=== PATIENT | female | born 2000 | race Hispanic/Latino ===

== ENCOUNTER 2020-07-16 16:23 | Emergency (ER) | payer BC, MEDICAID ==
--- OUTSIDE RECORDS SUMMARY | 2020-07-16 16:26 | XMS REPORT | Continuity of Care Document ---
:2000 Author Organization [facility] t Address [address] [place] [address] Care Team Providers Name Role Phone Alexa WHATLEY Attending Clinician Problems This patient has no known problems. Allergies, Adverse Reactions, Alerts This patient has no known allergies or adverse reactions. Medications This patient has no known medications. Procedures This patient has no known procedures. Encounters Start End Encounter Admission Attending Care Care Encounter Source Date/Time Date/Time Type Type Clinicians Facility Department ID 2020-07-11 2020-07-11 Office WAYNE Liu [id number] 10:25:12 11:32:03 Visit Heri Mckeon [id number] Scott [id number] Rolando [id number] [address] Results This patient has no known results.
--- NOTE | 2020-07-16 17:42 | RAD REPORT ---
EXAM DESCRIPTION: RAD - Chest Single View - 07/16/2020 5:36 pm CLINICAL HISTORY: Chest pain;Dyspnea Chest pain. COMPARISON: <Comparisons> FINDINGS: Portable technique limits examination quality. The lungs are grossly clear. The heart is normal in size. No displaced fractures. IMPRESSION: No acute intrathoracic process suspected.
[2020-07-16 17:47] LABS: Urine Blood 3+ (Negative); Urine Glucose Negative (Negative); Urine Protein Negative (Negative); Urine pH 6.5 (5.0-7.0)
[2020-07-16] MEDS ORDERED: NA CHLORIDE 0.9% 1,000 ML ONE (17:51)
[2020-07-16 17:53] LABS: Absolute Lymphocytes (CBC) 0.7 K/uL (0.7-4.9); Basophils % 0.2 % (0-1.3); Hematocrit 37.2 % (36.0-45.0); Lymphocytes % 5.2 % (15.3-44.8); MPV 7.5 fL (7.6-11.3); RBC Red Blood Cell Count 4.23 M/uL (3.86-4.86)
[2020-07-16 17:56] LABS: ALT/SGPT 63 U/L (12-78); AST/SGOT 80 U/L (15-37); Alkaline Phosphatase 112 U/L (45-117); BUN Blood Urea Nitrogen 11 mg/dL (7-18); Bicarbonate 28 mmol/L (21-32); Bilirubin Direct 0.4 mg/dL (0-0.2); Bilirubin Total 0.8 mg/dL (0.2-1.0); Glucose Level 84 mg/dL (74-106); Potassium 3.6 mmol/L (3.5-5.1); Protein, Total 7.7 g/dL (6.4-8.2); Sodium Level 143 mmol/L (136-145)
[2020-07-16 18:07] LABS: Urine Bacteria <20 /HPF (<20); Urine RBC <5 /HPF (NONE SEEN)
[2020-07-16 18:24] LABS: SARS-COV-2 RT PCR NEGATIVE (NEGATIVE)
[2020-07-16 18:40] LABS: Blood Morphology Comment NOT SEEN (NOT SEEN); Platelet Estimate ADEQ; White Blood Cell Scan OK (OK)
--- NOTE | 2020-07-16 18:52 | RAD REPORT ---
EXAM DESCRIPTION: CTAbdomen Pelvis W Contrast - 07/16/2020 6:35 pm CLINICAL HISTORY: Abdominal pain. right flank pain COMPARISON: No comparisons TECHNIQUE: Biphasic CT imaging of the abdomen and pelvis was performed with 100 ml non-ionic IV cont rast. All CT scans are performed using dose optimization technique as appropriate and may include automated exposure control or mA/KV adjustment according to patient size. FINDINGS: The lung bases are clear. The liver contains a solid arterial phase enhancing mass measuring 21 mm in the medial right lobe. No intra or extrahepatic biliary tree dilatation is seen. Cholelithiasis. The spleen, adrenal glands, pancreas, and kidneys are normal. No bowel obstruction, free air, free fluid or abscess. The appendix is normal. No evidence of signi ficant lymphadenopathy. No suspicious bony findings. IMPRESSION: No acute intra-abdominal or pelvic finding. Cholelithiasis. 21 mm enhancing mass in the medial right lobe of the liver is likely benign such as FNH or adenoma. R ecommend followup nonemergent MRI liver protocol for further assessment.
--- NOTE | 2020-07-16 19:37 | RAD REPORT ---
EXAM DESCRIPTION: US - Abdomen Exam Limited - 07/16/2020 7:29 pm CLINICAL HISTORY: right flank pain Abdominal pain COMPARISON: No comparisons FINDINGS: The gallbladder demonstrates multiple shadowing gallstones. No pericholecystic fluid or ga llbladder wall thickening. The common bile duct is mildly prominent measuring 6 mm. The liver demonstrates no findings of intrahepatic biliary dilatation. IMPRESSION: Extensive cholelithiasis.
--- NOTE | 2020-07-16 20:13 | EDPHYS ---
Physician Documentation [facility] Name: Dany James Age: 20 yrs Sex: Female : 2000 Arrival Date: 07/16/2020 Time: 16:24 Bed 18 Private MD: ED Physician Elisa Bauman HPI: 07/16 17:03 This 20 yrs old Female presents to ER via Ambulatory with complaints of rn Breathing Difficulty, chest pain, flank pain. 17:03 The patient has shortness of breath at rest. Onset: The symptoms/episode began/occurred rn today. Duration: The symptoms are intermittent. The patient's shortness of breath is aggravated by nothing, is alleviated by nothing. Severity of symptoms: At their worst the symptoms were moderate in the emergency department the symptoms have improved markedly. The patient has not experienced similar symptoms in the past. The patient has not recently seen a physician. [place] at beach today, having right posterior/flank pain, assoc with chest pain and sob, feels generalized weakness, symptoms much better, nearly resolved prior to arrival after taking advil. No fever. No current chest pain/sob/cough/abd pain/vomiting/diarrhea. Denies . No sick contacts. + hx of anxiety but feels different from other anxiety episodes in past. . Historical: - Allergies: 16:28 No Known Allergies; sv - Home Meds: 19:32 None [Active]; sf - PMHx: 16:28 None; sv - PSHx: 16:28 None; sv - Immunization history:: Client reports having NOT received the Covid vaccine. - Social history:: Smoking status: Patient denies any tobacco usage or history of. - Family history:: not pertinent. - Hospitalizations: : No recent hospitalization is reported. ROS: 17:03 Constitutional: Negative for fever, chills, and weight loss, Eyes: Negative for injury, rn pain, redness, and discharge, Neck: Negative for injury, pain, and swelling, Cardiovascular: Negative for palpitations, and edema, Respiratory: Negative for cough, wheezing Abdomen/GI: Negative for abdominal pain, nausea, vomiting, diarrhea, and constipation, Back: + right flank pain : Negative for injury, bleeding, discharge, and swelling, MS/Extremity: Negative for injury and deformity, Skin: Negative for injury, rash, and discoloration, Neuro: Negative for headache, weakness, numbness, tingling, and seizure. Exam: 17:03 Constitutional: This is a well developed, well nourished patient who is awake, alert, rn and in no acute distress. Ambulatory to room without assistance. Nontoxic Head/Face: Normocephalic, atraumatic. Eyes: Pupils equal round and reactive to light, extra-ocular motions intact. Lids and lashes normal. Conjunctiva and sclera are non-icteric and not injected. Cornea within normal limits. Periorbital areas with no swelling, redness, or edema. ENT: dry MM Cardiovascular: Tachycardic, regular Respiratory: No increased work of breathing, no retractions or nasal flaring. Abdomen/GI: soft, non-tender Back: No spinal tenderness. + mild to moderate tenderness right CVA Skin: Warm, dry, no rash or cyanosis MS/ Extremity: Pulses equal, no cyanosis. Neurovascular intact. Full, normal range of motion. Equal circumference. Neuro: Awake and alert, GCS 15, oriented to person, place, time, and situation. Cranial nerves II-XII grossly intact. Motor strength 5/5 in all extremities. Sensory grossly intact. Cerebellar exam normal. Normal gait. Vital Signs: 16:29 BP 126 / 88; Pulse 117; Resp 18; Temp 98.8(O); Pulse Ox 100% ; Weight 61.69 kg; Height sv 5 ft. 4 in. (162.56 cm); 18:06 BP 124 / 81; Pulse 102; Resp 18; Pulse Ox 100% on R/A; bw 19:00 BP 112 / 72; Pulse 86; Resp 18; Pulse Ox 100% ; sf 16:29 Body Mass Index 23.34 (61.69 kg, 162.56 cm) sv MDM: 16:49 Patient medically screened. rn 18:59 Transition of care: After a detail discussion of the patient's case, care is rn transferred to Elisa Bauman MD. 20:11 Differential diagnosis: Anemia Anxiety Reaction pneumonia, reactive airway disease. ma2 Data reviewed: vital signs, nurses notes. Counseling: I had a detailed discussion with the patient and/or guardian regarding: the historical points, exam findings, and any diagnostic results supporting the discharge/admit diagnosis, the presence of at least one elevated blood pressure reading (>120/80) during this emergency department visit, the need for outpatient follow up. Response to treatment: the patient's symptoms have resolved after treatment. 07/16 17:03 Order name: CBC with Diff; Complete Time: 18:53 rn 07/16 17:03 Order name: Basic Metabolic Panel; Complete Time: 18:01 rn 07/16 17:03 Order name: Urine Microscopic Only; Complete Time: 18:26 rn 07/16 17:03 Order name: LFT's; Complete Time: 18:01 rn 07/16 17:03 Order name: XRAY Chest (1 view); Complete Time: 17:47 rn 07/16 17:47 Order name: Urine Dipstick-Ancillary; Complete Time: 18:01 EDMS 07/16 17:56 Order name: CBC Smear Scan; Complete Time: 18:53 EDMS 07/16 18:02 Order name: Urine --Ancillary (enter results); Complete Time: 19:48 eb 07/16 18:02 Order name: US Abdomen Limited; Complete Time: 19:48 rn 07/16 18:02 Order name: CT Abd/Pelvis - IV Contrast Only; Complete Time: 18:53 rn 07/16 18:24 Order name: SARS-COV-2 RT PCR; Complete Time: 18:35 EDMS 07/16 16:37 Order name: EKG; Complete Time: 16:37 sv 07/16 16:37 Order name: EKG - Nurse/Tech; Complete Time: 16:37 sv 07/16 17:03 Order name: IV Start; Complete Time: 17:28 rn 07/16 17:03 Order name: Urine Test (obtain specimen); Complete Time: 17:51 rn 07/16 17:03 Order name: Urine Dipstick-Ancillary (obtain specimen); Complete Time: 17:51 rn Administered Medications: 18:11 Drug: NS 0.9% 1000 ml Route: IV; Rate: 1000 ml; Site: right antecubital; bw 19:30 Follow up: IV Status: Completed infusion; IV Intake: 1000ml sf 21:14 Follow up: Response: No adverse reaction sf Disposition: 07/16/20 20:12 Discharged to Home. Impression: Calculus of gallbladder without cholecystitis. - Condition is Stable. - Discharge Instructions: Cholelithiasis. - Prescriptions for Zofran 4 mg Oral Tablet - take 1 tablet by ORAL route every 12 hours As needed; 20 tablet. Diclofenac Sodium 75 mg Oral Tablet Sustained Release - take 1 tablet by ORAL route 2 times per day; 30 tablet. - Medication Reconciliation Form, Thank You Letter, Antibiotic Education, Prescription Opioid Use, Work release form form. - Follow up: Russ Wiley MD; When: Tomorrow; Reason: If symptoms return. Signatures: Dispatcher [employer] EDPA Vaishali Sahni RN RN sv Nieto, Roman, MD MD rn Alzahri, Mohammad, MD MD ma2 Jeremiah Longoria RN RN sf Maria Luisa Clark RN RN bw Corrections: (The following items were deleted from the chart) 17:38 17:03 CORONAVIRUS+MR.LAB.BRZ ordered. [facility] EDPA 21:15 20:12 07/16/2020 20:12 Discharged to Home. Impression: Calculus of gallbladder without sf cholecystitis. Condition is Stable. Forms are Medication Reconciliation Form, Thank You Letter, Antibiotic Education, Prescription Opioid Use. Follow up: Russ Wiley; When: Tomorrow; Reason: If symptoms return. ma2
--- NOTE | 2020-07-16 20:13 | ER ---
Nurse's Notes [facility] Name: Dany James Age: 20 yrs Sex: Female : 2000 Arrival Date: 07/16/2020 Time: 16:24 Bed 18 Private MD: Diagnosis: Calculus of gallbladder without cholecystitis Presentation: 07/16 16:28 Chief complaint: Patient states: back pain, chest pain, dyspnea started [employer] [place] the [place]. Coronavirus screen: Client denies travel out of the [place] in the last 14 days. Client presents with at least one sign or symptom that may indicate coronavirus-19. Standard/surgical mask placed on the client. Provider contacted for isolation considerations. Ebola Screen: No symptoms or risks identified at this time. Risk Assessment: Do you want to hurt yourself or someone else? Patient reports no desire to harm self or others. Onset of symptoms was July 16, 2020. 16:28 Method Of Arrival: Ambulatory 16:28 Acuity: SRIDEVI 2 16:29 Initial Sepsis Screen: Does the patient meet any 2 criteria? HR > 90 bpm. No. Patient's sv initial sepsis screen is negative. Does the patient have a suspected source of infection? No. Patient's initial sepsis screen is negative. Historical: - Allergies: 16:28 No Known Allergies; sv - Home Meds: 19:32 None [Active]; sf - PMHx: 16:28 None; sv - PSHx: 16:28 None; sv - Immunization history:: Client reports having NOT received the Covid vaccine. - Social history:: Smoking status: Patient denies any tobacco usage or history of. - Family history:: not pertinent. - Hospitalizations: : No recent hospitalization is reported. Screenin:58 Abuse screen: Denies threats or abuse. Nutritional screening: No deficits noted. bw Tuberculosis screening: No symptoms or risk factors identified. Fall Risk None identified. Assessment: 16:29 Reassessment: Received VO from Dr Owusu for EKG. sv 16:58 Pain: Denies pain. Neuro: No deficits noted. Cardiovascular: Rhythm is sinus bw tachycardia. Respiratory: Reports shortness of breath Airway is patent Respiratory effort is even, unlabored, Breath sounds are clear. GI: No deficits noted. : No deficits noted. EENT: No deficits noted. 18:06 Reassessment: Patient appears in no apparent distress at this time. Patient and/or bw family updated on plan of care and expected duration. Pain level reassessed. Patient is alert, oriented x 3, equal unlabored respirations, skin warm/dry/pink. 19:31 General: Appears in no apparent distress. comfortable, Behavior is calm, cooperative. sf Neuro: No deficits noted. Level of Consciousness is awake, alert, Oriented to person, place, time, situation. Cardiovascular: No deficits noted. Patient's skin is warm and dry. Respiratory: No deficits noted. Airway is patent Respiratory effort is even, unlabored, Respiratory pattern is regular, symmetrical. GI: No deficits noted. No signs and/or symptoms were reported involving the gastrointestinal system. : No deficits noted. No signs and/or symptoms were reported regarding the genitourinary system. Vital Signs: 16:29 BP 126 / 88; Pulse 117; Resp 18; Temp 98.8(O); Pulse Ox 100% ; Weight 61.69 kg; Height sv 5 ft. 4 in. (162.56 cm); 18:06 BP 124 / 81; Pulse 102; Resp 18; Pulse Ox 100% on R/A; bw 19:00 BP 112 / 72; Pulse 86; Resp 18; Pulse Ox 100% ; sf 16:29 Body Mass Index 23.34 (61.69 kg, 162.56 cm) sv ED Course: 16:24 Patient arrived in ED. ds1 16:28 Triage completed. sv 16:29 Arm band placed on. sv 16:37 EKG completed in triage. Results shown to MD. sv 16:49 Surjit Owusu MD is Attending Physician. rn 16:57 Maria Luisa Clark RN is Primary Nurse. bw 16:58 Patient has correct armband on for positive identification. Call light in reach. Side bw rails up X 1. Pulse ox on. NIBP on. Warm blanket given. 16:58 No provider procedures requiring assistance completed. bw 17:36 XRAY Chest (1 view) In Process Unspecified. EDMS 17:39 COVID swab sent to lab. jp3 18:35 CT Abd/Pelvis - IV Contrast Only In Process Unspecified. EDMS 19:00 Attending Physician role handed off by Surjit Owusu MD ma2 19:00 Elisa Bauman MD is Attending Physician. ma2 19:07 Primary Nurse role handed off by Maria Luisa Clark RN 19:07 Jeremiah Longoria, RN is Primary Nurse. sf 19:29 Abdomen Limited In Process Unspecified. EDMS 20:11 Russ Wiley MD is Referral Physician. ma2 21:12 IV discontinued, intact, bleeding controlled, No redness/swelling at site. Pressure sf dressing applied. Administered Medications: 18:11 Drug: NS 0.9% 1000 ml Route: IV; Rate: 1000 ml; Site: right antecubital; bw 19:30 Follow up: IV Status: Completed infusion; IV Intake: 1000ml sf 21:14 Follow up: Response: No adverse reaction sf Intake: 19:30 IV: 1000ml; Total: 1000ml. sf Outcome: 20:12 Discharge ordered by . ma2 21:12 Discharged to home ambulatory. sf 21:12 Condition: stable 21:12 Discharge instructions given to patient, Instructed on discharge instructions, follow up and referral plans. medication usage, Demonstrated understanding of instructions, follow-up care, medications, Prescriptions given X 2. 21:15 Patient left the ED. sf Signatures: Dispatcher [employer] EDMO Vaishali Sahni RN RN Maria Teresa Cabrera ds1 Surjit Owusu MD MD rn Alzahri, Mohammad, MD MD me2 Abiel Franco 3 Jeremiah Longoria, SONIA SCOTT Maria Luisa Clark RN RN Corrections: (The following items were deleted from the chart) 16:37 16:28 Acuity: SRIDEVI 3 [facility]
[2020-07-16 21:21] VITALS: TEMP 98.8; O2SAT 100
[2020-07-16 21:24] VITALS: BP 112/72
--- NOTE | 2020-07-17 07:14 | EKG ---
Test Date: 2020-07-16 Test Time: 16:34:17 Physician In Private Practice: SV MEASUREMENT RESULTS: Intervals: Rate: 103 MI: 124 QRSD: 86 QT: 340 QTc: 445 Phenix: P: 56 MI: 124 QRS: 66 T: 8 INTERPRETIVE STATEMENTS: Sinus tachycardia Nonspecific T wave abnormality Abnormal ECG No previous ECG available for comparison Electronically Signed On 07-17-20 07:13:59 CDT by Erick Acosta
== END 2020-07-16 21:15 | disposition home or self-care (01) ==
LOC: ER 16:23
DX: K80.20 Calculus of gallbladder without cholecystitis without obstruction (principal); R06.02 Shortness of breath; Z20.822 Contact with and (suspected) exposure to COVID-19
CPT/HCPCS: 93005; 85025; 80048; 36415; 81025; 80076; 0240U; 74177; 71045; 76705; 96360; 99284; Q9967; J7030; 81003; 81015

== ENCOUNTER 2020-07-19 08:06 | Day surgery (SDC) | payer BC, MEDICAID ==
[2020-07-19 08:23] LABS: Amylase 51 U/L (25-115); Lipase 87 U/L (73-393)
[2020-07-19] MEDS ORDERED: Ringers Lactate 1,000 ML IV ONE (11:21)
[2020-07-19] MEDS: CEFOXITIN/SWI 1gm 1 GM/10 ML SYR ONE ×2 (12:54→13:20)
[2020-07-19] MEDS ORDERED: dexAMETHasone 10 MG/ML VIAL ONE (12:56)
[2020-07-19] MEDS ORDERED: propofoL 200 MG/20 ML VIAL IV ONE (12:56)
[2020-07-19] MEDS ORDERED: MIDAZOLAM HCL 2 MG/2 ML INJ ONE (12:56)
[2020-07-19] MEDS ORDERED: FENTANYL CITR 100 MCG/2 ML ONE ×2 (12:56→13:52)
[2020-07-19] MEDS ORDERED: LIDOCAINE 1% MPF 5 ML VIAL ONE (12:57)
[2020-07-19] MEDS ORDERED: LIDOCAINE 1% MPF 30 ML VIAL ONE (12:57)
[2020-07-19] MEDS ORDERED: ONDANSETRON 4 MG/2 ML VIAL ONE (12:57)
[2020-07-19] MEDS ORDERED: KETOROLAC 30 MG/ML INJ ONE (12:57)
[2020-07-19] MEDS ORDERED: ROCURONIUM 50 MG/5 ML VIAL IV ONE (12:57)
[2020-07-19] MEDS ORDERED: ESMOLOL HCL 10 ML IV ONE ×2 (13:55→13:57)
[2020-07-19] MEDS: Ringers Lactate 1,000 ML IV ONE ×3 (14:00→14:05)
--- NOTE | 2020-07-19 14:27 | P.BOP ---
Preoperative diagnosis: acute cholecystitis, symptomatic cholelithiasis Postoperative diagnosis: same Primary procedure: Laparoscopic cholecystectomy Monologist: Korina Olmos (David) Estimated blood loss: <10cc Specimen: gb Findings: as above Anesthesia: General Complications: None Transferred to: Recovery Room Condition: Good
[2020-07-19] MEDS ORDERED: GLYCOPYRROLATE 0.2 MG/ML SYR ONE (14:46)
[2020-07-19] MEDS ORDERED: NEOSTIGMINE 1 MG/ML -5 ML ONE (14:46)
[2020-07-19] MEDS: HYDROMORPHONE HCL 1 MG/ML INJ ONE ×2 (15:00→15:05)
[2020-07-19 15:01] VITALS: O2SAT 100
[2020-07-19] MEDS ORDERED: PROMETHAZINE INJ 25 MG/ML AMP ONE (15:06)
[2020-07-19] MEDS ORDERED: MEPERIDINE HCL 25 MG/ML SYR ONE (15:07)
[2020-07-19 15:25] VITALS: BP 106/64; TEMP 96.8
[2020-07-19] MEDS ORDERED: CODEINE 30MG/APAP 300MG TAB PO ONE (15:30)
[2020-07-19] MEDS ORDERED: CODEINE 30MG/APAP 300MG TAB ONE (15:49)
--- NOTE | 2020-07-19 19:01 | DS ---
Date of Discharge: 07/19/2020 Diagnosis: Acute cholecystitis, symptomatic cholelithiasis. Procedure: Laparoscopic cholecystectomy. Disposition: Home. Activity: As tolerated. No heavy lifting. Plan: Follow up in my office in 1 week. Call for appointment at [phone]. Keep area dry for 48 art rs, then may shower. Keep Steri-Strip intact. NATHANAEL/CHICHO Voice ID: [id number] Report ID: [id number]
--- NOTE | 2020-07-19 19:01 | OP ---
Date of Procedure: 07/19/2020 Surgeon: Russ Wiley MD Sales Branch Manager: Korina Olmos. Preoperative Diagnosis: Acute cholecystitis, symptomatic cholelithiasis. Postoperative Diagnosis: Acute cholecystitis, symptomatic cholelithiasis. Procedure: Laparoscopic cholecystectomy. Specimen: Gallbladder. Finding: As above. Anesthesia: General plus local. Indication: This is the case of a female, who comes to us with above diagnosis. Fully explained the benefits, alternatives, and risks of laparoscopic possible open cholecystectomy, which include, but not limited to infection, bleeding, damage to adjacent structures, anesthesia complication, choledoch olithiasis, bile leak, pancreatitis, PA, and even . She also understands this may not relieve a ny symptoms. She might need more than one surgical intervention. She understood, signed a consent. Procedure In Detail: The patient was brought to the operating room and placed in supine position. A nesthesia was done without complication. Abdominal area was prepped and draped in usual sterile fash ion. Marcaine 0.5% was injected for local anesthetic followed by sharp incision of the skin in the i nfraumbilical region. The incision was carried down to fascia, which was opened under direct vision. Peritoneum was encountered, opened under direct vision. Vicryl #1 placed inside the fascia. Hasso n trocar was carefully introduced. Pneumoperitoneum was obtained. I placed 3 more trocars, 5 mm eac h one of them, 1 in the epigastric area and 2 in the right upper quadrant using same technique under direct visualization. I put a grasper in the fundus of the gallbladder. There were many adhesions o f omentum to the gallbladder, so carefully we removed that with the help of Endo Shear and Bovie caut erizer. The infundibulum was visualized. We retracted the gallbladder in the inferolateral fashion exposing the triangle of Calot and obtaining critical view. Cystic duct and cystic artery were clear ly isolated, freed circumferentially, and a connection between those and the gallbladder was clearly identified. I proceeded to ligate those by using at least 3 clips proximal, 1 clip distal, and ligat ion in middle. Same was done with the cystic artery. A small little branch of the cystic artery was also ligated using same technique. Hepatic arteries and common bile duct were protected at all time . I removed the gallbladder from the liver using Bovie cauterizer and removed from abdominal cavity using EndoCatch through the umbilical incision. The area was inspected once again. No bile leak, no bleeding. Clips were intact. At that moment, I proceeded to remove the trocars under direct vision . Deflated pneumoperitoneum. Closed the fascia with #1 Vicryl. Irrigated subcutaneous tissue, clos ed with 3-0 chromic and skin in a subcuticular fashion with 3-0 chromic and Steri-Strips on top. Spo nge count and instrument counts were correct. The patient tolerated the procedure well. The patient was sent to recovery in stable condition. NATHANAEL/CHICHO Voice ID: [id number] Report ID: [id number]
== END 2020-07-19 16:40 | disposition home or self-care (01) ==
LOC: OR 08:06
PROVIDERS: ATTEND Surgery
PROC: 0FT44ZZ Resection of Gallbladder, Percutaneous Endoscopic Approach (ICD-10-PCS; principal; 2020-07-19 13:45)
DX: K80.10 Calculus of gallbladder with chronic cholecystitis without obstruction (principal)
CPT/HCPCS: 36415; 82150; 81025; 83690; 47562; J2704; J2250; J3010 ×2; J1100; J2175; J1170; J2710; J7120 ×2; J2405; 88304; J2550

== ENCOUNTER 2023-03-05 04:41 | Emergency (ER) | payer BC, SELFPAY ==
--- OUTSIDE RECORDS SUMMARY | 2023-03-05 05:08 | XMS REPORT | Continuity of Care Document ---
:2000 Author Organization [facility] t Address [address] [place] [address] [address] [place] [address] Care Team Providers Name Role Phone Ella Spann Primary Care Physician [phone] ROQUE WATTS Attending Clinician Unavailable ROQUE WATTS Attending Clinician Unavailable RAZ RILEY Attending Clinician Unavailable ELLA GTZ Attending Clinician Unavailable Ella Spann Attending Clinician Raz Riley MD Attending Clinician LORENA NARANJO Attending Clinician Unavailable Lorena Pitts Attending Clinician CHENG NOLASCO Attending Clinician Unavailable YOUSUF BIRCH Attending Clinician Unavailable YOUSUF BIRCH Attending Clinician Unavailable James Veloz MD Attending Clinician Juaquin Daniel MD Attending Clinician [phone] Jessi Arturo HUGHES Attending Clinician Doctor Unassigned, [place] Attending Clinician Unavailable ARTURO BOWEN Attending Clinician Unavailable Risk, [facility] Provider/High Attending Clinician Unavailabl e EDEMEKONG, PETER Attending Clinician Unavailable HAWA LEOS Attending Clinician Unavailable Hawa Leos MD Attending Clinician RAFAELA NOVOA Attending Clinician Unavailable Rafaela Novoa MD Attending Clinician SARAH SANTANA Attending Clinician Unavailable Sarah Santana CNM Attending Clinician Lab, [facility] Attending Clinician Unavailable Visit, Nurse Attending Clinician Unavailable Etahn Davidson PA-C Attending Clinician ADAN VIDAL Attending Clinician Unavailable ADAN VIDAL Attending Clinician Unavailable Risk, Pas-Rmchp Physician/High Attending Clinician UnavailAry Lane Attending Clinician 1, [facility] Us Room Attending Clinician Unavailable Nelsy Holden MD Attending Clinician [phone] NELSY HOLDEN Attending Clinician Unavailable Ary Amaya RN Attending Clinician Unavailable NICOL BLOUNT Attending Clinician Unavailable Nicol Blount MD Attending Clinician Unknown, Attending Attending Clinician Unavailable DEE GOMEZ Attending Clinician Unavailable ARY NORTON Attending Clinician Unavailable ANNABELLA SOSA Attending Clinician Unavailable Juan Antonio Pena MD Attending Clinician ETHAN DAVIDSON Attending Clinician Unavailable Pcp-Lab Attending Clinician Unavailable Isaak Castanon MD Attending Clinician ISAAK CASTANON Attending Clinician Unavailable 2, Adc Lab Attending Clinician Unavailable Lucinda Sanchez PA-C Attending Clinician LUCINDA SANCHEZ Attending Clinician Unavailable BRYAN SLATER Attending Clinician Unavailable BRYAN SLATER Attending Clinician Unavailable Faculty, [facility] Attending Clinician Unavailable Bryan Slater MD Attending Clinician Bryan Manuel RN Attending Clinician Unavailable EVELIN DICKERSON Attending Clinician Unavailable EVELIN DICKERSON Attending Clinician Unavailable GIGI BENITEZ Attending Clinician Unavailable GIGI BENITEZ Attending Clinician Unavailable MARQUIS HALL Attending Clinician Unavailable Rafael AGACNPMarquis Attending Clinician Olga WHATLEY, Brandon Attending Clinician Arpita SCOTT, Olamide Attending Clinician Unavailable Only, Ang Db Test Attending Clinician Unavailable Green DIRECTOR SEMICONDUCTOR, Lester Attending Clinician GREENLESTER Attending Clinician Unavailable Ebcathy DIRECTOR SEMICONDUCTOR, Stanley Attending Clinician STANLEY SOLORZANO Attending Clinician Unavailable Brandon Bowers MD Attending Clinician Jeanmarie DIRECTOR SEMICONDUCTOR, Annabella Attending Clinician Martin SCOTT, He Duncan Attending Clinician Unavailable Bhanu Holland Attending Clinician Unavailable Only, [facility] Main Test Attending Clinician Unavailable Call, [facility] Phone Attending Clinician Unavailable Kwesi SCOTT, Yolanda Taylor Attending Clinician Unavailable ADIN MANN Attending Clinician Unavailable Fercho Mercado DO Attending Clinician Adin Mann MD Attending Clinician HEBERT ACKERMAN Attending Clinician Unavailable Hebert Ackerman MD Attending Clinician Ivan Valdovinos Attending Clinician Unavailable Iesha Cast Attending Clinician Unavailable Nurse, [facility] Pob Immunization Attending Clinician Unavailable Naeem Slater DO Attending Clinician NAEEM SLATER Attending Clinician Unavailable Perry LANCE Attending Clinician Unavailable NatalioPerry Grigsby Attending Clinician Nurse, [facility] Attending Clinician Unavailable Carmelita White MD Attending Clinician Pob, [facility] Lab Main Attending Clinician Unavailable Nurse, [facility] Attending Clinician Unavailable CARMELITA WHITE Attending Clinician Unavailable Kailey Burk Attending Clinician Carole Dsouza MD Attending Clinician CAROLE DSOUZA Attending Clinician Unavailable Provider, [facility] Attending Clinician Unavailable UNKNOWN, ATTENDING Attending Clinician Unavailable Aly LOPEZ, Devin Attending Clinician Kia Naranjo DO Attending Clinician Only, [facility] Test Attending Clinician Unavailable June Gomez MD Attending Clinician JUNE GOMEZ Attending Clinician Unavailable Lab, [facility] Pob I Attending Clinician Unavailable DEVIN GANNON Attending Clinician Unavailable Nurse, [facility] Attending Clinician Unavailable GUS HERNANDEZ Attending Clinician Unavailable Jeff AUXILIARY ENGINEER, Farrukh F Attending Clinician Unavailable Gus Hernandez MD Attending Clinician Jeff AUXILIARY ENGINEER, Aixa Amador Attending Clinician Unavailable Cecilia PTSherie Attending Clinician Unavailable Juan PT, Donna Damon Attending Clinician Unavailable Natanael [facility], Norma Taylor Attending Clinician , [facility] Echo Room 1 - Attending Clinician Unavailable Myke WHATLEY, Ghazal Schwab Attending Clinician Xavier WHATLEY, Lili Attending Clinician LILI GONZALES Attending Clinician Unavailable Arsen Israel MD Attending Clinician Serena Berg RN Attending Clinician Aida Sumner MD Attending Clinician Room, [facility] Attending Clinician Unavailable Ultrasound, [facility] Attending Clinician Unavailable Jose David Monroe MD Attending Clinician JUNE PARTIDA Attending Clinician Unavailable JUNE PARTIDA Attending Clinician Unavailable June Partida MD Attending Clinician FELICITA RUTHERFORD Attending Clinician Unavailable Nurse, [facility] Attending Clinician Unavailable ROQUE WATTS Admitting Clinician Unavailable HAWA LEOS Admitting Clinician Unavailable JUNE PARTIDA Admitting Clinician Unavailable YOUSUF BIRCH Admitting Clinician Unavailable Hawa Leos MD Admitting Clinician RAFAELA NOVOA Admitting Clinician Unavailable Rafaela Novoa MD Admitting Clinician MARQUIS HALL Admitting Clinician Unavailable BRANDON BOWERS Admitting Clinician Unavailable ADIN MANN Admitting Clinician Unavailable Adin Mann MD Admitting Clinician HEBERT ACKERMAN Admitting Clinician Unavailable Columba Huber Admitting Clinician Unavailable Dank Kwok Admitting Clinician Unavailable BRANDON ESPINOZA Admitting Clinician Unavailable June Partida MD Admitting Clinician FELICITA RUTHERFORD Admitting Clinician Unavailable Payers Payer Name Policy Type Policy Number Effective Date Expiration Date S [place] [employer] [place] [id number] 2012 00:00:00 [facility] [id number] 2019 MEDICAID 00:00:00 Problems Condition Condition Condition Status Onset Resolution Last Treating Co mments Source Name Details Category Date Date Treatment Clinician Date Overweight Overweight Disease Active U nivers (BMI (BMI 9-27 ity of 25.0-29.9) 25.0-29.9[place] [facility] 37 weeks 37 weeks Disease Active Unive rs gestation gestation 8-04 ity of of of 00:00: [place] 00 [facility] Anemia of Anemia of Disease Active Uni vers mother in mother in 6-01 ity of , , [place] [facility] of [facility] of Disease Active U nivers depression depression 3-21 it y of 00:00: [place] [facility] History of History of Disease Active U nivers 3-08 ity of delivery delivery 00:00: [place] 00 [facility] Vaginal Vaginal Disease Active Univers discharge discharge 1-17 ity of in in 00:00: [place] 00 [facility] in first in first Branch trimester trimester 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 1-17 ity of 00:00: [place] 00 [facility] 9 weeks 9 weeks Disease Active 2022-0 Univers gestation gestation 1-17 ity of of of 00:00: [place] 00 [facility] Vaginal Vaginal Disease Active 2021- Univers discharge discharge 9-12 ity of 00:00: [place] 00 [facility] Screen for Screen for Disease Active U nivers sexually sexually 9-12 ity of transmitte transmitte [place] d diseases d diseases 00 Me dical Branch Vaginal Vaginal Disease Active Univers itching itching 9-12 ity of 00:00: [place] 00 Medical Branch 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:00: [place] tumor tumor 00 Medical Branch Right-side Right-side Disease Active U nivers d d 6-09 ity of nontraumat nontraumat 00:00[place] ic ic 00 Medical intracereb intracereb Br anch ral 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 Migraine Migraine Disease Active Unive rs variant variant 6-09 ity of with with 00:00: [place] headache headache 00 Medica l Branch Brain Brain Disease Active Univers tumor tumor 5-10 ity of 00:00: [place] 00 Medical Branch Acute Acute Disease Active 2020-04 Univers midline midline 2-08 ity of low back low back 00:00: [place] pain pain 00 Medical without without Branch sciatica sciatica Acute Acute Disease Active 2020-04 Univers bilateral bilateral 2-08 ity of thoracic thoracic 00:00: [place] back pain back pain 00 Medi minal Branch Bilateral Bilateral Disease Active 2020-04 Uni vers wrist pain wrist pain 2-08 it y of 00:00: [place] 00 Medical Branch Liver Liver Disease Active Univers mass, mass, 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 00:00: [place] 00 [facility] 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 nivers depression depression 5-19 it y of 00:00: [place] 00 Medical Branch Adjustment Adjustment Disease Active U nivers insomnia insomnia 5-14 ity of 00:00: [place] 00 Medical Branch Contusion Contusion Disease Active Uni vers of liver, of liver, 4-22 ity of sequela sequela 00:00: [place] 00 Medical Branch Disease Active Univers control control 4-06 ity of counseling counseling 00:00: [place] 00 [facility] Need for Need for Disease Active Unive rs HPV HPV 1-05 ity of vaccinatio vaccinatio 00:[place] n n 00 [facility] Grief Grief Disease Active 2019-04 Univers reaction reaction 2-23 ity of 00:00: [place] 00 Medical Branch Anxiety Anxiety Disease Active Univers 9-03 ity of 00:00: [place] [address] Medical Branch Atypical Atypical Disease Active Unive rs chest pain chest pain 8-13 it y of 00:00: [place] [address] Medical Branch Mid back Mid back Disease Active Unive rs pain pain 8-13 ity of 00:00: [place] [address] Medical Branch Sinus Sinus Disease Active 2019- Univers arrhythmia arrhythmia 8-13 it y of seen on seen on 00:00: [place] electrocar electrocar 00 Me dical diogram diogram Branch Supervisio Supervisio Disease Active U nivers n of high n of high 1-31 ity of risk risk 00:00: [place] 00 Medi minal in second in second Bran ch trimester trimester Feeling of Feeling of Disease Active U nivers incomplete incomplete 05-07 it y of bladder bladder 00:00: [place] emptying emptying 00 Medica l Branch Chronic Chronic Disease Active 2018-04 Univers migraine migraine 1-27 ity of without without 00:00: [place] aura aura 00 Medical without without Branch status status migrainosu migrainosu s, not s, not intractabl intractabl e e Hx of Hx of Disease Active 2018-04 Univers suicide suicide 0-30 ity of attempt attempt 00:00: [place] [address] Medical Branch Nausea Nausea Disease Active Univers 7-17 ity of 00:00: [place] [address] Medical Branch Anxiety Anxiety Disease Active Univers and and 7-16 ity of depression depression 00:[place]: [place] [facility] [place] Obesity Obesity Disease Active Univers (BMI (BMI 2-06 ity of 30-39.9) 30-39.9) 00:00: [address] Branch Allergies, Adverse Reactions, Alerts Allergy Allergy Status Severity Reaction(s) Onset Inactive Treating Comm ents Source Name Type Date Date Clinician No Known DA Active [facility] [address] NO KNOWN Drug Active Univers ALLERGIE Class ity of S [facility] [place] [facility] Social History Social Habit Start Date Stop Date Quantity Comments Source ASSERTION 2022-03-02 University of 00:00:00 [facility] [place] [facility] History of tobacco Passive smoker Un iversity of use [facility] [place] [facility] Gender identity Universit y of [facility] Sexual orientation Univer sity of [facility] History [facility] o f Alcohol Frequency [facility] edical Branch History [facility] o f Alcohol Std Drinks [place] [facility] [place] History [facility] o f Alcohol Binge [facility] al Branch Alcohol intake 2023-01-01 2023-01-01 Ex-drinker University 00:00:00 00:00:00 (finding) [facility] [place] [facility] History of Social 2022-12-02 2022-12-02 Univers ity of function 00:00:00 00:00:00 [facility] [place] [facility] Exposure to 2022-08-18 2022-08-28 Not sure University SARS-CoV-2 (event) 00:00:00 09:14:00 [facility] [place] [facility] Tobacco use and 2022-04-15 2022-04-15 Smokeless tobacco Un iversity of exposure 00:00:00 00:00:00 non-user [facility] [place] [facility] Alcohol Comment 2021-02-05 2021-02-05 social / Universit y of 00:00:00 00:00:00 occasional [facility] [place] [facility] Sex Assigned At [birth year] Universit y of 00:00:00 00:00:00 [facility] [place] [facility] Smoking Status Start Date Stop Date Source Never smoked tobacco [facility] Medications Ordered Filled Start Stop Current Ordering Indication Dosage Frequency Signature Comments Components Source Medication Medication Date Date Medication? Clinician (SIG) Name Name 2022- Take by Unive rs vit 8- 08-06 mouth. ity of no.124/iron 07:56: 00:00 [place] /folic 32 :00 Medical ( Branch VITAMIN ORAL) Yes [id number] 1{tbl} Take 1 Univers vitamin 8- tablet by ity of w/FA tablet 00:00: mouth [place] the Medical morning. Branch docusate Yes [id number] 200mg Take 2 U nivers 100 mg 8-06 capsules ity of capsule 00:00: by mouth [place] 00 once daily Medical as needed Branch for Constipati on. ferrous Yes [id number] 325mg Take 1 Un william sulfate 325 8-06 tablet by ity of mg (65 mg 00:00: [place] 00 the Medical tablet morning Branch and 1 tablet in the evening. ibuprofen 2022- Yes [id number] 600mg Take 1 Univers 600 mg 8-06 tablet by ity of tablet 00:00: mouth [place] 00 every 6 Medical (six) Branch hours as needed (Pain). Take with food or milk. 2022-0 Yes [id number] 1{tbl} Take 1 Univers vitamin 8-06 tablet by ity of w/FA tablet 00:00: mouth [place] 00 the Medical morning. Branch docusate 2022-0 Yes [id number] 200mg Take 2 U nivers 100 mg 8-06 capsules ity of capsule 00:00: by mouth [place] 00 once daily Medical as needed Branch for Constipati on. ferrous 2022-0 Yes [id number] 325mg Take 1 Un william sulfate 325 8-06 tablet by ity of mg (65 mg 00:00: [place] iron[place] 00 the Medical tablet morning Branch and 1 tablet in the evening. ibuprofen 2022-0 Yes [id number] 600mg Take 1 Univers 600 mg 8-06 tablet by ity of tablet 00:00: mouth [place] 00 every 6 Medical (six) Branch hours as needed (Pain). Take with food or milk. 2022-0 Yes [id number] 1{tbl} Take 1 Univers vitamin 8-06 tablet by ity of w/FA tablet 00:00: mouth [place] 00 the Medical morning. Branch docusate 2022-0 Yes [id number] 200mg Take 2 U nivers 100 mg 8-06 capsules ity of capsule 00:00: by mouth [place] 00 once daily Medical as needed Branch for Constipati on. ferrous 2022-0 Yes [id number] 325mg Take 1 Un william sulfate 325 8-06 tablet by ity of mg (65 mg 00:00: [place] iron[place] 00 the Medical tablet morning Branch and 1 tablet in the evening. ibuprofen 2022-0 Yes [id number] 600mg Take 1 Univers 600 mg 8-06 tablet by ity of tablet 00:00: mouth [place] 00 every 6 Medical (six) Branch hours as needed (Pain). Take with food or milk. 2022-0 Yes [id number] 1{tbl} Take 1 Univers vitamin 8-06 tablet by ity of w/FA tablet 00:00: mouth [place] 00 the Medical morning. Branch docusate 2022-0 Yes [id number] 200mg Take 2 U nivers 100 mg 8-06 capsules ity of capsule 00:00: by mouth [place] 00 once daily Medical as needed Branch for Constipati on. ferrous 2023-0 Yes [id number] 325mg Take 1 Un william sulfate 325 8-06 tablet by ity of mg (65 mg 00:00: [place] iron[place] 00 the Medical tablet morning Branch and 1 tablet in the evening. ibuprofen 2023-0 Yes [id number] 600mg Take 1 Univers 600 mg 8-06 tablet by ity of tablet 00:00: mouth [place] 00 every 6 Medical (six) Branch hours as needed (Pain). Take with food or milk. 2022-0 Yes [id number] 1{tbl} Take 1 Univers vitamin 8-06 tablet by ity of w/FA tablet 00:00: mouth in [place] 00 the Medical morning. Branch docusate 2022-0 Yes [id number] 200mg Take 2 U nivers 100 mg 8-06 capsules ity of capsule 00:00: by mouth [place] 00 once daily Medical as needed Branch for Constipati on. ferrous 2022-0 Yes [id number] 325mg Take 1 Un william sulfate 325 8-06 tablet by ity of mg (65 mg 00:00: [place] iron[place] 00 the Medical tablet morning Branch and 1 tablet in the evening. ibuprofen 2022-0 Yes [id number] 600mg Take 1 Univers 600 mg 8-06 tablet by ity of tablet 00:00: mouth [place] 00 every 6 Medical (six) Branch hours as needed (Pain). Take with food or milk. 2022-0 Yes [id number] 1{tbl} Take 1 Univers vitamin 8-06 tablet by ity of w/FA tablet 00:00: mouth in [place] 00 the Medical morning. Branch docusate 2022-0 Yes [id number] 200mg Take 2 U nivers 100 mg 8-06 capsules ity of capsule 00:00: by mouth [place] 00 once daily Medical as needed Branch for Constipati on. ferrous 2023-0 Yes [id number] 325mg Take 1 Un william sulfate 325 8-06 tablet by ity of mg (65 mg 00:00: [place] iron[place] 00 the Medical tablet morning Branch and 1 tablet in the evening. ibuprofen 2023-0 Yes [id number] 600mg Take 1 Univers 600 mg 8-06 tablet by ity of tablet 00:00: mouth [place] 00 every 6 Medical (six) Branch hours as needed (Pain). Take with food or milk. 2022-0 Yes [id number] 1{tbl} Take 1 Univers vitamin 8-06 tablet by ity of w/FA tablet 00:00: mouth [place] 00 the Medical morning. Branch ferrous 2022-0 Yes [id number] 325mg Take 1 Un william sulfate 325 8-06 tablet by ity of mg (65 mg 00:00: [place] iron[place] 00 the Medical tablet morning Branch and 1 tablet in the evening. 2022-0 Yes [id number] 1{tbl} Take 1 Univers vitamin 8-06 tablet by ity of w/FA tablet 00:00: mouth in [place] 00 the Medical morning. Branch ferrous 2022-0 Yes [id number] 325mg Take 1 Un william sulfate 325 8-06 tablet by ity of mg (65 mg 00:00: [place] iron[place] 00 the Medical tablet morning Branch and 1 tablet in the evening. 2022-0 Yes [id number] 1{tbl} Take 1 Univers vitamin 8-06 tablet by ity of w/FA tablet 00:00: mouth [place] 00 the Medical morning. Branch ferrous 2022-0 Yes [id number] 325mg Take 1 Un william sulfate 325 8-06 tablet by ity of mg (65 mg 00:00: [place] iron[place] 00 the Medical tablet morning Branch and 1 tablet in the evening. docusate 2022-2022- No [id number] 200mg Take 2 Univers 100 mg 8- capsules ity of capsule 00:00: 00:00 by mouth [place] 00 :00 once daily Medical as needed Branch for Constipati on. ibuprofen 2022-0 3- No [id number] 600mg Take 1 Univers 600 mg 11-10- tablet by ity of tablet 00:00: 00:00 mouth [place] 00 :00 every 6 Medical (six) Branch hours as needed (Pain). Take with food or milk. docusate 2022-0 2022- No [id number] 200mg Take 2 Univers 100 mg 8-09 13- capsules ity of capsule 00:00: 00:00 by mouth [place] 00 :00 once daily Medical as needed Branch for Constipati on. ibuprofen 2022-0 2022- No [id number] 600mg Take 1 Univers 600 mg 11-10 tablet by ity of tablet 00:00: 00:00 mouth [place] 00 :00 every 6 Medical (six) Branch hours as needed (Pain). Take with food or milk. rho(D) 2022-0 Yes 300ug 300 mcg, Univer s immune 11-09 Intramuscu ity of globulin 16:32: lar, ONCE, [place] as (RHOGAM) 45 For 1 Medical syringe 300 dose, Branch mcg Conditiona l, Routine ibuprofen 2022-0 Yes 600mg 600 mg, Univ ers (IBU) 11-09 Oral, ity of tablet 600 16:32: Q6HPRN, [place] mg 41 Starting Medical on [facility] Branch 11/09/22 at 1132, Until Discontinu ed, Routine, Pain (scale 4-6) acetaminoph 2022-0 Yes 650mg 650 mg, Un william en 11-09 Oral, ity of (TYLENOL) 16:32: Q6HPRN, [place] tablet 650 41 Starting Medic al mg on [facility] Branch 11/09/22 at 1132, Until Discontinu ed, Routine, Pain (scale 1-3) diphenhydrA 2022-0 Yes 25mg 25 mg, Univ ers MINE 11-09 Oral, ity of (BENADRYL) 16:32: Q6HPRN, [place] tablet 25 41 Starting Medica l mg on [facility] Branch 11/09/22 at 1132, Until Discontinu ed, Routine, Sleep, Itching ondansetron 2022-0 Yes 4mg 4 mg, Slow Univers (ZOFRAN 11-09 IV Push, ity of (PF)) 16:32: Q8HPRN, [place] injection 4 41 Starting Medi minal mg on Sat Branch 11/09/22 at 1132, Until Discontinu ed, Routine, Nausea and Vomiting (N/V) simethicone 2022-0 Yes 160mg 160 mg, Un william (GAS RELIEF 11-09 Oral, ity of (SIMETHICON 16:32: PC+HSPRN, [place] E)) 41 Starting Medical chewable on [facility] Branch tablet 160 11/09/22 at mg 1132, Until Discontinu ed, Routine, Gas docusate 2022-0 Yes 200mg 200 mg, Unive rs (COLACE) 11-09 Oral, ity of capsule 200 16:32: QDAILYPRN, [place] mg 41 Starting Medical on Sat Branch 11/09/22 at 1132, Until Discontinu ed, Routine, Constipati on magnesium Yes 30mL 30 mL, Univer s hydroxide 8 Oral, ity of (MILK OF 16:32: QDAILYPRN, [place] as MAGNESIA) 41 Starting Medica l 400 mg/5 mL on Sat Branch suspension 11/09/22 at 30 mL 1132, Until Discontinu ed, Routine, Constipati on benzocaine- Yes Topical, Un william menthol 11-09 PRN, ity of (DERMOPLAST 16:32: Starting [place] 20-0.5 % 41 on Sat Medical topical 11/09/22 at Branch spray 1132, Until Discontinu ed, Routine, [facility]ineum discomfort [facility] mouth. ity of no.124/iron 07:49: [place] /folic 21 Medical ( Branch VITAMIN ORAL) PIB 2022- No Epidural, Univers ropivacaine 11-09-05 ONCE INTRA i ty of 0.2 % 06:35: 15:04 PROCEDURE, [place] (NAROPIN 00 :14 Starting Medical (PF)) on Sat Branch epidural 11/09/22 at infusion 0135, Until 11/09/22 at 1004, Routine, Intra-op lidocaine-e 2022- No Intravenou Univers pinephrine 11-09 08-05 s, ONCE ity o f (XYLOCAINE 06:34: 15:04 INTRA [place] W/EPINEPHRI 00 :14 PROCEDURE, [place]) 2 Starting Branch %-1:200,000 on Sat injection 11/09/22 at 0134, Until 11/09/22 at 1004, Routine, Intra-op lactated 2022- No 500mL at 999 Unive rs ringers IV 11-09 08-05 mL/hr, 500 it y of infusion 06:00: 06:45 mL, IV [place] 500 mL 00 :15 Infusion, Medical ONCE, 1 Branch dose, On 11/09/22 at 0100, Routine lactated 2022- No 500mL at 999 Unive rs ringers IV 11-09 mL/hr, 500 it y of infusion 05:12: 07:24 mL, IV [place] 500 mL 54 :57 Infusion, Medical PRN - SEE Branch INSTRUCTIO NS, 1 dose, Starting on 11/09/22 at 0012, Until 11/09/22 at 0224, Routine sodium 2022- No 30mL 30 mL, Univers citrate-cit 11-09 Oral, ity of adina acid 05:12: 06:11 PRE-PROCED [place] (BICITRA) 54 :00 URE ONCE, Medic al 500-334 1 dose, Branch mg/5 mL Starting solution 30 on Sat mL 11/09/22 at 0012, Until 11/09/22 at 0111, Routine, Surgery/Pr ocedure proMETHazin 2022- No 12.5mg 12.5 mg, Univers e 11-09 IV ity of (PHENERGAN) 03:00: 03:57 Piggyback, [place] 12.5 mg in 00 :00 at 200 Medical NS 50 mL IV mL/hr Branch piggyback Administer (CNR) over 15 Minutes, ONCE, 1 dose, On Fri11/08/22 at 2200, Routine morpHINE (4 2022- No 4mg 4 mg, Slow Univers mg/mL) 11-09 IV Push, ity of injection 4 03:00: 02:05 ONCE, 1 [place] mg 00 :00 dose, On Medical Fri11/08/22 Branch at 2200, Routine oxytocin 2022- No 2mU/min at 2-40 Un william (PITOCIN) 11-09-05 mL/hr, IV ity of 30 units in 01:50: 16:32 Infusion, [place] NS 500 mL 52 :44 TITRATE, Medica l IV infusion Starting Bran ch on Fri11/08/22 at 2050, Until 11/09/22 at 1132, MARRY [id number] IV 2022- No 1000mL at 1-125 U nivers infusion 11-09 08-05 mL/hr, IV ity o f 1,000 mL 00:48: 16:32 Infusion, [place] 54 :44 TITRATE, Medical Starting Branch on Fri11/08/22 at 1948, Until 11/09/22 at 1132, Routine terbutaline 2022- No .25mg 0.25 mg, [facility] (BRETHINE) 10-16 0712 Subcutaneo it y of injection 23:00: 22:54 [place], [place]CE, [place] 0.25 mg 00 :00 1 dose, On Medica l [facility] Branch 10/16/22 at 1800, Routine Yes Take by Univer s vit 7-12 mouth. ity of no.124/iron 20:26: [place] /folic 40 Medical ( Branch VITAMIN ORAL) Yes Take by Univer s vit 7-12 mouth. ity of no.124/iron 20:26: [place] /folic 40 Medical ( Branch VITAMIN ORAL) Yes Take by Univer s vit 7-12 mouth. ity of no.124/iron 20:26: [place] /folic 40 Medical ( Branch VITAMIN ORAL) Yes Take by Univer s vit 7-12 mouth. ity of no.124/iron 20:26: [place] /folic 40 Medical ( Branch VITAMIN ORAL) Yes Take by Univer s vit 7-12 mouth. ity of no.124/iron 20:26: [place] /folic 40 Medical ( Branch VITAMIN ORAL) Yes Take by Univer s vit 7-12 mouth. ity of no.124/iron 20:26: [place] /folic 40 Medical ( Branch VITAMIN ORAL) Yes Take by Univer s vit 7-12 mouth. ity of no.124/iron 20:26: [place] /folic 40 Medical ( Branch VITAMIN ORAL) Yes Take by Univer s vit 7-12 mouth. ity of no.124/iron 20:26: [place] /folic 40 Medical ( Branch VITAMIN ORAL) Yes Take by Univer s vit 7-12 mouth. ity of no.124/iron 20:26: [place] /folic 40 Medical ( Branch VITAMIN ORAL) Yes Take by Univer s vit 7-12 mouth. ity of no.124/iron 20:26: [place] /folic 40 Medical ( Branch VITAMIN ORAL) terbutaline 2022- No .25mg 0.25 mg, [facility] (BRETHINE) 10-11 Subcutaneo it y of injection 23:15: 22:30 [place], ONCE, [place] 0.25 mg 00 :00 1 dose, On Medica l Fri10/11/22 Branch at 1815, Routine NaCl 0.9% Yes 1000mL at 125 Univ ers (NS) IV 7-07 mL/hr, IV ity of infusion 21:45: [place] 1,000 mL 00 CONTINUOUS Medic al , Starting Branch on Fri10/11/22 at 1645, Until Discontinu ed, Routine cefTRIAXone 2022- No 1000mg 1,000 mg, Univers (ROCEPHIN) 10-11 IV ity of 1,000 mg in 21:30: 21:25 [place], [place] NaCl 0.9% 00 :00 ONCE, 1 Medical (NS) 100 mL dose, On Bran ch MINI-BAG Fri10/11/22 at 1630, Administer over 30 Minutes, 100 mL
Reas on for Anti-Infec tive: Documented Infection< br>Documen marko Infection Site: Urine<br&g t;Duration of Therapy: Other (see Comments) terbutaline 2022- No .25mg 0.25 mg, [facility] (BRETHINE) 10-11 Subcutaneo it y of injection 21:30: 20:44 [place], ONCE, [place] 0.25 mg 00 :00 1 dose, On Medica l Fri10/11/22 Branch at 1630, Routine NaCl 0.9% 2022- No 1000mL at 999 Uni vers (NS) bolus 10-11 mL/hr, ity of infusion 20:15: 19:27 1,000 mL, [place] 1,000 mL 00 :00 IV Medical Infusion, Branch ONCE, 1 dose, On Fri10/11/22 at 1515, STAT Yes Take by Univer s vit 10-11 mouth. ity of no.124/iron 20:09: [place] /folic 40 Medical ( Branch VITAMIN ORAL) NaCl 0.9% 2022- No 1000mL at 999 Uni vers (NS) bolus 7-07 07-07 mL/hr, ity of infusion 19:15: 18:18 1,000 mL, [place] 1,000 mL 00 :00 IV Medical Infusion, Branch ONCE, 1 dose, On Fri10/11/22 at 1415, STAT Nitrofurant 2022-0 Yes [id number] 100mg Take 1 Univers oin&Nit. 7-07 capsule by ity o f Macrocryst 00:00: mouth in [place] 100 mg 00 the Medical capsule morning Branch and 1 capsule in the evening. Nitrofurant 2022-0 Yes [id number] 100mg Take 1 Univers oin&Nit. 7-07 capsule by ity o f Macrocryst 00:00: mouth in [place] 100 mg 00 the Medical capsule morning Branch and 1 capsule in the evening. Nitrofurant 2022-0 Yes [id number] 100mg Take 1 Univers oin&Nit. 7-07 capsule by ity o f Macrocryst 00:00: mouth in [place] 100 mg 00 the Medical capsule morning Branch and 1 capsule in the evening. Nitrofurant 2022-0 Yes [id number] 100mg Take 1 Univers oin&Nit. 7-07 capsule by ity o f Macrocryst 00:00: mouth in [place] 100 mg 00 the Medical capsule morning Branch and 1 capsule in the evening. Nitrofurant 2022-0 Yes [id number] 100mg Take 1 Univers oin&Nit. 7-07 capsule by ity o f Macrocryst 00:00: mouth in [place] 100 mg 00 the Medical capsule morning Branch and 1 capsule in the evening. Nitrofurant 0 2023- No [id number] 100mg Take 1 Univers oin&Nit. 7-07 07-27 capsule by ity of Macrocryst 00:00: 00:00 mouth in [place] 100 mg 00 :00 the Medical capsule morning Branch and 1 capsule in the evening. Iron Fum & 2022-0 Yes [id number] 1{capsu Take 1 Univers P-FA-Vit B 6-01 le} capsule by ity of & C No.9 00:00: mouth in [place] (INTEGRA 00 the Medical PLUS) 125 morning. Branch mg iron- 1 mg Cap Iron Fum & 2022-0 Yes [id number] 1{capsu Take 1 Univers P-FA-Vit B 6-01 le} capsule by ity of & C No.9 00:00: mouth in [place] (INTEGRA 00 the Medical PLUS) 125 morning. Branch mg iron- 1 mg Cap Iron Fum & 2023-0 Yes [id number] 1{capsu Take 1 Univers P-FA-Vit B 6-01 le} capsule by ity [employer] & C No.9 00:00: mouth in [place] (INTEGRA 00 the Medical PLUS) 125 morning. Branch mg iron- 1 mg Cap Iron Fum & 2023-0 Yes 1{capsu Take 1 Univers P-FA-Vit B 6-01 le} capsule by ity [employer] & C No.9 00:00: mouth in [place] (INTEGRA 00 the Medical PLUS) 125 morning. Branch mg iron- 1 mg Cap Iron Fum & 2023-0 Yes [id number] 1{capsu Take 1 Univers P-FA-Vit B 6-01 le} capsule by itWARSTUFF & C No.9 00:00: mouth in [place] (INTEGRA 00 the Medical PLUS) 125 morning. Branch mg iron- 1 mg Cap Iron Fum & 2023-0 Yes 1{capsu Take 1 Univers P-FA-Vit B 6-01 le} capsule by ity [employer] C No.9 00:00: mouth in [place] (INTEGRA 00 the Medical PLUS) 125 morning. Branch mg iron- 1 mg Cap Iron Fum & 2023-0 Yes [id number] 1{capsu Take 1 Univers P-FA-Vit B 6-01 le} capsule by itWARSTUFF & C No.9 00:00: mouth in [place] (INTEGRA 00 the Medical PLUS) 125 morning. Branch mg iron- 1 mg Cap Iron Fum & 2023-0 Yes [id number] 1{capsu Take 1 Univers P-FA-Vit B 6-01 le} capsule by ity [employer] & C No.9 00:00: mouth in [place] (INTEGRA 00 the Medical PLUS) 125 morning. Branch mg iron- 1 mg Cap Iron Fum & 2023-0 Yes [id number] 1{capsu Take 1 Univers P-FA-Vit B 6-01 le} capsule by ity [employer] & C No.9 00:00: mouth in [place] (INTEGRA 00 the Medical PLUS) 125 morning. Branch mg iron- 1 mg Cap Iron Fum & 2023-0 Yes 1{capsu Take 1 Univers P-FA-Vit B 6-01 le} capsule by ity of & C No.9 00:00: mouth in [place] (INTEGRA the Medical PLUS) 125 morning. Branch mg iron- 1 mg Cap Iron Fum & 2023-0 Yes [id number] 1{capsu Take 1 Univers P-FA-Vit B 6-01 le} capsule by ity of & C No.9 00:00: mouth in [place] (INTEGRA the Medical PLUS) 125 morning. Branch mg iron- 1 mg Cap Iron Fum & 2023-0 Yes [id number] 1{capsu Take 1 Univers P-FA-Vit B 6-01 le} capsule by ity of & C No.9 00:00: mouth in [place] (INTEGRA the Medical PLUS) 125 morning. Branch mg iron- 1 mg Cap Iron Fum & 2023-0 Yes [id number] 1{capsu Take 1 Univers P-FA-Vit B 6-01 le} capsule by ity of & C No.9 00:00: mouth in [place] (INTEGR the Medical PLUS) 125 morning. Branch mg iron- 1 mg Cap Iron Fum & 2023-0 Yes [id number] 1{capsu Take 1 Univers P-FA-Vit B 6-01 le} capsule by ity of & C No.9 00:00: mouth in [place] (INTEGRA the Medical PLUS) 125 morning. Branch mg iron- 1 mg Cap Iron Fum & 2023-0 Yes [id number] 1{capsu Take 1 Univers P-FA-Vit B 6-01 le} capsule by ity of & C No.9 00:00: mouth in [place] (INTEGRA the Medical PLUS) 125 morning. Branch mg iron- 1 mg Cap Iron Fum & 2023-0 Yes [id number] 1{capsu Take 1 Univers P-FA-Vit B 6-01 le} capsule by ity of & C No.9 00:00: mouth in [place] (INTEGRA the Medical PLUS) 125 morning. Branch mg iron- 1 mg Cap Iron Fum & 2023-0 Yes [id number] 1{capsu Take 1 Univers P-FA-Vit B 6-01 le} capsule by ity of & C No.9 00:00: mouth in [place] (INTEGRA the Medical PLUS) 125 morning. Branch mg iron- 1 mg Cap Iron Fum & 2023-0 Yes [id number] 1{capsu Take 1 [facility] P-FA-Vit B 6-01 le} capsule by ity of & C No.9 00:00: mouth in [place] (INTEGRA 00 the Medical PLUS) 125 morning. Branch mg iron- 1 mg Cap Iron Fum & 2022-0 Yes [id number] 1{capsu Take 1 [facility] P-FA-Vit B 6-01 le} capsule by ity of & C No.9 00:00: mouth in [place] (INTEGRA 00 the Medical PLUS) 125 morning. Branch mg iron- 1 mg Cap Iron Fum & 0 2022- No [id number] 1{capsu Take 1 Univers P-FA-Vit B 6-01 08-06 le} capsule by it y of & C No.9 00:00: 00:00 mouth in [place] (INTEGRA 00 :00 the Medical PLUS) 125 morning. Branch mg iron- 1 mg Cap fluconazole 2022-0 3- No [id number] 150mg Take 1 Univers 150 mg 5-19 05-20 tablet by ity of tablet 00:00: 04:59 mouth [place] 00 :00 now for 1 Medical dose. Branch fluconazole 2022-0 2022- No [id number] 150mg Take 1 [facility] 150 mg 5-19 05-20 tablet by ity of tablet 00:00: 04:59 mouth [place] 00 :00 now for 1 Medical dose. Branch magnesium 0 Yes [id number] 1{tbl} Take 1 Univers oxide 400 4-24 tablet by ity o f mg 00:00: mouth in [place] magnesium 00 the Medical Tab morning. Branch magnesium 2022-0 Yes [id number] 1{tbl} Take 1 [facility] oxide 400 4-24 tablet by ity o f mg 00:00: mouth in [place] magnesium 00 the Medical Tab morning. Branch magnesium 2022-0 Yes [id number] 1{tbl} Take 1 [facility] oxide 400 4-24 tablet by ity o f mg 00:00: mouth in [place] magnesium 00 the Medical Tab morning. Branch magnesium 2022-0 Yes [id number] 1{tbl} Take 1 [facility] oxide 400 4-24 tablet by ity o f mg 00:00: mouth in [place] magnesium 00 the Medical Tab morning. Branch magnesium 2022-0 Yes [id number] 1{tbl} Take 1 [facility] oxide 400 4-24 tablet by ity o f mg 00:00: mouth in [place] magnesium 00 the Medical Tab morning. Branch magnesium 2023-0 Yes [id number] 1{tbl} Take 1 [facility] oxide 400 4-24 tablet by ity o f mg 00:00: mouth in [place] magnesium 00 the Medical Tab morning. Branch magnesium 2023-0 Yes [id number] 1{tbl} Take 1 [facility] oxide 400 4-24 tablet by ity o f mg 00:00: mouth in [place] magnesium 00 the Medical Tab morning. Branch magnesium 2023-0 Yes [id number] 1{tbl} Take 1 [facility] oxide 400 4-24 tablet by ity o f mg 00:00: mouth in [place] magnesium 00 the Medical Tab morning. Branch magnesium 2023-0 Yes [id number] 1{tbl} Take 1 [facility] oxide 400 4-24 tablet by ity o f mg 00:00: mouth in [place] magnesium 00 the Medical Tab morning. Branch magnesium 2023-0 Yes [id number] 1{tbl} Take 1 [facility] oxide 400 4-24 tablet by ity o f mg 00:00: mouth in [place] magnesium 00 the Medical Tab morning. Branch magnesium 2023-0 Yes [id number] 1{tbl} Take 1 [facility] oxide 400 4-24 tablet by ity o f mg 00:00: mouth in [place] magnesium 00 the Medical Tab morning. Branch magnesium 3-0 Yes [id number] 1{tbl} Take 1 [facility] oxide 400 4-24 tablet by ity o f mg 00:00: mouth in [place] magnesium 00 the Medical Tab morning. Branch magnesium 2023-0 Yes 400mg Take 1 Unive rs oxide 400 4-24 tablet by ity o f mg (241.3 00:00: mouth [place] mg 00 every Medical magnesium) morning. Branc h tablet magnesium 2023-0 Yes [id number] 1{tbl} Take 1 [facility] oxide 400 4-24 tablet by ity o f mg 00:00: mouth in [place] magnesium 00 the Medical Tab morning. Branch magnesium 2023-0 Yes 400mg Take 1 Unive rs oxide 400 4-24 tablet by ity o f mg (241.3 00:00: mouth [place] mg 00 every Medical magnesium) morning. Branc h tablet magnesium 2023-0 Yes [id number] 1{tbl} Take 1 Univers oxide 400 4-24 tablet by ity o f mg 00:00: mouth in [place] magnesium 00 the Medical Tab morning. Branch magnesium 2023-0 Yes 400mg Take 1 Unive rs oxide 400 4-24 tablet by ity o f mg (241.3 00:00: mouth [place] mg 00 every Medical magnesium) morning. Branc h tablet magnesium 2023-0 Yes [id number] 1{tbl} Take 1 [facility] oxide 400 4-24 tablet by ity o f mg 00:00: mouth in [place] magnesium 00 the Medical Tab morning. Branch magnesium 2023-0 Yes 400mg Take 1 Unive rs oxide 400 4-24 tablet by ity o f mg (241.3 00:00: mouth [place] mg 00 every Medical magnesium) morning. Branc h tablet magnesium 2023-0 Yes [id number] 1{tbl} Take 1 [facility] oxide 400 4-24 tablet by ity o f mg 00:00: mouth in [place] magnesium 00 the Medical Tab morning. Branch magnesium 2023-0 Yes 400mg Take 1 Unive rs oxide 400 4-24 tablet by ity o f mg (241.3 00:00: mouth [place] mg 00 every Medical magnesium) morning. Branc h tablet magnesium 2023-0 Yes [id number] 1{tbl} Take 1 [facility] oxide 400 4-24 tablet by ity o f mg 00:00: mouth in [place] magnesium 00 the Medical Tab morning. Branch magnesium 2023-0 Yes 400mg Take 1 Unive rs oxide 400 4-24 tablet by ity o f mg (241.3 00:00: mouth [place] mg 00 every Medical magnesium) morning. Branc h tablet magnesium 2023-0 Yes [id number] 1{tbl} Take 1 [facility] oxide 400 4-24 tablet by ity o f mg 00:00: mouth in [place] magnesium 00 the Medical Tab morning. Branch magnesium 2023-0 Yes 400mg Take 1 Unive rs oxide 400 4-24 tablet by ity o f mg (241.3 00:00: mouth [place] mg 00 every Medical magnesium) morning. Branc h tablet magnesium 2023-0 Yes [id number] 1{tbl} Take 1 [facility] oxide 400 4-24 tablet by ity o f mg 00:00: mouth in [place] magnesium 00 the Medical Tab morning. Branch magnesium 2023-0 Yes 400mg Take 1 Unive rs oxide 400 4-24 tablet by ity o f mg (241.3 00:00: mouth [place] mg 00 every Medical magnesium) morning. Branc h tablet magnesium 3-0 Yes [id number] 1{tbl} Take 1 [facility] oxide 400 4-24 tablet by ity o f mg 00:00: mouth in [place] magnesium 00 the Medical Tab morning. Branch magnesium 2023-0 Yes 400mg Take 1 Unive rs oxide 400 4-24 tablet by ity o f mg (241.3 00:00: mouth [place] mg 00 every Medical magnesium) morning. Branc h tablet magnesium 3-0 Yes [id number] 1{tbl} Take 1 [facility] oxide 400 4-24 tablet by ity o f mg 00:00: mouth in [place] magnesium 00 the Medical Tab morning. Branch magnesium 2023-0 Yes 400mg Take 1 Unive rs oxide 400 4-24 tablet by ity o f mg (241.3 00:00: mouth [place] mg 00 every Medical magnesium) morning. Branc h tablet magnesium 3-0 Yes [id number] 1{tbl} Take 1 [facility] oxide 400 4-24 tablet by ity o f mg 00:00: mouth in [place] magnesium 00 the Medical Tab morning. Branch magnesium 3-0 Yes [id number] 1{tbl} Take 1 [facility] oxide 400 4-24 tablet by ity o f mg 00:00: mouth in [place] magnesium 00 the Medical Tab morning. Branch magnesium 3-0 Yes [id number] 1{tbl} Take 1 [facility] oxide 400 4-24 tablet by ity o f mg 00:00: mouth in [place] magnesium 00 the Medical Tab morning. Branch magnesium 2023-0 Yes [id number] 1{tbl} Take 1 [facility] oxide 400 4-24 tablet by ity o f mg 00:00: mouth in [place] magnesium 00 the Medical Tab morning. Branch magnesium 2023-0 Yes [id number] 1{tbl} Take 1 [facility] oxide 400 4-24 tablet by ity o f mg 00:00: mouth in [place] magnesium 00 the Medical Tab morning. Branch magnesium 2023-0 Yes [id number] 1{tbl} Take 1 [facility] oxide 400 4-24 tablet by ity o f mg 00:00: mouth in [place] magnesium 00 the Medical Tab morning. Branch magnesium 2023-0 Yes [id number] 1{tbl} Take 1 [facility] oxide 400 4-24 tablet by ity o f mg 00:00: mouth in [place] magnesium 00 the Medical Tab morning. Branch magnesium 2022-0 3- No [id number] 1{tbl} Take 1 [facility] oxide 400 4-24 08-06 tablet by ity of mg 00:00: 00:00 mouth in [place] magnesium 00 :00 the Medical Tab morning. Branch magnesium 2022-0 3- No 400mg Take 1 Univ ers oxide 400 4-24 07-27 tablet by ity of mg (241.3 00:00: 00:00 mouth [place] mg 00 :00 every Medical magnesium) morning. Branc h tablet guaiFENesin 2023-0 Yes [id number] 400mg Take 1 [facility] 400 mg 4-03 tablet by ity of tablet 00:00: mouth [place] 00 every 4 Medical (four) Branch hours as needed for Cough. guaiFENesin 2023-0 Yes [id number] 400mg Take 1 [facility] 400 mg 4-03 tablet by ity of tablet 00:00: mouth [place] 00 every 4 Medical (four) Branch hours as needed for Cough. guaiFENesin 2023-0 Yes [id number] 400mg Take 1 [facility] 400 mg 4-03 tablet by ity of tablet 00:00: mouth [place] 00 every 4 Medical (four) Branch hours as needed for Cough. guaiFENesin 2023-0 Yes [id number] 400mg Take 1 [facility] 400 mg 4-03 tablet by ity of tablet 00:00: mouth [place] 00 every 4 Medical (four) Branch hours as needed for Cough. guaiFENesin 2023-0 Yes [id number] 400mg Take 1 [facility] 400 mg 4-03 tablet by ity of tablet 00:00: mouth [place] 00 every 4 Medical (four) Branch hours as needed for Cough. guaiFENesin 2023-0 Yes [id number] 400mg Take 1 [facility] 400 mg 4-03 tablet by ity of tablet 00:00: mouth [place] 00 every 4 Medical (four) Branch hours as needed for Cough. guaiFENesin 2023-0 Yes [id number] 400mg Take 1 [facility] 400 mg 4-03 tablet by ity of tablet 00:00: mouth [place] 00 every 4 Medical (four) Branch hours as needed for Cough. guaiFENesin 2023-0 Yes [id number] 400mg Take 1 [facility] 400 mg 4-03 tablet by ity of tablet 00:00: mouth [place] 00 every 4 Medical (four) Branch hours as needed for Cough. guaiFENesin 2023-0 Yes [id number] 400mg Take 1 [facility] 400 mg 4-03 tablet by ity of tablet 00:00: mouth [place] 00 every 4 Medical (four) Branch hours as needed for Cough. guaiFENesin 2023-0 Yes [id number] 400mg Take 1 [facility] 400 mg 4-03 tablet by ity of tablet 00:00: mouth [place] 00 every 4 Medical (four) Branch hours as needed for Cough. guaiFENesin 2023-0 Yes [id number] 400mg Take 1 [facility] 400 mg 4-03 tablet by ity of tablet 00:00: mouth [place] 00 every 4 Medical (four) Branch hours as needed for Cough. guaiFENesin 2023-0 Yes [id number] 400mg Take 1 [facility] 400 mg 4-03 tablet by ity of tablet 00:00: mouth [place] 00 every 4 Medical (four) Branch hours as needed for Cough. guaiFENesin 2023-0 Yes [id number] 400mg Take 1 [facility] 400 mg 4-03 tablet by ity of tablet 00:00: mouth [place] 00 every 4 Medical (four) Branch hours as needed for Cough. guaiFENesin 2023-0 Yes [id number] 400mg Take 1 [facility] 400 mg 4-03 tablet by ity of tablet 00:00: mouth [place] 00 every 4 Medical (four) Branch hours as needed for Cough. guaiFENesin 2023-0 Yes [id number] 400mg Take 1 [facility] 400 mg 4-03 tablet by ity of tablet 00:00: mouth [place] 00 every 4 Medical (four) Branch hours as needed for Cough. guaiFENesin 2023-0 Yes [id number] 400mg Take 1 [facility] 400 mg 4-03 tablet by ity of tablet 00:00: mouth [place] 00 every 4 Medical (four) Branch hours as needed for Cough. guaiFENesin 2023-0 Yes [id number] 400mg Take 1 [facility] 400 mg 4-03 tablet by ity of tablet 00:00: mouth [place] 00 every 4 Medical (four) Branch hours as needed for Cough. guaiFENesin 2023-0 Yes [id number] 400mg Take 1 [facility] 400 mg 4-03 tablet by ity of tablet 00:00: mouth [place] 00 every 4 Medical (four) Branch hours as needed for Cough. guaiFENesin 2023-0 Yes [id number] 400mg Take 1 [facility] 400 mg 4-03 tablet by ity of tablet 00:00: mouth [place] 00 every 4 Medical (four) Branch hours as needed for Cough. guaiFENesin 2023-0 Yes [id number] 400mg Take 1 [facility] 400 mg 4-03 tablet by ity of tablet 00:00: mouth [place] 00 every 4 Medical (four) Branch hours as needed for Cough. guaiFENesin 2023-0 Yes [id number] 400mg Take 1 [facility] 400 mg 4-03 tablet by ity of tablet 00:00: mouth [place] 00 every 4 Medical (four) Branch hours as needed for Cough. guaiFENesin 2023-0 Yes [id number] 400mg Take 1 [facility] 400 mg 4-03 tablet by ity of tablet 00:00: mouth [place] 00 every 4 Medical (four) Branch hours as needed for Cough. guaiFENesin 2023-0 Yes [id number] 400mg Take 1 [facility] 400 mg 4-03 tablet by ity of tablet 00:00: mouth [place] 00 every 4 Medical (four) Branch hours as needed for Cough. guaiFENesin 2023-0 Yes [id number] 400mg Take 1 [facility] 400 mg 4-03 tablet by ity of tablet 00:00: mouth [place] 00 every 4 Medical (four) Branch hours as needed for Cough. guaiFENesin 2023-0 Yes [id number] 400mg Take 1 [facility] 400 mg 4-03 tablet by ity of tablet 00:00: mouth [place] 00 every 4 Medical (four) Branch hours as needed for Cough. guaiFENesin 2023-0 Yes [id number] 400mg Take 1 [facility] 400 mg 4-03 tablet by ity of tablet 00:00: mouth [place] 00 every 4 Medical (four) Branch hours as needed for Cough. guaiFENesin 2023-0 Yes [id number] 400mg Take 1 [facility] 400 mg 4-03 tablet by ity of tablet 00:00: mouth [place] 00 every 4 Medical (four) Branch hours as needed for Cough. guaiFENesin 2023-0 2023- No [id number] 400mg Take 1 [facility] 400 mg 4-03 07-27 tablet by ity of tablet 00:00: 00:00 mouth [place] 00 :00 every 4 Medical (four) Branch hours as needed for Cough. amoxicillin 2022-0 2022- No [id number] 1{tbl} Take 1 [facility] -clavulanat 4-03 04-11 tablet by it y of e 00:00: 04:59 mouth in [place] (AUGMENTIN) 00 :00 the Medical 875-125 mg morning Branch per tablet and 1 tablet in the evening. Do all this for 7 days. amoxicillin 2022-0 2022- No [id number] 1{tbl} Take 1 [facility] -clavulanat 4-03 04-11 tablet by it y of e 00:00: 04:59 mouth in [place] (AUGMENTIN) 00 :00 the Medical 875-125 mg morning Branch per tablet and 1 tablet in the evening. Do all this for 7 days. amoxicillin 2022-0 2022- No [id number] 1{tbl} Take 1 [facility] -clavulanat 4-03 04-11 tablet by it y of e 00:00: 04:59 mouth in [place] (AUGMENTIN) 00 :00 the Medical 875-125 mg morning Branch per tablet and 1 tablet in the evening. Do all this for 7 days. metroNIDAZO 2022-0 Yes [id number] 500mg Take 1 Univers LE 500 mg 3-11 9109 tablet by ity o f tablet 00:00: mouth in [place] 00 the Medical morning Branch and 1 tablet in the evening. metroNIDAZO 3-0 Yes [id number] 500mg Take 1 [facility] LE 500 mg 3-11 9109 tablet by ity o f tablet 00:00: mouth in [place] 00 the Medical morning Branch and 1 tablet in the evening. metroNIDAZO 2023-0 Yes [id number] 500mg Take 1 [facility] LE 500 mg 3-11 9109 tablet by ity o f tablet 00:00: mouth in [place] 00 the Medical morning Branch and 1 tablet in the evening. metroNIDAZO 2023-0 Yes [id number] 500mg Take 1 [facility] LE 500 mg 3-11 9109 tablet by ity o f tablet 00:00: mouth in [place] 00 the Medical morning Branch and 1 tablet in the evening. metroNIDAZO 2023-0 Yes [id number] 500mg Take 1 [facility] LE 500 mg 3-11 9109 tablet by ity o f tablet 00:00: mouth in [place] 00 the Medical morning Branch and 1 tablet in the evening. metroNIDAZO 2023-0 Yes [id number] 500mg Take 1 [facility] LE 500 mg 3- 9109 tablet by ity o f tablet 00:00: mouth in [place] 00 the Medical morning Branch and 1 tablet in the evening. metroNIDAZO Yes [id number] 500mg Take 1 [facility] LE 500 mg 3-11 9109 tablet by ity o f tablet 00:00: mouth in [place] 00 the Medical morning Branch and 1 tablet in the evening. metroNIDAZO 2022- No [id number] 500mg Take 1 [facility] LE 500 mg 3-11 - 9109 tablet by ity of tablet 00:00: 00:00 mouth in [place] 00 :00 the Medical morning Branch and 1 tablet in the evening. metroNIDAZO 2022- No [id number] 500mg Take 1 [facility] LE 500 mg 3-07-08 9109 tablet by ity of tablet 00:00: 00:00 mouth in [place] 00 :00 the Medical morning Branch and 1 tablet in the evening. Yes Take by Univer s vit 3-08 mouth. ity of no.124/iron 09:25: [place] /folic 08 Medical ( Branch VITAMIN ORAL) 0 Yes Take by Univer s vit 3-08 mouth. ity of no.124/iron 09:25: [place] /folic 08 Medical ( Branch VITAMIN ORAL) 0 Yes Take by Univer s vit 3-08 mouth. ity of no.124/iron 09:25: [place] /folic 08 Medical ( Branch VITAMIN ORAL) Yes Take by Univer s vit 3-08 mouth. ity of no.124/iron 09:25: [place] /folic 08 Medical ( Branch VITAMIN ORAL) 0 Yes Take by Univer s vit 3-08 mouth. ity of no.124/iron 09:25: [place] /folic 08 Medical ( Branch VITAMIN ORAL) 0 Yes Take by Univer s vit 3-08 mouth. ity of no.124/iron 09:25: [place] /folic 08 Medical ( Branch VITAMIN ORAL) 0 Yes Take by Univer s vit 3-08 mouth. ity of no.124/iron 09:25: [place] /folic 08 Medical ( Branch VITAMIN ORAL) 0 Yes Take by Univer s vit 3-08 mouth. ity of no.124/iron 09:25: [place] /folic 08 Medical ( Branch VITAMIN ORAL) 0 Yes Take by Univer s vit 3-08 mouth. ity of no.124/iron 09:25: [place] /folic 08 Medical ( Branch VITAMIN ORAL) 0 Yes Take by Univer s vit 3-08 mouth. ity of no.124/iron 09:25: [place] /folic 08 Medical ( Branch VITAMIN ORAL) 0 Yes Take by Univer s vit 3-08 mouth. ity of no.124/iron 09:25: [place] /folic 08 Medical ( Branch VITAMIN ORAL) 0 Yes Take by Univer s vit 3-08 mouth. ity of no.124/iron 09:25: [place] /folic 08 Medical ( Branch VITAMIN ORAL) 0 Yes Take by Univer s vit 3-08 mouth. ity of no.124/iron 09:25: [place] /folic 08 Medical ( Branch VITAMIN ORAL) 0 Yes Take by Univer s vit 3-08 mouth. ity of no.124/iron 09:25: [place] /folic 08 Medical ( Branch VITAMIN ORAL) 0 Yes Take by Univer s vit 3-08 mouth. ity of no.124/iron 09:25: [place] /folic 08 Medical ( Branch VITAMIN ORAL) 0 Yes Take by Univer s vit 3-08 mouth. ity of no.124/iron 09:25: [place] /folic 08 Medical ( Branch VITAMIN ORAL) 0 Yes Take by Univer s vit 3-08 mouth. ity of no.124/iron 09:25: [place] /folic 08 Medical ( Branch VITAMIN ORAL) 0 Yes Take by Univer s vit 3-08 mouth. ity of no.124/iron 09:25: [place] /folic 08 Medical ( Branch VITAMIN ORAL) 0 Yes Take by [facility] vit 3-08 mouth. ity of no.124/iron 09:25: [place] /folic 08 Medical ( Branch VITAMIN ORAL) 0 Yes Take by [facility] vit 3-08 mouth. ity of no.124/iron 09:25: [place] /folic 08 Medical ( Branch VITAMIN ORAL) 2022-0 Yes Take by [facility] vit 3-08 mouth. ity of no.124/iron 09:25: [place] /folic 08 Medical ( Branch VITAMIN ORAL) 2022-0 Yes Take by [facility] vit 3-08 mouth. ity of no.124/iron 09:25: [place] /folic 08 Medical ( Branch VITAMIN ORAL) 0 Yes Take by [facility] vit 3-08 mouth. ity of no.124/iron 09:25: [place] /folic 08 Medical ( Branch VITAMIN ORAL) 0 Yes Take by [facility] vit 3-08 mouth. ity of no.124/iron 09:25: [place] /folic 08 Medical ( Branch VITAMIN ORAL) 0 Yes Take by [facility] vit 3-08 mouth. ity of no.124/iron 09:25: [place] /folic 08 Medical ( Branch VITAMIN ORAL) 0 Yes Take by [facility] vit 3-08 mouth. ity of no.124/iron 09:25: [place] /folic 08 Medical ( Branch VITAMIN ORAL) 0 Yes Take by [facility] vit 3-08 mouth. ity of no.124/iron 09:25: [place] /folic 08 Medical ( Branch VITAMIN ORAL) 0 Yes Take by [facility] vit 3-08 mouth. ity of no.124/iron 09:25: [place] /folic 08 Medical ( Branch VITAMIN ORAL) 0 Yes Take by [facility] vit 3-08 mouth. ity of no.124/iron 09:25: [place] /folic 08 Medical ( Branch VITAMIN ORAL) 0 Yes Take by [facility] vit 3-08 mouth. ity of no.124/iron 09:25: [place] /folic 08 Medical ( Branch VITAMIN ORAL) 0 Yes Take by [facility] vit 3-08 mouth. ity of no.124/iron 09:25: [place] /folic 08 Medical ( Branch VITAMIN ORAL) 0 Yes Take by [facility] vit 3-08 mouth. ity of no.124/iron 09:25: [place] /folic 08 Medical ( Branch VITAMIN ORAL) Yes Take by [facility] vit 3-08 mouth. ity of no.124/iron 09:25: [place] /folic 08 Medical ( Branch VITAMIN ORAL) Yes Take by [facility] vit 3-08 mouth. ity of no.124/iron 09:25: [place] /folic 08 Medical ( Branch VITAMIN ORAL) pyridoxine, Yes [id number] Take 1 [facility] vitamin B6, 3-08 tablet by ity of 50 mg 00:00: mouth [place] tablet 00 twice Medical daily Branch before breakfast and dinner. pyridoxine, Yes [id number] Take 1 [facility] vitamin B6, 3-08 tablet by ity of 50 mg 00:00: mouth [place] tablet 00 twice Medical daily Branch before breakfast and dinner. pyridoxine, Yes [id number] Take 1 [facility] vitamin B6, 3-08 tablet by ity of 50 mg 00:00: mouth [place] tablet 00 twice Medical daily Branch before breakfast and dinner. pyridoxine, 0 Yes [id number] Take 1 [facility] vitamin B6, 3-08 tablet by ity of 50 mg 00:00: mouth [place] tablet 00 twice Medical daily Branch before breakfast and dinner. pyridoxine, 0 Yes [id number] Take 1 [facility] vitamin B6, 3-08 tablet by ity of 50 mg 00:00: mouth [place] tablet 00 twice Medical daily Branch before breakfast and dinner. pyridoxine, 0 Yes [id number] Take 1 [facility] vitamin B6, 3-08 tablet by ity of 50 mg 00:00: mouth [place] tablet 00 twice Medical daily Branch before breakfast and dinner. pyridoxine, 0 Yes [id number] Take 1 [facility] vitamin B6, 3-08 tablet by ity of 50 mg 00:00: mouth [place] tablet 00 twice Medical daily Branch before breakfast and dinner. pyridoxine, 0 Yes [id number] Take 1 [facility] vitamin B6, 3-08 tablet by ity of 50 mg 00:00: mouth [place] tablet 00 twice Medical daily Branch before breakfast and dinner. pyridoxine, 0 Yes [id number] Take 1 [facility] vitamin B6, 3-08 tablet by ity of 50 mg 00:00: mouth [place] tablet 00 twice Medical daily Branch before breakfast and dinner. pyridoxine, 0 Yes [id number] Take 1 [facility] vitamin B6, 3-08 tablet by ity of 50 mg 00:00: mouth [place] tablet 00 twice Medical daily Branch before breakfast and dinner. pyridoxine, 0 Yes [id number] Take 1 [facility] vitamin B6, 3-08 tablet by ity of 50 mg 00:00: mouth [place] tablet 00 twice Medical daily Branch before breakfast and dinner. pyridoxine, 0 Yes [id number] Take 1 [facility] vitamin B6, 3-08 tablet by ity of 50 mg 00:00: mouth [place] tablet 00 twice Medical daily Branch before breakfast and dinner. pyridoxine, 0 Yes [id number] Take 1 [facility] vitamin B6, 3-08 tablet by ity of 50 mg 00:00: mouth [place] tablet 00 twice Medical daily Branch before breakfast and dinner. pyridoxine, Yes [id number] Take 1 [facility] vitamin B6, 3-08 tablet by ity of 50 mg 00:00: mouth [place] tablet 00 twice Medical daily Branch before breakfast and dinner. pyridoxine, 0 Yes [id number] Take 1 [facility] vitamin B6, 3-08 tablet by ity of 50 mg 00:00: mouth [place] tablet 00 twice Medical daily Branch before breakfast and dinner. pyridoxine, 0 Yes [id number] Take 1 [facility] vitamin B6, 3-08 tablet by ity of 50 mg 00:00: mouth [place] tablet 00 twice Medical daily Branch before breakfast and dinner. pyridoxine, 0 Yes [id number] Take 1 [facility] vitamin B6, 3-08 tablet by ity of 50 mg 00:00: mouth [place] tablet 00 twice Medical daily Branch before breakfast and dinner. pyridoxine, 0 Yes [id number] Take 1 [facility] vitamin B6, 3-08 tablet by ity of 50 mg 00:00: mouth [place] tablet 00 twice Medical daily Branch before breakfast and dinner. pyridoxine, 0 Yes [id number] Take 1 [facility] vitamin B6, 3-08 tablet by ity of 50 mg 00:00: mouth [place] tablet 00 twice Medical daily Branch before breakfast and dinner. pyridoxine, 0 Yes [id number] Take 1 [facility] vitamin B6, 3-08 tablet by ity of 50 mg 00:00: mouth [place] tablet 00 twice Medical daily Branch before breakfast and dinner. pyridoxine, 0 Yes [id number] Take 1 [facility] vitamin B6, 3-08 tablet by ity of 50 mg 00:00: mouth [place] tablet 00 twice Medical daily Branch before breakfast and dinner. pyridoxine, 0 Yes [id number] Take 1 [facility] vitamin B6, 3-08 tablet by ity of 50 mg 00:00: mouth [place] tablet 00 twice Medical daily Branch before breakfast and dinner. pyridoxine, 0 Yes [id number] Take 1 [facility] vitamin B6, 3-08 tablet by ity of 50 mg 00:00: mouth [place] tablet 00 twice Medical daily Branch before breakfast and dinner. pyridoxine, 0 Yes [id number] Take 1 [facility] vitamin B6, 3-08 tablet by ity of 50 mg 00:00: mouth [place] tablet 00 twice Medical daily Branch before breakfast and dinner. pyridoxine, 0 Yes [id number] Take 1 [facility] vitamin B6, 3-08 tablet by ity of 50 mg 00:00: mouth [place] tablet 00 twice Medical daily Branch before breakfast and dinner. pyridoxine, 0 Yes [id number] Take 1 [facility] vitamin B6, 3-08 tablet by ity of 50 mg 00:00: mouth [place] tablet 00 twice Medical daily Branch before breakfast and dinner. pyridoxine, 0 Yes [id number] Take 1 [facility] vitamin B6, 3-08 tablet by ity of 50 mg 00:00: mouth [place] tablet 00 twice Medical daily Branch before breakfast and dinner. pyridoxine, 0 Yes [id number] Take 1 [facility] vitamin B6, 3-08 tablet by ity of 50 mg 00:00: mouth [place] tablet 00 twice Medical daily Branch before breakfast and dinner. pyridoxine, 0 Yes [id number] Take 1 [facility] vitamin B6, 3-08 tablet by ity of 50 mg 00:00: mouth [place] tablet 00 twice Medical daily Branch before breakfast and dinner. pyridoxine, 0 Yes [id number] Take 1 [facility] vitamin B6, 3-08 tablet by ity of 50 mg 00:00: mouth [place] tablet 00 twice Medical daily Branch before breakfast and dinner. pyridoxine, 2023-0 Yes [id number] Take 1 [facility] vitamin B6, 3-08 tablet by ity of 50 mg 00:00: mouth [place] tablet 00 twice Medical daily Branch before breakfast and dinner. pyridoxine, 0 Yes [id number] Take 1 [facility] vitamin B6, 3-08 tablet by ity of 50 mg 00:00: mouth [place] tablet 00 twice Medical daily Branch before breakfast and dinner. pyridoxine, 0 Yes [id number] Take 1 [facility] vitamin B6, 3-08 tablet by ity of 50 mg 00:00: mouth [place] tablet 00 twice Medical daily Branch before breakfast and dinner. pyridoxine, 0 Yes [id number] Take 1 [facility] vitamin B6, 3-08 tablet by ity of 50 mg 00:00: mouth [place] tablet 00 twice Medical daily Branch before breakfast and dinner. pyridoxine, 0 Yes [id number] Take 1 [facility] vitamin B6, 3-08 tablet by ity of 50 mg 00:00: mouth [place] tablet 00 twice Medical daily Branch before breakfast and dinner. pyridoxine, 0 Yes [id number] Take 1 [facility] vitamin B6, 3-08 tablet by ity of 50 mg 00:00: mouth [place] tablet 00 twice Medical daily Branch before breakfast and dinner. pyridoxine, 0 Yes [id number] Take 1 [facility] vitamin B6, 3-08 tablet by ity of 50 mg 00:00: mouth [place] tablet 00 twice Medical daily Branch before breakfast and dinner. pyridoxine, 0 Yes [id number] Take 1 [facility] vitamin B6, 3-08 tablet by ity of 50 mg 00:00: mouth [place] tablet 00 twice Medical daily Branch before breakfast and dinner. pyridoxine, 0 Yes [id number] Take 1 [facility] vitamin B6, 3-08 tablet by ity of 50 mg 00:00: mouth [place] tablet 00 twice Medical daily Branch before breakfast and dinner. pyridoxine, 0 Yes [id number] Take 1 [facility] vitamin B6, 3-08 tablet by ity of 50 mg 00:00: mouth [place] tablet 00 twice Medical daily Branch before breakfast and dinner. pyridoxine, 0 Yes [id number] Take 1 [facility] vitamin B6, 3-08 tablet by ity of 50 mg 00:00: mouth [place] tablet 00 twice Medical daily Branch before breakfast and dinner. pyridoxine, Yes [id number] Take 1 [facility] vitamin B6, 3-08 tablet by ity of 50 mg 00:00: mouth [place] tablet 00 twice Medical daily Branch before breakfast and dinner. pyridoxine, 0 Yes [id number] Take 1 [facility] vitamin B6, 3-08 tablet by ity of 50 mg 00:00: mouth [place] tablet 00 twice Medical daily Branch before breakfast and dinner. pyridoxine, 2022- No [id number] Take 1 [facility] vitamin B6, 3-08 08-06 tablet by it y of 50 mg 00:00: 00:00 mouth [place] tablet 00 :00 twice Medical daily Branch before breakfast and dinner. Yes Take by [facility] vit 2-06 mouth. ity of no.124/iron 08:25: [place] /folic 22 Medical ( Branch VITAMIN ORAL) Yes Take by [facility] vit 2-06 mouth. ity of no.124/iron 08:25: [place] /folic 22 Medical ( Branch VITAMIN ORAL) Yes Take by [facility] vit 2-06 mouth. ity of no.124/iron 08:25: [place] /folic 22 Medical ( Branch VITAMIN ORAL) Yes Take by [facility] vit 2-06 mouth. ity of no.124/iron 08:25: [place] /folic 22 Medical ( Branch VITAMIN ORAL) Yes Take by [facility] vit 2-06 mouth. ity of no.124/iron 08:25: [place] /folic 22 Medical ( Branch VITAMIN ORAL) Yes Take by [facility] vit 2-06 mouth. ity of no.124/iron 08:25: [place] /folic 22 Medical ( Branch VITAMIN ORAL) Yes Take by [facility] vit 2-06 mouth. ity of no.124/iron 08:25: [place] /folic 22 Medical ( Branch VITAMIN ORAL) Yes Take by [facility] vit 2-06 mouth. ity of no.124/iron 08:25: [place] /folic 22 Medical ( Branch VITAMIN ORAL) Yes Take by [facility] vit 2-06 mouth. ity of no.124/iron 08:25: [place] /folic 22 Medical ( Branch VITAMIN ORAL) calcium 2022-2022- No 500mg Take 500 Univ ers carbonate/v 04-15-09 mg by ity of itamin D3 09:29: 00:00 mouth [place] (CALCIUM 11 :00 daily. Medical 500 + D Branch ORAL) calcium 2022-3- No 500mg Take 500 Univ ers carbonate/v 04-15-09 mg by ity of itamin D3 09:29: 00:00 mouth [place] (CALCIUM 11 :00 daily. Medical 500 + D Branch ORAL) calcium 2022- No 500mg Take 500 Univ ers carbonate/v 04-15-09 mg by ity of itamin D3 09:29: 00:00 mouth [place] (CALCIUM 11 :00 daily. Medical 500 + D Branch ORAL) calcium 2022- No 500mg Take 500 Univ ers carbonate/v 04-15-09 mg by ity of itamin D3 09:29: 00:00 mouth [place] (CALCIUM 11 :00 daily. Medical 500 + D Branch ORAL) calcium 2022- No 500mg Take 500 Univ ers carbonate/v 04-15-09 mg by ity of itamin D3 09:29: 00:00 mouth [place] (CALCIUM 11 :00 daily. Medical 500 + D Branch ORAL) calcium 2022-0 2022- No 500mg Take 500 Univ ers carbonate/v 04-15-09 mg by ity of itamin D3 09:29: 00:00 mouth [place] (CALCIUM 11 :00 daily. Medical 500 + D Branch ORAL) calcium 2022- No 500mg Take 500 Univ ers carbonate/v 04-15-09 mg by ity of itamin D3 09:29: 00:00 mouth [place] (CALCIUM 11 :00 daily. Medical 500 + D Branch ORAL) calcium 2022-0 2022- No 500mg Take 500 Univ ers carbonate/v 04-15-09 mg by ity of itamin D3 09:29: 00:00 mouth [place] (CALCIUM 11 :00 daily. Medical 500 + D Branch ORAL) ketorolac 2021-04 Yes [id number] 10mg Take 1 [facility] 10 mg 2-16 tablet by ity of tablet 00:00: mouth as [place] 00 needed for Medical Pain Branch (scale 1-3) for up to 20 doses. ketorolac 2021-04 Yes [id number] 10mg Take 1 [facility] 10 mg 2-16 tablet by ity of tablet 00:00: mouth as [place] 00 needed for Medical Pain Branch (scale 1-3) for up to 20 doses. ketorolac 2021-04 Yes [id number] 10mg Take 1 [facility] 10 mg 2-16 tablet by ity of tablet 00:00: mouth as [place] 00 needed for Medical Pain Branch (scale 1-3) for up to 20 doses. ketorolac 2021-04 Yes [id number] 10mg Take 1 [facility] 10 mg 2-16 tablet by ity of tablet 00:00: mouth as [place] 00 needed for Medical Pain Branch (scale 1-3) for up to 20 doses. ketorolac 2021-04 Yes [id number] 10mg Take 1 [facility] 10 mg 2-16 tablet by ity of tablet 00:00: mouth as [place] 00 needed for Medical Pain Branch (scale 1-3) for up to 20 doses. ketorolac 2021-04 Yes [id number] 10mg Take 1 [facility] 10 mg 2-16 tablet by ity of tablet 00:00: mouth as [place] 00 needed for Medical Pain Branch (scale 1-3) for up to 20 doses. ketorolac 2021-04 Yes [id number] 10mg Take 1 [facility] 10 mg 2-16 tablet by ity of tablet 00:00: mouth as [place] 00 needed for Medical Pain Branch (scale 1-3) for up to 20 doses. ketorolac 2021-04 Yes [id number] 10mg Take 1 [facility] 10 mg 2-16 tablet by ity of tablet 00:00: mouth as [place] 00 needed for Medical Pain Branch (scale 1-3) for up to 20 doses. ketorolac 2021-04 Yes [id number] 10mg Take 1 [facility] 10 mg 2-16 tablet by ity of tablet 00:00: mouth as [place] 00 needed for Medical Pain Branch (scale 1-3) for up to 20 doses. ketorolac 2021-04 Yes [id number] 10mg Take 1 [facility] 10 mg 2-16 tablet by ity of tablet 00:00: mouth as [place] 00 needed for Medical Pain Branch (scale 1-3) for up to 20 doses. ketorolac 2021-04 Yes [id number] 10mg Take 1 [facility] 10 mg 2-16 tablet by ity of tablet 00:00: mouth as [place] 00 needed for Medical Pain Branch (scale 1-3) for up to 20 doses. ketorolac 2021-04- No [id number] 10mg Take 1 [facility] nivers 10 mg 2-16 -09 tablet by ity of tablet 00:00: 00:00 mouth as [place] 00 :00 needed for Medical Pain Branch (scale 1-3) for up to 20 doses. ketorolac 2021-04- No [id number] 10mg Take 1 [facility] nivers 10 mg 2-16 -09 tablet by ity of tablet 00:00: 00:00 mouth as [place] 00 :00 needed for Medical Pain Branch (scale 1-3) for up to 20 doses. doxycycline 2021-04- No [id number] 100mg Take 1 [facility] monohydrate 2-11 16-16 tablet by it y of 100 mg 00:00: 05:59 mouth in [place] tablet 00 :00 the Medical morning Branch and 1 tablet in the evening. Do all this for 7 days. moxifloxaci 2021-04- No [id number] 400mg Take 1 [facility] n 400 mg -11 16-16 tablet by ity o f tablet 00:00: 05:59 mouth in [place] 00 :00 the Medical morning Branch for 7 days. metroNIDAZO 2021-04- No [id number] 500mg Take 1 [facility] LE 500 mg 1-30 12-08 tablet by ity of tablet 00:00: 05:59 mouth [place] 00 :00 every 12 Medical (twelve) Branch hours for 7 days. metroNIDAZO 2021-04- No [id number] 500mg Take 1 [facility] LE 500 mg 1-30 12-08 tablet by ity of tablet 00:00: 05:59 mouth [place] 00 :00 every 12 Medical (twelve) Branch hours for 7 days. terconazole 2021-04- No [id number] 80mg Insert 1 [facility] 80 mg -30 12-04 Suppositor ity of vaginal 00:00: 05:59 y into [place] suppository 00 :00 vagina at [facility] bedtime Branch for 3 days. terconazole 2021-04- No [id number] 80mg Insert 1 [facility] 80 mg 05-06 Suppositor ity of vaginal 00:00: 05:59 y into [place] suppository 00 :00 vagina at [facility] for 3 days. terconazole 2021-04- No [id number] 80mg Insert 1 [facility] 80 mg 04-13 Suppositor ity of vaginal 00:00: 05:59 y into [place] suppository 00 :00 vagina at [facility] for 3 days. terconazole 2021-04- No [id number] 80mg Insert 1 [facility] 80 mg 04-13 Suppositor ity of vaginal 00:00: 05:59 y into [place] suppository 00 :00 vagina at [facility] for 3 days. terconazole 2021-04- No [id number] 80mg Insert 1 [facility] 80 mg 04-13 Suppositor ity of vaginal 00:00: 05:59 y into [place] suppository 00 :00 vagina at [facility] for 3 days. terconazole 2021-04- No [id number] 80mg Insert 1 [facility] 80 mg 04-13 Suppositor ity of vaginal 00:00: 05:59 y into [place] suppository 00 :00 vagina at [facility] for 3 days. terconazole 2021-04- No [id number] 80mg Insert 1 [facility] 80 mg 04-13 Suppositor ity of vaginal 00:00: 05:59 y into [place] suppository 00 :00 vagina at [facility] for 3 days. terconazole 2021-04- No [id number] 80mg Insert 1 [facility] 80 mg 04-13 Suppositor ity of vaginal 00:00: 05:59 y into [place] suppository 00 :00 vagina at [facility] for 3 days. butalbital- 2021-04 Yes TAKE ONE [facility] aspirin-caf 1-03 CAPSULE BY it y of feine 00:00: MOUTH [place] 50-325-40 00 EVERY 6 Medical mg per HOURS Branch capsule NEEDED FOR PAIN butalbital- 2021-04 Yes TAKE ONE [facility] aspirin-caf 1-03 CAPSULE BY it y of feine 00:00: MOUTH [place] 50-325-40 00 EVERY 6 Medical mg per HOURS Branch capsule NEEDED FOR PAIN butalbital- 2021-04 Yes TAKE ONE [facility] aspirin-caf 1-03 CAPSULE BY it y of feine 00:00: MOUTH [place] 50-325-40 00 EVERY 6 Medical mg per HOURS Branch capsule NEEDED FOR PAIN butalbital- 2021-04 Yes TAKE ONE [facility] aspirin-caf 1-03 CAPSULE BY it y of feine 00:00: MOUTH [place] 50-325-40 00 EVERY 6 Medical mg per HOURS Branch capsule NEEDED FOR PAIN butalbital- 2021-04 Yes TAKE ONE [facility] aspirin-caf 1-03 CAPSULE BY it y of feine 00:00: MOUTH [place] 50-325-40 00 EVERY 6 Medical mg per HOURS Branch capsule NEEDED FOR PAIN butalbital- 2021-04 Yes TAKE ONE [facility] aspirin-caf 1-03 CAPSULE BY it y of feine 00:00: MOUTH [place] 50-325-40 00 EVERY 6 Medical mg per HOURS Branch capsule NEEDED FOR PAIN butalbital- 2021-04 Yes TAKE ONE [facility] aspirin-caf 1-03 CAPSULE BY it y of feine 00:00: MOUTH [place] 50-325-40 00 EVERY 6 Medical mg per HOURS Branch capsule NEEDED FOR PAIN butalbital- 2021-04 Yes TAKE ONE [facility] aspirin-caf 1-03 CAPSULE BY it y of feine 00:00: MOUTH [place] 50-325-40 00 EVERY 6 Medical mg per HOURS Branch capsule NEEDED FOR PAIN butalbital- 2021-04 Yes TAKE ONE [facility] aspirin-caf 1-03 CAPSULE BY it y of feine 00:00: MOUTH [place] 50-325-40 00 EVERY 6 Medical mg per HOURS Branch capsule NEEDED FOR PAIN butalbital- 2021-04 Yes TAKE ONE [facility] aspirin-caf 1-03 CAPSULE BY it y of feine 00:00: MOUTH [place] 50-325-40 00 EVERY 6 Medical mg per HOURS Branch capsule NEEDED FOR PAIN butalbital- 2021-04 Yes TAKE ONE [facility] aspirin-caf 1-03 CAPSULE BY it y of feine 00:00: MOUTH [place] 50-325-40 00 EVERY 6 Medical mg per HOURS Branch capsule NEEDED FOR PAIN butalbital- 2021-04 Yes TAKE ONE [facility] aspirin-caf 1-03 CAPSULE BY it y of feine 00:00: MOUTH [place] 50-325-40 00 EVERY 6 Medical mg per HOURS Branch capsule NEEDED FOR PAIN butalbital- 2021-04 Yes TAKE ONE [facility] aspirin-caf 1-03 CAPSULE BY it y of feine 00:00: MOUTH [place] 50-325-40 00 EVERY 6 Medical mg per HOURS Branch capsule NEEDED FOR PAIN butalbital- 2021-04 Yes TAKE ONE [facility] aspirin-caf 1-03 CAPSULE BY it y of feine 00:00: MOUTH [place] 50-325-40 00 EVERY 6 Medical mg per HOURS Branch capsule NEEDED FOR PAIN butalbital- 2021-04 Yes TAKE ONE [facility] aspirin-caf 1-03 CAPSULE BY it y of feine 00:00: MOUTH [place] 50-325-40 00 EVERY 6 Medical mg per HOURS Branch capsule NEEDED FOR PAIN butalbital- 2021-04 Yes TAKE ONE [facility] aspirin-caf 1-03 CAPSULE BY it y of feine 00:00: MOUTH [place] 50-325-40 00 EVERY 6 Medical mg per HOURS Branch capsule NEEDED FOR PAIN butalbital- 2021-04 Yes TAKE ONE [facility] aspirin-caf 1-03 CAPSULE BY it y of feine 00:00: MOUTH [place] 50-325-40 00 EVERY 6 Medical mg per HOURS Branch capsule NEEDED FOR PAIN butalbital- 2021-04 Yes TAKE ONE [facility] aspirin-caf 1-03 CAPSULE BY it y of feine 00:00: MOUTH [place] 50-325-40 00 EVERY 6 Medical mg per HOURS Branch capsule NEEDED FOR PAIN butalbital- 2021-04 Yes TAKE ONE [facility] aspirin-caf 1-03 CAPSULE BY it y of feine 00:00: MOUTH [place] 50-325-40 00 EVERY 6 Medical mg per HOURS Branch capsule NEEDED FOR PAIN butalbital- 2021-04 Yes TAKE ONE [facility] aspirin-caf 1-03 CAPSULE BY it y of feine 00:00: MOUTH [place] 50-325-40 00 EVERY 6 Medical mg per HOURS Branch capsule NEEDED FOR PAIN butalbital- 2021-04 Yes TAKE ONE [facility] aspirin-caf 1-03 CAPSULE BY it y of feine 00:00: MOUTH [place] 50-325-40 00 EVERY 6 Medical mg per HOURS Branch capsule NEEDED FOR PAIN butalbital- 2021-04- No TAKE ONE U nivers aspirin-caf 04-09 CAPSULE BY i ty of feine 00:00: 00:00 MOUTH [place] 50-325-40 00 :00 EVERY 6 Medical mg per HOURS Branch capsule NEEDED FOR PAIN gadobenate 2021-04- No [id number] .2mL/kg 0.2 mL/kg, [facility] dimeglumine 04-07 Intravenou i ty of (MULTIHANCE 22:30: 22:25 s, ONCE, 1 [place] -15 mL) 00 :00 dose, On Medical injection Tue Branch 0.2 mL/kg 02/05/22 at 1730, Routine metroNIDAZO 2021- No [id number] 500mg Take 1 [facility] LE 500 mg 12-17 tablet by ity of tablet 00:00: 04:59 mouth [place] 00 :00 every 12 Medical (twelve) Branch hours for 7 days. SUMAtriptan Yes [id number] Start 25mg [facility] 25 mg - x 1 PRN ity of tablet 00:00: Migraine. [place] 00 Max Dose Medical 200mg/24H. Branch May repeat dose x 1 after 2H traZODone Yes [id number] 100mg Take 2 [facility] 50 mg - tablets by ity of tablet 00:00: mouth at [place] 00 bedtime. Medical Branch Diclofenac Yes [id number] Apply to [facility] Sodium 12-11 [id number] area(s) 4 ity of (VOLTAREN) 00:00: (four) [place] 1 % gel 00 times Medical daily. Branch Apply 4 g qid Lidocaine 5 Yes [id number] Apply to [facility] % cream 12-11 [id number] area(s) 2 ity o f 00:00: (two) [place] 00 times Medical daily as Branch needed for Pain (scale 4-6). Apply 5g to affected areas BID PRN butalbital- Yes [id number] 1{tbl} Take 1 [facility] aspirin-caf 9-06 tablet by ity of feine per 00:00: mouth [place] tablet 00 every 6 Medical (six) Branch hours as needed for Pain. SUMAtriptan 0 Yes [id number] Start 25mg [facility] 25 mg 9-06 x 1 PRN ity of tablet 00:00: Migraine. [place] 00 Max Dose Medical 200mg/24H. Branch May repeat dose x 1 after 2H traZODone 2021-0 Yes [id number] 100mg Take 2 [facility] 50 mg 9-06 tablets by ity of tablet 00:00: mouth at [place] 00 bedtime. Medical Branch Diclofenac 2021-0 Yes [id number] Apply to [facility] Sodium 9-06 [id number] area(s) 4 ity of (VOLTAREN) 00:00: (four) [place] 1 % gel 00 times Medical daily. Branch Apply 4 g qid Lidocaine 5 2021- Yes [id number] Apply to [facility] % cream 9- [id number] area(s) 2 ity o f 00:00: (two) [place] 00 times Medical daily as Branch needed for Pain (scale 4-6). Apply 5g to affected areas BID PRN butalbital- 2021-0 Yes [id number] 1{tbl} Take 1 [facility] aspirin-caf 9-06 tablet by ity of feine per 00:00: mouth [place] tablet 00 every 6 Medical (six) Branch hours as needed for Pain. SUMAtriptan Yes [id number] Start 25mg [facility] 25 mg 9-06 x 1 PRN ity of tablet 00:00: Migraine. [place] 00 Max Dose Medical 200mg/24H. Branch May repeat dose x 1 after 2H traZODone 2021-0 Yes [id number] 100mg Take 2 [facility] 50 mg 9-06 tablets by ity of tablet 00:00: mouth at [place] 00 bedtime. Medical Branch Diclofenac Yes [id number] Apply to [facility] Sodium 9-06 [id number] area(s) 4 ity of (VOLTAREN) 00:00: (four) [place] 1 % gel 00 times Medical daily. Branch Apply 4 g qid Lidocaine 5 2021-0 Yes [id number] Apply to [facility] % cream 9-06 [id number] area(s) 2 ity o f 00:00: (two) [place] 00 times Medical daily as Branch needed for Pain (scale 4-6). Apply 5g to affected areas BID PRN butalbital- 2021-0 Yes [id number] 1{tbl} Take 1 [facility] aspirin-caf 9-06 tablet by ity of feine per 00:00: mouth [place] tablet 00 every 6 Medical (six) Branch hours as needed for Pain. SUMAtriptan 0 Yes [id number] Start 25mg [facility] 25 mg 9-06 x 1 PRN ity of tablet 00:00: Migraine. [place] 00 Max Dose Medical 200mg/24H. Branch May repeat dose x 1 after 2H traZODone 2021-0 Yes [id number] 100mg Take 2 [facility] 50 mg 9-06 tablets by ity of tablet 00:00: mouth at [place] 00 bedtime. Medical Branch Diclofenac 2021-0 Yes [id number] Apply to [facility] Sodium 9-06 [id number] area(s) 4 ity of (VOLTAREN) 00:00: (four) [place] 1 % gel 00 times Medical daily. Branch Apply 4 g qid Lidocaine 5 2021-0 Yes [id number] Apply to [facility] % cream - [id number] area(s) 2 ity o f 00:00: (two) [place] 00 times Medical daily as Branch needed for Pain (scale 4-6). Apply 5g to affected areas BID PRN butalbital- 2021-0 Yes [id number] 1{tbl} Take 1 [facility] aspirin-caf 9-06 tablet by ity of feine per 00:00: mouth [place] tablet 00 every 6 Medical (six) Branch hours as needed for Pain. SUMAtriptan 0 Yes [id number] Start 25mg [facility] 25 mg 9-06 x 1 PRN ity of tablet 00:00: Migraine. [place] 00 Max Dose Medical 200mg/24H. Branch May repeat dose x 1 after 2H traZODone 2021-0 Yes [id number] 100mg Take 2 [facility] 50 mg 9-06 tablets by it[facility] of tablet 00:00: mouth at [place] 00 bedtime. Medical Branch Diclofenac 2021-0 Yes [id number] Apply to [facility] Sodium 9-06 [id number] area(s) 4 ity of (VOLTAREN) 00:00: (four) [place] 1 % gel 00 times Medical daily. Branch Apply 4 g qid Lidocaine 5 2021-0 Yes [id number] Apply to [facility] % cream 9- 683909 area(s) 2 ity o f 00:00: (two) [place] 00 times Medical daily as Branch needed for Pain (scale 4-6). Apply 5g to affected areas BID PRN butalbital- 2021-0 Yes [id number] 1{tbl} Take 1 [facility] aspirin-caf 9-06 tablet by ity of feine per 00:00: mouth [place] tablet 00 every 6 Medical (six) Branch hours as needed for Pain. SUMAtriptan Yes [id number] Start 25mg [facility] 25 mg 9-06 x 1 PRN ity of tablet 00:00: Migraine. [place] 00 Max Dose Medical 200mg/24H. Branch May repeat dose x 1 after 2H traZODone 2021- Yes [id number] 100mg Take 2 [facility] 50 mg 9-06 tablets by it[facility] of tablet 00:00: mouth at [place] 00 bedtime. Medical Branch Diclofenac Yes [id number] Apply to [facility] Sodium - [id number] area(s) 4 ity of (VOLTAREN) 00:00: (four) [place] 1 % gel 00 times Medical daily. Branch Apply 4 g qid Lidocaine 5 Yes [id number] Apply to [facility] % cream 12-11 [id number] area(s) 2 ity o f 00:00: (two) [place] 00 times Medical daily as Branch needed for Pain (scale 4-6). Apply 5g to affected areas BID PRN butalbital- Yes [id number] 1{tbl} Take 1 [facility] aspirin-caf 9-06 tablet by ity of feine per 00:00: mouth [place] tablet 00 every 6 Medical (six) Branch hours as needed for Pain. SUMAtriptan Yes [id number] Start 25mg [facility] 25 mg 9-06 x 1 PRN ity of tablet 00:00: Migraine. [place] 00 Max Dose Medical 200mg/24H. Branch May repeat dose x 1 after 2H traZODone 2021- Yes [id number] 100mg Take 2 [facility] 50 mg 9-06 tablets by [facility] of tablet 00:00: mouth at [place] 00 bedtime. Medical Branch Diclofenac Yes [id number] Apply to [facility] Sodium 9- 267644 area(s) 4 ity of (VOLTAREN) 00:00: (four) [place] 1 % gel 00 times Medical daily. Branch Apply 4 g qid Lidocaine 5 Yes [id number] Apply to [facility] % cream 12-11 [id number] area(s) 2 ity o f 00:00: (two) [place] 00 times Medical daily as Branch needed for Pain (scale 4-6). Apply 5g to affected areas BID PRN butalbital- Yes [id number] 1{tbl} Take 1 [facility] aspirin-caf 9-06 tablet by ity of feine per 00:00: mouth [place] tablet 00 every 6 Medical (six) Branch hours as needed for Pain. SUMAtriptan Yes [id number] Start 25mg [facility] 25 mg 9 x 1 PRN ity of tablet 00:00: Migraine. [place] 00 Max Dose Medical 200mg/24H. Branch May repeat dose x 1 after 2H traZODone Yes [id number] 100mg Take 2 [facility] 50 mg - tablets by it[facility] of tablet 00:00: mouth at [place] 00 bedtime. Medical Branch Diclofenac Yes [id number] Apply to [facility] Sodium 12-11 [id number] area(s) 4 ity of (VOLTAREN) 00:00: (four) [place] 1 % gel 00 times Medical daily. Branch Apply 4 g qid Lidocaine 5 Yes [id number] Apply to [facility] % cream 12-11 [id number] area(s) 2 ity o f 00:00: (two) [place] 00 times Medical daily as Branch needed for Pain (scale 4-6). Apply 5g to affected areas BID PRN butalbital- Yes [id number] 1{tbl} Take 1 [facility] aspirin-caf 9-06 tablet by ity of feine per 00:00: mouth [place] tablet 00 every 6 Medical (six) Branch hours as needed for Pain. Diclofenac Yes [id number] Apply to [facility] Sodium 9- 602623 area(s) 4 ity of (VOLTAREN) 00:00: (four) [place] 1 % gel 00 times Medical daily. Branch Apply 4 g qid Lidocaine 5 Yes [id number] Apply to [facility] % cream 12-11 [id number] area(s) 2 ity o f 00:00: (two) [place] 00 times Medical daily as Branch needed for Pain (scale 4-6). Apply 5g to affected areas BID PRN butalbital- 2022-0 Yes [id number] 1{tbl} Take 1 [facility] aspirin-caf 9-06 tablet by ity of feine per 00:00: mouth [place] tablet 00 every 6 Medical (six) Branch hours as needed for Pain. Diclofenac 2021-0 Yes [id number] Apply to [facility] Sodium 9-06 [id number] area(s) 4 ity of (VOLTAREN) 00:00: (four) [place] 1 % gel 00 times Medical daily. Branch Apply 4 g qid Lidocaine 5 2021-0 Yes [id number] Apply to [facility] % cream 9-06 [id number] area(s) 2 ity o f 00:00: (two) [place] 00 times Medical daily as Branch needed for Pain (scale 4-6). Apply 5g to affected areas BID PRN butalbital- 2021-0 Yes [id number] 1{tbl} Take 1 [facility] aspirin-caf 9-06 tablet by ity of feine per 00:00: mouth [place] tablet 00 every 6 Medical (six) Branch hours as needed for Pain. Diclofenac 2021-0 Yes [id number] Apply to [facility] Sodium 9-06 [id number] area(s) 4 ity of (VOLTAREN) 00:00: (four) [place] 1 % gel 00 times Medical daily. Branch Apply 4 g qid Lidocaine 5 2021-0 Yes [id number] Apply to [facility] % cream 9-06 [id number] area(s) 2 ity o f 00:00: (two) [place] 00 times Medical daily as Branch needed for Pain (scale 4-6). Apply 5g to affected areas BID PRN butalbital- 2021-0 Yes [id number] 1{tbl} Take 1 [facility] aspirin-caf 9-06 tablet by ity of feine per 00:00: mouth [place] tablet 00 every 6 Medical (six) Branch hours as needed for Pain. Diclofenac 2021-0 Yes [id number] Apply to [facility] Sodium 9-06 [id number] area(s) 4 ity of (VOLTAREN) 00:00: (four) [place] 1 % gel 00 times Medical daily. Branch Apply 4 g qid Lidocaine 5 2021-0 Yes [id number] Apply to [facility] % cream 9-06 [id number] area(s) 2 ity o f 00:00: (two) [place] 00 times Medical daily as Branch needed for Pain (scale 4-6). Apply 5g to affected areas BID PRN butalbital- 2021-0 Yes [id number] 1{tbl} Take 1 [facility] aspirin-caf 9-06 tablet by ity of feine per 00:00: mouth [place] tablet 00 every 6 Medical (six) Branch hours as needed for Pain. Diclofenac 2021-0 Yes [id number] Apply to [facility] Sodium 9-06 [id number] area(s) 4 ity of (VOLTAREN) 00:00: (four) [place] 1 % gel 00 times Medical daily. Branch Apply 4 g qid Lidocaine 5 2021-0 Yes [id number] Apply to [facility] % cream 9-06 [id number] area(s) 2 ity o f 00:00: (two) [place] 00 times Medical daily as Branch needed for Pain (scale 4-6). Apply 5g to affected areas BID PRN butalbital- 2021-0 Yes [id number] 1{tbl} Take 1 [facility] aspirin-caf 9-06 tablet by ity of feine per 00:00: mouth [place] tablet 00 every 6 Medical (six) Branch hours as needed for Pain. Diclofenac 2021-0 Yes [id number] Apply to [facility] Sodium 9-06 [id number] area(s) 4 ity of (VOLTAREN) 00:00: (four) [place] 1 % gel 00 times Medical daily. Branch Apply 4 g qid Lidocaine 5 2021-0 Yes [id number] Apply to [facility] % cream 9-06 [id number] area(s) 2 ity o f 00:00: (two) [place] 00 times Medical daily as Branch needed for Pain (scale 4-6). Apply 5g to affected areas BID PRN butalbital- 2021-0 Yes [id number] 1{tbl} Take 1 [facility] aspirin-caf 9-06 tablet by ity of feine per 00:00: mouth [place] tablet 00 every 6 Medical (six) Branch hours as needed for Pain. Diclofenac 2021-0 Yes [id number] Apply to [facility] Sodium 9-06 [id number] area(s) 4 ity of (VOLTAREN) 00:00: (four) [place] 1 % gel 00 times Medical daily. Branch Apply 4 g qid Lidocaine 5 2021-0 Yes [id number] Apply to [facility] % cream 9-06 [id number] area(s) 2 ity o f 00:00: (two) [place] 00 times Medical daily as Branch needed for Pain (scale 4-6). Apply 5g to affected areas BID PRN butalbital- 2022-0 Yes [id number] 1{tbl} Take 1 [facility] aspirin-caf 9-06 tablet by ity of feine per 00:00: mouth [place] tablet 00 every 6 Medical (six) Branch hours as needed for Pain. Diclofenac 2021-0 Yes [id number] Apply to [facility] Sodium 9-06 [id number] area(s) 4 ity of (VOLTAREN) 00:00: (four) [place] 1 % gel 00 times Medical daily. Branch Apply 4 g qid Lidocaine 5 2021-0 Yes [id number] Apply to [facility] % cream 9-06 [id number] area(s) 2 ity o f 00:00: (two) [place] 00 times Medical daily as Branch needed for Pain (scale 4-6). Apply 5g to affected areas BID PRN butalbital- 2-0 Yes [id number] 1{tbl} Take 1 [facility] aspirin-caf 9-06 tablet by ity of feine per 00:00: mouth [place] tablet 00 every 6 Medical (six) Branch hours as needed for Pain. Diclofenac 2021-0 Yes [id number] Apply to [facility] Sodium 9-06 [id number] area(s) 4 ity of (VOLTAREN) 00:00: (four) [place] 1 % gel 00 times Medical daily. Branch Apply 4 g qid Lidocaine 5 2021-0 Yes [id number] Apply to [facility] % cream 9-06 [id number] area(s) 2 ity o f 00:00: (two) [place] 00 times Medical daily as Branch needed for Pain (scale 4-6). Apply 5g to affected areas BID PRN butalbital- 2022-0 Yes [id number] 1{tbl} Take 1 [facility] aspirin-caf 9-06 tablet by ity of feine per 00:00: mouth [place] tablet 00 every 6 Medical (six) Branch hours as needed for Pain. Diclofenac 2-0 Yes [id number] Apply to [facility] Sodium 9-06 [id number] area(s) 4 ity of (VOLTAREN) 00:00: (four) [place] 1 % gel 00 times Medical daily. Branch Apply 4 g qid Lidocaine 5 2021-0 Yes [id number] Apply to [facility] % cream 9-06 [id number] area(s) 2 ity o f 00:00: (two) [place] 00 times Medical daily as Branch needed for Pain (scale 4-6). Apply 5g to affected areas BID PRN butalbital- 2021-0 Yes [id number] 1{tbl} Take 1 [facility] aspirin-caf 9-06 tablet by ity of feine per 00:00: mouth [place] tablet 00 every 6 Medical (six) Branch hours as needed for Pain. Diclofenac 2021-0 Yes [id number] Apply to [facility] Sodium 9-06 [id number] area(s) 4 ity of (VOLTAREN) 00:00: (four) [place] 1 % gel 00 times Medical daily. Branch Apply 4 g qid Lidocaine 5 2021-0 Yes [id number] Apply to [facility] % cream 9-06 [id number] area(s) 2 ity o f 00:00: (two) [place] 00 times Medical daily as Branch needed for Pain (scale 4-6). Apply 5g to affected areas BID PRN butalbital- 2021-0 Yes [id number] 1{tbl} Take 1 [facility] aspirin-caf 9-06 tablet by ity of feine per 00:00: mouth [place] tablet 00 every 6 Medical (six) Branch hours as needed for Pain. Diclofenac 2021-0 Yes [id number] Apply to [facility] Sodium 9-06 [id number] area(s) 4 ity of (VOLTAREN) 00:00: (four) [place] 1 % gel 00 times Medical daily. Branch Apply 4 g qid Lidocaine 5 2021-0 Yes [id number] Apply to [facility] % cream 9-06 [id number] area(s) 2 ity o f 00:00: (two) [place] 00 times Medical daily as Branch needed for Pain (scale 4-6). Apply 5g to affected areas BID PRN butalbital- 2021-0 Yes [id number] 1{tbl} Take 1 [facility] aspirin-caf 9-06 tablet by ity of feine per 00:00: mouth [place] tablet 00 every 6 Medical (six) Branch hours as needed for Pain. Diclofenac 2021-0 Yes [id number] Apply to [facility] Sodium 9-06 [id number] area(s) 4 ity of (VOLTAREN) 00:00: (four) [place] 1 % gel 00 times Medical daily. Branch Apply 4 g qid Lidocaine 5 2021-0 Yes [id number] Apply to [facility] % cream 9-06 885824 area(s) 2 ity o f 00:00: (two) [place] 00 times Medical daily as Branch needed for Pain (scale 4-6). Apply 5g to affected areas BID PRN butalbital- 2021-0 Yes [id number] 1{tbl} Take 1 [facility] aspirin-caf 9-06 tablet by ity of feine per 00:00: mouth [place] tablet 00 every 6 Medical (six) Branch hours as needed for Pain. Diclofenac 2021-0 Yes [id number] Apply to [facility] Sodium 9-06 [id number] area(s) 4 ity of (VOLTAREN) 00:00: (four) [place] 1 % gel 00 times Medical daily. Branch Apply 4 g qid Lidocaine 5 2021-0 Yes [id number] Apply to [facility] % cream 9-06 [id number] area(s) 2 ity o f 00:00: (two) [place] 00 times Medical daily as Branch needed for Pain (scale 4-6). Apply 5g to affected areas BID PRN butalbital- 2021-0 Yes [id number] 1{tbl} Take 1 [facility] aspirin-caf 9-06 tablet by ity of feine per 00:00: mouth [place] tablet 00 every 6 Medical (six) Branch hours as needed for Pain. Diclofenac 2021-0 Yes [id number] Apply to [facility] Sodium 9-06 [id number] area(s) 4 ity of (VOLTAREN) 00:00: (four) [place] 1 % gel 00 times Medical daily. Branch Apply 4 g qid Lidocaine 5 2021-0 Yes [id number] Apply to [facility] % cream 9-06 [id number] area(s) 2 ity o f 00:00: (two) [place] 00 times Medical daily as Branch needed for Pain (scale 4-6). Apply 5g to affected areas BID PRN butalbital- 2021-0 Yes [id number] 1{tbl} Take 1 [facility] aspirin-caf 9-06 tablet by ity of feine per 00:00: mouth [place] tablet 00 every 6 Medical (six) Branch hours as needed for Pain. Diclofenac 2021-0 Yes [id number] Apply to [facility] Sodium 9-06 [id number] area(s) 4 ity of (VOLTAREN) 00:00: (four) [place] 1 % gel 00 times Medical daily. Branch Apply 4 g qid Lidocaine 5 2021-0 Yes [id number] Apply to [facility] % cream 9-06 [id number] area(s) 2 ity o f 00:00: (two) [place] 00 times Medical daily as Branch needed for Pain (scale 4-6). Apply 5g to affected areas BID PRN butalbital- 2021-0 Yes [id number] 1{tbl} Take 1 [facility] aspirin-caf 9-06 tablet by ity of feine per 00:00: mouth [place] tablet 00 every 6 Medical (six) Branch hours as needed for Pain. Diclofenac 2021-0 Yes [id number] Apply to [facility] Sodium 9-06 [id number] area(s) 4 ity of (VOLTAREN) 00:00: (four) [place] 1 % gel 00 times Medical daily. Branch Apply 4 g qid Lidocaine 5 2021-0 Yes [id number] Apply to [facility] % cream 9-06 [id number] area(s) 2 ity o f 00:00: (two) [place] 00 times Medical daily as Branch needed for Pain (scale 4-6). Apply 5g to affected areas BID PRN butalbital- 2021-0 Yes [id number] 1{tbl} Take 1 [facility] aspirin-caf 9-06 tablet by ity of feine per 00:00: mouth [place] tablet 00 every 6 Medical (six) Branch hours as needed for Pain. Diclofenac 2021-0 Yes [id number] Apply to [facility] Sodium 9-06 [id number] area(s) 4 ity of (VOLTAREN) 00:00: (four) [place] 1 % gel 00 times Medical daily. Branch Apply 4 g qid Lidocaine 5 2021-0 Yes [id number] Apply to [facility] % cream 9-06 [id number] area(s) 2 ity o f 00:00: (two) [place] 00 times Medical daily as Branch needed for Pain (scale 4-6). Apply 5g to affected areas BID PRN butalbital- 2-0 Yes [id number] 1{tbl} Take 1 [facility] aspirin-caf 9-06 tablet by ity of feine per 00:00: mouth [place] tablet 00 every 6 Medical (six) Branch hours as needed for Pain. Lidocaine 5 2021-0 Yes [id number] Apply to [facility] % cream 9 [id number] area(s) 2 ity o f 00:00: (two) [place] 00 times Medical daily as Branch needed for Pain (scale 4-6). Apply 5g to affected areas BID PRN Lidocaine 5 Yes [id number] Apply to [facility] % cream 9 [id number] area(s) 2 ity o f 00:00: (two) [place] 00 times Medical daily as Branch needed for Pain (scale 4-6). Apply 5g to affected areas BID PRN Lidocaine 5 Yes [id number] Apply to [facility] % cream 12-11 [id number] area(s) 2 ity o f 00:00: (two) [place] 00 times Medical daily as Branch needed for Pain (scale 4-6). Apply 5g to affected areas BID PRN Lidocaine 5 Yes [id number] Apply to [facility] % cream 12-11 [id number] area(s) 2 ity o f 00:00: (two) [place] 00 times Medical daily as Branch needed for Pain (scale 4-6). Apply 5g to affected areas BID PRN Lidocaine Yes [id number] Apply to [facility] % cream 12-11 [id number] area(s) 2 ity o f 00:00: (two) [place] 00 times Medical daily as Branch needed for Pain (scale 4-6). Apply 5g to affected areas BID PRN Lidocaine Yes [id number] Apply to [facility] % cream 12-11 [id number] area(s) 2 ity o f 00:00: (two) [place] 00 times Medical daily as Branch needed for Pain (scale 4-6). Apply 5g to affected areas BID PRN Lidocaine Yes [id number] Apply to [facility] % cream 12-11 [id number] area(s) 2 ity o f 00:00: (two) [place] 00 times Medical daily as Branch needed for Pain (scale 4-6). Apply 5g to affected areas BID PRN Lidocaine 5 Yes [id number] Apply to [facility] % cream 12-11 [id number] area(s) 2 ity o f 00:00: (two) [place] 00 times Medical daily as Branch needed for Pain (scale 4-6). Apply 5g to affected areas BID PRN Lidocaine 5 2022-0 Yes [id number] Apply to [facility] % cream 9 [id number] area(s) 2 ity o f 00:00: (two) [place] 00 times Medical daily as Branch needed for Pain (scale 4-6). Apply 5g to affected areas BID PRN Lidocaine 5 Yes [id number] Apply to [facility] % cream 9 803643 area(s) 2 ity o f 00:00: (two) [place] 00 times Medical daily as Branch needed for Pain (scale 4-6). Apply 5g to affected areas BID PRN Lidocaine 5 Yes [id number] Apply to [facility] % cream 9 332133 area(s) 2 ity o f 00:00: (two) [place] 00 times Medical daily as Branch needed for Pain (scale 4-6). Apply 5g to affected areas BID PRN Lidocaine 5 Yes [id number] Apply to [facility] % cream 12-11 [id number] area(s) 2 ity o f 00:00: (two) [place] 00 times Medical daily as Branch needed for Pain (scale 4-6). Apply 5g to affected areas BID PRN Lidocaine Yes [id number] Apply to [facility] % cream 12-11 [id number] area(s) 2 ity o f 00:00: (two) [place] 00 times Medical daily as Branch needed for Pain (scale 4-6). Apply 5g to affected areas BID PRN Lidocaine Yes [id number] Apply to [facility] % cream 12-11 [id number] area(s) 2 ity o f 00:00: (two) [place] 00 times Medical daily as Branch needed for Pain (scale 4-6). Apply 5g to affected areas BID PRN Lidocaine Yes [id number] Apply to [facility] % cream 9 138023 area(s) 2 ity o f 00:00: (two) [place] 00 times Medical daily as Branch needed for Pain (scale 4-6). Apply 5g to affected areas BID PRN Lidocaine 5 Yes [id number] Apply to [facility] % cream 9 657824 area(s) 2 ity o f 00:00: (two) [place] 00 times Medical daily as Branch needed for Pain (scale 4-6). Apply 5g to affected areas BID PRN Lidocaine 5 Yes [id number] Apply to [facility] % cream 9- 460115 area(s) 2 ity o f 00:00: (two) [place] 00 times Medical daily as Branch needed for Pain (scale 4-6). Apply 5g to affected areas BID PRN Lidocaine 5 Yes [id number] Apply to [facility] % cream 9- 708413 area(s) 2 ity o f 00:00: (two) [place] 00 times Medical daily as Branch needed for Pain (scale 4-6). Apply 5g to affected areas BID PRN Lidocaine 5 Yes [id number] Apply to [facility] % cream - 954222 area(s) 2 ity o f 00:00: (two) [place] 00 times Medical daily as Branch needed for Pain (scale 4-6). Apply 5g to affected areas BID PRN Lidocaine 5 Yes [id number] Apply to [facility] % cream 12-11 [id number] area(s) 2 ity o f 00:00: (two) [place] 00 times Medical daily as Branch needed for Pain (scale 4-6). Apply 5g to affected areas BID PRN Lidocaine Yes [id number] Apply to [facility] % cream 12-11 118990 area(s) 2 ity o f 00:00: (two) [place] 00 times Medical daily as Branch needed for Pain (scale 4-6). Apply 5g to affected areas BID PRN Lidocaine Yes [id number] Apply to [facility] % cream 12-11 [id number] area(s) 2 ity o f 00:00: (two) [place] 00 times Medical daily as Branch needed for Pain (scale 4-6). Apply 5g to affected areas BID PRN Lidocaine Yes [id number] Apply to [facility] % cream 9 356329 area(s) 2 ity o f 00:00: (two) [place] 00 times Medical daily as Branch needed for Pain (scale 4-6). Apply 5g to affected areas BID PRN Lidocaine 5 Yes [id number] Apply to [facility] % cream 9- 870654 area(s) 2 ity o f 00:00: (two) [place] 00 times Medical daily as Branch needed for Pain (scale 4-6). Apply 5g to affected areas BID PRN Lidocaine 5 Yes [id number] Apply to [facility] % cream 9- 171323 area(s) 2 ity o f 00:00: (two) [place] 00 times Medical daily as Branch needed for Pain (scale 4-6). Apply 5g to affected areas BID PRN Lidocaine Yes [id number] Apply to [facility] % cream 9- 746528 area(s) 2 ity o f 00:00: (two) [place] 00 times Medical daily as Branch needed for Pain (scale 4-6). Apply 5g to affected areas BID PRN Lidocaine Yes [id number] Apply to [facility] % cream 9- 323220 area(s) 2 ity o f 00:00: (two) [place] 00 times Medical daily as Branch needed for Pain (scale 4-6). Apply 5g to affected areas BID PRN Lidocaine Yes [id number] Apply to [facility] % cream - 379819 area(s) 2 ity o f 00:00: (two) [place] 00 times Medical daily as Branch needed for Pain (scale 4-6). Apply 5g to affected areas BID PRN Lidocaine Yes [id number] Apply to [facility] % cream 12-11 [id number] area(s) 2 ity o f 00:00: (two) [place] 00 times Medical daily as Branch needed for Pain (scale 4-6). Apply 5g to affected areas BID PRN Lidocaine Yes [id number] Apply to [facility] % cream 12-11 [id number] area(s) 2 ity o f 00:00: (two) [place] 00 times Medical daily as Branch needed for Pain (scale 4-6). Apply 5g to affected areas BID PRN Lidocaine Yes [id number] Apply to [facility] % cream 9- 096590 area(s) 2 ity o f 00:00: (two) [place] 00 times Medical daily as Branch needed for Pain (scale 4-6). Apply 5g to affected areas BID PRN Lidocaine Yes [id number] Apply to [facility] % cream 9- 645573 area(s) 2 ity o f 00:00: (two) [place] 00 times Medical daily as Branch needed for Pain (scale 4-6). Apply 5g to affected areas BID PRN Lidocaine Yes [id number] Apply to [facility] % cream 9- 159664 area(s) 2 ity o f 00:00: (two) [place] 00 times Medical daily as Branch needed for Pain (scale 4-6). Apply 5g to affected areas BID PRN Lidocaine 5 2021- Yes [id number] Apply to [facility] % cream 9- 162845 area(s) 2 ity o f 00:00: (two) [place] 00 times Medical daily as Branch needed for Pain (scale 4-6). Apply 5g to affected areas BID PRN Lidocaine 2021- Yes [id number] Apply to [facility] % cream 12-11 336684 area(s) 2 ity o f 00:00: (two) [place] 00 times Medical daily as Branch needed for Pain (scale 4-6). Apply 5g to affected areas BID PRN Lidocaine 5 Yes [id number] Apply to [facility] % cream 12-11 [id number] area(s) 2 ity o f 00:00: (two) [place] 00 times Medical daily as Branch needed for Pain (scale 4-6). Apply 5g to affected areas BID PRN Lidocaine Yes [id number] Apply to [facility] % cream 12-11 [id number] area(s) 2 ity o f 00:00: (two) [place] 00 times Medical daily as Branch needed for Pain (scale 4-6). Apply 5g to affected areas BID PRN Lidocaine Yes [id number] Apply to [facility] % cream 12-11 [id number] area(s) 2 ity o f 00:00: (two) [place] 00 times Medical daily as Branch needed for Pain (scale 4-6). Apply 5g to affected areas BID PRN Lidocaine 2021- Yes [id number] Apply to [facility] % cream 12-11 [id number] area(s) 2 ity o f 00:00: (two) [place] 00 times Medical daily as Branch needed for Pain (scale 4-6). Apply 5g to affected areas BID PRN Lidocaine 5 2021- Yes [id number] Apply to [facility] % cream 9- 378799 area(s) 2 ity o f 00:00: (two) [place] 00 times Medical daily as Branch needed for Pain (scale 4-6). Apply 5g to affected areas BID PRN Lidocaine 2021- Yes [id number] Apply to [facility] % cream 12-11 707512 area(s) 2 ity o f 00:00: (two) [place] 00 times Medical daily as Branch needed for Pain (scale 4-6). Apply 5g to affected areas BID PRN Lidocaine 2021- Yes [id number] Apply to [facility] % cream 9- 197180 area(s) 2 ity o f 00:00: (two) [place] 00 times Medical daily as Branch needed for Pain (scale 4-6). Apply 5g to affected areas BID PRN Lidocaine 2021- Yes [id number] Apply to [facility] % cream 9- 750247 area(s) 2 ity o f 00:00: (two) [place] 00 times Medical daily as Branch needed for Pain (scale 4-6). Apply 5g to affected areas BID PRN Lidocaine Yes [id number] Apply to [facility] % cream 9- 252636 area(s) 2 ity o f 00:00: (two) [place] 00 times Medical daily as Branch needed for Pain (scale 4-6). Apply 5g to affected areas BID PRN Lidocaine Yes [id number] Apply to [facility] % cream 9- 799994 area(s) 2 ity o f 00:00: (two) [place] 00 times Medical daily as Branch needed for Pain (scale 4-6). Apply 5g to affected areas BID PRN Lidocaine Yes [id number] Apply to [facility] % cream 9- 122632 area(s) 2 ity o f 00:00: (two) [place] 00 times Medical daily as Branch needed for Pain (scale 4-6). Apply 5g to affected areas BID PRN Lidocaine Yes [id number] Apply to [facility] % cream 9- 078762 area(s) 2 ity o f 00:00: (two) [place] 00 times Medical daily as Branch needed for Pain (scale 4-6). Apply 5g to affected areas BID PRN Lidocaine 5 2021- Yes [id number] Apply to [facility] % cream 9- 253464 area(s) 2 ity o f 00:00: (two) [place] 00 times Medical daily as Branch needed for Pain (scale 4-6). Apply 5g to affected areas BID PRN Lidocaine 5 2021- Yes [id number] Apply to [facility] % cream 9- 263416 area(s) 2 ity o f 00:00: (two) [place] 00 times Medical daily as Branch needed for Pain (scale 4-6). Apply 5g to affected areas BID PRN Lidocaine 5 2021-0 Yes [id number] Apply to [facility] % cream 9- 408676 area(s) 2 ity o f 00:00: (two) [place] 00 times Medical daily as Branch needed for Pain (scale 4-6). Apply 5g to affected areas BID PRN Lidocaine 5 2021-0 Yes [id number] Apply to [facility] % cream 9- 414647 area(s) 2 ity o f 00:00: (two) [place] 00 times Medical daily as Branch needed for Pain (scale 4-6). Apply 5g to affected areas BID PRN Lidocaine 5 2021-0 Yes [id number] Apply to [facility] % cream 9- 361643 area(s) 2 ity o f 00:00: (two) [place] 00 times Medical daily as Branch needed for Pain (scale 4-6). Apply 5g to affected areas BID PRN Lidocaine 5 2021-0 Yes [id number] Apply to [facility] % cream 9- 959724 area(s) 2 ity o f 00:00: (two) [place] 00 times Medical daily as Branch needed for Pain (scale 4-6). Apply 5g to affected areas BID PRN Lidocaine 2021-0 Yes [id number] Apply to [facility] % cream 9- [id number] area(s) 2 ity o f 00:00: (two) [place] 00 times Medical daily as Branch needed for Pain (scale 4-6). Apply 5g to affected areas BID PRN Lidocaine 2021-0 Yes [id number] Apply to [facility] % cream 9- [id number] area(s) 2 ity o f 00:00: (two) [place] 00 times Medical daily as Branch needed for Pain (scale 4-6). Apply 5g to affected areas BID PRN Lidocaine 5 2021-0 Yes [id number] Apply to [facility] % cream 9- [id number] area(s) 2 ity o f 00:00: (two) [place] 00 times Medical daily as Branch needed for Pain (scale 4-6). Apply 5g to affected areas BID PRN Lidocaine 5 2021-0 Yes [id number] Apply to [facility] % cream 9- [id number] area(s) 2 ity o f 00:00: (two) [place] 00 times Medical daily as Branch needed for Pain (scale 4-6). Apply 5g to affected areas BID PRN Lidocaine 5 2021- Yes [id number] Apply to [facility] % cream 9- [id number] area(s) 2 ity o f 00:00: (two) [place] 00 times Medical daily as Branch needed for Pain (scale 4-6). Apply 5g to affected areas BID PRN Lidocaine 2021- Yes [id number] Apply to [facility] % cream 9 [id number] area(s) 2 ity o f 00:00: (two) [place] 00 times Medical daily as Branch needed for Pain (scale 4-6). Apply 5g to affected areas BID PRN Lidocaine 5 Yes [id number] Apply to [facility] % cream 9 [id number] area(s) 2 ity o f 00:00: (two) [place] 00 times Medical daily as Branch needed for Pain (scale 4-6). Apply 5g to affected areas BID PRN Lidocaine Yes [id number] Apply to [facility] % cream 12-11 [id number] area(s) 2 ity o f 00:00: (two) [place] 00 times Medical daily as Branch needed for Pain (scale 4-6). Apply 5g to affected areas BID PRN Lidocaine Yes [id number] Apply to [facility] % cream 9 [id number] area(s) 2 ity o f 00:00: (two) [place] 00 times Medical daily as Branch needed for Pain (scale 4-6). Apply 5g to affected areas BID PRN Lidocaine Yes [id number] Apply to [facility] % cream 12-11 [id number] area(s) 2 ity o f 00:00: (two) [place] 00 times Medical daily as Branch needed for Pain (scale 4-6). Apply 5g to affected areas BID PRN Lidocaine 5 2021- Yes [id number] Apply to [facility] % cream 9- [id number] area(s) 2 ity o f 00:00: (two) [place] 00 times Medical daily as Branch needed for Pain (scale 4-6). Apply 5g to affected areas BID PRN Lidocaine 5 2021- Yes [id number] Apply to [facility] % cream 9- [id number] area(s) 2 ity o f 00:00: (two) [place] 00 times Medical daily as Branch needed for Pain (scale 4-6). Apply 5g to affected areas BID PRN Lidocaine 5 Yes [id number] Apply to [facility] % cream 12-11 [id number] area(s) 2 ity o f 00:00: (two) [place] 00 times Medical daily as Branch needed for Pain (scale 4-6). Apply 5g to affected areas BID PRN Lidocaine 5 Yes [id number] Apply to [facility] % cream 12-11 [id number] area(s) 2 ity o f 00:00: (two) [place] 00 times Medical daily as Branch needed for Pain (scale 4-6). Apply 5g to affected areas BID PRN Lidocaine 5 Yes [id number] Apply to [facility] % cream 12-11 [id number] area(s) 2 ity o f 00:00: (two) [place] 00 times Medical daily as Branch needed for Pain (scale 4-6). Apply 5g to affected areas BID PRN Lidocaine 5 Yes [id number] Apply to [facility] % cream 12-11 [id number] area(s) 2 ity o f 00:00: (two) [place] 00 times Medical daily as Branch needed for Pain (scale 4-6). Apply 5g to affected areas BID PRN Lidocaine 5 2022- No [id number] Apply to [facility] % cream 12-11 [id number] area(s) 2 ity of 00:00: 00:00 (two) [place] 00 :00 times Medical daily as Branch needed for Pain (scale 4-6). Apply 5g to affected areas BID PRN butalbital- 2022- No [id number] 1{tbl} Take 1 [facility] aspirin-caf 12-11 tablet by it tammy per 00:00: 00:00 mouth [place] tablet 00 :00 every 6 Medical (six) Branch hours as needed for Pain. Diclofenac 2022- No [id number] Apply to [facility] Sodium 12-11 [id number] area(s) 4 ity o f (VOLTAREN) 00:00: 00:00 (four) [place] 1 % gel 00 :00 times Medical daily. Branch Apply 4 g qid butalbital- 2022- No [id number] 1{tbl} Take 1 [facility] aspirin-caf 12-11 tablet by it y of feine per 00:00: 00:00 mouth [place] tablet 00 :00 every 6 Medical (six) Branch hours as needed for Pain. Diclofenac 2022- No [id number] Apply to [facility] Sodium 12-11 [id number] area(s) 4 ity o f (VOLTAREN) 00:00: 00:00 (four) [place] 1 % gel 00 :00 times Medical daily. Branch Apply 4 g qid butalbital- 2022- No [id number] 1{tbl} Take 1 [facility] aspirin-caf 12-11 tablet by it y of feine per 00:00: 00:00 mouth [place] tablet 00 :00 every 6 Medical (six) Branch hours as needed for Pain. Diclofenac 2022- No [id number] Apply to [facility] Sodium 12-11 [id number] area(s) 4 ity o f (VOLTAREN) 00:00: 00:00 (four) [place] 1 % gel 00 :00 times Medical daily. Branch Apply 4 g qid butalbital- 2022- No [id number] 1{tbl} Take 1 [facility] aspirin-caf 12-11 tablet by it y of feine per 00:00: 00:00 mouth [place] tablet 00 :00 every 6 Medical (six) Branch hours as needed for Pain. Diclofenac 2022- No [id number] Apply to [facility] Sodium 12-11 [id number] area(s) 4 ity o f (VOLTAREN) 00:00: 00:00 (four) [place] 1 % gel 00 :00 times Medical daily. Branch Apply 4 g qid butalbital- 2022- No [id number] 1{tbl} Take 1 [facility] aspirin-caf 12-11 tablet by it y of feine per 00:00: 00:00 mouth [place] tablet 00 :00 every 6 Medical (six) Branch hours as needed for Pain. Diclofenac 2022- No [id number] Apply to [facility] Sodium 12-11 [id number] area(s) 4 ity o f (VOLTAREN) 00:00: 00:00 (four) [place] 1 % gel 00 :00 times Medical daily. Branch Apply 4 g qid butalbital- 2022- No [id number] 1{tbl} Take 1 [facility] aspirin-caf 12-11 tablet by it tammy per 00:00: 00:00 mouth [place] tablet 00 :00 every 6 Medical (six) Branch hours as needed for Pain. SUMAtriptan 2021- No [id number] Start 25mg [facility] 25 mg 12-11 x 1 PRN ity of tablet 00:00: 00:00 Migraine. [place] 00 :00 Max Dose Medical 200mg/24H. Branch May repeat dose x 1 after 2H traZODone 2021- No [id number] 100mg Take 2 [facility] 50 mg 12-11 tablets by ity of tablet 00:00: 00:00 mouth at [place] 00 :00 bedtime. Medical Branch SUMAtriptan 2021- No [id number] Start 25mg [facility] 25 mg 12-11 x 1 PRN ity of tablet 00:00: 00:00 Migraine. [place] 00 :00 Max Dose Medical 200mg/24H. Branch May repeat dose x 1 after 2H traZODone 2021- No [id number] 100mg Take 2 [facility] 50 mg 12-11 tablets by ity of tablet 00:00: 00:00 mouth at [place] 00 :00 bedtime. Medical Branch SUMAtriptan 2021- No [id number] Start 25mg [facility] 25 mg 12-11 x 1 PRN ity of tablet 00:00: 00:00 Migraine. [place] 00 :00 Max Dose Medical 200mg/24H. Branch May repeat dose x 1 after 2H traZODone 2021- No [id number] 100mg Take 2 [facility] 50 mg 12-1118 tablets by ity of tablet 00:00: 00:00 mouth at [place] 00 :00 bedtime. Medical Branch SUMAtriptan 2021- No [id number] Start 25mg [facility] 25 mg 12-11 x 1 PRN ity of tablet 00:00: 00:00 Migraine. [place] 00 :00 Max Dose Medical 200mg/24H. Branch May repeat dose x 1 after 2H traZODone 0 2021- No [id number] 100mg Take 2 [facility] 50 mg 12-1118 tablets by ity of tablet 00:00: 00:00 mouth at [place] 00 :00 bedtime. Medical Branch SUMAtriptan 2021- No [id number] Start 25mg [facility] 25 mg 12-11 x 1 PRN ity of tablet 00:00: 00:00 Migraine. [place] 00 :00 Max Dose Medical 200mg/24H. Branch May repeat dose x 1 after 2H traZODone 2021- No [id number] 100mg Take 2 [facility] 50 mg 12-1118 tablets by ity of tablet 00:00: 00:00 mouth at [place] 00 :00 bedtime. Medical Branch SUMAtriptan 2021- No [id number] Start 25mg [facility] 25 mg 12-11 x 1 PRN ity of tablet 00:00: 00:00 Migraine. [place] 00 :00 Max Dose Medical 200mg/24H. Branch May repeat dose x 1 after 2H traZODone 2021- No [id number] 100mg Take 2 [facility] 50 mg 12-11 tablets by ity of tablet 00:00: 00:00 mouth at [place] 00 :00 bedtime. Medical Branch ivermectin Yes APPLY [facility] 0.5 % 5-20 THROUGHLY ity of lotion 00:00: TO HAIR [place] 00 AND SCALP Medical 1 FULL Branch TUBE AND RINCE OUT WITH WATER AFTER 10 MINUTES FOR 1 DOSE ivermectin Yes APPLY [facility] 0.5 % 5-20 THROUGHLY ity of lotion 00:00: TO HAIR [place] 00 AND SCALP Medical 1 FULL Branch TUBE AND RINCE OUT WITH WATER AFTER 10 MINUTES FOR 1 DOSE ivermectin Yes APPLY [facility] 0.5 % 5-20 THROUGHLY ity of lotion 00:00: TO HAIR [place] 00 AND SCALP Medical 1 FULL Branch TUBE AND RINCE OUT WITH WATER AFTER 10 MINUTES FOR 1 DOSE ivermectin Yes APPLY [facility] 0.5 % 5-20 THROUGHLY ity of lotion 00:00: TO HAIR [place] 00 AND SCALP Medical 1 FULL Branch TUBE AND RINCE OUT WITH WATER AFTER 10 MINUTES FOR 1 DOSE ivermectin 2021-0 Yes APPLY [facility] 0.5 % 5-20 THROUGHLY ity of lotion 00:00: TO HAIR [place] 00 AND SCALP Medical 1 FULL Branch TUBE AND RINCE OUT WITH WATER AFTER 10 MINUTES FOR 1 DOSE ivermectin 0 Yes APPLY Univer s 0.5 % 5-20 THROUGHLY ity of lotion 00:00: TO HAIR [place] 00 AND SCALP Medical 1 FULL Branch TUBE AND RINCE OUT WITH WATER AFTER 10 MINUTES FOR 1 DOSE ivermectin 0 Yes APPLY Univer s 0.5 % 5-20 THROUGHLY ity of lotion 00:00: TO HAIR [place] 00 AND SCALP Medical 1 FULL Branch TUBE AND RINCE OUT WITH WATER AFTER 10 MINUTES FOR 1 DOSE ivermectin 0 Yes APPLY Univer s 0.5 % 5-20 THROUGHLY ity of lotion 00:00: TO HAIR [place] 00 AND SCALP Medical 1 FULL Branch TUBE AND RINCE OUT WITH WATER AFTER 10 MINUTES FOR 1 DOSE ivermectin 0 Yes APPLY Univer s 0.5 % 5-20 THROUGHLY ity of lotion 00:00: TO HAIR [place] 00 AND SCALP Medical 1 FULL Branch TUBE AND RINCE OUT WITH WATER AFTER 10 MINUTES FOR 1 DOSE ivermectin 0 Yes APPLY Univer s 0.5 % 5-20 THROUGHLY ity of lotion 00:00: TO HAIR [place] 00 AND SCALP Medical 1 FULL Branch TUBE AND RINCE OUT WITH WATER AFTER 10 MINUTES FOR 1 DOSE ivermectin 0 Yes APPLY Univer s 0.5 % 5-20 THROUGHLY ity of lotion 00:00: TO HAIR [place] 00 AND SCALP Medical 1 FULL Branch TUBE AND RINCE OUT WITH WATER AFTER 10 MINUTES FOR 1 DOSE ivermectin 0 Yes APPLY Univer s 0.5 % 5-20 THROUGHLY ity of lotion 00:00: TO HAIR [place] 00 AND SCALP Medical 1 FULL Branch TUBE AND RINCE OUT WITH WATER AFTER 10 MINUTES FOR 1 DOSE ivermectin 0 Yes APPLY Univer s 0.5 % 5-20 THROUGHLY ity of lotion 00:00: TO HAIR [place] 00 AND SCALP Medical 1 FULL Branch TUBE AND RINCE OUT WITH WATER AFTER 10 MINUTES FOR 1 DOSE ivermectin 2022-0 Yes APPLY Univer s 0.5 % 5-20 THROUGHLY ity of lotion 00:00: TO HAIR [place] 00 AND SCALP Medical 1 FULL Branch TUBE AND RINCE OUT WITH WATER AFTER 10 MINUTES FOR 1 DOSE ivermectin 2021-0 Yes APPLY Univer s 0.5 % 5-20 THROUGHLY ity of lotion 00:00: TO HAIR [place] 00 AND SCALP Medical 1 FULL Branch TUBE AND RINCE OUT WITH WATER AFTER 10 MINUTES FOR 1 DOSE ivermectin 0 Yes APPLY Univer s 0.5 % 5-20 THROUGHLY ity of lotion 00:00: TO HAIR [place] 00 AND SCALP Medical 1 FULL Branch TUBE AND RINCE OUT WITH WATER AFTER 10 MINUTES FOR 1 DOSE ivermectin 0 Yes APPLY Univer s 0.5 % 5-20 THROUGHLY ity of lotion 00:00: TO HAIR [place] 00 AND SCALP Medical 1 FULL Branch TUBE AND RINCE OUT WITH WATER AFTER 10 MINUTES FOR 1 DOSE ivermectin 0 Yes APPLY Univer s 0.5 % 5-20 THROUGHLY ity of lotion 00:00: TO HAIR [place] 00 AND SCALP Medical 1 FULL Branch TUBE AND RINCE OUT WITH WATER AFTER 10 MINUTES FOR 1 DOSE ivermectin 0 Yes APPLY Univer s 0.5 % 5-20 THROUGHLY ity of lotion 00:00: TO HAIR [place] 00 AND SCALP Medical 1 FULL Branch TUBE AND RINCE OUT WITH WATER AFTER 10 MINUTES FOR 1 DOSE ivermectin 2021-0 Yes APPLY Univer s 0.5 % 5-20 THROUGHLY ity of lotion 00:00: TO HAIR [place] 00 AND SCALP Medical 1 FULL Branch TUBE AND RINCE OUT WITH WATER AFTER 10 MINUTES FOR 1 DOSE ivermectin 2021-0 Yes APPLY Univer s 0.5 % 5-20 THROUGHLY ity of lotion 00:00: TO HAIR [place] 00 AND SCALP Medical 1 FULL Branch TUBE AND RINCE OUT WITH WATER AFTER 10 MINUTES FOR 1 DOSE ivermectin 2021-0 Yes APPLY Univer s 0.5 % 5-20 THROUGHLY ity of lotion 00:00: TO HAIR [place] 00 AND SCALP Medical 1 FULL Branch TUBE AND RINCE OUT WITH WATER AFTER 10 MINUTES FOR 1 DOSE ivermectin 2021-0 Yes APPLY Univer s 0.5 % 5-20 THROUGHLY ity of lotion 00:00: TO HAIR [place] 00 AND SCALP Medical 1 FULL Branch TUBE AND RINCE OUT WITH WATER AFTER 10 MINUTES FOR 1 DOSE ivermectin Yes APPLY Univer s 0.5 % 5-20 THROUGHLY ity of lotion 00:00: TO [facility] 00 AND SCALP Medical 1 FULL Branch TUBE AND RINCE OUT WITH WATER AFTER 10 MINUTES FOR 1 DOSE ivermectin Yes APPLY Univer s 0.5 % 5-20 THROUGHLY ity of lotion 00:00: TO [facility] 00 AND SCALP Medical 1 FULL Branch TUBE AND RINCE OUT WITH WATER AFTER 10 MINUTES FOR 1 DOSE ivermectin Yes APPLY Univer s 0.5 % 5-20 THROUGHLY ity of lotion 00:00: TO [facility] 00 AND SCALP Medical 1 FULL Branch TUBE AND RINCE OUT WITH WATER AFTER 10 MINUTES FOR 1 DOSE ivermectin 2022- No APPLY Unive rs 0.5 % 5-20 - THROUGHLY ity of lotion 00:00: 00:00 TO [facility] 00 :00 AND SCALP Medical 1 FULL Branch TUBE AND RINCE OUT WITH WATER AFTER 10 MINUTES FOR 1 DOSE ivermectin 2022- No APPLY Unive rs 0.5 % 5-20 - THROUGHLY ity of lotion 00:00: 00:00 TO [facility] 00 :00 AND SCALP Medical 1 FULL Branch TUBE AND RINCE OUT WITH WATER AFTER 10 MINUTES FOR 1 DOSE ivermectin 2022- No APPLY Unive rs 0.5 % 5-20 -09 THROUGHLY ity of lotion 00:00: 00:00 TO [facility] 00 :00 AND SCALP Medical 1 FULL Branch TUBE AND RINCE OUT WITH WATER AFTER 10 MINUTES FOR 1 DOSE ivermectin 2022- No APPLY Unive rs 0.5 % 5-20 - THROUGHLY ity of lotion 00:00: 00:00 TO [facility] 00 :00 AND SCALP Medical 1 FULL Branch TUBE AND RINCE OUT WITH WATER AFTER 10 MINUTES FOR 1 DOSE ivermectin 2022- No APPLY Unive rs 0.5 % 5-20 -09 THROUGHLY ity of lotion 00:00: 00:00 TO [facility] 00 :00 AND SCALP Medical 1 FULL Branch TUBE AND RINCE OUT WITH WATER AFTER 10 MINUTES FOR 1 DOSE ivermectin 0 3- No APPLY Unive rs 0.5 % 5-20 04-15 THROUGHLY ity of lotion 00:00: 00:00 TO HAIR [place] 00 :00 AND SCALP Medical 1 FULL Branch TUBE AND RINCE OUT WITH WATER AFTER 10 MINUTES FOR 1 DOSE calcium 2022-0 Yes 500mg Take 500 Unive rs carbonate/v 5-19 mg by ity of itamin D3 15:42: mouth [place] (CALCIUM 20 daily. Medical 500 + D Branch ORAL) calcium 2022-0 Yes 500mg Take 500 Unive rs carbonate/v 5-19 mg by ity of itamin D3 15:42: mouth [place] (CALCIUM 20 daily. Medical 500 + D Branch ORAL) calcium 2022-0 Yes 500mg Take 500 Unive rs carbonate/v 5-19 mg by ity of itamin D3 15:42: mouth [place] (CALCIUM 20 daily. Medical 500 + D Branch ORAL) calcium 2022-0 Yes 500mg Take 500 Unive rs carbonate/v 5-19 mg by ity of itamin D3 15:42: mouth [place] (CALCIUM 20 daily. Medical 500 + D Branch ORAL) calcium 2022-0 Yes 500mg Take 500 Unive rs carbonate/v 5-19 mg by ity of itamin D3 15:42: mouth [place] (CALCIUM 20 daily. Medical 500 + D Branch ORAL) calcium 2022-0 Yes 500mg Take 500 Unive rs carbonate/v 5-19 mg by ity of itamin D3 15:42: mouth [place] (CALCIUM 20 daily. Medical 500 + D Branch ORAL) calcium 2022-0 Yes 500mg Take 500 Unive rs carbonate/v 5-19 mg by ity of itamin D3 15:42: mouth [place] (CALCIUM 20 daily. Medical 500 + D Branch ORAL) calcium 2022-0 Yes 500mg Take 500 Unive rs carbonate/v 5-19 mg by ity of itamin D3 15:42: mouth [place] (CALCIUM 20 daily. Medical 500 + D Branch ORAL) calcium 2022-0 Yes 500mg Take 500 Unive rs carbonate/v 5-19 mg by ity of itamin D3 15:42: mouth [place] (CALCIUM 20 daily. Medical 500 + D Branch ORAL) calcium 2022-0 Yes 500mg Take 500 Unive rs carbonate/v 5-19 mg by ity of itamin D3 15:42: mouth [place] (CALCIUM 20 daily. Medical 500 + D Branch ORAL) calcium 2022-0 Yes 500mg Take 500 Unive rs carbonate/v 5-19 mg by ity of itamin D3 15:42: mouth [place] (CALCIUM 20 daily. Medical 500 + D Branch ORAL) calcium 2022-0 Yes 500mg Take 500 Unive rs carbonate/v 5-19 mg by ity of itamin D3 15:42: mouth [place] (CALCIUM 20 daily. Medical 500 + D Branch ORAL) calcium 2022-0 Yes 500mg Take 500 Unive rs carbonate/v 5-19 mg by ity of itamin D3 15:42: mouth [place] (CALCIUM 20 daily. Medical 500 + D Branch ORAL) calcium 2022-0 Yes 500mg Take 500 Unive rs carbonate/v 5-19 mg by ity of itamin D3 15:42: mouth [place] (CALCIUM 20 daily. Medical 500 + D Branch ORAL) calcium 2022-0 Yes 500mg Take 500 Unive rs carbonate/v 5-19 mg by ity of itamin D3 15:42: mouth [place] (CALCIUM 20 daily. Medical 500 + D Branch ORAL) calcium 2022-0 Yes 500mg Take 500 Unive rs carbonate/v 5-19 mg by ity of itamin D3 15:42: mouth [place] (CALCIUM 20 daily. Medical 500 + D Branch ORAL) calcium 2022-0 Yes 500mg Take 500 Unive rs carbonate/v 5-19 mg by ity of itamin D3 15:42: mouth [place] (CALCIUM 20 daily. Medical 500 + D Branch ORAL) calcium 2022-0 Yes 500mg Take 500 Unive rs carbonate/v 5-19 mg by ity of itamin D3 15:42: mouth [place] (CALCIUM 20 daily. Medical 500 + D Branch ORAL) calcium 2022-0 Yes 500mg Take 500 Unive rs carbonate/v 5-19 mg by ity of itamin D3 15:42: mouth [place] (CALCIUM 20 daily. Medical 500 + D Branch ORAL) calcium 2022-0 Yes 500mg Take 500 Unive rs carbonate/v 5-19 mg by ity of itamin D3 15:42: mouth [place] (CALCIUM 20 daily. Medical 500 + D Branch ORAL) calcium 2022-0 Yes 500mg Take 500 Unive rs carbonate/v 5-19 mg by ity of itamin D3 15:42: mouth [place] (CALCIUM 20 daily. Medical 500 + D Branch ORAL) calcium 2021-0 Yes 500mg Take 500 Unive rs carbonate/v 5-19 mg by ity of itamin D3 15:42: mouth [place] (CALCIUM 20 daily. Medical 500 + D Branch ORAL) calcium 2021-0 Yes 500mg Take 500 Unive rs carbonate/v 5-19 mg by ity of itamin D3 15:42: mouth [place] (CALCIUM 20 daily. Medical 500 + D Branch ORAL) calcium 2-0 Yes 500mg Take 500 Unive rs carbonate/v 5-19 mg by ity of itamin D3 15:42: mouth [place] (CALCIUM 20 daily. Medical 500 + D Branch ORAL) calcium 2021-0 Yes 500mg Take 500 Unive rs carbonate/v 5-19 mg by ity of itamin D3 15:42: mouth [place] (CALCIUM 20 daily. Medical 500 + D Branch ORAL) calcium 2021-0 Yes 500mg Take 500 Unive rs carbonate/v 5-19 mg by ity of itamin D3 15:42: mouth [place] (CALCIUM 20 daily. Medical 500 + D Branch ORAL) ondansetron 2021-0 202- No 4mg Take 4 mg [facility] (ZOFRAN) 4 5-19 05-19 by mouth ity of mg tablet 13:41: 00:00 every 8 [place] 18 :00 (eight) Medical hours as Branch needed. diclofenac 2021-0 Yes [id number] 75mg Take 1 [facility] 75 mg EC 5-14 tablet by ity of tablet 00:00: mouth 2 (two) Medical times Branch daily with meals. metoclopram 2021-0 Yes [id number] 10mg Take 1 [facility] damian HCl 10 5-14 tablet by ity of mg tablet 00:00: mouth [place] 00 every 6 Medical (six) Branch hours. diclofenac 2021-0 Yes [id number] 75mg Take 1 [facility] 75 mg EC 5-14 tablet by ity of tablet 00:00: mouth 2 00 (two) Medical times Branch daily with meals. metoclopram 2-0 Yes [id number] 10mg Take 1 [facility] damian HCl 10 5-14 tablet by ity of mg tablet 00:00: mouth [place] 00 every 6 Medical (six) Branch hours. diclofenac 2-0 Yes [id number] 75mg Take 1 [facility] 75 mg EC 5-14 tablet by ity of tablet 00:00: mouth (two) Medical times Branch daily with meals. metoclopram 2022-0 Yes [id number] 10mg Take 1 [facility] damian HCl 10 5-14 tablet by ity of mg tablet 00:00: mouth [place] every 6 Medical (six) Branch hours. diclofenac 2022-0 Yes [id number] 75mg Take 1 [facility] 75 mg EC 5-14 tablet by ity of tablet 00:00: mouth (two) Medical times Branch daily with meals. metoclopram 2022-0 Yes [id number] 10mg Take 1 [facility] damian HCl 10 5-14 tablet by ity of mg tablet 00:00: mouth 00 every 6 Medical (six) Branch hours. diclofenac 2022-0 Yes [id number] 75mg Take 1 [facility] 75 mg EC 5-14 tablet by ity of tablet 00:00: [facility] (two) Medical times Branch daily with meals. metoclopram 2022-0 Yes [id number] 10mg Take 1 [facility] damian HCl 10 5-14 tablet by ity of mg tablet 00:00: mouth [place] every 6 Medical (six) Branch hours. diclofenac 2022-0 Yes [id number] 75mg Take 1 [facility] 75 mg EC 5-14 tablet by ity of tablet 00:00: mouth (two) Medical times Branch daily with meals. metoclopram 2022-0 Yes [id number] 10mg Take 1 [facility] damian HCl 10 5-14 tablet by ity of mg tablet 00:00: mouth 00 every 6 Medical (six) Branch hours. diclofenac 2022-0 Yes [id number] 75mg Take 1 [facility] 75 mg EC 5-14 tablet by ity of tablet 00:00: mouth (two) Medical times Branch daily with meals. metoclopram 2022-0 Yes [id number] 10mg Take 1 [facility] damian HCl 10 5-14 tablet by ity of mg tablet 00:00: mouth [place] 00 every 6 Medical (six) Branch hours. diclofenac 2022-0 Yes [id number] 75mg Take 1 [facility] 75 mg EC 5-14 tablet by ity of tablet 00:00: mouth (two) Medical times Branch daily with meals. metoclopram 2022-0 Yes [id number] 10mg Take 1 [facility] damian HCl 10 5-14 tablet by ity of mg tablet 00:00: mouth 00 every 6 Medical (six) Branch hours. diclofenac 2021-0 2021- No [id number] 75mg Take 1 [facility] 75 mg EC 5-14 11-18 tablet by ity o f tablet 00:00: 00:00 mouth 2 [place] 00 :00 (two) Medical times Branch daily with meals. metoclopram 2021-0 2021- No [id number] 10mg Take 1 [facility] damian HCl 10 5-14 11-18 tablet by ity of mg tablet 00:00: 00:00 mouth [place] 00 :00 every 6 Medical (six) Branch hours. diclofenac 2021-0 2021- No [id number] 75mg Take 1 [facility] 75 mg EC 5-14 11-18 tablet by ity o f tablet 00:00: 00:00 mouth 2 [place] 00 :00 (two) Medical times Branch daily with meals. metoclopram 2021-2021- No [id number] 10mg Take 1 [facility] damian HCl 10 5-14 11-18 tablet by ity of mg tablet 00:00: 00:00 mouth [place] 00 :00 every 6 Medical (six) Branch hours. diclofenac 2021-2021- No [id number] 75mg Take 1 [facility] 75 mg EC 5-14 11-18 tablet by ity o f tablet 00:00: 00:00 mouth 2 [place] 00 :00 (two) Medical times Branch daily with meals. metoclopram 2021-2021- No [id number] 10mg Take 1 [facility] damian HCl 10 5-14 11-18 tablet by ity of mg tablet 00:00: 00:00 mouth [place] 00 :00 every 6 Medical (six) Branch hours. diclofenac 2021-0 2021- No [id number] 75mg Take 1 [facility] 75 mg EC 5-14 11-18 tablet by ity o f tablet 00:00: 00:00 mouth 2 [place] 00 :00 (two) Medical times Branch daily with meals. metoclopram 2021-0 2- No [id number] 10mg Take 1 [facility] damian HCl 10 5-14 11-18 tablet by ity of mg tablet 00:00: 00:00 mouth [place] 00 :00 every 6 Medical (six) Branch hours. diclofenac 2021-0 2021- No [id number] 75mg Take 1 [facility] 75 mg EC 5-14 11-18 tablet by ity o f tablet 00:00: 00:00 mouth 2 [place] 00 :00 (two) Medical times Branch daily with meals. metoclopram 2021- No [id number] 10mg Take 1 [facility] damian HCl 10 5-14 11-18 tablet by ity of mg tablet 00:00: 00:00 mouth [place] 00 :00 every 6 Medical (six) Branch hours. diclofenac 2021- No [id number] 75mg Take 1 [facility] 75 mg EC 5-14 11-18 tablet by ity o f tablet 00:00: 00:00 mouth 2 [place] 00 :00 (two) Medical times Branch daily with meals. metoclopram 2021- No [id number] 10mg Take 1 [facility] damian HCl 10 5-14 11-18 tablet by ity of mg tablet 00:00: 00:00 mouth [place] 00 :00 every 6 Medical (six) Branch hours. diclofenac No [id number] 75mg Take 1 [facility] 75 mg EC 5-14 -18 tablet by ity o f tablet 00:00: 00:00 mouth 2 [place] 00 :00 (two) Medical times Branch daily with meals. metoclopram 2021- No [id number] 10mg Take 1 [facility] damian HCl 10 5-14 -18 tablet by ity of mg tablet 00:00: 00:00 mouth [place] 00 :00 every 6 Medical (six) Branch hours. Diclofenac 2021- No [id number] Apply to [facility] Sodium 5-14 -06 [id number] area(s) 4 ity o f (VOLTAREN) 00:00: 00:00 (four) [place] 1 % gel 00 :00 times Medical daily. Branch Apply 4 g qid traZODone 2021- No [id number] 50mg Take 1 [facility] 50 mg 5-14 -09 tablet by ity of tablet 00:00: 00:00 mouth at [place] 00 :00 bedtime. Medical Branch HYDROcodone 2021- No [id number] 1{tbl} Take 1 U nivers -acetaminop 5-14 05-22 tablet by it y of hen 5-325 00:00: 04:59 mouth [place] mg tablet 00 :00 every 6 Medical (six) Branch hours as needed for Pain (scale 7-10) for up to 7 days. Indication s: acute pain butalbital- 2021- No [id number] 1{tbl} Take 1 [facility] acetaminoph 5-14 05-19 tablet by it y of en-caff 00:00: 00:00 mouth [place] 50-325-40 00 :00 every 6 Medical mg tablet (six) Branch hours as needed (headache) . cyclobenzap 2021- No [id number] 10mg Take 1 [facility] rine 10 mg 5-14 05-19 tablet by ity of tablet 00:00: 00:00 mouth 2 [place] 00 :00 (two) Medical times Branch daily as needed for Muscle Spasms. May cause drowsiness famotidine 2021- No [id number] 20mg Take 1 [facility] 20 mg 5-14 05-19 tablet by ity of tablet 00:00: 00:00 mouth 2 [place] 00 :00 (two) Medical times Branch daily. docusate 2021- No [id number] 100mg Take 1 [facility] 100 mg 5-14 05-19 capsule by ity of capsule 00:00: 00:00 mouth 2 [place] 00 :00 (two) Medical times Branch daily. dexAMETHaso 2021- No [id number] 2mg Take 2 Univers ne 1 mg 5-14 05-19 tablets by ity o f tablet 00:00: 00:00 mouth 2 [place] 00 :00 (two) Medical times Branch daily with meals for 14 days. Arm Brace 2020-04 Yes [id number] Use as [facility] (WRIST 2-08 [id number] directed ity of [place] 00:00: [place] [facility] 2020-04 Yes [id number] Use as Univers (WRIST 2-08 [id number] directed ity of [place] 00:00: [place] [facility] 2020-04 Yes [id number] Use as [facility] (WRIST 2-08 [id number] directed ity of [place] 00:00: [place] [facility]ace 2020-04 Yes [id number] Use as [facility] (WRIST 2-08 [id number] directed ity of [place] 00:00: [place] [facility] Arm [facility]ace 2020-04 Yes [id number] Use as [facility] (WRIST 2-08 [id number] directed ity of [facility] 00:00: [place] [facility] 00 [facility] 2020-04 Yes [id number] Use as Univers (WRIST 2-08 [id number] directed [facility]y of [facility] 00:00: [place] [facility] 2020-04 Yes [id number] Use as [facility] (WRIST 2-08 [id number] directed ity of [facility] 00:00: [place] [facility] 00 [facility]ace 2020-04 Yes [id number] Use as [facility] (WRIST 2-08 [id number] directed [facility]y of [facility] 00:00: [place] [facility] 00 [facility] Brace 2020-04 Yes [id number] Use as [facility] (WRIST 2-08 [id number] directed ity of [facility] 00:00: [place] [facility] 00 [facility]ace 2020-04 Yes [id number] Use as [facility] (WRIST 2-08 [id number] directed [facility]y of [facility] 00:00: [place] [facility] 00 [facility]ace 2020-04 Yes [id number] Use as [facility] (WRIST 2-08 [id number] directed ity of [facility] 00:00: [place] [facility] 00 [facility]ace 2020-04 Yes [id number] Use as [facility] (WRIST 2-08 [id number] directed [facility]y of [facility] 00:00: [place] [facility] 00 [facility]ace 2020-04 Yes [id number] Use as [facility] (WRIST 2-08 [id number] directed ity of [place] 00:00: [place] [facility] 00 [facility]ace 2020-04 Yes [id number] Use as [facility] (WRIST 2-08 [id number] directed ity of [place] 00:00: [place] [facility] 00 [facility] Brace 2020-04 Yes [id number] Use as [facility] (WRIST 2-08 [id number] directed [facility]y of [facility] 00:00: [place] [facility] 00 [facility] Brace 2020-04 Yes [id number] Use as [facility] (WRIST 2-08 [id number] directed ity of [place] 00:00: [place] [facility] 00 [facility]ace 2020-04 Yes [id number] Use as [facility] (WRIST 2-08 [id number] directed ity of [facility] 00:00: [place] [facility] 00 [facility]ace 2020-04 Yes [id number] Use as [facility] (WRIST 2-08 [id number] directed ity of [place] 00:00: [place] [facility] 2020-04 Yes [id number] Use as [facility] (WRIST 2-08 [id number] directed [facility]y of [place] 00:00: [place] [facility] 2020-04 Yes [id number] Use as [facility] (WRIST 2-08 [id number] directed [facility]y of [facility] 00:00: [place] [facility] 2020-04 Yes [id number] Use as [facility] (WRIST 2-08 [id number] directed [facility]y of [facility] 00:00: [place] [facility] 2020-04 Yes [id number] Use as [facility] (WRIST 2-08 [id number] directed [facility]y of [facility] 00:00: [place] [facility] 2020-04 Yes [id number] Use as [facility] (WRIST 2-08 [id number] directed [facility]y of [place] 00:00: [place] [facility] 2020-04 Yes [id number] Use as [facility] (WRIST 2-08 [id number] directed [facility]y of [place] 00:00: [place] [facility] 2020-04 Yes [id number] Use as [facility] (WRIST 2-08 [id number] directed ity of [place] 00:00: [place] [facility] 2020-04 Yes [id number] Use as [facility] (WRIST 2-08 [id number] directed ity of [place] 00:00: [place] [facility] 00 [facility]ace 2020-04 Yes [id number] Use as [facility] (WRIST 2-08 [id number] directed ity of [place] 00:00: [place] [facility] 2020-04 Yes [id number] Use as [facility] (WRIST 2-08 [id number] directed ity of [place] 00:00: [place] [facility] 2020-04 Yes [id number] Use as [facility] (WRIST 2-08 [id number] directed ity of [place] 00:00: [place] [facility] 00 [facility] 2020-04 Yes [id number] Use as [facility] (WRIST 2-08 [id number] directed ity of [place] 00:00: [place] [facility] 00 [facility]ace 2020-04 Yes [id number] Use as [facility] (WRIST 2-08 [id number] directed ity of [place] 00:00: [place] [facility] 2020-04 Yes [id number] Use as [facility] (WRIST 2-08 [id number] directed ity of [place] 00:00: [place] [facility]) 00 [facility] Brace 2020-04 Yes [id number] Use as [facility] (WRIST 2-08 [id number] directed ity of [place] 00:00: [place] [facility] 00 [facility]ace 2020-04 Yes [id number] Use as [facility] (WRIST 2-08 [id number] directed ity of [place] 00:00: [place] [facility]) 00 [facility] Brace 2020-04 Yes [id number] Use as [facility] (WRIST 2-08 [id number] directed ity of [place] 00:00: [place] [facility] 00 [facility]ace 2020-04 Yes [id number] Use as [facility] (WRIST 2-08 [id number] directed ity of [place] 00:00: [place] [facility]) 00 [facility]ace 2020-04 Yes [id number] Use as [facility] (WRIST 2-08 [id number] directed ity of [place] 00:00: [place] [facility]) 00 [facility]ace 2020-04 Yes [id number] Use as [facility] (WRIST 2-08 [id number] directed ity of [place] 00:00: [place] [facility]) 00 [facility]ace 2020-04 Yes [id number] Use as [facility] (WRIST 2-08 [id number] directed ity of [place] 00:00: [place] [facility]) 00 [facility]ace 2020-04 Yes [id number] Use as [facility] (WRIST 2-08 [id number] directed ity of [place] 00:00: [place] [facility] 00 [facility]ace 2020-04 Yes [id number] Use as [facility] (WRIST 2-08 [id number] directed ity of [place] 00:00: [place] [facility]) 00 [facility]ace 2020-04 Yes [id number] Use as [facility] (WRIST 2-08 [id number] directed ity of [place] 00:00: [place] [facility]) 00 [facility]ace 2020-04 Yes [id number] Use as [facility] (WRIST 2-08 [id number] directed ity of [place] 00:00: [place] [facility] 2020-04 Yes [id number] Use as [facility] (WRIST 2-08 [id number] directed ity of [place] 00:00: [place] [facility] 2020-04 Yes [id number] Use as [facility] (WRIST 2-08 [id number] directed [facility]y of [place] 00:00: [place] [facility] 2020-04 Yes [id number] Use as [facility] (WRIST 2-08 [id number] directed [facility]y of [place] 00:00: [place] [facility] 2020-04 Yes [id number] Use as [facility] (WRIST 2-08 [id number] directed ity of [place] 00:00: [place] [facility] 2020-04 Yes [id number] Use as [facility] (WRIST 2-08 [id number] directed [facility]y of [place] 00:00: [place] [facility] 2020-04 Yes [id number] Use as [facility] (WRIST 2-08 [id number] directed [facility]y of [place] 00:00: [place] [facility] 2020-04 Yes [id number] Use as [facility] (WRIST 2-08 [id number] directed [facility]y of [place] 00:00: [place] [facility] 2020-04 Yes [id number] Use as [facility] (WRIST 2-08 [id number] directed ity of [place] 00:00: [place] [facility]) 00 [facility] 2020-04 Yes [id number] Use as [facility] (WRIST 2-08 [id number] directed ity of [place] 00:00: [place] [facility] 2020-04 Yes [id number] Use as [facility] (WRIST 2-08 [id number] directed ity of [place] 00:00: [place] [facility]) 00 [facility] 2020-04 Yes [id number] Use as [facility] (WRIST 2-08 [id number] directed ity of [place] 00:00: [place] [facility]) 00 [facility]ace 2020-04 Yes [id number] Use as [facility] (WRIST 2-08 [id number] directed ity of [place] 00:00: [place] [facility]) 00 [facility]ace 2020-04 Yes [id number] Use as [facility] (WRIST 2-08 [id number] directed ity of [place] 00:00: [place] [facility]) [facility] 2020-04 Yes [id number] Use as [facility] (WRIST 2-08 [id number] directed ity of [place] 00:00: [place] [facility]) 00 [facility] 2020-04 Yes [id number] Use as [facility] (WRIST 2-08 [id number] directed ity of [facility] 00:00: [place] [facility]) 00 [facility]ace 2020-04 Yes [id number] Use as [facility] (WRIST 2-08 [id number] directed ity of [place] 00:00: [place] [facility]) 00 [facility]ace 2020-04 Yes [id number] Use as Univers (WRIST 2-08 [id number] directed ity of [place] 00:00: [place] [facility]) 00 [facility]ace 2020-04 Yes [id number] Use as [facility] (WRIST 2-08 [id number] directed ity of [facility] 00:00: [place] [facility]) 00 [facility]ace 2020-04 Yes [id number] Use as [facility] (WRIST 2-08 [id number] directed ity of [place] 00:00: [place] [facility]) 00 [facility]ace 2020-04 Yes [id number] Use as [facility] (WRIST 2-08 [id number] directed ity of [place] 00:00: [place] [facility]) 00 [facility]ace 2020-04 Yes [id number] Use as [facility] (WRIST 2-08 [id number] directed ity of [place] 00:00: [place] [facility]) 00 [facility]ace 2020-04 Yes [id number] Use as [facility] (WRIST 2-08 [id number] directed ity of [facility] 00:00: [place] [facility]) 00 [facility]ace 2020-04 Yes [id number] Use as [facility] (WRIST 2-08 [id number] directed ity of [place] 00:00: [place] [facility]) 00 [facility]ace 2020-04 Yes [id number] Use as [facility] (WRIST 2-08 [id number] directed ity of [place] 00:00: [place] [facility]) 00 [facility] 2020-04 Yes [id number] Use as [facility] (WRIST 2-08 [id number] directed ity of [place] 00:00: [place] [facility] 2020-04 Yes [id number] Use as [facility] (WRIST 2-08 [id number] directed ity of [facility] 00:00: [place] [facility] 2020-04 Yes [id number] Use as [facility] (WRIST 2-08 [id number] directed ity of [facility] 00:00: [place] [facility] 2020-04 Yes [id number] Use as [facility] (WRIST 2-08 [id number] directed ity of [place] 00:00: [place] [facility] 2020-04 Yes [id number] Use as [facility] (WRIST 2-08 [id number] directed ity of [facility] 00:00: [place] [facility] 2020-04 Yes [id number] Use as [facility] (WRIST 2-08 [id number] directed ity of [facility] 00:00: [place] [facility] 2020-04 Yes [id number] Use as [facility] (WRIST 2-08 [id number] directed ity of [place] 00:00: [place] [facility]) 00 [facility] 2020-04 Yes [id number] Use as [facility] (WRIST 2-08 [id number] directed ity of [place] 00:00: [place] [facility]) 00 [facility] 2020-04 Yes [id number] Use as [facility] (WRIST 2-08 [id number] directed ity of [facility] 00:00: [place] [facility]) 00 [facility] 2020-04 Yes [id number] Use as Univers (WRIST 2-08 [id number] directed ity of [facility] 00:00: [place] [facility]) [facility] 2020-04 Yes [id number] Use as [facility] (WRIST 2-08 [id number] directed ity of [facility] 00:00: [place] [facility]) [facility] 2020-04 Yes [id number] Use as [facility] (WRIST 2-08 [id number] directed ity of [place] 00:00: [place] [facility]) 00 [facility] 2020-04 Yes [id number] Use as Univers (WRIST 2-08 [id number] directed ity of [facility] 00:00: [place] [facility]) 00 [facility] 2020-04 Yes [id number] Use as [facility] (WRIST 2-08 [id number] directed ity of [facility] 00:00: [place] [facility]) 00 [facility] 2020-04 Yes [id number] Use as [facility] (WRIST 2-08 [id number] directed ity of [place] 00:00: [place] [facility]) 00 [facility]ace 2020-04 Yes [id number] Use as Univers (WRIST 2-08 [id number] directed ity of [place] 00:00: [place] [facility]) 00 [facility]ace 2020-04 Yes [id number] Use as [facility] (WRIST 2-08 [id number] directed ity of [place] 00:00: [place] [facility]) 00 [facility]ace 2020-04 Yes [id number] Use as Univers (WRIST 2-08 [id number] directed ity of [place] 00:00: [place] [facility]) 00 [facility] 2020-04 Yes [id number] Use as [facility] (WRIST 2-08 [id number] directed ity of [place] 00:00: [place] [facility]) 00 [facility]ace 2020-04 Yes [id number] Use as [facility] (WRIST 2-08 [id number] directed ity of [place] 00:00: [place] [facility]) 00 [facility] Brace 2020-04 Yes [id number] Use as [facility] (WRIST 2-08 [id number] directed ity of [place] 00:00: [place] [facility]) 00 [facility]ace 2020-04 Yes [id number] Use as [facility] (WRIST 2-08 [id number] directed ity of [place] 00:00: [place] [facility]) 00 [facility]ace 2020-04 Yes [id number] Use as [facility] (WRIST 2-08 [id number] directed ity of [place] 00:00: [place] [facility]) 00 [facility]ace 2020-04 Yes [id number] Use as [facility] (WRIST 2-08 [id number] directed ity of [place] 00:00: [place] [facility]) 00 [facility]ace 2020-04 Yes [id number] Use as [facility] (WRIST 2-08 [id number] directed ity of [place] 00:00: [place] [facility]) 00 [facility]ace 2020-04 Yes [id number] Use as [facility] (WRIST 2-08 [id number] directed ity of [place] 00:00: [place] [facility]) 00 [facility]ace 2020-04 Yes [id number] Use as [facility] (WRIST 2-08 [id number] directed ity of [place] 00:00: [place] [facility]) 00 [facility]ace 2020-04 Yes [id number] Use as [facility] (WRIST 2-08 [id number] directed ity of [place] 00:00: [place] [facility]) 00 [facility]ace 2020-04 Yes [id number] Use as [facility] (WRIST 2-08 [id number] directed ity of [place] 00:00: [place] [facility]) 00 [facility] 2020-04 No [id number] Use as [facility] (WRIST 2-08 [id number] directed ity of [place] 00:00: 00:00 [place] [facility]) 00 :00 [facility] Immunizations Ordered Immunization Filled Date Status Comments Sour ce Name Immunization Name TDAP 2022-10-22 Completed [facility] 00:00:00 [facility] [place] [facility] TDAP 2022-10-22 Completed [facility] 00:00:00 [facility] TDAP 2022-10-22 Completed [facility] 00[facility]00:00 [facility] TDAP 2022-10-22 Completed [facility] of 00[facility]00:00 [facility] TDAP 2022-10-22 Completed [facility] of 00[facility]00:00 [facility] TDAP 2022-10-22 Completed [facility] of 00:00:00 [facility] TDAP 2022-10-22 Completed [facility] of 00:00:00 [facility] TDAP 2022-10-22 Completed [facility] of 00:00:00 [facility] TDAP 2022-10-22 Completed [facility] of 00:00:00 [facility] TDAP 2022-10-22 Completed [facility] of 00:00:00 [facility] TDAP 2022-10-22 Completed [facility] 00:00:00 [facility] Influenza Virus 2022-04-09 Completed [facility], 00:00:00 [place] [facility] Preserv and ABX Free Bran ch 6 MO-64 YRS Influenza Virus 2022-04-09 Completed [facility], 00:00:00 [place] [facility] Preserv and ABX Free Bran ch 6 MO-64 YRS Influenza Virus 2022-04-09 Completed [facility], 00:00:00 [place] [facility] Preserv and ABX Free Bran ch 6 MO-64 YRS Influenza Virus 2022-04-09 Completed [facility], 00:00:00 [place] [facility] Preserv and ABX Free Bran ch 6 MO-64 YRS Influenza Virus 2022-04-09 Completed [facility], 00:00:00 [place] [facility] Preserv and ABX Free Bran ch 6 MO-64 YRS Influenza Virus 2022-04-09 Completed [facility], 00:00:00 [place] [facility] Preserv and ABX Free Bran ch 6 MO-64 YRS Influenza Virus 2022-04-09 Completed [facility], 00:00:00 [place] [facility] Preserv and ABX Free Bran ch 6 MO-64 YRS Influenza Virus 2022-04-09 Completed [facility], 00:00:00 [place] [facility] Preserv and ABX Free Bran ch 6 MO-64 YRS Influenza Virus 2022-04-09 Completed [facility], 00:00:00 [place] [facility] Preserv and ABX Free Bran ch 6 MO-64 YRS Influenza Virus 2022-04-09 Completed [facility], 00:00:00 [place] [facility] Preserv and ABX Free Bran ch 6 MO-64 YRS Influenza Virus 2022-04-09 Completed [facility], 00:00:00 [place] [facility] Preserv and ABX Free Bran ch 6 MO-64 YRS Influenza Virus 2022-04-09 Completed [facility], 00:00:00 [place] [facility] Preserv and ABX Free Bran ch 6 MO-64 YRS Influenza Virus 2022-04-09 Completed [facility], 00:00:00 [place] [facility] Preserv and ABX Free Bran ch 6 MO-64 YRS Influenza Virus 2022-04-09 Completed [facility], 00:00:00 [place] [facility] Preserv and ABX Free Bran ch 6 MO-64 YRS Influenza Virus 2022-04-09 Completed [facility], 00:00:00 [place] [facility] Preserv and ABX Free Bran ch 6 MO-64 YRS Influenza Virus 2022-04-09 Completed [facility], 00:00:00 [place] [facility] Preserv and ABX Free Bran ch 6 MO-64 YRS Influenza Virus 2022-04-09 Completed [facility], 00:00:00 [place] [facility] Preserv and ABX Free Bran ch 6 MO-64 YRS Influenza Virus 2022-04-09 Completed [facility], 00:00:00 [place] [facility] Preserv and ABX Free Bran ch 6 MO-64 YRS Influenza Virus 2022-04-09 Completed [facility], 00:00:00 [place] [facility] Preserv and ABX Free Bran ch 6 MO-64 YRS Influenza Virus 2022-04-09 Completed [facility], 00:00:00 [place] [facility] Preserv and ABX Free Bran ch 6 MO-64 YRS Influenza Virus 2022-04-09 Completed [facility], 00:00:00 [place] [facility] Preserv and ABX Free Bran ch 6 MO-64 YRS Influenza Virus 2022-04-09 Completed [facility], 00:00:00 [place] [facility] Preserv and ABX Free Bran ch 6 MO-64 YRS Influenza Virus 2022-04-09 Completed [facility], 00:00:00 [place] [facility] Preserv and ABX Free Bran ch 6 MO-64 YRS Influenza Virus 2022-04-09 Completed [facility], 00:00:00 [place] [facility] Preserv and ABX Free Bran ch 6 MO-64 YRS Influenza Virus 2022-04-09 Completed [facility], 00:00:00 [place] [facility] Preserv and ABX Free Bran ch 6 MO-64 YRS Influenza Virus 2022-04-09 Completed [facility], 00:00:00 [place] [facility] Preserv and ABX Free Bran ch 6 MO-64 YRS Influenza Virus 2022-04-09 Completed [facility], 00:00:00 [place] [facility] Preserv and ABX Free Bran ch 6 MO-64 YRS Influenza Virus 2022-04-09 Completed [facility], 00:00:00 [place] [facility] Preserv and ABX Free Bran ch 6 MO-64 YRS Influenza Virus 2022-04-09 Completed [facility], 00:00:00 [place] [facility] Preserv and ABX Free Bran ch 6 MO-64 YRS Influenza Virus 2022-04-09 Completed [facility], 00:00:00 [place] [facility] Preserv and ABX Free Bran ch 6 MO-64 YRS Influenza Virus 2022-04-09 Completed [facility], 00:00:00 [place] [facility] Preserv and ABX Free Bran ch 6 MO-64 YRS Influenza Virus 2022-04-09 Completed [facility], 00:00:00 [place] [facility] Preserv and ABX Free Bran ch 6 MO-64 YRS Influenza Virus 2022-04-09 Completed [facility], 00:00:00 [place] [facility] Preserv and ABX Free Bran ch 6 MO-64 YRS Influenza Virus 2022-04-09 Completed [facility], 00:00:00 [place] [facility] Preserv and ABX Free Bran ch 6 MO-64 YRS Influenza Virus 2022-04-09 Completed [facility], 00:00:00 [place] [facility] Preserv and ABX Free Bran ch 6 MO-64 YRS Influenza Virus 2022-04-09 Completed [facility], 00:00:00 [place] [facility] Preserv and ABX Free Bran ch 6 MO-64 YRS Influenza Virus 2022-04-09 Completed [facility], 00:00:00 [place] [facility] Preserv and ABX Free Bran ch 6 MO-64 YRS Influenza Virus 2022-04-09 Completed [facility], 00:00:00 [place] [facility] Preserv and ABX Free Bran ch 6 MO-64 YRS Influenza Virus 2022-04-09 Completed [facility], 00:00:00 [place] [facility] Preserv and ABX Free Bran ch 6 MO-64 YRS Influenza Virus 2022-04-09 Completed [facility], 00:00:00 [place] [facility] Preserv and ABX Free Bran ch 6 MO-64 YRS Influenza Virus 2022-04-09 Completed [facility], 00:00:00 [place] [facility] Preserv and ABX Free Bran ch 6 MO-64 YRS Influenza Virus 2022-04-09 Completed [facility], 00:00:00 [place] [facility] Preserv and ABX Free Bran ch 6 MO-64 YRS Influenza Virus 2022-04-09 Completed [facility], 00:00:00 [place] [facility] Preserv and ABX Free Bran ch 6 MO-64 YRS Influenza Virus 2022-04-09 Completed [facility], 00:00:00 [place] [facility] Preserv and ABX Free Bran ch 6 MO-64 YRS Influenza Virus 2022-04-09 Completed [facility], 00:00:00 [place] [facility] Preserv and ABX Free Bran ch 6 MO-64 YRS Influenza Virus 2022-04-09 Completed [facility], 00:00:00 [place] [facility] Preserv and ABX Free Bran ch 6 MO-64 YRS Influenza Virus 2022-04-09 Completed [facility], 00:00:00 [place] [facility] Preserv and ABX Free Bran ch 6 MO-64 YRS Influenza Virus 2022-04-09 Completed [facility], 00:00:00 [place] [facility] Preserv and ABX Free Bran ch 6 MO-64 YRS Influenza Virus 2022-04-09 Completed [facility], 00:00:00 [place] [facility] Preserv and ABX Free Bran ch 6 MO-64 YRS Influenza Virus 2022-04-09 Completed [facility], 00:00:00 [place] [facility] Preserv and ABX Free Bran ch 6 MO-64 YRS Influenza Virus 2022-04-09 Completed [facility], 00:00:00 [place] [facility] Preserv and ABX Free Bran ch 6 MO-64 YRS Influenza Virus 2022-04-09 Completed [facility], 00:00:00 [place] [facility] Preserv and ABX Free Bran ch 6 MO-64 YRS Influenza Virus 2022-04-09 Completed [facility], 00:00:00 [place] [facility] Preserv and ABX Free Bran ch 6 MO-64 YRS Influenza Virus 2022-04-09 Completed [facility], 00:00:00 [place] [facility] Preserv and ABX Free Bran ch 6 MO-64 YRS Influenza Virus 2022-04-09 Completed [facility], 00:00:00 [place] [facility] Preserv and ABX Free Bran ch 6 MO-64 YRS Influenza Virus 2022-04-09 Completed [facility], 00:00:00 [place] [facility] Preserv and ABX Free Bran ch 6 MO-64 YRS Influenza Virus 2022-04-09 Completed [facility], 00:00:00 [place] [facility] Preserv and ABX Free Bran ch 6 MO-64 YRS Influenza Virus 2022-04-09 Completed [facility], 00:00:00 [place] [facility] Preserv and ABX Free Bran ch 6 MO-64 YRS Influenza Virus 2022-04-09 Completed [facility], 00:00:00 [place] [facility] Preserv and ABX Free Bran ch 6 MO-64 YRS Influenza Virus 2022-04-09 Completed [facility], 00:00:00 [place] [facility] Preserv and ABX Free Bran ch 6 MO-64 YRS Influenza Virus 2022-04-09 Completed [facility], 00:00:00 [place] [facility] Preserv and ABX Free Bran ch 6 MO-64 YRS Influenza Virus 2022-04-09 Completed [facility], 00:00:00 [place] [facility] Preserv and ABX Free Bran ch 6 MO-64 YRS Influenza Virus 2022-04-09 Completed [facility], 00:00:00 [place] [facility] Preserv and ABX Free Bran ch 6 MO-64 YRS Influenza Virus 2022-04-09 Completed [facility]00 [place] [facility] Preserv and ABX Free Bran ch 6 MO-64 YRS Influenza Virus 2022-04-09 Completed [facility], 00:00:00 [place] [facility] Preserv [facility] ABX Free Bran ch 6 MO-64 YRS Influenza Virus 2022-04-09 Completed [facility], 00:00:00 [place] [facility] Preserv and ABX Free Bran ch 6 MO-64 YRS Influenza Virus 2022-04-09 Completed [facility], 00:00:00 [place] [facility] Preserv and ABX Free Bran ch 6 MO-64 YRS Influenza Virus 2022-04-09 Completed [facility], 00:00:00 [place] [facility] Preserv and ABX Free Bran ch 6 MO-64 YRS Influenza Virus 2022-04-09 Completed [facility], 00:00:00 [place] [facility] Preserv and ABX Free Bran ch 6 MO-64 YRS Influenza Virus 2022-04-09 Completed [facility], 00:00:00 [place] [facility] Preserv and ABX Free Bran ch 6 MO-64 YRS Influenza Virus 2022-04-09 Completed [facility], 00:00:00 [place] [facility] Preserv and ABX Free Bran ch 6 MO-64 YRS Influenza Virus 2022-04-09 Completed [facility], 00:00:00 [place] [facility] Preserv and ABX Free Bran ch 6 MO-64 YRS Influenza Virus 2022-04-09 Completed [facility], 00:00:00 [place] [facility] Preserv and ABX Free Bran ch 6 MO-64 YRS Influenza Virus 2022-04-09 Completed [facility], 00:00:00 [place] [facility] Preserv and ABX Free Bran ch 6 MO-64 YRS Influenza Virus 2022-04-09 Completed [facility], 00:00:00 [place] [facility] Preserv and ABX Free Bran ch 6 MO-64 YRS Influenza Virus 2022-04-09 Completed [facility], 00:00:00 [place] [facility] Preserv and ABX Free Bran ch 6 MO-64 YRS Influenza Virus 2022-04-09 Completed [facility], 00:00:00 [place] [facility] Preserv and ABX Free Bran ch 6 MO-64 YRS Influenza Virus 2022-04-09 Completed [facility], 00:00:00 [place] [facility] Preserv and ABX Free Bran ch 6 MO-64 YRS Influenza Virus 2022-04-09 Completed [facility], 00:00:00 [facility] dical Preserv and ABX Free Bran ch 6 MO-64 YRS ([employer]) SARS-COV-2 COVID-19 2021-04-11 Completed [facility] 12+ YRS 00:00:00 [place] [facility] SARS-COV-2 COVID-19 2021-04-11 Completed [facility] 12+ YRS 00:00:00 [place] [facility] SARS-COV-2 COVID-19 2021-04-11 Completed [facility] 12+ YRS 00:00:00 [place] [facility] SARS-COV-2 COVID-19 2021-04-11 Completed [facility] 12+ YRS 00:00:00 [place] [facility] SARS-COV-2 COVID-19 2021-04-11 Completed [facility] 12+ YRS 00:00:00 [place] [facility] SARS-COV-2 COVID-19 2021-04-11 Completed [facility] 12+ YRS 00:00:00 [place] [facility] SARS-COV-2 COVID-19 2021-04-11 Completed [facility] 12+ YRS 00:00:00 [place] [facility] SARS-COV-2 COVID-19 2021-04-11 Completed [facility] 12+ YRS 00:00:00 [place] [facility] SARS-COV-2 COVID-19 2021-04-11 Completed [facility] 12+ YRS 00:00:00 [place] [facility] SARS-COV-2 COVID-19 2021-04-11 Completed [facility] 12+ YRS 00:00:00 [place] [facility] SARS-COV-2 COVID-19 2021-04-11 Completed [facility] 12+ YRS 00:00:00 [place] [facility] SARS-COV-2 COVID-19 2021-04-11 Completed [facility] 12+ YRS 00:00:00 [place] [facility] SARS-COV-2 COVID-19 2021-04-11 Completed [facility] 12+ YRS 00:00:00 [place] [facility] SARS-COV-2 COVID-19 2021-04-11 Completed [facility] 12+ YRS 00:00:00 [place] [facility] SARS-COV-2 COVID-19 2021-04-11 Completed [facility] 12+ YRS 00:00:00 [place] [facility] SARS-COV-2 COVID-19 2021-04-11 Completed [facility] 12+ YRS 00:00:00 [place] [facility] SARS-COV-2 COVID-19 2021-04-11 Completed [facility] 12+ YRS 00:00:00 [place] [facility] SARS-COV-2 COVID-19 2021-04-11 Completed [facility] 12+ YRS 00:00:00 [place] [facility] SARS-COV-2 COVID-19 2021-04-11 Completed [facility] 12+ YRS 00:00:00 [place] [facility] SARS-COV-2 COVID-19 2021-04-11 Completed [facility] 12+ YRS 00:00:00 [place] [facility] SARS-COV-2 COVID-19 2021-04-11 Completed [facility] 12+ YRS 00:00:00 [place] [facility] SARS-COV-2 COVID-19 2021-04-11 Completed [facility] 12+ YRS 00:00:00 [place] [facility] SARS-COV-2 COVID-19 2021-04-11 Completed [facility] 12+ YRS 00:00:00 [place] [facility] SARS-COV-2 COVID-19 2021-04-11 Completed [facility] 12+ YRS 00:00:00 [place] [facility] SARS-COV-2 COVID-19 2021-04-11 Completed [facility] 12+ YRS 00:00:00 [place] [facility] SARS-COV-2 COVID-19 2021-04-11 Completed [facility] 12+ YRS 00:00:00 [place] [facility] SARS-COV-2 COVID-19 2021-04-11 Completed [facility] 12+ YRS 00:00:00 [place] [facility] SARS-COV-2 COVID-19 2021-04-11 Completed [facility] 12+ YRS 00:00:00 [place] [facility] SARS-COV-2 COVID-19 2021-04-11 Completed [facility] 12+ YRS 00:00:00 [place] [facility] SARS-COV-2 COVID-19 2021-04-11 Completed [facility] 12+ YRS 00:00:00 [place] [facility] SARS-COV-2 COVID-19 2021-04-11 Completed [facility] 12+ YRS 00:00:00 [place] [facility] SARS-COV-2 COVID-19 2021-04-11 Completed [facility] 12+ YRS 00:00:00 [place] [facility] SARS-COV-2 COVID-19 2021-04-11 Completed [facility] 12+ YRS 00:00:00 [place] [facility] SARS-COV-2 COVID-19 2021-04-11 Completed [facility] 12+ YRS 00:00:00 [place] [facility] SARS-COV-2 COVID-19 2021-04-11 Completed [facility] 12+ YRS 00:00:00 [place] [facility] SARS-COV-2 COVID-19 2021-04-11 Completed [facility] 12+ YRS 00:00:00 [place] [facility] SARS-COV-2 COVID-19 2021-04-11 Completed [facility] 12+ YRS 00:00:00 [place] [facility] SARS-COV-2 COVID-19 2021-04-11 Completed [facility] 12+ YRS 00:00:00 [place] [facility] SARS-COV-2 COVID-19 2021-04-11 Completed [facility] 12+ YRS 00:00:00 [place] [facility] SARS-COV-2 COVID-19 2021-04-11 Completed [facility] 12+ YRS 00:00:00 [place] [facility] SARS-COV-2 COVID-19 2021-04-11 Completed [facility] 12+ YRS 00:00:00 [place] [facility] SARS-COV-2 COVID-19 2021-04-11 Completed [facility] 12+ YRS 00:00:00 [place] [facility] SARS-COV-2 COVID-19 2021-04-11 Completed [facility] 12+ YRS 00:00:00 [place] [facility] SARS-COV-2 COVID-19 2021-04-11 Completed [facility] 12+ YRS 00:00:00 [place] [facility] SARS-COV-2 COVID-19 2021-04-11 Completed [facility] 12+ YRS 00:00:00 [place] [facility] SARS-COV-2 COVID-19 2021-04-11 Completed [facility] 12+ YRS 00:00:00 [place] [facility] SARS-COV-2 COVID-19 2021-04-11 Completed [facility] 12+ YRS 00:00:00 [place] [facility] SARS-COV-2 COVID-19 2021-04-11 Completed [facility] 12+ YRS 00:00:00 [place] [facility] SARS-COV-2 COVID-19 2021-04-11 Completed [facility] 12+ YRS 00:00:00 [place] [facility] SARS-COV-2 COVID-19 2021-04-11 Completed [facility] 12+ YRS 00:00:00 [place] [facility] SARS-COV-2 COVID-19 2021-04-11 Completed [facility] 12+ YRS 00:00:00 [place] [facility] SARS-COV-2 COVID-19 2021-04-11 Completed [facility] 12+ YRS 00:00:00 [place] [facility] SARS-COV-2 COVID-19 2021-04-11 Completed [facility] 12+ YRS 00:00:00 [place] [facility] SARS-COV-2 COVID-19 2021-04-11 Completed [facility] 12+ YRS 00:00:00 [place] [facility] SARS-COV-2 COVID-19 2021-04-11 Completed [facility] 12+ YRS 00:00:00 [place] [facility] SARS-COV-2 COVID-19 2021-04-11 Completed [facility] 12+ YRS 00:00:00 [place] [facility] SARS-COV-2 COVID-19 2021-04-11 Completed [facility] 12+ YRS 00:00:00 [place] [facility] SARS-COV-2 COVID-19 2021-04-11 Completed [facility]ER[facility] 12+ YRS 00:00:00 [place] [facility] SARS-COV-2 COVID-19 2021-04-11 Completed [facility]ER[facility] 12+ YRS 00:00:00 [place] [facility] SARS-COV-2 COVID-19 2021-04-11 Completed [facility]ER[facility] 12+ YRS 00:00:00 [place] [facility] SARS-COV-2 COVID-19 2021-04-11 Completed [facility]ER[facility] 12+ YRS 00:00:00 [place] [facility] SARS-COV-2 COVID-19 2021-04-11 Completed [facility]ER[facility] 12+ YRS 00:00:00 [place] [facility] SARS-COV-2 COVID-19 2021-04-11 Completed [facility]ER[facility] 12+ YRS 00:00:00 [place] [facility] SARS-COV-2 COVID-19 2021-04-11 Completed [facility] 12+ YRS 00:00:00 [place] [facility] SARS-COV-2 COVID-19 2021-04-11 Completed [facility]ER[facility] 12+ YRS 00:00:00 [place] [facility] SARS-COV-2 COVID-19 2021-04-11 Completed [facility]ER[facility] 12+ YRS 00:00:00 [place] [facility] SARS-COV-2 COVID-19 2021-04-11 Completed [facility] MODER[facility] 12+ YRS 00:00:00 [place] [facility] SARS-COV-2 COVID-19 2021-04-11 Completed [facility]ER[facility] 12+ YRS 00:00:00 [place] [facility] SARS-COV-2 COVID-19 2021-04-11 Completed [facility]ER[facility] 12+ YRS 00:00:00 [place] [facility] SARS-COV-2 COVID-19 2021-04-11 Completed [facility] 12+ YRS 00:00:00 [place] [facility] SARS-COV-2 COVID-19 2021-04-11 Completed [facility] 12+ YRS 00:00:00 [place] [facility] SARS-COV-2 COVID-19 2021-04-11 Completed [facility] 12+ YRS 00:00:00 [place] [facility] SARS-COV-2 COVID-19 2021-04-11 Completed [facility] 12+ YRS 00:00:00 [place] [facility] SARS-COV-2 COVID-19 2021-04-11 Completed [facility] 12+ YRS 00:00:00 [place] [facility] SARS-COV-2 COVID-19 2021-04-11 Completed [facility] 12+ YRS 00:00:00 [place] [facility] SARS-COV-2 COVID-19 2021-04-11 Completed [facility] 12+ YRS 00:00:00 [place] [facility] SARS-COV-2 COVID-19 2021-04-11 Completed [facility] 12+ YRS 00:00:00 [place] [facility] SARS-COV-2 COVID-19 2021-04-11 Completed [facility] 12+ YRS 00:00:00 [place] [facility] SARS-COV-2 COVID-19 2021-04-11 Completed [facility] 12+ YRS 00:00:00 [place] [facility] SARS-COV-2 COVID-19 2021-04-11 Completed [facility] 12+ YRS 00:00:00 [place] [facility] SARS-COV-2 COVID-19 2021-04-11 Completed [facility] 12+ YRS 00:00:00 [place] [facility] SARS-COV-2 COVID-19 2021-04-11 Completed [facility] 12+ YRS 00:00:00 [place] [facility] SARS-COV-2 COVID-19 2021-04-11 Completed [facility] 12+ YRS 00:00:00 [place] [facility] SARS-COV-2 COVID-19 2021-04-11 Completed [facility] 12+ YRS 00:00:00 [place] [facility] SARS-COV-2 COVID-19 2021-04-11 Completed [facility] 12+ YRS 00:00:00 [place] [facility] SARS-COV-2 COVID-19 2021-04-11 Completed [facility] 12+ YRS 00:00:00 [place] [facility] SARS-COV-2 COVID-19 2021-04-11 Completed [facility] 12+ YRS 00:00:00 [place] [facility] SARS-COV-2 COVID-19 2021-04-11 Completed [facility] 12+ YRS 00:00:00 [place] [facility] SARS-COV-2 COVID-19 2021-04-11 Completed [facility] 12+ YRS 00:00:00 [place] [facility] SARS-COV-2 COVID-19 2021-04-11 Completed [facility] 12+ YRS 00:00:00 [place] [facility] SARS-COV-2 COVID-19 2021-04-11 Completed [facility] 12+ YRS 00:00:00 [place] [facility] SARS-COV-2 COVID-19 2021-04-11 Completed [facility] 12+ YRS 00:00:00 [place] [facility] SARS-COV-2 COVID-19 2021-04-11 Completed [facility] 12+ YRS 00:00:00 [place] [facility] SARS-COV-2 COVID-19 2021-04-11 Completed [facility] 12+ YRS 00:00:00 [place] [facility] SARS-COV-2 COVID-19 2021-04-11 Completed [facility]ER[facility] 12+ YRS 00:00:00 [place] [facility] SARS-COV-2 COVID-19 2021-04-11 Completed [facility] 12+ YRS 00:00:00 [place] [facility] SARS-COV-2 COVID-19 2021-04-11 Completed [facility] 12+ YRS 00:00:00 [place] [facility] SARS-COV-2 COVID-19 2021-04-11 Completed [facility] 12+ YRS 00:00:00 [place] [facility] SARS-COV-2 COVID-19 2021-04-11 Completed [facility]NA 12+ YRS 00:00:00 [place] [facility] SARS-COV-2 COVID-19 2021-04-11 Completed [facility] 12+ YRS 00:00:00 [place] [facility] SARS-COV-2 COVID-19 2021-04-11 Completed [facility] 12+ YRS 00:00:00 [place] [facility] SARS-COV-2 COVID-19 2021-04-11 Completed [facility] 12+ YRS 00:00:00 [place] [facility] SARS-COV-2 COVID-19 2021-04-11 Completed [facility]ERNA 12+ YRS 00:00:00 [place] [facility] SARS-COV-2 COVID-19 2021-04-11 Completed [facility]ER[facility] 12+ YRS 00:00:00 [place] [facility] SARS-COV-2 COVID-19 2021-04-11 Completed [facility]ERNA 12+ YRS 00:00:00 [place] [facility] SARS-COV-2 COVID-19 2021-04-11 Completed [facility] 12+ YRS 00:00:00 [place] [facility] SARS-COV-2 COVID-19 2021-03-14 Completed [facility] 12+ YRS 00:00:00 [place] [facility] SARS-COV-2 COVID-19 2021-03-14 Completed [facility] 12+ YRS 00:00:00 [place] [facility] SARS-COV-2 COVID-19 2021-03-14 Completed [facility] 12+ YRS 00:00:00 [place] [facility] SARS-COV-2 COVID-19 2021-03-14 Completed [facility] 12+ YRS 00:00:00 [place] [facility] SARS-COV-2 COVID-19 2021-03-14 Completed [facility] 12+ YRS 00:00:00 [place] [facility] SARS-COV-2 COVID-19 2021-03-14 Completed [facility] 12+ YRS 00:00:00 [place] [facility] SARS-COV-2 COVID-19 2021-03-14 Completed [facility] 12+ YRS 00:00:00 [place] [facility] SARS-COV-2 COVID-19 2021-03-14 Completed [facility] 12+ YRS 00:00:00 [place] [facility] SARS-COV-2 COVID-19 2021-03-14 Completed [facility] 12+ YRS 00:00:00 [place] [facility] SARS-COV-2 COVID-19 2021-03-14 Completed [facility] 12+ YRS 00:00:00 [place] [facility] SARS-COV-2 COVID-19 2021-03-14 Completed [facility] 12+ YRS 00:00:00 [place] [facility] SARS-COV-2 COVID-19 2021-03-14 Completed [facility] 12+ YRS 00:00:00 [place] [facility] SARS-COV-2 COVID-19 2021-03-14 Completed [facility] 12+ YRS 00:00:00 [place] [facility] SARS-COV-2 COVID-19 2021-03-14 Completed [facility] 12+ YRS 00:00:00 [place] [facility] SARS-COV-2 COVID-19 2021-03-14 Completed [facility] 12+ YRS 00:00:00 [place] [facility] SARS-COV-2 COVID-19 2021-03-14 Completed [facility] 12+ YRS 00:00:00 [place] [facility] SARS-COV-2 COVID-19 2021-03-14 Completed [facility] 12+ YRS 00:00:00 [place] [facility] SARS-COV-2 COVID-19 2021-03-14 Completed [facility] 12+ YRS 00:00:00 [place] [facility] SARS-COV-2 COVID-19 2021-03-14 Completed [facility] 12+ YRS 00:00:00 [place] [facility] SARS-COV-2 COVID-19 2021-03-14 Completed [facility] 12+ YRS 00:00:00 [place] [facility] SARS-COV-2 COVID-19 2021-03-14 Completed [facility] 12+ YRS 00:00:00 [place] [facility] SARS-COV-2 COVID-19 2021-03-14 Completed [facility] 12+ YRS 00:00:00 [place] [facility] SARS-COV-2 COVID-19 2021-03-14 Completed [facility] 12+ YRS 00:00:00 [place] [facility] SARS-COV-2 COVID-19 2021-03-14 Completed [facility] 12+ YRS 00:00:00 [place] [facility] SARS-COV-2 COVID-19 2021-03-14 Completed [facility] 12+ YRS 00:00:00 [place] [facility] SARS-COV-2 COVID-19 2021-03-14 Completed [facility] 12+ YRS 00:00:00 [place] [facility] SARS-COV-2 COVID-19 2021-03-14 Completed [facility] 12+ YRS 00:00:00 [place] [facility] SARS-COV-2 COVID-19 2021-03-14 Completed [facility] 12+ YRS 00:00:00 [place] [facility] SARS-COV-2 COVID-19 2021-03-14 Completed [facility] 12+ YRS 00:00:00 [place] [facility] SARS-COV-2 COVID-19 2021-03-14 Completed [facility] 12+ YRS 00:00:00 [place] [facility] SARS-COV-2 COVID-19 2021-03-14 Completed [facility] 12+ YRS 00:00:00 [place] [facility] SARS-COV-2 COVID-19 2021-03-14 Completed [facility] 12+ YRS 00:00:00 [place] [facility] SARS-COV-2 COVID-19 2021-03-14 Completed [facility] 12+ YRS 00:00:00 [place] [facility] SARS-COV-2 COVID-19 2021-03-14 Completed [facility] 12+ YRS 00:00:00 [place] [facility] SARS-COV-2 COVID-19 2021-03-14 Completed [facility] 12+ YRS 00:00:00 [place] [facility] SARS-COV-2 COVID-19 2021-03-14 Completed [facility] 12+ YRS 00:00:00 [place] [facility] SARS-COV-2 COVID-19 2021-03-14 Completed [facility]ER[facility] 12+ YRS 00:00:00 [place] [facility] SARS-COV-2 COVID-19 2021-03-14 Completed [facility] 12+ YRS 00:00:00 [place] [facility] SARS-COV-2 COVID-19 2021-03-14 Completed [facility] 12+ YRS 00:00:00 [place] [facility] SARS-COV-2 COVID-19 2021-03-14 Completed [facility] 12+ YRS 00:00:00 [place] [facility] SARS-COV-2 COVID-19 2021-03-14 Completed [facility] 12+ YRS 00:00:00 [place] [facility] SARS-COV-2 COVID-19 2021-03-14 Completed [facility] 12+ YRS 00:00:00 [place] [facility] SARS-COV-2 COVID-19 2021-03-14 Completed [facility] 12+ YRS 00:00:00 [place] [facility] SARS-COV-2 COVID-19 2021-03-14 Completed [facility] 12+ YRS 00:00:00 [place] [facility] SARS-COV-2 COVID-19 2021-03-14 Completed [facility] 12+ YRS 00:00:00 [place] [facility] SARS-COV-2 COVID-19 2021-03-14 Completed [facility]ERNA 12+ YRS 00:00:00 [place] [facility] SARS-COV-2 COVID-19 2021-03-14 Completed [facility] 12+ YRS 00:00:00 [place] [facility] SARS-COV-2 COVID-19 2021-03-14 Completed [facility] 12+ YRS 00:00:00 [place] [facility] SARS-COV-2 COVID-19 2021-03-14 Completed [facility] 12+ YRS 00:00:00 [place] [facility] SARS-COV-2 COVID-19 2021-03-14 Completed [facility] 12+ YRS 00:00:00 [place] [facility] SARS-COV-2 COVID-19 2021-03-14 Completed [facility] 12+ YRS 00:00:00 [place] [facility] SARS-COV-2 COVID-19 2021-03-14 Completed [facility] 12+ YRS 00:00:00 [place] [facility] SARS-COV-2 COVID-19 2021-03-14 Completed [facility] 12+ YRS 00:00:00 [place] [facility] SARS-COV-2 COVID-19 2021-03-14 Completed [facility] 12+ YRS 00:00:00 [place] [facility] SARS-COV-2 COVID-19 2021-03-14 Completed [facility] 12+ YRS 00:00:00 [place] [facility] SARS-COV-2 COVID-19 2021-03-14 Completed [facility] 12+ YRS 00:00:00 [place] [facility] SARS-COV-2 COVID-19 2021-03-14 Completed [facility] 12+ YRS 00:00:00 [place] [facility] SARS-COV-2 COVID-19 2021-03-14 Completed [facility] 12+ YRS 00:00:00 [place] [facility] SARS-COV-2 COVID-19 2021-03-14 Completed [facility] 12+ YRS 00:00:00 [place] [facility] SARS-COV-2 COVID-19 2021-03-14 Completed [facility]ERNA 12+ YRS 00:00:00 [place] [facility] SARS-COV-2 COVID-19 2021-03-14 Completed [facility] 12+ YRS 00:00:00 [place] [facility] SARS-COV-2 COVID-19 2021-03-14 Completed [facility] 12+ YRS 00:00:00 [place] [facility] SARS-COV-2 COVID-19 2021-03-14 Completed [facility] 12+ YRS 00:00:00 [place] [facility] SARS-COV-2 COVID-19 2021-03-14 Completed [facility]NA 12+ YRS 00:00:00 [place] [facility] SARS-COV-2 COVID-19 2021-03-14 Completed [facility] 12+ YRS 00:00:00 [place] [facility] SARS-COV-2 COVID-19 2021-03-14 Completed [facility]ERNA 12+ YRS 00:00:00 [place] [facility] SARS-COV-2 COVID-19 2021-03-14 Completed [facility]ERNA 12+ YRS 00:00:00 [place] [facility] SARS-COV-2 COVID-19 2021-03-14 Completed [facility]NA 12+ YRS 00:00:00 [place] [facility] SARS-COV-2 COVID-19 2021-03-14 Completed [facility]ERNA 12+ YRS 00:00:00 [place] [facility] SARS-COV-2 COVID-19 2021-03-14 Completed [facility]ERNA 12+ YRS 00:00:00 [place] [facility] SARS-COV-2 COVID-19 2021-03-14 Completed [facility]ERNA 12+ YRS 00:00:00 [place] [facility] SARS-COV-2 COVID-19 2021-03-14 Completed [facility]ERNA 12+ YRS 00:00:00 [place] [facility] SARS-COV-2 COVID-19 2021-03-14 Completed [facility]ERNA 12+ YRS 00:00:00 [place] [facility] SARS-COV-2 COVID-19 2021-03-14 Completed [facility]ERNA 12+ YRS 00:00:00 [place] [facility] SARS-COV-2 COVID-19 2021-03-14 Completed [facility] 12+ YRS 00:00:00 [place] [facility] SARS-COV-2 COVID-19 2021-03-14 Completed [facility] 12+ YRS 00:00:00 [place] [facility] SARS-COV-2 COVID-19 2021-03-14 Completed [facility] 12+ YRS 00:00:00 [place] [facility] SARS-COV-2 COVID-19 2021-03-14 Completed [facility] 12+ YRS 00:00:00 [place] [facility] SARS-COV-2 COVID-19 2021-03-14 Completed [facility] 12+ YRS 00:00:00 [place] [facility] SARS-COV-2 COVID-19 2021-03-14 Completed [facility] 12+ YRS 00:00:00 [place] [facility] SARS-COV-2 COVID-19 2021-03-14 Completed [facility] 12+ YRS 00:00:00 [place] [facility] SARS-COV-2 COVID-19 2021-03-14 Completed [facility] 12+ YRS 00:00:00 [place] [facility] SARS-COV-2 COVID-19 2021-03-14 Completed [facility] 12+ YRS 00:00:00 [place] [facility] SARS-COV-2 COVID-19 2021-03-14 Completed [facility] 12+ YRS 00:00:00 [place] [facility] SARS-COV-2 COVID-19 2021-03-14 Completed [facility] 12+ YRS 00:00:00 [place] [facility] SARS-COV-2 COVID-19 2021-03-14 Completed [facility] 12+ YRS 00:00:00 [place] [facility] SARS-COV-2 COVID-19 2021-03-14 Completed [facility] 12+ YRS 00:00:00 [place] [facility] SARS-COV-2 COVID-19 2021-03-14 Completed [facility] 12+ YRS 00:00:00 [place] [facility] SARS-COV-2 COVID-19 2021-03-14 Completed [facility] 12+ YRS 00:00:00 [place] [facility] SARS-COV-2 COVID-19 2021-03-14 Completed [facility] 12+ YRS 00:00:00 [place] [facility] SARS-COV-2 COVID-19 2021-03-14 Completed [facility] 12+ YRS 00:00:00 [place] [facility] Branch SARS-COV-2 COVID-19 2021-03-14 Completed [facility] 12+ YRS 00:00:00 [place] [facility] SARS-COV-2 COVID-19 2021-03-14 Completed [facility] 12+ YRS 00:00:00 [place] [facility] SARS-COV-2 COVID-19 2021-03-14 Completed [facility] 12+ YRS 00:00:00 [place] [facility] SARS-COV-2 COVID-19 2021-03-14 Completed [facility] of [facility] 12+ YRS 00:00:00 [place] [facility] SARS-COV-2 COVID-19 2021-03-14 Completed [facility] 12+ YRS 00:00:00 [place] [facility] SARS-COV-2 COVID-19 2021-03-14 Completed [facility] of [facility] 12+ YRS 00:00:00 [facility] ical VACCINE Branch SARS-COV-2 COVID-19 2021-03-14 Completed [facility]ive rs[facility] of [facility]ER[facility] 12+ YRS 00:00:00 [facility] ical VACCINE Branch SARS-COV-2 COVID-19 2021-03-14 Completed [facility] rs[facility] of [facility] 12+ YRS 00:00:00 [facility] ical VACCINE Branch SARS-COV-2 COVID-19 2021-03-14 Completed [facility]ive [facility] of [facility]ER[facility] 12+ YRS 00:00:00 [facility] ical VACCINE Branch SARS-COV-2 COVID-19 2021-03-14 Completed [facility]ive [facility] of [facility]ER[facility] 12+ YRS 00:00:00 [facility] ical VACCINE Branch SARS-COV-2 COVID-19 2021-03-14 Completed [facility] of [facility] 12+ YRS 00:00:00 [facility] ical VACCINE Branch SARS-COV-2 COVID-19 2021-03-14 Completed [facility] of [facility] 12+ YRS 00:00:00 [facility] ical VACCINE Branch SARS-COV-2 COVID-19 2021-03-14 Completed [facility]ive rsity of [facility]ER[facility] 12+ YRS 00:00:00 [facility] ical VACCINE Branch SARS-COV-2 COVID-19 2021-03-14 Completed [facility] of [facility] 12+ YRS 00:00:00 [facility] ical VACCINE Branch SARS-COV-2 COVID-19 2021-03-14 Completed [facility] of [facility] 12+ YRS 00:00:00 [facility] V[facility] Influenza Virus 2021-02-05 Completed [facility], 00:00:00 [place] [facility] Preserv and ABX Free Bran ch 6 MO-64 YRS HPV9 2021-02-05 Completed University of 00:00:00 [facility] Influenza Virus 2021-02-05 Completed [facility], 00:00:00 [place] [facility] Preserv and ABX Free Bran ch 6 MO-64 YRS HPV9 2021-02-05 Completed University 00:00:00 [facility] Influenza Virus 2021-02-05 Completed [facility], 00:00:00 [place] [facility] Preserv and ABX Free Bran ch 6 MO-64 YRS HPV9 2021-02-05 Completed [facility] of 00:00:00 [facility] Influenza Virus 2021-02-05 Completed [facility], 00:00:00 [place] [facility] Preserv and ABX Free Bran ch 6 MO-64 YRS HPV9 2021-02-05 Completed [facility] of 00:00:00 [facility] [place] [facility] Influenza Virus 2021-02-05 Completed [facility], 00:00:00 [place] [facility] Preserv and ABX Free Bran ch 6 MO-64 YRS HPV9 2021-02-05 Completed [facility] of 00:00:00 [facility] [place] [facility] Influenza Virus 2021-02-05 Completed [facility], 00:00:00 [place] [facility] Preserv and ABX Free Bran ch 6 MO-64 YRS HPV9 2021-02-05 Completed [facility] of 00:00:00 [facility] [place] [facility] Influenza Virus 2021-02-05 Completed [facility], 00:00:00 [place] [facility] Preserv and ABX Free Bran ch 6 MO-64 YRS HPV9 2021-02-05 Completed [facility] of 00:00:00 [facility] [place] [facility] Influenza Virus 2021-02-05 Completed [facility], 00:00:00 [place] [facility] Preserv and ABX Free Bran ch 6 MO-64 YRS HPV9 2021-02-05 Completed [facility] of 00:00:00 [facility] [place] [facility] Influenza Virus 2021-02-05 Completed [facility], 00:00:00 [place] [facility] Preserv and ABX Free Bran ch 6 MO-64 YRS HPV9 2021-02-05 Completed [facility] of 00:00:00 [facility] [place] [facility] Influenza Virus 2021-02-05 Completed [facility], 00:00:00 [place] [facility] Preserv and ABX Free Bran ch 6 MO-64 YRS HPV9 2021-02-05 Completed [facility] of 00:00:00 [facility] [place] [facility] Influenza Virus 2021-02-05 Completed [facility], 00:00:00 [place] [facility] Preserv and ABX Free Bran ch 6 MO-64 YRS HPV9 2021-02-05 Completed [facility] of 00:00:00 [facility] [place] [facility] Influenza Virus 2021-02-05 Completed [facility], 00:00:00 [place] [facility] Preserv and ABX Free Bran ch 6 MO-64 YRS HPV9 2021-02-05 Completed [facility] of 00:00:00 [facility] [place] [facility] Influenza Virus 2021-02-05 Completed [facility], 00:00:00 [place] [facility] Preserv and ABX Free Bran ch 6 MO-64 YRS HPV9 2021-02-05 Completed [facility] of 00:00:00 [facility] [place] [facility] Influenza Virus 2021-02-05 Completed [facility], 00:00:00 [place] [facility] Preserv and ABX Free Bran ch 6 MO-64 YRS HPV9 2021-02-05 Completed [facility] of 00:00:00 [facility] [place] [facility] Influenza Virus 2021-02-05 Completed [facility], 00:00:00 [place] [facility] Preserv and ABX Free Bran ch 6 MO-64 YRS HPV9 2021-02-05 Completed [facility] of 00:00:00 [facility] [place] [facility] Influenza Virus 2021-02-05 Completed [facility], 00:00:00 [place] [facility] Preserv and ABX Free Bran ch 6 MO-64 YRS HPV9 2021-02-05 Completed [facility] of 00:00:00 [facility] [place] [facility] Influenza Virus 2021-02-05 Completed [facility], 00:00:00 [place] [facility] Preserv and ABX Free Bran ch 6 MO-64 YRS HPV9 2021-02-05 Completed [facility] of 00:00:00 [facility] [place] [facility] Influenza Virus 2021-02-05 Completed [facility], 00:00:00 [place] [facility] Preserv and ABX Free Bran ch 6 MO-64 YRS HPV9 2021-02-05 Completed [facility] of 00:00:00 [facility] [place] [facility] Influenza Virus 2021-02-05 Completed [facility], 00:00:00 [place] [facility] Preserv and ABX Free Bran ch 6 MO-64 YRS HPV9 2021-02-05 Completed [facility] of 00:00:00 [facility] [place] [facility] Influenza Virus 2021-02-05 Completed [facility], 00:00:00 [place] [facility] Preserv and ABX Free Bran ch 6 MO-64 YRS HPV9 2021-02-05 Completed [facility] of 00:00:00 [facility] [place] [facility] Influenza Virus 2021-02-05 Completed [facility], 00:00:00 [place] [facility] Preserv and ABX Free Bran ch 6 MO-64 YRS HPV9 2021-02-05 Completed [facility] of 00:00:00 [facility] [place] [facility] Influenza Virus 2021-02-05 Completed [facility], 00:00:00 [place] [facility] Preserv and ABX Free Bran ch 6 MO-64 YRS HPV9 2021-02-05 Completed [facility] of 00:00:00 [facility] [place] [facility] Influenza Virus 2021-02-05 Completed [facility], 00:00:00 [place] [facility] Preserv and ABX Free Bran ch 6 MO-64 YRS HPV9 2021-02-05 Completed [facility] of 00:00:00 [facility] [place] [facility] Influenza Virus 2021-02-05 Completed [facility], 00:00:00 [place] [facility] Preserv and ABX Free Bran ch 6 MO-64 YRS HPV9 2021-02-05 Completed [facility] of 00:00:00 [facility] [place] [facility] Influenza Virus 2021-02-05 Completed [facility], 00:00:00 [place] [facility] Preserv and ABX Free Bran ch 6 MO-64 YRS HPV9 2021-02-05 Completed [facility] of 00:00:00 [facility] [place] [facility] Influenza Virus 2021-02-05 Completed [facility], 00:00:00 [place] [facility] Preserv and ABX Free Bran ch 6 MO-64 YRS HPV9 2021-02-05 Completed [facility] of 00:00:00 [facility] [place] [facility] Influenza Virus 2021-02-05 Completed [facility], 00:00:00 [place] [facility] Preserv and ABX Free Bran ch 6 MO-64 YRS HPV9 2021-02-05 Completed [facility] of 00:00:00 [facility] [place] [facility] Influenza Virus 2021-02-05 Completed [facility], 00:00:00 [place] [facility] Preserv and ABX Free Bran ch 6 MO-64 YRS HPV9 2021-02-05 Completed [facility] of 00:00:00 [facility] [place] [facility] Influenza Virus 2021-02-05 Completed [facility], 00:00:00 [place] [facility] Preserv and ABX Free Bran ch 6 MO-64 YRS HPV9 2021-02-05 Completed [facility] of 00:00:00 [facility] [place] [facility] Influenza Virus 2021-02-05 Completed [facility], 00:00:00 [place] [facility] Preserv and ABX Free Bran ch 6 MO-64 YRS HPV9 2021-02-05 Completed [facility] of 00:00:00 [facility] [place] [facility] Influenza Virus 2021-02-05 Completed [facility], 00:00:00 [place] [facility] Preserv and ABX Free Bran ch 6 MO-64 YRS HPV9 2021-02-05 Completed [facility] of 00:00:00 [facility] [place] [facility] Influenza Virus 2021-02-05 Completed [facility], 00:00:00 [place] [facility] Preserv and ABX Free Bran ch 6 MO-64 YRS HPV9 2021-02-05 Completed [facility] of 00:00:00 [facility] [place] [facility] Influenza Virus 2021-02-05 Completed [facility], 00:00:00 [place] [facility] Preserv and ABX Free Bran ch 6 MO-64 YRS HPV9 2021-02-05 Completed [facility] of 00:00:00 [facility] [place] [facility] Influenza Virus 2021-02-05 Completed [facility], 00:00:00 [place] [facility] Preserv and ABX Free Bran ch 6 MO-64 YRS HPV9 2021-02-05 Completed [facility] of 00:00:00 [facility] [place] [facility] Influenza Virus 2021-02-05 Completed [facility], 00:00:00 [place] [facility] Preserv and ABX Free Bran ch 6 MO-64 YRS HPV9 2021-02-05 Completed [facility] of 00:00:00 [facility] [place] [facility] Influenza Virus 2021-02-05 Completed [facility], 00:00:00 [place] [facility] Preserv and ABX Free Bran ch 6 MO-64 YRS HPV9 2021-02-05 Completed [facility] of 00:00:00 [facility] [place] [facility] Influenza Virus 2021-02-05 Completed [facility], 00:00:00 [place] [facility] Preserv and ABX Free Bran ch 6 MO-64 YRS HPV9 2021-02-05 Completed [facility] of 00:00:00 [facility] [place] [facility] Influenza Virus 2021-02-05 Completed [facility], 00:00:00 [place] [facility] Preserv and ABX Free Bran ch 6 MO-64 YRS HPV9 2021-02-05 Completed [facility] of 00:00:00 [facility] [place] [facility] Influenza Virus 2021-02-05 Completed [facility], 00:00:00 [place] [facility] Preserv and ABX Free Bran ch 6 MO-64 YRS HPV9 2021-02-05 Completed [facility] of 00:00:00 [facility] [place] [facility] Influenza Virus 2021-02-05 Completed [facility], 00:00:00 [place] [facility] Preserv and ABX Free Bran ch 6 MO-64 YRS HPV9 2021-02-05 Completed [facility] of 00:00:00 [facility] [place] [facility] Influenza Virus 2021-02-05 Completed [facility], 00:00:00 [place] [facility] Preserv and ABX Free Bran ch 6 MO-64 YRS HPV9 2021-02-05 Completed [facility] of 00:00:00 [facility] [place] [facility] Influenza Virus 2021-02-05 Completed [facility], 00:00:00 [place] [facility] Preserv and ABX Free Bran ch 6 MO-64 YRS HPV9 2021-02-05 Completed [facility] of 00:00:00 [facility] [place] [facility] Influenza Virus 2021-02-05 Completed [facility], 00:00:00 [place] [facility] Preserv and ABX Free Bran ch 6 MO-64 YRS HPV9 2021-02-05 Completed [facility] of 00:00:00 [facility] [place] [facility] Influenza Virus 2021-02-05 Completed [facility], 00:00:00 [place] [facility] Preserv and ABX Free Bran ch 6 MO-64 YRS HPV9 2021-02-05 Completed [facility] of 00:00:00 [facility] [place] [facility] Influenza Virus 2021-02-05 Completed [facility], 00:00:00 [place] [facility] Preserv and ABX Free Bran ch 6 MO-64 YRS HPV9 2021-02-05 Completed [facility] of 00:00:00 [facility] [place] [facility] Influenza Virus 2021-02-05 Completed [facility], 00:00:00 [place] [facility] Preserv and ABX Free Bran ch 6 MO-64 YRS HPV9 2021-02-05 Completed [facility] of 00:00:00 [facility] Influenza Virus 2021-02-05 Completed [facility], 00:00:00 [place] [facility] Preserv and ABX Free Bran ch 6 MO-64 YRS HPV9 2021-02-05 Completed [facility] of 00:00:00 [facility] [place] [facility] Influenza Virus 2021-02-05 Completed [facility], 00:00:00 [place] [facility] Preserv and ABX Free Bran ch 6 MO-64 YRS HPV9 2021-02-05 Completed [facility] of 00:00:00 [facility] [place] [facility] Influenza Virus 2021-02-05 Completed [facility], 00:00:00 [place] [facility] Preserv and ABX Free Bran ch 6 MO-64 YRS HPV9 2021-02-05 Completed [facility] of 00:00:00 [facility] [place] [facility] Influenza Virus 2021-02-05 Completed [facility], 00:00:00 [place] [facility] Preserv and ABX Free Bran ch 6 MO-64 YRS HPV9 2021-02-05 Completed [facility] of 00:00:00 [facility] [place] [facility] Influenza Virus 2021-02-05 Completed [facility], 00:00:00 [place] [facility] Preserv and ABX Free Bran ch 6 MO-64 YRS HPV9 2021-02-05 Completed [facility] of 00:00:00 [facility] [place] [facility] Influenza Virus 2021-02-05 Completed [facility], 00:00:00 [place] [facility] Preserv and ABX Free Bran ch 6 MO-64 YRS HPV9 2021-02-05 Completed [facility] of 00:00:00 [facility] [place] [facility] Influenza Virus 2021-02-05 Completed [facility], 00:00:00 [place] [facility] Preserv and ABX Free Bran ch 6 MO-64 YRS HPV9 2021-02-05 Completed [facility] of 00:00:00 [facility] [place] [facility] Influenza Virus 2021-02-05 Completed [facility], 00:00:00 [place] [facility] Preserv and ABX Free Bran ch 6 MO-64 YRS HPV9 2021-02-05 Completed [facility] of 00:00:00 [facility] [place] [facility] Influenza Virus 2021-02-05 Completed [facility], 00:00:00 [place] [facility] Preserv and ABX Free Bran ch 6 MO-64 YRS HPV9 2021-02-05 Completed [facility] of 00:00:00 [facility] [place] [facility] Influenza Virus 2021-02-05 Completed [facility], 00:00:00 [place] [facility] Preserv and ABX Free Bran ch 6 MO-64 YRS HPV9 2021-02-05 Completed [facility] of 00:00:00 [facility] [place] [facility] Influenza Virus 2021-02-05 Completed [facility], 00:00:00 [place] [facility] Preserv and ABX Free Bran ch 6 MO-64 YRS HPV9 2021-02-05 Completed [facility] of 00:00:00 [facility] [place] [facility] Influenza Virus 2021-02-05 Completed [facility], 00:00:00 [place] [facility] Preserv and ABX Free Bran ch 6 MO-64 YRS HPV9 2021-02-05 Completed [facility] of 00:00:00 [facility] [place] [facility] Influenza Virus 2021-02-05 Completed [facility], 00:00:00 [place] [facility] Preserv and ABX Free Bran ch 6 MO-64 YRS HPV9 2021-02-05 Completed [facility] of 00:00:00 [facility] [place] [facility] Influenza Virus 2021-02-05 Completed [facility], 00:00:00 [place] [facility] Preserv and ABX Free Bran ch 6 MO-64 YRS HPV9 2021-02-05 Completed [facility] of 00:00:00 [facility] [place] [facility] Influenza Virus 2021-02-05 Completed [facility], 00:00:00 [place] [facility] Preserv and ABX Free Bran ch 6 MO-64 YRS HPV9 2021-02-05 Completed [facility] of 00:00:00 [facility] [place] [facility] Influenza Virus 2021-02-05 Completed [facility], 00:00:00 [place] [facility] Preserv and ABX Free Bran ch 6 MO-64 YRS HPV9 2021-02-05 Completed [facility] of 00:00:00 [facility] [place] [facility] Influenza Virus 2021-02-05 Completed [facility], 00:00:00 [place] [facility] Preserv and ABX Free Bran ch 6 MO-64 YRS HPV9 2021-02-05 Completed [facility] of 00:00:00 [facility] [place] [facility] Influenza Virus 2021-02-05 Completed [facility], 00:00:00 [place] [facility] Preserv and ABX Free Bran ch 6 MO-64 YRS HPV9 2021-02-05 Completed [facility] of 00:00:00 [facility] [place] [facility] Influenza Virus 2021-02-05 Completed [facility], 00:00:00 [place] [facility] Preserv and ABX Free Bran ch 6 MO-64 YRS HPV9 2021-02-05 Completed [facility] of 00:00:00 [facility] [place] [facility] Influenza Virus 2021-02-05 Completed [facility], 00:00:00 [place] [facility] Preserv and ABX Free Bran ch 6 MO-64 YRS HPV9 2021-02-05 Completed [facility] of 00:00:00 [facility] [place] [facility] Influenza Virus 2021-02-05 Completed [facility], 00:00:00 [place] [facility] Preserv and ABX Free Bran ch 6 MO-64 YRS HPV9 2021-02-05 Completed [facility] of 00:00:00 [facility] [place] [facility] Influenza Virus 2021-02-05 Completed [facility], 00:00:00 [place] [facility] Preserv and ABX Free Bran ch 6 MO-64 YRS HPV9 2021-02-05 Completed [facility] of 00:00:00 [facility] [place] [facility] Influenza Virus 2021-02-05 Completed [facility], 00:00:00 [place] [facility] Preserv and ABX Free Bran ch 6 MO-64 YRS HPV9 2021-02-05 Completed [facility] of 00:00:00 [facility] [place] [facility] Influenza Virus 2021-02-05 Completed [facility], 00:00:00 [place] [facility] Preserv and ABX Free Bran ch 6 MO-64 YRS HPV9 2021-02-05 Completed [facility] of 00:00:00 [facility] [place] [facility] Influenza Virus 2021-02-05 Completed [facility], 00:00:00 [place] [facility] Preserv and ABX Free Bran ch 6 MO-64 YRS HPV9 2021-02-05 Completed [facility] of 00:00:00 [facility] [place] [facility] Influenza Virus 2021-02-05 Completed [facility], 00:00:00 [place] [facility] Preserv and ABX Free Bran ch 6 MO-64 YRS HPV9 2021-02-05 Completed [facility] 00:00:00 [facility] [place] [facility] Influenza Virus 2021-02-05 Completed [facility], 00:00:00 [place] [facility] Preserv and ABX Free Bran ch 6 MO-64 YRS HPV9 2021-02-05 Completed [facility] 00:00:00 [facility] [place] [facility] Influenza Virus 2021-02-05 Completed [facility], 00:00:00 [place] [facility] Preserv and ABX Free Bran ch 6 MO-64 YRS HPV9 2021-02-05 Completed [facility] 00:00:00 [facility] [place] [facility] Influenza Virus 2021-02-05 Completed [facility], 00:00:00 [place] [facility] Preserv and ABX Free Bran ch 6 MO-64 YRS HPV9 2021-02-05 Completed [facility] of 00:00:00 [facility] [place] [facility] Influenza Virus 2021-02-05 Completed [facility], 00:00:00 [place] [facility] Preserv and ABX Free Bran ch 6 MO-64 YRS HPV9 2021-02-05 Completed [facility] 00:00:00 [facility] [place] [facility] Influenza Virus 2021-02-05 Completed [facility], 00:00:00 [place] [facility] Preserv and ABX Free Bran ch 6 MO-64 YRS HPV9 2021-02-05 Completed [facility] 00:00:00 [facility] Influenza Virus 2021-02-05 Completed [facility], 00:00:00 [place] [facility] Preserv and ABX Free Bran ch 6 MO-64 YRS HPV9 2021-02-05 Completed [facility] 00:00:00 [facility] [place] [facility] Influenza Virus 2021-02-05 Completed [facility], 00:00:00 [place] [facility] Preserv and ABX Free Bran ch 6 MO-64 YRS HPV9 2021-02-05 Completed [facility] 00:00:00 [facility] [place] [facility] Influenza Virus 2021-02-05 Completed [facility], 00:00:00 [place] [facility] Preserv and ABX Free Bran ch 6 MO-64 YRS HPV9 2021-02-05 Completed [facility] 00:00:00 [facility] [place] [facility] Influenza Virus 2021-02-05 Completed [facility], 00:00:00 [place] [facility] Preserv and ABX Free Bran ch 6 MO-64 YRS HPV9 2021-02-05 Completed [facility] 00:00:00 [facility] [place] [facility] Influenza Virus 2021-02-05 Completed [facility], 00:00:00 [place] [facility] Preserv and ABX Free Bran ch 6 MO-64 YRS HPV9 2021-02-05 Completed [facility] 00:00:00 [facility] [place] [facility] Influenza Virus 2021-02-05 Completed [facility], 00:00:00 [place] [facility] Preserv and ABX Free Bran ch 6 MO-64 YRS HPV9 2021-02-05 Completed [facility] 00:00:00 [facility] [place] [facility] Influenza Virus 2021-02-05 Completed [facility], 00:00:00 [place] [facility] Preserv and ABX Free Bran ch 6 MO-64 YRS HPV9 2021-02-05 Completed [facility] 00:00:00 [facility] Influenza Virus 2021-02-05 Completed [facility], 00:00:00 [place] [facility] Preserv and ABX Free Bran ch 6 MO-64 YRS HPV9 2021-02-05 Completed [facility] 00:00:00 [facility] Influenza Virus 2021-02-05 Completed [facility], 00:00:00 [place] [facility] Preserv and ABX Free Bran ch 6 MO-64 YRS HPV9 2021-02-05 Completed [facility] 00:00:00 [facility] Influenza Virus 2021-02-05 Completed [facility], 00:00:00 [place] [facility] Preserv and ABX Free Bran ch 6 MO-64 YRS HPV9 2021-02-05 Completed [facility] 00:00:00 [facility] Influenza Virus 2021-02-05 Completed [facility], 00:00:00 [place] [facility] Preserv and ABX Free Bran ch 6 MO-64 YRS HPV9 2021-02-05 Completed [facility] 00:00:00 [facility] Influenza Virus 2021-02-05 Completed [facility], 00:00:00 [place] [facility] Preserv and ABX Free Bran ch 6 MO-64 YRS HPV9 2021-02-05 Completed [facility] 00:00:00 [facility] Influenza Virus 2021-02-05 Completed [facility], 00:00:00 [place] [facility] Preserv and ABX Free Bran ch 6 MO-64 YRS HPV9 2021-02-05 Completed [facility] 00:00:00 [facility] Influenza Virus 2021-02-05 Completed [facility], 00:00:00 [place] [facility] Preserv and ABX Free Bran ch 6 MO-64 YRS HPV9 2021-02-05 Completed [facility] 00:00:00 [facility] Influenza Virus 2021-02-05 Completed [facility], 00:00:00 [place] [facility] Preserv and ABX Free Bran ch 6 MO-64 YRS HPV9 2021-02-05 Completed [facility] 00:00:00 [facility] Influenza Virus 2021-02-05 Completed [facility], 00:00:00 [facility] dical Preserv and ABX Free Bran ch 6 MO-64 YRS HPV9 2021-02-05 Completed [facility] of 00:00:00 [facility] Influenza Virus 2021-02-05 Completed [facility], 00:00:00 [facility] dical Preserv and ABX Free Bran ch 6 MO-64 YRS HPV9 2021-02-05 Completed [facility] 00:00:00 [facility] Influenza Virus 2021-02-05 Completed [facility], 00:00:00 [place] [facility] Preserv and ABX Free Bran ch 6 MO-64 YRS HPV9 2021-02-05 Completed [facility] 00:00:00 [facility] Influenza Virus 2021-02-05 Completed [facility], 00:00:00 [place] [facility] Preserv and ABX Free Bran ch 6 MO-64 YRS HPV9 2021-02-05 Completed [facility] 00:00:00 [facility] Influenza Virus 2021-02-05 Completed [facility], 00:00:00 [place] [facility] Preserv and ABX Free Bran ch 6 MO-64 YRS HPV9 2021-02-05 Completed [facility] 00:00:00 [facility] Influenza Virus 2021-02-05 Completed [facility], 00:00:00 [place] [facility] Preserv and ABX Free Bran ch 6 MO-64 YRS HPV9 2021-02-05 Completed [facility] 00:00:00 [facility] Influenza Virus 2021-02-05 Completed [facility], 00:00:00 [place] [facility] Preserv and ABX Free Bran ch 6 MO-64 YRS HPV9 2021-02-05 Completed [facility] 00:00:00 [facility] Influenza Virus 2021-02-05 Completed [facility], 00:00:00 [place] [facility] Preserv and ABX Free Bran ch 6 MO-64 YRS HPV9 2021-02-05 Completed [facility] 00:00:00 [facility] Influenza Virus 2021-02-05 Completed [facility], 00:[facility]:00 [place] [facility]erv [facility] ABX Free Bran ch 6 [place]-64 YRS HPV9 2021-02-05 Completed [facility] 00:00:00 [facility] Influenza Virus 2021-02-05 Completed [facility], 00:00:00 [place] [facility] Preserv and ABX Free Bran ch 6 MO-64 YRS HPV9 2021-02-05 Completed [facility] 00:00:00 [facility] Influenza Virus 2021-02-05 Completed [facility], 00:00:00 [place] [facility] Preserv and ABX Free Bran ch 6 MO-64 YRS HPV9 2021-02-05 Completed [facility] 00:00:00 [facility] Influenza Virus 2021-02-05 Completed [facility], 00:00:00 [place] [facility] Preserv and ABX Free Bran ch 6 MO-64 YRS HPV9 2021-02-05 Completed [facility] 00:00:00 [facility] Influenza Virus 2021-02-05 Completed [facility], 00:00:00 [place] [facility] Preserv and ABX Free Bran ch 6 [place]-64 YRS HPV9 2021-02-05 Completed [facility] 00:00:00 [facility] Influenza Virus 2021-02-05 Completed [facility], 00:00:00 [place] [facility] Preserv and ABX Free Bran ch 6 [place]-64 YRS (FLUCELVAX) [facility] 2021-02-05 Completed [facility] 00:00:00 [facility] HPV9 2020-05-10 Completed [facility] 00:00:00 [facility] HPV9 2020-05-10 Completed [facility] 00[facility]00:00 [facility] HPV9 2020-05-10 Completed [facility] 00:00:00 [facility] HPV9 2020-05-10 Completed [facility] 00:00:00 [facility] HPV9 2020-05-10 Completed [facility] 00:00:00 [facility] HPV9 2020-05-10 Completed [facility] 00:00:00 [facility] HPV9 2020-05-10 Completed [facility] 00:00:00 [facility] HPV9 2020-05-10 Completed [facility] 00[facility]00:00 [facility] HPV9 2020-05-10 Completed [facility] 00[facility]00:00 [facility] HPV9 2020-05-10 Completed [facility] 00[facility]00:00 [facility] HPV9 2020-05-10 Completed [facility] 00[facility]00:00 [facility] HPV9 2020-05-10 Completed [facility] 00[facility]00:00 [facility] HPV9 2020-05-10 Completed [facility] 00[facility]00:00 [facility] HPV9 2020-05-10 Completed [facility] 00[facility]00:00 [facility] HPV9 2020-05-10 Completed [facility] 00[facility]00:00 [facility] HPV9 2020-05-10 Completed [facility] 00[facility]00:00 [facility] HPV9 2020-05-10 Completed [facility] 00:00:00 [facility] HPV9 2020-05-10 Completed [facility] 00[facility]00:00 [facility] HPV9 2020-05-10 Completed [facility] 00[facility]00:00 [facility] HPV9 2020-05-10 Completed [facility] 00[facility]00:00 [facility] HPV9 2020-05-10 Completed [facility] 00[facility]00:00 [facility] HPV9 2020-05-10 Completed [facility] 00:00:00 [facility] HPV9 2020-05-10 Completed [facility] 00:00:00 [facility] HPV9 2020-05-10 Completed [facility] 00:00:00 [facility] HPV9 2020-05-10 Completed [facility] 00:00:00 [facility] HPV9 2020-05-10 Completed [facility] 00:00:00 [facility] HPV9 2020-05-10 Completed [facility] 00:00:00 [facility] HPV9 2020-05-10 Completed [facility] 00:00:00 [facility] HPV9 2020-05-10 Completed [facility] 00:00:00 [facility] HPV9 2020-05-10 Completed [facility] 00:00:00 [facility] HPV9 2020-05-10 Completed [facility] 00:00:00 [facility] HPV9 2020-05-10 Completed [facility] 00:00:00 [facility] HPV9 2020-05-10 Completed [facility] 00:00:00 [facility] HPV9 2020-05-10 Completed [facility] 00:00:00 [facility] HPV9 2020-05-10 Completed [facility] 00:00:00 [facility] HPV9 2020-05-10 Completed [facility] 00:00:00 [facility] HPV9 2020-05-10 Completed [facility] 00:00:00 [facility] HPV9 2020-05-10 Completed [facility] 00:00:00 [facility] HPV9 2020-05-10 Completed [facility] 00:00:00 [facility] HPV9 2020-05-10 Completed [facility] 00:00:00 [facility] HPV9 2020-05-10 Completed [facility] 00:00:00 [facility] HPV9 2020-05-10 Completed [facility] 00:00:00 [facility] HPV9 2020-05-10 Completed [facility] 00:00:00 [facility] HPV9 2020-05-10 Completed [facility] 00:00:00 [facility] HPV9 2020-05-10 Completed [facility] 00:00:00 [facility] HPV9 2020-05-10 Completed [facility] 00:00:00 [facility] HPV9 2020-05-10 Completed [facility] 00:00:00 [facility] HPV9 2020-05-10 Completed [facility] 00:00:00 [facility] HPV9 2020-05-10 Completed [facility] 00:00:00 [facility] HPV9 2020-05-10 Completed [facility] 00:00:00 [facility] HPV9 2020-05-10 Completed [facility] 00:00:00 [facility] HPV9 2020-05-10 Completed [facility] 00:00:00 [facility] HPV9 2020-05-10 Completed [facility] 00:00:00 [facility] HPV9 2020-05-10 Completed [facility] 00:00:00 [facility] HPV9 2020-05-10 Completed [facility] 00:00:00 [facility] HPV9 2020-05-10 Completed [facility] 00:00:00 [facility] HPV9 2020-05-10 Completed [facility] 00:00:00 [facility] HPV9 2020-05-10 Completed [facility] 00:00:00 [facility] HPV9 2020-05-10 Completed [facility] 00:00:00 [facility] HPV9 2020-05-10 Completed [facility] 00:00:00 [facility] HPV9 2020-05-10 Completed [facility] 00:00:00 [facility] HPV9 2020-05-10 Completed [facility] 00:00:00 [facility] HPV9 2020-05-10 Completed [facility] 00:00:00 [facility] HPV9 2020-05-10 Completed [facility] 00:00:00 [facility] HPV9 2020-05-10 Completed [facility] 00:00:00 [facility] HPV9 2020-05-10 Completed [facility] 00:00:00 [facility] HPV9 2020-05-10 Completed [facility] 00:00:00 [facility] HPV9 2020-05-10 Completed [facility] 00:00:00 [facility] HPV9 2020-05-10 Completed [facility] 00:00:00 [facility] HPV9 2020-05-10 Completed [facility] 00:00:00 [facility] HPV9 2020-05-10 Completed [facility] 00:00:00 [facility] HPV9 2020-05-10 Completed [facility] 00:00:00 [facility] HPV9 2020-05-10 Completed [facility] 00:00:00 [facility] HPV9 2020-05-10 Completed [facility] 00:00:00 [facility] HPV9 2020-05-10 Completed [facility] 00:00:00 [facility] HPV9 2020-05-10 Completed [facility] 00:00:00 [facility] HPV9 2020-05-10 Completed [facility] 00:00:00 [facility] HPV9 2020-05-10 Completed [facility] 00:00:00 [facility] HPV9 2020-05-10 Completed [facility] 00:00:00 [facility] HPV9 2020-05-10 Completed [facility] 00:00:00 [facility] HPV9 2020-05-10 Completed [facility] 00:00:00 [facility] HPV9 2020-05-10 Completed [facility] 00:00:00 [facility] HPV9 2020-05-10 Completed [facility] 00:00:00 [facility] HPV9 2020-05-10 Completed [facility] 00:00:00 [facility] HPV9 2020-05-10 Completed [facility] 00:00:00 [facility] HPV9 2020-05-10 Completed [facility] 00:00:00 [facility] HPV9 2020-05-10 Completed [facility] 00:00:00 [facility] HPV9 2020-05-10 Completed [facility] 00:00:00 [facility] HPV9 2020-05-10 Completed [facility] 00:00:00 [facility] HPV9 2020-05-10 Completed [facility] 00:00:00 [facility] HPV9 2020-05-10 Completed [facility] 00:00:00 [facility] HPV9 2020-05-10 Completed [facility] 00:00:00 [facility] HPV9 2020-05-10 Completed [facility] 00:00:00 [facility] HPV9 2020-05-10 Completed [facility] 00:00:00 [facility] HPV9 2020-05-10 Completed [facility] 00:00:00 [facility] HPV9 2020-05-10 Completed [facility] 00:00:00 [facility] HPV9 2020-05-10 Completed [facility] 00:00:00 [facility] HPV9 2020-05-10 Completed [facility] 00:00:00 [facility] HPV9 2020-05-10 Completed [facility] 00:00:00 [facility] HPV9 2020-05-10 Completed [facility] 00:00:00 [facility] HPV9 2020-05-10 Completed [facility] 00:00:00 [facility] HPV9 2020-05-10 Completed [facility] 00:00:00 [facility] HPV9 2020-05-10 Completed [facility] 00:00:00 [facility] HPV9 2020-05-10 Completed [facility] 00[facility]00:00 [facility] HPV9 2020-05-10 Completed [facility] 00:00:00 [facility] HPV9 2020-05-10 Completed [facility] 00:00:00 [facility] HPV9 2020-04-11 Completed [facility] 00:00:00 [facility] HPV9 2020-04-11 Completed [facility] 00:00:00 [facility] HPV9 2020-04-11 Completed [facility] 00:00:00 [facility] HPV9 2020-04-11 Completed [facility] 00:00:00 [facility] HPV9 2020-04-11 Completed [facility] 00:00:00 [facility] HPV9 2020-04-11 Completed [facility] 00:00:00 [facility] HPV9 2020-04-11 Completed [facility] 00:00:00 [facility] HPV9 2020-04-11 Completed [facility] 00:00:00 [facility] HPV9 2020-04-11 Completed [facility] 00:00:00 [facility] HPV9 2020-04-11 Completed [facility] 00:00:00 [facility] HPV9 2020-04-11 Completed [facility] 00:00:00 [facility] HPV9 2020-04-11 Completed [facility] 00:00:00 [facility] HPV9 2020-04-11 Completed [facility] 00:00:00 [facility] HPV9 2020-04-11 Completed [facility] 00:00:00 [facility] HPV9 2020-04-11 Completed [facility] 00:00:00 [facility] HPV9 2020-04-11 Completed [facility] 00:00:00 [facility] HPV9 2020-04-11 Completed [facility] 00:00:00 [facility] HPV9 2020-04-11 Completed [facility] 00:00:00 [facility] HPV9 2020-04-11 Completed [facility] 00:00:00 [facility] HPV9 2020-04-11 Completed [facility] 00:00:00 [facility] HPV9 2020-04-11 Completed [facility] 00:00:00 [facility] HPV9 2020-04-11 Completed [facility] 00:00:00 [facility] HPV9 2020-04-11 Completed [facility] 00:00:00 [facility] HPV9 2020-04-11 Completed [facility] 00:00:00 [facility] HPV9 2020-04-11 Completed [facility] 00:00:00 [facility] HPV9 2020-04-11 Completed [facility] 00:00:00 [facility] HPV9 2020-04-11 Completed [facility] 00:00:00 [facility] HPV9 2020-04-11 Completed [facility] 00:00:00 [facility] HPV9 2020-04-11 Completed [facility] 00:00:00 [facility] HPV9 2020-04-11 Completed [facility] 00:00:00 [facility] HPV9 2020-04-11 Completed [facility] 00:00:00 [facility] HPV9 2020-04-11 Completed [facility] 00:00:00 [facility] HPV9 2020-04-11 Completed [facility] 00:00:00 [facility] HPV9 2020-04-11 Completed [facility] 00:00:00 [facility] HPV9 2020-04-11 Completed [facility] 00:00:00 [facility] HPV9 2020-04-11 Completed [facility] 00:00:00 [facility] HPV9 2020-04-11 Completed [facility] 00:00:00 [facility] HPV9 2020-04-11 Completed [facility] 00:00:00 [facility] HPV9 2020-04-11 Completed [facility] 00:00:00 [facility] HPV9 2020-04-11 Completed [facility] 00:00:00 [facility] HPV9 2020-04-11 Completed [facility] 00:00:00 [facility] HPV9 2020-04-11 Completed [facility] 00:00:00 [facility] HPV9 2020-04-11 Completed [facility] 00:00:00 [facility] HPV9 2020-04-11 Completed [facility] 00:00:00 [facility] HPV9 2020-04-11 Completed [facility] 00:00:00 [facility] HPV9 2020-04-11 Completed [facility] 00:00:00 [facility] HPV9 2020-04-11 Completed [facility] 00:00:00 [facility] HPV9 2020-04-11 Completed [facility] 00:00:00 [facility] HPV9 2020-04-11 Completed [facility] 00:00:00 [facility] HPV9 2020-04-11 Completed [facility] 00:00:00 [facility] HPV9 2020-04-11 Completed [facility] 00:00:00 [facility] HPV9 2020-04-11 Completed [facility] 00:00:00 [facility] HPV9 2020-04-11 Completed [facility] 00:00:00 [facility] HPV9 2020-04-11 Completed [facility] 00:00:00 [facility] HPV9 2020-04-11 Completed [facility] 00:00:00 [facility] HPV9 2020-04-11 Completed [facility] 00:00:00 [facility] HPV9 2020-04-11 Completed [facility] 00:00:00 [facility] HPV9 2020-04-11 Completed [facility] 00:00:00 [facility] HPV9 2020-04-11 Completed [facility] 00:00:00 [facility] HPV9 2020-04-11 Completed [facility] 00:00:00 [facility] HPV9 2020-04-11 Completed [facility] 00:00:00 [facility] HPV9 2020-04-11 Completed [facility] 00:00:00 [facility] HPV9 2020-04-11 Completed [facility] 00:00:00 [facility] HPV9 2020-04-11 Completed [facility] 00:00:00 [facility] HPV9 2020-04-11 Completed [facility] 00:00:00 [facility] HPV9 2020-04-11 Completed [facility] 00:00:00 [facility] HPV9 2020-04-11 Completed [facility] 00:00:00 [facility] HPV9 2020-04-11 Completed [facility] 00:00:00 [facility] HPV9 2020-04-11 Completed [facility] 00:00:00 [facility] HPV9 2020-04-11 Completed [facility] 00:00:00 [facility] HPV9 2020-04-11 Completed [facility] 00:00:00 [facility] HPV9 2020-04-11 Completed [facility] 00:00:00 [facility] HPV9 2020-04-11 Completed [facility] 00:00:00 [facility] HPV9 2020-04-11 Completed [facility] 00:00:00 [facility] HPV9 2020-04-11 Completed [facility] 00:00:00 [facility] HPV9 2020-04-11 Completed [facility] 00:00:00 [facility] HPV9 2020-04-11 Completed [facility] 00:00:00 [facility] HPV9 2020-04-11 Completed [facility] 00:00:00 [facility] HPV9 2020-04-11 Completed [facility] 00:00:00 [facility] HPV9 2020-04-11 Completed [facility] 00:00:00 [facility] HPV9 2020-04-11 Completed [facility] 00:00:00 [facility] HPV9 2020-04-11 Completed [facility] 00:00:00 [facility] HPV9 2020-04-11 Completed [facility] 00:00:00 [facility] HPV9 2020-04-11 Completed [facility] 00:00:00 [facility] HPV9 2020-04-11 Completed [facility] 00:00:00 [facility] HPV9 2020-04-11 Completed [facility] 00:00:00 [facility] HPV9 2020-04-11 Completed [facility] 00:00:00 [facility] HPV9 2020-04-11 Completed [facility] 00:00:00 [facility] HPV9 2020-04-11 Completed [facility] 00:00:00 [facility] HPV9 2020-04-11 Completed [facility] 00:00:00 [facility] HPV9 2020-04-11 Completed [facility] 00:00:00 [facility] HPV9 2020-04-11 Completed [facility] 00:00:00 [facility] HPV9 2020-04-11 Completed [facility] 00:00:00 [facility] HPV9 2020-04-11 Completed [facility] 00:00:00 [facility] HPV9 2020-04-11 Completed [facility] 00:00:00 [facility] HPV9 2020-04-11 Completed [facility] 00:00:00 [facility] HPV9 2020-04-11 Completed [facility] 00:00:00 [facility] HPV9 2020-04-11 Completed [facility] 00:00:00 [facility] HPV9 2020-04-11 Completed [facility] 00:00:00 [facility] HPV9 2020-04-11 Completed [facility] 00:00:00 [facility] HPV9 2020-04-11 Completed [facility] 00[facility]00:00 [facility] HPV9 2020-04-11 Completed [facility] 00:00:00 [facility] HPV9 2020-04-11 Completed [facility] 00:00:00 [facility] HPV9 2020-04-11 Completed [facility] 00:00:00 [facility] HPV9 2020-04-11 Completed [facility] 00:00:00 [facility] HPV9 2020-04-11 Completed [facility] 00:00:00 [facility] Influenza Virus 2020-01-26 Completed [facility] .5 mL 00:00:00 [facility] [place] [facility] Influenza Virus 2020-01-26 Completed [facility] .5 mL 00:00:00 [facility] [place] [facility] Influenza Virus 2020-01-26 Completed [facility] .5 mL 00:00:00 [facility] [place] [facility] Influenza Virus 2020-01-26 Completed [facility] .5 mL 00:00:00 [facility] [place] [facility] Influenza Virus 2020-01-26 Completed [facility] .5 mL 00:00:00 [facility] [place] [facility] Influenza Virus 2020-01-26 Completed [facility] .5 mL 00:00:00 [facility] [place] [facility] Influenza Virus 2020-01-26 Completed [facility] .5 mL 00:00:00 [facility] [place] [facility] Influenza Virus 2020-01-26 Completed [facility] .5 mL 00:00:00 [facility] [place] [facility] Influenza Virus 2020-01-26 Completed [facility] .5 mL 00:00:00 [facility] [place] [facility] Influenza Virus 2020-01-26 Completed [facility]5 mL 00:00:00 [facility] [place] [facility] Influenza Virus 2020-01-26 Completed [facility]5 mL 00:00:00 [facility] [place] [facility] Influenza Virus 2020-01-26 Completed [facility]5 mL 00:00:00 [facility] [place] [facility] Influenza Virus 2020-01-26 Completed [facility]5 mL 00:00:00 [facility] [place] [facility] Influenza Virus 2020-01-26 Completed [facility]5 mL 00:00:00 [facility] [place] [facility] Influenza Virus 2020-01-26 Completed [facility]5 mL 00:00:00 [facility] [place] [facility] Influenza Virus 2020-01-26 Completed [facility]5 mL 00:00:00 [facility] [place] [facility] Influenza Virus 2020-01-26 Completed [facility] .5 mL 00:00:00 [facility] [place] [facility] Influenza Virus 2020-01-26 Completed [facility]5 mL 00:00:00 [facility] [place] [facility] Influenza Virus 2020-01-26 Completed [facility]5 mL 00:00:00 [facility] [place] [facility] Influenza Virus 2020-01-26 Completed [facility] .5 mL 00:00:00 [facility] [place] [facility] Influenza Virus 2020-01-26 Completed [facility] .5 mL 00:00:00 [facility] [place] [facility] Influenza Virus 2020-01-26 Completed [facility]5 mL 00:00:00 [facility] [place] [facility] Influenza Virus 2020-01-26 Completed [facility]5 mL 00:00:00 [facility] [place] [facility] Influenza Virus 2020-01-26 Completed [facility]5 mL 00:00:00 [facility] [place] [facility] Influenza Virus 2020-01-26 Completed [facility]5 mL 00:00:00 [facility] [place] [facility] Influenza Virus 2020-01-26 Completed [facility] .5 mL 00:00:00 [facility] [place] [facility] Influenza Virus 2020-01-26 Completed [facility]5 mL 00:00:00 [facility] [place] [facility] Influenza Virus 2020-01-26 Completed [facility] .5 mL 00:00:00 [facility] [place] [facility] Influenza Virus 2020-01-26 Completed [facility] .5 mL 00:00:00 [facility] [place] [facility] Influenza Virus 2020-01-26 Completed [facility]5 mL 00:00:00 [facility] [place] [facility] Influenza Virus 2020-01-26 Completed [facility] .5 mL 00:00:00 [facility] [place] [facility] Influenza Virus 2020-01-26 Completed [facility]5 mL 00:00:00 [facility] [place] [facility] Influenza Virus 2020-01-26 Completed [facility] .5 mL 00:00:00 [facility] [place] [facility] Influenza Virus 2020-01-26 Completed [facility]5 mL 00:00:00 [facility] [place] [facility] Influenza Virus 2020-01-26 Completed [facility]5 mL 00:00:00 [facility] [place] [facility] Influenza Virus 2020-01-26 Completed [facility]5 mL 00:00:00 [facility] [place] [facility] Influenza Virus 2020-01-26 Completed [facility]5 mL 00:00:00 [facility] [place] [facility] Influenza Virus 2020-01-26 Completed [facility]5 mL 00:00:00 [facility] [place] [facility] Influenza Virus 2020-01-26 Completed [facility]5 mL 00:00:00 [facility] [place] [facility] Influenza Virus 2020-01-26 Completed [facility]5 mL 00:00:00 [facility] [place] [facility] Influenza Virus 2020-01-26 Completed [facility]5 mL 00:00:00 [facility] [place] [facility] Influenza Virus 2020-01-26 Completed [facility]5 mL 00:00:00 [facility] [place] [facility] Influenza Virus 2020-01-26 Completed [facility]5 mL 00:00:00 [facility] [place] [facility] Influenza Virus 2020-01-26 Completed [facility]5 mL 00:00:00 [facility] [place] [facility] Influenza Virus 2020-01-26 Completed [facility]5 mL 00:00:00 [facility] [place] [facility] Influenza Virus 2020-01-26 Completed [facility]5 mL 00:00:00 [facility] [place] [facility] Influenza Virus 2020-01-26 Completed [facility]5 mL 00:00:00 [facility] [place] [facility] Influenza Virus 2020-01-26 Completed [facility]5 mL 00:00:00 [facility] [place] [facility] Influenza Virus 2020-01-26 Completed [facility]5 mL 00:00:00 [facility] [place] [facility] Influenza Virus 2020-01-26 Completed [facility]5 mL 00:00:00 [facility] [place] [facility] Influenza Virus 2020-01-26 Completed [facility]5 mL 00:00:00 [facility] Influenza Virus 2020-01-26 Completed [facility]5 mL 00:00:00 [facility] [place] [facility] Influenza Virus 2020-01-26 Completed [facility] .5 mL 00:00:00 [facility] Influenza Virus 2020-01-26 Completed [facility]5 mL 00:00:00 [facility] Influenza Virus 2020-01-26 Completed [facility]5 mL 00:00:00 [facility] [place] [facility] Influenza Virus 2020-01-26 Completed [facility]5 mL 00:00:00 [facility] Influenza Virus 2020-01-26 Completed [facility]5 mL 00:00:00 [facility] Influenza Virus 2020-01-26 Completed [facility]5 mL 00:00:00 [facility] [place] [facility] Influenza Virus 2020-01-26 Completed [facility]5 mL 00:00:00 [facility] Influenza Virus 2020-01-26 Completed [facility]5 mL 00:00:00 [facility] Influenza Virus 2020-01-26 Completed [facility] 00:00:00 [facility] Influenza Virus 2020-01-26 Completed [facility] 00:00:00 [facility] Influenza Virus 2020-01-26 Completed [facility]5 [facility] 00:00:00 [facility] Influenza Virus 2020-01-26 Completed [facility]5 mL 00:00:00 [facility] Influenza Virus 2020-01-26 Completed [facility] .5 mL 00:00:00 [facility] Influenza Virus 2020-01-26 Completed [facility] .5 mL 00:00:00 [facility] Influenza Virus 2020-01-26 Completed [facility] .5 mL 00:00:00 [facility] Influenza Virus 2020-01-26 Completed [facility] .5 mL 00:00:00 [facility] Influenza Virus 2020-01-26 Completed [facility] .5 mL 00:00:00 [facility] Influenza Virus 2020-01-26 Completed [facility] .5 mL 00:00:00 [facility] Influenza Virus 2020-01-26 Completed [facility] .5 mL 00:00:00 [facility] Influenza Virus 2020-01-26 Completed [facility] .5 mL 00:00:00 [facility] Influenza Virus 2020-01-26 Completed [facility] .5 mL 00:00:00 [facility] Influenza Virus 2020-01-26 Completed [facility] .5 mL 00:00:00 [facility] Influenza Virus 2020-01-26 Completed [facility] .5 mL 00:00:00 [facility] Influenza Virus 2020-01-26 Completed [facility] .5 mL 00:00:00 [facility] Influenza Virus 2020-01-26 Completed [facility] .5 mL 00:00:00 [facility] Influenza Virus 2020-01-26 Completed [facility] .5 mL 00:00:00 [facility] Influenza Virus 2020-01-26 Completed [facility] .5 mL 00:00:00 [facility] Influenza Virus 2020-01-26 Completed [facility] .5 mL 00:00:00 [facility] Influenza Virus 2020-01-26 Completed [facility] .5 mL 00:00:00 [facility] Influenza Virus 2020-01-26 Completed [facility] .5 mL 00:00:00 [facility] Influenza Virus 2020-01-26 Completed [facility] .5 mL 00:00:00 [facility] Influenza Virus 2020-01-26 Completed [facility] .5 mL 00:00:00 [facility] Influenza Virus 2020-01-26 Completed [facility] .5 mL 00:00:00 [facility] Influenza Virus 2020-01-26 Completed [facility] .5 mL 00:00:00 [facility] Influenza Virus 2020-01-26 Completed [facility] .5 mL 00:00:00 [facility] Influenza Virus 2020-01-26 Completed [facility] .5 mL 00:00:00 [facility] Influenza Virus 2020-01-26 Completed [facility] .5 mL 00:00:00 [facility] Influenza Virus 2020-01-26 Completed [facility] .5 mL 00:00:00 [facility] Influenza Virus 2020-01-26 Completed [facility] .5 mL 00:00:00 [facility] Influenza Virus 2020-01-26 Completed [facility] .5 mL 00:00:00 [facility] Influenza Virus 2020-01-26 Completed [facility] .5 mL 00:00:00 [facility] Influenza Virus 2020-01-26 Completed [facility] .5 mL 00:00:00 [facility] Influenza Virus 2020-01-26 Completed [facility] .5 mL 00:00:00 [facility] Influenza Virus 2020-01-26 Completed [facility] .5 mL 00:00:00 [facility] Influenza Virus 2020-01-26 Completed [facility] .5 mL 00:00:00 [facility] Influenza Virus 2020-01-26 Completed [facility] .5 mL 00:00:00 [facility] Influenza Virus 2020-01-26 Completed [facility] .5 mL 00:00:00 [facility] Influenza Virus 2020-01-26 Completed [facility] .5 mL 00:00:00 [facility] Influenza Virus 2020-01-26 Completed [facility] .5 mL 00:00:00 [facility] Influenza Virus 2020-01-26 Completed [facility] .5 mL 00:00:00 [facility] Influenza Virus 2020-01-26 Completed [facility] .5 mL 00:00:00 [facility] Influenza Virus 2020-01-26 Completed [facility] .5 mL 00:00:00 [facility] Influenza Virus 2020-01-26 Completed [facility] .5 mL 00:00:00 [facility] Influenza Virus 2020-01-26 Completed [facility] .5 mL 00:00:00 [facility] (FLUZONE/FLULAVAL/FL UARIX) TDAP (ADACEL) 2019-05-20 Completed [facility] VACCINE 00:00:00 [facility] TDAP (ADACEL) 2019-05-20 Completed [facility] VACCINE 00:00:00 [facility] TDAP (ADACEL) 2019-05-20 Completed [facility] VACCINE 00:00:00 [facility] TDAP (ADACEL) 2019-05-20 Completed [facility] VACCINE 00:00:00 [facility] TDAP (ADACEL) 2019-05-20 Completed [facility] VACCINE 00:00:00 [facility] TDAP (ADACEL) 2019-05-20 Completed [facility] VACCINE 00:00:00 [facility] TDAP (ADACEL) 2019-05-20 Completed [facility] VACCINE 00:00:00 [facility] TDAP (ADACEL) 2019-05-20 Completed [facility] VACCINE 00:00:00 [facility] TDAP (ADACEL) 2019-05-20 Completed [facility] VACCINE 00:00:00 [facility] TDAP (ADACEL) 2019-05-20 Completed [facility] VACCINE 00:00:00 [facility] TDAP (ADACEL) 2019-05-20 Completed [facility] VACCINE 00:00:00 [facility] TDAP (ADACEL) 2019-05-20 Completed [facility] VACCINE 00:00:00 [facility] TDAP (ADACEL) 2019-05-20 Completed [facility] VACCINE 00:00:00 [facility] TDAP (ADACEL) 2019-05-20 Completed [facility] VACCINE 00:00:00 [facility] TDAP (ADACEL) 2019-05-20 Completed [facility] VACCINE 00:00:00 [facility] TDAP (ADACEL) 2019-05-20 Completed [facility] VACCINE 00:00:00 [facility] TDAP (ADACEL) 2019-05-20 Completed [facility] VACCINE 00:00:00 [facility] TDAP (ADACEL) 2019-05-20 Completed [facility] VACCINE 00:00:00 [facility] TDAP (ADACEL) 2019-05-20 Completed [facility] VACCINE 00:00:00 [facility] TDAP (ADACEL) 2019-05-20 Completed [facility] VACCINE 00:00:00 [facility] TDAP (ADACEL) 2019-05-20 Completed [facility] VACCINE 00:00:00 [facility] TDAP (ADACEL) 2019-05-20 Completed [facility] VACCINE 00:00:00 [facility] TDAP (ADACEL) 2019-05-20 Completed [facility] VACCINE 00:00:00 [facility] TDAP (ADACEL) 2019-05-20 Completed [facility] VACCINE 00:00:00 [facility] TDAP (ADACEL) 2019-05-20 Completed [facility] VACCINE 00:00:00 [facility] TDAP (ADACEL) 2019-05-20 Completed [facility] VACCINE 00:00:00 [facility] TDAP (ADACEL) 2019-05-20 Completed [facility] VACCINE 00:00:00 [facility] TDAP (ADACEL) 2019-05-20 Completed [facility] VACCINE 00:00:00 [facility] TDAP (ADACEL) 2019-05-20 Completed [facility] VACCINE 00:00:00 [facility] TDAP (ADACEL) 2019-05-20 Completed [facility] VACCINE 00:00:00 [facility] TDAP (ADACEL) 2019-05-20 Completed [facility] VACCINE 00:00:00 [facility] TDAP (ADACEL) 2019-05-20 Completed [facility] VACCINE 00:00:00 [facility] TDAP (ADACEL) 2019-05-20 Completed [facility] VACCINE 00:00:00 [facility] TDAP (ADACEL) 2019-05-20 Completed [facility] VACCINE 00:00:00 [facility] TDAP (ADACEL) 2019-05-20 Completed [facility] VACCINE 00:00:00 [facility] TDAP (ADACEL) 2019-05-20 Completed [facility] VACCINE 00:00:00 [facility] TDAP (ADACEL) 2019-05-20 Completed [facility] VACCINE 00:00:00 [facility] TDAP (ADACEL) 2019-05-20 Completed [facility] VACCINE 00:00:00 [facility] TDAP (ADACEL) 2019-05-20 Completed [facility] VACCINE 00:00:00 [facility] TDAP (ADACEL) 2019-05-20 Completed [facility] VACCINE 00:00:00 [facility] TDAP (ADACEL) 2019-05-20 Completed [facility] VACCINE 00:00:00 [facility] TDAP (ADACEL) 2019-05-20 Completed [facility] VACCINE 00:00:00 [facility] TDAP (ADACEL) 2019-05-20 Completed [facility] VACCINE 00:00:00 [facility] TDAP (ADACEL) 2019-05-20 Completed [facility] VACCINE 00:00:00 [facility] TDAP (ADACEL) 2019-05-20 Completed [facility] VACCINE 00:00:00 [facility] TDAP (ADACEL) 2019-05-20 Completed [facility] VACCINE 00:00:00 [facility] TDAP (ADACEL) 2019-05-20 Completed [facility] VACCINE 00:00:00 [facility] TDAP (ADACEL) 2019-05-20 Completed [facility] VACCINE 00:00:00 [facility] TDAP (ADACEL) 2019-05-20 Completed [facility] VACCINE 00:00:00 [facility] TDAP (ADACEL) 2019-05-20 Completed [facility] VACCINE 00:00:00 [facility] TDAP (ADACEL) 2019-05-20 Completed [facility] VACCINE 00:00:00 [facility] TDAP (ADACEL) 2019-05-20 Completed [facility] VACCINE 00:00:00 [facility] TDAP (ADACEL) 2019-05-20 Completed [facility] VACCINE 00:00:00 [facility] TDAP (ADACEL) 2019-05-20 Completed [facility] VACCINE 00:00:00 [facility] TDAP (ADACEL) 2019-05-20 Completed [facility] VACCINE 00:00:00 [facility] TDAP (ADACEL) 2019-05-20 Completed [facility] VACCINE 00:00:00 [facility] TDAP (ADACEL) 2019-05-20 Completed [facility] VACCINE 00:00:00 [facility] TDAP (ADACEL) 2019-05-20 Completed [facility] VACCINE 00:00:00 [facility] TDAP (ADACEL) 2019-05-20 Completed [facility] VACCINE 00:00:00 [facility] TDAP (ADACEL) 2019-05-20 Completed [facility] VACCINE 00:00:00 [facility] TDAP (ADACEL) 2019-05-20 Completed [facility] VACCINE 00:00:00 [facility] TDAP (ADACEL) 2019-05-20 Completed [facility] VACCINE 00:00:00 [facility] TDAP (ADACEL) 2019-05-20 Completed [facility] VACCINE 00:00:00 [facility] TDAP (ADACEL) 2019-05-20 Completed [facility] VACCINE 00:00:00 [facility] TDAP (ADACEL) 2019-05-20 Completed [facility] VACCINE 00:00:00 [facility] TDAP (ADACEL) 2019-05-20 Completed [facility] VACCINE 00:00:00 [facility] TDAP (ADACEL) 2019-05-20 Completed [facility] VACCINE 00:00:00 [facility] TDAP (ADACEL) 2019-05-20 Completed [facility] VACCINE 00:00:00 [facility] TDAP (ADACEL) 2019-05-20 Completed [facility] VACCINE 00:00:00 [facility] TDAP (ADACEL) 2019-05-20 Completed [facility] VACCINE 00:00:00 [facility] TDAP (ADACEL) 2019-05-20 Completed [facility] VACCINE 00:00:00 [facility] TDAP (ADACEL) 2019-05-20 Completed [facility] VACCINE 00:00:00 [facility] TDAP (ADACEL) 2019-05-20 Completed [facility] VACCINE 00:00:00 [facility] TDAP (ADACEL) 2019-05-20 Completed [facility] VACCINE 00:00:00 [facility] TDAP (ADACEL) 2019-05-20 Completed [facility] VACCINE 00:00:00 [facility] TDAP (ADACEL) 2019-05-20 Completed [facility] VACCINE 00:00:00 [facility] TDAP (ADACEL) 2019-05-20 Completed [facility] VACCINE 00:00:00 [facility] TDAP (ADACEL) 2019-05-20 Completed [facility] VACCINE 00:00:00 [facility] TDAP (ADACEL) 2019-05-20 Completed [facility] VACCINE 00:00:00 [facility] TDAP (ADACEL) 2019-05-20 Completed [facility] VACCINE 00:00:00 [facility] TDAP (ADACEL) 2019-05-20 Completed [facility] VACCINE 00:00:00 [facility] TDAP (ADACEL) 2019-05-20 Completed [facility] VACCINE 00:00:00 [facility] TDAP (ADACEL) 2019-05-20 Completed [facility] VACCINE 00:00:00 [facility] TDAP (ADACEL) 2019-05-20 Completed [facility] VACCINE 00:00:00 [facility] TDAP (ADACEL) 2019-05-20 Completed [facility] VACCINE 00:00:00 [facility] TDAP (ADACEL) 2019-05-20 Completed [facility] VACCINE 00:00:00 [facility] TDAP (ADACEL) 2019-05-20 Completed [facility] VACCINE 00:00:00 [facility] TDAP (ADACEL) 2019-05-20 Completed [facility] VACCINE 00:00:00 [facility] TDAP (ADACEL) 2019-05-20 Completed [facility] VACCINE 00:00:00 [facility] TDAP (ADACEL) 2019-05-20 Completed [facility] VACCINE 00:00:00 [facility] TDAP (ADACEL) 2019-05-20 Completed [facility] VACCINE 00:00:00 [facility] TDAP (ADACEL) 2019-05-20 Completed [facility] VACCINE 00:00:00 [facility] TDAP (ADACEL) 2019-05-20 Completed [facility] VACCINE 00:00:00 [facility] TDAP (ADACEL) 2019-05-20 Completed [facility] VACCINE 00:00:00 [facility] TDAP (ADACEL) 2019-05-20 Completed [facility] VACCINE 00:00:00 [facility] TDAP (ADACEL) 2019-05-20 Completed [facility] VACCINE 00:00:00 [facility] TDAP (ADACEL) 2019-05-20 Completed [facility] VACCINE 00:00:00 [facility] TDAP (ADACEL) 2019-05-20 Completed [facility] VACCINE 00:00:00 [facility] TDAP (ADACEL) 2019-05-20 Completed [facility] VACCINE 00:00:00 [facility] TDAP (ADACEL) 2019-05-20 Completed [facility] VACCINE 00:00:00 [facility] TDAP (ADACEL) 2019-05-20 Completed [facility] VACCINE 00:00:00 [facility] TDAP (ADACEL) 2019-05-20 Completed [facility] VACCINE 00:00:00 [facility] TDAP (ADACEL) 2019-05-20 Completed [facility] VACCINE 00:00:00 [facility] TDAP (ADACEL) 2019-05-20 Completed [facility] VACCINE 00:00:00 [facility] TDAP (ADACEL) 2019-05-20 Completed [facility] VACCINE 00:00:00 [facility] TDAP (ADACEL) 2019-05-20 Completed [facility] VACCINE 00:00:00 [facility] Influenza Virus 2019-01-07 Completed [facility] .5 mL 00:00:00 [facility] Influenza Virus 2019-01-07 Completed [facility] .5 mL 00:00:00 [facility] Influenza Virus 2019-01-07 Completed [facility] .5 mL 00:00:00 [facility] Influenza Virus 2019-01-07 Completed [facility] .5 mL 00:00:00 [facility] Influenza Virus 2019-01-07 Completed [facility] .5 mL 00:00:00 [facility] Influenza Virus 2019-01-07 Completed [facility] .5 mL 00:00:00 [facility] Influenza Virus 2019-01-07 Completed [facility] .5 mL 00:00:00 [facility] Influenza Virus 2019-01-07 Completed [facility] .5 mL 00:00:00 [facility] Influenza Virus 2019-01-07 Completed [facility] .5 mL 00:00:00 [facility] Influenza Virus 2019-01-07 Completed [facility] .5 mL 00:00:00 [facility] Influenza Virus 2019-01-07 Completed [facility] .5 mL 00:00:00 [facility] Influenza Virus 2019-01-07 Completed [facility] .5 mL 00:00:00 [facility] Influenza Virus 2019-01-07 Completed [facility] .5 mL 00:00:00 [facility] Influenza Virus 2019-01-07 Completed [facility] .5 mL 00:00:00 [facility] Influenza Virus 2019-01-07 Completed [facility] .5 mL 00:00:00 [facility] Influenza Virus 2019-01-07 Completed [facility] .5 mL 00:00:00 [facility] Influenza Virus 2019-01-07 Completed [facility] .5 mL 00:00:00 [facility] Influenza Virus 2019-01-07 Completed [facility] .5 mL 00:00:00 [facility] Influenza Virus 2019-01-07 Completed [facility] .5 mL 00:00:00 [facility] Influenza Virus 2019-01-07 Completed [facility] .5 mL 00:00:00 [facility] Influenza Virus 2019-01-07 Completed [facility] .5 mL 00:00:00 [facility] Influenza Virus 2019-01-07 Completed [facility] .5 mL 00:00:00 [facility] Influenza Virus 2019-01-07 Completed [facility] .5 mL 00:00:00 [facility] Influenza Virus 2019-01-07 Completed [facility] .5 mL 00:00:00 [facility] Influenza Virus 2019-01-07 Completed [facility] .5 mL 00:00:00 [facility] Influenza Virus 2019-01-07 Completed [facility] .5 mL 00:00:00 [facility] Influenza Virus 2019-01-07 Completed [facility] .5 mL 00:00:00 [facility] Influenza Virus 2019-01-07 Completed [facility] .5 mL 00:00:00 [facility] Influenza Virus 2019-01-07 Completed [facility] .5 mL 00:00:00 [facility] Influenza Virus 2019-01-07 Completed [facility] .5 mL 00:00:00 [facility] Influenza Virus 2019-01-07 Completed [facility] .5 mL 00:00:00 [facility] Influenza Virus 2019-01-07 Completed [facility] .5 mL 00:00:00 [facility] Influenza Virus 2019-01-07 Completed [facility] .5 mL 00:00:00 [facility] Influenza Virus 2019-01-07 Completed [facility] .5 mL 00:00:00 [facility] Influenza Virus 2019-01-07 Completed [facility] .5 mL 00:00:00 [facility] Influenza Virus 2019-01-07 Completed [facility] .5 mL 00:00:00 [facility] Influenza Virus 2019-01-07 Completed [facility] .5 mL 00:00:00 [facility] Influenza Virus 2019-01-07 Completed [facility] .5 mL 00:00:00 [facility] Influenza Virus 2019-01-07 Completed [facility] .5 mL 00:00:00 [facility] Influenza Virus 2019-01-07 Completed [facility] .5 mL 00:00:00 [facility] Influenza Virus 2019-01-07 Completed [facility] .5 mL 00:00:00 [facility] Influenza Virus 2019-01-07 Completed [facility] .5 mL 00:00:00 [facility] Influenza Virus 2019-01-07 Completed [facility] .5 mL 00:00:00 [facility] Influenza Virus 2019-01-07 Completed [facility] .5 mL 00:00:00 [facility] Influenza Virus 2019-01-07 Completed [facility] .5 mL 00:00:00 [facility] Influenza Virus 2019-01-07 Completed [facility] .5 mL 00:00:00 [facility] Influenza Virus 2019-01-07 Completed [facility] .5 mL 00:00:00 [facility] Influenza Virus 2019-01-07 Completed [facility] .5 mL 00:00:00 [facility] Influenza Virus 2019-01-07 Completed [facility] .5 mL 00:00:00 [facility] Influenza Virus 2019-01-07 Completed [facility] .5 mL 00:00:00 [facility] Influenza Virus 2019-01-07 Completed [facility] .5 mL 00:00:00 [facility] Influenza Virus 2019-01-07 Completed [facility] .5 mL 00:00:00 [facility] Influenza Virus 2019-01-07 Completed [facility] .5 mL 00:00:00 [facility] Influenza Virus 2019-01-07 Completed [facility] .5 mL 00:00:00 [facility] Influenza Virus 2019-01-07 Completed [facility] .5 mL 00:00:00 [facility] Influenza Virus 2019-01-07 Completed [facility] .5 mL 00:00:00 [facility] Influenza Virus 2019-01-07 Completed [facility] .5 mL 00:00:00 [facility] Influenza Virus 2019-01-07 Completed [facility] .5 mL 00:00:00 [facility] Influenza Virus 2019-01-07 Completed [facility] .5 mL 00:00:00 [facility] Influenza Virus 2019-01-07 Completed [facility] .5 mL 00:00:00 [facility] Influenza Virus 2019-01-07 Completed [facility] .5 mL 00:00:00 [facility] Influenza Virus 2019-01-07 Completed [facility] .5 mL 00:00:00 [facility] Influenza Virus 2019-01-07 Completed [facility] .5 mL 00:00:00 [facility] Influenza Virus 2019-01-07 Completed [facility] .5 mL 00:00:00 [facility] Influenza Virus 2019-01-07 Completed [facility] .5 mL 00:00:00 [facility] Influenza Virus 2019-01-07 Completed [facility] .5 mL 00:00:00 [facility] Influenza Virus 2019-01-07 Completed [facility] .5 mL 00:00:00 [facility] Influenza Virus 2019-01-07 Completed [facility] .5 mL 00:00:00 [facility] Influenza Virus 2019-01-07 Completed [facility] .5 mL 00:00:00 [facility] Influenza Virus 2019-01-07 Completed [facility] .5 mL 00:00:00 [facility] Influenza Virus 2019-01-07 Completed [facility] .5 mL 00:00:00 [facility] Influenza Virus 2019-01-07 Completed [facility] .5 mL 00:00:00 [facility] Influenza Virus 2019-01-07 Completed [facility] .5 mL 00:00:00 [facility] Influenza Virus 2019-01-07 Completed [facility] .5 mL 00:00:00 [facility] Influenza Virus 2019-01-07 Completed [facility] .5 mL 00:00:00 [facility] Influenza Virus 2019-01-07 Completed [facility] .5 mL 00:00:00 [facility] Influenza Virus 2019-01-07 Completed [facility] .5 mL 00:00:00 [facility] Influenza Virus 2019-01-07 Completed [facility] .5 [facility] 00:00:00 [facility] Influenza Virus 2019-01-07 Completed [facility] .5 [facility] 00:00:00 [facility] Influenza Virus 2019-01-07 Completed [facility] .5 mL 00:00:00 [facility] Influenza Virus 2019-01-07 Completed [facility] .5 mL 00:00:00 [facility] Influenza Virus 2019-01-07 Completed [facility] .5 mL 00:00:00 [facility] Influenza Virus 2019-01-07 Completed [facility] .5 mL 00:00:00 [facility] Influenza Virus 2019-01-07 Completed [facility] .5 mL 00:00:00 [facility] Influenza Virus 2019-01-07 Completed [facility] .5 mL 00:00:00 [facility] Influenza Virus 2019-01-07 Completed [facility] .5 mL 00:00:00 [facility] Influenza Virus 2019-01-07 Completed [facility] .5 mL 00:00:00 [facility] Influenza Virus 2019-01-07 Completed [facility] .5 mL 00:00:00 [facility] Influenza Virus 2019-01-07 Completed [facility] .5 mL 00:00:00 [facility] Influenza Virus 2019-01-07 Completed [facility] .5 mL 00:00:00 [facility] Influenza Virus 2019-01-07 Completed [facility] .5 mL 00:00:00 [facility] Influenza Virus 2019-01-07 Completed [facility] .5 mL 00:00:00 [facility] Influenza Virus 2019-01-07 Completed [facility] .5 mL 00:00:00 [facility] Influenza Virus 2019-01-07 Completed [facility] .5 mL 00:00:00 [facility] Influenza Virus 2019-01-07 Completed [facility] .5 mL 00:00:00 [facility] Influenza Virus 2019-01-07 Completed [facility] .5 mL 00:00:00 [facility] Influenza Virus 2019-01-07 Completed [facility] .5 mL 00:00:00 [facility] Influenza Virus 2019-01-07 Completed [facility] .5 mL 00:00:00 [facility] Influenza Virus 2019-01-07 Completed [facility] .5 mL 00:00:00 [facility] Influenza Virus 2019-01-07 Completed [facility] .5 mL 00:00:00 [facility] Influenza Virus 2019-01-07 Completed [facility] .5 mL 00:00:00 [facility] Influenza Virus 2019-01-07 Completed [facility] .5 mL 00:00:00 [facility] Influenza Virus 2019-01-07 Completed [facility] .5 mL 00:00:00 [facility] Influenza Virus 2019-01-07 Completed [facility] .5 mL 00:00:00 [facility] Influenza Virus 2019-01-07 Completed [facility] .5 mL 00:00:00 [facility] Influenza Virus 2019-01-07 Completed [facility] .5 mL 00:00:00 [facility] 6+ [facility] (FLUZONE/FLULAVAL/FL UARIX) Hep B, Adol or Pedi 2010-09-14 Completed [facility] Dosage 00:00:00 [facility] Meningococcal 2010-09-14 Completed [facility] Polysaccharide 00:00:00 [facility] minal (groups A, C, Y and Branc h W-135) conjugate vaccine (MCV4P) TDAP 2010-09-14 Completed [facility] 00:00:00 [facility] Varicella 2010-09-14 Completed [facility] (varivax)(chicken 00:00:00 [facility] Hep B, Adol or Pedi 2010-09-14 Completed [facility] Dosage 00:00:00 [facility] Meningococcal 2010-09-14 Completed [facility] Polysaccharide 00:00:00 [facility] minal (groups A, C, Y and Branc h W-135) conjugate vaccine (MCV4P) TDAP 2010-09-14 Completed [facility] 00:00:00 [facility] Varicella 2010-09-14 Completed [facility] (varivax)(chicken 00:00:00 [facility] Hep B, Adol or Pedi 2010-09-14 Completed [facility] Dosage 00:00:00 [facility] Meningococcal 2010-09-14 Completed [facility] Polysaccharide 00:00:00 [facility] minal (groups A, C, Y and Branc h W-135) conjugate vaccine (MCV4P) TDAP 2010-09-14 Completed [facility] 00:00:00 [facility] Varicella 2010-09-14 Completed [facility] (varivax)(chicken 00:00:00 [facility] Hep B, Adol or Pedi 2010-09-14 Completed [facility] Dosage 00:00:00 [facility] Meningococcal 2010-09-14 Completed [facility] Polysaccharide 00:00:00 [facility] (groups A, C, Y and Branc h W-135) conjugate vaccine (MCV4P) TDAP 2010-09-14 Completed [facility] 00:00:00 [facility] Varicella 2010-09-14 Completed [facility] (varivax)(chicken 00:00:00 [facility] Hep B, Adol or Pedi 2010-09-14 Completed [facility] Dosage 00:00:00 [facility] Meningococcal 2010-09-14 Completed [facility] Polysaccharide 00:00:00 [facility] (groups A, C, Y and Branc h W-135) conjugate vaccine (MCV4P) TDAP 2010-09-14 Completed [facility] 00:00:00 [facility] Varicella 2010-09-14 Completed [facility] (varivax)(chicken 00:00:00 [facility] Hep B, Adol or Pedi 2010-09-14 Completed [facility] Dosage 00:00:00 [facility] Meningococcal 2010-09-14 Completed [facility] Polysaccharide 00:00:00 [facility] (groups A, C, Y and Branc h W-135) conjugate vaccine (MCV4P) TDAP 2010-09-14 Completed [facility] 00:00:00 [facility] Varicella 2010-09-14 Completed [facility] (varivax)(chicken 00:00:00 [facility] Hep B, Adol or Pedi 2010-09-14 Completed [facility] Dosage 00:00:00 [facility] Meningococcal 2010-09-14 Completed [facility] Polysaccharide 00:00:00 [facility] (groups A, C, Y and Branc h W-135) conjugate vaccine (MCV4P) TDAP 2010-09-14 Completed [facility] 00:00:00 [facility] Varicella 2010-09-14 Completed [facility] (varivax)(chicken 00:00:00 [facility] Hep B, Adol or Pedi 2010-09-14 Completed [facility] Dosage 00:00:00 [facility] Meningococcal 2010-09-14 Completed [facility] Polysaccharide 00:00:00 [facility] (groups A, C, Y and Branc h W-135) conjugate vaccine (MCV4P) TDAP 2010-09-14 Completed [facility] 00:00:00 [facility] Varicella 2010-09-14 Completed [facility] (varivax)(chicken 00:00:00 [facility] Hep B, Adol or Pedi 2010-09-14 Completed [facility] Dosage 00:00:00 [facility] Meningococcal 2010-09-14 Completed [facility] Polysaccharide 00:00:00 [facility] minal (groups A, C, Y and Branc h W-135) conjugate vaccine (MCV4P) TDAP 2010-09-14 Completed [facility] 00:00:00 [facility] Varicella 2010-09-14 Completed [facility] (varivax)(chicken 00:00:00 [facility] Hep B, Adol or Pedi 2010-09-14 Completed [facility] Dosage 00:00:00 [facility] Meningococcal 2010-09-14 Completed [facility] Polysaccharide 00:00:00 [facility] minal (groups A, C, Y and Branc h W-135) conjugate vaccine (MCV4P) TDAP 2010-09-14 Completed [facility] 00:00:00 [facility] Varicella 2010-09-14 Completed [facility] (varivax)(chicken 00:00:00 [facility] Hep B, Adol or Pedi 2010-09-14 Completed [facility] Dosage 00:00:00 [facility] Meningococcal 2010-09-14 Completed [facility] Polysaccharide 00:00:00 [facility] minal (groups A, C, Y and Branc h W-135) conjugate vaccine (MCV4P) TDAP 2010-09-14 Completed [facility] 00:00:00 [facility] Varicella 2010-09-14 Completed [facility] (varivax)(chicken 00:00:00 [facility] Hep B, Adol or Pedi 2010-09-14 Completed [facility] Dosage 00:00:00 [facility] Meningococcal 2010-09-14 Completed [facility] Polysaccharide 00:00:00 [facility] (groups A, C, Y and Branc h W-135) conjugate vaccine (MCV4P) TDAP 2010-09-14 Completed [facility] 00:00:00 [facility] Varicella 2010-09-14 Completed [facility] (varivax)(chicken 00:00:00 [facility] Hep B, Adol or Pedi 2010-09-14 Completed [facility] Dosage 00:00:00 [facility] Meningococcal 2010-09-14 Completed [facility] Polysaccharide 00:00:00 [facility] (groups A, C, Y and Branc h W-135) conjugate vaccine (MCV4P) TDAP 2010-09-14 Completed [facility] 00:00:00 [facility] Varicella 2010-09-14 Completed [facility] (varivax)(chicken 00:00:00 [facility] Hep B, Adol or Pedi 2010-09-14 Completed [facility] Dosage 00:00:00 [facility] Meningococcal 2010-09-14 Completed [facility] Polysaccharide 00:00:00 [facility] (groups A, C, Y and Branc h W-135) conjugate vaccine (MCV4P) TDAP 2010-09-14 Completed [facility] 00:00:00 [facility] Varicella 2010-09-14 Completed [facility] (varivax)(chicken 00:00:00 [facility] Hep B, Adol or Pedi 2010-09-14 Completed [facility] Dosage 00:00:00 [facility] Meningococcal 2010-09-14 Completed [facility] Polysaccharide 00:00:00 [facility] (groups A, C, Y and Branc h W-135) conjugate vaccine (MCV4P) TDAP 2010-09-14 Completed [facility] 00:00:00 [facility] Varicella 2010-09-14 Completed [facility] (varivax)(chicken 00:00:00 [facility] Hep B, Adol or Pedi 2010-09-14 Completed [facility] Dosage 00:00:00 [facility] Meningococcal 2010-09-14 Completed [facility] Polysaccharide 00:00:00 [facility] (groups A, C, Y and Branc h W-135) conjugate vaccine (MCV4P) TDAP 2010-09-14 Completed [facility] 00:00:00 [facility] Varicella 2010-09-14 Completed [facility] (varivax)(chicken 00:00:00 [facility] Hep B, Adol or Pedi 2010-09-14 Completed [facility] Dosage 00:00:00 [facility] Meningococcal 2010-09-14 Completed [facility] Polysaccharide 00:00:00 [facility] (groups A, C, Y and Branc h W-135) conjugate vaccine (MCV4P) TDAP 2010-09-14 Completed [facility] 00:00:00 [facility] Varicella 2010-09-14 Completed [facility] (varivax)(chicken 00:00:00 [facility] Hep B, Adol or Pedi 2010-09-14 Completed [facility] Dosage 00:00:00 [facility] Meningococcal 2010-09-14 Completed [facility] Polysaccharide 00:00:00 [facility] (groups A, C, Y and Branc h W-135) conjugate vaccine (MCV4P) TDAP 2010-09-14 Completed [facility] 00:00:00 [facility] Varicella 2010-09-14 Completed [facility] (varivax)(chicken 00:00:00 [facility] Hep B, Adol or Pedi 2010-09-14 Completed [facility] Dosage 00:00:00 [facility] Meningococcal 2010-09-14 Completed [facility] Polysaccharide 00:00:00 [facility] (groups A, C, Y and Branc h W-135) conjugate vaccine (MCV4P) TDAP 2010-09-14 Completed [facility] 00:00:00 [facility] Varicella 2010-09-14 Completed [facility] (varivax)(chicken 00:00:00 [facility] Hep B, Adol or Pedi 2010-09-14 Completed [facility] Dosage 00:00:00 [facility] Meningococcal 2010-09-14 Completed [facility] Polysaccharide 00:00:00 [facility] (groups A, C, Y and Branc h W-135) conjugate vaccine (MCV4P) TDAP 2010-09-14 Completed [facility] 00:00:00 [facility] Varicella 2010-09-14 Completed [facility] (varivax)(chicken 00:00:00 [facility] Hep B, Adol or Pedi 2010-09-14 Completed [facility] of Dosage 00:00:00 [facility] Meningococcal 2010-09-14 Completed [facility] Polysaccharide 00:00:00 [facility] (groups A, C, Y and Branc h W-135) conjugate vaccine (MCV4P) TDAP 2010-09-14 Completed [facility] 00:00:00 [facility] Varicella 2010-09-14 Completed [facility] (varivax)(chicken 00:00:00 [facility] Hep B, Adol or Pedi 2010-09-14 Completed [facility] of Dosage 00:00:00 [facility] Meningococcal 2010-09-14 Completed [facility] Polysaccharide 00:00:00 [facility] minal (groups A, C, Y and Branc h W-135) conjugate vaccine (MCV4P) TDAP 2010-09-14 Completed [facility] 00:00:00 [facility] Varicella 2010-09-14 Completed [facility] (varivax)(chicken 00:00:00 [facility] Hep B, Adol or Pedi 2010-09-14 Completed [facility] of Dosage 00:00:00 [facility] Meningococcal 2010-09-14 Completed [facility] Polysaccharide 00:00:00 [facility] minal (groups A, C, Y and Branc h W-135) conjugate vaccine (MCV4P) TDAP 2010-09-14 Completed [facility] 00:00:00 [facility] Varicella 2010-09-14 Completed [facility] (varivax)(chicken 00:00:00 [facility] Hep B, Adol or Pedi 2010-09-14 Completed [facility] of Dosage 00:00:00 [facility] Meningococcal 2010-09-14 Completed [facility] Polysaccharide 00:00:00 [facility] mnial (groups A, C, Y and Branc h W-135) conjugate vaccine (MCV4P) TDAP 2010-09-14 Completed [facility] 00:00:00 [facility] Varicella 2010-09-14 Completed [facility] (varivax)(chicken 00:00:00 [facility] Hep B, Adol or Pedi 2010-09-14 Completed [facility] of Dosage 00:00:00 [facility] Meningococcal 2010-09-14 Completed [facility] Polysaccharide 00:00:00 [facility] (groups A, C, Y and Branc h W-135) conjugate vaccine (MCV4P) TDAP 2010-09-14 Completed [facility] 00:00:00 [facility] Varicella 2010-09-14 Completed [facility] (varivax)(chicken 00:00:00 [facility] Hep B, Adol or Pedi 2010-09-14 Completed [facility] of Dosage 00:00:00 [facility] Meningococcal 2010-09-14 Completed [facility] Polysaccharide 00:00:00 [facility] (groups A, C, Y and Branc h W-135) conjugate vaccine (MCV4P) TDAP 2010-09-14 Completed [facility] 00:00:00 [facility] Varicella 2010-09-14 Completed [facility] (varivax)(chicken 00:00:00 [facility] Hep B, Adol or Pedi 2010-09-14 Completed [facility] of Dosage 00:00:00 [facility] Meningococcal 2010-09-14 Completed [facility] Polysaccharide 00:00:00 [facility] (groups A, C, Y and Branc h W-135) conjugate vaccine (MCV4P) TDAP 2010-09-14 Completed [facility] 00:00:00 [facility] Varicella 2010-09-14 Completed [facility] (varivax)(chicken 00:00:00 [facility] Hep B, Adol or Pedi 2010-09-14 Completed [facility] of Dosage 00:00:00 [facility] Meningococcal 2010-09-14 Completed [facility] Polysaccharide 00:00:00 [facility] (groups A, C, Y and Branc h W-135) conjugate vaccine (MCV4P) TDAP 2010-09-14 Completed [facility] 00:00:00 [facility] Varicella 2010-09-14 Completed [facility] (varivax)(chicken 00:00:00 [facility] Hep B, Adol or Pedi 2010-09-14 Completed [facility] of Dosage 00:00:00 [facility] Meningococcal 2010-09-14 Completed [facility] Polysaccharide 00:00:00 [facility] (groups A, C, Y and Branc h W-135) conjugate vaccine (MCV4P) TDAP 2010-09-14 Completed [facility] 00:00:00 [facility] Varicella 2010-09-14 Completed [facility] (varivax)(chicken 00:00:00 [facility] Hep B, Adol or Pedi 2010-09-14 Completed [facility] of Dosage 00:00:00 [facility] Meningococcal 2010-09-14 Completed [facility] Polysaccharide 00:00:00 [facility] (groups A, C, Y and Branc h W-135) conjugate vaccine (MCV4P) TDAP 2010-09-14 Completed [facility] 00:00:00 [facility] Varicella 2010-09-14 Completed [facility] (varivax)(chicken 00:00:00 [facility] Hep B, Adol or Pedi 2010-09-14 Completed [facility] of Dosage 00:00:00 [facility] Meningococcal 2010-09-14 Completed [facility] Polysaccharide 00:00:00 [facility] (groups A, C, Y and Branc h W-135) conjugate vaccine (MCV4P) TDAP 2010-09-14 Completed [facility] 00:00:00 [facility] Varicella 2010-09-14 Completed [facility] (varivax)(chicken 00:00:00 [facility] Hep B, Adol or Pedi 2010-09-14 Completed [facility] of Dosage 00:00:00 [facility] Meningococcal 2010-09-14 Completed [facility] Polysaccharide 00:00:00 [facility] minal (groups A, C, Y and Branc h W-135) conjugate vaccine (MCV4P) TDAP 2010-09-14 Completed [facility] 00:00:00 [facility] Varicella 2010-09-14 Completed [facility] (varivax)(chicken 00:00:00 [facility] Hep B, Adol or Pedi 2010-09-14 Completed [facility] of Dosage 00:00:00 [facility] Meningococcal 2010-09-14 Completed [facility] Polysaccharide 00:00:00 [facility] (groups A, C, Y and Branc h W-135) conjugate vaccine (MCV4P) TDAP 2010-09-14 Completed [facility] 00:00:00 [facility] Varicella 2010-09-14 Completed [facility] (varivax)(chicken 00:00:00 [facility] Hep B, Adol or Pedi 2010-09-14 Completed [facility] of Dosage 00:00:00 [facility] Meningococcal 2010-09-14 Completed [facility] Polysaccharide 00:00:00 [facility] (groups A, C, Y and Branc h W-135) conjugate vaccine (MCV4P) TDAP 2010-09-14 Completed [facility] 00:00:00 [facility] Varicella 2010-09-14 Completed [facility] (varivax)(chicken 00:00:00 [facility] Hep B, Adol or Pedi 2010-09-14 Completed [facility] of Dosage 00:00:00 [facility] Meningococcal 2010-09-14 Completed [facility] Polysaccharide 00:00:00 [facility] (groups A, C, Y and Branc h W-135) conjugate vaccine (MCV4P) TDAP 2010-09-14 Completed [facility] 00:00:00 [facility] Varicella 2010-09-14 Completed [facility] (varivax)(chicken 00:00:00 [facility] Hep B, Adol or Pedi 2010-09-14 Completed [facility] of Dosage 00:00:00 [facility] Meningococcal 2010-09-14 Completed [facility] Polysaccharide 00:00:00 [facility] (groups A, C, Y and Branc h W-135) conjugate vaccine (MCV4P) TDAP 2010-09-14 Completed [facility] 00:00:00 [facility] Varicella 2010-09-14 Completed [facility] (varivax)(chicken 00:00:00 [facility] Hep B, Adol or Pedi 2010-09-14 Completed [facility] of Dosage 00:00:00 [facility] Meningococcal 2010-09-14 Completed [facility] Polysaccharide 00:00:00 [facility] (groups A, C, Y and Branc h W-135) conjugate vaccine (MCV4P) TDAP 2010-09-14 Completed [facility] 00:00:00 [facility] Varicella 2010-09-14 Completed [facility] (varivax)(chicken 00:00:00 [facility] Hep B, Adol or Pedi 2010-09-14 Completed [facility] of Dosage 00:00:00 [facility] Meningococcal 2010-09-14 Completed [facility] Polysaccharide 00:00:00 [facility] (groups A, C, Y and Branc h W-135) conjugate vaccine (MCV4P) TDAP 2010-09-14 Completed [facility] 00:00:00 [facility] Varicella 2010-09-14 Completed [facility] (varivax)(chicken 00:00:00 [facility] Hep B, Adol or Pedi 2010-09-14 Completed [facility] of Dosage 00:00:00 [facility] Meningococcal 2010-09-14 Completed [facility] Polysaccharide 00:00:00 [facility] (groups A, C, Y and Branc h W-135) conjugate vaccine (MCV4P) TDAP 2010-09-14 Completed [facility] 00:00:00 [facility] Varicella 2010-09-14 Completed [facility] (varivax)(chicken 00:00:00 [facility] Hep B, Adol or Pedi 2010-09-14 Completed [facility] of Dosage 00:00:00 [facility] Meningococcal 2010-09-14 Completed [facility] Polysaccharide 00:00:00 [facility] (groups A, C, Y and Branc h W-135) conjugate vaccine (MCV4P) TDAP 2010-09-14 Completed [facility] 00:00:00 [facility] Varicella 2010-09-14 Completed [facility] (varivax)(chicken 00:00:00 [facility] Hep B, Adol or Pedi 2010-09-14 Completed [facility] of Dosage 00:00:00 [facility] Meningococcal 2010-09-14 Completed [facility] Polysaccharide 00:00:00 [facility] (groups A, C, Y and Branc h W-135) conjugate vaccine (MCV4P) TDAP 2010-09-14 Completed [facility] 00:00:00 [facility] Varicella 2010-09-14 Completed [facility] (varivax)(chicken 00:00:00 [facility] Hep B, Adol or Pedi 2010-09-14 Completed [facility] of Dosage 00:00:00 [facility] Meningococcal 2010-09-14 Completed [facility] Polysaccharide 00:00:00 [facility] (groups A, C, Y and Branc h W-135) conjugate vaccine (MCV4P) TDAP 2010-09-14 Completed [facility] 00:00:00 [facility] Varicella 2010-09-14 Completed [facility] (varivax)(chicken 00:00:00 [facility] Hep B, Adol or Pedi 2010-09-14 Completed [facility] of Dosage 00:00:00 [facility] Meningococcal 2010-09-14 Completed [facility] Polysaccharide 00:00:00 [place] [facility] (groups A, C, Y and Branc h W-135) conjugate vaccine (MCV4P) TDAP 2010-09-14 Completed [facility] 00:00:00 [facility] Varicella 2010-09-14 Completed [facility] (varivax)(chicken 00:00:00 [facility] Hep B, Adol or Pedi 2010-09-14 Completed [facility] of Dosage 00:00:00 [facility] Meningococcal 2010-09-14 Completed [facility] Polysaccharide 00:00:00 [facility] minal (groups A, C, Y and Branc h W-135) conjugate vaccine (MCV4P) TDAP 2010-09-14 Completed [facility] 00:00:00 [facility] Varicella 2010-09-14 Completed [facility] (varivax)(chicken 00:00:00 [facility] Hep B, Adol or Pedi 2010-09-14 Completed [facility] of Dosage 00:00:00 [facility] Meningococcal 2010-09-14 Completed [facility] Polysaccharide 00:00:00 [facility] minal (groups A, C, Y and Branc h W-135) conjugate vaccine (MCV4P) TDAP 2010-09-14 Completed [facility] 00:00:00 [facility] Varicella 2010-09-14 Completed [facility] (varivax)(chicken 00:00:00 [facility] Hep B, Adol or Pedi 2010-09-14 Completed [facility] of Dosage 00:00:00 [facility] Meningococcal 2010-09-14 Completed [facility] Polysaccharide 00:00:00 [facility] minal (groups A, C, Y and Branc h W-135) conjugate vaccine (MCV4P) TDAP 2010-09-14 Completed [facility] 00:00:00 [facility] Varicella 2010-09-14 Completed [facility] (varivax)(chicken 00:00:00 [facility] Hep B, Adol or Pedi 2010-09-14 Completed [facility] of Dosage 00:00:00 [facility] Meningococcal 2010-09-14 Completed [facility] Polysaccharide 00:00:00 [facility] minal (groups A, C, Y and Branc h W-135) conjugate vaccine (MCV4P) TDAP 2010-09-14 Completed [facility] 00:00:00 [facility] Varicella 2010-09-14 Completed [facility] (varivax)(chicken 00:00:00 [place] [facility] Hep B, Adol or Pedi 2010-09-14 Completed [facility] Dosage 00:00:00 [facility] Meningococcal 2010-09-14 Completed [facility] Polysaccharide 00:00:00 [facility] (groups A, C, Y and Branc h W-135) conjugate vaccine (MCV4P) TDAP 2010-09-14 Completed [facility] 00:00:00 [facility] Varicella 2010-09-14 Completed [facility] (varivax)(chicken 00:00:00 [facility] Branch Hep B, Adol or Pedi 2010-09-14 Completed [facility] Dosage 00:00:00 [facility] Meningococcal 2010-09-14 Completed [facility] Polysaccharide 00:00:00 [facility] (groups A, C, Y and Branc h W-135) conjugate vaccine (MCV4P) TDAP 2010-09-14 Completed [facility] 00:00:00 [facility] Varicella 2010-09-14 Completed [facility] (varivax)(chicken 00:00:00 [facility] Branch Hep B, Adol or Pedi 2010-09-14 Completed [facility] Dosage 00:00:00 [facility] Meningococcal 2010-09-14 Completed [facility] Polysaccharide 00:00:00 [facility] minal (groups A, C, Y and Branc h W-135) conjugate vaccine (MCV4P) TDAP 2010-09-14 Completed [facility] 00:00:00 [facility] Varicella 2010-09-14 Completed [facility] (varivax)(chicken 00:00:00 [place] [facility] Branch Hep B, Adol or Pedi 2010-09-14 Completed [facility] Dosage 00:00:00 [facility] Meningococcal 2010-09-14 Completed [facility] Polysaccharide 00:00:00 [facility] (groups A, C, Y and Branc h W-135) conjugate vaccine (MCV4P) TDAP 2010-09-14 Completed [facility] 00:00:00 [facility] Varicella 2010-09-14 Completed [facility] (varivax)(chicken 00:00:00 [place] [facility] Branch Hep B, Adol or Pedi 2010-09-14 Completed [facility] Dosage 00:00:00 [facility] Meningococcal 2010-09-14 Completed [facility] Polysaccharide 00:00:00 [place] [facility] (groups A, C, Y and Branc h W-135) conjugate vaccine (MCV4P) TDAP 2010-09-14 Completed [facility] 00:00:00 [facility] Varicella 2010-09-14 Completed [facility] (varivax)(chicken 00:00:00 [place] [facility] Branch Hep B, Adol or Pedi 2010-09-14 Completed [facility] Dosage 00:00:00 [facility] Meningococcal 2010-09-14 Completed [facility] Polysaccharide 00:00:00 [facility] (groups A, C, Y and Branc h W-135) conjugate vaccine (MCV4P) TDAP 2010-09-14 Completed [facility] 00:00:00 [facility] Varicella 2010-09-14 Completed [facility] (varivax)(chicken 00:00:00 [place] [facility] Branch Hep B, Adol or Pedi 2010-09-14 Completed [facility] Dosage 00:00:00 [facility] Meningococcal 2010-09-14 Completed [facility] Polysaccharide 00:00:00 [place] [facility] (groups A, C, Y and Branc h W-135) conjugate vaccine (MCV4P) TDAP 2010-09-14 Completed [facility] 00:00:00 [facility] Varicella 2010-09-14 Completed [facility] (varivax)(chicken 00:00:00 [place] [facility] Branch Hep B, Adol or Pedi 2010-09-14 Completed [facility] Dosage 00:00:00 [facility] Meningococcal 2010-09-14 Completed [facility] Polysaccharide 00:00:00 [place] [facility] (groups A, C, Y and Branc h W-135) conjugate vaccine (MCV4P) TDAP 2010-09-14 Completed [facility] 00:00:00 [facility] Varicella 2010-09-14 Completed [facility] (varivax)(chicken 00:00:00 [place] [facility] Branch Hep B, Adol or Pedi 2010-09-14 Completed [facility] Dosage 00:00:00 [facility] Meningococcal 2010-09-14 Completed [facility] Polysaccharide 00:00:00 [place] [facility] (groups A, C, Y and Branc h W-135) conjugate vaccine (MCV4P) TDAP 2010-09-14 Completed [facility] 00:00:00 [facility] Varicella 2010-09-14 Completed [facility] (varivax)(chicken 00:00:00 [place] [facility] Branch Hep B, Adol or Pedi 2010-09-14 Completed [facility] Dosage 00:00:00 [facility] Meningococcal 2010-09-14 Completed [facility] Polysaccharide 00:00:00 [place] [facility] (groups A, C, Y and Branc h W-135) conjugate vaccine (MCV4P) TDAP 2010-09-14 Completed [facility] 00:00:00 [facility] Varicella 2010-09-14 Completed [facility] (varivax)(chicken 00:00:00 [place] [facility] Branch Hep B, Adol or Pedi 2010-09-14 Completed [facility] Dosage 00:00:00 [facility] Meningococcal 2010-09-14 Completed [facility] Polysaccharide 00:00:00 [place] [facility] (groups A, C, Y and Branc h W-135) conjugate vaccine (MCV4P) TDAP 2010-09-14 Completed [facility] 00:00:00 [facility] Varicella 2010-09-14 Completed [facility] (varivax)(chicken 00:00:00 [place] [facility] Branch Hep B, Adol or Pedi 2010-09-14 Completed [facility] Dosage 00:00:00 [facility] Meningococcal 2010-09-14 Completed [facility] Polysaccharide 00:00:00 [place] [facility] (groups A, C, Y and Branc h W-135) conjugate vaccine (MCV4P) TDAP 2010-09-14 Completed [facility] 00:00:00 [facility] Varicella 2010-09-14 Completed [facility] (varivax)(chicken 00:00:00 [place] [facility] Branch Hep B, Adol or Pedi 2010-09-14 Completed [facility] Dosage 00:00:00 [facility] Meningococcal 2010-09-14 Completed [facility] Polysaccharide 00:00:00 [place] [facility] (groups A, C, Y and Branc h W-135) conjugate vaccine (MCV4P) TDAP 2010-09-14 Completed [facility] 00:00:00 [facility] Varicella 2010-09-14 Completed [facility] (varivax)(chicken 00:00:00 [place] [facility] Branch Hep B, Adol or Pedi 2010-09-14 Completed [facility] Dosage 00:00:00 [facility] Meningococcal 2010-09-14 Completed [facility] Polysaccharide 00:00:00 [place] [facility] (groups A, C, Y and Branc h W-135) conjugate vaccine (MCV4P) TDAP 2010-09-14 Completed [facility] 00:00:00 [facility] Varicella 2010-09-14 Completed [facility] (varivax)(chicken 00:00:00 [place] [facility] Branch Hep B, Adol or Pedi 2010-09-14 Completed [facility] Dosage 00:00:00 [facility] Meningococcal 2010-09-14 Completed [facility] Polysaccharide 00:00:00 [place] [facility] (groups A, C, Y and Branc h W-135) conjugate vaccine (MCV4P) TDAP 2010-09-14 Completed [facility] 00:00:00 [facility] Varicella 2010-09-14 Completed [facility] (varivax)(chicken 00:00:00 [place] [facility] Branch Hep B, Adol or Pedi 2010-09-14 Completed [facility] Dosage 00:00:00 [facility] Meningococcal 2010-09-14 Completed [facility] Polysaccharide 00:00:00 [place] [facility] (groups A, C, Y and Branc h W-135) conjugate vaccine (MCV4P) TDAP 2010-09-14 Completed [facility] 00:00:00 [facility] Varicella 2010-09-14 Completed [facility] (varivax)(chicken 00:00:00 [place] [facility] Branch Hep B, Adol or Pedi 2010-09-14 Completed [facility] Dosage 00:00:00 [facility] Meningococcal 2010-09-14 Completed [facility] Polysaccharide 00:00:00 [place] [facility] (groups A, C, Y and Branc h W-135) conjugate vaccine (MCV4P) TDAP 2010-09-14 Completed [facility] 00:00:00 [facility] Varicella 2010-09-14 Completed [facility] (varivax)(chicken 00:00:00 [place] [facility] Branch Hep B, Adol or Pedi 2010-09-14 Completed [facility] Dosage 00:00:00 [facility] Meningococcal 2010-09-14 Completed [facility] Polysaccharide 00:00:00 [facility] minal (groups A, C, Y and Branc h W-135) conjugate vaccine (MCV4P) TDAP 2010-09-14 Completed [facility] 00:00:00 [facility] Varicella 2010-09-14 Completed [facility] (varivax)(chicken 00:00:00 [place] [facility] Branch Hep B, Adol or Pedi 2010-09-14 Completed [facility] Dosage 00:00:00 [facility] Meningococcal 2010-09-14 Completed [facility] Polysaccharide 00:00:00 [facility] minal (groups A, C, Y and Branc h W-135) conjugate vaccine (MCV4P) TDAP 2010-09-14 Completed [facility] 00:00:00 [facility] Varicella 2010-09-14 Completed [facility] (varivax)(chicken 00:00:00 [place] [facility] Branch Hep B, Adol or Pedi 2010-09-14 Completed [facility] Dosage 00:00:00 [facility] Meningococcal 2010-09-14 Completed [facility] Polysaccharide 00:00:00 [facility] minal (groups A, C, Y and Branc h W-135) conjugate vaccine (MCV4P) TDAP 2010-09-14 Completed [facility] 00:00:00 [facility] Varicella 2010-09-14 Completed [facility] (varivax)(chicken 00:00:00 [place] [facility] Branch Hep B, Adol or Pedi 2010-09-14 Completed [facility] Dosage 00:00:00 [facility] Meningococcal 2010-09-14 Completed [facility] Polysaccharide 00:00:00 [facility] minal (groups A, C, Y and Branc h W-135) conjugate vaccine (MCV4P) TDAP 2010-09-14 Completed [facility] 00:00:00 [facility] Varicella 2010-09-14 Completed [facility] (varivax)(chicken 00:00:00 [place] [facility] Branch Hep B, Adol or Pedi 2010-09-14 Completed [facility] Dosage 00:00:00 [facility] Meningococcal 2010-09-14 Completed [facility] Polysaccharide 00:00:00 [facility] minal (groups A, C, Y and Branc h W-135) conjugate vaccine (MCV4P) TDAP 2010-09-14 Completed [facility] 00:00:00 [facility] Varicella 2010-09-14 Completed [facility] (varivax)(chicken 00:00:00 [place] [facility] Branch Hep B, Adol or Pedi 2010-09-14 Completed [facility] Dosage 00:00:00 [facility] Meningococcal 2010-09-14 Completed [facility] Polysaccharide 00:00:00 [place] [facility] (groups A, C, Y and Branc h W-135) conjugate vaccine (MCV4P) TDAP 2010-09-14 Completed [facility] 00:00:00 [facility] Varicella 2010-09-14 Completed [facility] (varivax)(chicken 00:00:00 [place] [facility] Branch Hep B, Adol or Pedi 2010-09-14 Completed [facility] Dosage 00:00:00 [facility] Meningococcal 2010-09-14 Completed [facility] Polysaccharide 00:00:00 [place] [facility] (groups A, C, Y and Branc h W-135) conjugate vaccine (MCV4P) TDAP 2010-09-14 Completed [facility] 00:00:00 [facility] Varicella 2010-09-14 Completed [facility] (varivax)(chicken 00:00:00 [place] [facility] Branch Hep B, Adol or Pedi 2010-09-14 Completed [facility] Dosage 00:00:00 [facility] Meningococcal 2010-09-14 Completed [facility] Polysaccharide 00:00:00 [place] [facility] (groups A, C, Y and Branc h W-135) conjugate vaccine (MCV4P) TDAP 2010-09-14 Completed [facility] 00:00:00 [facility] Varicella 2010-09-14 Completed [facility] (varivax)(chicken 00:00:00 [place] [facility] Branch Hep B, Adol or Pedi 2010-09-14 Completed [facility] Dosage 00:00:00 [facility] Meningococcal 2010-09-14 Completed [facility] Polysaccharide 00:00:00 [place] [facility] (groups A, C, Y and Branc h W-135) conjugate vaccine (MCV4P) TDAP 2010-09-14 Completed [facility] 00:00:00 [facility] Varicella 2010-09-14 Completed [facility] (varivax)(chicken 00:00:00 [place] [facility] Branch Hep B, Adol or Pedi 2010-09-14 Completed [facility] Dosage 00:00:00 [facility] Meningococcal 2010-09-14 Completed [facility] Polysaccharide 00:00:00 [place] [facility] (groups A, C, Y and Branc h W-135) conjugate vaccine (MCV4P) TDAP 2010-09-14 Completed [facility] 00:00:00 [facility] Varicella 2010-09-14 Completed [facility] (varivax)(chicken 00:00:00 [place] [facility] Branch Hep B, Adol or Pedi 2010-09-14 Completed [facility] Dosage 00:00:00 [facility] Meningococcal 2010-09-14 Completed [facility] Polysaccharide 00:00:00 [place] [facility] (groups A, C, Y and Branc h W-135) conjugate vaccine (MCV4P) TDAP 2010-09-14 Completed [facility] 00:00:00 [facility] Varicella 2010-09-14 Completed [facility] (varivax)(chicken 00:00:00 [place] [facility] Branch Hep B, Adol or Pedi 2010-09-14 Completed [facility] Dosage 00:00:00 [facility] Meningococcal 2010-09-14 Completed [facility] Polysaccharide 00:00:00 [place] [facility] (groups A, C, Y and Branc h W-135) conjugate vaccine (MCV4P) TDAP 2010-09-14 Completed [facility] 00:00:00 [facility] Varicella 2010-09-14 Completed [facility] (varivax)(chicken 00:00:00 [place] [facility] Branch Hep B, Adol or Pedi 2010-09-14 Completed [facility] Dosage 00:00:00 [facility] Meningococcal 2010-09-14 Completed [facility] Polysaccharide 00:00:00 [place] [facility] (groups A, C, Y and Branc h W-135) conjugate vaccine (MCV4P) TDAP 2010-09-14 Completed [facility] 00:00:00 [facility] Varicella 2010-09-14 Completed [facility] (varivax)(chicken 00:00:00 [place] [facility]) Branch Hep B, Adol or Pedi 2010-09-14 Completed [facility] Dosage 00:00:00 [facility] Meningococcal 2010-09-14 Completed [facility] Polysaccharide 00:00:00 [place] [facility] (groups A, C, Y and Branc h W-135) conjugate vaccine (MCV4P) TDAP 2010-09-14 Completed [facility] 00:00:00 [facility] Varicella 2010-09-14 Completed [facility] (varivax)(chicken 00:00:00 [place] [facility] Branch Hep B, Adol or Pedi 2010-09-14 Completed [facility] Dosage 00:00:00 [facility] Meningococcal 2010-09-14 Completed [facility] Polysaccharide 00:00:00 [place] [facility] (groups A, C, Y and Branc h W-135) conjugate vaccine (MCV4P) TDAP 2010-09-14 Completed [facility] 00:00:00 [facility] Varicella 2010-09-14 Completed [facility] (varivax)(chicken 00:00:00 [place] [facility] Branch Hep B, Adol or Pedi 2010-09-14 Completed [facility] Dosage 00:00:00 [facility] Meningococcal 2010-09-14 Completed [facility] Polysaccharide 00:00:00 [facility] minal (groups A, C, Y and Branc h W-135) conjugate vaccine (MCV4P) TDAP 2010-09-14 Completed [facility] 00:00:00 [facility] Varicella 2010-09-14 Completed [facility] (varivax)(chicken 00:00:00 [place] [facility]ox) Branch Hep B, Adol or Pedi 2010-09-14 Completed [facility] Dosage 00:00:00 [facility] Meningococcal 2010-09-14 Completed [facility] Polysaccharide 00:00:00 [facility] minal (groups A, C, Y and Branc h W-135) conjugate vaccine (MCV4P) TDAP 2010-09-14 Completed [facility] 00:00:00 [facility] Varicella 2010-09-14 Completed [facility] (varivax)(chicken 00:00:00 [place] [facility]) Branch Hep B, Adol or Pedi 2010-09-14 Completed [facility] Dosage 00:00:00 [facility] Meningococcal 2010-09-14 Completed [facility] Polysaccharide 00:00:00 [place] [facility] (groups A, C, Y and Branc h W-135) conjugate vaccine (MCV4P) TDAP 2010-09-14 Completed [facility] 00:00:00 [facility] Varicella 2010-09-14 Completed [facility] (varivax)(chicken 00:00:00 [place] [facility] Branch Hep B, Adol or Pedi 2010-09-14 Completed [facility] Dosage 00:00:00 [facility] Meningococcal 2010-09-14 Completed [facility] Polysaccharide 00:00:00 [place] [facility] (groups A, C, Y and Branc h W-135) conjugate vaccine (MCV4P) TDAP 2010-09-14 Completed [facility] 00:00:00 [facility] Varicella 2010-09-14 Completed [facility] (varivax)(chicken 00:00:00 [place] [facility] Branch Hep B, Adol or Pedi 2010-09-14 Completed [facility] Dosage 00:00:00 [facility] Meningococcal 2010-09-14 Completed [facility] Polysaccharide 00:00:00 [place] [facility] (groups A, C, Y and Branc h W-135) conjugate vaccine (MCV4P) TDAP 2010-09-14 Completed [facility] 00:00:00 [facility] Varicella 2010-09-14 Completed [facility] (varivax)(chicken 00:00:00 [place] [facility] Branch Hep B, Adol or Pedi 2010-09-14 Completed [facility] Dosage 00:00:00 [facility] Meningococcal 2010-09-14 Completed [facility] Polysaccharide 00:00:00 [place] [facility] (groups A, C, Y and Branc h W-135) conjugate vaccine (MCV4P) TDAP 2010-09-14 Completed [facility] 00:00:00 [facility] Varicella 2010-09-14 Completed [facility] (varivax)(chicken 00:00:00 [place] [facility] Branch Hep B, Adol or Pedi 2010-09-14 Completed [facility] Dosage 00:00:00 [facility] Meningococcal 2010-09-14 Completed [facility] Polysaccharide 00:00:00 [place] [facility] (groups A, C, Y and Branc h W-135) conjugate vaccine (MCV4P) TDAP 2010-09-14 Completed [facility] 00:00:00 [facility] Varicella 2010-09-14 Completed [facility] (varivax)(chicken 00:00:00 [place] [facility] Branch Hep B, Adol or Pedi 2010-09-14 Completed [facility] Dosage 00:00:00 [facility] Meningococcal 2010-09-14 Completed [facility] Polysaccharide 00:00:00 [place] [facility] (groups A, C, Y and Branc h W-135) conjugate vaccine (MCV4P) TDAP 2010-09-14 Completed [facility] 00:00:00 [facility] Varicella 2010-09-14 Completed [facility] (varivax)(chicken 00:00:00 [place] [facility] Branch Hep B, Adol or Pedi 2010-09-14 Completed [facility] Dosage 00:00:00 [facility] Meningococcal 2010-09-14 Completed [facility] Polysaccharide 00:00:00 [facility] minal (groups A, C, Y and Branc h W-135) conjugate vaccine (MCV4P) TDAP 2010-09-14 Completed [facility] 00:00:00 [facility] Varicella 2010-09-14 Completed [facility] (varivax)(chicken 00:00:00 [place] [facility] Branch Hep B, Adol or Pedi 2010-09-14 Completed [facility] Dosage 00:00:00 [facility] Meningococcal 2010-09-14 Completed [facility] Polysaccharide 00:00:00 [facility] minal (groups A, C, Y and Branc h W-135) conjugate vaccine (MCV4P) TDAP 2010-09-14 Completed [facility] 00:00:00 [facility] Varicella 2010-09-14 Completed [facility] (varivax)(chicken 00:00:00 [place] [facility] Branch Hep B, Adol or Pedi 2010-09-14 Completed [facility] Dosage 00:00:00 [facility] Meningococcal 2010-09-14 Completed [facility] Polysaccharide 00:00:00 [place] [facility] (groups A, C, Y and Branc h W-135) conjugate vaccine (MCV4P) TDAP 2010-09-14 Completed [facility] 00:00:00 [facility] Varicella 2010-09-14 Completed [facility] (varivax)(chicken 00:00:00 [place] [facility] Branch Hep B, Adol or Pedi 2010-09-14 Completed [facility] Dosage 00:00:00 [facility] Meningococcal 2010-09-14 Completed [facility] Polysaccharide 00:00:00 [place] [facility] (groups A, C, Y and Branc h W-135) conjugate vaccine (MCV4P) TDAP 2010-09-14 Completed [facility] 00:00:00 [facility] Varicella 2010-09-14 Completed [facility] (varivax)(chicken 00:00:00 [place] [facility] Branch Hep B, Adol or Pedi 2010-09-14 Completed [facility] Dosage 00:00:00 [facility] Meningococcal 2010-09-14 Completed [facility] Polysaccharide 00:00:00 [place] [facility] (groups A, C, Y and Branc h W-135) conjugate vaccine (MCV4P) TDAP 2010-09-14 Completed [facility] 00:00:00 [facility] Varicella 2010-09-14 Completed [facility] (varivax)(chicken 00:00:00 [place] [facility] Branch Hep B, Adol or Pedi 2010-09-14 Completed [facility] Dosage 00:00:00 [facility] Meningococcal 2010-09-14 Completed [facility] Polysaccharide 00:00:00 [place] [facility] (groups A, C, Y and Branc h W-135) conjugate vaccine (MCV4P) TDAP 2010-09-14 Completed [facility] 00:00:00 [facility] Varicella 2010-09-14 Completed [facility] (varivax)(chicken 00:00:00 [place] [facility] Branch Hep B, Adol or Pedi 2010-09-14 Completed [facility] Dosage 00:00:00 [facility] Meningococcal 2010-09-14 Completed [facility] Polysaccharide 00:00:00 [place] [facility] (groups A, C, Y and Branc h W-135) conjugate vaccine (MCV4P) TDAP 2010-09-14 Completed [facility] 00:00:00 [facility] Varicella 2010-09-14 Completed [facility] (varivax)(chicken 00:00:00 [place] [facility] Branch Hep B, Adol or Pedi 2010-09-14 Completed [facility] Dosage 00:00:00 [facility] Meningococcal 2010-09-14 Completed [facility] Polysaccharide 00:00:00 [place] [facility] (groups A, C, Y and Branc h W-135) conjugate vaccine (MCV4P) TDAP 2010-09-14 Completed [facility] 00:00:00 [facility] Varicella 2010-09-14 Completed [facility] (varivax)(chicken 00:00:00 [place] [facility] Branch Hep B, Adol or Pedi 2010-09-14 Completed [facility] Dosage 00:00:00 [facility] Meningococcal 2010-09-14 Completed [facility] Polysaccharide 00:00:00 [place] [facility] (groups A, C, Y and Branc h W-135) conjugate vaccine (MCV4P) TDAP 2010-09-14 Completed [facility] 00:00:00 [facility] Varicella 2010-09-14 Completed [facility] (varivax)(chicken 00:00:00 [place] [facility] Branch Hep B, Adol or Pedi 2010-09-14 Completed [facility] Dosage 00:00:00 [facility] Meningococcal 2010-09-14 Completed [facility] Polysaccharide 00:00:00 [place] [facility] (groups A, C, Y and Branc h W-135) conjugate vaccine (MCV4P) TDAP 2010-09-14 Completed [facility] 00:00:00 [facility] Varicella 2010-09-14 Completed [facility] (varivax)(chicken 00:00:00 [place] [facility] Branch Hep B, Adol or Pedi 2010-09-14 Completed [facility] Dosage 00:00:00 [facility] Meningococcal 2010-09-14 Completed [facility] Polysaccharide 00:00:00 [place] [facility] (groups A, C, Y and Branc h W-135) conjugate vaccine (MCV4P) TDAP 2010-09-14 Completed [facility] 00:00:00 [facility] Varicella 2010-09-14 Completed [facility] (varivax)(chicken 00:00:00 [place] [facility] Branch Hep B, Adol or Pedi 2010-09-14 Completed [facility] Dosage 00:00:00 [facility] Meningococcal 2010-09-14 Completed [facility] Polysaccharide 00:00:00 [place] [facility] (groups A, C, Y and Branc h W-135) conjugate vaccine (MCV4P) TDAP 2010-09-14 Completed [facility] 00:00:00 [facility] Varicella 2010-09-14 Completed [facility] (varivax)(chicken 00:00:00 [place] [facility] Branch Hep B, Adol or Pedi 2010-09-14 Completed [facility] Dosage 00:00:00 [facility] Meningococcal 2010-09-14 Completed [facility] Polysaccharide 00:00:00 [place] [facility] (groups A, C, Y and Branc h W-135) conjugate vaccine (MCV4P) TDAP 2010-09-14 Completed [facility] 00:00:00 [facility] Varicella 2010-09-14 Completed [facility] (varivax)(chicken 00:00:00 [place] [facility] Branch Hep B, Adol or Pedi 2010-09-14 Completed [facility] Dosage 00:00:00 [facility] [facility] Meningococcal 2010-09-14 Completed [facility] Polysaccharide 00:00:00 [facility] minal (groups A, C, Y and Branc h W-135) conjugate vaccine (MCV4P) TDAP 2010-09-14 Completed [facility] 00:00:00 [facility] Varicella 2010-09-14 Completed [facility] (varivax)(chicken 00:00:00 [facility] Hep B, Adol or Pedi 2010-09-14 Completed [facility]ive [facility]ity of Dosage 00:00:00 [facility] Meningococcal 2010-09-14 Completed [facility] Polysaccharide 00:00:00 [facility] minal (groups A, C, Y and Branc h W-135) conjugate vaccine (MCV4P) TDAP 2010-09-14 Completed [facility] 00:00:00 [facility] Varicella 2010-09-14 Completed [facility] (varivax)(chicken 00:00:00 [facility] Hep B, Adol or Pedi 2010-09-14 Completed [facility] Dosage 00:00:00 [facility] Meningococcal 2010-09-14 Completed [facility] Polysaccharide 00:00:00 [facility] minal (groups A, C, Y and Branc h W-135) conjugate vaccine (MCV4P) TDAP 2010-09-14 Completed [facility] 00:00:00 [facility] Varicella 2010-09-14 Completed [facility] (varivax)(chicken 00:00:00 [facility] Hep B, Adol or Pedi 2010-09-14 Completed [facility] Dosage 00:00:00 [facility] Meningococcal 2010-09-14 Completed [facility] Polysaccharide 00:00:00 [facility] minal (groups A, C, Y and Branc h W-135) conjugate vaccine (MCV4P) TDAP 2010-09-14 Completed [facility] 00:00:00 [facility] Varicella 2010-09-14 Completed [facility] (varivax)(chicken 00:00:00 [facility] Hep B, Adol or Pedi 2010-09-14 Completed [facility] Dosage 00:00:00 [facility] Meningococcal 2010-09-14 Completed [facility] Polysaccharide 00:00:00 [facility] (groups A, C, Y and Branc h W-135) conjugate vaccine (MCV4P) TDAP 2010-09-14 Completed [facility] 00:00:00 [facility] Varicella 2010-09-14 Completed [facility] (varivax)(chicken 00:00:00 [facility] Hep B, Adol or Pedi 2010-09-14 Completed [facility] Dosage 00:00:00 [facility] Meningococcal 2010-09-14 Completed [facility] Polysaccharide 00:00:00 [facility] (groups A, C, Y and Branc h W-135) conjugate vaccine (MCV4P) TDAP 2010-09-14 Completed [facility] 00:00:00 [facility] Varicella 2010-09-14 Completed [facility] (varivax)(chicken 00:00:00 [facility]ox[facility] DTAP 2004-07-02 Completed [facility] 00:00:00 [facility] MMR 2004-07-02 Completed [facility] 00:00:00 [facility] DTAP 2004-07-02 Completed [facility] 00:00:00 [facility] MMR 2004-07-02 Completed [facility] 00:00:00 [facility] DTAP 2004-07-02 Completed [facility] 00:00:00 [facility] MMR 2004-07-02 Completed [facility] 00:00:00 [facility] DTAP 2004-07-02 Completed [facility] 00:00:00 [facility] MMR 2004-07-02 Completed [facility] 00:00:00 [facility] DTAP 2004-07-02 Completed [facility] 00:00:00 [facility] MMR 2004-07-02 Completed [facility] 00:00:00 [facility] DTAP 2004-07-02 Completed [facility] 00:00:00 [facility] MMR 2004-07-02 Completed [facility] 00:00:00 [facility] DTAP 2004-07-02 Completed [facility] 00:00:00 [facility] MMR 2004-07-02 Completed [facility] 00:00:00 [facility] DTAP 2004-07-02 Completed [facility] 00:00:00 [facility] MMR 2004-07-02 Completed [facility] 00:00:00 [facility] DTAP 2004-07-02 Completed [facility] 00:00:00 [facility] MMR 2004-07-02 Completed [facility] 00:00:00 [facility] DTAP 2004-07-02 Completed [facility] 00:00:00 [facility] MMR 2004-07-02 Completed [facility] 00:00:00 [facility] DTAP 2004-07-02 Completed [facility] 00:00:00 [facility] MMR 2004-07-02 Completed [facility] 00:00:00 [facility] DTAP 2004-07-02 Completed [facility] 00:00:00 [facility] MMR 2004-07-02 Completed [facility] 00:00:00 [facility] DTAP 2004-07-02 Completed [facility] 00:00:00 [facility] MMR 2004-07-02 Completed [facility] 00:00:00 [facility] DTAP 2004-07-02 Completed [facility] 00:00:00 [facility] MMR 2004-07-02 Completed [facility] 00:00:00 [facility] DTAP 2004-07-02 Completed [facility] 00:00:00 [facility] MMR 2004-07-02 Completed [facility] 00:00:00 [facility] DTAP 2004-07-02 Completed [facility] 00:00:00 [facility] MMR 2004-07-02 Completed [facility] 00:00:00 [facility] DTAP 2004-07-02 Completed [facility] 00:00:00 [facility] MMR 2004-07-02 Completed [facility] 00:00:00 [facility] DTAP 2004-07-02 Completed [facility] 00:00:00 [facility] MMR 2004-07-02 Completed [facility] 00:00:00 [facility] DTAP 2004-07-02 Completed [facility] 00:00:00 [facility] MMR 2004-07-02 Completed [facility] 00:00:00 [facility] DTAP 2004-07-02 Completed [facility] 00:00:00 [facility] MMR 2004-07-02 Completed [facility] 00:00:00 [facility] DTAP 2004-07-02 Completed [facility] 00:00:00 [facility] MMR 2004-07-02 Completed [facility] 00:00:00 [facility] DTAP 2004-07-02 Completed [facility] 00:00:00 [facility] MMR 2004-07-02 Completed [facility] 00:00:00 [facility] DTAP 2004-07-02 Completed [facility] 00:00:00 [facility] MMR 2004-07-02 Completed [facility] 00:00:00 [facility] DTAP 2004-07-02 Completed [facility] 00:00:00 [facility] MMR 2004-07-02 Completed [facility] 00:00:00 [facility] DTAP 2004-07-02 Completed [facility] 00:00:00 [facility] MMR 2004-07-02 Completed [facility] 00:00:00 [facility] DTAP 2004-07-02 Completed [facility] 00:00:00 [facility] MMR 2004-07-02 Completed [facility] 00:00:00 [facility] DTAP 2004-07-02 Completed [facility] 00:00:00 [facility] MMR 2004-07-02 Completed [facility] 00:00:00 [facility] DTAP 2004-07-02 Completed [facility] 00:00:00 [facility] MMR 2004-07-02 Completed [facility] 00:00:00 [facility] DTAP 2004-07-02 Completed [facility] 00:00:00 [facility] MMR 2004-07-02 Completed [facility] 00:00:00 [facility] DTAP 2004-07-02 Completed [facility] 00:00:00 [facility] MMR 2004-07-02 Completed [facility] 00:00:00 [facility] DTAP 2004-07-02 Completed [facility] 00:00:00 [facility] MMR 2004-07-02 Completed [facility] 00:00:00 [facility] DTAP 2004-07-02 Completed [facility] 00:00:00 [facility] MMR 2004-07-02 Completed [facility] 00:00:00 [facility] DTAP 2004-07-02 Completed [facility] 00:00:00 [facility] MMR 2004-07-02 Completed [facility] 00:00:00 [facility] DTAP 2004-07-02 Completed [facility] 00:00:00 [facility] MMR 2004-07-02 Completed [facility] 00:00:00 [facility] DTAP 2004-07-02 Completed [facility] 00:00:00 [facility] MMR 2004-07-02 Completed [facility] 00:00:00 [facility] DTAP 2004-07-02 Completed [facility] 00:00:00 [facility] MMR 2004-07-02 Completed [facility] 00:00:00 [facility] DTAP 2004-07-02 Completed [facility] 00:00:00 [facility] MMR 2004-07-02 Completed [facility] 00:00:00 [facility] DTAP 2004-07-02 Completed [facility] 00:00:00 [facility] MMR 2004-07-02 Completed [facility] 00:00:00 [facility] DTAP 2004-07-02 Completed [facility] 00:00:00 [facility] MMR 2004-07-02 Completed [facility] 00:00:00 [facility] DTAP 2004-07-02 Completed [facility] 00:00:00 [facility] MMR 2004-07-02 Completed [facility] 00:00:00 [facility] DTAP 2004-07-02 Completed [facility] 00:00:00 [facility] MMR 2004-07-02 Completed [facility] 00:00:00 [facility] DTAP 2004-07-02 Completed [facility] 00:00:00 [facility] MMR 2004-07-02 Completed [facility] 00:00:00 [facility] DTAP 2004-07-02 Completed [facility] 00:00:00 [facility] MMR 2004-07-02 Completed [facility] 00:00:00 [facility] DTAP 2004-07-02 Completed [facility] 00:00:00 [facility] MMR 2004-07-02 Completed [facility] 00:00:00 [facility] DTAP 2004-07-02 Completed [facility] 00:00:00 [facility] MMR 2004-07-02 Completed [facility] 00:00:00 [facility] DTAP 2004-07-02 Completed [facility] 00:00:00 [facility] MMR 2004-07-02 Completed [facility] 00:00:00 [facility] DTAP 2004-07-02 Completed [facility] 00:00:00 [facility] MMR 2004-07-02 Completed [facility] 00:00:00 [facility] DTAP 2004-07-02 Completed [facility] 00:00:00 [facility] MMR 2004-07-02 Completed [facility] 00:00:00 [facility] DTAP 2004-07-02 Completed [facility] 00:00:00 [facility] MMR 2004-07-02 Completed [facility] 00:00:00 [facility] DTAP 2004-07-02 Completed [facility] 00:00:00 [facility] MMR 2004-07-02 Completed [facility] 00:00:00 [facility] DTAP 2004-07-02 Completed [facility] 00:00:00 [facility] MMR 2004-07-02 Completed [facility] 00:00:00 [facility] DTAP 2004-07-02 Completed [facility] 00:00:00 [facility] MMR 2004-07-02 Completed [facility] 00:00:00 [facility] DTAP 2004-07-02 Completed [facility] 00:00:00 [facility] MMR 2004-07-02 Completed [facility] 00:00:00 [facility] DTAP 2004-07-02 Completed [facility] 00:00:00 [facility] MMR 2004-07-02 Completed [facility] 00:00:00 [facility] DTAP 2004-07-02 Completed [facility] 00:00:00 [facility] MMR 2004-07-02 Completed [facility] 00:00:00 [facility] DTAP 2004-07-02 Completed [facility] 00:00:00 [facility] MMR 2004-07-02 Completed [facility] 00:00:00 [facility] DTAP 2004-07-02 Completed [facility] 00:00:00 [facility] MMR 2004-07-02 Completed [facility] 00:00:00 [facility] DTAP 2004-07-02 Completed [facility] 00:00:00 [facility] MMR 2004-07-02 Completed [facility] 00:00:00 [facility] DTAP 2004-07-02 Completed [facility] 00:00:00 [facility] MMR 2004-07-02 Completed [facility] 00:00:00 [facility] DTAP 2004-07-02 Completed [facility] 00:00:00 [facility] MMR 2004-07-02 Completed [facility] 00:00:00 [facility] DTAP 2004-07-02 Completed [facility] 00:00:00 [facility] MMR 2004-07-02 Completed [facility] 00:00:00 [facility] DTAP 2004-07-02 Completed [facility] 00:00:00 [facility] MMR 2004-07-02 Completed [facility] 00:00:00 [facility] DTAP 2004-07-02 Completed [facility] 00:00:00 [facility] MMR 2004-07-02 Completed [facility] 00:00:00 [facility] DTAP 2004-07-02 Completed [facility] 00:00:00 [facility] MMR 2004-07-02 Completed [facility] 00:00:00 [facility] DTAP 2004-07-02 Completed [facility] 00:00:00 [facility] MMR 2004-07-02 Completed [facility] 00:00:00 [facility] DTAP 2004-07-02 Completed [facility] 00:00:00 [facility] MMR 2004-07-02 Completed [facility] 00:00:00 [facility] DTAP 2004-07-02 Completed [facility] 00:00:00 [facility] MMR 2004-07-02 Completed [facility] 00:00:00 [facility] DTAP 2004-07-02 Completed [facility] 00:00:00 [facility] MMR 2004-07-02 Completed [facility] 00:00:00 [facility] DTAP 2004-07-02 Completed [facility] 00:00:00 [facility] MMR 2004-07-02 Completed [facility] 00:00:00 [facility] DTAP 2004-07-02 Completed [facility] 00:00:00 [facility] MMR 2004-07-02 Completed [facility] 00:00:00 [facility] DTAP 2004-07-02 Completed [facility] 00:00:00 [facility] MMR 2004-07-02 Completed [facility] 00:00:00 [facility] DTAP 2004-07-02 Completed [facility] 00:00:00 [facility] MMR 2004-07-02 Completed [facility] 00:00:00 [facility] DTAP 2004-07-02 Completed [facility] 00:00:00 [facility] MMR 2004-07-02 Completed [facility] 00:00:00 [facility] DTAP 2004-07-02 Completed [facility] 00:00:00 [facility] MMR 2004-07-02 Completed [facility] 00:00:00 [facility] DTAP 2004-07-02 Completed [facility] 00:00:00 [facility] MMR 2004-07-02 Completed [facility] 00:00:00 [facility] DTAP 2004-07-02 Completed [facility] 00:00:00 [facility] MMR 2004-07-02 Completed [facility] 00:00:00 [facility] DTAP 2004-07-02 Completed [facility] 00:00:00 [facility] MMR 2004-07-02 Completed [facility] 00:00:00 [facility] DTAP 2004-07-02 Completed [facility] 00:00:00 [facility] MMR 2004-07-02 Completed [facility] 00:00:00 [facility] DTAP 2004-07-02 Completed [facility] 00:00:00 [facility] MMR 2004-07-02 Completed [facility] 00:00:00 [facility] DTAP 2004-07-02 Completed [facility] 00:00:00 [facility] MMR 2004-07-02 Completed [facility] 00:00:00 [facility] DTAP 2004-07-02 Completed [facility] 00:00:00 [facility] MMR 2004-07-02 Completed [facility] 00:00:00 [facility] DTAP 2004-07-02 Completed [facility] 00:00:00 [facility] MMR 2004-07-02 Completed [facility] 00:00:00 [facility] DTAP 2004-07-02 Completed [facility] 00:00:00 [facility] MMR 2004-07-02 Completed [facility] 00:00:00 [facility] DTAP 2004-07-02 Completed [facility] 00:00:00 [facility] MMR 2004-07-02 Completed [facility] 00:00:00 [facility] DTAP 2004-07-02 Completed [facility] 00:00:00 [facility] MMR 2004-07-02 Completed [facility] 00:00:00 [facility] DTAP 2004-07-02 Completed [facility] 00:00:00 [facility] MMR 2004-07-02 Completed [facility] 00:00:00 [facility] DTAP 2004-07-02 Completed [facility] 00:00:00 [facility] MMR 2004-07-02 Completed [facility] 00:00:00 [facility] DTAP 2004-07-02 Completed [facility] 00:00:00 [facility] MMR 2004-07-02 Completed [facility] 00:00:00 [facility] DTAP 2004-07-02 Completed [facility] 00:00:00 [facility] MMR 2004-07-02 Completed [facility] 00:00:00 [facility] DTAP 2004-07-02 Completed [facility] 00:00:00 [facility] MMR 2004-07-02 Completed [facility] 00:00:00 [facility] DTAP 2004-07-02 Completed [facility] 00:00:00 [facility] MMR 2004-07-02 Completed [facility] 00:00:00 [facility] DTAP 2004-07-02 Completed [facility] 00:00:00 [facility] MMR 2004-07-02 Completed [facility] 00:00:00 [facility] DTAP 2004-07-02 Completed [facility] 00:00:00 [facility] MMR 2004-07-02 Completed [facility] 00:00:00 [facility] DTAP 2004-07-02 Completed [facility] 00:00:00 [facility] MMR 2004-07-02 Completed [facility] 00:00:00 [facility] DTAP 2004-07-02 Completed [facility] 00:00:00 [facility] MMR 2004-07-02 Completed [facility] 00:00:00 [facility] DTAP 2004-07-02 Completed [facility] 00:00:00 [facility] MMR 2004-07-02 Completed [facility] 00:00:00 [facility] DTAP 2004-07-02 Completed [facility] 00:00:00 [facility] MMR 2004-07-02 Completed [facility] 00:00:00 [facility] DTAP 2004-07-02 Completed [facility] 00:00:00 [facility] MMR 2004-07-02 Completed [facility] 00:00:00 [facility] DTAP 2004-07-02 Completed [facility] 00:00:00 [facility] MMR 2004-07-02 Completed [facility] 00:00:00 [facility] DTAP 2004-07-02 Completed [facility] 00:00:00 [facility] MMR 2004-07-02 Completed [facility] 00:00:00 [facility] DTAP 2004-07-02 Completed [facility] 00:00:00 [facility] MMR 2004-07-02 Completed [facility] 00:00:00 [facility] DTAP 2004-07-02 Completed [facility] 00:00:00 [facility] MMR 2004-07-02 Completed [facility] 00:00:00 [facility] DTAP 2004-07-02 Completed [facility] 00:00:00 [facility] MMR 2004-07-02 Completed [facility] 00:00:00 [facility] DTAP 2004-07-02 Completed [facility] 00:00:00 [facility] MMR 2004-07-02 Completed [facility] 00:00:00 [facility] DTAP 2004-07-02 Completed [facility] 00:00:00 [facility] MMR 2004-07-02 Completed [facility] 00:00:00 [facility] DTAP 2004-07-02 Completed [facility] 00:00:00 [facility] MMR 2004-07-02 Completed [facility] 00:00:00 [facility] DTAP 2003-11-17 Completed [facility] 00:00:00 [facility] MMR 2003-11-17 Completed [facility] 00:00:00 [facility] Polio (IPV/OPV) 2003-11-17 Completed [facility] 00:00:00 [facility] Varicella 2003-11-17 Completed [facility] (varivax)(chicken 00:00:00 [facility]ox[facility] DTAP 2003-11-17 Completed [facility] 00:00:00 [facility] MMR 2003-11-17 Completed [facility] 00:00:00 [facility] Polio (IPV/OPV) 2003-11-17 Completed [facility] 00:00:00 [facility] Varicella 2003-11-17 Completed [facility] (varivax)(chicken 00:00:00 [facility]ox[facility] DTAP 2003-11-17 Completed [facility] 00:00:00 [facility] MMR 2003-11-17 Completed [facility] 00:00:00 [facility] Polio (IPV/OPV) 2003-11-17 Completed [facility] 00:00:00 [facility] Varicella 2003-11-17 Completed [facility] (varivax)(chicken 00:00:00 [facility] DTAP 2003-11-17 Completed [facility] 00:00:00 [facility] MMR 2003-11-17 Completed [facility] 00:00:00 [facility] Polio (IPV/OPV) 2003-11-17 Completed [facility] 00:00:00 [facility] Varicella 2003-11-17 Completed [facility] (varivax)(chicken 00:00:00 [facility]ox[facility] DTAP 2003-11-17 Completed [facility] 00:00:00 [facility] MMR 2003-11-17 Completed [facility] 00:00:00 [facility] Polio (IPV/OPV) 2003-11-17 Completed [facility] 00:00:00 [facility] Varicella 2003-11-17 Completed [facility] (varivax)(chicken 00:00:00 [facility]ox[facility] DTAP 2003-11-17 Completed [facility] 00:00:00 [facility] MMR 2003-11-17 Completed [facility] 00:00:00 [facility] Polio (IPV/OPV) 2003-11-17 Completed [facility] 00:00:00 [facility] Varicella 2003-11-17 Completed [facility] (varivax)(chicken 00:00:00 [facility] DTAP 2003-11-17 Completed [facility] 00:00:00 [facility] MMR 2003-11-17 Completed [facility] 00:00:00 [facility] Polio (IPV/OPV) 2003-11-17 Completed [facility] 00:00:00 [facility] Varicella 2003-11-17 Completed [facility] (varivax)(chicken 00:00:00 [facility] DTAP 2003-11-17 Completed [facility] 00:00:00 [facility] MMR 2003-11-17 Completed [facility] 00:00:00 [facility] Polio (IPV/OPV) 2003-11-17 Completed [facility] 00:00:00 [facility] Varicella 2003-11-17 Completed [facility] (varivax)(chicken 00:00:00 [facility] DTAP 2003-11-17 Completed [facility] 00:00:00 [facility] MMR 2003-11-17 Completed [facility] 00:00:00 [facility] Polio (IPV/OPV) 2003-11-17 Completed [facility] 00:00:00 [facility] Varicella 2003-11-17 Completed [facility] (varivax)(chicken 00:00:00 [facility] DTAP 2003-11-17 Completed [facility] 00:00:00 [facility] MMR 2003-11-17 Completed [facility] 00:00:00 [facility] Polio (IPV/OPV) 2003-11-17 Completed [facility] 00:00:00 [facility] Varicella 2003-11-17 Completed [facility] (varivax)(chicken 00:00:00 [facility] DTAP 2003-11-17 Completed [facility] 00:00:00 [facility] MMR 2003-11-17 Completed [facility] 00:00:00 [facility] Polio (IPV/OPV) 2003-11-17 Completed [facility] 00:00:00 [facility] Varicella 2003-11-17 Completed [facility] (varivax)(chicken 00:00:00 [facility] DTAP 2003-11-17 Completed [facility] 00:00:00 [facility] MMR 2003-11-17 Completed [facility] 00:00:00 [facility] Polio (IPV/OPV) 2003-11-17 Completed [facility] 00:00:00 [facility] Varicella 2003-11-17 Completed [facility] (varivax)(chicken 00:00:00 [facility] DTAP 2003-11-17 Completed [facility] 00:00:00 [facility] MMR 2003-11-17 Completed [facility] 00:00:00 [facility] Polio (IPV/OPV) 2003-11-17 Completed [facility] 00:00:00 [facility] Varicella 2003-11-17 Completed [facility] (varivax)(chicken 00:00:00 [facility] DTAP 2003-11-17 Completed [facility] 00:00:00 [facility] MMR 2003-11-17 Completed [facility] 00:00:00 [facility] Polio (IPV/OPV) 2003-11-17 Completed [facility] 00:00:00 [facility] Varicella 2003-11-17 Completed [facility] (varivax)(chicken 00:00:00 [facility] DTAP 2003-11-17 Completed [facility] 00:00:00 [facility] MMR 2003-11-17 Completed [facility] 00:00:00 [facility] Polio (IPV/OPV) 2003-11-17 Completed [facility] 00:00:00 [facility] Varicella 2003-11-17 Completed [facility] (varivax)(chicken 00:00:00 [facility] DTAP 2003-11-17 Completed [facility] 00:00:00 [facility] MMR 2003-11-17 Completed [facility] 00:00:00 [facility] Polio (IPV/OPV) 2003-11-17 Completed [facility] 00:00:00 [facility] Varicella 2003-11-17 Completed [facility] (varivax)(chicken 00:00:00 [facility] DTAP 2003-11-17 Completed [facility] 00:00:00 [facility] MMR 2003-11-17 Completed [facility] 00:00:00 [facility] Polio (IPV/OPV) 2003-11-17 Completed [facility] 00:00:00 [facility] Varicella 2003-11-17 Completed [facility] (varivax)(chicken 00:00:00 [facility] DTAP 2003-11-17 Completed [facility] 00:00:00 [facility] MMR 2003-11-17 Completed [facility] 00:00:00 [facility] Polio (IPV/OPV) 2003-11-17 Completed [facility] 00:00:00 [facility] Varicella 2003-11-17 Completed [facility] 00:[facility] [place] [facility] DTAP 2003-11-17 Completed [facility] 00:00:00 [facility] MMR 2003-11-17 Completed [facility] 00:00:00 [facility] Polio (IPV/OPV) 2003-11-17 Completed [facility] 00:00:00 [facility] Varicella 2003-11-17 Completed [facility] 00:00:00 [place] [facility] DTAP 2003-11-17 Completed [facility] 00:00:00 [facility] MMR 2003-11-17 Completed [facility] 00:00:00 [facility] Polio (IPV/OPV) 2003-11-17 Completed [facility] 00:00:00 [facility] Varicella 2003-11-17 Completed [facility] 00:00:00 [place] [facility] DTAP 2003-11-17 Completed [facility] 00:00:00 [facility] MMR 2003-11-17 Completed [facility] 00:00:00 [facility] Polio (IPV/OPV) 2003-11-17 Completed [facility] 00:00:00 [facility] Varicella 2003-11-17 Completed [facility] ([facility] 00:00:00 [place] [facility] DTAP 2003-11-17 Completed [facility] 00:00:00 [facility] MMR 2003-11-17 Completed [facility] 00:00:00 [facility] Polio (IPV/OPV) 2003-11-17 Completed [facility] 00:00:00 [facility] Varicella 2003-11-17 Completed [facility] ([facility] 00:00:00 [place] [facility] DTAP 2003-11-17 Completed [facility] 00:00:00 [facility] MMR 2003-11-17 Completed [facility] 00:00:00 [facility] Polio (IPV/OPV) 2003-11-17 Completed [facility] 00:00:00 [facility] Varicella 2003-11-17 Completed [facility] ([facility] 00:00:00 [place] [facility] DTAP 2003-11-17 Completed [facility] 00:00:00 [facility] MMR 2003-11-17 Completed [facility] 00:00:00 [facility] Polio (IPV/OPV) 2003-11-17 Completed [facility] 00:00:00 [facility] Varicella 2003-11-17 Completed [facility] ([facility]ivax)(chicken 00:00:[address] [facility] edical pox) Branch DTAP 2003-11-17 Completed [facility] 00:00:00 [facility] MMR 2003-11-17 Completed [facility] 00:00:00 [facility] Polio (IPV/OPV) 2003-11-17 Completed [facility] 00:00:00 [facility] Varicella 2003-11-17 Completed [facility] ([facility]ax)([facility]icken 00:00:[address] [facility] edical pox) Branch DTAP 2003-11-17 Completed [facility] 00:00:00 [facility] MMR 2003-11-17 Completed [facility] 00:00:00 [facility] Polio (IPV/OPV) 2003-11-17 Completed [facility] 00:00:00 [facility] Varicella 2003-11-17 Completed [facility] 00:00:00 [place] [facility] DTAP 2003-11-17 Completed [facility] 00:00:00 [facility] MMR 2003-11-17 Completed [facility] 00:00:00 [facility] Polio (IPV/OPV) 2003-11-17 Completed [facility] 00:00:00 [facility] Varicella 2003-11-17 Completed [facility] (varivax)(chicken 00:00:[address] [facility] edical pox) Branch DTAP 2003-11-17 Completed [facility] 00:00:00 [facility] MMR 2003-11-17 Completed [facility] 00:00:00 [facility] Polio (IPV/OPV) 2003-11-17 Completed [facility] 00:00:00 [facility] Varicella 2003-11-17 Completed [facility] 00:00:00 [place] [facility] DTAP 2003-11-17 Completed [facility] 00:00:00 [facility] MMR 2003-11-17 Completed [facility] 00:00:00 [facility] Polio (IPV/OPV) 2003-11-17 Completed [facility] 00:00:00 [facility] Varicella 2003-11-17 Completed [facility] ([facility] 00:00:00 [place] [facility] DTAP 2003-11-17 Completed [facility] 00:00:00 [facility] MMR 2003-11-17 Completed [facility] 00:00:00 [facility] Polio (IPV/OPV) 2003-11-17 Completed [facility] 00:00:00 [facility] Varicella 2003-11-17 Completed [facility] ([facility] 00:00:00 [place] [facility] DTAP 2003-11-17 Completed [facility] 00:00:00 [facility] MMR 2003-11-17 Completed [facility] 00:00:00 [facility] Polio (IPV/OPV) 2003-11-17 Completed [facility] 00:00:00 [facility] Varicella 2003-11-17 Completed [facility] ([facility] 00:00:00 [place] [facility] DTAP 2003-11-17 Completed [facility] 00:00:00 [facility] MMR 2003-11-17 Completed [facility] 00:00:00 [facility] Polio (IPV/OPV) 2003-11-17 Completed [facility] 00:00:00 [facility] Varicella 2003-11-17 Completed [facility] ([facility]ax[facility] 00:00:00 [place] [facility] DTAP 2003-11-17 Completed [facility] 00:00:00 [facility] MMR 2003-11-17 Completed [facility] 00:00:00 [facility] Polio (IPV/OPV) 2003-11-17 Completed [facility] 00:00:00 [facility] Varicella 2003-11-17 Completed [facility] ([facility]ax[facility] 00:00:00 [place] [facility] DTAP 2003-11-17 Completed [facility] 00:00:00 [facility] MMR 2003-11-17 Completed [facility] 00:00:00 [facility] Polio (IPV/OPV) 2003-11-17 Completed [facility] 00:00:00 [facility] Varicella 2003-11-17 Completed [facility] ([facility]ax[facility] 00:00:00 [place] [facility] DTAP 2003-11-17 Completed [facility] 00:00:00 [facility] MMR 2003-11-17 Completed [facility] 00:00:00 [facility] Polio (IPV/OPV) 2003-11-17 Completed [facility] 00:00:00 [facility] Varicella 2003-11-17 Completed [facility] ([facility]ax[facility] 00:00:00 [place] [facility] DTAP 2003-11-17 Completed [facility] 00:00:00 [facility] MMR 2003-11-17 Completed [facility] 00:00:00 [facility] Polio (IPV/OPV) 2003-11-17 Completed [facility] 00:00:00 [facility] Varicella 2003-11-17 Completed [facility] ([facility]ax[facility] 00:00:00 [place] [facility] DTAP 2003-11-17 Completed [facility] 00:00:00 [facility] MMR 2003-11-17 Completed [facility] 00:00:00 [facility] Polio (IPV/OPV) 2003-11-17 Completed [facility] 00:00:00 [facility] Varicella 2003-11-17 Completed [facility] ([facility]ax[facility] 00:00:00 [place] [facility] DTAP 2003-11-17 Completed [facility] 00:00:00 [facility] MMR 2003-11-17 Completed [facility] 00:00:00 [facility] Polio (IPV/OPV) 2003-11-17 Completed [facility] 00:00:00 [facility] Varicella 2003-11-17 Completed [facility] ([facility]ax[facility] 00:00:00 [place] [facility] DTAP 2003-11-17 Completed [facility] 00:00:00 [facility] MMR 2003-11-17 Completed [facility] 00:00:00 [facility] Polio (IPV/OPV) 2003-11-17 Completed [facility] 00:00:00 [facility] Varicella 2003-11-17 Completed [facility] ([facility] 00:00:00 [place] [facility] DTAP 2003-11-17 Completed [facility] 00:00:00 [facility] MMR 2003-11-17 Completed [facility] 00:00:00 [facility] Polio (IPV/OPV) 2003-11-17 Completed [facility] 00:00:00 [facility] Varicella 2003-11-17 Completed [facility] ([facility]ax[facility] 00:00:00 [place] [facility] DTAP 2003-11-17 Completed [facility] 00:00:00 [facility] MMR 2003-11-17 Completed [facility] 00:00:00 [facility] Polio (IPV/OPV) 2003-11-17 Completed [facility] 00:00:00 [facility] Varicella 2003-11-17 Completed [facility] ([facility] 00:00:00 [place] [facility] DTAP 2003-11-17 Completed [facility] 00:00:00 [facility] MMR 2003-11-17 Completed [facility] 00:00:00 [facility] Polio (IPV/OPV) 2003-11-17 Completed [facility] 00:00:00 [facility] Varicella 2003-11-17 Completed [facility] ([facility]ax[facility] 00:00:00 [place] [facility] DTAP 2003-11-17 Completed [facility] 00:00:00 [facility] MMR 2003-11-17 Completed [facility] 00:00:00 [facility] Polio (IPV/OPV) 2003-11-17 Completed [facility] 00:00:00 [facility] Varicella 2003-11-17 Completed [facility] ([facility]ax[facility] 00:00:00 [place] [facility] DTAP 2003-11-17 Completed [facility] 00:00:00 [facility] MMR 2003-11-17 Completed [facility] 00:00:00 [facility] Polio (IPV/OPV) 2003-11-17 Completed [facility] 00:00:00 [facility] Varicella 2003-11-17 Completed [facility] ([facility]ax[facility] 00:00:00 [place] [facility] DTAP 2003-11-17 Completed [facility] 00:00:00 [facility] MMR 2003-11-17 Completed [facility] 00:00:00 [facility] Polio (IPV/OPV) 2003-11-17 Completed [facility] 00:00:00 [facility] Varicella 2003-11-17 Completed [facility] (varivax[facility] 00:00:00 [place] [facility] DTAP 2003-11-17 Completed [facility] 00:00:00 [facility] MMR 2003-11-17 Completed [facility] 00:00:00 [facility] Polio (IPV/OPV) 2003-11-17 Completed [facility] 00:00:00 [facility] Varicella 2003-11-17 Completed [facility] (varivax)([facility] 00:00:00 [place] [facility] DTAP 2003-11-17 Completed [facility] 00:00:00 [facility] MMR 2003-11-17 Completed [facility] 00:00:00 [facility] Polio (IPV/OPV) 2003-11-17 Completed [facility] 00:00:00 [facility] Varicella 2003-11-17 Completed [facility] (varivax)([facility] 00:00:00 [place] [facility] DTAP 2003-11-17 Completed [facility] 00:00:00 [facility] MMR 2003-11-17 Completed [facility] 00:00:00 [facility] Polio (IPV/OPV) 2003-11-17 Completed [facility] 00:00:00 [facility] Varicella 2003-11-17 Completed [facility] (varivax)([facility] 00:00:00 [place] [facility] DTAP 2003-11-17 Completed [facility] 00:00:00 [facility] MMR 2003-11-17 Completed [facility] 00:00:00 [facility] Polio (IPV/OPV) 2003-11-17 Completed [facility] 00:00:00 [facility] Varicella 2003-11-17 Completed [facility] (varivax[facility] 00:00:00 [place] [facility] DTAP 2003-11-17 Completed [facility] 00:00:00 [facility] MMR 2003-11-17 Completed [facility] 00:00:00 [facility] Polio (IPV/OPV) 2003-11-17 Completed [facility] 00:00:00 [facility] Varicella 2003-11-17 Completed [facility] (varivax)([facility] 00:00:00 [place] [facility] DTAP 2003-11-17 Completed [facility] 00:00:00 [facility] MMR 2003-11-17 Completed [facility] 00:00:00 [facility] Polio (IPV/OPV) 2003-11-17 Completed [facility] 00:00:00 [facility] Varicella 2003-11-17 Completed [facility] (varivax)([facility] 00:00:00 [place] [facility] DTAP 2003-11-17 Completed [facility] 00:00:00 [facility] MMR 2003-11-17 Completed [facility] 00:00:00 [facility] Polio (IPV/OPV) 2003-11-17 Completed [facility] 00:00:00 [facility] Varicella 2003-11-17 Completed [facility] (varivax)([facility]icken 00:00:00 [place] [facility] DTAP 2003-11-17 Completed [facility] 00:00:00 [facility] MMR 2003-11-17 Completed [facility] 00:00:00 [facility] Polio (IPV/OPV) 2003-11-17 Completed [facility] 00:00:00 [facility] Varicella 2003-11-17 Completed [facility] (varivax)(chicken 00:00:[address] [facility] edical pox) Branch DTAP 2003-11-17 Completed [facility] 00:00:00 [facility] MMR 2003-11-17 Completed [facility] 00:00:00 [facility] Polio (IPV/OPV) 2003-11-17 Completed [facility] 00:00:00 [facility] Varicella 2003-11-17 Completed [facility] (varivax)([facility]icken 00:00:00 [place] [facility] DTAP 2003-11-17 Completed [facility] 00:00:00 [facility] MMR 2003-11-17 Completed [facility] 00:00:00 [facility] Polio (IPV/OPV) 2003-11-17 Completed [facility] 00:00:00 [facility] Varicella 2003-11-17 Completed [facility] (varivax)([facility] 00:00:00 [place] [facility] DTAP 2003-11-17 Completed [facility] 00:00:00 [facility] MMR 2003-11-17 Completed [facility] 00:00:00 [facility] Polio (IPV/OPV) 2003-11-17 Completed [facility] 00:00:00 [facility] Varicella 2003-11-17 Completed [facility] (varivax)([facility]icken 00:00:00 [place] [facility] DTAP 2003-11-17 Completed [facility] 00:00:00 [facility] MMR 2003-11-17 Completed [facility] 00:00:00 [facility] Polio (IPV/OPV) 2003-11-17 Completed [facility] 00:00:00 [facility] Varicella 2003-11-17 Completed [facility] (varivax)([facility]icken 00:00:00 [place] [facility] DTAP 2003-11-17 Completed [facility] 00:00:00 [facility] MMR 2003-11-17 Completed [facility] 00:00:00 [facility] Polio (IPV/OPV) 2003-11-17 Completed [facility] 00:00:00 [facility] Varicella 2003-11-17 Completed [facility] (varivax)([facility]icken 00:00:00 [place] [facility] DTAP 2003-11-17 Completed [facility] 00:00:00 [facility] MMR 2003-11-17 Completed [facility] 00:00:00 [facility] Polio (IPV/OPV) 2003-11-17 Completed [facility] 00:00:00 [facility] Varicella 2003-11-17 Completed [facility] (varivax)([facility]icken 00:00:00 [place] [facility] DTAP 2003-11-17 Completed [facility] 00:00:00 [facility] MMR 2003-11-17 Completed [facility] 00:00:00 [facility] Polio (IPV/OPV) 2003-11-17 Completed [facility] 00:00:00 [facility] Varicella 2003-11-17 Completed [facility] (varivax)(chicken 00:00:00 [place] [facility] DTAP 2003-11-17 Completed [facility] 00:00:00 [facility] MMR 2003-11-17 Completed [facility] 00:00:00 [facility] Polio (IPV/OPV) 2003-11-17 Completed [facility] 00:00:00 [facility] Varicella 2003-11-17 Completed [facility] (varivax)([facility]icken 00:00:00 [place] [facility] DTAP 2003-11-17 Completed [facility] 00:00:00 [facility] MMR 2003-11-17 Completed [facility] 00:00:00 [facility] Polio (IPV/OPV) 2003-11-17 Completed [facility] 00:00:00 [facility] Varicella 2003-11-17 Completed [facility] (varivax)([facility]icken 00:00:00 [place] [facility] DTAP 2003-11-17 Completed [facility] 00:00:00 [facility] MMR 2003-11-17 Completed [facility] 00:00:00 [facility] Polio (IPV/OPV) 2003-11-17 Completed [facility] 00:00:00 [facility] Varicella 2003-11-17 Completed [facility] (varivax)([facility]icken 00:00:00 [place] [facility] DTAP 2003-11-17 Completed [facility] 00:00:00 [facility] MMR 2003-11-17 Completed [facility] 00:00:00 [facility] Polio (IPV/OPV) 2003-11-17 Completed [facility] 00:00:00 [facility] Varicella 2003-11-17 Completed [facility] (varivax[facility] 00:00:00 [place] [facility] DTAP 2003-11-17 Completed [facility] 00:00:00 [facility] MMR 2003-11-17 Completed [facility] 00:00:00 [facility] Polio (IPV/OPV) 2003-11-17 Completed [facility] 00:00:00 [facility] Varicella 2003-11-17 Completed [facility] (varivax)([facility]icken 00:00:00 [place] [facility] DTAP 2003-11-17 Completed [facility] 00:00:00 [facility] MMR 2003-11-17 Completed [facility] 00:00:00 [facility] Polio (IPV/OPV) 2003-11-17 Completed [facility] 00:00:00 [facility] Varicella 2003-11-17 Completed [facility] (varivax)([facility]icken 00:00:00 [place] [facility] DTAP 2003-11-17 Completed [facility] 00:00:00 [facility] MMR 2003-11-17 Completed [facility] 00:00:00 [facility] Polio (IPV/OPV) 2003-11-17 Completed [facility] 00:00:00 [facility] Varicella 2003-11-17 Completed [facility] (varivax)([facility] 00:00:00 [place] [facility] DTAP 2003-11-17 Completed [facility] 00:00:00 [facility] MMR 2003-11-17 Completed [facility] 00:00:00 [facility] Polio (IPV/OPV) 2003-11-17 Completed [facility] 00:00:00 [facility] Varicella 2003-11-17 Completed [facility] (varivax)([facility] 00:00:00 [place] [facility] DTAP 2003-11-17 Completed [facility] 00:00:00 [facility] MMR 2003-11-17 Completed [facility] 00:00:00 [facility] Polio (IPV/OPV) 2003-11-17 Completed [facility] 00:00:00 [facility] Varicella 2003-11-17 Completed [facility] (varivax)([facility] 00:00:00 [place] [facility] DTAP 2003-11-17 Completed [facility] 00:00:00 [facility] MMR 2003-11-17 Completed [facility] 00:00:00 [facility] Polio (IPV/OPV) 2003-11-17 Completed [facility] 00:00:00 [facility] Varicella 2003-11-17 Completed [facility] (varivax)([facility]icken 00:00:00 [place] [facility] DTAP 2003-11-17 Completed [facility] 00:00:00 [facility] MMR 2003-11-17 Completed [facility] 00:00:00 [facility] Polio (IPV/OPV) 2003-11-17 Completed [facility] 00:00:00 [facility] Varicella 2003-11-17 Completed [facility] (varivax)([facility] 00:00:00 [place] [facility] DTAP 2003-11-17 Completed [facility] 00:00:00 [facility] MMR 2003-11-17 Completed [facility] 00:00:00 [facility] Polio (IPV/OPV) 2003-11-17 Completed [facility] 00:00:00 [facility] Varicella 2003-11-17 Completed [facility] (varivax)([facility] 00:00:00 [place] [facility] DTAP 2003-11-17 Completed [facility] 00:00:00 [facility] MMR 2003-11-17 Completed [facility] 00:00:00 [facility] Polio (IPV/OPV) 2003-11-17 Completed [facility] 00:00:00 [facility] Varicella 2003-11-17 Completed [facility] (varivax)([facility] 00:00:00 [place] [facility] DTAP 2003-11-17 Completed [facility] 00:00:00 [facility] MMR 2003-11-17 Completed [facility] 00:00:00 [facility] Polio (IPV/OPV) 2003-11-17 Completed [facility] 00:00:00 [facility] Varicella 2003-11-17 Completed [facility] (varivax)([facility] 00:00:00 [place] [facility] DTAP 2003-11-17 Completed [facility] 00:00:00 [facility] MMR 2003-11-17 Completed [facility] 00:00:00 [facility] Polio (IPV/OPV) 2003-11-17 Completed [facility] 00:00:00 [facility] Varicella 2003-11-17 Completed [facility] (varivax)([facility] 00:00:00 [place] [facility] DTAP 2003-11-17 Completed [facility] 00:00:00 [facility] MMR 2003-11-17 Completed [facility] 00:00:00 [facility] Polio (IPV/OPV) 2003-11-17 Completed [facility] 00:00:00 [facility] Varicella 2003-11-17 Completed [facility] (varivax)([facility] 00:00:00 [place] [facility] DTAP 2003-11-17 Completed [facility] 00:00:00 [facility] MMR 2003-11-17 Completed [facility] 00:00:00 [facility] Polio (IPV/OPV) 2003-11-17 Completed [facility] 00:00:00 [facility] Varicella 2003-11-17 Completed [facility] (varivax)([facility] 00:00:00 [place] [facility] DTAP 2003-11-17 Completed [facility] 00:00:00 [facility] MMR 2003-11-17 Completed [facility] 00:00:00 [facility] Polio (IPV/OPV) 2003-11-17 Completed [facility] 00:00:00 [facility] Varicella 2003-11-17 Completed [facility] (varivax)([facility] 00:00:00 [place] [facility] DTAP 2003-11-17 Completed [facility] 00:00:00 [facility] MMR 2003-11-17 Completed [facility] 00:00:00 [facility] Polio (IPV/OPV) 2003-11-17 Completed [facility] 00:00:00 [facility] Varicella 2003-11-17 Completed [facility] (varivax)([facility] 00:00:00 [place] [facility] DTAP 2003-11-17 Completed [facility] 00:00:00 [facility] MMR 2003-11-17 Completed [facility] 00:00:00 [facility] Polio (IPV/OPV) 2003-11-17 Completed [facility] 00:00:00 [facility] Varicella 2003-11-17 Completed [facility] (varivax)([facility] 00:00:00 [place] [facility] DTAP 2003-11-17 Completed [facility] 00:00:00 [facility] MMR 2003-11-17 Completed [facility] 00:00:00 [facility] Polio (IPV/OPV) 2003-11-17 Completed [facility] 00:00:00 [facility] Varicella 2003-11-17 Completed [facility] (varivax)([facility] 00:00:00 [place] [facility] DTAP 2003-11-17 Completed [facility] 00:00:00 [facility] MMR 2003-11-17 Completed [facility] 00:00:00 [facility] Polio (IPV/OPV) 2003-11-17 Completed [facility] 00:00:00 [facility] Varicella 2003-11-17 Completed [facility] (varivax)([facility] 00:00:00 [place] [facility] DTAP 2003-11-17 Completed [facility] 00:00:00 [facility] MMR 2003-11-17 Completed [facility] 00:00:00 [facility] Polio (IPV/OPV) 2003-11-17 Completed [facility] 00:00:00 [facility] Varicella 2003-11-17 Completed [facility] ([facility]ax[facility] 00:00:00 [place] [facility] DTAP 2003-11-17 Completed [facility] 00:00:00 [facility] MMR 2003-11-17 Completed [facility] 00[facility]00:00 [facility] Polio (IPV/OPV) 2003-11-17 Completed [facility] 00:00:00 [facility] Varicella 2003-11-17 Completed [facility] ([facility]ax[facility] 00:00:00 [place] [facility] DTAP 2003-11-17 Completed [facility] 00[facility]00 [facility] System MMR 2003-11-17 Completed [facility] 00:00:00 [facility] Polio (IPV/OPV) 2003-11-17 Completed [facility] 00:00:00 [facility] Varicella 2003-11-17 Completed [facility] (varivax)(chicken 00:00:00 [place] [facility] DTAP 2003-11-17 Completed [facility] 00:00:00 [facility] MMR 2003-11-17 Completed [facility] 00:00:00 [facility] Polio (IPV/OPV) 2003-11-17 Completed [facility] 00:00:00 [facility] Varicella 2003-11-17 Completed [facility] (varivax)(chicken 00:00:00 [place] [facility] DTAP 2003-11-17 Completed [facility] 00:00:00 [facility] MMR 2003-11-17 Completed [facility] 00:00:00 [facility] Polio (IPV/OPV) 2003-11-17 Completed [facility] 00:00:00 [facility] Varicella 2003-11-17 Completed [facility] (varivax)(chicken 00:00:00 [place] [facility] DTAP 2003-11-17 Completed [facility] 00:00:00 [facility] MMR 2003-11-17 Completed [facility] 00:00:00 [facility] Polio (IPV/OPV) 2003-11-17 Completed [facility] 00:00:00 [facility] Varicella 2003-11-17 Completed [facility] (varivax)(chicken 00:00:00 [place] [facility] DTAP 2003-11-17 Completed [facility] 00:00:00 [facility] MMR 2003-11-17 Completed [facility] 00:00:00 [facility] Polio (IPV/OPV) 2003-11-17 Completed [facility] 00:00:00 [facility] Varicella 2003-11-17 Completed [facility] (varivax)(chicken 00:00:00 [place] [facility] DTAP 2003-11-17 Completed [facility] 00:00:00 [facility] MMR 2003-11-17 Completed [facility] 00:00:00 [facility] Polio (IPV/OPV) 2003-11-17 Completed [facility] 00:00:00 [facility] Varicella 2003-11-17 Completed [facility] (varivax)(chicken 00:00:00 [place] [facility] DTAP 2003-11-17 Completed [facility] 00:00:00 [facility] MMR 2003-11-17 Completed [facility] 00:00:00 [facility] Polio (IPV/OPV) 2003-11-17 Completed [facility] 00:00:00 [facility] Varicella 2003-11-17 Completed [facility] (varivax)(chicken 00:00:00 [place] [facility] DTAP 2003-11-17 Completed [facility] 00:00:00 [facility] MMR 2003-11-17 Completed [facility] 00:00:00 [facility] Polio (IPV/OPV) 2003-11-17 Completed [facility] 00:00:00 [facility] Varicella 2003-11-17 Completed [facility] (varivax)(chicken 00:00:00 [place] [facility] DTAP 2003-11-17 Completed [facility] 00:00:00 [facility] MMR 2003-11-17 Completed [facility] 00:00:00 [facility] Polio (IPV/OPV) 2003-11-17 Completed [facility] 00:00:00 [facility] Varicella 2003-11-17 Completed [facility] (varivax)(chicken 00:00:00 [place] [facility] DTAP 2003-11-17 Completed [facility] 00:00:00 [facility] MMR 2003-11-17 Completed [facility] 00:00:00 [facility] Polio (IPV/OPV) 2003-11-17 Completed [facility] 00:00:00 [facility] Varicella 2003-11-17 Completed [facility] (varivax)(chicken 00:00:00 [place] [facility] DTAP 2003-11-17 Completed [facility] 00:00:00 [facility] MMR 2003-11-17 Completed [facility] 00:00:00 [facility] Polio (IPV/OPV) 2003-11-17 Completed [facility] 00:00:00 [facility] Varicella 2003-11-17 Completed [facility] (varivax)(chicken 00:00:00 [place] [facility] DTAP 2003-11-17 Completed [facility] 00:00:00 [facility] MMR 2003-11-17 Completed [facility] 00:00:00 [facility] Polio (IPV/OPV) 2003-11-17 Completed [facility] 00:00:00 [facility] Varicella 2003-11-17 Completed [facility] (varivax)(chicken 00:00:00 [place] [facility] DTAP 2003-11-17 Completed [facility] 00:00:00 [facility] MMR 2003-11-17 Completed [facility] 00:00:00 [facility] Polio (IPV/OPV) 2003-11-17 Completed [facility] 00:00:00 [facility] Varicella 2003-11-17 Completed [facility] (varivax)(chicken 00:00:00 [place] [facility] DTAP 2003-11-17 Completed [facility] 00:00:00 [facility] MMR 2003-11-17 Completed [facility] 00:00:00 [facility] Polio (IPV/OPV) 2003-11-17 Completed [facility] 00:00:00 [facility] Varicella 2003-11-17 Completed [facility] (varivax)(chicken 00:00:[address] [facility] edical pox) Branch DTAP 2003-11-17 Completed [facility] 00:00:00 [facility] MMR 2003-11-17 Completed [facility] 00:00:00 [facility] Polio (IPV/OPV) 2003-11-17 Completed [facility] 00:00:00 [facility] Varicella 2003-11-17 Completed [facility] (varivax)(chicken 00:00:00 [place] [facility] DTAP 2003-11-17 Completed [facility] 00:00:00 [facility] MMR 2003-11-17 Completed [facility] 00:00:00 [facility] Polio (IPV/OPV) 2003-11-17 Completed [facility] 00:00:00 [facility] Varicella 2003-11-17 Completed [facility] (varivax)(chicken 00:00:00 [place] [facility] DTAP 2003-11-17 Completed [facility] 00:00:00 [facility] MMR 2003-11-17 Completed [facility] 00:00:00 [facility] Polio (IPV/OPV) 2003-11-17 Completed [facility] 00:00:00 [facility] Varicella 2003-11-17 Completed [facility] (varivax)(chicken 00:00:00 [place] [facility] DTAP 2003-11-17 Completed [facility] 00:00:00 [facility] MMR 2003-11-17 Completed [facility] 00:00:00 [facility] Polio (IPV/OPV) 2003-11-17 Completed [facility] 00:00:00 [facility] Varicella 2003-11-17 Completed [facility] (varivax)(chicken 00:00:00 [place] [facility] DTAP 2003-11-17 Completed [facility] 00:00:00 [facility] MMR 2003-11-17 Completed [facility] 00:00:00 [facility] Polio (IPV/OPV) 2003-11-17 Completed [facility] 00:00:00 [facility] Varicella 2003-11-17 Completed [facility] (varivax)(chicken 00:00:00 [place] [facility] DTAP 2003-11-17 Completed [facility] 00:00:00 [facility] MMR 2003-11-17 Completed [facility] 00:00:00 [facility] Polio (IPV/OPV) 2003-11-17 Completed [facility] 00:00:00 [facility] Varicella 2003-11-17 Completed [facility] (varivax)(chicken 00:00:00 [place] [facility] DTAP 2003-11-17 Completed [facility] 00:00:00 [facility] MMR 2003-11-17 Completed [facility] 00:00:00 [facility] Polio (IPV/OPV) 2003-11-17 Completed [facility] 00:00:00 [facility] Varicella 2003-11-17 Completed [facility] (varivax)(chicken 00:00:00 [place] [facility] DTAP 2003-11-17 Completed [facility] 00:00:00 [facility] MMR 2003-11-17 Completed [facility] 00:00:00 [facility] Polio (IPV/OPV) 2003-11-17 Completed [facility] 00:00:00 [facility] Varicella 2003-11-17 Completed [facility] (varivax)(chicken 00:00:00 [place] [facility] DTAP 1999-08-09 Completed [facility] 00:00:00 [facility] HIB 4 Dose Schedule 1999-08-09 Completed [facility]ive rsity of 00:00:00 [facility] Polio (IPV/OPV) 1999-08-09 Completed [facility] 00:00:00 [facility] DTAP 1999-08-09 Completed [facility] 00:00:00 [facility] HIB 4 Dose Schedule 1999-08-09 Completed [facility] 00:00:00 [facility] Polio (IPV/OPV) 1999-08-09 Completed [facility] 00:00:00 [facility] DTAP 1999-08-09 Completed [facility] 00:00:00 [facility] HIB 4 Dose Schedule 1999-08-09 Completed [facility]ive rsity of 00:00:00 [facility] Polio (IPV/OPV) 1999-08-09 Completed [facility] 00:00:00 [facility] DTAP 1999-08-09 Completed [facility] 00:00:00 [facility] HIB 4 Dose Schedule 1999-08-09 Completed [facility]ive rsity of 00:00:00 [facility] Polio (IPV/OPV) 1999-08-09 Completed [facility] 00:00:00 [facility] DTAP 1999-08-09 Completed [facility] 00:00:00 [facility] HIB 4 Dose Schedule 1999-08-09 Completed [facility]ive rsity of 00:00:00 [facility] Polio (IPV/OPV) 1999-08-09 Completed [facility] 00:00:00 [facility] DTAP 1999-08-09 Completed [facility] 00:00:00 [facility] HIB 4 Dose Schedule 1999-08-09 Completed [facility]ive rsity of 00:00:00 [facility] Polio (IPV/OPV) 1999-08-09 Completed [facility] 00:00:00 [facility] DTAP 1999-08-09 Completed [facility] 00:00:00 [facility] HIB 4 Dose Schedule 1999-08-09 Completed [facility]ive rsity of 00:00:00 [facility] Polio (IPV/OPV) 1999-08-09 Completed [facility] 00:00:00 [facility] DTAP 1999-08-09 Completed [facility] 00:00:00 [facility] HIB 4 Dose Schedule 1999-08-09 Completed [facility]ive rsity of 00:00:00 [facility] Polio (IPV/OPV) 1999-08-09 Completed [facility] 00:00:00 [facility] DTAP 1999-08-09 Completed [facility] 00:00:00 [facility] HIB 4 Dose Schedule 1999-08-09 Completed [facility]ive rsity of 00:00:00 [facility] Polio (IPV/OPV) 1999-08-09 Completed [facility] 00:00:00 [facility] DTAP 1999-08-09 Completed [facility] 00:00:00 [facility] HIB 4 Dose Schedule 1999-08-09 Completed [facility]ive rsity of 00:00:00 [facility] Polio (IPV/OPV) 1999-08-09 Completed [facility] 00:00:00 [facility] DTAP 1999-08-09 Completed [facility] 00:00:00 [facility] HIB 4 Dose Schedule 1999-08-09 Completed [facility]ive rsity of 00:00:00 [facility] Polio (IPV/OPV) 1999-08-09 Completed [facility] 00:00:00 [facility] DTAP 1999-08-09 Completed [facility] 00:00:00 [facility] HIB 4 Dose Schedule 1999-08-09 Completed [facility]ive rsity of 00:00:00 [facility] Polio (IPV/OPV) 1999-08-09 Completed [facility] 00:00:00 [facility] DTAP 1999-08-09 Completed [facility] 00:00:00 [facility] HIB 4 Dose Schedule 1999-08-09 Completed [facility]ive rsity of 00:00:00 [facility] Polio (IPV/OPV) 1999-08-09 Completed [facility] 00:00:00 [facility] DTAP 1999-08-09 Completed [facility] 00:00:00 [facility] HIB 4 Dose Schedule 1999-08-09 Completed [facility]ive rsity of 00:00:00 [facility] Polio (IPV/OPV) 1999-08-09 Completed [facility] 00:00:00 [facility] DTAP 1999-08-09 Completed [facility] 00:00:00 [facility] HIB 4 Dose Schedule 1999-08-09 Completed [facility]ive rsity of 00:00:00 [facility] Polio (IPV/OPV) 1999-08-09 Completed [facility] 00:00:00 [facility] DTAP 1999-08-09 Completed [facility] 00:00:00 [facility] HIB 4 Dose Schedule 1999-08-09 Completed [facility]ive rsity of 00:00:00 [facility] Polio (IPV/OPV) 1999-08-09 Completed [facility] 00:00:00 [facility] DTAP 1999-08-09 Completed [facility] 00:00:00 [facility] HIB 4 Dose Schedule 1999-08-09 Completed [facility]ive rsity [facility] 00:00:00 [facility] Polio (IPV/OPV) 1999-08-09 Completed [facility] 00:00:00 [facility] DTAP 1999-08-09 Completed [facility] 00:00:00 [facility] HIB 4 Dose Schedule 1999-08-09 Completed Unive rsity of 00:00:00 [facility] Polio (IPV/OPV) 1999-08-09 Completed [facility] 00:00:00 [facility] DTAP 1999-08-09 Completed [facility] 00:00:00 [facility] HIB 4 Dose Schedule 1999-08-09 Completed Unive rsity of 00:00:00 [facility] Polio (IPV/OPV) 1999-08-09 Completed [facility] 00:00:00 [facility] DTAP 1999-08-09 Completed [facility] 00:00:00 [facility] HIB 4 Dose Schedule 1999-08-09 Completed Unive rsity of 00:00:00 [facility] Polio (IPV/OPV) 1999-08-09 Completed [facility] 00:00:00 [facility] DTAP 1999-08-09 Completed [facility] 00:00:00 [facility] HIB 4 Dose Schedule 1999-08-09 Completed Unive rsity of 00:00:00 [facility] Polio (IPV/OPV) 1999-08-09 Completed [facility] 00:00:00 [facility] DTAP 1999-08-09 Completed [facility] 00:00:00 [facility] HIB 4 Dose Schedule 1999-08-09 Completed Unive rsity of 00:00:00 [facility] Polio (IPV/OPV) 1999-08-09 Completed [facility] 00:00:00 [facility] DTAP 1999-08-09 Completed [facility] 00:00:00 [facility] HIB 4 Dose Schedule 1999-08-09 Completed [facility]ive rsity of 00:00:00 [facility] Polio (IPV/OPV) 1999-08-09 Completed [facility] 00:00:00 [facility] DTAP 1999-08-09 Completed [facility] 00:00:00 [facility] HIB 4 Dose Schedule 1999-08-09 Completed [facility]ive rsity of 00:00:00 [facility] Polio (IPV/OPV) 1999-08-09 Completed [facility] 00:00:00 [facility] DTAP 1999-08-09 Completed [facility] 00:00:00 [facility] HIB 4 Dose Schedule 1999-08-09 Completed [facility]ive rsity of 00:00:00 [facility] Polio (IPV/OPV) 1999-08-09 Completed [facility] 00:00:00 [facility] DTAP 1999-08-09 Completed [facility] 00:00:00 [facility] HIB 4 Dose Schedule 1999-08-09 Completed [facility]ive rsity of 00:00:00 [facility] Polio (IPV/OPV) 1999-08-09 Completed [facility] 00:00:00 [facility] DTAP 1999-08-09 Completed [facility] 00:00:00 [facility] HIB 4 Dose Schedule 1999-08-09 Completed [facility]ive rsity of 00:00:00 [facility] Polio (IPV/OPV) 1999-08-09 Completed [facility] 00:00:00 [facility] DTAP 1999-08-09 Completed [facility] 00:00:00 [facility] HIB 4 Dose Schedule 1999-08-09 Completed [facility]ive rsity of 00:00:00 [facility] Polio (IPV/OPV) 1999-08-09 Completed [facility] 00:00:00 [facility] DTAP 1999-08-09 Completed [facility] 00:00:00 [facility] HIB 4 Dose Schedule 1999-08-09 Completed [facility]ive rsity of 00:00:00 [facility] Polio (IPV/OPV) 1999-08-09 Completed [facility] 00:00:00 [facility] DTAP 1999-08-09 Completed [facility] 00:00:00 [facility] HIB 4 Dose Schedule 1999-08-09 Completed [facility]ive rsity of 00:00:00 [facility] Polio (IPV/OPV) 1999-08-09 Completed [facility] 00:00:00 [facility] DTAP 1999-08-09 Completed [facility] 00:00:00 [facility] HIB 4 Dose Schedule 1999-08-09 Completed [facility]ive rsity of 00:00:00 [facility] Polio (IPV/OPV) 1999-08-09 Completed [facility] 00:00:00 [facility] DTAP 1999-08-09 Completed [facility] 00:00:00 [facility] HIB 4 Dose Schedule 1999-08-09 Completed [facility]ive rsity of 00:00:00 [facility] Polio (IPV/OPV) 1999-08-09 Completed [facility] 00:00:00 [facility] DTAP 1999-08-09 Completed [facility] 00:00:00 [facility] HIB 4 Dose Schedule 1999-08-09 Completed [facility]ive rsity of 00:00:00 [facility] Polio (IPV/OPV) 1999-08-09 Completed [facility] 00:00:00 [facility] DTAP 1999-08-09 Completed [facility] 00:00:00 [facility] HIB 4 Dose Schedule 1999-08-09 Completed [facility]ive rsity of 00:00:00 [facility] Polio (IPV/OPV) 1999-08-09 Completed [facility] 00:00:00 [facility] DTAP 1999-08-09 Completed [facility] 00:00:00 [facility] HIB 4 Dose Schedule 1999-08-09 Completed [facility] rsity of 00:00:00 [facility] Polio (IPV/OPV) 1999-08-09 Completed [facility] 00:00:00 [facility] DTAP 1999-08-09 Completed [facility] 00:00:00 [facility] HIB 4 Dose Schedule 1999-08-09 Completed [facility]ive rsity of 00:00:00 [facility] Polio (IPV/OPV) 1999-08-09 Completed [facility] 00:00:00 [facility] DTAP 1999-08-09 Completed [facility] 00:00:00 [facility] HIB 4 Dose Schedule 1999-08-09 Completed [facility]ive rsity of 00:00:00 [facility] Polio (IPV/OPV) 1999-08-09 Completed [facility] 00:00:00 [facility] DTAP 1999-08-09 Completed [facility] 00:00:00 [facility] HIB 4 Dose Schedule 1999-08-09 Completed [facility]ity [facility] 00:00:00 [facility] Polio (IPV/OPV) 1999-08-09 Completed [facility] 00:00:00 [facility] DTAP 1999-08-09 Completed [facility] 00:00:00 [facility] HIB 4 Dose Schedule 1999-08-09 Completed [facility] rsity of 00:00:00 [facility] Polio (IPV/OPV) 1999-08-09 Completed [facility] 00:00:00 [facility] DTAP 1999-08-09 Completed [facility] 00:00:00 [facility] HIB 4 Dose Schedule 1999-08-09 Completed [facility] 00:00:00 [facility] Polio (IPV/OPV) 1999-08-09 Completed [facility] 00:00:00 [facility] DTAP 1999-08-09 Completed [facility] 00:00:00 [facility] HIB 4 Dose Schedule 1999-08-09 Completed [facility]ity of 00:00:00 [facility] Polio (IPV/OPV) 1999-08-09 Completed [facility] 00:00:00 [facility] DTAP 1999-08-09 Completed [facility] 00:00:00 [facility] HIB 4 Dose Schedule 1999-08-09 Completed [facility] rsity of 00:00:00 [facility] Polio (IPV/OPV) 1999-08-09 Completed [facility] 00:00:00 [facility] DTAP 1999-08-09 Completed [facility] 00:00:00 [facility] HIB 4 Dose Schedule 1999-08-09 Completed [facility] rsity of 00:00:00 [facility] Polio (IPV/OPV) 1999-08-09 Completed [facility] 00:00:00 [facility] DTAP 1999-08-09 Completed [facility] 00:00:00 [facility] HIB 4 Dose Schedule 1999-08-09 Completed [facility] of 00:00:00 [facility] Polio (IPV/OPV) 1999-08-09 Completed [facility] 00:00:00 [facility] DTAP 1999-08-09 Completed [facility] 00:00:00 [facility] HIB 4 Dose Schedule 1999-08-09 Completed [facility] 00:00:00 [facility] Polio (IPV/OPV) 1999-08-09 Completed [facility] 00:00:00 [facility] DTAP 1999-08-09 Completed [facility] 00:00:00 [facility] HIB 4 Dose Schedule 1999-08-09 Completed [facility]ity of 00:00:00 [facility] Polio (IPV/OPV) 1999-08-09 Completed [facility] 00:00:00 [facility] DTAP 1999-08-09 Completed [facility] 00:00:00 [facility] HIB 4 Dose Schedule 1999-08-09 Completed [facility] 00:00:00 [facility] Polio (IPV/OPV) 1999-08-09 Completed [facility] 00:00:00 [facility] DTAP 1999-08-09 Completed [facility] 00:00:00 [facility] HIB 4 Dose Schedule 1999-08-09 Completed [facility]ive rsity of 00:00:00 [facility] Polio (IPV/OPV) 1999-08-09 Completed [facility] 00:00:00 [facility] DTAP 1999-08-09 Completed [facility] 00:00:00 [facility] HIB 4 Dose Schedule 1999-08-09 Completed [facility]ity of 00:00:00 [facility] Polio (IPV/OPV) 1999-08-09 Completed [facility] 00:00:00 [facility] DTAP 1999-08-09 Completed [facility] 00:00:00 [facility] HIB 4 Dose Schedule 1999-08-09 Completed [facility]ity of 00:00:00 [facility] Polio (IPV/OPV) 1999-08-09 Completed [facility] 00:00:00 [facility] DTAP 1999-08-09 Completed [facility] 00:00:00 [facility] HIB 4 Dose Schedule 1999-08-09 Completed [facility] of 00:00:00 [facility] Polio (IPV/OPV) 1999-08-09 Completed [facility] 00:00:00 [facility] DTAP 1999-08-09 Completed [facility] 00:00:00 [facility] HIB 4 Dose Schedule 1999-08-09 Completed [facility] 00:00:00 [facility] Polio (IPV/OPV) 1999-08-09 Completed [facility] 00:00:00 [facility] DTAP 1999-08-09 Completed [facility] 00:00:00 [facility] HIB 4 Dose Schedule 1999-08-09 Completed [facility] 00:00:00 [facility] Polio (IPV/OPV) 1999-08-09 Completed [facility] 00:00:00 [facility] DTAP 1999-08-09 Completed [facility] 00:00:00 [facility] HIB 4 Dose Schedule 1999-08-09 Completed [facility] 00:00:00 [facility] Polio (IPV/OPV) 1999-08-09 Completed [facility] 00:00:00 [facility] DTAP 1999-08-09 Completed [facility] 00:00:00 [facility] HIB 4 Dose Schedule 1999-08-09 Completed [facility] 00:00:00 [facility] Polio (IPV/OPV) 1999-08-09 Completed [facility] 00:00:00 [facility] DTAP 1999-08-09 Completed [facility] 00:00:00 [facility] HIB 4 Dose Schedule 1999-08-09 Completed [facility] of 00:00:00 [facility] Polio (IPV/OPV) 1999-08-09 Completed [facility] 00:00:00 [facility] DTAP 1999-08-09 Completed [facility] 00:00:00 [facility] HIB 4 Dose Schedule 1999-08-09 Completed [facility] 00:00:00 [facility] Polio (IPV/OPV) 1999-08-09 Completed [facility] 00:00:00 [facility] DTAP 1999-08-09 Completed [facility] 00:00:00 [facility] HIB 4 Dose Schedule 1999-08-09 Completed [facility] 00:00:00 [facility] Polio (IPV/OPV) 1999-08-09 Completed [facility] 00:00:00 [facility] DTAP 1999-08-09 Completed [facility] 00:00:00 [facility] HIB 4 Dose Schedule 1999-08-09 Completed [facility] 00:00:00 [facility] Polio (IPV/OPV) 1999-08-09 Completed [facility] 00:[facility]00 [facility] DTAP 1999-08-09 Completed [facility] 00:00:00 [facility] HIB 4 Dose Schedule 1999-08-09 Completed [facility] 00:00:00 [facility] Polio (IPV/OPV) 1999-08-09 Completed [facility] 00:00:00 [facility] DTAP 1999-08-09 Completed [facility] 00:00:00 [facility] HIB 4 Dose Schedule 1999-08-09 Completed [facility] 00:00:00 [facility] [place] Polio (IPV/OPV) 1999-08-09 Completed [facility] 00:00:00 [facility] DTAP 1999-08-09 Completed [facility] 00:00:00 [facility] HIB 4 Dose Schedule 1999-08-09 Completed [facility] 00:00:00 [facility] Polio (IPV/OPV) 1999-08-09 Completed [facility] 00:00:00 [facility] DTAP 1999-08-09 Completed [facility] 00:00:00 [facility] HIB 4 Dose Schedule 1999-08-09 Completed [facility] 00:00:00 [facility] Polio (IPV/OPV) 1999-08-09 Completed [facility] 00:00:00 [facility] DTAP 1999-08-09 Completed [facility] 00:00:00 [facility] HIB 4 Dose Schedule 1999-08-09 Completed [facility] 00:00:00 [facility] Polio (IPV/OPV) 1999-08-09 Completed [facility] 00:00:00 [facility] DTAP 1999-08-09 Completed [facility] 00:00:00 [facility] HIB 4 Dose Schedule 1999-08-09 Completed [facility] 00:00:00 [facility] Polio (IPV/OPV) 1999-08-09 Completed [facility] 00:00:00 [facility] DTAP 1999-08-09 Completed [facility] 00:00:00 [facility] HIB 4 Dose Schedule 1999-08-09 Completed [facility] 00:00:00 [facility] Polio (IPV/OPV) 1999-08-09 Completed [facility] 00:00:00 [facility] DTAP 1999-08-09 Completed [facility] 00:00:00 [facility] HIB 4 Dose Schedule 1999-08-09 Completed [facility] 00:00:00 [facility] Polio (IPV/OPV) 1999-08-09 Completed [facility] 00:00:00 [facility] DTAP 1999-08-09 Completed [facility] 00:00:00 [facility] HIB 4 Dose Schedule 1999-08-09 Completed [facility] 00:00:00 [facility] Polio (IPV/OPV) 1999-08-09 Completed [facility] 00:00:00 [facility] DTAP 1999-08-09 Completed [facility] 00:00:00 [facility] HIB 4 Dose Schedule 1999-08-09 Completed [facility] 00:00:00 [facility] Polio (IPV/OPV) 1999-08-09 Completed [facility] 00:00:00 [facility] DTAP 1999-08-09 Completed [facility] 00:00:00 [facility] HIB 4 Dose Schedule 1999-08-09 Completed [facility] 00:00:00 [facility] Polio (IPV/OPV) 1999-08-09 Completed [facility] 00:00:00 [facility] DTAP 1999-08-09 Completed [facility] 00:00:00 [facility] HIB 4 Dose Schedule 1999-08-09 Completed [facility] 00:00:00 [facility] [place] Polio (IPV/OPV) 1999-08-09 Completed [facility] 00:00:00 [facility] DTAP 1999-08-09 Completed [facility] 00:00:00 [facility] HIB 4 Dose Schedule 1999-08-09 Completed [facility] 00:00:00 [facility] Polio (IPV/OPV) 1999-08-09 Completed [facility] 00:00:00 [facility] DTAP 1999-08-09 Completed [facility] 00:00:00 [facility] HIB 4 Dose Schedule 1999-08-09 Completed [facility] 00:00:00 [facility] Polio (IPV/OPV) 1999-08-09 Completed [facility] 00:00:00 [facility] DTAP 1999-08-09 Completed [facility] 00:00:00 [facility] HIB 4 Dose Schedule 1999-08-09 Completed [facility] 00:00:00 [facility] Polio (IPV/OPV) 1999-08-09 Completed [facility] 00:00:00 [facility] DTAP 1999-08-09 Completed [facility] 00:00:00 [facility] HIB 4 Dose Schedule 1999-08-09 Completed [facility] 00:00:00 [facility] Polio (IPV/OPV) 1999-08-09 Completed [facility] 00:00:00 [facility] DTAP 1999-08-09 Completed [facility] 00:00:00 [facility] HIB 4 Dose Schedule 1999-08-09 Completed [facility] 00:00:00 [facility] Polio (IPV/OPV) 1999-08-09 Completed [facility] 00:00:00 [facility] DTAP 1999-08-09 Completed [facility] 00:00:00 [facility] HIB 4 Dose Schedule 1999-08-09 Completed [facility] 00:00:00 [facility] Polio (IPV/OPV) 1999-08-09 Completed [facility] 00:00:00 [facility] DTAP 1999-08-09 Completed [facility] 00:00:00 [facility] HIB 4 Dose Schedule 1999-08-09 Completed [facility] 00:00:00 [facility] Polio (IPV/OPV) 1999-08-09 Completed [facility] 00:00:00 [facility] DTAP 1999-08-09 Completed [facility] 00:00:00 [facility] HIB 4 Dose Schedule 1999-08-09 Completed [facility] 00:00:00 [facility] Polio (IPV/OPV) 1999-08-09 Completed [facility] 00:00:00 [facility] DTAP 1999-08-09 Completed [facility] 00:00:00 [facility] HIB 4 Dose Schedule 1999-08-09 Completed [facility] 00:00:00 [facility] Polio (IPV/OPV) 1999-08-09 Completed [facility] 00:00:00 [facility] DTAP 1999-08-09 Completed [facility] 00:00:00 [facility] HIB 4 Dose Schedule 1999-08-09 Completed [facility] 00:00:00 [facility] Polio (IPV/OPV) 1999-08-09 Completed [facility] 00:00:00 [facility] DTAP 1999-08-09 Completed [facility] 00:00:00 [facility] HIB 4 Dose Schedule 1999-08-09 Completed [facility] 00:00:00 [facility] Polio (IPV/OPV) 1999-08-09 Completed [facility] 00:00:00 [facility] DTAP 1999-08-09 Completed [facility] 00:00:00 [facility] HIB 4 Dose Schedule 1999-08-09 Completed [facility] 00:00:00 [facility] Polio (IPV/OPV) 1999-08-09 Completed [facility] 00:00:00 [facility] DTAP 1999-08-09 Completed [facility] 00:00:00 [facility] HIB 4 Dose Schedule 1999-08-09 Completed [facility] 00:00:00 [facility] Polio (IPV/OPV) 1999-08-09 Completed [facility] 00:00:00 [facility] DTAP 1999-08-09 Completed [facility] 00:00:00 [facility] HIB 4 Dose Schedule 1999-08-09 Completed [facility] 00:00:00 [facility] Polio (IPV/OPV) 1999-08-09 Completed [facility] 00:00:00 [facility] DTAP 1999-08-09 Completed [facility] 00:00:00 [facility] HIB 4 Dose Schedule 1999-08-09 Completed [facility] 00:00:00 [facility] Polio (IPV/OPV) 1999-08-09 Completed [facility] 00:00:00 [facility] DTAP 1999-08-09 Completed [facility] 00:00:00 [facility] HIB 4 Dose Schedule 1999-08-09 Completed [facility] 00:00:00 [facility] Polio (IPV/OPV) 1999-08-09 Completed [facility] 00:00:00 [facility] DTAP 1999-08-09 Completed [facility] 00:00:00 [facility] HIB 4 Dose Schedule 1999-08-09 Completed [facility] 00:00:00 [facility] Polio (IPV/OPV) 1999-08-09 Completed [facility] 00:00:00 [facility] DTAP 1999-08-09 Completed [facility] 00:00:00 [facility] HIB 4 Dose Schedule 1999-08-09 Completed [facility] 00:00:00 [facility] Polio (IPV/OPV) 1999-08-09 Completed [facility] 00:00:00 [facility] DTAP 1999-08-09 Completed [facility] 00:00:00 [facility] HIB 4 Dose Schedule 1999-08-09 Completed [facility] 00:00:00 [facility] Polio (IPV/OPV) 1999-08-09 Completed [facility] 00:00:00 [facility] DTAP 1999-08-09 Completed [facility] 00:00:00 [facility] HIB 4 Dose Schedule 1999-08-09 Completed [facility] 00:00:00 [facility] Polio (IPV/OPV) 1999-08-09 Completed [facility] 00:00:00 [facility] DTAP 1999-08-09 Completed [facility] 00:00:00 [facility] HIB 4 Dose Schedule 1999-08-09 Completed [facility] 00:00:00 [facility] Polio (IPV/OPV) 1999-08-09 Completed [facility] 00:00:00 [facility] DTAP 1999-08-09 Completed [facility] 00:00:00 [facility] HIB 4 Dose Schedule 1999-08-09 Completed [facility] 00:00:00 [facility] Polio (IPV/OPV) 1999-08-09 Completed [facility] 00:00:00 [facility] DTAP 1999-08-09 Completed [facility] 00:00:00 [facility] HIB 4 Dose Schedule 1999-08-09 Completed [facility] 00:00:00 [facility] Polio (IPV/OPV) 1999-08-09 Completed [facility] 00:00:00 [facility] DTAP 1999-08-09 Completed [facility] 00:00:00 [facility] HIB 4 Dose Schedule 1999-08-09 Completed [facility] 00:00:00 [facility] Polio (IPV/OPV) 1999-08-09 Completed [facility] 00:00:00 [facility] DTAP 1999-08-09 Completed [facility] 00:00:00 [facility] HIB 4 Dose Schedule 1999-08-09 Completed [facility] 00:00:00 [facility] Polio (IPV/OPV) 1999-08-09 Completed [facility] 00:00:00 [facility] DTAP 1999-08-09 Completed [facility] 00:00:00 [facility] HIB 4 Dose Schedule 1999-08-09 Completed [facility] 00:00:00 [facility] Polio (IPV/OPV) 1999-08-09 Completed [facility] 00:00:00 [facility] DTAP 1999-08-09 Completed [facility] 00:00:00 [facility] HIB 4 Dose Schedule 1999-08-09 Completed [facility] 00:00:00 [facility] Polio (IPV/OPV) 1999-08-09 Completed [facility] 00:00:00 [facility] DTAP 1999-08-09 Completed [facility] 00:00:00 [facility] HIB 4 Dose Schedule 1999-08-09 Completed [facility] 00:00:00 [facility] Polio (IPV/OPV) 1999-08-09 Completed [facility] 00:00:00 [facility] DTAP 1999-08-09 Completed [facility] 00:00:00 [facility] HIB 4 Dose Schedule 1999-08-09 Completed [facility] 00:00:00 [facility] Polio (IPV/OPV) 1999-08-09 Completed [facility] 00:00:00 [facility] DTAP 1999-08-09 Completed [facility] 00:00:00 [facility] HIB 4 Dose Schedule 1999-08-09 Completed [facility] 00:00:00 [facility] Polio (IPV/OPV) 1999-08-09 Completed [facility] 00:00:00 [facility] DTAP 1999-08-09 Completed [facility] 00:00:00 [facility] HIB 4 Dose Schedule 1999-08-09 Completed [facility] 00:00:00 [facility] Polio (IPV/OPV) 1999-08-09 Completed [facility] 00:00:00 [facility] DTAP 1999-08-09 Completed [facility] 00:00:00 [facility] HIB 4 Dose Schedule 1999-08-09 Completed [facility] 00:00:00 [facility] Polio (IPV/OPV) 1999-08-09 Completed [facility] 00:00:00 [facility] DTAP 1999-08-09 Completed [facility] 00:00:00 [facility] HIB 4 Dose Schedule 1999-08-09 Completed [facility] 00:00:00 [facility] Polio (IPV/OPV) 1999-08-09 Completed [facility] 00:00:00 [facility] DTAP 1999-08-09 Completed [facility] 00:00:00 [facility] HIB 4 Dose Schedule 1999-08-09 Completed [facility] 00:00:00 [facility] Polio (IPV/OPV) 1999-08-09 Completed [facility] 00:00:00 [facility] DTAP 1999-08-09 Completed [facility] 00:00:00 [facility] HIB 4 Dose Schedule 1999-08-09 Completed [facility] 00:00:00 [facility] Polio (IPV/OPV) 1999-08-09 Completed [facility] 00:00:00 [facility] MMR 1999-02-27 Completed [facility] 00:00:00 [facility] Varicella 1999-02-27 Completed [facility] (varivax)(chicken 00:00:00 [facility] MMR 1999-02-27 Completed [facility] 00:00:00 [facility] Varicella 1999-02-27 Completed [facility] (varivax)(chicken 00:00:00 [facility] 1999-02-27 Completed [facility] 00:00:00 [facility] Varicella 1999-02-27 Completed [facility] (varivax)(chicken 00:00:00 [facility] MMR 1999-02-27 Completed [facility] 00:00:00 [facility] Varicella 1999-02-27 Completed [facility] (varivax)(chicken 00:00:00 [facility] 1999-02-27 Completed [facility] 00:00:00 [facility] Varicella 1999-02-27 Completed [facility] (varivax)(chicken 00:00:00 [facility] 1999-02-27 Completed [facility] 00:00:00 [facility] Varicella 1999-02-27 Completed [facility] (varivax)(chicken 00:00:00 [facility] 1999-02-27 Completed [facility] 00:00:00 [facility] Varicella 1999-02-27 Completed [facility] (varivax)(chicken 00:00:00 [facility] 1999-02-27 Completed [facility] 00:00:00 [facility] Varicella 1999-02-27 Completed [facility] (varivax)(chicken 00:00:00 [facility] 1999-02-27 Completed [facility] 00:00:00 [facility] Varicella 1999-02-27 Completed [facility] (varivax)(chicken 00:00:00 [facility] 1999-02-27 Completed [facility] 00:00:00 [facility] Varicella 1999-02-27 Completed [facility] (varivax)(chicken 00:00:00 [facility] 1999-02-27 Completed [facility] 00:00:00 [facility] Varicella 1999-02-27 Completed [facility] (varivax)(chicken 00:00:00 [facility] 1999-02-27 Completed [facility] 00:00:00 [facility] Varicella 1999-02-27 Completed [facility] (varivax)(chicken 00:00:00 [facility] MMR 1999-02-27 Completed [facility] 00:00:00 [facility] Varicella 1999-02-27 Completed [facility] (varivax)(chicken 00:00:00 [facility] MMR 1999-02-27 Completed [facility] 00:00:00 [facility] Varicella 1999-02-27 Completed [facility] (varivax)(chicken 00:00:00 [facility] MMR 1999-02-27 Completed [facility] 00:00:00 [facility] Varicella 1999-02-27 Completed [facility] (varivax)(chicken 00:00:00 [facility] 1999-02-27 Completed [facility] 00:00:00 [facility] Varicella 1999-02-27 Completed [facility] (varivax)(chicken 00:00:00 [facility] 1999-02-27 Completed [facility] 00:00:00 [facility] Varicella 1999-02-27 Completed [facility] (varivax)(chicken 00:00:00 [facility] 1999-02-27 Completed [facility] 00:00:00 [facility] Varicella 1999-02-27 Completed [facility] (varivax)(chicken 00:00:00 [facility] 1999-02-27 Completed [facility] 00:00:00 [facility] Varicella 1999-02-27 Completed [facility] (varivax)(chicken 00:00:00 [facility] 1999-02-27 Completed [facility] 00:00:00 [facility] Varicella 1999-02-27 Completed [facility] (varivax)(chicken 00:00:00 [facility] 1999-02-27 Completed [facility] 00:00:00 [facility] Varicella 1999-02-27 Completed [facility] (varivax)(chicken 00:00:00 [facility] 1999-02-27 Completed [facility] 00:00:00 [facility] Varicella 1999-02-27 Completed [facility] (varivax)(chicken 00:00:00 [facility] 1999-02-27 Completed [facility] 00:00:00 [facility] Varicella 1999-02-27 Completed [facility] (varivax)(chicken 00:00:00 [facility] 1999-02-27 Completed [facility] 00:00:00 [facility] Varicella 1999-02-27 Completed [facility] (varivax)(chicken 00:00:00 [facility] 1999-02-27 Completed [facility] 00:00:00 [facility] Varicella 1999-02-27 Completed [facility] (varivax)(chicken 00:00:00 [facility] 1999-02-27 Completed [facility] 00:00:00 [facility] Varicella 1999-02-27 Completed [facility] (varivax)(chicken 00:00:00 [facility] 1999-02-27 Completed [facility] 00:00:00 [facility] Varicella 1999-02-27 Completed [facility] (varivax)(chicken 00:00:00 [facility] 1999-02-27 Completed [facility] 00:00:00 [facility] Varicella 1999-02-27 Completed [facility] (varivax)(chicken 00:00:00 [facility] 1999-02-27 Completed [facility] 00:00:00 [facility] Varicella 1999-02-27 Completed [facility] (varivax)(chicken 00:00:00 [facility] 1999-02-27 Completed [facility] 00:00:00 [facility] Varicella 1999-02-27 Completed [facility] (varivax)(chicken 00:00:00 [facility] 1999-02-27 Completed [facility] 00:00:00 [facility] Varicella 1999-02-27 Completed [facility] (varivax)(chicken 00:00:00 [facility] 1999-02-27 Completed [facility] 00:00:00 [facility] Varicella 1999-02-27 Completed [facility] (varivax)(chicken 00:00:00 [facility] 1999-02-27 Completed [facility] 00:00:00 [facility] Varicella 1999-02-27 Completed [facility] (varivax)(chicken 00:00:00 [place] [facility] 1999-02-27 Completed [facility] 00:00:00 [facility] Varicella 1999-02-27 Completed [facility] (varivax)(chicken 00:00:00 [facility] 1999-02-27 Completed [facility] 00:00:00 [facility] Varicella 1999-02-27 Completed [facility] (varivax)(chicken 00:00:00 [facility] 1999-02-27 Completed [facility] 00:00:00 [facility] Varicella 1999-02-27 Completed [facility] (varivax)(chicken 00:00:00 [facility] 1999-02-27 Completed [facility] 00:00:00 [facility] Varicella 1999-02-27 Completed [facility] (varivax)(chicken 00:00:00 [facility] 1999-02-27 Completed [facility] 00:00:00 [facility] Varicella 1999-02-27 Completed [facility] (varivax)(chicken 00:00:00 [facility] 1999-02-27 Completed [facility] 00:00:00 [facility] Varicella 1999-02-27 Completed [facility] (varivax)(chicken 00:00:00 [place] [facility] 1999-02-27 Completed [facility] 00:00:00 [facility] Varicella 1999-02-27 Completed [facility] (varivax)(chicken 00:00:00 [place] [facility] 1999-02-27 Completed [facility] 00:00:00 [facility] Varicella 1999-02-27 Completed [facility] (varivax)(chicken 00:00:00 [place] [facility] 1999-02-27 Completed [facility] 00:00:00 [facility] Varicella 1999-02-27 Completed [facility] (varivax)(chicken 00:00:00 [place] [facility] 1999-02-27 Completed [facility] 00:00:00 [facility] Varicella 1999-02-27 Completed [facility] (varivax)(chicken 00:00:00 [place] [facility] 1999-02-27 Completed [facility] 00:00:00 [facility] Varicella 1999-02-27 Completed [facility] (varivax)(chicken 00:00:00 [place] [facility] 1999-02-27 Completed [facility] 00:00:00 [facility] Varicella 1999-02-27 Completed [facility] (varivax)(chicken 00:00:00 [place] [facility] 1999-02-27 Completed [facility] 00:00:00 [facility] Varicella 1999-02-27 Completed [facility] (varivax)(chicken 00:00:00 [place] [facility] 1999-02-27 Completed [facility] 00:00:00 [facility] Varicella 1999-02-27 Completed [facility] (varivax)(chicken 00:00:00 [place] [facility] 1999-02-27 Completed [facility] 00:00:00 [facility] Varicella 1999-02-27 Completed [facility] (varivax)(chicken 00:00:00 [place] [facility] 1999-02-27 Completed [facility] 00:00:00 [facility] Varicella 1999-02-27 Completed [facility] (varivax)(chicken 00:00:00 [place] [facility] 1999-02-27 Completed [facility] 00:00:00 [facility] Varicella 1999-02-27 Completed [facility] (varivax)(chicken 00:00:00 [place] [facility] 1999-02-27 Completed [facility] 00:00:00 [facility] Varicella 1999-02-27 Completed [facility] (varivax)(chicken 00:00:00 [place] [facility] 1999-02-27 Completed [facility] 00:00:00 [facility] Varicella 1999-02-27 Completed [facility] (varivax)(chicken 00:00:00 [place] [facility] 1999-02-27 Completed [facility] 00:00:00 [facility] [facility] Varicella 1999-02-27 Completed [facility] (varivax[facility] 00:[facility] 1999-02-27 Completed [facility] 00:00:00 [facility] Varicella 1999-02-27 Completed [facility] (varivax[facility] 00:00:00 [place] [facility] 1999-02-27 Completed [facility] 00:00:00 [facility] Varicella 1999-02-27 Completed [facility] (varivax[facility] 00:00:00 [place] [facility] 1999-02-27 Completed [facility] 00:00:00 [facility] Varicella 1999-02-27 Completed [facility] (varivax)([facility] 00:00:00 [place] [facility] 1999-02-27 Completed [facility] 00:00:00 [facility] Varicella 1999-02-27 Completed [facility] (varivax)([facility]icken 00:00:00 [place] [facility] 1999-02-27 Completed [facility] 00:00:00 [facility] Varicella 1999-02-27 Completed [facility] (varivax[facility] 00:00:00 [place] [facility] 1999-02-27 Completed [facility] 00[facility]00:00 [facility] Varicella 1999-02-27 Completed [facility] (varivax)([facility] 00:00:00 [place] [facility] 1999-02-27 Completed [facility] 00[facility]00:00 [facility] Varicella 1999-02-27 Completed [facility] (varivax)([facility]icken 00:00:00 [place] [facility] 1999-02-27 Completed [facility] 00[facility]00:00 [facility] Varicella 1999-02-27 Completed [facility] (varivax)([facility]icken 00:00:00 [place] [facility] 1999-02-27 Completed [facility] 00[facility]00:00 [facility] Varicella 1999-02-27 Completed [facility] (varivax)([facility]icken 00:00:00 [place] [facility] 1999-02-27 Completed [facility] 00[facility]00:00 [facility] Varicella 1999-02-27 Completed [facility] (varivax)([facility]icken 00:00:00 [place] [facility] 1999-02-27 Completed [facility] 00[facility]00:00 [facility] Varicella 1999-02-27 Completed [facility] (varivax)([facility]icken 00:00:00 [place] [facility] 1999-02-27 Completed [facility] 00[facility]00:00 [facility] Varicella 1999-02-27 Completed [facility] (varivax)([facility]icken 00:00:00 [place] [facility] 1999-02-27 Completed [facility] 00[facility]00:00 [facility] Varicella 1999-02-27 Completed [facility] (varivax)([facility]icken 00:00:00 [place] [facility] 1999-02-27 Completed [facility] 00:00:00 [facility] Varicella 1999-02-27 Completed [facility] (varivax[facility]icken 00:00:00 [place] [facility] 1999-02-27 Completed [facility] 00:00:00 [facility] Varicella 1999-02-27 Completed [facility] (varivax)(chicken 00:00:00 [place] [facility] 1999-02-27 Completed [facility] 00[facility]00:00 [facility] Varicella 1999-02-27 Completed [facility] (varivax)(chicken 00:00:00 [place] [facility] 1999-02-27 Completed [facility] 00[facility]00:00 [facility] Varicella 1999-02-27 Completed [facility] (varivax)(chicken 00:00:00 [place] [facility] 1999-02-27 Completed [facility] 00[facility]00:00 [facility] Varicella 1999-02-27 Completed [facility] (varivax)(chicken 00:00:00 [place] [facility] 1999-02-27 Completed [facility] 00[facility]00:00 [facility] Varicella 1999-02-27 Completed [facility] (varivax)(chicken 00:00:00 [place] [facility] 1999-02-27 Completed [facility] 00[facility]00:00 [facility] Varicella 1999-02-27 Completed [facility] (varivax)(chicken 00:00:00 [place] [facility] 1999-02-27 Completed [facility] 00[facility]00:00 [facility] Varicella 1999-02-27 Completed [facility] (varivax)(chicken 00:00:00 [place] [facility] 1999-02-27 Completed [facility] 00[facility]00:00 [facility] Varicella 1999-02-27 Completed [facility] (varivax)(chicken 00:00:00 [place] [facility] 1999-02-27 Completed [facility] 00[facility]00:00 [facility] Varicella 1999-02-27 Completed [facility] (varivax)(chicken 00:00:00 [place] [facility] 1999-02-27 Completed [facility] 00[facility]00:00 [facility] Varicella 1999-02-27 Completed [facility] (varivax)(chicken 00:00:00 [place] [facility] 1999-02-27 Completed [facility] 00[facility]00:00 [facility] Varicella 1999-02-27 Completed [facility] (varivax)(chicken 00:00:00 [place] [facility] 1999-02-27 Completed [facility] 00[facility]00:00 [facility] Varicella 1999-02-27 Completed [facility] (varivax)(chicken 00:00:00 [place] [facility] 1999-02-27 Completed [facility] 00[facility]00:00 [facility] Varicella 1999-02-27 Completed [facility] (varivax)(chicken 00:00:00 [place] [facility] 1999-02-27 Completed [facility] 00:00:00 [facility] Varicella 1999-02-27 Completed [facility] (varivax)(chicken 00:00:00 [place] [facility] 1999-02-27 Completed [facility] 00[facility]00:00 [facility] Varicella 1999-02-27 Completed [facility] (varivax)(chicken 00:00:00 [place] [facility] 1999-02-27 Completed [facility] 00[facility]00:00 [facility] Varicella 1999-02-27 Completed [facility] (varivax)(chicken 00:00:00 [place] [facility] 1999-02-27 Completed [facility] 00[facility]00:00 [facility] Varicella 1999-02-27 Completed [facility] (varivax)(chicken 00:00:00 [place] [facility] 1999-02-27 Completed [facility] 00[facility]00:00 [facility] Varicella 1999-02-27 Completed [facility] (varivax)(chicken 00:00:00 [place] [facility] 1999-02-27 Completed [facility] 00[facility]00:00 [facility] Varicella 1999-02-27 Completed [facility] (varivax)(chicken 00:00:00 [place] [facility] 1999-02-27 Completed [facility] 00[facility]00:00 [facility] Varicella 1999-02-27 Completed [facility] (varivax)(chicken 00:00:00 [place] [facility] 1999-02-27 Completed [facility] 00[facility]00:00 [facility] Varicella 1999-02-27 Completed [facility] (varivax)(chicken 00:00:00 [place] [facility] 1999-02-27 Completed [facility] 00[facility]00:00 [facility] Varicella 1999-02-27 Completed [facility] (varivax)(chicken 00:00:00 [place] [facility] 1999-02-27 Completed [facility] 00:00:00 [facility] Varicella 1999-02-27 Completed [facility] (varivax)(chicken 00:00:00 [place] [facility] MMR 1999-02-27 Completed [facility] 00:00:00 [facility] Varicella 1999-02-27 Completed [facility] (varivax)(chicken 00:00:00 [place] [facility] 1999-02-27 Completed [facility] 00[facility]00:00 [facility] Varicella 1999-02-27 Completed [facility] (varivax)(chicken 00:00:00 [place] [facility] 1999-02-27 Completed [facility] 00:00:00 [facility] Varicella 1999-02-27 Completed [facility] (varivax)(chicken 00:00:00 [place] [facility] 1999-02-27 Completed [facility] 00[facility]00:00 [facility] Varicella 1999-02-27 Completed [facility] (varivax)(chicken 00:00:00 [place] [facility] 1999-02-27 Completed [facility] 00[facility]00:00 [facility] Varicella 1999-02-27 Completed [facility] (varivax)(chicken 00:00:00 [place] [facility] 1999-02-27 Completed [facility] 00:00:00 [facility] Varicella 1999-02-27 Completed [facility] (varivax)(chicken 00:00:00 [place] [facility] 1999-02-27 Completed [facility] 00[facility]00:00 [facility] Varicella 1999-02-27 Completed [facility] (varivax)(chicken 00:00:00 [place] [facility] 1999-02-27 Completed [facility] 00:00:00 [facility] Varicella 1999-02-27 Completed [facility] (varivax)(chicken 00:00:00 [place] [facility] 1999-02-27 Completed [facility] 00[facility]00:00 [facility] Varicella 1999-02-27 Completed [facility] (varivax)(chicken 00:00:00 [place] [facility] 1999-02-27 Completed [facility] 00:00:00 [facility] Varicella 1999-02-27 Completed [facility] (varivax)(chicken 00:00:00 [place] [facility] 1999-02-27 Completed [facility] 00:00:00 [facility] Varicella 1999-02-27 Completed [facility] (varivax)(chicken 00:00:00 [place] [facility] MMR 1999-02-27 Completed [facility] 00:00:00 [facility] Varicella 1999-02-27 Completed [facility] (varivax)(chicken 00:00:00 [place] [facility] MMR 1999-02-27 Completed [facility] 00:00:00 [facility] Varicella 1999-02-27 Completed [facility] (varivax)(chicken 00:00:00 [place] [facility] MMR 1999-02-27 Completed [facility] 00:00:00 [facility] Varicella 1999-02-27 Completed [facility] (varivax)(chicken 00:00:00 [place] [facility] MMR 1999-02-27 Completed [facility] 00:00:00 [facility] Varicella 1999-02-27 Completed [facility] (varivax)(chicken 00:00:00 [place] [facility] MMR 1999-02-27 Completed [facility] 00:00:00 [facility] Varicella 1999-02-27 Completed [facility] (varivax)([facility]icken 00:00:00 [place] [facility] DTAP 1998 Completed [facility] 00:00:00 [facility] HIB 4 Dose Schedule 1998 Completed Unive rsity of 00:00:00 [facility] Polio (IPV/OPV) 1998 Completed [facility] y [facility] 00:00:00 [facility] DTAP 1998 Completed [facility] 00:00:00 [facility] HIB 4 Dose Schedule 1998 Completed Unive rsity of 00:00:00 [facility] Polio (IPV/OPV) 1998 Completed [facility] 00:00:00 [facility] DTAP 1998 Completed [facility] 00:00:00 [facility] HIB 4 Dose Schedule 1998 Completed Unive rsity of 00:00:00 [facility] Polio (IPV/OPV) 1998 Completed [facility] y of 00:00:00 [facility] DTAP 1998 Completed [facility] 00:00:00 [facility] HIB 4 Dose Schedule 1998 Completed Unive rsity of 00:00:00 [facility] Polio (IPV/OPV) 1998 Completed [facility] y of 00:00:00 [facility] DTAP 1998 Completed [facility] 00:00:00 [facility] HIB 4 Dose Schedule 1998 Completed Unive rsity of 00:00:00 [facility] Polio (IPV/OPV) 1998 Completed [facility] y [facility] 00:00:00 [facility] DTAP 1998 Completed [facility] 00:00:00 [facility] HIB 4 Dose Schedule 1998 Completed Unive rsity of 00:00:00 [facility] Polio (IPV/OPV) 1998 Completed [facility]it y [facility] 00:00:00 [facility] DTAP 1998 Completed [facility] of 00:00:00 [facility] HIB 4 Dose Schedule 1998 Completed Unive rsity of 00:00:00 [facility] Polio (IPV/OPV) 1998 Completed Universit y of 00:00:00 [facility] DTAP 1998 Completed [facility] 00:00:00 [facility] HIB 4 Dose Schedule 1998 Completed Unive rsity of 00:00:00 [facility] Polio (IPV/OPV) 1998 Completed [facility] y of 00:00:00 [facility] DTAP 1998 Completed [facility] 00:00:00 [facility] HIB 4 Dose Schedule 1998 Completed Unive rsity of 00:00:00 [facility] Polio (IPV/OPV) 1998 Completed [facility] y of 00:00:00 [facility] DTAP 1998 Completed [facility] 00:00:00 [facility] HIB 4 Dose Schedule 1998 Completed Unive rsity of 00:00:00 [facility] Polio (IPV/OPV) 1998 Completed [facility] y of 00:00:00 [facility] DTAP 1998 Completed [facility] 00:00:00 [facility] HIB 4 Dose Schedule 1998 Completed Unive rsity of 00:00:00 [facility] Polio (IPV/OPV) 1998 Completed [facility] y [facility] 00:00:00 [facility] DTAP 1998 Completed [facility] 00:00:00 [facility] HIB 4 Dose Schedule 1998 Completed Unive rsity of 00:00:00 [facility] Polio (IPV/OPV) 1998 Completed [facility] y of 00:00:00 [facility] DTAP 1998 Completed [facility] 00:00:00 [facility] HIB 4 Dose Schedule 1998 Completed Unive rsity of 00:00:00 [facility] Polio (IPV/OPV) 1998 Completed [facility] y of 00:00:00 [facility] DTAP 1998 Completed [facility] 00:00:00 [facility] HIB 4 Dose Schedule 1998 Completed Unive rsity of 00:00:00 [facility] Polio (IPV/OPV) 1998 Completed [facility] y of 00:00:00 [facility] DTAP 1998 Completed [facility] 00:00:00 [facility] HIB 4 Dose Schedule 1998 Completed Unive rsity of 00:00:00 [facility] Polio (IPV/OPV) 1998 Completed [facility] y of 00:00:00 [facility] DTAP 1998 Completed [facility] 00:00:00 [facility] HIB 4 Dose Schedule 1998 Completed Unive rsity of 00:00:00 [facility] Polio (IPV/OPV) 1998 Completed [facility] y of 00:00:00 [facility] DTAP 1998 Completed [facility] 00:00:00 [facility] HIB 4 Dose Schedule 1998 Completed Unive rsity of 00:00:00 [facility] Polio (IPV/OPV) 1998 Completed [facility] y of 00:00:00 [facility] DTAP 1998 Completed [facility] 00:00:00 [facility] HIB 4 Dose Schedule 1998 Completed Unive rsity of 00:00:00 [facility] Polio (IPV/OPV) 1998 Completed [facility] of 00:00:00 [facility] DTAP 1998 Completed [facility] 00:00:00 [facility] HIB 4 Dose Schedule 1998 Completed Unive rsity of 00:00:00 [facility] Polio (IPV/OPV) 1998 Completed [facility] 00:00:00 [facility] DTAP 1998 Completed [facility] 00:00:00 [facility] HIB 4 Dose Schedule 1998 Completed Unive rsity of 00:00:00 [facility] Polio (IPV/OPV) 1998 Completed [facility] 00:00:00 [facility] DTAP 1998 Completed [facility] 00:00:00 [facility] HIB 4 Dose Schedule 1998 Completed Unive rsity of 00:00:00 [facility] Polio (IPV/OPV) 1998 Completed [facility] of 00:00:00 [facility] DTAP 1998 Completed [facility] 00:00:00 [facility] HIB 4 Dose Schedule 1998 Completed Unive rsity of 00:00:00 [facility] Polio (IPV/OPV) 1998 Completed [facility] 00:00:00 [facility] DTAP 1998 Completed [facility] 00:00:00 [facility] HIB 4 Dose Schedule 1998 Completed Unive rsity of 00:00:00 [facility] Polio (IPV/OPV) 1998 Completed [facility] of 00:00:00 [facility] DTAP 1998 Completed [facility] 00:00:00 [facility] HIB 4 Dose Schedule 1998 Completed [facility]ive rsity of 00:00:00 [facility] Polio (IPV/OPV) 1998 Completed [facility] 00:00:00 [facility] DTAP 1998 Completed [facility] 00:00:00 [facility] HIB 4 Dose Schedule 1998 Completed Unive rsity of 00:00:00 [facility] Polio (IPV/OPV) 1998 Completed [facility] 00:00:00 [facility] DTAP 1998 Completed [facility] 00:00:00 [facility] HIB 4 Dose Schedule 1998 Completed [facility]ive rsity of 00:00:00 [facility] Polio (IPV/OPV) 1998 Completed [facility] 00:00:00 [facility] DTAP 1998 Completed [facility] 00:00:00 [facility] HIB 4 Dose Schedule 1998 Completed Unive rsity of 00:00:00 [facility] Polio (IPV/OPV) 1998 Completed [facility] 00:00:00 [facility] DTAP 1998 Completed [facility] 00:00:00 [facility] HIB 4 Dose Schedule 1998 Completed [facility]ive rsity of 00:00:00 [facility] Polio (IPV/OPV) 1998 Completed [facility] 00:00:00 [facility] DTAP 1998 Completed [facility] 00:00:00 [facility] HIB 4 Dose Schedule 1998 Completed Unive rsity of 00:00:00 [facility] Polio (IPV/OPV) 1998 Completed [facility] 00:00:00 [facility] DTAP 1998 Completed [facility] 00:00:00 [facility] HIB 4 Dose Schedule 1998 Completed [facility]ive rsity of 00:00:00 [facility] Polio (IPV/OPV) 1998 Completed [facility] 00:00:00 [facility] DTAP 1998 Completed [facility] 00:00:00 [facility] HIB 4 Dose Schedule 1998 Completed Unive rsity of 00:00:00 [facility] Polio (IPV/OPV) 1998 Completed [facility] 00:00:00 [facility] DTAP 1998 Completed [facility] 00:00:00 [facility] HIB 4 Dose Schedule 1998 Completed [facility]ive [facility]ity of 00:00:00 [facility] Polio (IPV/OPV) 1998 Completed [facility] 00:00:00 [facility] DTAP 1998 Completed [facility] 00:00:00 [facility] HIB 4 Dose Schedule 1998 Completed [facility]ive rsity of 00:00:00 [facility] Polio (IPV/OPV) 1998 Completed [facility] 00:00:00 [facility] DTAP 1998 Completed [facility] 00:00:00 [facility] HIB 4 Dose Schedule 1998 Completed [facility]ive rsity of 00:00:00 [facility] Polio (IPV/OPV) 1998 Completed [facility] 00:00:00 [facility] DTAP 1998 Completed [facility] 00:00:00 [facility] HIB 4 Dose Schedule 1998 Completed [facility]ive [facility]ity of 00:00:00 [facility] Polio (IPV/OPV) 1998 Completed [facility] 00:00:00 [facility] DTAP 1998 Completed [facility] 00:00:00 [facility] HIB 4 Dose Schedule 1998 Completed [facility]ive [facility]ity of 00:00:00 [facility] Polio (IPV/OPV) 1998 Completed [facility] 00:00:00 [facility] DTAP 1998 Completed [facility] 00:00:00 [facility] HIB 4 Dose Schedule 1998 Completed [facility]ity of 00:00:00 [facility] Polio (IPV/OPV) 1998 Completed [facility] 00:00:00 [facility] DTAP 1998 Completed [facility] 00:00:00 [facility] HIB 4 Dose Schedule 1998 Completed [facility]ive rsity of 00:00:00 [facility] Polio (IPV/OPV) 1998 Completed [facility] 00:00:00 [facility] DTAP 1998 Completed [facility] 00:00:00 [facility] HIB 4 Dose Schedule 1998 Completed [facility] 00:00:00 [facility] Polio (IPV/OPV) 1998 Completed [facility] 00:00:00 [facility] DTAP 1998 Completed [facility] 00:00:00 [facility] HIB 4 Dose Schedule 1998 Completed [facility]ive [facility] 00:00:00 [facility] Polio (IPV/OPV) 1998 Completed [facility] 00:00:00 [facility] DTAP 1998 Completed [facility] 00:00:00 [facility] HIB 4 Dose Schedule 1998 Completed [facility] 00:00:00 [facility] Polio (IPV/OPV) 1998 Completed [facility] 00:00:00 [facility] DTAP 1998 Completed [facility] 00:00:00 [facility] HIB 4 Dose Schedule 1998 Completed [facility]ity of 00:00:00 [facility] Polio (IPV/OPV) 1998 Completed [facility] 00:00:00 [facility] DTAP 1998 Completed [facility] 00:00:00 [facility] HIB 4 Dose Schedule 1998 Completed [facility] 00:00:00 [facility] Polio (IPV/OPV) 1998 Completed [facility] 00:00:00 [facility] DTAP 1998 Completed [facility] 00:00:00 [facility] HIB 4 Dose Schedule 1998 Completed [facility] 00:00:00 [facility] Polio (IPV/OPV) 1998 Completed [facility] 00:00:00 [facility] DTAP 1998 Completed [facility] 00:00:00 [facility] HIB 4 Dose Schedule 1998 Completed [facility] 00:00:00 [facility] Polio (IPV/OPV) 1998 Completed [facility] 00:00:00 [facility] DTAP 1998 Completed [facility] 00:00:00 [facility] HIB 4 Dose Schedule 1998 Completed [facility] 00:00:00 [facility] Polio (IPV/OPV) 1998 Completed [facility] 00:00:00 [facility] DTAP 1998 Completed [facility] 00:00:00 [facility] HIB 4 Dose Schedule 1998 Completed [facility] 00:00:00 [facility] Polio (IPV/OPV) 1998 Completed [facility] 00:00:00 [facility] DTAP 1998 Completed [facility] 00:00:00 [facility] HIB 4 Dose Schedule 1998 Completed [facility] 00:00:00 [facility] Polio (IPV/OPV) 1998 Completed [facility] 00:00:00 [facility] DTAP 1998 Completed [facility] 00:00:00 [facility] HIB 4 Dose Schedule 1998 Completed [facility] 00:00:00 [facility] Polio (IPV/OPV) 1998 Completed [facility] 00:00:00 [facility] DTAP 1998 Completed [facility] 00:00:00 [facility] HIB 4 Dose Schedule 1998 Completed [facility] 00:00:00 [facility] Polio (IPV/OPV) 1998 Completed [facility] 00:00:00 [facility] DTAP 1998 Completed [facility] 00:00:00 [facility] HIB 4 Dose Schedule 1998 Completed [facility] 00:00:00 [facility] Polio (IPV/OPV) 1998 Completed [facility] 00:00:00 [facility] DTAP 1998 Completed [facility] 00:00:00 [facility] HIB 4 Dose Schedule 1998 Completed [facility] 00:00:00 [facility] Polio (IPV/OPV) 1998 Completed [facility] 00:00:00 [facility] DTAP 1998 Completed [facility] 00:00:00 [facility] HIB 4 Dose Schedule 1998 Completed [facility] 00:00:00 [facility] Polio (IPV/OPV) 1998 Completed [facility] 00:00:00 [facility] DTAP 1998 Completed [facility] 00:00:00 [facility] HIB 4 Dose Schedule 1998 Completed [facility] 00:00:00 [facility] Polio (IPV/OPV) 1998 Completed [facility] 00:00:00 [facility] DTAP 1998 Completed [facility] 00:00:00 [facility] HIB 4 Dose Schedule 1998 Completed [facility] 00:00:00 [facility] Polio (IPV/OPV) 1998 Completed [facility] y of 00:00:00 [facility] DTAP 1998 Completed [facility] 00:00:00 [facility] HIB 4 Dose Schedule 1998 Completed [facility] 00:00:00 [facility] Polio (IPV/OPV) 1998 Completed [facility] 00:00:00 [facility] DTAP 1998 Completed [facility] 00:00:00 [facility] HIB 4 Dose Schedule 1998 Completed [facility] 00:00:00 [facility] Polio (IPV/OPV) 1998 Completed [facility] 00:00:00 [facility] DTAP 1998 Completed [facility] 00:00:00 [facility] HIB 4 Dose Schedule 1998 Completed [facility] 00:00:00 [facility] Polio (IPV/OPV) 1998 Completed [facility] 00:00:00 [facility] DTAP 1998 Completed [facility] 00:00:00 [facility] HIB 4 Dose Schedule 1998 Completed [facility] 00:00:00 [facility] Polio (IPV/OPV) 1998 Completed [facility] 00:00:00 [facility] DTAP 1998 Completed [facility] 00:00:00 [facility] HIB 4 Dose Schedule 1998 Completed [facility] 00:00:00 [facility] Polio (IPV/OPV) 1998 Completed [facility] 00:00:00 [facility] DTAP 1998 Completed [facility] 00:00:00 [facility] HIB 4 Dose Schedule 1998 Completed [facility] 00:00:00 [facility] Polio (IPV/OPV) 1998 Completed [facility] 00:00:00 [facility] DTAP 1998 Completed [facility] 00:00:00 [facility] HIB 4 Dose Schedule 1998 Completed [facility] 00:00:00 [facility] Polio (IPV/OPV) 1998 Completed [facility] 00:00:00 [facility] DTAP 1998 Completed [facility] 00:00:00 [facility] HIB 4 Dose Schedule 1998 Completed [facility] 00:00:00 [facility] Polio (IPV/OPV) 1998 Completed [facility] 00:00:00 [facility] DTAP 1998 Completed [facility] 00:00:00 [facility] HIB 4 Dose Schedule 1998 Completed [facility] 00:00:00 [facility] Polio (IPV/OPV) 1998 Completed [facility] 00:00:00 [facility] DTAP 1998 Completed [facility] 00:00:00 [facility] HIB 4 Dose Schedule 1998 Completed [facility] 00:00:00 [facility] Polio (IPV/OPV) 1998 Completed [facility] 00:00:00 [facility] DTAP 1998 Completed [facility] 00:00:00 [facility] HIB 4 Dose Schedule 1998 Completed [facility] 00:00:00 [facility] Polio (IPV/OPV) 1998 Completed [facility] 00:00:00 [facility] DTAP 1998 Completed [facility] 00:00:00 [facility] HIB 4 Dose Schedule 1998 Completed [facility] 00:00:00 [facility] Polio (IPV/OPV) 1998 Completed [facility] 00:00:00 [facility] DTAP 1998 Completed [facility] 00:00:00 [facility] HIB 4 Dose Schedule 1998 Completed [facility] 00:00:00 [facility] Polio (IPV/OPV) 1998 Completed [facility] 00:00:00 [facility] DTAP 1998 Completed [facility] 00:00:00 [facility] HIB 4 Dose Schedule 1998 Completed [facility] 00:00:00 [facility] Polio (IPV/OPV) 1998 Completed [facility] 00:00:00 [facility] DTAP 1998 Completed [facility] 00:00:00 [facility] HIB 4 Dose Schedule 1998 Completed [facility] 00:00:00 [facility] Polio (IPV/OPV) 1998 Completed [facility] 00:00:00 [facility] DTAP 1998 Completed [facility] 00:00:00 [facility] HIB 4 Dose Schedule 1998 Completed [facility] 00:00:00 [facility] Polio (IPV/OPV) 1998 Completed [facility] 00:00:00 [facility] DTAP 1998 Completed [facility] 00:00:00 [facility] HIB 4 Dose Schedule 1998 Completed [facility] 00:00:00 [facility] Polio (IPV/OPV) 1998 Completed [facility] 00:00:00 [facility] DTAP 1998 Completed [facility] 00:00:00 [facility] HIB 4 Dose Schedule 1998 Completed [facility] 00:00:00 [facility] Polio (IPV/OPV) 1998 Completed [facility] 00:00:00 [facility] DTAP 1998 Completed [facility] 00:00:00 [facility] HIB 4 Dose Schedule 1998 Completed [facility] 00:00:00 [facility] Polio (IPV/OPV) 1998 Completed [facility] 00:00:00 [facility] DTAP 1998 Completed [facility] 00:00:00 [facility] HIB 4 Dose Schedule 1998 Completed [facility] 00:00:00 [facility] Polio (IPV/OPV) 1998 Completed [facility] 00:00:00 [facility] DTAP 1998 Completed [facility] 00:00:00 [facility] HIB 4 Dose Schedule 1998 Completed [facility] 00:00:00 [facility] Polio (IPV/OPV) 1998 Completed [facility] 00:00:00 [facility] DTAP 1998 Completed [facility] 00:00:00 [facility] HIB 4 Dose Schedule 1998 Completed [facility] 00:00:00 [facility] Polio (IPV/OPV) 1998 Completed [facility] 00:00:00 [facility] DTAP 1998 Completed [facility] 00:00:00 [facility] HIB 4 Dose Schedule 1998 Completed [facility] 00:00:00 [facility] Polio (IPV/OPV) 1998 Completed [facility] 00:00:00 [facility] DTAP 1998 Completed [facility] 00:00:00 [facility] HIB 4 Dose Schedule 1998 Completed [facility] 00:00:00 [facility] Polio (IPV/OPV) 1998 Completed [facility] 00:00:00 [facility] DTAP 1998 Completed [facility] 00:00:00 [facility] HIB 4 Dose Schedule 1998 Completed [facility] 00:00:00 [facility] Polio (IPV/OPV) 1998 Completed [facility] 00:00:00 [facility] DTAP 1998 Completed [facility] 00:00:00 [facility] HIB 4 Dose Schedule 1998 Completed [facility] 00:00:00 [facility] Polio (IPV/OPV) 1998 Completed [facility] 00:00:00 [facility] DTAP 1998 Completed [facility] 00:00:00 [facility] HIB 4 Dose Schedule 1998 Completed [facility] 00:00:00 [facility] Polio (IPV/OPV) 1998 Completed [facility] 00:00:00 [facility] DTAP 1998 Completed [facility] 00:00:00 [facility] HIB 4 Dose Schedule 1998 Completed [facility] 00:00:00 [facility] Polio (IPV/OPV) 1998 Completed [facility] 00:00:00 [facility] DTAP 1998 Completed [facility] 00:00:00 [facility] HIB 4 Dose Schedule 1998 Completed [facility] 00:00:00 [facility] Polio (IPV/OPV) 1998 Completed [facility] 00:00:00 [facility] DTAP 1998 Completed [facility] 00:00:00 [facility] HIB 4 Dose Schedule 1998 Completed [facility] 00:00:00 [facility] Polio (IPV/OPV) 1998 Completed [facility] 00:00:00 [facility] DTAP 1998 Completed [facility] 00:00:00 [facility] HIB 4 Dose Schedule 1998 Completed [facility] 00:00:00 [facility] Polio (IPV/OPV) 1998 Completed [facility] 00:00:00 [facility] DTAP 1998 Completed [facility] 00:00:00 [facility] HIB 4 Dose Schedule 1998 Completed [facility] 00:00:00 [facility] Polio (IPV/OPV) 1998 Completed [facility] 00:00:00 [facility] DTAP 1998 Completed [facility] 00:00:00 [facility] HIB 4 Dose Schedule 1998 Completed [facility] 00:00:00 [facility] Polio (IPV/OPV) 1998 Completed [facility] 00:00:00 [facility] DTAP 1998 Completed [facility] 00:00:00 [facility] HIB 4 Dose Schedule 1998 Completed [facility] 00:00:00 [facility] Polio (IPV/OPV) 1998 Completed [facility] 00:00:00 [facility] DTAP 1998 Completed [facility] 00:00:00 [facility] HIB 4 Dose Schedule 1998 Completed [facility] 00:00:00 [facility] Polio (IPV/OPV) 1998 Completed [facility] 00:00:00 [facility] DTAP 1998 Completed [facility] 00:00:00 [facility] HIB 4 Dose Schedule 1998 Completed [facility] 00:00:00 [facility] Polio (IPV/OPV) 1998 Completed [facility] 00:00:00 [facility] DTAP 1998 Completed [facility] 00:00:00 [facility] HIB 4 Dose Schedule 1998 Completed [facility] 00:00:00 [facility] Polio (IPV/OPV) 1998 Completed [facility] 00:00:00 [facility] DTAP 1998 Completed [facility] 00:00:00 [facility] HIB 4 Dose Schedule 1998 Completed [facility] 00:00:00 [facility] Polio (IPV/OPV) 1998 Completed [facility] 00:00:00 [facility] DTAP 1998 Completed [facility] 00:00:00 [facility] HIB 4 Dose Schedule 1998 Completed [facility] 00:00:00 [facility] Polio (IPV/OPV) 1998 Completed [facility] 00:00:00 [facility] DTAP 1998 Completed [facility] 00:00:00 [facility] HIB 4 Dose Schedule 1998 Completed [facility] 00:00:00 [facility] Polio (IPV/OPV) 1998 Completed [facility] 00:00:00 [facility] DTAP 1998 Completed [facility] 00:00:00 [facility] HIB 4 Dose Schedule 1998 Completed [facility] 00:00:00 [facility] Polio (IPV/OPV) 1998 Completed [facility] 00:00:00 [facility] DTAP 1998 Completed [facility] 00:00:00 [facility] HIB 4 Dose Schedule 1998 Completed [facility] 00:00:00 [facility] Polio (IPV/OPV) 1998 Completed [facility] 00:00:00 [facility] DTAP 1998 Completed [facility] 00:00:00 [facility] HIB 4 Dose Schedule 1998 Completed [facility] 00:00:00 [facility] Polio (IPV/OPV) 1998 Completed [facility] 00:00:00 [facility] DTAP 1998 Completed [facility] 00:00:00 [facility] HIB 4 Dose Schedule 1998 Completed [facility] 00:00:00 [facility] Polio (IPV/OPV) 1998 Completed [facility] 00:00:00 [facility] DTAP 1998 Completed [facility] 00:00:00 [facility] HIB 4 Dose Schedule 1998 Completed [facility] 00:00:00 [facility] Polio (IPV/OPV) 1998 Completed [facility] 00:00:00 [facility] DTAP 1998 Completed [facility] 00:00:00 [facility] HIB 4 Dose Schedule 1998 Completed [facility] 00:00:00 [facility] Polio (IPV/OPV) 1998 Completed [facility] 00:00:00 [facility] DTAP 1998 Completed [facility] 00:00:00 [facility] HIB 4 Dose Schedule 1998 Completed [facility] 00:00:00 [facility] Polio (IPV/OPV) 1998 Completed [facility] 00:00:00 [facility] DTAP 1998 Completed [facility] 00:00:00 [facility] HIB 4 Dose Schedule 1998 Completed [facility] 00:00:00 [facility] Polio (IPV/OPV) 1998 Completed [facility] 00:00:00 [facility] DTAP 1998 Completed [facility] 00:00:00 [facility] HIB 4 Dose Schedule 1998 Completed [facility] 00:00:00 [facility] Polio (IPV/OPV) 1998 Completed [facility] 00:00:00 [facility] DTAP 1998 Completed [facility] 00:00:00 [facility] HIB 4 Dose Schedule 1998 Completed [facility] 00:00:00 [facility] Polio (IPV/OPV) 1998 Completed [facility] 00:00:00 [facility] DTAP 1998 Completed [facility] 00:00:00 [facility] HIB 4 Dose Schedule 1998 Completed [facility] 00:00:00 [facility] Polio (IPV/OPV) 1998 Completed [facility] 00:00:00 [facility] DTAP 1998 Completed [facility] 00:00:00 [facility] HIB 4 Dose Schedule 1998 Completed [facility] 00:00:00 [facility] Polio (IPV/OPV) 1998 Completed [facility] 00:00:00 [facility] DTAP 1998 Completed [facility] 00:00:00 [facility] HIB 4 Dose Schedule 1998 Completed [facility] 00:00:00 [facility] Polio (IPV/OPV) 1998 Completed [facility] 00:00:00 [facility] DTAP 1998 Completed [facility] 00:00:00 [facility] [place] HIB 4 Dose Schedule 1998 Completed [facility] 00:00:00 [facility] Polio (IPV/OPV) 1998 Completed [facility] 00:00:00 [facility] DTAP 1998 Completed [facility] 00:00:00 [facility] [place] HIB 4 Dose Schedule 1998 Completed [facility] 00:00:00 [facility] Polio (IPV/OPV) 1998 Completed [facility] 00:00:00 [facility] DTAP 1998 Completed [facility] 00:00:00 [facility] HIB 4 Dose Schedule 1998 Completed [facility] 00:00:00 [facility] [place] Polio (IPV/OPV) 1998 Completed [facility] 00:00:00 [facility] DTAP 1998 Completed [facility] 00:00:00 [facility] HIB 4 Dose Schedule 1998 Completed [facility] 00:00:00 [facility] Polio (IPV/OPV) 1998 Completed [facility] 00:00:00 [facility] [place] DTAP 1998 Completed [facility] 00:00:00 [facility] HIB 4 Dose Schedule 1998 Completed [facility] 00:00:00 [facility] Polio (IPV/OPV) 1998 Completed [facility] 00:00:00 [facility] DTAP 1998 Completed [facility] 00:00:00 [facility] HIB 4 Dose Schedule 1998 Completed [facility] 00:00:00 [facility] Polio (IPV/OPV) 1998 Completed [facility] 00:00:00 [facility] [place] DTAP 1998 Completed [facility] 00:00:00 [facility] HIB 4 Dose Schedule 1998 Completed [facility] 00:00:00 [facility] Polio (IPV/OPV) 1998 Completed [facility] 00:00:00 [facility] DTAP 1998 Completed [facility] 00:00:00 [facility] HIB 4 Dose Schedule 1998 Completed [facility] 00:00:00 [facility] Polio (IPV/OPV) 1998 Completed [facility] 00:00:00 [facility] DTAP 1998 Completed [facility] 00:00:00 [facility] HIB 4 Dose Schedule 1998 Completed [facility] 00:00:00 [facility] Polio (IPV/OPV) 1998 Completed [facility] 00:00:00 [facility] DTAP 1998 Completed [facility] 00:00:00 [facility] HIB 4 Dose Schedule 1998 Completed [facility] 00:00:00 [facility] Polio (IPV/OPV) 1998 Completed [facility] 00:00:00 [facility] DTAP 1998 Completed [facility] 00:00:00 [facility] HIB 4 Dose Schedule 1998 Completed [facility] 00:00:00 [facility] Polio (IPV/OPV) 1998 Completed [facility] 00:00:00 [facility] DTAP 1998 Completed [facility] 00:00:00 [facility] HIB 4 Dose Schedule 1998 Completed [facility] 00:00:00 [facility] Polio (IPV/OPV) 1998 Completed [facility] 00:00:00 [facility] DTAP 1998 Completed [facility] 00:00:00 [facility] HIB 4 Dose Schedule 1998 Completed [facility] 00:00:00 [facility] Polio (IPV/OPV) 1998 Completed [facility] 00:00:00 [facility] DTAP 1998 Completed [facility] 00:00:00 [facility] HIB 4 Dose Schedule 1998 Completed [facility] 00:00:00 [facility] Polio (IPV/OPV) 1998 Completed [facility] 00:00:00 [facility] DTAP 1998 Completed [facility] 00:00:00 [facility] HIB 4 Dose Schedule 1998 Completed [facility] 00:00:00 [facility] Polio (IPV/OPV) 1998 Completed [facility] 00:00:00 [facility] DTAP 1998 Completed [facility] 00:00:00 [facility] HIB 4 Dose Schedule 1998 Completed [facility] 00:00:00 [facility] [place] Polio (IPV/OPV) 1998 Completed [facility] 00:00:00 [facility] DTAP 1998 Completed [facility] 00:00:00 [facility] HIB 4 Dose Schedule 1998 Completed [facility] 00:00:00 [facility] Polio (IPV/OPV) 1998 Completed [facility] 00:00:00 [facility] DTAP 1998 Completed [facility] 00:00:00 [facility] HIB 4 Dose Schedule 1998 Completed [facility] 00:00:00 [facility] Polio (IPV/OPV) 1998 Completed [facility] 00:00:00 [facility] DTAP 1998 Completed [facility] 00:00:00 [facility] HIB 4 Dose Schedule 1998 Completed [facility] 00:00:00 [facility] Polio (IPV/OPV) 1998 Completed [facility] 00:00:00 [facility] DTAP 1998 Completed [facility] 00:00:00 [facility] HIB 4 Dose Schedule 1998 Completed [facility] 00:00:00 [facility] Polio (IPV/OPV) 1998 Completed [facility] 00:00:00 [facility] DTAP 1998 Completed [facility] 00:00:00 [facility] HIB 4 Dose Schedule 1998 Completed [facility] 00:00:00 [facility] Polio (IPV/OPV) 1998 Completed [facility] 00:00:00 [facility] [place] DTAP 1998 Completed [facility] 00:00:00 [facility] HIB 4 Dose Schedule 1998 Completed [facility] 00:00:00 [facility] Polio (IPV/OPV) 1998 Completed [facility] 00:00:00 [facility] DTAP 1998 Completed [facility] 00:00:00 [facility] HIB 4 Dose Schedule 1998 Completed [facility] 00:00:00 [facility] Polio (IPV/OPV) 1998 Completed [facility] 00:00:00 [facility] DTAP 1998 Completed [facility] 00:00:00 [facility] HIB 4 Dose Schedule 1998 Completed [facility] 00:00:00 [facility] Polio (IPV/OPV) 1998 Completed [facility] 00:00:00 [facility] DTAP 1998 Completed [facility] 00:00:00 [facility] HIB 4 Dose Schedule 1998 Completed [facility] 00:00:00 [facility] Polio (IPV/OPV) 1998 Completed [facility] 00:00:00 [facility] DTAP 1998 Completed [facility] 00:00:00 [facility] HIB 4 Dose Schedule 1998 Completed [facility] 00:00:00 [facility] Polio (IPV/OPV) 1998 Completed [facility] 00:00:00 [facility] DTAP 1998 Completed [facility] 00:00:00 [facility] HIB 4 Dose Schedule 1998 Completed [facility] 00:00:00 [facility] Polio (IPV/OPV) 1998 Completed [facility] 00:00:00 [facility] DTAP 1998 Completed [facility] 00:00:00 [facility] HIB 4 Dose Schedule 1998 Completed [facility] 00:00:00 [facility] Polio (IPV/OPV) 1998 Completed [facility] 00:00:00 [facility] [place] DTAP 1998 Completed [facility] 00:00:00 [facility] HIB 4 Dose Schedule 1998 Completed [facility] 00:00:00 [facility] Polio (IPV/OPV) 1998 Completed [facility] 00:00:00 [facility] DTAP 1998 Completed [facility] 00:00:00 [facility] HIB 4 Dose Schedule 1998 Completed [facility] 00:00:00 [facility] Polio (IPV/OPV) 1998 Completed [facility] 00:00:00 [facility] DTAP 1998 Completed [facility] 00:00:00 [facility] HIB 4 Dose Schedule 1998 Completed [facility] 00:00:00 [facility] Polio (IPV/OPV) 1998 Completed [facility] 00:00:00 [facility] DTAP 1998 Completed [facility] 00:00:00 [facility] HIB 4 Dose Schedule 1998 Completed [facility] 00:00:00 [facility] Polio (IPV/OPV) 1998 Completed [facility] 00:00:00 [facility] DTAP 1998 Completed [facility] 00:00:00 [facility] HIB 4 Dose Schedule 1998 Completed [facility] 00:00:00 [facility] Polio (IPV/OPV) 1998 Completed [facility] 00:00:00 [facility] DTAP 1998 Completed [facility] 00:00:00 [facility] HIB 4 Dose Schedule 1998 Completed [facility] 00:00:00 [facility] Polio (IPV/OPV) 1998 Completed [facility] 00:00:00 [facility] DTAP 1998 Completed [facility] 00:00:00 [facility] HIB 4 Dose Schedule 1998 Completed [facility] 00:00:00 [facility] Polio (IPV/OPV) 1998 Completed [facility] 00:00:00 [facility] DTAP 1998 Completed [facility] 00:00:00 [facility] [place] HIB 4 Dose Schedule 1998 Completed [facility] 00:00:00 [facility] Polio (IPV/OPV) 1998 Completed [facility] 00:00:00 [facility] DTAP 1998 Completed [facility] 00:00:00 [facility] HIB 4 Dose Schedule 1998 Completed [facility] 00:00:00 [facility] Polio (IPV/OPV) 1998 Completed [facility] 00:00:00 [facility] DTAP 1998 Completed [facility] 00:00:00 [facility] HIB 4 Dose Schedule 1998 Completed [facility] 00:00:00 [facility] Polio (IPV/OPV) 1998 Completed [facility] 00:00:00 [facility] DTAP 1998 Completed [facility] 00:00:00 [facility] HIB 4 Dose Schedule 1998 Completed [facility] 00:00:00 [facility] Polio (IPV/OPV) 1998 Completed [facility] 00:00:00 [facility] DTAP 1998 Completed [facility] 00:00:00 [facility] HIB 4 Dose Schedule 1998 Completed [facility] 00:00:00 [facility] Polio (IPV/OPV) 1998 Completed [facility] 00:00:00 [facility] DTAP 1998 Completed [facility] 00:00:00 [facility] HIB 4 Dose Schedule 1998 Completed [facility] 00:00:00 [facility] Polio (IPV/OPV) 1998 Completed [facility] 00:00:00 [facility] DTAP 1998 Completed [facility] 00:00:00 [facility] HIB 4 Dose Schedule 1998 Completed [facility] 00:00:00 [facility] Polio (IPV/OPV) 1998 Completed [facility] 00:00:00 [facility] DTAP 1998 Completed [facility] 00:00:00 [facility] HIB 4 Dose Schedule 1998 Completed [facility] 00:00:00 [facility] Polio (IPV/OPV) 1998 Completed [facility] 00:00:00 [facility] DTAP 1998 Completed [facility] 00:00:00 [facility] HIB 4 Dose Schedule 1998 Completed [facility] 00:00:00 [facility] Polio (IPV/OPV) 1998 Completed [facility] 00:[facility]:00 [facility] DTAP 1998 Completed [facility] 00:00:00 [facility] HIB 4 Dose Schedule 1998 Completed [facility] 00:00:00 [facility] Polio (IPV/OPV) 1998 Completed [facility] 00:00:00 [facility] DTAP 1998 Completed [facility] 00:00:00 [facility] HIB 4 Dose Schedule 1998 Completed [facility] 00:00:00 [facility] Polio (IPV/OPV) 1998 Completed [facility] 00:00:00 [facility] DTAP 1998 Completed [facility] 00:00:00 [facility] HIB 4 Dose Schedule 1998 Completed [facility] 00:00:00 [facility] Polio (IPV/OPV) 1998 Completed [facility] 00:00:00 [facility] DTAP 1998 Completed [facility] 00:00:00 [facility] HIB 4 Dose Schedule 1998 Completed [facility] 00:00:00 [facility] Polio (IPV/OPV) 1998 Completed [facility] 00:00:00 [facility] DTAP 1998 Completed [facility] 00:00:00 [facility] HIB 4 Dose Schedule 1998 Completed [facility] 00:00:00 [facility] Polio (IPV/OPV) 1998 Completed [facility] 00:00:00 [facility] DTAP 1998 Completed [facility] 00:00:00 [facility] HIB 4 Dose Schedule 1998 Completed [facility] 00:00:00 [facility] Polio (IPV/OPV) 1998 Completed [facility] 00:00:00 [facility] DTAP 1998 Completed [facility] 00:00:00 [facility] HIB 4 Dose Schedule 1998 Completed [facility] 00:00:00 [facility] Polio (IPV/OPV) 1998 Completed [facility] 00[facility]00:00 [facility] DTAP 1998 Completed [facility] 00:00:00 [facility] HIB 4 Dose Schedule 1998 Completed [facility] 00:00:00 [facility] Polio (IPV/OPV) 1998 Completed [facility] 00[facility]00:00 [facility] DTAP 1998 Completed [facility] 00:00:00 [facility] HIB 4 Dose Schedule 1998 Completed [facility] 00:00:00 [facility] Polio (IPV/OPV) 1998 Completed [facility] 00:00:00 [facility] DTAP 1998 Completed [facility] 00:00:00 [facility] HIB 4 Dose Schedule 1998 Completed [facility] 00:00:00 [facility] Polio (IPV/OPV) 1998 Completed [facility] 00:00:00 [facility] DTAP 1998 Completed [facility] 00:00:00 [facility] HIB 4 Dose Schedule 1998 Completed [facility] 00:00:00 [facility] Polio (IPV/OPV) 1998 Completed [facility] 00:00:00 [facility] DTAP 1998 Completed [facility] 00:00:00 [facility] HIB 4 Dose Schedule 1998 Completed [facility] 00:00:00 [facility] Polio (IPV/OPV) 1998 Completed [facility] 00:00:00 [facility] DTAP 1998 Completed [facility] 00:00:00 [facility] HIB 4 Dose Schedule 1998 Completed [facility] 00:00:00 [facility] Polio (IPV/OPV) 1998 Completed [facility] 00:00:00 [facility] DTAP 1998 Completed [facility] 00:00:00 [facility] HIB 4 Dose Schedule 1998 Completed [facility] 00:00:00 [facility] Polio (IPV/OPV) 1998 Completed [facility] 00:00:00 [facility] DTAP 1998 Completed [facility] 00:00:00 [facility] HIB 4 Dose Schedule 1998 Completed [facility] 00:00:00 [facility] Polio (IPV/OPV) 1998 Completed [facility] 00:00:00 [facility] DTAP 1998 Completed [facility] 00:00:00 [facility] HIB 4 Dose Schedule 1998 Completed [facility] 00:00:00 [facility] Polio (IPV/OPV) 1998 Completed [facility] 00:00:00 [facility] DTAP 1998 Completed [facility] 00:00:00 [facility] HIB 4 Dose Schedule 1998 Completed [facility] 00:00:00 [facility] Polio (IPV/OPV) 1998 Completed [facility] 00:00:00 [facility] DTAP 1998 Completed [facility] 00:00:00 [facility] HIB 4 Dose Schedule 1998 Completed [facility] 00:00:00 [facility] Polio (IPV/OPV) 1998 Completed [facility] 00:00:00 [facility] DTAP 1998 Completed [facility] 00:00:00 [facility] HIB 4 Dose Schedule 1998 Completed [facility] 00:00:00 [facility] Polio (IPV/OPV) 1998 Completed [facility] 00:00:00 [facility] DTAP 1998 Completed [facility] 00:00:00 [facility] HIB 4 Dose Schedule 1998 Completed [facility] 00:00:00 [facility] Polio (IPV/OPV) 1998 Completed [facility] 00:00:00 [facility] DTAP 1998 Completed [facility] 00:00:00 [facility] HIB 4 Dose Schedule 1998 Completed [facility] 00:00:00 [facility] Polio (IPV/OPV) 1998 Completed [facility] 00:00:00 [facility] DTAP 1998 Completed [facility] 00:00:00 [facility] HIB 4 Dose Schedule 1998 Completed [facility] 00:00:00 [facility] Polio (IPV/OPV) 1998 Completed [facility] 00:00:00 [facility] DTAP 1998 Completed [facility] 00:00:00 [facility] HIB 4 Dose Schedule 1998 Completed [facility] 00:00:00 [facility] Polio (IPV/OPV) 1998 Completed [facility] 00:00:00 [facility] DTAP 1998 Completed [facility] 00:00:00 [facility] HIB 4 Dose Schedule 1998 Completed [facility] 00:00:00 [facility] Polio (IPV/OPV) 1998 Completed [facility] 00:00:00 [facility] DTAP 1998 Completed [facility] 00:00:00 [facility] HIB 4 Dose Schedule 1998 Completed [facility] 00:00:00 [facility] Polio (IPV/OPV) 1998 Completed [facility] 00:00:00 [facility] DTAP 1998 Completed [facility] 00:00:00 [facility] HIB 4 Dose Schedule 1998 Completed [facility] 00:00:00 [facility] Polio (IPV/OPV) 1998 Completed [facility] 00:00:00 [facility] DTAP 1998 Completed [facility] 00:00:00 [facility] HIB 4 Dose Schedule 1998 Completed [facility] 00:00:00 [facility] Polio (IPV/OPV) 1998 Completed [facility] 00:00:00 [facility] DTAP 1998 Completed [facility] 00:00:00 [facility] HIB 4 Dose Schedule 1998 Completed [facility] 00:00:00 [facility] Polio (IPV/OPV) 1998 Completed [facility] 00:00:00 [facility] DTAP 1998 Completed [facility] 00:00:00 [facility] HIB 4 Dose Schedule 1998 Completed [facility] 00:00:00 [facility] Polio (IPV/OPV) 1998 Completed [facility] 00:00:00 [facility] DTAP 1998 Completed [facility] 00:00:00 [facility] HIB 4 Dose Schedule 1998 Completed [facility] 00:00:00 [facility] Polio (IPV/OPV) 1998 Completed [facility] 00:00:00 [facility] DTAP 1998 Completed [facility] 00:00:00 [facility] HIB 4 Dose Schedule 1998 Completed [facility] 00:00:00 [facility] Polio (IPV/OPV) 1998 Completed [facility] 00:00:00 [facility] DTAP 1998 Completed [facility] 00:00:00 [facility] HIB 4 Dose Schedule 1998 Completed [facility] 00:00:00 [facility] Polio (IPV/OPV) 1998 Completed [facility] 00:00:00 [facility] DTAP 1998 Completed [facility] 00:00:00 [facility] HIB 4 Dose Schedule 1998 Completed [facility] 00:00:00 [facility] Polio (IPV/OPV) 1998 Completed [facility] 00:00:00 [facility] DTAP 1998 Completed [facility] 00:00:00 [facility] HIB 4 Dose Schedule 1998 Completed [facility] 00:00:00 [facility] Polio (IPV/OPV) 1998 Completed [facility] 00:00:00 [facility] DTAP 1998 Completed [facility] 00:00:00 [facility] HIB 4 Dose Schedule 1998 Completed [facility] 00:00:00 [facility] Polio (IPV/OPV) 1998 Completed [facility] 00:00:00 [facility] DTAP 1998 Completed [facility] 00:00:00 [facility] HIB 4 Dose Schedule 1998 Completed [facility] 00:00:00 [facility] Polio (IPV/OPV) 1998 Completed [facility] 00:00:00 [facility] DTAP 1998 Completed [facility] 00:00:00 [facility] HIB 4 Dose Schedule 1998 Completed [facility] 00:00:00 [facility] Polio (IPV/OPV) 1998 Completed [facility] 00:00:00 [facility] DTAP 1998 Completed [facility] 00:00:00 [facility] HIB 4 Dose Schedule 1998 Completed [facility] 00:00:00 [facility] Polio (IPV/OPV) 1998 Completed [facility] 00:00:00 [facility] DTAP 1998 Completed [facility] 00:00:00 [facility] HIB 4 Dose Schedule 1998 Completed [facility] 00:00:00 [facility] Polio (IPV/OPV) 1998 Completed [facility] 00:00:00 [facility] DTAP 1998 Completed [facility] 00:00:00 [facility] HIB 4 Dose Schedule 1998 Completed [facility] 00:00:00 [facility] Polio (IPV/OPV) 1998 Completed [facility] 00:00:00 [facility] DTAP 1998 Completed [facility] 00:00:00 [facility] HIB 4 Dose Schedule 1998 Completed [facility] 00:00:00 [facility] Polio (IPV/OPV) 1998 Completed [facility] 00:00:00 [facility] DTAP 1998 Completed [facility] 00:00:00 [facility] HIB 4 Dose Schedule 1998 Completed [facility] 00:00:00 [facility] Polio (IPV/OPV) 1998 Completed [facility] 00:00:00 [facility] DTAP 1998 Completed [facility] 00:00:00 [facility] HIB 4 Dose Schedule 1998 Completed [facility] 00:00:00 [facility] Polio (IPV/OPV) 1998 Completed [facility] 00:00:00 [facility] DTAP 1998 Completed [facility] 00:00:00 [facility] HIB 4 Dose Schedule 1998 Completed [facility] 00:00:00 [facility] Polio (IPV/OPV) 1998 Completed [facility] 00:00:00 [facility] DTAP 1998 Completed [facility] 00:00:00 [facility] HIB 4 Dose Schedule 1998 Completed [facility] 00:00:00 [facility] Polio (IPV/OPV) 1998 Completed [facility] 00:00:00 [facility] DTAP 1998 Completed [facility] 00:00:00 [facility] HIB 4 Dose Schedule 1998 Completed [facility] 00:00:00 [facility] Polio (IPV/OPV) 1998 Completed [facility] 00:00:00 [facility] DTAP 1998 Completed [facility] 00:00:00 [facility] HIB 4 Dose Schedule 1998 Completed [facility] 00:00:00 [facility] Polio (IPV/OPV) 1998 Completed [facility] 00:00:00 [facility] DTAP 1998 Completed [facility] 00:00:00 [facility] HIB 4 Dose Schedule 1998 Completed [facility] 00:00:00 [facility] Polio (IPV/OPV) 1998 Completed [facility] 00:00:00 [facility] DTAP 1998 Completed [facility] 00:00:00 [facility] HIB 4 Dose Schedule 1998 Completed [facility] 00:00:00 [facility] Polio (IPV/OPV) 1998 Completed [facility] 00:00:00 [facility] DTAP 1998 Completed [facility] 00:00:00 [facility] HIB 4 Dose Schedule 1998 Completed [facility] 00:00:00 [facility] Polio (IPV/OPV) 1998 Completed [facility] 00:00:00 [facility] DTAP 1998 Completed [facility] 00:00:00 [facility] HIB 4 Dose Schedule 1998 Completed [facility] 00:00:00 [facility] Polio (IPV/OPV) 1998 Completed [facility] 00:00:00 [facility] DTAP 1998 Completed [facility] 00:00:00 [facility] HIB 4 Dose Schedule 1998 Completed [facility] 00:00:00 [facility] Polio (IPV/OPV) 1998 Completed [facility] 00:00:00 [facility] DTAP 1998 Completed [facility] 00:00:00 [facility] HIB 4 Dose Schedule 1998 Completed [facility] 00:00:00 [facility] Polio (IPV/OPV) 1998 Completed [facility] 00:00:00 [facility] DTAP 1998 Completed [facility] 00:00:00 [facility] HIB 4 Dose Schedule 1998 Completed [facility] 00:00:00 [facility] Polio (IPV/OPV) 1998 Completed [facility] 00:00:00 [facility] DTAP 1998 Completed [facility] 00:00:00 [facility] HIB 4 Dose Schedule 1998 Completed [facility] 00:00:00 [facility] Polio (IPV/OPV) 1998 Completed [facility] 00:00:00 [facility] DTAP 1998 Completed [facility] 00:00:00 [facility] HIB 4 Dose Schedule 1998 Completed [facility] 00:00:00 [facility] Polio (IPV/OPV) 1998 Completed [facility] 00:00:00 [facility] DTAP 1998 Completed [facility] 00:00:00 [facility] HIB 4 Dose Schedule 1998 Completed [facility] 00:00:00 [facility] Polio (IPV/OPV) 1998 Completed [facility] 00:00:00 [facility] DTAP 1998 Completed [facility] 00:00:00 [facility] HIB 4 Dose Schedule 1998 Completed [facility] 00:00:00 [facility] Polio (IPV/OPV) 1998 Completed [facility] 00:00:00 [facility] DTAP 1998 Completed [facility] 00:00:00 [facility] HIB 4 Dose Schedule 1998 Completed [facility] 00:00:00 [facility] Polio (IPV/OPV) 1998 Completed [facility] 00:00:00 [facility] DTAP 1998 Completed [facility] 00:00:00 [facility] HIB 4 Dose Schedule 1998 Completed [facility] 00:00:00 [facility] Polio (IPV/OPV) 1998 Completed [facility] 00:00:00 [facility] Hep B, Adol or Pedi 1998 Completed [facility] Dosage 00:00:00 [facility] Hep B, Adol or Pedi 1998 Completed [facility] Dosage 00:00:00 [facility] Hep B, Adol or Pedi 1998 Completed [facility] Dosage 00:00:00 [facility] Hep B, Adol or Pedi 1998 Completed [facility] Dosage 00:00:00 [facility] Hep B, Adol or Pedi 1998 Completed [facility] Dosage 00:00:00 [facility] Hep B, Adol or Pedi 1998 Completed [facility] Dosage 00:00:00 [facility] Hep B, Adol or Pedi 1998 Completed [facility] Dosage 00:00:00 [facility] Hep B, Adol or Pedi 1998 Completed [facility] Dosage 00:00:00 [facility] Hep B, Adol or Pedi 1998 Completed [facility] Dosage 00:00:00 [facility] Hep B, Adol or Pedi 1998 Completed [facility] Dosage 00:00:00 [facility] Hep B, Adol or Pedi 1998 Completed [facility] Dosage 00:00:00 [facility] Hep B, Adol or Pedi 1998 Completed [facility] Dosage 00:00:00 [facility] Hep B, Adol or Pedi 1998 Completed [facility] Dosage 00:00:00 [facility] Hep B, Adol or Pedi 1998 Completed [facility] Dosage 00:00:00 [facility] Hep B, Adol or Pedi 1998 Completed [facility] Dosage 00:00:00 [facility] Hep B, Adol or Pedi 1998 Completed [facility] Dosage 00:00:00 [facility] Hep B, Adol or Pedi 1998 Completed [facility] Dosage 00:00:00 [facility] Hep B, Adol or Pedi 1998 Completed [facility] Dosage 00:00:00 [facility] Hep B, Adol or Pedi 1998 Completed [facility] Dosage 00:00:00 [facility] Hep B, Adol or Pedi 1998 Completed [facility] Dosage 00:00:00 [facility] Hep B, Adol or Pedi 1998 Completed [facility] Dosage 00:00:00 [facility] Hep B, Adol or Pedi 1998 Completed [facility] Dosage 00:00:00 [facility] Hep B, Adol or Pedi 1998 Completed [facility] Dosage 00:00:00 [facility] Hep B, Adol or Pedi 1998 Completed [facility] Dosage 00:00:00 [facility] Hep B, Adol or Pedi 1998 Completed [facility] Dosage 00:00:00 [facility] Hep B, Adol or Pedi 1998 Completed [facility] Dosage 00:00:00 [facility] Hep B, Adol or Pedi 1998 Completed [facility] Dosage 00:00:00 [facility] Hep B, Adol or Pedi 1998 Completed [facility] Dosage 00:00:00 [facility] Hep B, Adol or Pedi 1998 Completed [facility] Dosage 00:00:00 [facility] Hep B, Adol or Pedi 1998 Completed [facility] Dosage 00:00:00 [facility] Hep B, Adol or Pedi 1998 Completed [facility] Dosage 00:00:00 [facility] Hep B, Adol or Pedi 1998 Completed [facility] Dosage 00:00:00 [facility] Hep B, Adol or Pedi 1998 Completed [facility] Dosage 00:00:00 [facility] Hep B, Adol or Pedi 1998 Completed [facility] Dosage 00:00:00 [facility] Hep B, Adol or Pedi 1998 Completed [facility] Dosage 00:00:00 [facility] Hep B, Adol or Pedi 1998 Completed [facility] Dosage 00:00:00 [facility] Hep B, Adol or Pedi 1998 Completed [facility] Dosage 00:00:00 [facility] Hep B, Adol or Pedi 1998 Completed [facility] Dosage 00:00:00 [facility] Hep B, Adol or Pedi 1998 Completed [facility] Dosage 00:00:00 [facility] Hep B, Adol or Pedi 1998 Completed [facility] Dosage 00:00:00 [facility] Hep B, Adol or Pedi 1998 Completed [facility] Dosage 00:00:00 [facility] Hep B, Adol or Pedi 1998 Completed [facility] Dosage 00:00:00 [facility] Hep B, Adol or Pedi 1998 Completed [facility] Dosage 00:00:00 [facility] Hep B, Adol or Pedi 1998 Completed [facility] Dosage 00:00:00 [facility] Hep B, Adol or Pedi 1998 Completed [facility] Dosage 00:00:00 [facility] Hep B, Adol or Pedi 1998 Completed [facility] Dosage 00:00:00 [facility] Hep B, Adol or Pedi 1998 Completed [facility] Dosage 00:00:00 [facility] Hep B, Adol or Pedi 1998 Completed [facility] Dosage 00:00:00 [facility] Hep B, Adol or Pedi 1998 Completed [facility] Dosage 00:00:00 [facility] Hep B, Adol or Pedi 1998 Completed [facility] Dosage 00:00:00 [facility] Hep B, Adol or Pedi 1998 Completed [facility] Dosage 00:00:00 [facility] Hep B, Adol or Pedi 1998 Completed [facility] Dosage 00:00:00 [facility] Hep B, Adol or Pedi 1998 Completed [facility] Dosage 00:00:00 [facility] Hep B, Adol or Pedi 1998 Completed [facility] Dosage 00:00:00 [facility] Hep B, Adol or Pedi 1998 Completed [facility] Dosage 00:00:00 [facility] Hep B, Adol or Pedi 1998 Completed [facility] Dosage 00:00:00 [facility] Hep B, Adol or Pedi 1998 Completed [facility] Dosage 00:00:00 [facility] Hep B, Adol or Pedi 1998 Completed [facility] Dosage 00:00:00 [facility] Hep B, Adol or Pedi 1998 Completed [facility] Dosage 00:00:00 [facility] Hep B, Adol or Pedi 1998 Completed [facility] Dosage 00:00:00 [facility] Hep B, Adol or Pedi 1998 Completed [facility] Dosage 00:00:00 [facility] Hep B, Adol or Pedi 1998 Completed [facility] Dosage 00:00:00 [facility] Hep B, Adol or Pedi 1998 Completed [facility] Dosage 00:00:00 [facility] Hep B, Adol or Pedi 1998 Completed [facility] Dosage 00:00:00 [facility] Hep B, Adol or Pedi 1998 Completed [facility] Dosage 00:00:00 [facility] Hep B, Adol or Pedi 1998 Completed [facility] Dosage 00:00:00 [facility] Hep B, Adol or Pedi 1998 Completed [facility] Dosage 00:00:00 [facility] Hep B, Adol or Pedi 1998 Completed [facility] Dosage 00:00:00 [facility] Hep B, Adol or Pedi 1998 Completed [facility] Dosage 00:00:00 [facility] Hep B, Adol or Pedi 1998 Completed [facility] Dosage 00:00:00 [facility] Hep B, Adol or Pedi 1998 Completed [facility] Dosage 00:00:00 [facility] Hep B, Adol or Pedi 1998 Completed [facility] Dosage 00:00:00 [facility] Hep B, Adol or Pedi 1998 Completed [facility] Dosage 00:00:00 [facility] Hep B, Adol or Pedi 1998 Completed [facility] Dosage 00:00:00 [facility] Hep B, Adol or Pedi 1998 Completed [facility] Dosage 00:00:00 [facility] Hep B, Adol or Pedi 1998 Completed [facility] Dosage 00:00:00 [facility] Hep B, Adol or Pedi 1998 Completed [facility] Dosage 00:00:00 [facility] Hep B, Adol or Pedi 1998 Completed [facility] Dosage 00:00:00 [facility] Hep B, Adol or Pedi 1998 Completed [facility] Dosage 00:00:00 [facility] Hep B, Adol or Pedi 1998 Completed [facility] Dosage 00:00:00 [facility] Hep B, Adol or Pedi 1998 Completed [facility] Dosage 00:00:00 [facility] Hep B, Adol or Pedi 1998 Completed [facility] Dosage 00:00:00 [facility] Hep B, Adol or Pedi 1998 Completed [facility] Dosage 00:00:00 [facility] Hep B, Adol or Pedi 1998 Completed [facility] Dosage 00:00:00 [facility] Hep B, Adol or Pedi 1998 Completed [facility] Dosage 00:00:00 [facility] Hep B, Adol or Pedi 1998 Completed [facility] Dosage 00:00:00 [facility] Hep B, Adol or Pedi 1998 Completed [facility] Dosage 00:00:00 [facility] Hep B, Adol or Pedi 1998 Completed [facility] Dosage 00:00:00 [facility] Hep B, Adol or Pedi 1998 Completed [facility] Dosage 00:00:00 [facility] Hep B, Adol or Pedi 1998 Completed [facility] Dosage 00:00:00 [facility] Hep B, Adol or Pedi 1998 Completed [facility] Dosage 00:00:00 [facility] Hep B, Adol or Pedi 1998 Completed [facility] Dosage 00:00:00 [facility] Hep B, Adol or Pedi 1998 Completed [facility] Dosage 00:00:00 [facility] Hep B, Adol or Pedi 1998 Completed [facility] of Dosage 00:00:00 [facility] Hep B, Adol or Pedi 1998 Completed [facility] Dosage 00:00:00 [facility] Hep B, Adol or Pedi 1998 Completed [facility] Dosage 00:00:00 [facility] Hep B, Adol or Pedi 1998 Completed [facility] of Dosage 00:00:00 [facility] Hep B, Adol or Pedi 1998 Completed [facility] of Dosage 00:00:00 [facility] Hep B, Adol or Pedi 1998 Completed [facility] of Dosage 00:00:00 [facility] Hep B, Adol or Pedi 1998 Completed [facility] of Dosage 00:00:00 [facility] Hep B, Adol or Pedi 1998 Completed [facility] of Dosage 00:00:00 [facility] Hep B, Adol or Pedi 1998 Completed [facility] of Dosage 00:00:00 [facility] Hep B, Adol or Pedi 1998 Completed [facility] of Dosage 00:00:00 [facility] Hep B, Adol or Pedi 1998 Completed [facility] of Dosage 00:00:00 [facility] Hep B, Adol or Pedi 1998 Completed [facility] of Dosage 00:00:00 [facility] Hep B, Adol or Pedi 1998 Completed [facility] of Dosage 00:00:00 [facility] Hep B, Adol or Pedi 1998 Completed [facility] of Dosage 00:00:00 [facility] Hep B, Adol or Pedi 1998 Completed [facility] of Dosage 00:00:00 [facility] Hep B, Adol or Pedi 1998 Completed [facility] of Dosage 00:00:00 [facility] Hep B, Adol or Pedi 1998 Completed [facility] of Dosage 00:00:00 [facility] Hep B, Adol or Pedi 1998 Completed [facility] of Dosage 00:00:00 [facility] Hep B, Adol or Pedi 1998 Completed [facility] of Dosage 00:00:00 [facility] Hep B, Adol or Pedi 1998 Completed [facility] of Dosage 00:00:00 [facility] Hep B, Adol or Pedi 1998 Completed [facility] of Dosage 00:00:00 [facility] Hep B, Adol or Pedi 1998 Completed [facility] of Dosage 00:00:00 [facility] Hep B, Adol or Pedi 1998 Completed [facility] of Dosage 00:00:00 [facility] Hep B, Adol or Pedi 1998 Completed [facility] of Dosage 00:00:00 [facility] Hep B, Adol or Pedi 1998 Completed [facility] of Dosage 00:00:00 [facility] Hep B, Adol or Pedi 1998 Completed [facility] of Dosage 00:00:00 [facility] Hep B, Adol or Pedi 1998 Completed [facility] of Dosage 00:00:00 [facility] Hep B, Adol or Pedi 1998 Completed [facility] of Dosage 00:00:00 [facility] Hep B, Adol or Pedi 1998 Completed [facility] of Dosage 00:00:00 [facility] Hep B, Adol or Pedi 1998 Completed [facility] of Dosage 00:00:00 [facility] Hep B, Adol or Pedi 1998 Completed [facility] of Dosage 00:00:00 [facility] Hep B, Adol or Pedi 1998 Completed [facility] of Dosage 00:00:00 [facility] Hep B, Adol or Pedi 1998 Completed [facility] of Dosage 00:00:00 [facility] Hep B, Adol or Pedi 1998 Completed [facility] of Dosage 00:00:00 [facility] Hep B, Adol or Pedi 1998 Completed [facility] Dosage 00:00:00 [facility] Hep B, Adol or Pedi 1998 Completed [facility] of Dosage 00:00:00 [facility] Hep B, Adol or Pedi 1998 Completed [facility] of Dosage 00:00:00 [facility] Hep B, Adol or Pedi 1998 Completed [facility] of Dosage 00:00:00 [facility] Hep B, Adol or Pedi 1998 Completed [facility] of Dosage 00:00:00 [facility] Hep B, Adol or Pedi 1998 Completed [facility] of Dosage 00:00:00 [facility] Hep B, Adol or Pedi 1998 Completed [facility] Dosage 00:00:00 [facility] Hep B, Adol or Pedi 1998 Completed [facility] Dosage 00:00:00 [facility] Hep B, Adol or Pedi 1998 Completed [facility] Dosage 00:00:00 [facility] Hep B, Adol or Pedi 1998 Completed [facility] Dosage 00:00:00 [facility] Hep B, Adol or Pedi 1998 Completed [facility] of Dosage 00:00:00 [facility] Hep B, Adol or Pedi 1998 Completed [facility] Dosage 00:00:00 [facility] Hep B, Adol or Pedi 1998 Completed [facility] of Dosage 00:00:00 [facility] Hep B, Adol or Pedi 1998 Completed [facility] Dosage 00:00:00 [facility] Hep B, Adol or Pedi 1998 Completed [facility] Dosage 00:00:00 [facility] Hep B, Adol or Pedi 1998 Completed [facility] Dosage 00:00:00 [facility] Hep B, Adol or Pedi 1998 Completed [facility] of Dosage 00:00:00 [facility] Hep B, Adol or Pedi 1998 Completed [facility] of Dosage 00:00:00 [facility] Hep B, Adol or Pedi 1998 Completed [facility] of Dosage 00:00:00 [facility] Hep B, Adol or Pedi 1998 Completed [facility] of Dosage 00:00:00 [facility] Hep B, Adol or Pedi 1998 Completed [facility] Dosage 00:00:00 [facility] Hep B, Adol or Pedi 1998 Completed [facility] Dosage 00:00:00 [facility] Hep B, Adol or Pedi 1998 Completed [facility] Dosage 00:00:00 [facility] Hep B, Adol or Pedi 1998 Completed [facility] Dosage 00:00:00 [facility] Hep B, Adol or Pedi 1998 Completed [facility] Dosage 00:00:00 [facility] Hep B, Adol or Pedi 1998 Completed [facility] Dosage 00:00:00 [facility] Hep B, Adol or Pedi 1998 Completed [facility] Dosage 00:00:00 [facility] Hep B, Adol or Pedi 1998 Completed [facility] Dosage 00:00:00 [facility] Hep B, Adol or Pedi 1998 Completed [facility] Dosage 00:00:00 [facility] Hep B, Adol or Pedi 1998 Completed [facility] Dosage 00:00:00 [facility] Hep B, Adol or Pedi 1998 Completed [facility] of Dosage 00:00:00 [facility] Hep B, Adol or Pedi 1998 Completed [facility] Dosage 00:00:00 [facility] Hep B, Adol or Pedi 1998 Completed [facility] of Dosage 00:00:00 [facility] Hep B, Adol or Pedi 1998 Completed [facility] Dosage 00:00:00 [facility] Hep B, Adol or Pedi 1998 Completed [facility] Dosage 00:00:00 [facility] Hep B, Adol or Pedi 1998 Completed [facility] of Dosage 00:00:00 [facility] Hep B, Adol or Pedi 1998 Completed [facility] of Dosage 00:00:00 [facility] Hep B, Adol or Pedi 1998 Completed [facility] Dosage 00:00:00 [facility] Hep B, Adol or Pedi 1998 Completed [facility] Dosage 00:00:00 [facility] Hep B, Adol or Pedi 1998 Completed [facility] of Dosage 00:00:00 [facility] Hep B, Adol or Pedi 1998 Completed [facility] Dosage 00:00:00 [facility] Hep B, Adol or Pedi 1998 Completed [facility] of Dosage 00:00:00 [facility] Hep B, Adol or Pedi 1998 Completed [facility] Dosage 00:00:00 [facility] Hep B, Adol or Pedi 1998 Completed [facility] Dosage 00:00:00 [facility] Hep B, Adol or Pedi 1998 Completed [facility] Dosage 00:00:00 [facility] Hep B, Adol or Pedi 1998 Completed [facility] Dosage 00:00:00 [facility] Hep B, Adol or Pedi 1998 Completed [facility] Dosage 00:00:00 [facility] Hep B, Adol or Pedi 1998 Completed [facility] Dosage 00:00:00 [facility] Hep B, Adol or Pedi 1998 Completed [facility] Dosage 00:00:00 [facility] Hep B, Adol or Pedi 1998 Completed [facility] Dosage 00:00:00 [facility] Hep B, Adol or Pedi 1998 Completed [facility] of Dosage 00:00:00 [facility] Hep B, Adol or Pedi 1998 Completed [facility] Dosage 00:00:00 [facility] Hep B, Adol or Pedi 1998 Completed [facility] Dosage 00:00:00 [facility] Hep B, Adol or Pedi 1998 Completed [facility] Dosage 00:00:00 [facility] Hep B, Adol or Pedi 1998 Completed [facility] Dosage 00:00:00 [facility] Hep B, Adol or Pedi 1998 Completed [facility] Dosage 00:00:00 [facility] Hep B, Adol or Pedi 1998 Completed [facility] Dosage 00:00:00 [facility] Hep B, Adol or Pedi 1998 Completed [facility] Dosage 00:00:00 [facility] Hep B, Adol or Pedi 1998 Completed [facility] Dosage 00:00:00 [facility] Hep B, Adol or Pedi 1998 Completed [facility] Dosage 00:00:00 [facility] Hep B, Adol or Pedi 1998 Completed [facility] Dosage 00:00:00 [facility] Hep B, Adol or Pedi 1998 Completed [facility] Dosage 00:00:00 [facility] Hep B, Adol or Pedi 1998 Completed [facility] Dosage 00:00:00 [facility] Hep B, Adol or Pedi 1998 Completed [facility] Dosage 00:00:00 [facility] Hep B, Adol or Pedi 1998 Completed [facility] Dosage 00:00:00 [facility] Hep B, Adol or Pedi 1998 Completed [facility] Dosage 00:00:00 [facility] Hep B, Adol or Pedi 1998 Completed [facility] Dosage 00:00:00 [facility] Hep B, Adol or Pedi 1998 Completed [facility] Dosage 00:00:00 [facility] Hep B, Adol or Pedi 1998 Completed [facility] Dosage 00:00:00 [facility] Hep B, Adol or Pedi 1998 Completed [facility] Dosage 00:00:00 [facility] Hep B, Adol or Pedi 1998 Completed [facility] Dosage 00:00:00 [facility] Hep B, Adol or Pedi 1998 Completed [facility] Dosage 00:00:00 [facility] Hep B, Adol or Pedi 1998 Completed [facility] Dosage 00:00:00 [facility] Hep B, Adol or Pedi 1998 Completed [facility] Dosage 00:00:00 [facility] Hep B, Adol or Pedi 1998 Completed [facility] of Dosage 00:00:00 [facility] Hep B, Adol or Pedi 1998 Completed [facility] Dosage 00:00:00 [facility] Hep B, Adol or Pedi 1998 Completed [facility] Dosage 00:00:00 [facility] Hep B, Adol or Pedi 1998 Completed [facility] of Dosage 00:00:00 [facility] Hep B, Adol or Pedi 1998 Completed [facility] of Dosage 00:00:00 [facility] Hep B, Adol or Pedi 1998 Completed [facility] of Dosage 00:00:00 [facility] Hep B, Adol or Pedi 1998 Completed [facility] of Dosage 00:00:00 [facility] Hep B, Adol or Pedi 1998 Completed [facility] Dosage 00:00:00 [facility] Hep B, Adol or Pedi 1998 Completed [facility] Dosage 00:00:00 [facility] Hep B, Adol or Pedi 1998 Completed [facility] of Dosage 00:00:00 [facility] Hep B, Adol or Pedi 1998 Completed [facility] Dosage 00:00:00 [facility] Hep B, Adol or Pedi 1998 Completed [facility] Dosage 00:00:00 [facility] Hep B, Adol or Pedi 1998 Completed [facility] Dosage 00:00:00 [facility] Hep B, Adol or Pedi 1998 Completed [facility] Dosage 00:00:00 [facility] Hep B, Adol or Pedi 1998 Completed [facility] Dosage 00:00:00 [facility] Hep B, Adol or Pedi 1998 Completed [facility] Dosage 00:00:00 [facility] Hep B, Adol or Pedi 1998 Completed [facility] Dosage 00:00:00 [facility] Hep B, Adol or Pedi 1998 Completed [facility] Dosage 00:00:00 [facility] Hep B, Adol or Pedi 1998 Completed [facility] Dosage 00:00:00 [facility] Hep B, Adol or Pedi 1998 Completed [facility] Dosage 00:00:00 [facility] Hep B, Adol or Pedi 1998 Completed [facility] Dosage 00:00:00 [facility] Hep B, Adol or Pedi 1998 Completed [facility] Dosage 00:00:00 [facility] Hep B, Adol or Pedi 1998 Completed [facility] Dosage 00:00:00 [facility] Hep B, Adol or Pedi 1998 Completed [facility] Dosage 00:00:00 [facility] Hep B, Adol or Pedi 1998 Completed [facility] Dosage 00:00:00 [facility] Hep B, Adol or Pedi 1998 Completed [facility] Dosage 00:00:00 [facility] Hep B, Adol or Pedi 1998 Completed [facility] Dosage 00:00:00 [facility] Hep B, Adol or Pedi 1998 Completed [facility] Dosage 00:00:00 [facility] Hep B, Adol or Pedi 1998 Completed [facility] Dosage 00:00:00 [facility] Hep B, Adol or Pedi 1998 Completed [facility] Dosage 00:00:00 [facility] Hep B, Adol or Pedi 1998 Completed [facility] Dosage 00:00:00 [facility] Hep B, Adol or Pedi 1998 Completed [facility] Dosage 00:00:00 [facility] Hep B, Adol or Pedi 1998 Completed [facility] of Dosage 00:00:00 [facility] Hep B, Adol or Pedi 1998 Completed [facility] of Dosage 00:00:00 [facility] Hep B, Adol or Pedi 1998 Completed [facility] Dosage 00:00:00 [facility] Hep B, Adol or Pedi 1998 Completed [facility] Dosage 00:00:00 [facility] Hep B, Adol or Pedi 1998 Completed [facility] Dosage 00:00:00 [facility] Hep B, Adol or Pedi 1998 Completed [facility] Dosage 00:00:00 [facility] Hep B, Adol or Pedi 1998 Completed [facility] Dosage 00:00:00 [facility] Hep B, Adol or Pedi 1998 Completed [facility] Dosage 00:00:00 [facility] Hep B, Adol or Pedi 1998 Completed [facility] Dosage 00:00:00 [facility] Hep B, Adol or Pedi 1998 Completed [facility] Dosage 00:00:00 [facility] Hep B, Adol or Pedi 1998 Completed [facility] Dosage 00:00:00 [facility] Hep B, Adol or Pedi 1998 Completed [facility] Dosage 00:00:00 [facility] Hep B, Adol or Pedi 1998 Completed [facility] Dosage 00:00:00 [facility] Hep B, Adol or Pedi 1998 Completed [facility] Dosage 00:00:00 [facility] Hep B, Adol or Pedi 1998 Completed [facility] of Dosage 00:00:00 [facility] Hep B, Adol or Pedi 1998 Completed [facility] of Dosage 00:00:00 [facility] Hep B, Adol or Pedi 1998 Completed [facility] Dosage 00:00:00 [facility] Hep B, Adol or Pedi 1998 Completed [facility] Dosage 00:00:00 [facility] Hep B, Adol or Pedi 1998 Completed [facility] Dosage 00:00:00 [facility] Hep B, Adol or Pedi 1998 Completed [facility] Dosage 00:00:00 [facility] Hep B, Adol or Pedi 1998 Completed [facility] Dosage 00:00:00 [facility] Hep B, Adol or Pedi 1998 Completed [facility] Dosage 00:00:00 [facility] Hep B, Adol or Pedi 1998 Completed [facility] Dosage 00:00:00 [facility] Hep B, Adol or Pedi 1998 Completed [facility] of Dosage 00:00:00 [facility] Hep B, Adol or Pedi 1998 Completed [facility] Dosage 00:00:00 [facility] Hep B, Adol or Pedi 1998 Completed [facility] Dosage 00:00:00 [facility] Hep B, Adol or Pedi 1998 Completed [facility] Dosage 00:00:00 [facility] Hep B, Adol or Pedi 1998 Completed [facility] of Dosage 00:00:00 [facility] Hep B, Adol or Pedi 1998 Completed [facility] Dosage 00:00:00 [facility] Hep B, Adol or Pedi 1998 Completed [facility] of Dosage 00:00:00 [facility] Hep B, Adol or Pedi 1998 Completed [facility] of Dosage 00:00:00 [facility] Hep B, Adol or Pedi 1998 Completed [facility] Dosage 00:00:00 [facility] Hep B, Adol or Pedi 1998 Completed [facility] of Dosage 00:00:00 [facility] Hep B, Adol or Pedi 1998 Completed [facility] of Dosage 00:00:00 [facility] Hep B, Adol or Pedi 1998 Completed [facility] of Dosage 00:00:00 [facility] Hep B, Adol or Pedi 1998 Completed [facility] of Dosage 00:00:00 [facility] Hep B, Adol or Pedi 1998 Completed [facility] Dosage 00:00:00 [facility] Hep B, Adol or Pedi 1998 Completed [facility] Dosage 00:00:00 [facility] Hep B, Adol or Pedi 1998 Completed [facility] of Dosage 00:00:00 [facility] Hep B, Adol or Pedi 1998 Completed [facility] Dosage 00:00:00 [facility] Hep B, Adol or Pedi 1998 Completed [facility] Dosage 00:00:00 [facility] Hep B, Adol or Pedi 1998 Completed [facility] Dosage 00:00:00 [facility] Hep B, Adol or Pedi 1998 Completed [facility] Dosage 00:00:00 [facility] Hep B, Adol or Pedi 1998 Completed [facility] Dosage 00:00:00 [facility] Hep B, Adol or Pedi 1998 Completed [facility] Dosage 00:00:00 [facility] Hep B, Adol or Pedi 1998 Completed [facility] Dosage 00:00:00 [facility] Hep B, Adol or Pedi 1998 Completed [facility] Dosage 00:00:00 [facility] Hep B, Adol or Pedi 1998 Completed [facility] Dosage 00:00:00 [facility] Hep B, Adol or Pedi 1998 Completed [facility] Dosage 00:00:00 [facility] Hep B, Adol or Pedi 1998 Completed [facility] Dosage 00:00:00 [facility] Hep B, Adol or Pedi 1998 Completed [facility] Dosage 00:00:00 [facility] Hep B, Adol or Pedi 1998 Completed [facility] of Dosage 00:00:00 [facility] Hep B, Adol or Pedi 1998 Completed [facility] of Dosage 00:00:00 [facility] Hep B, Adol or Pedi 1998 Completed [facility] Dosage 00:00:00 [facility] Hep B, Adol or Pedi 1998 Completed [facility] of Dosage 00:00:00 [facility] Hep B, Adol or Pedi 1998 Completed [facility] of Dosage 00:00:00 [facility] Hep B, Adol or Pedi 1998 Completed [facility] of Dosage 00:00:00 [facility] Hep B, Adol or Pedi 1998 Completed [facility] of Dosage 00:00:00 [facility] Hep B, Adol or Pedi 1998 Completed [facility] of Dosage 00:00:00 [facility] Hep B, Adol or Pedi 1998 Completed [facility] of Dosage 00:00:00 [facility] Hep B, Adol or Pedi 1998 Completed [facility] of Dosage 00:00:00 [facility] Hep B, Adol or Pedi 1998 Completed [facility] of Dosage 00:00:00 [facility] Hep B, Adol or Pedi 1998 Completed [facility] of Dosage 00:00:00 [facility] Hep B, Adol or Pedi 1998 Completed [facility] Dosage 00:00:00 [facility] Hep B, Adol or Pedi 1998 Completed [facility] Dosage 00:00:00 [facility] Hep B, Adol or Pedi 1998 Completed [facility] Dosage 00:00:00 [facility] Hep B, Adol or Pedi 1998 Completed [facility] Dosage 00:00:00 [facility] Hep B, Adol or Pedi 1998 Completed [facility] Dosage 00:00:00 [facility] Hep B, Adol or Pedi 1998 Completed [facility] Dosage 00:00:00 [facility] Hep B, Adol or Pedi 1998 Completed [facility] Dosage 00:00:00 [facility] Hep B, Adol or Pedi 1998 Completed [facility] Dosage 00:00:00 [facility] Hep B, Adol or Pedi 1998 Completed [facility] Dosage 00:00:00 [facility] Hep B, Adol or Pedi 1998 Completed [facility] Dosage 00:00:00 [facility] Hep B, Adol or Pedi 1998 Completed [facility] of Dosage 00:00:00 [facility] Hep B, Adol or Pedi 1998 Completed [facility] Dosage 00:00:00 [facility] Hep B, Adol or Pedi 1998 Completed [facility] Dosage 00:00:00 [facility] Hep B, Adol or Pedi 1998 Completed [facility] Dosage 00:00:00 [facility] Hep B, Adol or Pedi 1998 Completed [facility] Dosage 00:00:00 [facility] Hep B, Adol or Pedi 1998 Completed [facility] of Dosage 00:00:00 [facility] Hep B, Adol or Pedi 1998 Completed [facility] Dosage 00:00:00 [facility] Hep B, Adol or Pedi 1998 Completed [facility] Dosage 00:00:00 [facility] Hep B, Adol or Pedi 1998 Completed [facility] Dosage 00:00:00 [facility] Hep B, Adol or Pedi 1998 Completed [facility] Dosage 00:00:00 [facility] Hep B, Adol or Pedi 1998 Completed [facility] Dosage 00:00:00 [facility] Hep B, Adol or Pedi 1998 Completed [facility] Dosage 00:00:00 [facility] DTAP Unknown Completed [facility] HIB 4 Dose Schedule Unknown Completed [facility] of [facility] MMR Unknown Completed [facility] Polio (IPV/OPV) Unknown Completed [facility] Varicella Unknown Completed [facility] (varivax)([facility] [place] [facility] DTAP Unknown Completed [facility] DTAP Unknown Completed [facility] DTAP Unknown Completed [facility] DTAP Unknown Completed [facility] HIB 4 Dose Schedule Unknown Completed [facility] HIB 4 Dose Schedule Unknown Completed [facility] Hep B, Adol or Pedi Unknown Completed [facility] of Dosage [facility] Hep B, Adol or Pedi Unknown Completed [facility] of Dosage [facility] Hep B, Adol or Pedi Unknown Completed [facility] of Dosage [facility] Hep B, Adol or Pedi Unknown Completed [facility] of Dosage [facility] Meningococcal Unknown Completed [facility] (groups A, C, Y and Branc h W-135) conjugate vaccine (MCV4P) MMR Unknown Completed [facility] MMR Unknown Completed [facility] Polio (IPV/OPV) Unknown Completed [facility] Polio (IPV/OPV) Unknown Completed [facility] Polio (IPV/OPV) Unknown Completed [facility] TDAP Unknown Completed [facility] Varicella Unknown Completed [facility] (varivax)([facility] [place] [facility] p[facility]) [place] Varicella Unknown Completed [facility] (varivax)([facility] [place] [facility] pox) [place] Influenza Virus Unknown Completed [facility] .5 mL [facility] 6+ [place] Branch (FLUZONE/FLULAVAL/FL UARIX) TDAP (ADACEL) Unknown Completed [facility] Influenza Virus Unknown Completed [facility] .5 mL [facility] 6+ [place] [facility] (FLUZONE/FLULAVAL/FL UARIX) HPV9 Unknown Completed [facility] HPV9 Unknown Completed [facility] Influenza Virus Unknown Completed [facility] Vaccine Quad IM, [facility] dical Preserv and ABX Free Bran ch 6 MO-64 YRS (FLUCELVAX) HPV9 Unknown Completed [facility] SARS-COV-2 COVID-19 Unknown Completed Unive rsity of MODERNA 12+ YRS [facility] VACCINE Branch SARS-COV-2 COVID-19 Unknown Completed Unive rsity of MODERNA 12+ YRS [facility] Influenza Virus Unknown Completed [facility] Vaccine Quad IM, [facility] dical Preserv and ABX Free Bran ch 6 MO-64 YRS (FLUCELVAX) TDAP Unknown Completed [facility] DTAP Unknown Completed [facility] HIB 4 Dose Schedule Unknown [facility] [place] MMR Unknown Completed [facility] Polio (IPV/OPV) Unknown Completed [facility] Varicella Unknown Completed [facility] (varivax)(ch[facility] [place] [facility] pox) Branch DTAP Unknown Completed [facility] DTAP Unknown Completed [facility] DTAP Unknown Completed [facility] DTAP Unknown Completed [facility] HIB 4 Dose Schedule Unknown Completed [facility] [place] HIB 4 Dose Schedule Unknown Completed [facility]ity [facility] Hep B, Adol or Pedi Unknown Completed [facility] of Dosage [facility] Hep B, Adol or Pedi Unknown Completed [facility] of Dosage [facility] Hep B, Adol or Pedi Unknown Completed [facility] of Dosage [facility] Hep B, Adol or Pedi Unknown Completed [facility] Dosage [facility] Meningococcal Unknown Completed [facility] minal (groups A, C, Y and Branc h W-135) conjugate vaccine (MCV4P) MMR Unknown Completed [facility] MMR Unknown Completed [facility] Polio (IPV/OPV) Unknown Completed [facility] Polio (IPV/OPV) Unknown Completed [facility] Polio (IPV/OPV) Unknown Completed [facility] TDAP Unknown Completed [facility] Varicella Unknown Completed [facility] (var[facility]ax[facility] [place] [facility] pox) Branch Varicella Unknown Completed [facility] (varivax[facility] [place] [facility] pox) Branch Influenza Virus Unknown Completed Universit y of Vaccine Quad .5 mL [facility] 6+ MO Branch (FLUZONE/FLULAVAL/FL UARIX) TDAP (ADACEL) Unknown Completed University [facility] Influenza Virus Unknown Completed Universit y of Vaccine Quad .5 mL [facility] IM 6+ MO Branch (FLUZONE/FLULAVAL/FL UARIX) HPV9 Unknown Completed [facility] HPV9 Unknown Completed [facility] Influenza Virus Unknown Completed Universit y of Vaccine Quad IM, [facility] dical Preserv and ABX Free Bran ch 6 MO-64 YRS (FLUCELVAX) HPV9 Unknown Completed [facility] SARS-COV-2 COVID-19 Unknown Completed Unive rsity of MODERNA 12+ YRS [facility] ical VACCINE Branch SARS-COV-2 COVID-19 Unknown Completed Unive rsity of MODERNA 12+ YRS [facility] ica VACCINE Branch Influenza Virus Unknown Completed Univers[facility] y of Vaccine Quad IM, [place] [facility] dical Preserv and ABX Free Bran ch 6 MO-64 YRS (FLUCELVAX) TDAP Unknown Completed [facility] DTAP Unknown Completed [facility] HIB 4 Dose Schedule Unknown Completed Unive rsity of [facility] MMR Unknown Completed [facility] Polio (IPV/OPV) Unknown Completed Universit y [facility] Varicella Unknown Completed [facility] (varivax[facility] [place] [facility] pox) Branch DTAP Unknown Completed [facility] DTAP Unknown Completed [facility] DTAP Unknown Completed [facility] DTAP Unknown Completed [facility] HIB 4 Dose Schedule Unknown Completed Unive rsity [facility] HIB 4 Dose Schedule Unknown Com[facility] Hep B, Adol or Pedi Unknown Completed Unive rsity of Dosage [facility] Hep B, Adol or Pedi Unknown Completed Unive rsity of [facility] Hep B, Adol or Pedi Unknown Completed Unive rsity of Dosage [facility] Hep B, Adol or Pedi Unknown Completed Unive rsity of [facility] Meningococcal Unknown Completed [facility] (groups A, C, Y and Branc h W-135) conjugate vaccine (MCV4P) MMR Unknown Completed [facility] MMR Unknown Completed [facility] Polio (IPV/OPV) [facility] Polio (IPV/OPV) Unknown Completed [facility] Polio (IPV/OPV) Unknown Completed [facility] TDAP Unknown Completed [facility] Varicella Unknown Completed [facility] (varivax[facility] [place] [facility] pox) Branch Varicella Unknown Completed [facility] (varivax[facility] [place] [facility] pox) Branch Influenza Virus Unknown Completed Universit y of Vaccine Quad .5 mL [facility] IM 6+ MO Branch (FLUZONE/FLULAVAL/FL UARIX) TDAP (ADACEL) Unknown Completed [facility] Influenza Virus Unknown Completed Universit y of Vaccine Quad .5 mL [facility] 6+ MO Branch (FLUZONE/FLULAVAL/FL UARIX) HPV9 Unknown Completed [facility] HPV9 Unknown Completed [facility] Influenza Virus Unknown Completed [facility] y of Vaccine Quad IM, [place] [facility] dical Preserv and ABX Free Bran ch 6 MO-64 YRS (FLUCELVAX) HPV9 Unknown Completed [facility] SARS-COV-2 COVID-19 Unknown Completed Unive rsity of MODERNA 12+ YRS [facility] VACCINE Branch SARS-COV-2 COVID-19 Unknown Completed Unive rsity of MODERNA 12+ YRS [facility] VACCINE Branch Influenza Virus Unknown Completed Universit y of Vaccine Quad IM, [facility] dical Preserv and ABX Free Bran ch 6 MO-64 YRS (FLUCELVAX) TDAP Unknown Completed [facility] DTAP Unknown Completed [facility] HIB 4 Dose Schedule Unknown Completed Unive [facility] MMR Unknown Completed [facility] Polio (IPV/OPV) Unknown Completed [facility] Varicella Unknown Completed [facility] (varivax[facility] [place] [facility] pox) Branch DTAP Unknown Completed [facility] DTAP Unknown Completed [facility] DTAP Unknown Completed [facility] DTAP Unknown Completed [facility] HIB 4 Dose Schedule Unknown [facility] HIB 4 Dose Schedule Unknown Com[facility] Hep B, Adol or Pedi Unknown Completed Unive rsity of Dosage [facility] Hep B, Adol or Pedi Unknown Completed Unive rsity of Dosage [facility] Hep B, Adol or Pedi Unknown Completed Unive rsity of Dosage [facility] Hep B, Adol or Pedi Unknown Completed Unive rsity of Dosage [facility] Meningococcal Unknown Completed [facility] minal (groups A, C, Y and Branc h W-135) conjugate vaccine (MCV4P) MMR Unknown Completed [facility] MMR Unknown Completed [facility] Polio (IPV/OPV) Unknown Completed [facility] Polio (IPV/OPV) Unknown Completed [facility] Polio (IPV/OPV) Unknown Completed [facility] TDAP Unknown Completed [facility] Varicella Unknown Completed [facility] (varivax[facility] [place] [facility] pox) Branch Varicella Unknown Completed [facility] (varivax[facility] [place] [facility] pox) Branch Influenza Virus Unknown Completed [facility] y of Vaccine Quad .5 mL [place] [facility] 6+ MO Branch (FLUZONE/FLULAVAL/FL UARIX) TDAP (ADACEL) Unknown Completed [facility] Influenza Virus Unknown Completed Universit y of Vaccine Quad .5 mL [place] [facility] 6+ MO Branch (FLUZONE/FLULAVAL/FL UARIX) HPV9 Unknown Completed [facility] HPV9 Unknown Completed [facility] Influenza Virus Unknown Completed Universit y of Vaccine Quad IM, [place] [facility] dical Preserv and ABX Free Bran ch 6 MO-64 YRS (FLUCELVAX) HPV9 Unknown Completed [facility] SARS-COV-2 COVID-19 Unknown Completed Unive rsity of MODERNA 12+ YRS [facility] VACCINE Branch SARS-COV-2 COVID-19 Unknown Completed Unive rsity of [place] 12+ YRS [facility] VACCINE Branch Influenza Virus Unknown Completed Universit y of Vaccine Quad IM, [facility] dical Preserv and ABX Free Bran ch 6 MO-64 YRS (FLUCELVAX) TDAP Unknown Completed [facility] Influenza Virus Unknown Completed [facility]it y of Vaccine Quad IM, [place] [facility] dical Preserv and ABX Free Bran ch 6 MO-64 YRS (FLUCELVAX) DTAP Unknown Completed [facility] HIB 4 Dose Schedule Unknown Completed Unive [facility] MMR Unknown Completed [facility] Polio (IPV/OPV) Unknown [facility] Varicella Unknown Completed [facility] (varivax)(chicken [place] [facility] pox) Branch DTAP Unknown Completed [facility] DTAP Unknown Completed [facility] DTAP Unknown Completed [facility] DTAP Unknown Completed [facility] HIB 4 Dose Schedule Unknown [facility] HIB 4 Dose Schedule Unknown Com[facility] Hep B, Adol or Pedi Unknown Completed Unive rsity of Dosage [facility] Hep B, Adol or Pedi Unknown Completed Unive rsity of Dosage [facility] Hep B, Adol or Pedi Unknown Completed Unive rsity of Dosage [facility] Hep B, Adol or Pedi Unknown Completed Unive rsity of Dosage [facility] Meningococcal Unknown Completed [facility] (groups A, C, Y and Branc h W-135) conjugate vaccine (MCV4P) MMR Unknown Completed [facility] MMR Unknown Completed [facility] Polio (IPV/OPV) Unknown Completed Universit [facility] Polio (IPV/OPV) Unknown Completed [facility] Polio (IPV/OPV) Unknown Completed [facility] TDAP Unknown Completed [facility] Varicella Unknown Completed University (varivax)(chicken [place] [facility] pox) Branch Varicella Unknown Completed [facility] (varivax)(chicken [place] M ed[facility] pox) [place] Influenza Virus Unknown Completed Universit y of Vaccine Quad .5 mL [facility] IM 6+ MO Branch (FLUZONE/FLULAVAL/FL UARIX) TDAP (ADACEL) Unknown Completed [facility] Influenza Virus Unknown Completed Universit y of Vaccine Quad .5 mL [facility] IM 6+ MO Branch (FLUZONE/FLULAVAL/FL UARIX) HPV9 Unknown Completed [facility] HPV9 Unknown Completed [facility] Influenza Virus Unknown Completed Universit y of Vaccine Quad , [facility] dical Preserv and ABX Free Bran ch 6 MO-64 YRS (FLUCELVAX) HPV9 Unknown Completed [facility] SARS-COV-2 COVID-19 Unknown Completed Unive rsity of MODERNA 12+ YRS [facility] VACCINE Branch SARS-COV-2 COVID-19 Unknown Completed Unive rsity of MODERNA 12+ YRS [facility] Branch Influenza Virus Unknown Completed Universit y of Vaccine Quad , [place] [facility] dical Preserv and ABX Free Bran ch 6 MO-64 YRS (FLUCELVAX) TDAP Unknown Completed [facility] Influenza Virus Unknown Completed Universit y of Vaccine Quad IM, [place] [facility] dical Preserv and ABX Free Bran ch 6 MO-64 YRS (FLUCELVAX) DTAP Unknown Completed [facility] HIB 4 Dose Schedule Unknown [facility] MMR Unknown Completed [facility] Polio (IPV/OPV) Unknown Completed Universit [facility] Varicella Unknown Completed [facility] (varivax)(chicken [place] [facility] pox) Branch DTAP Unknown Completed [facility] DTAP Unknown Completed [facility] DTAP Unknown Completed [facility] DTAP Unknown Completed [facility] HIB 4 Dose Schedule Unknown Completed [facility] HIB 4 Dose Schedule Unknown [facility] Hep B, Adol or Pedi Unknown Completed Unive rsity of Dosage [facility] Hep B, Adol or Pedi Unknown Completed Unive rsity of Dosage [facility] Hep B, Adol or Pedi Unknown Completed Unive rsity of Dosage [facility] Hep B, Adol or Pedi Unknown Completed Unive rsity of Dosage [facility] Meningococcal Unknown Completed [facility] (groups A, C, Y and Branc h W-135) conjugate vaccine (MCV4P) MMR Unknown Completed [facility] MMR Unknown Completed [facility] Polio (IPV/OPV) Unknown Completed [facility] Polio (IPV/OPV) Unknown Completed [facility] Polio (IPV/OPV) Unknown Completed [facility] TDAP Unknown Completed [facility] Varicella Unknown Completed University (varivax)(chicken [place] [facility] pox) Branch Varicella Unknown Completed [facility] (varivax)(chicken [place] M edical pox) [place] Influenza Virus Unknown Completed Universit y of Vaccine Quad .5 mL [facility] IM 6+ MO Branch (FLUZONE/FLULAVAL/FL UARIX) TDAP (ADACEL) Unknown Completed [facility] Influenza Virus Unknown Completed Universit y of Vaccine Quad .5 mL [facility] IM 6+ MO Branch (FLUZONE/FLULAVAL/FL UARIX) HPV9 Unknown Completed [facility] HPV9 Unknown Completed [facility] Influenza Virus Unknown Completed Universit y of Vaccine Quad IM, [place] [facility] dical Preserv and ABX Free Bran ch 6 MO-64 YRS (FLUCELVAX) HPV9 Unknown Completed [facility] SARS-COV-2 COVID-19 Unknown Completed Unive rsity of MODERNA 12+ YRS [facility] VACCINE Branch SARS-COV-2 COVID-19 Unknown Completed Unive rsity of MODERNA 12+ YRS [facility] Influenza Virus Unknown Completed Universit y of Vaccine Quad IM, [place] [facility] dical Preserv and ABX Free Bran ch 6 MO-64 YRS (FLUCELVAX) DTAP Unknown Completed [facility] HIB 4 Dose Schedule Unknown Completed [facility] MMR Unknown Completed [facility] Polio (IPV/OPV) Unknown Completed [facility] Varicella Unknown Completed [facility] (varivax)(chicken [place] M ed[facility] pox) Branch DTAP Unknown Completed [facility] DTAP Unknown Completed [facility] DTAP Unknown Completed [facility] DTAP Unknown Completed [facility] HIB 4 Dose Schedule Unknown Completed [facility] HIB 4 Dose Schedule Unknown Completed [facility] Hep B, Adol or Pedi Unknown Completed Unive rsity of Dosage [facility] Hep B, Adol or Pedi Unknown Completed Unive rsity of Dosage [facility] Hep B, Adol or Pedi Unknown Completed Unive rsity of Dosage [facility] Hep B, Adol or Pedi Unknown Completed Unive rsity [facility] Meningococcal Unknown Completed [facility] (groups A, C, Y and Branc h W-135) conjugate vaccine (MCV4P) MMR Unknown Completed [facility] MMR Unknown Completed [facility] Polio (IPV/OPV) Unknown Completed [facility] Polio (IPV/OPV) Unknown Completed [facility] Polio (IPV/OPV) Unknown Completed [facility] TDAP Unknown Completed [facility] Varicella Unknown Completed [facility] (varivax)(chicken [place] [facility] pox) Branch Varicella Unknown Completed [facility] (varivax)(chicken [place] [facility] pox) Branch Influenza Virus Unknown Completed Universit y of Vaccine Quad .5 mL [place] [facility] IM 6+ MO Branch (FLUZONE/FLULAVAL/FL UARIX) TDAP (ADACEL) Unknown Completed [facility] Influenza Virus Unknown Completed Universit y of Vaccine Quad .5 mL [facility] IM 6+ MO Branch (FLUZONE/FLULAVAL/FL UARIX) HPV9 Unknown Completed [facility] HPV9 Unknown Completed [facility] Influenza Virus Unknown Completed Universit y of Vaccine Quad IM, [facility] dical Preserv and ABX Free Bran ch 6 MO-64 YRS (FLUCELVAX) HPV9 Unknown Completed [facility] SARS-COV-2 COVID-19 Unknown Completed Unive rsity of MODERNA 12+ YRS [facility] VACCINE Branch SARS-COV-2 COVID-19 Unknown Completed Unive rsity of MODERNA 12+ YRS [facility] VACCINE Branch Influenza Virus Unknown Completed Universit y of Vaccine Quad , [facility] dical Preserv and ABX Free Bran ch 6 MO-64 YRS (FLUCELVAX) DTAP Unknown Completed [facility] HIB 4 Dose Schedule Unknown Completed Unive rsity of [facility] MMR Unknown Completed [facility] Polio (IPV/OPV) Unknown Completed Universit y [facility] Varicella Unknown Completed [facility] (varivax)(chicken [place] [facility] pox) Branch DTAP Unknown Completed [facility] DTAP Unknown Completed [facility] DTAP Unknown Completed [facility] DTAP Unknown Completed [facility] HIB 4 Dose Schedule Unknown Completed Unive rsity [facility] HIB 4 Dose Schedule Unknown Completed Unive rsity of [facility] Hep B, Adol or Pedi Unknown Completed Unive rsity of Dosage [facility] Hep B, Adol or Pedi Unknown Completed Unive rsity of Dosage [facility] Hep B, Adol or Pedi Unknown Completed Unive rsity of Dosage [facility] Hep B, Adol or Pedi Unknown Completed Unive rsity of Dosage [facility] Meningococcal Unknown Completed [facility] (groups A, C, Y and Branc h W-135) conjugate vaccine (MCV4P) MMR Unknown Completed [facility] MMR Unknown Completed [facility] Polio (IPV/OPV) Unknown Completed [facility] Polio (IPV/OPV) Unknown Completed [facility] Polio (IPV/OPV) Unknown Completed [facility] TDAP Unknown Completed [facility] Varicella Unknown Completed [facility] (varivax)(chicken [place] [facility] ed[facility] pox) Branch Varicella Unknown Completed [facility] (varivax)(chicken [place] [facility] ed[facility] pox) Branch Influenza Virus Unknown Completed Universit y of Vaccine Quad .5 mL [facility] 6+ MO Branch (FLUZONE/FLULAVAL/FL UARIX) TDAP (ADACEL) Unknown Completed [facility] Influenza Virus Unknown Completed [facility] y of Vaccine Quad .5 mL [place] [facility] 6+ MO Branch (FLUZONE/FLULAVAL/FL UARIX) HPV9 Unknown Completed [facility] HPV9 Unknown Completed [facility] Influenza Virus Unknown Completed Universit y of Vaccine Quad IM, [place] [facility] dical Preserv and ABX Free Bran ch 6 MO-64 YRS (FLUCELVAX) HPV9 Unknown Completed [facility] SARS-COV-2 COVID-19 Unknown Completed Unive rsity of MODERNA 12+ YRS [facility] VACCINE Branch SARS-COV-2 COVID-19 Unknown Completed Unive rsity of MODERNA 12+ YRS [facility] VACCINE Branch Influenza Virus Unknown Completed Universit y of Vaccine Quad IM, [facility] dical Preserv and ABX Free Bran ch 6 MO-64 YRS (FLUCELVAX) DTAP Unknown Completed [facility] HIB 4 Dose Schedule Unknown Completed Unive [facility] MMR Unknown Completed [facility] Polio (IPV/OPV) Unknown Completed [facility] Varicella Unknown Completed [facility] (varivax)(chicken [place] M edical pox) Branch DTAP Unknown Completed [facility] DTAP Unknown Completed [facility] DTAP Unknown Completed [facility] DTAP Unknown Completed [facility] HIB 4 Dose Schedule Unknown Completed [facility] HIB 4 Dose Schedule Unknown Completed [facility] Hep B, Adol or Pedi Unknown Completed Unive rsity of Dosage [facility] Hep B, Adol or Pedi Unknown Completed Unive rsity of Dosage [facility] Hep B, Adol or Pedi Unknown Completed Unive rsity of Dosage [facility] Hep B, Adol or Pedi Unknown Completed Unive rsity of Dosage [facility] Meningococcal Unknown Completed [facility] (groups A, C, Y and Branc h W-135) conjugate vaccine (MCV4P) MMR Unknown Completed [facility] MMR Unknown Completed [facility] Polio (IPV/OPV) Unknown Completed [facility] Polio (IPV/OPV) Unknown Completed [facility] Polio (IPV/OPV) Unknown Completed [facility] TDAP Unknown Completed [facility] Varicella Unknown Completed [facility] (varivax[place] [place] [facility] pox) Branch Varicella Unknown Completed [facility] (varivax)(chicken [place] M edical pox) Branch Influenza Virus Unknown Completed Universit y of Vaccine Quad .5 mL [facility] IM 6+ MO Branch (FLUZONE/FLULAVAL/FL UARIX) TDAP (ADACEL) Unknown Completed [facility] Influenza Virus Unknown Completed Universit y of Vaccine Quad .5 mL [facility] IM 6+ MO Branch (FLUZONE/FLULAVAL/FL UARIX) HPV9 Unknown Completed [facility] HPV9 Unknown Completed [facility] DTAP Unknown Completed [facility] HIB 4 Dose Schedule Unknown Completed [facility] MMR Unknown Completed [facility] Polio (IPV/OPV) Unknown Completed [facility] Varicella Unknown Completed [facility] (varivax)(chicken [place] M edical pox) Branch DTAP Unknown Completed [facility] DTAP Unknown Completed [facility] DTAP Unknown Completed [facility] DTAP Unknown Completed [facility] HIB 4 Dose Schedule Unknown Completed [facility] HIB 4 Dose Schedule Unknown Completed [facility] Hep B, Adol or Pedi Unknown Completed Unive rsity of Dosage [facility] Hep B, Adol or Pedi Unknown Completed Unive rsity of Dosage [facility] Hep B, Adol or Pedi Unknown Completed Unive rsity of Dosage [facility] Hep B, Adol or Pedi Unknown Completed Unive rsity of Dosage [facility] Meningococcal Unknown Completed [facility] (groups A, C, Y and Branc h W-135) conjugate vaccine (MCV4P) MMR Unknown Completed [facility] MMR Unknown Completed [facility] Polio (IPV/OPV) [facility] Polio (IPV/OPV[facility] Polio (IPV/OPV) Unknown Completed [facility] TDAP Unknown Completed [facility] Varicella Unknown Completed [facility] (varivax)(chicken [place] [facility] pox) Branch Varicella Unknown Completed [facility] (varivax)(chicken [place] [facility] pox) Branch Influenza Virus Unknown Completed Universit y of Vaccine Quad .5 mL [facility] IM 6+ [place] Branch (FLUZONE/FLULAVAL/FL UARIX) TDAP (ADACEL) Unknown Completed [facility] Influenza Virus Unknown Completed Universit y of Vaccine Quad .5 mL [facility] IM 6+ [place] Branch (FLUZONE/FLULAVAL/FL UARIX) HPV9 Unknown Completed [facility] HPV9 Unknown Completed [facility] DTAP Unknown Completed [facility] HIB 4 Dose Schedule Unknown [facility] M[facility] Completed [facility] Polio (IPV/OPV) Unknown Completed [facility] Varicella Unknown Completed [facility] (varivax)(chicken [place] [facility] pox) Branch DTAP Unknown Completed [facility] DTAP Unknown Completed [facility] DTAP Unknown Completed [facility] DTAP Unknown Completed [facility] HIB 4 Dose Schedule Unknown [facility] HIB 4 Dose Schedule Unknown Completed [facility] Hep B, Adol or Pedi Unknown Completed Unive rsity of Dosage [facility] Hep B, Adol or Pedi Unknown Completed Unive rsity of Dosage [facility] Hep B, Adol or Pedi Unknown Completed Unive rsity of Dosage [facility] Hep B, Adol or Pedi Unknown Completed Unive rsity [facility] Meningococcal Unknown Completed [facility] (groups A, C, Y and Branc h W-135) conjugate vaccine (MCV4P) MMR Unknown Completed [facility] MMR Unknown Completed [facility] Polio (IPV/OPV) Unknown Completed [facility] Polio (IPV/OPV) Unknown Completed [facility] Polio (IPV/OPV) Unknown Completed [facility] TDAP Unknown Completed [facility] Varicella Unknown Completed University of (varivax)([facility] [place] [facility] [place] pox) Branch Varicella Unknown Completed [facility] (varivax)([place]icken [place] [facility] [place] pox) Branch Influenza Virus Unknown Completed Universit [facility] of Vaccine Quad .5 mL [facility] IM 6+ [place] Branch (FLUZONE/FLULAVAL/FL UARIX) TDAP (ADACEL) Unknown Completed [facility] Influenza Virus Unknown Completed [facility]it [facility] of Vaccine Quad .5 mL [facility] IM 6+ [place] Branch (FLUZONE/FLULAVAL/FL UARIX) DTAP Unknown Completed [facility] HIB 4 Dose Schedule Unknown Com[facility] MMR Unknown Completed [facility] Polio (IPV/OPV) Unknown Completed [facility] Varicella Unknown Completed [facility] (varivax)(chicken [place] [facility] [place] pox) Branch DTAP Unknown Completed [facility] DTAP Unknown Completed [facility] DTAP Unknown Completed [facility] DTAP Unknown Completed [facility] HIB 4 Dose Schedule Unknown Completed [facility] HIB 4 Dose Schedule Unknown Completed [facility] Hep B, Adol or Pedi Unknown Completed Unive rsity of Dosage [facility] Hep B, Adol or Pedi Unknown Completed Unive rsity of [facility] Hep B, Adol or Pedi Unknown Completed Unive rsity of Dosage [facility] Hep B, Adol or Pedi Unknown Completed Unive rsity [facility] Meningococcal Unknown Completed [facility] (groups A, C, Y and Branc h W-135) conjugate vaccine (MCV4P) MMR Unknown Completed [facility] MMR Unknown Completed [facility] Polio (IPV/OPV) Unknown Completed [facility] Polio (IPV/OPV) Unknown Completed [facility] Polio (IPV/OPV) Unknown Completed [facility] TDAP Unknown Completed [facility] Varicella Unknown Completed [facility] (varivax[place]icken [place] [facility] pox) Branch Varicella Unknown Completed [facility] (varivax)(chicken [place] [facility] pox) Branch Influenza Virus Unknown Completed [facility] y Vaccine Quad .5 mL [facility] IM 6+ [place] Branch (FLUZONE/FLULAVAL/FL UARIX) TDAP (ADACEL) Unknown Completed [facility] DTAP Unknown Completed [facility] HIB 4 Dose Schedule Unknown Completed Unive [facility] MMR Unknown Completed [facility] Polio (IPV/OPV) Unknown Completed [facility] Varicella Unknown Completed [facility] (varivax)(chicken [place] [facility] [place] pox) Branch DTAP Unknown Completed [facility] DTAP Unknown Completed [facility] DTAP Unknown Completed [facility] DTAP Unknown Completed [facility] HIB 4 Dose Schedule Unknown Completed Unive rsity [facility] HIB 4 Dose Schedule Unknown Completed Unive rsity of [facility] Hep B, Adol or Pedi Unknown Completed Unive rsity of Dosage [facility] Hep B, Adol or Pedi Unknown Completed Unive rsity of Dosage [facility] Hep B, Adol or Pedi Unknown Completed Unive rsity of Dosage [facility] Hep B, Adol or Pedi Unknown Completed Unive rsity of Dosage [facility] Meningococcal Unknown Completed [facility] (groups A, C, Y and Branc h W-135) conjugate vaccine (MCV4P) MMR Unknown Completed [facility] MMR Unknown Completed [facility] Polio (IPV/OPV) Unknown Completed [facility] Polio (IPV/OPV) Unknown Completed [facility] Polio (IPV/OPV) Unknown Completed [facility] TDAP Unknown Completed [facility] Varicella Unknown Completed [facility] (varivax[place]chicken [place] [facility] [place] pox) Branch Varicella Unknown Completed [facility] (varivax)(chicken [place] [facility] [place] pox) Branch Influenza Virus Unknown Completed [facility] Vaccine Quad .5 mL [facility] 6+ [place] Branch (FLUZONE/FLULAVAL/FL UARIX) TDAP (ADACEL) Unknown Completed [facility] DTAP Unknown Completed [facility] HIB 4 Dose Schedule Unknown Completed Unive [facility] MMR Unknown Completed [facility] Polio (IPV/OPV) Unknown Completed [facility] Varicella Unknown Completed [facility] (varivax)(chicken [place] [facility] [place] pox) Branch DTAP Unknown Completed [facility] DTAP Unknown Completed [facility] DTAP Unknown Completed [facility] DTAP Unknown Completed [facility] HIB 4 Dose Schedule Unknown Completed [facility] HIB 4 Dose Schedule Unknown Completed [facility] Hep B, Adol or Pedi Unknown Completed Unive rsity of Dosage [facility] Hep B, Adol or Pedi Unknown Completed Unive rsity of Dosage [facility] Hep B, Adol or Pedi Unknown Completed Unive rsity of Dosage [facility] Hep B, Adol or Pedi Unknown Completed Unive rsity of Dosage [facility] Meningococcal Unknown Completed [facility] (groups A, C, Y and Branc h W-135) conjugate vaccine (MCV4P) MMR Unknown Completed [facility] MMR Unknown Completed [facility] Polio (IPV/OPV) Unknown Completed [facility] Polio (IPV/OPV) Unknown Completed [facility] Polio (IPV/OPV) Unknown Completed [facility] TDAP Unknown Completed [facility] Varicella Unknown Completed [facility] (varivax)(chicken [place] [facility] [place] pox) [place] Varicella Unknown Completed [facility] (varivax)(chicken [place] [facility] [place] pox) [place] Influenza Virus Unknown Completed [facility] of Vaccine Quad .5 mL [facility] 6+ [place] (FLUZONE/FLULAVAL/FL UARIX) TDAP (ADACEL) Unknown Completed [facility] Influenza Virus Unknown Completed [facility]it [facility] of Vaccine Quad .5 mL [facility] 6+ [place] (FLUZONE/FLULAVAL/FL UARIX) HPV9 Unknown Completed [facility] HPV9 Unknown Completed [facility] Influenza Virus Unknown Completed [facility]it y of Vaccine Quad , [facility] dical Preserv and ABX Free Bran ch 6 [place]-64 YRS (FLUCELVAX) HPV9 Unknown Completed [facility] SARS-COV-2 COVID-19 Unknown Completed Unive rsity of MODERNA 12+ YRS [facility] SARS-COV-2 COVID-19 Unknown Completed Unive rsity of MODERNA 12+ YRS [facility] Influenza Virus Unknown Completed [facility] y of Vaccine Quad , [place] [facility] dical Preserv and ABX Free Bran ch 6 MO-64 YRS (FLUCELVAX) TDAP Unknown Completed [facility] Influenza Virus Unknown Completed [facility] of Vaccine Quad , [place] [facility] Preserv and ABX Free Bran ch 6 MO-64 YRS (FLUCELVAX) Vital Signs Vital Name Observation Time Observation Value Comments Source Systolic blood 2023-01-01 12:10:00 113 mm[Hg] Univer sity of pressure [facility] Diastolic blood 2023-01-01 12:10:00 75 mm[Hg] Unive rsity of pressure [facility] Heart rate 2023-01-01 12:10:00 66 /min [facility] ty [facility] [place] [facility] Body temperature 2023-01-01 12:10:00 36.17 Bibi Univ ersity of [place] [facility] Respiratory rate 2023-01-01 12:10:00 18 /min Univ ersity [facility] [place] [facility] Body height 2023-01-01 12:10:00 162.6 cm [facility] [place] [facility] Body weight 2023-01-01 12:10:00 67.949 kg [facility] [place] [facility] BMI 2023-01-01 12:10:00 25.71 kg/m2 Universi ty of [facility] Branch Systolic blood 2022-12-27 13:42:00 128 mm[Hg] Univer sity of pressure [facility] Diastolic blood 2022-12-27 13:42:00 77 mm[Hg] Unive rsity of pressure [facility] Heart rate 2022-12-27 13:42:00 80 /min [facility] [place] [facility] Body temperature 2022-12-27 13:42:00 36.22 Bibi Univ ers[facility] of [place] [facility] Respiratory rate 2022-12-27 13:42:00 16 /min Univ ersity of [place] [facility] Body height 2022-12-27 13:42:00 162.6 cm [facility] [place] [facility] Body weight 2022-12-27 13:42:00 68.493 kg [facility] [place] [facility] BMI 2022-12-27 13:42:00 25.92 kg/m2 Universi ty of [facility] Branch Oxygen saturation in 2022-12-27 13:42:00 92 /min University Arterial blood by [facility] Pulse oximetry Branch Systolic blood 2022-12-02 15:04:00 117 mm[Hg] Univer sity of pressure [facility] Diastolic blood 2022-12-02 15:04:00 72 mm[Hg] Unive rsity of pressure [facility] Heart rate 2022-12-02 15:04:00 73 /min [facility] [place] [facility] Body temperature 2022-12-02 15:04:00 36.17 Bibi Univ ersity of [facility] Branch Respiratory rate 2022-12-02 15:04:00 18 /min Univ ersity of [place] [facility] Body height 2022-12-02 15:04:00 162.6 cm [facility] [place] [facility] Body weight 2022-12-02 15:04:00 69.037 kg [facility] [place] [facility] BMI 2022-12-02 15:04:00 26.13 kg/m2 [facility] [place] [facility] Systolic blood 2022-11-10 13:18:00 108 mm[Hg] Univer sity of pressure [facility] Diastolic blood 2022-11-10 13:18:00 74 mm[Hg] Unive rsity of pressure [facility] Heart rate 2022-11-10 13:18:00 82 /min [facility] [place] [facility] Body temperature 2022-11-10 13:18:00 36.56 Bibi Univ ers[facility] of [place] [facility] Respiratory rate 2022-11-10 13:18:00 18 /min Univ ersity of [place] [facility] Oxygen saturation in 2022-11-10 13:18:00 98 /min University Arterial blood by [facility] Pulse oximetry Branch Body height 2022-11-09 00:20:00 162.6 cm [facility] [place] [facility] Body weight 2022-11-09 00:20:00 83.008 kg [facility] [place] [facility] BMI 2022-11-09 00:20:00 31.41 kg/m2 [facility] [place] [facility] Systolic blood 2022-11-05 15:51:00 112 mm[Hg] Univer sity of pressure [facility] Diastolic blood 2022-11-05 15:51:00 73 mm[Hg] Unive rsity of pressure [facility] Heart rate 2022-11-05 15:51:00 87 /min [facility] Body temperature 2022-11-05 15:51:00 36.33 Bibi Univ ers[facility] [place] [facility] Respiratory rate 2022-11-05 15:51:00 17 /min Univ ersity of [place] [facility] Body height 2022-11-05 15:51:00 162.6 cm [facility] [place] [facility] Body weight 2022-11-05 15:51:00 82.81 kg [facility] [place] [facility] BMI 2022-11-05 15:51:00 31.34 kg/m2 [facility] [place] [facility] Systolic blood 2022-10-31 18:57:00 118 mm[Hg] Univer sity of pressure [facility] Diastolic blood 2022-10-31 18:57:00 80 mm[Hg] Unive rsity of pressure [facility] Branch Heart rate 2022-10-31 18:57:00 85 /min Universi ty of [facility] Body temperature 2022-10-31 18:57:00 36.22 Bibi Univ ersity of [facility] Respiratory rate 2022-10-31 18:57:00 20 /min Univ ersity of [facility] Body height 2022-10-31 18:57:00 162.6 cm Universi ty of [facility] Body weight 2022-10-31 18:57:00 81.761 kg Universi ty of [facility] Branch BMI 2022-10-31 18:57:00 30.94 kg/m2 Universi ty of [facility] Heart rate 2022-10-16 23:55:00 111 /min Universi ty of [facility] Oxygen saturation in 2022-10-16 23:55:00 100 /min University Arterial blood by [facility] Pulse oximetry Branch Systolic blood 2022-10-16 20:30:00 99 mm[Hg] Univer sity of pressure [facility] Diastolic blood 2022-10-16 20:30:00 65 mm[Hg] Unive rsity of pressure [facility] Body temperature 2022-10-16 20:30:00 37.22 Bibi Univ ersity of [facility] Respiratory rate 2022-10-16 20:30:00 18 /min Univ ersity of [facility] Body height 2022-10-16 20:30:00 162.6 cm Universi ty of [facility] Body weight 2022-10-16 20:30:00 80.513 kg [facility] [place] [facility] BMI 2022-10-16 20:30:00 30.45 kg/m2 Universi ty of [facility] Branch Systolic blood 2022-10-15 13:28:00 118 mm[Hg] Univer sity of pressure [facility] Diastolic blood 2022-10-15 13:28:00 78 mm[Hg] Unive rsity of pressure [facility] Heart rate 2022-10-15 13:28:00 92 /min Universi ty of [facility] Body height 2022-10-15 13:28:00 162.6 cm [facility] [place] [facility] [place] Body weight 2022-10-15 13:28:00 79.924 kg [facility] [place] [facility] BMI 2022-10-15 13:28:00 30.24 kg/m2 [facility] [place] [facility] [place] Systolic blood 2022-10-12 00:00:00 105 mm[Hg] Univer sity of pressure [facility] Diastolic blood 2022-10-12 00:00:00 67 mm[Hg] Unive rsity of pressure [facility] Heart rate 2022-10-12 00:00:00 94 /min Universi ty of [facility] Oxygen saturation in 2022-10-12 00:00:00 100 /min [facility] Arterial blood by [facility] Pulse oximetry [place] Body temperature 2022-10-11 15:48:00 36.56 Bibi Univ ersity of [facility] Respiratory rate 2022-10-11 15:48:00 16 /min Univ ersity of [facility] Body height 2022-10-11 15:48:00 162.6 cm [facility] [place] [facility] [place] Body weight 2022-10-11 15:48:00 77.837 kg Universi ty of [facility] Branch BMI 2022-10-11 15:48:00 29.46 kg/m2 Universi ty of [facility] Branch Systolic blood 2022-09-24 13:59:00 113 mm[Hg] Univer sity of pressure [facility] Diastolic blood 2022-09-24 13:59:00 65 mm[Hg] Unive rsity of pressure [facility] Heart rate 2022-09-24 13:59:00 89 /min Universi ty of [facility] Body temperature 2022-09-24 13:59:00 36.28 Bibi Univ ersity of [facility] Body height 2022-09-24 13:59:00 162.6 cm [facility] Body weight 2022-09-24 13:59:00 79.425 kg [facility] [place] [facility] BMI 2022-09-24 13:59:00 30.06 kg/m2 Universi ty of [facility] Systolic blood 2022-09-10 13:15:00 109 mm[Hg] Univer sity of pressure [facility] Branch Diastolic blood 2022-09-10 13:15:00 73 mm[Hg] Unive rsity of pressure [facility] Heart rate 2022-09-10 13:15:00 92 /min [facility] ty of [place] [facility] Body temperature 2022-09-10 13:15:00 36.33 Bibi Univ ers[facility] of [place] [facility] Respiratory rate 2022-09-10 13:15:00 18 /min Univ ersity of [place] [facility] Body height 2022-09-10 13:15:00 162.6 cm [facility] [place] [facility] Body weight 2022-09-10 13:15:00 78.427 kg [facility] [place] [facility] BMI 2022-09-10 13:15:00 29.68 kg/m2 [facility] [place] [facility] Systolic blood 2022-09-05 20:54:00 120 mm[Hg] Univer sity of pressure [facility] Diastolic blood 2022-09-05 20:54:00 71 mm[Hg] Unive rsity of pressure [facility] Heart rate 2022-09-05 20:54:00 101 /min [facility] ty [facility] [place] [facility] Body temperature 2022-09-05 20:54:00 36.33 Bibi Univ ers[facility] [place] [facility] Respiratory rate 2022-09-05 20:54:00 18 /min Univ ersity of [place] [facility] Body height 2022-09-05 20:54:00 162.6 cm [facility] [place] [facility] Body weight 2022-09-05 20:54:00 77.678 kg [facility] ty of [place] [facility] BMI 2022-09-05 20:54:00 29.39 kg/m2 [facility] [place] [facility] Systolic blood 2022-08-23 14:17:00 104 mm[Hg] Univer sity of pressure [facility] Diastolic blood 2022-08-23 14:17:00 65 mm[Hg] Unive rsity of pressure [facility] Heart rate 2022-08-23 14:17:00 84 /min Universi ty of [place] [facility] Body temperature 2022-08-23 14:17:00 36.33 Bibi Univ ers[facility] of [place] [facility] Respiratory rate 2022-08-23 14:17:00 20 /min Univ ersity of [place] [facility] Body height 2022-08-23 14:17:00 162.6 cm [facility] [place] [facility] Body weight 2022-08-23 14:17:00 77.111 kg [facility] [place] [facility] BMI 2022-08-23 14:17:00 29.18 kg/m2 [facility] [place] [facility] Systolic blood 2022-07-29 14:39:00 107 mm[Hg] Univer sity of pressure [facility] Branch Diastolic blood 2022-07-29 14:39:00 73 mm[Hg] Unive rsity of pressure [facility] Branch Heart rate 2022-07-29 14:39:00 82 /min Universi ty of [facility] Branch Body temperature 2022-07-29 14:39:00 36.5 Bibi Univ ersity of [facility] Branch Respiratory rate 2022-07-29 14:39:00 18 /min Univ ersity of [facility] Body height 2022-07-29 14:39:00 162.6 cm [facility]i ty of [place] [facility] Body weight 2022-07-29 14:39:00 73.483 kg [facility]i ty of [place] [facility] BMI 2022-07-29 14:39:00 27.81 kg/m2 Universi ty of [facility] Branch Oxygen saturation in 2022-07-29 14:39:00 99 /min University Arterial blood by [facility] Pulse oximetry Branch Systolic blood 2022-07-16 15:28:00 105 mm[Hg] Univer sity of pressure [facility] Diastolic blood 2022-07-16 15:28:00 60 mm[Hg] Unive rsity of pressure [facility] Heart rate 2022-07-16 15:28:00 91 /min Universi ty of [facility] Branch Body temperature 2022-07-16 15:28:00 36.44 Bibi Univ ersity of [facility] Branch Respiratory rate 2022-07-16 15:28:00 18 /min Univ ersity of [facility] Branch Body height 2022-07-16 15:28:00 162.6 cm Universi ty of [place] [facility] Body weight 2022-07-16 15:28:00 70.931 kg [facility]i ty of [place] [facility] BMI 2022-07-16 15:28:00 26.84 kg/m2 Universi ty of [facility] Systolic blood 2022-07-08 22:20:00 115 mm[Hg] Univer sity of pressure [facility] Diastolic blood 2022-07-08 22:20:00 75 mm[Hg] Unive rsity of pressure [facility] Heart rate 2022-07-08 22:20:00 96 /min [facility]i ty [facility] [place] [facility] Body temperature 2022-07-08 22:20:00 36.56 Bibi Univ ers[facility] [place] [facility] Body height 2022-07-08 22:20:00 162.6 cm [facility] ty [facility] Body weight 2022-07-08 22:20:00 72.122 kg [facility] ty [facility] [place] [facility] BMI 2022-07-08 22:20:00 27.29 kg/m2 Universi ty of [facility] Oxygen saturation in 2022-07-08 22:20:00 98 /min University Arterial blood by [facility] Pulse oximetry Branch Systolic blood 2022-06-25 14:27:00 112 mm[Hg] Univer sity of pressure [facility] Diastolic blood 2022-06-25 14:27:00 66 mm[Hg] Unive rsity of pressure [facility] Heart rate 2022-06-25 14:27:00 87 /min [facility]i ty [facility] Body temperature 2022-06-25 14:27:00 36.33 Bibi Univ ers[facility] Respiratory rate 2022-06-25 14:27:00 17 /min Univ ersity of [facility] Body height 2022-06-25 14:27:00 162.6 cm [facility] Body weight 2022-06-25 14:27:00 71.271 kg [facility] BMI 2022-06-25 14:27:00 26.97 kg/m2 [facility] Systolic blood 2022-06-21 13:12:00 116 mm[Hg] Univer sity of pressure [facility] Diastolic blood 2022-06-21 13:12:00 69 mm[Hg] Unive rsity of pressure [facility] Heart rate 2022-06-21 13:12:00 85 /min [facility]i ty [facility] [place] [facility] Body temperature 2022-06-21 13:12:00 36.56 Bibi Univ ers[facility] Respiratory rate 2022-06-21 13:12:00 18 /min Univ ersity of [facility] Body weight 2022-06-21 13:12:00 70.761 kg [facility] ty [facility] [place] [facility] BMI 2022-06-21 13:12:00 26.78 kg/m2 [facility] ty [facility] Oxygen saturation in 2022-06-21 13:12:00 98 /min University Arterial blood by [facility] Pulse oximetry Branch Body height 2022-06-13 13:58:00 162.6 cm [facility]i ty of [facility] Body weight 2022-06-13 13:58:00 69.4 kg [facility] ty [facility] BMI 2022-06-13 13:58:00 26.26 kg/m2 [facility] Systolic blood 2022-06-12 14:53:00 112 mm[Hg] Univer sity of pressure [facility] Diastolic blood 2022-06-12 14:53:00 66 mm[Hg] Unive rsity of pressure [facility] Heart rate 2022-06-12 14:53:00 74 /min [facility] ty [facility] Body temperature 2022-06-12 14:53:00 36.22 Bibi Univ ers[facility] of [facility] Respiratory rate 2022-06-12 14:53:00 18 /min Univ ersity of [facility] Body height 2022-06-12 14:53:00 162.6 cm [facility] Body weight 2022-06-12 14:53:00 69.673 kg [facility] BMI 2022-06-12 14:53:00 26.37 kg/m2 [facility] Systolic blood 2022-06-06 14:10:00 92 mm[Hg] [facility] Diastolic blood 2022-06-06 14:10:00 71 mm[Hg] Unive rsity [facility] Heart rate 2022-06-06 14:10:00 87 /min [facility] Body temperature 2022-06-06 14:10:00 36.44 Bibi [facility] Respiratory rate 2022-06-06 14:10:00 18 /min [facility] Body height 2022-06-06 14:10:00 162.6 cm [facility] Body weight 2022-06-06 14:10:00 68.901 kg [facility] BMI 2022-06-06 14:10:00 26.07 kg/m2 [facility] Oxygen saturation in 2022-06-06 14:10:00 99 /min University Arterial blood by [facility] Pulse oximetry Branch Systolic blood 2022-05-13 14:24:00 107 mm[Hg] [facility]iver [facility] Diastolic blood 2022-05-13 14:24:00 72 mm[Hg] Unive rsity of pressure [facility] Heart rate 2022-05-13 14:24:00 87 /min [facility] Body temperature 2022-05-13 14:24:00 37 Bibi Univ [facility] Respiratory rate 2022-05-13 14:24:00 18 /min Univ ersity of [facility] Body height 2022-05-13 14:24:00 162.6 cm [facility] [place] [facility] [place] Body weight 2022-05-13 14:24:00 67.858 kg [facility] BMI 2022-05-13 14:24:00 25.68 kg/m2 [facility] Systolic blood 2022-04-29 21:27:00 114 mm[Hg] [facility] Diastolic blood 2022-04-29 21:27:00 74 mm[Hg] Unive rsity of pressure [facility] Body temperature 2022-04-29 21:27:00 36.61 Bibi Univ ersity of [facility] Respiratory rate 2022-04-29 21:27:00 18 /min Univ ersity of [facility] Body weight 2022-04-29 21:27:00 68.448 kg [facility] BMI 2022-04-29 21:27:00 25.90 kg/m2 [facility] Systolic blood 2022-04-23 14:30:00 117 mm[Hg] Univer sity of pressure [facility] Diastolic blood 2022-04-23 14:30:00 73 mm[Hg] Unive rsity of pressure [facility] Heart rate 2022-04-23 14:30:00 88 /min [facility] Body temperature 2022-04-23 14:30:00 36.78 Bibi [facility] Respiratory rate 2022-04-23 14:30:00 18 /min [facility] Body height 2022-04-23 14:30:00 162.6 cm [facility] Body weight 2022-04-23 14:30:00 66.18 kg [facility] BMI 2022-04-23 14:30:00 25.04 kg/m2 [facility] Systolic blood 2022-04-15 14:40:00 118 mm[Hg] [facility] Diastolic blood 2022-04-15 14:40:00 76 mm[Hg] [facility] Heart rate 2022-04-15 14:40:00 82 /min [facility] Body temperature 2022-04-15 14:40:00 36.89 Bibi [facility] Body weight 2022-04-15 14:40:00 66.044 kg [facility] BMI 2022-04-15 14:40:00 24.99 kg/m2 [facility] Systolic blood 2022-04-09 21:04:00 110 mm[Hg] [facility] Diastolic blood 2022-04-09 21:04:00 74 mm[Hg] [facility] Heart rate 2022-04-09 21:04:00 99 /min [facility] Body temperature 2022-04-09 21:04:00 36.94 Bibi [facility] Body weight 2022-04-09 21:04:00 66.679 kg [facility] BMI 2022-04-09 21:04:00 25.23 kg/m2 [facility] Systolic blood 2022-03-22 20:46:00 112 mm[Hg] [facility] Diastolic blood 2022-03-22 20:46:00 73 mm[Hg] [facility] Heart rate 2022-03-22 20:46:00 103 /min [facility] Body temperature 2022-03-22 20:46:00 36.89 Bibi [facility] Respiratory rate 2022-03-22 20:46:00 16 /min [facility] Body weight 2022-03-22 20:46:00 65.772 kg [facility] BMI 2022-03-22 20:46:00 24.89 kg/m2 [facility] Oxygen saturation in 2022-03-22 20:46:00 99 /min University of Arterial blood by [place] [facility] Pulse oximetry Branch Systolic blood 2022-03-06 21:27:00 129 mm[Hg] [facility] Diastolic blood 2022-03-06 21:27:00 80 mm[Hg] [facility] Heart rate 2022-03-06 21:27:00 72 /min [facility] Body temperature 2022-03-06 21:27:00 36.89 Bibi [facility] Respiratory rate 2022-03-06 21:27:00 18 /min [facility] Body height 2022-03-06 21:27:00 162.6 cm [facility] Body weight 2022-03-06 21:27:00 65.772 kg [facility] BMI 2022-03-06 21:27:00 24.89 kg/m2 [facility] Systolic blood 2022-02-22 21:54:00 122 mm[Hg] [facility] Diastolic blood 2022-02-22 21:54:00 67 mm[Hg] [facility] Heart rate 2022-02-22 21:54:00 62 /min [facility] Respiratory rate 2022-02-22 21:54:00 18 /min [facility] Body weight 2022-02-22 21:54:00 68.04 kg [facility] BMI 2022-02-22 21:54:00 25.75 kg/m2 [facility] Oxygen saturation in 2022-02-22 21:54:00 99 /min University of Arterial blood by [facility] Pulse oximetry Branch Body height 2022-02-12 14:38:00 162.6 cm [facility] Body weight 2022-02-12 14:38:00 67.132 kg [facility] BMI 2022-02-12 14:38:00 25.40 kg/m2 [facility] Systolic blood 2022-02-11 22:01:00 116 mm[Hg] Univer sity of pressure [facility] Diastolic blood 2022-02-11 22:01:00 81 mm[Hg] Unive rsity of pressure [facility] Heart rate 2022-02-11 22:01:00 88 /min [facility] Body temperature 2022-02-11 22:01:00 36.94 Bibi [facility] Respiratory rate 2022-02-11 22:01:00 18 /min Univ [facility] Body height 2022-02-11 22:01:00 162.6 cm [facility] Body weight 2022-02-11 22:01:00 67.132 kg [facility] BMI 2022-02-11 22:01:00 25.40 kg/m2 [facility] Systolic blood 2022-01-29 13:39:00 125 mm[Hg] Univer sity of pressure [facility] Diastolic blood 2022-01-29 13:39:00 83 mm[Hg] Unive rsity of pressure [facility] Heart rate 2022-01-29 13:39:00 96 /min [facility] Body height 2022-01-29 13:39:00 162.6 cm [facility] Body weight 2022-01-29 13:39:00 65.545 kg [facility] BMI 2022-01-29 13:39:00 24.80 kg/m2 [facility] Systolic blood 2021-12-17 13:13:00 116 mm[Hg] Univer sity of pressure [facility] Diastolic blood 2021-12-17 13:13:00 78 mm[Hg] Unive rsity of pressure [facility] Heart rate 2021-12-17 13:13:00 87 /min General acute hospital Body temperature 2021-12-17 13:13:[address] [facility] Respiratory rate 2021-12-17 13:13:00 18 /min [facility] Body height 2021-12-17 13:13:00 162.6 cm General acute hospital Body weight 2021-12-17 13:13:00 63.504 kg [facility] acute hospital BMI 2021-12-17 13:13:00 24.03 kg/m2 [facility] acute hospital Body height 2021-08-21 12:15:00 162.6 cm [facility] acute hospital Body weight 2021-08-21 12:15:00 63.504 kg [facility] acute hospital BMI 2021-08-21 12:15:00 24.03 kg/m2 General acute hospital Procedures Procedure Date / Time Performing Clinician Source Performed FLU VACC ([id number]), 6 2023-01-01 12:25:01 Ella Gtz U [facility] [place]62 YRS, .5ML, IM, QUAD Medica l Branch (FLUCELVAX) CBC WITH DIFF 2022-11-10 08:49:00 Edilia Hewitt [facility] VENOUS CORD GAS 2022-11-09 12:49:00 Edilia Hewitt [facility] CENTRAL NEURAXIAL BLOCK 2022-11-09 06:25:[address] [facility] CBC WITH DIFF 2022-11-09 00:56:00 Edilia Hewitt [facility] HEPATITIS B SURFACE 2022-11-09 00:56:00 Edilia Hewitt [facility] HB ABO GROUPING 2022-11-09 00:56:00 Edilia Hewitt [facility] RHO (D) IMMUNE GLOBULIN 2022-11-09 00:56:00 Edilia Hewitt [facility] HIV 1/2 AG-AB WITH REFLEX 2022-11-09 00:56:00 Edilia Hewitt [facility] SYPHILIS IGG/IGM 2022-11-09 00:56:00 Edilia Hewitt [facility] HOSPITAL ADMISSION 2022-11-08 05:01:00 Doctor Augie, [facility] Name Medical [place] POCT URINALYSIS W/O 2022-11-05 15:44:[address] [facility] SPECIFIC GRAVITY Medical [place] POCT URINALYSIS W/O 2022-10-31 18:59:00 Lorena Naranjo [facility] GRAVITY Medical [place] ASSIGNMENT OF BENEFITS 2022-10-16 19:49:30 Doctor Augie, [facility] Name Medical Branch AUTHORIZATION FOR RELEASE 2022-10-16 05:01:00 Doctor Augie, [facility] Name Medical [place] L&D VISIT (NON-DELIVERED) 2022-10-16 05:01:00 Doctor Augie, [facility] Name [facility] ADC CLC OR LCC ONLY - WET 2022-10-11 16:29:00 Rafaela Novoa [facility] ASSIGNMENT OF BENEFITS 2022-10-11 15:30:05 Doctor Augie, [facility] Name Medical [place] NOTICE OF PRIVACY 2022-10-11 15:29:11 Doctor Augie, [facility] PRACTICES [facility] [place] CONSENT/REFUSAL FOR 2022-10-11 15:28:55 Doctor Augie, [facility] DIAGNOSIS AND TREATMENT [place] [place] POCT URINALYSIS W/O 2022-09-24 13:57:00 Arturo Bowen [facility] GRAVITY [facility] POCT URINALYSIS W/O 2022-09-10 00:00:00 Arturo Bowen [facility] GRAVITY Medical [place] POCT URINALYSIS 2022-09-05 20:57:00 Sarah Santana [facility] POCT URINALYSIS W/O 2022-08-23 00:00:[address] [facility] SPECIFIC GRAVITY Medical Branch POCT URINALYSIS W/O 2022-07-29 14:52:00 Ary Norton [facility] SPECIFIC GRAVITY Medical [place] POCT URINALYSIS W/O 2022-07-16 15:31:[address] [facility] SPECIFIC GRAVITY [facility] PATIENT FINANCIAL 2022-07-08 22:06:46 [facility] [place] POCT URINALYSIS W/O 2022-06-25 14:21:00 Ary Norton [facility] GALV ONLY - VAGINAL 2022-06-12 16:30:00 Ethan Davidson [facility] PATHOGENS BY NUCLEIC ACID Medica l Branch TESTING POCT TEST 2022-06-12 14:55:00 Ethan Davidson [facility] POCT URINALYSIS W/O 2022-06-12 14:55:00 Ethan Davidson [facility] IMMUNOGLOBULIN G SUBCLASS 2022-06-06 14:50:00 Becky[facility] 4 [facility] Antonio [facility] POCT URINALYSIS W/O 2022-05-13 14:28:00 Lucinda Sanchez [facility] MEDICAL RELEASE/CLEARANCE 2022-04-26 06:01:00 Doctor Augie, [facility] FORMS [facility] [place] US OB TRANSVAGINAL 2022-04-15 15:32:59 Hawa Leos [facility] ASSIGNMENT OF BENEFITS 2022-04-15 13:58:05 Doctor Unassigned, Un [facility] Medical [place] URINE DRUG (IMMUNOASSAY) 2022-04-09 23:13:00 Lucinda Sanchez [facility] COMPREHENSIVE DRUG Medical [facility] SCREEN FLU VACC (), 6 2022-04-09 21:53:05 Lucinda Sanchez [facility] [place]-62 YRS, .5ML, IM, QUAD Medica l Branch (FLUCELVAX) POCT TEST 2022-04-09 00:00:00 Lucinda Sanchez [facility] acute hospital SCANNED LAB RESULTS 2022-03-06 06:01:00 Doctor Augie, [facility] Name [facility] GALV ONLY - VAGINAL 2022-02-11 22:10:00 Evelin Dickerson [facility] PATHOGENS BY NUCLEIC ACID Medica l Branch TESTING MR BRAIN W WO CONTRAST 2022-02-05 22:51:00 Marquis Hall [facility] ASSIGNMENT OF BENEFITS 2022-02-05 21:19:01 Doctor [facility], [facility] [place] [facility] Encounters Start End Encounter Admission Attending Care Care Encounter Source Date/Time Date/Time Type Type Clinicians Facility Department ID 2021-08-20 Outpatient R ROQUE WATTS [facility] [id number] Univers 07:24:16 ROQUE WATTS itreinaldo [facility] 2021-02-04 Emergency [facility] [id number] Univers 13:32:30 ity [facility] 2021 Emergency [facility] [id number] Univers 15:26:05 ity [facility] 2021 Outpatient P [facility] [id number] Univers 14:27:21 ity [facility] 2021 Outpatient P [facility] [id number] Univers 14:19:03 ity [facility] 2021 Outpatient P [facility] [id number] Univers 14:06:[facility] P [facility] [id number] Univers 12:06:20 ity [facility] 2021 Outpatient P [facility] [id number] Univers 12:01:06 [facility] 2023-01-29 2023-01-29 Patient Louisa [facility] 1.2.840.114 [id number] Univers 00:00:00 00:00:00 Secure [facility] Roque [facility] 350.1.13.10 ity of CLEAR 4.2.7.2.686 Nadiridalia mijares [place] [id number] [address] OFFICE BUILDING 2023-01-01 2023-01-01 Outpatient R TRESA [facility] [id number] Univers 06:45:00 07:54:05 ELLA polo [facility] 2023-01-01 2023-01-01 Office Karner, [facility] 1.2.840.114 [id number] Univers 06:45:00 07:54:05 Visit Ella Garg RESPITE COORDINATOR 350.1.13.10 ity of [facility] 4.2.7.2.686 Nadir as MATERNAL [id number] [facility] [address] 2022-12-27 2022-12-27 Outpatient R RAZ RILEY [facility] [id number] Univers 08:30:00 09:26:28 ity [facility] 2022-12-27 2022-12-27 Office Rosemary [facility] 1.2.840.114 [id number] Univers 08:30:00 09:26:28 Visit PRIMARY 350.1.13.10 it y of CARE 4.2.7.2.686 [place] [id number] [address] 2022-12-02 2022-12-02 Routine [facility] 1.2.123.493 [id number] Univers 10:00:00 10:15:00 Lorena Velasco RESPITE COORDINATOR 350.1.13.10 i ty of Visit [facility] 4.2.7.2.686 Nadir as MATERNAL [id number] [facility] [address] 2022-12-02 2022-12-02 Outpatient Josseline NARANJO [facility] [id number] Univers 10:00:00 10:00:00 LORNEA corona [facility] 2022-11-08 2022-11-10 Inpatient P YOUSUF BIRCH [facility] [id number] Univers 18:29:00 14:06:00 YOUSUF BIRCH [facility] 2022-11-08 2022-11-10 Hospital CHENG Birch 1.2.840.114 [id number] Univers 18:29:00 14:06:00 Encounter Yousuf FLYNN 350.1.13.10 ity [facility] 4.2.7.2.686 Nadir as [id number] [address] 2022-11-09 2022-11-09 Anesthesia James Veloz 1.2.840.114 [id number] Univers 01:22:00 10:04:00 Event Alquicira-Mcallister, Juaquin APPLEY 350 .1.13.10 ity of HOSPITAL 4.2.7.2.686 Nadir as [id number] [facility] [address] 2022-11-08 2022-11-08 Telephone Jessi RISEE [id number] Univers 00:00:00 00:00:00 Arturo Amador RESPITE COORDINATOR 350.1.13.10 i ty of [facility] 4.2.7.2.686 Nadir as MATERNAL [id number] Med ical & CHILD [address] [place] [address] 2022-11-08 2022-11-08 Orders Doctor CHENG 1.2.840.114 [id number] Univers 00:00:00 00:00:00 Only Unassigned, GEE 350.1.13.10 ity of [place] [facility] 4.2.7.2.686 Nadir as [id number] [facility] [address] Branch 2022-11-07 2022-11-07 Outpatient R [facility] [id number] Univers 08:30:00 08:30:00 ity [facility] 2022-11-05 2022-11-05 Outpatient R JESSI [facility] [id number] Univers 10:15:00 11:32:22 ARTURO ity [facility] 2022-11-05 2022-11-05 Routine Risk, Pea-Rmchp Provider/High [facility] 1.2.840.114 [id number] Univers 10:15:00 11:32:22 Arturo Bowen RESPITE COORDINATOR 350.1.13.10 ity of Visit [facility] 4.2.7.2.686 Nadir as MATERNAL [id number] Med ical & CHILD [address] [place] [address] 2022-11-05 2022-11-05 Letter Jessi RISEE 1.2.840.114 [id number] Univers 00:00:00 00:00:00 (Out) Arturo Amador RESPITE COORDINATOR 350.1.13.10 i ty of [facility] 4.2.7.2.686 Nadir as MATERNAL [id number] Med ical & CHILD [address] [place] [address] 2022-11-04 2022-11-04 Telephone [facility] 1.2.840.114 [id number] Univers 00:00:00 00:00:00 Lorena N RESPITE COORDINATOR 350.1.13.10 it y of REGIONAL 4.2.7.2.686 Nadir as MATERNAL [id number] [facility] [address] 2022-10-31 2022-10-31 [facility] [id number] Univers 14:00:00 14:30:49 LORENA corona [facility] 2022-10-31 2022-10-[address] [facility] 1.2.027.872 [id number] Univers 14:00:00 14:30:49 Lorena Velasco RESPITE COORDINATOR 350.1.13.10 i ty of Visit REGIONAL 4.2.7.2.686 Nadir as MATERNAL [id number] [address] 2022-10-31 2022-10-31 Letter [facility] 1.2.143.008 [id number] Univers 00:00:00 00:00:00 (Out) Lorena Velasco RESPITE COORDINATOR 350.1.13.10 it y of REGIONAL 4..7.2.686 Nadir as MATERNAL [id number] [address] 2022-10-22 2022-10-22 Outpatient R JESSI [facility] [id number] Univers 09:45:00 10:43:59 ARTURO corona [facility] 2022-10-22 2022-10-22 Papi [facility] 1.2.840.114 [id number] Univers 00:00:00 00:00:00 (Out) Arturo Amador RESPITE COORDINATOR 350.1.13.10 i ty of REGIONAL 4..7.2.686 Nadir as MATERNAL [id number] [address] 2022-10-17 2022-10-17 Outpatient R OLGA [facility] [id number] Univers 16:15:00 16:15:00 BRANDON corona [facility] 2022-10-16 2022-10-16 Outpatient X HAWA LEOS [facility] [id number] Univers 15:02:00 19:17:00 ity of [facility] 2022-10-16 2022-10-16 Emergency Hawa Leos [facility] 1.2.840.114 [id number] Univers 15:02:00 19:17:00 Jevon URIBE 350.1.13.10 i ty of [place] 4.2.7.2.686 [facility] [id number] [address] 2022-10-15 2022-10-15 Office [facility] 1.2.840.114 [id number] Univers 08:20:00 08:40:00 Visit [facility] 350.1.13.10 it y of [place] 4.2.7.2.686 [facility] [id number] [address] OFFICE BUILDING 2022-10-15 2022-10-15 Outpatient R ROQUE WATTS [facility] [id number] Univers 08:20:00 08:20:00 ROQUE WATTS reinaldo [facility] 2022-10-11 2022-10-11 Outpatient P [facility] [id number] Univers 10:42:00 19:30:00 RAFAELA corona [facility] 2022-10-11 2022-10-11 [facility] 1.2.840.114 [id number] Univers 10:42:00 19:30:00 Encounter Rafaela URIBE 350.1.13.10 ity of [facility] 4.2.7.[address] [place] [id number] 2022-10-02 2022-10-02 Telephone [facility] 1.2.341.816 [id number] Univers 00:00:00 00:00:00 Arturo Amador RESPITE COORDINATOR 350.1.13.10 i ty of [facility] 4.2.7.2.686 Nadir as MATERNAL [id number] Med ical & CHILD [address] [place] [address] 2022-09-24 2022-09-24 Outpatient R JESSI [facility] [id number] Univers 08:30:00 09:42:03 ARTURO ity [facility] 2022-09-24 2022-09-24 Routine Risk, Pea-Rmchp Provider/High [facility] 1.2.840.114 [id number] Univers 08:30:00 09:42:03 Jessi Arturo Amador RESPITE COORDINATOR 350.1.13.10 ity of Visit REGIONAL 4.2.7.2.686 Nadir as MATERNAL [id number] [facility] ical & CHILD [address] [place] [address] 2022-09-24 2022-09-24 Papi Bowen [facility] 1.2.840.114 [id number] Univers 00:00:00 00:00:00 (Out) Arturo Amador RESPITE COORDINATOR 350.1.13.10 i ty of REGIONAL 4.2.7.2.686 Nadir as MATERNAL [id number] [facility] [address] [place] [address] 2022-09-10 2022-09-10 Outpatient Josseline BOWEN [facility] [id number] Univers 08:15:00 08:43:05 ARTURO [facility] 2022-09-10 2022-09-10 Routine Risk, Pea-Rmchp Provider/High [facility] 1.2.840.114 [id number] Univers 08:15:00 08:43:05 Arturo Bowen RESPITE COORDINATOR 350.1.13.10 ity of Visit REGIONAL 4.2.7.2.686 Nadir as MATERNAL [id number] [facility] [address] [place] [address] 2022-09-05 2022-09-05 Outpatient Josseline SANTANA [facility] [id number] Univers 15:15:00 16:37:17 [facility] 2022-09-05 2022-09-05 Routine [facility] 1.2.840.114 [id number] Univers 15:15:00 16:37:17 Sarah A RESPITE COORDINATOR 350.1.13.10 ity of Visit REGIONAL 4.2.7.2.686 Nadir as MATERNAL [id number] [facility] ical & CHILD [address] [place] [address] 2022-09-05 2022-09-05 Letter Esther [facility] 1.2.840.114 [id number] Univers 00:00:00 00:00:00 (Out) Sarah Garg RESPITE COORDINATOR 350.1.13.10 i ty of [facility] 4.2.7.2.686 Nadir as MATERNAL [id number] Med ical & CHILD [address] [place] [address] 2022-09-03 2022-09-03 Nurse Jessi [facility] 1.2.840.114 [id number] Univers 00:00:00 00:00:00 Triage Arturo Amador RESPITE COORDINATOR 350.1.13.10 i ty of [facility] 4.2.7.2.686 Nadir as MATERNAL [id number] [facility] ical & CHILD [address] [place] [address] 2022-08-28 2022-08-28 Outpatient Josseline BOWEN [facility] [id number] Univers 08:00:00 09:13:13 [facility] 2022-08-28 2022-08-28 Hr [employer], Pea-Rmchp [facility] 1.2.840. 114 [id number] Univers 08:00:00 09:13:13 Visit Arturo Bowen RESPITE COORDINATOR 350.1.13.10 ity of [facility] 4.2.7.2.686 Nadir as MATERNAL [id number] [facility] [address] [place] [address] 2022-08-28 2022-08-28 Letter Visit, [facility] 1.2.840.114 [id number] Univers 00:00:00 00:00:00 (Out) Nurse RESPITE COORDINATOR 350.1.13.10 it y of [facility] 4.2.7.2.686 Nadir as MATERNAL [id number] [facility] ical & CHILD [address] [place] [address] 2022-08-23 2022-08-23 Outpatient Josseline BOWEN [facility] [id number] Univers 08:45:00 09:37:36 ARTURO corona [facility] 2022-08-23 2022-08-23 Routine Risk, Pea-Rmchp Provider/High [facility] 1.2.840.114 [id number] Univers 08:45:00 09:37:36 Arturo Bowen RESPITE COORDINATOR 350.1.13.10 ity of Visit REGIONAL 4.2.7.2.686 Nadir as MATERNAL [id number] [facility] ical & CHILD [address] [place] [address] 2022-08-20 2022-08-20 Telephone Ken [facility] 1.2.840.114 [id number] Univers 00:00:00 00:00:00 Ethan RESPITE COORDINATOR 350.1.13.10 it y of REGIONAL 4.2.7.2.686 Nadir as MATERNAL [id number] [facility] ical & CHILD [address] [place] [address] 2022-07-29 2022-07-29 Outpatient R ADAN VIDAL [facility] [id number] Univers 09:45:00 10:09:04 [facility] 2022-07-29 2022-07-29 Routine Risk, [facility] Physician/High [facility] 1.2.840.114 [id number] Univers 09:45:00 10:09:04 Adan Vidal RESPITE COORDINATOR 350.1.13.10 ity of Visit REGIONAL 4.2.7.2.686 Nadir as MATERNAL [id number] [facility] ical & CHILD [address] [place] [address] 2022-07-29 2022-07-29 Letter Errol [facility] 1.2.840.114 [id number] Univers 00:00:00 00:00:00 (Out) Ary Renee RESPITE COORDINATOR 350.1.13.10 ity of REGIONAL 4.2.7.2.686 Nadir as MATERNAL [id number] [facility] ical & CHILD [address] [place] [address] 2022-07-29 2022-07-29 Abstract Marcella [facility] 1.2.840.114 [id number] Univers 00:00:00 00:00:00 Lorena Velasco RESPITE COORDINATOR 350.1.13.10 it y of REGIONAL 4.2.7.2.686 Nadir as MATERNAL [id number] [facility] ical & CHILD [address] [place] [address] 2022-07-25 2022-07-25 Hr Recruiter 1, [facility] 1.2. 840.114 [id number] Univers 09:30:00 10:41:19 Visit Naomie Liujose c Nelsy RESPITE COORDINATOR 350.1. 13.10 ity of [facility] 4.2.7.2.686 Nadir as MATERNAL [id number] [facility] ical & CHILD [address] [facility] 2022-07-25 2022-07-25 Outpatient P NAOMIE [facility] [id number] Univers 09:30:00 09:30:00 SYEDJOSLYN it y of NELSY Mijares [facility] 2022-07-16 2022-07-16 Outpatient R JESSI [facility] [id number] Univers 10:15:00 11:12:47 [facility]O [facility] 2022-07-16 2022-07-16 Routine Risk, Pea-Rmchp Provider/High [facility] 1.2.840.114 [id number] Univers 10:15:00 11:12:47 Arturo Bowen RESPITE COORDINATOR 350.1.13.10 ity of Visit [facility] 4.2.7.2.686 Nadir as MATERNAL [id number] [facility] ical & CHILD [address] [facility] 2022-07-10 2022-07-10 Letter CHENG Amaya 1.2.840.114 [id number] Univers 00:00:00 00:00:00 (Out) Ary APPLEY 350.1.13.10 it y of [facility] 4.2.7.2.686 Nadir as [id number] [address] 2022-07-08 2022-07-08 Outpatient R ANIYAH [facility] [id number] Univers 17:00:00 17:37:33 NICOL corona [facility] 2022-07-08 2022-07-08 Urgent Nicol Blount [facility] 1.2.840.114 1 [id number] Univers 17:00:00 17:37:33 Care Unknown, Attending HEALTH 350.1.13.10 ity [facility] 4.2.7.2.686 Nadir as LEILANI?BLEA [id number] Ga carlos [address] MEDICAL OFFICE BUILDING 2022-07-08 2022-07-08 Outpatient P PATRICIA [facility] [id number] Univers 10:00:00 10:00:00 CHASEY ity of [facility] 2022-07-08 2022-07-08 Orders Doctor CHENG 1.2.840.114 [id number] Univers 00:00:00 00:00:00 Only Unassigned, GEE 350.1.13.10 ity of [place] [facility] 4.2.7.2.686 Nadir as [id number] [address] 2022-06-25 2022-06-25 Outpatient R ERROL [facility] [id number] Univers 09:15:00 09:35:55 ARY ity of [facility] 2022-06-25 2022-06-25 Routine Risk, Pea-Rmchp Provider/High [facility] 1.2.840.114 [id number] Univers 09:15:00 09:35:55 Arturo Bowen RESPITE COORDINATOR 350.1.13.10 ity of Visit REGIONAL 4.2.7.2.686 Nadir as MATERNAL [id number] Med ical & CHILD [address] [place] [address] 2022-06-21 2022-06-21 Outpatient R RAZ RILEY [facility] [id number] Univers 08:30:00 09:14:57 ity of [facility] 2022-06-21 2022-06-21 Office Raz Riley [facility] 1.2.840.114 [id number] Univers 08:30:00 09:14:57 Visit PRIMARY 350.1.13.10 it y [place] [id number] [address] 2022-06-21 2022-06-21 Letter Raz Riley [facility] 1.2.840.114 10 [id number] Univers 00:00:00 00:00:00 (Out) PRIMARY 350.1.13.10 it y of [place] [id number] Ga dic[address] 2022-06-17 2022-06-17 Patient Rafi [facility] 1.2.840.114 10 [id number] Univers 00:00:00 00:00:00 Secure Msg z, Juan Antonio PRIMARY 350.1.13.10 ity of CARE 4.2.7.2.686 [place] [id number] [address] 2022-06-15 2022-06-15 Telephone Ken [facility] 1.2.840.114 101 [id number] Univers 00:00:00 00:00:00 Ethan RESPITE COORDINATOR 350.1.13.10 it y of REGIONAL 4.2.7.2.686 Nadir as MATERNAL [id number] [facility] & CHILD [address] [place] [address] 2022-06-13 2022-06-13 Outpatient R ROQUE WATTS [facility] [id number] Univers 07:40:00 08:16:43 ROQUE WATTS [facility] 2022-06-13 2022-06-13 Office [facility] 1.2.840.114 [id number] Univers 07:40:00 08:16:43 Visit [facility] 350.1.13.10 it y of CLEAR 4.2.7.2.686 [place] [id number] [address] OFFICE BUILDING 2022-06-12 2022-06-12 Outpatient R ETHAN DAVIDSON [facility] [id number] Univers 08:30:00 09:47:25 ETHAN DAVIDSON [facility] 2022-06-12 2022-06-12 Initial [facility] 1.2.840.114 [id number] Univers 08:30:00 09:47:25 Ethan RESPITE COORDINATOR 350.1.13.10 i ty of Visit REGIONAL 4.2.7.2.686 Nadir as MATERNAL [id number] [facility] & CHILD [address] [place] [address] 2022-06-10 2022-06-10 Outpatient Josseline GTZ [facility] [id number] Univers 09:45:00 09:45:09 ELLA polo [facility] 2022-06-10 2022-06-10 Papi Gtz [facility] 1.2.840.114 [id number] Univers 00:00:00 00:00:00 (Out) Ella Garg RESPITE COORDINATOR 350.1.13.10 ity of REGIONAL 4.2.7.2.686 Nadir as MATERNAL [id number] Med ical & CHILD [address] [place] [address] 2022-06-06 2022-06-06 Hr Recruiter Pcp-Lab [facility] 1.2.840.114 101 [id number] Univers 08:45:00 09:00:00 Visit Isaak Castanon PRIMARY 350.1.13.10 it[place] of [place] [id number] [address] 2022-06-06 2022-06-06 Outpatient R LG [facility] [id number] Univers 08:00:00 08:45:30 ISAAK ity of [facility] 2022-06-06 2022-06-06 Office Juan Antonio Pena [facility] 1.2. 840.114 [id number] Univers 08:00:00 08:45:30 Visit Isaak Castanon PRIMARY 350.1.13.10 ity of [place] 4[place].2.[place] [id number] [address] 2022-06-06 2022-06-06 Letter Rafi [facility] 1.2.840.114 10 [id number] Univers 00:00:00 00:00:00 (Out) Juan Antonio watson PRIMARY 350.1.13.10 ity of [place] 4[place]2.[place] [id number] [address] 2022-06-06 2022-06-06 Telephone Louisa [facility] 1.2.538.303 [id number] Univers 00:00:00 00:00:00 Roque HEALTH 350.1.13.10 it y of [place].2.[place] [id number] [address] OFFICE BUILDING 2022-06-05 2022-06-05 Patient Doctor [facility] 1.2.840.114 [id number] Univers 00:00:00 00:00:00 Secure Msg Unassigned, HEALTH 350.1.13.10 ity of [place].2.7.2.[place] [id number] [place] [address] [address] OFFICE BUILDING 2022-05-22 2022-05-22 Telephone LeosLillieen [facility] 1.2.840.114 10 [id number] Univers 00:00:00 00:00:00 Jevon URIBE 350.1.13.10 i ty of [place].7.2.[place] [id number] [facility] [address] [facility] 2022-05-13 2022-05-13 Hr Recruiter 2, Adc Lab [facility] 1.2.840.114 [id number] Univers 09:15:00 09:30:00 Visit Lucinda Sanchez 350.1.13.10 ity of [place].7.2.[place] [id number] [facility] [address] [facility] 2022-05-13 2022-05-13 Outpatient [facility] [id number] Univers 08:00:00 08:54:13 LUCINDA ity [facility] 2022-05-13 2022-05-13 Routine [facility] 1.2.220.671 [id number] Univers 08:00:00 08:15:00 Lucinda URIBE 350.1.13.10 ity of Visit [place].7.2.[place] [id number] [address] 2022-05-13 2022-05-13 Letter Daniel [facility] 1.2.799.043 [id number] Univers 00:00:00 00:00:00 (Out) Lucinda URIBE 350.1.13.10 i ty of [place].2.[place] [id number] [facility] [address] [facility] 2022-05-09 2022-05-09 Outpatient R RAZ RILEY [facility] [id number] Univers 10:00:00 23:59:00 ity of [facility] 2022-05-09 2022-05-09 Hospital Raz Riley [facility] 1.2.840.114 1 [id number] Univers 08:00:00 23:59:00 Encounter HEALTH 350.1.13.10 ity of [place].2.[place] [id number] [facility] [address] ([facility]) 2022-05-03 2022-05-03 Telephone Raz Riley [facility] 1.2.840.114 [id number] Univers 00:00:00 00:00:00 PRIMARY 350.1.13.10 it y of C[place] 4[place]2.7.2.[place] [id number] [facility] [address] 2022-04-30 2022-04-30 Patient Doctor [facility] 1.2.840.114 [id number] Univers 00:00:00 00:00:00 Secure Msg Unassigned, HEALTH 350.1.13.10 ity of [place].2.7.2.[place] JASIEL [id number] [facility] [address] OFFICE BUILDING 2022-04-29 2022-04-29 Outpatient R BRYAN SLATER [facility] [id number] Univers 15:30:00 16:07:50 BRYAN SLATER ity of [facility] 2022-04-29 2022-04-29 Office Faculty, Rodriguez [facility] 1.2 .840.114 [id number] Univers 15:30:00 16:07:50 Visit Bryan Slater RESPITE COORDINATOR 350.1.13.10 ity of REGIONAL 4.2.7.2.686 Nadir as MATERNAL [id number] Med ical & CHILD 107 [facility] 2022-04-29 2022-04-29 [facility]phone [facility] 1.2.840.114 10 [id number] Univers 00:00:00 00:00:00 Bryan LUIS 350.1.13.10 it y of PEDIATRIC [place].2.[place] [facility] [id number] [facility] [address] 2022-04-26 2022-04-26 Orders Doctor CHENG 1.2.840.114 [id number] Univers 00:00:00 00:00:00 Only Unassigned, GEE 350.1.13.10 ity of [place] HOSPITAL 4.2.7.2.686 Nadir as [id number] [address] 2022-04-24 2022-04-24 Telephone Hawa Leos RISEE 1.2.840.114 99 [id number] Univers 00:00:00 00:00:00 Cam [place] 350.1.13.10 i ty of [place] 4.2.7.2.[place] [id number] Ga dical NAL [address] [place] [address] 2022-04-23 2022-04-23 Outpatient R JAYLA EVELIN [facility] B [id number] Univers 08:30:00 08:44:35 EVELIN DICKERSON [facility] [place] 2022-04-23 2022-04-23 [facility] 1.2.840.114 [id number] Univers 08:30:00 08:44:35 Visit Evelin LUIS 350.1.13.10 it y of W[place].7.2.[place] [id number] [address] 2022-04-23 2022-04-23 Letter [facility] 1.2.840.114 [id number] Univers 00:00:00 00:00:00 (Out) Evelin LUIS 350.1.13.10 it y of W[place]EN'[place] 4.2.7.2.[place] [id number] [address] 2022-04-19 2022-04-19 Outpatient R EVELIN DICKERSON [facility] B [id number] Univers 15:30:00 15:30:00 EVELIN DICKERSON [facility] [place] 2022-04-15 2022-04-15 Outpatient R HAWA LEOS [facility] [id number] Univers 08:00:00 09:27:52 ity of [facility] 2022-04-15 2022-04-15 Routine Hawa Leos [facility] 1.2.917.068 [id number] Univers 08:00:00 09:27:52 Cam ANGLEEUGENIE 350.1.13.10 ity of Visit [facility] 4.2.7.2.[place] [id number] [facility] [address] [facility] 2022-04-15 2022-04-15 Orders Doctor CHENG 1.2.840.114 [id number] Univers 00:00:00 00:00:00 Only Unassigned, GEE 350.1.13.10 ity of [place] HOSPITAL 4.2.7.2.686 Nadir as [id number] [facility] [address] 2022-04-15 2022-04-15 Letter Hawa Leos [facility] 1.2.136.257 [id number] Univers 00:00:00 00:00:00 (Out) Jevon URIBE 350.1.13.10 i ty of [place] 4.2.7.2.[place] [id number] [facility] [address] [facility] 2022-04-15 2022-04-15 Telephone Raz Riley [facility] .2.840.11 4 [id number] Univers 00:00:00 00:00:00 HEALTH 350.1.13.10 i ty of CLINICS 4.2.7.2.[place] [id number] [facility] [address] 2022-04-11 2022-04-11 Hr Recruiter 2, Adc Lab [facility] 1.2.840.114 [id number] Univers 08:15:00 08:30:00 Visit Lucinda Sanchez 350.1.13.10 ity of [facility] 4.2.7.2.686 [place] [id number] [facility] [address] [facility] 2022-04-11 2022-04-11 Outpatient Josseline SANCHEZ [facility] [id number] Univers 08:15:00 08:15:00 LUCINDA corona [facility] 2022-04-09 2022-04-09 Outpatient Josseline SANCHEZ [facility] [id number] Univers 14:45:00 15:56:36 LUCINDA corona [facility] 2022-04-09 2022-04-09 Office Daniel [facility] 1.2.419.553 [id number] Univers 14:45:00 15:56:36 Visit Lucinda URIBE 350.1.13.10 i ty of [facility] 4.2.7.2.686 [place] [phone] Me dical NAL [address] [facility] 2022-04-02 2022-04-02 Patient Louisa [facility] 1.2.840.114 [id number] Univers 00:00:00 00:00:00 Secure Msg Roque HEALTH 350.1.13.10 ity of [place]2.[place] [id number] [address] OFFICE BUILDING 2022-03-25 2022-03-25 Telephone Louisa [facility] 1.2.287.545 [id number] Univers 00:00:00 00:00:00 Roque HEALTH 350.1.13.10 it y of [place].2.[place] [id number] [address] OFFICE [facility] 2022-03-22 2022-03-22 Hr Recruiter Pcp-Lab [facility] 1.2.840.114 [id number] Univers 16:30:00 16:45:00 Visit Raz Riley PRIMARY 350.1.13.10 ity of CARE 4.2.7.2.[place] [id number] Ga dical [address] 2022-03-22 2022-03-22 Outpatient R RAZ RILEY [facility] [id number] Univers 15:00:00 16:14:54 ity of [facility] 2022-03-22 2022-03-22 Office Raz Riley [facility] 1.2.840.114 [id number] Univers 15:00:00 16:14:54 Visit PRIMARY 350.1.13.10 it y of CARE 4.2.7.2.[place] 042.5329190 Ga dical [address] 2022-03-22 2022-03-22 Letter Raz Riley [facility] 1.2.840.114 [id number] Univers 00:00:00 00:00:00 (Out) Y HEALTH 350.1.13.10 i ty of CLINICS 4.2.7.2.[place] [id number] [facility] [address] 2022-03-14 2022-03-14 Telephone Jayla [facility] 1.2.840.11 4 [id number] Univers 00:00:00 00:00:00 Evelin LUIS 350.1.13.10 it [place] P[place] [id number] [address] 2022-03-06 2022-03-06 Outpatient R EVELIN DICKERSON [facility] B [id number] Univers 15:00:00 15:44:36 TRIEVELIN MIGUEL itreinaldo [facility] 2022-03-06 2022-03-06 Office Jayla [facility] 1.2.840.114 [id number] Univers 15:00:00 15:44:36 Visit Evelin LUIS 350.1.13.10 it y of [place] 4[place]2.[place].2.[place] [id number] [address] 2022-03-06 2022-03-06 Orders Doctor CHENG 1.2.840.114 [id number] Univers 00:00:00 00:00:00 Only Unassigned, GEE 350.1.13.10 ity of [place] [facility] 4.2.7.2.686 Nadir as [id number] [place] [address] [address] 2022-02-25 2022-02-25 Patient Jayla [facility] 1.2.840.114 [id number] Univers 00:00:00 00:00:00 Secure Msg Evelin LUIS 350.1.13.10 ity of W[place].2.7.2.[place] 660.3789352 [address] 2022-02-22 2022-02-22 Outpatient R GIGI BENITEZ [facility] [id number] Univers 16:00:00 16:27:25 GIGI BENITEZy [facility] 2022-02-22 2022-02-22 Office [facility] 1.2.840.114 [id number] Univers 16:00:00 16:27:25 Visit Gigi URIBE 350.1.13.10 ity of [place].2.[place] [id number] Ga dical NAL [address] [facility] 2022-02-13 2022-02-13 Case Jayla [facility] 1.2.840.114 [id number] Univers 00:00:00 00:00:00 Management Evelin LUIS 350.1.13.10 ity of [place].2.[place] [id number] [address] 2022-02-12 2022-02-12 Outpatient R ROQUE WATTS [facility] [id number] Univers 08:30:00 09:38:36 ROQUE WATTS [facility] 2022-02-12 2022-02-12 Office [facility] 1.2.840.114 [id number] Univers 08:30:00 09:38:36 Visit Roque CARRASCO 350.1.13.10 it y of [place].2.[place] [id number] [address] OFFICE BUILDING 2022-02-12 2022-02-12 Letter Louisa [facility] 1.2.840.114 [id number] Univers 00:00:00 00:00:00 (Out) Roque CARRASCO 350.1.13.10 it y of [place] [id number] [address] OFFICE BUILDING 2022-02-11 2022-02-11 Outpatient R EVELIN DICKERSON [facility] B [id number] Univers 16:00:00 16:09:29 EVELIN DICKERSON [facility] 2022-02-11 2022-02-11 [facility] 1.2.840.114 [id number] Univers 16:00:00 16:09:29 Visit Evelin LUIS 350.1.13.10 it y of [place].2.[place] [id number] [address] 2022-02-06 2022-02-06 Outpatient R HAWA LEOS [facility] [id number] Univers 15:00:00 15:00:00 ity of [facility] 2022-02-06 2022-02-06 Outpatient R DERIC [facility] [id number] Univers 15:00:00 15:00:00 ity of [facility] 2022-02-06 2022-02-06 Outpatient R DERIC [facility] [id number] Univers 15:00:00 15:00:00 ity of [facility] 2022-02-06 2022-02-06 Outpatient R DERIC [facility] [id number] Univers 15:00:00 15:00:00 ity of [facility] 2022-02-06 2022-02-06 Outpatient R DERIC [facility] [id number] Univers 15:00:00 15:00:00 ity of [facility] 2022-02-06 2022-02-06 Outpatient R DERIC [facility] [id number] Univers 15:00:00 15:00:00 ity [facility] 2022-02-06 2022-02-06 Outpatient R DERIC [facility] [id number] Univers 15:00:00 15:00:00 ity of [facility] 2022-02-06 2022-02-06 Outpatient R DERIC [facility] [id number] Univers 15:00:00 15:00:00 ity [facility] 2022-02-05 2022-02-05 [facility] [id number] Univers 16:19:42 23:59:00 MARQUIS ity [facility] 2022-02-05 2022-02-05 [facility] 1.2.840.114 [id number] Univers 16:19:42 23:59:00 Encounter Marquis URIBE 350.1.13.10 ity of [place] 4.2.7.2.686 [facility] [id number] [facility] [address] 2022-02-05 2022-02-05 Orders Doctor ANAND 1.2.840.114 [id number] Univers 00:00:00 00:00:00 Only Unassigned, GEE 350.1.13.10 ity of [place] [facility] 4.2.7.2.686 Nadir as [id number] [place] [address] [address] 2022-01-29 2022-01-29 Outpatient R ROQUE WATTS [facility] [id number] Univers 08:30:00 16:20:53 ROQUE WATTS [facility] 2022-01-29 2022-01-29 Office Louisa [facility] 1.2.840.114 [id number] Univers 08:30:00 16:20:53 Visit Roque HEALTH 350.1.13.10 it [id number] [phone] [address] OFFICE BUILDING 2022-01-29 2022-01-29 Letter Louisa [facility] 1.2.840.114 [id number] Univers 00:00:00 00:00:00 (Out) Roque HEALTH [id number] [id number] [id number] [address] OFFICE BUILDING 2021-12-17 2021-12-17 [facility] 1.2.840.114 [id number] Univers 08:00:00 08:23:06 Visit Evelin LUIS [id number] it y of [id number] [id number] [place] [address] [address] 2021-12-17 2021-12-17 Outpatient R EVELIN DICKERSON [facility] B [id number] Univers 08:00:00 08:23:06 EVELIN DICKERSON [facility] 2021-12-17 2021-12-17 Outpatient R EVELIN DICKERSON [facility] B [id number] Univers 08:00:00 08:00:00 EVELIN DICKERSON [facility] 2021-12-17 2021-12-17 Outpatient R EVELIN DICKERSON [facility] B [id number] Univers 08:00:00 08:00:00 EVELIN DICKERSON [facility] 2021-12-17 2021-12-17 [facility] 12.840.114 [id number] Univers 00:00:00 00:00:00 (Out) Evelin LUIS [id number] it y [place] [id number] [place] [address] [address] 2021-12-14 2021-12-14 Telephone [facility] 1.2.840.114 [id number] Univers 00:00:00 00:00:00 Brandon URIBE [id number] i ty [facility] [id number] [id number] [address] 2021-12-13 2021-12-13 Telephone [facility] 1.2.840.114 [id number] Univers 00:00:00 00:00:00 Brandon URIBE [id number] i ty [place] [phone] [address] 2021-12-12 2021-12-12 Telephone [facility] [id number] Univers 00:00:00 00:00:00 [facility] [id number] [id number] [phone] [address] OFFICE BUILDING 2021-12-11 2021-12-11 [facility] [id number] Univers 15:40:00 17:12:40 BRANDON corona [facility] 2021-12-11 2021-12-11 [facility] 1.2.840.114 [id number] Univers 15:40:00 17:12:40 Visit Brandon URIBE [id number] i ty of [facility] 4.2.7.2.[place] [phone] [address] 2021-12-11 2021-12-11 [facility] [id number] Univers 15:40:00 17:12:40 BRANDON corona [facility] 2021-12-11 2021-12-11 Outpatient R OLGA [facility] [id number] Univers 15:40:00 15:40:00 BRANDON itreinaldo [facility] 2021-12-11 2021-12-11 Telephone Bright [facility] [id number] Univers 00:00:00 00:00:00 Rafaela Taylor [place] 350.1.13.10 ity of [facility] 4[place] [phone] [address] 2021-11-16 2021-11-16 Letter Olamide Palm 1.2.840.114 [id number] Univers 00:00:00 00:00:00 (Out) GEE 350.1.13.10 it y of [facility] 4.2.7.2.686 Nadir as [id number] [address] 2021-11-15 2021-11-15 Laboratory Only, Ang Db Test [facility] 1.2.8 40.114 [id number] Univers 12:30:00 12:45:00 Only Maurisio [employer] 350.1.13.10 ity of [place] 4.2.7.2.686 Nadir as LEILANI?BLEA [phone] [address] MEDICAL OFFICE [facility] 2021-11-15 2021-11-15 Outpatient R MAURISIO [facility] [id number] Univers 12:30:00 12:36:59 LESTER ity [facility] [place] [facility] 2021-11-07 2021-11-07 Telephone [facility] 1.2.840.114 [id number] Univers 00:00:00 00:00:00 RanAdsame HEALTH 350.1.13.10 it y of [place] 4.2.7.2.686 Nadir as LEILANI?BLEA [phone] [address] MEDICAL OFFICE [facility] 2021-11-06 2021-11-06 Urgent Caitlyn [facility] 1.2.840.114 [id number] Univers 18:20:00 18:40:00 Care Rania HEALTH 350.1.13.10 it y of [place] 4.2.7.2.686 Nadir as LEILANI?BLEA [phone] Ga carlos [address] MEDICAL OFFICE BUILDING 2021-11-06 2021-11-06 Outpatient Josseline CAITLYN [facility] [id number] Univers 18:20:00 18:24:10 STANLEY corona [facility] 2021-11-06 2021-11-06 Outpatient Josseline CAITLYN [facility] [id number] Univers 18:20:00 18:20:00 STANLEY hairreinaldo [facility] 2021-10-31 2021-10-31 Telephone Brandon Bowers [facility] 1.2.840.114 [id number] Univers 00:00:00 00:00:00 [facility] 350.1.13.10 it y of [place] 4.2.7.2.686 [place] [phone] [address] ([facility]) 2021-10-31 2021-10-31 Letter Brandon Bowers [facility] 1.2.840.114 [id number] Univers 00:00:00 00:00:00 (Out) [facility] 350.1.13.10 it y of [place] 4.2.7.2.686 [place] mijares [place] [phone] [address] ([facility]) 2021-10-26 2021-10-26 Outpatient Josseline SOSA [facility] [id number] Univers 08:00:00 23:59:00 ANNABELLA corona [facility] 2021-10-26 2021-10-26 Outpatient Josseline SOSA [facility] [id number] Univers 08:00:00 23:59:00 ANNABELLA corona [facility] 2021-10-26 2021-10-26 [facility] 1.2.840.1 14 [id number] Univers 07:31:23 23:59:00 Encounter Brandon Bowers [facility] 350.1.13. 10 ity of [place] 4.2.7.2.686 Bhanu Palomares [place] [phone] [address] ([facility]) 2021-10-26 2021-10-26 Outpatient [facility] [id number] Univers 08:00:00 08:00:00 ANNABELLA corona [facility] 2021-10-09 2021-10-09 Outpatient R RQOUE WATTS [facility] [id number] Univers 09:30:00 10:24:14 ROQUE WATTS [facility] 2021-10-09 2021-10-09 Office [facility] 1.2.840.114 [id number] Univers 09:30:00 10:24:14 Visit Roque [facility] 350.1.13.10 it y of [place] 4.2.7.2.686 [place] [phone] [address] OFFICE BUILDING 2021-10-05 2021-10-05 Outpatient R BRIGHT [facility] [id number] Univers 15:30:00 17:06:18 RAFAELA corona [facility] 2021-10-05 2021-10-05 [facility] 1.2.840.114 [id number] Univers 15:30:00 17:06:18 Visit Rafaela Taylor RONY 350.1.13.10 ity of [facility] 4.2.7.2.686 [place] [phone] Ga dical NAL [address] [facility] 2021-10-05 2021-10-05 Outpatient R BRIGHT [facility] [id number] Univers 15:30:00 17:06:18 RAFAELA corona [facility] 2021-09-13 2021-09-13 Hr Recruiter 2, Adc Lab [facility] 1.2.840.114 [id number] Univers 13:45:00 14:00:00 Visit Rafaela Novoa 350.1.13.10 ity of [facility] 4.2.7.2.686 [place] [phone] Ga dical NAL [address] [facility] 2021-09-13 2021-09-13 Outpatient R OLGA [facility] [id number] Univers 10:00:00 11:20:39 BRANDON corona [facility] 2021-09-13 2021-09-13 Office Olga [facility] 1.2.840.114 [id number] Univers 10:00:00 11:20:39 Visit Brandon URIBE 350.1.13.10 i ty of [facility] 4.2.7.2.686 [place] [phone] Ga dical NAL 044 [facility] 2021-09-13 2021-09-13 Outpatient R BRIGHT [facility] [id number] Univers 09:00:00 09:18:09 RAFAELA ity of [facility] 2021-09-13 2021-09-13 Office [facility] 1.2.840.114 [id number] Univers 09:00:00 09:18:09 Visit Rafaela URIBE 350.1.13.10 ity of [facility] 4.2.7.2.686 [place] [phone] Ga dical NAL 134 [facility] 2021-09-11 2021-09-11 [facility] 1.2.304.162 [id number] Univers 00:00:00 00:00:00 Roque [facility] 350.1.13.10 it y of [place] 4.2.7.2.686 [place] [phone] [facility] [address] OFFICE BUILDING 2021-09-06 2021-09-06 Hospital [facility] 1.2.840.114 [id number] Univers 10:06:24 23:59:00 Encounter Roque URIBE 350.1.13.10 ity of [facility] 4.2.7.2.686 [place] [phone] [facility] [address] 2021-09-06 2021-09-06 Outpatient R ROQUE WATTS [facility] [id number] Univers 10:06:23 23:59:00 ROQUE WATTS of [facility] 2021-09-06 2021-09-06 Orders Doctor CHENG 1.2.840.114 [id number] Univers 00:00:00 00:00:00 Only Unassigned, GEE 350.1.13.10 ity of [place] [facility] 4.2.7.2.686 Nadir as [phone] [facility] [address] 2021-08-23 2021-08-23 Surgery [facility] 1.2.840.114 [id number] Univers 10:30:00 19:54:00 Roque CARRASCO 350.1.13.10 it y of [place] [phone] [address] ([facility]) 2021-08-23 2021-08-23 Outpatient R ROQUE WATTS [facility] S[facility] [id number] Univers 08:10:00 15:30:00 ROQUE WATTS [facility] 2021-08-23 2021-08-23 Hospital Louisa [facility] 1.2.840.114 [id number] Univers 08:10:00 15:30:00 Encounter Roque CARRASCO 350.1.13.10 ity of [place] [phone] [address] ([facility]) 2021-08-23 2021-08-23 Outpatient R ROQUE WATTS [facility] [id number] Univers 08:10:00 08:10:00 ROQUE WATTS [facility] 2021-08-23 2021-08-23 Orders Doctor CHENG 1.2.840.114 [id number] Univers 00:00:00 00:00:00 Only Unassigned, GEE 350.1.13.10 ity of [place] [facility] 4.2.7.2.686 Nadir as [phone] [place] [address] [address] 2021-08-22 2021-08-22 Laboratory Only, [facility] Main Test [facility] 1.2 .840.114 [id number] Univers 11:30:00 11:45:00 Only Roque Watts 350.1.13.10 ity of [place].2.[place] [phone] [facility] [address] ([facility]) 2021-08-22 2021-08-22 Outpatient R ROQUE WATTS [facility] [id number] Univers 11:30:00 11:30:00 ROQUE WATTS [facility] 2021-08-22 2021-08-22 Outpatient R ROQUE WATTS [facility] [id number] Univers 11:30:00 11:30:00 ROQUE WATTS [facility] 2021-08-21 2021-08-21 Pre-Anesth Call, [facility] 1.2.840.114 [id number] Univers 07:20:00 07:25:00 [facility] Phone HEALTH 350.1.13.10 ity of Evaluation [place] 4.2.7.2.686 T rodriguez [place] [phone] [facility] [address] ([facility]) 2021-08-20 2021-08-20 Telephone [facility] 1.2.840.114 [id number] Univers 00:00:00 00:00:00 Brandon URIBE 350.1.13.10 i ty of [place].2.7.2.[place] [phone] Ga dical NAL 044 [facility] 2021-08-20 2021-08-20 Transition TANMAY [place] 1.2.840.114 [id number] Univers 00:00:00 00:00:00 of Care Yolanda OSBORNE 350.1.13.10 i ty of [place].2.7.2.686 [place] [id number] [facility] [address] 2021-08-20 2021-08-20 Telephone [facility] 1.2.840.114 [id number] Univers 00:00:00 00:00:00 Brandon URIBE 350.1.13.10 i ty of [facility] 4.2.7.2.686 [place] [phone] Ga dical NAL 044 [facility] 2021-08-14 2021-08-18 Inpatient U JOHNATHAN [facility] [id number] Univers 08:45:00 19:11:00 ADIN corona of [facility] 2021-08-14 2021-08-18 Hospital Fercho Mercado 1.2.840.1 14 [id number] Univers 08:45:00 19:11:00 Encounter Adin Mann 350.1.13.10 ity of [facility] 4.2.7.2.686 Nadir as [phone] [facility] [address] [place] 2021-08-14 2021-08-14 Outpatient R OLGA [facility] [id number] Univers 13:40:00 13:40:00 BRANDON ity of [facility] 2021-08-14 2021-08-14 Emergency X KATHY, [facility] ERT [id number] Univers 04:44:00 07:48:00 HEBERT ity of [facility] 2021-08-14 2021-08-14 Emergency Ackerman, 1.2.840.6 [id number] Univers 04:44:00 07:48:00 Hebert 09242.1.1 ity of 3.104.2.7 [place] .3.999174 Medica l .[address] [place] 2021-08-14 2021-08-14 Travel 1.2.840.1 1.2.602.454 [id number] Univers 00:00:00 00:00:00 45971.1.1 350.1.13.10 ity of 3.104.2.7 4.[place].7.3.698 [place] .3.088370 084.8 Medica l .[address] [place] 2021-08-13 2021-08-13 Emergency EM Bonifacio, HCAWU SHAHRIAR [id number] [facility] 14:01:00 16:40:00 Ivan 38 [facility] 2021-08-13 2021-08-13 Emergency EM Bonifacio, HCAWU HCAWU [id number] [facility] 14:01:00 16:40:00 Ivan 555804 [facility] 2021-08-13 2021-08-13 Emergency EM Cast, HCAPM HCAPM [id number] [facility] 09:13:00 13:12:00 Iesha [id number] [facility] 2021-08-13 2021-08-13 Emergency EM Cast, HCAPM SHAHRIAR [id number] [facility] 09:13:00 13:12:00 Iesha 21 [facility] 2021-08-11 2021-08-11 Refill [place], 1.2.840.0 [id number] Univers 00:00:00 00:00:00 Brandon 02768.1.1 ity of 3.104.2.7 [place] .3.145230 Medica l .[address] 2021-07-30 2021-07-30 Refill [place], 1.2.840.8 [id number] Univers 00:00:00 00:00:00 Brandon 97142.1.1 ity of 3.104.2.7 [place] .3.198570 Medica l .[address] [place] 2021-07-23 2021-07-23 Hr Recruiter Rafaela Novoa [place] 1.2.840.1 [id number] Univers 16:15:00 16:30:00 Visit 2, Adc Lab 84605.1.1 i ty of 3.104.2.7 [place] .3.134795 Medica l .[address] [place] [address] 2021-07-23 2021-07-23 Outpatient [facility] [id number] Univers 16:15:00 16:15:00 RAFAELA cj [facility] 2021-07-12 2021-07-12 [facility] [id number] [id number] Univers 07:58:44 23:59:00 BRANDON cj [facility] 2021-07-12 2021-07-12 [facility], 1.2.840.5 [id number] Univers 07:58:44 23:59:00 Encounter Brandon 40657.1.1 it y of 3.104.2.7 [place] .3.394601 Medica l .[address] [place] [address] 2021-07-11 2021-07-11 Refill Eli, 1.2.840.4 [id number] Univers 00:00:00 00:00:00 Gigi 72703.1.1 it y of 3.104.2.7 [place] .3.571114 Medica l .[address] [place] 2021-07-06 2021-07-06 Outpatient [facility] [id number] Univers 08:40:00 10:05:01 BRANDON cj [facility] 2021-07-06 2021-07-06 Telemedici [facility], 1.2.840.6 [id number] Univers 08:40:00 10:05:01 ne Visit Brandon 59122.1.1 ity of 3.104.2.7 [place] .3.687386 Medica l .[address] [place] 2021-07-06 2021-07-06 Outpatient R [facility] [id number] [id number] Univers 08:40:00 08:40:00 BRANDON ity of [facility] 2021-07-06 2021-07-06 Travel 1.2.840.1 1.2.333.921 [id number] Univers 00:00:00 00:00:00 87677.1.1 350.1.13.10 ity of 3.104.2.7 4.2.7.3.698 [place] .3.813071 084.8 Medica l .[address] [place] 2021-06-29 2021-06-29 [facility] 1.2.840.114 [id number] Univers 16:40:55 23:59:00 Encounter Brandon URIBE 350.1.13.10 ity of [place] 4.2.7.2.686 [facility] [phone] [address] 2021-06-29 2021-06-29 [facility], 1.2.840.7 [id number] Univers 16:40:55 23:59:00 Encounter Brandon 47158.1.1 it y of 3.104.2.7 [place] .3.154319 Medica l .[address] [place] 2021-06-29 2021-06-29 [facility] 1.2.840.114 [id number] Univers 16:40:18 23:59:00 Encounter Brandon URIBE 350.1.13.10 ity of [facility] 4.2.7.2.686 [facility] [phone] [address] 2021-06-29 2021-06-29 [facility], 1.2.840.4 [id number] Univers 16:40:18 23:59:00 Encounter Brnadon 90281.1.1 it y of 3.104.2.7 [place] .3.218781 Medica l .[address] [place] 2021-06-29 2021-06-29 Outpatient R GIGI BENITEZ [facility] [id number] Univers 15:30:00 16:18:07 ELI, GIGI ity of [facility] 2021-06-29 2021-06-29 Office Eli, 1.2.840.6 [id number] Univers 15:30:00 16:18:07 Visit Gigi 80816.1.1 it y of 3.104.2.7 [place] .3.541579 Medica l .[address] [place] 2021-06-29 2021-06-29 Orders Doctor CHENG 1.2.840.114 [id number] Univers 00:00:00 00:00:00 Only Unassigned, GEE 350.1.13.10 ity of [place] [facility] 4.2.7.2.686 Nadir as [id number] [address] 2021-06-29 2021-06-29 Travel 1.2.840.1 1.2.005.914 [id number] Univers 00:00:00 00:00:00 01015.1.1 350.1.13.10 ity of 3.104.2.7 4.2.7.3.698 [place] .3.470836 084.8 Medica l .[address] [place] 2021-06-29 2021-06-29 Orders Doctor 1.2.840.4 [id number] Univers 00:00:00 00:00:00 Only Unassigned, 29618.1.1 ity of [place] 3.104.2.7 [place] .3.215893 Medica l .[address] [place] 2021-06-26 2021-06-26 Outpatient R GIGI BENITEZ [facility] [id number] Univers 08:00:00 08:00:00 GIGI BENITEZ ity of [facility] 2021-06-19 2021-06-19 Telephone Adum, [facility] 1.2.786.378 [id number] Univers 00:00:00 00:00:00 Rafaela URIBE 350.1.13.10 ity of [place].2.[place] [phone] Ga dical NAL 134 [facility] 2021-06-19 2021-06-19 Case Adum, [facility] 1.2.840.114 [id number] Univers 00:00:00 00:00:00 Management Rafaela URIBE 350.1.13.10 ity of [facility] 4.2.7.2.686 [place] [phone] Ga dical NAL [address] [place] [address] 2021-06-19 2021-06-19 Telephone Adum, 1.2.840.2 [id number] Univers 00:00:00 00:00:00 Rafaela L 96882.1.1 ity of 3.104.2.7 [place] .3.673925 Medica l .[address] [place] 2021-06-19 2021-06-19 Case Adum, 1.2.840.6 [id number] Univers 00:00:00 00:00:00 Management Rafaela Taylor 62523.1.1 ity of 3.104.2.7 [place] .3.516214 Medica l .[address] [place] 2021-06-15 2021-06-15 Office Adum, [facility] 1.2.840.114 [id number] Univers 14:00:00 15:10:42 Visit Rafaela URIBE 350.1.13.10 ity of [facility] 4.2.7.2.686 [place] [phone] Ga dical NAL [address] [place] [address] 2021-06-15 2021-06-15 Outpatient R ADUM, [facility] [id number] Univers 14:00:00 15:10:42 RAFAELA ity of [facility] [place] [facility] 2021-06-15 2021-06-15 Office Adum, 1.2.840.0 [id number] Univers 14:00:00 15:10:42 Visit Rafaela Taylor 71666.1.1 ity of 3.104.2.7 [place] .3.376055 Medica l .[address] [place] 2021-06-15 2021-06-15 Outpatient R ADUM, [facility] [id number] Univers 14:00:00 14:00:00 RAFAELA ity of [facility] [place] [facility] 2021-06-15 2021-06-15 Travel 1.2.840.1 1.2.095.910 [id number] [id number] Univers 00:00:00 00:00:00 17470.1.1 350.1.13.10 ity of 3.104.2.7 4.2.7.3.698 [place] .3.816189 084.8 Medica l .[address] [place] 2021-04-19 2021-04-19 Outpatient R OLGA [facility] [id number] Univers 16:00:00 16:00:00 BRANDON itreinaldo [facility] 2021-04-17 2021-04-17 Refill [facility] 1.2.840.114 [id number] Univers 00:00:00 00:00:00 Brandon URIBE 350.1.13.10 i ty of [place] 4.2.7.2.686 [place] [phone] Ga dical NAL 044 [facility] 2021-04-11 2021-04-11 Outpatient R BRIGHT [facility] [id number] Univers 10:00:00 10:33:45 RAFAELA corona [facility] 2021-04-11 2021-04-11 Initial [facility] 1.2.840.114 [id number] Univers 10:00:00 10:33:45 Rafaela URIBE 350.1.13.10 ity of [place] 4.2.7.2.686 [place] [phone] Me dical NAL 134 [facility] 2021-04-11 2021-04-11 Imm/Inj Nurse, Adc Pob Immunization [facility] 1.2.840.114 [id number] Univers 08:30:00 08:35:13 Visit Naeem Slater 350.1.13 .10 ity of [place] 4.2.7.2.[place] [phone] Me dical NAL 421 [facility] 2021-04-11 2021-04-11 Out[facility] [id number] Univers 08:30:00 08:30:00 NAEEM corona [facility] 2021-04-11 2021-04-11 Letter Addanae, [facility] 1.2.840.114 [id number] Univers 00:00:00 00:00:00 (Out) Rafaela URIBE 350.1.13.10 ity of [facility] 4.2.7.2.686 [place] [phone] Ga dical NAL 134 [facility] 2021-04-11 2021-04-11 Telephone [facility] 1.2.840.114 [id number] Univers 00:00:00 00:00:00 Brandon URIBE 350.1.13.10 i ty of [place] 4.2.7.2.686 [place] [phone] Ga dical NAL 044 [facility] 2021-03-14 2021-03-14 Outpatient R [facility] [id number] [id number] Univers 16:20:00 16:53:25 [facility] laxmireinaldo [facility] 2021-03-14 2021-03-14 Outpatient R [facility] 1036 [id number] Univers 16:20:00 16:53:[address] [facility] 2021-03-14 2021-03-14 Office [facility] 1.2.840.114 [id number] Univers 16:11:43 16:53:25 Visit Brandon URIBE 350.1.13.10 i ty of [place] 4.2.7.2.[place] [phone] Ga dical NAL 044 [facility] 2021-03-14 2021-03-14 Imm/Inj Nurse, Adc Pob Immunization [facility] 1.2.840.114 [id number] Univers 15:40:07 15:40:16 Visit Naeem Slater 350.1.13 .10 ity of [facility] 4.2.7.2.686 [place] [phone] Ga dical NAL 421 [facility] 2021-03-14 2021-03-14 Orders Doctor ANAND 1.2.840.114 [id number] Univers 00:00:00 00:00:00 Only Unassigned, GEE 350.1.13.10 ity of [place] [facility] 4.2.7.2.686 Nadir as [phone] [facility] [address] [place] 2021-03-09 2021-03-09 Emergency X Perry LANCE [facility] E[facility] [id number] Univers 17:00:00 19:32:00 ity of [facility] [place] [facility] 2021-03-09 2021-03-09 Emergency Perry Lance [facility] 1.2.840.114 [id number] Univers 17:00:00 19:32:00 Altagracia URIBE 350.1.13.10 i ty of [place].2.7.2.[place] [phone] [facility] [address] [place] 2021-03-09 2021-03-09 Nurse Nurse, Rodriguez [facility] 1.2.840.114 [id number] Univers 16:23:00 16:43:00 Visit Maurisio [facility] 350.1.13.10 ity of [place] 4.2.7.2.686 Nadir as LEILANI?BLEA [phone] Ga dicmelanie SANCHEZEY [address] [place] MEDICAL OFFICE BUILDING 2021-03-09 2021-03-09 Outpatient R MAURISIO [facility] [id number] Univers 16:30:00 16:30:00 LESTER [facility] [place] 2021-03-09 2021-03-09 Telephone Olga [facility] 1.2.840.114 [id number] Univers 00:00:00 00:00:00 Brandon URIBE 350.1.13.10 i ty of [place] 4.2.7.2.686 [place] [phone] Ga dicmelanie NAL [address] BUILDING 2021-03-09 2021-03-09 Orders Doctor CHENG 1.2.840.114 [id number] Univers 00:00:00 00:00:00 Only Unassigned, GEE 350.1.13.10 ity of [place] [facility] 4.2.7.2.686 Nadir as [phone] [facility] [address] [place] 2021-03-08 2021-03-08 Outpatient R BRYON [facility] [id number] Univers 08:30:00 08:30:00 [facility] 2021-02-16 2021-02-16 Outpatient R [facility] [id number] Univers 15:00:00 15:00:00 ity of [facility] 2021-02-14 2021-02-14 Telephone Olamide Palm 1.2.840.114 [id number] Univers 00:00:00 00:00:00 GEE 350.1.13.10 it y of [facility] 4.2.7.2.686 Nadir as [phone] [address] 2021-02-13 2021-02-13 [facility] [id number] Univers 16:20:00 16:40:25 [facility] ity [facility] 2021-02-13 2021-02-13 [facility] 1.2.840.114 [id number] Univers 16:14:48 16:34:48 Care [facility] 350.1.13.10 it y of [place] 4.2.7.2.686 Nadir as LEILANI?BLEA [phone] [address] MEDICAL OFFICE BUILDING 2021-02-12 2021-02-12 [facility]phone [facility] 1.2.840.114 [id number] Univers 00:00:00 00:00:00 Brandon URIBE 350.1.13.10 i ty [place] [phone] [address] 2021-02-11 2021-02-11 Refill [facility] 1.2.840.114 [id number] Univers 00:00:00 00:00:00 Brandon URIBE 350.1.13.10 i ty [place] [phone] [address] 2021-02-10 2021-02-10 [facility] 1.2.840.114 [id number] Univers 00:00:00 00:00:00 Brandon URIBE 350.1.13.10 i ty [place] [phone] Ga dical NAL [address] [facility] 2021-02-05 2021-02-05 Outpatient R HAWA LEOS [facility] [id number] Univers 08:00:00 08:50:34 ity of [facility] 2021-02-05 2021-02-05 Office Hawa Leos [facility] 1.2.918.091 [id number] Univers 07:57:26 08:50:34 Visit Jevon URIBE 350.1.13.10 i ty of [place] [phone] Ga dical NAL [address] BUILDING 2021-02-05 2021-02-05 Letter Hawa Leos [facility] 1.2.167.141 [id number] Univers 00:00:00 00:00:00 (Out) Jevon URIBE 350.1.13.10 i ty [place] [phone] [facility] [address] [facility] 2021-01-23 2021-01-23 Patient Cindy [facility] 1.2.840.114 [id number] Univers 00:00:00 00:00:00 Secure Ms [employer] 350.1.13.10 [place] [phone] [address] OFFICE BUILDING 2021-01-16 2021-01-16 Hr Recruiter Pily, [place] [facility] 1.2.8 40.114 [id number] Univers 17:10:30 17:25:30 Visit Brandon Espinoza 350.1.13.10 [place] [phone] [facility] [address] Building 2021-01-16 2021-01-16 Outpatient R OLGA [facility] [id number] Univers 17:15:00 17:15:00 BRANDON corona [facility] 2021-01-16 2021-01-16 Orders Doctor ANAND 1.2.840.114 [id number] Univers 00:00:00 00:00:00 Only Unassigned, GEE 350.1.13.10 it[facility] 4.2.7.2.686 Nadir as [phone] [address] [address] 2021-01-10 2021-01-10 [facility] 1.2.840.114 [id number] Univers 15:44:13 17:57:44 Visit Brandon Uribe 350.1.13.10 i ty of [place] [phone] Ga dical nal [address] [facility] 2021-01-10 2021-01-10 [facility] [id number] Univers 16:00:00 16:00:00 BRANDON corona [facility] 2021-01-10 2021-01-10 [facility] 1.2.840.114 [id number] Univers 00:00:00 00:00:00 Brandon Uribe 350.1.13.10 i [place] of [place] [phone] Ga dic[address] 2020-12-01 2020-12-01 Nurse Nurse, Keon [facility] 1.2.840.114 [id number] Univers 14:42:41 15:19:28 Visit [facility] 350.1.13.10 it[place] [phone] [address] Office Building 2020-12-01 2020-12-01 Outpatient R CINDY [facility] [id number] Univers 15:00:00 15:00:00 HEMAMALINI ity [facility] 2020-11-29 2020-11-29 Outpatient R CINDY [facility] [id number] Univers 15:30:00 15:30:00 HEMAMALINI ity [facility] 2020-11-24 2020-11-24 Telephone [facility] 1.2.840.114 [id number] Univers 00:00:00 00:00:00 Brandon Uribe 350.1.13.10 i ty of [place] [phone] Ga dical nal 044 [facility] 2020-11-02 2020-11-02 [facility] 1.2.840.114 [id number] Univers 14:36:42 15:30:58 Visit Rafaela Uribe 350.1.13.10 ity of [place] [phone] Ga dical nal 134 [facility] 2020-11-02 2020-11-02 Outpatient R BRIGHT, [facility] [id number] Univers 14:45:00 14:45:00 RAFAELA corona [facility] 2020-10-16 2020-10-16 [facility] 1.2.840.114 [id number] Univers 16:53:52 23:59:00 Encounter Brandon BUSBY 350.1.13.10 ity of [facility] 4.2.7.2.686 [place] C[place] AT [phone] Ga carlos PRESTON 804 [facility] 2020-10-16 2020-10-16 Outpatient [facility] [id number] Univers 00:00:00 00:00:00 BRANDON corona [facility] 2020-10-10 2020-10-10 Urgent Kailey Angulo [facility] 1.2.840 .114 [id number] Univers 16:51:59 17:11:59 Care Carole Dsouza [facility] 350.1.13.10 itAdolfo 4.2.7.2.686 Nadir as Professio [phone] Ga dicsaint [facility] [address] [place] Office [facility] One 2020-10-10 2020-10-10 Outpatient R [facility] [id number] Univers 17:00:00 17:00:00 CAROLE corona [facility] 2020-10-04 2020-10-04 Telemedici [facility] 1.2.840.114 [id number] Univers 15:10:36 15:20:13 ne Visit Brandon Uribe 350.1.13.10 [place] [phone] [address] 2020-10-04 2020-10-04 Outpatient R OLGA [facility] [id number] Univers 08:20:00 08:20:00 PETER ity [facility] 2020-10-02 2020-10-02 Urgent Provider, [facility] 1.2.840.114 [id number] Univers 09:26:52 10:10:11 Care Unknown, [facility] 350.1.13.10 ity of [place] 4.2.7.2.686 Nadir as Professio [phone] [address] One 2020-10-02 2020-10-02 Outpatient R UNKNOWN, [facility] [id number] Univers 09:20:00 09:20:00 ATTENDING ity [facility] 2020-10-02 2020-10-02 Refill [facility] 1.2.840.114 [id number] Univers 00:00:00 00:00:00 Brandon Uribe 350.1.13.10 i [place] of [place].2.[place] [phone] [address] 2020-10-02 2020-10-02 Telephone Aly [facility] 1.2.492.236 [id number] Univers 00:00:00 00:00:00 [facility] 350.1.13.10 it y of [place] 4.2.7.2.686 Nadir as Professio [phone] [address] Office [facility] 2020-09-28 2020-09-28 Telephone [facility] 1.2.840.114 [id number] Univers 00:00:00 00:00:00 Brandon Uribe 350.1.13.10 i ty of [place] [phone] [address] 2020-09-20 2020-09-20 Orders Doctor ANAND 1.2.840.114 [id number] Univers 00:00:00 00:00:00 Only Unassigned, GEE 350.1.13.10 ity of [place] [facility] 4.2.7.2.686 Nadir as [phone] [address] 2020-09-13 2020-09-13 Nurse Nurse, Keon [facility] 1.2.840.114 [id number] Univers 15:20:32 15:48:46 Visit [facility]idel [facility] Cebix 350.1.13.10 it[place] of [place].2.[place] [phone] [address] Office [facility] 2020-09-13 2020-09-13 Outpatient [facility] [id number] Univers 15:30:00 15:30:00 [facility] itreinaldo [facility] 2020-09-11 2020-09-11 Telephone [facility] 1.2.489.811 [id number] Univers 00:00:00 00:00:00 [facility] Cebix 350.1.13.10 [place] [phone] [address] Office [facility] 2020-09-07 2020-09-07 Case [facility] 1.2.840.114 [id number] Univers 00:00:00 00:00:00 Management Rafaela Uribe 350.1.13.10 it[place] of [place] [phone] [address] 2020-09-05 2020-09-05 Office [facility] 1.2.840.114 [id number] Univers 15:24:00 16:12:18 Visit Rafaela Uribe 350.1.13.10 ity of [place].2.[place] [phone] [address] 2020-09-05 2020-09-05 Outpatient [facility] [id number] Univers 15:30:00 15:30:00 RAFAELA corona [facility] 2020-08-31 2020-08-31 Outpatient R OLGA [facility] [id number] Univers 16:15:13 23:59:00 BRANDON hairy [facility] 2020-08-31 2020-08-31 [facility] 1.2.840.114 [id number] Univers 16:15:13 23:59:00 Encounter Brandon Carrasco 350.1.13.10 [place] [phone] [facility] [address] ([facility]) 2020-08-31 2020-08-31 Outpatient R OLGA [facility] [id number] Univers 16:15:13 23:59:00 BRANDON hairreinaldo [facility] 2020-08-31 2020-08-31 Outpatient R [facility] [id number] Univers 16:30:00 16:30:00 BRANDON hairreinaldo [facility] 2020-08-29 2020-08-29 Orders Doctor CHENG 1.2.840.114 [id number] Univers 00:00:00 00:00:00 Only Unassigned, GEE 350.1.13.10 ity of [place] [facility] 4.2.7.2.686 Nadir as [phone] [facility] [address] 2020-08-28 2020-08-28 Office Cindy [facility] 1.2.840.114 [id number] Univers 15:32:34 16:42:09 Visit [facility] 350.1.13.10 [place] of [place].2.[place] [phone] [place] [address] [address] Office Building 2020-08-28 2020-08-28 Outpatient R CINDY [facility] [id number] Univers 15:45:00 15:45:00 HEMWALNUT GROVELINI ity of [facility] 2020-08-23 2020-08-23 [facility] 1.2.840.114 [id number] Univers 09:35:14 23:59:00 Encounter Brandon Uribe 350.1.13.10 ity of [place] 4.2.7.2.686 [place] [phone] [facility] [address] [place] 2020-08-23 2020-08-23 Office Olga [facility] 1.2.840.114 [id number] Univers 16:09:29 17:04:25 Visit Brandon Uribe 350.1.13.10 i ty of [place].2.[place] [phone] Ga dical [facility] 044 [facility] 2020-08-23 2020-08-23 Outpatient R OLGA [facility] [id number] Univers 16:20:00 16:20:00 BRANDON corona [facility] 2020-08-23 2020-08-23 Hr Recruiter Pily, Adc Lab Main [facility] 1.2.8 40.114 [id number] Univers 09:33:48 09:48:48 Visit Brandon Espinoza 350.1.13.10 ity of [place].2.[place] [phone] [facility] 353 [facility] 2020-08-23 2020-08-23 Orders Doctor CHENG 1.2.840.114 [id number] Univers 00:00:00 00:00:00 Only Unassigned, GEE 350.1.13.10 ity of [place] [facility] 4.2.7.2.686 Nadir as [phone] [address] 2020-08-18 2020-08-18 Telemedici [facility] 1.2.840.114 [id number] Univers 08:37:39 10:47:21 ne Visit Brandon Uribe 350.1.13.10 ity of [place] 4.2.[place].2.[place] [phone] Ga dical [facility] 044 [facility] 2020-08-18 2020-08-18 Outpatient R OLGA [facility] [id number] Univers 09:15:00 09:15:00 BRANDON corona [facility] 2020-08-18 2020-08-18 Telephone Olga [facility] 1.2.840.114 [id number] Univers 00:00:00 00:00:00 Brandon [facility] 350.1.13.10 it y of [place] 4.2.7.2.686 Nadir as Professio [phone] [address] Office Building One 2020-08-03 2020-08-03 Hospital [facility] 1.2.840.114 [id number] Univers 16:29:19 23:59:00 Encounter Brandon Carrasco 350.1.13.10 [place] [phone] [facility] [address] ([facility]) 2020-08-03 2020-08-03 Outpatient R [facility] [id number] Univers 16:30:00 16:30:00 BRANDON reinaldo [facility] 2020-08-01 2020-08-01 Outpatient [facility] [id number] Univers 08:00:00 08:00:00 HEMAMALINI [facility] [place] 2020-07-31 2020-07-31 Outpatient R [facility] [id number] Univers 13:45:00 13:45:00 BRANDON reinaldo [facility] 2020-07-31 2020-07-31 Orders Doctor CHENG 1.2.840.114 [id number] Univers 00:00:00 00:00:00 Only Unassigned, GEE 350.1.13.10 ity of [place] [facility] 4.2.7.2.686 Nadir as [phone] [facility] [address] [place] 2020-07-28 2020-07-28 Patient Doctor CHENG 1.2.840.114 [id number] Univers 00:00:00 00:00:00 Secure Msg Unassigned, GEE 350.1.13.10 ity of [place] [facility] 4.2.7.2.686 Nadir as [phone] [facility] [address] [place] 2020-07-28 2020-07-28 Letter [facility] 1.2.840.114 [id number] Univers 00:00:00 00:00:00 (Out) Brandon Uribe 350.1.13.10 i ty of [place] [phone] Ga dicct nal 044 [facility] 2020-07-27 2020-07-27 Office [facility] 1.2.840.114 [id number] Univers 14:32:57 15:11:50 Visit Brandon Uribe 350.1.13.10 i ty of [place] 4.2.7.2.[place] [phone] [address] 2020-07-27 2020-07-27 Outpatient R [facility] 1032 [id number] Univers 14:40:00 14:40:00 BRANDON cj [facility] 2020-07-27 2020-07-27 Telephone [facility] 1.2.840.114 [id number] Univers 00:00:00 00:00:00 Brandon Carrasco 350.1.13.10 it y of [place] 4.2.7.2.686 Nadir as Professio [phone] [address] One 2020-07-21 2020-07-[address] [facility] 1.2.840.114 [id number] Univers 21:45:00 22:26:00 Kia Uribe 350.1.13.10 ity of [place] 4.2.7.2.686 [place] [phone] [address] 2020-07-19 2020-07-19 Outpatient [facility] [id number] Univers 15:00:00 15:00:00 BRANDON cj [facility] 2020-07-19 2020-07-19 Telemedici [facility] 1.2.840.114 [id number] Univers 12:48:04 13:03:02 ne Visit Brandon Uribe 350.1.13.10 ity of [place].2.[place] [phone] [address] 2020-07-17 2020-07-17 Telephone [facility] 1.2.840.114 [id number] Univers 00:00:00 00:00:00 Brandon Uribe 350.1.13.10 i ty of [place] 4.2.[place].2.[place] [phone] [address] 2020-07-11 2020-07-11 Office [facility] 1.2.840.114 [id number] Univers 10:25:12 11:32:03 Visit Brandon Uribe 350.1.13.10 i ty of [place] 4.2.7.2.[place] [phone] [facility] 044 [facility] 2020-07-11 2020-07-11 Office [facility] 1.2.840.114 [id number] 10:25:12 11:32:03 Visit Brandon Rony 350.1.13.10 [place] 4.2.7.2.686 Professio [phone] [address] 2020-07-11 2020-07-11 Outpatient R [facility] [id number] Univers 10:40:00 10:40:00 BRANDON corona [facility] 2020-07-11 2020-07-11 Telephone [facility] 1.2.840.114 [id number] Univers 00:00:00 00:00:00 Brandon Uribe 350.1.13.10 i ty of [place].2.[place].2.[place] [phone] [facility] 231 [facility] 2020-07-11 2020-07-11 Telephone [facility] 1.2.840.114 [id number] Univers 00:00:00 00:00:00 Brandon Uribe 350.1.13.10 i ty of [place] 4.2.7.2.[place] [phone] [facility] 044 [facility] 2020-06-27 2020-06-27 Patient Bryon [facility] 1.2.840.114 [id number] Univers 00:00:00 00:00:00 Outreach Naeem PRIMARY 350.1.13.10 i ty of [place] 4.2.7.2.686 [place] [phone] [facility] [address] [place] 2020-06-16 2020-06-16 Laboratory Only, Adc Test [facility] 1.2.840. 114 [id number] Univers 15:20:18 15:35:18 Only June Gomez Rony 350.1.13.10 ity of [place] 4.2.7.2.686 [place] [facility] [phone] [facility] [address] 2020-06-16 2020-06-16 Outpatient R AMERICO [facility] [id number] Univers 15:15:00 15:15:00 JUNE ity [facility] 2020-06-16 2020-06-16 Orders Doctor CHENG 1.2.840.114 [id number] Univers 00:00:00 00:00:00 Only Unassigned, GEE 350.1.13.10 ity of [facility] 4.2.7.2.686 Nadir as [phone] [address] 2020-06-09 2020-06-09 Laboratory Lab, [facility] 1.2. 840.114 [id number] Univers 12:58:00 13:18:00 Only Aly Deivn Carrasco 350.1.13.10 ity of [place] 4.2.7.2.686 Nadir as Professio [phone] Ga dic[address] Office Building One 2020-06-09 2020-06-09 Outpatient R [facility] [id number] Univers 13:00:00 13:00:00 ity of [facility] 2020-06-02 2020-06-02 Laboratory Lab, [facility] 1.2. 840.114 [id number] Univers 14:37:58 14:57:58 Only AlyDevin 350.1.13.10 ity of [place] 4.2.7.2.686 Nadir as Professio [phone] [address] Office Building One 2020-06-02 2020-06-02 Outpatient R ALY [facility] [id number] Univers 14:40:00 14:40:00 DEVIN ity [facility] 2020-05-29 2020-05-29 Patient [facility] .2.840.114 [id number] Univers 00:00:00 00:00:00 Secure Msg Brandon Uribe 350.1.13.10 ity of [place] 4.2.7.2.686 [place] [phone] Ga dical nal 044 [facility] 2020-05-26 2020-05-26 Hr Recruiter Pily, [facility] Lab Main [facility] 1.2.8 40.114 [id number] Univers 12:13:44 12:28:44 Visit MynordanaeJenniferRafaela [place] 350.1.13.10 ity of [place] 4.2.7.2.686 [place] [phone] Ga dical nal 353 [facility] 2020-05-26 2020-05-26 Office Ad, [facility] 1.2.840.114 [id number] Univers 11:03:54 12:04:47 Visit Rafaela Salton 350.1.13.10 ity of [place] 4.2.7.2.686 [place] [phone] Ga dical nal 134 [facility] 2020-05-26 2020-05-26 Outpatient R AD, [facility] [id number] Univers 11:00:00 11:00:00 RAFAELA itreinaldo of [facility] 2020-05-10 2020-05-10 Nurse Nurse, [facility] 1.2.840.114 [id number] Univers 15:03:58 15:25:57 Visit Brandon Espinoza 350.1.13.10 ity of [place] 4.2.7.2.686 [place] [phone] Ga dical nal 044 [facility] 2020-05-10 2020-05-10 Outpatient R OLGA [facility] 1030 [id number] Univers 15:00:00 15:00:00 BRANDON corona [facility] 2020-04-20 2020-04-20 [facility] 1.2.840.114 [id number] Univers 09:55:57 10:42:50 Visit Rafaela Salton 350.1.13.10 ity of [place] 4.2.7.2.686 [place] [phone] Ga dical nal 134 [facility] 2020-04-20 2020-04-20 Outpatient R AD, [facility] [id number] Univers 10:00:00 10:00:00 RAFAELA cj [facility] 2020-04-11 2020-04-11 Nurse Nurse, Diego Villalpando [facility] 1.2.840.114 [id number] Univers 14:49:57 15:08:52 Visit Brandon Espinoza 350.1.13.10 ity of [place] 4.2.7.2.686 [place] [phone] Ga dical nal [address] [place] [address] 2020-04-11 2020-04-11 Telemedici [facility]kylie[facility] 1.2.840.114 [id number] Univers 07:54:20 15:04:59 ne Visit Brandon Uribe 350.1.13.10 ity of [place] 4.2.7.2.686 [place] [phone] Ga dical nal [address] [place] [address] 2020-04-11 2020-04-11 Outpatient [facility] [id number] Univers 09:40:00 09:40:00 BRANDON corona [facility] 2020-03-29 2020-03-29 Office [facility] 1.2.840.114 [id number] Univers 16:15:51 16:46:19 Visit Brandon Uribe 350.1.13.10 i ty of [place] 4.2.7.2.686 [place] [phone] Ga dical nal [address] [place] [address] 2020-03-29 2020-03-29 Outpatient R [facility] [id number] Univers 16:20:00 16:20:00 BRANDON corona [facility] 2020-03-15 2020-03-15 Case Daniel [facility] 1.2.677.854 [id number] Univers 00:00:00 00:00:00 Management Lucinda Uribe 350.1.13.10 ity of [place] 4.2.7.2.686 [place] [phone] Ga dical nal 134 [facility] 2020-03-13 2020-03-13 Office Hawa Leos [facility] 1.2.593.954 [id number] Univers 14:55:56 15:44:58 Visit Jevon [place]ton 350.1.13.10 i ty of [place] 4.2.7.2.686 [place] [phone] Ga dical nal 134 [facility] 2020-03-13 2020-03-13 Outpatient R HAWA LEOS [facility] [id number] Univers 15:00:00 15:00:00 ity [facility] 2020-03-09 2020-03-09 Outpatient R MIKALANIYASYEDCHRIS [facility] [id number] Univers 11:20:00 11:20:00 PETER ity [facility] 2020-02-29 2020-02-29 Patient Hawa Leos [facility] 1.2.899.251 [id number] Univers 00:00:00 00:00:00 Secure Msg Jevon SALTON 350.1.13.10 ity of [place] 4.2.7.2.686 [place] PROFESS[place] [phone] Ga dical NAL 134 [facility] 2020-02-10 2020-02-10 Outpatient R [facility] [id number] Univers 15:00:00 15:00:00 GUS ity [facility] 2020-02-02 2020-02-02 Ancillary Farrukh Aguilar [facility] 1.2.840. 114 [id number] Univers 14:52:34 15:32:34 Visit Gus Hernandez 350.1.13.10 ity of [place] 4.2.7.2.686 [place] [phone] Ga [facility]icsaint [facility] 179 [facility] 2020-02-02 2020-02-02 Outpatient R [facility] [id number] Univers 15:00:00 15:00:00 ity of [facility] 2020-01-31 2020-01-31 Outpatient R [facility] [id number] Univers 13:00:00 13:00:00 ity [facility] 2020-01-27 2020-01-27 Hr Recruiter 2, Adc Lab [facility] 1.2.840.114 [id number] Univers 13:09:37 13:24:37 Visit Hawa Leos Jevon Uribe 350.1.13.10 ity of [place] 4.2.7.2.[place] [phone] Ga dical nal 353 [facility] 2020-01-27 2020-01-27 Outpatient R [facility] [id number] Univers 13:00:00 13:00:00 ity of [facility] 2020-01-27 2020-01-27 Nader Aguilar [facility] 1.2.840.114 [id number] Univers 00:00:00 00:00:00 Management Aixa Uribe 350.1.13.10 ity of [place].2.[place] [phone] Ga dical nal 179 [facility] 2020-01-26 2020-01-26 Office LeosHawa [facility] 1.2.142.339 [id number] Univers 13:29:54 14:33:26 Visit Jevon Uribe 350.1.13.10 i ty of [place] 4.2.7.2.686 [place] [phone] Ga dical nal 134 [facility] 2020-01-26 2020-01-26 Outpatient R HAWA LEOS [facility] [id number] Univers 13:30:00 13:30:00 ity of [facility] 2020-01-26 2020-01-26 Orders Doctor CHENG 1.2.840.114 [id number] Univers 00:00:00 00:00:00 Only Unassigned, GEE 350.1.13.10 ity of [place] [facility] 4.2.7.2.686 Nadir as [phone] [address] 2020-01-24 2020-01-24 Ancillary Sherie Brooks [facility] 1.2.840. 114 [id number] Univers 08:02:02 08:42:02 Visit Brandon Espinoza 350.1.13.10 ity of [place].2.[place] [phone] Ga dical nal 179 [facility] 2020-01-11 2020-01-11 Ancillary Donna Martinez [facility] 1.2.840. 114 [id number] Univers 08:02:50 08:42:50 Visit Gus Hernandez 350.1.13.10 ity of [place].2.[place] [phone] [facility] 179 [facility] 2020-01-11 2020-01-11 Outpatient R MARY [facility] [id number] Univers 08:00:00 08:00:00 GUS reinaldo [facility] 2020-01-04 2020-01-04 Ancillary Donna Martinez [facility] 1.2.840. 114 [id number] Univers 13:03:57 14:03:57 Visit Brandon Espinoza 350.1.13.10 ity of [place] 4.2.7.2.686 [place] [phone] [facility] 179 [facility] 2020-01-04 2020-01-04 Outpatient R [facility] [id number] [facility] 13:00:00 13:00:00 BRANDON corona [facility] 2019-12-10 2019-12-10 Patient Natanael [facility] 1.2.840.114 [id number] Univers 00:00:00 00:00:00 Outreach [facility] [id number] i ty of [place] [id number] Nadir as Professio [phone] [address] Office [facility] 2019-12-10 2019-12-10 Telephone [facility] 1.2.840.114 [id number] Univers 00:00:00 00:00:00 Brandon Uribe [id number] i [place] [phone] [address] 2019-12-09 2019-12-09 [facility] 1.2.840.114 [id number] Univers 09:01:55 14:56:42 Visit Brandon Uribe 350.1.13.10 i [id number] [phone] [address] 2019-12-09 2019-12-09 Outpatient [facility] [id number] Univers 09:00:00 09:00:00 BRANDON corona [facility] 2019-12-08 2019-12-08 Laboratory Pc, Adc Echo Room 1 - [facility] 1 .2.840.114 [id number] Univers 08:01:47 08:46:18 Only MikalaniyaBrandon espinal 350.1.13.10 ity of [place] Ghazal AmadorLuisBethanyLuis [place] 4.2.7.2.686 [place] Professio [phone] Ga dical nal 059 [facility] 2019-12-08 2019-12-08 Outpatient R [facility] [id number] Univers 08:00:00 08:00:00 ity of [facility] 2019-12-07 2019-12-07 Patient Hawa Leos [facility] [id number] Univers 00:00:00 00:00:00 Secure Msg Jevon URIBE 350.1.13.10 ity of [place]2.[place] [phone] Ga dical NAL [address] [place] [address] 2019-12-06 2019-12-06 Office [facility] 1.2.840.114 [id number] Univers 14:09:58 15:35:56 Visit Lili Uribe 350.1.13.10 [place] [phone] Ga dical nal [address] [place] [address] 2019-12-06 2019-12-06 Outpatient R XAVIER, [facility] [id number] Univers 14:40:00 14:40:00 LILI corona o f [facility] 2019-11-22 2019-11-22 [facility] 1.2.840.114 [id number] Univers 00:00:00 00:00:00 Management Rafaela Uribe 350.1.13.10 [place] [phone] Ga dical nal [address] [place] [address] 2019-11-19 2019-11-19 [facility] 1.2.840.114 [id number] Univers 15:17:34 16:11:29 Visit Rafaela Uribe 350.1.13.10 [place] [phone] Ga dical nal 134 [facility] 2019-11-19 2019-11-19 Outpatient R BRIGHT [facility] [id number] Univers 15:30:00 15:30:00 RAFAELA corona [facility] 2019-11-18 2019-11-18 [facility] 1.2.840.114 [id number] Univers 08:48:19 10:03:57 Visit Brandon Uribe 350.1.13.10 i [place] [phone] Ga dical nal [address] [place] [address] 2019-11-18 2019-11-18 [facility] [id number] Univers 09:00:00 09:00:00 BRANDON cj [facility] 2019-11-18 2019-11-18 Orders Doctor CHENG 1.2.840.114 [id number] Univers 00:00:00 00:00:00 Only Unassigned, GEE 350.1.13.10 ity of [place] [facility] 4.2.7.2.686 Nadir as [phone] [address] 2019-11-16 2019-11-16 Patient Hawa Leos [facility] 1.2.497.393 [id number] Univers 00:00:00 00:00:00 Secure Msg Jevon URIBE 350.1.13.10 ity of [place] [phone] Ga dical NAL 134 [facility] 2019-09-01 2019-09-01 Outpatient R MIKALAMEETA [facility] [id number] Univers 14:00:00 14:00:00 BRANDON cj [facility] 2019-09-01 2019-09-01 Telemedici Arsen Israel [facility] 1 .2.840.114 [id number] Univers 08:15:10 08:30:10 ne Visit Brandon Espinoza 350.1.13.10 [place] [phone] Ga dical nal 044 [facility] 2019-08-31 2019-08-31 Patient Hawa Leos [facility] 1.2.201.473 [id number] Univers 00:00:00 00:00:00 Secure Msg Cam [place] 350.1.13.10 it[place] [phone] Ga dical nal [address] [place] [address] 2019-08-27 2019-08-27 Patient Olga [facility] 1.2.840.114 [id number] Univers 00:00:00 00:00:00 Secure Msg [facility] 350.1.13.10 ity of [place] 4.2.7.2.686 Nadir as Professio [phone] [address] 2019-08-25 2019-08-25 Telephone Hawa Leos [facility] 1.2.840.114 [id number] Univers 00:00:00 00:00:00 Cam [place] 350.1.13.10 i [place] [phone] Ga dical nal [address] [place] [address] 2019-08-09 2019-08-09 Patient Olga [facility] 1.2.840.114 [id number] Univers 00:00:00 00:00:00 Secure Msg [facility] 350.1.13.10 ity of [place] 4.2.7.2.686 [place]ir [place] Professio [phone] [address] 2019-07-26 2019-07-26 Outpatient R HAWA LEOS [facility] [id number] Univers 13:00:00 13:00:00 ity of [facility] 2019-07-26 2019-07-26 Telemedici Hawa Leos [facility] 1.2.840.114 [id number] Univers 08:23:57 08:38:57 ne Visit Cam [place] 350.1.13.10 it[place] of [place] [phone] Ga dical nal [address] [place] [address] 2019-07-15 2019-07-15 Patient Hawa Leos [facility] 1.2.381.961 [id number] Univers 00:00:00 00:00:00 Secure Msg Cam [place] 350.1.13.10 [place] of [place] [phone] Ga dical nal 134 [facility] 2019-06-29 2019-06-29 Patient Tanmay Berg 1.2.840.114 [id number] Univers 00:00:00 00:00:00 Outreach Serena Reesey 350.1.13.10 ity of [place].2.[place] [phone] [facility] [address] 2019-06-27 2019-06-27 Emergency [facility] 1.2.480.686 [id number] Univers 00:29:35 02:31:00 Aida S [place] 350.1.13.10 [place] [phone] [facility] [address] 2019-06-23 2019-06-25 Hospital Deric [facility] 1.2.840.114 [id number] Univers 03:48:00 11:05:00 Encounter Cam [place] 350.1.13.10 it[place] of [place] [phone] [facility] [address] [place] 2019-06-24 2019-06-24 Telephone Hawa Leos [facility] 1.2.840.114 [id number] Univers 00:00:00 00:00:00 Cam [place] 350.1.13.10 i [place] [phone] Ga dical nal 134 [facility] 2019-06-23 2019-06-23 Orders Doctor CHENG 1.2.840.114 [id number] Univers 00:00:00 00:00:00 Only Unassigned, GEE 350.1.13.10 ity of [place] [facility] 4.2.7.2.686 Nadir as [phone] [facility] [address] [place] 2019-06-21 2019-06-21 Hr Recruiter 2, Adc Lab [facility] 1.2.840.114 [id number] Univers 15:04:28 15:19:28 Visit Lucinda Sanchez Rony 350.1.13.10 it[place] of [place] [phone] Ga dical nal 353 [facility] 2019-06-21 2019-06-21 Routine Room, [facility] 1.2.840.1 14 [id number] Univers 13:51:46 14:06:46 Lucinda Sanchez [place]ony 350.1.13.10 ity of [place] [phone] Ga dical nal 134 [facility] 2019-06-21 2019-06-21 Outpatient R DANIEL [facility] [id number] Univers 14:00:00 14:00:00 LUCINDA ity [facility] 2019-06-21 2019-06-21 Outpatient R DERIC [facility] [id number] Univers 09:30:00 09:30:00 ity of [facility] 2019-06-18 2019-06-18 [facility] 1.2.840.114 [id number] Univers 15:04:00 15:30:00 Encounter Cam [place] 350.1.13.10 ity of [place] 4.2.7.2.686 [facility] [phone] [address] 2019-06-17 2019-06-17 [facility] Deric [facility] 1.2.840.114 [id number] Univers 11:06:00 14:55:00 Encounter Cam [place] 350.1.13.10 ity of [place] 4.2.7.2.686 [facility] [phone] [address] 2019-06-17 2019-06-[address] [facility] [id number] Univers 11:06:00 14:55:00 ity of [facility] 2019-06-17 2019-06-17 Routine Room, [facility] 1.2.840.1 14 [id number] Univers 10:04:47 10:48:05 Hawa Leos Jevon [place] 350.1.13.10 ity of [place] [phone] Ga dical nal 134 [facility] 2019-06-17 2019-06-17 Outpatient R HAWA LEOS [facility] [id number] Univers 10:00:00 10:00:00 ity of [facility] 2019-06-17 2019-06-17 Case Hawa Leos [facility] 1.2.959.772 [id number] Univers 00:00:00 00:00:00 Management Cam [place] 350.1.13.10 it[place] of [place] [phone] Ga dical nal [address] [place] [address] 2019-06-17 2019-06-17 Telephone Hawa Leos [facility] 1.2.840.114 [id number] Univers 00:00:00 00:00:00 Cam [place] 350.1.13.10 i [place] [phone] Ga dical nal [address] [place] [address] 2019-06-14 2019-06-14 Routine Room, [facility] 1.2.840.1 14 [id number] Univers 09:46:43 11:11:52 Hawa Leos Jevon [place] 350.1.13.10 ity of [place] [phone] Ga dical nal [address] [place] [address] 2019-06-14 2019-06-14 Outpatient R [facility] [id number] Univers 10:00:00 10:00:00 ity of [facility] 2019-06-11 2019-06-11 Hr Recruiter Ultrasound, [facility] 1.2 .840.114 [id number] Univers 13:48:15 14:18:15 Visit Jose David [place] 350.1.13.10 ity of [place] [phone] Ga dical nal [address] [place] [address] 2019-06-11 2019-06-11 Outpatient P [facility] [id number] Univers 14:00:00 14:00:00 ity of [facility] 2019-06-10 2019-06-10 Routine Room, [facility] 1.2.840.1 14 [id number] Univers 14:59:09 16:10:11 Hawa Leoston 350.1.13.10 ity of [place] [phone] Ga dical nal [address] [place] [address] 2019-06-10 2019-06-10 Outpatient P [facility] [id number] Univers 09:00:00 09:00:00 ity of [facility] 2019-06-07 2019-06-07 [facility] Hawa Leos [facility] 1.2.840.114 [id number] Univers 12:51:00 16:18:00 Encounter Jevon Uribe 350.1.13.10 ity of [place].2.[place] [phone] [address] 2019-06-07 2019-06-07 Routine Room, [facility] 1.2.840.1 14 [id number] Univers 10:49:48 12:41:10 Daniel Lucindabeth Uribe 350.1.13.10 ity of [place] [phone] Ga dical nal [address] [place] [address] 2019-06-07 2019-06-07 Outpatient R [facility] [id number] Univers 11:00:00 11:00:00 ity of [facility] 2019-06-03 2019-06-03 Routine Room, [facility] 1.2.840.1 14 [id number] Univers 08:51:00 09:56:51 Hawa Leos Rony 350.1.13.10 ity of [place] [phone] Ga dical [address] 2019-06-03 2019-06-03 Outpatient R HAWA LEOS [facility] [id number] Univers 09:00:00 09:00:00 ity of [facility] 2019-06-01 2019-06-01 Routine Lucinda Sanchez [facility] 1.2.840.11 [id number] Univers 08:01:06 09:07:31 Hawa Leos [place] 350.1.13.10 ity of [place] [phone] Ga dical nal 134 [facility] 2019-06-01 2019-06-01 Outpatient R [facility] [id number] Univers 08:00:00 08:00:00 ity of [facility] 2019-05-30 2019-05-30 Outpatient P JUNE PARTIDA [facility] [id number] Univers 14:40:58 22:39:00 BROWNJUNE MYRICK ity of [facility] 2019-05-30 2019-05-30 [facility] 1.2.840.114 [id number] Univers 14:40:58 22:39:00 Encounter June Uribe 350.1.13.10 ity of [place].2.[place] [phone] [facility] [address] [place] 2019-05-26 2019-05-26 Hr Recruiter Diego Nascimento Lab Main [facility] 1.2.8 40.114 [id number] Univers 16:46:34 17:01:34 Visit Hawa Leos Rony 350.1.13.10 it[place] of [place] [phone] [facility] nal 353 [facility] 2019-05-26 2019-05-26 Routine Leos Hawa [facility] 1.2.938.185 [id number] Univers 10:18:46 11:23:38 Jevon Uribe 350.1.13.10 ity of [place] [phone] Ga dical nal 134 [facility] 2019-05-24 2019-05-24 Case Daniel [facility] 1.2.966.862 [id number] Univers 00:00:00 00:00:00 Management Lucinda Uribe 350.1.13.10 [place] of [place] [phone] Ga dical nal 134 [facility] 2019-05-20 2019-05-20 Routine Daniel [facility] 1.2.144.425 [id number] Univers 14:32:18 15:18:48 Lucinda Rony 350.1.13.10 ity of [place] [phone] Ga dical nal 134 [facility] 2019-05-14 2019-05-14 Hr Recruiter Ramon, Adc [facility] [place] 1.2 .840.114 [id number] Univers 11:19:05 11:49:05 Visit Naomie JorgeNelsy Rony 350.1 .13.10 it[place] of [place] [phone] Ga dicct nal 134 [facility] 2019-05-07 2019-05-07 Patient Doctor TRAVIS 1.2.407.526 [id number] Univers 00:00:00 00:00:00 Secure Msg Unassigned, Y HEALTH 350.1.13.10 ity of [place] [facility] [place].2.7.2.[place] [phone] [facility] [address] [place] 2019-04-20 2019-04-20 Hr Recruiter Pily, Adc Lab Main [place] 1.2.8 40.114 [id number] Univers 11:53:42 12:08:42 Visit Jose Edorothyweston Lucindabeth Uribe 350.1.13.10 ity of [place] 4[place].2.[place] [phone] [facility] 353 [facility] 2019-04-20 2019-04-20 Orders Doctor CHENG 1.2.840.114 [id number] Univers 00:00:00 00:00:00 Only Unassigned, GEE 350.1.13.10 ity of [place] [facility] 4.2.7.2.686 Nadir as [phone] [facility] [address] [place] 2019-04-20 2019-04-20 Case Daniel RISEE 1.2.242.714 [id number] Univers 00:00:00 00:00:00 Management Lucinda Uribe 350.1.13.10 it[place] of [place] [phone] Ga dical [address] 2019-03-24 2019-03-24 Outpatient R FELICITA RUTHERFORD [facility] [id number] Univers 09:00:00 09:00:00 ity of [facility] 2018-12-22 2018-12-22 Case Hawa Leos [facility] 1.2.315.923 [id number] Univers 00:00:00 00:00:00 Management Jevon Uribe 350.1.13.10 it[place] of [place] [phone] Ga dic[address] 2018-12-11 2018-12-11 Case Daniel [facility] 1.2.814.257 [id number] Univers 00:00:00 00:00:00 Management [facility] 350.1.13.10 ity of Surgical 4.2.7.2.686 Nadir as Specialti [phone] Ga dic[address] 2018-12-10 2018-12-10 Initial Hawa Leos [facility] 1.2.916.741 [id number] Univers 07:52:56 08:57:20 Jevon [place]ribe 350.1.13.10 ity [place] [phone] [address] 2018-12-03 2018-12-03 Nurse Nurse, [facility] 1.2.840.114 [id number] Univers 10:06:24 10:34:28 Visit Hawa Leos Jevon [place] 350.1.13.10 it[place] of [place] [phone] Ga dic[address] 2018-12-03 2018-12-03 Orders Doctor CHENG 1.2.840.114 [id number] Univers 00:00:00 00:00:00 Only Unassigned, GEE 350.1.13.10 ity of [place] [facility] 4.2.7.2.686 Nadir as [phone] [address] 2018-11-17 2018-11-17 Telephone Olga [facility] 1.2.840.114 [id number] Univers 00:00:00 00:00:00 Brandon Uribe 350.1.13.10 i ty of [place] 4[place].2.[place] [phone] Ga dical nal 044 [facility] 2018-11-06 2018-11-06 Orders Doctor CHENG 1.2.840.114 [id number] Univers 00:00:00 00:00:00 Only Unassigned, GEE 350.1.13.10 ity of [place] [facility] 4.2.7.2.686 Nadir as [phone] [address] 2018-11-03 2018-11-03 Office Olga, [facility] 1.2.840.114 [id number] Univers 13:03:23 14:40:49 Visit Brandon Uribe 350.1.13.10 i ty of [place].2.[place] [phone] [address] Results Test Description Test Time Test Comments Results Result Comments Source RHO (D) IMMUNE GLOBULIN 2022-11-09 16:39:14 Test Item Value Reference Range Interpretation Comme nts RHIG CANDIDATE? (test code = No- see comment Patient is not a candidate for RhIg- 5188) Patient is Rh P ositive.Performed at [facility] Laboratory Services - [facility] Blood [address] [place] [address] 52010Lelf Free: [phone] A No. [id number] [facility] - SYPHILIS [id number] 16:20:18 Test Item Value Reference Range Interpretation Comments Syphilis IgG/IgM (test Non-reactive Non-reactive code = 43969-7) TAMANNA (test code = TAMANNA) Non-reactive - No serologic evidence of T. pallidum infection. Cannot exclude incubating or early syphilis. Submit a second specimen in 2-4 weeks if syphilis is clinically suspected. Equivocal - Further testing to follow. Reactive - Further testing to follow. Lab Interpretation (test Normal code = 05548-5) [facility] [id number] 12:56:45 Test Item Value Reference Range Interpretation Comments BASE EXCESS, CORD -5.0 mEq/L (test code = 4032914932) AC PH, CORD (BEAKER) 7.32 7.18-7.38 (test code = 7504474101) PC02, CORD (test code 41 See_Comment [Auto mated message] The = 5044928756) system which g enerated this result transmit marko reference range : 32 - 66 mmHg. The refer ence range was not used to interpret this result as normal/abnormal . PO2, CORD (test code 24 See_Comment [Autom ated message] The = 1017026190) system which g enerated this result transmit marko reference range : 10 - 30 mmHg. The refer ence range was not used to interpret this result as normal/abnormal . BICARBONATE, CORD 21 See_Comment [Automate d message] The (test code = system which ge nerated this 1027247785) result transmit marko reference range : 17 - 27 mEq/L. The refe rence range was not used to interpret this result as normal/abnormal . [facility] [id number] 12:56:15 Test Item Value Reference Range Interpretation Comments VENOUS BASE EXCESS, -0.6 mEq/L CORD (test code = 0444260286) VENOUS PH, CORD (test 7.37 7.25-7.45 code = 4006737164) VENOUS PC02, CORD 44 See_Comment [Automate d message] The (test code = system which ge nerated 3742713087) this result tra nsmitted reference range : 27 - 49 mmHg. The refer ence range was not used to interpret this result as normal/abnormal . VENOUS PO2, CORD (test 30 See_Comment [Aut omated message] The code = 1683571227) system wh ich generated this result tra nsmitted reference range : 17 - 41 mmHg. The refer ence range was not used to interpret this result as normal/abnormal . VENOUS BICARBONATE, 25 See_Comment QUES [Au tomated message] CORD (test code = The system which generated 9119435981) this result tra nsmitted reference range : 12 - 29 mEq/L. The refe rence range was not used to interpret this result as normal/abnormal . [facility]/2 AG-AB WITH [id number] 04:49:06 Test Item Value Reference Range Interpretation Comments HIV 0.12 Negative Semi-quantitative (test code = 38984-1) TAMANNA (test code = Non-reactive for HIV-1 TAMANNA) antigen and HIV-1/HIV-2 antibodies. ?No laboratory evidence of HIV infection. ?Repeat in 2-4 weeks if acute HIV infection is suspected. [facility] CenterHepatitis B Surface [id number] 02:59:58 Test Item Value Reference Range Interpretation Comments HBsAg Semi-Quantitative (test code = 0.10 Negative 5195-3) [facility] CenterCB with [id number] 01:12:02 Test Item Value Reference Range Interpretation Comments WBC (test code = 13.85 See_Comment H [Automated 6690-2) message] The system which generated this result transmit marko reference range : 4.30 - 11.10 10*3/?L. The reference range was not used to interpret this result as normal/abnormal . RBC (test code = 3.98 See_Comment [Automated 789-8) message] The system which generated this result transmit marko reference range : 3.93 - 5.25 10*6/?L. The reference range was not used to interpret this result as normal/abnormal . HGB (test code = 9.7 g/dL 11.6-15.0 L 718-7) HCT (test code = 31.3 % 35.7-45.2 L 4544-3) MCV (test code = 78.6 fL 80.6-95.5 L 787-2) MCH (test code = 24.4 pg 25.9-32.8 L 785-6) MCHC (test code = 31.0 g/dL 31.6-35.1 L 786-4) RDW-SD (test code = 45.7 fL 39.0-49.9 56014-2) RDW-CV (test code = 16.0 % 12.0-15.5 H 788-0) PLT (test code = 264 See_Comment [Automated 777-3) message] The system which generated this result transmit marko reference range : 166 - 358 10*3/ ?L. The reference range was not u sed to interpret th is result as normal/abnormal . MPV (test code = 10.3 fL 9.5-12.9 36282-0) NRBC/100 WBC (test 0.0 See_Comment [Automat ed code = 4336663194) message] The system which generated this result transmit marko reference range : 0.0 - 10.0 /100 WBCs. The reference range was not used to interpret this result as normal/abnormal . NRBC x10^3 (test code See_Comment [Auto mated = 3288526133) message] The system which generated this result transmit marko reference range : 10*3/?L. The reference range was not used to interpret this result as normal/abnormal . GRAN MAT (NEUT) % 88.0 % (test code = 770-8) IMM GRAN % (test code 0.60 % = 4983435769) LYMPH % (test code = 6.4 % 736-9) MONO % (test code = 4.6 % 5905-5) EOS % (test code = 0.2 % 713-8) BASO % (test code = 0.2 % 706-2) GRAN MAT x10^3(ANC) 12.17 10*3/uL 1.88-7.09 H (test code = 5374456325) IMM GRAN x10^3 (test 0.09 10*3/uL 0.00-0.06 H code = 2851562014) LYMPH x10^3 (test code 0.89 10*3/uL 1.32-3.29 L = 731-0) MONO x10^3 (test code 0.64 10*3/uL 0.33-0.92 = 742-7) EOS x10^3 (test code = 0.03 10*3/uL 0.03-0.39 711-2) BASO x10^3 (test code 0.03 10*3/uL 0.01-0.07 = 704-7) Lab Interpretation Abnormal (test code = 25511-2) [facility] CenterType and Screen - ONCE [id number] 01:02:00 Test Item Value Reference Range Interpretation Comments ABO & RH (test code = 20) A POSITIVE IAT (test code = 1185) Negative [facility] Center[facility]YS[facility] W/O SPECIFIC [id number] 15:44:00 Test Item Value Reference Range Interpretation Comments POCT PH U (test code = 3254) 8 mg/dl 5-8 POCT U LEUK EST (test code = negative Negative - Negative 3263) POCT U NIT (test code = 3262) negative Negative - Negative POCT U PROT (test code = 3259) trace Negative - Negative POCT U GLU (test code = 3256) negative Negative - Negative POCT U KETONE (test code = 3258) negative Negative - Negative POCT U BLD (test code = 3257) negative Negative - Negative Lab Interpretation (test code = Normal 61130-8) [facility] URINALYSIS W/O SPECIFIC [id number] 19:00:00 Test Item Value Reference Range Interpretation Comments POCT PH U (test code = 3254) 6 mg/dl 5-8 POCT U LEUK EST (test code = neg Negative - Negative 3263) POCT U NIT (test code = 3262) neg Negative - Negative POCT U PROT (test code = 3259) neg Negative - Negative POCT U GLU (test code = 3256) neg Negative - Negative POCT U KETONE (test code = 3258) neg Negative - Negative POCT U BLD (test code = 3257) neg Negative - Negative [facility] URINALYSIS W/O SPECIFIC [id number] 13:58:00 Test Item Value Reference Range Interpretation Comments POCT PH U (test code = 3254) 7 mg/dl 5-8 POCT U LEUK EST (test code = Negative Negative - Negative 3263) POCT U NIT (test code = 3262) Negative Negative - Negative POCT U PROT (test code = 3259) Negative Negative - Negative POCT U GLU (test code = 3256) Negative Negative - Negative POCT U KETONE (test code = 3258) Negative Negative - Negative POCT U BLD (test code = 3257) Negative Negative - Negative [facility] [id number] 13:58:00 Test Item Value Reference Range Interpretation Comments POCT PH U (test code = 3254) 7 mg/dl 5-8 POCT U LEUK EST (test code = Negative Negative - Negative 3263) POCT U NIT (test code = 3262) Negative Negative - Negative POCT U PROT (test code = 3259) Negative Negative - Negative POCT U GLU (test code = 3256) Negative Negative - Negative POCT U KETONE (test code = 3258) Negative Negative - Negative POCT U BLD (test code = 3257) Negative Negative - Negative [facility] URINALYSIS W/O SPECIFIC [id number] 13:58:00 Test Item Value Reference Range Interpretation Comments POCT PH U (test code = 3254) 7 mg/dl 5-8 POCT U LEUK EST (test code = Negative Negative - Negative 3263) POCT U NIT (test code = 3262) Negative Negative - Negative POCT U PROT (test code = 3259) Negative Negative - Negative POCT U GLU (test code = 3256) Negative Negative - Negative POCT U KETONE (test code = 3258) Negative Negative - Negative POCT U BLD (test code = 3257) Negative Negative - Negative [facility] URINALYSIS W/O SPECIFIC [id number] 13:36:00 Test Item Value Reference Range Interpretation Comments POCT PH U (test code = 3254) 8 mg/dl 5-8 POCT U LEUK EST (test code = Negative Negative - Negative 3263) POCT U NIT (test code = 3262) Negative Negative - Negative POCT U PROT (test code = 3259) Negative Negative - Negative POCT U GLU (test code = 3256) Negative Negative - Negative POCT U KETONE (test code = 3258) Negative Negative - Negative POCT U BLD (test code = 3257) Negative Negative - Negative Lab Interpretation (test code = Abnormal 27517-6) [facility] URINALYSIS W SPECIFIC [id number] 20:57:00 Test Item Value Reference Range Interpretation Comments POCT U SP GRAV (test code = 3255) . 1.005-1.025 POCT PH U (test code = 3254) 6 mg/dl 5-8 POCT U LEUK EST (test code = Trace Negative - Negative 3263) POCT U NIT (test code = 3262) Neg Negative - Negative POCT U PROT (test code = 3259) Trace Negative - Negative POCT U GLU (test code = 3256) Neg Negative - Negative POCT U KETONE (test code = 3258) None Negative - Negative POCT U UROBILI (test code = 3260) . 0.2-1 POCT U BILI (test code = 3261) . Negative - Negative POCT U BLD (test code = 3257) Trace Negative - Negative POCT U COLOR (test code = 3266) . POCT U APPEAR (test code = 3267) [facility] URINALYSIS W/O SPECIFIC [id number] 14:33:00 Test Item Value Reference Range Interpretation Comments POCT PH U (test code = 3254) 7 mg/dl 5-8 POCT U LEUK EST (test code = neg Negative - Negative 3263) POCT U NIT (test code = 3262) neg Negative - Negative POCT U PROT (test code = 3259) trace Negative - Negative POCT U GLU (test code = 3256) neg Negative - Negative POCT U KETONE (test code = 3258) neg Negative - Negative POCT U BLD (test code = 3257) neg Negative - Negative [facility] URINALYSIS W/O SPECIFIC [id number] 14:33:00 Test Item Value Reference Range Interpretation Comments POCT PH U (test code = 3254) 7 mg/dl 5-8 POCT U LEUK EST (test code = neg Negative - Negative 3263) POCT U NIT (test code = 3262) neg Negative - Negative POCT U PROT (test code = 3259) trace Negative - Negative POCT U GLU (test code = 3256) neg Negative - Negative POCT U KETONE (test code = 3258) neg Negative - Negative POCT U BLD (test code = 3257) neg Negative - Negative [facility] URINALYSIS W/O SPECIFIC [id number] 14:53:00 Test Item Value Reference Range Interpretation Comments POCT PH U (test code = 3254) 8 mg/dl 5-8 POCT U LEUK EST (test code = - Negative - Negative 3263) POCT U NIT (test code = 3262) - Negative - Negative POCT U PROT (test code = 3259) trace Negative - Negative POCT U GLU (test code = 3256) - Negative - Negative POCT U KETONE (test code = 3258) - Negative - Negative POCT U BLD (test code = 3257) - Negative - Negative Lab Interpretation (test code = Abnormal 87586-7) [facility] URINALYSIS W/O SPECIFIC [id number] 15:31:00 Test Item Value Reference Range Interpretation Comments POCT PH U (test code = 3254) 6 mg/dl 5-8 POCT U LEUK EST (test code = neg Negative - Negative 3263) POCT U NIT (test code = 3262) neg Negative - Negative POCT U PROT (test code = 3259) neg Negative - Negative POCT U GLU (test code = 3256) neg Negative - Negative POCT U KETONE (test code = 3258) neg Negative - Negative POCT U BLD (test code = 3257) neg Negative - Negative Lab Interpretation (test code = Normal 35883-8) [facility] URINALYSIS W/O SPECIFIC [id number] 14:22:00 Test Item Value Reference Range Interpretation Comments POCT PH U (test code = 3254) 8 mg/dl 5-8 POCT U LEUK EST (test code = Negative Negative - Negative 3263) POCT U NIT (test code = 3262) Negative Negative - Negative POCT U PROT (test code = 3259) Negative Negative - Negative POCT U GLU (test code = 3256) Negative Negative - Negative POCT U KETONE (test code = 3258) Negative Negative - Negative POCT U BLD (test code = 3257) Negative Negative - Negative Lab Interpretation (test code = Normal 84013-7) [facility] URINALYSIS W/O SPECIFIC [id number] 14:56:00 Test Item Value Reference Range Interpretation Comments POCT PH U (test code = 3254) 8 mg/dl 5-8 POCT U LEUK EST (test code = 1+ Negative - Negative 3263) POCT U NIT (test code = 3262) neg Negative - Negative POCT U PROT (test code = 3259) trace Negative - Negative POCT U GLU (test code = 3256) neg Negative - Negative POCT U KETONE (test code = 3258) neg Negative - Negative POCT U BLD (test code = 3257) neg Negative - Negative Lab Interpretation (test code = Abnormal 09527-8) [facility] [id number] 14:55:00 Test Item Value Reference Range Interpretation Comments POCT PREG (test code = 1605) Positive On board controls acceptable with C Yes Line (test code = 3578) POCT PREG LOT # (test code = 3575) POCT PREG TEST DATE (test code = 3576) [facility] 20:44:10 Test Item Value Reference Range Interpretation Comments IGG SUBCLASS4 77 mg/dL 1-123 REFERENCE INTE RVAL: (test code = Immunoglobulin G Subclass 4 2469-5) Access complete set of age- and/or gender-s pecific reference inter vals for this test in [facility] [employer] Laboratory Test Directory ([employer]).P erformed By: [facility] [address] [place], [place] [address] [place] [address] Director: Laron Islas MD, PhD [facility] SUBCLASS [id number] 20:44:10 Test Item Value Reference Range Interpretation Comments IGG SUBCLASS4 77 mg/dL 1-123 REFERENCE INTE RVAL: (test code = Immunoglobulin G Subclass 4 2469-5) Access complete set of age- and/or gender-s pecific reference inter vals for this test in e [employer] [facility] Test Directory ([employer]).P erformed By: [facility] [address] [address]Opmzlhf ory Director: Laron Islas MD, PhD [facility] URINALYSIS W/O SPECIFIC [id number] 14:29:00 Test Item Value Reference Range Interpretation Comments POCT PH U (test code = 3254) n/a 5-8 POCT U LEUK EST (test code = n/a Negative - Negative 3263) POCT U NIT (test code = 3262) n/a Negative - Negative POCT U PROT (test code = 3259) negative Negative - Negative POCT U GLU (test code = 3256) negative Negative - Negative POCT U KETONE (test code = 3258) n/a Negative - Negative POCT U BLD (test code = 3257) n/a Negative - Negative [facility] [id number] 21:08:00 Test Item Value Reference Range Interpretation Comments POCT PREG (test code = 1605) Positive On board controls acceptable with C Yes Line (test code = 3574) POCT PREG LOT # (test code = 3575) POCT PREG TEST DATE (test code = 3576) [facility]PO[facility] [id number] 21:08:00 Test Item Value Reference Range Interpretation Comments POCT PREG (test code = 1605) Positive On board controls acceptable with C Yes Line (test code = 3574) POCT PREG LOT # (test code = 3575) POCT PREG TEST DATE (test code = 3576) [facility] CenterC[facility] Asymptomatic IH [id number] 13:25:00 Test Item Value Reference Range Interpretation Comments COVID 19 Asymptomatic NEGATIVE Negative Per ma nufacturer, IH AG (test code = negative results should COVNONPUIAG) be treated aspresumptive a nd, if inconsistent wi th clinical signs andsymptoms or necessary for p atient management, shalonda uld betested with a n alternative mol ecular assay. Negative resultsdo not p reclude SARS-CoV-2 infe ction and should not be usedas the sole basis for patient man agement decisions. Nega tive results should be considered in t he context of apat ient's recent exposure s, history, presen ce of clinicalsigns a nd symptoms consis tent with COVID-19. BASIC METABOLIC [id number] 10:10:00 Test Item Value Reference Range Interpretation Comments SODIUM (test code = NA) 139 mmol/L 134-147 N POTASSIUM (test code = 3.4 mmol/L 3.4-5.0 N K) CHLORIDE (test code = 110 mmol/L 100-108 H CL) CARBON DIOXIDE (test 24 mmol/L 21-32 N code = CO2) ANION GAP (test code = 5.0 GAP calc 4.0-15.0 N GAP) GLUCOSE (test code = 124 MG/DL 70-110 H GLU) BLOOD UREA NITROGEN 11 MG/DL 7-18 N (test code = BUN) GLOMERULAR FILTRATION >=60 max estimate >60 RATE (test code = GFR) estGFR CREATININE (test code = 0.7 MG/DL 0.6-1.0 N CREAT) CALCIUM (test code = CA) 8.7 MG/DL 8.5-10.1 N HCG [id number] 10:10:00 Test Item Value Reference Range Interpretation Comments HCG SERUM (test < 1 mi-IU/ML 0-6 N 0 - 6 NOT P REGNANT > 6 code = HCG) SUGGESTIVE OF E FUENTES RISES TWO FOLD EVERY 2 DAYS; SUGGEST RECONFIRMING AF TER 2 DAYS. 150,000-2 00,[address] TRIMESTER 10 ,000 - 50,000 2ND & 3R D TRIMESTER - CT HEAD/BRAIN W/O [id number] 10:06:00 [facility] : 2000 Sex: F Name: LORENZA ARTHUR [facility] : 2000 Age/S: 21 / F [id number] [facility] [address] Unit #: [id number] Loc: [place] [address] Phys: Iesha Cast DO Acct: [id number] Dis Date: Status: REG ER PHONE #: [phone] Exam Date: 08/13/2021 1000 FAX #: Reason: headache EXAMS: CPT: [id number] CT HEAD/BRAIN W/O CONT [id number] EXAM: - CT HEAD/BRAIN W/O CONT LOCATION: C3 HISTORY: 21 years-year old Female with headacheTECHNIQUE: Computerized tomography images from the skull base to the vertex were obtained. Coronal and sagittal reformatted images are provided. This exam was performed according to our departmental dose-optimization program, which includes automated exposure control, adjustment of the mA and/or kV acc ording to patient size and/or use of iterative reconstruction technique COMPARISON: None available at time of interpretation. FINDINGS: Brain: 1.8 cm high density right peripontine mass is noted. The brain parenchyma is age appropriate. There is no evidence of an acute territorial infarct. There is no midline shift. Hemorrhage: There is no CT evidence of acute intracranial hemorrhage. Ventricles: There is no evidence of hydrocephalus. Bones: There is no evidence of acute displaced calvarial fracture. Sinuses: The visualized portions of the paranasal sinuses and mastoid air cells are free of significant opacification. Other/Soft Tissues: Unremarkable. IMPRESSION: 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 Recommend MRI of the brain with and without contrast for further evaluation. at 1006 Reported and signed by: SALUD FREEMAN M.D. PAGE 1 Signed Report (CONTINUED) Name: LORENZA ARTHUR Qi : 2000 Age/S: 21 / F [id number] [address] Unit #: [id number] Loc: [place] [address] Phys: Iesha Cast DO Acct: [id number] Dis Date: Status: REG ER PHONE #: [phone] Exam Date: 08/13/2021 1000 FAX #: Reason: headache EXAMS: CPT: [id number] CT HEAD/BRAIN W/O CONT [id number] (Continued) CC: Iesha Cast DO Technologist:Laura Costa, RT(R) CTDI: DLP: Trnscb Date/Time: 08/13/2021 (1006) [id number] Orig Print D/T:S: 08/13/2021 (1009) PAGE 2 Signed ReportCBC W/AUTO [id number] 09:49:00 Test Item Value Reference Range Interpretation Comments WHITE BLOOD CELL (test code = 7.5 K/mm3 3.5-11.0 N WBC) RED BLOOD CELL (test code = 4.01 M/mm3 4.70-6.10 L RBC) HEMOGLOBIN (test code = HGB) 11.9 G/DL 10.4-14.9 N HEMATOCRIT (test code = HCT) 35.3 % 31.5-44.1 N MEAN CELL VOLUME (test code = 88.0 Fl 84.5-98.6 N MCV) MEAN CELL HGB (test code = MCH) 29.7 pg 27.0-34.2 N MEAN CELL HGB CONCETRATION 33.7 G/DL 31.5-34.0 N (test code = MCHC) RED CELL DISTRIBUTION WIDTH 12.8 SD 11.5-14.5 N (test code = RDW) PLATELET COUNT (test code = 273 K/mm3 150-450 N PLT) MEAN PLATELET VOLUME (test code 9.10 fL 7.0-10.5 N = MPV) NEUTROPHIL % (test code = NT%) 72.5 % 40-76 N IMMATURE GRANULOCYTE % (test 0.3 % 0.0-5.0 N code = IG%) LYMPHOCYTE % (test code = LY%) 19.6 % 20.5-51.1 L MONOCYTE % (test code = MO%) 6.8 % 1.7-9.3 N EOSINOPHIL % (test code = EO%) 0.7 % 0.0-6.0 N BASOPHIL % (test code = BA%) 0.1 % 0.0-2.0 N NUCLEATED RBC % (test code = 0.0 /100WBC% 0.0-1.0 N NRBC%) NEUTROPHIL # (test code = NT#) 5.4 K/mm3 1.8-7.6 N IMMATURE GRANULOCYTE # (test 0.02 x10 3/uL 0.00-0.03 N code = IG#) LYMPHOCYTE # (test code = LY#) 1.5 K/mm3 0.6-3.2 N MONOCYTE # (test code = MO#) 0.5 K/mm3 0.3-1.1 N EOSINOPHIL # (test code = EO#) 0.1 K/mm3 0.0-0.4 N BASOPHIL # (test code = BA#) 0.0 K/mm3 0.0-0.1 N NUCLEATED RBC # (test code = 0.0 K/mm3 0.0-0.1 N NRBC#) MANUAL DIFF REQUIRED (test code NO DIFF/SCN CRITERIA = MDIFF) History and Physical Notes Date/Time Note Provider Source 2022-11-08 19:09:22 [id number]:09:22Formatting of this note [facility] is different from the original.TRIAGE/L&D HISTORY & PHYSICALIDENTIFYING DATALoran Zohreh Arthur is 22 year old, /White, 37w6d, female with CARLEE 11/23/2022, by Ultrasound. : 2000MRN: [id number] Care Physician: Arturo Motley COMPLAINTIOLHISTORY OF PRESENT ILLNESSLorenza Arthur is a 22 year old at 37w6d who presents for induction of labor.Patient developed itchiness of both hands three days ago on 11/05. Bile acids were 36 and patient was scheduled for induction of labor due to intrahepatic cholestasis of . Patient reports contractions started this AM (11/08), however they are irregular. Patient denies vaginal bleeding, denies leakage of fluid. Patient endorses headache, denies nausea/vomiting, denies RUQ pain, denies visual abnormalities.Endorses normal movement.PAST OBSTETRIC HISTORYOB History Para Term AB Living 3 2 1 1 0 2 SAB IAB Ectopic Multiple Live Births 0 0 0 0 2 # Outcome Date GA Lbr Cade/2nd Weight Sex Delivery Anes PTL Lv 3 Current 2 06/23/19 36w2d 3300 g M NORMAL SPONT EPI N KATHLEEN 1 Term 06/09/18 38w0d 3289 g M NORMAL SPONT KATHLEEN PAST MEDICAL HISTORYProblem list: Patient Active Problem List Diagnosis Date Noted 37 weeks gestation of 11/08/2022 Anemia of mother in , antepartum 09/05/2022 History of depression 06/25/2022 History of delivery 06/12/2022 Mycoplasma infection 04/23/2022 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 09/13/2021 Migraine variant with headache 09/13/2021 Brain tumor 08/14/2021 Liver mass, right lobe 08/23/2020 Adjustment insomnia 08/18/2020 Contusion of liver, sequela 07/27/2020 Sinus arrhythmia seen on electrocardiogram 11/18/2019 Supervision of high risk in second trimester 05/07/2019 Chronic migraine without aura without status migrainosus, not intractable 03/03/2019 Hx of suicide attempt 02/03/2019 Anxiety and depression 10/20/2018 Obesity (BMI 30-39.9) 05/13/2018 Operations: Past Surgical History: Procedure Laterality Date CHOLECYSTECTOMY 07/2020 INITIATE POST OP CHOLECYSTECTOMY CRITICAL PATHWAY IF NOT ALREADY DONE SO Past Medical History: Diagnosis Date Anemia of mother in , antepartum 09/05/2022 Anxiety Anxiety and depression 10/20/2018 Atypical chest pain 11/18/2019 Brain tumor Constipation due to slow transit 07/27/2020 Depression 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 Panic attacks Right upper quadrant abdominal pain 07/19/2020 Status post laparoscopic cholecystectomy 07/27/2020 STD (sexually transmitted disease) trich x 2 2019 CURRENT HEALTH STATUSMedications: Current Facility-Administered Medications Medication Dose Route Frequency Last Rate Last Admin D5W-LR IV infusion 1,000 mL 1,000 mL IV Infusion TITRATE 119 mL/hr at 11/08/222240 Rate Change at 11/08/222240 lactated ringers IV infusion 500 mL 500 mL IV Infusion PRN - SEE INSTRUCTIONS lidocaine 1% (PF) (XYLOCAINE) injection 0.3 mL 0.3 mL Infiltration PRN - SEE INSTRUCTIONS lidocaine 1% (XYLOCAINE) 10 mg/mL (1 %) injection 50 mL 50 mL Infiltration PRN - SEE INSTRUCTIONS oxytocin (PITOCIN) 30 units in NS 500 mL IV infusion 2-40 jill-units/min IV Infusion TITRATE 8 mL/hr at 11/08/222242 8 jill-units/min at 11/08/222242 penicillin GK 3 million units in NS 50 mL IV infusion (CNR) 3 Million Units IV Piggyback Q4H ABX proMETHazine (PHENERGAN) 12.5 mg in NS 50 mL IV piggyback (CNR) 12.5 mg IV Piggyback ONCE 200 mL/hr at 11/08/222241 12.5 mg at 11/08/222241 sodium citrate-citric acid (BICITRA) 500-334 mg/5 mL solution 30 mL 30 mL Oral PRE-PROCEDURE ONCE Allergies and drug reactions: Patient has no known allergies.HOME MEDICATIONSMedications Prior to Admission Medication Sig Dispense Refill Last Dose Iron Fum & P-FA-Vit B & C No.9 (INTEGRA PLUS) 125 mg iron- 1 mg Cap Take 1 capsule by mouth in the morning. 30 capsule 6 Taking magnesium oxide 400 mg magnesium Tab Take 1 tablet by mouth in the morning. 30 tablet 3 Not Taking pyridoxine, vitamin B6, 50 mg tablet Take 1 tablet by mouth twice daily before breakfast and dinner. 60 tablet 2 Not Taking vit no.124/iron/folic ( VITAMIN ORAL) Take by mouth. Taking SOCIAL HISTORYTobacco History: Social History Tobacco Use Smoking Status Never Passive exposure: Never Smokeless Tobacco Never Drug History: Social History Substance and Sexual Activity Drug Use Never Alcohol History: Social History Substance and Sexual Activity Alcohol Use Not Currently FAMILY HISTORYFamily History Problem Relation Age of Onset Arthritis Mother No Significant Medical Problems Father Cancer Sister Thyroid Diabetes Maternal Aunt Heart Paternal Uncle Cancer Paternal Grandmother Asthma NoFHx defects NoFHx Genetic NoFHx Breast Cancer NoFHx Colon Cancer NoFHx Ovarian Cancer NoFHx Uterine Cancer NoFHx Depression NoFHx Psychiatry NoFHx Hypertension NoFHx High cholesterol NoFHx Mental retardation NoFHx Neurological NoFHx Osteoporosis NoFHx REVIEW OF SYSTEMSGeneral: negativeSkin: (+) itchiness on handsHEENT: + headacheNeck: negativeHEME: negativeResp: negativeCardio: negativeGI: (+) abdominal painGU: negativeEndo: negativeNeuro: negativeBack: negativeMSS: negativePsych: negativeVITAL SIGNSBP: (107-117)/(58-75) Temp: [36.9 ?C (98.5 ?F)-37.1 ?C (98.7 ?F)] Temp source: Oral (11/08 2100)Pulse: [87-114] Resp: [16-20] SpO2: [90 %-100 %] Height: [162.6 cm (5' 4")] Weight: [83 kg (183 lb)] BMI (calculated): [31.41] PHYSICAL EXAMINATIONSGeneral: patient alert and in no acute distressHEENT: symmetric, negative for massesLungs: unlabored breathingCardiology: peripheral pulses intact and regularAbdomen: soft, non-tender, non-distended, no liver, spleen or abnormal masses palpated and GravidExtremities: no clubbing, cyanosis, or edemaNeuro: patient moving all extremities, no facial droopGU: SVE 05/01/ REVIEW OF LABORATORY, PATHOLOGY, AND RADIOLOGY DATALab results:Type & Screen Lab Results Component Value Date/Time IABORH A POSITIVE 11/08/2022 07:56 PM IAT Negative 11/08/2022 07:56 PM SerologiesLab Results Component Value Date/Time VZVIGG Positive 04/11/2022 09:05 AM RUBG Positive 04/11/2022 09:05 AM SYPIGG Non-reactive 09/24/2022 09:43 AM HBSAG Negative 11/08/2022 07:56 PM HBSAG 0.10 11/08/2022 07:56 PM ChlamydiaLab Results Component Value Date/Time VCAA Negative 10/11/2022 04:03 PM Group B StrepLab Results Component Value Date/Time CGB Positive (A) 10/22/2022 10:44 AM GTTLab Results Component Value Date/Time FTFG7ME 77 (L) 08/28/2022 09:14 AM CBCLab Results Component Value Date/Time HGB 9.7 (L) 11/08/2022 07:56 PM HCT 31.3 (L) 11/08/2022 07:56 PM PLT 264 11/08/2022 07:56 PM Active Hospital Problems Diagnosis Date Noted 37 weeks gestation of 11/08/2022 Anemia of mother in , antepartum 09/05/2022 History of delivery 06/12/2022 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 : NoPrior Uterine Surgery?: NoPlacenta low lying/previa in current ? : NoUltrasound suspicion of PASD in current ?: NoScreening outcome:A positive screening outcome indicates a history of prior delivery or prior uterine surgery, AND the presence of either a placenta low lying/previa or ultrasound suspicion of PASD in the current . Negative screening.ASSESSMENT AND PLANLoran Zohreh Arthur is a 22 year old at 37w6d by u(8) who presents for induction of labor.IOL- Pt reports irregular contractions, denies vaginal bleeding, leakage of fluid and decreased movement- SVE: 05/01/3- Contractions (number / 10 minute): q2-3min- Plan: induction of labor with gaspar balloon and pitocin titration due to ICP ICP- Dx based on symptoms and bile acids: 36- Pt reports bilateral hand itchiness starting 11/05/2022- H/o ICP in previous - Not on medication 09/24/22 09:43 11/05/22 11:31 Bile Acids 8 36 (H) ALTv 24 24 AST(SGOT) 28 27 GBS (+)- PCN intrapartumCerebellopontine angle tumorNeurosarcoidosis- Dx 08/2021 after episode of severe headache, R unilateral ear and eye pain- Was scheduled for craniotomy resection in August 2021 but aborted due to head lice- Followed by Neuro, Rheumatology and MFM - As of 2021, mass effect and hematoma have decreased with progression of "plaque-like enhancement" suggestive of sarcoidosis or other inflammatory disorder- Pt endorses headache on admission, unchanged from baseline, does not desire medication - Plan: Continue to f/u with neurosurgery after delivery, per note, planning to repeat MRI in 2-3 monthsAnxiety/Depression- Pt reports h/o anxiety and depression > 2 yrs ago- Denies recent symptoms- Reports stable mood, denies SI/HI on admission- Reassess Antepartum course reviewed- 1 h 113, sero negative, Rimmune, VZVimmune, HPV immune, A positive/IAT negative, GBS positive, Pap NILM 01/2020- H/H, plt: 9.2 / 30.3, 271 on 10/22/2022- PP control plan: undecided- [place] RMCHPFetus- Presentation on admission: cephalic - Anterior placenta - EFW: 3190 g, 48%tile- FHT reactive and reassuring- Normal anatomy scanD/w Dr. Hoda Hewitt MD ssociated attestation - Yousuf Birch MD - 11/09/2022 3:46 AM CDT Attending Attestation:I was faculty at the time of service provided. Agree with documentation of assessment and plan as noted above.Talon Montezternal- Medicine/OBGYNPGY-60233:46 NE92126-9Urbwibb and physical [id number].1.13.104.2.7.2.8369 00RhfrJkzzomciPH3181-24-47T97:46:28History and physical noteTXT1.2.840.850922.1.13.104.2.7.2.44556 9|[id number] for patient tizg34456-2Uazvtay and physical noteLN[address] Fm[id number] UFQUMWHQYQXUFHQM6468-80-35J74:46:281.2.840 .114468.1.72.3.15|1.2.840.814832.1.13.104. 2.7.2.727879_[id number] Procedure Notes Date/Time Note Provider Source 2022-11-09 [id number]:51:01Associated AN-ANESTHESIOLOGY [facility] 01:51:01 Order(s): Central Neuraxial Block Central Neuraxial Block Date/Time: 11/09/2022 1:25 AMPerformed by: James Veloz MDAuthorized by: Yousuf Birch MD Patient Location: OBReason for Block: Labor analgesiaStaff: Anesthesiologist: Mayra Mayes MD Resident/COMMUNICATIONS EQUIPMENT OPERATOR: James Veloz MD Performed by: resident/CRNAPreanesthetic Checklist: anesthesia consent, monitors and equipment checked, ob/surgical consent approval, ob/surgical consent verified, patient identified, pre-op evaluation and timeout performedProcedure: Type of Neuraxial: Epidural Epidural Description: 1st attempt Sterility Prep cap, drape, gloves, hand hygiene and mask Sedation Level no sedation Patient Position: sitting Prep: Betadine and patient draped Monitoring: monitor tech / EKG, heart rate / toco, heart rate and NIBP Location: lumbar (1-5) Lumbar: L4-L5 and L3-L4 Approach: midline Technique: CAROL ANN saline Guidance with: landmark technique}Epidural/Spinal Neoga and/or Catheter: Epidural/Spinal Kit: BBraun Needle Type: Tuohy Needle Gauge: 17 G Needle Length: 3.5 in (8.89 cm) Needle Insertion Depth: 6 Catheter Type: side hole Catheter Size: 19 G Catheter at Skin Depth: 12 Number of Attempts: 1 Test Dose: lidocaine 1.5% with epinephrine 1-to-200,000 Dose: 5 cc Catheter Securement Method: surgical tape, Tegaderm and clear occlusive dressingAssessment: Sensory Level: above T10 Thoracic: T8 Block Outcome: no apparent complications, positive pain relief, patient tolerated procedure well, patient satisfied, pain improved and a full evaluation is pending Procedure Assessment: patient tolerated procedure well with no complications 30905-8Sjfipkbsbdnrzx procedure dfmaHQ7197-83-27P59:42:32Anesthesiol ogy procedure noteTXT1.2.840.450837.1.13.104.2.7.2 .542108|[id number] for patient hvdj59828-6Aobpituo operation pgqyOOIQ-FUJXFOOJSOQVGUBA-DBDZCJSOSE [address] [id number] CNHIHBATDUQMRLXPDDLHDD8682-24-26X66: 42:321.2.840.503129.1.72.3.15|1.2.84 0.077630.1.13.104.2.7.2.727879_18671 38746 2022-11-08 [id number]:57:37Pro[facility](s): [facility] System 22:57:37 GASPAR BULB PLACEMENT. 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 Gaspar bulb firmly in place inside internal os. Catheter taped to patient leg under traction. Patient tolerated procedure well.Please use the table below for: SVE 05/01/-3 CERVIX: Consistency: moderately soft; Position: median, Station: -2Score 0 1 2 3 Dilation (cm) 0 cm 1-2 cm 3-4 cm >5 cm Effacement 0 - 30 % 40 - 50 % 60 - 70 % > 80 % Consistency of the cervix Stiff Moderately soft Very soft Position of the cervix Posterior Median Anterior Station -3 -2 -1 to 0 +1, +2 Edilia Hewitt MD ssociated attestation - Yousuf Birch MD - 11/09/2022 3:43 AM CDT Attestation:Agree with documentation of gaspar bulb placement as above.[facility] Birch [facility]/OBGYNPGY-233:43 XX67042-0Kwfngvkgh kxkeMZ4054191Nusu, Benjamin1.2.840.397074.1.13.104.2.7. 2.655689AzoqVztfmvhpPQ8132-48-49M94: 43:58Procedure noteTXT1.2.840.261515.1.13.104.2.7.2 .661797|[id number] for patient biot77164-2Novzhrfrv noteLNUT86 [address] [id number] ZEXCKPSRYWSAWMFHYLORMN8586-57-89Z15: 43:581.2.840.594991.1.72.3.15|1.2.84 0.409338.1.13.104.2.7.2.727879_18671 54841 Notes Date/Time Note Provider Source 2022-11-10 1701-08-31I88:21:48Formatting of this Dayanna Sutt on RN RIMB - 12:21:48 note might be different from the Health original.Problem: Falls, Risk ofGoal: Absence of fallsOutcome: Adequate for discharge Problem: Discharge Planning - PostpartumGoal: Adequate for dischargeOutcome: Adequate for dischargeGoal: Mood stableOutcome: Adequate for discharge Problem: Breast-feeding - IneffectiveGoal: Effective breast-feedingOutcome: Adequate for discharge 76792-5Xwsr of care cvsvJW1528-35-75W67:21:51Plan of care noteTXT1.2.840.311547.1.13.104.2.7.2. 451516|[id number] for patient honz83034-8LllfZJ435752627Hticx Sutton RNUTMBUTMB - [address] StreetTa[id number] IWOJADXFZGYPCTXIGVUPU6064-01-96K11:21 :511.2.840.986358.1.72.3.15|1.2.840.1 60398.1.13.104.2.7.2.727879_[id number] 4 2022-11-10 3846-86-93L43:03:35Formatting of this Awa Marquez RN [facility] - 03:03:35 note might be different from the Health [facility].Problem: Intrapartum process (including labor pain)Goal: Absence of or reduction of complications of laborOutcome: ResolvedGoal: Able to cope with painOutcome: ResolvedGoal: Adequate to move to next level of careOutcome: ResolvedGoal: Reduction in pain sensationOutcome: Resolved Problem: Falls, Risk ofGoal: Absence of fallsOutcome: Progressing as expected Problem: Discharge Planning - PostpartumGoal: Adequate for dischargeOutcome: Progressing as expectedGoal: Mood stableOutcome: Progressing as expected Problem: Breast-feeding - IneffectiveGoal: Effective breast-feedingOutcome: Progressing as expected 59854-7Fctb of care fgxiGJ9750-00-35Y22:03:55Plan of care noteTXT1.2.840.666691.1.13.104.2.7.2. 032813|[id number] for patient lawz09440-3GkwiHJ777846428Zpvhtzqg S Freeman RNUTMBUT32 [id number] AQZOPSJIJNYQOVIOQODQG0506-89-95C61:03 :551.2.840.548250.1.72.3.15|1.2.840.1 34313.1.13.104.2.7.2.727879_[id number] 2 2022-11-09 0931-23-08M62:19:53Formatting of this AN-ANESTHE SIOLOGY [facility] - 10:19:53 note is different from the ANESTHESIOLOGIST Heal th original.Patient: Lorenza Arthur Procedure Summary Date: 11/09/22 Room / Location: Anesthesia Start: 0122 Anesthesia Stop: 1004 Procedure: CENTRAL NEURAXIAL BLOCK Diagnosis: Scheduled Providers: Responsible Provider: Juaquin Daniel MD Anesthesia Type: General, Epidural ASA Status: 3 Anesthesia Type: No value filed.Last vitalsBP 106/67 (11/09/22929) Temp Pulse 84 (11/09/22929) Resp SpO2 99 % (11/09/22929) There were no known notable events for this encounter.Anesthesia Post EvaluationPatient location during evaluation: floorPatient participation: complete - patient participatedLevel of consciousness: awake and alertPain management: satisfactory to patientAirway patency: patentCardiovascular status: acceptable and blood pressure returned to baselineRespiratory status: acceptableHydration status: acceptable 25868-8Kwmcrhgmzbgvzy Postoperative evaluation and management cexfIG9763-32-61L71:20:05Anesthesiolo gy Postoperative evaluation and management noteTXT1.2.840.533209.1.13.104.2.7.2. 351245|[id number] for patient wshf67215-4Vhcslhkb operation noteLNAN-ANESTHESIOLOGY ANESTHESIOLOGISTAN-ANESTHESIOLOGY ANESTHESIOLOGISTUT86 [address] [id number] OWDAPWCAUQZUKKEYQUODJ4244-61-47R60:20 :051.2.840.662305.1.72.3.15|1.2.840.1 02827.1.13.104.2.7.2.727879_[id number] 0 2022-11-09 5151-73-47T41:11:24Formatting of this OG-OBSTETR [facility] & [facility] - 05:11:24 note might be different from the GYNECOLOGY Health original.Intrapartum Progress Note11/09/2022 5:11 AMSubjective: Patient has no complaintsObjective:Vitals last 24 hours:Temp: [36.9 ?C (98.4 ?F)-37.1 ?C (98.7 ?F)] 36.9 ?C (98.4 ?F)Pulse: [73-114] 82Resp: [16-20] 18BP: (90-120)/(50-75) 114/65Intake/Output :I/O this shift:In: 1048.2 Out: - No intake/output data recorded. AssessmentActive movement: YesMode: EFMUterine Activity:Mode: TocoContractions (number / 10 minute): 4Contraction duration (seconds): 50-90Contraction quality: MildResting tone: SoftMembrane StatusMembrane status: ArtificialRupture date: 11/09/22Rupture time: 0408Amniotic fluid color: Clear;PinkCervical Exam6 / 90 % / -2Assessment/Plan:Lorenza Arthur is a 22 year old at 38w0d OB Assessment: IOL (ICP), GBSOB Plan: s/p FB, Pit@2014, PCNAdditional Comments/Detail: Pt was having variables, repositioned, now having earliesRipening Agent: OxytocinRachel MD Hoang 11083-9Todnjyra ohhaVF0696-61-61Z13:11:30Progress noteTXT1.2.840.397347.1.13.104.2.7.2. 801836|[id number] for patient xoot53643-6YmhzGBJU-NQHNWYFNNV & GYNECOLOGY-OBSTETRICS & GYNECOLOGY[address] XzelIlvktqgriGbpkrbhalBXYG9141598623A HUHETAAYXGUWZXUJCFAWB4806-49-20Y46:11 :301.2.840.011821.1.72.3.15|1.2.840.1 03511.1.13.104.2.7.2.727879_[id number] 6 2022-11-09 8831-95-52P21:54:21Formatting of this AN-ANESTHE SIOLOGY [facility] - 00:54:21 note is different from the ANESTHESIOLOGIST Heal th original.Name/ MRN / Age / Gender:Lorenza Arthur, [id number] year old female BMI:Estimated body mass index is 31.41 kg/m? as calculated from the following: Height as of 11/08/22: 1.626 m (5' 4"). Weight as of 11/08/22: 83 kg (183 lb). Allergies:Patient has no known allergies. Last Vitals:BP Readings from Last 1 Encounters: 11/09/22 107/63 Pulse Readings from Last 1 Encounters: 11/09/22 95 SpO2 Readings from Last 1 Encounters: 11/09/22 99% Date of Surgery: 2Surgeon: Roque Watts MDProcedure: CENTRAL NEURAXIAL BLOCKOR [facility] Pre[facility] Eval (physical exam)Copied forward and updated from: 08/23/21 Anesthesia Preop: Chart Review and Uqvk-tk-AovkQFYI Communication: PONV Risk Factors: female and non-smokerAnesthesia HistoryAnesthesia History Negative(-) Hx of anesthetic complications(-) Hx of PONV(-) Fam hx of anesthetic complications(-) Hx of awareness during surgery(-) Hx of malignant hyperthermia(-) Hx of difficult airway(-) Pt reports no hx of difficult airway(-) Hx of difficult IV accessPrevious Anesthetics/AirwaysCardiovascularNega tive Cardiac ROSComments: 03/09/2021 ECGSinus tachycardiaOtherwise normal ECGWhen compared with ECG of 13-AUG-2020 09:46,No significant change has ycwmnmkw91/03/2021 ED Visit (X1 hour)DX: Chest pain, unspecified type. Anxiety ER Note: Pt c/o CP. Incident happened at work that scared her. She had intermittent pain since. When her pain comes on it is a throbbing chest pain similar to her previous anxiety type pains. Her pain was completely resolved with Toradol in the ER. CBC chemistry and D-dimer are all normal. EKG and telemetry are sinus rhythm.12/08/2019 TTEInterpretation SummaryEF 55-60%There is no comparison study available. The study was diagnostic quality.Left ventricular systolic function is normal.Diastolic function is normal.The right ventricle is normal in size and function.Right ventricular systolic pressure is 20-25 mmHg.12/06/2019 Seen by Cardiology for CP. Suspected musculoskeletal. PulmonaryNegative Pulmonary ROS(-) Asthma(-) Shortness of breath Neuro/MusculoskeletalComments: Cerebellopontine angle tumorNeurosarcoidosis- Dx 08/2021 after episode of severe headache, R unilateral ear and eye pain- Was scheduled for craniotomy resection in August 2021 but aborted due to head lice- Followed by Neuro, Rheumatology and MFM - As of 2021, mass effect and hematoma have decreased with progression of "plaque-like enhancement" suggestive of sarcoidosis or other inflammatory disorder- Pt endorses headache on admission, unchanged from baseline, does not desire medication - Plan:?Continue to f/u with neurosurgery after delivery, per note, planning to repeat MRI in 2-3 gttnjy3808/17/2021 CT HeadIMPRESSIONThe hyperdense lesion in the right cerebellopontine angle exerting mass effect on the adjacent ebony is unchanged in size or appearance from the presenting CT head. This likely represents a hematoma and could reflect nonaneurysmal subarachnoid hemorrhage; however, there was questionable enhancement demonstrated along the superior aspect of the lesion on the prior MRI and follow up to resolution is recommended to exclude an underlying mass.Of note, no mass was present on the MRI brain dated 03/24/2019.08/16/2021 Normal cerebral angiogram no evidence of aneurysms or fistula.08/15/2021 MR BrainIMPRESSIONAcute right cerebellopontine angle hemorrhage with mass effect on the right ventral ebony. Serpiginous enhancement is seen superiorly. Recommend conventional cerebral angiogram to exclude underlying vascular malformation. 08/14/2021 ED to Hosp Admission (X4 days)Admission Diagnosis: right cerebellopontine angle lesionDischarge Diagnosis: same 08/14/2021 ED Visit (X3 hours)Other headache syndrome (Primary)Cerebellopontine angle tumorMigraine without status migrainosus, not intractable, unspecified migraine typeH/o: Acute midline low back pain without sciatica. Acute bilateral thoracic back pain.?(-) TIA(-) CVA(+) Headaches, migraines(-) Seizures(-) Syncope(+) Psychiatric history (Panic attacks, adjustment insomnia, depression ) and other and depression(+) Anxiety(-) Scoliosis(-) Spinal Cord injury(+) Obesity GI/HepaticComments: Ongoing nausea, no vomiting for one week (08/15/2021)10/16/2020 CT AbdomenIMPRESSIONRedemonstrated enhancing focal lesions within the liver measuring 2.4 and 1.6 cm with persistent contrast uptake on the 20 minute delayed phase similar to the surrounding liver parenchyma, consistent with focal nodular hyperplasia.(+) GERD(+) Liver disease HematologyComments: 08/16/2021WBC 12.08?High? RBC 4.28 HGB 12.9 HCT 37.7 PLT 313 RenalComments: 08/16/2021K 3.7 BUN 10 CREATININE 0.58 SkinNegative Skin ROS Endo/Other Negative Endo/Other ROS Other OB/GYNComments: Lorenza Arthur is a 22 year old at 37w6d by u(8) who presents for induction of labor.?IOL- Pt reports irregular contractions, denies vaginal bleeding, leakage of fluid and decreased movement- SVE: 05/01/-3- Contractions (number / 10 minute): q2-3min- Plan: induction of labor with gaspar balloon and pitocin titration due to ICP ?ICP- Dx based on symptoms and bile acids: 36- Pt reports bilateral hand itchiness starting 11/05/2022- H/o ICP in previous - Not on medication? 09/24/22 09:43 11/05/22 11:31Bile Acids 8 36 (H)ALTv 24 24AST(SGOT) 28 27?GBS (+)- PCN intrapartum?Cerebellopontine angle tumorNeurosarcoidosis- Dx 08/2021 after episode of severe headache, R unilateral ear and eye pain- Was scheduled for craniotomy resection in August 2021 but aborted due to head lice- Followed by Neuro, Rheumatology and MFM - As of 2021, mass effect and hematoma have decreased with progression of "plaque-like enhancement" suggestive of sarcoidosis or other inflammatory disorder- Pt endorses headache on admission, unchanged from baseline, does not desire medication - Plan:?Continue to f/u with neurosurgery after delivery, per note, planning to repeat MRI in 2-3 months?Anxiety/Depression- Pt reports h/o anxiety and depression > 2 yrs ago- Denies recent symptoms- Reports stable mood, denies SI/HI on admission- Reassess ?Antepartum course reviewed- 1 h 113, sero negative, Rimmune, VZVimmune, HPV immune, A positive/IAT negative, GBS positive, Pap NILM 01/2020- H/H, plt: 9.2 / 30.3, 271 on 10/22/2022- PP control plan: undecided- [facility]?Fetus- Presentation on admission: cephalic - Anterior placenta - EFW: 3190 g, 48%tile- FHT reactive and reassuring- Normal anatomy scan PediatricPediatric N/A NeonatalNeonatal N/A Preoperative Medication InstructionsContinue taking all prescribed medications except:RODO inhibitors, ARBs, diuretics, all oral diabetes medicationsAnticoagulant Therapy: Defer to surgeonsInsulin: Take 1/2 dose the night prior to surgery. Hold on DOS. Phentermine: Alert [facility] anesthesiologistSGLT2 Inhibitors: "gliflozins" to be held for 3 days prior to elective surgeries MAC Cases: Continue taking RODO inhibitors and ARBs ASA ClassificationASA: 3 Current Medications:No current facility-administered medications for this visit. No current outpatient medications on file. Facility-Administered Medications Ordered in Other Visits Medication Dose Route Frequency Last Rate Last Admin lactated ringers IV infusion 500 mL 500 mL IV Infusion ONCE lactated ringers IV infusion 500 mL 500 mL IV Infusion PRN - SEE INSTRUCTIONS sodium citrate-citric acid (BICITRA) 500-334 mg/5 mL solution 30 mL 30 mL Oral PRE-PROCEDURE ONCE D5W-LR IV infusion 1,000 mL 1,000 mL IV Infusion TITRATE 119 mL/hr at 11/08/222240 Rate Change at 11/08/22 224 lactated ringers IV infusion 500 mL 500 mL IV Infusion PRN - SEE INSTRUCTIONS lidocaine 1% (PF) (XYLOCAINE) injection 0.3 mL 0.3 mL Infiltration PRN - SEE INSTRUCTIONS lidocaine 1% (XYLOCAINE) 10 mg/mL (1 %) injection 50 mL 50 mL Infiltration PRN - SEE INSTRUCTIONS oxytocin (PITOCIN) 30 units in NS 500 mL IV infusion 2-40 jill-units/min IV Infusion TITRATE 8 mL/hr at 11/08/222242 8 jill-units/min at 11/08/222242 penicillin GK 3 million units in NS 50 mL IV infusion (CNR) 3 Million Units IV Piggyback Q4H ABX 3,000,000 Units at 11/09/22 0000 sodium citrate-citric acid (BICITRA) 500-334 mg/5 mL solution 30 mL 30 mL Oral PRE-PROCEDURE ONCE Previous Surgeries: Past Surgical History: Procedure Laterality Date CHOLECYSTECTOMY 07/2020 INITIATE POST OP CHOLECYSTECTOMY CRITICAL PATHWAY IF NOT ALREADY DONE SO Anesthesia Physical ExamGeneralno apparent distress and alert and oriented x 3 Neuro/Psychneurological Nonfocal Dentalno notable dental hx Abdominal GI exam normal (+) abdomen soft and benign Airway Mallampati score:IIITM distance:> 5 cmNeck ROM: fullMouth opening:normal(+) Normal faciesTenderness to posterior neck on extension, no radicular symptoms. Extremity Normal extremity Pulmonarypulmonary exam normal and bilateral clear to auscultation Other Cardiovascularcardiovascular exam normalRhythm:RegularRate: Normal(-) no murmur and peripheral edema Anesthesia Plan ASA Status: 3 Plan discussed during pre-op evaluation: General, Epidural, Spinal and CSEAnesthetic plan on DOS: General and EpiduralAnesthesia plan discussed with: patient or representativePost-Operative Analgesia: routine analgesia & antiemeticsRecovery Plan: LDRAdditional comments: 66219-1Zdovtchrgfiyox Preoperative evaluation and management jqqtQP4686-25-21F08:19:34Anesthesiolo gy Preoperative evaluation and management noteTXT1.2.840.537092.1.13.104.2.7.2. 638542|[id number] for patient nmqg83336-2Crxiavdt operation noteLNAN-ANESTHESIOLOGY ANESTHESIOLOGISTAN-ANESTHESIOLOGY ANESTHESIOLOGISTUTMBUNM [facility] - [address] KsyoZdudnterhVpvvkvrdzKRUV5717252426O XRSEHTLRIGSELNTNMWING9870-30-09J86:19 :341.2.840.152830.1.72.3.15|1.2.840.1 12316.1.13.104.2.7.2.727879_[id number] 4 2022-11-09 0879-92-68D11:12:34Formatting of this [facility] - 00:12:34 note might be different from the Health original.Intrapartum Progress Note11/09/2022 12:12 AMSubjective: Patient complains of pain with contractionsObjective:Vitals last 24 hours:Temp: [36.9 ?C (98.4 ?F)-37.1 ?C (98.7 ?F)] 36.9 ?C (98.4 ?F)Pulse: [82-114] 82Resp: [16-20] 20BP: (102-117)/(58-75) 107/63Intake/Output :No intake/output data recorded.No intake/output data recorded. AssessmentActive movement: YesMode: EFMUterine Activity:Mode: TocoContractions (number / 10 minute): 4Contraction duration (seconds): 40-60Contraction quality: MildResting tone: SoftMembrane StatusMembrane status: IntactCervical Exam4 / 50 % / -3Assessment/Plan:Lorenza Arthur is a 22 year old at 38w0d OB Assessment: IOL (ICP), GBSOB Plan: FB/Pit@2014, PCNAdditional Comments/Detail: FB out. [place] [address]-2Iixpnjsm faicRB4386-13-14S58:12:45Progress noteTXT1.2.840.603170.1.13.104.2.7.2. 444287|[id number] for patient cmjr76252-1ByslYAITNHWFLU[id number] RBXJDYNCFPZZYXQXCMKAX4881-21-86W84:12 :451.2.840.909131.1.72.3.15|1.2.840.1 18450.1.13.104.2.7.2.727879_[id number] 1 2022-11-08 6005-93-97F14:03:26Formatting of this [facility] - 20:03:26 note might be different from the Health original.Problem: Intrapartum process (including labor pain)Goal: Absence of or reduction of complications of laborOutcome: Progressing as expectedGoal: Able to cope with painOutcome: Progressing as expectedGoal: Adequate to move to next level of careOutcome: Progressing as expectedGoal: Reduction in pain sensationOutcome: Progressing as expected 79558-8Tuae of care jtbkBK6297-61-79Z20:03:28Plan of care noteTXT1.2.840.732301.1.13.104.2.7.2. 957940|[id number] for patient acas96511-0BhahFRCRWXZRHT15 [id number] EMSQWJEQLKGUDDZMWJMIY8830-79-54K39:03 :281.2.840.815687.1.72.3.15|1.2.840.1 11617.1.13.104.2.7.2.727879_[id number] 6 2022-11-08 6840-68-04V83:22:41Formatting of this Josie Simmons RN [facility] - 13:22:41 note might be different from the Health original.1224: Explained to patient, per Arturo Bowen NP, patient to go to [facility] for induction of labor.Patient without complaints, reports +FM.Patient verbalizes that she can leave work early.She will go home to get her bag and bring her children to her parents house and than go to the hospital.Josie Felder RN 11/08/2022 1:24 PM 18710-2Xffmfhhil encounter IkieXO4706-79-82F13:25:17Telephone encounter NoteTXT1.2.840.628110.1.13.104.2.7.2. 911975|[id number] for patient ezqw48671-0JkthLS268467299Wbpppq Melchor V, RN[id number] AKWETSRFZOLBJPPCYFIPO0663-03-28Q45:25 :171.2.840.697489.1.72.3.15|1.2.840.1 87455.1.13.104.2.7.2.727879_186688844 4 2022-11-08 7791-14-66K35:01:17Formatting of this Manju gonzalezz [facility] - 12:01:17 note might be different from the Health original.Pt returning missed call from nurse. Please call back 15775-9Behsqvutf encounter ZczsMV9277-84-74A81:01:44Telephone encounter NoteTXT1.2.840.651491.1.13.104.2.7.2. 429780|[id number] for patient rhbc41331-3OdjoBG7006072Hcufp L Martinez[id number] NTXPBKAORQJHHRHTFNMRQ6099-99-95J40:01 :441.2.840.748672.1.72.3.15|1.2.840.1 60518.1.13.104.2.7.2.727879_186681408 5 2022-11-08 0578-62-96K31:21:20Formatting of this Jennifer swain [facility] - 11:21:20 note might be different from the Health original.Lorenza Arthur is a 22 year old female is returning missed call from the nurse. Please callback. Thank you. 58097-1Ygexopzkr encounter QpilXH2738-88-27V69:23:33Telephone encounter NoteTXT1.2.840.343938.1.13.104.2.7.2. 238238|[id number] for patient wexj82873-5IripAW104416133Vxswxr[id number] YFQCNOPPXMLCYIPVPPKCZ3586-37-10R87:23 :331.2.840.753961.1.72.3.15|1.2.840.1 69348.1.13.104.2.7.2.727879_186677600 8 2022-11-08 7808-03-60G99:52:10Formatting of this Flor Pitt [facility] - 08:52:10 note might be different from the Health original.Lorenza Arthur is a 22 year old femalePt states the itching is getting worst at night, asking if her results can be looked at.Please call [phone] (home) 20066-2Kzrpearym encounter UiupDE2075-86-19J37:53:17Telephone encounter NoteTXT1.2.840.669112.1.13.104.2.7.2. 349716|[id number] for patient clho45858-5DcztDJ438255163Vfcx Bazan Yoandy[id number] XIOOAQYWKADSOYAMURZZS7244-07-80B52:53 :171.2.840.847262.1.72.3.15|1.2.840.1 77554.1.13.104.2.7.2.727879_186658736 2 2022-11-04 0544-27-59J11:46:09Formatting of this Maritza Wisdom RN [facility] - 14:46:09 note might be different from the Health original.Spoke to patient regarding symptoms. Itching worse at night. Reports itching started Friday11/01/22Advised with provider Renetta ALTAMIRANO advised to have patient keep pn appt as schedule for tomorrow morning with high risk. Advised patient to inform high risk provider about itching symptoms for further testing. Patient verbalizes understanding.Patient reports +fmER warnings/labor warnings reviewed with patient. Questions/concerns answered. 85314-7Fxwnljyas encounter FihkIU8095-41-15G65:50:56Telephone encounter NoteTXT1.2.840.374230.1.13.104.2.7.2. 017911|[id number] for patient exdb54127-5BupaBI570773020Afpwitazw Gutierrez UTMB[address]TXTX[address]7555U QWSQXKPJXOARGBQANQUID7486-69-94V57:50 :561.2.840.441358.1.72.3.15|1.2.840.1 09734.1.13.104.2.7.2.727879_[id number] 2 2022-11-04 2338-80-81M91:07:05Formatting of this Sondra Garg Darlene chapman [facility] - 08:07:05 note might be different from the Health original.Lorenza Arthur is a 22 year old lmvmaj24 wks 2 days Pt states her hands, feet and body started itching on Friday and gets worse at night. Hands and feet itch worse. Pt states last she had cholestasis and had to deliver early and that was a symptom. Please call pt at [phone] (home) 91581-6Ulhfmsgea encounter UaicYV8780-72-67N58:11:19Telephone encounter NoteTXT1.2.840.608754.1.13.104.2.7.2. 499862|[id number] for patient dsec35461-8JbjtYF845801317Wird A Cloyd[address] OstsVekjfpmswXebpzlcuxMONS2700720162L BTUBVZHFMOCUKWCWTHGZM1045-02-37T92:11 :191.2.840.983132.1.72.3.15|1.2.840.1 06960.1.13.104.2.7.2.727879_186232514 5 2021-08-13 UA43009-971974041565-94-09I17:20:00 [facility] ([facility]EMERGENCY PROVIDER REPORTREPORT#:[id number] REPORT STATUS: SignedDATE:08/13/21 TIME: 1420 PATIENT: LORENZA ARTHUR UNIT #: [id number]#: [id number] ROOM/BED:AGE: 21 SEX: F PCP PHYS: Columba Huber MDSERVICE AUTHOR: Ivan Valdovinos MD LOCATION: [facility] * ALL edits or amendments must be made on the electronic/computer document * HPI-Headache GeneralConfirmed Patient YesPatient Type New patientInitial Greet Date/Time 08/13/21 1404 PresentationChief Complaint HeadacheHx Obtained From Patient, Prior medical recordsSudden in Onset? NoOnset Occurred ChronicSymptom Duration Since onsetSeverity: Onset Moderate Free Text HPI NotesFree Text HPI Qgsyn32-ovrs-dit female presents for evaluation as a transfer from [facility] for headache. Patient reports symptoms began months ago, describes a sharp, right-sided parietal headache radiating to her eye and ear. Symptoms were worse todaythan usual so she presented to the outside ER. 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 Review of Systems ROS StatementsAll systems rev neg except as marked. Focused Review of SystemsConstitutionalDenies: Chills, Fever. NeurologicReports: Headache. Denies: Focal weakness, Lightheaded, Numbness. Past Medical History - AdultStated Complaint BEATTY WITH BRAIN MASSAllergiesCoded Allergies:No Known Allergies (08/13/21) Review of Nursing Notes Rev avail, and agreeSmoking status: Smoking status for patients 13 years old or older: Unknown,if ever smoked Physical Exam Vital SignsVital SignsFirst Documented: Result Date Time Pulse Ox 99 08/13 1403 B/P 98/55 08/13 1403 B/P Mean 69 08/13 1403 O2 Delivery Room air 08/13 1403 Temp 37.1 08/13 1403 Pulse 84 05/ 1403 Resp 18 / 1403 Last Documented: Result Date Time Pulse Ox 99 08/13 1626 B/P 102/56 08/13 1626 B/P Mean 71 08/13 1626 O2 Delivery Room air 08/13 1626 Temp 37.2 08/13 1626 Pulse 81 08/13 1626 Resp 18 08/13 1626 Review of Vital Signs Reviewed Focused PEGeneral/Const General/Const Awake, Alert, No acute distressMS Head Head Atraumatic, NormocephalicEyes Eyes Atraumatic, EOMIEars/Nose/Throat Ears/Nose/Throat Atraumatic, Airway patentMS Neck Neck Supple, Full range of motionResp/Chest Respiratory/Chest Breath sounds = bilat, No respiratory distress, No rales, No rhonchi, No wheezing, No stridorCardiovascular Cardiovascular Heart rate NL, Regular rhythm, Heart sounds NLAbdomen/GI Abdomen/GI Soft, Non-tender, No distentionSkin Skin Warm, Dry, IntactNeurologic Neurologic Speech NL, No motor deficits, CN II - XII intact Interpretation Diagnostics Lab Results InterpretationConsiderations Reviewed prior records Lab Imaging StatementOutside laboratory radiographic studies reviewed and considered in the medicaldecision-making. Re-Evaluation MDM Free Text MDM NotesFree Text MDM [id number] female presents for evaluation of headache with small brain mass found on CT as above. Spoke with neurosurgery who reviewed the imaging, states patient does require MRI with and without contrast as an outpatient but this does not need to be done today and it is unlikely to be related to her headache which has resolved following typical migraine treatment. Will discharge home with outpatient follow-up for further management. I have discussed the results of all imaging studies with the patient who voiced understanding and is comfortable with plan for discharge and follow-up. All questions answered. ED CourseMedication(s) OrderedMedication(s) Ordered:Antihistamine Drugs Sig/Keena Start time Last Medication Dose Route Stop Time Status Admin Diphenhydramine HCl 25 MG X1ED STA 08/13 1430 DC 08/13 IV 08/13 1431 1443 Central Nervous System Agents Sig/Keena Start time Last Medication Dose Route Stop Time Status Admin Acetaminophen 1,000 MG X1ED STA 08/13 1428 DC 05/ PO 08/13 1429 1442 Ketorolac 30 MG X1ED STA 08/13 1427 DC 08/13 Tromethamine IV 08/13 1428 1444 Electrolytic, Caloric, And Yuliya Sig/Keena Start time Last Medication Dose Route Stop Time Status Admin Sodium Chloride 1,000 ML BOLUS ONCE ONE 08/13 1430 DC 08/13 IV 08/13 1431 1444 Gastrointestinal Drugs Sig/Keena Start time Last Medication Dose Route Stop Time Status Admin Metoclopramide HCl 10 MG X1ED STA 08/13 1427 DC / IV 08/13 1428 1443 Ondansetron HCl 4 MG X1ED STA 08/13 1425 DC / IV / 1426 1443 ConsultationConsultation Referral/Consult Name Kaushik Sutherland MD Transmission Engineer Called Neurosurgery Requested Call Time 1431 Requested Call Date 08/13/21 Call Returned Call returned Call Returned Time 1436 Call Returned Date 08/13/21 Transmission Engineer Will see in office Free Text Consult NotesOutside imaging reviewed, CT finding is unlikely to be related to patient's headache and she can undergo MRI with and without contrast as an outpatient Patient Discharge Departure Vital Signs/ConditionVital SignsFirst Documented: Result Date Time Pulse Ox 99 08/13 1403 B/P 98/55 / 1403 B/P Mean 69 08/13 1403 O2 Delivery Room air 08/13 1403 Temp 37.1 05/ 1403 Pulse 84 05/ 1403 Resp 18 / 1403 Last Documented: Result Date Time Pulse Ox 99 05 1626 B/P 102/56 08/13 1626 B/P Mean 71 08/13 1626 O2 Delivery Room air 08/13 1626 Temp 37.2 / 1626 Pulse 81 05/ 1626 Resp 18 08/13 1626 All vital signs available at the time of this entry have been reviewed. Condition Stable Clinical ImpressionClinical ImpressionPrimary Impression: HeadacheSecondary Impressions: Brain mass Disposition DecisionDischarge )( Discharged to Home Yes )( Time 1600 )( Date 08/13/21 Discharge/Care PlanPatient Instructions ED Brain Tumor, ED Headache UnspecifiedAdditional InstructionsPlease follow-up with your PCP as soon as possible to schedule your MRI. 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 Recommend MRI of the brain with and without contrast for further evaluation.ReferralsProvider Referral: Kaushik Sutherland MD Follow-Up: Call for appointment Address: [address] [place] [address] [address] [address] Provider Group: PRIMARY CARE Follow-Up: 2-3 Days at 2023RPT #:[id number] OF REPORTEDEmergency department [id number]:20:[id number] for patient [id number]:24:13 2021-08-13 [id number]:07:0005 [facility] 12:07:00 [id number] [address] PATIENT NAME: LORENZA ARTHUR ADMIT DATE: 08/13/21ACCOUNT NO: [id number] ROOM NO: AGE: 21 REPORT TYPE: eELECTROCARDIOGRAM SEX: F ADMITTING PHYSICIAN: ATTENDING PHYSICIAN: Order:[id number] Reason : (Not Selected) Test Date/Time Stamp:FriAug 13 2021 12:07:39Blood Pressure : 114/072 mmHGVent. Rate : 086 BPM Atrial Rate : 086 BPM P-R Int : 132 ms QRS Dur : 086 ms QT Int : 372 ms P-R-T Axes : 035 073 052 degrees QTc Int : 445 ms Normal sinus rhythmNormal ECGNo previous ECGs availableConfirmed by GUZMAN ROA MD ([id number]) on 08/20/2021 11:50:18 AM Referred By: Iesha Cast Confirmed by:GUZMAN ROA MD at 1150 PATIENT NAME: LORENZA ARTHUR .CPS2 [id number] for patient [id number]:50:52 2021-08-13 [id number]:02:00 [facility] 12:02:00 [facility] ([facility])EMERGENCY PROVIDER REPORTREPORT#:[id number] REPORT STATUS: SignedDATE:08/13/21 TIME:1202 PATIENT: LORENZA ARTHUR UNIT #: [id number]#: [id number] ROOM/BED:: 98 AGE: 21 SEX: F PCP PHYS: Dank Kwok MDSERVICE AUTHOR: Iesha Cast DO * ALL edits or amendments must be made on the electronic/computer document * HPI-Headache GeneralInitial Greet Date/Time 08/13/21 0916 PresentationChief Complaint HeadacheSudden in Onset? NoSeverity: Onset Mild Free Text HPI NotesFree Text HPI NotesThe patient is a 21-year-old female with no severe past medical history who is presenting with a headache. Of note, the patient has experienced a daily headache for several months. She denies experiencing alleviating or aggravatingfactors. This began while she was sitting at work today. She denies experiencing visual changes. It was associated with nausea and 1 episode of nonbilious, nonbloody emesis. No recent head trauma. Risk-Headache Risk StratificationStroke Risk factors reviewed)( Subarachnoid Hemorrhage Risk factors reviewed)( IC Mass Lesion Risk factors reviewed Review of Systems ROS StatementsAll systems rev neg except as marked. Past Medical History - AdultStated Complaint HEADACHEAllergiesCoded Allergies:No Known Allergies (08/13/21) Physical Exam Vital SignsVital SignsFirst Documented: Result Date Time Pulse Ox 100 08/13 0915 B/P 118/74 08/13 914 B/P Mean 88 08/13 914 Temp 36.9 08/13 914 Pulse 77 08/13 09 Resp 18 08/13 914 O2 Delivery Room air 08/13 111 Last Documented: Result Date Time Pulse Ox 100 08/13 1119 B/P 106/77 08/13 1119 B/P Mean 86 08/13 1119 O2 Delivery Room air 08/13 111 Pulse 80 08/13 1119 Resp 16 08/13 111 Temp 36.9 08/13 0815 Review of Vital Signs Reviewed Focused PEGeneral/Const General/Const Awake, Alert, No acute distress, Well appearingMS Head Head Atraumatic, NormocephalicEyes Eyes Atraumatic, PERRL, EOMI, No nystagmusEars/Nose/Throat Ears/Nose/Throat Atraumatic, Airway patent, Mucous membranes moist, Pharynx NLMS Neck Neck Atraumatic, Supple, No meningismusResp/Chest Respiratory/Chest Atraumatic, Breath sounds NL, Breath sounds = bilat, No respiratory distressCardiovascular Cardiovascular Heart rate NL, Regular rhythm, Heart sounds NL, No gallopAbdomen/GI Abdomen/GI Atraumatic, Soft, Non-tender, McBurney's non-tenderSkin Skin Atraumatic, Color NL, No rash, WarmNeurologic Neurologic Oriented X3, Speech NL, No motor deficits, No sensory deficits Interpretation Diagnostics Lab Results InterpretationResultsLaboratory Tests 08/13/21931:[Embedded Image Not Available]Laboratory Tests: 08/14 931 Chemistry Sodium (134 - 147 mmol/L) 139 Potassium (3.4 - 5.0 mmol/L) 3.4 Chloride (100 - 108 mmol/L) 110 H Carbon Dioxide (21 - 32 mmol/L) 24 Anion Gap (4.0 - 15.0 GAP calc) 5.0 BUN (7 - 18 MG/DL) 11 Creatinine (0.6 - 1.0 MG/DL) 0.7 Glomerular Filtr Rate (>60 estGFR) >=60 max estimate Glucose (70 - 110 MG/DL) 124 H Calcium (8.5 - 10.1 MG/DL) 8.7 Hematology WBC (3.5 - 11.0 K/mm3) 7.5 RBC (4.70 - 6.10 M/mm3) 4.01 L Hgb (10.4 - 14.9 G/DL) 11.9 Hct (31.5 - 44.1 %) 35.3 MCV (84.5 - 98.6 Fl) 88.0 MCH (27.0 - 34.2 pg) 29.7 MCHC (31.5 - 34.0 G/DL) 33.7 RDW (11.5 - 14.5 SD) 12.8 Plt Count (150 - 450 K/mm3) 273 MPV (7.0 - 10.5 fL) 9.10 Neut % (Auto) (40 - 76 %) 72.5 Lymph % (Auto) (20.5 - 51.1 %) 19.6 L [place] % (Auto) (1.7 - 9.3 %) 6.8 Eos % (Auto) (0.0 - 6.0 %) 0.7 Baso % (Auto) (0.0 - 2.0 %) 0.1 Neut # (Auto) (1.8 - 7.6 K/mm3) 5.4 Lymph # (Auto) (0.6 - 3.2 K/mm3) 1.5 [place] # (Auto) (0.3 - 1.1 K/mm3) 0.5 Eos # (Auto) (0.0 - 0.4 K/mm3) 0.1 Baso # (Auto) (0.0 - 0.1 K/mm3) 0.0 Abs Immat Gran (auto) (0.00 - 0.03 x10 3/uL) 0.02 Add Manual Diff (CRITERIA DIFF/SCN) NO Immature Gran % (0.0 - 5.0 %) 0.3 Nucleated RBC % (0.0 - 1.0 /100WBC%) 0.0 Miscellaneous Maternal Serum HCG (0 - 6 mi-IU/ML) < 1 Recent Impressions:CAT SCAN - CT HEAD/BRAIN W/O CONT 08/13 949 Report Impression - Status: SIGNED Entered: 08/13/2021 1009 IMPRESSION: 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 Recommend MRI of the brainwith and without contrast for further evaluation.Impression By: Kaushik - SALUD FREEMAN M.D. ECG #1 InterpretationECG Documented in MUSE YesDate 08/13/21Time 1207Interpreted by ED physicianNL ECG Interpretation Normal rate, Normal sinus rhythm, No acute ischemic changes, No STEMI, Normal QRSRate 86 Re-Evaluation MDM )( Re-Evaluation/Progress #1Text/Dict NoteThe patient's imaging results were discussed with the patient. She will be transferred to another facility for higher level of care since we do not have neurosurgery on staff. Patient stable for transfer.Time of Re-Eval 1215)( Re-Eval Status Improved ED CourseMedication(s) OrderedMedication(s) Ordered:Central Nervous System Agents Sig/Keena Start time Last Medication Dose Route Stop Time Status Admin Morphine Sulfate 4 MG ONCE ONE 08/13 1145 DC 08/13 IV 08/13 1146 1138 Electrolytic, Caloric, And Yuliya Sig/Keena Start time Last Medication Dose Route Stop Time Status Admin Sodium Chloride 1,000 ML X1ED STA 08/13 0917 DC 08/13 IV 08/13 1017 0931 Gastrointestinal Drugs Sig/Keena Start time Last Medication Dose Route Stop Time Status Admin Metoclopramide HCl 10 MG ONCE ONE 08/13 0830 DC / IV 08/13 0931 0932 Patient Discharge Departure Vital Signs/ConditionVital SignsFirst Documented: Result Date Time Pulse Ox 100 08/13 0815 B/P 118/74 08/13 914 B/P Mean 88 08/13 914 Temp 36.9 08/13 914 Pulse 77 08/13 914 Resp 18 08/13 914 O2 Delivery Room air 08/13 1119 Last Documented: Result Date Time Pulse Ox 100 08/13 1119 B/P 106/77 08/13 1119 B/P Mean 86 08/13 1119 O2 Delivery Room air 05/09 111 Pulse 80 08/13 1119 Resp 16 08/13 111 Temp 36.9 08/13 914 All vital signs available at the time of this entry have been reviewed. Clinical ImpressionClinical ImpressionPrimary Impression: HeadacheSecondary Impressions: PERIPONTINE MASS Disposition DecisionTransfer )( Request Time 1202 )( Request Date 08/13/21 Call Returned Time 1221 Spoke with: Attending physician Receiving [facility] Transfer Accepted Yes Accepted by:Dr. Sutherland at 1253 RPT #: [id number] OF REPORTEDEmergency department [id number]:02:00L.[id number] for patient [id number]:54:09
[2023-03-05] MEDS ORDERED: ONDANSETRON 4 MG/2 ML VIAL ONE ×2 (05:09→05:59)
[2023-03-05] MEDS ORDERED: NA CHLORIDE 0.9% 1,000 ML ONE (05:10)
[2023-03-05 05:23] LABS: Absolute Lymphocytes (CBC) 0.3 K/uL (0.7-4.9); Hematocrit 35.8 % (36.0-45.0); Lymphocytes % 4.4 % (15.3-44.8); MCV 88.1 fL (80-100); MPV 6.7 fL (7.6-11.3); Platelets 241 thou/uL (152-406); RBC Red Blood Cell Count 4.06 M/uL (3.86-4.86)
[2023-03-05 06:01] LABS: Albumin 3.6 g/dL (3.4-5.0); Bilirubin Total 1.2 mg/dL (0.2-1.0); Potassium 3.3 mEq/L (3.5-5.1); Protein, Total 7.1 g/dL (6.4-8.2); Troponin High Sensitivity 4.1 pg/mL (<58.9)
[2023-03-05 06:54] LABS: Blood Morphology Comment NOT SEEN (NOT SEEN); Platelet Estimate ADEQ
[2023-03-05 07:09] LABS: Specific Gravity > 1.030 (1.005-1.030)
[2023-03-05 07:38] LABS: Specific Gravity > 1.030 (1.005-1.030); Urine Bacteria <20 /HPF (<20); Urine Bilirubin NEGATIVE (Negative); Urine Blood Negative (Negative); Urine Clarity Turbid (Clear); Urine Color Yellow (Yellow); Urine Crystals Unidentified Few /HPF (None Seen); Urine Glucose NEGATIVE (Negative); Urine Mucus Slight /HPF (None Seen); Urine Protein 1+ (Negative); Urine RBC <5 /HPF (None Seen); Urine Urobilinogen 1+ (Normal); Urine WBC Clump Rare /HPF (None Seen); Urine pH 6.5 (5.0-7.0)
--- NOTE | 2023-03-05 07:58 | RAD REPORT ---
EXAM DESCRIPTION: CT - Abdomen Pelvis W Contrast - 03/05/2023 7:42 am CLINICAL HISTORY: Abdominal pain COMPARISON: 2020 TECHNIQUE: Computed axial tomography of the abdomen pelvis was obtained. 100 cc Isovue-300 was admin istered intravenously. Oral contrast was not requested which limits evaluation of bowel and appendix All CT scans are performed using dose optimization technique as appropriate and may include automated exposure control or mA/KV adjustment according to patient size. FINDINGS: Previously described hepatic mass not visualized on this examination likely due to arteria l phase not being obtained. Liver has a homogeneous density. Spleen upper limits normal size. Cholecystectomy Pancreas, adrenals and kidneys unremarkable. Appendix not visualized. No adnexal mass. No evidence of diverticulitis. IMPRESSION: No acute abnormality is displayed.
--- NOTE | 2023-03-05 08:37 | EDPHYS ---
Physician Documentation [facility] Name: Dany James Age: 23 yrs Sex: Female : 2000 Arrival Date: 03/05/2023 Time: 04:41 Bed 20 Private MD: ED Physician David Garcia HPI: 03/05 05:00 This 23 yrs old Female presents to ER via EMS with complaints of nausea and rt vomiting. 05:00 Patient presents to the ED with nausea, vomiting since about 7. She has not had rt anything to eat since then. She was reporting epigastric to chest pain that radiates to the back. States she has a headache from the vomiting. Denies having headache prior to the vomiting. Denies other acute complaints, symptoms are moderate severity, no other aggravating or alleviating factors.. 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 - Social history:: Smoking status: Patient denies any tobacco usage or history of. Patient/guardian denies using alcohol, street drugs. - Family history:: not pertinent. ROS: 05:00 Constitutional: Negative for fever, chills, and weight loss, Respiratory: Negative for rt shortness of breath, cough, wheezing, and pleuritic chest pain, MS/Extremity: Negative for injury and deformity, Skin: Negative for injury, rash, and discoloration, Psych: Negative for depression, anxiety, suicide ideation, homicidal ideation, and hallucinations, 05:00 Cardiovascular: Positive for chest pain, Negative for edema, 05:00 Abdomen/GI: Positive for nausea, vomiting, 05:00 Back: Positive for pain at rest, Negative for injury or acute deformity, Exam: 05:00 Constitutional: This is a well developed, well nourished patient who is awake, alert, rt and in no acute distress. Head/Face: Normocephalic, atraumatic. Chest/axilla: Normal chest wall appearance and motion. Nontender with no deformity. No lesions are appreciated. Cardiovascular: Regular rate and rhythm with a normal S1 and S2. No gallops, murmurs, or rubs. Normal PMI, no JVD. No pulse deficits. Respiratory: Lungs have equal breath sounds bilaterally, clear to auscultation and percussion. No rales, rhonchi or wheezes noted. No increased work of breathing, no retractions or nasal flaring. Skin: Warm, dry with normal turgor. Normal color with no rashes, no lesions, and no evidence of cellulitis. MS/ Extremity: Pulses equal, no cyanosis. Neurovascular intact. Full, normal range of motion. Neuro: Awake and alert, GCS 15, oriented to person, place, time, and situation. Cranial nerves II-XII grossly intact. Motor strength 5/5 in all extremities. Sensory grossly intact. Cerebellar exam normal. Normal gait. Psych: Awake, alert, with orientation to person, place and time. Behavior, mood, and affect are within normal limits. 05:00 ECG was reviewed by the Attending Physician. 05:00 Abdomen/GI: Mild tenderness to the epigastrium without rebound, guarding, distention, Vital Signs: 04:46 BP 107 / 67; Pulse 91; Resp 18; Temp 97.5; Pulse Ox 99% ; Weight 68.04 kg; Height 5 ft. jj7 4 in. ; 05:50 BP 100 / 68; Pulse 88; Resp 16; Pulse Ox 99% ; jj7 06:49 BP 100 / 59; Pulse 76; Resp 16; Pulse Ox 100% ; jj7 07:38 BP 105 / 59; Pulse 78; Resp 20 S; Pulse Ox 97% on R/A; kc6 08:12 BP 108 / 73; Pulse 65; Resp 16 S; Pulse Ox 99% on R/A; kc6 04:46 Body Mass Index 25.75 (68.04 kg, 162.56 cm) jj7 MDM: 04:45 Patient medically screened. rt 07:03 Transition of care: Care assumed from Rigoberto Yanez MD. ms3 08:[address] vs Pancreatitis vs abdominal pain. Data reviewed: vital ms3 signs, nurses notes, lab test result(s), EKG, radiologic studies, CT scan, plain films, and as a result, I will discharge patient. Consideration of Admission/Observation Escalation of care including admission/observation considered. Heart score = 0. I considered the following discharge prescriptions or medication management in the emergency department Medications were administered in the Emergency Department. See MAR. Independent interpretation of the following test(s) in the Emergency Department EKG: See my EKG interpretation above. Care significantly affected by the following Social Determinants of Health: Poor access to healthcare and/or lack of insurance. Scoring Tools HEART Score: History: Slightly Suspicious (0) ECG: Normal (0) Age: < or = 45 years (0) Risk Factors: No Risk factors known (0) Troponin: < or = 1 x Normal limit (0) Total Score = 0. Counseling: I had a detailed discussion with the patient and/or guardian regarding the historical points, exam findings, and any diagnostic results supporting the discharge/admit diagnosis, lab results, radiology results, the need for outpatient follow up, to return to the emergency department if symptoms worsen or persist or if there are any questions or concerns that arise at home. Special discussion: Based on the patient's history, exam, and Dx evaluation, there is no indication for emergent intervention or inpatient Tx. It is understood by the patient/guardian that if the Sx's persist or worsen they need to return immediately for re-evaluation. ED course: Discussed chest x-ray, CT abdomen pelvis, labs, EKG with patient. Patient to follow-up with primary care physician in 2 to 3 days. Patient understands and agrees with plan. All questions were answered. Return precautions discussed include worsening symptoms, or any other concerns. On reevaluation patient symptoms improved, patient is alert and orient x4, no apparent distress, nontoxic-appearing, speaking full sentences. 03/05 04:45 Order name: CBC with Diff; Complete Time: 07:02 rt 03/05 04:45 Order name: CMP; Complete Time: 06:32 rt 03/05 04:45 Order name: Lipase; Complete Time: 06:32 rt 03/05 04:45 Order name: Test, Urine; Complete Time: 08:31 rt 03/05 04:45 Order name: Urinalysis w/ reflexes; Complete Time: 08:31 rt 03/05 04:45 Order name: Troponin High Sensitivity; Complete Time: 06:32 rt 03/05 05:26 Order name: Manual Differential; Complete Time: 07:02 EDMS 03/05 06:54 Order name: Test, Serum; Complete Time: 08:58 rt 03/05 04:45 Order name: CT Abd/Pelvis - IV Contrast Only; Complete Time: 08:31 rt 03/05 04:45 Order name: Chest Single View XRAY rt 03/05 04:45 Order name: EKG; Complete Time: 04:45 rt 03/05 04:45 Order name: IV Saline Lock; Complete Time: 05:05 rt 03/05 04:45 Order name: Labs collected and sent; Complete Time: 05:05 rt 03/05 04:45 Order name: EKG - Nurse/Tech; Complete Time: 05:22 rt EC:00 Rate is 81 beats/min. Rhythm is regular, Normal Sinus Rhythm with No ectopy. QRS [place] rt is Normal. AR interval is normal. QRS interval is normal. QT interval is normal. No Q waves. T waves are Normal. No ST changes noted. Interpreted by me. Administered Medications: 05:04 Drug: NS 0.9% IV 1000 ml IV at 1 bolus Per protocol; 1000 mL bolus Route: IV; Rate: 1 jj7 bolus; Site: right antecubital; 07:00 Follow up: Response: No adverse reaction; IV Status: Completed infusion; IV Intake: kc6 1000ml 05:04 Drug: Ondansetron IVP 4 mg IVP once; over 2 minutes Route: IVP; Site: right antecubital;jj7 07:00 Follow up: Response: No adverse reaction; Nausea is decreased kc6 05:47 Drug: Ondansetron IVP 4 mg IVP once; over 2 minutes Route: IVP; Site: right antecubital;jj7 07:00 Follow up: Response: No adverse reaction; Nausea is decreased kc6 Disposition Summary: 03/05/23 08:37 Discharge Ordered Notes: Location: Home ms3 Condition: Stable ms3 Diagnosis - Upper abdominal pain, unspecified ms3 - Chest pain, unspecified ms3 Followup: ms3 - With: Maximo Stevens DO - When: 2 - 3 days - Reason: Recheck today's complaints Discharge Instructions: - Discharge Summary Sheet ms3 - Abdominal Pain, Adult ms3 - Nonspecific Chest Pain, Adult ms3 Forms: - Medication Reconciliation Form ms3 - Thank You Letter ms3 - Antibiotic Education ms3 - Prescription Opioid Use ms3 - Patient Portal Instructions ms3 - Leadership Thank You Letter ms3 - Work release form kc6 Prescriptions: - ondansetron 4 mg Oral Tablet,disintegrating - take 1 tablet ORAL route every 8 hours; 15 tablet; Refills: 0, Product ms3 Selection Permitted Signatures: Dispatcher [employer] EDDavid Silver, DO ms3 Dash Rogers RN RN jj7 Rigoberto Yanez MD MD rt Leslie Hendricks RN kc6
--- NOTE | 2023-03-05 08:37 | ER ---
Nurse's Notes [facility] Name: Dany James Age: 23 yrs Sex: Female : 2000 Arrival Date: 03/05/2023 Time: 04:41 Bed 20 Private MD: Diagnosis: Upper abdominal pain, unspecified;Chest pain, unspecified Presentation: 03/05 04:46 Chief complaint: Patient states: N/V SINCE 7P. CAUSING HEADACHE, CHEST PAIN AND BACK jj7 PAIN. Coronavirus screen: At this time, the client does not indicate any symptoms associated with coronavirus-19. Ebola Screen: No symptoms or risks identified at this time. Initial Sepsis Screen: Does the patient meet any 2 criteria? No. Patient's initial sepsis screen is negative. Does the patient have a suspected source of infection? No. Patient's initial sepsis screen is negative. Risk Assessment: Do you want to hurt yourself or someone else? Patient reports no desire to harm self or others. Onset of symptoms was March 04, 2023. 04:46 Method Of Arrival: EMS: [facility] jj7 04:46 Acuity: [id number] 3 jj7 Triage Assessment: 04:49 General: Appears in no apparent distress. uncomfortable, Behavior is calm, cooperative, jj7 appropriate for age. Pain: Complains of pain in chest. GI: Reports nausea, vomiting. 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 - Social history:: Smoking status: Patient denies any tobacco usage or history of. Patient/guardian denies using alcohol, street drugs. - Family history:: not pertinent. Screenin:[facility] ED Fall Risk Assessment (Adult) History of falling in the last 3 months, jj7 including since admission No falls in past 3 months (0 pts) Confusion or Disorientation No (0 pts) Intoxicated or Sedated No (0 pts) Impaired Gait No (0 pts) Mobility Assist Device Used No (0 pt) Altered Elimination No (0 pt) Score/Fall Risk Level 0 - 2 = Low Risk Oriented to surroundings, Maintained a safe environment. Abuse screen: Denies threats or abuse. Nutritional screening: No deficits noted. Tuberculosis screening: No symptoms or risk factors identified. Assessment: 04:49 Reassessment: SEE TRIAGE ASSESSMENT. jj7 05:40 Reassessment: MD INFORMED OF ONGOING NAUSEA. MED ORDERED Patient states symptoms have jj7 not improved. 07:00 Reassessment: Patient appears in no apparent distress at this time. Patient and/or [facility] family updated on plan of care and expected duration. Pain level reassessed. Patient is alert, oriented x 3, equal unlabored respirations, skin warm/dry/pink. 07:04 Reassessment: REPORT GIVEN TO LESLIE SCOTT. j7 08:00 Reassessment: Patient appears in no apparent distress at this time. No changes from [facility] previously documented assessment. Patient and/or family updated on plan of care and expected duration. Pain level reassessed. Patient is alert, oriented x 3, equal unlabored respirations, skin warm/dry/pink. Vital Signs: 04:46 BP 107 / 67; Pulse 91; Resp 18; Temp 97.5; Pulse Ox 99% ; Weight 68.04 kg; Height 5 ft. jj7 4 in. ; 05:50 BP 100 / 68; Pulse 88; Resp 16; Pulse Ox 99% ; jj7 06:49 BP 100 / 59; Pulse 76; Resp 16; Pulse Ox 100% ; jj7 07:38 BP 105 / 59; Pulse 78; Resp 20 S; Pulse Ox 97% on R/A; kc6 08:12 BP 108 / 73; Pulse 65; Resp 16 S; Pulse Ox 99% on R/A; kc6 04:46 Body Mass Index 25.75 (68.04 kg, 162.56 cm) jj7 ED Course: 04:43 Patient arrived in ED. rt 04:45 Rigoberto Yanez MD is Attending Physician. rt 04:46 Dash Rogers, SONIA is Primary Nurse. jj7 04:49 Triage completed. jj7 04:49 Arm band placed on right wrist. Patient placed in an exam room, on a stretcher. jj7 04:51 Patient has correct armband on for positive identification. Bed in low position. Call jj7 light in reach. Side rails up X 1. 05:00 Inserted saline lock: 20 gauge in right antecubital area, using aseptic technique. jj7 Blood collected. 05:04 Troponin High Sensitivity Sent. jj7 05:05 CBC with Diff Sent. jj7 05:05 CMP Sent. jj7 05:05 Lipase Sent. jj7 05:05 Test, Urine Sent. jj7 05:05 Urinalysis w/ reflexes Sent. jj7 05:09 Chest Single View XRAY In Process Unspecified. EDMS 07:00 Report received from SONIA MATTHEWS. kc6 07:03 Attending Physician role handed off by Rigoberto Yanez MD ms3 07:03 David Garcia DO is Attending Physician. ms3 07:44 CT Abd/Pelvis - IV Contrast Only In Process Unspecified. EDMS 08:37 Maximo Stevens DO is Referral Physician. ms3 09:06 No provider procedures requiring assistance completed. IV discontinued, intact, kc6 bleeding controlled, No redness/swelling at site. Pressure dressing applied. Administered Medications: 05:04 Drug: NS 0.9% IV 1000 ml IV at 1 bolus Per protocol; 1000 mL bolus Route: IV; Rate: 1 jj7 bolus; Site: right antecubital; 07:00 Follow up: Response: No adverse reaction; IV Status: Completed infusion; IV Intake: kc6 1000ml 05:04 Drug: Ondansetron IVP 4 mg IVP once; over 2 minutes Route: IVP; Site: right antecubital;jj7 07:00 Follow up: Response: No adverse reaction; Nausea is decreased kc6 05:47 Drug: Ondansetron IVP 4 mg IVP once; over 2 minutes Route: IVP; Site: right antecubital;jj7 07:00 Follow up: Response: No adverse reaction; Nausea is decreased kc6 Medication: 09:06 VIS not applicable for this client. kc6 Intake: 07:00 IV: 1000ml; Total: 1000ml. kc6 Outcome: 08:37 Discharge ordered by . ms3 09:06 Discharged to home ambulatory, kc6 09:06 Condition: improved 09:06 Discharge instructions given to patient, Instructed on discharge instructions, follow up and referral plans. medication usage, Demonstrated understanding of instructions, follow-up care, medications, Prescriptions given X 1, 09:06 Patient left the ED. kc6 Signatures: Dispatcher [employer] EDMS David Garcia DO DO ms3 Leslie Hendricks RN RN kc6 Dash Rogers RN RN jj7 Rigoberto Yanez MD MD rt
[2023-03-05 09:34] VITALS: TEMP 97.5
[2023-03-05 09:38] VITALS: BP 108/73; O2SAT 99
--- NOTE | 2023-03-05 11:56 | RAD REPORT ---
EXAM DESCRIPTION: RAD - Chest Single View - 03/05/2023 5:07 am CLINICAL HISTORY: The patient is 23 years old and is Female; CHEST PAIN TECHNIQUE: Single view of the chest. COMPARISON: No relevant prior studies available. FINDINGS: Lungs: No pulmonary vascular congestion or consolidation. Pleural space: Unremarkable. No pneumothorax. Heart: Unremarkable. No cardiomegaly. Mediastinum: Unremarkable. Normal mediastinal contour. Bones/joints: No acute fracture visualized. Upper abdomen: No free air in the visualized upper abdomen. IMPRESSION: No acute cardiopulmonary process identified. 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 The interpreting r adiologist is fully responsible for the content of the report.
--- NOTE | 2023-03-06 15:17 | EKG ---
Test Date: 2023-03-05 Test Time: 05:07:27 Literacy Consultant: ANTONIO MEASUREMENT RESULTS: Intervals: Rate: 81 LA: 136 QRSD: 84 QT: 372 QTc: 432 [place]: P: 57 LA: 136 QRS: 76 T: 56 INTERPRETIVE STATEMENTS: Normal sinus rhythm Normal ECG Compared to ECG 07/16/2020 16:34:17 Sinus tachycardia no longer present T-wave abnormality no longer present Electronically Signed On 03-06-23 15:12:37 GARNISHER by Hu Fisher
== END 2023-03-05 09:06 | disposition home or self-care (01) ==
LOC: ER 04:41
DX: R10.13 Epigastric pain (principal); R07.9 Chest pain, unspecified
CPT/HCPCS: 36415; 71045; 74177; 80053; 81001; 81025; 83690; 84484; 84703; 85025; 93005; 96361; 96374; 99284; J2405; J7030; Q9967

== ENCOUNTER 2025-01-15 03:09 | Emergency (ER) | payer OTHER ==
[2025-01-15] MEDS ORDERED: KETOROLAC 30 MG/ML INJ ONE (03:26)
[2025-01-15] MEDS ORDERED: METOCLOPRAMIDE 10 MG/2mL INJ ONE (03:27)
--- OUTSIDE RECORDS SUMMARY | 2025-01-15 03:55 | XMS REPORT | Continuity of Care Document ---
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 [facility] acetaminoph en (OFIRMEV) IV piggyback 1,000 mg 07-07 02:30: 00 07-07 02:38 :00 No 1000mg 1,000 mg, IV Piggyback, at 400 mL/hr Administer over 15 Minutes, ONCE, 1 dose, On Fri07/07/23 at 2130, Routine
Is the patient strict NPO and unable to tolerate oral medication s? Yes [facility] ondansetron (ZOFRAN (PF)) injection 4 mg 07-07 02:10: 40 07-12 00:36 :32 No 4mg 4 mg, Slow IV Push, Q6HPRN, Starting on Fri07/07/23 at 2110, Until 07/12/23 at 1936, Routine, Nausea and Vomiting (N/V) [facility] levETIRAcet am (KEPPRA) in NACL (ISO-OS) 1,000 mg/100 mL RTU 07-07 02:05: 00 07-07 02:15 :00 No 1000mg 1,000 mg, IV Piggyback, ONCE, 1 dose, On Fri07/07/23 at 2115, Administer over 15 Minutes, 100 mL [facility] hydralAZINE (APRESOLINE ) injection 10 mg 07-07 01:59: 01 07-12 00:36 :32 No 10mg 10 mg, Slow IV Push, Q2HPRN, Starting on Fri07/07/23 at 2058, Until 07/12/23 at 1936, Routine, Other, SBP goal < 130 [facility] labetaloL (NORMODYNE) injection 20 mg 07-07 01:58: 53 07-12 00:36 :32 No 20mg 20 mg, Slow IV Push, Q2HPRN, Starting on Fri07/07/23 at 2057, Until 07/12/23 at 1936, Routine, SBP goal < 130 [facility] morpHINE (2 mg/mL) injection 4 mg 07-07 01:37: 52 07-07 14:38 :31 No 4mg 4 mg, Slow IV Push, Q2HPRN, Starting on Fri07/07/23 at 2036, Until Tu07/08/23 at 0938, Routine, Pain (scale 7-10) [facility] oxyCODONE immediate release tablet 5 mg 07-07 01:35: 20 Yes 5mg 5 mg, Oral, Q4HPRN, Starting on Fri07/07/23 at 2034, Until Discontinu ed, Routine, Pain (scale 4-6)
Fa culty member approving Restricted medication : ROQUE WATTS [facility] sugammadex (BRIDION) injection 07-07 01:30: 00 07-07 02:44 :54 No IV Push, ONCE INTRA PROCEDURE, Starting on Fri07/07/23 at 2030, Until Fri07/07/23 at 2144, Routine, [facility]op [facility] [place] rocuronium (ZEMURON) injection 07-07 00:50: 00 07-07 02:44 :54 No IV Push, ONCE INTRA PROCEDURE, Starting on Fri07/07/23 at 1950, Until Discontinu ed, Routine, Intra-op [facility] vancomycin (VANCOCIN) 1 g in sodium chloride 0.9 % irrigation 07-07 00:34: 00 07-07 14:36 :16 No PRN, Starting on Fri07/07/23 at 1934, Until Fri07/08/23 at 0936, 1,000 mL, Intra-op [facility] ondansetron (ZOFRAN (PF)) injection 07-07 00:28: 00 07-07 02:44 :54 No Slow IV Push, ONCE INTRA PROCEDURE, Starting on Fri07/07/23 at 1928, Until Discontinu ed, Routine, Intra-op [facility] albumin (ALBUTEIN 5 %) 5 % injection 07-06 21:49: 00 07-07 02:44 :54 No IV Infusion, CONTINUOUS PRN, Starting on Fri07/07/23 at 1649, Until Discontinu ed, Intra-op [facility] Ibuprofen 200 mg capsule 07-06 20:49: 48 Yes Take by mouth. [facility] esmoloL (BREVIBLOC) injection 07-06 17:38: 00 07-07 02:44 :54 No Slow IV Push, ONCE INTRA PROCEDURE, Starting on Fri07/07/23 at 1238, Until Discontinu ed, Routine, Intra-op [facility] thrombin topical solution 07-06 15:10: 00 07-11 03:41 :21 No PRN, Starting on Fri07/07/23 at 1010, Until Fri07/11/23 at 2241, Routine, Intra-op [facility] mannitol (OSMITROL 20%/H2O) 20 % infusion 07-06 14:56: 00 07-07 02:44 :54 No IV Infusion, Administer over 30 Minutes, ONCE INTRA PROCEDURE, Starting on Fri07/07/23 at 0956, Until Discontinu ed, Routine, Intra-op [facility] HYDROmorphO ne (DILAUDID) injection 07-06 14:15: 00 07-07 02:44 :54 No Slow IV Push, ONCE INTRA PROCEDURE, Starting on Fri07/07/23 at 0915, Until Discontinu ed, Routine, Intra-op [facility] lidocaine-e pinephrine (XYLOCAINE WITH EPINEPHRINE ) 0.5 %-1:200,000 injection 07-06 14:14: 00 07-11 03:41 :21 No PRN, Starting on Fri07/07/23 at 0914, Until Fri07/11/23 at 2241, Routine, Intra-op [facility] NaCl 0.9% (NS) IV infusion 07-06 13:54: 00 07-07 02:44 :54 No IV Infusion, CONTINUOUS PRN, Starting on Fri07/07/23 at 0854, Until Discontinu ed, Routine, Intra-op [facility] PHENYLephri ne 1000 mcg/10 mL in 0.9% NaCl syringe 07-06 13:40: 00 07-07 02:44 :54 No Slow IV Push, CONTINUOUS PRN, Starting on Fri07/07/23 at 0840, Until Discontinu ed, Routine, Intra-op [facility] ceFAZolin (ANCEF) injection 07-06 13:34: 00 07-07 02:44 :54 No Intravenou s, ONCE INTRA PROCEDURE, Starting on Fri07/07/23 at 0834, Until Discontinu ed, MARRY, Intra-op [facility] [place] dexamethaso ne (DECADRON PHOSPHATE) injection 07-06 13:06: 00 07-07 02:44 :54 No IV Push, ONCE INTRA PROCEDURE, Starting on Fri07/07/23 at 0806, Until Discontinu ed, Routine, Intra-op [facility] lactated ringers IV infusion 07-06 13:00: 00 07-07 02:44 :54 No IV Infusion, CONTINUOUS PRN, Starting on Fri07/07/23 at 0800, Until Discontinu ed, Routine, Intra-op [facility] [place] propofoL IV infusion 07-06 13:00: 00 07-07 02:44 :54 No IV Infusion, CONTINUOUS PRN, Starting on Fri07/07/23 at 0800, Until Discontinu ed, Routine, Intra-op [facility] remifentani L (ULTIVA) injection 07-06 13:00: 00 07-07 02:44 :54 No Slow IV Push, CONTINUOUS PRN, Starting on Fri07/07/23 at 0800, Until Discontinu ed, Routine, Intra-op [facility] succinylcho line (QUELICIN) injection 07-06 12:48: 00 07-07 02:44 :54 No IV Push, ONCE INTRA PROCEDURE, Starting on Fri07/07/23 at 0748, Until Discontinu ed, Routine, Intra-op [facility] propofoL IV infusion 07-06 12:47: 00 07-07 02:44 :54 No Slow IV Push, ONCE INTRA PROCEDURE, Starting on Fri07/07/23 at 0747, Until Discontinu ed, Routine, Intra-op [facility] lidocaine 1% (XYLOCAINE) 100 mg/10 mL (1 %) injection 07-06 12:46: 00 07-07 02:44 :54 No Slow IV Push, ONCE INTRA PROCEDURE, Starting on Fri07/07/23 at 0746, Until Discontinu ed, Routine, Intra-op [facility] FENTanyl PF (SUBLIMAZE (PF)) injection 07-06 12:44: 00 07-07 02:44 :54 No Slow IV Push, ONCE INTRA PROCEDURE, Starting on Fri07/07/23 at 0744, Until Discontinu ed, Routine, Intra-op [facility] lactated ringers IV infusion 07-06 12:34: 00 07-07 02:44 :54 No IV Infusion, CONTINUOUS PRN, Starting on Fri07/07/23 at 0734, Until Discontinu ed, Routine, Intra-op [facility] midazolam (VERSED) injection 07-06 12:27: 00 07-07 02:44 :54 No IV Push, ONCE INTRA PROCEDURE, Starting on Fri07/07/23 at 0727, Until Discontinu ed, Routine, Intra-op [facility] acetaminoph en (TYLENOL) tablet 1,000 mg 07-06 10:48: 09 07-06 11:25 :00 No 1000mg 1,000 mg, Oral, PRE-PROCED URE ONCE, 1 dose, Starting on Fri07/07/23 at 0548, Until Fri07/07/23 at 0625, Routine, Pain (scale 1-3), [facility] Pre-op [facility] Ibuprofen 200 mg capsule 07-02 12:53: 20 07-11 00:00 :00 No Take by mouth. [facility] gadoteridol (PROHANCE-1 5 mL) injection 0.2 mL/kg 06-02 15:00: 00 06-02 14:35 :00 No [id number] .2mL/kg 0.2 mL/kg, Intravenou s, ONCE, 1 dose, On Fri06/02/23 at 0900, Routine [facility] gadobenate dimeglumine (MULTIHANCE -15 mL) injection 0.2 mL/kg 05-29 16:15: 00 05-29 16:05 :00 No [id number] .2mL/kg 0.2 mL/kg, Intravenou s, ONCE, 1 dose, On Astrid 05/29/23 at 1015, Routine [facility] proMETHazin e 12.5 mg tablet 2024-0 2-12 00:00: 00 03-22 00:00 :00 No [id number] 12.5mg Take 1 tablet by mouth every 4 (four) hours as needed for Nausea and Vomiting (N/V) or N/V unresponsi ve to Ondansetro n. [facility] methylPREDN ISolone 4 mg tablets 05-18 00:00: 00 07-11 00:00 :00 No [id number] Take by mouth SEE-INSTRU CTIONS. follow package directions [facility] ketorolac (TORADOL) injection 30 mg 05-17 19:30: 00 05-17 18:34 :00 No 30mg 30 mg, Slow IV Push, ONCE, 1 dose, On 05/17/23 at 1330, Routine [facility] diphenhydrA MINE (BENADRYL) injection 25 mg 05-17 18:30: 00 05-17 18:28 :00 No 25mg 25 mg, Slow IV Push, ONCE, 1 dose, On 05/17/23 at 1230, STAT [facility] metoclopram damian HCl (REGLAN) injection 10 mg 05-17 18:30: 00 05-17 18:28 :00 No 10mg 10 mg, Slow IV Push, ONCE, 1 dose, On 05/17/23 at 1230, MARRY [facility] dexamethaso ne sod phos PF injection 10 mg 05-17 18:30: 00 05-17 18:28 :00 No 10mg 10 mg, Slow IV Push, ONCE, 1 dose, On 05/17/23 at 1230, 1 mL [facility] NaCl 0.9% (NS) bolus infusion 1,000 mL 05-17 17:00: 00 05-17 20:56 :00 No 1000mL at 999 mL/hr, 1,000 mL, IV Infusion, ONCE, 1 dose, On 05/17/23 at 1100, MARRY [facility] ondansetron (ZOFRAN (PF)) injection 4 mg 2024-0 2-10 16:15: 00 05-17 16:34 :00 No 4mg 4 mg, Slow IV Push, ONCE, 1 dose, On 05/17/23 at 1015, MARRY [facility] ondansetron 4 mg disintegrat ing tablet 05-17 00:00: 00 03-22 00:00 :00 No [id number] 4mg Take 1 tablet by mouth every 8 (eight) hours as needed for Nausea and Vomiting (N/V). [facility] butalbital- acetaminoph en-caff 50-325-40 mg tablet 05-17 00:00: 00 07-11 00:00 :00 No [id number] 1{tbl} Take 1 tablet by mouth every 4 (four) hours as needed for Pain (scale 4-6) or Pain (scale 7-10). [facility] cephALEXin 250 mg capsule 05-17 00:00: 00 05-23 05:59 :00 No [id number] 250mg Take 1 capsule by mouth every 8 (eight) hours for 5 days. [facility] gadobenate dimeglumine (MULTIHANCE -15 mL) injection 13.42 mL 2022-04 15:30: 00 03-20 15:26 :00 No [id number] .2mL/kg 13.42 mL (0.2 mL/kg ?67.1 kg), Intravenou s, ONCE, 1 dose, On Astrid 03/20/23 at 0930, Routine [facility] vit no.124/iron /folic ( VITAMIN ORAL) 11-10 07:56: 32 11-10 00:00 :00 No Take by mouth. [facility] vitamin w/FA tablet 11-10 00:00: 00 09-08 00:00 :00 No [id number] 1{tbl} Take 1 tablet by mouth in the morning. [facility] ferrous sulfate 325 mg (65 mg iron) tablet 11-10 00:00: 09-08 00:00 :00 No [id number] 325mg Take 1 tablet by mouth in the morning and 1 tablet in the evening. [facility] docusate 100 mg capsule 11-10 00:00: 00 01-01 00:00 :00 No [id number] 200mg Take 2 capsules by mouth once daily as needed for Constipati on. [facility] ibuprofen 600 mg tablet 11-10 00:00: 01-01 00:00 :00 No [id number] 600mg Take 1 tablet by mouth every 6 (six) hours as needed (Pain). Take with food or milk. [facility] rho(D) immune globulin (RHOGAM) syringe 300 mcg 11-09 16:32: 45 Yes 300ug 300 mcg, Intramuscu lar, ONCE, For 1 dose, Conditiona l, Routine [facility] ibuprofen (IBU) tablet 600 mg 11-09 16:32: 41 Yes 600mg 600 mg, Oral, Q6HPRN, Starting on 11/09/22 at 1132, Until Discontinu ed, Routine, Pain (scale 4-6) [facility] acetaminoph en (TYLENOL) tablet 650 mg 11-09 16:32: 41 Yes 650mg 650 mg, Oral, Q6HPRN, Starting on 11/09/22 at 1132, Until Discontinu ed, Routine, Pain (scale 1-3) [facility] diphenhydrA MINE (BENADRYL) tablet 25 mg 11-09 16:32: 41 Yes 25mg 25 mg, Oral, Q6HPRN, Starting on 11/09/22 at 1132, Until Discontinu ed, Routine, Sleep, Itching [facility] ondansetron (ZOFRAN (PF)) injection 4 mg 11-09 16:32: 41 Yes 4mg 4 mg, Slow IV Push, Q8HPRN, Starting on 11/09/22 at 1132, Until Discontinu ed, Routine, Nausea and Vomiting (N/V) [facility] simethicone (GAS RELIEF (SIMETHICON E)) chewable tablet 160 mg 11-09 16:32: 41 Yes 160mg 160 mg, Oral, PC+HSPRN, Starting on 11/09/22 at 1132, Until Discontinu ed, Routine, Gas [facility] docusate (COLACE) capsule 200 mg 11-09 16:32: 41 Yes 200mg 200 mg, Oral, QDAILYPRN, Starting on 11/09/22 at 1132, Until Discontinu ed, Routine, Constipati on [facility] magnesium hydroxide (MILK OF MAGNESIA) 400 mg/5 mL suspension 30 mL 11-09 16:32: 41 Yes 30mL 30 mL, Oral, QDAILYPRN, Starting on 11/09/22 at 1132, Until Discontinu ed, Routine, Constipati on [facility] benzocaine- menthol (DERMOPLAST ) 20-0.5 % topical spray 11-09 16:32: 41 Yes Topical, PRN, Starting on 11/09/22 at 1132, Until Discontinu ed, Routine, Perineum discomfort [facility] vit no.124/iron /folic ( VITAMIN ORAL) 11-09 07:49: 21 Yes Take by mouth. [facility] PIB ropivacaine 0.2 % (NAROPIN (PF)) epidural infusion 11-09 06:35: 00 11-09 15:04 :14 No Epidural, ONCE INTRA PROCEDURE, Starting on 11/09/22 at 0135, Until 11/09/22 at 1004, Routine, Intra-op [facility] lidocaine-e pinephrine (XYLOCAINE W/EPINEPHRI NE) 2 %-1:200,000 injection 11-09 06:34: 00 11-09 15:04 :14 No Intravenou s, ONCE INTRA PROCEDURE, Starting on 11/09/22 at 0134, Until 11/09/22 at 1004, Routine, Intra-op [facility] lactated ringers IV infusion 500 mL 11-09 06:00: 00 11-09 06:45 :15 No 500mL at 999 mL/hr, 500 mL, IV Infusion, ONCE, 1 dose, On 11/09/22 at 0100, Routine [facility] lactated ringers IV infusion 500 mL 11-09 05:12: 54 11-09 07:24 :57 No 500mL at 999 mL/hr, 500 mL, IV Infusion, PRN - SEE INSTRUCTIO NS, 1 dose, Starting on Fri11/09/22 at 0012, Until 11/09/22 at 0224, Routine [facility] sodium citrate-cit adina acid (BICITRA) 500-334 mg/5 mL solution 30 mL 11-09 05:12: 54 11-09 06:11 :00 No 30mL 30 mL, Oral, PRE-PROCED URE ONCE, 1 dose, Starting on 11/09/22 at 0012, Until 11/09/22 at 0111, Routine, Surgery/Pr ocedure [facility] proMETHazin e (PHENERGAN) 12.5 mg in NS 50 mL IV piggyback (CNR) 11-09 03:00: 00 11-09 03:57 :00 No 12.5mg 12.5 mg, IV Piggyback, at 200 mL/hr Administer over 15 Minutes, ONCE, 1 dose, On Fri11/08/22 at 2200, Routine [facility] morpHINE (4 mg/mL) injection 4 mg 11-09 03:00: 00 11-09 02:05 :00 No 4mg 4 mg, Slow IV Push, ONCE, 1 dose, On Fri11/08/22 at 2200, Routine [facility] oxytocin (PITOCIN) 30 units in NS 500 mL IV infusion 11-09 01:50: 52 11-09 16:32 :44 No 2mU/min at 2-40 mL/hr, IV Infusion, TITRATE, Starting on Fri11/08/22 at 2050, Until 11/09/22 at 1132, MARRY [facility] D5W-LR IV infusion 1,000 mL 11-09 00:48: 54 11-09 16:32 :44 No 1000mL at 1-125 mL/hr, IV Infusion, TITRATE, Starting on Fri11/08/22 at 1948, Until 11/09/22 at 1132, Routine [facility] terbutaline (BRETHINE) injection 0.25 mg 10-16 23:00: 00 10-16 22:54 :00 No .25mg 0.25 mg, Subcutaneo us, ONCE, 1 dose, On Fri10/16/22 at 1800, Routine [facility] vit no.124/iron /folic ( VITAMIN ORAL) 10-16 20:26: 40 Yes Take by mouth. [facility] terbutaline (BRETHINE) injection 0.25 mg 10-11 23:15: 00 10-11 22:30 :00 No .25mg 0.25 mg, Subcutaneo us, ONCE, 1 dose, On Fri10/11/22 at 1815, Routine [facility] NaCl 0.9% (NS) IV infusion 1,000 mL 10-11 21:45: 00 Yes 1000mL at 125 mL/hr, IV Infusion, CONTINUOUS , Starting on Fri10/11/22 at 1645, Until Discontinu ed, Routine [facility] cefTRIAXone (ROCEPHIN) 1,000 mg in NaCl 0.9% (NS) 100 mL MINI-BAG 10-11 21:30: 00 10-11 21:25 :00 No 1000mg 1,000 mg, IV Piggyback, ONCE, 1 dose, On Fri10/11/22 at 1630, Administer over 30 Minutes, 100 mL
Reas on for Anti-Infec tive: Documented Infection< br>Documen marko Infection Site: Urine
D uration of Therapy: Other (see Comments) [facility] terbutaline (BRETHINE) injection 0.25 mg 10-11 21:30: 00 10-11 20:44 :00 No .25mg 0.25 mg, Subcutaneo us, ONCE, 1 dose, On Fri10/11/22 at 1630, Routine [facility] NaCl 0.9% (NS) bolus infusion 1,000 mL 10-11 20:15: 00 10-11 19:27 :00 No 1000mL at 999 mL/hr, 1,000 mL, IV Infusion, ONCE, 1 dose, On Fri10/11/22 at 1515, STAT [facility] vit no.124/iron /folic ( VITAMIN ORAL) 10-11 20:09: 40 Yes Take by mouth. [facility] NaCl 0.9% (NS) bolus infusion 1,000 mL 10-11 19:15: 00 10-11 18:18 :00 No 1000mL at 999 mL/hr, 1,000 mL, IV Infusion, ONCE, 1 dose, On Fri10/11/22 at 1415, STAT [facility] Nitrofurant oin&Nit. Macrocryst 100 mg capsule 10-11 00:00: 00 10-31 00:00 :00 No [id number] 100mg Take 1 capsule by mouth in the morning and 1 capsule in the evening. [facility] Iron Fum & P-FA-Vit B & C No.9 (INTEGRA PLUS) 125 mg iron- 1 mg Cap 09-05 00:00: 00 Yes [id number] 1{capsu le} Take 1 capsule by mouth in the morning. [facility] Iron Fum & P-FA-Vit B & C No.9 (INTEGRA PLUS) 125 mg iron- 1 mg Cap 09-05 00:00: 00 11-10 00:00 :00 No [id number] 1{capsu le} Take 1 capsule by mouth in the morning. [facility] fluconazole 150 mg tablet 19 00:00: 00 08-24 04:59 :00 No [id number] 150mg Take 1 tablet by mouth once now for 1 dose. [facility] magnesium oxide 400 mg magnesium Tab 4-24 00:00: 00 11-10 00:00 :00 No [id number] 1{tbl} Take 1 tablet by mouth in the morning. [facility] magnesium oxide 400 mg (241.3 mg magnesium) tablet 24 00:00: 00 10-31 00:00 :00 No 400mg Take 1 tablet by mouth every morning. [facility] guaiFENesin 400 mg tablet 07-08 00:00: 00 10-31 00:00 :00 No [id number] 400mg Take 1 tablet by mouth every 4 (four) hours as needed for Cough. [facility] amoxicillin -clavulanat e (AUGMENTIN) 875-125 mg per tablet 07-08 00:00: 00 07-16 04:59 :00 No [id number] 1{tbl} Take 1 tablet by mouth in the morning and 1 tablet in the evening. Do all this for 7 days. [facility] metroNIDAZO LE 500 mg tablet 06-15 00:00: 00 07-08 00:00 :00 No [id number] 9109 500mg Take 1 tablet by mouth in the morning and 1 tablet in the evening. [facility] vit no.124/iron /folic ( VITAMIN ORAL) 06-12 09:25: 08 Yes Take by mouth. [facility] pyridoxine, vitamin B6, 50 mg tablet 06-12 00:00: 00 11-10 00:00 :00 No [id number] Take 1 tablet by mouth twice daily before breakfast and dinner. [facility] vit no.124/iron /folic ( VITAMIN ORAL) 2-06 08:25: 22 Yes Take by mouth. [facility] calcium carbonate/v itamin D3 (CALCIUM 500 + D ORAL) 1-09 09:29: 11 04-15 00:00 :00 No 500mg Take 500 mg by mouth daily. [facility] ketorolac 10 mg tablet 2021-04 2-16 00:00: 00 04-15 00:00 :00 No [id number] 10mg Take 1 tablet by mouth as needed for Pain (scale 1-3) for up to 20 doses. [facility] doxycycline monohydrate 100 mg tablet 2021-04 00:00: 03-22 05:59 :00 No [id number] 100mg Take 1 tablet by mouth in the morning and 1 tablet in the evening. Do all this for 7 days. [facility] moxifloxaci n 400 mg tablet 2021-04 00:00: 00 03-22 05:59 :00 No [id number] 400mg Take 1 tablet by mouth in the morning for 7 days. [facility] metroNIDAZO LE 500 mg tablet 2021-04 00:00: 00 03-14 05:59 :00 No [id number] 500mg Take 1 tablet by mouth every 12 (twelve) hours for 7 days. [facility] terconazole 80 mg vaginal suppository 2021-04 00:00: 00 03-10 05:59 :00 No [id number] 80mg Insert 1 Suppositor y into vagina at bedtime for 3 days. [facility] terconazole 80 mg vaginal suppository 2021-04 00:00: 00 02-15 05:59 :00 No [id number] 80mg Insert 1 Suppositor y into vagina at bedtime for 3 days. [facility] butalbital- aspirin-caf feine 50-325-40 mg per capsule 2021-04 00:00: 00 04-15 00:00 :00 No TAKE ONE CAPSULE BY MOUTH EVERY 6 HOURS NEEDED FOR PAIN [facility] gadobenate dimeglumine (MULTIHANCE -15 mL) injection 0.2 mL/kg 2021-04 22:30: 00 02-05 22:25 :00 No [id number] .2mL/kg 0.2 mL/kg, Intravenou s, ONCE, 1 dose, On Fri02/05/22 at 1730, Routine [facility] metroNIDAZO LE 500 mg tablet 12-17 00:00: 00 12-25 04:59 :00 No [id number] 500mg Take 1 tablet by mouth every 12 (twelve) hours for 7 days. [facility] Lidocaine 5 % cream 12-11 00:00: 00 10-31 00:00 :00 No [id number] Apply to area(s) 2 (two) times daily as needed for Pain (scale 4-6). Apply 5g to affected areas BID PRN [facility] Diclofenac Sodium (VOLTAREN) 1 % gel 12-11 00:00: 00 04-15 00:00 :00 No [id number] Apply to area(s) 4 (four) times daily. Apply 4 g qid [facility] butalbital- aspirin-caf feine per tablet 12-11 00:00: 00 04-15 00:00 :00 No [id number] 1{tbl} Take 1 tablet by mouth every 6 (six) hours as needed for Pain. [facility] SUMAtriptan 25 mg tablet 12-11 00:00: 00 02-22 00:00 :00 No [id number] Start 25mg x 1 PRN Migraine. Max Dose 200mg/24H. May repeat dose x 1 after 2H [facility] traZODone 50 mg tablet 12-11 00:00: 00 02-22 00:00 :00 No [id number] 100mg Take 2 tablets by mouth at bedtime. [facility] metroNIDAZO LE 500 mg tablet 10-05 00:00: 00 12-11 00:00 :00 No [id number] 500mg Take 1 tablet by mouth every 12 (twelve) hours. [facility] traZODone 50 mg tablet 09-13 00:00: 00 12-11 00:00 :00 No [id number] 100mg Take 2 tablets by mouth at bedtime. [facility] ivermectin 0.5 % lotion 08-24 00:00: 04-15 00:00 :00 No APPLY THROUGHLY TO HAIR AND SCALP 1 FULL TUBE AND RINCE OUT WITH WATER AFTER 10 MINUTES FOR 1 DOSE [facility] calcium carbonate/v itamin D3 (CALCIUM 500 + D ORAL) 08-23 15:42: 20 Yes 500mg Take 500 mg by mouth daily. [facility] ondansetron (ZOFRAN) 4 mg tablet 08-23 13:41: 18 08-23 00:00 :00 No 4mg Take 4 mg by mouth every 8 (eight) hours as needed. [facility] diclofenac 75 mg EC tablet 08-18 00:00: 00 02-22 00:00 :00 No [id number] 75mg Take 1 tablet by mouth 2 (two) times daily with meals. [facility] metoclopram damian HCl 10 mg tablet 08-18 00:00: 02-22 00:00 :00 No [id number] 10mg Take 1 tablet by mouth every 6 (six) hours. [facility] Diclofenac Sodium (VOLTAREN) 1 % gel 08-18 00:00: 00 12-11 00:00 :00 No [id number] Apply to area(s) 4 (four) times daily. Apply 4 g qid [facility] traZODone 50 mg tablet 08-18 00:00: 00 09-13 00:00 :00 No [id number] 50mg Take 1 tablet by mouth at bedtime. [facility] HYDROcodone -acetaminop hen 5-325 mg tablet 08-18 00:00: 00 08-26 04:59 :00 No [id number] 1{tbl} Take 1 tablet by mouth every 6 (six) hours as needed for Pain (scale 7-10) for up to 7 days. Indication s: acute pain [facility] butalbital- acetaminoph en-caff 50-325-40 mg tablet 08-18 00:00: 00 08-23 00:00 :00 No [id number] 1{tbl} Take 1 tablet by mouth every 6 (six) hours as needed (headache) . [facility] cyclobenzap rine 10 mg tablet 08-18 00:00: 00 08-23 00:00 :00 No [id number] 10mg Take 1 tablet by mouth 2 (two) times daily as needed for Muscle Spasms. May cause drowsiness [facility] famotidine 20 mg tablet 08-18 00:00: 00 08-23 00:00 :00 No [id number] 20mg Take 1 tablet by mouth 2 (two) times daily. [facility] docusate 100 mg capsule 08-18 00:00: 00 08-23 00:00 :00 No [id number] 100mg Take 1 capsule by mouth 2 (two) times daily. [facility] dexAMETHaso ne 1 mg tablet 08-18 00:00: 00 08-23 00:00 :00 No [id number] 2mg Take 2 tablets by mouth 2 (two) times daily with meals for 14 days. [facility] [employer] ([employer]) [facility] 2020-04 00:00: 00 Yes [id number] Use as directed [facility] [employer] ([employer]) [facility] 2020-04 00:00: 00 10-31 00:00 :00 No [id number] Use as directed [facility] Immunizations Ordered Immunization Name Filled Immunization Name Date Status Comments Source Pneumococcal 20 Conjugate, PCV20 (Prevnar 20) 2024-09-09 00:00:00 Completed TDAP 2024-06-02 00:00:00 Completed [facility] Flu Injectable MDCK Pres-Free (FLUCELVAX) 2024-02-02 00:00:00 Completed [facility] DTAP 2023-12-29 00:00:00 Completed [facility] HIB 4 Dose Schedule 2023-12-29 00:00:00 Completed [facility] MMR 2023-12-29 00:00:00 Completed [facility] Polio (IPV/OPV) 2023-12-29 00:00:00 Completed [facility] Varicella (varivax)(chicken pox) 2023-12-29 00:00:00 Completed [facility] Hep B, Adol or Pedi Dosage 2023-12-29 00:00:00 Completed [facility] Meningococcal Polysaccharide (groups A, C, Y and W-135) conjugate vaccine (MCV4P) 2023-12-29 00:00:00 Completed [facility] TDAP 2023-12-29 00:00:00 Completed [facility] Influenza Virus Vaccine Quad .5 mL IM 6+ MO (FLUZONE/FLULAVAL/FLU ARIX) 2023-12-29 00:00:00 Completed [facility] HPV9 2023-12-29 00:00:00 Completed [facility] Influenza Virus Vaccine Quad IM, Preserv and ABX Free 6 MO-64 YRS (FLUCELVAX) 2023-12-29 00:00:00 Completed [facility] SARS-COV-2 COVID-19 MODERNA 12+ YRS VACCINE 2023-12-29 00:00:00 Completed [facility] DTAP 2023-09-30 11:00:00 Completed [facility] HIB 4 Dose Schedule 2023-09-30 11:00:00 Completed [facility] MMR 2023-09-30 11:00:00 Completed [facility] Polio (IPV/OPV) 2023-09-30 11:00:00 Completed [facility] Varicella (varivax)(chicken pox) 2023-09-30 11:00:00 Completed [facility] Hep B, Adol or Pedi Dosage 2023-09-30 11:00:00 Completed [facility] TDAP 2023-09-30 11:00:00 Completed [facility] Influenza Virus Vaccine Quad .5 mL IM 6+ MO (FLUZONE/FLULAVAL/FLU ARIX) 2023-09-30 11:00:00 Completed [facility] HPV9 2023-09-30 11:00:00 Completed [facility] Influenza Virus Vaccine Quad IM, Preserv and ABX Free 6 MO-64 YRS (FLUCELVAX) 2023-09-30 11:00:00 Completed [facility] SARS-COV-2 COVID-19 MODERNA 12+ YRS VACCINE 2023-09-30 11:00:00 Completed [facility] DTAP 2023-09-23 00:00:00 Completed [facility] HIB 4 Dose Schedule 2023-09-23 00:00:00 Completed [facility] MMR 2023-09-23 00:00:00 Completed [facility] Polio (IPV/OPV) 2023-09-23 00:00:00 Completed [facility] Varicella (varivax)(chicken pox) 2023-09-23 00:00:00 Completed [facility] Hep B, Adol or Pedi Dosage 2023-09-23 00:00:00 Completed [facility] Meningococcal Polysaccharide (groups A, C, Y and W-135) conjugate vaccine (MCV4P) 2023-09-23 00:00:00 Completed [facility] TDAP 2023-09-23 00:00:00 Completed [facility] Influenza Virus Vaccine Quad .5 mL IM 6+ MO (FLUZONE/FLULAVAL/FLU ARIX) 2023-09-23 00:00:00 Completed [facility] HPV9 2023-09-23 00:00:00 Completed [facility] Influenza Virus Vaccine Quad IM, Preserv and ABX Free 6 MO-64 YRS (FLUCELVAX) 2023-09-23 00:00:00 Completed [facility] SARS-COV-2 COVID-19 MODERNA 12+ YRS VACCINE 2023-09-23 00:00:00 Completed [facility] DTAP 2023-09-23 00:00:00 Completed [facility] HIB 4 Dose Schedule 2023-09-23 00:00:00 Completed [facility] MMR 2023-09-23 00:00:00 Completed [facility] Polio (IPV/OPV) 2023-09-23 00:00:00 Completed [facility] Varicella (varivax)(chicken pox) 2023-09-23 00:00:00 Completed [facility] Hep B, Adol or Pedi Dosage 2023-09-23 00:00:00 Completed [facility] Meningococcal Polysaccharide (groups A, C, Y and W-135) conjugate vaccine (MCV4P) 2023-09-23 00:00:00 Completed [facility] TDAP 2023-09-23 00:00:00 Completed [facility] Influenza Virus Vaccine Quad .5 mL IM 6+ MO (FLUZONE/FLULAVAL/FLU ARIX) 2023-09-23 00:00:00 Completed [facility] HPV9 2023-09-23 00:00:00 Completed [facility] Influenza Virus Vaccine Quad IM, Preserv and ABX Free 6 MO-64 YRS (FLUCELVAX) 2023-09-23 00:00:00 Completed [facility] SARS-COV-2 COVID-19 MODERNA 12+ YRS VACCINE 2023-09-23 00:00:00 Completed [facility] DTAP 2023-09-19 11:00:00 Completed [facility] HIB 4 Dose Schedule 2023-09-19 11:00:00 Completed [facility] MMR 2023-09-19 11:00:00 Completed [facility] Polio (IPV/OPV) 2023-09-19 11:00:00 Completed [facility] Varicella (varivax)(chicken pox) 2023-09-19 11:00:00 Completed [facility] Hep B, Adol or Pedi Dosage 2023-09-19 11:00:00 Completed [facility] Meningococcal Polysaccharide (groups A, C, Y and W-135) conjugate vaccine (MCV4P) 2023-09-19 11:00:00 Completed [facility] TDAP 2023-09-19 11:00:00 Completed [facility] Influenza Virus Vaccine Quad .5 mL IM 6+ MO (FLUZONE/FLULAVAL/FLU ARIX) 2023-09-19 11:00:00 Completed [facility] HPV9 2023-09-19 11:00:00 Completed [facility] Influenza Virus Vaccine Quad IM, Preserv and ABX Free 6 MO-64 YRS (FLUCELVAX) 2023-09-19 11:00:00 Completed [facility] SARS-COV-2 COVID-19 MODERNA 12+ YRS VACCINE 2023-09-19 11:00:00 Completed [facility] Meningococcal Polysaccharide (groups A, C, Y and W-135) conjugate vaccine (MCV4P) 2023-09-18 15:00:00 Completed [facility] DTAP 2023-09-18 15:00:00 Completed [facility] HIB 4 Dose Schedule 2023-09-18 15:00:00 Completed [facility] MMR 2023-09-18 15:00:00 Completed [facility] Polio (IPV/OPV) 2023-09-18 15:00:00 Completed [facility] Varicella (varivax)(chicken pox) 2023-09-18 15:00:00 Completed [facility] Hep B, Adol or Pedi Dosage 2023-09-18 15:00:00 Completed [facility] TDAP 2023-09-18 15:00:00 Completed [facility] Influenza Virus Vaccine Quad .5 mL IM 6+ MO (FLUZONE/FLULAVAL/FLU ARIX) 2023-09-18 15:00:00 Completed [facility] HPV9 2023-09-18 15:00:00 Completed [facility] Influenza Virus Vaccine Quad IM, Preserv and ABX Free 6 MO-64 YRS (FLUCELVAX) 2023-09-18 15:00:00 Completed [facility] SARS-COV-2 COVID-19 MODERNA 12+ YRS VACCINE 2023-09-18 15:00:00 Completed [facility] DTAP 2023-09-17 11:00:00 Completed [facility] HIB 4 Dose Schedule 2023-09-17 11:00:00 Completed [facility] MMR 2023-09-17 11:00:00 Completed [facility] Polio (IPV/OPV) 2023-09-17 11:00:00 Completed [facility] Varicella (varivax)(chicken pox) 2023-09-17 11:00:00 Completed [facility] Hep B, Adol or Pedi Dosage 2023-09-17 11:00:00 Completed [facility] Meningococcal Polysaccharide (groups A, C, Y and W-135) conjugate vaccine (MCV4P) 2023-09-17 11:00:00 Completed [facility] TDAP 2023-09-17 11:00:00 Completed [facility] Influenza Virus Vaccine Quad .5 mL IM 6+ MO (FLUZONE/FLULAVAL/FLU ARIX) 2023-09-17 11:00:00 Completed [facility] HPV9 2023-09-17 11:00:00 Completed [facility] Influenza Virus Vaccine Quad IM, Preserv and ABX Free 6 MO-64 YRS (FLUCELVAX) 2023-09-17 11:00:00 Completed [facility] SARS-COV-2 COVID-19 MODERNA 12+ YRS VACCINE 2023-09-17 11:00:00 Completed [facility] DTAP 2023-09-17 10:15:00 Completed [facility] HIB 4 Dose Schedule 2023-09-17 10:15:00 Completed [facility] MMR 2023-09-17 10:15:00 Completed [facility] Polio (IPV/OPV) 2023-09-17 10:15:00 Completed [facility] Varicella (varivax)(chicken pox) 2023-09-17 10:15:00 Completed [facility] Hep B, Adol or Pedi Dosage 2023-09-17 10:15:00 Completed [facility] Meningococcal Polysaccharide (groups A, C, Y and W-135) conjugate vaccine (MCV4P) 2023-09-17 10:15:00 Completed [facility] TDAP 2023-09-17 10:15:00 Completed [facility] Influenza Virus Vaccine Quad .5 mL IM 6+ MO (FLUZONE/FLULAVAL/FLU ARIX) 2023-09-17 10:15:00 Completed [facility] HPV9 2023-09-17 10:15:00 Completed [facility] Influenza Virus Vaccine Quad IM, Preserv and ABX Free 6 MO-64 YRS (FLUCELVAX) 2023-09-17 10:15:00 Completed [facility] SARS-COV-2 COVID-19 MODERNA 12+ YRS VACCINE 2023-09-17 10:15:00 Completed [facility] Meningococcal Polysaccharide (groups A, C, Y and W-135) conjugate vaccine (MCV4P) 2023-09-16 08:00:00 Completed [facility] DTAP 2023-09-16 08:00:00 Completed [facility] HIB 4 Dose Schedule 2023-09-16 08:00:00 Completed [facility] MMR 2023-09-16 08:00:00 Completed [facility] Polio (IPV/OPV) 2023-09-16 08:00:00 Completed [facility] Varicella (varivax)(chicken pox) 2023-09-16 08:00:00 Completed [facility] Hep B, Adol or Pedi Dosage 2023-09-16 08:00:00 Completed [facility] TDAP 2023-09-16 08:00:00 Completed [facility] Influenza Virus Vaccine Quad .5 mL IM 6+ MO (FLUZONE/FLULAVAL/FLU ARIX) 2023-09-16 08:00:00 Completed [facility] HPV9 2023-09-16 08:00:00 Completed [facility] Influenza Virus Vaccine Quad IM, Preserv and ABX Free 6 MO-64 YRS (FLUCELVAX) 2023-09-16 08:00:00 Completed [facility] SARS-COV-2 COVID-19 MODERNA 12+ YRS VACCINE 2023-09-16 08:00:00 Completed [facility] DTAP 2023-09-11 08:42:32 Completed [facility] HIB 4 Dose Schedule 2023-09-11 08:42:32 Completed [facility] MMR 2023-09-11 08:42:32 Completed [facility] Polio (IPV/OPV) 2023-09-11 08:42:32 Completed [facility] Varicella (varivax)(chicken pox) 2023-09-11 08:42:32 Completed [facility] Hep B, Adol or Pedi Dosage 2023-09-11 08:42:32 Completed [facility] Meningococcal Polysaccharide (groups A, C, Y and W-135) conjugate vaccine (MCV4P) 2023-09-11 08:42:32 Completed [facility] TDAP 2023-09-11 08:42:32 Completed [facility] Influenza Virus Vaccine Quad .5 mL IM 6+ MO (FLUZONE/FLULAVAL/FLU ARIX) 2023-09-11 08:42:32 Completed [facility] HPV9 2023-09-11 08:42:32 Completed [facility] Influenza Virus Vaccine Quad IM, Preserv and ABX Free 6 MO-64 YRS (FLUCELVAX) 2023-09-11 08:42:32 Completed [facility] SARS-COV-2 COVID-19 MODERNA 12+ YRS VACCINE 2023-09-11 08:42:32 Completed [facility] DTAP 2023-09-11 00:00:00 Completed [facility] HIB 4 Dose Schedule 2023-09-11 00:00:00 Completed [facility] MMR 2023-09-11 00:00:00 Completed [facility] Polio (IPV/OPV) 2023-09-11 00:00:00 Completed [facility] Varicella (varivax)(chicken pox) 2023-09-11 00:00:00 Completed [facility] Hep B, Adol or Pedi Dosage 2023-09-11 00:00:00 Completed [facility] Meningococcal Polysaccharide (groups A, C, Y and W-135) conjugate vaccine (MCV4P) 2023-09-11 00:00:00 Completed [facility] TDAP 2023-09-11 00:00:00 Completed [facility] Influenza Virus Vaccine Quad .5 mL IM 6+ MO (FLUZONE/FLULAVAL/FLU ARIX) 2023-09-11 00:00:00 Completed [facility] HPV9 2023-09-11 00:00:00 Completed [facility] Influenza Virus Vaccine Quad IM, Preserv and ABX Free 6 MO-64 YRS (FLUCELVAX) 2023-09-11 00:00:00 Completed [facility] SARS-COV-2 COVID-19 MODERNA 12+ YRS VACCINE 2023-09-11 00:00:00 Completed [facility] DTAP 2023-09-10 09:30:00 Completed [facility] HIB 4 Dose Schedule 2023-09-10 09:30:00 Completed [facility] MMR 2023-09-10 09:30:00 Completed [facility] Polio (IPV/OPV) 2023-09-10 09:30:00 Completed [facility] Varicella (varivax)(chicken pox) 2023-09-10 09:30:00 Completed [facility] Hep B, Adol or Pedi Dosage 2023-09-10 09:30:00 Completed [facility] Meningococcal Polysaccharide (groups A, C, Y and W-135) conjugate vaccine (MCV4P) 2023-09-10 09:30:00 Completed [facility] TDAP 2023-09-10 09:30:00 Completed [facility] Influenza Virus Vaccine Quad .5 mL IM 6+ MO (FLUZONE/FLULAVAL/FLU ARIX) 2023-09-10 09:30:00 Completed [facility] HPV9 2023-09-10 09:30:00 Completed [facility] Influenza Virus Vaccine Quad IM, Preserv and ABX Free 6 MO-64 YRS (FLUCELVAX) 2023-09-10 09:30:00 Completed [facility] SARS-COV-2 COVID-19 MODERNA 12+ YRS VACCINE 2023-09-10 09:30:00 Completed [facility] DTAP 2023-09-10 08:45:00 Completed [facility] HIB 4 Dose Schedule 2023-09-10 08:45:00 Completed [facility] MMR 2023-09-10 08:45:00 Completed [facility] Polio (IPV/OPV) 2023-09-10 08:45:00 Completed [facility] Varicella (varivax)(chicken pox) 2023-09-10 08:45:00 Completed [facility] Hep B, Adol or Pedi Dosage 2023-09-10 08:45:00 Completed [facility] Meningococcal Polysaccharide (groups A, C, Y and W-135) conjugate vaccine (MCV4P) 2023-09-10 08:45:00 Completed [facility] TDAP 2023-09-10 08:45:00 Completed [facility] Influenza Virus Vaccine Quad .5 mL IM 6+ MO (FLUZONE/FLULAVAL/FLU ARIX) 2023-09-10 08:45:00 Completed [facility] HPV9 2023-09-10 08:45:00 Completed [facility] Influenza Virus Vaccine Quad IM, Preserv and ABX Free 6 MO-64 YRS (FLUCELVAX) 2023-09-10 08:45:00 Completed [facility] SARS-COV-2 COVID-19 MODERNA 12+ YRS VACCINE 2023-09-10 08:45:00 Completed [facility] DTAP 2023-09-09 10:45:00 Completed [facility] HIB 4 Dose Schedule 2023-09-09 10:45:00 Completed [facility] MMR 2023-09-09 10:45:00 Completed [facility] Polio (IPV/OPV) 2023-09-09 10:45:00 Completed [facility] Varicella (varivax)(chicken pox) 2023-09-09 10:45:00 Completed [facility] Hep B, Adol or Pedi Dosage 2023-09-09 10:45:00 Completed [facility] Meningococcal Polysaccharide (groups A, C, Y and W-135) conjugate vaccine (MCV4P) 2023-09-09 10:45:00 Completed [facility] TDAP 2023-09-09 10:45:00 Completed [facility] Influenza Virus Vaccine Quad .5 mL IM 6+ MO (FLUZONE/FLULAVAL/FLU ARIX) 2023-09-09 10:45:00 Completed [facility] HPV9 2023-09-09 10:45:00 Completed [facility] Influenza Virus Vaccine Quad IM, Preserv and ABX Free 6 MO-64 YRS (FLUCELVAX) 2023-09-09 10:45:00 Completed [facility] SARS-COV-2 COVID-19 MODERNA 12+ YRS VACCINE 2023-09-09 10:45:00 Completed [facility] Meningococcal Polysaccharide (groups A, C, Y and W-135) conjugate vaccine (MCV4P) 2023-09-09 09:00:00 Completed [facility] DTAP 2023-09-09 09:00:00 Completed [facility] HIB 4 Dose Schedule 2023-09-09 09:00:00 Completed [facility] MMR 2023-09-09 09:00:00 Completed [facility] Polio (IPV/OPV) 2023-09-09 09:00:00 Completed [facility] Varicella (varivax)(chicken pox) 2023-09-09 09:00:00 Completed [facility] Hep B, Adol or Pedi Dosage 2023-09-09 09:00:00 Completed [facility] TDAP 2023-09-09 09:00:00 Completed [facility] Influenza Virus Vaccine Quad .5 mL IM 6+ MO (FLUZONE/FLULAVAL/FLU ARIX) 2023-09-09 09:00:00 Completed [facility] HPV9 2023-09-09 09:00:00 Completed [facility] Influenza Virus Vaccine Quad IM, Preserv and ABX Free 6 MO-64 YRS (FLUCELVAX) 2023-09-09 09:00:00 Completed [facility] SARS-COV-2 COVID-19 MODERNA 12+ YRS VACCINE 2023-09-09 09:00:00 Completed [facility] DTAP 2023-09-04 10:15:00 Completed [facility] HIB 4 Dose Schedule 2023-09-04 10:15:00 Completed [facility] MMR 2023-09-04 10:15:00 Completed [facility] Polio (IPV/OPV) 2023-09-04 10:15:00 Completed [facility] Varicella (varivax)(chicken pox) 2023-09-04 10:15:00 Completed [facility] Hep B, Adol or Pedi Dosage 2023-09-04 10:15:00 Completed [facility] Meningococcal Polysaccharide (groups A, C, Y and W-135) conjugate vaccine (MCV4P) 2023-09-04 10:15:00 Completed [facility] TDAP 2023-09-04 10:15:00 Completed [facility] Influenza Virus Vaccine Quad .5 mL IM 6+ MO (FLUZONE/FLULAVAL/FLU ARIX) 2023-09-04 10:15:00 Completed [facility] HPV9 2023-09-04 10:15:00 Completed [facility] Influenza Virus Vaccine Quad IM, Preserv and ABX Free 6 MO-64 YRS (FLUCELVAX) 2023-09-04 10:15:00 Completed [facility] SARS-COV-2 COVID-19 MODERNA 12+ YRS VACCINE 2023-09-04 10:15:00 Completed [facility] Meningococcal Polysaccharide (groups A, C, Y and W-135) conjugate vaccine (MCV4P) 2023-09-02 14:30:00 Completed [facility] DTAP 2023-09-02 14:30:00 Completed [facility] HIB 4 Dose Schedule 2023-09-02 14:30:00 Completed [facility] MMR 2023-09-02 14:30:00 Completed [facility] Polio (IPV/OPV) 2023-09-02 14:30:00 Completed [facility] Varicella (varivax)(chicken pox) 2023-09-02 14:30:00 Completed [facility] Hep B, Adol or Pedi Dosage 2023-09-02 14:30:00 Completed [facility] TDAP 2023-09-02 14:30:00 Completed [facility] Influenza Virus Vaccine Quad .5 mL IM 6+ MO (FLUZONE/FLULAVAL/FLU ARIX) 2023-09-02 14:30:00 Completed [facility] HPV9 2023-09-02 14:30:00 Completed [facility] Influenza Virus Vaccine Quad IM, Preserv and ABX Free 6 MO-64 YRS (FLUCELVAX) 2023-09-02 14:30:00 Completed [facility] SARS-COV-2 COVID-19 MODERNA 12+ YRS VACCINE 2023-09-02 14:30:00 Completed [facility] DTAP 2023-09-02 08:45:00 Completed [facility] HIB 4 Dose Schedule 2023-09-02 08:45:00 Completed [facility] MMR 2023-09-02 08:45:00 Completed [facility] Polio (IPV/OPV) 2023-09-02 08:45:00 Completed [facility] Varicella (varivax)(chicken pox) 2023-09-02 08:45:00 Completed [facility] Hep B, Adol or Pedi Dosage 2023-09-02 08:45:00 Completed [facility] Meningococcal Polysaccharide (groups A, C, Y and W-135) conjugate vaccine (MCV4P) 2023-09-02 08:45:00 Completed [facility] TDAP 2023-09-02 08:45:00 Completed [facility] Influenza Virus Vaccine Quad .5 mL IM 6+ MO (FLUZONE/FLULAVAL/FLU ARIX) 2023-09-02 08:45:00 Completed [facility] HPV9 2023-09-02 08:45:00 Completed [facility] Influenza Virus Vaccine Quad IM, Preserv and ABX Free 6 MO-64 YRS (FLUCELVAX) 2023-09-02 08:45:00 Completed [facility] SARS-COV-2 COVID-19 MODERNA 12+ YRS VACCINE 2023-09-02 08:45:00 Completed [facility] Meningococcal Polysaccharide (groups A, C, Y and W-135) conjugate vaccine (MCV4P) 2023-08-29 09:00:00 Completed [facility] DTAP 2023-08-29 09:00:00 Completed [facility] HIB 4 Dose Schedule 2023-08-29 09:00:00 Completed [facility] MMR 2023-08-29 09:00:00 Completed [facility] Polio (IPV/OPV) 2023-08-29 09:00:00 Completed [facility] Varicella (varivax)(chicken pox) 2023-08-29 09:00:00 Completed [facility] Hep B, Adol or Pedi Dosage 2023-08-29 09:00:00 Completed [facility] TDAP 2023-08-29 09:00:00 Completed [facility] Influenza Virus Vaccine Quad .5 mL IM 6+ MO (FLUZONE/FLULAVAL/FLU ARIX) 2023-08-29 09:00:00 Completed [facility] HPV9 2023-08-29 09:00:00 Completed [facility] Influenza Virus Vaccine Quad IM, Preserv and ABX Free 6 MO-64 YRS (FLUCELVAX) 2023-08-29 09:00:00 Completed [facility] SARS-COV-2 COVID-19 MODERNA 12+ YRS VACCINE 2023-08-29 09:00:00 Completed [facility] DTAP 2023-08-27 00:00:00 Completed [facility] HIB 4 Dose Schedule 2023-08-27 00:00:00 Completed [facility] MMR 2023-08-27 00:00:00 Completed [facility] Polio (IPV/OPV) 2023-08-27 00:00:00 Completed [facility] Varicella (varivax)(chicken pox) 2023-08-27 00:00:00 Completed [facility] Hep B, Adol or Pedi Dosage 2023-08-27 00:00:00 Completed [facility] Meningococcal Polysaccharide (groups A, C, Y and W-135) conjugate vaccine (MCV4P) 2023-08-27 00:00:00 Completed [facility] TDAP 2023-08-27 00:00:00 Completed [facility] Influenza Virus Vaccine Quad .5 mL IM 6+ MO (FLUZONE/FLULAVAL/FLU ARIX) 2023-08-27 00:00:00 Completed [facility] HPV9 2023-08-27 00:00:00 Completed [facility] Influenza Virus Vaccine Quad IM, Preserv and ABX Free 6 MO-64 YRS (FLUCELVAX) 2023-08-27 00:00:00 Completed [facility] SARS-COV-2 COVID-19 MODERNA 12+ YRS VACCINE 2023-08-27 00:00:00 Completed [facility] Meningococcal Polysaccharide (groups A, C, Y and W-135) conjugate vaccine (MCV4P) 2023-08-22 08:45:00 Completed [facility] DTAP 2023-08-22 08:45:00 Completed [facility] HIB 4 Dose Schedule 2023-08-22 08:45:00 Completed [facility] MMR 2023-08-22 08:45:00 Completed [facility] Polio (IPV/OPV) 2023-08-22 08:45:00 Completed [facility] Varicella (varivax)(chicken pox) 2023-08-22 08:45:00 Completed [facility] Hep B, Adol or Pedi Dosage 2023-08-22 08:45:00 Completed [facility] TDAP 2023-08-22 08:45:00 Completed [facility] Influenza Virus Vaccine Quad .5 mL IM 6+ MO (FLUZONE/FLULAVAL/FLU ARIX) 2023-08-22 08:45:00 Completed [facility] HPV9 2023-08-22 08:45:00 Completed [facility] Influenza Virus Vaccine Quad IM, Preserv and ABX Free 6 MO-64 YRS (FLUCELVAX) 2023-08-22 08:45:00 Completed [facility] SARS-COV-2 COVID-19 MODERNA 12+ YRS VACCINE 2023-08-22 08:45:00 Completed [facility] DTAP 2023-08-21 10:15:00 Completed [facility] HIB 4 Dose Schedule 2023-08-21 10:15:00 Completed [facility] MMR 2023-08-21 10:15:00 Completed [facility] Polio (IPV/OPV) 2023-08-21 10:15:00 Completed [facility] Varicella (varivax)(chicken pox) 2023-08-21 10:15:00 Completed [facility] Hep B, Adol or Pedi Dosage 2023-08-21 10:15:00 Completed [facility] Meningococcal Polysaccharide (groups A, C, Y and W-135) conjugate vaccine (MCV4P) 2023-08-21 10:15:00 Completed [facility] TDAP 2023-08-21 10:15:00 Completed [facility] Influenza Virus Vaccine Quad .5 mL IM 6+ MO (FLUZONE/FLULAVAL/FLU ARIX) 2023-08-21 10:15:00 Completed [facility] HPV9 2023-08-21 10:15:00 Completed [facility] Influenza Virus Vaccine Quad IM, Preserv and ABX Free 6 MO-64 YRS (FLUCELVAX) 2023-08-21 10:15:00 Completed [facility] SARS-COV-2 COVID-19 MODERNA 12+ YRS VACCINE 2023-08-21 10:15:00 Completed [facility] DTAP 2023-08-21 09:30:00 Completed [facility] HIB 4 Dose Schedule 2023-08-21 09:30:00 Completed [facility] MMR 2023-08-21 09:30:00 Completed [facility] Polio (IPV/OPV) 2023-08-21 09:30:00 Completed [facility] Varicella (varivax)(chicken pox) 2023-08-21 09:30:00 Completed [facility] Hep B, Adol or Pedi Dosage 2023-08-21 09:30:00 Completed [facility] Meningococcal Polysaccharide (groups A, C, Y and W-135) conjugate vaccine (MCV4P) 2023-08-21 09:30:00 Completed [facility] TDAP 2023-08-21 09:30:00 Completed [facility] Influenza Virus Vaccine Quad .5 mL IM 6+ MO (FLUZONE/FLULAVAL/FLU ARIX) 2023-08-21 09:30:00 Completed [facility] HPV9 2023-08-21 09:30:00 Completed [facility] Influenza Virus Vaccine Quad IM, Preserv and ABX Free 6 MO-64 YRS (FLUCELVAX) 2023-08-21 09:30:00 Completed [facility] SARS-COV-2 COVID-19 MODERNA 12+ YRS VACCINE 2023-08-21 09:30:00 Completed [facility] DTAP 2023-08-20 13:30:00 Completed [facility] HIB 4 Dose Schedule 2023-08-20 13:30:00 Completed [facility] MMR 2023-08-20 13:30:00 Completed [facility] Polio (IPV/OPV) 2023-08-20 13:30:00 Completed [facility] Varicella (varivax)(chicken pox) 2023-08-20 13:30:00 Completed [facility] Hep B, Adol or Pedi Dosage 2023-08-20 13:30:00 Completed [facility] Meningococcal Polysaccharide (groups A, C, Y and W-135) conjugate vaccine (MCV4P) 2023-08-20 13:30:00 Completed [facility] TDAP 2023-08-20 13:30:00 Completed [facility] Influenza Virus Vaccine Quad .5 mL IM 6+ MO (FLUZONE/FLULAVAL/FLU ARIX) 2023-08-20 13:30:00 Completed [facility] HPV9 2023-08-20 13:30:00 Completed [facility] Influenza Virus Vaccine Quad IM, Preserv and ABX Free 6 MO-64 YRS (FLUCELVAX) 2023-08-20 13:30:00 Completed [facility] SARS-COV-2 COVID-19 MODERNA 12+ YRS VACCINE 2023-08-20 13:30:00 Completed [facility] Meningococcal Polysaccharide (groups A, C, Y and W-135) conjugate vaccine (MCV4P) 2023-08-15 14:15:00 Completed [facility] DTAP 2023-08-15 14:15:00 Completed [facility] HIB 4 Dose Schedule 2023-08-15 14:15:00 Completed [facility] MMR 2023-08-15 14:15:00 Completed [facility] Polio (IPV/OPV) 2023-08-15 14:15:00 Completed [facility] Varicella (varivax)(chicken pox) 2023-08-15 14:15:00 Completed [facility] Hep B, Adol or Pedi Dosage 2023-08-15 14:15:00 Completed [facility] TDAP 2023-08-15 14:15:00 Completed [facility] Influenza Virus Vaccine Quad .5 mL IM 6+ MO (FLUZONE/FLULAVAL/FLU ARIX) 2023-08-15 14:15:00 Completed [facility] HPV9 2023-08-15 14:15:00 Completed [facility] Influenza Virus Vaccine Quad IM, Preserv and ABX Free 6 MO-64 YRS (FLUCELVAX) 2023-08-15 14:15:00 Completed [facility] SARS-COV-2 COVID-19 MODERNA 12+ YRS VACCINE 2023-08-15 14:15:00 Completed [facility] DTAP 2023-08-14 13:00:00 Completed [facility] HIB 4 Dose Schedule 2023-08-14 13:00:00 Completed [facility] MMR 2023-08-14 13:00:00 Completed [facility] Polio (IPV/OPV) 2023-08-14 13:00:00 Completed [facility] Varicella (varivax)(chicken pox) 2023-08-14 13:00:00 Completed [facility] Hep B, Adol or Pedi Dosage 2023-08-14 13:00:00 Completed [facility] Meningococcal Polysaccharide (groups A, C, Y and W-135) conjugate vaccine (MCV4P) 2023-08-14 13:00:00 Completed [facility] TDAP 2023-08-14 13:00:00 Completed [facility] Influenza Virus Vaccine Quad .5 mL IM 6+ MO (FLUZONE/FLULAVAL/FLU ARIX) 2023-08-14 13:00:00 Completed [facility] HPV9 2023-08-14 13:00:00 Completed [facility] Influenza Virus Vaccine Quad IM, Preserv and ABX Free 6 MO-64 YRS (FLUCELVAX) 2023-08-14 13:00:00 Completed [facility] SARS-COV-2 COVID-19 MODERNA 12+ YRS VACCINE 2023-08-14 13:00:00 Completed [facility] DTAP 2023-08-11 00:00:00 Completed [facility] HIB 4 Dose Schedule 2023-08-11 00:00:00 Completed [facility] MMR 2023-08-11 00:00:00 Completed [facility] Polio (IPV/OPV) 2023-08-11 00:00:00 Completed [facility] Varicella (varivax)(chicken pox) 2023-08-11 00:00:00 Completed [facility] Hep B, Adol or Pedi Dosage 2023-08-11 00:00:00 Completed [facility] Meningococcal Polysaccharide (groups A, C, Y and W-135) conjugate vaccine (MCV4P) 2023-08-11 00:00:00 Completed [facility] TDAP 2023-08-11 00:00:00 Completed [facility] Influenza Virus Vaccine Quad .5 mL IM 6+ MO (FLUZONE/FLULAVAL/FLU ARIX) 2023-08-11 00:00:00 Completed [facility] HPV9 2023-08-11 00:00:00 Completed [facility] Influenza Virus Vaccine Quad IM, Preserv and ABX Free 6 MO-64 YRS (FLUCELVAX) 2023-08-11 00:00:00 Completed [facility] SARS-COV-2 COVID-19 MODERNA 12+ YRS VACCINE 2023-08-11 00:00:00 Completed [facility] Meningococcal Polysaccharide (groups A, C, Y and W-135) conjugate vaccine (MCV4P) 2023-08-07 12:45:00 Completed [facility] DTAP 2023-08-07 12:45:00 Completed [facility] HIB 4 Dose Schedule 2023-08-07 12:45:00 Completed [facility] MMR 2023-08-07 12:45:00 Completed [facility] Polio (IPV/OPV) 2023-08-07 12:45:00 Completed [facility] Varicella (varivax)(chicken pox) 2023-08-07 12:45:00 Completed [facility] Hep B, Adol or Pedi Dosage 2023-08-07 12:45:00 Completed [facility] TDAP 2023-08-07 12:45:00 Completed [facility] Influenza Virus Vaccine Quad .5 mL IM 6+ MO (FLUZONE/FLULAVAL/FLU ARIX) 2023-08-07 12:45:00 Completed [facility] HPV9 2023-08-07 12:45:00 Completed [facility] Influenza Virus Vaccine Quad IM, Preserv and ABX Free 6 MO-64 YRS (FLUCELVAX) 2023-08-07 12:45:00 Completed [facility] SARS-COV-2 COVID-19 MODERNA 12+ YRS VACCINE 2023-08-07 12:45:00 Completed [facility] DTAP 2023-07-28 00:00:00 Completed [facility] HIB 4 Dose Schedule 2023-07-28 00:00:00 Completed [facility] MMR 2023-07-28 00:00:00 Completed [facility] Polio (IPV/OPV) 2023-07-28 00:00:00 Completed [facility] Varicella (varivax)(chicken pox) 2023-07-28 00:00:00 Completed [facility] Hep B, Adol or Pedi Dosage 2023-07-28 00:00:00 Completed [facility] Meningococcal Polysaccharide (groups A, C, Y and W-135) conjugate vaccine (MCV4P) 2023-07-28 00:00:00 Completed [facility] TDAP 2023-07-28 00:00:00 Completed [facility] Influenza Virus Vaccine Quad .5 mL IM 6+ MO (FLUZONE/FLULAVAL/FLU ARIX) 2023-07-28 00:00:00 Completed [facility] HPV9 2023-07-28 00:00:00 Completed [facility] Influenza Virus Vaccine Quad IM, Preserv and ABX Free 6 MO-64 YRS (FLUCELVAX) 2023-07-28 00:00:00 Completed [facility] SARS-COV-2 COVID-19 MODERNA 12+ YRS VACCINE 2023-07-28 00:00:00 Completed [facility] DTAP 2023-07-28 00:00:00 Completed [facility] HIB 4 Dose Schedule 2023-07-28 00:00:00 Completed [facility] MMR 2023-07-28 00:00:00 Completed [facility] Polio (IPV/OPV) 2023-07-28 00:00:00 Completed [facility] Varicella (varivax)(chicken pox) 2023-07-28 00:00:00 Completed [facility] Hep B, Adol or Pedi Dosage 2023-07-28 00:00:00 Completed [facility] Meningococcal Polysaccharide (groups A, C, Y and W-135) conjugate vaccine (MCV4P) 2023-07-28 00:00:00 Completed [facility] TDAP 2023-07-28 00:00:00 Completed [facility] Influenza Virus Vaccine Quad .5 mL IM 6+ MO (FLUZONE/FLULAVAL/FLU ARIX) 2023-07-28 00:00:00 Completed [facility] HPV9 2023-07-28 00:00:00 Completed [facility] Influenza Virus Vaccine Quad IM, Preserv and ABX Free 6 MO-64 YRS (FLUCELVAX) 2023-07-28 00:00:00 Completed [facility] SARS-COV-2 COVID-19 MODERNA 12+ YRS VACCINE 2023-07-28 00:00:00 Completed [facility] Meningococcal Polysaccharide (groups A, C, Y and W-135) conjugate vaccine (MCV4P) 2023-07-17 16:15:00 Completed [facility] DTAP 2023-07-17 16:15:00 Completed [facility] HIB 4 Dose Schedule 2023-07-17 16:15:00 Completed [facility] MMR 2023-07-17 16:15:00 Completed [facility] Polio (IPV/OPV) 2023-07-17 16:15:00 Completed [facility] Varicella (varivax)(chicken pox) 2023-07-17 16:15:00 Completed [facility] Hep B, Adol or Pedi Dosage 2023-07-17 16:15:00 Completed [facility] TDAP 2023-07-17 16:15:00 Completed [facility] Influenza Virus Vaccine Quad .5 mL IM 6+ MO (FLUZONE/FLULAVAL/FLU ARIX) 2023-07-17 16:15:00 Completed [facility] HPV9 2023-07-17 16:15:00 Completed [facility] Influenza Virus Vaccine Quad IM, Preserv and ABX Free 6 MO-64 YRS (FLUCELVAX) 2023-07-17 16:15:00 Completed [facility] SARS-COV-2 COVID-19 MODERNA 12+ YRS VACCINE 2023-07-17 16:15:00 Completed [facility] DTAP 2023-07-07 07:34:00 Completed [facility] HIB 4 Dose Schedule 2023-07-07 07:34:00 Completed [facility] MMR 2023-07-07 07:34:00 Completed [facility] Polio (IPV/OPV) 2023-07-07 07:34:00 Completed [facility] Varicella (varivax)(chicken pox) 2023-07-07 07:34:00 Completed [facility] Hep B, Adol or Pedi Dosage 2023-07-07 07:34:00 Completed [facility] Meningococcal Polysaccharide (groups A, C, Y and W-135) conjugate vaccine (MCV4P) 2023-07-07 07:34:00 Completed [facility] TDAP 2023-07-07 07:34:00 Completed [facility] Influenza Virus Vaccine Quad .5 mL IM 6+ MO (FLUZONE/FLULAVAL/FLU ARIX) 2023-07-07 07:34:00 Completed [facility] HPV9 2023-07-07 07:34:00 Completed [facility] Influenza Virus Vaccine Quad IM, Preserv and ABX Free 6 MO-64 YRS (FLUCELVAX) 2023-07-07 07:34:00 Completed [facility] SARS-COV-2 COVID-19 MODERNA 12+ YRS VACCINE 2023-07-07 07:34:00 Completed [facility] Meningococcal Polysaccharide (groups A, C, Y and W-135) conjugate vaccine (MCV4P) 2023-07-07 06:55:00 Completed [facility] DTAP 2023-07-07 06:55:00 Completed [facility] HIB 4 Dose Schedule 2023-07-07 06:55:00 Completed [facility] MMR 2023-07-07 06:55:00 Completed [facility] Polio (IPV/OPV) 2023-07-07 06:55:00 Completed [facility] Varicella (varivax)(chicken pox) 2023-07-07 06:55:00 Completed [facility] Hep B, Adol or Pedi Dosage 2023-07-07 06:55:00 Completed [facility] TDAP 2023-07-07 06:55:00 Completed [facility] Influenza Virus Vaccine Quad .5 mL IM 6+ MO (FLUZONE/FLULAVAL/FLU ARIX) 2023-07-07 06:55:00 Completed [facility] HPV9 2023-07-07 06:55:00 Completed [facility] Influenza Virus Vaccine Quad IM, Preserv and ABX Free 6 MO-64 YRS (FLUCELVAX) 2023-07-07 06:55:00 Completed [facility] SARS-COV-2 COVID-19 MODERNA 12+ YRS VACCINE 2023-07-07 06:55:00 Completed [facility] Varicella (varivax)(chicken pox) 2023-07-07 05:16:00 Completed [facility] DTAP 2023-07-07 05:16:00 Completed [facility] HIB 4 Dose Schedule 2023-07-07 05:16:00 Completed [facility] Hep B, Adol or Pedi Dosage 2023-07-07 05:16:00 Completed [facility] Meningococcal Polysaccharide (groups A, C, Y and W-135) conjugate vaccine (MCV4P) 2023-07-07 05:16:00 Completed [facility] MMR 2023-07-07 05:16:00 Completed [facility] Polio (IPV/OPV) 2023-07-07 05:16:00 Completed [facility] TDAP 2023-07-07 05:16:00 Completed [facility] Influenza Virus Vaccine Quad .5 mL IM 6+ MO (FLUZONE/FLULAVAL/FLU ARIX) 2023-07-07 05:16:00 Completed [facility] HPV9 2023-07-07 05:16:00 Completed [facility] Influenza Virus Vaccine Quad IM, Preserv and ABX Free 6 MO-64 YRS (FLUCELVAX) 2023-07-07 05:16:00 Completed [facility] SARS-COV-2 COVID-19 MODERNA 12+ YRS VACCINE 2023-07-07 05:16:00 Completed [facility] DTAP 2023-07-04 15:45:00 Completed [facility] HIB 4 Dose Schedule 2023-07-04 15:45:00 Completed [facility] MMR 2023-07-04 15:45:00 Completed [facility] Polio (IPV/OPV) 2023-07-04 15:45:00 Completed [facility] Varicella (varivax)(chicken pox) 2023-07-04 15:45:00 Completed [facility] Hep B, Adol or Pedi Dosage 2023-07-04 15:45:00 Completed [facility] Meningococcal Polysaccharide (groups A, C, Y and W-135) conjugate vaccine (MCV4P) 2023-07-04 15:45:00 Completed [facility] TDAP 2023-07-04 15:45:00 Completed [facility] Influenza Virus Vaccine Quad .5 mL IM 6+ MO (FLUZONE/FLULAVAL/FLU ARIX) 2023-07-04 15:45:00 Completed [facility] HPV9 2023-07-04 15:45:00 Completed [facility] Influenza Virus Vaccine Quad IM, Preserv and ABX Free 6 MO-64 YRS (FLUCELVAX) 2023-07-04 15:45:00 Completed [facility] SARS-COV-2 COVID-19 MODERNA 12+ YRS VACCINE 2023-07-04 15:45:00 Completed [facility] DTAP 2023-06-30 00:00:00 Completed [facility] HIB 4 Dose Schedule 2023-06-30 00:00:00 Completed [facility] MMR 2023-06-30 00:00:00 Completed [facility] Polio (IPV/OPV) 2023-06-30 00:00:00 Completed [facility] Varicella (varivax)(chicken pox) 2023-06-30 00:00:00 Completed [facility] Hep B, Adol or Pedi Dosage 2023-06-30 00:00:00 Completed [facility] Meningococcal Polysaccharide (groups A, C, Y and W-135) conjugate vaccine (MCV4P) 2023-06-30 00:00:00 Completed [facility] TDAP 2023-06-30 00:00:00 Completed [facility] Influenza Virus Vaccine Quad .5 mL IM 6+ MO (FLUZONE/FLULAVAL/FLU ARIX) 2023-06-30 00:00:00 Completed [facility] HPV9 2023-06-30 00:00:00 Completed [facility] Influenza Virus Vaccine Quad IM, Preserv and ABX Free 6 MO-64 YRS (FLUCELVAX) 2023-06-30 00:00:00 Completed [facility] SARS-COV-2 COVID-19 MODERNA 12+ YRS VACCINE 2023-06-30 00:00:00 Completed [facility] DTAP 2023-06-24 00:00:00 Completed [facility] HIB 4 Dose Schedule 2023-06-24 00:00:00 Completed [facility] MMR 2023-06-24 00:00:00 Completed [facility] Polio (IPV/OPV) 2023-06-24 00:00:00 Completed [facility] Varicella (varivax)(chicken pox) 2023-06-24 00:00:00 Completed [facility] Hep B, Adol or Pedi Dosage 2023-06-24 00:00:00 Completed [facility] Meningococcal Polysaccharide (groups A, C, Y and W-135) conjugate vaccine (MCV4P) 2023-06-24 00:00:00 Completed [facility] TDAP 2023-06-24 00:00:00 Completed [facility] Influenza Virus Vaccine Quad .5 mL IM 6+ MO (FLUZONE/FLULAVAL/FLU ARIX) 2023-06-24 00:00:00 Completed [facility] HPV9 2023-06-24 00:00:00 Completed [facility] Influenza Virus Vaccine Quad IM, Preserv and ABX Free 6 MO-64 YRS (FLUCELVAX) 2023-06-24 00:00:00 Completed [facility] SARS-COV-2 COVID-19 MODERNA 12+ YRS VACCINE 2023-06-24 00:00:00 Completed [facility] Meningococcal Polysaccharide (groups A, C, Y and W-135) conjugate vaccine (MCV4P) 2023-06-23 08:30:00 Completed [facility] DTAP 2023-06-23 08:30:00 Completed [facility] HIB 4 Dose Schedule 2023-06-23 08:30:00 Completed [facility] MMR 2023-06-23 08:30:00 Completed [facility] Polio (IPV/OPV) 2023-06-23 08:30:00 Completed [facility] Hep B, Adol or Pedi Dosage 2023-06-23 08:30:00 Completed [facility] Varicella (varivax)(chicken pox) 2023-06-23 08:30:00 Completed [facility] Influenza Virus Vaccine Quad .5 mL IM 6+ MO (FLUZONE/FLULAVAL/FLU ARIX) 2023-06-23 08:30:00 Completed [facility] TDAP (ADACEL) VACCINE 2023-06-23 08:30:00 Completed [facility] HPV9 2023-06-23 08:30:00 Completed [facility] Influenza Virus Vaccine Quad IM, Preserv and ABX Free 6 MO-64 YRS (FLUCELVAX) 2023-06-23 08:30:00 Completed [facility] SARS-COV-2 COVID-19 MODERNA 12+ YRS VACCINE 2023-06-23 08:30:00 Completed [facility] DTAP 2023-06-23 00:00:00 Completed [facility] HIB 4 Dose Schedule 2023-06-23 00:00:00 Completed [facility] MMR 2023-06-23 00:00:00 Completed [facility] Polio (IPV/OPV) 2023-06-23 00:00:00 Completed [facility] Varicella (varivax)(chicken pox) 2023-06-23 00:00:00 Completed [facility] Hep B, Adol or Pedi Dosage 2023-06-23 00:00:00 Completed [facility] Meningococcal Polysaccharide (groups A, C, Y and W-135) conjugate vaccine (MCV4P) 2023-06-23 00:00:00 Completed [facility] TDAP 2023-06-23 00:00:00 Completed [facility] Influenza Virus Vaccine Quad .5 mL IM 6+ MO (FLUZONE/FLULAVAL/FLU ARIX) 2023-06-23 00:00:00 Completed [facility] HPV9 2023-06-23 00:00:00 Completed [facility] Influenza Virus Vaccine Quad IM, Preserv and ABX Free 6 MO-64 YRS (FLUCELVAX) 2023-06-23 00:00:00 Completed [facility] SARS-COV-2 COVID-19 MODERNA 12+ YRS VACCINE 2023-06-23 00:00:00 Completed [facility] DTAP 2023-06-19 00:00:00 Completed [facility] HIB 4 Dose Schedule 2023-06-19 00:00:00 Completed [facility] MMR 2023-06-19 00:00:00 Completed [facility] Polio (IPV/OPV) 2023-06-19 00:00:00 Completed [facility] Varicella (varivax)(chicken pox) 2023-06-19 00:00:00 Completed [facility] Hep B, Adol or Pedi Dosage 2023-06-19 00:00:00 Completed [facility] Meningococcal Polysaccharide (groups A, C, Y and W-135) conjugate vaccine (MCV4P) 2023-06-19 00:00:00 Completed [facility] TDAP 2023-06-19 00:00:00 Completed [facility] Influenza Virus Vaccine Quad .5 mL IM 6+ MO (FLUZONE/FLULAVAL/FLU ARIX) 2023-06-19 00:00:00 Completed [facility] HPV9 2023-06-19 00:00:00 Completed [facility] Influenza Virus Vaccine Quad IM, Preserv and ABX Free 6 MO-64 YRS (FLUCELVAX) 2023-06-19 00:00:00 Completed [facility] SARS-COV-2 COVID-19 MODERNA 12+ YRS VACCINE 2023-06-19 00:00:00 Completed [facility] Meningococcal Polysaccharide (groups A, C, Y and W-135) conjugate vaccine (MCV4P) 2023-06-11 00:00:00 Completed [facility] DTAP 2023-06-11 00:00:00 Completed [facility] HIB 4 Dose Schedule 2023-06-11 00:00:00 Completed [facility] MMR 2023-06-11 00:00:00 Completed [facility] Polio (IPV/OPV) 2023-06-11 00:00:00 Completed [facility] Varicella (varivax)(chicken pox) 2023-06-11 00:00:00 Completed [facility] Hep B, Adol or Pedi Dosage 2023-06-11 00:00:00 Completed [facility] TDAP 2023-06-11 00:00:00 Completed [facility] Influenza Virus Vaccine Quad .5 mL IM 6+ MO (FLUZONE/FLULAVAL/FLU ARIX) 2023-06-11 00:00:00 Completed [facility] HPV9 2023-06-11 00:00:00 Completed [facility] Influenza Virus Vaccine Quad IM, Preserv and ABX Free 6 MO-64 YRS (FLUCELVAX) 2023-06-11 00:00:00 Completed [facility] SARS-COV-2 COVID-19 MODERNA 12+ YRS VACCINE 2023-06-11 00:00:00 Completed [facility] DTAP 2023-06-02 07:59:45 Completed [facility] HIB 4 Dose Schedule 2023-06-02 07:59:45 Completed [facility] MMR 2023-06-02 07:59:45 Completed [facility] Polio (IPV/OPV) 2023-06-02 07:59:45 Completed [facility] Varicella (varivax)(chicken pox) 2023-06-02 07:59:45 Completed [facility] Hep B, Adol or Pedi Dosage 2023-06-02 07:59:45 Completed [facility] [facility] Meningococcal Polysaccharide (groups A, C, Y and W-135) conjugate vaccine (MCV4P) 2023-06-02 07:59:45 Completed [facility] TDAP 2023-06-02 07:59:45 Completed [facility] Influenza Virus Vaccine Quad .5 mL IM 6+ MO (FLUZONE/FLULAVAL/FLU ARIX) 2023-06-02 07:59:45 Completed [facility] HPV9 2023-06-02 07:59:45 Completed [facility] Influenza Virus Vaccine Quad IM, Preserv and ABX Free 6 MO-64 YRS (FLUCELVAX) 2023-06-02 07:59:45 Completed [facility] SARS-COV-2 COVID-19 MODERNA 12+ YRS VACCINE 2023-06-02 07:59:45 Completed [facility] DTAP 2023-05-29 08:41:45 Completed [facility] HIB 4 Dose Schedule 2023-05-29 08:41:45 Completed [facility] MMR 2023-05-29 08:41:45 Completed [facility] Polio (IPV/OPV) 2023-05-29 08:41:45 Completed [facility] Varicella (varivax)(chicken pox) 2023-05-29 08:41:45 Completed [facility] Hep B, Adol or Pedi Dosage 2023-05-29 08:41:45 Completed [facility] Meningococcal Polysaccharide (groups A, C, Y and W-135) conjugate vaccine (MCV4P) 2023-05-29 08:41:45 Completed [facility] TDAP 2023-05-29 08:41:45 Completed [facility] Influenza Virus Vaccine Quad .5 mL IM 6+ MO (FLUZONE/FLULAVAL/FLU ARIX) 2023-05-29 08:41:45 Completed [facility] HPV9 2023-05-29 08:41:45 Completed [facility] Influenza Virus Vaccine Quad IM, Preserv and ABX Free 6 MO-64 YRS (FLUCELVAX) 2023-05-29 08:41:45 Completed [facility] SARS-COV-2 COVID-19 MODERNA 12+ YRS VACCINE 2023-05-29 08:41:45 Completed [facility] DTAP 2023-05-27 00:00:00 Completed [facility] HIB 4 Dose Schedule 2023-05-27 00:00:00 Completed [facility] MMR 2023-05-27 00:00:00 Completed [facility] Polio (IPV/OPV) 2023-05-27 00:00:00 Completed [facility] Varicella (varivax)(chicken pox) 2023-05-27 00:00:00 Completed [facility] Hep B, Adol or Pedi Dosage 2023-05-27 00:00:00 Completed [facility] Meningococcal Polysaccharide (groups A, C, Y and W-135) conjugate vaccine (MCV4P) 2023-05-27 00:00:00 Completed [facility] TDAP 2023-05-27 00:00:00 Completed [facility] Influenza Virus Vaccine Quad .5 mL IM 6+ MO (FLUZONE/FLULAVAL/FLU ARIX) 2023-05-27 00:00:00 Completed [facility] HPV9 2023-05-27 00:00:00 Completed [facility] Influenza Virus Vaccine Quad IM, Preserv and ABX Free 6 MO-64 YRS (FLUCELVAX) 2023-05-27 00:00:00 Completed [facility] SARS-COV-2 COVID-19 MODERNA 12+ YRS VACCINE 2023-05-27 00:00:00 Completed [facility] DTAP 2023-05-23 00:00:00 Completed [facility] HIB 4 Dose Schedule 2023-05-23 00:00:00 Completed [facility] MMR 2023-05-23 00:00:00 Completed [facility] Polio (IPV/OPV) 2023-05-23 00:00:00 Completed [facility] Varicella (varivax)(chicken pox) 2023-05-23 00:00:00 Completed [facility] Hep B, Adol or Pedi Dosage 2023-05-23 00:00:00 Completed [facility] Meningococcal Polysaccharide (groups A, C, Y and W-135) conjugate vaccine (MCV4P) 2023-05-23 00:00:00 Completed [facility] TDAP 2023-05-23 00:00:00 Completed [facility] Influenza Virus Vaccine Quad .5 mL IM 6+ MO (FLUZONE/FLULAVAL/FLU ARIX) 2023-05-23 00:00:00 Completed [facility] HPV9 2023-05-23 00:00:00 Completed [facility] Influenza Virus Vaccine Quad IM, Preserv and ABX Free 6 MO-64 YRS (FLUCELVAX) 2023-05-23 00:00:00 Completed [facility] SARS-COV-2 COVID-19 MODERNA 12+ YRS VACCINE 2023-05-23 00:00:00 Completed [facility] Meningococcal Polysaccharide (groups A, C, Y and W-135) conjugate vaccine (MCV4P) 2023-05-21 16:00:00 Completed [facility] DTAP 2023-05-21 16:00:00 Completed [facility] HIB 4 Dose Schedule 2023-05-21 16:00:00 Completed [facility] MMR 2023-05-21 16:00:00 Completed [facility] Polio (IPV/OPV) 2023-05-21 16:00:00 Completed [facility] Varicella (varivax)(chicken pox) 2023-05-21 16:00:00 Completed [facility] Hep B, Adol or Pedi Dosage 2023-05-21 16:00:00 Completed [facility] TDAP 2023-05-21 16:00:00 Completed [facility] Influenza Virus Vaccine Quad .5 mL IM 6+ MO (FLUZONE/FLULAVAL/FLU ARIX) 2023-05-21 16:00:00 Completed [facility] HPV9 2023-05-21 16:00:00 Completed [facility] Influenza Virus Vaccine Quad IM, Preserv and ABX Free 6 MO-64 YRS (FLUCELVAX) 2023-05-21 16:00:00 Completed [facility] SARS-COV-2 COVID-19 MODERNA 12+ YRS VACCINE 2023-05-21 16:00:00 Completed [facility] Meningococcal Polysaccharide (groups A, C, Y and W-135) conjugate vaccine (MCV4P) 2023-05-20 11:15:00 Completed [facility] DTAP 2023-05-20 11:15:00 Completed [facility] HIB 4 Dose Schedule 2023-05-20 11:15:00 Completed [facility] MMR 2023-05-20 11:15:00 Completed [facility] Polio (IPV/OPV) 2023-05-20 11:15:00 Completed [facility] Varicella (varivax)(chicken pox) 2023-05-20 11:15:00 Completed [facility] Hep B, Adol or Pedi Dosage 2023-05-20 11:15:00 Completed [facility] TDAP 2023-05-20 11:15:00 Completed [facility] Influenza Virus Vaccine Quad .5 mL IM 6+ MO (FLUZONE/FLULAVAL/FLU ARIX) 2023-05-20 11:15:00 Completed [facility] HPV9 2023-05-20 11:15:00 Completed [facility] Influenza Virus Vaccine Quad IM, Preserv and ABX Free 6 MO-64 YRS (FLUCELVAX) 2023-05-20 11:15:00 Completed [facility] SARS-COV-2 COVID-19 MODERNA 12+ YRS VACCINE 2023-05-20 11:15:00 Completed [facility] Meningococcal Polysaccharide (groups A, C, Y and W-135) conjugate vaccine (MCV4P) 2023-05-20 10:00:00 Completed [facility] DTAP 2023-05-20 10:00:00 Completed [facility] HIB 4 Dose Schedule 2023-05-20 10:00:00 Completed [facility] MMR 2023-05-20 10:00:00 Completed [facility] Polio (IPV/OPV) 2023-05-20 10:00:00 Completed [facility] Varicella (varivax)(chicken pox) 2023-05-20 10:00:00 Completed [facility] Hep B, Adol or Pedi Dosage 2023-05-20 10:00:00 Completed [facility] TDAP 2023-05-20 10:00:00 Completed [facility] Influenza Virus Vaccine Quad .5 mL IM 6+ MO (FLUZONE/FLULAVAL/FLU ARIX) 2023-05-20 10:00:00 Completed [facility] HPV9 2023-05-20 10:00:00 Completed [facility] Influenza Virus Vaccine Quad IM, Preserv and ABX Free 6 MO-64 YRS (FLUCELVAX) 2023-05-20 10:00:00 Completed [facility] SARS-COV-2 COVID-19 MODERNA 12+ YRS VACCINE 2023-05-20 10:00:00 Completed [facility] DTAP 2023-05-20 09:00:00 Completed [facility] HIB 4 Dose Schedule 2023-05-20 09:00:00 Completed [facility] MMR 2023-05-20 09:00:00 Completed [facility] Polio (IPV/OPV) 2023-05-20 09:00:00 Completed [facility] Varicella (varivax)(chicken pox) 2023-05-20 09:00:00 Completed [facility] Hep B, Adol or Pedi Dosage 2023-05-20 09:00:00 Completed [facility] Meningococcal Polysaccharide (groups A, C, Y and W-135) conjugate vaccine (MCV4P) 2023-05-20 09:00:00 Completed [facility] TDAP 2023-05-20 09:00:00 Completed [facility] Influenza Virus Vaccine Quad .5 mL IM 6+ MO (FLUZONE/FLULAVAL/FLU ARIX) 2023-05-20 09:00:00 Completed [facility] HPV9 2023-05-20 09:00:00 Completed [facility] Influenza Virus Vaccine Quad IM, Preserv and ABX Free 6 MO-64 YRS (FLUCELVAX) 2023-05-20 09:00:00 Completed [facility] SARS-COV-2 COVID-19 MODERNA 12+ YRS VACCINE 2023-05-20 09:00:00 Completed [facility] Meningococcal Polysaccharide (groups A, C, Y and W-135) conjugate vaccine (MCV4P) 2023-05-20 00:00:00 Completed [facility] DTAP 2023-05-20 00:00:00 Completed [facility] HIB 4 Dose Schedule 2023-05-20 00:00:00 Completed [facility] MMR 2023-05-20 00:00:00 Completed [facility] Polio (IPV/OPV) 2023-05-20 00:00:00 Completed [facility] Varicella (varivax)(chicken pox) 2023-05-20 00:00:00 Completed [facility] Hep B, Adol or Pedi Dosage 2023-05-20 00:00:00 Completed [facility] TDAP 2023-05-20 00:00:00 Completed [facility] Influenza Virus Vaccine Quad .5 mL IM 6+ MO (FLUZONE/FLULAVAL/FLU ARIX) 2023-05-20 00:00:00 Completed [facility] HPV9 2023-05-20 00:00:00 Completed [facility] Influenza Virus Vaccine Quad IM, Preserv and ABX Free 6 MO-64 YRS (FLUCELVAX) 2023-05-20 00:00:00 Completed [facility] SARS-COV-2 COVID-19 MODERNA 12+ YRS VACCINE 2023-05-20 00:00:00 Completed [facility] Meningococcal Polysaccharide (groups A, C, Y and W-135) conjugate vaccine (MCV4P) 2023-05-19 13:30:00 Completed [facility] DTAP 2023-05-19 13:30:00 Completed [facility] HIB 4 Dose Schedule 2023-05-19 13:30:00 Completed [facility] MMR 2023-05-19 13:30:00 Completed [facility] Polio (IPV/OPV) 2023-05-19 13:30:00 Completed [facility] Varicella (varivax)(chicken pox) 2023-05-19 13:30:00 Completed [facility] Hep B, Adol or Pedi Dosage 2023-05-19 13:30:00 Completed [facility] TDAP 2023-05-19 13:30:00 Completed [facility] Influenza Virus Vaccine Quad .5 mL IM 6+ MO (FLUZONE/FLULAVAL/FLU ARIX) 2023-05-19 13:30:00 Completed [facility] HPV9 2023-05-19 13:30:00 Completed [facility] Influenza Virus Vaccine Quad IM, Preserv and ABX Free 6 MO-64 YRS (FLUCELVAX) 2023-05-19 13:30:00 Completed [facility] SARS-COV-2 COVID-19 MODERNA 12+ YRS VACCINE 2023-05-19 13:30:00 Completed [facility] Meningococcal Polysaccharide (groups A, C, Y and W-135) conjugate vaccine (MCV4P) 2023-05-19 13:00:00 Completed [facility] DTAP 2023-05-19 13:00:00 Completed [facility] HIB 4 Dose Schedule 2023-05-19 13:00:00 Completed [facility] MMR 2023-05-19 13:00:00 Completed [facility] Polio (IPV/OPV) 2023-05-19 13:00:00 Completed [facility] Varicella (varivax)(chicken pox) 2023-05-19 13:00:00 Completed [facility] Hep B, Adol or Pedi Dosage 2023-05-19 13:00:00 Completed [facility] Influenza Virus Vaccine Quad .5 mL IM 6+ MO (FLUZONE/FLULAVAL/FLU ARIX) 2023-05-19 13:00:00 Completed [facility] Influenza Virus Vaccine Quad IM, Preserv and ABX Free 6 MO-64 YRS (FLUCELVAX) 2023-05-19 13:00:00 Completed [facility] HPV9 2023-05-19 13:00:00 Completed [facility] SARS-COV-2 COVID-19 MODERNA 12+ YRS VACCINE 2023-05-19 13:00:00 Completed [facility] TDAP 2023-05-19 13:00:00 Completed [facility] DTAP 2023-05-19 00:00:00 Completed [facility] HIB 4 Dose Schedule 2023-05-19 00:00:00 Completed [facility] MMR 2023-05-19 00:00:00 Completed [facility] Polio (IPV/OPV) 2023-05-19 00:00:00 Completed [facility] Varicella (varivax)(chicken pox) 2023-05-19 00:00:00 Completed [facility] Hep B, Adol or Pedi Dosage 2023-05-19 00:00:00 Completed [facility] Meningococcal Polysaccharide (groups A, C, Y and W-135) conjugate vaccine (MCV4P) 2023-05-19 00:00:00 Completed [facility] TDAP 2023-05-19 00:00:00 Completed [facility] Influenza Virus Vaccine Quad .5 mL IM 6+ MO (FLUZONE/FLULAVAL/FLU ARIX) 2023-05-19 00:00:00 Completed [facility] HPV9 2023-05-19 00:00:00 Completed [facility] Influenza Virus Vaccine Quad IM, Preserv and ABX Free 6 MO-64 YRS (FLUCELVAX) 2023-05-19 00:00:00 Completed [facility] SARS-COV-2 COVID-19 MODERNA 12+ YRS VACCINE 2023-05-19 00:00:00 Completed [facility] DTAP 2023-05-19 00:00:00 Completed [facility] HIB 4 Dose Schedule 2023-05-19 00:00:00 Completed [facility] MMR 2023-05-19 00:00:00 Completed [facility] Polio (IPV/OPV) 2023-05-19 00:00:00 Completed [facility] Varicella (varivax)(chicken pox) 2023-05-19 00:00:00 Completed [facility] Hep B, Adol or Pedi Dosage 2023-05-19 00:00:00 Completed [facility] Meningococcal Polysaccharide (groups A, C, Y and W-135) conjugate vaccine (MCV4P) 2023-05-19 00:00:00 Completed [facility] TDAP 2023-05-19 00:00:00 Completed [facility] Influenza Virus Vaccine Quad .5 mL IM 6+ MO (FLUZONE/FLULAVAL/FLU ARIX) 2023-05-19 00:00:00 Completed [facility] HPV9 2023-05-19 00:00:00 Completed [facility] Influenza Virus Vaccine Quad IM, Preserv and ABX Free 6 MO-64 YRS (FLUCELVAX) 2023-05-19 00:00:00 Completed [facility] SARS-COV-2 COVID-19 MODERNA 12+ YRS VACCINE 2023-05-19 00:00:00 Completed [facility] DTAP 2023-05-17 10:08:00 Completed [facility] HIB 4 Dose Schedule 2023-05-17 10:08:00 Completed [facility] MMR 2023-05-17 10:08:00 Completed [facility] Polio (IPV/OPV) 2023-05-17 10:08:00 Completed [facility] Varicella (varivax)(chicken pox) 2023-05-17 10:08:00 Completed [facility] Hep B, Adol or Pedi Dosage 2023-05-17 10:08:00 Completed [facility] Meningococcal Polysaccharide (groups A, C, Y and W-135) conjugate vaccine (MCV4P) 2023-05-17 10:08:00 Completed [facility] TDAP 2023-05-17 10:08:00 Completed [facility] Influenza Virus Vaccine Quad .5 mL IM 6+ MO (FLUZONE/FLULAVAL/FLU ARIX) 2023-05-17 10:08:00 Completed [facility] HPV9 2023-05-17 10:08:00 Completed [facility] Influenza Virus Vaccine Quad IM, Preserv and ABX Free 6 MO-64 YRS (FLUCELVAX) 2023-05-17 10:08:00 Completed [facility] SARS-COV-2 COVID-19 MODERNA 12+ YRS VACCINE 2023-05-17 10:08:00 Completed [facility] DTAP 2023-04-24 00:00:00 Completed [facility] HIB 4 Dose Schedule 2023-04-24 00:00:00 Completed [facility] MMR 2023-04-24 00:00:00 Completed [facility] Polio (IPV/OPV) 2023-04-24 00:00:00 Completed [facility] Varicella (varivax)(chicken pox) 2023-04-24 00:00:00 Completed [facility] Hep B, Adol or Pedi Dosage 2023-04-24 00:00:00 Completed [facility] Meningococcal Polysaccharide (groups A, C, Y and W-135) conjugate vaccine (MCV4P) 2023-04-24 00:00:00 Completed [facility] TDAP 2023-04-24 00:00:00 Completed [facility] Influenza Virus Vaccine Quad .5 mL IM 6+ MO (FLUZONE/FLULAVAL/FLU ARIX) 2023-04-24 00:00:00 Completed [facility] HPV9 2023-04-24 00:00:00 Completed [facility] Influenza Virus Vaccine Quad IM, Preserv and ABX Free 6 MO-64 YRS (FLUCELVAX) 2023-04-24 00:00:00 Completed [facility] SARS-COV-2 COVID-19 MODERNA 12+ YRS VACCINE 2023-04-24 00:00:00 Completed [facility] DTAP 2023-04-23 08:59:14 Completed [facility] HIB 4 Dose Schedule 2023-04-23 08:59:14 Completed [facility] MMR 2023-04-23 08:59:14 Completed [facility] Polio (IPV/OPV) 2023-04-23 08:59:14 Completed [facility] Varicella (varivax)(chicken pox) 2023-04-23 08:59:14 Completed [facility] Hep B, Adol or Pedi Dosage 2023-04-23 08:59:14 Completed [facility] Meningococcal Polysaccharide (groups A, C, Y and W-135) conjugate vaccine (MCV4P) 2023-04-23 08:59:14 Completed [facility] TDAP 2023-04-23 08:59:14 Completed [facility] Influenza Virus Vaccine Quad .5 mL IM 6+ MO (FLUZONE/FLULAVAL/FLU ARIX) 2023-04-23 08:59:14 Completed [facility] HPV9 2023-04-23 08:59:14 Completed [facility] Influenza Virus Vaccine Quad IM, Preserv and ABX Free 6 MO-64 YRS (FLUCELVAX) 2023-04-23 08:59:14 Completed [facility] SARS-COV-2 COVID-19 MODERNA 12+ YRS VACCINE 2023-04-23 08:59:14 Completed [facility] Meningococcal Polysaccharide (groups A, C, Y and W-135) conjugate vaccine (MCV4P) 2023-04-03 11:20:00 Completed [facility] DTAP 2023-04-03 11:20:00 Completed [facility] HIB 4 Dose Schedule 2023-04-03 11:20:00 Completed [facility] MMR 2023-04-03 11:20:00 Completed [facility] Polio (IPV/OPV) 2023-04-03 11:20:00 Completed [facility] Varicella (varivax)(chicken pox) 2023-04-03 11:20:00 Completed [facility] Hep B, Adol or Pedi Dosage 2023-04-03 11:20:00 Completed [facility] TDAP 2023-04-03 11:20:00 Completed [facility] Influenza Virus Vaccine Quad .5 mL IM 6+ MO (FLUZONE/FLULAVAL/FLU ARIX) 2023-04-03 11:20:00 Completed [facility] HPV9 2023-04-03 11:20:00 Completed [facility] Influenza Virus Vaccine Quad IM, Preserv and ABX Free 6 MO-64 YRS (FLUCELVAX) 2023-04-03 11:20:00 Completed [facility] SARS-COV-2 COVID-19 MODERNA 12+ YRS VACCINE 2023-04-03 11:20:00 Completed [facility] Meningococcal Polysaccharide (groups A, C, Y and W-135) conjugate vaccine (MCV4P) 2023-03-24 08:00:00 Completed [facility] DTAP 2023-03-24 08:00:00 Completed [facility] HIB 4 Dose Schedule 2023-03-24 08:00:00 Completed [facility] MMR 2023-03-24 08:00:00 Completed [facility] Polio (IPV/OPV) 2023-03-24 08:00:00 Completed [facility] Varicella (varivax)(chicken pox) 2023-03-24 08:00:00 Completed [facility] Hep B, Adol or Pedi Dosage 2023-03-24 08:00:00 Completed [facility] TDAP 2023-03-24 08:00:00 Completed [facility] Influenza Virus Vaccine Quad .5 mL IM 6+ MO (FLUZONE/FLULAVAL/FLU ARIX) 2023-03-24 08:00:00 Completed [facility] HPV9 2023-03-24 08:00:00 Completed [facility] Influenza Virus Vaccine Quad IM, Preserv and ABX Free 6 MO-64 YRS (FLUCELVAX) 2023-03-24 08:00:00 Completed [facility] SARS-COV-2 COVID-19 MODERNA 12+ YRS VACCINE 2023-03-24 08:00:00 Completed [facility] DTAP 2023-03-21 00:00:00 Completed [facility] HIB 4 Dose Schedule 2023-03-21 00:00:00 Completed [facility] MMR 2023-03-21 00:00:00 Completed [facility] Polio (IPV/OPV) 2023-03-21 00:00:00 Completed [facility] Varicella (varivax)(chicken pox) 2023-03-21 00:00:00 Completed [facility] Hep B, Adol or Pedi Dosage 2023-03-21 00:00:00 Completed [facility] Meningococcal Polysaccharide (groups A, C, Y and W-135) conjugate vaccine (MCV4P) 2023-03-21 00:00:00 Completed [facility] TDAP 2023-03-21 00:00:00 Completed [facility] Influenza Virus Vaccine Quad .5 mL IM 6+ MO (FLUZONE/FLULAVAL/FLU ARIX) 2023-03-21 00:00:00 Completed [facility] HPV9 2023-03-21 00:00:00 Completed [facility] Influenza Virus Vaccine Quad IM, Preserv and ABX Free 6 MO-64 YRS (FLUCELVAX) 2023-03-21 00:00:00 Completed [facility] SARS-COV-2 COVID-19 MODERNA 12+ YRS VACCINE 2023-03-21 00:00:00 Completed [facility] DTAP 2023-03-20 08:14:19 Completed [facility] HIB 4 Dose Schedule 2023-03-20 08:14:19 Completed [facility] MMR 2023-03-20 08:14:19 Completed [facility] Polio (IPV/OPV) 2023-03-20 08:14:19 Completed [facility] Varicella (varivax)(chicken pox) 2023-03-20 08:14:19 Completed [facility] Hep B, Adol or Pedi Dosage 2023-03-20 08:14:19 Completed [facility] Meningococcal Polysaccharide (groups A, C, Y and W-135) conjugate vaccine (MCV4P) 2023-03-20 08:14:19 Completed [facility] TDAP 2023-03-20 08:14:19 Completed [facility] Influenza Virus Vaccine Quad .5 mL IM 6+ MO (FLUZONE/FLULAVAL/FLU ARIX) 2023-03-20 08:14:19 Completed [facility] HPV9 2023-03-20 08:14:19 Completed [facility] Influenza Virus Vaccine Quad IM, Preserv and ABX Free 6 MO-64 YRS (FLUCELVAX) 2023-03-20 08:14:19 Completed [facility] SARS-COV-2 COVID-19 MODERNA 12+ YRS VACCINE 2023-03-20 08:14:19 Completed [facility] Meningococcal Polysaccharide (groups A, C, Y and W-135) conjugate vaccine (MCV4P) 2023-03-19 16:00:00 Completed [facility] DTAP 2023-03-19 16:00:00 Completed [facility] HIB 4 Dose Schedule 2023-03-19 16:00:00 Completed [facility] MMR 2023-03-19 16:00:00 Completed [facility] Polio (IPV/OPV) 2023-03-19 16:00:00 Completed [facility] Varicella (varivax)(chicken pox) 2023-03-19 16:00:00 Completed [facility] Hep B, Adol or Pedi Dosage 2023-03-19 16:00:00 Completed [facility] TDAP 2023-03-19 16:00:00 Completed [facility] Influenza Virus Vaccine Quad .5 mL IM 6+ MO (FLUZONE/FLULAVAL/FLU ARIX) 2023-03-19 16:00:00 Completed [facility] HPV9 2023-03-19 16:00:00 Completed [facility] Influenza Virus Vaccine Quad IM, Preserv and ABX Free 6 MO-64 YRS (FLUCELVAX) 2023-03-19 16:00:00 Completed [facility] SARS-COV-2 COVID-19 MODERNA 12+ YRS VACCINE 2023-03-19 16:00:00 Completed [facility] DTAP 2023-03-19 00:00:00 Completed [facility] HIB 4 Dose Schedule 2023-03-19 00:00:00 Completed [facility] MMR 2023-03-19 00:00:00 Completed [facility] Polio (IPV/OPV) 2023-03-19 00:00:00 Completed [facility] Varicella (varivax)(chicken pox) 2023-03-19 00:00:00 Completed [facility] Hep B, Adol or Pedi Dosage 2023-03-19 00:00:00 Completed [facility] Meningococcal Polysaccharide (groups A, C, Y and W-135) conjugate vaccine (MCV4P) 2023-03-19 00:00:00 Completed [facility] TDAP 2023-03-19 00:00:00 Completed [facility] Influenza Virus Vaccine Quad .5 mL IM 6+ MO (FLUZONE/FLULAVAL/FLU ARIX) 2023-03-19 00:00:00 Completed [facility] HPV9 2023-03-19 00:00:00 Completed [facility] Influenza Virus Vaccine Quad IM, Preserv and ABX Free 6 MO-64 YRS (FLUCELVAX) 2023-03-19 00:00:00 Completed [facility] SARS-COV-2 COVID-19 MODERNA 12+ YRS VACCINE 2023-03-19 00:00:00 Completed [facility] DTAP 2023-01-29 00:00:00 Completed [facility] HIB 4 Dose Schedule 2023-01-29 00:00:00 Completed [facility] MMR 2023-01-29 00:00:00 Completed [facility] Polio (IPV/OPV) 2023-01-29 00:00:00 Completed [facility] Varicella (varivax)(chicken pox) 2023-01-29 00:00:00 Completed [facility] Hep B, Adol or Pedi Dosage 2023-01-29 00:00:00 Completed [facility] Meningococcal Polysaccharide (groups A, C, Y and W-135) conjugate vaccine (MCV4P) 2023-01-29 00:00:00 Completed [facility] TDAP 2023-01-29 00:00:00 Completed [facility] Influenza Virus Vaccine Quad .5 mL IM 6+ MO (FLUZONE/FLULAVAL/FLU ARIX) 2023-01-29 00:00:00 Completed [facility] HPV9 2023-01-29 00:00:00 Completed [facility] Influenza Virus Vaccine Quad IM, Preserv and ABX Free 6 MO-64 YRS (FLUCELVAX) 2023-01-29 00:00:00 Completed [facility] SARS-COV-2 COVID-19 MODERNA 12+ YRS VACCINE 2023-01-29 00:00:00 Completed [facility] DTAP 2023-01-01 06:45:00 Completed [facility] HIB 4 Dose Schedule 2023-01-01 06:45:00 Completed [facility] MMR 2023-01-01 06:45:00 Completed [facility] Polio (IPV/OPV) 2023-01-01 06:45:00 Completed [facility] Varicella (varivax)(chicken pox) 2023-01-01 06:45:00 Completed [facility] Hep B, Adol or Pedi Dosage 2023-01-01 06:45:00 Completed [facility] Meningococcal Polysaccharide (groups A, C, Y and W-135) conjugate vaccine (MCV4P) 2023-01-01 06:45:00 Completed [facility] TDAP 2023-01-01 06:45:00 Completed [facility] Influenza Virus Vaccine Quad .5 mL IM 6+ MO (FLUZONE/FLULAVAL/FLU ARIX) 2023-01-01 06:45:00 Completed [facility] HPV9 2023-01-01 06:45:00 Completed [facility] Influenza Virus Vaccine Quad IM, Preserv and ABX Free 6 MO-64 YRS (FLUCELVAX) 2023-01-01 06:45:00 Completed [facility] SARS-COV-2 COVID-19 MODERNA 12+ YRS VACCINE 2023-01-01 06:45:00 Completed [facility] DTAP 2022-12-27 08:30:00 Completed [facility] HIB 4 Dose Schedule 2022-12-27 08:30:00 Completed [facility] MMR 2022-12-27 08:30:00 Completed [facility] Polio (IPV/OPV) 2022-12-27 08:30:00 Completed [facility] Varicella (varivax)(chicken pox) 2022-12-27 08:30:00 Completed [facility] Hep B, Adol or Pedi Dosage 2022-12-27 08:30:00 Completed [facility] Meningococcal Polysaccharide (groups A, C, Y and W-135) conjugate vaccine (MCV4P) 2022-12-27 08:30:00 Completed [facility] TDAP 2022-12-27 08:30:00 Completed [facility] Influenza Virus Vaccine Quad .5 mL IM 6+ MO (FLUZONE/FLULAVAL/FLU ARIX) 2022-12-27 08:30:00 Completed [facility] HPV9 2022-12-27 08:30:00 Completed [facility] Influenza Virus Vaccine Quad IM, Preserv and ABX Free 6 MO-64 YRS (FLUCELVAX) 2022-12-27 08:30:00 Completed [facility] SARS-COV-2 COVID-19 MODERNA 12+ YRS VACCINE 2022-12-27 08:30:00 Completed [facility] TDAP 2022-10-22 00:00:00 Completed [facility] TDAP 2022-10-22 00:00:00 Completed [facility] TDAP 2022-10-22 00:00:00 Completed [facility] TDAP 2022-10-22 00:00:00 Completed [facility] TDAP 2022-10-22 00:00:00 Completed [facility] TDAP 2022-10-22 00:00:00 Completed [facility] TDAP 2022-10-22 00:00:00 Completed [facility] TDAP 2022-10-22 00:00:00 Completed [facility] TDAP 2022-10-22 00:00:00 Completed [facility] TDAP 2022-10-22 00:00:00 Completed [facility] TDAP 2022-10-22 00:00:00 Completed [facility] DTAP 2022-06-17 00:00:00 Completed [facility] HIB 4 Dose Schedule 2022-06-17 00:00:00 Completed [facility] MMR 2022-06-17 00:00:00 Completed [facility] Polio (IPV/OPV) 2022-06-17 00:00:00 Completed [facility] Varicella (varivax)(chicken pox) 2022-06-17 00:00:00 Completed [facility] Hep B, Adol or Pedi Dosage 2022-06-17 00:00:00 Completed [facility] Meningococcal Polysaccharide (groups A, C, Y and W-135) conjugate vaccine (MCV4P) 2022-06-17 00:00:00 Completed [facility] TDAP 2022-06-17 00:00:00 Completed [facility] Influenza Virus Vaccine Quad .5 mL IM 6+ MO (FLUZONE/FLULAVAL/FLU ARIX) 2022-06-17 00:00:00 Completed [facility] HPV9 2022-06-17 00:00:00 Completed [facility] Influenza Virus Vaccine Quad IM, Preserv and ABX Free 6 MO-64 YRS (FLUCELVAX) 2022-06-17 00:00:00 Completed [facility] SARS-COV-2 COVID-19 MODERNA 12+ YRS VACCINE 2022-06-17 00:00:00 Completed [facility] DTAP 2022-06-05 00:00:00 Completed [facility] HIB 4 Dose Schedule 2022-06-05 00:00:00 Completed [facility] MMR 2022-06-05 00:00:00 Completed [facility] Polio (IPV/OPV) 2022-06-05 00:00:00 Completed [facility] Varicella (varivax)(chicken pox) 2022-06-05 00:00:00 Completed [facility] Hep B, Adol or Pedi Dosage 2022-06-05 00:00:00 Completed [facility] Meningococcal Polysaccharide (groups A, C, Y and W-135) conjugate vaccine (MCV4P) 2022-06-05 00:00:00 Completed [facility] TDAP 2022-06-05 00:00:00 Completed [facility] Influenza Virus Vaccine Quad .5 mL IM 6+ MO (FLUZONE/FLULAVAL/FLU ARIX) 2022-06-05 00:00:00 Completed [facility] HPV9 2022-06-05 00:00:00 Completed [facility] Influenza Virus Vaccine Quad IM, Preserv and ABX Free 6 MO-64 YRS (FLUCELVAX) 2022-06-05 00:00:00 Completed [facility] SARS-COV-2 COVID-19 MODERNA 12+ YRS VACCINE 2022-06-05 00:00:00 Completed [facility] DTAP 2022-04-30 00:00:00 Completed [facility] HIB 4 Dose Schedule 2022-04-30 00:00:00 Completed [facility] MMR 2022-04-30 00:00:00 Completed [facility] Polio (IPV/OPV) 2022-04-30 00:00:00 Completed [facility] Varicella (varivax)(chicken pox) 2022-04-30 00:00:00 Completed [facility] Hep B, Adol or Pedi Dosage 2022-04-30 00:00:00 Completed [facility] Meningococcal Polysaccharide (groups A, C, Y and W-135) conjugate vaccine (MCV4P) 2022-04-30 00:00:00 Completed [facility] TDAP 2022-04-30 00:00:00 Completed [facility] Influenza Virus Vaccine Quad .5 mL IM 6+ MO (FLUZONE/FLULAVAL/FLU ARIX) 2022-04-30 00:00:00 Completed [facility] HPV9 2022-04-30 00:00:00 Completed [facility] Influenza Virus Vaccine Quad IM, Preserv and ABX Free 6 MO-64 YRS (FLUCELVAX) 2022-04-30 00:00:00 Completed [facility] SARS-COV-2 COVID-19 MODERNA 12+ YRS VACCINE 2022-04-30 00:00:00 Completed [facility] Influenza Virus Vaccine Quad IM, Preserv and ABX Free 6 MO-64 YRS 2022-04-09 00:00:00 Completed [facility] Influenza Virus Vaccine Quad IM, Preserv and ABX Free 6 MO-64 YRS 2022-04-09 00:00:00 Completed [facility] Influenza Virus Vaccine Quad IM, Preserv and ABX Free 6 MO-64 YRS 2022-04-09 00:00:00 Completed [facility] Influenza Virus Vaccine Quad IM, Preserv and ABX Free 6 MO-64 YRS 2022-04-09 00:00:00 Completed [facility] Influenza Virus Vaccine Quad IM, Preserv and ABX Free 6 MO-64 YRS 2022-04-09 00:00:00 Completed [facility] Influenza Virus Vaccine Quad IM, Preserv and ABX Free 6 MO-64 YRS 2022-04-09 00:00:00 Completed [facility] Influenza Virus Vaccine Quad IM, Preserv and ABX Free 6 MO-64 YRS 2022-04-09 00:00:00 Completed [facility] Influenza Virus Vaccine Quad IM, Preserv and ABX Free 6 MO-64 2022-04-09 00:00:00 Completed [facility] Influenza Virus Vaccine Quad IM, Preserv and ABX Free 6 MO-64 YRS 2022-04-09 00:00:00 Completed [facility] Influenza Virus Vaccine Quad IM, Preserv and ABX Free 6 MO-64 YRS 2022-04-09 00:00:00 Completed [facility] Influenza Virus Vaccine Quad IM, Preserv and ABX Free 6 MO-64 YRS 2022-04-09 00:00:00 Completed [facility] Influenza Virus Vaccine Quad IM, Preserv and ABX Free 6 MO-64 2022-04-09 00:00:00 Completed [facility] Influenza Virus Vaccine Quad IM, Preserv and ABX Free 6 MO-64 YRS 2022-04-09 00:00:00 Completed [facility] Influenza Virus Vaccine Quad IM, Preserv and ABX Free 6 MO-64 YRS 2022-04-09 00:00:00 Completed [facility] Influenza Virus Vaccine Quad IM, Preserv and ABX Free 6 MO-64 YRS 2022-04-09 00:00:00 Completed [facility] Influenza Virus Vaccine Quad IM, Preserv and ABX Free 6 MO-64 YRS 2022-04-09 00:00:00 Completed [facility] Influenza Virus Vaccine Quad IM, Preserv and ABX Free 6 MO-64 YRS 2022-04-09 00:00:00 Completed [facility] Influenza Virus Vaccine Quad IM, Preserv and ABX Free 6 MO-64 YRS 2022-04-09 00:00:00 Completed [facility] Influenza Virus Vaccine Quad IM, Preserv and ABX Free 6 MO-64 YRS 2022-04-09 00:00:00 Completed [facility] Influenza Virus Vaccine Quad IM, Preserv and ABX Free 6 MO-64 YRS 2022-04-09 00:00:00 Completed [facility] Influenza Virus Vaccine Quad IM, Preserv and ABX Free 6 MO-64 YRS 2022-04-09 00:00:00 Completed [facility] Influenza Virus Vaccine Quad IM, Preserv and ABX Free 6 MO-64 YRS 2022-04-09 00:00:00 Completed [facility] Influenza Virus Vaccine Quad IM, Preserv and ABX Free 6 MO-64 YRS 2022-04-09 00:00:00 Completed [facility] Influenza Virus Vaccine Quad IM, Preserv and ABX Free 6 MO-64 YRS 2022-04-09 00:00:00 Completed [facility] Influenza Virus Vaccine Quad IM, Preserv and ABX Free 6 MO-64 YRS 2022-04-09 00:00:00 Completed [facility] Influenza Virus Vaccine Quad IM, Preserv and ABX Free 6 MO-64 YRS 2022-04-09 00:00:00 Completed [facility] Influenza Virus Vaccine Quad IM, Preserv and ABX Free 6 MO-64 YRS 2022-04-09 00:00:00 Completed [facility] Influenza Virus Vaccine Quad IM, Preserv and ABX Free 6 MO-64 YRS 2022-04-09 00:00:00 Completed [facility] Influenza Virus Vaccine Quad IM, Preserv and ABX Free 6 MO-64 YRS 2022-04-09 00:00:00 Completed [facility] Influenza Virus Vaccine Quad IM, Preserv and ABX Free 6 MO-64 YRS 2022-04-09 00:00:00 Completed [facility] Influenza Virus Vaccine Quad IM, Preserv and ABX Free 6 MO-64 YRS 2022-04-09 00:00:00 Completed [facility] Influenza Virus Vaccine Quad IM, Preserv and ABX Free 6 MO-64 YRS 2022-04-09 00:00:00 Completed [facility] Influenza Virus Vaccine Quad IM, Preserv and ABX Free 6 MO-64 YRS 2022-04-09 00:00:00 Completed [facility] Influenza Virus Vaccine Quad IM, Preserv and ABX Free 6 MO-64 YRS 2022-04-09 00:00:00 Completed [facility] Influenza Virus Vaccine Quad IM, Preserv and ABX Free 6 MO-64 YRS 2022-04-09 00:00:00 Completed [facility] Influenza Virus Vaccine Quad IM, Preserv and ABX Free 6 MO-64 YRS 2022-04-09 00:00:00 Completed [facility] Influenza Virus Vaccine Quad IM, Preserv and ABX Free 6 MO-64 YRS 2022-04-09 00:00:00 Completed [facility] Influenza Virus Vaccine Quad IM, Preserv and ABX Free 6 MO-64 YRS 2022-04-09 00:00:00 Completed [facility] Influenza Virus Vaccine Quad IM, Preserv and ABX Free 6 MO-64 YRS 2022-04-09 00:00:00 Completed [facility] Influenza Virus Vaccine Quad IM, Preserv and ABX Free 6 MO-64 YRS 2022-04-09 00:00:00 Completed [facility] Influenza Virus Vaccine Quad IM, Preserv and ABX Free 6 MO-64 YRS 2022-04-09 00:00:00 Completed [facility] Influenza Virus Vaccine Quad IM, Preserv and ABX Free 6 MO-64 YRS 2022-04-09 00:00:00 Completed [facility] Influenza Virus Vaccine Quad IM, Preserv and ABX Free 6 MO-64 YRS 2022-04-09 00:00:00 Completed [facility] Influenza Virus Vaccine Quad IM, Preserv and ABX Free 6 MO-64 YRS 2022-04-09 00:00:00 Completed [facility] Influenza Virus Vaccine Quad IM, Preserv and ABX Free 6 MO-64 YRS 2022-04-09 00:00:00 Completed [facility] Influenza Virus Vaccine Quad IM, Preserv and ABX Free 6 MO-64 YRS 2022-04-09 00:00:00 Completed [facility] Influenza Virus Vaccine Quad IM, Preserv and ABX Free 6 MO-64 YRS 2022-04-09 00:00:00 Completed [facility] Influenza Virus Vaccine Quad IM, Preserv and ABX Free 6 MO-64 YRS 2022-04-09 00:00:00 Completed [facility] Influenza Virus Vaccine Quad IM, Preserv and ABX Free 6 MO-64 YRS 2022-04-09 00:00:00 Completed [facility] Influenza Virus Vaccine Quad IM, Preserv and ABX Free 6 MO-64 YRS 2022-04-09 00:00:00 Completed [facility] Influenza Virus Vaccine Quad IM, Preserv and ABX Free 6 MO-64 YRS 2022-04-09 00:00:00 Completed [facility] Influenza Virus Vaccine Quad IM, Preserv and ABX Free 6 MO-64 YRS 2022-04-09 00:00:00 Completed [facility] Influenza Virus Vaccine Quad IM, Preserv and ABX Free 6 MO-64 YRS 2022-04-09 00:00:00 Completed [facility] Influenza Virus Vaccine Quad IM, Preserv and ABX Free 6 MO-64 YRS 2022-04-09 00:00:00 Completed [facility] Influenza Virus Vaccine Quad IM, Preserv and ABX Free 6 MO-64 YRS 2022-04-09 00:00:00 Completed [facility] Influenza Virus Vaccine Quad IM, Preserv and ABX Free 6 MO-64 2022-04-09 00:00:00 Completed [facility] Influenza Virus Vaccine Quad IM, Preserv and ABX Free 6 MO-64 YRS 2022-04-09 00:00:00 Completed [facility] Influenza Virus Vaccine Quad IM, Preserv and ABX Free 6 MO-64 YRS 2022-04-09 00:00:00 Completed [facility] Influenza Virus Vaccine Quad IM, Preserv and ABX Free 6 MO-64 YRS 2022-04-09 00:00:00 Completed [facility] Influenza Virus Vaccine Quad IM, Preserv and ABX Free 6 MO-64 YRS 2022-04-09 00:00:00 Completed [facility] Influenza Virus Vaccine Quad IM, Preserv and ABX Free 6 MO-64 YRS 2022-04-09 00:00:00 Completed [facility] Influenza Virus Vaccine Quad IM, Preserv and ABX Free 6 MO-64 YRS (FLUCELVAX) 2022-04-09 00:00:00 Completed [facility] Influenza Virus Vaccine Quad IM, Preserv and ABX Free 6 MO-64 YRS (FLUCELVAX) 2022-04-09 00:00:00 Completed [facility] SARS-COV-2 COVID-19 MODERNA 12+ YRS VACCINE 2021-04-11 00:00:00 Completed [facility] SARS-COV-2 COVID-19 MODERNA 12+ YRS VACCINE 2021-04-11 00:00:00 Completed [facility] SARS-COV-2 COVID-19 MODERNA 12+ YRS VACCINE 2021-04-11 00:00:00 Completed [facility] SARS-COV-2 COVID-19 MODERNA 12+ YRS VACCINE 2021-04-11 00:00:00 Completed [facility] SARS-COV-2 COVID-19 MODERNA 12+ YRS VACCINE 2021-04-11 00:00:00 Completed [facility] SARS-COV-2 COVID-19 MODERNA 12+ YRS VACCINE 2021-04-11 00:00:00 Completed [facility] SARS-COV-2 COVID-19 MODERNA 12+ YRS VACCINE 2021-04-11 00:00:00 Completed [facility] SARS-COV-2 COVID-19 MODERNA 12+ YRS VACCINE 2021-04-11 00:00:00 Completed [facility] SARS-COV-2 COVID-19 MODERNA 12+ YRS VACCINE 2021-04-11 00:00:00 Completed [facility] SARS-COV-2 COVID-19 MODERNA 12+ YRS VACCINE 2021-04-11 00:00:00 Completed [facility] SARS-COV-2 COVID-19 MODERNA 12+ YRS VACCINE 2021-04-11 00:00:00 Completed [facility] SARS-COV-2 COVID-19 MODERNA 12+ YRS VACCINE 2021-04-11 00:00:00 Completed [facility] SARS-COV-2 COVID-19 MODERNA 12+ YRS VACCINE 2021-04-11 00:00:00 Completed [facility] SARS-COV-2 COVID-19 MODERNA 12+ YRS VACCINE 2021-04-11 00:00:00 Completed [facility] SARS-COV-2 COVID-19 MODERNA 12+ YRS VACCINE 2021-04-11 00:00:00 Completed [facility] SARS-COV-2 COVID-19 MODERNA 12+ YRS VACCINE 2021-04-11 00:00:00 Completed [facility] SARS-COV-2 COVID-19 MODERNA 12+ YRS VACCINE 2021-04-11 00:00:00 Completed [facility] SARS-COV-2 COVID-19 MODERNA 12+ YRS VACCINE 2021-04-11 00:00:00 Completed [facility] SARS-COV-2 COVID-19 MODERNA 12+ YRS VACCINE 2021-04-11 00:00:00 Completed [facility] SARS-COV-2 COVID-19 MODERNA 12+ YRS VACCINE 2021-04-11 00:00:00 Completed [facility] SARS-COV-2 COVID-19 MODERNA 12+ YRS VACCINE 2021-04-11 00:00:00 Completed [facility] SARS-COV-2 COVID-19 MODERNA 12+ YRS VACCINE 2021-04-11 00:00:00 Completed [facility] SARS-COV-2 COVID-19 MODERNA 12+ YRS VACCINE 2021-04-11 00:00:00 Completed [facility] SARS-COV-2 COVID-19 MODERNA 12+ YRS VACCINE 2021-04-11 00:00:00 Completed [facility] SARS-COV-2 COVID-19 MODERNA 12+ YRS VACCINE 2021-04-11 00:00:00 Completed [facility] SARS-COV-2 COVID-19 MODERNA 12+ YRS VACCINE 2021-04-11 00:00:00 Completed [facility] SARS-COV-2 COVID-19 MODERNA 12+ YRS VACCINE 2021-04-11 00:00:00 Completed [facility] SARS-COV-2 COVID-19 MODERNA 12+ YRS VACCINE 2021-04-11 00:00:00 Completed [facility] SARS-COV-2 COVID-19 MODERNA 12+ YRS VACCINE 2021-04-11 00:00:00 Completed [facility] SARS-COV-2 COVID-19 MODERNA 12+ YRS VACCINE 2021-04-11 00:00:00 Completed [facility] SARS-COV-2 COVID-19 MODERNA 12+ YRS VACCINE 2021-04-11 00:00:00 Completed [facility] SARS-COV-2 COVID-19 MODERNA 12+ YRS VACCINE 2021-04-11 00:00:00 Completed [facility] SARS-COV-2 COVID-19 MODERNA 12+ YRS VACCINE 2021-04-11 00:00:00 Completed [facility] SARS-COV-2 COVID-19 MODERNA 12+ YRS VACCINE 2021-04-11 00:00:00 Completed [facility] SARS-COV-2 COVID-19 MODERNA 12+ YRS VACCINE 2021-04-11 00:00:00 Completed [facility] SARS-COV-2 COVID-19 MODERNA 12+ YRS VACCINE 2021-04-11 00:00:00 Completed [facility] SARS-COV-2 COVID-19 MODERNA 12+ YRS VACCINE 2021-04-11 00:00:00 Completed [facility] SARS-COV-2 COVID-19 MODERNA 12+ YRS VACCINE 2021-04-11 00:00:00 Completed [facility] SARS-COV-2 COVID-19 MODERNA 12+ YRS VACCINE 2021-04-11 00:00:00 Completed [facility] SARS-COV-2 COVID-19 MODERNA 12+ YRS VACCINE 2021-04-11 00:00:00 Completed [facility] SARS-COV-2 COVID-19 MODERNA 12+ YRS VACCINE 2021-04-11 00:00:00 Completed [facility] SARS-COV-2 COVID-19 MODERNA 12+ YRS VACCINE 2021-04-11 00:00:00 Completed [facility] SARS-COV-2 COVID-19 MODERNA 12+ YRS VACCINE 2021-04-11 00:00:00 Completed [facility] SARS-COV-2 COVID-19 MODERNA 12+ YRS VACCINE 2021-04-11 00:00:00 Completed [facility] SARS-COV-2 COVID-19 MODERNA 12+ YRS VACCINE 2021-04-11 00:00:00 Completed [facility] SARS-COV-2 COVID-19 MODERNA 12+ YRS VACCINE 2021-04-11 00:00:00 Completed [facility] SARS-COV-2 COVID-19 MODERNA 12+ YRS VACCINE 2021-04-11 00:00:00 Completed [facility] SARS-COV-2 COVID-19 MODERNA 12+ YRS VACCINE 2021-04-11 00:00:00 Completed [facility] SARS-COV-2 COVID-19 MODERNA 12+ YRS VACCINE 2021-04-11 00:00:00 Completed [facility] SARS-COV-2 COVID-19 MODERNA 12+ YRS VACCINE 2021-04-11 00:00:00 Completed [facility] SARS-COV-2 COVID-19 MODERNA 12+ YRS VACCINE 2021-04-11 00:00:00 Completed [facility] SARS-COV-2 COVID-19 MODERNA 12+ YRS VACCINE 2021-04-11 00:00:00 Completed [facility] SARS-COV-2 COVID-19 MODERNA 12+ YRS VACCINE 2021-04-11 00:00:00 Completed [facility] SARS-COV-2 COVID-19 MODERNA 12+ YRS VACCINE 2021-04-11 00:00:00 Completed [facility] SARS-COV-2 COVID-19 MODERNA 12+ YRS VACCINE 2021-04-11 00:00:00 Completed [facility] SARS-COV-2 COVID-19 MODERNA 12+ YRS VACCINE 2021-04-11 00:00:00 Completed [facility] SARS-COV-2 COVID-19 MODERNA 12+ YRS VACCINE 2021-04-11 00:00:00 Completed [facility] SARS-COV-2 COVID-19 MODERNA 12+ YRS VACCINE 2021-04-11 00:00:00 Completed [facility] SARS-COV-2 COVID-19 MODERNA 12+ YRS VACCINE 2021-04-11 00:00:00 Completed [facility] SARS-COV-2 COVID-19 MODERNA 12+ YRS VACCINE 2021-04-11 00:00:00 Completed [facility] SARS-COV-2 COVID-19 MODERNA 12+ YRS VACCINE 2021-04-11 00:00:00 Completed [facility] SARS-COV-2 COVID-19 MODERNA 12+ YRS VACCINE 2021-04-11 00:00:00 Completed [facility] SARS-COV-2 COVID-19 MODERNA 12+ YRS VACCINE 2021-04-11 00:00:00 Completed [facility] SARS-COV-2 COVID-19 MODERNA 12+ YRS VACCINE 2021-04-11 00:00:00 Completed [facility] SARS-COV-2 COVID-19 MODERNA 12+ YRS VACCINE 2021-04-11 00:00:00 Completed [facility] SARS-COV-2 COVID-19 MODERNA 12+ YRS VACCINE 2021-04-11 00:00:00 Completed [facility] SARS-COV-2 COVID-19 MODERNA 12+ YRS VACCINE 2021-04-11 00:00:00 Completed [facility] SARS-COV-2 COVID-19 MODERNA 12+ YRS VACCINE 2021-04-11 00:00:00 Completed [facility] SARS-COV-2 COVID-19 MODERNA 12+ YRS VACCINE 2021-04-11 00:00:00 Completed [facility] SARS-COV-2 COVID-19 MODERNA 12+ YRS VACCINE 2021-04-11 00:00:00 Completed [facility] SARS-COV-2 COVID-19 MODERNA 12+ YRS VACCINE 2021-04-11 00:00:00 Completed [facility] SARS-COV-2 COVID-19 MODERNA 12+ YRS VACCINE 2021-04-11 00:00:00 Completed [facility] SARS-COV-2 COVID-19 MODERNA 12+ YRS VACCINE 2021-04-11 00:00:00 Completed [facility] SARS-COV-2 COVID-19 MODERNA 12+ YRS VACCINE 2021-04-11 00:00:00 Completed [facility] SARS-COV-2 COVID-19 MODERNA 12+ YRS VACCINE 2021-04-11 00:00:00 Completed [facility] SARS-COV-2 COVID-19 MODERNA 12+ YRS VACCINE 2021-04-11 00:00:00 Completed [facility] SARS-COV-2 COVID-19 MODERNA 12+ YRS VACCINE 2021-04-11 00:00:00 Completed [facility] SARS-COV-2 COVID-19 MODERNA 12+ YRS VACCINE 2021-04-11 00:00:00 Completed [facility] SARS-COV-2 COVID-19 MODERNA 12+ YRS VACCINE 2021-04-11 00:00:00 Completed [facility] SARS-COV-2 COVID-19 MODERNA 12+ YRS VACCINE 2021-04-11 00:00:00 Completed [facility] SARS-COV-2 COVID-19 MODERNA 12+ YRS VACCINE 2021-04-11 00:00:00 Completed [facility] SARS-COV-2 COVID-19 MODERNA 12+ YRS VACCINE 2021-04-11 00:00:00 Completed [facility] SARS-COV-2 COVID-19 MODERNA 12+ YRS VACCINE 2021-03-14 00:00:00 Completed [facility] SARS-COV-2 COVID-19 MODERNA 12+ YRS VACCINE 2021-03-14 00:00:00 Completed [facility] SARS-COV-2 COVID-19 MODERNA 12+ YRS VACCINE 2021-03-14 00:00:00 Completed [facility] SARS-COV-2 COVID-19 MODERNA 12+ YRS VACCINE 2021-03-14 00:00:00 Completed [facility] SARS-COV-2 COVID-19 MODERNA 12+ YRS VACCINE 2021-03-14 00:00:00 Completed [facility] SARS-COV-2 COVID-19 MODERNA 12+ YRS VACCINE 2021-03-14 00:00:00 Completed [facility] SARS-COV-2 COVID-19 MODERNA 12+ YRS VACCINE 2021-03-14 00:00:00 Completed [facility] SARS-COV-2 COVID-19 MODERNA 12+ YRS VACCINE 2021-03-14 00:00:00 Completed [facility] SARS-COV-2 COVID-19 MODERNA 12+ YRS VACCINE 2021-03-14 00:00:00 Completed [facility] SARS-COV-2 COVID-19 MODERNA 12+ YRS VACCINE 2021-03-14 00:00:00 Completed [facility] SARS-COV-2 COVID-19 MODERNA 12+ YRS VACCINE 2021-03-14 00:00:00 Completed [facility] SARS-COV-2 COVID-19 MODERNA 12+ YRS VACCINE 2021-03-14 00:00:00 Completed [facility] SARS-COV-2 COVID-19 MODERNA 12+ YRS VACCINE 2021-03-14 00:00:00 Completed [facility] SARS-COV-2 COVID-19 MODERNA 12+ YRS VACCINE 2021-03-14 00:00:00 Completed [facility] SARS-COV-2 COVID-19 MODERNA 12+ YRS VACCINE 2021-03-14 00:00:00 Completed [facility] SARS-COV-2 COVID-19 MODERNA 12+ YRS VACCINE 2021-03-14 00:00:00 Completed [facility] [facility] SARS-COV-2 COVID-19 MODERNA 12+ YRS VACCINE 2021-03-14 00:00:00 Completed [facility] SARS-COV-2 COVID-19 MODERNA 12+ YRS VACCINE 2021-03-14 00:00:00 Completed [facility] SARS-COV-2 COVID-19 MODERNA 12+ YRS VACCINE 2021-03-14 00:00:00 Completed [facility] SARS-COV-2 COVID-19 MODERNA 12+ YRS VACCINE 2021-03-14 00:00:00 Completed [facility] SARS-COV-2 COVID-19 MODERNA 12+ YRS VACCINE 2021-03-14 00:00:00 Completed [facility] SARS-COV-2 COVID-19 MODERNA 12+ YRS VACCINE 2021-03-14 00:00:00 Completed [facility] SARS-COV-2 COVID-19 MODERNA 12+ YRS VACCINE 2021-03-14 00:00:00 Completed [facility] SARS-COV-2 COVID-19 MODERNA 12+ YRS VACCINE 2021-03-14 00:00:00 Completed [facility] SARS-COV-2 COVID-19 MODERNA 12+ YRS VACCINE 2021-03-14 00:00:00 Completed [facility] SARS-COV-2 COVID-19 MODERNA 12+ YRS VACCINE 2021-03-14 00:00:00 Completed [facility] SARS-COV-2 COVID-19 MODERNA 12+ YRS VACCINE 2021-03-14 00:00:00 Completed [facility] SARS-COV-2 COVID-19 MODERNA 12+ YRS VACCINE 2021-03-14 00:00:00 Completed [facility] SARS-COV-2 COVID-19 MODERNA 12+ YRS VACCINE 2021-03-14 00:00:00 Completed [facility] SARS-COV-2 COVID-19 MODERNA 12+ YRS VACCINE 2021-03-14 00:00:00 Completed [facility] SARS-COV-2 COVID-19 MODERNA 12+ YRS VACCINE 2021-03-14 00:00:00 Completed [facility] SARS-COV-2 COVID-19 MODERNA 12+ YRS VACCINE 2021-03-14 00:00:00 Completed [facility] SARS-COV-2 COVID-19 MODERNA 12+ YRS VACCINE 2021-03-14 00:00:00 Completed [facility] SARS-COV-2 COVID-19 MODERNA 12+ YRS VACCINE 2021-03-14 00:00:00 Completed [facility] SARS-COV-2 COVID-19 MODERNA 12+ YRS VACCINE 2021-03-14 00:00:00 Completed [facility] SARS-COV-2 COVID-19 MODERNA 12+ YRS VACCINE 2021-03-14 00:00:00 Completed [facility] SARS-COV-2 COVID-19 MODERNA 12+ YRS VACCINE 2021-03-14 00:00:00 Completed [facility] SARS-COV-2 COVID-19 MODERNA 12+ YRS VACCINE 2021-03-14 00:00:00 Completed [facility] SARS-COV-2 COVID-19 MODERNA 12+ YRS VACCINE 2021-03-14 00:00:00 Completed [facility] SARS-COV-2 COVID-19 MODERNA 12+ YRS VACCINE 2021-03-14 00:00:00 Completed [facility] SARS-COV-2 COVID-19 MODERNA 12+ YRS VACCINE 2021-03-14 00:00:00 Completed [facility] SARS-COV-2 COVID-19 MODERNA 12+ YRS VACCINE 2021-03-14 00:00:00 Completed [facility] SARS-COV-2 COVID-19 MODERNA 12+ YRS VACCINE 2021-03-14 00:00:00 Completed [facility] SARS-COV-2 COVID-19 MODERNA 12+ YRS VACCINE 2021-03-14 00:00:00 Completed [facility] SARS-COV-2 COVID-19 MODERNA 12+ YRS VACCINE 2021-03-14 00:00:00 Completed [facility] SARS-COV-2 COVID-19 MODERNA 12+ YRS VACCINE 2021-03-14 00:00:00 Completed [facility] SARS-COV-2 COVID-19 MODERNA 12+ YRS VACCINE 2021-03-14 00:00:00 Completed [facility] SARS-COV-2 COVID-19 MODERNA 12+ YRS VACCINE 2021-03-14 00:00:00 Completed [facility] SARS-COV-2 COVID-19 MODERNA 12+ YRS VACCINE 2021-03-14 00:00:00 Completed [facility] SARS-COV-2 COVID-19 MODERNA 12+ YRS VACCINE 2021-03-14 00:00:00 Completed [facility] SARS-COV-2 COVID-19 MODERNA 12+ YRS VACCINE 2021-03-14 00:00:00 Completed [facility] SARS-COV-2 COVID-19 MODERNA 12+ YRS VACCINE 2021-03-14 00:00:00 Completed [facility] SARS-COV-2 COVID-19 MODERNA 12+ YRS VACCINE 2021-03-14 00:00:00 Completed [facility] SARS-COV-2 COVID-19 MODERNA 12+ YRS VACCINE 2021-03-14 00:00:00 Completed [facility] SARS-COV-2 COVID-19 MODERNA 12+ YRS VACCINE 2021-03-14 00:00:00 Completed [facility] SARS-COV-2 COVID-19 MODERNA 12+ YRS VACCINE 2021-03-14 00:00:00 Completed [facility] SARS-COV-2 COVID-19 MODERNA 12+ YRS VACCINE 2021-03-14 00:00:00 Completed [facility] SARS-COV-2 COVID-19 MODERNA 12+ YRS VACCINE 2021-03-14 00:00:00 Completed [facility] SARS-COV-2 COVID-19 MODERNA 12+ YRS VACCINE 2021-03-14 00:00:00 Completed [facility] SARS-COV-2 COVID-19 MODERNA 12+ YRS VACCINE 2021-03-14 00:00:00 Completed [facility] SARS-COV-2 COVID-19 MODERNA 12+ YRS VACCINE 2021-03-14 00:00:00 Completed [facility] SARS-COV-2 COVID-19 MODERNA 12+ YRS VACCINE 2021-03-14 00:00:00 Completed [facility] SARS-COV-2 COVID-19 MODERNA 12+ YRS VACCINE 2021-03-14 00:00:00 Completed [facility] SARS-COV-2 COVID-19 MODERNA 12+ YRS VACCINE 2021-03-14 00:00:00 Completed [facility] SARS-COV-2 COVID-19 MODERNA 12+ YRS VACCINE 2021-03-14 00:00:00 Completed [facility] SARS-COV-2 COVID-19 MODERNA 12+ YRS VACCINE 2021-03-14 00:00:00 Completed [facility] SARS-COV-2 COVID-19 MODERNA 12+ YRS VACCINE 2021-03-14 00:00:00 Completed [facility] SARS-COV-2 COVID-19 MODERNA 12+ YRS VACCINE 2021-03-14 00:00:00 Completed [facility] SARS-COV-2 COVID-19 MODERNA 12+ YRS VACCINE 2021-03-14 00:00:00 Completed [facility] SARS-COV-2 COVID-19 MODERNA 12+ YRS VACCINE 2021-03-14 00:00:00 Completed [facility] SARS-COV-2 COVID-19 MODERNA 12+ YRS VACCINE 2021-03-14 00:00:00 Completed [facility] SARS-COV-2 COVID-19 MODERNA 12+ YRS VACCINE 2021-03-14 00:00:00 Completed [facility] SARS-COV-2 COVID-19 MODERNA 12+ YRS VACCINE 2021-03-14 00:00:00 Completed [facility] SARS-COV-2 COVID-19 MODERNA 12+ YRS VACCINE 2021-03-14 00:00:00 Completed [facility] SARS-COV-2 COVID-19 MODERNA 12+ YRS VACCINE 2021-03-14 00:00:00 Completed [facility] SARS-COV-2 COVID-19 MODERNA 12+ YRS VACCINE 2021-03-14 00:00:00 Completed [facility] SARS-COV-2 COVID-19 MODERNA 12+ YRS VACCINE 2021-03-14 00:00:00 Completed [facility] SARS-COV-2 COVID-19 MODERNA 12+ YRS VACCINE 2021-03-14 00:00:00 Completed [facility] SARS-COV-2 COVID-19 MODERNA 12+ YRS VACCINE 2021-03-14 00:00:00 Completed [facility] SARS-COV-2 COVID-19 MODERNA 12+ YRS VACCINE 2021-03-14 00:00:00 Completed [facility] SARS-COV-2 COVID-19 MODERNA 12+ YRS VACCINE 2021-03-14 00:00:00 Completed [facility] SARS-COV-2 COVID-19 MODERNA 12+ YRS VACCINE 2021-03-14 00:00:00 Completed [facility] Influenza Virus Vaccine Quad IM, Preserv and ABX Free 6 MO-64 YRS 2021-02-05 00:00:00 Completed [facility] HPV9 2021-02-05 00:00:00 Completed [facility] Influenza Virus Vaccine Quad IM, Preserv and ABX Free 6 MO-64 YRS 2021-02-05 00:00:00 Completed [facility] HPV9 2021-02-05 00:00:00 Completed [facility] Influenza Virus Vaccine Quad IM, Preserv and ABX Free 6 MO-64 YRS 2021-02-05 00:00:00 Completed [facility] HPV9 2021-02-05 00:00:00 Completed [facility] Influenza Virus Vaccine Quad IM, Preserv and ABX Free 6 MO-64 YRS 2021-02-05 00:00:00 Completed [facility] HPV9 2021-02-05 00:00:00 Completed [facility] Influenza Virus Vaccine Quad IM, Preserv and ABX Free 6 MO-64 YRS 2021-02-05 00:00:00 Completed [facility] 2021-02-05 00:00:00 Completed [facility] Influenza Virus Vaccine Quad IM, Preserv and ABX Free 6 MO-64 YRS 2021-02-05 00:00:00 Completed [facility] 2021-02-05 00:00:00 Completed [facility] Influenza Virus Vaccine Quad IM, Preserv and ABX Free 6 MO-64 YRS 2021-02-05 00:00:00 Completed [facility] 2021-02-05 00:00:00 Completed [facility] Influenza Virus Vaccine Quad IM, Preserv and ABX Free 6 MO-64 YRS 2021-02-05 00:00:00 Completed [facility] 2021-02-05 00:00:00 Completed [facility] Influenza Virus Vaccine Quad IM, Preserv and ABX Free 6 MO-64 YRS 2021-02-05 00:00:00 Completed [facility] 2021-02-05 00:00:00 Completed [facility] Influenza Virus Vaccine Quad IM, Preserv and ABX Free 6 MO-64 YRS 2021-02-05 00:00:00 Completed [facility] HPV9 2021-02-05 00:00:00 Completed [facility] Influenza Virus Vaccine Quad IM, Preserv and ABX Free 6 MO-64 YRS 2021-02-05 00:00:00 Completed [facility] HPV9 2021-02-05 00:00:00 Completed [facility] Influenza Virus Vaccine Quad IM, Preserv and ABX Free 6 MO-64 YRS 2021-02-05 00:00:00 Completed [facility] HPV9 2021-02-05 00:00:00 Completed [facility] Influenza Virus Vaccine Quad IM, Preserv and ABX Free 6 MO-64 YRS 2021-02-05 00:00:00 Completed [facility] HPV9 2021-02-05 00:00:00 Completed [facility] Influenza Virus Vaccine Quad IM, Preserv and ABX Free 6 MO-64 YRS 2021-02-05 00:00:00 Completed [facility] HPV9 2021-02-05 00:00:00 Completed [facility] Influenza Virus Vaccine Quad IM, Preserv and ABX Free 6 MO-64 YRS 2021-02-05 00:00:00 Completed [facility] HPV9 2021-02-05 00:00:00 Completed [facility] Influenza Virus Vaccine Quad IM, Preserv and ABX Free 6 MO-64 YRS 2021-02-05 00:00:00 Completed [facility] 2021-02-05 00:00:00 Completed [facility] Influenza Virus Vaccine Quad IM, Preserv and ABX Free 6 MO-64 YRS 2021-02-05 00:00:00 Completed [facility] HPV9 2021-02-05 00:00:00 Completed [facility] Influenza Virus Vaccine Quad IM, Preserv and ABX Free 6 MO-64 YRS 2021-02-05 00:00:00 Completed [facility] HPV9 2021-02-05 00:00:00 Completed [facility] Influenza Virus Vaccine Quad IM, Preserv and ABX Free 6 MO-64 YRS 2021-02-05 00:00:00 Completed [facility] HPV9 2021-02-05 00:00:00 Completed [facility] Influenza Virus Vaccine Quad IM, Preserv and ABX Free 6 MO-64 YRS 2021-02-05 00:00:00 Completed [facility] HPV9 2021-02-05 00:00:00 Completed [facility] Influenza Virus Vaccine Quad IM, Preserv and ABX Free 6 MO-64 YRS 2021-02-05 00:00:00 Completed [facility] HPV9 2021-02-05 00:00:00 Completed [facility] Influenza Virus Vaccine Quad IM, Preserv and ABX Free 6 MO-64 YRS 2021-02-05 00:00:00 Completed [facility] HPV9 2021-02-05 00:00:00 Completed [facility] Influenza Virus Vaccine Quad IM, Preserv and ABX Free 6 MO-64 YRS 2021-02-05 00:00:00 Completed [facility] HPV9 2021-02-05 00:00:00 Completed [facility] Influenza Virus Vaccine Quad IM, Preserv and ABX Free 6 MO-64 YRS 2021-02-05 00:00:00 Completed [facility] 2021-02-05 00:00:00 Completed [facility] Influenza Virus Vaccine Quad IM, Preserv and ABX Free 6 MO-64 YRS 2021-02-05 00:00:00 Completed [facility] HPV9 2021-02-05 00:00:00 Completed [facility] Influenza Virus Vaccine Quad IM, Preserv and ABX Free 6 MO-64 YRS 2021-02-05 00:00:00 Completed [facility] HPV9 2021-02-05 00:00:00 Completed [facility] Influenza Virus Vaccine Quad IM, Preserv and ABX Free 6 MO-64 YRS 2021-02-05 00:00:00 Completed [facility] 2021-02-05 00:00:00 Completed [facility] Influenza Virus Vaccine Quad IM, Preserv and ABX Free 6 MO-64 YRS 2021-02-05 00:00:00 Completed [facility] HPV9 2021-02-05 00:00:00 Completed [facility] Influenza Virus Vaccine Quad IM, Preserv and ABX Free 6 MO-64 YRS 2021-02-05 00:00:00 Completed [facility] HPV9 2021-02-05 00:00:00 Completed [facility] Influenza Virus Vaccine Quad IM, Preserv and ABX Free 6 MO-64 YRS 2021-02-05 00:00:00 Completed [facility] HPV9 2021-02-05 00:00:00 Completed [facility] Influenza Virus Vaccine Quad IM, Preserv and ABX Free 6 MO-64 YRS 2021-02-05 00:00:00 Completed [facility] HPV9 2021-02-05 00:00:00 Completed [facility] Influenza Virus Vaccine Quad IM, Preserv and ABX Free 6 MO-64 YRS 2021-02-05 00:00:00 Completed [facility] HPV9 2021-02-05 00:00:00 Completed [facility] Influenza Virus Vaccine Quad IM, Preserv and ABX Free 6 MO-64 YRS 2021-02-05 00:00:00 Completed [facility] HPV9 2021-02-05 00:00:00 Completed [facility] Influenza Virus Vaccine Quad IM, Preserv and ABX Free 6 MO-64 YRS 2021-02-05 00:00:00 Completed [facility] 2021-02-05 00:00:00 Completed [facility] Influenza Virus Vaccine Quad IM, Preserv and ABX Free 6 MO-64 YRS 2021-02-05 00:00:00 Completed [facility] HPV9 2021-02-05 00:00:00 Completed [facility] Influenza Virus Vaccine Quad IM, Preserv and ABX Free 6 MO-64 YRS 2021-02-05 00:00:00 Completed [facility] HPV9 2021-02-05 00:00:00 Completed [facility] Influenza Virus Vaccine Quad IM, Preserv and ABX Free 6 MO-64 YRS 2021-02-05 00:00:00 Completed [facility] HPV9 2021-02-05 00:00:00 Completed [facility] Influenza Virus Vaccine Quad IM, Preserv and ABX Free 6 MO-64 YRS 2021-02-05 00:00:00 Completed [facility] HPV9 2021-02-05 00:00:00 Completed [facility] Influenza Virus Vaccine Quad IM, Preserv and ABX Free 6 MO-64 YRS 2021-02-05 00:00:00 Completed [facility] HPV9 2021-02-05 00:00:00 Completed [facility] Influenza Virus Vaccine Quad IM, Preserv and ABX Free 6 MO-64 YRS 2021-02-05 00:00:00 Completed [facility] HPV9 2021-02-05 00:00:00 Completed [facility] Influenza Virus Vaccine Quad IM, Preserv and ABX Free 6 MO-64 YRS 2021-02-05 00:00:00 Completed [facility] HPV9 2021-02-05 00:00:00 Completed [facility] Influenza Virus Vaccine Quad IM, Preserv and ABX Free 6 MO-64 YRS 2021-02-05 00:00:00 Completed [facility] 2021-02-05 00:00:00 Completed [facility] Influenza Virus Vaccine Quad IM, Preserv and ABX Free 6 MO-64 YRS 2021-02-05 00:00:00 Completed [facility] 2021-02-05 00:00:00 Completed [facility] Influenza Virus Vaccine Quad IM, Preserv and ABX Free 6 MO-64 YRS 2021-02-05 00:00:00 Completed [facility] HPV9 2021-02-05 00:00:00 Completed [facility] Influenza Virus Vaccine Quad IM, Preserv and ABX Free 6 MO-64 YRS 2021-02-05 00:00:00 Completed [facility] HPV9 2021-02-05 00:00:00 Completed [facility] Influenza Virus Vaccine Quad IM, Preserv and ABX Free 6 MO-64 YRS 2021-02-05 00:00:00 Completed [facility] HPV9 2021-02-05 00:00:00 Completed [facility] Influenza Virus Vaccine Quad IM, Preserv and ABX Free 6 MO-64 YRS 2021-02-05 00:00:00 Completed [facility] HPV9 2021-02-05 00:00:00 Completed [facility] Influenza Virus Vaccine Quad IM, Preserv and ABX Free 6 MO-64 YRS 2021-02-05 00:00:00 Completed [facility] 2021-02-05 00:00:00 Completed [facility] Influenza Virus Vaccine Quad IM, Preserv and ABX Free 6 MO-64 YRS 2021-02-05 00:00:00 Completed [facility] HPV9 2021-02-05 00:00:00 Completed [facility] Influenza Virus Vaccine Quad IM, Preserv and ABX Free 6 MO-64 YRS 2021-02-05 00:00:00 Completed [facility] HPV9 2021-02-05 00:00:00 Completed [facility] Influenza Virus Vaccine Quad IM, Preserv and ABX Free 6 MO-64 YRS 2021-02-05 00:00:00 Completed [facility] HPV9 2021-02-05 00:00:00 Completed [facility] Influenza Virus Vaccine Quad IM, Preserv and ABX Free 6 MO-64 YRS 2021-02-05 00:00:00 Completed [facility] HPV9 2021-02-05 00:00:00 Completed [facility] Influenza Virus Vaccine Quad IM, Preserv and ABX Free 6 MO-64 YRS 2021-02-05 00:00:00 Completed [facility] 2021-02-05 00:00:00 Completed [facility] Influenza Virus Vaccine Quad IM, Preserv and ABX Free 6 MO-64 YRS 2021-02-05 00:00:00 Completed [facility] 2021-02-05 00:00:00 Completed [facility] Influenza Virus Vaccine Quad IM, Preserv and ABX Free 6 MO-64 YRS 2021-02-05 00:00:00 Completed [facility] HPV9 2021-02-05 00:00:00 Completed [facility] Influenza Virus Vaccine Quad IM, Preserv and ABX Free 6 MO-64 YRS 2021-02-05 00:00:00 Completed [facility] HPV9 2021-02-05 00:00:00 Completed [facility] Influenza Virus Vaccine Quad IM, Preserv and ABX Free 6 MO-64 YRS 2021-02-05 00:00:00 Completed [facility] HPV9 2021-02-05 00:00:00 Completed [facility] Influenza Virus Vaccine Quad IM, Preserv and ABX Free 6 MO-64 YRS 2021-02-05 00:00:00 Completed [facility] HPV9 2021-02-05 00:00:00 Completed [facility] Influenza Virus Vaccine Quad IM, Preserv and ABX Free 6 MO-64 YRS 2021-02-05 00:00:00 Completed [facility] HPV9 2021-02-05 00:00:00 Completed [facility] Influenza Virus Vaccine Quad IM, Preserv and ABX Free 6 MO-64 YRS 2021-02-05 00:00:00 Completed [facility] HPV9 2021-02-05 00:00:00 Completed [facility] Influenza Virus Vaccine Quad IM, Preserv and ABX Free 6 MO-64 YRS 2021-02-05 00:00:00 Completed [facility] HPV9 2021-02-05 00:00:00 Completed [facility] Influenza Virus Vaccine Quad IM, Preserv and ABX Free 6 MO-64 YRS 2021-02-05 00:00:00 Completed [facility] 2021-02-05 00:00:00 Completed [facility] Influenza Virus Vaccine Quad IM, Preserv and ABX Free 6 MO-64 YRS 2021-02-05 00:00:00 Completed [facility] HPV9 2021-02-05 00:00:00 Completed [facility] Influenza Virus Vaccine Quad IM, Preserv and ABX Free 6 MO-64 YRS 2021-02-05 00:00:00 Completed [facility] HPV9 2021-02-05 00:00:00 Completed [facility] Influenza Virus Vaccine Quad IM, Preserv and ABX Free 6 MO-64 YRS 2021-02-05 00:00:00 Completed [facility] HPV9 2021-02-05 00:00:00 Completed [facility] Influenza Virus Vaccine Quad IM, Preserv and ABX Free 6 MO-64 YRS 2021-02-05 00:00:00 Completed [facility] HPV9 2021-02-05 00:00:00 Completed [facility] Influenza Virus Vaccine Quad IM, Preserv and ABX Free 6 MO-64 YRS 2021-02-05 00:00:00 Completed [facility] HPV9 2021-02-05 00:00:00 Completed [facility] Influenza Virus Vaccine Quad IM, Preserv and ABX Free 6 MO-64 YRS 2021-02-05 00:00:00 Completed [facility] HPV9 2021-02-05 00:00:00 Completed [facility] Influenza Virus Vaccine Quad IM, Preserv and ABX Free 6 MO-64 YRS 2021-02-05 00:00:00 Completed [facility] HPV9 2021-02-05 00:00:00 Completed [facility] Influenza Virus Vaccine Quad IM, Preserv and ABX Free 6 MO-64 YRS 2021-02-05 00:00:00 Completed [facility] HPV9 2021-02-05 00:00:00 Completed [facility] Influenza Virus Vaccine Quad IM, Preserv and ABX Free 6 MO-64 YRS 2021-02-05 00:00:00 Completed [facility] 2021-02-05 00:00:00 Completed [facility] Influenza Virus Vaccine Quad IM, Preserv and ABX Free 6 MO-64 YRS 2021-02-05 00:00:00 Completed [facility] HPV9 2021-02-05 00:00:00 Completed [facility] Influenza Virus Vaccine Quad IM, Preserv and ABX Free 6 MO-64 YRS 2021-02-05 00:00:00 Completed [facility] 2021-02-05 00:00:00 Completed [facility] Influenza Virus Vaccine Quad IM, Preserv and ABX Free 6 MO-64 YRS 2021-02-05 00:00:00 Completed [facility] HPV9 2021-02-05 00:00:00 Completed [facility] Influenza Virus Vaccine Quad IM, Preserv and ABX Free 6 MO-64 YRS 2021-02-05 00:00:00 Completed [facility] 2021-02-05 00:00:00 Completed [facility] Influenza Virus Vaccine Quad IM, Preserv and ABX Free 6 MO-64 YRS 2021-02-05 00:00:00 Completed [facility] HPV9 2021-02-05 00:00:00 Completed [facility] Influenza Virus Vaccine Quad IM, Preserv and ABX Free 6 MO-64 YRS 2021-02-05 00:00:00 Completed [facility] HPV9 2021-02-05 00:00:00 Completed [facility] Influenza Virus Vaccine Quad IM, Preserv and ABX Free 6 MO-64 YRS 2021-02-05 00:00:00 Completed [facility] HPV9 2021-02-05 00:00:00 Completed [facility] Influenza Virus Vaccine Quad IM, Preserv and ABX Free 6 MO-64 YRS 2021-02-05 00:00:00 Completed [facility] HPV9 2021-02-05 00:00:00 Completed [facility] Influenza Virus Vaccine Quad IM, Preserv and ABX Free 6 MO-64 YRS 2021-02-05 00:00:00 Completed [facility] HPV9 2021-02-05 00:00:00 Completed [facility] Influenza Virus Vaccine Quad IM, Preserv and ABX Free 6 MO-64 YRS 2021-02-05 00:00:00 Completed [facility] HPV9 2021-02-05 00:00:00 Completed [facility] Influenza Virus Vaccine Quad IM, Preserv and ABX Free 6 MO-64 YRS (FLUCELVAX) 2021-02-05 00:00:00 Completed [facility] HPV9 2021-02-05 00:00:00 Completed [facility] DTAP 2021-01-23 00:00:00 Completed [facility] HIB 4 Dose Schedule 2021-01-23 00:00:00 Completed [facility] MMR 2021-01-23 00:00:00 Completed [facility] Polio (IPV/OPV) 2021-01-23 00:00:00 Completed [facility] Varicella (varivax)(chicken pox) 2021-01-23 00:00:00 Completed [facility] Hep B, Adol or Pedi Dosage 2021-01-23 00:00:00 Completed [facility] Meningococcal Polysaccharide (groups A, C, Y and W-135) conjugate vaccine (MCV4P) 2021-01-23 00:00:00 Completed [facility] TDAP 2021-01-23 00:00:00 Completed [facility] Influenza Virus Vaccine Quad .5 mL IM 6+ MO (FLUZONE/FLULAVAL/FLU ARIX) 2021-01-23 00:00:00 Completed [facility] HPV9 2021-01-23 00:00:00 Completed [facility] DTAP 2020-07-28 00:00:00 Completed [facility] HIB 4 Dose Schedule 2020-07-28 00:00:00 Completed [facility] MMR 2020-07-28 00:00:00 Completed [facility] Polio (IPV/OPV) 2020-07-28 00:00:00 Completed [facility] Varicella (varivax)(chicken pox) 2020-07-28 00:00:00 Completed [facility] Hep B, Adol or Pedi Dosage 2020-07-28 00:00:00 Completed [facility] Meningococcal Polysaccharide (groups A, C, Y and W-135) conjugate vaccine (MCV4P) 2020-07-28 00:00:00 Completed [facility] TDAP 2020-07-28 00:00:00 Completed [facility] Influenza Virus Vaccine Quad .5 mL IM 6+ MO (FLUZONE/FLULAVAL/FLU ARIX) 2020-07-28 00:00:00 Completed [facility] HPV9 2020-07-28 00:00:00 Completed [facility] HPV9 2020-05-10 00:00:00 Completed [facility] HPV9 2020-05-10 00:00:00 Completed [facility] HPV9 2020-05-10 00:00:00 Completed [facility] HPV9 2020-05-10 00:00:00 Completed [facility] HPV9 2020-05-10 00:00:00 Completed [facility] HPV9 2020-05-10 00:00:00 Completed [facility] HPV9 2020-05-10 00:00:00 Completed [facility] HPV9 2020-05-10 00:00:00 Completed [facility] HPV9 2020-05-10 00:00:00 Completed [facility] HPV9 2020-05-10 00:00:00 Completed [facility] HPV9 2020-05-10 00:00:00 Completed [facility] HPV9 2020-05-10 00:00:00 Completed [facility] HPV9 2020-05-10 00:00:00 Completed [facility] HPV9 2020-05-10 00:00:00 Completed [facility] HPV9 2020-05-10 00:00:00 Completed [facility] HPV9 2020-05-10 00:00:00 Completed [facility] HPV9 2020-05-10 00:00:00 Completed [facility] HPV9 2020-05-10 00:00:00 Completed [facility] HPV9 2020-05-10 00:00:00 Completed [facility] HPV9 2020-05-10 00:00:00 Completed [facility] HPV9 2020-05-10 00:00:00 Completed [facility] HPV9 2020-05-10 00:00:00 Completed [facility] HPV9 2020-05-10 00:00:00 Completed [facility] HPV9 2020-05-10 00:00:00 Completed [facility] HPV9 2020-05-10 00:00:00 Completed [facility] HPV9 2020-05-10 00:00:00 Completed [facility] HPV9 2020-05-10 00:00:00 Completed [facility] HPV9 2020-05-10 00:00:00 Completed [facility] HPV9 2020-05-10 00:00:00 Completed [facility] HPV9 2020-05-10 00:00:00 Completed [facility] HPV9 2020-05-10 00:00:00 Completed [facility] HPV9 2020-05-10 00:00:00 Completed [facility] HPV9 2020-05-10 00:00:00 Completed [facility] HPV9 2020-05-10 00:00:00 Completed [facility] HPV9 2020-05-10 00:00:00 Completed [facility] HPV9 2020-05-10 00:00:00 Completed [facility] HPV9 2020-05-10 00:00:00 Completed [facility] HPV9 2020-05-10 00:00:00 Completed [facility] HPV9 2020-05-10 00:00:00 Completed [facility] HPV9 2020-05-10 00:00:00 Completed [facility] HPV9 2020-05-10 00:00:00 Completed [facility] HPV9 2020-05-10 00:00:00 Completed [facility] HPV9 2020-05-10 00:00:00 Completed [facility] HPV9 2020-05-10 00:00:00 Completed [facility] HPV9 2020-05-10 00:00:00 Completed [facility] HPV9 2020-05-10 00:00:00 Completed [facility] HPV9 2020-05-10 00:00:00 Completed [facility] HPV9 2020-05-10 00:00:00 Completed [facility] HPV9 2020-05-10 00:00:00 Completed [facility] HPV9 2020-05-10 00:00:00 Completed [facility] HPV9 2020-05-10 00:00:00 Completed [facility] HPV9 2020-05-10 00:00:00 Completed [facility] HPV9 2020-05-10 00:00:00 Completed [facility] HPV9 2020-05-10 00:00:00 Completed [facility] HPV9 2020-05-10 00:00:00 Completed [facility] HPV9 2020-05-10 00:00:00 Completed [facility] HPV9 2020-05-10 00:00:00 Completed [facility] HPV9 2020-05-10 00:00:00 Completed [facility] HPV9 2020-05-10 00:00:00 Completed [facility] HPV9 2020-05-10 00:00:00 Completed [facility] HPV9 2020-05-10 00:00:00 Completed [facility] HPV9 2020-05-10 00:00:00 Completed [facility] HPV9 2020-05-10 00:00:00 Completed [facility] HPV9 2020-05-10 00:00:00 Completed [facility] HPV9 2020-05-10 00:00:00 Completed [facility] HPV9 2020-05-10 00:00:00 Completed [facility] HPV9 2020-05-10 00:00:00 Completed [facility] HPV9 2020-05-10 00:00:00 Completed [facility] HPV9 2020-05-10 00:00:00 Completed [facility] HPV9 2020-05-10 00:00:00 Completed [facility] HPV9 2020-05-10 00:00:00 Completed [facility] HPV9 2020-05-10 00:00:00 Completed [facility] HPV9 2020-05-10 00:00:00 Completed [facility] HPV9 2020-05-10 00:00:00 Completed [facility] HPV9 2020-05-10 00:00:00 Completed [facility] HPV9 2020-05-10 00:00:00 Completed [facility] HPV9 2020-05-10 00:00:00 Completed [facility] HPV9 2020-05-10 00:00:00 Completed [facility] HPV9 2020-05-10 00:00:00 Completed [facility] HPV9 2020-05-10 00:00:00 Completed [facility] HPV9 2020-05-10 00:00:00 Completed [facility] HPV9 2020-05-10 00:00:00 Completed [facility] HPV9 2020-05-10 00:00:00 Completed [facility] HPV9 2020-04-11 00:00:00 Completed [facility] HPV9 2020-04-11 00:00:00 Completed [facility] HPV9 2020-04-11 00:00:00 Completed [facility] HPV9 2020-04-11 00:00:00 Completed [facility] HPV9 2020-04-11 00:00:00 Completed [facility] HPV9 2020-04-11 00:00:00 Completed [facility] HPV9 2020-04-11 00:00:00 Completed [facility] HPV9 2020-04-11 00:00:00 Completed [facility] HPV9 2020-04-11 00:00:00 Completed [facility] HPV9 2020-04-11 00:00:00 Completed [facility] HPV9 2020-04-11 00:00:00 Completed [facility] HPV9 2020-04-11 00:00:00 Completed [facility] HPV9 2020-04-11 00:00:00 Completed [facility] HPV9 2020-04-11 00:00:00 Completed [facility] HPV9 2020-04-11 00:00:00 Completed [facility] HPV9 2020-04-11 00:00:00 Completed [facility] HPV9 2020-04-11 00:00:00 Completed [facility] HPV9 2020-04-11 00:00:00 Completed [facility] HPV9 2020-04-11 00:00:00 Completed [facility] HPV9 2020-04-11 00:00:00 Completed [facility] HPV9 2020-04-11 00:00:00 Completed [facility] HPV9 2020-04-11 00:00:00 Completed [facility] HPV9 2020-04-11 00:00:00 Completed [facility] HPV9 2020-04-11 00:00:00 Completed [facility] HPV9 2020-04-11 00:00:00 Completed [facility] HPV9 2020-04-11 00:00:00 Completed [facility] HPV9 2020-04-11 00:00:00 Completed [facility] HPV9 2020-04-11 00:00:00 Completed [facility] HPV9 2020-04-11 00:00:00 Completed [facility] HPV9 2020-04-11 00:00:00 Completed [facility] HPV9 2020-04-11 00:00:00 Completed [facility] HPV9 2020-04-11 00:00:00 Completed [facility] HPV9 2020-04-11 00:00:00 Completed [facility] HPV9 2020-04-11 00:00:00 Completed [facility] HPV9 2020-04-11 00:00:00 Completed [facility] HPV9 2020-04-11 00:00:00 Completed [facility] HPV9 2020-04-11 00:00:00 Completed [facility] HPV9 2020-04-11 00:00:00 Completed [facility] HPV9 2020-04-11 00:00:00 Completed [facility] HPV9 2020-04-11 00:00:00 Completed [facility] HPV9 2020-04-11 00:00:00 Completed [facility] HPV9 2020-04-11 00:00:00 Completed [facility] HPV9 2020-04-11 00:00:00 Completed [facility] HPV9 2020-04-11 00:00:00 Completed [facility] HPV9 2020-04-11 00:00:00 Completed [facility] HPV9 2020-04-11 00:00:00 Completed [facility] HPV9 2020-04-11 00:00:00 Completed [facility] HPV9 2020-04-11 00:00:00 Completed [facility] HPV9 2020-04-11 00:00:00 Completed [facility] HPV9 2020-04-11 00:00:00 Completed [facility] HPV9 2020-04-11 00:00:00 Completed [facility] HPV9 2020-04-11 00:00:00 Completed [facility] HPV9 2020-04-11 00:00:00 Completed [facility] HPV9 2020-04-11 00:00:00 Completed [facility] HPV9 2020-04-11 00:00:00 Completed [facility] HPV9 2020-04-11 00:00:00 Completed [facility] HPV9 2020-04-11 00:00:00 Completed [facility] HPV9 2020-04-11 00:00:00 Completed [facility] HPV9 2020-04-11 00:00:00 Completed [facility] HPV9 2020-04-11 00:00:00 Completed [facility] HPV9 2020-04-11 00:00:00 Completed [facility] HPV9 2020-04-11 00:00:00 Completed [facility] HPV9 2020-04-11 00:00:00 Completed [facility] HPV9 2020-04-11 00:00:00 Completed [facility] HPV9 2020-04-11 00:00:00 Completed [facility] HPV9 2020-04-11 00:00:00 Completed [facility] HPV9 2020-04-11 00:00:00 Completed [facility] HPV9 2020-04-11 00:00:00 Completed [facility] HPV9 2020-04-11 00:00:00 Completed [facility] HPV9 2020-04-11 00:00:00 Completed [facility] HPV9 2020-04-11 00:00:00 Completed [facility] HPV9 2020-04-11 00:00:00 Completed [facility] HPV9 2020-04-11 00:00:00 Completed [facility] HPV9 2020-04-11 00:00:00 Completed [facility] HPV9 2020-04-11 00:00:00 Completed [facility] HPV9 2020-04-11 00:00:00 Completed [facility] HPV9 2020-04-11 00:00:00 Completed [facility] HPV9 2020-04-11 00:00:00 Completed [facility] HPV9 2020-04-11 00:00:00 Completed [facility] HPV9 2020-04-11 00:00:00 Completed [facility] HPV9 2020-04-11 00:00:00 Completed [facility] HPV9 2020-04-11 00:00:00 Completed [facility] DTAP 2020-02-29 00:00:00 Completed [facility] HIB 4 Dose Schedule 2020-02-29 00:00:00 Completed [facility] MMR 2020-02-29 00:00:00 Completed [facility] Polio (IPV/OPV) 2020-02-29 00:00:00 Completed [facility] Varicella (varivax)(chicken pox) 2020-02-29 00:00:00 Completed [facility] Hep B, Adol or Pedi Dosage 2020-02-29 00:00:00 Completed [facility] Meningococcal Polysaccharide (groups A, C, Y and W-135) conjugate vaccine (MCV4P) 2020-02-29 00:00:00 Completed [facility] TDAP 2020-02-29 00:00:00 Completed [facility] Influenza Virus Vaccine Quad .5 mL IM 6+ MO (FLUZONE/FLULAVAL/FLU ARIX) 2020-02-29 00:00:00 Completed [facility] Influenza Virus Vaccine Quad .5 mL IM 6+ MO 2020-01-26 00:00:00 Completed [facility] Influenza Virus Vaccine Quad .5 mL IM 6+ MO 2020-01-26 00:00:00 Completed [facility] Influenza Virus Vaccine Quad .5 mL IM 6+ MO 2020-01-26 00:00:00 Completed [facility] Influenza Virus Vaccine Quad .5 mL IM 6+ MO 2020-01-26 00:00:00 Completed [facility] Influenza Virus Vaccine Quad .5 mL IM 6+ MO 2020-01-26 00:00:00 Completed [facility] Influenza Virus Vaccine Quad .5 mL IM 6+ MO 2020-01-26 00:00:00 Completed [facility] Influenza Virus Vaccine Quad .5 mL IM 6+ MO 2020-01-26 00:00:00 Completed [facility] Influenza Virus Vaccine Quad .5 mL IM 6+ MO 2020-01-26 00:00:00 Completed [facility] Influenza Virus Vaccine Quad .5 mL IM 6+ MO 2020-01-26 00:00:00 Completed [facility] Influenza Virus Vaccine Quad .5 mL IM 6+ MO 2020-01-26 00:00:00 Completed [facility] Influenza Virus Vaccine Quad .5 mL IM 6+ MO 2020-01-26 00:00:00 Completed [facility] Influenza Virus Vaccine Quad .5 mL IM 6+ MO 2020-01-26 00:00:00 Completed [facility] Influenza Virus Vaccine Quad .5 mL IM 6+ MO 2020-01-26 00:00:00 Completed [facility] Influenza Virus Vaccine Quad .5 mL IM 6+ MO 2020-01-26 00:00:00 Completed [facility] Influenza Virus Vaccine Quad .5 mL IM 6+ MO 2020-01-26 00:00:00 Completed [facility] Influenza Virus Vaccine Quad .5 mL IM 6+ MO 2020-01-26 00:00:00 Completed [facility] Influenza Virus Vaccine Quad .5 mL IM 6+ MO 2020-01-26 00:00:00 Completed [facility] Influenza Virus Vaccine Quad .5 mL IM 6+ MO 2020-01-26 00:00:00 Completed [facility] Influenza Virus Vaccine Quad .5 mL IM 6+ MO 2020-01-26 00:00:00 Completed [facility] Influenza Virus Vaccine Quad .5 mL IM 6+ MO 2020-01-26 00:00:00 Completed [facility] Influenza Virus Vaccine Quad .5 mL IM 6+ MO 2020-01-26 00:00:00 Completed [facility] Influenza Virus Vaccine Quad .5 mL IM 6+ MO 2020-01-26 00:00:00 Completed [facility] Influenza Virus Vaccine Quad .5 mL IM 6+ MO 2020-01-26 00:00:00 Completed [facility] Influenza Virus Vaccine Quad .5 mL IM 6+ MO 2020-01-26 00:00:00 Completed [facility] Influenza Virus Vaccine Quad .5 mL IM 6+ MO 2020-01-26 00:00:00 Completed [facility] Influenza Virus Vaccine Quad .5 mL IM 6+ MO 2020-01-26 00:00:00 Completed [facility] Influenza Virus Vaccine Quad .5 mL IM 6+ MO 2020-01-26 00:00:00 Completed [facility] Influenza Virus Vaccine Quad .5 mL IM 6+ MO 2020-01-26 00:00:00 Completed [facility] Influenza Virus Vaccine Quad .5 mL IM 6+ MO 2020-01-26 00:00:00 Completed [facility] Influenza Virus Vaccine Quad .5 mL IM 6+ MO 2020-01-26 00:00:00 Completed [facility] Influenza Virus Vaccine Quad .5 mL IM 6+ MO 2020-01-26 00:00:00 Completed [facility] Influenza Virus Vaccine Quad .5 mL IM 6+ MO 2020-01-26 00:00:00 Completed [facility] Influenza Virus Vaccine Quad .5 mL IM 6+ MO 2020-01-26 00:00:00 Completed [facility] Influenza Virus Vaccine Quad .5 mL IM 6+ MO 2020-01-26 00:00:00 Completed [facility] Influenza Virus Vaccine Quad .5 mL IM 6+ MO 2020-01-26 00:00:00 Completed [facility] Influenza Virus Vaccine Quad .5 mL IM 6+ MO 2020-01-26 00:00:00 Completed [facility] Influenza Virus Vaccine Quad .5 mL IM 6+ MO 2020-01-26 00:00:00 Completed [facility] Influenza Virus Vaccine Quad .5 mL IM 6+ MO 2020-01-26 00:00:00 Completed [facility] Influenza Virus Vaccine Quad .5 mL IM 6+ MO 2020-01-26 00:00:00 Completed [facility] Influenza Virus Vaccine Quad .5 mL IM 6+ MO 2020-01-26 00:00:00 Completed [facility] Influenza Virus Vaccine Quad .5 mL IM 6+ MO 2020-01-26 00:00:00 Completed [facility] Influenza Virus Vaccine Quad .5 mL IM 6+ MO 2020-01-26 00:00:00 Completed [facility] Influenza Virus Vaccine Quad .5 mL IM 6+ MO 2020-01-26 00:00:00 Completed [facility] Influenza Virus Vaccine Quad .5 mL IM 6+ MO 2020-01-26 00:00:00 Completed [facility] Influenza Virus Vaccine Quad .5 mL IM 6+ MO 2020-01-26 00:00:00 Completed [facility] Influenza Virus Vaccine Quad .5 mL IM 6+ MO 2020-01-26 00:00:00 Completed [facility] Influenza Virus Vaccine Quad .5 mL IM 6+ MO 2020-01-26 00:00:00 Completed [facility] Influenza Virus Vaccine Quad .5 mL IM 6+ MO 2020-01-26 00:00:00 Completed [facility] Influenza Virus Vaccine Quad .5 mL IM 6+ MO 2020-01-26 00:00:00 Completed [facility] Influenza Virus Vaccine Quad .5 mL IM 6+ MO 2020-01-26 00:00:00 Completed [facility] Influenza Virus Vaccine Quad .5 mL IM 6+ MO 2020-01-26 00:00:00 Completed [facility] Influenza Virus Vaccine Quad .5 mL IM 6+ MO 2020-01-26 00:00:00 Completed [facility] Influenza Virus Vaccine Quad .5 mL IM 6+ MO 2020-01-26 00:00:00 Completed [facility] Influenza Virus Vaccine Quad .5 mL IM 6+ MO 2020-01-26 00:00:00 Completed [facility] Influenza Virus Vaccine Quad .5 mL IM 6+ MO 2020-01-26 00:00:00 Completed [facility] Influenza Virus Vaccine Quad .5 mL IM 6+ MO 2020-01-26 00:00:00 Completed [facility] Influenza Virus Vaccine Quad .5 mL IM 6+ MO 2020-01-26 00:00:00 Completed [facility] Influenza Virus Vaccine Quad .5 mL IM 6+ MO 2020-01-26 00:00:00 Completed [facility] Influenza Virus Vaccine Quad .5 mL IM 6+ MO 2020-01-26 00:00:00 Completed [facility] Influenza Virus Vaccine Quad .5 mL IM 6+ MO 2020-01-26 00:00:00 Completed [facility] Influenza Virus Vaccine Quad .5 mL IM 6+ MO 2020-01-26 00:00:00 Completed [facility] Influenza Virus Vaccine Quad .5 mL IM 6+ MO 2020-01-26 00:00:00 Completed [facility] Influenza Virus Vaccine Quad .5 mL IM 6+ MO 2020-01-26 00:00:00 Completed [facility] Influenza Virus Vaccine Quad .5 mL IM 6+ MO 2020-01-26 00:00:00 Completed [facility] Influenza Virus Vaccine Quad .5 mL IM 6+ MO 2020-01-26 00:00:00 Completed [facility] Influenza Virus Vaccine Quad .5 mL IM 6+ MO 2020-01-26 00:00:00 Completed [facility] Influenza Virus Vaccine Quad .5 mL IM 6+ MO 2020-01-26 00:00:00 Completed [facility] Influenza Virus Vaccine Quad .5 mL IM 6+ MO 2020-01-26 00:00:00 Completed [facility] Influenza Virus Vaccine Quad .5 mL IM 6+ MO 2020-01-26 00:00:00 Completed [facility] Influenza Virus Vaccine Quad .5 mL IM 6+ MO 2020-01-26 00:00:00 Completed [facility] Influenza Virus Vaccine Quad .5 mL IM 6+ MO 2020-01-26 00:00:00 Completed [facility] Influenza Virus Vaccine Quad .5 mL IM 6+ MO 2020-01-26 00:00:00 Completed [facility] Influenza Virus Vaccine Quad .5 mL IM 6+ MO 2020-01-26 00:00:00 Completed [facility] Influenza Virus Vaccine Quad .5 mL IM 6+ MO 2020-01-26 00:00:00 Completed [facility] Influenza Virus Vaccine Quad .5 mL IM 6+ MO 2020-01-26 00:00:00 Completed [facility] Influenza Virus Vaccine Quad .5 mL IM 6+ MO 2020-01-26 00:00:00 Completed [facility] Influenza Virus Vaccine Quad .5 mL IM 6+ MO 2020-01-26 00:00:00 Completed [facility] Influenza Virus Vaccine Quad .5 mL IM 6+ MO 2020-01-26 00:00:00 Completed [facility] Influenza Virus Vaccine Quad .5 mL IM 6+ MO 2020-01-26 00:00:00 Completed [facility] Influenza Virus Vaccine Quad .5 mL IM 6+ MO 2020-01-26 00:00:00 Completed [facility] Influenza Virus Vaccine Quad .5 mL IM 6+ MO 2020-01-26 00:00:00 Completed [facility] Influenza Virus Vaccine Quad .5 mL IM 6+ MO (FLUZONE/FLULAVAL/FLU ARIX) 2020-01-26 00:00:00 Completed [facility] DTAP 2019-12-07 00:00:00 Completed [facility] HIB 4 Dose Schedule 2019-12-07 00:00:00 Completed [facility] MMR 2019-12-07 00:00:00 Completed [facility] Polio (IPV/OPV) 2019-12-07 00:00:00 Completed [facility] Varicella (varivax)(chicken pox) 2019-12-07 00:00:00 Completed [facility] Hep B, Adol or Pedi Dosage 2019-12-07 00:00:00 Completed [facility] Meningococcal Polysaccharide (groups A, C, Y and W-135) conjugate vaccine (MCV4P) 2019-12-07 00:00:00 Completed [facility] TDAP 2019-12-07 00:00:00 Completed [facility] Influenza Virus Vaccine Quad .5 mL IM 6+ MO (FLUZONE/FLULAVAL/FLU ARIX) 2019-12-07 00:00:00 Completed [facility] DTAP 2019-11-16 00:00:00 Completed [facility] HIB 4 Dose Schedule 2019-11-16 00:00:00 Completed [facility] MMR 2019-11-16 00:00:00 Completed [facility] Polio (IPV/OPV) 2019-11-16 00:00:00 Completed [facility] Varicella (varivax)(chicken pox) 2019-11-16 00:00:00 Completed [facility] Hep B, Adol or Pedi Dosage 2019-11-16 00:00:00 Completed [facility] Meningococcal Polysaccharide (groups A, C, Y and W-135) conjugate vaccine (MCV4P) 2019-11-16 00:00:00 Completed [facility] TDAP 2019-11-16 00:00:00 Completed [facility] Influenza Virus Vaccine Quad .5 mL IM 6+ MO (FLUZONE/FLULAVAL/FLU ARIX) 2019-11-16 00:00:00 Completed [facility] TDAP (ADACEL) VACCINE 2019-05-20 00:00:00 Completed [facility] TDAP (ADACEL) VACCINE 2019-05-20 00:00:00 Completed [facility] TDAP (ADACEL) VACCINE 2019-05-20 00:00:00 Completed [facility] TDAP (ADACEL) VACCINE 2019-05-20 00:00:00 Completed [facility] TDAP (ADACEL) VACCINE 2019-05-20 00:00:00 Completed [facility] TDAP (ADACEL) VACCINE 2019-05-20 00:00:00 Completed [facility] TDAP (ADACEL) VACCINE 2019-05-20 00:00:00 Completed [facility] TDAP (ADACEL) VACCINE 2019-05-20 00:00:00 Completed [facility] TDAP (ADACEL) VACCINE 2019-05-20 00:00:00 Completed [facility] TDAP (ADACEL) VACCINE 2019-05-20 00:00:00 Completed [facility] TDAP (ADACEL) VACCINE 2019-05-20 00:00:00 Completed [facility] TDAP (ADACEL) VACCINE 2019-05-20 00:00:00 Completed [facility] TDAP (ADACEL) VACCINE 2019-05-20 00:00:00 Completed [facility] TDAP (ADACEL) VACCINE 2019-05-20 00:00:00 Completed [facility] TDAP (ADACEL) VACCINE 2019-05-20 00:00:00 Completed [facility] TDAP (ADACEL) VACCINE 2019-05-20 00:00:00 Completed [facility] TDAP (ADACEL) VACCINE 2019-05-20 00:00:00 Completed [facility] TDAP (ADACEL) VACCINE 2019-05-20 00:00:00 Completed [facility] TDAP (ADACEL) VACCINE 2019-05-20 00:00:00 Completed [facility] TDAP (ADACEL) VACCINE 2019-05-20 00:00:00 Completed [facility] TDAP (ADACEL) VACCINE 2019-05-20 00:00:00 Completed [facility] TDAP (ADACEL) VACCINE 2019-05-20 00:00:00 Completed [facility] TDAP (ADACEL) VACCINE 2019-05-20 00:00:00 Completed [facility] TDAP (ADACEL) VACCINE 2019-05-20 00:00:00 Completed [facility] TDAP (ADACEL) VACCINE 2019-05-20 00:00:00 Completed [facility] TDAP (ADACEL) VACCINE 2019-05-20 00:00:00 Completed [facility] TDAP (ADACEL) VACCINE 2019-05-20 00:00:00 Completed [facility] TDAP (ADACEL) VACCINE 2019-05-20 00:00:00 Completed [facility] TDAP (ADACEL) VACCINE 2019-05-20 00:00:00 Completed [facility] TDAP (ADACEL) VACCINE 2019-05-20 00:00:00 Completed [facility] TDAP (ADACEL) VACCINE 2019-05-20 00:00:00 Completed [facility] TDAP (ADACEL) VACCINE 2019-05-20 00:00:00 Completed [facility] TDAP (ADACEL) VACCINE 2019-05-20 00:00:00 Completed [facility] TDAP (ADACEL) VACCINE 2019-05-20 00:00:00 Completed [facility] TDAP (ADACEL) VACCINE 2019-05-20 00:00:00 Completed [facility] TDAP (ADACEL) VACCINE 2019-05-20 00:00:00 Completed [facility] TDAP (ADACEL) VACCINE 2019-05-20 00:00:00 Completed [facility] TDAP (ADACEL) VACCINE 2019-05-20 00:00:00 Completed [facility] TDAP (ADACEL) VACCINE 2019-05-20 00:00:00 Completed [facility] TDAP (ADACEL) VACCINE 2019-05-20 00:00:00 Completed [facility] TDAP (ADACEL) VACCINE 2019-05-20 00:00:00 Completed [facility] TDAP (ADACEL) VACCINE 2019-05-20 00:00:00 Completed [facility] TDAP (ADACEL) VACCINE 2019-05-20 00:00:00 Completed [facility] TDAP (ADACEL) VACCINE 2019-05-20 00:00:00 Completed [facility] TDAP (ADACEL) VACCINE 2019-05-20 00:00:00 Completed [facility] TDAP (ADACEL) VACCINE 2019-05-20 00:00:00 Completed [facility] TDAP (ADACEL) VACCINE 2019-05-20 00:00:00 Completed [facility] TDAP (ADACEL) VACCINE 2019-05-20 00:00:00 Completed [facility] TDAP (ADACEL) VACCINE 2019-05-20 00:00:00 Completed [facility] TDAP (ADACEL) VACCINE 2019-05-20 00:00:00 Completed [facility] TDAP (ADACEL) VACCINE 2019-05-20 00:00:00 Completed [facility] TDAP (ADACEL) VACCINE 2019-05-20 00:00:00 Completed [facility] TDAP (ADACEL) VACCINE 2019-05-20 00:00:00 Completed [facility] TDAP (ADACEL) VACCINE 2019-05-20 00:00:00 Completed [facility] TDAP (ADACEL) VACCINE 2019-05-20 00:00:00 Completed [facility] TDAP (ADACEL) VACCINE 2019-05-20 00:00:00 Completed [facility] TDAP (ADACEL) VACCINE 2019-05-20 00:00:00 Completed [facility] TDAP (ADACEL) VACCINE 2019-05-20 00:00:00 Completed [facility] TDAP (ADACEL) VACCINE 2019-05-20 00:00:00 Completed [facility] TDAP (ADACEL) VACCINE 2019-05-20 00:00:00 Completed [facility] TDAP (ADACEL) VACCINE 2019-05-20 00:00:00 Completed [facility] TDAP (ADACEL) VACCINE 2019-05-20 00:00:00 Completed [facility] TDAP (ADACEL) VACCINE 2019-05-20 00:00:00 Completed [facility] TDAP (ADACEL) VACCINE 2019-05-20 00:00:00 Completed [facility] TDAP (ADACEL) VACCINE 2019-05-20 00:00:00 Completed [facility] TDAP (ADACEL) VACCINE 2019-05-20 00:00:00 Completed [facility] TDAP (ADACEL) VACCINE 2019-05-20 00:00:00 Completed [facility] TDAP (ADACEL) VACCINE 2019-05-20 00:00:00 Completed [facility] TDAP (ADACEL) VACCINE 2019-05-20 00:00:00 Completed [facility] TDAP (ADACEL) VACCINE 2019-05-20 00:00:00 Completed [facility] TDAP (ADACEL) VACCINE 2019-05-20 00:00:00 Completed [facility] TDAP (ADACEL) VACCINE 2019-05-20 00:00:00 Completed [facility] TDAP (ADACEL) VACCINE 2019-05-20 00:00:00 Completed [facility] TDAP (ADACEL) VACCINE 2019-05-20 00:00:00 Completed [facility] TDAP (ADACEL) VACCINE 2019-05-20 00:00:00 Completed [facility] TDAP (ADACEL) VACCINE 2019-05-20 00:00:00 Completed [facility] TDAP (ADACEL) VACCINE 2019-05-20 00:00:00 Completed [facility] TDAP (ADACEL) VACCINE 2019-05-20 00:00:00 Completed [facility] TDAP (ADACEL) VACCINE 2019-05-20 00:00:00 Completed [facility] TDAP (ADACEL) VACCINE 2019-05-20 00:00:00 Completed [facility] TDAP (ADACEL) VACCINE 2019-05-20 00:00:00 Completed [facility] TDAP (ADACEL) VACCINE 2019-05-20 00:00:00 Completed [facility] TDAP (ADACEL) VACCINE 2019-05-20 00:00:00 Completed [facility] Influenza Virus Vaccine Quad .5 mL IM 6+ MO 2019-01-07 00:00:00 Completed [facility] Influenza Virus Vaccine Quad .5 mL IM 6+ MO 2019-01-07 00:00:00 Completed [facility] Influenza Virus Vaccine Quad .5 mL IM 6+ MO 2019-01-07 00:00:00 Completed [facility] Influenza Virus Vaccine Quad .5 mL IM 6+ MO 2019-01-07 00:00:00 Completed [facility] Influenza Virus Vaccine Quad .5 mL IM 6+ MO 2019-01-07 00:00:00 Completed [facility] Influenza Virus Vaccine Quad .5 mL IM 6+ MO 2019-01-07 00:00:00 Completed [facility] Influenza Virus Vaccine Quad .5 mL IM 6+ MO 2019-01-07 00:00:00 Completed [facility] Influenza Virus Vaccine Quad .5 mL IM 6+ MO 2019-01-07 00:00:00 Completed [facility] Influenza Virus Vaccine Quad .5 mL IM 6+ MO 2019-01-07 00:00:00 Completed [facility] Influenza Virus Vaccine Quad .5 mL IM 6+ MO 2019-01-07 00:00:00 Completed [facility] Influenza Virus Vaccine Quad .5 mL IM 6+ MO 2019-01-07 00:00:00 Completed [facility] Influenza Virus Vaccine Quad .5 mL IM 6+ MO 2019-01-07 00:00:00 Completed [facility] Influenza Virus Vaccine Quad .5 mL IM 6+ MO 2019-01-07 00:00:00 Completed [facility] Influenza Virus Vaccine Quad .5 mL IM 6+ MO 2019-01-07 00:00:00 Completed [facility] Influenza Virus Vaccine Quad .5 mL IM 6+ MO 2019-01-07 00:00:00 Completed [facility] Influenza Virus Vaccine Quad .5 mL IM 6+ MO 2019-01-07 00:00:00 Completed [facility] Influenza Virus Vaccine Quad .5 mL IM 6+ MO 2019-01-07 00:00:00 Completed [facility] Influenza Virus Vaccine Quad .5 mL IM 6+ MO 2019-01-07 00:00:00 Completed [facility] Influenza Virus Vaccine Quad .5 mL IM 6+ MO 2019-01-07 00:00:00 Completed [facility] Influenza Virus Vaccine Quad .5 mL IM 6+ MO 2019-01-07 00:00:00 Completed [facility] Influenza Virus Vaccine Quad .5 mL IM 6+ MO 2019-01-07 00:00:00 Completed [facility] Influenza Virus Vaccine Quad .5 mL IM 6+ MO 2019-01-07 00:00:00 Completed [facility] Influenza Virus Vaccine Quad .5 mL IM 6+ MO 2019-01-07 00:00:00 Completed [facility] Influenza Virus Vaccine Quad .5 mL IM 6+ MO 2019-01-07 00:00:00 Completed [facility] Influenza Virus Vaccine Quad .5 mL IM 6+ MO 2019-01-07 00:00:00 Completed [facility] Influenza Virus Vaccine Quad .5 mL IM 6+ MO 2019-01-07 00:00:00 Completed [facility] Influenza Virus Vaccine Quad .5 mL IM 6+ MO 2019-01-07 00:00:00 Completed [facility] Influenza Virus Vaccine Quad .5 mL IM 6+ MO 2019-01-07 00:00:00 Completed [facility] Influenza Virus Vaccine Quad .5 mL IM 6+ MO 2019-01-07 00:00:00 Completed [facility] Influenza Virus Vaccine Quad .5 mL IM 6+ MO 2019-01-07 00:00:00 Completed [facility] Influenza Virus Vaccine Quad .5 mL IM 6+ MO 2019-01-07 00:00:00 Completed [facility] Influenza Virus Vaccine Quad .5 mL IM 6+ MO 2019-01-07 00:00:00 Completed [facility] Influenza Virus Vaccine Quad .5 mL IM 6+ MO 2019-01-07 00:00:00 Completed [facility] Influenza Virus Vaccine Quad .5 mL IM 6+ MO 2019-01-07 00:00:00 Completed [facility] Influenza Virus Vaccine Quad .5 mL IM 6+ MO 2019-01-07 00:00:00 Completed [facility] Influenza Virus Vaccine Quad .5 mL IM 6+ MO 2019-01-07 00:00:00 Completed [facility] Influenza Virus Vaccine Quad .5 mL IM 6+ MO 2019-01-07 00:00:00 Completed [facility] Influenza Virus Vaccine Quad .5 mL IM 6+ MO 2019-01-07 00:00:00 Completed [facility] Influenza Virus Vaccine Quad .5 mL IM 6+ MO 2019-01-07 00:00:00 Completed [facility] Influenza Virus Vaccine Quad .5 mL IM 6+ MO 2019-01-07 00:00:00 Completed [facility] Influenza Virus Vaccine Quad .5 mL IM 6+ MO 2019-01-07 00:00:00 Completed [facility] Influenza Virus Vaccine Quad .5 mL IM 6+ MO 2019-01-07 00:00:00 Completed [facility] Influenza Virus Vaccine Quad .5 mL IM 6+ MO 2019-01-07 00:00:00 Completed [facility] Influenza Virus Vaccine Quad .5 mL IM 6+ MO 2019-01-07 00:00:00 Completed [facility] Influenza Virus Vaccine Quad .5 mL IM 6+ MO 2019-01-07 00:00:00 Completed [facility] Influenza Virus Vaccine Quad .5 mL IM 6+ MO 2019-01-07 00:00:00 Completed [facility] Influenza Virus Vaccine Quad .5 mL IM 6+ MO 2019-01-07 00:00:00 Completed [facility] Influenza Virus Vaccine Quad .5 mL IM 6+ MO 2019-01-07 00:00:00 Completed [facility] Influenza Virus Vaccine Quad .5 mL IM 6+ MO 2019-01-07 00:00:00 Completed [facility] Influenza Virus Vaccine Quad .5 mL IM 6+ MO 2019-01-07 00:00:00 Completed [facility] Influenza Virus Vaccine Quad .5 mL IM 6+ MO 2019-01-07 00:00:00 Completed [facility] Influenza Virus Vaccine Quad .5 mL IM 6+ MO 2019-01-07 00:00:00 Completed [facility] Influenza Virus Vaccine Quad .5 mL IM 6+ MO 2019-01-07 00:00:00 Completed [facility] Influenza Virus Vaccine Quad .5 mL IM 6+ MO 2019-01-07 00:00:00 Completed [facility] Influenza Virus Vaccine Quad .5 mL IM 6+ MO 2019-01-07 00:00:00 Completed [facility] Influenza Virus Vaccine Quad .5 mL IM 6+ MO 2019-01-07 00:00:00 Completed [facility] Influenza Virus Vaccine Quad .5 mL IM 6+ MO 2019-01-07 00:00:00 Completed [facility] Influenza Virus Vaccine Quad .5 mL IM 6+ MO 2019-01-07 00:00:00 Completed [facility] Influenza Virus Vaccine Quad .5 mL IM 6+ MO 2019-01-07 00:00:00 Completed [facility] Influenza Virus Vaccine Quad .5 mL IM 6+ MO 2019-01-07 00:00:00 Completed [facility] Influenza Virus Vaccine Quad .5 mL IM 6+ MO 2019-01-07 00:00:00 Completed [facility] Influenza Virus Vaccine Quad .5 mL IM 6+ MO 2019-01-07 00:00:00 Completed [facility] Influenza Virus Vaccine Quad .5 mL IM 6+ MO 2019-01-07 00:00:00 Completed [facility] Influenza Virus Vaccine Quad .5 mL IM 6+ MO 2019-01-07 00:00:00 Completed [facility] Influenza Virus Vaccine Quad .5 mL IM 6+ MO 2019-01-07 00:00:00 Completed [facility] Influenza Virus Vaccine Quad .5 mL IM 6+ MO 2019-01-07 00:00:00 Completed [facility] Influenza Virus Vaccine Quad .5 mL IM 6+ MO 2019-01-07 00:00:00 Completed [facility] Influenza Virus Vaccine Quad .5 mL IM 6+ MO 2019-01-07 00:00:00 Completed [facility] Influenza Virus Vaccine Quad .5 mL IM 6+ MO 2019-01-07 00:00:00 Completed [facility] Influenza Virus Vaccine Quad .5 mL IM 6+ MO 2019-01-07 00:00:00 Completed [facility] Influenza Virus Vaccine Quad .5 mL IM 6+ MO 2019-01-07 00:00:00 Completed [facility] Influenza Virus Vaccine Quad .5 mL IM 6+ MO 2019-01-07 00:00:00 Completed [facility] Influenza Virus Vaccine Quad .5 mL IM 6+ MO 2019-01-07 00:00:00 Completed [facility] Influenza Virus Vaccine Quad .5 mL IM 6+ MO 2019-01-07 00:00:00 Completed [facility] Influenza Virus Vaccine Quad .5 mL IM 6+ MO 2019-01-07 00:00:00 Completed [facility] Influenza Virus Vaccine Quad .5 mL IM 6+ MO 2019-01-07 00:00:00 Completed [facility] Influenza Virus Vaccine Quad .5 mL IM 6+ MO 2019-01-07 00:00:00 Completed [facility] Influenza Virus Vaccine Quad .5 mL IM 6+ MO 2019-01-07 00:00:00 Completed [facility] Influenza Virus Vaccine Quad .5 mL IM 6+ MO 2019-01-07 00:00:00 Completed [facility] Influenza Virus Vaccine Quad .5 mL IM 6+ MO 2019-01-07 00:00:00 Completed [facility] Influenza Virus Vaccine Quad .5 mL IM 6+ MO 2019-01-07 00:00:00 Completed [facility] Influenza Virus Vaccine Quad .5 mL IM 6+ MO (FLUZONE/FLULAVAL/FLU ARIX) 2019-01-07 00:00:00 Completed [facility] Hep B, Adol or Pedi Dosage 2010-09-14 00:00:00 Completed [facility] Meningococcal Polysaccharide (groups A, C, Y and W-135) conjugate vaccine (MCV4P) 2010-09-14 00:00:00 Completed [facility] TDAP 2010-09-14 00:00:00 Completed [facility] Varicella (varivax)(chicken pox) 2010-09-14 00:00:00 Completed [facility] Hep B, Adol or Pedi Dosage 2010-09-14 00:00:00 Completed [facility] Meningococcal Polysaccharide (groups A, C, Y and W-135) conjugate vaccine (MCV4P) 2010-09-14 00:00:00 Completed [facility] TDAP 2010-09-14 00:00:00 Completed [facility] Varicella (varivax)(chicken pox) 2010-09-14 00:00:00 Completed [facility] Hep B, Adol or Pedi Dosage 2010-09-14 00:00:00 Completed [facility] Meningococcal Polysaccharide (groups A, C, Y and W-135) conjugate vaccine (MCV4P) 2010-09-14 00:00:00 Completed [facility] TDAP 2010-09-14 00:00:00 Completed [facility] Varicella (varivax)(chicken pox) 2010-09-14 00:00:00 Completed [facility] Hep B, Adol or Pedi Dosage 2010-09-14 00:00:00 Completed [facility] Meningococcal Polysaccharide (groups A, C, Y and W-135) conjugate vaccine (MCV4P) 2010-09-14 00:00:00 Completed [facility] TDAP 2010-09-14 00:00:00 Completed [facility] Varicella (varivax)(chicken pox) 2010-09-14 00:00:00 Completed [facility] Hep B, Adol or Pedi Dosage 2010-09-14 00:00:00 Completed [facility] Meningococcal Polysaccharide (groups A, C, Y and W-135) conjugate vaccine (MCV4P) 2010-09-14 00:00:00 Completed [facility] TDAP 2010-09-14 00:00:00 Completed [facility] Varicella (varivax)(chicken pox) 2010-09-14 00:00:00 Completed [facility] Hep B, Adol or Pedi Dosage 2010-09-14 00:00:00 Completed [facility] Meningococcal Polysaccharide (groups A, C, Y and W-135) conjugate vaccine (MCV4P) 2010-09-14 00:00:00 Completed [facility] TDAP 2010-09-14 00:00:00 Completed [facility] Varicella (varivax)(chicken pox) 2010-09-14 00:00:00 Completed [facility] Hep B, Adol or Pedi Dosage 2010-09-14 00:00:00 Completed [facility] Meningococcal Polysaccharide (groups A, C, Y and W-135) conjugate vaccine (MCV4P) 2010-09-14 00:00:00 Completed [facility] TDAP 2010-09-14 00:00:00 Completed [facility] Varicella (varivax)(chicken pox) 2010-09-14 00:00:00 Completed [facility] Hep B, Adol or Pedi Dosage 2010-09-14 00:00:00 Completed [facility] Meningococcal Polysaccharide (groups A, C, Y and W-135) conjugate vaccine (MCV4P) 2010-09-14 00:00:00 Completed [facility] TDAP 2010-09-14 00:00:00 Completed [facility] Varicella (varivax)(chicken pox) 2010-09-14 00:00:00 Completed [facility] Hep B, Adol or Pedi Dosage 2010-09-14 00:00:00 Completed [facility] Meningococcal Polysaccharide (groups A, C, Y and W-135) conjugate vaccine (MCV4P) 2010-09-14 00:00:00 Completed [facility] TDAP 2010-09-14 00:00:00 Completed [facility] Varicella (varivax)(chicken pox) 2010-09-14 00:00:00 Completed [facility] Hep B, Adol or Pedi Dosage 2010-09-14 00:00:00 Completed [facility] Meningococcal Polysaccharide (groups A, C, Y and W-135) conjugate vaccine (MCV4P) 2010-09-14 00:00:00 Completed [facility] TDAP 2010-09-14 00:00:00 Completed [facility] Varicella (varivax)(chicken pox) 2010-09-14 00:00:00 Completed [facility] Hep B, Adol or Pedi Dosage 2010-09-14 00:00:00 Completed [facility] Meningococcal Polysaccharide (groups A, C, Y and W-135) conjugate vaccine (MCV4P) 2010-09-14 00:00:00 Completed [facility] TDAP 2010-09-14 00:00:00 Completed [facility] Varicella (varivax)(chicken pox) 2010-09-14 00:00:00 Completed [facility] Hep B, Adol or Pedi Dosage 2010-09-14 00:00:00 Completed [facility] Meningococcal Polysaccharide (groups A, C, Y and W-135) conjugate vaccine (MCV4P) 2010-09-14 00:00:00 Completed [facility] TDAP 2010-09-14 00:00:00 Completed [facility] Varicella (varivax)(chicken pox) 2010-09-14 00:00:00 Completed [facility] Hep B, Adol or Pedi Dosage 2010-09-14 00:00:00 Completed [facility] Meningococcal Polysaccharide (groups A, C, Y and W-135) conjugate vaccine (MCV4P) 2010-09-14 00:00:00 Completed [facility] TDAP 2010-09-14 00:00:00 Completed [facility] Varicella (varivax)(chicken pox) 2010-09-14 00:00:00 Completed [facility] Hep B, Adol or Pedi Dosage 2010-09-14 00:00:00 Completed [facility] Meningococcal Polysaccharide (groups A, C, Y and W-135) conjugate vaccine (MCV4P) 2010-09-14 00:00:00 Completed [facility] TDAP 2010-09-14 00:00:00 Completed [facility] Varicella (varivax)(chicken pox) 2010-09-14 00:00:00 Completed [facility] Hep B, Adol or Pedi Dosage 2010-09-14 00:00:00 Completed [facility] Meningococcal Polysaccharide (groups A, C, Y and W-135) conjugate vaccine (MCV4P) 2010-09-14 00:00:00 Completed [facility] TDAP 2010-09-14 00:00:00 Completed [facility] Varicella (varivax)(chicken pox) 2010-09-14 00:00:00 Completed [facility] Hep B, Adol or Pedi Dosage 2010-09-14 00:00:00 Completed [facility] Meningococcal Polysaccharide (groups A, C, Y and W-135) conjugate vaccine (MCV4P) 2010-09-14 00:00:00 Completed [facility] TDAP 2010-09-14 00:00:00 Completed [facility] Varicella (varivax)(chicken pox) 2010-09-14 00:00:00 Completed [facility] Hep B, Adol or Pedi Dosage 2010-09-14 00:00:00 Completed [facility] Meningococcal Polysaccharide (groups A, C, Y and W-135) conjugate vaccine (MCV4P) 2010-09-14 00:00:00 Completed [facility] TDAP 2010-09-14 00:00:00 Completed [facility] Varicella (varivax)(chicken pox) 2010-09-14 00:00:00 Completed [facility] Hep B, Adol or Pedi Dosage 2010-09-14 00:00:00 Completed [facility] Meningococcal Polysaccharide (groups A, C, Y and W-135) conjugate vaccine (MCV4P) 2010-09-14 00:00:00 Completed [facility] TDAP 2010-09-14 00:00:00 Completed [facility] Varicella (varivax)(chicken pox) 2010-09-14 00:00:00 Completed [facility] Hep B, Adol or Pedi Dosage 2010-09-14 00:00:00 Completed [facility] Meningococcal Polysaccharide (groups A, C, Y and W-135) conjugate vaccine (MCV4P) 2010-09-14 00:00:00 Completed [facility] TDAP 2010-09-14 00:00:00 Completed [facility] Varicella (varivax)(chicken pox) 2010-09-14 00:00:00 Completed [facility] Hep B, Adol or Pedi Dosage 2010-09-14 00:00:00 Completed [facility] Meningococcal Polysaccharide (groups A, C, Y and W-135) conjugate vaccine (MCV4P) 2010-09-14 00:00:00 Completed [facility] TDAP 2010-09-14 00:00:00 Completed [facility] Varicella (varivax)(chicken pox) 2010-09-14 00:00:00 Completed [facility] Hep B, Adol or Pedi Dosage 2010-09-14 00:00:00 Completed [facility] Meningococcal Polysaccharide (groups A, C, Y and W-135) conjugate vaccine (MCV4P) 2010-09-14 00:00:00 Completed [facility] TDAP 2010-09-14 00:00:00 Completed [facility] Varicella (varivax)(chicken pox) 2010-09-14 00:00:00 Completed [facility] Hep B, Adol or Pedi Dosage 2010-09-14 00:00:00 Completed [facility] Meningococcal Polysaccharide (groups A, C, Y and W-135) conjugate vaccine (MCV4P) 2010-09-14 00:00:00 Completed [facility] TDAP 2010-09-14 00:00:00 Completed [facility] Varicella (varivax)(chicken pox) 2010-09-14 00:00:00 Completed [facility] Hep B, Adol or Pedi Dosage 2010-09-14 00:00:00 Completed [facility] Meningococcal Polysaccharide (groups A, C, Y and W-135) conjugate vaccine (MCV4P) 2010-09-14 00:00:00 Completed [facility] TDAP 2010-09-14 00:00:00 Completed [facility] Varicella (varivax)(chicken pox) 2010-09-14 00:00:00 Completed [facility] Hep B, Adol or Pedi Dosage 2010-09-14 00:00:00 Completed [facility] Meningococcal Polysaccharide (groups A, C, Y and W-135) conjugate vaccine (MCV4P) 2010-09-14 00:00:00 Completed [facility] TDAP 2010-09-14 00:00:00 Completed [facility] Varicella (varivax)(chicken pox) 2010-09-14 00:00:00 Completed [facility] Hep B, Adol or Pedi Dosage 2010-09-14 00:00:00 Completed [facility] Meningococcal Polysaccharide (groups A, C, Y and W-135) conjugate vaccine (MCV4P) 2010-09-14 00:00:00 Completed [facility] TDAP 2010-09-14 00:00:00 Completed [facility] Varicella (varivax)(chicken pox) 2010-09-14 00:00:00 Completed [facility] Hep B, Adol or Pedi Dosage 2010-09-14 00:00:00 Completed [facility] Meningococcal Polysaccharide (groups A, C, Y and W-135) conjugate vaccine (MCV4P) 2010-09-14 00:00:00 Completed [facility] TDAP 2010-09-14 00:00:00 Completed [facility] Varicella (varivax)(chicken pox) 2010-09-14 00:00:00 Completed [facility] Hep B, Adol or Pedi Dosage 2010-09-14 00:00:00 Completed [facility] Meningococcal Polysaccharide (groups A, C, Y and W-135) conjugate vaccine (MCV4P) 2010-09-14 00:00:00 Completed [facility] TDAP 2010-09-14 00:00:00 Completed [facility] Varicella (varivax)(chicken pox) 2010-09-14 00:00:00 Completed [facility] Hep B, Adol or Pedi Dosage 2010-09-14 00:00:00 Completed [facility] Meningococcal Polysaccharide (groups A, C, Y and W-135) conjugate vaccine (MCV4P) 2010-09-14 00:00:00 Completed [facility] TDAP 2010-09-14 00:00:00 Completed [facility] Varicella (varivax)(chicken pox) 2010-09-14 00:00:00 Completed [facility] Hep B, Adol or Pedi Dosage 2010-09-14 00:00:00 Completed [facility] Meningococcal Polysaccharide (groups A, C, Y and W-135) conjugate vaccine (MCV4P) 2010-09-14 00:00:00 Completed [facility] TDAP 2010-09-14 00:00:00 Completed [facility] Varicella (varivax)(chicken pox) 2010-09-14 00:00:00 Completed [facility] Hep B, Adol or Pedi Dosage 2010-09-14 00:00:00 Completed [facility] Meningococcal Polysaccharide (groups A, C, Y and W-135) conjugate vaccine (MCV4P) 2010-09-14 00:00:00 Completed [facility] TDAP 2010-09-14 00:00:00 Completed [facility] Varicella (varivax)(chicken pox) 2010-09-14 00:00:00 Completed [facility] Hep B, Adol or Pedi Dosage 2010-09-14 00:00:00 Completed [facility] Meningococcal Polysaccharide (groups A, C, Y and W-135) conjugate vaccine (MCV4P) 2010-09-14 00:00:00 Completed [facility] TDAP 2010-09-14 00:00:00 Completed [facility] Varicella (varivax)(chicken pox) 2010-09-14 00:00:00 Completed [facility] Hep B, Adol or Pedi Dosage 2010-09-14 00:00:00 Completed [facility] Meningococcal Polysaccharide (groups A, C, Y and W-135) conjugate vaccine (MCV4P) 2010-09-14 00:00:00 Completed [facility] TDAP 2010-09-14 00:00:00 Completed [facility] Varicella (varivax)(chicken pox) 2010-09-14 00:00:00 Completed [facility] Hep B, Adol or Pedi Dosage 2010-09-14 00:00:00 Completed [facility] Meningococcal Polysaccharide (groups A, C, Y and W-135) conjugate vaccine (MCV4P) 2010-09-14 00:00:00 Completed [facility] TDAP 2010-09-14 00:00:00 Completed [facility] Varicella (varivax)(chicken pox) 2010-09-14 00:00:00 Completed [facility] Hep B, Adol or Pedi Dosage 2010-09-14 00:00:00 Completed [facility] Meningococcal Polysaccharide (groups A, C, Y and W-135) conjugate vaccine (MCV4P) 2010-09-14 00:00:00 Completed [facility] TDAP 2010-09-14 00:00:00 [facility]pleted [facility] [facility])(ch[facility] pox) 2010-09-14 00:00:00 Completed [facility] Hep B, Adol or Pedi Dosage 2010-09-14 00:00:00 Completed [facility] Meningococcal Polysaccharide (groups A, C, Y and W-135) conjugate vaccine (MCV4P) 2010-09-14 00:00:00 Completed [facility] TDAP 2010-09-14 00:00:00 Completed [facility] Varicella (varivax)(chicken pox) 2010-09-14 00:00:00 Completed [facility] Hep B, Adol or Pedi Dosage 2010-09-14 00:00:00 Completed [facility] Meningococcal Polysaccharide (groups A, C, Y and W-135) conjugate vaccine (MCV4P) 2010-09-14 00:00:00 Completed [facility] TDAP 2010-09-14 00:00:00 Completed [facility] Varicella (varivax)(chicken pox) 2010-09-14 00:00:00 Completed [facility] Hep B, Adol or Pedi Dosage 2010-09-14 00:00:00 Completed [facility] Meningococcal Polysaccharide (groups A, C, Y and W-135) conjugate vaccine (MCV4P) 2010-09-14 00:00:00 Completed [facility] TDAP 2010-09-14 00:00:00 Completed [facility] Varicella (varivax)(chicken pox) 2010-09-14 00:00:00 Completed [facility] Hep B, Adol or Pedi Dosage 2010-09-14 00:00:00 Completed [facility] Meningococcal Polysaccharide (groups A, C, Y and W-135) conjugate vaccine (MCV4P) 2010-09-14 00:00:00 Completed [facility] TDAP 2010-09-14 00:00:00 Completed [facility] Varicella (varivax)(chicken pox) 2010-09-14 00:00:00 Completed [facility] Hep B, Adol or Pedi Dosage 2010-09-14 00:00:00 Completed [facility] Meningococcal Polysaccharide (groups A, C, Y and W-135) conjugate vaccine (MCV4P) 2010-09-14 00:00:00 Completed [facility] TDAP 2010-09-14 00:00:00 Completed [facility] Varicella (varivax)(chicken pox) 2010-09-14 00:00:00 Completed [facility] Hep B, Adol or Pedi Dosage 2010-09-14 00:00:00 Completed [facility] Meningococcal Polysaccharide (groups A, C, Y and W-135) conjugate vaccine (MCV4P) 2010-09-14 00:00:00 Completed [facility] TDAP 2010-09-14 00:00:00 Completed [facility] Varicella (varivax)(chicken pox) 2010-09-14 00:00:00 Completed [facility] Hep B, Adol or Pedi Dosage 2010-09-14 00:00:00 Completed [facility] Meningococcal Polysaccharide (groups A, C, Y and W-135) conjugate vaccine (MCV4P) 2010-09-14 00:00:00 Completed [facility] TDAP 2010-09-14 00:00:00 Completed [facility] Varicella (varivax)(chicken pox) 2010-09-14 00:00:00 Completed [facility] Hep B, Adol or Pedi Dosage 2010-09-14 00:00:00 Completed [facility] Meningococcal Polysaccharide (groups A, C, Y and W-135) conjugate vaccine (MCV4P) 2010-09-14 00:00:00 Completed [facility] TDAP 2010-09-14 00:00:00 Completed [facility] Varicella (varivax)(chicken pox) 2010-09-14 00:00:00 Completed [facility] Hep B, Adol or Pedi Dosage 2010-09-14 00:00:00 Completed [facility] Meningococcal Polysaccharide (groups A, C, Y and W-135) conjugate vaccine (MCV4P) 2010-09-14 00:00:00 Completed [facility] TDAP 2010-09-14 00:00:00 Completed [facility] Varicella (varivax)(chicken pox) 2010-09-14 00:00:00 Completed [facility] Hep B, Adol or Pedi Dosage 2010-09-14 00:00:00 Completed [facility] Meningococcal Polysaccharide (groups A, C, Y and W-135) conjugate vaccine (MCV4P) 2010-09-14 00:00:00 Completed [facility] TDAP 2010-09-14 00:00:00 Completed [facility] Varicella (varivax)(chicken pox) 2010-09-14 00:00:00 Completed [facility] Hep B, Adol or Pedi Dosage 2010-09-14 00:00:00 Completed [facility] Meningococcal Polysaccharide (groups A, C, Y and W-135) conjugate vaccine (MCV4P) 2010-09-14 00:00:00 Completed [facility] TDAP 2010-09-14 00:00:00 Completed [facility] Varicella (varivax)(chicken pox) 2010-09-14 00:00:00 Completed [facility] Hep B, Adol or Pedi Dosage 2010-09-14 00:00:00 Completed [facility] Meningococcal Polysaccharide (groups A, C, Y and W-135) conjugate vaccine (MCV4P) 2010-09-14 00:00:00 Completed [facility] TDAP 2010-09-14 00:00:00 Completed [facility] Varicella (varivax)(chicken pox) 2010-09-14 00:00:00 Completed [facility] Hep B, Adol or Pedi Dosage 2010-09-14 00:00:00 Completed [facility] Meningococcal Polysaccharide (groups A, C, Y and W-135) conjugate vaccine (MCV4P) 2010-09-14 00:00:00 Completed [facility] TDAP 2010-09-14 00:00:00 Completed [facility] Varicella (varivax)(chicken pox) 2010-09-14 00:00:00 Completed [facility] Hep B, Adol or Pedi Dosage 2010-09-14 00:00:00 Completed [facility] Meningococcal Polysaccharide (groups A, C, Y and W-135) conjugate vaccine (MCV4P) 2010-09-14 00:00:00 Completed [facility] TDAP 2010-09-14 00:00:00 Completed [facility] Varicella (varivax)(chicken pox) 2010-09-14 00:00:00 Completed [facility] Hep B, Adol or Pedi Dosage 2010-09-14 00:00:00 Completed [facility] Meningococcal Polysaccharide (groups A, C, Y and W-135) conjugate vaccine (MCV4P) 2010-09-14 00:00:00 Completed [facility] TDAP 2010-09-14 00:00:00 Completed [facility] Varicella (varivax)(chicken pox) 2010-09-14 00:00:00 Completed [facility] Hep B, Adol or Pedi Dosage 2010-09-14 00:00:00 Completed [facility] Meningococcal Polysaccharide (groups A, C, Y and W-135) conjugate vaccine (MCV4P) 2010-09-14 00:00:00 Completed [facility] TDAP 2010-09-14 00:00:00 Completed [facility] Varicella (varivax)(chicken pox) 2010-09-14 00:00:00 Completed [facility] Hep B, Adol or Pedi Dosage 2010-09-14 00:00:00 Completed [facility] Meningococcal Polysaccharide (groups A, C, Y and W-135) conjugate vaccine (MCV4P) 2010-09-14 00:00:00 Completed [facility] TDAP 2010-09-14 00:00:00 Completed [facility] Varicella (varivax)(chicken pox) 2010-09-14 00:00:00 Completed [facility] Hep B, Adol or Pedi Dosage 2010-09-14 00:00:00 Completed [facility] Meningococcal Polysaccharide (groups A, C, Y and W-135) conjugate vaccine (MCV4P) 2010-09-14 00:00:00 Completed [facility] TDAP 2010-09-14 00:00:00 Completed [facility] Varicella (varivax)(chicken pox) 2010-09-14 00:00:00 Completed [facility] Hep B, Adol or Pedi Dosage 2010-09-14 00:00:00 Completed [facility] Meningococcal Polysaccharide (groups A, C, Y and W-135) conjugate vaccine (MCV4P) 2010-09-14 00:00:00 Completed [facility] TDAP 2010-09-14 00:00:00 Completed [facility] Varicella (varivax)(chicken pox) 2010-09-14 00:00:00 Completed [facility] Hep B, Adol or Pedi Dosage 2010-09-14 00:00:00 Completed [facility] Meningococcal Polysaccharide (groups A, C, Y and W-135) conjugate vaccine (MCV4P) 2010-09-14 00:00:00 Completed [facility] TDAP 2010-09-14 00:00:00 Completed [facility] Varicella (varivax)(chicken pox) 2010-09-14 00:00:00 Completed [facility] Hep B, Adol or Pedi Dosage 2010-09-14 00:00:00 Completed [facility] Meningococcal Polysaccharide (groups A, C, Y and W-135) conjugate vaccine (MCV4P) 2010-09-14 00:00:00 Completed [facility] TDAP 2010-09-14 00:00:00 Completed [facility] Varicella (varivax)(chicken pox) 2010-09-14 00:00:00 Completed [facility] Hep B, Adol or Pedi Dosage 2010-09-14 00:00:00 Completed [facility] Meningococcal Polysaccharide (groups A, C, Y and W-135) conjugate vaccine (MCV4P) 2010-09-14 00:00:00 Completed [facility] TDAP 2010-09-14 00:00:00 Completed [facility] Varicella (varivax)(chicken pox) 2010-09-14 00:00:00 Completed [facility] Hep B, Adol or Pedi Dosage 2010-09-14 00:00:00 Completed [facility] Meningococcal Polysaccharide (groups A, C, Y and W-135) conjugate vaccine (MCV4P) 2010-09-14 00:00:00 Completed [facility] TDAP 2010-09-14 00:00:00 Completed [facility] Varicella (varivax)(chicken pox) 2010-09-14 00:00:00 Completed [facility] Hep B, Adol or Pedi Dosage 2010-09-14 00:00:00 Completed [facility] Meningococcal Polysaccharide (groups A, C, Y and W-135) conjugate vaccine (MCV4P) 2010-09-14 00:00:00 Completed [facility] TDAP 2010-09-14 00:00:00 Completed [facility] Varicella (varivax)(chicken pox) 2010-09-14 00:00:00 Completed [facility] Hep B, Adol or Pedi Dosage 2010-09-14 00:00:00 Completed [facility] Meningococcal Polysaccharide (groups A, C, Y and W-135) conjugate vaccine (MCV4P) 2010-09-14 00:00:00 Completed [facility] TDAP 2010-09-14 00:00:00 Completed [facility] Varicella (varivax)(chicken pox) 2010-09-14 00:00:00 Completed [facility] Hep B, Adol or Pedi Dosage 2010-09-14 00:00:00 Completed [facility] Meningococcal Polysaccharide (groups A, C, Y and W-135) conjugate vaccine (MCV4P) 2010-09-14 00:00:00 Completed [facility] TDAP 2010-09-14 00:00:00 Completed [facility] Varicella (varivax)(chicken pox) 2010-09-14 00:00:00 Completed [facility] Hep B, Adol or Pedi Dosage 2010-09-14 00:00:00 Completed [facility] Meningococcal Polysaccharide (groups A, C, Y and W-135) conjugate vaccine (MCV4P) 2010-09-14 00:00:00 Completed [facility] TDAP 2010-09-14 00:00:00 Completed [facility] Varicella (varivax)(chicken pox) 2010-09-14 00:00:00 Completed [facility] Hep B, Adol or Pedi Dosage 2010-09-14 00:00:00 Completed [facility] Meningococcal Polysaccharide (groups A, C, Y and W-135) conjugate vaccine (MCV4P) 2010-09-14 00:00:00 Completed [facility] TDAP 2010-09-14 00:00:00 Completed [facility] Varicella (varivax)(chicken pox) 2010-09-14 00:00:00 Completed [facility] Hep B, Adol or Pedi Dosage 2010-09-14 00:00:00 Completed [facility] Meningococcal Polysaccharide (groups A, C, Y and W-135) conjugate vaccine (MCV4P) 2010-09-14 00:00:00 Completed [facility] TDAP 2010-09-14 00:00:00 Completed [facility] Varicella (varivax)(chicken pox) 2010-09-14 00:00:00 Completed [facility] Hep B, Adol or Pedi Dosage 2010-09-14 00:00:00 Completed [facility] Meningococcal Polysaccharide (groups A, C, Y and W-135) conjugate vaccine (MCV4P) 2010-09-14 00:00:00 Completed [facility] TDAP 2010-09-14 00:00:00 Completed [facility] Varicella (varivax)(chicken pox) 2010-09-14 00:00:00 Completed [facility] Hep B, Adol or Pedi Dosage 2010-09-14 00:00:00 Completed [facility] Meningococcal Polysaccharide (groups A, C, Y and W-135) conjugate vaccine (MCV4P) 2010-09-14 00:00:00 Completed [facility] TDAP 2010-09-14 00:00:00 Completed [facility] Varicella (varivax)(chicken pox) 2010-09-14 00:00:00 Completed [facility] Hep B, Adol or Pedi Dosage 2010-09-14 00:00:00 Completed [facility] Meningococcal Polysaccharide (groups A, C, Y and W-135) conjugate vaccine (MCV4P) 2010-09-14 00:00:00 Completed [facility] TDAP 2010-09-14 00:00:00 Completed [facility] Varicella (varivax)(chicken pox) 2010-09-14 00:00:00 Completed [facility] Hep B, Adol or Pedi Dosage 2010-09-14 00:00:00 Completed [facility] Meningococcal Polysaccharide (groups A, C, Y and W-135) conjugate vaccine (MCV4P) 2010-09-14 00:00:00 Completed [facility] TDAP 2010-09-14 00:00:00 Completed [facility] Varicella (varivax)(chicken pox) 2010-09-14 00:00:00 Completed [facility] Hep B, Adol or Pedi Dosage 2010-09-14 00:00:00 Completed [facility] Meningococcal Polysaccharide (groups A, C, Y and W-135) conjugate vaccine (MCV4P) 2010-09-14 00:00:00 Completed [facility] TDAP 2010-09-14 00:00:00 Completed [facility] Varicella (varivax)(chicken pox) 2010-09-14 00:00:00 Completed [facility] Hep B, Adol or Pedi Dosage 2010-09-14 00:00:00 Completed [facility] Meningococcal Polysaccharide (groups A, C, Y and W-135) conjugate vaccine (MCV4P) 2010-09-14 00:00:00 Completed [facility] TDAP 2010-09-14 00:00:00 Completed [facility] Varicella (varivax)(chicken pox) 2010-09-14 00:00:00 Completed [facility] Hep B, Adol or Pedi Dosage 2010-09-14 00:00:00 Completed [facility] Meningococcal Polysaccharide (groups A, C, Y and W-135) conjugate vaccine (MCV4P) 2010-09-14 00:00:00 Completed [facility] TDAP 2010-09-14 00:00:00 Completed [facility] Varicella (varivax)(chicken pox) 2010-09-14 00:00:00 Completed [facility] Hep B, Adol or Pedi Dosage 2010-09-14 00:00:00 Completed [facility] Meningococcal Polysaccharide (groups A, C, Y and W-135) conjugate vaccine (MCV4P) 2010-09-14 00:00:00 Completed [facility] TDAP 2010-09-14 00:00:00 Completed [facility] Varicella (varivax)(chicken pox) 2010-09-14 00:00:00 Completed [facility] Hep B, Adol or Pedi Dosage 2010-09-14 00:00:00 Completed [facility] Meningococcal Polysaccharide (groups A, C, Y and W-135) conjugate vaccine (MCV4P) 2010-09-14 00:00:00 Completed [facility] TDAP 2010-09-14 00:00:00 Completed [facility] Varicella (varivax)(chicken pox) 2010-09-14 00:00:00 Completed [facility] Hep B, Adol or Pedi Dosage 2010-09-14 00:00:00 Completed [facility] Meningococcal Polysaccharide (groups A, C, Y and W-135) conjugate vaccine (MCV4P) 2010-09-14 00:00:00 Completed [facility] TDAP 2010-09-14 00:00:00 Completed [facility] Varicella (varivax)(chicken pox) 2010-09-14 00:00:00 Completed [facility] Hep B, Adol or Pedi Dosage 2010-09-14 00:00:00 Completed [facility] Meningococcal Polysaccharide (groups A, C, Y and W-135) conjugate vaccine (MCV4P) 2010-09-14 00:00:00 Completed [facility] TDAP 2010-09-14 00:00:00 Completed [facility] Varicella (varivax)(chicken pox) 2010-09-14 00:00:00 Completed [facility] Hep B, Adol or Pedi Dosage 2010-09-14 00:00:00 Completed [facility] Meningococcal Polysaccharide (groups A, C, Y and W-135) conjugate vaccine (MCV4P) 2010-09-14 00:00:00 Completed [facility] TDAP 2010-09-14 00:00:00 Completed [facility] Varicella (varivax)(chicken pox) 2010-09-14 00:00:00 Completed [facility] Hep B, Adol or Pedi Dosage 2010-09-14 00:00:00 Completed [facility] Meningococcal Polysaccharide (groups A, C, Y and W-135) conjugate vaccine (MCV4P) 2010-09-14 00:00:00 Completed [facility] TDAP 2010-09-14 00:00:00 Completed [facility] Varicella (varivax)(chicken pox) 2010-09-14 00:00:00 Completed [facility] Hep B, Adol or Pedi Dosage 2010-09-14 00:00:00 Completed [facility] Meningococcal Polysaccharide (groups A, C, Y and W-135) conjugate vaccine (MCV4P) 2010-09-14 00:00:00 Completed [facility] TDAP 2010-09-14 00:00:00 Completed [facility] Varicella (varivax)(chicken pox) 2010-09-14 00:00:00 Completed [facility] Hep B, Adol or Pedi Dosage 2010-09-14 00:00:00 Completed [facility] Meningococcal Polysaccharide (groups A, C, Y and W-135) conjugate vaccine (MCV4P) 2010-09-14 00:00:00 Completed [facility] TDAP 2010-09-14 00:00:00 Completed [facility] Varicella (varivax)(chicken pox) 2010-09-14 00:00:00 Completed [facility] Hep B, Adol or Pedi Dosage 2010-09-14 00:00:00 Completed [facility] Meningococcal Polysaccharide (groups A, C, Y and W-135) conjugate vaccine (MCV4P) 2010-09-14 00:00:00 Completed [facility] TDAP 2010-09-14 00:00:00 Completed [facility] Varicella (varivax)(chicken pox) 2010-09-14 00:00:00 Completed [facility] Hep B, Adol or Pedi Dosage 2010-09-14 00:00:00 Completed [facility] Meningococcal Polysaccharide (groups A, C, Y and W-135) conjugate vaccine (MCV4P) 2010-09-14 00:00:00 Completed [facility] TDAP 2010-09-14 00:00:00 Completed [facility] Varicella (varivax)(chicken pox) 2010-09-14 00:00:00 Completed [facility] Hep B, Adol or Pedi Dosage 2010-09-14 00:00:00 Completed [facility] Meningococcal Polysaccharide (groups A, C, Y and W-135) conjugate vaccine (MCV4P) 2010-09-14 00:00:00 Completed [facility] TDAP 2010-09-14 00:00:00 Completed [facility] Varicella (varivax)(chicken pox) 2010-09-14 00:00:00 Completed [facility] Hep B, Adol or Pedi Dosage 2010-09-14 00:00:00 Completed [facility] Meningococcal Polysaccharide (groups A, C, Y and W-135) conjugate vaccine (MCV4P) 2010-09-14 00:00:00 Completed [facility] TDAP 2010-09-14 00:00:00 Completed [facility] Varicella (varivax)(chicken pox) 2010-09-14 00:00:00 Completed [facility] DTAP 2004-07-02 00:00:00 Completed [facility] MMR 2004-07-02 00:00:00 Completed [facility] DTAP 2004-07-02 00:00:00 Completed [facility] MMR 2004-07-02 00:00:00 Completed [facility] DTAP 2004-07-02 00:00:00 Completed [facility] MMR 2004-07-02 00:00:00 Completed [facility] DTAP 2004-07-02 00:00:00 Completed [facility] MMR 2004-07-02 00:00:00 Completed [facility] DTAP 2004-07-02 00:00:00 Completed [facility] MMR 2004-07-02 00:00:00 Completed [facility] DTAP 2004-07-02 00:00:00 Completed [facility] MMR 2004-07-02 00:00:00 Completed [facility] DTAP 2004-07-02 00:00:00 Completed [facility] MMR 2004-07-02 00:00:00 Completed [facility] DTAP 2004-07-02 00:00:00 Completed [facility] MMR 2004-07-02 00:00:00 Completed [facility] DTAP 2004-07-02 00:00:00 Completed [facility] MMR 2004-07-02 00:00:00 Completed [facility] DTAP 2004-07-02 00:00:00 Completed [facility] MMR 2004-07-02 00:00:00 Completed [facility] DTAP 2004-07-02 00:00:00 Completed [facility] MMR 2004-07-02 00:00:00 Completed [facility] DTAP 2004-07-02 00:00:00 Completed [facility] MMR 2004-07-02 00:00:00 Completed [facility] DTAP 2004-07-02 00:00:00 Completed [facility] MMR 2004-07-02 00:00:00 Completed [facility] DTAP 2004-07-02 00:00:00 Completed [facility] MMR 2004-07-02 00:00:00 Completed [facility] DTAP 2004-07-02 00:00:00 Completed [facility] MMR 2004-07-02 00:00:00 Completed [facility] DTAP 2004-07-02 00:00:00 Completed [facility] MMR 2004-07-02 00:00:00 Completed [facility] DTAP 2004-07-02 00:00:00 Completed [facility] MMR 2004-07-02 00:00:00 Completed [facility] DTAP 2004-07-02 00:00:00 Completed [facility] MMR 2004-07-02 00:00:00 Completed [facility] DTAP 2004-07-02 00:00:00 Completed [facility] MMR 2004-07-02 00:00:00 Completed [facility] DTAP 2004-07-02 00:00:00 Completed [facility] MMR 2004-07-02 00:00:00 Completed [facility] DTAP 2004-07-02 00:00:00 Completed [facility] MMR 2004-07-02 00:00:00 Completed [facility] DTAP 2004-07-02 00:00:00 Completed [facility] MMR 2004-07-02 00:00:00 Completed [facility] DTAP 2004-07-02 00:00:00 Completed [facility] MMR 2004-07-02 00:00:00 Completed [facility] DTAP 2004-07-02 00:00:00 Completed [facility] MMR 2004-07-02 00:00:00 Completed [facility] DTAP 2004-07-02 00:00:00 Completed [facility] MMR 2004-07-02 00:00:00 Completed [facility] DTAP 2004-07-02 00:00:00 Completed [facility] MMR 2004-07-02 00:00:00 Completed [facility] DTAP 2004-07-02 00:00:00 Completed [facility] MMR 2004-07-02 00:00:00 Completed [facility] DTAP 2004-07-02 00:00:00 Completed [facility] MMR 2004-07-02 00:00:00 Completed [facility] DTAP 2004-07-02 00:00:00 Completed [facility] MMR 2004-07-02 00:00:00 Completed [facility] DTAP 2004-07-02 00:00:00 Completed [facility] MMR 2004-07-02 00:00:00 Completed [facility] DTAP 2004-07-02 00:00:00 Completed [facility] MMR 2004-07-02 00:00:00 Completed [facility] DTAP 2004-07-02 00:00:00 Completed [facility] MMR 2004-07-02 00:00:00 Completed [facility] DTAP 2004-07-02 00:00:00 Completed [facility] MMR 2004-07-02 00:00:00 Completed [facility] DTAP 2004-07-02 00:00:00 Completed [facility] MMR 2004-07-02 00:00:00 Completed [facility] DTAP 2004-07-02 00:00:00 Completed [facility] MMR 2004-07-02 00:00:00 Completed [facility] DTAP 2004-07-02 00:00:00 Completed [facility] MMR 2004-07-02 00:00:00 Completed [facility] DTAP 2004-07-02 00:00:00 Completed [facility] MMR 2004-07-02 00:00:00 Completed [facility] DTAP 2004-07-02 00:00:00 Completed [facility] MMR 2004-07-02 00:00:00 Completed [facility] DTAP 2004-07-02 00:00:00 Completed [facility] MMR 2004-07-02 00:00:00 Completed [facility] DTAP 2004-07-02 00:00:00 Completed [facility] MMR 2004-07-02 00:00:00 Completed [facility] DTAP 2004-07-02 00:00:00 Completed [facility] MMR 2004-07-02 00:00:00 Completed [facility] DTAP 2004-07-02 00:00:00 Completed [facility] MMR 2004-07-02 00:00:00 Completed [facility] DTAP 2004-07-02 00:00:00 Completed [facility] MMR 2004-07-02 00:00:00 Completed [facility] DTAP 2004-07-02 00:00:00 Completed [facility] MMR 2004-07-02 00:00:00 Completed [facility] DTAP 2004-07-02 00:00:00 Completed [facility] MMR 2004-07-02 00:00:00 Completed [facility] DTAP 2004-07-02 00:00:00 Completed [facility] MMR 2004-07-02 00:00:00 Completed [facility] DTAP 2004-07-02 00:00:00 Completed [facility] MMR 2004-07-02 00:00:00 Completed [facility] DTAP 2004-07-02 00:00:00 Completed [facility] MMR 2004-07-02 00:00:00 Completed [facility] DTAP 2004-07-02 00:00:00 Completed [facility] MMR 2004-07-02 00:00:00 Completed [facility] DTAP 2004-07-02 00:00:00 Completed [facility] MMR 2004-07-02 00:00:00 Completed [facility] DTAP 2004-07-02 00:00:00 Completed [facility] MMR 2004-07-02 00:00:00 Completed [facility] DTAP 2004-07-02 00:00:00 Completed [facility] MMR 2004-07-02 00:00:00 Completed [facility] DTAP 2004-07-02 00:00:00 Completed [facility] MMR 2004-07-02 00:00:00 Completed [facility] DTAP 2004-07-02 00:00:00 Completed [facility] MMR 2004-07-02 00:00:00 Completed [facility] DTAP 2004-07-02 00:00:00 Completed [facility] MMR 2004-07-02 00:00:00 Completed [facility] DTAP 2004-07-02 00:00:00 Completed [facility] MMR 2004-07-02 00:00:00 Completed [facility] DTAP 2004-07-02 00:00:00 Completed [facility] MMR 2004-07-02 00:00:00 Completed [facility] DTAP 2004-07-02 00:00:00 Completed [facility] MMR 2004-07-02 00:00:00 Completed [facility] DTAP 2004-07-02 00:00:00 Completed [facility] MMR 2004-07-02 00:00:00 Completed [facility] DTAP 2004-07-02 00:00:00 Completed [facility] MMR 2004-07-02 00:00:00 Completed [facility] DTAP 2004-07-02 00:00:00 Completed [facility] MMR 2004-07-02 00:00:00 Completed [facility] DTAP 2004-07-02 00:00:00 Completed [facility] MMR 2004-07-02 00:00:00 Completed [facility] DTAP 2004-07-02 00:00:00 Completed [facility] MMR 2004-07-02 00:00:00 Completed [facility] DTAP 2004-07-02 00:00:00 Completed [facility] MMR 2004-07-02 00:00:00 Completed [facility] DTAP 2004-07-02 00:00:00 Completed [facility] MMR 2004-07-02 00:00:00 Completed [facility] DTAP 2004-07-02 00:00:00 Completed [facility] MMR 2004-07-02 00:00:00 Completed [facility] DTAP 2004-07-02 00:00:00 Completed [facility] MMR 2004-07-02 00:00:00 Completed [facility] DTAP 2004-07-02 00:00:00 Completed [facility] MMR 2004-07-02 00:00:00 Completed [facility] DTAP 2004-07-02 00:00:00 Completed [facility] MMR 2004-07-02 00:00:00 Completed [facility] DTAP 2004-07-02 00:00:00 Completed [facility] MMR 2004-07-02 00:00:00 Completed [facility] DTAP 2004-07-02 00:00:00 Completed [facility] MMR 2004-07-02 00:00:00 Completed [facility] DTAP 2004-07-02 00:00:00 Completed [facility] MMR 2004-07-02 00:00:00 Completed [facility] DTAP 2004-07-02 00:00:00 Completed [facility] MMR 2004-07-02 00:00:00 Completed [facility] DTAP 2004-07-02 00:00:00 Completed [facility] MMR 2004-07-02 00:00:00 Completed [facility] DTAP 2004-07-02 00:00:00 Completed [facility] MMR 2004-07-02 00:00:00 Completed [facility] DTAP 2004-07-02 00:00:00 Completed [facility] MMR 2004-07-02 00:00:00 Completed [facility] DTAP 2004-07-02 00:00:00 Completed [facility] MMR 2004-07-02 00:00:00 Completed [facility] DTAP 2004-07-02 00:00:00 Completed [facility] MMR 2004-07-02 00:00:00 Completed [facility] DTAP 2004-07-02 00:00:00 Completed [facility] MMR 2004-07-02 00:00:00 Completed [facility] DTAP 2004-07-02 00:00:00 Completed [facility] MMR 2004-07-02 00:00:00 Completed [facility] DTAP 2004-07-02 00:00:00 Completed [facility] MMR 2004-07-02 00:00:00 Completed [facility] DTAP 2004-07-02 00:00:00 Completed [facility] MMR 2004-07-02 00:00:00 Completed [facility] DTAP 2003-11-17 00:00:00 Completed [facility] MMR 2003-11-17 00:00:00 Completed [facility] Polio (IPV/OPV) 2003-11-17 00:00:00 Completed [facility] Varicella (varivax)(chicken pox) 2003-11-17 00:00:00 Completed [facility] DTAP 2003-11-17 00:00:00 Completed [facility] MMR 2003-11-17 00:00:00 Completed [facility] Polio (IPV/OPV) 2003-11-17 00:00:00 Completed [facility] Varicella (varivax)(chicken pox) 2003-11-17 00:00:00 Completed [facility] DTAP 2003-11-17 00:00:00 Completed [facility] MMR 2003-11-17 00:00:00 Completed [facility] Polio (IPV/OPV) 2003-11-17 00:00:00 Completed [facility] Varicella (varivax)(chicken pox) 2003-11-17 00:00:00 Completed [facility] DTAP 2003-11-17 00:00:00 Completed [facility] MMR 2003-11-17 00:00:00 Completed [facility] Polio (IPV/OPV) 2003-11-17 00:00:00 Completed [facility] Varicella (varivax)(chicken pox) 2003-11-17 00:00:00 Completed [facility] DTAP 2003-11-17 00:00:00 Completed [facility] MMR 2003-11-17 00:00:00 Completed [facility] Polio (IPV/OPV) 2003-11-17 00:00:00 Completed [facility] Varicella (varivax)(chicken pox) 2003-11-17 00:00:00 Completed [facility] DTAP 2003-11-17 00:00:00 Completed [facility] MMR 2003-11-17 00:00:00 Completed [facility] Polio (IPV/OPV) 2003-11-17 00:00:00 Completed [facility] Varicella (varivax)(chicken pox) 2003-11-17 00:00:00 Completed [facility] DTAP 2003-11-17 00:00:00 Completed [facility] MMR 2003-11-17 00:00:00 Completed [facility] Polio (IPV/OPV) 2003-11-17 00:00:00 Completed [facility] Varicella (varivax)(chicken pox) 2003-11-17 00:00:00 Completed [facility] DTAP 2003-11-17 00:00:00 Completed [facility] MMR 2003-11-17 00:00:00 Completed [facility] Polio (IPV/OPV) 2003-11-17 00:00:00 Completed [facility] Varicella (varivax)(chicken pox) 2003-11-17 00:00:00 Completed [facility] DTAP 2003-11-17 00:00:00 Completed [facility] MMR 2003-11-17 00:00:00 Completed [facility] Polio (IPV/OPV) 2003-11-17 00:00:00 Completed [facility] Varicella (varivax)(chicken pox) 2003-11-17 00:00:00 Completed [facility] DTAP 2003-11-17 00:00:00 Completed [facility] MMR 2003-11-17 00:00:00 Completed [facility] Polio (IPV/OPV) 2003-11-17 00:00:00 Completed [facility] Varicella (varivax)(chicken pox) 2003-11-17 00:00:00 Completed [facility] DTAP 2003-11-17 00:00:00 Completed [facility] MMR 2003-11-17 00:00:00 Completed [facility] Polio (IPV/OPV) 2003-11-17 00:00:00 Completed [facility] Varicella (varivax)(chicken pox) 2003-11-17 00:00:00 Completed [facility] DTAP 2003-11-17 00:00:00 Completed [facility] MMR 2003-11-17 00:00:00 Completed [facility] Polio (IPV/OPV) 2003-11-17 00:00:00 Completed [facility] Varicella (varivax)(chicken pox) 2003-11-17 00:00:00 Completed [facility] DTAP 2003-11-17 00:00:00 Completed [facility] MMR 2003-11-17 00:00:00 Completed [facility] Polio (IPV/OPV) 2003-11-17 00:00:00 Completed [facility] Varicella (varivax)(chicken pox) 2003-11-17 00:00:00 Completed [facility] DTAP 2003-11-17 00:00:00 Completed [facility] MMR 2003-11-17 00:00:00 Completed [facility] Polio (IPV/OPV) 2003-11-17 00:00:00 Completed [facility] Varicella (varivax)(chicken pox) 2003-11-17 00:00:00 Completed [facility] DTAP 2003-11-17 00:00:00 Completed [facility] MMR 2003-11-17 00:00:00 Completed [facility] Polio (IPV/OPV) 2003-11-17 00:00:00 Completed [facility] Varicella (varivax)(chicken pox) 2003-11-17 00:00:00 Completed [facility] DTAP 2003-11-17 00:00:00 Completed [facility] MMR 2003-11-17 00:00:00 Completed [facility] Polio (IPV/OPV) 2003-11-17 00:00:00 Completed [facility] Varicella (varivax)(chicken pox) 2003-11-17 00:00:00 Completed [facility] DTAP 2003-11-17 00:00:00 Completed [facility] MMR 2003-11-17 00:00:00 Completed [facility] Polio (IPV/OPV) 2003-11-17 00:00:00 Completed [facility] Varicella (varivax)(chicken pox) 2003-11-17 00:00:00 Completed [facility] DTAP 2003-11-17 00:00:00 Completed [facility] MMR 2003-11-17 00:00:00 Completed [facility] Polio (IPV/OPV) 2003-11-17 00:00:00 Completed [facility] Varicella (varivax)(chicken pox) 2003-11-17 00:00:00 Completed [facility] DTAP 2003-11-17 00:00:00 Completed [facility] MMR 2003-11-17 00:00:00 Completed [facility] Polio (IPV/OPV) 2003-11-17 00:00:00 Completed [facility] Varicella (varivax)(chicken pox) 2003-11-17 00:00:00 Completed [facility] DTAP 2003-11-17 00:00:00 Completed [facility] MMR 2003-11-17 00:00:00 Completed [facility] Polio (IPV/OPV) 2003-11-17 00:00:00 Completed [facility] Varicella (varivax)(chicken pox) 2003-11-17 00:00:00 Completed [facility] DTAP 2003-11-17 00:00:00 Completed [facility] MMR 2003-11-17 00:00:00 Completed [facility] Polio (IPV/OPV) 2003-11-17 00:00:00 Completed [facility] Varicella (varivax)(chicken pox) 2003-11-17 00:00:00 Completed [facility] DTAP 2003-11-17 00:00:00 Completed [facility] MMR 2003-11-17 00:00:00 Completed [facility] Polio (IPV/OPV) 2003-11-17 00:00:00 Completed [facility] Varicella (varivax)(chicken pox) 2003-11-17 00:00:00 Completed [facility] DTAP 2003-11-17 00:00:00 Completed [facility] MMR 2003-11-17 00:00:00 Completed [facility] Polio (IPV/OPV) 2003-11-17 00:00:00 Completed [facility] Varicella (varivax)(chicken pox) 2003-11-17 00:00:00 Completed [facility] DTAP 2003-11-17 00:00:00 Completed [facility] MMR 2003-11-17 00:00:00 Completed [facility] Polio (IPV/OPV) 2003-11-17 00:00:00 Completed [facility] Varicella (varivax)(chicken pox) 2003-11-17 00:00:00 Completed [facility] DTAP 2003-11-17 00:00:00 Completed [facility] MMR 2003-11-17 00:00:00 Completed [facility] Polio (IPV/OPV) 2003-11-17 00:00:00 Completed [facility] Varicella (varivax)(chicken pox) 2003-11-17 00:00:00 Completed [facility] DTAP 2003-11-17 00:00:00 Completed [facility] MMR 2003-11-17 00:00:00 Completed [facility] Polio (IPV/OPV) 2003-11-17 00:00:00 Completed [facility] Varicella (varivax)(chicken pox) 2003-11-17 00:00:00 Completed [facility] DTAP 2003-11-17 00:00:00 Completed [facility] MMR 2003-11-17 00:00:00 Completed [facility] Polio (IPV/OPV) 2003-11-17 00:00:00 Completed [facility] Varicella (varivax)(chicken pox) 2003-11-17 00:00:00 Completed [facility] DTAP 2003-11-17 00:00:00 Completed [facility] MMR 2003-11-17 00:00:00 Completed [facility] Polio (IPV/OPV) 2003-11-17 00:00:00 Completed [facility] Varicella (varivax)(chicken pox) 2003-11-17 00:00:00 Completed [facility] DTAP 2003-11-17 00:00:00 Completed [facility] MMR 2003-11-17 00:00:00 Completed [facility] Polio (IPV/OPV) 2003-11-17 00:00:00 Completed [facility] Varicella (varivax)(chicken pox) 2003-11-17 00:00:00 Completed [facility] DTAP 2003-11-17 00:00:00 Completed [facility] MMR 2003-11-17 00:00:00 Completed [facility] Polio (IPV/OPV) 2003-11-17 00:00:00 Completed [facility] Varicella (varivax)(chicken pox) 2003-11-17 00:00:00 Completed [facility] DTAP 2003-11-17 00:00:00 Completed [facility] MMR 2003-11-17 00:00:00 Completed [facility] Polio (IPV/OPV) 2003-11-17 00:00:00 Completed [facility] Varicella (varivax)(chicken pox) 2003-11-17 00:00:00 Completed [facility] DTAP 2003-11-17 00:00:00 Completed [facility] MMR 2003-11-17 00:00:00 Completed [facility] Polio (IPV/OPV) 2003-11-17 00:00:00 Completed [facility] Varicella (varivax)(chicken pox) 2003-11-17 00:00:00 Completed [facility] DTAP 2003-11-17 00:00:00 Completed [facility] MMR 2003-11-17 00:00:00 Completed [facility] Polio (IPV/OPV) 2003-11-17 00:00:00 Completed [facility] Varicella (varivax)(chicken pox) 2003-11-17 00:00:00 Completed [facility] DTAP 2003-11-17 00:00:00 Completed [facility] MMR 2003-11-17 00:00:00 Completed [facility] Polio (IPV/OPV) 2003-11-17 00:00:00 Completed [facility] Varicella (varivax)(chicken pox) 2003-11-17 00:00:00 Completed [facility] DTAP 2003-11-17 00:00:00 Completed [facility] MMR 2003-11-17 00:00:00 Completed [facility] Polio (IPV/OPV) 2003-11-17 00:00:00 Completed [facility] Varicella (varivax)(chicken pox) 2003-11-17 00:00:00 Completed [facility] DTAP 2003-11-17 00:00:00 Completed [facility] MMR 2003-11-17 00:00:00 Completed [facility] Polio (IPV/OPV) 2003-11-17 00:00:00 Completed [facility] Varicella (varivax)(chicken pox) 2003-11-17 00:00:00 Completed [facility] DTAP 2003-11-17 00:00:00 Completed [facility] MMR 2003-11-17 00:00:00 Completed [facility] Polio (IPV/OPV) 2003-11-17 00:00:00 Completed [facility] Varicella (varivax)(chicken pox) 2003-11-17 00:00:00 Completed [facility] DTAP 2003-11-17 00:00:00 Completed [facility] MMR 2003-11-17 00:00:00 Completed [facility] Polio (IPV/OPV) 2003-11-17 00:00:00 Completed [facility] Varicella (varivax)(chicken pox) 2003-11-17 00:00:00 Completed [facility] DTAP 2003-11-17 00:00:00 Completed [facility] MMR 2003-11-17 00:00:00 Completed [facility] Polio (IPV/OPV) 2003-11-17 00:00:00 Completed [facility] Varicella (varivax)(chicken pox) 2003-11-17 00:00:00 Completed [facility] DTAP 2003-11-17 00:00:00 Completed [facility] MMR 2003-11-17 00:00:00 Completed [facility] Polio (IPV/OPV) 2003-11-17 00:00:00 Completed [facility] Varicella (varivax)(chicken pox) 2003-11-17 00:00:00 Completed [facility] DTAP 2003-11-17 00:00:00 Completed [facility] MMR 2003-11-17 00:00:00 Completed [facility] Polio (IPV/OPV) 2003-11-17 00:00:00 Completed [facility] Varicella (varivax)(chicken pox) 2003-11-17 00:00:00 Completed [facility] DTAP 2003-11-17 00:00:00 Completed [facility] MMR 2003-11-17 00:00:00 Completed [facility] Polio (IPV/OPV) 2003-11-17 00:00:00 Completed [facility] Varicella (varivax)(chicken pox) 2003-11-17 00:00:00 Completed [facility] DTAP 2003-11-17 00:00:00 Completed [facility] MMR 2003-11-17 00:00:00 Completed [facility] Polio (IPV/OPV) 2003-11-17 00:00:00 Completed [facility] Varicella (varivax)(chicken pox) 2003-11-17 00:00:00 Completed [facility] DTAP 2003-11-17 00:00:00 Completed [facility] MMR 2003-11-17 00:00:00 Completed [facility] Polio (IPV/OPV) 2003-11-17 00:00:00 Completed [facility] Varicella (varivax)(chicken pox) 2003-11-17 00:00:00 Completed [facility] DTAP 2003-11-17 00:00:00 Completed [facility] MMR 2003-11-17 00:00:00 Completed [facility] Polio (IPV/OPV) 2003-11-17 00:00:00 Completed [facility] Varicella (varivax)(chicken pox) 2003-11-17 00:00:00 Completed [facility] DTAP 2003-11-17 00:00:00 Completed [facility] MMR 2003-11-17 00:00:00 Completed [facility] Polio (IPV/OPV) 2003-11-17 00:00:00 Completed [facility] Varicella (varivax)(chicken pox) 2003-11-17 00:00:00 Completed [facility] DTAP 2003-11-17 00:00:00 Completed [facility] MMR 2003-11-17 00:00:00 Completed [facility] Polio (IPV/OPV) 2003-11-17 00:00:00 Completed [facility] Varicella (varivax)(chicken pox) 2003-11-17 00:00:00 Completed [facility] DTAP 2003-11-17 00:00:00 Completed [facility] MMR 2003-11-17 00:00:00 Completed [facility] Polio (IPV/OPV) 2003-11-17 00:00:00 Completed [facility] Varicella (varivax)(chicken pox) 2003-11-17 00:00:00 Completed [facility] DTAP 2003-11-17 00:00:00 Completed [facility] MMR 2003-11-17 00:00:00 Completed [facility] Polio (IPV/OPV) 2003-11-17 00:00:00 Completed [facility] Varicella (varivax)(chicken pox) 2003-11-17 00:00:00 Completed [facility] DTAP 2003-11-17 00:00:00 Completed [facility] MMR 2003-11-17 00:00:00 Completed [facility] Polio (IPV/OPV) 2003-11-17 00:00:00 Completed [facility] Varicella (varivax)(chicken pox) 2003-11-17 00:00:00 Completed [facility] DTAP 2003-11-17 00:00:00 Completed [facility] MMR 2003-11-17 00:00:00 Completed [facility] Polio (IPV/OPV) 2003-11-17 00:00:00 Completed [facility] Varicella (varivax)(chicken pox) 2003-11-17 00:00:00 Completed [facility] DTAP 2003-11-17 00:00:00 Completed [facility] MMR 2003-11-17 00:00:00 Completed [facility] Polio (IPV/OPV) 2003-11-17 00:00:00 Completed [facility] Varicella (varivax)(chicken pox) 2003-11-17 00:00:00 Completed [facility] DTAP 2003-11-17 00:00:00 Completed [facility] MMR 2003-11-17 00:00:00 Completed [facility] Polio (IPV/OPV) 2003-11-17 00:00:00 Completed [facility] Varicella (varivax)(chicken pox) 2003-11-17 00:00:00 Completed [facility] DTAP 2003-11-17 00:00:00 Completed [facility] MMR 2003-11-17 00:00:00 Completed [facility] Polio (IPV/OPV) 2003-11-17 00:00:00 Completed [facility] Varicella (varivax)(chicken pox) 2003-11-17 00:00:00 Completed [facility] DTAP 2003-11-17 00:00:00 Completed [facility] MMR 2003-11-17 00:00:00 Completed [facility] Polio (IPV/OPV) 2003-11-17 00:00:00 Completed [facility] Varicella (varivax)(chicken pox) 2003-11-17 00:00:00 Completed [facility] DTAP 2003-11-17 00:00:00 Completed [facility] MMR 2003-11-17 00:00:00 Completed [facility] Polio (IPV/OPV) 2003-11-17 00:00:00 Completed [facility] Varicella (varivax)(chicken pox) 2003-11-17 00:00:00 Completed [facility] DTAP 2003-11-17 00:00:00 Completed [facility] MMR 2003-11-17 00:00:00 Completed [facility] Polio (IPV/OPV) 2003-11-17 00:00:00 Completed [facility] Varicella (varivax)(chicken pox) 2003-11-17 00:00:00 Completed [facility] DTAP 2003-11-17 00:00:00 Completed [facility] MMR 2003-11-17 00:00:00 Completed [facility] Polio (IPV/OPV) 2003-11-17 00:00:00 Completed [facility] Varicella (varivax)(chicken pox) 2003-11-17 00:00:00 Completed [facility] DTAP 2003-11-17 00:00:00 Completed [facility] MMR 2003-11-17 00:00:00 Completed [facility] Polio (IPV/OPV) 2003-11-17 00:00:00 Completed [facility] Varicella (varivax)(chicken pox) 2003-11-17 00:00:00 Completed [facility] DTAP 2003-11-17 00:00:00 Completed [facility] MMR 2003-11-17 00:00:00 Completed [facility] Polio (IPV/OPV) 2003-11-17 00:00:00 Completed [facility] Varicella (varivax)(chicken pox) 2003-11-17 00:00:00 Completed [facility] DTAP 2003-11-17 00:00:00 Completed [facility] MMR 2003-11-17 00:00:00 Completed [facility] Polio (IPV/OPV) 2003-11-17 00:00:00 Completed [facility] Varicella (varivax)(chicken pox) 2003-11-17 00:00:00 Completed [facility] DTAP 2003-11-17 00:00:00 Completed [facility] MMR 2003-11-17 00:00:00 Completed [facility] Polio (IPV/OPV) 2003-11-17 00:00:00 Completed [facility] Varicella (varivax)(chicken pox) 2003-11-17 00:00:00 Completed [facility] DTAP 2003-11-17 00:00:00 Completed [facility] MMR 2003-11-17 00:00:00 Completed [facility] Polio (IPV/OPV) 2003-11-17 00:00:00 Completed [facility] Varicella (varivax)(chicken pox) 2003-11-17 00:00:00 Completed [facility] DTAP 2003-11-17 00:00:00 Completed [facility] MMR 2003-11-17 00:00:00 Completed [facility] Polio (IPV/OPV) 2003-11-17 00:00:00 Completed [facility] Varicella (varivax)(chicken pox) 2003-11-17 00:00:00 Completed [facility] DTAP 2003-11-17 00:00:00 Completed [facility] MMR 2003-11-17 00:00:00 Completed [facility] Polio (IPV/OPV) 2003-11-17 00:00:00 Completed [facility] Varicella (varivax)(chicken pox) 2003-11-17 00:00:00 Completed [facility] DTAP 2003-11-17 00:00:00 Completed [facility] MMR 2003-11-17 00:00:00 Completed [facility] Polio (IPV/OPV) 2003-11-17 00:00:00 Completed [facility] Varicella (varivax)(chicken pox) 2003-11-17 00:00:00 Completed [facility] DTAP 2003-11-17 00:00:00 Completed [facility] MMR 2003-11-17 00:00:00 Completed [facility] Polio (IPV/OPV) 2003-11-17 00:00:00 Completed [facility] Varicella (varivax)(chicken pox) 2003-11-17 00:00:00 Completed [facility] DTAP 2003-11-17 00:00:00 Completed [facility] MMR 2003-11-17 00:00:00 Completed [facility] Polio (IPV/OPV) 2003-11-17 00:00:00 Completed [facility] Varicella (varivax)(chicken pox) 2003-11-17 00:00:00 Completed [facility] DTAP 2003-11-17 00:00:00 Completed [facility] MMR 2003-11-17 00:00:00 Completed [facility] Polio (IPV/OPV) 2003-11-17 00:00:00 Completed [facility] Varicella (varivax)(chicken pox) 2003-11-17 00:00:00 Completed [facility] DTAP 2003-11-17 00:00:00 Completed [facility] MMR 2003-11-17 00:00:00 Completed [facility] Polio (IPV/OPV) 2003-11-17 00:00:00 Completed [facility] Varicella (varivax)(chicken pox) 2003-11-17 00:00:00 Completed [facility] DTAP 2003-11-17 00:00:00 Completed [facility] MMR 2003-11-17 00:00:00 Completed [facility] Polio (IPV/OPV) 2003-11-17 00:00:00 Completed [facility] Varicella (varivax)(chicken pox) 2003-11-17 00:00:00 Completed [facility] DTAP 2003-11-17 00:00:00 Completed [facility] MMR 2003-11-17 00:00:00 Completed [facility] Polio (IPV/OPV) 2003-11-17 00:00:00 Completed [facility] Varicella (varivax)(chicken pox) 2003-11-17 00:00:00 Completed [facility] DTAP 2003-11-17 00:00:00 Completed [facility] MMR 2003-11-17 00:00:00 Completed [facility] Polio (IPV/OPV) 2003-11-17 00:00:00 Completed [facility] Varicella (varivax)(chicken pox) 2003-11-17 00:00:00 Completed [facility] DTAP 2003-11-17 00:00:00 Completed [facility] MMR 2003-11-17 00:00:00 Completed [facility] Polio (IPV/OPV) 2003-11-17 00:00:00 Completed [facility] Varicella (varivax)(chicken pox) 2003-11-17 00:00:00 Completed [facility] DTAP 2003-11-17 00:00:00 Completed [facility] MMR 2003-11-17 00:00:00 Completed [facility] Polio (IPV/OPV) 2003-11-17 00:00:00 Completed [facility] Varicella (varivax)(chicken pox) 2003-11-17 00:00:00 Completed [facility] DTAP 2003-11-17 00:00:00 Completed [facility] MMR 2003-11-17 00:00:00 Completed [facility] Polio (IPV/OPV) 2003-11-17 00:00:00 Completed [facility] Varicella (varivax)(chicken pox) 2003-11-17 00:00:00 Completed [facility] DTAP 2003-11-17 00:00:00 Completed [facility] MMR 2003-11-17 00:00:00 Completed [facility] Polio (IPV/OPV) 2003-11-17 00:00:00 Completed [facility] Varicella (varivax)(chicken pox) 2003-11-17 00:00:00 Completed [facility] DTAP 2003-11-17 00:00:00 Completed [facility] MMR 2003-11-17 00:00:00 Completed [facility] Polio (IPV/OPV) 2003-11-17 00:00:00 Completed [facility] Varicella (varivax)(chicken pox) 2003-11-17 00:00:00 Completed [facility] DTAP 2003-11-17 00:00:00 Completed [facility] MMR 2003-11-17 00:00:00 Completed [facility] Polio (IPV/OPV) 2003-11-17 00:00:00 Completed [facility] Varicella (varivax)(chicken pox) 2003-11-17 00:00:00 Completed [facility] DTAP 2003-11-17 00:00:00 Completed [facility] MMR 2003-11-17 00:00:00 Completed [facility] Polio (IPV/OPV) 2003-11-17 00:00:00 Completed [facility] Varicella (varivax)(chicken pox) 2003-11-17 00:00:00 Completed [facility] DTAP 2003-11-17 00:00:00 Completed [facility] MMR 2003-11-17 00:00:00 Completed [facility] Polio (IPV/OPV) 2003-11-17 00:00:00 Completed [facility] Varicella (varivax)(chicken pox) 2003-11-17 00:00:00 Completed [facility] DTAP 2003-11-17 00:00:00 Completed [facility] MMR 2003-11-17 00:00:00 Completed [facility] Polio (IPV/OPV) 2003-11-17 00:00:00 Completed [facility] Varicella (varivax)(chicken pox) 2003-11-17 00:00:00 Completed [facility] DTAP 2003-11-17 00:00:00 Completed MMR 2003-11-17 00:00:00 Completed Varicella (varivax)(chicken pox) 2003-11-17 00:00:00 Completed DTAP 1999-08-09 00:00:00 Completed [facility] HIB 4 Dose Schedule 1999-08-09 00:00:00 Completed [facility] Polio (IPV/OPV) 1999-08-09 00:00:00 Completed [facility] DTAP 1999-08-09 00:00:00 Completed [facility] HIB 4 Dose Schedule 1999-08-09 00:00:00 Completed [facility] Polio (IPV/OPV) 1999-08-09 00:00:00 Completed [facility] DTAP 1999-08-09 00:00:00 Completed [facility] HIB 4 Dose Schedule 1999-08-09 00:00:00 Completed [facility] Polio (IPV/OPV) 1999-08-09 00:00:00 Completed [facility] DTAP 1999-08-09 00:00:00 Completed [facility] HIB 4 Dose Schedule 1999-08-09 00:00:00 Completed [facility] Polio (IPV/OPV) 1999-08-09 00:00:00 Completed [facility] DTAP 1999-08-09 00:00:00 Completed [facility] HIB 4 Dose Schedule 1999-08-09 00:00:00 Completed [facility] Polio (IPV/OPV) 1999-08-09 00:00:00 Completed [facility] DTAP 1999-08-09 00:00:00 Completed [facility] HIB 4 Dose Schedule 1999-08-09 00:00:00 Completed [facility] Polio (IPV/OPV) 1999-08-09 00:00:00 Completed [facility] DTAP 1999-08-09 00:00:00 Completed [facility] HIB 4 Dose Schedule 1999-08-09 00:00:00 Completed [facility] Polio (IPV/OPV) 1999-08-09 00:00:00 Completed [facility] DTAP 1999-08-09 00:00:00 Completed [facility] HIB 4 Dose Schedule 1999-08-09 00:00:00 Completed [facility] Polio (IPV/OPV) 1999-08-09 00:00:00 Completed [facility] DTAP 1999-08-09 00:00:00 Completed [facility] HIB 4 Dose Schedule 1999-08-09 00:00:00 Completed [facility] Polio (IPV/OPV) 1999-08-09 00:00:00 Completed [facility] DTAP 1999-08-09 00:00:00 Completed [facility] HIB 4 Dose Schedule 1999-08-09 00:00:00 Completed [facility] Polio (IPV/OPV) 1999-08-09 00:00:00 Completed [facility] DTAP 1999-08-09 00:00:00 Completed [facility] HIB 4 Dose Schedule 1999-08-09 00:00:00 Completed [facility] Polio (IPV/OPV) 1999-08-09 00:00:00 Completed [facility] DTAP 1999-08-09 00:00:00 Completed [facility] HIB 4 Dose Schedule 1999-08-09 00:00:00 Completed [facility] Polio (IPV/OPV) 1999-08-09 00:00:00 Completed [facility] DTAP 1999-08-09 00:00:00 Completed [facility] HIB 4 Dose Schedule 1999-08-09 00:00:00 Completed [facility] Polio (IPV/OPV) 1999-08-09 00:00:00 Completed [facility] DTAP 1999-08-09 00:00:00 Completed [facility] HIB 4 Dose Schedule 1999-08-09 00:00:00 Completed [facility] Polio (IPV/OPV) 1999-08-09 00:00:00 Completed [facility] DTAP 1999-08-09 00:00:00 Completed [facility] HIB 4 Dose Schedule 1999-08-09 00:00:00 Completed [facility] Polio (IPV/OPV) 1999-08-09 00:00:00 Completed [facility] DTAP 1999-08-09 00:00:00 Completed [facility] HIB 4 Dose Schedule 1999-08-09 00:00:00 Completed [facility] Polio (IPV/OPV) 1999-08-09 00:00:00 Completed [facility] DTAP 1999-08-09 00:00:00 Completed [facility] HIB 4 Dose Schedule 1999-08-09 00:00:00 Completed [facility] Polio (IPV/OPV) 1999-08-09 00:00:00 Completed [facility] DTAP 1999-08-09 00:00:00 Completed [facility] HIB 4 Dose Schedule 1999-08-09 00:00:00 Completed [facility] Polio (IPV/OPV) 1999-08-09 00:00:00 Completed [facility] DTAP 1999-08-09 00:00:00 Completed [facility] HIB 4 Dose Schedule 1999-08-09 00:00:00 Completed [facility] Polio (IPV/OPV) 1999-08-09 00:00:00 Completed [facility] DTAP 1999-08-09 00:00:00 Completed [facility] HIB 4 Dose Schedule 1999-08-09 00:00:00 Completed [facility] Polio (IPV/OPV) 1999-08-09 00:00:00 Completed [facility] DTAP 1999-08-09 00:00:00 Completed [facility] HIB 4 Dose Schedule 1999-08-09 00:00:00 Completed [facility] Polio (IPV/OPV) 1999-08-09 00:00:00 Completed [facility] DTAP 1999-08-09 00:00:00 Completed [facility] HIB 4 Dose Schedule 1999-08-09 00:00:00 Completed [facility] Polio (IPV/OPV) 1999-08-09 00:00:00 Completed [facility] DTAP 1999-08-09 00:00:00 Completed [facility] HIB 4 Dose Schedule 1999-08-09 00:00:00 Completed [facility] Polio (IPV/OPV) 1999-08-09 00:00:00 Completed [facility] DTAP 1999-08-09 00:00:00 Completed [facility] HIB 4 Dose Schedule 1999-08-09 00:00:00 Completed [facility] Polio (IPV/OPV) 1999-08-09 00:00:00 Completed [facility] DTAP 1999-08-09 00:00:00 Completed [facility] HIB 4 Dose Schedule 1999-08-09 00:00:00 Completed [facility] Polio (IPV/OPV) 1999-08-09 00:00:00 Completed [facility] DTAP 1999-08-09 00:00:00 Completed [facility] HIB 4 Dose Schedule 1999-08-09 00:00:00 Completed [facility] Polio (IPV/OPV) 1999-08-09 00:00:00 Completed [facility] DTAP 1999-08-09 00:00:00 Completed [facility] HIB 4 Dose Schedule 1999-08-09 00:00:00 Completed [facility] Polio (IPV/OPV) 1999-08-09 00:00:00 Completed [facility] DTAP 1999-08-09 00:00:00 Completed [facility] HIB 4 Dose Schedule 1999-08-09 00:00:00 Completed [facility] Polio (IPV/OPV) 1999-08-09 00:00:00 Completed [facility] DTAP 1999-08-09 00:00:00 Completed [facility] HIB 4 Dose Schedule 1999-08-09 00:00:00 Completed [facility] Polio (IPV/OPV) 1999-08-09 00:00:00 Completed [facility] DTAP 1999-08-09 00:00:00 Completed [facility] HIB 4 Dose Schedule 1999-08-09 00:00:00 Completed [facility] Polio (IPV/OPV) 1999-08-09 00:00:00 Completed [facility] DTAP 1999-08-09 00:00:00 Completed [facility] HIB 4 Dose Schedule 1999-08-09 00:00:00 Completed [facility] Polio (IPV/OPV) 1999-08-09 00:00:00 Completed [facility] DTAP 1999-08-09 00:00:00 Completed [facility] HIB 4 Dose Schedule 1999-08-09 00:00:00 Completed [facility] Polio (IPV/OPV) 1999-08-09 00:00:00 Completed [facility] DTAP 1999-08-09 00:00:00 Completed [facility] HIB 4 Dose Schedule 1999-08-09 00:00:00 Completed [facility] Polio (IPV/OPV) 1999-08-09 00:00:00 Completed [facility] DTAP 1999-08-09 00:00:00 Completed [facility] HIB 4 Dose Schedule 1999-08-09 00:00:00 Completed [facility] Polio (IPV/OPV) 1999-08-09 00:00:00 Completed [facility] DTAP 1999-08-09 00:00:00 Completed [facility] HIB 4 Dose Schedule 1999-08-09 00:00:00 Completed [facility] Polio (IPV/OPV) 1999-08-09 00:00:00 Completed [facility] DTAP 1999-08-09 00:00:00 Completed [facility] HIB 4 Dose Schedule 1999-08-09 00:00:00 Completed [facility] Polio (IPV/OPV) 1999-08-09 00:00:00 Completed [facility] DTAP 1999-08-09 00:00:00 Completed [facility] HIB 4 Dose Schedule 1999-08-09 00:00:00 Completed [facility] Polio (IPV/OPV) 1999-08-09 00:00:00 Completed [facility] DTAP 1999-08-09 00:00:00 Completed [facility] HIB 4 Dose Schedule 1999-08-09 00:00:00 Completed [facility] Polio (IPV/OPV) 1999-08-09 00:00:00 Completed [facility] DTAP 1999-08-09 00:00:00 Completed [facility] HIB 4 Dose Schedule 1999-08-09 00:00:00 Completed [facility] Polio (IPV/OPV) 1999-08-09 00:00:00 Completed [facility] DTAP 1999-08-09 00:00:00 Completed [facility] HIB 4 Dose Schedule 1999-08-09 00:00:00 Completed [facility] Polio (IPV/OPV) 1999-08-09 00:00:00 Completed [facility] DTAP 1999-08-09 00:00:00 Completed [facility] HIB 4 Dose Schedule 1999-08-09 00:00:00 Completed [facility] Polio (IPV/OPV) 1999-08-09 00:00:00 Completed [facility] DTAP 1999-08-09 00:00:00 Completed [facility] HIB 4 Dose Schedule 1999-08-09 00:00:00 Completed [facility] Polio (IPV/OPV) 1999-08-09 00:00:00 Completed [facility] DTAP 1999-08-09 00:00:00 Completed [facility] HIB 4 Dose Schedule 1999-08-09 00:00:00 Completed [facility] Polio (IPV/OPV) 1999-08-09 00:00:00 Completed [facility] DTAP 1999-08-09 00:00:00 Completed [facility] HIB 4 Dose Schedule 1999-08-09 00:00:00 Completed [facility] Polio (IPV/OPV) 1999-08-09 00:00:00 Completed [facility] DTAP 1999-08-09 00:00:00 Completed [facility] HIB 4 Dose Schedule 1999-08-09 00:00:00 Completed [facility] Polio (IPV/OPV) 1999-08-09 00:00:00 Completed [facility] DTAP 1999-08-09 00:00:00 Completed [facility] HIB 4 Dose Schedule 1999-08-09 00:00:00 Completed [facility] Polio (IPV/OPV) 1999-08-09 00:00:00 Completed [facility] DTAP 1999-08-09 00:00:00 Completed [facility] HIB 4 Dose Schedule 1999-08-09 00:00:00 Completed [facility] Polio (IPV/OPV) 1999-08-09 00:00:00 Completed [facility] DTAP 1999-08-09 00:00:00 Completed [facility] HIB 4 Dose Schedule 1999-08-09 00:00:00 Completed [facility] Polio (IPV/OPV) 1999-08-09 00:00:00 Completed [facility] DTAP 1999-08-09 00:00:00 Completed [facility] HIB 4 Dose Schedule 1999-08-09 00:00:00 Completed [facility] Polio (IPV/OPV) 1999-08-09 00:00:00 Completed [facility] DTAP 1999-08-09 00:00:00 Completed [facility] HIB 4 Dose Schedule 1999-08-09 00:00:00 Completed [facility] Polio (IPV/OPV) 1999-08-09 00:00:00 Completed [facility] DTAP 1999-08-09 00:00:00 Completed [facility] HIB 4 Dose Schedule 1999-08-09 00:00:00 Completed [facility] Polio (IPV/OPV) 1999-08-09 00:00:00 Completed [facility] DTAP 1999-08-09 00:00:00 Completed [facility] HIB 4 Dose Schedule 1999-08-09 00:00:00 Completed [facility] Polio (IPV/OPV) 1999-08-09 00:00:00 Completed [facility] DTAP 1999-08-09 00:00:00 Completed [facility] HIB 4 Dose Schedule 1999-08-09 00:00:00 Completed [facility] Polio (IPV/OPV) 1999-08-09 00:00:00 Completed [facility] DTAP 1999-08-09 00:00:00 Completed [facility] HIB 4 Dose Schedule 1999-08-09 00:00:00 Completed [facility] Polio (IPV/OPV) 1999-08-09 00:00:00 Completed [facility] DTAP 1999-08-09 00:00:00 Completed [facility] HIB 4 Dose Schedule 1999-08-09 00:00:00 Completed [facility] Polio (IPV/OPV) 1999-08-09 00:00:00 Completed [facility] DTAP 1999-08-09 00:00:00 Completed [facility] HIB 4 Dose Schedule 1999-08-09 00:00:00 Completed [facility] Polio (IPV/OPV) 1999-08-09 00:00:00 Completed [facility] DTAP 1999-08-09 00:00:00 Completed [facility] HIB 4 Dose Schedule 1999-08-09 00:00:00 Completed [facility] Polio (IPV/OPV) 1999-08-09 00:00:00 Completed [facility] DTAP 1999-08-09 00:00:00 Completed [facility] HIB 4 Dose Schedule 1999-08-09 00:00:00 Completed [facility] Polio (IPV/OPV) 1999-08-09 00:00:00 Completed [facility] DTAP 1999-08-09 00:00:00 Completed [facility] HIB 4 Dose Schedule 1999-08-09 00:00:00 Completed [facility] Polio (IPV/OPV) 1999-08-09 00:00:00 Completed [facility] DTAP 1999-08-09 00:00:00 Completed [facility] HIB 4 Dose Schedule 1999-08-09 00:00:00 Completed [facility] Polio (IPV/OPV) 1999-08-09 00:00:00 Completed [facility] DTAP 1999-08-09 00:00:00 Completed [facility] HIB 4 Dose Schedule 1999-08-09 00:00:00 Completed [facility] Polio (IPV/OPV) 1999-08-09 00:00:00 Completed [facility] DTAP 1999-08-09 00:00:00 Completed [facility] HIB 4 Dose Schedule 1999-08-09 00:00:00 Completed [facility] Polio (IPV/OPV) 1999-08-09 00:00:00 Completed [facility] DTAP 1999-08-09 00:00:00 Completed [facility] HIB 4 Dose Schedule 1999-08-09 00:00:00 Completed [facility] Polio (IPV/OPV) 1999-08-09 00:00:00 Completed [facility] DTAP 1999-08-09 00:00:00 Completed [facility] HIB 4 Dose Schedule 1999-08-09 00:00:00 Completed [facility] Polio (IPV/OPV) 1999-08-09 00:00:00 Completed [facility] DTAP 1999-08-09 00:00:00 Completed [facility] HIB 4 Dose Schedule 1999-08-09 00:00:00 Completed [facility] Polio (IPV/OPV) 1999-08-09 00:00:00 Completed [facility] DTAP 1999-08-09 00:00:00 Completed [facility] HIB 4 Dose Schedule 1999-08-09 00:00:00 Completed [facility] Polio (IPV/OPV) 1999-08-09 00:00:00 Completed [facility] DTAP 1999-08-09 00:00:00 Completed [facility] HIB 4 Dose Schedule 1999-08-09 00:00:00 Completed [facility] Polio (IPV/OPV) 1999-08-09 00:00:00 Completed [facility] DTAP 1999-08-09 00:00:00 Completed [facility] HIB 4 Dose Schedule 1999-08-09 00:00:00 Completed [facility] Polio (IPV/OPV) 1999-08-09 00:00:00 Completed [facility] DTAP 1999-08-09 00:00:00 Completed [facility] HIB 4 Dose Schedule 1999-08-09 00:00:00 Completed [facility] Polio (IPV/OPV) 1999-08-09 00:00:00 Completed [facility] DTAP 1999-08-09 00:00:00 Completed [facility] HIB 4 Dose Schedule 1999-08-09 00:00:00 Completed [facility] Polio (IPV/OPV) 1999-08-09 00:00:00 Completed [facility] DTAP 1999-08-09 00:00:00 Completed [facility] HIB 4 Dose Schedule 1999-08-09 00:00:00 Completed [facility] Polio (IPV/OPV) 1999-08-09 00:00:00 Completed [facility] DTAP 1999-08-09 00:00:00 Completed [facility] HIB 4 Dose Schedule 1999-08-09 00:00:00 Completed [facility] Polio (IPV/OPV) 1999-08-09 00:00:00 Completed [facility] DTAP 1999-08-09 00:00:00 Completed [facility] HIB 4 Dose Schedule 1999-08-09 00:00:00 Completed [facility] Polio (IPV/OPV) 1999-08-09 00:00:00 Completed [facility] DTAP 1999-08-09 00:00:00 Completed [facility] HIB 4 Dose Schedule 1999-08-09 00:00:00 Completed [facility] Polio (IPV/OPV) 1999-08-09 00:00:00 Completed [facility] DTAP 1999-08-09 00:00:00 Completed [facility] HIB 4 Dose Schedule 1999-08-09 00:00:00 Completed [facility] Polio (IPV/OPV) 1999-08-09 00:00:00 Completed [facility] DTAP 1999-08-09 00:00:00 Completed [facility] HIB 4 Dose Schedule 1999-08-09 00:00:00 Completed [facility] Polio (IPV/OPV) 1999-08-09 00:00:00 Completed [facility] DTAP 1999-08-09 00:00:00 Completed [facility] HIB 4 Dose Schedule 1999-08-09 00:00:00 Completed [facility] Polio (IPV/OPV) 1999-08-09 00:00:00 Completed [facility] DTAP 1999-08-09 00:00:00 Completed [facility] HIB 4 Dose Schedule 1999-08-09 00:00:00 Completed [facility] Polio (IPV/OPV) 1999-08-09 00:00:00 Completed [facility] DTAP 1999-08-09 00:00:00 Completed [facility] HIB 4 Dose Schedule 1999-08-09 00:00:00 Completed [facility] Polio (IPV/OPV) 1999-08-09 00:00:00 Completed [facility] DTAP 1999-08-09 00:00:00 Completed [facility] HIB 4 Dose Schedule 1999-08-09 00:00:00 Completed [facility] Polio (IPV/OPV) 1999-08-09 00:00:00 Completed [facility] DTAP 1999-08-09 00:00:00 Completed [facility] HIB 4 Dose Schedule 1999-08-09 00:00:00 Completed [facility] Polio (IPV/OPV) 1999-08-09 00:00:00 Completed [facility] DTAP 1999-08-09 00:00:00 Completed [facility] HIB 4 Dose Schedule 1999-08-09 00:00:00 Completed [facility] Polio (IPV/OPV) 1999-08-09 00:00:00 Completed [facility] MMR 1999-02-27 00:00:00 Completed [facility] Varicella (varivax)(chicken pox) 1999-02-27 00:00:00 Completed [facility] MMR 1999-02-27 00:00:00 Completed [facility] Varicella (varivax)(chicken pox) 1999-02-27 00:00:00 Completed [facility] MMR 1999-02-27 00:00:00 Completed [facility] Varicella (varivax)(chicken pox) 1999-02-27 00:00:00 Completed [facility] MMR 1999-02-27 00:00:00 Completed [facility] Varicella (varivax)(chicken pox) 1999-02-27 00:00:00 Completed [facility] MMR 1999-02-27 00:00:00 Completed [facility] Varicella (varivax)(chicken pox) 1999-02-27 00:00:00 Completed [facility] MMR 1999-02-27 00:00:00 Completed [facility] Varicella (varivax)(chicken pox) 1999-02-27 00:00:00 Completed [facility] MMR 1999-02-27 00:00:00 Completed [facility] Varicella (varivax)(chicken pox) 1999-02-27 00:00:00 Completed [facility] MMR 1999-02-27 00:00:00 Completed [facility] Varicella (varivax)(chicken pox) 1999-02-27 00:00:00 Completed [facility] MMR 1999-02-27 00:00:00 Completed [facility] Varicella (varivax)(chicken pox) 1999-02-27 00:00:00 Completed [facility] 1999-02-27 00:00:00 Completed [facility] Varicella (varivax)(chicken pox) 1999-02-27 00:00:00 Completed [facility] 1999-02-27 00:00:00 Completed [facility] Varicella (varivax)(chicken pox) 1999-02-27 00:00:00 Completed [facility] 1999-02-27 00:00:00 Completed [facility] Varicella (varivax)(chicken pox) 1999-02-27 00:00:00 Completed [facility] 1999-02-27 00:00:00 Completed [facility] Varicella (varivax)(chicken pox) 1999-02-27 00:00:00 Completed [facility] 1999-02-27 00:00:00 Completed [facility] Varicella (varivax)(chicken pox) 1999-02-27 00:00:00 Completed [facility] 1999-02-27 00:00:00 Completed [facility] Varicella (varivax)(chicken pox) 1999-02-27 00:00:00 Completed [facility] 1999-02-27 00:00:00 Completed [facility] Varicella (varivax)(chicken pox) 1999-02-27 00:00:00 Completed [facility] 1999-02-27 00:00:00 Completed [facility] Varicella (varivax)(chicken pox) 1999-02-27 00:00[facility] [facility] 1999-[facility]-27 00:00:00 Completed [facility] Varicella (varivax)(chicken pox) 1999-02-27 00:00:00 Completed [facility] 1999-02-27 00:00:00 Completed [facility] Varicella (varivax)(chicken pox) 1999-02-27 00:00:00 Completed [facility] 1999-02-27 00:00:00 Completed [facility] Varicella (varivax)(chicken pox) 1999-02-27 00:00:00 Completed [facility] 1999-02-27 00:00:00 Completed [facility] Varicella (varivax)(chicken pox) 1999-02-27 00:00:00 Completed [facility] 1999-02-27 00:00:00 Completed [facility] Varicella (varivax)(chicken pox) 1999-02-27 00:00:00 Completed [facility] 1999-02-27 00:00:00 Completed [facility] Varicella (varivax)(chicken pox) 1999-02-27 00:00:00 Completed [facility] 1999-02-27 00:00:00 Completed [facility] Varicella (varivax)(chicken pox) 1999-02-27 00:00:00 Completed [facility] 1999-02-27 00:00:00 Completed [facility] Varicella (varivax)(chicken pox) 1999-02-27 00:00:00 Completed [facility] 1999-02-27 00:00:00 Completed [facility] Varicella (varivax)(chicken pox) 1999-02-27 00:00:00 Completed [facility] 1999-02-27 00:00:00 Completed [facility] Varicella (varivax)(chicken pox) 1999-02-27 00:00:00 Completed [facility] 1999-02-27 00:00:00 Completed [facility] Varicella (varivax)(chicken pox) 1999-02-27 00:00:00 Completed [facility] 1999-02-27 00:00:00 Completed [facility] Varicella (varivax)(chicken pox) 1999-02-27 00:00:00 Completed [facility] 1999-02-27 00:00:00 Completed [facility] Varicella (varivax)(chicken pox) 1999-02-27 00:00:00 Completed [facility] 1999-02-27 00:00:00 Completed [facility] Varicella (varivax)(chicken pox) 1999-02-27 00:00:00 Completed [facility] 1999-02-27 00:00:00 Completed [facility] Varicella (varivax)(chicken pox) 1999-02-27 00:00:00 Completed [facility] 1999-02-27 00:00:00 Completed [facility] Varicella (varivax)(chicken pox) 1999-02-27 00:00:00 Completed [facility] 1999-02-27 00:00:00 Completed [facility] Varicella (varivax)(chicken pox) 1999-02-27 00:00:00 Completed [facility] 1999-02-27 00:00:00 Completed [facility] Varicella (varivax)(chicken pox) 1999-02-27 00:00:00 Completed [facility] 1999-02-27 00:00:00 Completed [facility] Varicella (varivax)(chicken pox) 1999-02-27 00:00:00 Completed [facility] 1999-02-27 00:00:00 Completed [facility] Varicella (varivax)(chicken pox) 1999-02-27 00:00:00 Completed [facility] 1999-02-27 00:00:00 Completed [facility] Varicella (varivax)(chicken pox) 1999-02-27 00:00:00 Completed [facility] 1999-02-27 00:00:00 Completed [facility] Varicella (varivax)(chicken pox) 1999-02-27 00:00:00 Completed [facility] 1999-02-27 00:00:00 Completed [facility] Varicella (varivax)(chicken pox) 1999-02-27 00:00:00 Completed [facility] 1999-02-27 00:00:00 Completed [facility] Varicella (varivax)(chicken pox) 1999-02-27 00:00:00 Completed [facility] 1999-02-27 00:00:00 Completed [facility] Varicella (varivax)(chicken pox) 1999-02-27 00:00:00 Completed [facility] 1999-02-27 00:00:00 Completed [facility] Varicella (varivax)(chicken pox) 1999-02-27 00:00:00 Completed [facility] 1999-02-27 00:00:00 Completed [facility] Varicella (varivax)(chicken pox) 1999-02-27 00:00:00 Completed [facility] 1999-02-27 00:00:00 Completed [facility] Varicella (varivax)(chicken pox) 1999-02-27 00:00:00 Completed [facility] 1999-02-27 00:00:00 Completed [facility] Varicella (varivax)(chicken pox) 1999-02-27 00:00:00 Completed [facility] 1999-02-27 00:00:00 Completed [facility] Varicella (varivax)(chicken pox) 1999-02-27 00:00:00 Completed [facility] 1999-02-27 00:00:00 Completed [facility] Varicella (varivax)(chicken pox) 1999-02-27 00:00:00 Completed [facility] 1999-02-27 00:00:00 Completed [facility] Varicella (varivax)(chicken pox) 1999-02-27 00:00:00 Completed [facility] 1999-02-27 00:00:00 Completed [facility] Varicella (varivax)(chicken pox) 1999-02-27 00:00:00 Completed [facility] 1999-02-27 00:00:00 Completed [facility] Varicella (varivax)(chicken pox) 1999-02-27 00:00:00 Completed [facility] 1999-02-27 00:00:00 Completed [facility] Varicella (varivax)(chicken pox) 1999-02-27 00:00:00 Completed [facility] 1999-02-27 00:00:00 Completed [facility] Varicella (varivax)(chicken pox) 1999-02-27 00:00:00 Completed [facility] 1999-02-27 00:00:00 Completed [facility] Varicella (varivax)(chicken pox) 1999-02-27 00:00:00 Completed [facility] 1999-02-27 00:00:00 Completed [facility] Varicella (varivax)(chicken pox) 1999-02-27 00:00:00 Completed [facility] 1999-02-27 00:00:00 Completed [facility] Varicella (varivax)(chicken pox) 1999-02-27 00:00:00 Completed [facility] 1999-02-27 00:00:00 Completed [facility] Varicella (varivax)(chicken pox) 1999-02-27 00:00:00 Completed [facility] 1999-02-27 00:00:00 Completed [facility] Varicella (varivax)(chicken pox) 1999-02-27 00:00:00 Completed [facility] 1999-02-27 00:00:00 Completed [facility] Varicella (varivax)(chicken pox) 1999-02-27 00:00:00 Completed [facility] 1999-02-27 00:00:00 Completed [facility] Varicella (varivax)(chicken pox) 1999-02-27 00:00:00 Completed [facility] 1999-02-27 00:00:00 Completed [facility] Varicella (varivax)(chicken pox) 1999-02-27 00:00:00 Completed [facility] 1999-02-27 00:00:00 Completed [facility] Varicella (varivax)(chicken pox) 1999-02-27 00:00:00 Completed [facility] 1999-02-27 00:00:00 Completed [facility] Varicella (varivax)(chicken pox) 1999-02-27 00:00:00 Completed [facility] 1999-02-27 00:00:00 Completed [facility] Varicella (varivax)(chicken pox) 1999-02-27 00:00:00 Completed [facility] 1999-02-27 00:00:00 Completed [facility] Varicella (varivax)(chicken pox) 1999-02-27 00:00:00 Completed [facility] 1999-02-27 00:00:00 Completed [facility] Varicella (varivax)(chicken pox) 1999-02-27 00:00:00 Completed [facility] 1999-02-27 00:00:00 Completed [facility] Varicella (varivax)(chicken pox) 1999-02-27 00:00:00 Completed [facility] 1999-02-27 00:00:00 Completed [facility] Varicella (varivax)(chicken pox) 1999-02-27 00:00:00 Completed [facility] 1999-02-27 00:00:00 Completed [facility] Varicella (varivax)(chicken pox) 1999-02-27 00:00:00 Completed [facility] 1999-02-27 00:00:00 Completed [facility] Varicella (varivax)(chicken pox) 1999-02-27 00:00:00 Completed [facility] 1999-02-27 00:00:00 Completed [facility] Varicella (varivax)(chicken pox) 1999-02-27 00:00:00 Completed [facility] 1999-02-27 00:00:00 Completed [facility] Varicella (varivax)(chicken pox) 1999-02-27 00:00:00 Completed [facility] 1999-02-27 00:00:00 Completed [facility] Varicella (varivax)(chicken pox) 1999-02-27 00:00:00 Completed [facility] 1999-02-27 00:00:00 Completed [facility] Varicella (varivax)(chicken pox) 1999-02-27 00:00:00 Completed [facility] 1999-02-27 00:00:00 Completed [facility] Varicella (varivax)(chicken pox) 1999-02-27 00:00:00 Completed [facility] 1999-02-27 00:00:00 Completed [facility] Varicella (varivax)(chicken pox) 1999-02-27 00:00:00 Completed [facility] 1999-02-27 00:00:00 Completed [facility] Varicella (varivax)(chicken pox) 1999-02-27 00:00:00 Completed [facility] 1999-02-27 00:00:00 Completed [facility] Varicella (varivax)(chicken pox) 1999-02-27 00:00:00 Completed [facility] 1999-02-27 00:00:00 Completed [facility] Varicella (varivax)(chicken pox) 1999-02-27 00:00:00 Completed [facility] MMR 1999-02-27 00:00:00 Completed [facility] Varicella (varivax)(chicken pox) 1999-02-27 00:00:00 Completed [facility] MMR 1999-02-27 00:00:00 Completed [facility] Varicella (varivax)(chicken pox) 1999-02-27 00:00:00 Completed [facility] MMR 1999-02-27 00:00:00 Completed [facility] Varicella (varivax)(chicken pox) 1999-02-27 00:00:00 Completed [facility] DTAP 1998 00:00:00 Completed [facility] HIB 4 Dose Schedule 1998 00:00:00 Completed [facility] Polio (IPV/OPV) 1998 00:00:00 Completed [facility] DTAP 1998 00:00:00 Completed [facility] HIB 4 Dose Schedule 1998 00:00:00 Completed [facility] Polio (IPV/OPV) 1998 00:00:00 Completed [facility] DTAP 1998 00:00:00 Completed [facility] HIB 4 Dose Schedule 1998 00:00:00 Completed [facility] Polio (IPV/OPV) 1998 00:00:00 Completed [facility] DTAP 1998 00:00:00 Completed [facility] HIB 4 Dose Schedule 1998 00:00:00 Completed [facility] Polio (IPV/OPV) 1998 00:00:00 Completed [facility] DTAP 1998 00:00:00 Completed [facility] HIB 4 Dose Schedule 1998 00:00:00 Completed [facility] Polio (IPV/OPV) 1998 00:00:00 Completed [facility] DTAP 1998 00:00:00 Completed [facility] HIB 4 Dose Schedule 1998 00:00:00 Completed [facility] Polio (IPV/OPV) 1998 00:00:00 Completed [facility] DTAP 1998 00:00:00 Completed [facility] HIB 4 Dose Schedule 1998 00:00:00 Completed [facility] Polio (IPV/OPV) 1998 00:00:00 Completed [facility] DTAP 1998 00:00:00 Completed [facility] HIB 4 Dose Schedule 1998 00:00:00 Completed [facility] Polio (IPV/OPV) 1998 00:00:00 Completed [facility] DTAP 1998 00:00:00 Completed [facility] HIB 4 Dose Schedule 1998 00:00:00 Completed [facility] Polio (IPV/OPV) 1998 00:00:00 Completed [facility] DTAP 1998 00:00:00 Completed [facility] HIB 4 Dose Schedule 1998 00:00:00 Completed [facility] Polio (IPV/OPV) 1998 00:00:00 Completed [facility] DTAP 1998 00:00:00 Completed [facility] HIB 4 Dose Schedule 1998 00:00:00 Completed [facility] Polio (IPV/OPV) 1998 00:00:00 Completed [facility] DTAP 1998 00:00:00 Completed [facility] HIB 4 Dose Schedule 1998 00:00:00 Completed [facility] Polio (IPV/OPV) 1998 00:00:00 Completed [facility] DTAP 1998 00:00:00 Completed [facility] HIB 4 Dose Schedule 1998 00:00:00 Completed [facility] Polio (IPV/OPV) 1998 00:00:00 Completed [facility] DTAP 1998 00:00:00 Completed [facility] HIB 4 Dose Schedule 1998 00:00:00 Completed [facility] Polio (IPV/OPV) 1998 00:00:00 Completed [facility] DTAP 1998 00:00:00 Completed [facility] HIB 4 Dose Schedule 1998 00:00:00 Completed [facility] Polio (IPV/OPV) 1998 00:00:00 Completed [facility] DTAP 1998 00:00:00 Completed [facility] HIB 4 Dose Schedule 1998 00:00:00 Completed [facility] Polio (IPV/OPV) 1998 00:00:00 Completed [facility] DTAP 1998 00:00:00 Completed [facility] HIB 4 Dose Schedule 1998 00:00:00 Completed [facility] Polio (IPV/OPV) 1998 00:00:00 Completed [facility] DTAP 1998 00:00:00 Completed [facility] HIB 4 Dose Schedule 1998 00:00:00 Completed [facility] Polio (IPV/OPV) 1998 00:00:00 Completed [facility] DTAP 1998 00:00:00 Completed [facility] HIB 4 Dose Schedule 1998 00:00:00 Completed [facility] Polio (IPV/OPV) 1998 00:00:00 Completed [facility] DTAP 1998 00:00:00 Completed [facility] HIB 4 Dose Schedule 1998 00:00:00 Completed [facility] Polio (IPV/OPV) 1998 00:00:00 Completed [facility] DTAP 1998 00:00:00 Completed [facility] HIB 4 Dose Schedule 1998 00:00:00 Completed [facility] Polio (IPV/OPV) 1998 00:00:00 Completed [facility] DTAP 1998 00:00:00 Completed [facility] HIB 4 Dose Schedule 1998 00:00:00 Completed [facility] Polio (IPV/OPV) 1998 00:00:00 Completed [facility] DTAP 1998 00:00:00 Completed [facility] HIB 4 Dose Schedule 1998 00:00:00 Completed [facility] Polio (IPV/OPV) 1998 00:00:00 Completed [facility] DTAP 1998 00:00:00 Completed [facility] HIB 4 Dose Schedule 1998 00:00:00 Completed [facility] Polio (IPV/OPV) 1998 00:00:00 Completed [facility] DTAP 1998 00:00:00 Completed [facility] HIB 4 Dose Schedule 1998 00:00:00 Completed [facility] Polio (IPV/OPV) 1998 00:00:00 Completed [facility] DTAP 1998 00:00:00 Completed [facility] HIB 4 Dose Schedule 1998 00:00:00 Completed [facility] Polio (IPV/OPV) 1998 00:00:00 Completed [facility] DTAP 1998 00:00:00 Completed [facility] HIB 4 Dose Schedule 1998 00:00:00 Completed [facility] Polio (IPV/OPV) 1998 00:00:00 Completed [facility] DTAP 1998 00:00:00 Completed [facility] HIB 4 Dose Schedule 1998 00:00:00 Completed [facility] Polio (IPV/OPV) 1998 00:00:00 Completed [facility] DTAP 1998 00:00:00 Completed [facility] HIB 4 Dose Schedule 1998 00:00:00 Completed [facility] Polio (IPV/OPV) 1998 00:00:00 Completed [facility] DTAP 1998 00:00:00 Completed [facility] HIB 4 Dose Schedule 1998 00:00:00 Completed [facility] Polio (IPV/OPV) 1998 00:00:00 Completed [facility] DTAP 1998 00:00:00 Completed [facility] HIB 4 Dose Schedule 1998 00:00:00 Completed [facility] Polio (IPV/OPV) 1998 00:00:00 Completed [facility] DTAP 1998 00:00:00 Completed [facility] HIB 4 Dose Schedule 1998 00:00:00 Completed [facility] Polio (IPV/OPV) 1998 00:00:00 Completed [facility] DTAP 1998 00:00:00 Completed [facility] HIB 4 Dose Schedule 1998 00:00:00 Completed [facility] Polio (IPV/OPV) 1998 00:00:00 Completed [facility] DTAP 1998 00:00:00 Completed [facility] HIB 4 Dose Schedule 1998 00:00:00 Completed [facility] Polio (IPV/OPV) 1998 00:00:00 Completed [facility] DTAP 1998 00:00:00 Completed [facility] HIB 4 Dose Schedule 1998 00:00:00 Completed [facility] Polio (IPV/OPV) 1998 00:00:00 Completed [facility] DTAP 1998 00:00:00 Completed [facility] HIB 4 Dose Schedule 1998 00:00:00 Completed [facility] Polio (IPV/OPV) 1998 00:00:00 Completed [facility] DTAP 1998 00:00:00 Completed [facility] HIB 4 Dose Schedule 1998 00:00:00 Completed [facility] Polio (IPV/OPV) 1998 00:00:00 Completed [facility] DTAP 1998 00:00:00 Completed [facility] HIB 4 Dose Schedule 1998 00:00:00 Completed [facility] Polio (IPV/OPV) 1998 00:00:00 Completed [facility] DTAP 1998 00:00:00 Completed [facility] HIB 4 Dose Schedule 1998 00:00:00 Completed [facility] Polio (IPV/OPV) 1998 00:00:00 Completed [facility] DTAP 1998 00:00:00 Completed [facility] HIB 4 Dose Schedule 1998 00:00:00 Completed [facility] Polio (IPV/OPV) 1998 00:00:00 Completed [facility] DTAP 1998 00:00:00 Completed [facility] HIB 4 Dose Schedule 1998 00:00:00 Completed [facility] Polio (IPV/OPV) 1998 00:00:00 Completed [facility] DTAP 1998 00:00:00 Completed [facility] HIB 4 Dose Schedule 1998 00:00:00 Completed [facility] Polio (IPV/OPV) 1998 00:00:00 Completed [facility] DTAP 1998 00:00:00 Completed [facility] HIB 4 Dose Schedule 1998 00:00:00 Completed [facility] Polio (IPV/OPV) 1998 00:00:00 Completed [facility] DTAP 1998 00:00:00 Completed [facility] HIB 4 Dose Schedule 1998 00:00:00 Completed [facility] Polio (IPV/OPV) 1998 00:00:00 Completed [facility] DTAP 1998 00:00:00 Completed [facility] HIB 4 Dose Schedule 1998 00:00:00 Completed [facility] Polio (IPV/OPV) 1998 00:00:00 Completed [facility] DTAP 1998 00:00:00 Completed [facility] HIB 4 Dose Schedule 1998 00:00:00 Completed [facility] Polio (IPV/OPV) 1998 00:00:00 Completed [facility] DTAP 1998 00:00:00 Completed [facility] HIB 4 Dose Schedule 1998 00:00:00 Completed [facility] Polio (IPV/OPV) 1998 00:00:00 Completed [facility] DTAP 1998 00:00:00 Completed [facility] HIB 4 Dose Schedule 1998 00:00:00 Completed [facility] Polio (IPV/OPV) 1998 00:00:00 Completed [facility] DTAP 1998 00:00:00 Completed [facility] HIB 4 Dose Schedule 1998 00:00:00 Completed [facility] Polio (IPV/OPV) 1998 00:00:00 Completed [facility] DTAP 1998 00:00:00 Completed [facility] HIB 4 Dose Schedule 1998 00:00:00 Completed [facility] Polio (IPV/OPV) 1998 00:00:00 Completed [facility] DTAP 1998 00:00:00 Completed [facility] HIB 4 Dose Schedule 1998 00:00:00 Completed [facility] Polio (IPV/OPV) 1998 00:00:00 Completed [facility] DTAP 1998 00:00:00 Completed [facility] HIB 4 Dose Schedule 1998 00:00:00 Completed [facility] Polio (IPV/OPV) 1998 00:00:00 Completed [facility] DTAP 1998 00:00:00 Completed [facility] HIB 4 Dose Schedule 1998 00:00:00 Completed [facility] Polio (IPV/OPV) 1998 00:00:00 Completed [facility] DTAP 1998 00:00:00 Completed [facility] HIB 4 Dose Schedule 1998 00:00:00 Completed [facility] Polio (IPV/OPV) 1998 00:00:00 Completed [facility] DTAP 1998 00:00:00 Completed [facility] HIB 4 Dose Schedule 1998 00:00:00 Completed [facility] Polio (IPV/OPV) 1998 00:00:00 Completed [facility] DTAP 1998 00:00:00 Completed [facility] HIB 4 Dose Schedule 1998 00:00:00 Completed [facility] Polio (IPV/OPV) 1998 00:00:00 Completed [facility] DTAP 1998 00:00:00 Completed [facility] HIB 4 Dose Schedule 1998 00:00:00 Completed [facility] Polio (IPV/OPV) 1998 00:00:00 Completed [facility] DTAP 1998 00:00:00 Completed [facility] HIB 4 Dose Schedule 1998 00:00:00 Completed [facility] Polio (IPV/OPV) 1998 00:00:00 Completed [facility] DTAP 1998 00:00:00 Completed [facility] HIB 4 Dose Schedule 1998 00:00:00 Completed [facility] Polio (IPV/OPV) 1998 00:00:00 Completed [facility] DTAP 1998 00:00:00 Completed [facility] HIB 4 Dose Schedule 1998 00:00:00 Completed [facility] Polio (IPV/OPV) 1998 00:00:00 Completed [facility] DTAP 1998 00:00:00 Completed [facility] HIB 4 Dose Schedule 1998 00:00:00 Completed [facility] Polio (IPV/OPV) 1998 00:00:00 Completed [facility] DTAP 1998 00:00:00 Completed [facility] HIB 4 Dose Schedule 1998 00:00:00 Completed [facility] Polio (IPV/OPV) 1998 00:00:00 Completed [facility] DTAP 1998 00:00:00 Completed [facility] HIB 4 Dose Schedule 1998 00:00:00 Completed [facility] Polio (IPV/OPV) 1998 00:00:00 Completed [facility] DTAP 1998 00:00:00 Completed [facility] HIB 4 Dose Schedule 1998 00:00:00 Completed [facility] Polio (IPV/OPV) 1998 00:00:00 Completed [facility] DTAP 1998 00:00:00 Completed [facility] HIB 4 Dose Schedule 1998 00:00:00 Completed [facility] Polio (IPV/OPV) 1998 00:00:00 Completed [facility] DTAP 1998 00:00:00 Completed [facility] HIB 4 Dose Schedule 1998 00:00:00 Completed [facility] Polio (IPV/OPV) 1998 00:00:00 Completed [facility] DTAP 1998 00:00:00 Completed [facility] HIB 4 Dose Schedule 1998 00:00:00 Completed [facility] Polio (IPV/OPV) 1998 00:00:00 Completed [facility] DTAP 1998 00:00:00 Completed [facility] HIB 4 Dose Schedule 1998 00:00:00 Completed [facility] Polio (IPV/OPV) 1998 00:00:00 Completed [facility] DTAP 1998 00:00:00 Completed [facility] HIB 4 Dose Schedule 1998 00:00:00 Completed [facility] Polio (IPV/OPV) 1998 00:00:00 Completed [facility] DTAP 1998 00:00:00 Completed [facility] HIB 4 Dose Schedule 1998 00:00:00 Completed [facility] Polio (IPV/OPV) 1998 00:00:00 Completed [facility] DTAP 1998 00:00:00 Completed [facility] HIB 4 Dose Schedule 1998 00:00:00 Completed [facility] Polio (IPV/OPV) 1998 00:00:00 Completed [facility] DTAP 1998 00:00:00 Completed [facility] HIB 4 Dose Schedule 1998 00:00:00 Completed [facility] Polio (IPV/OPV) 1998 00:00:00 Completed [facility] DTAP 1998 00:00:00 Completed [facility] HIB 4 Dose Schedule 1998 00:00:00 Completed [facility] Polio (IPV/OPV) 1998 00:00:00 Completed [facility] DTAP 1998 00:00:00 Completed [facility] HIB 4 Dose Schedule 1998 00:00:00 Completed [facility] Polio (IPV/OPV) 1998 00:00:00 Completed [facility] DTAP 1998 00:00:00 Completed [facility] HIB 4 Dose Schedule 1998 00:00:00 Completed [facility] Polio (IPV/OPV) 1998 00:00:00 Completed [facility] DTAP 1998 00:00:00 [facility] HIB 4 Dose Schedule 1998 00:00:00 Completed [facility] Polio (IPV/OPV) 1998 00:00:00 Completed [facility] DTAP 1998 00:00:00 Completed [facility] HIB 4 Dose Schedule 1998 00:00:00 Completed [facility] Polio (IPV/OPV) 1998 00:00:00 Completed [facility] DTAP 1998 00:00:00 Completed [facility] HIB 4 Dose Schedule 1998 00:00:00 Completed [facility] Polio (IPV/OPV) 1998 00:00:00 Completed [facility] DTAP 1998 00:00:00 Completed [facility] HIB 4 Dose Schedule 1998 00:00:00 Completed [facility] Polio (IPV/OPV) 1998 00:00:00 Completed [facility] DTAP 1998 00:00:00 Completed [facility] HIB 4 Dose Schedule 1998 00:00:00 Completed [facility] Polio (IPV/OPV) 1998 00:00:00 Completed [facility] DTAP 1998 00:00:00 Completed [facility] HIB 4 Dose Schedule 1998 00:00:00 Completed [facility] Polio (IPV/OPV) 1998 00:00:00 Completed [facility] DTAP 1998 00:00:00 Completed [facility] HIB 4 Dose Schedule 1998 00:00:00 Completed [facility] Polio (IPV/OPV) 1998 00:00:00 Completed [facility] DTAP 1998 00:00:00 Completed Polio (IPV/OPV) 1998 00:00:00 Completed DTAP 1998 00:00:00 Completed [facility] HIB 4 Dose Schedule 1998 00:00:00 Completed [facility] Polio (IPV/OPV) 1998 00:00:00 Completed [facility] DTAP 1998 00:00:00 Completed [facility] HIB 4 Dose Schedule 1998 00:00:00 Completed [facility] Polio (IPV/OPV) 1998 00:00:00 Completed [facility] DTAP 1998 00:00:00 Completed [facility] HIB 4 Dose Schedule 1998 00:00:00 Completed [facility] Polio (IPV/OPV) 1998 00:00:00 Completed [facility] DTAP 1998 00:00:00 Completed [facility] HIB 4 Dose Schedule 1998 00:00:00 Completed [facility] Polio (IPV/OPV) 1998 00:00:00 Completed [facility] DTAP 1998 00:00:00 Completed [facility] HIB 4 Dose Schedule 1998 00:00:00 Completed [facility] Polio (IPV/OPV) 1998 00:00:00 Completed [facility] DTAP 1998 00:00:00 Completed [facility] HIB 4 Dose Schedule 1998 00:00:00 Completed [facility] Polio (IPV/OPV) 1998 00:00:00 Completed [facility] DTAP 1998 00:00:00 Completed [facility] HIB 4 Dose Schedule 1998 00:00:00 Completed [facility] Polio (IPV/OPV) 1998 00:00:00 Completed [facility] DTAP 1998 00:00:00 Completed [facility] HIB 4 Dose Schedule 1998 00:00:00 Completed [facility] Polio (IPV/OPV) 1998 00:00:00 Completed [facility] DTAP 1998 00:00:00 Completed [facility] HIB 4 Dose Schedule 1998 00:00:00 Completed [facility] Polio (IPV/OPV) 1998 00:00:00 Completed [facility] DTAP 1998 00:00:00 Completed [facility] HIB 4 Dose Schedule 1998 00:00:00 Completed [facility] Polio (IPV/OPV) 1998 00:00:00 Completed [facility] DTAP 1998 00:00:00 Completed [facility] HIB 4 Dose Schedule 1998 00:00:00 Completed [facility] Polio (IPV/OPV) 1998 00:00:00 Completed [facility] DTAP 1998 00:00:00 Completed [facility] HIB 4 Dose Schedule 1998 00:00:00 Completed [facility] Polio (IPV/OPV) 1998 00:00:00 Completed [facility] DTAP 1998 00:00:00 Completed [facility] HIB 4 Dose Schedule 1998 00:00:00 Completed [facility] Polio (IPV/OPV) 1998 00:00:00 Completed [facility] DTAP 1998 00:00:00 Completed [facility] HIB 4 Dose Schedule 1998 00:00:00 Completed [facility] Polio (IPV/OPV) 1998 00:00:00 Completed [facility] DTAP 1998 00:00:00 Completed [facility] HIB 4 Dose Schedule 1998 00:00:00 Completed [facility] Polio (IPV/OPV) 1998 00:00:00 Completed [facility] DTAP 1998 00:00:00 Completed [facility] HIB 4 Dose Schedule 1998 00:00:00 Completed [facility] Polio (IPV/OPV) 1998 00:00:00 Completed [facility] DTAP 1998 00:00:00 Completed [facility] HIB 4 Dose Schedule 1998 00:00:00 Completed [facility] Polio (IPV/OPV) 1998 00:00:00 Completed [facility] DTAP 1998 00:00:00 Completed [facility] HIB 4 Dose Schedule 1998 00:00:00 Completed [facility] Polio (IPV/OPV) 1998 00:00:00 Completed [facility] DTAP 1998 00:00:00 Completed [facility] HIB 4 Dose Schedule 1998 00:00:00 Completed [facility] Polio (IPV/OPV) 1998 00:00:00 Completed [facility] DTAP 1998 00:00:00 Completed [facility] HIB 4 Dose Schedule 1998 00:00:00 Completed [facility] Polio (IPV/OPV) 1998 00:00:00 Completed [facility] DTAP 1998 00:00:00 Completed [facility] HIB 4 Dose Schedule 1998 00:00:00 Completed [facility] Polio (IPV/OPV) 1998 00:00:00 Completed [facility] DTAP 1998 00:00:00 Completed [facility] HIB 4 Dose Schedule 1998 00:00:00 Completed [facility] Polio (IPV/OPV) 1998 00:00:00 Completed [facility] DTAP 1998 00:00:00 Completed [facility] HIB 4 Dose Schedule 1998 00:00:00 Completed [facility] Polio (IPV/OPV) 1998 00:00:00 Completed [facility] DTAP 1998 00:00:00 Completed [facility] HIB 4 Dose Schedule 1998 00:00:00 Completed [facility] Polio (IPV/OPV) 1998 00:00:00 Completed [facility] DTAP 1998 00:00:00 Completed [facility] HIB 4 Dose Schedule 1998 00:00:00 Completed [facility] Polio (IPV/OPV) 1998 00:00:00 Completed [facility] DTAP 1998 00:00:00 Completed [facility] HIB 4 Dose Schedule 1998 00:00:00 Completed [facility] Polio (IPV/OPV) 1998 00:00:00 Completed [facility] DTAP 1998 00:00:00 Completed [facility] HIB 4 Dose Schedule 1998 00:00:00 Completed [facility] Polio (IPV/OPV) 1998 00:00:00 Completed [facility] DTAP 1998 00:00:00 Completed [facility] HIB 4 Dose Schedule 1998 00:00:00 Completed [facility] Polio (IPV/OPV) 1998 00:00:00 Completed [facility] DTAP 1998 00:00:00 Completed [facility] HIB 4 Dose Schedule 1998 00:00:00 Completed [facility] Polio (IPV/OPV) 1998 00:00:00 Completed [facility] DTAP 1998 00:00:00 Completed [facility] HIB 4 Dose Schedule 1998 00:00:00 Completed [facility] Polio (IPV/OPV) 1998 00:00:00 Completed [facility] DTAP 1998 00:00:00 Completed [facility] HIB 4 Dose Schedule 1998 00:00:00 Completed [facility] Polio (IPV/OPV) 1998 00:00:00 Completed [facility] DTAP 1998 00:00:00 Completed [facility] HIB 4 Dose Schedule 1998 00:00:00 Completed [facility] Polio (IPV/OPV) 1998 00:00:00 Completed [facility] DTAP 1998 00:00:00 Completed [facility] HIB 4 Dose Schedule 1998 00:00:00 Completed [facility] Polio (IPV/OPV) 1998 00:00:00 Completed [facility] DTAP 1998 00:00:00 Completed [facility] HIB 4 Dose Schedule 1998 00:00:00 Completed [facility] Polio (IPV/OPV) 1998 00:00:00 Completed [facility] DTAP 1998 00:00:00 Completed [facility] HIB 4 Dose Schedule 1998 00:00:00 Completed [facility] Polio (IPV/OPV) 1998 00:00:00 Completed [facility] DTAP 1998 00:00:00 Completed [facility] HIB 4 Dose Schedule 1998 00:00:00 Completed [facility] Polio (IPV/OPV) 1998 00:00:00 Completed [facility] DTAP 1998 00:00:00 Completed [facility] HIB 4 Dose Schedule 1998 00:00:00 Completed [facility] Polio (IPV/OPV) 1998 00:00:00 Completed [facility] DTAP 1998 00:00:00 Completed [facility] HIB 4 Dose Schedule 1998 00:00:00 Completed [facility] Polio (IPV/OPV) 1998 00:00:00 Completed [facility] DTAP 1998 00:00:00 Completed [facility] HIB 4 Dose Schedule 1998 00:00:00 Completed [facility] Polio (IPV/OPV) 1998 00:00:00 Completed [facility] DTAP 1998 00:00:00 Completed [facility] HIB 4 Dose Schedule 1998 00:00:00 Completed [facility] Polio (IPV/OPV) 1998 00:00:00 Completed [facility] DTAP 1998 00:00:00 Completed [facility] HIB 4 Dose Schedule 1998 00:00:00 Completed [facility] Polio (IPV/OPV) 1998 00:00:00 Completed [facility] DTAP 1998 00:00:00 Completed [facility] HIB 4 Dose Schedule 1998 00:00:00 Completed [facility] Polio (IPV/OPV) 1998 00:00:00 Completed [facility] DTAP 1998 00:00:00 Completed [facility] HIB 4 Dose Schedule 1998 00:00:00 Completed [facility] Polio (IPV/OPV) 1998 00:00:00 Completed [facility] DTAP 1998 00:00:00 Completed [facility] HIB 4 Dose Schedule 1998 00:00:00 Completed [facility] Polio (IPV/OPV) 1998 00:00:00 Completed [facility] DTAP 1998 00:00:00 Completed [facility] HIB 4 Dose Schedule 1998 00:00:00 Completed [facility] Polio (IPV/OPV) 1998 00:00:00 Completed [facility] DTAP 1998 00:00:00 Completed [facility] HIB 4 Dose Schedule 1998 00:00:00 Completed [facility] Polio (IPV/OPV) 1998 00:00:00 Completed [facility] DTAP 1998 00:00:00 Completed [facility] HIB 4 Dose Schedule 1998 00:00:00 Completed [facility] Polio (IPV/OPV) 1998 00:00:00 Completed [facility] DTAP 1998 00:00:00 Completed [facility] HIB 4 Dose Schedule 1998 00:00:00 Completed [facility] Polio (IPV/OPV) 1998 00:00:00 Completed [facility] DTAP 1998 00:00:00 Completed [facility] HIB 4 Dose Schedule 1998 00:00:00 Completed [facility] Polio (IPV/OPV) 1998 00:00:00 Completed [facility] DTAP 1998 00:00:00 Completed [facility] HIB 4 Dose Schedule 1998 00:00:00 Completed [facility] Polio (IPV/OPV) 1998 00:00:00 Completed [facility] DTAP 1998 00:00:00 Completed [facility] HIB 4 Dose Schedule 1998 00:00:00 Completed [facility] Polio (IPV/OPV) 1998 00:00:00 Completed [facility] DTAP 1998 00:00:00 Completed [facility] HIB 4 Dose Schedule 1998 00:00:00 Completed [facility] Polio (IPV/OPV) 1998 00:00:00 Completed [facility] DTAP 1998 00:00:00 Completed [facility] HIB 4 Dose Schedule 1998 00:00:00 Completed [facility] Polio (IPV/OPV) 1998 00:00:00 Completed [facility] DTAP 1998 00:00:00 Completed [facility] HIB 4 Dose Schedule 1998 00:00:00 Completed [facility] Polio (IPV/OPV) 1998 00:00:00 Completed [facility] DTAP 1998 00:00:00 Completed [facility] HIB 4 Dose Schedule 1998 00:00:00 Completed [facility] Polio (IPV/OPV) 1998 00:00:00 Completed [facility] DTAP 1998 00:00:00 Completed [facility] HIB 4 Dose Schedule 1998 00:00:00 Completed [facility] Polio (IPV/OPV) 1998 00:00:00 Completed [facility] DTAP 1998 00:00:00 Completed [facility] HIB 4 Dose Schedule 1998 00:00:00 Completed [facility] Polio (IPV/OPV) 1998 00:00:00 Completed [facility] DTAP 1998 00:00:00 Completed [facility] HIB 4 Dose Schedule 1998 00:00:00 Completed [facility] Polio (IPV/OPV) 1998 00:00:00 Completed [facility] DTAP 1998 00:00:00 Completed [facility] HIB 4 Dose Schedule 1998 00:00:00 Completed [facility] Polio (IPV/OPV) 1998 00:00:00 Completed [facility] DTAP 1998 00:00:00 Completed [facility] HIB 4 Dose Schedule 1998 00:00:00 Completed [facility] Polio (IPV/OPV) 1998 00:00:00 Completed [facility] DTAP 1998 00:00:00 Completed [facility] HIB 4 Dose Schedule 1998 00:00:00 Completed [facility] Polio (IPV/OPV) 1998 00:00:00 Completed [facility] DTAP 1998 00:00:00 Completed [facility] HIB 4 Dose Schedule 1998 00:00:00 Completed [facility] Polio (IPV/OPV) 1998 00:00:00 Completed [facility] DTAP 1998 00:00:00 Completed [facility] HIB 4 Dose Schedule 1998 00:00:00 Completed [facility] Polio (IPV/OPV) 1998 00:00:00 Completed [facility] DTAP 1998 00:00:00 Completed [facility] HIB 4 Dose Schedule 1998 00:00:00 Completed [facility] Polio (IPV/OPV) 1998 00:00:00 Completed [facility] DTAP 1998 00:00:00 Completed [facility] HIB 4 Dose Schedule 1998 00:00:00 Completed [facility] Polio (IPV/OPV) 1998 00:00:00 Completed [facility] DTAP 1998 00:00:00 Completed [facility] HIB 4 Dose Schedule 1998 00:00:00 Completed [facility] Polio (IPV/OPV) 1998 00:00:00 Completed [facility] DTAP 1998 00:00:00 Completed [facility] HIB 4 Dose Schedule 1998 00:00:00 Completed [facility] Polio (IPV/OPV) 1998 00:00:00 Completed [facility] DTAP 1998 00:00:00 Completed [facility] HIB 4 Dose Schedule 1998 00:00:00 Completed [facility] Polio (IPV/OPV) 1998 00:00:00 Completed [facility] DTAP 1998 00:00:00 Completed [facility] HIB 4 Dose Schedule 1998 00:00:00 Completed [facility] Polio (IPV/OPV) 1998 00:00:00 Completed [facility] DTAP 1998 00:00:00 Completed [facility] HIB 4 Dose Schedule 1998 00:00:00 Completed [facility] Polio (IPV/OPV) 1998 00:00:00 Completed [facility] DTAP 1998 00:00:00 Completed [facility] HIB 4 Dose Schedule 1998 00:00:00 Completed [facility] Polio (IPV/OPV) 1998 00:00:00 Completed [facility] DTAP 1998 00:00:00 Completed [facility] HIB 4 Dose Schedule 1998 00:00:00 Completed [facility] Polio (IPV/OPV) 1998 00:00:00 Completed [facility] DTAP 1998 00:00:00 Completed [facility] HIB 4 Dose Schedule 1998 00:00:00 Completed [facility] Polio (IPV/OPV) 1998 00:00:00 Completed [facility] DTAP 1998 00:00:00 Completed [facility] HIB 4 Dose Schedule 1998 00:00:00 Completed [facility] Polio (IPV/OPV) 1998 00:00:00 Completed [facility] DTAP 1998 00:00:00 Completed [facility] HIB 4 Dose Schedule 1998 00:00:00 Completed [facility] Polio (IPV/OPV) 1998 00:00:00 Completed [facility] DTAP 1998 00:00:00 Completed [facility] HIB 4 Dose Schedule 1998 00:00:00 Completed [facility] Polio (IPV/OPV) 1998 00:00:00 Completed [facility] DTAP 1998 00:00:00 Completed [facility] HIB 4 Dose Schedule 1998 00:00:00 Completed [facility] Polio (IPV/OPV) 1998 00:00:00 Completed [facility] DTAP 1998 00:00:00 Completed [facility] HIB 4 Dose Schedule 1998 00:00:00 Completed [facility] Polio (IPV/OPV) 1998 00:00:00 Completed [facility] DTAP 1998 00:00:00 Completed [facility] HIB 4 Dose Schedule 1998 00:00:00 Completed [facility] Polio (IPV/OPV) 1998 00:00:00 Completed [facility] DTAP 1998 00:00:00 Completed [facility] HIB 4 Dose Schedule 1998 00:00:00 Completed [facility] Polio (IPV/OPV) 1998 00:00:00 Completed [facility] DTAP 1998 00:00:00 Completed [facility] HIB 4 Dose Schedule 1998 00:00:00 Completed [facility] Polio (IPV/OPV) 1998 00:00:00 Completed [facility] DTAP 1998 00:00:00 Completed [facility] HIB 4 Dose Schedule 1998 00:00:00 Completed [facility] Polio (IPV/OPV) 1998 00:00:00 Completed [facility] DTAP 1998 00:00:00 Completed HIB 4 Dose Schedule 1998 00:00:00 Completed Polio (IPV/OPV) 1998 00:00:00 Completed Hep B, Adol or Pedi Dosage 1998 00:00:00 Completed [facility] Hep B, Adol or Pedi Dosage 1998 00:00:00 Completed [facility] Hep B, Adol or Pedi Dosage 1998 00:00:00 Completed [facility] Hep B, Adol or Pedi Dosage 1998 00:00:00 Completed [facility] Hep B, Adol or Pedi Dosage 1998 00:00:00 Completed [facility] Hep B, Adol or Pedi Dosage 1998 00:00:00 Completed [facility] Hep B, Adol or Pedi Dosage 1998 00:00:00 Completed [facility] Hep B, Adol or Pedi Dosage 1998 00:00:00 Completed [facility] Hep B, Adol or Pedi Dosage 1998 00:00:00 Completed [facility] Hep B, Adol or Pedi Dosage 1998 00:00:00 Completed [facility] Hep B, Adol or Pedi Dosage 1998 00:00:00 Completed [facility] Hep B, Adol or Pedi Dosage 1998 00:00:00 Completed [facility] Hep B, Adol or Pedi Dosage 1998 00:00:00 Completed [facility] Hep B, Adol or Pedi Dosage 1998 00:00:00 Completed [facility] Hep B, Adol or Pedi Dosage 1998 00:00:00 Completed [facility] Hep B, Adol or Pedi Dosage 1998 00:00:00 Completed [facility] Hep B, Adol or Pedi Dosage 1998 00:00:00 Completed [facility] Hep B, Adol or Pedi Dosage 1998 00:00:00 Completed [facility] Hep B, Adol or Pedi Dosage 1998 00:00:00 Completed [facility] Hep B, Adol or Pedi Dosage 1998 00:00:00 Completed [facility] Hep B, Adol or Pedi Dosage 1998 00:00:00 Completed [facility] Hep B, Adol or Pedi Dosage 1998 00:00:00 Completed [facility] Hep B, Adol or Pedi Dosage 1998 00:00:00 Completed [facility] Hep B, Adol or Pedi Dosage 1998 00:00:00 Completed [facility] Hep B, Adol or Pedi Dosage 1998 00:00:00 Completed [facility] Hep B, Adol or Pedi Dosage 1998 00:00:00 Completed [facility] Hep B, Adol or Pedi Dosage 1998 00:00:00 Completed [facility] Hep B, Adol or Pedi Dosage 1998 00:00:00 Completed [facility] Hep B, Adol or Pedi Dosage 1998 00:00:00 Completed [facility] Hep B, Adol or Pedi Dosage 1998 00:00:00 Completed [facility] Hep B, Adol or Pedi Dosage 1998 00:00:00 Completed [facility] Hep B, Adol or Pedi Dosage 1998 00:00:00 Completed [facility] Hep B, Adol or Pedi Dosage 1998 00:00:00 Completed [facility] Hep B, Adol or Pedi Dosage 1998 00:00:00 Completed [facility] Hep B, Adol or Pedi Dosage 1998 00:00:00 Completed [facility] Hep B, Adol or Pedi Dosage 1998 00:00:00 Completed [facility] Hep B, Adol or Pedi Dosage 1998 00:00:00 Completed [facility] Hep B, Adol or Pedi Dosage 1998 00:00:00 Completed [facility] Hep B, Adol or Pedi Dosage 1998 00:00:00 Completed [facility] Hep B, Adol or Pedi Dosage 1998 00:00:00 Completed [facility] Hep B, Adol or Pedi Dosage 1998 00:00:00 Completed [facility] Hep B, Adol or Pedi Dosage 1998 00:00:00 Completed [facility] Hep B, Adol or Pedi Dosage 1998 00:00:00 Completed [facility] Hep B, Adol or Pedi Dosage 1998 00:00:00 Completed [facility] Hep B, Adol or Pedi Dosage 1998 00:00:00 Completed [facility] Hep B, Adol or Pedi Dosage 1998 00:00:00 Completed [facility] Hep B, Adol or Pedi Dosage 1998 00:00:00 Completed [facility] Hep B, Adol or Pedi Dosage 1998 00:00:00 Completed [facility] Hep B, Adol or Pedi Dosage 1998 00:00:00 Completed [facility] Hep B, Adol or Pedi Dosage 1998 00:00:00 Completed [facility] Hep B, Adol or Pedi Dosage 1998 00:00:00 Completed [facility] Hep B, Adol or Pedi Dosage 1998 00:00:00 Completed [facility] Hep B, Adol or Pedi Dosage 1998 00:00:00 Completed [facility] Hep B, Adol or Pedi Dosage 1998 00:00:00 Completed [facility] Hep B, Adol or Pedi Dosage 1998 00:00:00 Completed [facility] Hep B, Adol or Pedi Dosage 1998 00:00:00 Completed [facility] Hep B, Adol or Pedi Dosage 1998 00:00:00 Completed [facility] Hep B, Adol or Pedi Dosage 1998 00:00:00 Completed [facility] Hep B, Adol or Pedi Dosage 1998 00:00:00 Completed [facility] Hep B, Adol or Pedi Dosage 1998 00:00:00 Completed [facility] Hep B, Adol or Pedi Dosage 1998 00:00:00 Completed [facility] Hep B, Adol or Pedi Dosage 1998 00:00:00 Completed [facility] Hep B, Adol or Pedi Dosage 1998 00:00:00 Completed [facility] Hep B, Adol or Pedi Dosage 1998 00:00:00 Completed [facility] Hep B, Adol or Pedi Dosage 1998 00:00:00 Completed [facility] Hep B, Adol or Pedi Dosage 1998 00:00:00 Completed [facility] Hep B, Adol or Pedi Dosage 1998 00:00:00 Completed [facility] Hep B, Adol or Pedi Dosage 1998 00:00:00 Completed [facility] Hep B, Adol or Pedi Dosage 1998 00:00:00 Completed [facility] Hep B, Adol or Pedi Dosage 1998 00:00:00 Completed [facility] Hep B, Adol or Pedi Dosage 1998 00:00:00 Completed [facility] Hep B, Adol or Pedi Dosage 1998 00:00:00 Completed [facility] Hep B, Adol or Pedi Dosage 1998 00:00:00 Completed [facility] Hep B, Adol or Pedi Dosage 1998 00:00:00 Completed [facility] Hep B, Adol or Pedi Dosage 1998 00:00:00 Completed [facility] Hep B, Adol or Pedi Dosage 1998 00:00:00 Completed [facility] Hep B, Adol or Pedi Dosage 1998 00:00:00 Completed [facility] Hep B, Adol or Pedi Dosage 1998 00:00:00 Completed [facility] Hep B, Adol or Pedi Dosage 1998 00:00:00 Completed [facility] Hep B, Adol or Pedi Dosage 1998 00:00:00 Completed [facility] Hep B, Adol or Pedi Dosage 1998 00:00:00 Completed [facility] Hep B, Adol or Pedi Dosage 1998 00:00:00 Completed [facility] Hep B, Adol or Pedi Dosage 1998 00:00:00 Completed Hep B, Adol or Pedi Dosage 1998 00:00:00 Completed [facility] Hep B, Adol or Pedi Dosage 1998 00:00:00 Completed [facility] Hep B, Adol or Pedi Dosage 1998 00:00:00 Completed [facility] Hep B, Adol or Pedi Dosage 1998 00:00:00 Completed [facility] Hep B, Adol or Pedi Dosage 1998 00:00:00 Completed [facility] Hep B, Adol or Pedi Dosage 1998 00:00:00 Completed [facility] Hep B, Adol or Pedi Dosage 1998 00:00:00 Completed [facility] Hep B, Adol or Pedi Dosage 1998 00:00:00 Completed [facility] Hep B, Adol or Pedi Dosage 1998 00:00:00 Completed [facility] Hep B, Adol or Pedi Dosage 1998 00:00:00 Completed [facility] Hep B, Adol or Pedi Dosage 1998 00:00:00 Completed [facility] Hep B, Adol or Pedi Dosage 1998 00:00:00 Completed [facility] Hep B, Adol or Pedi Dosage 1998 00:00:00 Completed [facility] Hep B, Adol or Pedi Dosage 1998 00:00:00 Completed [facility] Hep B, Adol or Pedi Dosage 1998 00:00:00 Completed [facility] Hep B, Adol or Pedi Dosage 1998 00:00:00 Completed [facility] Hep B, Adol or Pedi Dosage 1998 00:00:00 Completed [facility] Hep B, Adol or Pedi Dosage 1998 00:00:00 Completed [facility] Hep B, Adol or Pedi Dosage 1998 00:00:00 Completed [facility] Hep B, Adol or Pedi Dosage 1998 00:00:00 Completed [facility] Hep B, Adol or Pedi Dosage 1998 00:00:00 Completed [facility] Hep B, Adol or Pedi Dosage 1998 00:00:00 Completed [facility] Hep B, Adol or Pedi Dosage 1998 00:00:00 Completed [facility] Hep B, Adol or Pedi Dosage 1998 00:00:00 Completed [facility] Hep B, Adol or Pedi Dosage 1998 00:00:00 Completed [facility] Hep B, Adol or Pedi Dosage 1998 00:00:00 Completed [facility] Hep B, Adol or Pedi Dosage 1998 00:00:00 Completed [facility] Hep B, Adol or Pedi Dosage 1998 00:00:00 Completed [facility] Hep B, Adol or Pedi Dosage 1998 00:00:00 Completed [facility] Hep B, Adol or Pedi Dosage 1998 00:00:00 Completed [facility] Hep B, Adol or Pedi Dosage 1998 00:00:00 Completed [facility] Hep B, Adol or Pedi Dosage 1998 00:00:00 Completed [facility] Hep B, Adol or Pedi Dosage 1998 00:00:00 Completed [facility] Hep B, Adol or Pedi Dosage 1998 00:00:00 Completed [facility] Hep B, Adol or Pedi Dosage 1998 00:00:00 Completed [facility] Hep B, Adol or Pedi Dosage 1998 00:00:00 Completed [facility] Hep B, Adol or Pedi Dosage 1998 00:00:00 Completed [facility] Hep B, Adol or Pedi Dosage 1998 00:00:00 Completed [facility] Hep B, Adol or Pedi Dosage 1998 00:00:00 Completed [facility] Hep B, Adol or Pedi Dosage 1998 00:00:00 Completed [facility] Hep B, Adol or Pedi Dosage 1998 00:00:00 Completed [facility] Hep B, Adol or Pedi Dosage 1998 00:00:00 Completed [facility] Hep B, Adol or Pedi Dosage 1998 00:00:00 Completed [facility] Hep B, Adol or Pedi Dosage 1998 00:00:00 Completed [facility] Hep B, Adol or Pedi Dosage 1998 00:00:00 Completed [facility] Hep B, Adol or Pedi Dosage 1998 00:00:00 Completed [facility] Hep B, Adol or Pedi Dosage 1998 00:00:00 Completed [facility] Hep B, Adol or Pedi Dosage 1998 00:00:00 Completed [facility] Hep B, Adol or Pedi Dosage 1998 00:00:00 Completed [facility] Hep B, Adol or Pedi Dosage 1998 00:00:00 Completed [facility] Hep B, Adol or Pedi Dosage 1998 00:00:00 Completed [facility] Hep B, Adol or Pedi Dosage 1998 00:00:00 Completed [facility] Hep B, Adol or Pedi Dosage 1998 00:00:00 Completed [facility] Hep B, Adol or Pedi Dosage 1998 00:00:00 Completed [facility] Hep B, Adol or Pedi Dosage 1998 00:00:00 Completed [facility] Hep B, Adol or Pedi Dosage 1998 00:00:00 Completed [facility] Hep B, Adol or Pedi Dosage 1998 00:00:00 Completed [facility] Hep B, Adol or Pedi Dosage 1998 00:00:00 Completed [facility] Hep B, Adol or Pedi Dosage 1998 00:00:00 Completed [facility] Hep B, Adol or Pedi Dosage 1998 00:00:00 Completed [facility] Hep B, Adol or Pedi Dosage 1998 00:00:00 Completed [facility] Hep B, Adol or Pedi Dosage 1998 00:00:00 Completed [facility] Hep B, Adol or Pedi Dosage 1998 00:00:00 Completed [facility] Hep B, Adol or Pedi Dosage 1998 00:00:00 Completed [facility] Hep B, Adol or Pedi Dosage 1998 00:00:00 Completed [facility] Hep B, Adol or Pedi Dosage 1998 00:00:00 Completed [facility] Hep B, Adol or Pedi Dosage 1998 00:00:00 Completed [facility] Hep B, Adol or Pedi Dosage 1998 00:00:00 Completed [facility] Hep B, Adol or Pedi Dosage 1998 00:00:00 Completed [facility] Hep B, Adol or Pedi Dosage 1998 00:00:00 Completed [facility] Hep B, Adol or Pedi Dosage 1998 00:00:00 Completed [facility] Hep B, Adol or Pedi Dosage 1998 00:00:00 Completed [facility] Hep B, Adol or Pedi Dosage 1998 00:00:00 Completed [facility] Hep B, Adol or Pedi Dosage 1998 00:00:00 Completed [facility] Hep B, Adol or Pedi Dosage 1998 00:00:00 Completed [facility] Hep B, Adol or Pedi Dosage 1998 00:00:00 Completed [facility] Hep B, Adol or Pedi Dosage 1998 00:00:00 Completed [facility] Hep B, Adol or Pedi Dosage 1998 00:00:00 Completed [facility] Hep B, Adol or Pedi Dosage 1998 00:00:00 Completed [facility] Hep B, Adol or Pedi Dosage 1998 00:00:00 Completed [facility] Hep B, Adol or Pedi Dosage 1998 00:00:00 Completed [facility] Hep B, Adol or Pedi Dosage 1998 00:00:00 Completed [facility] Hep B, Adol or Pedi Dosage 1998 00:00:00 Completed Hep B, Adol or Pedi Dosage 1998 00:00:00 Completed [facility] Hep B, Adol or Pedi Dosage 1998 00:00:00 Completed [facility] Hep B, Adol or Pedi Dosage 1998 00:00:00 Completed [facility] Hep B, Adol or Pedi Dosage 1998 00:00:00 Completed [facility] Hep B, Adol or Pedi Dosage 1998 00:00:00 Completed [facility] Hep B, Adol or Pedi Dosage 1998 00:00:00 Completed [facility] Hep B, Adol or Pedi Dosage 1998 00:00:00 Completed [facility] Hep B, Adol or Pedi Dosage 1998 00:00:00 Completed [facility] Hep B, Adol or Pedi Dosage 1998 00:00:00 Completed [facility] Hep B, Adol or Pedi Dosage 1998 00:00:00 Completed [facility] Hep B, Adol or Pedi Dosage 1998 00:00:00 Completed [facility] Hep B, Adol or Pedi Dosage 1998 00:00:00 Completed [facility] Hep B, Adol or Pedi Dosage 1998 00:00:00 Completed [facility] Hep B, Adol or Pedi Dosage 1998 00:00:00 Completed [facility] Hep B, Adol or Pedi Dosage 1998 00:00:00 Completed [facility] Hep B, Adol or Pedi Dosage 1998 00:00:00 Completed [facility] Hep B, Adol or Pedi Dosage 1998 00:00:00 Completed [facility] Hep B, Adol or Pedi Dosage 1998 00:00:00 Completed [facility] Hep B, Adol or Pedi Dosage 1998 00:00:00 Completed [facility] Hep B, Adol or Pedi Dosage 1998 00:00:00 Completed [facility] Hep B, Adol or Pedi Dosage 1998 00:00:00 Completed [facility] Hep B, Adol or Pedi Dosage 1998 00:00:00 Completed [facility] Hep B, Adol or Pedi Dosage 1998 00:00:00 Completed [facility] Hep B, Adol or Pedi Dosage 1998 00:00:00 Completed [facility] Hep B, Adol or Pedi Dosage 1998 00:00:00 Completed [facility] Hep B, Adol or Pedi Dosage 1998 00:00:00 Completed [facility] Hep B, Adol or Pedi Dosage 1998 00:00:00 Completed [facility] Hep B, Adol or Pedi Dosage 1998 00:00:00 Completed [facility] Hep B, Adol or Pedi Dosage 1998 00:00:00 Completed [facility] Hep B, Adol or Pedi Dosage 1998 00:00:00 Completed [facility] Hep B, Adol or Pedi Dosage 1998 00:00:00 Completed [facility] Hep B, Adol or Pedi Dosage 1998 00:00:00 Completed [facility] Hep B, Adol or Pedi Dosage 1998 00:00:00 Completed [facility] Hep B, Adol or Pedi Dosage 1998 00:00:00 Completed [facility] Hep B, Adol or Pedi Dosage 1998 00:00:00 Completed [facility] Hep B, Adol or Pedi Dosage 1998 00:00:00 Completed [facility] Hep B, Adol or Pedi Dosage 1998 00:00:00 Completed [facility] Hep B, Adol or Pedi Dosage 1998 00:00:00 Completed [facility] Hep B, Adol or Pedi Dosage 1998 00:00:00 Completed [facility] Hep B, Adol or Pedi Dosage 1998 00:00:00 Completed [facility] Hep B, Adol or Pedi Dosage 1998 00:00:00 Completed [facility] Hep B, Adol or Pedi Dosage 1998 00:00:00 Completed [facility] Hep B, Adol or Pedi Dosage 1998 00:00:00 Completed [facility] Hep B, Adol or Pedi Dosage 1998 00:00:00 Completed [facility] Hep B, Adol or Pedi Dosage 1998 00:00:00 Completed [facility] Hep B, Adol or Pedi Dosage 1998 00:00:00 Completed [facility] Hep B, Adol or Pedi Dosage 1998 00:00:00 Completed [facility] Hep B, Adol or Pedi Dosage 1998 00:00:00 Completed [facility] Hep B, Adol or Pedi Dosage 1998 00:00:00 Completed [facility] Hep B, Adol or Pedi Dosage 1998 00:00:00 Completed [facility] Hep B, Adol or Pedi Dosage 1998 00:00:00 Completed [facility] Hep B, Adol or Pedi Dosage 1998 00:00:00 Completed [facility] Hep B, Adol or Pedi Dosage 1998 00:00:00 Completed [facility] Hep B, Adol or Pedi Dosage 1998 00:00:00 Completed [facility] Hep B, Adol or Pedi Dosage 1998 00:00:00 Completed [facility] Hep B, Adol or Pedi Dosage 1998 00:00:00 Completed [facility] Hep B, Adol or Pedi Dosage 1998 00:00:00 Completed [facility] Hep B, Adol or Pedi Dosage 1998 00:00:00 Completed [facility] Hep B, Adol or Pedi Dosage 1998 00:00:00 Completed [facility] Hep B, Adol or Pedi Dosage 1998 00:00:00 Completed [facility] Hep B, Adol or Pedi Dosage 1998 00:00:00 Completed [facility] Hep B, Adol or Pedi Dosage 1998 00:00:00 Completed [facility] Hep B, Adol or Pedi Dosage 1998 00:00:00 Completed [facility] Hep B, Adol or Pedi Dosage 1998 00:00:00 Completed [facility] Hep B, Adol or Pedi Dosage 1998 00:00:00 Completed [facility] Hep B, Adol or Pedi Dosage 1998 00:00:00 Completed [facility] Hep B, Adol or Pedi Dosage 1998 00:00:00 Completed [facility] Hep B, Adol or Pedi Dosage 1998 00:00:00 Completed [facility] Hep B, Adol or Pedi Dosage 1998 00:00:00 Completed [facility] Hep B, Adol or Pedi Dosage 1998 00:00:00 Completed [facility] Hep B, Adol or Pedi Dosage 1998 00:00:00 Completed [facility] Hep B, Adol or Pedi Dosage 1998 00:00:00 Completed [facility] Hep B, Adol or Pedi Dosage 1998 00:00:00 Completed [facility] Hep B, Adol or Pedi Dosage 1998 00:00:00 Completed [facility] Hep B, Adol or Pedi Dosage 1998 00:00:00 Completed [facility] Hep B, Adol or Pedi Dosage 1998 00:00:00 Completed [facility] Hep B, Adol or Pedi Dosage 1998 00:00:00 Completed [facility] Hep B, Adol or Pedi Dosage 1998 00:00:00 Completed [facility] Hep B, Adol or Pedi Dosage 1998 00:00:00 Completed [facility] Hep B, Adol or Pedi Dosage 1998 00:00:00 Completed [facility] Hep B, Adol or Pedi Dosage 1998 00:00:00 Completed [facility] Hep B, Adol or Pedi Dosage 1998 00:00:00 Completed [facility] Vital Signs Vital Name Observation Time Observation Value Comments S ource Systolic blood pressure 2024-12-22 20:21:00 107 mm[Hg] [facility] Diastolic blood pressure 2024-12-22 20:21:00 70 mm[Hg] [facility] Heart rate 2024-12-22 20:21:00 89 /min [facility] Body temperature 2024-12-22 20:21:00 36.89 Bibi [facility] Body height 2024-12-22 20:21:00 162.6 cm [facility] Body weight 2024-12-22 20:21:00 66.679 kg [facility] BMI 2024-12-22 20:21:00 25.23 kg/m2 [facility] Oxygen saturation in Arterial blood by Pulse oximetry 2024-12-22 20:21:00 97 /min [facility] Systolic blood pressure 2024-12-07 21:05:00 106 mm[Hg] [facility] Diastolic blood pressure 2024-12-07 21:05:00 63 mm[Hg] [facility] Heart rate 2024-12-07 21:05:00 72 /min [facility] Body height 2024-12-07 21:05:00 162.6 cm pt stated height [facility] Body weight 2024-12-07 21:05:00 67.677 kg [facility] BMI 2024-12-07 21:05:00 25.61 kg/m2 [facility] Oxygen saturation in Arterial blood by Pulse oximetry 2024-12-07 21:05:00 97 /min [facility] Body height 2024-12-02 20:55:00 162.6 cm [facility] Body weight 2024-12-02 20:55:00 68.493 kg [facility] BMI 2024-12-02 20:55:00 25.92 kg/m2 [facility] Systolic blood pressure 2024-11-24 20:31:00 94 mm[Hg] [facility] Diastolic blood pressure 2024-11-24 20:31:00 64 mm[Hg] [facility] Heart rate 2024-11-24 20:31:00 87 /min [facility] Body temperature 2024-11-24 20:31:00 36.72 Bibi [facility] Body height 2024-11-24 20:31:00 162.6 cm [facility] Body weight 2024-11-24 20:31:00 68.947 kg [facility] BMI 2024-11-24 20:31:00 26.09 kg/m2 [facility] Systolic blood pressure 2024-10-25 18:29:00 100 mm[Hg] [facility] Diastolic blood pressure 2024-10-25 18:29:00 65 mm[Hg] [facility] Heart rate 2024-10-25 18:29:00 88 /min [facility] Body temperature 2024-10-25 18:29:00 36.44 Bibi [facility] Respiratory rate 2024-10-25 18:29:00 16 /min [facility] Body weight 2024-10-25 18:29:00 68.811 kg [facility] BMI 2024-10-25 18:29:00 26.04 kg/m2 [facility] Oxygen saturation in Arterial blood by Pulse oximetry 2024-10-25 18:29:00 97 /min [facility] Body height 2024-10-05 13:14:00 162.6 cm [facility] Body weight 2024-10-05 13:14:00 72.122 kg [facility] BMI 2024-10-05 13:14:00 27.29 kg/m2 [facility] Systolic blood pressure 2024-09-28 14:52:00 115 mm[Hg] [facility] Diastolic blood pressure 2024-09-28 14:52:00 83 mm[Hg] [facility] Heart rate 2024-09-28 14:52:00 75 /min [facility] Body temperature 2024-09-28 14:52:00 36.17 Bibi [facility] Respiratory rate 2024-09-28 14:52:00 16 /min [facility] Body weight 2024-09-28 14:52:00 71.85 kg [facility] BMI 2024-09-28 14:52:00 27.19 kg/m2 [facility] Oxygen saturation in Arterial blood by Pulse oximetry 2024-09-28 14:52:00 99 /min [facility] Systolic blood pressure 2024-09-16 20:53:00 123 mm[Hg] [facility] Diastolic blood pressure 2024-09-16 20:53:00 79 mm[Hg] [facility] Heart rate 2024-09-16 20:53:00 77 /min [facility] Body temperature 2024-09-16 20:53:00 36.11 Bibi [facility] Body height 2024-09-16 20:53:00 162.6 cm [facility] Body weight 2024-09-16 20:53:00 72.303 kg [facility] BMI 2024-09-16 20:53:00 27.36 kg/m2 [facility] Systolic blood pressure 2024-09-09 13:22:00 104 mm[Hg] [facility] Diastolic blood pressure 2024-09-09 13:22:00 76 mm[Hg] [facility] Heart rate 2024-09-09 13:22:00 60 /min [facility] Body temperature 2024-09-09 13:22:00 36.22 Bibi [facility] Body height 2024-09-09 13:22:00 162.6 cm [facility] Body weight 2024-09-09 13:22:00 72.938 kg [facility] BMI 2024-09-09 13:22:00 27.60 kg/m2 [facility] Oxygen saturation in Arterial blood by Pulse oximetry 2024-09-09 13:22:00 95 /min [facility] Systolic blood pressure 2024-08-24 14:40:00 112 mm[Hg] [facility] Diastolic blood pressure 2024-08-24 14:40:00 74 mm[Hg] [facility] Heart rate 2024-08-24 14:40:00 74 /min [facility] Oxygen saturation in Arterial blood by Pulse oximetry 2024-08-24 14:40:00 99 /min [facility] Respiratory rate 2024-08-24 14:35:00 22 /min [facility] Body temperature 2024-08-24 13:44:00 36.28 Bibi [facility] Body height 2024-08-24 11:53:00 162.6 cm [facility] Body weight 2024-08-24 11:53:00 73.483 kg [facility] BMI 2024-08-24 11:53:00 27.81 kg/m2 [facility] Systolic blood pressure 2024-08-24 13:45:00 120 mm[Hg] [facility] Diastolic blood pressure 2024-08-24 13:45:00 79 mm[Hg] [facility] Heart rate 2024-08-24 13:45:00 106 /min [facility] Respiratory rate 2024-08-24 13:45:00 31 /min [facility] Oxygen saturation in Arterial blood by Pulse oximetry 2024-08-24 13:45:00 100 /min [facility] Body temperature 2024-08-24 13:44:00 36.28 Bibi [facility] Body height 2024-08-24 11:53:00 162.6 cm [facility] Body weight 2024-08-24 11:53:00 73.483 kg [facility] BMI 2024-08-24 11:53:00 27.81 kg/m2 [facility] Systolic blood pressure 2024-08-19 18:09:00 108 mm[Hg] [facility] Diastolic blood pressure 2024-08-19 18:09:00 74 mm[Hg] [facility] Heart rate 2024-08-19 18:09:00 77 /min [facility] Respiratory rate 2024-08-19 18:09:00 16 /min [facility] Body height 2024-08-19 18:09:00 162.6 cm [facility] Body weight 2024-08-19 18:09:00 72.576 kg [facility] BMI 2024-08-19 18:09:00 27.46 kg/m2 [facility] Oxygen saturation in Arterial blood by Pulse oximetry 2024-08-19 18:09:00 96 /min [facility] Systolic blood pressure 2024-08-18 19:42:00 112 mm[Hg] [facility] Diastolic blood pressure 2024-08-18 19:42:00 70 mm[Hg] [facility] Heart rate 2024-08-18 19:42:00 84 /min [facility] Body temperature 2024-08-18 19:42:00 36.22 Bibi [facility] Body height 2024-08-18 19:42:00 162.6 cm [facility] Body weight 2024-08-18 19:42:00 72.576 kg [facility] BMI 2024-08-18 19:42:00 27.46 kg/m2 [facility] Systolic blood pressure 2024-08-16 18:08:00 112 mm[Hg] [facility] Diastolic blood pressure 2024-08-16 18:08:00 72 mm[Hg] [facility] Heart rate 2024-08-16 18:08:00 80 /min [facility] Body temperature 2024-08-16 18:08:00 36.78 Bibi [facility] Body height 2024-08-16 18:08:00 162.6 cm [facility] Body weight 2024-08-16 18:08:00 73.846 kg [facility] BMI 2024-08-16 18:08:00 27.94 kg/m2 [facility] Body weight 2024-07-26 20:05:00 83.462 kg [facility] BMI 2024-07-26 20:05:00 31.58 kg/m2 [facility] Systolic blood pressure 2024-07-20 14:10:00 126 mm[Hg] [facility] Diastolic blood pressure 2024-07-20 14:10:00 81 mm[Hg] [facility] Heart rate 2024-07-20 14:10:00 74 /min [facility] Body temperature 2024-07-20 14:10:00 36.56 Bibi [facility] Respiratory rate 2024-07-20 14:10:00 18 /min [facility] Body height 2024-07-20 14:10:00 162.6 cm [facility] Body weight 2024-07-20 14:10:00 83.462 kg [facility] BMI 2024-07-20 14:10:00 31.58 kg/m2 [facility] Oxygen saturation in Arterial blood by Pulse oximetry 2024-07-20 14:10:00 100 /min [facility] Systolic blood pressure 2024-07-14 12:53:00 111 mm[Hg] [facility] Diastolic blood pressure 2024-07-14 12:53:00 72 mm[Hg] [facility] Heart rate 2024-07-14 12:53:00 74 /min [facility] Body temperature 2024-07-14 12:53:00 37.28 Bibi [facility] Respiratory rate 2024-07-14 12:53:00 18 /min [facility] Oxygen saturation in Arterial blood by Pulse oximetry 2024-07-14 12:53:00 97 /min [facility] Body height 2024-07-12 14:47:00 162.6 cm [facility] Body weight 2024-07-12 14:47:00 83.462 kg [facility] BMI 2024-07-12 14:47:00 31.58 kg/m2 [facility] Systolic blood pressure 2024-07-08 20:46:00 115 mm[Hg] [facility] Diastolic blood pressure 2024-07-08 20:46:00 80 mm[Hg] [facility] Heart rate 2024-07-08 20:46:00 104 /min [facility] Body temperature 2024-07-08 20:46:00 36.56 Bibi [facility] Body height 2024-07-08 20:46:00 162.6 cm [facility] Body weight 2024-07-08 20:46:00 84.641 kg [facility] BMI 2024-07-08 20:46:00 32.03 kg/m2 [facility] Systolic blood pressure 2024-07-05 20:00:00 103 mm[Hg] [facility] Diastolic blood pressure 2024-07-05 20:00:00 70 mm[Hg] [facility] Heart rate 2024-07-05 20:00:00 110 /min [facility] Body temperature 2024-07-05 20:00:00 36.67 Bibi [facility] Body height 2024-07-05 20:00:00 162.6 cm [facility] Body weight 2024-07-05 20:00:00 84.369 kg [facility] BMI 2024-07-05 20:00:00 31.93 kg/m2 [facility] Systolic blood pressure 2024-06-30 20:31:00 120 mm[Hg] [facility] Diastolic blood pressure 2024-06-30 20:31:00 80 mm[Hg] [facility] Heart rate 2024-06-30 20:31:00 90 /min [facility] Body temperature 2024-06-30 20:31:00 36.44 Bibi [facility] Respiratory rate 2024-06-30 20:31:00 18 /min [facility] Body height 2024-06-30 20:31:00 162.6 cm [facility] Body weight 2024-06-30 20:31:00 84.097 kg [facility] BMI 2024-06-30 20:31:00 31.82 kg/m2 [facility] Systolic blood pressure 2024-06-28 20:29:00 121 mm[Hg] [facility] Diastolic blood pressure 2024-06-28 20:29:00 76 mm[Hg] [facility] Heart rate 2024-06-28 20:29:00 99 /min [facility] Respiratory rate 2024-06-28 20:29:00 18 /min [facility] Body height 2024-06-28 20:29:00 162.6 cm [facility] Body weight 2024-06-28 20:29:00 82.555 kg [facility] BMI 2024-06-28 20:29:00 31.24 kg/m2 [facility] Systolic blood pressure 2024-06-10 21:21:00 121 mm[Hg] [facility] Diastolic blood pressure 2024-06-10 21:21:00 73 mm[Hg] [facility] Heart rate 2024-06-10 21:21:00 92 /min [facility] [facility] Body temperature 2024-06-10 21:21:00 36.78 Bibi [facility] Respiratory rate 2024-06-10 21:21:00 18 /min [facility] Body height 2024-06-10 21:21:00 162.6 cm [facility] Body weight 2024-06-10 21:21:00 79.924 kg [facility] BMI 2024-06-10 21:21:00 30.24 kg/m2 [facility] Systolic blood pressure 2024-06-02 21:34:00 114 mm[Hg] [facility] Diastolic blood pressure 2024-06-02 21:34:00 78 mm[Hg] [facility] Heart rate 2024-06-02 21:34:00 109 /min [facility] Body temperature 2024-06-02 21:34:00 36.89 Bibi [facility] Respiratory rate 2024-06-02 21:34:00 18 /min [facility] Body height 2024-06-02 21:34:00 162.6 cm [facility] Body weight 2024-06-02 21:34:00 80.377 kg [facility] BMI 2024-06-02 21:34:00 30.42 kg/m2 [facility] Systolic blood pressure 2024-05-06 00:15:00 107 mm[Hg] [facility] Diastolic blood pressure 2024-05-06 00:15:00 69 mm[Hg] [facility] Heart rate 2024-05-06 00:15:00 81 /min [facility] Oxygen saturation in Arterial blood by Pulse oximetry 2024-05-06 00:15:00 99 /min [facility] Body temperature 2024-05-05 22:10:00 36.78 Bibi [facility] Respiratory rate 2024-05-05 22:10:00 14 /min [facility] Body height 2024-05-05 22:10:00 162.6 cm [facility] Body weight 2024-05-05 22:10:00 78.654 kg [facility] BMI 2024-05-05 22:10:00 29.76 kg/m2 [facility] Systolic blood pressure 2024-03-22 19:40:00 117 mm[Hg] [facility] Diastolic blood pressure 2024-03-22 19:40:00 67 mm[Hg] [facility] Heart rate 2024-03-22 19:40:00 100 /min [facility] Body temperature 2024-03-22 19:40:00 37.06 Bibi [facility] Respiratory rate 2024-03-22 19:40:00 18 /min [facility] Oxygen saturation in Arterial blood by Pulse oximetry 2024-03-22 19:40:00 98 /min [facility] Body height 2024-03-22 18:13:00 162.6 cm [facility] Body weight 2024-03-22 18:13:00 74.39 kg [facility] BMI 2024-03-22 18:13:00 28.15 kg/m2 [facility] Body weight 2024-03-15 20:59:00 73.029 kg [facility] BMI 2024-03-15 20:59:00 27.64 kg/m2 [facility] Systolic blood pressure 2024-03-02 14:18:00 97 mm[Hg] [facility] Diastolic blood pressure 2024-03-02 14:18:00 61 mm[Hg] [facility] Heart rate 2024-03-02 14:18:00 84 /min [facility] Body temperature 2024-03-02 14:18:00 36.39 Bibi [facility] Respiratory rate 2024-03-02 14:18:00 18 /min [facility] Body height 2024-03-02 14:18:00 162.6 cm [facility] Body weight 2024-03-02 14:18:00 73.392 kg [facility] BMI 2024-03-02 14:18:00 27.77 kg/m2 [facility] Systolic blood pressure 2024-02-02 20:15:00 102 mm[Hg] [facility] Diastolic blood pressure 2024-02-02 20:15:00 71 mm[Hg] [facility] Heart rate 2024-02-02 20:15:00 94 /min [facility] Body temperature 2024-02-02 20:15:00 36.89 Bibi [facility] Body height 2024-02-02 20:15:00 162.6 cm [facility] Body weight 2024-02-02 20:15:00 69.4 kg [facility] BMI 2024-02-02 20:15:00 26.26 kg/m2 [facility] Systolic blood pressure 2024-01-23 20:09:00 109 mm[Hg] [facility] Diastolic blood pressure 2024-01-23 20:09:00 74 mm[Hg] [facility] Heart rate 2024-01-23 20:09:00 85 /min [facility] Body weight 2024-01-23 20:09:00 68.811 kg [facility] BMI 2024-01-23 20:09:00 26.04 kg/m2 [facility] Body height 2024-01-08 20:58:00 162.6 cm [facility] Body weight 2024-01-08 20:58:00 65.772 kg [facility] BMI 2024-01-08 20:58:00 24.89 kg/m2 [facility] Systolic blood pressure 2024-01-05 19:38:00 126 mm[Hg] [facility] Diastolic blood pressure 2024-01-05 19:38:00 83 mm[Hg] [facility] Heart rate 2024-01-05 19:38:00 103 /min [facility] Body temperature 2024-01-05 19:38:00 37 Bibi [facility] Body height 2024-01-05 19:38:00 162.6 cm [facility] Body weight 2024-01-05 19:38:00 67.405 kg [facility] BMI 2024-01-05 19:38:00 25.51 kg/m2 [facility] Body height 2023-09-18 20:22:00 162.6 cm [facility] Body weight 2023-09-18 20:22:00 63.957 kg [facility] BMI 2023-09-18 20:22:00 24.20 kg/m2 [facility] Systolic blood pressure 2023-09-16 13:24:00 109 mm[Hg] [facility] Diastolic blood pressure 2023-09-16 13:24:00 69 mm[Hg] [facility] Heart rate 2023-09-16 13:24:00 81 /min [facility] Body temperature 2023-09-16 13:24:00 35.83 Bibi [facility] Respiratory rate 2023-09-16 13:24:00 18 /min [facility] Body height 2023-09-16 13:24:00 162.6 cm [facility] Body weight 2023-09-16 13:24:00 63.549 kg [facility] BMI 2023-09-16 13:24:00 24.05 kg/m2 [facility] Systolic blood pressure 2023-09-09 14:19:00 98 mm[Hg] [facility] Diastolic blood pressure 2023-09-09 14:19:00 68 mm[Hg] [facility] Heart rate 2023-09-09 14:19:00 90 /min [facility] Respiratory rate 2023-09-09 14:19:00 18 /min [facility] Body height 2023-09-09 14:19:00 162.6 cm [facility] Body weight 2023-09-09 14:19:00 64.003 kg [facility] BMI 2023-09-09 14:19:00 24.22 kg/m2 [facility] Oxygen saturation in Arterial blood by Pulse oximetry 2023-09-09 14:19:00 97 /min [facility] Systolic blood pressure 2023-09-02 20:03:00 120 mm[Hg] [facility] Diastolic blood pressure 2023-09-02 20:03:00 85 mm[Hg] [facility] Heart rate 2023-09-02 20:03:00 89 /min [facility] Body temperature 2023-09-02 20:03:00 36.5 Bibi [facility] Respiratory rate 2023-09-02 20:03:00 18 /min [facility] Body weight 2023-09-02 20:03:00 61.236 kg [facility] BMI 2023-09-02 20:03:00 23.17 kg/m2 [facility] Oxygen saturation in Arterial blood by Pulse oximetry 2023-09-02 20:03:00 98 /min [facility] Systolic blood pressure 2023-08-29 14:09:00 116 mm[Hg] [facility] Diastolic blood pressure 2023-08-29 14:09:00 81 mm[Hg] [facility] Heart rate 2023-08-29 14:09:00 103 /min [facility] Body temperature 2023-08-29 14:09:00 36.28 Bibi [facility] Respiratory rate 2023-08-29 14:09:00 18 /min [facility] Body height 2023-08-29 14:09:00 162.6 cm [facility] Body weight 2023-08-29 14:09:00 64.048 kg [facility] BMI 2023-08-29 14:09:00 24.24 kg/m2 [facility] Oxygen saturation in Arterial blood by Pulse oximetry 2023-08-29 14:09:00 99 /min r/a [facility] Systolic blood pressure 2023-08-20 18:13:00 117 mm[Hg] [facility] Diastolic blood pressure 2023-08-20 18:13:00 72 mm[Hg] [facility] Heart rate 2023-08-20 18:13:00 92 /min [facility] Body temperature 2023-08-20 18:13:00 36.44 Bibi [facility] Respiratory rate 2023-08-20 18:13:00 18 /min [facility] Body height 2023-08-20 18:13:00 162.6 cm [facility] Body weight 2023-08-20 18:13:00 61.78 kg [facility] BMI 2023-08-20 18:13:00 23.38 kg/m2 [facility] Oxygen saturation in Arterial blood by Pulse oximetry 2023-08-20 18:13:00 99 /min [facility] Body weight 2023-08-15 19:59:00 58.968 kg [facility] BMI 2023-08-15 19:59:00 22.31 kg/m2 [facility] Systolic blood pressure 2023-08-07 17:50:00 118 mm[Hg] [facility] Diastolic blood pressure 2023-08-07 17:50:00 84 mm[Hg] [facility] Heart rate 2023-08-07 17:50:00 87 /min [facility] Body height 2023-08-07 17:50:00 162.6 cm [facility] Body weight 2023-08-07 17:50:00 58.968 kg [facility] BMI 2023-08-07 17:50:00 22.31 kg/m2 [facility] Systolic blood pressure 2023-07-17 21:11:00 108 mm[Hg] [facility] Diastolic blood pressure 2023-07-17 21:11:00 74 mm[Hg] [facility] Heart rate 2023-07-17 21:11:00 84 /min [facility] Body temperature 2023-07-17 21:11:00 36.61 Bibi [facility] Respiratory rate 2023-07-17 21:11:00 16 /min [facility] Body height 2023-07-17 21:11:00 162.6 cm [facility] Body weight 2023-07-17 21:11:00 57.153 kg [facility] BMI 2023-07-17 21:11:00 21.63 kg/m2 [facility] Oxygen saturation in Arterial blood by Pulse oximetry 2023-07-17 21:11:00 99 /min [facility] Systolic blood pressure 2023-07-12 17:56:00 110 mm[Hg] [facility] Diastolic blood pressure 2023-07-12 17:56:00 75 mm[Hg] [facility] Heart rate 2023-07-12 17:56:00 90 /min [facility] Body temperature 2023-07-12 17:56:00 36.67 Bibi [facility] Respiratory rate 2023-07-12 17:56:00 20 /min [facility] Oxygen saturation in Arterial blood by Pulse oximetry 2023-07-12 17:56:00 98 /min [facility] Body height 2023-07-08 02:00:00 162.6 cm [facility] Body weight 2023-07-08 02:00:00 61.3 kg [facility] BMI 2023-07-08 02:00:00 23.19 kg/m2 [facility] Systolic blood pressure 2023-07-07 11:35:00 127 mm[Hg] [facility] Diastolic blood pressure 2023-07-07 11:35:00 77 mm[Hg] [facility] Heart rate 2023-07-07 11:35:00 74 /min [facility] Body temperature 2023-07-07 11:35:00 36.33 Bibi [facility] Respiratory rate 2023-07-07 11:35:00 18 /min [facility] Body height 2023-07-07 11:35:00 162.6 cm [facility] Body weight 2023-07-07 11:35:00 61.3 kg [facility] BMI 2023-07-07 11:35:00 23.19 kg/m2 [facility] Oxygen saturation in Arterial blood by Pulse oximetry 2023-07-07 11:35:00 100 /min [facility] Systolic blood pressure 2023-06-23 13:17:00 103 mm[Hg] [facility] Diastolic blood pressure 2023-06-23 13:17:00 71 mm[Hg] [facility] Heart rate 2023-06-23 13:17:00 84 /min [facility] Respiratory rate 2023-06-23 13:17:00 16 /min [facility] Body height 2023-06-23 13:17:00 162.6 cm [facility] Body weight 2023-06-23 13:17:00 59.875 kg [facility] BMI 2023-06-23 13:17:00 22.66 kg/m2 [facility] Oxygen saturation in Arterial blood by Pulse oximetry 2023-06-23 13:17:00 99 /min [facility] Systolic blood pressure 2023-05-21 22:06:00 121 mm[Hg] [facility] Diastolic blood pressure 2023-05-21 22:06:00 83 mm[Hg] [facility] Heart rate 2023-05-21 22:06:00 85 /min [facility] Body temperature 2023-05-21 22:06:00 36.11 Bibi [facility] Body height 2023-05-21 22:06:00 162.6 cm [facility] Body weight 2023-05-21 22:06:00 59.421 kg [facility] BMI 2023-05-21 22:06:00 22.49 kg/m2 [facility] Oxygen saturation in Arterial blood by Pulse oximetry 2023-05-21 22:06:00 99 /min [facility] Systolic blood pressure 2023-05-20 16:09:00 114 mm[Hg] [facility] Diastolic blood pressure 2023-05-20 16:09:00 78 mm[Hg] [facility] Heart rate 2023-05-20 16:09:00 89 /min [facility] Body height 2023-05-20 16:09:00 162.6 cm [facility] Body weight 2023-05-20 16:09:00 59.421 kg [facility] BMI 2023-05-20 16:09:00 22.49 kg/m2 [facility] Systolic blood pressure 2023-05-19 19:08:00 102 mm[Hg] [facility] Diastolic blood pressure 2023-05-19 19:08:00 69 mm[Hg] [facility] Heart rate 2023-05-19 19:08:00 95 /min [facility] Body temperature 2023-05-19 19:08:00 36.61 Bibi [facility] Respiratory rate 2023-05-19 19:08:00 18 /min [facility] Body height 2023-05-19 19:08:00 162.6 cm [facility] Body weight 2023-05-19 19:08:00 59.739 kg [facility] BMI 2023-05-19 19:08:00 22.61 kg/m2 [facility] Oxygen saturation in Arterial blood by Pulse oximetry 2023-05-19 19:08:00 99 /min [facility] Systolic blood pressure 2023-05-17 20:55:00 103 mm[Hg] [facility] Diastolic blood pressure 2023-05-17 20:55:00 68 mm[Hg] [facility] Heart rate 2023-05-17 20:55:00 106 /min [facility] Body temperature 2023-05-17 20:55:00 37.28 Bibi [facility] Respiratory rate 2023-05-17 20:55:00 15 /min [facility] Oxygen saturation in Arterial blood by Pulse oximetry 2023-05-17 20:55:00 96 /min [facility] Body height 2023-05-17 16:06:00 162.6 cm [facility] Body weight 2023-05-17 16:06:00 63.504 kg [facility] BMI 2023-05-17 16:06:00 24.03 kg/m2 [facility] Body height 2023-04-03 17:49:00 162.6 cm [facility] Body weight 2023-04-03 17:49:00 65.318 kg [facility] BMI 2023-04-03 17:49:00 24.72 kg/m2 [facility] Systolic blood pressure 2023-03-24 14:05:00 113 mm[Hg] [facility] Diastolic blood pressure 2023-03-24 14:05:00 79 mm[Hg] [facility] Heart rate 2023-03-24 14:05:00 69 /min [facility] Body temperature 2023-03-24 14:05:00 36.56 Bibi [facility] Body height 2023-03-24 14:05:00 162.6 cm [facility] Body weight 2023-03-24 14:05:00 66.679 kg [facility] BMI 2023-03-24 14:05:00 25.23 kg/m2 [facility] Oxygen saturation in Arterial blood by Pulse oximetry 2023-03-24 14:05:00 97 /min [facility] Systolic blood pressure 2023-03-19 21:41:00 110 mm[Hg] [facility] Diastolic blood pressure 2023-03-19 21:41:00 65 mm[Hg] [facility] Heart rate 2023-03-19 21:41:00 78 /min [facility] Respiratory rate 2023-03-19 21:41:00 18 /min [facility] Body height 2023-03-19 21:41:00 162.6 cm [facility] Body weight 2023-03-19 21:41:00 67.132 kg [facility] BMI 2023-03-19 21:41:00 25.40 kg/m2 [facility] Systolic blood pressure 2023-01-01 12:10:00 113 mm[Hg] [facility] Diastolic blood pressure 2023-01-01 12:10:00 75 mm[Hg] [facility] Heart rate 2023-01-01 12:10:00 66 /min [facility] Body temperature 2023-01-01 12:10:00 36.17 Bibi [facility] Respiratory rate 2023-01-01 12:10:00 18 /min [facility] Body height 2023-01-01 12:10:00 162.6 cm [facility] Body weight 2023-01-01 12:10:00 67.949 kg [facility] BMI 2023-01-01 12:10:00 25.71 kg/m2 [facility] Systolic blood pressure 2022-12-27 13:42:00 128 mm[Hg] [facility] Diastolic blood pressure 2022-12-27 13:42:00 77 mm[Hg] [facility] Heart rate 2022-12-27 13:42:00 80 /min [facility] Body temperature 2022-12-27 13:42:00 36.22 Bibi [facility] Respiratory rate 2022-12-27 13:42:00 16 /min [facility] Body height 2022-12-27 13:42:00 162.6 cm [facility] Body weight 2022-12-27 13:42:00 68.493 kg [facility] BMI 2022-12-27 13:42:00 25.92 kg/m2 [facility] Oxygen saturation in Arterial blood by Pulse oximetry 2022-12-27 13:42:00 92 /min [facility] Systolic blood pressure 2022-12-02 15:04:00 117 mm[Hg] [facility] Diastolic blood pressure 2022-12-02 15:04:00 72 mm[Hg] [facility] Heart rate 2022-12-02 15:04:00 73 /min [facility] Body temperature 2022-12-02 15:04:00 36.17 Bibi [facility] Respiratory rate 2022-12-02 15:04:00 18 /min [facility] Body height 2022-12-02 15:04:00 162.6 cm [facility] Body weight 2022-12-02 15:04:00 69.037 kg [facility] BMI 2022-12-02 15:04:00 26.13 kg/m2 [facility] Systolic blood pressure 2022-11-10 13:18:00 108 mm[Hg] [facility] Diastolic blood pressure 2022-11-10 13:18:00 74 mm[Hg] [facility] Heart rate 2022-11-10 13:18:00 82 /min [facility] Body temperature 2022-11-10 13:18:00 36.56 Bibi [facility] Respiratory rate 2022-11-10 13:18:00 18 /min [facility] Oxygen saturation in Arterial blood by Pulse oximetry 2022-11-10 13:18:00 98 /min [facility] Body height 2022-11-09 00:20:00 162.6 cm [facility] Body weight 2022-11-09 00:20:00 83.008 kg [facility] BMI 2022-11-09 00:20:00 31.41 kg/m2 [facility] Systolic blood pressure 2022-11-05 15:51:00 112 mm[Hg] [facility] Diastolic blood pressure 2022-11-05 15:51:00 73 mm[Hg] [facility] Heart rate 2022-11-05 15:51:00 87 /min [facility] Body temperature 2022-11-05 15:51:00 36.33 Bibi [facility] Respiratory rate 2022-11-05 15:51:00 17 /min [facility] Body height 2022-11-05 15:51:00 162.6 cm [facility] Body weight 2022-11-05 15:51:00 82.81 kg [facility] BMI 2022-11-05 15:51:00 31.34 kg/m2 [facility] Systolic blood pressure 2022-10-31 18:57:00 118 mm[Hg] [facility] Diastolic blood pressure 2022-10-31 18:57:00 80 mm[Hg] [facility] Heart rate 2022-10-31 18:57:00 85 /min [facility] Body temperature 2022-10-31 18:57:00 36.22 Bibi [facility] Respiratory rate 2022-10-31 18:57:00 20 /min [facility] Body height 2022-10-31 18:57:00 162.6 cm [facility] Body weight 2022-10-31 18:57:00 81.761 kg [facility] BMI 2022-10-31 18:57:00 30.94 kg/m2 [facility] Heart rate 2022-10-16 23:55:00 111 /min [facility] Oxygen saturation in Arterial blood by Pulse oximetry 2022-10-16 23:55:00 100 /min [facility] Systolic blood pressure 2022-10-16 20:30:00 99 mm[Hg] [facility] Diastolic blood pressure 2022-10-16 20:30:00 65 mm[Hg] [facility] Body temperature 2022-10-16 20:30:00 37.22 Bibi [facility] Respiratory rate 2022-10-16 20:30:00 18 /min [facility] Body height 2022-10-16 20:30:00 162.6 cm [facility] Body weight 2022-10-16 20:30:00 80.513 kg [facility] BMI 2022-10-16 20:30:00 30.45 kg/m2 [facility] Systolic blood pressure 2022-10-15 13:28:00 118 mm[Hg] [facility] Diastolic blood pressure 2022-10-15 13:28:00 78 mm[Hg] [facility] Heart rate 2022-10-15 13:28:00 92 /min [facility] Body height 2022-10-15 13:28:00 162.6 cm [facility] Body weight 2022-10-15 13:28:00 79.924 kg [facility] BMI 2022-10-15 13:28:00 30.24 kg/m2 [facility] Systolic blood pressure 2022-10-12 00:00:00 105 mm[Hg] [facility] Diastolic blood pressure 2022-10-12 00:00:00 67 mm[Hg] [facility] Heart rate 2022-10-12 00:00:00 94 /min [facility] Oxygen saturation in Arterial blood by Pulse oximetry 2022-10-12 00:00:00 100 /min [facility] Body temperature 2022-10-11 15:48:00 36.56 Bibi [facility] Respiratory rate 2022-10-11 15:48:00 16 /min [facility] Body height 2022-10-11 15:48:00 162.6 cm [facility] Body weight 2022-10-11 15:48:00 77.837 kg [facility] BMI 2022-10-11 15:48:00 29.46 kg/m2 [facility] Systolic blood pressure 2022-09-24 13:59:00 113 mm[Hg] [facility] Diastolic blood pressure 2022-09-24 13:59:00 65 mm[Hg] [facility] Heart rate 2022-09-24 13:59:00 89 /min [facility] Body temperature 2022-09-24 13:59:00 36.28 Bibi [facility] Body height 2022-09-24 13:59:00 162.6 cm [facility] Body weight 2022-09-24 13:59:00 79.425 kg [facility] BMI 2022-09-24 13:59:00 30.06 kg/m2 [facility] Systolic blood pressure 2022-09-10 13:15:00 109 mm[Hg] [facility] Diastolic blood pressure 2022-09-10 13:15:00 73 mm[Hg] [facility] Heart rate 2022-09-10 13:15:00 92 /min [facility] Body temperature 2022-09-10 13:15:00 36.33 Bibi [facility] Respiratory rate 2022-09-10 13:15:00 18 /min [facility] Body height 2022-09-10 13:15:00 162.6 cm [facility] Body weight 2022-09-10 13:15:00 78.427 kg [facility] BMI 2022-09-10 13:15:00 29.68 kg/m2 [facility] Systolic blood pressure 2022-09-05 20:54:00 120 mm[Hg] [facility] Diastolic blood pressure 2022-09-05 20:54:00 71 mm[Hg] [facility] Heart rate 2022-09-05 20:54:00 101 /min [facility] Body temperature 2022-09-05 20:54:00 36.33 Bibi [facility] Respiratory rate 2022-09-05 20:54:00 18 /min [facility] Body height 2022-09-05 20:54:00 162.6 cm [facility] Body weight 2022-09-05 20:54:00 77.678 kg [facility] BMI 2022-09-05 20:54:00 29.39 kg/m2 [facility] Systolic blood pressure 2022-08-23 14:17:00 104 mm[Hg] [facility] Diastolic blood pressure 2022-08-23 14:17:00 65 mm[Hg] [facility] Heart rate 2022-08-23 14:17:00 84 /min [facility] Body temperature 2022-08-23 14:17:00 36.33 Bibi [facility] Respiratory rate 2022-08-23 14:17:00 20 /min [facility] Body height 2022-08-23 14:17:00 162.6 cm [facility] Body weight 2022-08-23 14:17:00 77.111 kg [facility] BMI 2022-08-23 14:17:00 29.18 kg/m2 [facility] Systolic blood pressure 2022-07-29 14:39:00 107 mm[Hg] [facility] Diastolic blood pressure 2022-07-29 14:39:00 73 mm[Hg] [facility] Heart rate 2022-07-29 14:39:00 82 /min [facility] Body temperature 2022-07-29 14:39:00 36.5 Bibi [facility] Respiratory rate 2022-07-29 14:39:00 18 /min [facility] Body height 2022-07-29 14:39:00 162.6 cm [facility] Body weight 2022-07-29 14:39:00 73.483 kg [facility] BMI 2022-07-29 14:39:00 27.81 kg/m2 [facility] Oxygen saturation in Arterial blood by Pulse oximetry 2022-07-29 14:39:00 99 /min [facility] Systolic blood pressure 2022-07-16 15:28:00 105 mm[Hg] [facility] Diastolic blood pressure 2022-07-16 15:28:00 60 mm[Hg] [facility] Heart rate 2022-07-16 15:28:00 91 /min [facility] Body temperature 2022-07-16 15:28:00 36.44 Bibi [facility] Respiratory rate 2022-07-16 15:28:00 18 /min [facility] Body height 2022-07-16 15:28:00 162.6 cm [facility] Body weight 2022-07-16 15:28:00 70.931 kg [facility] BMI 2022-07-16 15:28:00 26.84 kg/m2 [facility] Systolic blood pressure 2022-07-08 22:20:00 115 mm[Hg] [facility] System Diastolic blood pressure 2022-07-08 22:20:00 75 mm[Hg] [facility] Heart rate 2022-07-08 22:20:00 96 /min [facility] Body temperature 2022-07-08 22:20:00 36.56 Bibi [facility] Body height 2022-07-08 22:20:00 162.6 cm [facility] Body weight 2022-07-08 22:20:00 72.122 kg [facility] BMI 2022-07-08 22:20:00 27.29 kg/m2 [facility] Oxygen saturation in Arterial blood by Pulse oximetry 2022-07-08 22:20:00 98 /min [facility] Systolic blood pressure 2022-06-25 14:27:00 112 mm[Hg] [facility] Diastolic blood pressure 2022-06-25 14:27:00 66 mm[Hg] [facility] Heart rate 2022-06-25 14:27:00 87 /min [facility] Body temperature 2022-06-25 14:27:00 36.33 Bibi [facility] Respiratory rate 2022-06-25 14:27:00 17 /min [facility] Body height 2022-06-25 14:27:00 162.6 cm [facility] Body weight 2022-06-25 14:27:00 71.271 kg [facility] BMI 2022-06-25 14:27:00 26.97 kg/m2 [facility] Systolic blood pressure 2022-06-21 13:12:00 116 mm[Hg] [facility] Diastolic blood pressure 2022-06-21 13:12:00 69 mm[Hg] [facility] Heart rate 2022-06-21 13:12:00 85 /min [facility] Body temperature 2022-06-21 13:12:00 36.56 Bibi [facility] Respiratory rate 2022-06-21 13:12:00 18 /min [facility] Body weight 2022-06-21 13:12:00 70.761 kg [facility] BMI 2022-06-21 13:12:00 26.78 kg/m2 [facility] Oxygen saturation in Arterial blood by Pulse oximetry 2022-06-21 13:12:00 98 /min [facility] Body height 2022-06-13 13:58:00 162.6 cm [facility] Body weight 2022-06-13 13:58:00 69.4 kg [facility] BMI 2022-06-13 13:58:00 26.26 kg/m2 [facility] Systolic blood pressure 2022-06-12 14:53:00 112 mm[Hg] [facility] Diastolic blood pressure 2022-06-12 14:53:00 66 mm[Hg] [facility] Heart rate 2022-06-12 14:53:00 74 /min [facility] Body temperature 2022-06-12 14:53:00 36.22 Bibi [facility] Respiratory rate 2022-06-12 14:53:00 18 /min [facility] Body height 2022-06-12 14:53:00 162.6 cm [facility] Body weight 2022-06-12 14:53:00 69.673 kg [facility] BMI 2022-06-12 14:53:00 26.37 kg/m2 [facility] Systolic blood pressure 2022-06-06 14:10:00 92 mm[Hg] [facility] Diastolic blood pressure 2022-06-06 14:10:00 71 mm[Hg] [facility] Heart rate 2022-06-06 14:10:00 87 /min [facility] Body temperature 2022-06-06 14:10:00 36.44 Bibi [facility] Respiratory rate 2022-06-06 14:10:00 18 /min [facility] Body height 2022-06-06 14:10:00 162.6 cm [facility] Body weight 2022-06-06 14:10:00 68.901 kg [facility] BMI 2022-06-06 14:10:00 26.07 kg/m2 [facility] Oxygen saturation in Arterial blood by Pulse oximetry 2022-06-06 14:10:00 99 /min [facility] Systolic blood pressure 2022-05-13 14:24:00 107 mm[Hg] [facility] Diastolic blood pressure 2022-05-13 14:24:00 72 mm[Hg] [facility] Heart rate 2022-05-13 14:24:00 87 /min [facility] Body temperature 2022-05-13 14:24:00 37 Bibi [facility] Respiratory rate 2022-05-13 14:24:00 18 /min [facility] Body height 2022-05-13 14:24:00 162.6 cm [facility] Body weight 2022-05-13 14:24:00 67.858 kg [facility] BMI 2022-05-13 14:24:00 25.68 kg/m2 [facility] Systolic blood pressure 2022-04-29 21:27:00 114 mm[Hg] [facility] Diastolic blood pressure 2022-04-29 21:27:00 74 mm[Hg] [facility] Body temperature 2022-04-29 21:27:00 36.61 Bibi [facility] Respiratory rate 2022-04-29 21:27:00 18 /min [facility] Body weight 2022-04-29 21:27:00 68.448 kg [facility] BMI 2022-04-29 21:27:00 25.90 kg/m2 [facility] Systolic blood pressure 2022-04-23 14:30:00 117 mm[Hg] [facility] Diastolic blood pressure 2022-04-23 14:30:00 73 mm[Hg] [facility] Heart rate 2022-04-23 14:30:00 88 /min [facility] Body temperature 2022-04-23 14:30:00 36.78 Bibi [facility] Respiratory rate 2022-04-23 14:30:00 18 /min [facility] Body height 2022-04-23 14:30:00 162.6 cm [facility] Body weight 2022-04-23 14:30:00 66.18 kg [facility] BMI 2022-04-23 14:30:00 25.04 kg/m2 [facility] Systolic blood pressure 2022-04-15 14:40:00 118 mm[Hg] [facility] Diastolic blood pressure 2022-04-15 14:40:00 76 mm[Hg] [facility] Heart rate 2022-04-15 14:40:00 82 /min [facility] Body temperature 2022-04-15 14:40:00 36.89 Bibi [facility] Body weight 2022-04-15 14:40:00 66.044 kg [facility] BMI 2022-04-15 14:40:00 24.99 kg/m2 [facility] Systolic blood pressure 2022-04-09 21:04:00 110 mm[Hg] [facility] Diastolic blood pressure 2022-04-09 21:04:00 74 mm[Hg] [facility] Heart rate 2022-04-09 21:04:00 99 /min [facility] Body temperature 2022-04-09 21:04:00 36.94 Bibi [facility] Body weight 2022-04-09 21:04:00 66.679 kg [facility] BMI 2022-04-09 21:04:00 25.23 kg/m2 [facility] Systolic blood pressure 2022-03-22 20:46:00 112 mm[Hg] [facility] Diastolic blood pressure 2022-03-22 20:46:00 73 mm[Hg] [facility] Heart rate 2022-03-22 20:46:00 103 /min [facility] Body temperature 2022-03-22 20:46:00 36.89 Bibi [facility] Respiratory rate 2022-03-22 20:46:00 16 /min [facility] Body weight 2022-03-22 20:46:00 65.772 kg [facility] BMI 2022-03-22 20:46:00 24.89 kg/m2 [facility] Oxygen saturation in Arterial blood by Pulse oximetry 2022-03-22 20:46:00 99 /min [facility] Systolic blood pressure 2022-03-06 21:27:00 129 mm[Hg] [facility] Diastolic blood pressure 2022-03-06 21:27:00 80 mm[Hg] [facility] Heart rate 2022-03-06 21:27:00 72 /min [facility] Body temperature 2022-03-06 21:27:00 36.89 Bibi [facility] Respiratory rate 2022-03-06 21:27:00 18 /min [facility] Body height 2022-03-06 21:27:00 162.6 cm [facility] Body weight 2022-03-06 21:27:00 65.772 kg [facility] BMI 2022-03-06 21:27:00 24.89 kg/m2 [facility] Systolic blood pressure 2022-02-22 21:54:00 122 mm[Hg] [facility] Diastolic blood pressure 2022-02-22 21:54:00 67 mm[Hg] [facility] Heart rate 2022-02-22 21:54:00 62 /min [facility] Respiratory rate 2022-02-22 21:54:00 18 /min [facility] Body weight 2022-02-22 21:54:00 68.04 kg [facility] BMI 2022-02-22 21:54:00 25.75 kg/m2 [facility] Oxygen saturation in Arterial blood by Pulse oximetry 2022-02-22 21:54:00 99 /min [facility] Body height 2022-02-12 14:38:00 162.6 cm [facility] Body weight 2022-02-12 14:38:00 67.132 kg [facility] BMI 2022-02-12 14:38:00 25.40 kg/m2 [facility] Systolic blood pressure 2022-02-11 22:01:00 116 mm[Hg] [facility] Diastolic blood pressure 2022-02-11 22:01:00 81 mm[Hg] [facility] Heart rate 2022-02-11 22:01:00 88 /min [facility] Body temperature 2022-02-11 22:01:00 36.94 Bibi [facility] Respiratory rate 2022-02-11 22:01:00 18 /min [facility] Body height 2022-02-11 22:01:00 162.6 cm [facility] Body weight 2022-02-11 22:01:00 67.132 kg [facility] BMI 2022-02-11 22:01:00 25.40 kg/m2 [facility] Systolic blood pressure 2022-01-29 13:39:00 125 mm[Hg] [facility] Diastolic blood pressure 2022-01-29 13:39:00 83 mm[Hg] [facility] Heart rate 2022-01-29 13:39:00 96 /min [facility] Body height 2022-01-29 13:39:00 162.6 cm [facility] Body weight 2022-01-29 13:39:00 65.545 kg [facility] BMI 2022-01-29 13:39:00 24.80 kg/m2 [facility] Systolic blood pressure 2021-12-17 13:13:00 116 mm[Hg] [facility] Diastolic blood pressure 2021-12-17 13:13:00 78 mm[Hg] [facility] Heart rate 2021-12-17 13:13:00 87 /min [facility] Body temperature 2021-12-17 13:13:00 37.06 Bibi [facility] Respiratory rate 2021-12-17 13:13:00 18 /min [facility] Body height 2021-12-17 13:13:00 162.6 cm [facility] Body weight 2021-12-17 13:13:00 63.504 kg [facility] BMI 2021-12-17 13:13:00 24.03 kg/m2 [facility] Body height 2021-08-21 12:15:00 162.6 cm [facility] Body weight 2021-08-21 12:15:00 63.504 kg [facility] BMI 2021-08-21 12:15:00 24.03 kg/m2 [facility] Procedures Procedure Date / Time Performed Performing Clinician Source POCT URINALYSIS W/O SPECIFIC GRAVITY 2024-11-24 00:00:00 Hawa Leos [facility] XR KUB 2024-09-09 14:50:00 Brandon Espinoza [facility] PNEUMOCOCCAL 20 CONJUGATE (PREVNAR 20) VACCINE 2024-09-09 14:22:10 Brandon Espinoza [facility] [id number] - CT LAPAROSCOPY FULGURATION OVIDUCTS 2024-08-24 12:29:00 Hawa Leos [facility] DSU PRE-OP 2024-08-18 21:43:53 Doctor Unass igned, [place] [facility] OCT, OPTIC NERVE - OU - BOTH EYES 2024-07-26 21:13:42 Mike Deborah [facility] OCT, RETINA - OU - BOTH EYES 2024-07-26 21:13:34 Mike Deborah [facility] AUTOMATED VISUAL FIELD, EXTENDED - OU - BOTH EYES 2024-07-26 21:13:22 Mike Deborah [facility] MR BRAIN W WO CONTRAST 2024-07-14 10:42:41 Nisa Renee [facility] CBC WITH DIFF 2024-07-13 08:37:00 JenusaitisJayy [facility] VENOUS CORD GAS 2024-07-13 04:34:00 Maribel Fierro [facility] CENTRAL NEURAXIAL BLOCK 2024-07-13 01:43:00 Yumiko Vazquez [facility] HEPATITIS B SURFACE ANTIGEN 2024-07-12 15:06:00 Sri Maribel [facility] HB ABO GROUPING 2024-07-12 15:06:00 Maribel Fierro [facility] RHO (D) IMMUNE GLOBULIN 2024-07-12 15:06:00 JenJayy garcia [facility] HIV 1/2 AG-AB WITH REFLEX 2024-07-12 15:06:00 Maribel Fierro [facility] SYPHILIS IGG/IGM 2024-07-12 15:06:00 [facility] 2024-07-08 22:22:15 Hawa Leos [facility] >14 WEEKS US LIMITED 2024-07-05 22:36:19 Hawa Leos [facility] NON-STRESS TEST 2024-07-05 22:34:59 aHwa Leos [facility] POCT URINALYSIS W/O SPECIFIC GRAVITY 2024-07-05 00:00:00 Hawa Leos [facility] NON-STRESS TEST 2024-07-01 03:36:53 Deric Hawa trinidad [facility] COMP. METABOLIC PANEL ([id number]) 2024-06-30 21:35:00 Hawa Leos [facility] NON-STRESS TEST 2024-06-28 21:13:24 Hawa Leos [facility] NON-STRESS TEST 2024-06-10 22:58:23 Deric Hawa trinidad [facility] TDAP VACCINE, >11 YRS, IM 2024-06-02 21:36:01 Crista Leos [facility] POCT URINALYSIS W/O SPECIFIC GRAVITY 2024-06-02 21:35:00 Hawa Leos [facility] US PELVIS > 14 WEEKS 2024-05-05 23:39:39 Magda Reid [facility] URINALYSIS 2024-05-05 23:03:00 Hawa Leos [facility] ADC CLC OR LCC ONLY - WET PREP 2024-05-05 23:03:00 Hawa Leos [facility] POCT URINALYSIS W/O SPECIFIC GRAVITY 2024-03-02 14:20:00 Hawa Leos [facility] FLU VACC ([id number]), 6 MO-64 YRS, .5ML, IM, TIV (FLUCELVAX) 2024-02-02 20:24:54 Hawa Leos [facility] POCT URINALYSIS W/O SPECIFIC GRAVITY 2024-02-02 00:00:00 Hawa Leos [facility] SCANNED LAB RESULTS 2024-01-14 13:36:58 Doctor Geovanny wick, [place] [facility] URINE DRUG (IMMUNOASSAY) - COMPREHENSIVE DRUG SCREEN 2024-01-05 19:58:00 Hawa Leos [facility] GALV ONLY - VAGINAL PATHOGENS BY NUCLEIC ACID TESTING 2024-01-05 19:58:00 Hawa Leos [facility] POCT TEST 2024-01-05 00:00:00 Hawa Leos [facility] POCT URINALYSIS W/O SPECIFIC GRAVITY 2024-01-05 00:00:00 Hawa Leos [facility] MR BRAIN W WO CONTRAST 2023-09-11 14:47:00 Mikel Santoyo [facility] FUNDUS PHOTOS - OU - BOTH EYES 2023-08-15 20[facility] OCT, OPTIC NERVE - OU - BOTH EYES 2023-08-15 20:52[facility]14 [facility] OCT, RETINA - OU - BOTH EYES 2023-08-15 20:52:09 [facility] AUTOMATED VISUAL FIELD, EXTENDED - OU - BOTH EYES 2023-08-15 20:52:05 [facility] CT HEAD WO CONTRAST 2023-07-12 07:57:00 Patrick Meza on [facility] PHOSPHORUS 2023-07-11 08:25:00 Imam, Estherr S. Unive [facility] MAGNESIUM 2023-07-11 08:25:00 Imam, Jaafer S. Unive [facility] BASIC METABOLIC PANEL (NA, K, CL, CO2, GLUCOSE, BUN, CREATININE, CA) 2023-07-11 08:25:00 ImamSheri SLuis [facility] CBC WITHOUT DIFF 2023-07-11 08:25:00 [facility]23-07-11 08:25:00 Imam, Yanafer S. Unive [facility] MAGNESIUM 2023-07-11 08:25:00 Imam, Jaafer S. Unive [facility] BASIC METABOLIC PANEL (NA, K, CL, CO2, GLUCOSE, BUN, CREATININE, CA) 2023-07-11 08:25:00 ImamSheri SLuis [facility] CBC WITHOUT DIFF 2023-07-11 08:25:00 [facility] 2023-07-10 09:08:00 Imam, Jaafer S. Unive [facility] MAGNESIUM 2023-07-10 09:08:00 Imam, Jaafer S. Unive [facility] BASIC METABOLIC PANEL (NA, K, CL, CO2, GLUCOSE, BUN, CREATININE, CA) 2023-07-10 09:08:00 ImSheri bryant [facility] CBC WITHOUT DIFF 2023-07-10 09:08:00 ImSheri bryant [facility] PHOSPHORUS 2023-07-10 09:08:00 ImamSheri [facility] MAGNESIUM 2023-07-10 09:08:00 [facility]ri [facility] BASIC METABOLIC PANEL (NA, K, CL, CO2, GLUCOSE, BUN, CREATININE, CA) 2023-07-10 09:08:00 ImamSheri [facility] CBC WITHOUT DIFF 2023-07-10 09:08:00 ImamSheri [facility] MODIFIED BARIUM SWALLOW 2023-07-09 20:22:38 [facility]y [facility] [place] MODIFIED BARIUM SWALLOW 2023-07-09 20:22:38 Katey [facility] URINALYSIS 2023-07-09 16:04:00 Ninfa Lawton [facility] URINALYSIS 2023-07-09 16:04:00 Ninfa Lawton [facility] BASIC METABOLIC PANEL (NA, K, CL, CO2, GLUCOSE, BUN, CREATININE, CA) 2023-07-09 09:16:00 [facility] 2023-07-09 09:16:00 Lopez Ballesteros [facility] BASIC METABOLIC PANEL (NA, K, CL, CO2, GLUCOSE, BUN, CREATININE, CA) 2023-07-09 09:16:00 Lesli [facility] CBC WITH DIFF 2023-07-09 09:16:00 Lopez Ballesteros [facility] MR BRAIN W WO CONTRAST 2023-07-08 23:26:08 Lissette Ballesteros [facility] MR BRAIN W WO CONTRAST 2023-07-08 23:26:08 Lissette Ballesteros [facility] SODIUM 2023-07-08 18:40:00 Ninfa Lawton [facility] SPECIFIC GRAVITY URINE 2023-07-08 18:40:00 Ninfa Worthington [facility] SODIUM 2023-07-08 18:40:00 Ninfa Lawton [facility] OSMOLALITY, SERUM OR PLASMA 2023-07-08 18:40:00 Ninfa Lawton [facility] OSMOLALITY URINE 2023-07-08 18:40:00 Huseyin Lawton [facility] SPECIFIC GRAVITY URINE 2023-07-08 18:40:00 Ninfa Worthington [facility] OSMOLALITY, SERUM OR PLASMA 2023-07-08 18:40:00 Ninfa Lawton [facility] OSMOLALITY URINE 2023-07-08 18:40:00 Huseyin Lawton [facility] LACTIC ACID WHOLE BLOOD 2023-07-08 16:30:00 ImamAlexus [facility] LACTIC ACID WHOLE BLOOD 2023-07-08 16:30:00 ImamAlexus [facility] LACTIC ACID WHOLE BLOOD 2023-07-08 14:11:00 ImamAlexus [facility] LACTIC ACID WHOLE BLOOD 2023-07-08 14:11:00 ImamAlexus [facility] LACTIC ACID WHOLE BLOOD 2023-07-08 12:44:00 ImamAlexus [facility] LACTIC ACID WHOLE BLOOD 2023-07-08 12:44:00 ImamAlexus [facility] MAGNESIUM 2023-07-08 11:02:00 Ninfa Lawton [facility] BASIC METABOLIC PANEL (NA, K, CL, CO2, GLUCOSE, BUN, CREATININE, CA) 2023-07-08 11:02:00 Sheri Tejeda [facility] MAGNESIUM 2023-07-08 11:02:00 Ninfa Lawton [facility] BASIC METABOLIC PANEL (NA, K, CL, CO2, GLUCOSE, BUN, CREATININE, CA) 2023-07-08 11:02:00 Sheri Tejeda [facility] AC PANEL 20 + LACTIC ACID 2023-07-08 09:09:00 Yan Tejeda [facility] AC PANEL 20 + LACTIC ACID 2023-07-08 09:09:00 Yan Tejeda [facility] CBC WITH DIFF 2023-07-08 09:07:00 [facility]ana[facility]ma [facility] 2023-07-08 09:07:00 Elma Ballesteroson Uni [facility] XR KUB 2023-07-08 06:35:07 [facility]ri [facility] XR KUB 2023-07-08 06:35:07 ImSheri bryant [facility] LACTIC ACID WHOLE BLOOD 2023-07-08 05:46:00 ImamAlexus [facility] LACTIC ACID WHOLE BLOOD 2023-07-08 05:46:00 ImamAlexus [facility] BASIC METABOLIC PANEL (NA, K, CL, CO2, GLUCOSE, BUN, CREATININE, CA) 2023-07-08 05:19:00 Sheri Tejeda [facility] BASIC METABOLIC PANEL (NA, K, CL, CO2, GLUCOSE, BUN, CREATININE, CA) 2023-07-08 05:19:00 Sheri Tejeda [facility] AC PANEL 20 + LACTIC ACID 2023-07-08 04:16:00 ImYan bryant [facility] AC PANEL 20 + LACTIC ACID 2023-07-08 04:16:00 Yan Tejeda [facility] CT HEAD WO CONTRAST 2023-07-08 03:58:09 ImSheri bryant [facility] CT HEAD WO CONTRAST 2023-07-08 03:58:09 Sheri Tejeda [facility] MRSA / MSSA SCREEN BY JOSHUA COLON 2023-07-08 02:42:00 ImamYanafer S. [facility] MRSA / MSSA SCREEN BY PCR, JOSHUA 2023-07-08 02:42:00 ImamSheri [facility] XR CHEST 1 VW 2023-07-08 02:16:11 [facility] XR CHEST 1 VW 2023-07-08 02:16:11 [facility] AC PANEL 20 + LACTIC ACID 2023-07-08 02:04:00 Imam, Yan Perez [facility] AC PANEL 20 + LACTIC ACID 2023-07-08 02:04:00 Imam, Yan Perez [facility] PHOSPHORUS 2023-07-08 02:02:00 [facility] MAGNESIUM 2023-07-08 02:02:00 [facility] BASIC METABOLIC PANEL (NA, K, CL, CO2, GLUCOSE, BUN, CREATININE, CA) 2023-07-08 02:02:00 ImamSheri Luis [facility] CBC WITH DIFF 2023-07-08 02:02:00 ImamSheri Luis [facility] PHOSPHORUS 2023-07-08 02:02:00 [facility] MAGNESIUM 2023-07-08 02:02:00 [facility] BASIC METABOLIC PANEL (NA, K, CL, CO2, GLUCOSE, BUN, CREATININE, CA) 2023-07-08 02:02:00 Imam, Sheri Luis [facility] CBC WITH DIFF 2023-07-08 02:02:00 [facility] ACUTE CARE ARTERIAL 2023-07-07 23:40:00 Carlos Watts [facility] ACUTE CARE ARTERIAL 2023-07-07 23:40:00 Carlos Watts [facility] ACUTE CARE ARTERIAL 2023-07-07 19:15:00 Stefanie, P [facility] ACUTE CARE ARTERIAL 2023-07-07 19:15:00 Stefanie, P [facility] ACUTE CARE ARTERIAL 2023-07-07 17:38:00 Stefanie, P [facility] ACUTE CARE ARTERIAL 2023-07-07 17:38:00 Stefanie, Carlos [facility] SURGICAL PATHOLOGY EXAM 2023-07-07 17:18:00 Stefanie, Manasa vaz [facility] SURGICAL PATHOLOGY EXAM 2023-07-07 17:18:00 Stefanie, Manasa [facility] SURGICAL PATHOLOGY EXAM 2023-07-07 17:18:00 Stefanie, Manasa [facility] ACUTE CARE ARTERIAL 2023-07-07 14:22:00 Stefanie, Carlos [facility] ACUTE CARE ARTERIAL 2023-07-07 14:22:00 Stefanie, Carlos [facility] ARTERIAL LINE 2023-07-07 14:00:00 Mani Reynolds [facility] PREPARE PACKED RBC 2023-07-07 13:11:38 Venice Perry [facility] INTUBATION 2023-07-07 12:50:00 Mani Reynolds [facility] CRANIOTOMY RESECTION TUMOR WITH NAVIGATION 2023-07-07 12:10:00 Stefanie [facility] CRANIOTOMY RESECTION TUMOR WITH NAVIGATION 2023-07-07 12:10:00 Stefanie [facility] CRANIOTOMY RESECTION TUMOR WITH NAVIGATION 2023-07-07 12:10:00 Stefanie [facility] CRANIOTOMY RESECTION TUMOR WITH NAVIGATION 2023-07-07 12:10:00 Stefanie [facility] CRANIOTOMY RESECTION TUMOR WITH NAVIGATION 2023-07-07 12:10:00 Stefanie [facility] CRANIOTOMY RESECTION TUMOR WITH NAVIGATION 2023-07-07 12:10:00 Stefanie [facility] BASIC METABOLIC PANEL (NA, K, CL, CO2, GLUCOSE, BUN, CREATININE, CA) 2023-07-07 11:23:00 Lopez Ballesteros [facility] CBC WITH DIFF 2023-07-07 11:23:00 Lopez Ballesteros [facility] PROTHROMBIN TIME / INR 2023-07-07 11:23:00 Roxana'Rajinder, Lissette [facility] ACTIVATED PARTIAL THRMPLAS MARIANGEL 2023-07-07 11:23:00 Lesli [facility] HB ABO GROUPING 2023-07-07 11:23:00 Lopez Ballesteros [facility] BASIC METABOLIC PANEL (NA, K, CL, CO2, GLUCOSE, BUN, CREATININE, CA) 2023-07-07 11:23:00 Lesli [facility] CBC WITH DIFF 2023-07-07 11:23:00 Lopez Ballesteros [facility] PROTHROMBIN TIME / INR 2023-07-07 11:23:00 Roxana'Rajinder, Pr [facility] ACTIVATED PARTIAL THRMPLAS MARIANGEL 2023-07-07 11:23:00 Roxana'Rajinder [facility] HB ABO GROUPING 2023-07-07 11:23:00 Lopez Ballesteros [facility] POCT TEST 2023-07-07 11:00:00 Stefanie Roque [facility] POCT TEST 2023-07-07 11:00:00 Roque Watts [facility] MR BRAIN W WO CONTRAST 2023-06-02 14:49:46 Ahsan Sheets [facility] MR ABDOMEN W WO CONTRAST 2023-05-29 16:02:59 Lorenza Roe [facility] COMP. METABOLIC PANEL ([id number]) 2023-05-19 19:46:00 Dulce Maria Maddox [facility] BILI UNCONJUGATED/BILI CONJUG 2023-05-19 19:46:00 Brandon Espinoza [facility] FREE T4 2023-05-19 19:46:00 Brandon Espinoza [facility] THYROID STIMULATING HORMONE 2023-05-19 19:46:00 Brandon Espinoza [facility] CBC WITH DIFF 2023-05-19 19:46:00 Brandon Espinoza [facility] FREE T3 2023-05-19 19:46:00 Brandon Espinoza [facility] POCT TEST 2023-05-17 17:03:00 Fabiana Keane [facility] LIPASE 2023-05-17 16:33:00 Fabiana [facility] COMP. METABOLIC PANEL ([id number]) 2023-05-17 16:33:00 Fabiana Keane [facility] CBC WITH DIFF 2023-05-17 16:33:00 Fabiana Keane [facility] URINALYSIS 2023-05-17 16:33:00 Fabiana Keane [facility] CONSENT/REFUSAL FOR DIAGNOSIS AND TREATMENT 2023-05-17 15:54:45 Doctor Unassigned, [place] [facility] TRANSTHORACIC ECHO (TTE) COMPLETE 2023-04-23 16:11:59 Cherelle Bowie [facility] MR BRAIN W WO CONTRAST 2023-03-20 15:25:32 Roxy Sosa [facility] FLU VACC ([id number]), 6 MO-64 YRS, .5ML, IM, QUAD (FLUCELVAX) 2023-01-01 12:25:01 Ella Moreno [facility] CBC WITH DIFF 2022-11-10 08:49:00 Edilia Hewitt [facility] VENOUS CORD GAS 2022-11-09 12:49:00 Edilia Hewitt [facility] CENTRAL NEURAXIAL BLOCK 2022-11-09 06:25:00 Siomara Veloz [facility] CBC WITH DIFF 2022-11-09 00:56:00 Edilia Hewitt [facility] HEPATITIS B SURFACE ANTIGEN 2022-11-09 00:56:00 Edilia Hewitt [facility] HB ABO GROUPING 2022-11-09 00:56:00 Edilia Hewitt [facility] RHO (D) IMMUNE GLOBULIN 2022-11-09 00:56:00 Ana Hewitt [facility] HIV 1/2 AG-AB WITH REFLEX 2022-11-09 00:56:00 Edilia Hewitt [facility] SYPHILIS IGG/IGM 2022-11-09 00:56:00 Edilia Hewitt nne [facility] HOSPITAL ADMISSION 2022-11-08 05:01:00 Doctor Un assigned, [place] [facility] POCT URINALYSIS W/O SPECIFIC GRAVITY 2022-11-05 15:44:00 Arturo Bowen [facility] POCT URINALYSIS W/O SPECIFIC GRAVITY 2022-10-31 18:59:00 Lorena Naranjo [facility] ASSIGNMENT OF BENEFITS 2022-10-16 19:49:30 Docto r Unassigned, [place] [facility] AUTHORIZATION FOR RELEASE OF PHI 2022-10-16 05:01:00 Doctor Unassigned, [place] [facility] L&D VISIT (NON-DELIVERED) 2022-10-16 05:01:00 Do ctor Unassigned, [place] [facility] ADC CLC OR LCC ONLY - WET PREP 2022-10-11 16:29:00 Rafaela Flores [facility] ASSIGNMENT OF BENEFITS 2022-10-11 15:30:05 Docto r Unassigned, [place] [facility] NOTICE OF PRIVACY PRACTICES 2022-10-11 15:29:11 Doctor Unassigned, [place] [facility] CONSENT/REFUSAL FOR DIAGNOSIS AND TREATMENT 2022-10-11 15:28:55 Doctor Unassigned, [place] [facility] POCT URINALYSIS W/O SPECIFIC GRAVITY 2022-09-24 13:57:00 Arturo Bowen [facility] POCT URINALYSIS W/O SPECIFIC GRAVITY 2022-09-10 00:00:00 Arturo Bowen [facility] POCT URINALYSIS 2022-09-05 20:57:00 Sarah Santana [facility] POCT URINALYSIS W/O SPECIFIC GRAVITY 2022-08-23 00:00:00 Arturo Bowen [facility] POCT URINALYSIS W/O SPECIFIC GRAVITY 2022-07-29 14:52:00 Lenny Dennison [facility] POCT URINALYSIS W/O SPECIFIC GRAVITY 2022-07-16 15:31:00 Arturo Bowen [facility] PATIENT FINANCIAL POLICY 2022-07-08 22:06:46 Doctor Unassigned, [place] [facility] POCT URINALYSIS W/O SPECIFIC GRAVITY 2022-06-25 14:21:00 Lenny Dennison [facility] GALV ONLY - VAGINAL PATHOGENS BY NUCLEIC ACID TESTING 2022-06-12 16:30:00 Hellen Davidson [facility] POCT TEST 2022-06-12 14:55:00 Ghanshyam Davidson [facility] POCT URINALYSIS W/O SPECIFIC GRAVITY 2022-06-12 14:55:00 Hellen Davidson [facility] CONSENT FOR SERUM MARKER SCREENING 2022-06-12 06:01:00 Doctor Unassigned, [place] [facility] REPORT OF 2022-06-12 06:01:00 Doctor U nassigned, [place] [facility] IMMUNOGLOBULIN G SUBCLASS 4 2022-06-06 14:50:00 Juan Antonio Pena [facility] POCT URINALYSIS W/O SPECIFIC GRAVITY 2022-05-13 14:28:00 Lucinda Sanchez [facility] MEDICAL RELEASE/CLEARANCE FORMS 2022-04-26 06:01:00 Doctor Unassigned, [place] [facility] US OB TRANSVAGINAL 2022-04-15 15:32:59 Hawa Leos [facility] ASSIGNMENT OF BENEFITS 2022-04-15 13:58:05 Docto r Unassigned, [place] [facility] URINE DRUG (IMMUNOASSAY) - COMPREHENSIVE DRUG SCREEN 2022-04-09 23:13:00 Lucinda Sanchez [facility] FLU VACC ([id number]), 6 MO-64 YRS, .5ML, IM, QUAD (FLUCELVAX) 2022-04-09 21:53:05 Lucinad Sanchez [facility] POCT TEST 2022-04-09 00:00:00 Kevin Sanchez [facility] SCANNED LAB RESULTS 2022-03-06 06:01:00 Doctor Geovanny wick, [place] [facility] GALV ONLY - VAGINAL PATHOGENS BY NUCLEIC ACID TESTING 2022-02-11 22:10:00 Evelin Dickerson [facility] MR BRAIN W WO CONTRAST 2022-02-05 22:51:00 Marshall Arroyo [facility] ASSIGNMENT OF BENEFITS 2022-02-05 21:19:01 Docto r Unassigned, [place] [facility] Encounters Start Date/Time End Date/Time Encounter Type Admission Type Attending Clinicians Care Facility Care Department Encounter ID Source 2024-08-17 09:31:37 Outpatient HAWA BOWSER VIEN [facility] DIVISION HEAD [id number] [facility] 2021-08-20 07:24:16 Outpatient ROQUE EPPS PATRICK [facility] SNS [id number] [facility] 2021-02-04 13:32:30 Emergency [facility] [id number] [facility] 2021 15:26:05 Emergency [facility] [id number] [facility] 2021 14:27:[address] [facility] MATT [id number] [facility] 2021 14:19:[address] [facility] MATT [id number] [facility] 2021 14:06:[address] [facility] MATT [id number] [facility] 2021 12:06:[address] [facility] MATT [id number] [facility] 2021 12:01:[address] [facility]ATT [id number] [facility] 2024-12-06 00:00:00 2025-01-08 18:24:05 Patient Secure Brandon Lyaton [facility] 1.2.840.114 350.1.13.10 4.2.7.2.686 [id number] [facility] 2025-01-03 16:00:00 2025-01-03 16:45:14 Ancillary Visit Donna Dolan Craig L Castro, [facility] NAL BUILDING 1.2840.114 350.1.13.10 4.2.7.2.686 [id number] [facility] 2024-12-22 15:20:00 2024-12-22 15:52:29 Office Visit Brandon Nguyen [facility] BUILDING 1.2840.114 350.1.13.10 4.2.7.2.686 [id number] [id number] [facility] 2024-12-07 16:00:00 2024-12-07 16:30:00 Office Visit Markel Al [facility] BUILDING 1.2840.114 350.1.13.10 4.2.7.2.686 [id number] [facility] 2024-12-02 15:30:00 2024-12-02 16:28:49 Office Visit Roque Epps [facility] MEDICAL OFFICE BUILDING 1.2.840.114 350.1.13.10 4.2.7.2.686 [id number] [facility] 2024-11-24 15:30:00 2024-11-24 16:04:07 Office Visit HAWA BOWSER VIEN [facility] BUILDING 1.2840.114 350.1.13.10 4.2.7.2.686 [id number] [facility] 2024-11-23 00:00:00 2024-11-23 16:09:24 Patient Secure Msg Watts [facility] MEDICAL OFFICE BUILDING 1.2.840.114 350.1.13.10 4.2.7.2.686 [id number] [facility] 2024-10-15 00:00:00 2024-11-20 18:35:11 Patient Secure Msg Watts, [facility] MEDICAL OFFICE BUILDING 1.2840.114 350.1.13.10 4.2.7.2.686 [id number] [facility] 2024-11-19 09:30:00 2024-11-19 10:30:00 Efficiency Miner Blasting Visit Diego Marin Respiratory Radiology [facility] AT [facility] 1.2.840.114 350.1.13.10 4.2.7.2.686 [id number] [facility] 2024-10-25 13:30:00 2024-10-25 15:12:40 Office Visit Huseyin Salas [facility] 1.2840.114 350.1.13.10 4.2.7.2.686 [id number] [facility] 2024-10-25 08:30:00 2024-10-25 08:30:00 Outpatient HUSEYIN SALAS III [facility] [id number] [facility] 2024-10-06 00:00:00 2024-10-07 16:05:58 Brandon Martinez [facility] 1.2840.114 350.1.13.10 4.2.7.2.686 [id number] [id number] [facility] 2024-10-04 00:00:00 2024-10-05 16:03:51 Telephone Iesha Santoyo BUILDING 1.2.840.114 350.1.13.10 4.2.7.2.686 [id number] 181 [id number] [facility] 2024-10-05 08:15:00 2024-10-05 08:58:58 Office Visit R Stefanie Roque [facility] MEDICAL OFFICE BUILDING 1.2.840.114 350.1.13.10 4.2.7.2.686 [id number] [facility] 2024-10-02 16:56:16 2024-10-02 23:59:00 Hospital Encounter R IESHA SANTOYO [facility] 1.2.840.114 350.1.13.10 4.2.7.2.686 [id number] [facility] 2024-09-29 00:00:00 2024-09-29 10:10:28 Patient Outreach Nadine Marquez Bridget L [facility] BUILDING 1.2.840.114 350.1.13.10 4.2.7.2.686 [id number] [facility] 2024-09-28 09:30:00 2024-09-28 12:04:34 Office Visit R Felicita Shirley [facility] 1.2.840.114 350.1.13.10 4.2.7.2.686 [id number] [facility] 2024-09-28 00:00:00 2024-09-28 10:15:32 Letter (Out) Felicita Shirley [facility] 1.2.840.114 350.1.13.10 4.2.7.2.686 [id number] [facility] 2024-09-16 00:00:00 2024-09-16 16:22:09 Letter (Out) Hawa Leos [facility] BUILDING 1.2.840.114 350.1.13.10 4.2.7.2.686 [id number] 134 [id number] [facility] 2024-09-16 15:45:00 2024-09-16 16:21:09 Office Visit Hawa Bowser [facility] BUILDING 1.2.840.114 350.1.13.10 4.2.7.2.686 [id number] 134 [id number] [facility] 2024-09-14 14:30:00 2024-09-14 14:30:00 Outpatient R FELICITA SHIRLEY [facility] [id number] [facility] 2024-09-09 09:41:24 2024-09-09 23:59:00 Hospital Encounter Cuong ESPINOZABRANDON [facility] RAD [id number] [facility] 2024-09-01 00:00:00 2024-09-09 13:58:25 Telephone Felicita Shirley BUILDING 1.2.840.114 350.1.13.10 4.2.7.2.686 [id number] 181 [id number] [facility] 2024-09-09 08:20:00 2024-09-09 09:29:43 Office Visit Cuong MikalaniyaBrandon espinal [facility] BUILDING 1.2.840.114 350.1.13.10 4.2.7.2.686 [id number] [id number] [facility] 2024-08-04 00:00:00 2024-09-04 18:16:35 Patient Secure Hawa Pal [facility] BUILDING 1.2.840.114 350.1.13.10 4.2.7.2.686 [id number] 134 [id number] [facility] 2024-08-04 00:00:00 2024-09-04 18:14:29 Patient Secure Msg [facility] OFF[facility] BUILDING 1.2.840.114 350.1.13.10 4.2.7.2.686 [id number] [facility] 2024-09-01 10:00:00 2024-09-01 10:00:00 Outpatient FELICITA JANE [facility] [id number] [facility] 2024-08-31 00:00:00 2024-08-31 13:54:21 Patient Secure Msg Hawa Leos [facility] BUILDING 1..114 350.1.13.10 4.2.7.2.686 [id number] 134 [id number] [facility] 2024-08-24 06:31:00 2024-08-24 09:51:00 Hospital Encounter R HAWA LEOS VIEN [facility] DIV[facility] HEAD [id number] [facility] 2024-08-24 07:20:00 2024-08-24 08:46:00 Surgery Hawa Leos [facility] AT [facility] 1..114 350.1.13.10 4.2.7.2.686 [id number] [facility] 2024-08-23 15:15:00 2024-08-23 15:30:00 Efficiency Miner Blasting Visit R 2, Adc Lab Hawa Leos 2, Adc Lab [facility] BUILDING 1..114 350.1.13.10 4.2.7.2.686 [id number] [facility] 2024-08-19 13:00:00 2024-08-19 13:00:00 Outpatient NORMAN NGUYEN [facility] [id number] [facility] 2024-08-19 13:00:00 2024-08-19 13:00:00 Office Visit NORMAN NGUYEN [facility] MEDICAL OFFICE BUILDING 1.84.114 350.1.13.10 4.2.7.2.686 [id number] [facility] 2024-08-18 00:00:00 2024-08-19 02:03:15 Orders Only Doctor Unassigned, [place] Doctor Unassigned, [place] [facility] 1..114 350.1.13.10 4.2.7.2.686 [id number] [facility] 2024-08-18 14:30:00 2024-08-18 14:58:59 Outpatient R HAWA LEOS VIEN [facility] [id number] [facility] 2024-08-18 14:30:00 2024-08-18 14:58:59 Office Visit Hawa Leos [facility] N[facility] BUILDING 1.2.840.114 350.1.13.10 4.2.7.2.686 [id number] 134 [id number] [facility] 2024-08-16 00:00:00 2024-08-16 14:17:35 Prep for Procedure [facility] Leos [facility] 1.2840.114 350.1.13.10 4.2.7.2.686 [id number] 134 [id number] [facility] 2024-08-16 13:00:00 2024-08-16 13:32:47 Outpatient R HAWA LEOS VIEN [facility] [id number] [facility] 2024-08-16 13:00:00 2024-08-16 13:32:47 Routine Visit Hawa Leos [facility] 1.2840.114 350.1.13.10 4.2.7.2.686 [id number] 134 [id number] [facility] 2024-08-12 00:00:00 2024-08-12 14:44:38 Telephone Pcp, Patient Does Not Have A ELDA BUILDING 1.2840.114 350.1.13.10 4.2.7.2.686 [id number] [facility] 2024-08-04 00:00:00 2024-08-11 20:21:00 Telephone Brandon Espinoza H BUILDING 1.2840.114 350.1.13.10 4.2.7.2.686 [id number] [facility] 2024-07-26 14:30:00 2024-07-26 16:11:44 Outpatient R DEBORAH LEONG ASHLEY [facility] [id number] [facility] 2024-07-26 14:30:00 2024-07-26 16:11:44 Office Visit Deborah Leong [facility] 1.0.114 350.1.13.10 4.2.7.2.686 [id number] [facility] 2024-07-20 09:15:00 2024-07-20 09:45:00 Office Visit Roque Watts [facility] MEDICAL OFFICE BUILDING 1..114 350.1.13.10 4.2.7.2.686 [id number] [facility] 2024-07-20 09:15:00 2024-07-20 09:15:00 Outpatient R ROQUE WATTS PATRICK [facility] [id number] [facility] 2024-07-12 08:54:00 2024-07-14 15:11:00 Inpatient X ALISHA MONGE, DEBORAH YUSUFEETA [facility] MATT [id number] [facility] 2024-07-12 08:54:00 2024-07-14 15:11:00 Hospital Encounter Hawa Leos Sangeeta [facility] ([facility] 1.20.114 350.1.13.10 4.2.7.2.686 [id number] [facility] 2024-07-13 20:00:16 2024-07-13 20:00:16 Anesthesia Event Jeffry Tesfaye [facility] ([facility]) 1.2840.114 350.1.13.10 4.2.7.2.686 [id number] [facility] 2024-07-12 20:07:00 2024-07-13 00:00:00 Anesthesia Event Yumiko Vazquez William Eiji [facility] ([facility]) 1.2840.114 350.1.13.10 4.2.7.2.686 [id number] [facility] 2024-06-09 00:00:00 2024-07-10 18:15:20 Patient Secure Msg Doctor Unassigned, [place] Doctor Unassigned, [place] [facility] BUILDING 1.20.114 350.1.13.10 4.2.7.2.686 [id number] 134 [id number] [facility] 2024-07-08 15:00:00 2024-07-08 16:09:00 Outpatient R HAWA LEOS VIEN [facility] [id number] [facility] 2024-07-08 15:00:00 2024-07-08 16:09:00 Routine Visit Room, [facility] Hawa Leos Room, [facility] BUILDING 1.20.114 350.1.13.10 4.2.7.2.686 [id number] 134 [id number] [facility] 2024-07-06 00:00:00 2024-07-06 11:09:30 Case Management Hawa Leos [facility] BUILDING 1.20.114 350.1.13.10 4.2.7.2.686 [id number] 134 [id number] [facility] 2024-07-05 16:00:00 2024-07-05 16:15:00 Efficiency Miner Blasting Visit 2, [facility] Lab Hawa Leos 2, [facility] Lab [facility] BUILDING 1.20.114 350.1.13.10 4.2.7.2.686 [id number] [facility] 2024-07-05 15:00:00 2024-07-05 15:32:50 Outpatient R HAWA LEOS VIEN [facility] [id number] [facility] 2024-07-05 15:00:00 2024-07-05 15:32:50 Routine Visit Room, [facility] 1.2840.114 350.1.13.10 4.2.7.2.686 [id number] [facility] 2024-07-01 16:15:00 2024-07-01 16:15:00 Outpatient R HAWA LEOS VIEN [facility] [id number] [facility] 2024-06-30 16:45:00 2024-06-30 17:00:00 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, [facility] Lab Main Gaurav Serra Vien Cam Pob, [facility] Lab Main [facility] AT [facility] 1.840.114 350.1.13.10 4.2.7.2.686 [id number] [facility] 2024-06-30 15:00:00 2024-06-30 16:10:08 Outpatient R HAWA LEOS VIEN [facility] [id number] [facility] 2024-06-30 15:00:00 2024-06-30 16:10:08 [facility]ine [facility] 1.840.114 350.1.13.10 4.2.7.2.686 [id number] 134 [id number] [facility] 2024-06-30 00:00:00 2024-06-30 11:51:55 Telephone Hawa Leos [facility] BUILDING 1.2840.114 350.1.13.10 4.2.7.2.686 [id number] 134 [id number] [facility] 2024-06-28 15:00:00 2024-06-28 16:02:37 Outpatient R HAWA LEOS VIEN [facility] [id number] [facility] 2024-06-28 15:00:00 2024-06-28 16:02:37 Routine Visit Room, [facility] Hawa Rodriguez Cam [facility] 1.2.840.114 350.1.13.10 4.2.7.2.686 [id number] 134 [id number] [facility] 2024-06-22 15:00:00 2024-06-22 16:04:40 Outpatient R TIFFANIE ANU [facility] [id number] [facility] 2024-06-18 15:00:00 2024-06-18 15:48:39 Outpatient R TIFFANIE ANU [facility] [id number] [facility] 2024-06-16 10:00:00 2024-06-16 10:44:46 Outpatient P ESPERANZA ALLRED FARANAK [facility] [id number] [facility] 2024-06-15 15:00:00 2024-06-15 15:43:13 Outpatient R ANU MORENO [facility] [id number] [facility] 2024-06-15 13:00:00 2024-06-15 13:00:00 Outpatient R [facility] [id number] [facility] 2024-06-10 15:00:00 2024-06-10 15:46:23 Outpatient R HAWA LEOS VIEN [facility] [id number] [facility] 2024-06-10 15:00:00 2024-06-10 15:46:23 Routine Visit Room, [facility] Hawa Rodriguez Cam Room, [facility] BUILDING 1.2840.114 350.1.13.10 4.2.7.2.686 [id number] [facility] 2024-06-04 09:00:00 2024-06-04 10:27:58 Outpatient R HAWA LEOS VIEN [facility] [id number] [facility] 2024-06-04 09:00:00 2024-06-04 09:15:00 Efficiency Miner Blasting Visit 2, [facility] Lab Hawa Leos 2, Adc Lab [facility] 1.2840.114 350.1.13.10 4.2.7.2.686 [id number] [facility] 2024-06-02 15:15:00 2024-06-02 15:56:42 Outpatient R HAWA LEOS [facility] [id number] [facility] 2024-06-02 15:15:00 2024-06-02 15:56:42 Routine Visit Deric Hawa Escoto [facility] 1.840.114 350.1.13.10 4.2.7.2.686 [id number] [facility] 2024-01-14 00:00:00 2024-05-22 06:51:40 Orders Only Doctor Unassigned, [place] Doctor Unassigned, [place] [facility] ([facility] 1.840.114 350.1.13.10 4.2.7.2.686 [id number] [facility] 2021-10-09 00:00:00 2024-05-22 02:47:31 Orders Only Ru Sosa [facility] 1.2840.114 350.1.13.10 4.2.7.2.686 [id number] [facility] 2022-06-10 00:00:00 2024-05-22 02:43:08 Orders Only Philip Naranjo Trazyous S [facility] 1..840.114 350.1.13.10 4.2.7.2.686 [id number] [facility] 2024-05-21 16:30:00 2024-05-21 16:30:00 Outpatient NORMAN NGUYEN [facility] [id number] [facility] 2024-04-08 00:00:00 2024-05-15 18:22:37 Patient Secure Msg Doctor Unassigned, [place] Doctor Unassigned, [place] [facility] MEDICAL OFFICE BUILDING 1..840.114 350.1.13.10 4.2.7.2.686 [id number] [facility] 2024-05-05 16:14:00 2024-05-05 18:34:00 Outpatient X HAWA LEOS VIEN [facility] [id number] [facility] 2024-05-05 16:14:00 2024-05-05 18:34:00 Emergency Hawa Leos [facility] 1..840.114 350.1.13.10 4.2.7.2.686 [id number] [facility] 2024-05-04 15:30:00 2024-05-04 15:30:00 Outpatient HAWA BOWSER VIEN [facility] [id number] [facility] 2024-04-27 16:00:00 2024-04-27 16:00:00 Outpatient HAWA BOWSER VIEN [facility] [id number] [facility] 2024-04-22 14:00:00 2024-04-22 14:00:00 Outpatient ALISHA POE SANGEETA JAIN, SANGEETA [facility] [id number] [facility] 2024-04-05 08:30:00 2024-04-05 08:30:00 Outpatient NORMAN NGUYEN [facility] [id number] [facility] 2024-04-01 16:15:00 2024-04-01 16:15:00 Outpatient R HAWA LEOS VIEN [facility] [id number] [facility] 2024-03-22 12:15:00 2024-03-22 13:44:00 Emergency X KIA NARANJO SANDRA [facility] ERT [id number] [facility] 2024-03-22 12:15:00 2024-03-22 13:44:00 Emergency Kia Naranjo [facility] 1..114 350.1.13.10 4.2.7.2.686 [id number] [facility] 2024-03-22 00:00:00 2024-03-22 11:47:52 Telephone Hawa Leos [facility] 1.840.114 350.1.13.10 4.2.7.2.686 [id number] [facility] 2024-03-16 14:00:00 2024-03-16 14:00:00 Outpatient P [facility] [id number] [facility] 2024-03-15 14:45:00 2024-03-15 16:45:40 Outpatient R ANDRÉS MOTA ALAA [facility] [id number] [facility] 2024-03-15 14:45:00 2024-03-15 15:00:00 Office Visit Andrés Mota Wenjie [facility] ..114 350.1.13.10 4.2.7.2.686 [id number] [facility] 2024-02-06 00:00:00 2024-03-10 14:45:30 Telephone Hawa Leos [facility] 1.2.840.114 350.1.13.10 4.2.7.2.686 [id number] [facility] 2024-03-02 08:30:00 2024-03-02 08:39:35 E[employer] Blasting Visit 2, Adc Lab Leos Hawa Escoto 2, Adc Lab [facility] 1.2.840.114 350.1.13.10 4.2.7.2.686 [id number] [facility] 2024-03-02 08:00:00 2024-03-02 08:26:18 Outpatient R HAWA LEOS VIEN [facility] [id number] [facility] 2024-03-02 08:00:00 2024-03-02 08:26:18 Routine Visit Hawa Leos [facility] 1.2.840.114 350.1.13.10 4.2.7.2.686 [id number] [facility] 2024-03-01 16:15:00 2024-03-01 16:15:00 Outpatient R HAWA LEOS VIEN [facility] [id number] [facility] 2024-01-13 00:00:00 2024-02-14 18:21:30 Patient Secure Msg Doctor Unassigned, [place] Doctor Unassigned, [place] [facility] 1.2.840.114 350.1.13.10 4.2.7.2.686 [id number] [facility] 2024-01-07 00:00:00 2024-02-07 18:19:06 Patient Secure Msg Doctor Unassigned, [place] Doctor Unassigned, [place] [facility] BUILDING 1.2.840.114 350.1.13.10 4.2.7.2.686 [id number] 134 [id number] [facility] 2024-02-02 16:15:00 2024-02-02 16:15:00 Routine Visit Hawa Leos [facility] 1.2.840.114 350.1.13.10 4.2.7.2.686 [id number] 134 [id number] [facility] 2024-02-02 16:15:00 2024-02-02 16:11:33 Outpatient R HAWA LEOS VIEN [facility] [id number] [facility] 2024-01-30 15:00:00 2024-01-30 15:00:00 Outpatient R LORENZA HURST [facility] [id number] [facility] 2024-01-29 00:00:00 2024-01-30 11:39:38 Telephone Roque Watts [facility] MEDICAL OFFICE BUILDING 1..840.114 350.1.13.10 4.2.7.2.686 [id number] 196 [id number] [facility] 2024-01-28 16:00:00 2024-01-28 16:00:00 Outpatient R BRANDON ESPINOZA [facility] [id number] [facility] 2024-01-28 15:00:00 2024-01-28 15:00:00 Outpatient R MARIAN AVELAR [facility] [id number] [facility] 2024-01-23 16:00:00 2024-01-23 16:15:00 Efficiency Miner Blasting Visit Draw, Clc-Bls Lab Esperanza Allred Draw, Clc-Bls Lab [facility] MEDICAL OFFICE BUILDING 1.2.840.114 350.1.13.10 4.2.7.2.686 [id number] [facility] 2024-01-23 15:00:00 2024-01-23 16:13:03 Outpatient R ESPERANZA ALLRED FARANAK [facility] [id number] [facility] 2024-01-23 15:00:00 2024-01-23 16:13:03 Office Visit Esperanza Allred [facility] MEDICAL OFFICE BUILDING 1.2840.114 350.1.13.10 4.2.7.2.686 [id number] [facility] [id number] [facility] 2024-01-22 00:00:00 2024-01-22 16:40:12 Telephone Hawa Leos [facility] BU[facility] 1.2840.114 350.1.13.10 4.2.7.2.686 [id number] 134 [id number] [facility] 2024-01-19 07:45:00 2024-01-19 07:45:00 Outpatient LUPE BRYSON [facility] [id number] [facility] 2024-01-16 13:00:00 2024-01-16 13:00:00 Outpatient R MARIAN AVELAR WENJIE [facility] [id number] [facility] 2024-01-16 11:20:00 2024-01-16 11:20:00 Outpatient BRANDON NGUYEN [facility] [id number] [facility] 2024-01-13 00:00:00 2024-01-13 13:53:36 Telephone Hawa Leos [facility] 1.840.114 350.1.13.10 4.2.7.2.686 [id number] 134 [id number] [facility] 2024-01-09 00:00:00 2024-01-12 13:28:15 Telephone Stefanie Roque [facility] MEDICAL OFFICE BUILDING 1.2840.114 350.1.13.10 4.2.7.2.686 [id number] 196 [id number] [facility] 2023-12-06 00:00:00 2024-01-10 18:22:48 Patient Secure Msg Stefanie [facility] MEDICAL OFFICE BUILDING 1.2840.114 350.1.13.10 4.2.7.2.686 [id number] 196 [id number] [facility] 2024-01-09 00:00:00 2024-01-09 16:09:33 Telephone Hawa Leos [facility] NAL BUILDING 1.2.840.114 350.1.13.10 4.2.7.2.686 [id number] 134 [id number] [facility] 2024-01-08 15:45:00 2024-01-08 16:38:48 Outpatient R STEFANIEROQUE [facility] [id number] [facility] 2024-01-08 15:45:00 2024-01-08 16:38:48 Office Visit Roque Watts [facility] MEDICAL OFFICE BUILDING 1.2.840.114 350.1.13.10 4.2.7.2.686 [id number] 196 [id number] [facility] 2024-01-07 14:45:00 2024-01-07 14:45:00 Outpatient R [facility] [id number] [facility] 2024-01-06 00:00:00 2024-01-06 19:50:57 Case Management Hawa Leos [facility] BUILDING 1.2.840.114 350.1.13.10 4.2.7.2.686 [id number] 134 [id number] [facility] 2024-01-06 00:00:00 2024-01-06 15:42:55 Telephone Hawa Leos [facility] BUILDING 1.2.840.114 350.1.13.10 4.2.7.2.686 [id number] 134 [id number] [facility] 2024-01-06 00:00:00 2024-01-06 10:56:14 Case Management Hawa Leos [facility] BU[facility] 1.2840.114 350.1.13.10 4.2.7.2.686 [id number] 134 [id number] [facility] 2024-01-05 15:45:00 2024-01-05 15:58:50 Efficiency Miner Blasting Visit 2, Adc Lab Hawa Leos 2, Adc Lab [facility] BUILD[facility] 1.2.840.114 350.1.13.10 4.2.7.2.686 [id number] 353 [id number] [facility] 2024-01-05 14:30:00 2024-01-05 15:31:37 Outpatient R HAWA LEOS HAWA [facility] [id number] [facility] 2024-01-05 14:30:00 2024-01-05 15:31:37 Initial Visit Deric Hawa Jevon [facility] BUILD[facility] 1.2.840.114 350.1.13.10 4.2.7.2.686 [id number] 134 [id number] [facility] 2023-12-31 15:30:00 2023-12-31 15:30:00 Outpatient R LORENZA HURST [facility] [id number] [facility] 2023-12-29 00:00:00 2023-12-29 14:57:47 Telephone Hawa Leos eJvon [facility] BU[facility] 1.2.840.114 350.1.13.10 4.2.7.2.686 [id number] 134 [id number] [facility] 2023-12-24 14:45:00 2023-12-24 14:45:00 Outpatient R [facility] [id number] [facility] 2023-12-11 15:40:00 2023-12-11 15:40:00 Outpatient R BRANDON ESPINOZA [facility] [id number] [facility] 2023-04-03 00:00:00 2023-12-10 10:42:53 Letter (Out) Roque Watts [facility] MEDICAL OFFICE BUILDING 1.2.84.114 350.1.13.10 4.2.7.2.686 [id number] [facility] 2023-11-21 08:00:00 2023-11-21 08:00:00 Outpatient R LORENZA HURST [facility] [id number] [facility] 2023-03-24 00:00:00 2023-11-17 18:47:27 Letter (Out) Cherelle Bowie [facility] BUILDING 1.840.114 350.1.13.10 4.2.7.2.686 [id number] 059 [id number] [facility] 2023-09-09 00:00:00 2023-10-11 18:21:00 Patient Secure Msg Doctor Unassigned, [place] [facility] 1.84.114 350.1.13.10 4.2.7.2.686 [id number] [id number] [facility] 2023-10-07 07:15:00 2023-10-07 07:15:00 Outpatient MARTHA LICONA [facility] [id number] [facility] 2023-09-30 11:00:00 2023-09-30 12:56:11 Outpatient MARTHA LICONA [facility] [id number] [facility] 2023-09-30 11:00:00 2023-09-30 11:45:00 Ancillary Visit Consuelo Bonilla Brian A [facility] 1.84.114 350.1.13.10 4.2.7.2.686 [id number] [facility] 2023-09-23 00:00:00 2023-09-23 14:33:29 Telephone [address] Palafox [facility] MUSIC MINISTRIES DIRECTOR [facility] 1.84.114 350.1.13.10 4.2.7.2.686 [id number] 107 [id number] [facility] 2023-09-23 00:00:00 2023-09-23 09:44:39 Telephone Becki Palafoxice [facility] MUSIC MINISTRIES DIRECTOR [facility] 1.2.840.114 350.1.13.10 4.2.7.2.686 [id number] [facility] 2023-09-19 11:00:00 2023-09-19 11:45:00 Ancillary Visit Aixa Aguilar Brian A [facility] BUILD[facility] 1.2.840.114 350.1.13.10 4.2.7.2.686 [id number] 179 [id number] [facility] 2023-09-18 15:00:00 2023-09-18 15:15:00 Office Visit Roque Watts [facility] MEDICAL OFFICE BUILDING 1.2.840.114 350.1.13.10 4.2.7.2.686 [id number] 196 [id number] [facility] 2023-09-18 15:00:00 2023-09-18 15:00:00 Outpatient R ROQUE WATTS PATRICK [facility] [id number] [facility] 2023-09-17 11:00:00 2023-09-17 11:45:00 Ancillary Visit Aixa Aguilar Brian A [facility] BU[facility] 1.2.840.114 350.1.13.10 4.2.7.2.686 [id number] [facility] 2023-09-17 10:15:00 2023-09-17 11:00:00 Ancillary Visit Aixa Abraham Brian A [facility] BUILD[facility] 1.2.840.114 350.1.13.10 4.2.7.2.686 [id number] [facility] 2023-09-16 08:00:00 2023-09-16 08:45:54 Outpatient R LUPE PALAFOX [facility] [id number] [facility] 2023-09-16 08:00:00 2023-09-16 08:45:54 Office Visit BoydLupe [facility] MUSIC MINISTRIES DIRECTOR [facility] MATERNAL & [facility]ILD [facility] 1.2840.114 350.1.13.10 4.2.7.2.686 [id number] 107 [id number] [facility] 2023-08-11 00:00:00 2023-09-13 18:26:47 Patient Secure Msg Doctor Unassigned, [place] [facility] 1..114 350.1.13.10 4.2.7.2.686 [id number] 019 [id number] [facility] 2023-09-11 08:42:32 2023-09-11 23:59:00 Outpatient IESHA FITCH [facility] [id number] [facility] 2023-09-11 08:42:32 2023-09-11 23:59:00 Hospital Encounter Iesha Santoyo [facility] 1.0.114 350.1.13.10 4.2.7.2.686 [id number] [facility] 2023-09-11 00:00:00 2023-09-11 13:53:41 Telephone Iesha Santoyo [facility] 1..114 350.1.13.10 4.2.7.2.686 [id number] 181 [id number] [facility] 2023-09-10 09:30:00 2023-09-10 10:15:00 Ancillary Visit Aixa Aguilar Craig L [facility] 1.2840.114 350.1.13.10 4.2.7.2.686 [id number] [facility] 2023-09-10 09:30:00 2023-09-10 09:30:00 Outpatient R HERNANDEZGUS TRAN HERNANDEZ, GUS [facility] [id number] [facility] 2023-09-10 08:45:00 2023-09-10 09:30:00 Ancillary Visit Aixa Abraham Craig [facility] BUILDING 1.2.840.114 350.1.13.10 4.2.7.2.686 [id number] [facility] 2023-09-09 13:00:00 2023-09-09 13:00:00 Outpatient R GUS HERNANDEZ HERNANDEZ, GUS [facility] [id number] [facility] 2023-09-09 10:45:00 2023-09-09 10:45:00 Efficiency Miner Blasting Visit 2, Adc Lab Brandon Espinoza [facility] BUILDING 1.2.840.114 350.1.13.10 4.2.7.2.686 [id number] [facility] 2023-09-09 09:00:00 2023-09-09 10:28:30 Outpatient R BRANDON ESPINOZA [facility] [id number] [facility] 2023-09-09 09:00:00 2023-09-09 10:28:30 Office Visit Brandon Espinoza [facility] 1.2.840.114 350.1.13.10 4.2.7.2.686 [id number] [facility] 2023-09-04 11:00:00 2023-09-04 11:43:20 Outpatient R HERNANDEZ GUS HERNANDEZ [facility] [id number] [facility] 2023-09-04 11:00:00 2023-09-04 11:43:20 Ancillary Visit iAxa Abraham Craig L [facility] BUILDING 1.2.840.114 350.1.13.10 4.2.7.2.686 [id number] [facility] 2023-09-04 10:15:00 2023-09-04 11:00:00 Ancillary Visit Geovanna Louie Craig L [facility] BUILD[facility] 1..840.114 350.1.13.10 4.2.7.2.686 [id number] 179 [id number] [facility] 2023-09-02 14:30:00 2023-09-02 15:47:03 Outpatient R FELICITA SHIRLEY [facility] [id number] [facility] 2023-09-02 14:30:00 2023-09-02 15:47:03 [facility] 1.840.114 350.1.13.10 4.2.7.2.686 [id number] [facility] 2023-09-02 08:45:00 2023-09-02 09:30:00 Ancillary Visit Farrukh Aguilar Craig L [facility] 1..840.114 350.1.13.10 4.2.7.2.686 [id number] 179 [id number] [facility] 2023-08-29 09:00:00 2023-08-29 09:22:42 Outpatient R GEMA KINGSTON [facility] [id number] [facility] 2023-08-29 09:00:00 2023-08-29 09:22:42 Office Visit Juan Antonio Salazar Vijaya Laxmi [facility] 1.840.114 350.1.13.10 4.2.7.2.686 [id number] [id number] [facility] 2023-08-27 00:00:00 2023-08-27 10:15:08 Case Management Aixa Abraham [facility] BUILD[facility] 1.840.114 350.1.13.10 4.2.7.2.686 [id number] [facility] 2023-08-22 08:45:00 2023-08-22 09:34:27 [id number] 2023-08-22 08:45:00 2023-08-22 09:34:27 Efficiency Miner Blasting Visit Lab, Rodriguez - Celso Chalo lomeli [facility]ILDING 1.2.840.114 350.1.13.10 4.2.7.2.686 [id number] 353 [id number] [facility] 2023-08-21 10:15:00 2023-08-21 13:47:26 Outpatient R GUS HERNANDEZ [facility] [id number] [facility] 2023-08-21 10:15:00 2023-08-21 13:47:26 Ancillary Visit Alicia Kramer Craig L [facility] 1.2.840.114 350.1.13.10 4.2.7.2.686 [id number] 179 [id number] [facility] 2023-08-21 09:30:00 2023-08-21 13:33:34 Outpatient R GUS HERNANDEZ CRAIG [facility] [id number] [facility] 2023-08-21 09:30:00 2023-08-21 10:15:00 Ancillary Visit Aixa Abraham Craig L [facility] 1.2.840.114 350.1.13.10 4.2.7.2.686 [id number] [facility] 2023-08-20 13:30:00 2023-08-20 13:55:21 [facility] [id number] [facility] 2023-08-20 13:30:00 2023-08-20 13:55:21 Office Visit Lorenza Hurst [facility] 1.20.114 350.1.13.10 4.2.7.2.686 [id number] [facility] 2023-08-15 14:15:00 2023-08-15 15:47:18 Outpatient R ANDRÉS MOTA ALAA [facility] [id number] [facility] 2023-08-15 14:15:00 2023-08-15 15:47:18 Office Visit Andrés Mota Wenjie [facility] 1..114 350.1.13.10 4.2.7.2.686 [id number] [facility] 2023-08-14 13:00:00 2023-08-14 15:02:07 Ancillary Visit Aixa Abraham Craig L [facility] NAL BUILDING 1..114 350.1.13.10 4.2.7.2.686 [id number] [facility] 2023-08-07 12:45:00 2023-08-07 13:33:31 Outpatient R ROQUE WATTS PATR[facility] [id number] [facility] 2023-08-07 12:45:00 2023-08-07 13:33:31 Office Visit Roque Watts [facility] MEDICAL OFFICE BUILDING 1.84.114 350.1.13.10 4.2.7.2.686 [id number] [facility] 2023-07-28 00:00:00 2023-07-28 00:00:00 Telephone Roque Watts [facility] MEDICAL OFFICE BUILDING 1.2.114 350.1.13.10 4.2.7.2.686 [id number] 196 [id number] [facility] 2023-07-28 00:00:00 2023-07-28 00:00:00 Patient Secure Msg Stefanie [facility] MEDICAL OFFICE BUILDING 1.2.840.114 350.1.13.10 4.2.7.2.686 [id number] 196 [id number] [facility] 2023-07-17 16:15:00 2023-07-17 16:30:00 Office Visit Stefanie [facility] MEDICAL OFFICE BUILDING 1.2840.114 350.1.13.10 4.2.7.2.686 [id number] 196 [id number] [facility] 2023-07-17 16:15:00 2023-07-17 16:15:00 Outpatient ROQUE EPPS [facility] [id number] [facility] 2023-07-07 05:16:00 2023-07-12 16:00:00 [facility] [id number] [facility] 2023-07-07 05:16:00 2023-07-12 16:00:00 Hospital Encounter [facility]que [facility] [facility] 1.2840.114 350.1.13.10 4.2.7.2.686 [id number] [facility] 2023-07-07 07:34:00 2023-07-07 20:50:00 Anesthesia Event Mariaa Sutton Walter [facility] ([employer] [facility]) 1.2.840.114 350.1.13.10 4.2.7.2.686 [id number] [id number] [facility] 2023-07-07 06:55:00 2023-07-07 16:40:00 Surgery [facility] ([employer]) 1.2.840.114 350.1.13.10 4.2.7.2.686 [id number] [id number] [facility] 2023-07-04 15:45:00 2023-07-04 16:04:12 Outpatient R [facility] [id number] [facility] 2023-07-04 15:45:00 2023-07-04 16:00:00 Efficiency Miner Blasting Visit 2, Adc Lab [facility] 1.2.840.114 350.1.13.10 4.2.7.2.686 [id number] [facility] 2023-06-30 00:00:00 2023-06-30 00:00:00 [facility] [facility] 1.2.840.114 350.1.13.10 4.2.7.2.686 [id number] [id number] [facility] 2023-06-24 00:00:00 2023-06-24 00:00:00 Patient Secure [facility] [facility] 1.2.840.114 350.1.13.10 4.2.7.2.686 [id number] [facility] 2023-06-23 08:30:00 2023-06-23 08:38:17 Outpatient R ABIEL [facility] [id number] [facility] 2023-06-23 08:30:00 2023-06-23 08:38:17 Office Visit Abiel [facility] MEDICAL OFFICE BUILDING 1.2.840.114 350.1.13.10 4.2.7.2.686 [id number] [id number] [facility] 2023-06-23 00:00:00 2023-06-23 00:00:00 Letter (Out) Abiel, Sinju [facility] MEDICAL OFFICE BUILDING 1.2.840.114 350.1.13.10 4.2.7.2.686 [id number] [facility] 2023-06-20 15:40:00 2023-06-20 15:40:00 Outpatient R MIKALAINYABRANDON ESPINAL [facility] [id number] [facility] 2023-06-19 00:00:00 2023-06-19 00:00:00 Telephone Stefanie [facility] MEDICAL OFFICE BUILDING 1.2.840.114 350.1.13.10 4.2.7.2.686 [id number] 196 [id number] [facility] 2023-06-11 00:00:00 2023-06-11 00:00:00 Telephone Stefanie [facility] MEDICAL OFFICE BUILDING 1.2.840.114 350.1.13.10 4.2.7.2.686 [id number] [facility] 2023-06-02 07:59:45 2023-06-02 23:59:00 Outpatient R SHANTAL SHEETS [facility] [id number] [facility] 2023-06-02 07:59:45 2023-06-02 23:59:00 Hospital Encounter Shantal Sheets [facility] ([facility]) 1.2.840.114 350.1.13.10 4.2.7.2.686 [id number] [facility] 2023-05-30 08:30:00 2023-05-30 08:30:00 Outpatient R RAZ GOMEZ [facility] [id number] [facility] 2023-05-29 08:41:45 2023-05-29 23:59:00 Outpatient R LORENZA HURST [facility] [id number] [facility] 2023-05-29 08:41:45 2023-05-29 23:59:00 Hospital Encounter Lorenza Hurst [facility] 1.2.840.114 350.1.13.10 4.2.7.2.686 [id number] [facility] 2023-05-27 00:00:00 2023-05-27 00:00:00 Telephone Roque Watts [facility] MEDICAL OFFICE BUILDING 1.2.840.114 350.1.13.10 4.2.7.2.686 [id number] 196 [id number] [facility] 2023-05-23 00:00:00 2023-05-23 00:00:00 Telephone Brandon Espinoza [facility] N[facility] BUILDING 1.2.840.114 350.1.13.10 4.2.7.2.686 [id number] [id number] [facility] 2023-05-21 16:00:00 2023-05-21 16:30:00 Office Visit Chalo lomeli [facility] 1.2.840.114 350.1.13.10 4.2.7.2.686 [id number] [id number] [facility] 2023-05-21 16:00:00 2023-05-21 16:00:00 [facility] [id number] [facility] 2023-05-20 11:15:00 2023-05-20 11:30:00 Efficiency Miner Blasting Visit Draw, Clc-Bls Lab Stefanie Roque [facility] MEDICAL OFFICE BUILDING 1.2.840.114 350.1.13.10 4.2.7.2.686 [id number] [facility] 2023-05-20 10:00:00 2023-05-20 11:11:05 Outpatient R ROQUE WATTS [facility] [id number] [facility] 2023-05-20 10:00:00 2023-05-20 11:11:05 Office Visit Roque Watts [facility] MEDICAL OFFICE BUILDING 1.2.840.114 350.1.13.10 4.2.7.2.686 [id number] [facility] 2023-05-20 09:00:00 2023-05-20 09:15:00 Efficiency Miner Blasting Visit 2, Adc Lab Brandon Espinoza [facility] NAL BUILDING 1.2.840.114 350.1.13.10 4.2.7.2.686 [id number] [facility] 2023-05-20 00:00:00 2023-05-20 00:00:00 [facility] 1.2.840.114 350.1.13.10 4.2.7.2.686 [id number] [facility] 2023-05-19 13:30:00 2023-05-19 13:52:07 Efficiency Miner Blasting Visit 2, Adc Lab Gunnar Maddoxssica [facility] BUILD[facility] 1.2.840.114 350.1.13.10 4.2.7.2.686 [id number] [facility] 2023-05-19 13:00:00 2023-05-19 13:28:08 Outpatient R DULCE MARIA MADDOX [facility] [id number] [facility] 2023-05-19 13:00:00 2023-05-19 13:28:08 Office Visit MaddoxMarlynDulce Maria [facility] 1.2.840.114 350.1.13.10 4.2.7.2.686 [id number] [facility] 2023-05-19 00:00:00 2023-05-19 00:00:00 Telephone Roque Watts [facility] 1.2.840.114 350.1.13.10 4.2.7.2.686 [id number] [facility] 2023-05-19 00:00:00 2023-05-19 00:00:00 Letter (Out) Dulce Maria Maddox [facility] 1.2.840.114 350.1.13.10 4.2.7.2.686 [id number] [facility] 2023-05-17 10:08:00 2023-05-17 14:58:00 Emergency X FABIANA KEANE [facility] ERT [id number] [facility] 2023-05-17 10:08:00 2023-05-17 14:58:00 Emergency Fabiana Keane G [facility] 1.2.840.114 350.1.13.10 4.2.7.2.686 [id number] [facility] 2023-04-24 00:00:00 2023-04-24 00:00:00 Telephone [facility]herelle [facility] 1.2.840.114 350.1.13.10 4.2.7.2.686 [id number] [facility] 2023-04-23 08:59:14 2023-04-23 23:59:00 Outpatient R CHERELLE BOWIE [facility] [id number] [facility] 2023-04-23 08:59:14 2023-04-23 23:59:00 [facility] 1.2.840.114 350.1.13.10 4.2.7.2.686 [id number] [facility] 2023-04-03 11:20:00 2023-04-03 15:12:16 Outpatient R ROQUE WATTS PATRICK [facility] [id number] [facility] 2023-04-03 11:20:00 2023-04-03 15:12:16 Office Visit Roque Watts [facility] 1.284.114 350.1.13.10 4.2.7.2.686 [id number] [facility] 2023-03-24 08:00:00 2023-03-24 08:30:00 Office Visit Cherelle Bowie [facility] 1.2.114 350.1.13.10 4.2.7.2.686 [id number] [facility] 2023-03-24 08:00:00 2023-03-24 08:00:00 Outpatient R CHERELLE BOWIE [facility] [id number] [facility] 2023-03-21 00:00:00 2023-03-21 00:00:00 Telephone Raz Gomez [facility] 1.84.114 350.1.13.10 4.2.7.2.686 [id number] [facility] 2023-03-20 08:14:19 2023-03-20 23:59:00 Outpatient R RU SOSA [facility] [id number] [facility] 2023-03-20 08:14:19 2023-03-20 23:59:00 Hospital Encounter Ru Sosa [facility] 1.284.114 350.1.13.10 4.2.7.2.686 [id number] [facility] 2023-03-19 16:00:00 2023-03-19 16:44:05 Outpatient R BRANDON ESPINOZA [facility] [id number] [facility] 2023-03-19 16:00:00 2023-03-19 16:44:05 Office Visit Brandon [facility]ino[facility] 1.284.114 350.1.13.10 4.2.7.2.686 [id number] [facility] 2023-03-19 00:00:00 2023-03-19 00:00:00 Letter (Out) Brandon Espinoza [facility] 1.2.840.114 350.1.13.10 4.2.7.2.686 [id number] [facility] 2023-03-07 16:00:00 2023-03-07 16:00:00 Outpatient R DULCE MARIA MADDOX [facility] [id number] [facility] 2023-01-29 00:00:00 2023-01-29 00:00:00 Patient Secure Roque Quinn [facility] 1..840.114 350.1.13.10 4.2.7.2.686 [id number] [facility] 2023-01-01 06:45:00 2023-01-01 07:54:05 Outpatient R ELLA MORENO [facility] [id number] [facility] 2023-01-01 06:45:00 2023-01-01 07:54:05 Office Visit Ella Moreno [facility] MUSIC MINISTRIES DIRECTOR [facility] MATERNAL & CHILD [facility] 1.840.114 350.1.13.10 4.2.7.2.686 [id number] [facility] 2022-12-27 08:30:00 2022-12-27 09:26:28 Outpatient R RAZ GOMEZ [facility] [id number] [facility] 2022-12-27 08:30:00 2022-12-27 09:26:28 Office Visit Raz Gomez [facility] PAVILLION 1.840.114 350.1.13.10 4.2.7.2.686 [id number] [facility] 2022-12-02 10:00:00 2022-12-02 10:15:00 Routine Visit Lorena Naranjo [facility] MUSIC MINISTRIES DIRECTOR [facility] MATERNAL & CHILD [facility] 1.840.114 350.1.13.10 4.2.7.2.686 [id number] [facility] 2022-12-02 10:00:00 2022-12-02 10:00:00 Outpatient R LORENA NARANJO [facility] [id number] [facility] 2022-11-08 18:29:00 2022-11-10 14:06:00 [facility] [id number] [facility] 2022-11-08 18:29:00 2022-11-10 14:06:00 Hospital Encounter [facility] 1.840.114 350.1.13.10 4.2.7.2.686 [id number] [facility] 2022-11-09 01:22:00 2022-11-09 10:04:00 Anesthesia Event James Veloz Fernando [facility] 1.0.114 350.1.13.10 4.2.7.2.686 [id number] [facility] 2022-11-08 00:00:00 2022-11-08 00:00:00 Telephone Arturo Bowen [facility] MUSIC MINISTRIES DIRECTOR [facility] MATERNAL & CHILD [facility] 1..840.114 350.1.13.10 4.2.7.2.686 [id number] [facility] 2022-11-08 00:00:00 2022-11-08 00:00:00 Orders Only Doctor Unassigned, [place] [facility] 1.2.840.114 350.1.13.10 4.2.7.2.686 [id number] [facility] 2022-11-07 08:30:00 2022-11-07 08:30:00 Outpatient R [facility] [id number] [facility] 2022-11-05 10:15:00 2022-11-05 11:32:22 Outpatient R ARTURO BOWEN [facility] [id number] [facility] 2022-11-05 10:15:00 2022-11-05 11:32:22 Routine Visit Risk, Pea-Rmchp Provider/Hi gh Arturo Bowen [facility] MUSIC MINISTRIES DIRECTOR [facility] MATERNAL & CHILD HEALTH [facility] 1.2.840.114 350.1.13.10 4.2.7.2.686 [id number] [facility] 2022-11-05 00:00:00 2022-11-05 00:00:00 Letter (Out) Arturo Bowen [facility] MUSIC MINISTRIES DIRECTOR [facility] MATERNAL & CHILD [facility] 1.2.840.114 350.1.13.10 4.2.7.2.686 [id number] [facility] 2022-11-04 00:00:00 2022-11-04 00:00:00 Telephone Lorena Naranjo [facility] MUSIC MINISTRIES DIRECTOR [facility] MATERNAL & CHILD [facility] 1.2.840.114 350.1.13.10 4.2.7.2.686 [id number] [facility] 2022-10-31 14:00:00 2022-10-31 14:30:49 Outpatient R LORENA NARANJO [facility] [id number] [facility] 2022-10-31 14:00:00 2022-10-31 14:30:49 Routine Visit Lorena Naranjo [facility] MUSIC MINISTRIES DIRECTOR [facility] & CHILD [facility] 1.2.840.114 350.1.13.10 4.2.7.2.686 [id number] [facility] 2022-10-31 00:00:00 2022-10-31 00:00:00 Letter (Out) Lorena Naranjo [facility] MUSIC MINISTRIES DIRECTOR [facility] MATERNAL & CHILD [facility] 1.2.840.114 350.1.13.10 4.2.7.2.686 [id number] [facility] 2022-10-22 09:45:00 2022-10-22 10:43:59 Outpatient R ARTURO BOWEN [facility] [id number] [facility] 2022-10-22 00:00:00 2022-10-22 00:00:00 Letter (Out) Arturo Bowen [facility] MUSIC MINISTRIES DIRECTOR [facility] MATERNAL & CHILD [facility] 1.2.840.114 350.1.13.10 4.2.7.2.686 [id number] [facility] 2022-10-17 16:15:00 2022-10-17 16:15:00 Outpatient R BRANDON ESPINOZA [facility] [id number] [facility] 2022-10-16 15:02:00 2022-10-16 19:17:00 Outpatient X DERIC HAWA [facility] MATT [id number] [facility] 2022-10-16 15:02:00 2022-10-16 19:17:00 Emergency Hawa Leos [facility] 1.840.114 350.1.13.10 4.2.7.2.686 [id number] [facility] 2022-10-15 08:20:00 2022-10-15 08:40:00 Office Visit Roque Watts [facility] MEDICAL OFFICE BUILDING 1.2.84.114 350.1.13.10 4.2.7.2.686 [id number] [facility] 2022-10-15 08:20:00 2022-10-15 08:20:00 Outpatient R ROQUE WATTS PATRICK [facility] [id number] [facility] 2022-10-11 10:42:00 2022-10-11 19:30:00 Outpatient P RAFAELA FLORES [facility] MATT [id number] [facility] 2022-10-11 10:42:00 2022-10-11 19:30:00 Hospital Encounter Rafaela Flores [facility] 1.2.840.114 350.1.13.10 4.2.7.2.686 [id number] [facility] 2022-10-02 00:00:00 2022-10-02 00:00:00 Telephone Arturo Bowen [facility] MUSIC MINISTRIES DIRECTOR [facility] MATERNAL & CHILD [facility]ALTH [facility] 1.2.840.114 350.1.13.10 4.2.7.2.686 [id number] [facility] 2022-09-24 08:30:00 2022-09-24 09:42:03 Outpatient R ARTURO BOWEN [facility] [id number] [facility] 2022-09-24 08:30:00 2022-09-24 09:42:03 Routine Visit Risk, Pea-Rmchp Provider/Hi gh Arturo Bowen [facility] MUSIC MINISTRIES DIRECTOR [facility] MATERNAL & CHILD [facility]ALTH [facility] 1.2.840.114 350.1.13.10 4.2.7.2.686 [id number] [facility] 2022-09-24 00:00:00 2022-09-24 00:00:00 Letter (Out) Arturo Bowen [facility] MUSIC MINISTRIES DIRECTOR [facility] MATERNAL & CHILD HEALTH [facility] 1.2.840.114 350.1.13.10 4.2.7.2.686 [id number] [facility] 2022-09-10 08:15:00 2022-09-10 08:43:05 Outpatient R ARTURO BOWEN [facility] [id number] [facility] 2022-09-10 08:15:00 2022-09-10 08:43:05 Routine Visit Risk, Pea-Rmchp Provider/Hi gh Arturo Bowen [facility] MUSIC MINISTRIES DIRECTOR [facility] MATERNAL & CHILD HEALTH [facility] 1.2.840.114 350.1.13.10 4.2.7.2.686 [id number] [facility] 2022-09-05 15:15:00 2022-09-05 16:37:17 Outpatient R SARAH SANTANA [facility] [id number] [facility] 2022-09-05 15:15:00 2022-09-05 16:37:17 Routine Visit Sarah Santana [facility] MUSIC MINISTRIES DIRECTOR [facility] MATERNAL & CHILD [facility]ALTH [facility] 1.2.840.114 350.1.13.10 4.2.7.2.686 [id number] [facility] 2022-09-05 00:00:00 2022-09-05 00:00:00 Letter (Out) Sarah Santana [facility] MUSIC MINISTRIES DIRECTOR [facility] MATERNAL & CHILD [facility] 1.2840.114 350.1.13.10 4.2.7.2.686 [id number] [facility] 2022-09-03 00:00:00 2022-09-03 00:00:00 Nurse Triage Arturo Bowen [facility] MUSIC MINISTRIES DIRECTOR [facility] MATERNAL & CHILD [facility] 1.2840.114 350.1.13.10 4.2.7.2.686 [id number] [facility] 2022-08-28 08:00:00 2022-08-28 09:13:13 Outpatient R ARTURO BOWEN [facility] [id number] [facility] 2022-08-28 08:00:00 2022-08-28 09:13:13 Efficiency Miner Blasting Visit Lab, Pea-Rmchp Arturo Bowen [facility] MUSIC MINISTRIES DIRECTOR [facility] & CHILD [facility] 1.2.840.114 350.1.13.10 4.2.7.2.686 [id number] [facility] 2022-08-28 00:00:00 2022-08-28 00:00:00 Letter (Out) Visit, Nurse [facility] MUSIC MINISTRIES DIRECTOR [facility] MATERNAL & CHILD [facility] 1..840.114 350.1.13.10 4.2.7.2.686 [id number] [facility] 2022-08-23 08:45:00 2022-08-23 09:37:36 Outpatient ARTURO EPSTEIN [facility] [id number] [facility] 2022-08-23 08:45:00 2022-08-23 09:37:36 Routine Visit Risk, Pea-Rmchp Provider/Hi Arturo Vang [facility] MUSIC MINISTRIES DIRECTOR [facility] & CHILD [facility] 1.840.114 350.1.13.10 4.2.7.2.686 [id number] [facility] 2022-08-20 00:00:00 2022-08-20 00:00:00 Telephone Hellen Davidson [facility] MUSIC MINISTRIES DIRECTOR [facility] & CHILD [facility] 1.840.114 350.1.13.10 4.2.7.2.686 [id number] [facility] 2022-07-29 09:45:00 2022-07-29 10:09:04 Outpatient ADAN CARTY COREY [facility] [id number] [facility] 2022-07-29 09:45:00 2022-07-29 10:09:04 Routine Visit Risk, Pas-Rmchp Physician/H Adan James [facility] MUSIC MINISTRIES DIRECTOR [facility] 1..840.114 350.1.13.10 4.2.7.2.686 [id number] [facility] 2022-07-29 00:00:00 2022-07-29 00:00:00 Letter (Out) Lenny Dennison [facility] MUSIC MINISTRIES DIRECTOR [facility] MATERNAL & CHILD [facility] 1.2.840.114 350.1.13.10 4.2.7.2.686 [id number] [facility] 2022-07-29 00:00:00 2022-07-29 00:00:00 Abstract Lorena Naranjo [facility] MUSIC MINISTRIES DIRECTOR [facility] MATERNAL & CHILD HEALTH [facility] 1..840.114 350.1.13.10 4.2.7.2.686 [id number] [facility] 2022-07-25 09:30:00 2022-07-25 10:41:19 Efficiency Miner Blasting Visit 1, [facility] Room Nelsy Sims [facility] MUSIC MINISTRIES DIRECTOR [facility] MATERNAL & CHILD HEALTH [facility] 1.840.114 350.1.13.10 4.2.7.2.686 [id number] [facility] 2022-07-25 09:30:00 2022-07-25 09:30:00 Outpatient P NELSY SIMS [facility] [id number] [facility] 2022-07-16 10:15:00 2022-07-16 11:12:47 Outpatient R ARTURO BOWEN [facility] [id number] [facility] 2022-07-16 10:15:00 2022-07-16 11:12:47 Routine Visit Risk, [facility] Provider/Hi gh Arturo Bowen [facility] MUSIC MINISTRIES DIRECTOR [facility] MATERNAL & CHILD HEALTH [facility] 1..840.114 350.1.13.10 4.2.7.2.686 [id number] [facility] 2022-07-10 00:00:00 2022-07-10 00:00:00 Letter (Out) Lenny Amaya [facility] 1.2.840.114 350.1.13.10 4.2.7.2.686 [id number] [facility] 2022-07-08 17:00:00 2022-07-08 17:37:33 Outpatient R VIRIDIANA BLOUNT [facility] [id number] [facility] 2022-07-08 17:00:00 2022-07-08 17:37:33 Urgent Care Viridiana Blount Unknown, Attending [facility] 1.840.114 350.1.13.10 4.2.7.2.686 [id number] [facility] 2022-07-08 10:00:00 2022-07-08 10:00:00 Outpatient DEE DREW [facility] [id number] [facility] 2022-07-08 00:00:00 2022-07-08 00:00:00 Orders Only Doctor Unassigned, [place] [facility] 1.840.114 350.1.13.10 4.2.7.2.686 [id number] [facility] 2022-06-25 09:15:00 2022-06-25 09:35:55 Outpatient LENNY JOAQUIN [facility] [id number] [facility] 2022-06-25 09:15:00 2022-06-25 09:35:55 Routine Visit Risk, Pea-Rmchp Provider/Hi gh Arturo Bowen [facility] MUSIC MINISTRIES DIRECTOR [facility] MATERNAL & CHILD [facility] 1..840.114 350.1.13.10 4.2.7.2.686 [id number] [facility] 2022-06-21 08:30:00 2022-06-21 09:14:57 Outpatient R RAZ GOMEZ [facility] [id number] [facility] 2022-06-21 08:30:00 2022-06-21 09:14:57 Office Visit Raz Gomez [facility] PRIMARY CARE PAVILLION 1.2.840.114 350.1.13.10 4.2.7.2.686 [id number] [facility] 2022-06-21 00:00:00 2022-06-21 00:00:00 Letter (Out) Raz Gomez [facility]AVILLION 1.2.840.114 350.1.13.10 4.2.7.2.686 [id number] [facility] 2022-06-17 00:00:00 2022-06-17 00:00:00 Patient Secure Msg DennisonMamtaclaudia watsonJuan Antonio [facility] PAVYAELON 1.2.840.114 350.1.13.10 4.2.7.2.686 [id number] [facility] 2022-06-15 00:00:00 2022-06-15 00:00:00 Telephone Hellen Davidson [facility] MUSIC MINISTRIES DIRECTOR [facility] MATERNAL & CHILD HEALTH [facility] 1.2840.114 350.1.13.10 4.2.7.2.686 [id number] [facility] 2022-06-13 07:40:00 2022-06-13 08:16:43 Outpatient R ROQUE WATTS PATRICK [facility] [id number] [facility] 2022-06-13 07:40:00 2022-06-13 08:16:43 Office Visit Roque Watts [facility] MEDICAL OFFICE BUILDING 1.2840.114 350.1.13.10 4.2.7.2.686 [id number] [facility] 2022-06-12 08:30:00 2022-06-12 09:47:25 Outpatient R HELLEN DAVIDSON JORDYN [facility] [id number] [facility] 2022-06-12 08:30:00 2022-06-12 09:47:25 Initial Visit Hellen Davidson [facility] MUSIC MINISTRIES DIRECTOR [facility] MATERNAL & CHILD [facility]ALTH [facility] 1.2.840.114 350.1.13.10 4.2.7.2.686 [id number] [facility] 2022-06-10 09:45:00 2022-06-10 09:45:09 Outpatient R ELLA MORENO [facility] [id number] [facility] 2022-06-10 00:00:00 2022-06-10 00:00:00 Letter (Out) Ella Moreno [facility] MUSIC MINISTRIES DIRECTOR [facility] MATERNAL & CHILD [facility] 1.2840.114 350.1.13.10 4.2.7.2.686 [id number] [facility] 2022-06-06 08:45:00 2022-06-06 09:00:00 Efficiency Miner Blasting Visit Pcp-Isaak Cooper [facility] PRIMARY CARE PAVILLION 1.2840.114 350.1.13.10 4.2.7.2.686 [id number] [facility] 2022-06-06 08:00:00 2022-06-06 08:45:30 Outpatient R ISAAK REID [facility] [id number] [facility] 2022-06-06 08:00:00 2022-06-06 08:45:30 Office Visit Juan Antonio Salazar Emilio B [facility] PRIMARY CARE PAVILLION 1.2840.114 350.1.13.10 4.2.7.2.686 [id number] [facility] 2022-06-06 00:00:00 2022-06-06 00:00:00 Letter (Out) Juan Antonio Salazar [facility] PR[facility] CARE PAVILLION 1.2840.114 350.1.13.10 4.2.7.2.686 [id number] [facility] 2022-06-06 00:00:00 2022-06-06 00:00:00 Telephone Roque Watts [facility] 1.2.840.114 350.1.13.10 4.2.7.2.686 [id number] [facility] 2022-06-05 00:00:00 2022-06-05 00:00:00 Patient Secure Msg Doctor Unassigned, [place] [facility] OFF[facility] 1.2.840.114 350.1.13.10 4.2.7.2.686 [id number] [facility] 2022-05-22 00:00:00 2022-05-22 00:00:00 Telephone Hawa Leos Jevon [facility] 1.2.840.114 350.1.13.10 4.2.7.2.686 [id number] [facility] 2022-05-13 09:15:00 2022-05-13 09:30:00 Efficiency Miner Blasting Visit 2, Adc Lab Sharan Lucinda [facility] BUILD[facility] 1.2.840.114 350.1.13.10 4.2.7.2.686 [id number] [facility] 2022-05-13 08:00:00 2022-05-13 08:54:13 Outpatient R LUCINDA SANCHEZ [facility] [id number] [facility] 2022-05-13 08:00:00 2022-05-13 08:15:00 Routine Visit Lucinda Sanchez [facility] 1.2.840.114 350.1.13.10 4.2.7.2.686 [id number] [facility] 2022-05-13 00:00:00 2022-05-13 00:00:00 Letter (Out) Lucinda Sanchez [facility] 1..840.114 350.1.13.10 4.2.7.2.686 [id number] [facility] 2022-05-09 10:00:00 2022-05-09 23:59:00 Outpatient R OFELIAMarisol RAZ [facility] [id number] [facility] 2022-05-09 08:00:00 2022-05-09 23:59:00 [facility] 1.2.840.114 350.1.13.10 4.2.7.2.686 [id number] [facility] 2022-05-03 00:00:00 2022-05-03 00:00:00 Telephone Rosemary [facility] PRIMARY CARE PAVILLION 1..840.114 350.1.13.10 4.2.7.2.686 [id number] [facility] 2022-04-30 00:00:00 2022-04-30 00:00:00 Patient Secure Msg Doctor Unassigned, [place] [facility] 1.2.840.114 350.1.13.10 4.2.7.2.686 [id number] [facility] 2022-04-29 15:30:00 2022-04-29 16:07:50 Outpatient BRYAN URBINA SHANNON [facility] [id number] [facility] 2022-04-29 15:30:00 2022-04-29 16:07:50 Office Visit Faculty, Rodriguez Bryan Simmons [facility] MUSIC MINISTRIES DIRECTOR [facility] MATERNAL & CHILD [facility] 1.2.840.114 350.1.13.10 4.2.7.2.686 [id number] [facility] 2022-04-29 00:00:00 2022-04-29 00:00:00 Telephone Bryan Manuel [facility] 1.2840.114 350.1.13.10 4.2.7.2.686 [id number] [facility] 2022-04-26 00:00:00 2022-04-26 00:00:00 Orders Only Doctor Unassigned, [place] [facility] 1.2.840.114 350.1.13.10 4.2.7.2.686 [id number] [facility] 2022-04-24 00:00:00 2022-04-24 00:00:00 Telephone Hawa [facility] 1.2.840.114 350.1.13.10 4.2.7.2.686 [id number] [facility] 2022-04-23 08:30:00 2022-04-23 08:44:35 Outpatient R EVELIN DICKERSON [facility] [id number] [facility] 2022-04-23 08:30:00 2022-04-23 08:44:35 Office Visit Evelin Dickerson [facility] 1.2.840.114 350.1.13.10 4.2.7.2.686 [id number] [facility] 2022-04-23 00:00:00 2022-04-23 00:00:00 Letter (Out) Evelin Dickerson [facility] 1.2840.114 350.1.13.10 4.2.7.2.686 [id number] [facility] 2022-04-19 15:30:00 2022-04-19 15:30:00 Outpatient R EVELIN DICKERSON [facility] [id number] [facility] 2022-04-15 08:00:00 2022-04-15 09:27:52 Outpatient R HAWA LEOS [facility] [id number] [facility] 2022-04-15 08:00:00 2022-04-15 09:27:52 Routine Visit Hawa Leos [facility] BUILDING 1.2.840.114 350.1.13.10 4.2.7.2.686 [id number] [facility] 2022-04-15 00:00:00 2022-04-15 00:00:00 Orders Only Doctor Unassigned, [place] [facility] 1.2.840.114 350.1.13.10 4.2.7.2.686 [id number] [facility] 2022-04-15 00:00:00 2022-04-15 00:00:00 Letter (Out) Hawa Leos [facility] 1.2.840.114 350.1.13.10 4.2.7.2.686 [id number] [facility] 2022-04-15 00:00:00 2022-04-15 00:00:00 [facility] 1.2.840.114 350.1.13.10 4.2.7.2.686 [id number] [facility] 2022-04-11 08:15:00 2022-04-11 08:30:00 Efficiency Miner Blasting Visit 2, Adc Lab Sharan Lucinda [facility] 1.2.840.114 350.1.13.10 4.2.7.2.686 [id number] [facility] 2022-04-11 08:15:00 2022-04-11 08:15:00 Outpatient LUCINDA MORRIS [facility] [id number] [facility] 2022-04-09 14:45:00 2022-04-09 15:56:36 Outpatient LUCINDA MORRIS [facility] [id number] [facility] 2022-04-09 14:45:00 2022-04-09 15:56:36 Office Visit Lucinda Sanchez [facility] 1.2.840.114 350.1.13.10 4.2.7.2.686 [id number] 134 [id number] [facility] 2022-04-02 00:00:00 2022-04-02 00:00:00 Patient Secure Msg Stefanie [facility] 1.2.840.114 350.1.13.10 4.2.7.2.686 [id number] [facility] 2022-03-25 00:00:00 2022-03-25 00:00:00 Telephone Stefanie [facility] 1.2.840.114 350.1.13.10 4.2.7.2.686 [id number] [facility] 2022-03-22 16:30:00 2022-03-22 16:45:00 Efficiency Miner Blasting Visit Pcp-Lab Raz Gomez [facility] 1..840.114 350.1.13.10 4.2.7.2.686 [id number] [facility] 2022-03-22 15:00:00 2022-03-22 16:14:54 Outpatient R RAZ GOMEZ [facility] [id number] [facility] 2022-03-22 15:00:00 2022-03-22 16:14:54 Office Visit Raz Gomez [facility] 1.2.840.114 350.1.13.10 4.2.7.2.686 [id number] [facility] 2022-03-22 00:00:00 2022-03-22 00:00:00 Letter (Out) Raz Goemz [facility] 1.2.840.114 350.1.13.10 4.2.7.2.686 [id number] [facility] 2022-03-14 00:00:00 2022-03-14 00:00:00 Telephone Evelin Dickerson [facility] 1.2.840.114 350.1.13.10 4.2.7.2.686 [id number] [facility] 2022-03-06 15:00:00 2022-03-06 15:44:36 Outpatient R EVELIN DICKERSON [facility] [id number] [facility] 2022-03-06 15:00:00 2022-03-06 15:44:36 [facility] 1.2.840.114 350.1.13.10 4.2.7.2.686 [id number] [facility] 2022-03-06 00:00:00 2022-03-06 00:00:00 Orders Only Doctor Unassigned, [place] [facility] 1.2.840.114 350.1.13.10 4.2.7.2.686 [id number] [facility] 2022-02-25 00:00:00 2022-02-25 00:00:00 Patient Secure Msg [facility] 1.2.840.114 350.1.13.10 4.2.7.2.686 [id number] [facility] 2022-02-22 16:00:00 2022-02-22 16:27:25 Outpatient R GIGI BENITEZ OGECHUKWU [facility] [id number] [facility] 2022-02-22 16:00:00 2022-02-22 16:27:25 Office Visit Erika Benitezwu [facility] 1..840.114 350.1.13.10 4.2.7.2.686 [id number] [facility] 2022-02-13 00:00:00 2022-02-13 00:00:00 Case Management Evelin Dickerson [facility] 1.2840.114 350.1.13.10 4.2.7.2.686 [id number] [facility] 2022-02-12 08:30:00 2022-02-12 09:38:36 Outpatient R ROQUE WATTS [facility] [id number] [facility] 2022-02-12 08:30:00 2022-02-12 09:38:36 [facility] 1..840.114 350.1.13.10 4.2.7.2.686 [id number] [facility] 2022-02-12 00:00:00 2022-02-12 00:00:00 Letter (Out) Roque Watts [facility] MEDICAL OFFICE BUILDING 1.2.840.114 350.1.13.10 4.2.7.2.686 [id number] [facility] 2022-02-11 16:00:00 2022-02-11 16:09:29 Outpatient R EVELIN DICKERSON [facility] [id number] [facility] 2022-02-11 16:00:00 2022-02-11 16:09:29 Office Visit Evelin Dickerson [facility] 1.2.840.114 350.1.13.10 4.2.7.2.686 [id number] [facility] 2022-02-06 15:00:00 2022-02-06 15:00:00 Outpatient R HAWA LEOS [facility] [id number] [facility] 2022-02-06 15:00:00 2022-02-06 15:00:00 Outpatient R HAWA LEOS [facility] [id number] [facility] 2022-02-06 15:00:00 2022-02-06 15:00:00 Outpatient R HAWA LEOS [facility] [id number] [facility] 2022-02-06 15:00:00 2022-02-06 15:00:00 Outpatient R HAWA LEOS [facility] [id number] [facility] 2022-02-06 15:00:00 2022-02-06 15:00:00 Outpatient R HAWA LEOS [facility] [id number] [facility] 2022-02-06 15:00:00 2022-02-06 15:00:00 Outpatient R HAWA LEOS [facility] [id number] [facility] 2022-02-06 15:00:00 2022-02-06 15:00:00 Outpatient R HAWA LEOS [facility] [id number] [facility] 2022-02-06 15:00:00 2022-02-06 15:00:00 Outpatient R HAWA LEOS [facility] [id number] [facility] 2022-02-05 16:19:42 2022-02-05 23:59:00 Outpatient R JACK ARROYO [facility] [id number] [facility] 2022-02-05 16:19:42 2022-02-05 23:59:00 Hospital Encounter Jack Arroyo [facility] ..840.114 350.1.13.10 4.2.7.2.686 [id number] [facility] 2022-02-05 00:00:00 2022-02-05 00:00:00 Orders Only Doctor Unassigned, [place] [facility] 1.2.840.114 350.1.13.10 4.2.7.2.686 [id number] [facility] 2022-01-29 08:30:00 2022-01-29 16:20:53 Outpatient R ROQUE WATTS [facility] [id number] [facility] 2022-01-29 08:30:00 2022-01-29 16:20:53 Office Visit Roque Watts [facility] MEDICAL OFFICE BUILDING 1.2.840.114 350.1.13.10 4.2.7.2.686 [id number] [facility] 2022-01-29 00:00:00 2022-01-29 00:00:00 Letter (Out) Roque Watts [facility] MEDICAL OFFICE BUILDING 1.2.840.114 350.1.13.10 4.2.7.2.686 [id number] [facility] 2021-12-17 08:00:00 2021-12-17 08:23:06 Office Visit Jorge Evelin [facility] 1.2.840.114 350.1.13.10 4.2.7.2.686 [id number] [facility] 2021-12-17 08:00:00 2021-12-17 08:23:06 Outpatient R EVELIN DICKERSON [facility] [id number] [facility] 2021-12-17 08:00:00 2021-12-17 08:00:00 Outpatient R EVELIN DICKERSON [facility] [id number] [facility] 2021-12-17 08:00:00 2021-12-17 08:00:00 Outpatient R EVELIN DICKERSON [facility] [id number] [facility] 2021-12-17 00:00:00 2021-12-17 00:00:00 Letter (Out) Evelin Dickerson [facility] 1.2.840.114 350.1.13.10 4.2.7.2.686 [id number] [facility] 2021-12-14 00:00:00 2021-12-14 00:00:00 Telephone Brandon Espinoza [facility] NAL BUILDING 1.2.840.114 350.1.13.10 4.2.7.2.686 [id number] [facility] 2021-12-13 00:00:00 2021-12-13 00:00:00 Telephone Olga Brandon [facility] NAL BUILDING 1.2.840.114 350.1.13.10 4.2.7.2.686 [id number] [id number] [facility] 2021-12-12 00:00:00 2021-12-12 00:00:00 Telephone Roque Watts [facility] OFFICE BUILDING 1.2.840.114 350.1.13.10 4.2.7.2.686 [id number] [facility] 2021-12-11 15:40:00 2021-12-11 17:12:40 Outpatient R BRANDON ESPINOZA [facility] [id number] [facility] 2021-12-11 15:40:00 2021-12-11 17:12:40 Office Visit Brandon Espinoza [facility] BUILDING 1.2.840.114 350.1.13.10 4.2.7.2.686 [id number] [facility] 2021-12-11 15:40:00 2021-12-11 17:12:40 Outpatient R BRANDON ESPINOZA [facility] [id number] [facility] 2021-12-11 15:40:00 2021-12-11 15:40:00 Outpatient R MIKALANIYABRANDON ESPINAL [facility] [id number] [facility] 2021-12-11 00:00:00 2021-12-11 00:00:00 Telephone Sandra Rafaela L [facility] NAL BUILDING 1.2.840.114 350.1.13.10 4.2.7.2.686 [id number] [facility] 2021-11-16 00:00:00 2021-11-16 00:00:00 Letter (Out) [facility] 1.840.114 350.1.13.10 4.2.7.2.686 [id number] [facility] 2021-11-15 12:30:00 2021-11-15 12:45:00 Laboratory Only Only, Ang Db Test Maurisio [facility] 1.840.114 350.1.13.10 4.2.7.2.686 [id number] [facility] 2021-11-15 12:30:00 2021-11-15 12:36:59 Outpatient R MAURISIO LESTER [facility] [id number] [facility] 2021-11-07 00:00:00 2021-11-07 00:00:00 Telephone Caitlyn [facility] 1.2840.114 350.1.13.10 4.2.7.2.686 [id number] [facility] 2021-11-06 18:20:00 2021-11-06 18:40:00 Urgent Care Amilcarcathy [facility] 1.2840.114 350.1.13.10 4.2.7.2.686 [id number] [facility] 2021-11-06 18:20:00 2021-11-06 18:24:10 Outpatient R STANLEY BRADY [facility] [id number] [facility] 2021-11-06 18:20:00 2021-11-06 18:20:00 Outpatient R STANLEY BRADY [facility] [id number] [facility] 2021-10-31 00:00:00 2021-10-31 00:00:00 Telephone Brandon Akers [facility] ([facility]) 1.2.840.114 350.1.13.10 4.2.7.2.686 [id number] [facility] 2021-10-31 00:00:00 2021-10-31 00:00:00 Letter (Out) Brandon Akers [facility] ([facility]) 1.2.840.114 350.1.13.10 4.2.7.2.686 [id number] [facility] 2021-10-26 08:00:00 2021-10-26 23:59:00 Outpatient RU EARLY [facility] [id number] [facility] 2021-10-26 08:00:00 2021-10-26 23:59:00 Outpatient RU EARLY [facility] [id number] [facility] 2021-10-26 07:31:23 2021-10-26 23:59:00 Hospital Encounter Ru Sosa [facility] He Salazar Justin K [facility] ([facility]) 1.2.840.114 350.1.13.10 4.2.7.2.686 [id number] [facility] 2021-10-26 08:00:00 2021-10-26 08:00:00 Outpatient R RU SOSA [facility] [id number] [facility] 2021-10-09 09:30:00 2021-10-09 10:24:14 Outpatient R ROQUE WATTS [facility] [id number] [facility] 2021-10-09 09:30:00 2021-10-09 10:24:14 Office Visit Roque Watts [facility] MEDICAL OFFICE BUILDING 1.2.840.114 350.1.13.10 4.2.7.2.686 [id number] [facility] 2021-10-05 15:30:00 2021-10-05 17:06:18 Outpatient R ADRAFAELA FINK [facility] [id number] [facility] 2021-10-05 15:30:00 2021-10-05 17:06:18 [facility] 1.2.840.114 350.1.13.10 4.2.7.2.686 [id number] [facility] 2021-10-05 15:30:00 2021-10-05 17:06:18 Outpatient R SANDRA [facility] [id number] [facility] 2021-09-13 13:45:00 2021-09-13 14:00:00 Efficiency Miner Blasting Visit 2, Adc Lab AdRafaela fink [facility] BUILDING 1.2.840.114 350.1.13.10 4.2.7.2.686 [id number] [facility] 2021-09-13 10:00:00 2021-09-13 11:20:39 Outpatient R BRANDON ESPINOZA [facility] [id number] [facility] 2021-09-13 10:00:00 2021-09-13 11:20:39 Office Visit MikalaniyakylieBrandon [facility] BUILDING 1.2.840.114 350.1.13.10 4.2.7.2.686 [id number] [facility] 2021-09-13 09:00:00 2021-09-13 09:18:09 Outpatient R SANDRA RAFAELA [facility] [id number] [facility] 2021-09-13 09:00:00 2021-09-13 09:18:09 Office Visit Rafaela Flores Brandon [facility] N[facility] BUILDING 1.2.840.114 350.1.13.10 4.2.7.2.686 [id number] [facility] 2021-09-11 00:00:00 2021-09-11 00:00:00 Telephone Stefanie Roque [facility] MEDICAL OFFICE BUILDING 1.2.840.114 350.1.13.10 4.2.7.2.686 [id number] [facility] 2021-09-06 10:06:24 2021-09-06 23:59:00 Hospital Encounter Roque Watts [facility] 1.2840.114 350.1.13.10 4.2.7.2.686 [id number] [facility] 2021-09-06 10:06:23 2021-09-06 23:59:00 Outpatient R ROQUE WATTS [facility] [id number] [facility] 2021-09-06 00:00:00 2021-09-06 00:00:00 Orders Only Doctor Unassigned, [place] [facility] 1.2840.114 350.1.13.10 4.2.7.2.686 [id number] [facility] 2021-08-23 10:30:00 2021-08-23 19:54:00 Surgery Stefanie [facility] ([employer]) 1.2840.114 350.1.13.10 4.2.7.2.686 [id number] [facility] 2021-08-23 08:10:00 2021-08-23 15:30:00 Outpatient R ROQUE WATTS PATRICK [facility] SNS [id number] [facility] 2021-08-23 08:10:00 2021-08-23 15:30:00 Hospital Encounter Roque Watts [facility] ([facility]) 1.2.840.114 350.1.13.10 4.2.7.2.686 [id number] [facility] 2021-08-23 08:10:00 2021-08-23 08:10:00 Outpatient R ROQUE WATTS PATRICK [facility] SNS [id number] [facility] 2021-08-23 00:00:00 2021-08-23 00:00:00 Orders Only Doctor Unassigned, [place] [facility] 1.2840.114 350.1.13.10 4.2.7.2.686 [id number] [facility] 2021-08-22 11:30:00 2021-08-22 11:45:00 Laboratory Only Only, Clc Main Test Stefanie [facility] ([employer] [facility]) 1.20.114 350.1.13.10 4.2.7.2.686 [id number] [facility] 2021-08-22 11:30:00 2021-08-22 11:30:00 Outpatient R STEFANIE ROQUE ROQUE WATTS [facility] [id number] [facility] 2021-08-22 11:30:00 2021-08-22 11:30:00 Outpatient R ROQUE WATTS ROQUE WATTS [facility] [id number] [facility] 2021-08-21 07:20:00 2021-08-21 07:25:00 Pre-Anesth esia Evaluation Call, [facility] Phone [facility] ([employer]) 1.2840.114 350.1.13.10 4.2.7.2.686 [id number] [facility] 2021-08-20 00:00:00 2021-08-20 00:00:00 Telephone Brandon Espinoza [facility] BUILDING 1.2.840.114 350.1.13.10 4.2.7.2.686 [id number] [facility] 2021-08-20 00:00:00 2021-08-20 00:00:00 Transition of Care Yolanda Orosco 1.2.840.114 350.1.13.10 4.2.7.2.686 [id number] [facility] 2021-08-20 00:00:00 2021-08-20 00:00:00 Telephone Brandon Espinoza [facility] 1.2.840.114 350.1.13.10 4.2.7.2.686 [id number] [facility] 2021-08-14 08:45:00 2021-08-18 19:11:00 Inpatient U ADIN AJCK [facility] SNS [id number] [facility] 2021-08-14 08:45:00 2021-08-18 19:11:00 Hospital Encounter Fercho Mercado Rudy P [facility] 1..840.114 350.1.13.10 4.2.7.2.686 [id number] [facility] 2021-08-14 13:40:00 2021-08-14 13:40:00 Outpatient R BRANDON ESPINOZA [facility] [id number] [facility] 2021-08-14 04:44:00 2021-08-14 07:48:00 Emergency X HEBERT ACKERMAN [facility] ERT [id number] [facility] 2021-08-14 04:44:00 2021-08-14 07:48:00 Emergency Hebert Ackerman 1.2.840.1 50363.1.1 3.104.2.7 .3.952573 .8 [id number] [facility] 2021-08-14 00:00:00 2021-08-14 00:00:00 Travel 1.2.840.1 60152.1.1 3.104.2.7 .3.434819 .8 1.2.840.114 350.1.13.10 4.2.7.3.698 084.8 [id number] [facility] 2021-08-13 14:01:00 2021-08-13 16:40:00 Emergency EM Bonifacio, Ivan [facility] [id number] [facility] 2021-08-13 14:01:00 2021-08-13 16:40:00 Emergency EM Bonifacio[id number] [facility] 2021-08-13 09:13:00 2021-08-13 13:12:00 Emergency EM Iesha Cast [facility] [id number] [facility] 2021-08-13 09:13:00 2021-08-13 13:12:00 Emergency EM Iesha Cast [facility] [id number] [facility] 2021-08-11 00:00:00 2021-08-11 00:00:00 Brandon Martinez 1.2.840.1 95730.1.1 3.104.2.7 .3.111527 .8 [id number] [facility] 2021-07-30 00:00:00 2021-07-30 00:00:00 Brandon Martinez 1.2.840.1 22379.1.1 3.104.2.7 .3.110714 .8 [id number] [facility] 2021-07-23 16:15:00 2021-07-23 16:30:00 E[employer] Blasting Visit Rafaela Flores 2, [facility] Lab 1.2.840.1 59106.1.1 3.104.2.7 .3.657339 .8 [id number] [facility] 2021-07-23 16:15:00 2021-07-23 16:15:00 Outpatient R RAFAELA FLORES [facility] [id number] [facility] 2021-07-12 07:58:44 2021-07-12 23:59:00 Outpatient R BRANDON ESPINOZA [facility] [id number] [facility] 2021-07-12 07:58:44 2021-07-12 23:59:00 Hospital Encounter Brandon Espinoza 1.2.840.1 46079.1.1 3.104.2.7 .3.259286 .8 [id number] [facility] 2021-07-11 00:00:00 2021-07-11 00:00:00 RefGigi Herrmann 1.2.840.1 62715.1.1 3.104.2.7 .3.108181 .8 [id number] [facility] 2021-07-06 08:40:00 2021-07-06 10:05:01 Outpatient R BRANDON ESPINOZA [facility] [id number] [facility] 2021-07-06 08:40:00 2021-07-06 10:05:01 Telemedici ne Visit Brandon Espinoza 1.2.840.1 27855.1.1 3.104.2.7 .3.523126 .8 [id number] [facility] 2021-07-06 08:40:00 2021-07-06 08:40:00 Outpatient R BRANDON ESPINOZA [facility] [id number] [facility] 2021-07-06 00:00:00 2021-07-06 00:00:00 Travel 1.2.840.1 01620.1.1 3.104.2.7 .3.346659 .8 1.2.840.114 350.1.13.10 4.2.7.3.698 084.8 [id number] [facility] 2021-06-29 16:40:55 2021-06-29 23:59:00 Hospital Encounter Brandon Espinoza [facility] 1.2.840.114 350.1.13.10 4.2.7.2.686 [id number] [facility] 2021-06-29 16:40:55 2021-06-29 23:59:00 Hospital Encounter Brandon Espinoza 1.2.840.1 50198.1.1 3.104.2.7 .3.614960 .8 [id number] [facility] 2021-06-29 16:40:18 2021-06-29 23:59:00 Hospital Encounter Brandon Espinoza [facility] 1.2.840.114 350.1.13.10 4.2.7.2.686 [id number] [facility] 2021-06-29 16:40:18 2021-06-29 23:59:00 Hospital Encounter Brandon Espinoza 1.2.840.1 84070.1.1 3.104.2.7 .3.270273 .8 [id number] [facility] 2021-06-29 15:30:00 2021-06-29 16:18:07 Outpatient R GIGI BENITEZ OGECHUKWU [facility] [id number] [facility] 2021-06-29 15:30:00 2021-06-29 16:18:07 Office Visit Gigi Benitez 1.2.840.1 90380.1.1 3.104.2.7 .3.247479 .8 [id number] [facility] 2021-06-29 00:00:00 2021-06-29 00:00:00 Orders Only Doctor Unassigned, [place] [facility] 1.2.840.114 350.1.13.10 4.2.7.2.686 [id number] [facility] 2021-06-29 00:00:00 2021-06-29 00:00:00 Travel 1.2.840.1 59448.1.1 3.104.2.7 .3.055905 .8 1.2.840.114 350.1.13.10 4.2.7.3.698 084.8 [id number] [facility] 2021-06-29 00:00:00 2021-06-29 00:00:00 Orders Only Doctor Unassigned, [place] 1.2.840.1 19827.1.1 3.104.2.7 .3.079137 .8 [id number] [facility] 2021-06-26 08:00:00 2021-06-26 08:00:00 Outpatient R ELI, GIGI PAL[facility] [id number] [facility] 2021-06-19 00:00:00 2021-06-19 00:00:00 Telephone AdRafaela fink [facility] 1.2.840.114 350.1.13.10 4.2.7.2.686 [id number] 134 [id number] [facility] 2021-06-19 00:00:00 2021-06-19 00:00:00 Case Management AdRafaela fink [facility] 1.2.840.114 350.1.13.10 4.2.7.2.686 [id number] 134 [id number] [facility] 2021-06-19 00:00:00 2021-06-19 00:00:00 Telephone AdRafaela fink 1.2.840.1 37155.1.1 3.104.2.7 .3.365058 .8 [id number] [facility] 2021-06-19 00:00:00 2021-06-19 00:00:00 Case Management Rafaela Flores 1.2.840.1 96172.1.1 3.104.2.7 .3.047421 .8 [id number] [facility] 2021-06-15 14:00:00 2021-06-15 15:10:42 Office Visit MynorRafaela fink Brandon [facility] 1.2.840.114 350.1.13.10 4.2.7.2.686 [id number] [facility] 2021-06-15 14:00:00 2021-06-15 15:10:42 Outpatient R SANDRA RAFAELA [facility] [id number] [facility] 2021-06-15 14:00:00 2021-06-15 15:10:42 Office Visit Rafaela Flores 1.2.840.1 28195.1.1 3.104.2.7 .3.836872 .8 [id number] [facility] 2021-06-15 14:00:00 2021-06-15 14:00:00 Outpatient R SANDRA RAFAELA [facility] [id number] [facility] 2021-06-15 00:00:00 2021-06-15 00:00:00 Travel 1.2.840.1 67642.1.1 3.104.2.7 .3.030550 .8 1.2.840.114 350.1.13.10 4.2.7.3.698 084.8 [id number] [facility] 2021-04-19 16:00:00 2021-04-19 16:00:00 Outpatient BRANDON NGUYEN [facility] [id number] [facility] 2021-04-17 00:00:00 2021-04-17 00:00:00 Brandon Martinez [facility] BUILDING 1.2.840.114 350.1.13.10 4.2.7.2.686 [id number] [facility] 2021-04-11 10:00:00 2021-04-11 10:33:45 Outpatient R RAFAELA FLORES [facility] [id number] [facility] 2021-04-11 10:00:00 2021-04-11 10:33:45 Initial Visit Rafaela Flores [facility] 1.2.840.114 350.1.13.10 4.2.7.2.686 [id number] [facility] 2021-04-11 08:30:00 2021-04-11 08:35:13 Imm/Inj Visit Nurse, Diego Pob Immunizatio Naeem Oneill [facility] 1.2.840.114 350.1.13.10 4.2.7.2.686 [id number] [facility] 2021-04-11 08:30:00 2021-04-11 08:30:00 Outpatient R NAEEM HALLMAN [facility] [id number] [facility] 2021-04-11 00:00:00 2021-04-11 00:00:00 Letter (Out) Rafaela Flores [facility] BUILDING 1.2.840.114 350.1.13.10 4.2.7.2.686 [id number] [facility] 2021-04-11 00:00:00 2021-04-11 00:00:00 Telephone Brandon Espinoza [facility] 1.2.840.114 350.1.13.10 4.2.7.2.686 [id number] [facility] 2021-03-14 16:20:00 2021-03-14 16:53:25 Outpatient R BRANDON ESPINOZA [facility] [id number] [facility] 2021-03-14 16:20:00 2021-03-14 16:53:25 Outpatient R BRANDON ESPINOZA [facility] [id number] [facility] 2021-03-14 16:11:43 2021-03-14 16:53:25 Office Visit Brandon Espinoza [facility] 1.2840.114 350.1.13.10 4.2.7.2.686 [id number] [facility] 2021-03-14 15:40:07 2021-03-14 15:40:16 Imm/Inj Visit Nurse, Diego Nascimento Immunizatio Naeem Oneill [facility] 1.84.114 350.1.13.10 4.2.7.2.686 [id number] [facility] 2021-03-14 00:00:00 2021-03-14 00:00:00 Orders Only Doctor Unassigned, [place] [facility] 1.2840.114 350.1.13.10 4.2.7.2.686 [id number] [facility] 2021-03-09 17:00:00 2021-03-09 19:32:00 Emergency X Perry LANCE [facility] ERT [id number] [facility] 2021-03-09 17:00:00 2021-03-09 19:32:00 Emergency Perry Lance [facility] 1.84.114 350.1.13.10 4.2.7.2.686 [id number] [facility] 2021-03-09 16:23:00 2021-03-09 16:43:00 Nurse Visit Nurse, Rodriguez [facility] Maurisio [facility] 1..840.114 350.1.13.10 4.2.7.2.686 [id number] [facility] 2021-03-09 16:30:00 2021-03-09 16:30:00 Outpatient R LESTER [facility]ER[facility] [id number] [facility] 2021-03-09 00:00:00 2021-03-09 00:00:00 Telephone Brandon Espinoza [facility] 1..840.114 350.1.13.10 4.2.7.2.686 [id number] [facility] 2021-03-09 00:00:00 2021-03-09 00:00:00 Orders Only Doctor Unassigned, [place] [facility] 1..840.114 350.1.13.10 4.2.7.2.686 [id number] [facility] 2021-03-08 08:30:00 2021-03-08 08:30:00 Outpatient R NAEEM HALLMAN [facility] [id number] [facility] 2021-02-16 15:00:00 2021-02-16 15:00:00 Outpatient R [facility] [id number] [facility] 2021-02-14 00:00:00 2021-02-14 00:00:00 Telephone Olamide Palm [facility] 1..840.114 350.1.13.10 4.2.7.2.686 [id number] [facility] 2021-02-13 16:20:00 2021-02-13 16:40:25 Outpatient R STANLEY BRADY [facility] [id number] [facility] 2021-02-13 16:14:48 2021-02-13 16:34:48 Urgent Care Stanley Brady [facility] 1.2.840.114 350.1.13.10 4.2.7.2.686 [id number] [facility] 2021-02-12 00:00:00 2021-02-12 00:00:00 Telephone Brandon Espinoza [facility] 1.2.840.114 350.1.13.10 4.2.7.2.686 [id number] [facility] 2021-02-11 00:00:00 2021-02-11 00:00:00 Refill Brandon Espinoza [facility] BUILD[facility] 1.2.840.114 350.1.13.10 4.2.7.2.686 [id number] [id number] [facility] 2021-02-10 00:00:00 2021-02-10 00:00:00 Refill Olga [facility] BUILDING 1.2.840.114 350.1.13.10 4.2.7.2.686 [id number] [facility] 2021-02-05 08:00:00 2021-02-05 08:50:34 Outpatient R HAWA LEOS [facility] [id number] [facility] 2021-02-05 07:57:26 2021-02-05 08:50:34 Office Visit Hawa Leos [facility] BUILD[facility] 1.2.840.114 350.1.13.10 4.2.7.2.686 [id number] [facility] 2021-02-05 00:00:00 2021-02-05 00:00:00 Letter (Out) Hawa Leos [facility] BUILDING 1.2.840.114 350.1.13.10 4.2.7.2.686 [id number] [facility] 2021-01-23 00:00:00 2021-01-23 00:00:00 Patient Secure Ethel Stack [facility] 1.2.114 350.1.13.10 4.2.7.2.686 [id number] [facility] 2021-01-16 17:10:30 2021-01-16 17:25:30 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, Adc Lab Main Brandon Espinoza [facility] Building 1.2.114 350.1.13.10 4.2.7.2.686 [id number] [facility] 2021-01-16 17:15:00 2021-01-16 17:15:00 Outpatient R BRANDON ESPINOZA [facility] [id number] [facility] 2021-01-16 00:00:00 2021-01-16 00:00:00 Orders Only Doctor Unassigned, [place] [facility] 1.2.114 350.1.13.10 4.2.7.2.686 [id number] [facility] 2021-01-10 15:44:13 2021-01-10 17:57:44 Office Visit Brandon Espinoza [facility] Building 1.284.114 350.1.13.10 4.2.7.2.686 [id number] [facility] 2021-01-10 16:00:00 2021-01-10 16:00:00 Outpatient R BRANDON ESPINOZA [facility] [id number] [facility] 2021-01-10 00:00:00 2021-01-10 00:00:[address] [facility] Building 1.284.114 350.1.13.10 4.2.7.2.686 [id number] 044 [id number] [facility] 2020-12-01 14:42:41 2020-12-01 15:19:28 Nurse Visit Nurse, [facility]on [facility] 1..840.114 350.1.13.10 4.2.7.2.686 [id number] [facility] 2020-12-01 15:00:00 2020-12-01 15:00:00 [facility] [id number] [facility] 2020-11-29 15:30:00 2020-11-29 15:30:00 Outpatient Cuong MAYNARD [facility] [id number] [facility] 2020-11-24 00:00:00 2020-11-24 00:00:00 Telephone Brandon Espinoza [facility] 1..840.114 350.1.13.10 4.2.7.2.686 [id number] 044 [id number] [facility] 2020-11-02 14:36:42 2020-11-02 15:30:58 Office Visit Rafaela Flores [facility] 1..840.114 350.1.13.10 4.2.7.2.686 [id number] 134 [id number] [facility] 2020-11-02 14:45:00 2020-11-02 14:45:00 Outpatient R RAFAELA FLORES [facility] [id number] [facility] 2020-10-16 16:53:52 2020-10-16 23:59:00 Hospital Encounter Brandon Espinoza [facility] 1..840.114 350.1.13.10 4.2.7.2.686 [id number] [facility] 2020-10-16 00:00:00 2020-10-16 00:00:00 Outpatient R OLGA BRANDON [facility] [id number] [facility] 2020-10-10 16:51:59 2020-10-10 17:11:59 Urgent Care Kailey Angulo [facility] Office Building One 1..840.114 350.1.13.10 4.2.7.2.686 [id number] 044 [id number] [facility] 2020-10-10 17:00:00 2020-10-10 17:00:00 Outpatient R OSVALDO MARSHALL [facility] [id number] [facility] 2020-10-04 15:10:36 2020-10-04 15:20:13 Telemedici ne Visit MikalapavelBrandon kim [facility] Building 1.840.114 350.1.13.10 4.2.7.2.686 [id number] 044 [id number] [facility] 2020-10-04 08:20:00 2020-10-04 08:20:00 Outpatient R MIKALAPAVELBRANDON KIM [facility] [id number] [facility] 2020-10-02 09:26:52 2020-10-02 10:10:11 Urgent Care Provider, [facility] Unknown, Attending [facility] Office Building One 1..840.114 350.1.13.10 4.2.7.2.686 [id number] 044 [id number] [facility] 2020-10-02 09:20:00 2020-10-02 09:20:00 Outpatient R UNKNOWN, ATTENDING [facility] [id number] [facility] 2020-10-02 00:00:00 2020-10-02 00:00:[address] [facility] Building 1..840.114 350.1.13.10 4.2.7.2.686 [id number] [id number] [facility] 2020-10-02 00:00:00 2020-10-02 00:00:00 Telephone Devin Lu [facility] Office Building One 1..114 350.1.13.10 4.2.7.2.686 [id number] 044 [id number] [facility] 2020-09-28 00:00:00 2020-09-28 00:00:[address] [facility] Building 1..114 350.1.13.10 4.2.7.2.686 [id number] 044 [id number] [facility] 2020-09-20 00:00:00 2020-09-20 00:00:00 Orders Only Doctor Unassigned, [place] [facility] 1.114 350.1.13.10 4.2.7.2.686 [id number] [id number] [facility] 2020-09-13 15:20:32 2020-09-13 15:48:46 Nurse Visit Nurse, Keon [facility] Medical Office Building 1..114 350.1.13.10 4.2.7.2.686 [id number] [facility] 2020-09-13 15:30:00 2020-09-13 15:30:00 Outpatient R ETHEL MAYNARD [facility] [id number] [facility] 2020-09-11 00:00:00 2020-09-11 00:00:00 Telephone Caesar [facility] Medical Office Building 1.84.114 350.1.13.10 4.2.7.2.686 [id number] 134 [id number] [facility] 2020-09-07 00:00:00 2020-09-07 00:00:00 Case Management Rafaela Flores [facility] Building 1.84.114 350.1.13.10 4.2.7.2.686 [id number] 134 [id number] [facility] 2020-09-05 15:24:00 2020-09-05 16:12:18 Office Visit SandraRafaela [facility] Linda Marshall nal Building 1.2840.114 350.1.13.10 4.2.7.2.686 [id number] 134 [id number] [facility] 2020-09-05 15:30:00 2020-09-05 15:30:00 Outpatient R RAFAELA FLORES [facility] [id number] [facility] 2020-08-31 16:15:13 2020-08-31 23:59:00 Outpatient R BRANDON ESPINOZA [facility] [id number] [facility] 2020-08-31 16:15:13 2020-08-31 23:59:00 Hospital Encounter Brandon Espinoza [facility] ([facility]) 1.840.114 350.1.13.10 4.2.7.2.686 [id number] [facility] 2020-08-31 16:15:13 2020-08-31 23:59:00 Outpatient R BRANDON ESPINOZA [facility] [id number] [facility] 2020-08-31 16:30:00 2020-08-31 16:30:00 Outpatient R BRANDON ESPINOZA [facility] [id number] [facility] 2020-08-29 00:00:00 2020-08-29 00:00:00 Orders Only Doctor Unassigned, [place] [facility] 1.2840.114 350.1.13.10 4.2.7.2.686 [id number] [facility] 2020-08-28 15:32:34 2020-08-28 16:42:09 Office Visit Ethel Maynard [facility] Medical Office Building 1.2840.114 350.1.13.10 4.2.7.2.686 [id number] 134 [id number] [facility] 2020-08-28 15:45:00 2020-08-28 15:45:00 Outpatient R ETHEL MAYNARD [facility] [id number] [facility] 2020-08-23 09:35:14 2020-08-23 23:59:00 Hospital Encounter Brandon Espinoza [facility] 1.84.114 350.1.13.10 4.2.7.2.686 [id number] [facility] 2020-08-23 16:09:29 2020-08-23 17:04:25 Office Visit Brandon Espinoza [facility] 1.840.114 350.1.13.10 4.2.7.2.686 [id number] [id number] [facility] 2020-08-23 16:20:00 2020-08-23 16:20:00 Outpatient R MIKALAPAVELJUDY BRANDON [facility] [id number] [facility] 2020-08-23 09:33:48 2020-08-23 09:48:48 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, 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 Main Olga [facility] 1..840.114 350.1.13.10 4.2.7.2.686 [id number] [facility] 2020-08-23 00:00:00 2020-08-23 00:00:00 Orders Only Doctor Unassigned, [place] [facility] 1.284.114 350.1.13.10 4.2.7.2.686 [id number] [id number] [facility] 2020-08-18 08:37:39 2020-08-18 10:47:21 Telemedici ne Visit Jaylynjudy [facility] 1.2.840.114 350.1.13.10 4.2.7.2.686 [id number] 044 [id number] [facility] 2020-08-18 09:15:00 2020-08-18 09:15:00 Outpatient R BRANDON ESPINOZA [facility] [id number] [facility] 2020-08-18 00:00:00 2020-08-18 00:00:00 Telephone Olga [facility] Office Building One 1.2840.114 350.1.13.10 4.2.7.2.686 [id number] 044 [id number] [facility] 2020-08-03 16:29:19 2020-08-03 23:59:00 Hospital Encounter Olga [facility] ([facility]) 1.840.114 350.1.13.10 4.2.7.2.686 [id number] [facility] 2020-08-03 16:30:00 2020-08-03 16:30:00 Outpatient R MIKALAGILLES BRANDON [facility] [id number] [facility] 2020-08-01 08:00:00 2020-08-01 08:00:00 Outpatient R ETHEL MAYNARD [facility] [id number] [facility] 2020-07-31 13:45:00 2020-07-31 13:45:00 Outpatient R BRANDON ESPINOZA [facility] [id number] [facility] 2020-07-31 00:00:00 2020-07-31 00:00:00 Orders Only Doctor Unassigned, [place] [facility] 1.2840.114 350.1.13.10 4.2.7.2.686 [id number] [facility] 2020-07-28 00:00:00 2020-07-28 00:00:00 Patient Secure Msg Doctor Unassigned, [place] [facility] 1.2.840.114 350.1.13.10 4.2.7.2.686 [id number] [facility] 2020-07-28 00:00:00 2020-07-28 00:00:00 Letter (Out) Olga [facility] Building 1.2.840.114 350.1.13.10 4.2.7.2.686 [id number] 044 [id number] [facility] 2020-07-27 14:32:57 2020-07-27 15:11:50 Office Visit Olga [facility] 1.2.840.114 350.1.13.10 4.2.7.2.686 [id number] 044 [id number] [facility] 2020-07-27 14:40:00 2020-07-27 14:40:00 Outpatient R BRANDON ESPINOZA [facility] [id number] [facility] 2020-07-27 00:00:00 2020-07-27 00:00:00 Telephone Olga [facility] Office Building One 1.2840.114 350.1.13.10 4.2.7.2.686 [id number] [id number] [facility] 2020-07-21 21:45:00 2020-07-21 22:26:00 Emergency Kia Naranjo [facility] 1.2.840.114 350.1.13.10 4.2.7.2.686 [id number] [facility] 2020-07-19 15:00:00 2020-07-19 15:00:00 Outpatient R OLGA [facility] [id number] [facility] 2020-07-19 12:48:04 2020-07-19 13:03:02 Telemedici ne Visit [place], [facility] [place] 1.2.840.114 350.1.13.10 4.2.7.2.686 [id number] [facility] 2020-07-17 00:00:00 2020-07-17 00:00:00 Telephone Brandon Espinoza [facility] [place] [facility] Building 1.2.840.114 350.1.13.10 4.2.7.2.686 [id number] 044 [id number] [facility] 2020-07-11 10:25:12 2020-07-11 11:32:03 Office Visit Brandon Espinoza [facility] 1.2.840.114 350.1.13.10 4.2.7.2.686 [id number] 044 [id number] 2020-07-11 10:25:12 2020-07-11 11:32:03 Office Visit Brandon Espinoza [facility] 1.2.840.114 350.1.13.10 4.2.7.2.686 [id number] [facility] 2020-07-11 10:40:00 2020-07-11 10:40:00 Outpatient R BRANDON ESPINOZA [facility] [id number] [facility] 2020-07-11 00:00:00 2020-07-11 00:00:00 Telephone Brandon Espinoza [facility] [place] [facility] 1.2.840.114 350.1.13.10 4.2.7.2.686 [id number] [facility] 2020-07-11 00:00:00 2020-07-11 00:00:00 Telephone Brandon Espinoza [facility] [place] [facility] 1.2.840.114 350.1.13.10 4.2.7.2.686 [id number] 044 [id number] [facility] 2020-06-27 00:00:00 2020-06-27 00:00:00 Patient Outreach Bryon Naeemahsan Britton [facility] PRIMARY [facility]ARE PAVYAELON 1..114 350.1.13.10 4.2.7.2.686 [id number] [facility] 2020-06-16 15:20:18 2020-06-16 15:35:18 Laboratory Only Only, Adc June Chery [facility] 1..114 350.1.13.10 4.2.7.2.686 [id number] [facility] 2020-06-16 15:15:00 2020-06-16 15:15:00 Outpatient R [facility] [id number] [facility] 2020-06-16 00:00:00 2020-06-16 00:00:00 Orders Only Doctor Unassigned, [place] [facility] 1..114 350.1.13.10 4.2.7.2.686 [id number] [facility] 2020-06-09 12:58:00 2020-06-09 13:18:00 Laboratory Only Lab, [facility]ley [facility] Office Building One .114 350.1.13.10 4.2.7.2.686 [id number] 044 [id number] [facility] 2020-06-09 13:00:00 2020-06-09 13:00:00 Outpatient R [facility] [id number] [facility] 2020-06-02 14:37:58 2020-06-02 14:57:58 Laboratory Only Lab, [facility] Charley LuFormerly [facility] Office Building One .114 350.1.13.10 4.2.7.2.686 [id number] 044 [id number] [facility] 2020-06-02 14:40:00 2020-06-02 14:40:00 Outpatient R TERESSADEVIN [facility] [id number] [facility] 2020-05-29 00:00:00 2020-05-29 00:00:00 Patient Secure Msg [facility] 1.2.840.114 350.1.13.10 4.2.7.2.686 [id number] [id number] [facility] 2020-05-26 12:13:44 2020-05-26 12:28:44 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, Adc Lab Main AdRafaela fink [facility] nal Building 1.2.840.114 350.1.13.10 4.2.7.2.686 [id number] [facility] 2020-05-26 11:03:54 2020-05-26 12:04:47 Office Visit Adum, Rafaela Taylor [facility] Building 1.2.840.114 350.1.13.10 4.2.7.2.686 [id number] [facility] 2020-05-26 11:00:00 2020-05-26 11:00:00 Outpatient R RAFAELA FLORES [facility] [id number] [facility] 2020-05-10 15:03:58 2020-05-10 15:25:57 Nurse Visit Nurse, [facility] Kwasi Brandon Espinoza [facility] Building 1.2.840.114 350.1.13.10 4.2.7.2.686 [id number] 044 [id number] [facility] 2020-05-10 15:00:00 2020-05-10 15:00:00 Outpatient R MIKALAGILLES BRANDON [facility] [id number] [facility] 2020-04-20 09:55:57 2020-04-20 10:42:50 Office Visit Rafaela Flores [facility] Building 1.2.840.114 350.1.13.10 4.2.7.2.686 [id number] [facility] 2020-04-20 10:00:00 2020-04-20 10:00:00 Outpatient R RAFAELA FLORES [facility] [id number] [facility] 2020-04-11 14:49:57 2020-04-11 15:08:52 Nurse Visit Nurse, [facility] Kwasi Brandon Espinoza [facility] Building 1.2.840.114 350.1.13.10 4.2.7.2.686 [id number] 044 [id number] [facility] 2020-04-11 07:54:20 2020-04-11 15:04:59 Telemedici ne Visit MikalapavelBrandon kim [facility] Building 1.2.840.114 350.1.13.10 4.2.7.2.686 [id number] [facility] 2020-04-11 09:40:00 2020-04-11 09:40:00 Outpatient R OLGA BRANDON [facility] [id number] [facility] 2020-03-29 16:15:51 2020-03-29 16:46:19 [address] Mik[address]illesBrandon [facility] Building 1.2.840.114 350.1.13.10 4.2.7.2.686 [id number] [facility] 2020-03-29 16:20:00 2020-03-29 16:20:00 Outpatient R OLGA BRANDON [facility] [id number] [facility] 2020-03-15 00:00:00 2020-03-15 00:00:00 Case Management Lucinda Sanchez [facility] Building 1.2.840.114 350.1.13.10 4.2.7.2.686 [id number] 134 [id number] [facility] 2020-03-13 14:55:56 2020-03-13 15:44:58 Office Visit Hawa Leos [facility] Building 1.2.840.114 350.1.13.10 4.2.7.2.686 [id number] 134 [id number] [facility] 2020-03-13 15:00:00 2020-03-13 15:00:00 Outpatient R HAWA LEOS [facility] [id number] [facility] 2020-03-09 11:20:00 2020-03-09 11:20:00 Outpatient R BRANDON ESPINOZA [facility] [id number] [facility] 2020-02-29 00:00:00 2020-02-29 00:00:00 Patient Secure Msg Hawa Leos [facility] 1.2.840.114 350.1.13.10 4.2.7.2.686 [id number] [facility] 2020-02-10 15:00:00 2020-02-10 15:00:00 Outpatient R GUS HERNANDEZ [facility] [id number] [facility] 2020-02-02 14:52:34 2020-02-02 15:32:34 Ancillary Visit Farrukh Aguilar Craig L [facility] 1.2.840.114 350.1.13.10 4.2.7.2.686 [id number] [facility] ity [facility] 2020-02-02 15:00:00 2020-02-02 15:00:00 Outpatient R [facility] [id number] [facility] 2020-01-31 13:00:00 2020-01-31 13:00:00 Outpatient R [facility] [id number] [facility] 2020-01-27 13:09:37 2020-01-27 13:24:37 Efficiency [employer] Visit 2, Adc Lab Hawa Leos [facility] Building 1.84.114 350.1.13.10 4.2.7.2.686 [id number] [facility] 2020-01-27 13:00:00 2020-01-27 13:00:00 Outpatient R [facility] [id number] [facility] 2020-01-27 00:00:00 2020-01-27 00:00:00 Case Management JeffAixa [facility] 1..114 350.1.13.10 4.2.7.2.686 [id number] [facility] 2020-01-26 13:29:54 2020-01-26 14:33:26 Office Visit Hawa Leos [facility] Building 1..114 350.1.13.10 4.2.7.2.686 [id number] 134 [id number] [facility] 2020-01-26 13:30:00 2020-01-26 13:30:00 Outpatient R HAWA LEOS [facility] [id number] [facility] 2020-01-26 00:00:00 2020-01-26 00:00:00 Orders Only Doctor Unassigned, [place] [facility] 1.114 350.1.13.10 4.2.7.2.686 [id number] [facility] 2020-01-24 08:02:02 2020-01-24 08:42:02 Ancillary Visit Sherie Brooks Peter [facility] Building 1.2.114 350.1.13.10 4.2.7.2.686 [id number] [facility] 2020-01-11 08:02:50 2020-01-11 08:42:50 Ancillary Visit Donna Martinez Craig L [facility] Building 1.2.840.114 350.1.13.10 4.2.7.2.686 [id number] [facility] 2020-01-11 08:00:00 2020-01-11 08:00:00 Outpatient R GUS HERNANDEZ [facility] [id number] [facility] 2020-01-04 13:03:57 2020-01-04 14:03:57 Ancillary Visit Donna Martinez Olga [facility] 1.2.840.114 350.1.13.10 4.2.7.2.686 [id number] [facility] 2020-01-04 13:00:00 2020-01-04 13:00:00 Outpatient R BRANDON ESPINOZA [facility] [id number] [facility] 2019-12-10 00:00:00 2019-12-10 00:00:00 Patient Outreach Natanael Norma L [facility] Office Building One 1..840.114 350.1.13.10 4.2.7.2.686 [id number] [facility] 2019-12-10 00:00:00 2019-12-10 00:00:[address] [facility] Building 1.2.840.114 350.1.13.10 4.2.7.2.686 [id number] 044 [id number] [facility] 2019-12-09 09:01:55 2019-12-09 14:56:42 Office Visit Brandon Espinoza [facility] Building 1.2.840.114 350.1.13.10 4.2.7.2.686 [id number] [facility] 2019-12-09 09:00:00 2019-12-09 09:00:00 Outpatient R BRANDON ESPINOZA [facility] [id number] [facility] 2019-12-08 08:01:47 2019-12-08 08:46:18 Laboratory Only Pc, Adc Echo Room 1 - Brandon [facility]inoza [facility] 1.2.114 350.1.13.10 4.2.7.2.686 [id number] [facility] 2019-12-08 08:00:00 2019-12-08 08:00:00 Outpatient R [facility] [id number] [facility] 2019-12-07 00:00:00 2019-12-07 00:00:00 Patient Secure Msg Hawa Leos [facility] 1.2.114 350.1.13.10 4.2.7.2.686 [id number] 134 [id number] [facility] 2019-12-06 14:09:58 2019-12-06 15:35:56 [facility] 1.114 350.1.13.10 4.2.7.2.686 [id number] [id number] [facility] 2019-12-06 14:40:00 2019-12-06 14:40:00 Outpatient R CHRISTIANLILI [facility] [id number] [facility] 2019-11-22 00:00:00 2019-11-22 00:00:[address] Case [address]Rafaela [facility] Building 1.2.114 350.1.13.10 4.2.7.2.686 [id number] 134 [id number] [facility] 2019-11-19 15:17:34 2019-11-19 16:11:29 Office Visit Rafaela Flores [facility] Building 1.2.114 350.1.13.10 4.2.7.2.686 [id number] [facility] 2019-11-19 15:30:00 2019-11-19 15:30:00 Outpatient R RAFAELA FLORES [facility] [id number] [facility] 2019-11-18 08:48:19 2019-11-18 10:03:57 Office Visit Brandon Espinoza [facility] Building 1..840.114 350.1.13.10 4.2.7.2.686 [id number] [facility] 2019-11-18 09:00:00 2019-11-18 09:00:00 Outpatient R BRANDON ESPINOZA [facility] [id number] [facility] 2019-11-18 00:00:00 2019-11-18 00:00:00 Orders Only Doctor Unassigned, [place] [facility] 1..840.114 350.1.13.10 4.2.7.2.686 [id number] [facility] 2019-11-16 00:00:00 2019-11-16 00:00:00 Patient Secure Leos Hawa Escoto [facility] 1..840.114 350.1.13.10 4.2.7.2.686 [id number] 134 [id number] [facility] 2019-09-01 14:00:00 2019-09-01 14:00:00 Outpatient R BRANDON ESPINOZA [facility] [id number] [facility] 2019-09-01 08:15:10 2019-09-01 08:30:10 Telemedici ne Visit Arsen Israel [facility] Building 1..840.114 350.1.13.10 4.2.7.2.686 [id number] 044 [id number] [facility] 2019-08-31 00:00:00 2019-08-31 00:00:00 Patient Secure Lillie Palen [facility] Building 1.2840.114 350.1.13.10 4.2.7.2.686 [id number] 134 [id number] [facility] 2019-08-27 00:00:00 2019-08-27 00:00:00 Patient Secure g Olga [facility] Office Building One 1.840.114 350.1.13.10 4.2.7.2.686 [id number] 044 [id number] [facility] 2019-08-25 00:00:00 2019-08-25 00:00:00 Telephone Hawa Leos [facility] Building 1.2.114 350.1.13.10 4.2.7.2.686 [id number] 134 [id number] [facility] 2019-08-09 00:00:00 2019-08-09 00:00:00 Patient Secure Msg Olga [facility] Office Building One 1..114 350.1.13.10 4.2.7.2.686 [id number] 044 [id number] [facility] 2019-07-26 13:00:00 2019-07-26 13:00:00 Outpatient R HAWA LEOS [facility] [id number] [facility] 2019-07-26 08:23:57 2019-07-26 08:38:57 Telemedici ne Visit Hawa Leos [facility] Building 1.2.114 350.1.13.10 4.2.7.2.686 [id number] 134 [id number] [facility] 2019-07-15 00:00:00 2019-07-15 00:00:00 Patient Secure Msg Hawa Leos [facility] Building 1.2840.114 350.1.13.10 4.2.7.2.686 [id number] 134 [id number] [facility] 2019-06-29 00:00:00 2019-06-29 00:00:00 Patient Outreach Serena Berg 1.2.840.114 350.1.13.10 4.2.7.2.686 [id number] [facility] 2019-06-27 00:29:35 2019-06-27 02:31:00 Emergency Aida Sumner [facility] 1.2.840.114 350.1.13.10 4.2.7.2.686 [id number] [facility] 2019-06-23 03:48:00 2019-06-25 11:05:00 Hospital Encounter Hawa Leos [facility] 1.2.840.114 350.1.13.10 4.2.7.2.686 [id number] [facility] 2019-06-24 00:00:00 2019-06-24 00:00:00 Telephone Hawa Leos [facility] Building 1.2.840.114 350.1.13.10 4.2.7.2.686 [id number] [facility] 2019-06-23 00:00:00 2019-06-23 00:00:00 Orders Only Doctor Unassigned, [place] [facility] 1.2.840.114 350.1.13.10 4.2.7.2.686 [id number] [facility] 2019-06-21 15:04:28 2019-06-21 15:19:28 [employer] Visit 2, [facility] Lucinda Sanchez [facility] Professio nal Building 1.2.840.114 350.1.13.10 4.2.7.2.686 [id number] [facility] 2019-06-21 13:51:46 2019-06-21 14:06:46 Routine Visit Room, [facility] Building 1.2.840.114 350.1.13.10 4.2.7.2.686 [id number] [facility] 2019-06-21 14:00:00 2019-06-21 14:00:00 Outpatient R LUCINDA SANCHEZ [facility] [id number] [facility] 2019-06-21 09:30:00 2019-06-21 09:30:00 [id number] 2019-06-18 15:04:00 2019-06-18 15:30:00 Hospital Encounter Hawa Leos [facility] 1.2.840.114 350.1.13.10 4.2.7.2.686 [id number] [facility] 2019-06-17 11:06:00 2019-06-17 14:55:00 Hospital Encounter Hawa Leos [facility] 1.2.840.114 350.1.13.10 4.2.7.2.686 [id number] [facility] 2019-06-17 11:06:00 2019-06-17 14:55:00 [facility] [id number] [facility] 2019-06-17 10:04:47 2019-06-17 10:48:05 Routine Visit Room, Formerly [facility] Hawa Leos [facility] 1.2.840.114 350.1.13.10 4.2.7.2.686 [id number] [facility] 2019-06-17 10:00:00 2019-06-17 10:00:00 Outpatient R HAWA LEOS [facility] [id number] [facility] 2019-06-17 00:00:00 2019-06-17 00:00:00 Case Management Hawa Leos [facility] Building 1.2.840.114 350.1.13.10 4.2.7.2.686 [id number] [facility] 2019-06-17 00:00:00 2019-06-17 00:00:[address] 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 Building 1.2.840.114 350.1.13.10 4.2.7.2.686 [id number] [facility] 2019-06-11 14:00:00 2019-06-11 14:00:00 Outpatient P [facility] [id number] [facility] 2019-06-10 14:59:09 2019-06-10 16:10:11 [facility] 1.2.840.114 350.1.13.10 4.2.7.2.686 [id number] [facility] 2019-06-10 09:00:00 2019-06-10 09:00:00 Outpatient P [facility] [id number] [facility] 2019-06-07 12:51:00 2019-06-07 16:18:00 Hospital Encounter Hawa Leos [facility] 1.2.840.114 350.1.13.10 4.2.7.2.686 [id number] [facility] 2019-06-07 10:49:48 2019-06-07 12:41:10 Routine Visit Room, [facility] Sharan Lucinda [facility] Building 1.2.840.114 350.1.13.10 4.2.7.2.686 [id number] [facility] 2019-06-07 11:00:00 2019-06-07 11:00:00 Outpatient R [facility] [id number] [facility] 2019-06-03 08:51:00 2019-06-03 09:56:51 Routine Visit Room, [facility] 1.2.840.114 350.1.13.10 4.2.7.2.686 [id number] [facility] 2019-06-03 09:00:00 2019-06-03 09:00:00 Outpatient R DERIC HAWA [facility] [id number] [facility] 2019-06-01 08:01:06 2019-06-01 09:07:31 Routine Visit Lucinda Sanchez [facility] Profess[facility] nal Building 1.2.840.114 350.1.13.10 4.2.7.2.686 [id number] [facility] 2019-06-01 08:00:00 2019-06-01 08:00:00 Outpatient R [facility] [id number] [facility] 2019-05-30 14:40:58 2019-05-30 22:39:00 Outpatient P JUNE OLIVAREZ MICHAEL 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 Building 1.2.840.114 350.1.13.10 4.2.7.2.686 [id number] [facility] 2019-05-24 00:00:00 2019-05-24 00:00:00 Case Management Lucinda Sanchez [facility] Building 1.2.840.114 350.1.13.10 4.2.7.2.686 [id number] 134 [id number] [facility] 2019-05-20 14:32:18 2019-05-20 15:18:48 Routine Visit Lucinda Sanchez [facility] Building 1.2.840.114 350.1.13.10 4.2.7.2.686 [id number] 134 [id number] [facility] 2019-05-14 11:19:05 2019-05-14 11:49:05 Efficiency Miner Blasting Visit Ultrasound, [facility] 1.2.840.114 350.1.13.10 4.2.7.2.686 [id number] 134 [id number] [facility] 2019-05-07 00:00:00 2019-05-07 00:00:00 Patient Secure Msg Doctor Unassigned, [place] [facility] 1.2114 350.1.13.10 4.2.7.2.686 [id number] [facility] 2019-04-20 11:53:42 2019-04-20 12:08:42 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, [facility] Main Lucinda Sanchez [facility] 1..114 350.1.13.10 4.2.7.2.686 [id number] [facility] 2019-04-20 00:00:00 2019-04-20 00:00:00 Orders Only Doctor Unassigned, [place] [facility] 1.114 350.1.13.10 4.2.7.2.686 [id number] [facility] 2019-04-20 00:00:00 2019-04-20 00:00:00 Case Management Lucinda Sanchez [facility] 1.84.114 350.1.13.10 4.2.7.2.686 [id number] [facility] 2019-03-24 09:00:00 2019-03-24 09:00:00 Outpatient FELICITA OLIVO [facility] [id number] [facility] 2018-12-22 00:00:00 2018-12-22 00:00:00 Case Management Hawa Leos [facility] 1.84.114 350.1.13.10 4.2.7.2.686 [id number] [facility] 2018-12-11 00:00:00 2018-12-11 00:00:00 Case Management Sharan [facility] 1.2.840.114 350.1.13.10 4.2.7.2.686 [id number] [facility] 2018-12-10 07:52:56 2018-12-10 08:57:20 Initial Visit Hawa Leos [facility] 1.2.840.114 350.1.13.10 4.2.7.2.686 [id number] 134 [id number] [facility] 2018-12-03 10:06:24 2018-12-03 10:34:28 Nurse Visit Nurse, [facility] Hawa Leos [facility] 1.20.114 350.1.13.10 4.2.7.2.686 [id number] [facility] 2018-12-03 00:00:00 2018-12-03 00:00:00 Orders Only Doctor Unassigned, [place] [facility] 1.2840.114 350.1.13.10 4.2.7.2.686 [id number] [facility] 2018-11-17 00:00:00 2018-11-17 00:00:00 Telephone [facility] 1.2840.114 350.1.13.10 4.2.7.2.686 [id number] [facility] 2018-11-06 00:00:00 2018-11-06 00:00:00 Orders Only Doctor Unassigned, [place] [facility] 1.2840.114 350.1.13.10 4.2.7.2.686 [id number] [facility] 2018-11-03 13:03:23 2018-11-03 14:40:49 Office Visit Mikalaniyakrysjudy Brandon [facility] 1.2840.114 350.1.13.10 4.2.7.2.686 [id number] [facility] Results Test Description Test Time Test Comments Results Result Co mments Source [facility] [id number] 16:53:12EXAM: XR KUB HISTORY: 24 years-old Female; with Upper Abdominal Pain . 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 There is increased mass effect on the right aspect of thepons andright mesial temporal lobe without underlying edema. Slight mass effect onthe optic chiasm is seen. A component of the above-noted mass extends into the into the right aspectof the suprasellar cistern causing slight leftward displacement of theinfundibulum. Prominence of the pituitary glandis noted new sincecomparison. The ventricles and cerebral sulci are normal in caliber and configuration.No midline shift, hydrocephalus or pathological extra- axial fluidcollection is present. The basal cisterns are otherwise unremarkable. No restricted diffusion is present to suggest acute infarct.No abnormalparenchymal signal abnormality is present. No abnormal gradient blooming. The T2 flow voids for the major intracranial vessels are unremarkable.Right retrosigmoid craniectomy and cranioplasty changes again noted. Noabnormal fluid signal is present in the mastoid air cells or paranasal airsinuses.[facility] Hospital[facility] (D) IMMUNE [id number] 08:08:25* Test Item Value Reference Range Interpretation Comme nts RHIG CANDIDATE? (test code = 5188) No- see comment Patient is not a candidate for RhIg- Patient is Rh Positive.Performed at [facility] Laboratory Services - [facility] Blood [address] [place] [address]Btiq Free: [phone] No. [id number] [facility] Hospital[facility] Cord [id number] 04:49:11* Test Item Value Reference Range Interpretation Comme nts VENOUS BASE EXCESS, CORD (te st code = 2963858578) -2.3 mEq/L VENOUS PH, CORD (test code = 1201648496) 7.33 7.25-7.45 VENOUS PC02, CORD (test code = 3003408000) 46 27-49 VENOUS PO2, CORD (test code = 9149327798) 20 17-41 VENOUS BICARBONATE, CORD (te st code = 4328552309) 24 12-29 [facility] [id number] 01:43:00 Yumiko Vazquez MD ? ? 07/12/2024 ?8:44 PM Central Neuraxial Block Date/Time: 07/12/2024 8:43 PM Performed by: Yumiko Vazquez MDAuthorized by: Tawanda Hartmann MD ?Patient Location: OBReason for Block: Labor analgesia, OB request, Patient request, Surgical anesthesia and Post-op pain managementStaff: ?Anesthesiologist: Tawanda Hartmann MD ?Resident/PERCUSSION INSTRUMENT TUNER: Yumiko Vazquez MD ?Performed by: resident/CRNAPreanesthetic Checklist: patient identified, IV checked, risks and benefits explained, monitors and equipment checked, timeout performed, pre-op evaluation, surgical consent, site marked, ob/surgical consent approval, ob/surgical consent verified and anesthesia consentProcedure: ?Type of Neuraxial: Epidural ?Epidural Description: 1st attempt ? Sterility Prep cap, drape, gloves, hand hygiene and mask ? ?Sedation Level no sedation ?Patient Position: sitting ?Prep: Betadine ? ?Monitoring: director cardiac / EKG, heart rate / toco, heart rate, NIBP and continuous pulse ox ?Location: lumbar (1-5) ?Lumbar: L3-L4 ?Approach: midline ? ?Technique: single shot ?Guidance with: landmark technique}Epidural/Spinal Luke and/or Catheter: ?Epidural/Spinal Kit: BBraun ?Needle Type: Tuohy ?Needle Gauge: 17 G ?Needle Length: 3.5 in (8.89 cm) ?Needle Insertion Depth: 4 ?Catheter Type: multiport ? ?Catheter Size: 19 G ? ?Catheter at Skin Depth: 9 ?Number of Attempts: 1 ?Test Dose: lidocaine 1.5% with epinephrine 1-to-200,000 and negative ? ?Dose: 3 cc ? ?Catheter Securement Method: clear occlusive dressing, surgical tape and liquid medical adhesiveAssessment: ?BlockOutcome: a full evaluation is pending, no apparent complications and patient tolerated procedure well ? ?Procedure Assessment: patient tolerated procedure well with no complicationsNotes: ? Attempt by resident x 1. ?Patient identified. Time out done. Prep x3 and drape in sterile fashion. Infiltrated skin with 1% lidocaine. Needle insertion depth at 4 cm, catheter depth at skin 9 cm. Catheter aspiration negative x3, test dose negative, sterile dressing applied. No apparent complications. Patientinstructed on fall precautions. Pump Settings:12 mL/hr Bolus: 4 mL Lockout: 15 min Yumiko Vazquez MD, PGY-4Dept. Anesthesiology07/12/2024 8:43 PMUnGeneral acute hospital Urinalysis w/o Specific [id number] 20:01:00* Test Item Value Reference Range Interpretation Comme nts POCT PH U (test code = 3254) n.a 5-8 POCT U LEUK EST (test code = 3263) n.a Negative - Negative POCT U NIT (test code = 3262) n.a Negative - Negati ve POCT U PROT (test code = 3259) negative Negative - Negat lori POCT U GLU (test code = 3256) negative Negative - Negati ve POCT U KETONE (test code = 3258) n.a Negative - Neg ative POCT U BLD (test code = 3257) n.a Negative - Negati ve [facility]. Metabolic Panel ([id number] 22:19:54* Test Item Value Reference Range Interpretation Comme nts NA (test code = 9654066510) 133 mmol/L 135-145 L K (test code = 7738067272) 3.9 mmol/L 3.5-5.0 CL (test code = 0314334764) 106 mmol/L 98-108 CO2 TOTAL (test code = 1411617313) 22 mmol/L 23-31 L AGAP (test code = 9016484804) 5 2-16 BUN (test code = 3310725772) 8 mg/dL 7-23 GLUCOSE (test code = 2153673999) 90 mg/dL 70-110 CREATININE (test code = 2160-0) 0.38 mg/dL 0.50-1.04 L TOTAL BILI (test code = 7639017112) 0.6 mg/dL 0.1-1.1 CALCIUM (test code = 5487686407) 8.8 mg/dL 8.6-10.6 T PROTEIN (test code = 4385630437) 6.1 g/dL 6.3-8.2 L ALBUMIN (test code = 5856630661) 3.2 g/dL 3.5-5.0 L ALK PHOS (test code = 1875141713) 203 U/L 34-122 H ALTv (test code = 1742-6) 19 U/L 5-35 AST(SGOT) (test code = 9808029769) 21 U/L 13-40 eGFR (test code = 81793-5) 141.9 mL/min/1.73m2 CKD-EPI eGFR (2020). Assuming creatinine has been stable day-to-day for at least three months, the eGFR indicates Category G1 (>= 90 mL/min/1.73 m2) Lab Interpretation (test code = 09859-2) Abnormal [facility] Urinalysis w/o Specific [id number] 21:35:00* Test Item Value Reference Range Interpretation Comme nts POCT PH U (test code = 3254) 7 mg/dl 5-8 POCT U LEUK EST (test code = 3263) positivr Negative - Negative POCT U NIT (test code = 3262) neg Negative - Negati ve POCT U PROT (test code = 3259) trace Negative - Negat lori POCT U GLU (test code = 3256) neg Negative - Negati ve POCT U KETONE (test code = 3258) neg Negative - Neg ative POCT U BLD (test code = 3257) neg Negative - Negati ve [facility] Pelvis > 14 [id number] 00:04:57Exam: Greater than 14 Weeks Ultrasound, 05/05/2024 5:15 PM. Ordering Physician: HAWA LEOS. History: Pelvic pain, no US on file. . Comparison: None. ? Technique: Greater than 14 weeks obstetric ultrasound was obtainedtransabdominally. Technical Quality: Adequate. Findings: Single intraute rine gestation is identified, in cephalic presentation. movement is observed. ? heart rate is 149-152 beats/min. Placenta is anterior in location. There is no evidence of placenta previaorplacental abruption. The internal cervical os was not well visualizeddue to presentation. Thecervix appeared closed. Amniotic fluid indexis 15 cm. biometric measurements were obtained:Biparietal Diameter 6.7 cm corresponds to estimated gestational age of 27weeks 1 day. ?Head Circumference 26 cm corresponds to estimated gestational age of 28weeks 2 days. ?Abdominal Circumference 25.6 cm corresponds to estimated gestational age of29 weeks 6 days. ?Femur Length 5.5 cm corresponds to estimated gestational age of 29 weeks 2days. ? Estimated gestational age based on sonographic criteria is 28 weeks and 5days. ?Estimated weight is 1357 g. Estimated gestational age based onprovided clinical dates is 27 weeks 5 days. Maternal ovaries are not visualized.[facility] Urinalysis w/o Specific [id number] 14:20:00* Test Item Value Reference Range Interpretation Comme nts POCT PH U (test code = 3254) NA 5-8 POCT U LEUK EST (test code = 3263) NA Negative - N egative POCT U NIT (test code = 3262) NA Negative - Negati ve POCT U PROT (test code = 3259) NEG Negative - Negat lori POCT U GLU (test code = 3256) NEG Negative - Negati ve POCT U KETONE (test code = 3258) NA Negative - Neg ative POCT U BLD (test code = 3257) NA Negative - Negati ve [facility] Urinalysis w/o Specific [id number] 20:14:00* Test Item Value Reference Range Interpretation Comme nts POCT PH U (test code = 3254) n.a 5-8 POCT U LEUK EST (test code = 3263) n.a Negative - Negative POCT U NIT (test code = 3262) n.a Negative - Negati ve POCT U PROT (test code = 3259) negative Negative - Negat lori POCT U GLU (test code = 3256) negative Negative - Negati ve POCT U KETONE (test code = 3258) n.a Negative - Neg ative POCT U BLD (test code = 3257) n.a Negative - Negati ve [facility] Hospital[facility] LAB [id number] 13:36:58Ordered by an unspecified provider.[facility] HospitalPOSD Test 2024-01-05 19:43:00* Test Item Value Reference Range Interpretation Comme nts POCT PREG (test code = 1605) Positive On board controls acceptable with C Line (test code = 3574) Yes POCT PREG LOT # (test code = 3575) POCT PREG TEST DATE ( test code = 3576) [facility] Urinalysis w/o Specific [id number] 19:39:00* Test Item Value Reference Range Interpretation Comme nts POCT PH U (test code = 3254) N/A 5-8 POCT U LEUK EST (test code = 3263) N/A Negative - Negative POCT U NIT (test code = 3262) N/A Negative - Negati ve POCT U PROT (test code = 3259) NEGATIVE Negative - Negat lori POCT U GLU (test code = 3256) NORMAL Negative - Negati ve POCT U KETONE (test code = 3258) N/A Negative - Neg ative POCT U BLD (test code = 3257) N/A Negative - Negati ve [facility] HospitalMR BRAIN W WO [id number] 18:37:52MRI BRAIN WITH AND WITHOUT CONTRAST HISTORY: Ms. 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 We do not recommendradiation at this time. We recommend neurosurgery monitor patient and ifmeningioma grows we will consider radiation therapy COMPARISON:CT head 07/12/2023, multiple brain MRIs with the most recent being07/08/2023 TECHNIQUE: 1.5 Rochelle multiplanar multiweighted imaging of the brain withand without contrast. 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 Stable appearance of the residual enhancing tumoralong the anterior dural margin extending over the right posterior marginof the sella turcica and filling the right Meckel's cave. Unchangedappearance of the small additional residual tumor along the anterior duralmargin more inferiorly abutting the proximal basilar artery just distal tothevertebrobasilar junction. A small postoperative fluid collections ofthe right suboccipital soft tissues. The ventricles and cerebral sulci are normal in caliber and configuration.No midline shift, hydrocephalus is present. The basal cisterns areunremarkable. 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 The T2 flow voids for the major intracranial vessels are unremarkable. Noabnormal fluid signal is present in the mastoid air cells or paranasal airsinuses.[facility] HospitalCT [facility] WO CONTRAST 2023-07-14 13:07:23EXAM: CT HEAD WO CONTRAST HISTORY: Postsurgical resection of right petroclival meningioma resection. TECHNIQUE: Axial CT of the head was performed and reconstructed at 5 mmintervals. Coronal and sagittal reformatted images were generated. COMPARISON: Brain MRI dated on 07/08/2023 FINDINGS: Postsurgical changes of right rectosigmoid craniectomy, metallic meshcranioplasty and resection of right cerebellopontine angle mass. Smallamount of postoperative blood seen in the right side of the prepontinecistern, has decreased in size since prior scan. Small amount ofpostoperative pneumocephalus seen in the right prepontine cistern and overthe right cerebellar hemisphere, has decreased since prior scans.Hypodensity seen in the right brachium pontis and right cerebellarhemisphere causing mild mass effect on the right side of the fourthventricle unchanged since prior scans. No hydrocephalus. No new in tracranial hemorrhage or major territory infarct. Moderate right mastoid effusion. The left mastoidair cells and visualizedparanasal air sinuses are clear..[facility] HospitalSurgical Pathology [id number] 22:01:36* Test Item Value Reference Range Interpretation Comme nts Case Report (test code = 5975057404) Surgical Pathology ?Case: [id number] ? Authorizing Provider: ?Roque Watts MD ? Collected: ? 07/07/2023 1218 ?Ordering Location: ? ? [facility] ? ? ? Received: ?07/07/2023 1224 ? Center [facility] ? Pathologist: ? Cindy Melgar MD ?Intraop: ? Cindy Melgar MD ?Specimens: ? A) - BRAIN, RIGHT BRAIN TUMOR ? B) - BRAIN, RIGHT PETROCLIVAL MASS ? Final Diagnosis (test code = 2425375736) x6zefJHvTINna1kmN GVmbGFuZzEwMzNcZn RuYmpcdWMxIHtccnR fZViofKqgYLK8NBCw IO1mcNigxIv5wOnpE RYacmV9gQAkALxqs5 axFXW9f3pqeisiOCZ nSEuoOs9zcRMumFlc ZuIsKPWwPYk4tU44D ROdbF2aaSWwEHa0VB BhcGVydzEyMjQwXHB bcMCxfSO0CTEbBI0m cmdsMTgwMFxtYXJnc xU9SKOmuESxE3AcNL BwZZ1kzhgxZKV7UEx kEYBaPRB2LsBoHEOp o1Biqft4GgFdiIXoD FxwbGFpblxmczIwXH BhciBBLEIuIEJSQUl OLCBSSUdIVCBQRVRS S8FSRAYKAYIPOP2TK ckwV4IISwaAVS5TGZ WHCZFPIZDFQ4NRSXa PTjpccGFyICAgICAg UZITDA3XEitSP77DA XzVXiCdG7oULJsHFK RYEOPlAoYJNINdC44 BESFQTM5ixHYgjKeb sgHoNKzwt6AuM9AyR jAwMFxhbnNpXGRlZm xlbghiIHNrXVQ2syH qXHVjMVxkZWZmMHtc Dx7krNCwiGvkYoZrH CUux4xmqwJIYNftYr WtM923NJDhWDsui1s nv2JjTXJnmOVvc4D2 FEDOazczmDe0z0bsD sYfFwZ3kXKbIPnzU1 fqogUooEJeT1SofPI prYr3kOczP10ck7A2 XklsS7dsAKAaMSZfJ 1DnEV8cEWUaOda5DL M9XVA4FLKrYWDkT8S fIR1jQNDnwGAaJQj0 f8jqkIpmCPHbLTB6i 9pcMTjdmeK9YO2kgm 6nyEi5o9epqdMlPRA wPWZwiYBVPKZsZ2Tt bMaoKh2gnAh3rThcZ yzkIJI3Dca4OG7gdl 49nxn7kKfxXWIlzfi vPiL6JPztIXWgfinc WFc1QOioKUIdwQK7Z OFmlRUyU0LyMZQaIX 8kbcm3MZT9ZGesJZT xKlC2FTQnkRTaCMCl ePlmMArsa393LSJ9N pTjYF2tE9Zut0E9oZ 9maXRcZGVmdGFiNzI yMVStxd0orTDnDGyl n9MgLWT3xxQ9oKGir SLdDQFaHU77Oddio1 KhKwegAZE0EVYakvO cm7Swl7miZvQjdtNr O6ngD4CjHNNqISFjT XJgObCgmfVcr7Gqm1 RunWTahFp8x1ssPNJ vAZTumIsjo7tbLWF2 KAYpJ8T6eNZto1zyT PghJZCwjWV7cqV7GI PykPEyQ8IvkX0sHYE hYP3ukuh7t5pzIYJ9 LAbiJDAoYoV2tuY5U DBcaGVhZGVyeTcyMF bcv597OCN7KaDpGTQ ne9StM1YwsGjpQ32j lOyaC07eURHwpQtli B7hdEcmxC7eRoGxJy MyNFxxbFxwbGFpblx mMVxmczIwXGxhbmcx HZGsAPftS3egBvAyL OSeyWdnKTfnk0QnJO YxXGNmMlxmczIwXHB hciBJIGhhdmUgcGVy l15vHSuosIHhASBgA SaaHLLmbKhqq5IeP8 xgBJ7zT1UfbWUrnvH fgkYrLVnwPYUzc6v4 dAVkvWphd5QlcENfI X23mvLfFAAtFUJ7XH Dnc1piBJ99sigyBjQ qqQ65waYpbfElDUFv p2sgG7jkuGBmi2Cjw 2TuwsHzUDfdj8PaLA 6akOGzywbqiNC6ACD btLJfxgMkxtP9jFap AISjzD1bfQ1zrHjoy Z1lMkFjIuIfKNlxVF 5vEGVsF9tptFDrPRC lTEPzR0keZaLepX7x dUqrCcnpvqU7YOPuy n19 Final Diagnosis Comment (test code = 4865371272) o1rrbHSoOIYosVUiO YFsHOf1kDCju6O0rt pvLV0nrSbjgWt0kJw aRONitkL3nBHzKIsp h0rjEER5x5lztbxgA DGfWQjbBs0rjHUonA kaHpZwWXHtJSi8gI5 5EBFdjG1kjFUqCQg7 XHBhcGVydzEyMjQwX UOoqTCuuXR1CXCeXY 1hcmdsMTgwMFxtYXJ rriC4XNHibQOaO5Bc GNSlPB1gjkzmCMP2E XxfXQDlKVI7IqSkMQ Ccf3Fovfb5KmLtmLX yZFxwbGFpblxmczIw WXDsaSCuoFDahU6eq N1xSKVvEH3xmiE5ro E9EPLibVLlbQdcHL9 6KAjzbJPuuSUdu7Zg bBEnCI3snyRjIFqeS GFuZCBzaWduaWZpY2 FysNY6mQMrtTTxGPF kyJnjNNG7BuHSyMLo zKrvUIVzbZc9fCF4M VxlUZwlG71fk9MfA5 OyvXDmOO5pYL0vESy yY1caS9CwAGGuNmKg dHVyZXMgYXJlIHNlZ N6rPNVwiGsebUxhLR ByZXNlcnZhdGlvbiB koFuzhLFpS6GqyOa2 RNocjNd9nbP7gEOzB JYbmAGbrXzygj0aPA 5vIGJyYWluIHBhcmV lL6y2gQJubDVryNQa n7FeeBK2geVayaGeo PS5IXOof8AkkQ35XW Ajq27qCVDqQXJ0aE7 tohArteJcm3UvbNn6 VZQzw6RlPN6DQUQdY MH9xJLtZ8rmWxtbmX KcWPxbwbpxaU2qRHn xnUBwwA36QYBrGGOm je28nN1kkJHvfBAxR LFsLDbju1OjcR6udP laEhC6ePYlVWJzetO kKSolF72ja3uvWTZq KEG7fG9dlsYwkcIuP S5eHOtqYUM6 Clinical Information (test code = [id number]) BRAIN TUMOR Gross Description (test code = [id number]) u9yeyJOfBQEphXPGW IL0XAOxEM6awLosxH q1rIxmIMZqeeI1qNO sXKdyo7paPAK2n3rq muSYOpebLIShXM5pB WeiFRNjIQ8fXgXpXZ RlZmYxXHBhcGVydzE yMjQwXHBhcGVyaDE1 HJNoKZ1tzhvnBOyhI TfcJGGzptK8EPDuoY FlC0CbUTHlCZ5sivq lBZA0UXMOChyaKt6n dHRibHtcZjFcZmNoY XJzZXQwXGZuaWwgQX VyLKq0cP0WAafkD40 nk6W9Wvg6SOGrRUSw R4OcPY7lGGQnwRJpN 88BJhrvXVI7ZXCXKn liFcujbSdco4EzfTO cXHNnIFxcaWQgNTEw MDAgXFxkYiBPVlIgI eQqJjN7PNN7NZGyVD k8EIhnFnJQYRGsZvf 1HJRuDFr3SKmkYAsg aCBcXHQgMSBcXGZsI TmwriC4z3iuVXPmcJ AmHAT4CHesb2ikLCy zJTG2PEHfCzTyDHNc EL7ELpZoYRVaGpM9W sN2AoK4QWj8ERUSAy JaSwJoOfX9Pcl5GmH bYJh8FCp4LTxMSfNc ENRdThvsCaDaPON7F jAwIFxcdCAyIFxcc3 MgMyBcXGZsIFxcbmN 9XHBhcmQgDQpccGxh bF3zAkSzMIDHIUCJQ B9EXxAWMKy0ghTaHZ EhXdAqwMNfMI0RZER ihrAnWMkryJyjrV4k gJRjA0hsNyEzPridf GljTmVzdERvYzEgDQ pcbHRycGFyXHNhMzB mQWZcQ2zoPHXqDH1D XGNmMVxmczIwIFNwZ WNpbWVuIEEgaXMgcm DjVEb6MBCmZuXrx1a nKl8sUNvabCGsk2Wn txP6lKXqIPRciqA4p HRhdGlvbiBsYWJlbG VkIHdpdGggdGhlIHB caDujcqSwqnTvFQ8i DYGXROBxtQ9rPIRpH CJyaWdodCBicmFpbi J6fU0eaxOmPL5mRUL xmjEkj5JiUL0zEXQh BHGnM6PiE9B8ETJkR cKqMHVoLzOqt22ba9 2eeEF4sRCycYYwLzY zZ97uoeMuFQgwIdPv eCAwLjMgeCAwLjIgY 20pLiAgVHdvIEgmRS BzbWVhcnMgYXJlIHB nPPXnubWzEgZxDj9l JjWbbnEyHGTsI4Yum 24gaXMgcHJlcGFyZW QuICBUaGUgZnJvemV dVSRxyQ1jbfZipUZq ZmlsdGVyZWQgdGhyb 0GxdBYaNEAwy0BwhB MoOOxsDS5eTMQ0Xs2 tmQAxORSmsnH4j0Va IQhiUJFmPg2YDPAty NMARPU7JF9kBAwiAD XbL2IoW0VvvaQ5GAB hciANCntcKlxlcGlj n0WmxVIuHBWyLFtvn WQgNTEwMDIgXFxkYi PMJsAgGgJxXgM4DVD 9IQEkFBu2VTkyF4TU HWXmUUE8FxswNHC6O gL4TAr6VPUYJh3sEi M3Vay2UWTgIoR3FFY 5OSBcXHQgMiBcXHNz NPHfQQbdnZNoRE9dz ItfRFToTKWdOMB7XL GhbUDCt3EqWWTpGIb iJ6NhIFBnGpYpCtBg DOZWTKFAQL2MMiHXE DElDlAfwZRgJD0XOH BhcmQgDQpccGxhaW5 ezIVpW7dwCiPaFcfd cGljTmVzdERvYzEgD QpcbHRycGFyXHNiMz FwBZNxT7mbRbIxYE0 KXGNmMVxmczIwIFNw ZWNpbWVuIEIgaXMgc mYgVEx6OIHrmO5wKt 3lsTBhlT7unPQyHKt bBZT3jPAsHRYkCOXg WCHeNJ48H8SdpsNhO SwgVUggbnVtYmVyLC DjleojsFLffIH0gc2 kpVv7EWusnMCzxhZa HO2cFZQiflTeo5IsU V8iLTYkPBFaR1PyY3 R1DBSwJvQeLLEsLkA gb17uiAPaj7EzwGSo aQLve00wjDV0uTUbi MFmMgAgZ36boqZrMQ gyLjMgeCAxLjcgeCA fMxWeZ55rOOvvnMPd IGlzIGZpbHRlcmVkI ABfmn76K5rqHUMgzH 7zg5csUtHjGGPhGEV coGLxyME1IRPbeC3s yA66txEdyhPADJ1po RCqLP8KTZVbuoPipV XvuSGhYK0SOOOtrpT NClxzYTMwXGVwaWNY b0XdIXKYMiDhxXPtO FphaWRhbiwgUEEgKE YNV4VzPRlgZBLsW39 xd7IHz1Pqc2mjfUru l9AwiKHvMG42SFCxs QNjLLS7RA1ztUxkRJ IgDQpccGFyZCANClx jZjBcZnMyMiANCn0= Intraoperative Consultation (test code = [id number]) v4nwpKWyIEQrvLApI DQwNFxhbnNpXHNwbH XmB5NtzlieYKeyIV5 sRS4fjWvgdEOqmULc IDDpQzFir5thf344s SHxa8uwMYPYeazigK r8mYfbH02bh1M3Zax bS44ywTWlIJI3LXPt GMOylNIoXMZqWTH1B NWjoOZnQ0pwFYWzZG 1hcmdyMTgwMFxtYXJ grEB0ZPUwaEWaR6Xw FIBdLKkfCJWwijg0T sUrSr9eyBJjyGenMG mbDqbkiVitu6XqhQO cXGlkIDUxMDAxIFxc PXDdP0IJLMDfUEJdX lB7NOAkLYAXVHP4CD x7QAthCUCTJYOxIPU nABv2PQutVGKyVLTG IDgwMDAwMDAwMTIgX FxuaCBcXHQgMSBcXG VrPFqvqlA8k9lyKWN tzECnPWV0JRnstWPx NTEwMDIgXFxkYiBPV zYaMcSdMjP3HQT5DJ SoPPc3DPbwB1TFLDE lTOF5LmU6PNeaKvZ4 YLq8VCDSKx9aIhG2I wc9QBfzJdH4TGJlAJ BcXHQgMiBcXHNzIDM eRKxuePWvNE1mjWck YXJkXHBsYWluXGZzM sLaV5PFD3wBWU6uVC xwYXJccGFyZFxzYjM tRLAanIHLt9MfMGvs bGFpblxmczIwIEEuI FFCDDcXUIJTQV6PEH BSSUdIVCwgQklPUFN ZOlxwYXJccGFyZCAg XOHhYE4qP5EMNyUNE SBYYRoUFK6PC0GSNA NNLCBGQVZPUiBNRU5 HPvaWV03PRQpYBiVF EH1POPXBOLtUEGZOQ UVBUlMpLlxwYXJccG RmCYCau1GtaNYuB98 tbXVuaWNhdGVkIHRv IERyLiBLYXJhcyBvb gH1AvPaJgKsGSTiuV NuCdv0EEYUUX7lSJB 0aWVudCBpZGVudGlm xVIfdZadiySdq52an XJtZWQuXHBhclxwYX Wuk2JmQHmpmMjeRPJ hMzAgTWljaGVsbGUg TWFkZGVuIEZlbGljZ DelCCyzFBWeOY4iHb FaXoBkt7cqdAavi2U tlWMpGS99MNVmoCAu WBJ3GZ2ydCcsXPA3 Previous preliminary result was reported on 07/07/2023 at 1501 CDT Microscopic Description (test code = [id number]) k1iakNUjGMFmvRVgR DQwNFxhbnNpXHNwbH WvL2NxckwsYKgvZF2 nFZ9uqKvfcDKpyFHf UBFkLiIaa5vgk652n PUvy9qvXDPZrbdzkI g2sLccA95yr1G1Giw oV63ifJJoFUF1IQKy OVAohDIbFYNhMRN1U GWadFXtA2tzMLFuZS 1hcmdyMTgwMFxtYXJ dpLM3YEMhkWIvX1Rg IHTuEPgqCZHsatu1G iWhTm3zeDKsjGkiNT xwYXJkXHBsYWluXGZ jLgYaHD2ffE5klNvw gO5syTPwqPM5myuaE d5oCMDXISJztzGqY1 ktNjcgaXMgcGVyZm9 sjKBfGZ2iACJhg0Fp cyBBMSBhbmQgQjEuX HBhcn0= Disclaimer (test code = [id number]) p5tckGObZPSpr4agY GVmbGFuZzEwMzNcZn RuYmpcdWMxIHtccnR dPCamw7DtE3PdZiIg MFxhbnNpXGRlZmxhb vdkCJKiHWQ0jvEpLA VjMVxkZWZmMHtcZm9 udHRibHtcZjAgXGZz l9cvycXZCMqjGoIkF 364QKCqQIkry8ygj4 WfSFTfgXIqr1R4YWH PkwcpvOf1lBllX29d n5V5XzmhC4miWHPeN SGzA0ZbHH2cJIKnTj m4SSE0ZEJ2YTIxDDN tP0FcSB0zUKWglACh RKx8h4azfSedCBAfF WZ4i4xcBCidqzCkVU 9abt1lbKo4v2jmukR gRGVmYXVsdCBQYXJh X7MsyAtzRe1fdDd9h CssHxppWUG0Nli9RC 6ftc57gvu3kElzQTF hwmclDaP6WMbfRDNa xshhJCd1ZEyyIQYwc ES1BWHdtJSjZ7DzNT XhUG6fhrt2VZI5PUp zKDTrLlC5KSQbvHHv VNRsdVlmGYkky363F KO1WzExYK1jM7Uzr5 A8fA0uzQVcPJIfwDM qCqShFLAhws4deXEi WEtun4DxWMU3fxZ5j ZMvvYVpGFEyZY26Sz rpg8OkKkunc0ZyH09 fbXM3JDqkm3veKZ3r VeH1wiPiGVnbh2pas S4pKbQ6WUllVH6iLX 7xUUJppG7gglagIXY nYnJkcmhlYWRccGdi xgPbTg9mhUtkRJF3E RmuN9fopL4jQzT5GJ vsX2riaX5tDCq4YEx kqSM6UCRjiJ7fKB9z sqotg9lzYIsaKQxsD UHgbzX9rzG6ACLsnU EmV1EaxX9dKANmOV4 ixulqk8tcHLY5KJve UFSpQIP3WgSiTTPcm 9Qvfxu5YcAyr3IyyO IaKMwuI61yn238CPN vpbHwC1wcmWBfrfrc yAMaykvdMWceqgW9N UTwjwAvg9NoRJEbYW U5GKidUAdpaGKsWIP fdZubj7ibC4TneALc XHBsYWluXGYxXGZzM jBcbGFuZzEwMzNcaG ljaFxmMVxkYmNoXGY qRGhkR6rmVwZiX4Nm SDZpBnUnwBRwH3sxQ GhpcyByZXBvcnQgbW R0ZSirZ6h8ZXMlprB aeXf1xmHbBtZuRKNt XTS0BVlugVFbIDKvt 0PbkrssyAUiXl6kjL PsWRJdvV3mCPHnBKT jBKwtRQ2uaZb1IWDW cGVjaWZpYyBSZWFnZ T93pcOvGZYEhxubu7 M4EMuuFZQlb2CifKV lM0yja5JsZHWdi09f AV8ox1R3u4iaXAM6F W6rx8AuIRTphEHypU TqOAUjm9Ucietbl2E fPNDvmhUyz5UeSIHq bmQgaXRzIHBlcmZvc c0obpQwMLFeQOYvT9 RlcmlzdGljcyBkZXR tsu5xytSuPSK0ADPN KZXkQVBda9LjiP5lx OZLWPU0hUEqbk4pmr PAtFWwSJDppe99ATK cCC3tH5xdOYUyPDNc ezZthWLpo1JnVLRyu VN4dBTgPA1OMkSOr5 9kIGFuZCBEcnVnIEF tnBgxcVR9kbH2tY2p IChGREEpLlx+IFRoZ GWYBBJaNC3hceWvh3 QgcmVxdWlyZSBhcHB pe5TozJBgd9HiuCtq l2AokEFfzPUmQX9mX HBhclxwYXIgVVRNQi TSJQRowmP6s4UmXXO kKEZeGVO8tWvxsai5 XSTcqI2hXXFlQ9fuv hdlUGifQEWer5HllG 2yyYIOuRBua6NxaTY hvKWPdIRkTE2oviEl WWuHLBpODMQ4jqKwA MMrj6VsLBryW1ofQ3 6voSkafDj2hCK3YQH 1iB3lDvc+IFxwYXJc cGFyIEFwcHJvcHJpY ABwfWadeoBgF4Pnfs YjtT5jxZYsccItBY5 mAR3tV4X9aZRtUJBy pbOer5orFGmyzbWgG mVlbiByZXZpZXdlZC Lrk6MlCZviSLA7ZEx ucyBpbmNsdWRpbmcg SCZFLCBTcGVjaWFsI BW1IYcbdyCbgnRiCY 9ncM9zvYbtrV1ynUP vrUX1giwdUZPcINYq nKraKEChOK1rcCdyt Q2jMqMoAyPiHQwvHF 4hJYVuR0jbyDSyBDC mODSkN3mdApSfvY3p aFxmMVxjZjJcZnMyM FxwYXJccGFyXHBsYW luXGYxXGZzMjBcbGF uZzEwMzNcaGljaFxm MVxkYmNoXGYxXGxvY 7clYcXkJ8GnUNAaDs RlxVZjP0czQWhgNQO 1EBWnBD8swGZfGA69 mQFux4ltTPxamQwns j2iG52gyJHsZOattS puQTOru34cw3BlPEA vizQyzb1sUEDzalS9 vG1xHCExmFseMXEor QYdXLNhq2JjNBoghJ RpemVkIGdsYXNzIHN miTJfhuB5faTtahSq dmUgYXQgdGhlIGFib 1NxBOQtVSfgr5Arbs 5ccGFyXHBhciBBbGw klWWsuE1eW6HgLZAy RAQlxx9dPWAjmA1eU Pufi9PhadqtZSZoVA LyRYDzecNmon7wMVB zsXENTS0FBWbnaFCj e5JweaPjO1yDJJM3P UQwNjYwMjgxKSBleG RlfJBePKEyjd80EZD gjA3ihNytNAYekA6r vW3gaBokxO8oGzSmA gFxJNkrPR7zIQAaN5 inlKInMLVzDOAuH3i uNuUcvL6ycCpnDJuo MkPyZtTeMHbuVCQ9s Q== Embedded Images (test code = [id number]) [facility] [id number] 22:01:36* Test Item Value Reference Range Interpretation Comme nts Case Report (test code = [id number]) Surgical Pathology ?Case: [id number] ? Authorizing Provider: ?Roque Watts MD ? Collected: ? 07/07/2023 1218 ?Ordering Location: ? ? [facility] ? ? ? Received: ?07/07/2023 1224 ? [facility] ? Pathologist: ? Cindy Melgar MD ?Intraop: ? Cindy Melgar MD ?Specimens: ? A) - BRAIN, RIGHT BRAIN TUMOR ? B) - BRAIN, RIGHT PETROCLIVAL MASS ? Final Diagnosis (test code = [id number]) [id number] GVmbGFuZzEwMzNcZn RuYmpcdWMxIHtccnR zKWjhwBshHTQ4NPTz NB9rgDmvtJu3tCjyZ YBvgvC0oRFcDOrrq1 seORM9b2jttskdUYF gIWxtCo2voOBadDnh HlHgMYOaIUs5eL10Y CNahB5uaXVoVXg1NZ BhcGVydzEyMjQwXHB iyIJuqYO6KKZcWS7u cmdsMTgwMFxtYXJnc xH3QNMyoCSiB0UjIB AxTK7voouiKXW2VKm rLXJhNOQ9AqHkNTTa x6Jlijp5BhPlzNJsF FxwbGFpblxmczIwXH BhciBBLEIuIEJSQUl OLCBSSUdIVCBQRVRS W0BELYNMHQWZQX9KQ ahuH7OOEpkUHP4TGO VGWRTVPSOEI8VSEKi PTjpccGFyICAgICAg MMYNGG6XWwxLS67BI XhQDnOhQ4yVTVsSJY XVAEImQkZGPDOmZ68 DDQEGCX8urYTwwEgm hnGsJSwzo6XcT6CuB jAwMFxhbnNpXGRlZm dzrecsXVVmIAQ4ubR qXHVjMVxkZWZmMHtc Sx8lcVQpcKspUpIaA MBik0kyhmZSMKxyOz BhP429ARToGTzfc1u hx8GtTOUmjOPqh4S9 YHAYfzrzjKu2p2mbQ hFoMbP5sGEuWMtdC2 batvIdhGPtW3EjfNA zfVx6kWxrK09pr9C9 ZdbfW1tkCLGyPTScB 8PbGG3cMNMfTsj0NO H0XRE0VVTuLGGlG2B dRT0cEKLsqOOcFXx2 p2mnvZvqNLYlRYM4r 9daKJutemB5LW6fkj 0grGl5s4qnhgJaQFA vBVNorYCLYNAdZ8Sq zQziLh5klYb8uErpB ervSYY4Pix1DZ3iur 62rwb1nQpzBIZwjku nPsA5MTawVUBedysk SCr1SRvwTYUpaYF3R FZcaOAxY9QmNRKzRT 7hbge1DGL2RWkmYWM hMfL8IIBiqDXcMSXd rWhbVMjlr327GOJ9D lWoBK1qU0Wrt9X0zZ 9maXRcZGVmdGFiNzI eELOfcp1cpDNiLKsa k4OlYWR2oqS4aHYmm BKjYCEoEL22Knsjk6 DtTyvpUJA5RXAwbdF hn9Pgm6xqQhAwdtBu A5ujJ5CvCJOsZJJuK RRlMzYefoGug4Dee4 MysJDskLs9y6udSKG fCEUzyJbki8uvOND6 PPQfK4N9xOIyy2onR AqpMAKyhVN0siO7ZV NcdMItW7HpsQ1rNZL gQF3bwjf2a6uaJHM7 EHgoNUHbFbB2euM8E DBcaGVhZGVyeTcyMF vxu522SRN2RrSeQQM ju9VjR4OagVclR18z dPpiO35xMYEsdIeqv A5zeOvtxN5rVdYbXr MyNFxxbFxwbGFpblx mMVxmczIwXGxhbmcx ZABbCMpsF1fgRwFhK VThyUovFXlue9RnZV YxXGNmMlxmczIwXHB hciBJIGhhdmUgcGVy g00xDNeymKAvFCBrW ChnDKFvdFpvo3RmQ6 ybZY6jH5TceMQftyK lpmChPAbeAFJdi8b2 iCTbfEmrk8OoaHEbO P49ybOsEKRgSAV1DX Fdm2fjLE34hkbaVrP xtC19tzHsneOqMDSk u2bpY2tswJMkt8Deb 2WbnzMpVQpvp8YkVG 8vgPEgkwnjqQC0PXE onRKwxwZjxlJ2sTgh QCOvnG7qnU1zhGywq R6dGwUiIeHtHSpmHT 4gXTKeI4uwsNEjKLY zWITiL9byPqIrwH7r fZnaEkxuxxK8PCCsv n19 Final Diagnosis Comment (test code = [id number]) n2ndoRKvNIQieKMlG ESoFGr2rYLoe1C6vb kzPG2pjKwtsWk7sSu rRYFdzwQ1fZKhFCug m6rbMCL1t4vjpoavE BToRIvpTa5btVNzoI bvFnYnBQNtQNz5wP8 8KYTczX9rmCYfMBn0 XHBhcGVydzEyMjQwX IChxVUwxRQ8FSWnXI 1hcmdsMTgwMFxtYXJ cttX7BJAwbQXeY4Sy KYEfKT8nllgbJHO1O MtdQHTgHEK5IoIaMK Csn9Fdedi5ZuGkbBO yZFxwbGFpblxmczIw QSUwrSPzqVCdaQ9cv E9gMLOvHF6hkkN1dt E1YXCmcCNnzDsrLZ9 5LKmbrPGsgYXcj6Vn tYYlTQ7vaxUdHXtrC GFuZCBzaWduaWZpY2 KwaTR3aYWsfZPbKSN shGxgGXN5SeOKbMBc tSxtIIKhuLt7qON5R JxjEGtjX81xu3FsC3 DgvPJgNZ4hWF2mFRy oG3wvK2QqCYZqZhYl dHVyZXMgYXJlIHNlZ C4fWNLrzIlmvJjtVQ ByZXNlcnZhdGlvbiB rfPkoaTRyE4YoxZs7 SKsyzTy9hgK9rIGuO JCiwPEatIojhh2iTT 5vIGJyYWluIHBhcmV yS4q9jGRasCMvdEUj q7WwhET3buOfcyJec XP1LRSow4HxyZ28QS Enp92fBROfFMY0hY4 nzeMbmwFsd1LbrAf7 IRRut5SmZZ3BFTJyF CX1kNHjW8zcLxlbxV PfZXxrwtzmcS5uOAc zmPBmnC98JYZfDLIv tr30mM5auOXjuMCsS IWpUMxyk1LznB3wtU ppLuS5tAJvBHDcebI kZUhlZ92sw6ihOFMg RIY4uG3pffBhjyJiA S6nFPgiUUD3 Clinical Information (test code = [id number]) BRAIN TUMOR Gross Description (test code = [id number]) z7djkPWsBDKyqALKY MC6ODUqVR9muBgbbO l5qQhzTJAstxM1dZQ iKEfvt2eaROG6q2du dlSULmgvCFWhZZ4vW AghMQNyRL3zXmXyXQ RlZmYxXHBhcGVydzE yMjQwXHBhcGVyaDE1 JUPfVB7dfgmuIXuvB YrhRZFfpmX5VESlmF OtR3FsXATgXT5lvbx kMIJ2JURMIhysSf4x dHRibHtcZjFcZmNoY XJzZXQwXGZuaWwgQX NkFMj6nA5AVzwqB10 rr9E1Hsq8OIIbWSLq F3TpLT4aCSQlqMNuK 78YWllwZYK1LTWDVj mjDxqktOexx1WrcHV cXHNnIFxcaWQgNTEw MDAgXFxkYiBPVlIgI aQmPqK3EKF0XARhFL p3OYlfZcJLUIAbXfm 1DYBdDSb1FJhcTNfa aCBcXHQgMSBcXGZsI EfkkjS4w8yvWCAouX NdGYL8NThwl2jrJDn bFYG7WNYgUsWaHYHu US7EAzBxRROrHwP2H yH5XcA1RLj9MQUSMa EmEuBdTzD5Vcn0ChY bGGz1BFw8VFlBGoGv NHEwTeffFsBnXQU2Y jAwIFxcdCAyIFxcc3 MgMyBcXGZsIFxcbmN 9XHBhcmQgDQpccGxh pE7vJvIqDUWJZVMDS D8ODqZLQMl9drBuJP AgLuMvrAGrQO4OHRB svjJqUKveaKvxrX0u oLOfF2ulAzYsTafdm GljTmVzdERvYzEgDQ pcbHRycGFyXHNhMzB xTENrF2zgNJZvFR9E XGNmMVxmczIwIFNwZ WNpbWVuIEEgaXMgcm XzFBb5BLSvNrOng1m eCc9iAUxwjTUln3Sn iuM8dYOxDVEqymF1w HRhdGlvbiBsYWJlbG VkIHdpdGggdGhlIHB dvTmuvjColzAqVC9n PKYEEHLfdV7aUQKqJ CJyaWdodCBicmFpbi X6zY3qpbUlWU3jGXP ujtNsm7JeTO2vJWYr KUVuO2QhM7S6BTHcS oBaIZJaDoJdx40ws1 8yaJK6bCJgfPQaUnB oM07idxUtWNxkOwTc eCAwLjMgeCAwLjIgY 20pLiAgVHdvIEgmRS BzbWVhcnMgYXJlIHB kGPEcpnPvWmFrRo9u EaArsaJfOTVbB9Svw 24gaXMgcHJlcGFyZW QuICBUaGUgZnJvemV rBJJbtT3grpRjaXUo ZmlsdGVyZWQgdGhyb 0OerJTvHIRyo1GtgW RyHJkbTH5fCJF8Ut2 mxUZuWMLcjlX6b9Pf YPiiUNKlRc4OMJEph GAAOTG0DK2fMKzxLI QjZ5KuR7PrtjA7IAD hciANCntcKlxlcGlj d0CsoNPtMFUgGIbrh WQgNTEwMDIgXFxkYi WVEwWdYrArGaJ3XGG 7IAWpTYi3WBivM7DG IJZwOWY0CemvFPO8E bR7FVr8WRNLIm4cTn I3Rdn7CTGpWoI5GOS 5OSBcXHQgMiBcXHNz MJRgLWgwzLDdOF7uk FijGDKwVZBlLIS2CU SqaKKIz3BiWCRlQMk wY1SfTUGbGwMcDaRu WQDPGHBMUC4BYuBED QZwSwEgaQWkBY5WND BhcmQgDQpccGxhaW5 kqXIxG1brZbHtQoqc cGljTmVzdERvYzEgD QpcbHRycGFyXHNiMz ZdGKQfY5emBeIzIM9 KXGNmMVxmczIwIFNw ZWNpbWVuIEIgaXMgc iFwFDv0JYNtqL3sZk 8vmZVejX6erVMdCKe qCJY5kJGiUZWeVKLa MCTjYJ17Q1RpycIsP SwgVUggbnVtYmVyLC UbeheqiCFfnVE1sv5 ijOe7SIlboEIfehNe FE7bCKEizuKpa2WsG A6qCZFvMIDyS5EwV1 M7JOFpWfXxTNEpMcW lj72dxMNtp9KuqDZs mYHsq57yoLY3oHMoa KShGwBfC27clvYcMG gyLjMgeCAxLjcgeCA sFpAgY32qYDbjoXMo IGlzIGZpbHRlcmVkI KTzzq69L3eiWGCtyX 0xa3djKfAtCVXqEZI ueCTtqGL1QHClzE3e xE09osSxhmKCMW6kx XIlHU5GBJAolqQehL WjfKVoXW3XQMZsyvX NClxzYTMwXGVwaWNY f3KiMOMLGdKsoEYxS FphaWRhbiwgUEEgKE DRS7GuHDygBXXdO64 ff5PPe4Ysy4mplEvs c5EcgMFoBU00PYXcl KOiVNM6FK0pnXtbQC IgDQpccGFyZCANClx jZjBcZnMyMiANCn0= Intraoperative Consultation (test code = [id number]) v0csdVHlEUOrfVXnB DQwNFxhbnNpXHNwbH XxI4UhrpxdQSlpVB5 aLO4ejKldiJIriPDe MRFxZvFpa1apg829p NLvs9hdVPTEogdcqW k8yWnqX93tj5Z3Zfl rT80cqGDhHDZ9YAPz WJVlxZSrOWFiLOE9J HCkeLUbT8gcRQExLT 1hcmdyMTgwMFxtYXJ lmGR3AQVoaFMuY2Jf XXUcIBrsXKBgnry1J nDnTu9juCUsnKteKA wzBffquYrbh3ZuvUJ cXGlkIDUxMDAxIFxc RLQbZ7NVSZUdRGVbZ kO3ZDWlPQMIOCU6RB i7ZOtoVGZUXDOfTCU sSIw7UVniTBVnMDFH IDgwMDAwMDAwMTIgX FxuaCBcXHQgMSBcXG HcYPripoI3o7xsRSL tnCVrHIV8JVwteOUz NTEwMDIgXFxkYiBPV oBhEyBfEtO5ETU0IG UpNMc6QGgiY2URBPF cIJH0IwD8UHwaXnV3 PYc0GYBVSo8jFgX5H fy6ZHbaVyD2NUOpQX BcXHQgMiBcXHNzIDM xZLrpfGGcAI8zhYva YXJkXHBsYWluXGZzM uWvH2RVB9sVCO0xFX xwYXJccGFyZFxzYjM sJAJpiCXIl2SiVTxx bGFpblxmczIwIEEuI AQAWWePZPRIOJ8QBL BSSUdIVCwgQklPUFN ZOlxwYXJccGFyZCAg NWAyYO9cC1KNJjSJN QHHYEdHUD6NX7ZTRF NNLCBGQVZPUiBNRU5 IHtiIX71ABJaJZgLT AH8DOMEEDEzZIVPWS UVBUlMpLlxwYXJccG WdGBHso6YksNXvV96 tbXVuaWNhdGVkIHRv IERyLiBLYXJhcyBvb wG9JdFbVzMlPFPfvJ XaYxx3DWPCSD7zIUC 0aWVudCBpZGVudGlm dRJdhQlcltDut15px XJtZWQuXHBhclxwYX Dqc1ScDIapdVnhSWZ hMzAgTWljaGVsbGUg TWFkZGVuIEZlbGljZ UmbLMmqCWNlLV8qSe TgTwStd8vpkSkbm3I olZBwLH60OAHeeNYy OUH0YL1uzSvhWNA0 Previous preliminary result was reported on 07/07/2023 at 1501 CDT Microscopic Description (test code = [id number]) k9rfuWPpAKMkhCZoD DQwNFxhbnNpXHNwbH VjQ1QejapgOOjbZE9 cHX3paOcgjTDaqWTu QSEpYlBis8ako608r AJxy5agMZKZtomirK g0dWatF21td0R9Kre dP75xqMQsXDV8EEFe ANNwuVJcCGYnVAT3T EHfaKBaK8fxQTUkZX 1hcmdyMTgwMFxtYXJ ggHT6EKWcuYPqA8Fl YVRwABimXMSbmtw2J wDeXd4hrBTovYxaIT xwYXJkXHBsYWluXGZ xCwNoDE1lrS3mqXes yV6izMRqkJN0fcssI h9yJKNEQYAptsNrX7 ktNjcgaXMgcGVyZm9 xiSYoAK3wUTMfv6Ux cyBBMSBhbmQgQjEuX HBhcn0= Disclaimer (test code = 7945504933) m7hmlMRyABGno5qfB GVmbGFuZzEwMzNcZn RuYmpcdWMxIHtccnR uIKyre7BwX2FeBhDy MFxhbnNpXGRlZmxhb vglBPFsUSW5xvLyOQ VjMVxkZWZmMHtcZm9 udHRibHtcZjAgXGZz f8upnuVQCYehScWwM 843SWHiDWhnj5mvc8 QdQVMcmUTxs4R9OLG AstzyaQs5wFhgR21m j1W2PjazR8rpICMrW JOeO9CvAA3vHPOtEl h9GWQ8ZLJ2RLJtHDL bQ2TrXZ8jFSGcmHBc WNz0v2golTrlZERaA FO7e9evKGobliHqFA 4mjo0frRu8t4gystP gRGVmYXVsdCBQYXJh P8UvbQyoHf7tsIb9w IwoYtbjCIM1Obr6WQ 9dcr75fuu2uIllFDI nzithUxZ5FAsnKUCp aszfWSw1WMffSEDmk ZN2AHCmvDVtA9YqFS NjCP3zbuj9MHO6MKu cCXJnQaC7CGFcjPFq BOQqpSywLAedj810C ZP0UmVqHB1lJ2Ihn8 R5lJ1zmNXlXPXzgWG kYiFmIVFdnk3fdGXw TDgnr4KfBHH8ieW1f TTyzHGyZKHqEC07Ju fnu4JbAxmlq6HuW38 rvMW3JZgnn2kzWT4t NjI1owSuIHtoa9qfd M7yGvE8VBbzLO2aGK 8vHGNynL9byxdgVKI nYnJkcmhlYWRccGdi tqUtPu3jfVegJWR6U HrbI7jmyQ2uPdG2OK vnE7pntA8wOFc2GFw fzMF3OFFwdK2uFL6e jvhsa6uuADbaWKupY XRnwjY4gfB6SRBzhF YlZ6QxcW7uKBMdLL7 qewjtt2mdEFW4DKor NWQpSHQ4NyEvYVJkz 4Dczqd5JuPnz9SulY RmKVeaK12aj701XYU iqkSzQ0aylZBrwqob qUWvgvqwMFhnlvZ5E SHaciKfj4TxSVSyOF W8NFhpVPodsMByPOB wcLuss4shE4NusJOy XHBsYWluXGYxXGZzM jBcbGFuZzEwMzNcaG ljaFxmMVxkYmNoXGY bGJtcJ2kzEdBiY4Mq LKBgHgNqtNZfD5fwR GhpcyByZXBvcnQgbW A8WBhaA5f9OIQdwbC puDn4hyRiTbQyFWLq DLM9CCliuAFyEJDxm 4AoojuilYKzVr2zqQ HzMTNagH4zODImCON xYUvkQV0grXb4UMPX cGVjaWZpYyBSZWFnZ G80odChWPOFwcbsd9 F8GHbyDOThq2QfdHN lX1bdw5OzETUac81t LW2cz0O3v6ywGVS2T D8fj1AcXSGhyVQsvF JvWPHqn9Kikcpgb6N yNHNsnbXpy9UtPQTg bmQgaXRzIHBlcmZvc u1evdZyEQLnXFMyG5 RlcmlzdGljcyBkZXR dtq6dbrDvELA9RPZM YOXhQDZnv1DcyX8vz UFBAQZ7zLKcmb3omp FEhGVyAIZfsm60WLB lKD9mG3zvQZGmXHXg dfKorMOqx9HeQMWnr XY2bGTnTT9VUmFMk1 9kIGFuZCBEcnVnIEF pkZxofSD9ejJ0cF3b IChGREEpLlx+IFRoZ BTNEVVhZL6lruLic9 QgcmVxdWlyZSBhcHB vl1XwxFTjt7QsbDfk j0YepYNqkTUyUY2hA HBhclxwYXIgVVRNQi MWPSRjihU6f8VgCLO pAGBaTOU8dWxfdix9 KUYaeF8vPVRkB6rng fazBVqpCISwz6ZhwT 7ajNCImORlg6GjvLA nbVVWsRTqQI9anfEu YCcFRYgRJFS5srVsZ TTqs3OnYYvrF6fgT6 3mqLenlOt7aOR5OUH 4kY4xMnk+IFxwYXJc cGFyIEFwcHJvcHJpY KSciQdnkjAnM9Oxoq IxwP0kcZMpezHmBL5 kKU3hL6O1nNXwKIFo isVsw2ivMJvajvDrN mVlbiByZXZpZXdlZC Zpi2JyURlgFDH7EQb ucyBpbmNsdWRpbmcg SCZFLCBTcGVjaWFsI XW2JTwfgzMcnkRyTA 3lyI4bmRnkfR8taRJ uoSM9smzsDOApOXCe nThkPKRcYD2nzVwcz G1gLxXxNlAjTZhtJP 4yOLBrV3iywXZnXON tAMJnN4dgFrAmdI0p aFxmMVxjZjJcZnMyM FxwYXJccGFyXHBsYW luXGYxXGZzMjBcbGF uZzEwMzNcaGljaFxm MVxkYmNoXGYxXGxvY 9dxToGsC9TlRZAoZj SbbKWtG0flHLgpPKM 1INSbKG8prCWfAF02 hKApq5ezWUipiUnug k4qR13klNIpRUbnuV ysOYEmz55da1ChJCC urzTvgt0xUUUitqN1 hH8jTSQofFqhQZJzy JIrFXYnt9QdTKyspZ RpemVkIGdsYXNzIHN uuNQdjqN8biXqxxGt dmUgYXQgdGhlIGFib 5JtXRErFBmqt6Kspv 5ccGFyXHBhciBBbGw jvVXrwM0vK0OsADYr FSCxok8hESMfwQ1uT Otzf9AquojyJLYeQZ BzFBVujyPveb8dPPN vaTKJCR2ZPXqagWRa x7WqebZwT8nWCKL8D UQwNjYwMjgxKSBleG MboEJvEIDqzh91EHC rrL2anQqcHVUpdM6z aW4dmVhzbR1gRyEnY vMxAEewVW2lEWMsX5 kpfXBwQXVgFOFxN2q cFqRduU2luBniDEsx FoZrUpFhVZvhUGV8f Q== Embedded Images (test code = [id number]) [facility] MODIFIED BARIUM [id number] 16:08:03 MODIFIED BARIUM SWALLOW HISTORY: Dysphagia, oral phase TECHNIQUE and FINDINGS: Barium of varying consistencies of from solid through thin liquid wereadministered to the patient during fluoroscopy. The study was performedwith the speech pathologist. No structural abnormality is identified. No laryngeal penetration oraspirations were noted. Please refer to the speech pathologist's note for a full report.[facility] MODIFIED BARIUM [id number] 16:08:03MODIFIED BARIUM SWALLOW HISTORY: Dysphagia, oral phase TECHNIQUE and FINDINGS: Barium of varying consistencies of from solid through thin liquid wereadministered to the patient during fluoroscopy. The study was performedwith the speech pathologist. No structural abnormality is identified. No laryngeal penetration oraspirations were noted. Please refer to the speech pathologist's note for a full report.[facility] Osmolality, Serum or [id number] 05:26:01* Test Item Value Reference Range Interpretation Comme nts OSMOLALITY (test code = 2692-2) 291 278-305 Lab Interpretation (test cod e = 21813-8) [facility] or [id number] 05:26:01 * Test Item Value Reference Range Interpretation Comme nts OSMOLALITY (test code = 2692-2) 291 278-305 Lab Interpretation (test cod e = 81055-2) [facility] [id number] 23:56:28MR BRAIN W WO CONTRAST HISTORY: Female 23 years post op right petroclival lesion resection COMPARISON: Multiple prior studies, most recently MRI brain 06/02/2023 TECHNIQUE: Multiplanar multi weighted imaging of the brain was obtainedbefore and following the administration of 12 mL IV ProHance FINDINGS: Postsurgical changes of right retrosigmoid craniectomy and 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 The bulk of the previously noted mass inthe cerebellopontineangle has been resected. There is residual enhancing tumor along theanterior dural margin extending over the right posterior margin of thesella turcica and filling the right Meckel's cave. There is also a smallresidual amount of tumor along the anterior dural margin more inferiorlyabutting the proximal basilar artery just distal to the vertebrobasilarjunction. A small postoperative fluid collection is noted in the rightsuboccipital soft tissues. The ventricles and cerebral sulci are normal in caliber and configuration.No hydrocephalus, midline shift or pathological extra-axial fluidcollection is present. The basal cisterns are otherwise unremarkable. No restricted diffusion is present to suggest acute-subacute ischemia.Hyperintense T2/FLAIR signal is seen within the inferolateral aspect of theright cerebellar hemisphere and within the lateral aspect of the rightbrachi um pontis and ebony. No additional focus of abnormal parenchymalsignal intensity is present. No focus of abnormal parenchymal enhancementis present. No focus of abnormal parenchymal susceptibility signal loss is present.Extra-axial gradient blooming is noted in the right cerebellopontine anglealong the surgical approach in keeping with postoperative blood products. A small right mastoid effusion is present. No abnormal fluid signal ispresent in the left mastoid air cells within the paranasal airsinuses.[facility] [id number] 23:56:28MR BRAIN W WO CONTRAST HISTORY: Female 23 years post op right petroclival lesion resection COMPARISON: Multiple prior studies, most recently MRI brain 06/02/2023 TECHNIQUE: Multiplanar multi weighted imaging of the brain was obtainedbefore and following the administration of 12 mL IV ProHance FINDINGS: Postsurgical changes of right retrosigmoid craniectomy and 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 The bulk of the previously noted mass inthe cerebellopontineangle has been resected. There is residual enhancing tumor along theanterior dural margin extending over the right posterior margin of thesella turcica and filling the right Meckel's cave. There is also a smallresidual amount of tumor along the anterior dural margin more inferiorlyabutting the proximal basilar artery just distal to the vertebrobasilarjunction. A small postoperative fluid collection is noted in the rightsuboccipital soft tissues. The ventricles and cerebral sulci are normal in caliber and configuration.No hydrocephalus, midline shift or pathological extra-axial fluidcollection is present. The basal cisterns are otherwise unremarkable. No restricted diffusion is present to suggest acute-subacute ischemia.Hyperintense T2/FLAIR signal is seen within the inferolateral aspect of theright cerebellar hemisphere and within the lateral aspect of the rightbrachium pontis and ebony. No additional focus of abnormal parenchymalsignal intensity is present. No focus of abnormal parenchymal enhancementis present. No focus of abnormal parenchymal susceptibility signal loss is present.Extra-axial gradient blooming is noted in the right cerebellopontine anglealong the surgical approach in keeping with postoperative blood products. A small right mastoid effusion is present. No abnormal fluid signal ispresent in the left mastoid air cells within the paranasal airsinuses.[facility] 18:54:31 * Test Item Value Reference Range Interpretation Comme nts NA (test code = 5193456640) 139 mmol/L 135-145 Lab Interpretation (test cod e = 73361-1) Normal [facility]2024-04-02 18:54:31* Test Item Value Reference Range Interpretation Comme nts NA (test code = 7596113625) 139 mmol/L 135-145 Lab Interpretation (test cod e = 91556-2) Normal [facility]2024-04-02 18:54:31* Test Item Value Reference Range Interpretation Comme nts NA (test code = 5220301855) 139 mmol/L 135-145 Lab Interpretation (test cod e = 91439-3) Normal [facility] Acid Whole [id number] 16:36:57* Test Item Value Reference Range Interpretation Comme nts LACTIC ACID (test code = 5422025091) 0.82 mmol/L 0.50-2.20 Lab Interpretation (test cod e = 43725-9) Normal [facility] Acid Whole [id number] 16:36:57* Test Item Value Reference Range Interpretation Comme nts LACTIC ACID (test code = 6970701979) 0.82 mmol/L 0.50-2.20 Lab Interpretation (test cod e = 47998-7) Normal [facility] Acid Whole [id number] 16:36:57* Test Item Value Reference Range Interpretation Comme nts LACTIC ACID (test code = 2274029312) 0.82 mmol/L 0.50-2.20 Lab Interpretation (test cod e = 98170-7) Normal [facility] [id number] 14:38:23* Test Item Value Reference Range Interpretation Comme nts PH (test code = 2) 7.43 7.35-7.45 PCO2 (test code = 8103389696) 29 35-45 L PO2 (test code = 9843151504) 284 80-100 H BE (test code = 0371495303) -6.0 -3.0-3.0 L HCO3 (test code = 0478839275) 19 22-26 L %O2HB (test code = 8231143652) 100.0 % 95.0-98.0 H NA (test code = 0382718435) 135 mmol/L 135-145 K+ (test code = 0051501434) 3.5 mmol/L 3.5-5.0 AC CA IONZ (test code = 0648571181) 4.60 mg/dL 4.50-5.30 GLUCOSE (test code = 7905845271) 102 mg/dL 70-110 AC Hematocrit (test code = 0178152024) 22 40-54 LL THB (test code = 5549603378) 7.5 g/dL 12.0-16.0 LL AC TC02 (test code = 6163644635) 20 mmol/L See_Comment L [Automated messa ge] The system which generated this result transmitted reference range: 23-27 mmol/L. The reference range was not used to interpret this result as normal/abnormal. Lab Interpretation (test code = 74986-3) Abnormal [facility] Care Vyoasyqs7109-02-93 14:38:23* Test Item Value Reference Range Interpretation Comme nts PH (test code = 2) 7.43 7.35-7.45 PCO2 (test code = 7367479144) 29 35-45 L PO2 (test code = 4163970047) 284 80-100 H BE (test code = 9547089933) -6.0 -3.0-3.0 L HCO3 (test code = 4468231387) 19 22-26 L %O2HB (test code = 6900730962) 100.0 % 95.0-98.0 H NA (test code = 1963315861) 135 mmol/L 135-145 K+ (test code = 3801844051) 3.5 mmol/L 3.5-5.0 AC CA IONZ (test code = 0798543576) 4.60 mg/dL 4.50-5.30 GLUCOSE (test code = 4272259186) 102 mg/dL 70-110 AC Hematocrit (test code = 3650806996) 22 40-54 LL THB (test code = 4772907226) 7.5 g/dL 12.0-16.0 LL AC TC02 (test code = 9591847223) 20 mmol/L See_Comment L [Automated messa ge] The system which generated this result transmitted reference range: 23-27 mmol/L. The reference range was not used to interpret this result as normal/abnormal. Lab Interpretation (test code = 33448-4) Abnormal [facility] Acute Care Opvoevbq7626-17-62 14:38:23* Test Item Value Reference Range Interpretation Comme nts PH (test code = 2) 7.43 7.35-7.45 PCO2 (test code = 9766045645) 29 35-45 L PO2 (test code = 7122280794) 284 80-100 H BE (test code = 4764646388) -6.0 -3.0-3.0 L HCO3 (test code = 5870596252) 19 22-26 L %O2HB (test code = 1285453999) 100.0 % 95.0-98.0 H NA (test code = 5354918714) 135 mmol/L 135-145 K+ (test code = 9115039560) 3.5 mmol/L 3.5-5.0 AC CA IONZ (test code = 7477147732) 4.60 mg/dL 4.50-5.30 GLUCOSE (test code = 6961886080) 102 mg/dL 70-110 AC Hematocrit (test code = 6499095896) 22 40-54 LL THB (test code = 9587671353) 7.5 g/dL 12.0-16.0 LL AC TC02 (test code = 5452309404) 20 mmol/L See_Comment L [Automated messa ge] The system which generated this result transmitted reference range: 23-27 mmol/L. The reference range was not used to interpret this result as normal/abnormal. Lab Interpretation (test code = 91141-5) [facility] Fbjpl9722-99-41 14:26:14* Test Item Value Reference Range Interpretation Comme nts LACTIC ACID (test code = 8919865102) 0.86 mmol/L 0.50-2.20 Lab Interpretation (test cod e = 13375-8) [facility] Qzlhc2763-02-60 14:26:14* Test Item Value Reference Range Interpretation Comme nts LACTIC ACID (test code = 3034068025) 0.86 mmol/L 0.50-2.20 Lab Interpretation (test cod e = 67258-1) [facility] Eyhmq4594-63-85 14:26:14* Test Item Value Reference Range Interpretation Comme nts LACTIC ACID (test code = 0351748109) 0.86 mmol/L 0.50-2.20 Lab Interpretation (test cod e = 95273-1) [id number] 13:14:41EXAM: KUB HISTORY: Nausea and vomiting TECHNIQUE:KUB radiograph is obtained. FINDINGS:Bowel gas pattern is nonobstructive. Fecal material is seenthroughout the colon. No radiopaque calculi are seen. Gallbladder isremoved.[facility] [id number] 13:14:41EXAM: KUB HISTORY: Nausea and vomiting TECHNIQUE:KUB radiograph is obtained. FINDINGS:Bowel gas pattern is nonobstructive. Fecal material is seenthroughout the colon. No radiopaque calculi are seen. Gallbladder isremoved.[facility] Pfzsf7419-92-27 12:57:29* Test Item Value Reference Range Interpretation Comme nts LACTIC ACID (test code = 8831726047) 1.07 mmol/L 0.50-2.20 Lab Interpretation (test cod e = 58504-4) [facility] Vzpoz4472-71-10 12:57:29* Test Item Value Reference Range Interpretation Comme nts LACTIC ACID (test code = 1085581831) 1.07 mmol/L 0.50-2.20 Lab Interpretation (test cod e = 36092-3) [facility] Qhbei9334-94-04 12:57:29* Test Item Value Reference Range Interpretation Comme nts LACTIC ACID (test code = 1321179815) 1.07 mmol/L 0.50-2.20 Lab Interpretation (test cod e = 02605-0) Normal [facility] with [id number] 09:45:52* Test Item Value Reference Range Interpretation Comme nts WBC (test code = 6690-2) 20.48 4.30-11.10 H RBC (test code = 789-8) 3.06 3.93-5.25 L HGB (test code = 718-7) 9.5 g/dL 11.6-15.0 L HCT (test code = 4544-3) 27.2 % 35.7-45.2 L MCV (test code = 787-2) 88.9 fL 80.6-95.5 MCH (test code = 785-6) 31.0 pg 25.9-32.8 MCHC (test code = 786-4) 34.9 g/dL 31.6-35.1 RDW-SD (test code = 54127-3) 43.8 fL 39.0-49.9 RDW-CV (test code = 788-0) 13.4 % 12.0-15.5 PLT (test code = 777-3) 297 166-358 MPV (test code = 55941-3) 8.6 fL 9.5-12.9 L NRBC/100 WBC (test code = 7328909297) 0.0 0.0-10.0 NRBC x10^3 (test code = 7110071515) See_Comment [Automated message] The system which generated this result transmitted reference range: 10*3/?L. The reference range was not used to interpret this result as normal/abnormal. GRAN MAT (NEUT) % (test code = 770-8) 95.3 % IMM GRAN % (test code = 4248775606) 0.50 % LYMPH % (test code = 736-9) 2.1 % MONO % (test code = 5905-5) 2.0 % EOS % (test code = 713-8) 0.0 % BASO % (test code = 706-2) 0.1 % GRAN MAT x10^3(ANC) (test code = 5515762977) 19.52 10*3/uL 1.88-7.09 H IMM GRAN x10^3 (test code = 6490621861) 0.11 10*3/uL 0.00-0.06 H LYMPH x10^3 (test code = 731-0) 0.42 10*3/uL 1.32-3.29 L MONO x10^3 (test code = 742-7) 0.40 10*3/uL 0.33-0.92 EOS x10^3 (test code = 711-2) 0.03-0.39 L BASO x10^3 (test code = 704-7) 0.03 10*3/uL 0.01-0.07 Lab Interpretation (test code = 90446-0) Abnormal [facility] with [id number] 09:45:52* Test Item Value Reference Range Interpretation Comme nts WBC (test code = 6690-2) 20.48 4.30-11.10 H RBC (test code = 789-8) 3.06 3.93-5.25 L HGB (test code = 718-7) 9.5 g/dL 11.6-15.0 L HCT (test code = 4544-3) 27.2 % 35.7-45.2 L MCV (test code = 787-2) 88.9 fL 80.6-95.5 MCH (test code = 785-6) 31.0 pg 25.9-32.8 MCHC (test code = 786-4) 34.9 g/dL 31.6-35.1 RDW-SD (test code = 88093-6) 43.8 fL 39.0-49.9 RDW-CV (test code = 788-0) 13.4 % 12.0-15.5 PLT (test code = 777-3) 297 166-358 MPV (test code = 68522-8) 8.6 fL 9.5-12.9 L NRBC/100 WBC (test code = 5693091833) 0.0 0.0-10.0 NRBC x10^3 (test code = 0009464005) See_Comment [Automated message] The system which generated this result transmitted reference range: 10*3/?L. The reference range was not used to interpret this result as normal/abnormal. GRAN MAT (NEUT) % (test code = 770-8) 95.3 % IMM GRAN % (test code = 8643278129) 0.50 % LYMPH % (test code = 736-9) 2.1 % MONO % (test code = 5905-5) 2.0 % EOS % (test code = 713-8) 0.0 % BASO % (test code = 706-2) 0.1 % GRAN MAT x10^3(ANC) (test code = 9204355953) 19.52 10*3/uL 1.88-7.09 H IMM GRAN x10^3 (test code = 2156694480) 0.11 10*3/uL 0.00-0.06 H LYMPH x10^3 (test code = 731-0) 0.42 10*3/uL 1.32-3.29 L MONO x10^3 (test code = 742-7) 0.40 10*3/uL 0.33-0.92 EOS x10^3 (test code = 711-2) 0.03-0.39 L BASO x10^3 (test code = 704-7) 0.03 10*3/uL 0.01-0.07 Lab Interpretation (test code = 39049-7) Abnormal [facility] with [id number] 09:45:52* Test Item Value Reference Range Interpretation Comme nts WBC (test code = 6690-2) 20.48 4.30-11.10 H RBC (test code = 789-8) 3.06 3.93-5.25 L HGB (test code = 718-7) 9.5 g/dL 11.6-15.0 L HCT (test code = 4544-3) 27.2 % 35.7-45.2 L MCV (test code = 787-2) 88.9 fL 80.6-95.5 MCH (test code = 785-6) 31.0 pg 25.9-32.8 MCHC (test code = 786-4) 34.9 g/dL 31.6-35.1 RDW-SD (test code = 04558-9) 43.8 fL 39.0-49.9 RDW-CV (test code = 788-0) 13.4 % 12.0-15.5 PLT (test code = 777-3) 297 166-358 MPV (test code = 28462-7) 8.6 fL 9.5-12.9 L NRBC/100 WBC (test code = 0193175611) 0.0 0.0-10.0 NRBC x10^3 (test code = 4569467760) See_Comment [Automated message] The system which generated this result transmitted reference range: 10*3/?L. The reference range was not used to interpret this result as normal/abnormal. GRAN MAT (NEUT) % (test code = 770-8) 95.3 % IMM GRAN % (test code = 1612923030) 0.50 % LYMPH % (test code = 736-9) 2.1 % MONO % (test code = 5905-5) 2.0 % EOS % (test code = 713-8) 0.0 % BASO % (test code = 706-2) 0.1 % GRAN MAT x10^3(ANC) (test code = 8203188945) 19.52 10*3/uL 1.88-7.09 H IMM GRAN x10^3 (test code = 9937499998) 0.11 10*3/uL 0.00-0.06 H LYMPH x10^3 (test code = 731-0) 0.42 10*3/uL 1.32-3.29 L MONO x10^3 (test code = 742-7) 0.40 10*3/uL 0.33-0.92 EOS x10^3 (test code = 711-2) 0.03-0.39 L BASO x10^3 (test code = 704-7) 0.03 10*3/uL 0.01-0.07 Lab Interpretation (test code = 33758-8) [facility] + Lactic Rplz0586-96-08 09:21:08* Test Item Value Reference Range Interpretation Comme nts PH (test code = 2) 7.42 7.35-7.45 PCO2 (test code = 6956660145) 32 35-45 L PO2 (test code = 7285841313) 136 80-100 H HCO3 (test code = 3234197103) 20 22-26 L BE (test code = 9518442292) -3.8 -3.0-3.0 L THB (test code = 0467308676) 9.5 g/dL 12.0-16.0 L %O2HB (test code = 9765782424) 98.2 % 94.0-99.0 %COHB ART (test code = 0980034010) 0.3 % 0.0-1.5 %METHB ART (test code = 5392309741) 0.3 % 0.4-1.5 L VOL%O2 ART (test code = 7925068095) 13.4 % 15.0-23.0 L NA (test code = 0306691016) 133 mmol/L 135-145 L K+ (test code = 4934955072) 4.2 mmol/L 3.5-5.0 AC CA IONZ (test code = 0743012612) 4.70 mg/dL 4.50-5.30 GLUCOSE (test code = 9046234132) 137 mg/dL 70-110 H LACTIC ACID (test code = 5279680740) 2.99 mmol/L 0.50-2.20 H Lab Interpretation (test cod e = 50550-9) [facility] + Lactic Keqp3684-38-72 09:21:08* Test Item Value Reference Range Interpretation Comme nts PH (test code = 2) 7.42 7.35-7.45 PCO2 (test code = 7156370860) 32 35-45 L PO2 (test code = 9346144604) 136 80-100 H HCO3 (test code = 9099848818) 20 22-26 L BE (test code = 0744287516) -3.8 -3.0-3.0 L THB (test code = 6546609071) 9.5 g/dL 12.0-16.0 L %O2HB (test code = 4032025090) 98.2 % 94.0-99.0 %COHB ART (test code = 5115365716) 0.3 % 0.0-1.5 %METHB ART (test code = 6984622792) 0.3 % 0.4-1.5 L VOL%O2 ART (test code = 5820404261) 13.4 % 15.0-23.0 L NA (test code = 5476730158) 133 mmol/L 135-145 L K+ (test code = 7474712973) 4.2 mmol/L 3.5-5.0 AC CA IONZ (test code = 1103406606) 4.70 mg/dL 4.50-5.30 GLUCOSE (test code = 1025977061) 137 mg/dL 70-110 H LACTIC ACID (test code = 4056973879) 2.99 mmol/L 0.50-2.20 H Lab Interpretation (test cod e = 18967-4) [facility] + Lactic Bfks5969-98-88 09:21:08* Test Item Value Reference Range Interpretation Comme nts PH (test code = 2) 7.42 7.35-7.45 PCO2 (test code = 8343337621) 32 35-45 L PO2 (test code = 0832036348) 136 80-100 H HCO3 (test code = 7109466413) 20 22-26 L BE (test code = 1343096006) -3.8 -3.0-3.0 L THB (test code = 3916300426) 9.5 g/dL 12.0-16.0 L %O2HB (test code = 0762144095) 98.2 % 94.0-99.0 %COHB ART (test code = 1649211468) 0.3 % 0.0-1.5 %METHB ART (test code = 0652367153) 0.3 % 0.4-1.5 L VOL%O2 ART (test code = 7571766303) 13.4 % 15.0-23.0 L NA (test code = 4974411674) 133 mmol/L 135-145 L K+ (test code = 6046704482) 4.2 mmol/L 3.5-5.0 AC CA IONZ (test code = 5583198482) 4.70 mg/dL 4.50-5.30 GLUCOSE (test code = 4535105690) 137 mg/dL 70-110 H LACTIC ACID (test code = 9239723563) 2.99 mmol/L 0.50-2.20 H Lab Interpretation (test cod e = 71028-9) [facility] (NA, K, CL, CO2, GLUCOSE, BUN, CREATININE, CA)2023-07-08 06:00:32* Test Item Value Reference Range Interpretation Comme nts NA (test code = 7712692525) 135 mmol/L 135-145 K (test code = 6609876037) 2.8 mmol/L 3.5-5.0 LL CL (test code = 7585073382) 104 mmol/L 98-108 CO2 TOTAL (test code = 2877998728) 18 mmol/L 23-31 L AGAP (test code = 8952318047) 13 2-16 BUN (test code = 9139525895) 4 mg/dL 7-23 L GLUCOSE (test code = 2976566967) 183 mg/dL 70-110 H CREATININE (test code = 2160-0) 0.44 mg/dL 0.50-1.04 L CALCIUM (test code = 5737041908) 8.5 mg/dL 8.6-10.6 L eGFR (test code = 85034-9) 137.9 mL/min/1.73m2 CKD-EPI eGFR (2020). Assuming creatinine has been stable day-to-day for at least three months, the eGFR indicates Category G1 (>= 90 mL/min/1.73 m2) Lab Interpretation (test code = 15068-5) Abnormal [facility] Metabolic Panel (NA, K, CL, CO2, GLUCOSE, BUN, CREATININE, CA)2023-07-08 06:00:32* Test Item Value Reference Range Interpretation Comme nts NA (test code = 0537230635) 135 mmol/L 135-145 K (test code = 7244477944) 2.8 mmol/L 3.5-5.0 LL CL (test code = 7579169858) 104 mmol/L 98-108 CO2 TOTAL (test code = 8579145194) 18 mmol/L 23-31 L AGAP (test code = 9520227956) 13 2-16 BUN (test code = 3032806052) 4 mg/dL 7-23 L GLUCOSE (test code = 4271300162) 183 mg/dL 70-110 H CREATININE (test code = 2160-0) 0.44 mg/dL 0.50-1.04 L CALCIUM (test code = 3087759457) 8.5 mg/dL 8.6-10.6 L eGFR (test code = 50837-2) 137.9 mL/min/1.73m2 CKD-EPI eGFR (2020). Assuming creatinine has been stable day-to-day for at least three months, the eGFR indicates Category G1 (>= 90 mL/min/1.73 m2) Lab Interpretation (test code = 54942-9) Abnormal [facility] Metabolic Panel (NA, K, CL, CO2, GLUCOSE, BUN, CREATININE, CA)2023-07-08 06:00:32* Test Item Value Reference Range Interpretation Comme nts NA (test code = 4957441986) 135 mmol/L 135-145 K (test code = 8786631291) 2.8 mmol/L 3.5-5.0 LL CL (test code = 7659188103) 104 mmol/L 98-108 CO2 TOTAL (test code = 8053104654) 18 mmol/L 23-31 L AGAP (test code = 9672917552) 13 2-16 BUN (test code = 9563573430) 4 mg/dL 7-23 L GLUCOSE (test code = 8216468195) 183 mg/dL 70-110 H CREATININE (test code = 2160-0) 0.44 mg/dL 0.50-1.04 L CALCIUM (test code = 7144453762) 8.5 mg/dL 8.6-10.6 L eGFR (test code = 32372-1) 137.9 mL/min/1.73m2 CKD-EPI eGFR (2020). Assuming creatinine has been stable day-to-day for at least three months, the eGFR indicates Category G1 (>= 90 mL/min/1.73 m2) Lab Interpretation (test code = 76853-9) [facility] Sfvsj9637-88-37 05:53:58* Test Item Value Reference Range Interpretation Comme nts LACTIC ACID (test code = 4109708894) 6.37 mmol/L 0.50-2.20 H Lab Interpretation (test cod e = 17136-9) [facility]normal [facility] Whole Vryge4004-20-49 05:53:58* Test Item Value Reference Range Interpretation Comme nts LACTIC ACID (test code = 0938185374) 6.37 mmol/L 0.50-2.20 H Lab Interpretation (test cod e = 26794-0) [facility]normal [facility] Whole Ociyo0543-70-67 05:53:58* Test Item Value Reference Range Interpretation Comme nts LACTIC ACID (test code = 2698836491) 6.37 mmol/L 0.50-2.20 H Lab Interpretation (test cod e = 90822-1) [facility] [id number] 05:09:13Ordering Physician: SHERI MUHAMMAD HISTORY: s/p craniestomy. COMPARISON: 05/17/2023 TECHNIQUE: CT of the brain without IV contrast. This study was performedaccording to ALARA principle for radiation dose reduction. FINDINGS: Postsurgical changes of right posterior craniectomy are seen.Pneumocephalus is seen in the surgical bed, basal cisterns, as well asalong the anterior falx. Small amount of hemorrhage is seen along the lefttentorium. No evidence of large hematoma, midline shift, or hydrocephalusis seen. There is partial opacification of the right mastoid air cells. ?[facility] [id number] 05:09:13Ordering Physician: SHERI ? HISTORY: s/p craniestomy. COMPARISON: 05/17/2023 TECHNIQUE: CT of the brain without IV contrast. This study was performedaccording to ALARA principle for radiation dose reduction. FINDINGS: Postsurgical changes of right posterior craniectomy are seen.Pneumocephalus is seen in the surgical bed, basal cisterns, as well asalong the anterior falx. Small amount of hemorrhage is seen along the lefttentorium. No evidence of large hematoma, midline shift, or hydrocephalusis seen. There is partial opacification of the right mastoid air cells. ?[facility] [id number] 05:03:52ORDERING PHYSICIAN: ? SHERI ? HISTORY: aspiration ? COMPARISON: none FINDINGS: Single frontal v iew of the chest. Heart is normal in size. ?There is no pulmonary edema. There are no focalareas ofconsolidation. There is no pneumothorax. ?There are no pleuraleffusions. Osseous structures are unremarkable. ? Please note that chest radiography is not a sensitive modality for thedetection of masses.[facility] 1 [id number] 05:03:52ORDERING PHYSICIAN: ? SHERI ? HISTORY: aspiration ? COMPARISON: none FINDINGS: Single frontal view of the chest. Heart is normal in size. ?There is no pulmonary edema. There are no focalareas ofconsolidation. There is no pneumothorax. ?There are no pleuraleffusions. Osseous structures are unremarkable. ? Please note that chest radiography is not a sensitive modality for thedetection of masses.[facility] + Lactic Eqsg2767-40-10 04:25:01* Test Item Value Reference Range Interpretation Comme nts PH (test code = 2) 7.33 7.35-7.45 L PCO2 (test code = 4514504192) 34 35-45 L PO2 (test code = 7594063457) 117 80-100 H HCO3 (test code = 6998788944) 18 22-26 L BE (test code = 8176000819) -7.3 -3.0-3.0 L THB (test code = 4131289777) 9.8 g/dL 12.0-16.0 L %O2HB (test code = 1791183794) 97.6 % 94.0-99.0 %COHB ART (test code = 8318927304) 0.2 % 0.0-1.5 %METHB ART (test code = 2420323796) 0.3 % 0.4-1.5 L VOL%O2 ART (test code = 8189390519) 13.7 % 15.0-23.0 L NA (test code = 5101817638) 136 mmol/L 135-145 K+ (test code = 3606437730) 3.2 mmol/L 3.5-5.0 L AC CA IONZ (test code = 8167970931) 4.60 mg/dL 4.50-5.30 GLUCOSE (test code = 9705372728) 193 mg/dL 70-110 H LACTIC ACID (test code = 7410278668) 5.63 mmol/L 0.50-2.20 H Lab Interpretation (test cod e = 78687-5) [facility] + Lactic Iohv4883-60-76 04:25:01* Test Item Value Reference Range Interpretation Comme nts PH (test code = 2) 7.33 7.35-7.45 L PCO2 (test code = 5650442241) 34 35-45 L PO2 (test code = 6456282584) 117 80-100 H HCO3 (test code = 7439932831) 18 22-26 L BE (test code = 0660911039) -7.3 -3.0-3.0 L THB (test code = 9466812503) 9.8 g/dL 12.0-16.0 L %O2HB (test code = 0607027251) 97.6 % 94.0-99.0 %COHB ART (test code = 3036057898) 0.2 % 0.0-1.5 %METHB ART (test code = 5987242736) 0.3 % 0.4-1.5 L VOL%O2 ART (test code = 4270071394) 13.7 % 15.0-23.0 L NA (test code = 8190009433) 136 mmol/L 135-145 K+ (test code = 1004124494) 3.2 mmol/L 3.5-5.0 L AC CA IONZ (test code = 2476589971) 4.60 mg/dL 4.50-5.30 GLUCOSE (test code = 6312987422) 193 mg/dL 70-110 H LACTIC ACID (test code = 9042269418) 5.63 mmol/L 0.50-2.20 H Lab Interpretation (test cod e = 66821-8) [facility] + Lactic Fmid7828-96-09 04:25:01* Test Item Value Reference Range Interpretation Comme nts PH (test code = 2) 7.33 7.35-7.45 L PCO2 (test code = 7283052723) 34 35-45 L PO2 (test code = 0790291459) 117 80-100 H HCO3 (test code = 2198498508) 18 22-26 L BE (test code = 4387029429) -7.3 -3.0-3.0 L THB (test code = 6701557108) 9.8 g/dL 12.0-16.0 L %O2HB (test code = 2408479615) 97.6 % 94.0-99.0 %COHB ART (test code = 2905704555) 0.2 % 0.0-1.5 %METHB ART (test code = 4948486591) 0.3 % 0.4-1.5 L VOL%O2 ART (test code = 6913973960) 13.7 % 15.0-23.0 L NA (test code = 6669645108) 136 mmol/L 135-145 K+ (test code = 4831758679) 3.2 mmol/L 3.5-5.0 L AC CA IONZ (test code = 8173248808) 4.60 mg/dL 4.50-5.30 GLUCOSE (test code = 9560785302) 193 mg/dL 70-110 H LACTIC ACID (test code = 5587992318) 5.63 mmol/L 0.50-2.20 H Lab Interpretation (test cod e = 81708-1) Abnormal [facility]2024-04-02 02:26:28* Test Item Value Reference Range Interpretation Comme nts MAGNESIUM (test code = 2191565719) 1.3 mg/dL 1.7-2.4 L Lab Interpretation (test cod e = 05245-5) Abnormal [facility]2024-04-02 02:26:28* Test Item Value Reference Range Interpretation Comme nts PHOSPHORUS (test code = 3695587727) 5.2 mg/dL 2.5-5.0 H Lab Interpretation (test cod e = 40747-9) Abnormal [facility]2024-04-02 02:26:28* Test Item Value Reference Range Interpretation Comme nts MAGNESIUM (test code = 6156684698) 1.3 mg/dL 1.7-2.4 L Lab Interpretation (test cod e = 56548-6) Abnormal [facility]2024-04-02 02:26:28* Test Item Value Reference Range Interpretation Comme nts PHOSPHORUS (test code = 4089864252) 5.2 mg/dL 2.5-5.0 H Lab Interpretation (test cod e = 62979-0) Abnormal [facility]2024-04-02 02:26:28* Test Item Value Reference Range Interpretation Comme nts MAGNESIUM (test code = 7887128117) 1.3 mg/dL 1.7-2.4 L Lab Interpretation (test cod e = 54873-1) Abnormal [facility]2024-04-02 02:26:28* Test Item Value Reference Range Interpretation Comme nts PHOSPHORUS (test code = 7745668775) 5.2 mg/dL 2.5-5.0 H Lab Interpretation (test cod e = 82834-1) Abnormal [facility] Metabolic Panel (NA, K, CL, CO2, GLUCOSE, BUN, CREATININE, CA)2023-07-08 02:26:27* Test Item Value Reference Range Interpretation Comme nts NA (test code = 4501169158) 138 mmol/L 135-145 K (test code = 5469556619) 3.6 mmol/L 3.5-5.0 CL (test code = 4175924285) 108 mmol/L 98-108 CO2 TOTAL (test code = 3126640903) 16 mmol/L 23-31 L AGAP (test code = 6620658655) 14 2-16 BUN (test code = 4394633477) 4 mg/dL 7-23 L GLUCOSE (test code = 9701050817) 151 mg/dL 70-110 H CREATININE (test code = 2160-0) 0.45 mg/dL 0.50-1.04 L CALCIUM (test code = 0675947933) 8.3 mg/dL 8.6-10.6 L eGFR (test code = 64441-5) 137.1 mL/min/1.73m2 CKD-EPI eGFR (2020). Assuming creatinine has been stable day-to-day for at least three months, the eGFR indicates Category G1 (>= 90 mL/min/1.73 m2) Lab Interpretation (test code = 55336-4) Abnormal [facility] Metabolic Panel (NA, K, CL, CO2, GLUCOSE, BUN, CREATININE, CA)2023-07-08 02:26:27* Test Item Value Reference Range Interpretation Comme [facility] NA (test code = 8904795086) 138 mmol/L 135-145 K (test code = 8333265973) 3.6 mmol/L 3.5-5.0 CL (test code = 5371381171) 108 mmol/L 98-108 CO2 TOTAL (test code = 2492802852) 16 mmol/L 23-31 L AGAP (test code = 9574566866) 14 2-16 BUN (test code = 1800637525) 4 mg/dL 7-23 L GLUCOSE (test code = 1319733514) 151 mg/dL 70-110 H CREATININE (test code = 2160-0) 0.45 mg/dL 0.50-1.04 L CALCIUM (test code = 4240025694) 8.3 mg/dL 8.6-10.6 L eGFR (test code = 41251-0) 137.1 mL/min/1.73m2 CKD-EPI eGFR (2020). Assuming creatinine has been stable day-to-day for at least three months, the eGFR indicates Category G1 (>= 90 mL/min/1.73 m2) Lab Interpretation (test code = 10894-6) Abnormal [facility] Metabolic Panel (NA, K, CL, CO2, GLUCOSE, BUN, CREATININE, CA)2023-07-08 02:26:27* Test Item Value Reference Range Interpretation Comme nts NA (test code = 9123412565) 138 mmol/L 135-145 K (test code = 2707919150) 3.6 mmol/L 3.5-5.0 CL (test code = 7762842996) 108 mmol/L 98-108 CO2 TOTAL (test code = 4179913926) 16 mmol/L 23-31 L AGAP (test code = 7275723658) 14 2-16 BUN (test code = 9142701106) 4 mg/dL 7-23 L GLUCOSE (test code = 3308294723) 151 mg/dL 70-110 H CREATININE (test code = 2160-0) 0.45 mg/dL 0.50-1.04 L CALCIUM (test code = 0432555955) 8.3 mg/dL 8.6-10.6 L eGFR (test code = 50765-9) 137.1 mL/min/1.73m2 CKD-EPI eGFR (2020). Assuming creatinine has been stable day-to-day for at least three months, the eGFR indicates Category G1 (>= 90 mL/min/1.73 m2) Lab Interpretation (test code = 06591-2) [facility] Lactic [id number] 02:14:56* Test Item Value Reference Range Interpretation Comme nts PH (test code = 2) 7.31 7.35-7.45 L PCO2 (test code = 6233444027) 34 35-45 L PO2 (test code = 2227938959) 124 80-100 H HCO3 (test code = 1161755824) 17 22-26 L BE (test code = 4939140316) -8.5 -3.0-3.0 L THB (test code = 8946146115) 10.8 g/dL 12.0-16.0 L %O2HB (test code = 3660855136) 97.7 % 94.0-99.0 %COHB ART (test code = 6732711924) 0.2 % 0.0-1.5 %METHB ART (test code = 2333499276) 0.4 % 0.4-1.5 VOL%O2 ART (test code = 9911986343) 15.1 % 15.0-23.0 NA (test code = 5710887408) 139 mmol/L 135-145 K+ (test code = 2625837219) 3.6 mmol/L 3.5-5.0 AC CA IONZ (test code = 7179857793) 4.50 mg/dL 4.50-5.30 GLUCOSE (test code = 3453318100) 143 mg/dL 70-110 H LACTIC ACID (test code = 2241185663) 4.40 mmol/L 0.50-2.20 H Lab Interpretation (test cod e = 15495-8) [facility] L[facility] [id number] 02:14:56* Test Item Value Reference Range Interpretation Comme nts PH (test code = 2) 7.31 7.35-7.45 L PCO2 (test code = 3043720926) 34 35-45 L PO2 (test code = 7303876907) 124 80-100 H HCO3 (test code = 4089790357) 17 22-26 L BE (test code = 0234608839) -8.5 -3.0-3.0 L THB (test code = 9121847262) 10.8 g/dL 12.0-16.0 L %O2HB (test code = 4990371760) 97.7 % 94.0-99.0 %COHB ART (test code = 8956296836) 0.2 % 0.0-1.5 %METHB ART (test code = 6324270132) 0.4 % 0.4-1.5 VOL%O2 ART (test code = 6813297589) 15.1 % 15.0-23.0 NA (test code = 0479569278) 139 mmol/L 135-145 K+ (test code = 3049295926) 3.6 mmol/L 3.5-5.0 AC CA IONZ (test code = 0057101106) 4.50 mg/dL 4.50-5.30 GLUCOSE (test code = 4165411455) 143 mg/dL 70-110 H LACTIC ACID (test code = 9582441646) 4.40 mmol/L 0.50-2.20 H Lab Interpretation (test cod e = 37764-6) [facility] Lactic Uzfx5559-50-40 02:14:56* Test Item Value Reference Range Interpretation Comme nts PH (test code = 2) 7.31 7.35-7.45 L PCO2 (test code = 9248304722) 34 35-45 L PO2 (test code = 2119847543) 124 80-100 H HCO3 (test code = 2910017533) 17 22-26 L BE (test code = 4496275425) -8.5 -3.0-3.0 L THB (test code = 9465569885) 10.8 g/dL 12.0-16.0 L %O2HB (test code = 0079624171) 97.7 % 94.0-99.0 %COHB ART (test code = 8964500476) 0.2 % 0.0-1.5 %METHB ART (test code = 7791345595) 0.4 % 0.4-1.5 VOL%O2 ART (test code = 6003107981) 15.1 % 15.0-23.0 NA (test code = 8847215087) 139 mmol/L 135-145 K+ (test code = 6507881338) 3.6 mmol/L 3.5-5.0 AC CA IONZ (test code = 7288997294) 4.50 mg/dL 4.50-5.30 GLUCOSE (test code = 2471167777) 143 mg/dL 70-110 H LACTIC ACID (test code = 1728784943) 4.40 mmol/L 0.50-2.20 H Lab Interpretation (test cod e = 87583-7) [facility] Wxxd1042-00-89 02:10:28* Test Item Value Reference Range Interpretation Comme nts WBC (test code = 6690-2) 17.16 4.30-11.10 H RBC (test code = 789-8) 3.23 3.93-5.25 L HGB (test code = 718-7) 10.0 g/dL 11.6-15.0 L HCT (test code = 4544-3) 28.8 % 35.7-45.2 L MCV (test code = 787-2) 89.2 fL 80.6-95.5 MCH (test code = 785-6) 31.0 pg 25.9-32.8 MCHC (test code = 786-4) 34.7 g/dL 31.6-35.1 RDW-SD (test code = 33119-5) 44.6 fL 39.0-49.9 RDW-CV (test code = 788-0) 13.5 % 12.0-15.5 PLT (test code = 777-3) 402 166-358 H MPV (test code = 71659-3) 8.7 fL 9.5-12.9 L NRBC/100 WBC (test code = 2869543860) 0.0 0.0-10.0 NRBC x10^3 (test code = 9242009162) See_Comment [Automated message] The system which generated this result transmitted reference range: 10*3/?L. The reference range was not used to interpret this result as normal/abnormal. GRAN MAT (NEUT) % (test code = 770-8) 77.0 % IMM GRAN % (test code = 1943609444) 0.50 % LYMPH % (test code = 736-9) 16.8 % MONO % (test code = 5905-5) 5.4 % EOS % (test code = 713-8) 0.1 % BASO % (test code = 706-2) 0.2 % GRAN MAT x10^3(ANC) (test code = 7479689909) 13.23 10*3/uL 1.88-7.09 H IMM GRAN x10^3 (test code = 5527802880) 0.08 10*3/uL 0.00-0.06 H LYMPH x10^3 (test code = 731-0) 2.88 10*3/uL 1.32-3.29 MONO x10^3 (test code = 742-7) 0.93 10*3/uL 0.33-0.92 H EOS x10^3 (test code = 711-2) 0.03-0.39 L BASO x10^3 (test code = 704-7) 0.03 10*3/uL 0.01-0.07 Lab Interpretation (test code = 73300-3) Abnormal [facility] with Yfsa7850-66-02 02:10:28* Test Item Value Reference Range Interpretation Comme nts WBC (test code = 6690-2) 17.16 4.30-11.10 H RBC (test code = 789-8) 3.23 3.93-5.25 L HGB (test code = 718-7) 10.0 g/dL 11.6-15.0 L HCT (test code = 4544-3) 28.8 % 35.7-45.2 L MCV (test code = 787-2) 89.2 fL 80.6-95.5 MCH (test code = 785-6) 31.0 pg 25.9-32.8 MCHC (test code = 786-4) 34.7 g/dL 31.6-35.1 RDW-SD (test code = 85907-4) 44.6 fL 39.0-49.9 RDW-CV (test code = 788-0) 13.5 % 12.0-15.5 PLT (test code = 777-3) 402 166-358 H MPV (test code = 93322-4) 8.7 fL 9.5-12.9 L NRBC/100 WBC (test code = 1080535155) 0.0 0.0-10.0 NRBC x10^3 (test code = 0635988134) See_Comment [Automated message] The system which generated this result transmitted reference range: 10*3/?L. The reference range was not used to interpret this result as normal/abnormal. GRAN MAT (NEUT) % (test code = 770-8) 77.0 % IMM GRAN % (test code = 5361428415) 0.50 % LYMPH % (test code = 736-9) 16.8 % MONO % (test code = 5905-5) 5.4 % EOS % (test code = 713-8) 0.1 % BASO % (test code = 706-2) 0.2 % GRAN MAT x10^3(ANC) (test code = 8339568344) 13.23 10*3/uL 1.88-7.09 H IMM GRAN x10^3 (test code = 6137829257) 0.08 10*3/uL 0.00-0.06 H LYMPH x10^3 (test code = 731-0) 2.88 10*3/uL 1.32-3.29 MONO x10^3 (test code = 742-7) 0.93 10*3/uL 0.33-0.92 H EOS x10^3 (test code = 711-2) 0.03-0.39 L BASO x10^3 (test code = 704-7) 0.03 10*3/uL 0.01-0.07 Lab Interpretation (test code = 47217-3) Abnormal [facility] with Nsfh3278-75-36 02:10:28* Test Item Value Reference Range Interpretation Comme nts WBC (test code = 6690-2) 17.16 4.30-11.10 H RBC (test code = 789-8) 3.23 3.93-5.25 L HGB (test code = 718-7) 10.0 g/dL 11.6-15.0 L HCT (test code = 4544-3) 28.8 % 35.7-45.2 L MCV (test code = 787-2) 89.2 fL 80.6-95.5 MCH (test code = 785-6) 31.0 pg 25.9-32.8 MCHC (test code = 786-4) 34.7 g/dL 31.6-35.1 RDW-SD (test code = 28265-8) 44.6 fL 39.0-49.9 RDW-CV (test code = 788-0) 13.5 % 12.0-15.5 PLT (test code = 777-3) 402 166-358 H MPV (test code = 39263-8) 8.7 fL 9.5-12.9 L NRBC/100 WBC (test code = 3016499705) 0.0 0.0-10.0 NRBC x10^3 (test code = 6852580517) See_Comment [Automated message] The system which generated this result transmitted reference range: 10*3/?L. The reference range was not used to interpret this result as normal/abnormal. GRAN MAT (NEUT) % (test code = 770-8) 77.0 % IMM GRAN % (test code = 2770610950) 0.50 % LYMPH % (test code = 736-9) 16.8 % MONO % (test code = 5905-5) 5.4 % EOS % (test code = 713-8) 0.1 % BASO % (test code = 706-2) 0.2 % GRAN MAT x10^3(ANC) (test code = 1853680511) 13.23 10*3/uL 1.88-7.09 H IMM GRAN x10^3 (test code = 3313173803) 0.08 10*3/uL 0.00-0.06 H LYMPH x10^3 (test code = 731-0) 2.88 10*3/uL 1.32-3.29 MONO x10^3 (test code = 742-7) 0.93 10*3/uL 0.33-0.92 H EOS x10^3 (test code = 711-2) 0.03-0.39 L BASO x10^3 (test code = 704-7) 0.03 10*3/uL 0.01-0.07 Lab Interpretation (test code = 19363-2) Abnormal [facility] Crnbcjax1970-86-42 19:28:38* Test Item Value Reference Range Interpretation Comme nts PH (test code = 2) 7.42 7.35-7.45 PCO2 (test code = 0238827712) 32 35-45 L PO2 (test code = 0851155951) 320 80-100 H BE (test code = 1109666500) -4.0 -3.0-3.0 L HCO3 (test code = 3423764791) 20 22-26 L %O2HB (test code = 4916478826) 100.0 % 95.0-98.0 H NA (test code = 4352712261) 139 mmol/L 135-145 K+ (test code = 2475178682) 3.7 mmol/L 3.5-5.0 AC CA IONZ (test code = 3130295618) 4.90 mg/dL 4.50-5.30 GLUCOSE (test code = 5202887883) 115 mg/dL 70-110 H AC Hematocrit (test code = 0643747128) 27 40-54 L THB (test code = 8160305425) 9.2 g/dL 12.0-16.0 L AC TC02 (test code = 9135853897) 21 mmol/L See_Comment L [Automated messa ge] The system which generated this result transmitted reference range: 23-27 mmol/L. The reference range was not used to interpret this result as normal/abnormal. Lab Interpretation (test code = 21564-6) Abnormal [facility] Tehqfnbp8202-76-55 19:28:38* Test Item Value Reference Range Interpretation Comme nts PH (test code = 2) 7.42 7.35-7.45 PCO2 (test code = 1729773402) 32 35-45 L PO2 (test code = 6181423030) 320 80-100 H BE (test code = 1062056743) -4.0 -3.0-3.0 L HCO3 (test code = 6578420805) 20 22-26 L %O2HB (test code = 4068609590) 100.0 % 95.0-98.0 H NA (test code = 8334960397) 139 mmol/L 135-145 K+ (test code = 5297388993) 3.7 mmol/L 3.5-5.0 AC CA IONZ (test code = 2769514471) 4.90 mg/dL 4.50-5.30 GLUCOSE (test code = 6881738915) 115 mg/dL 70-110 H AC Hematocrit (test code = 4918519292) 27 40-54 L THB (test code = 7258225709) 9.2 g/dL 12.0-16.0 L AC TC02 (test code = 7584609723) 21 mmol/L See_Comment L [Automated messa ge] The system which generated this result transmitted reference range: 23-27 mmol/L. The reference range was not used to interpret this result as normal/abnormal. Lab Interpretation (test code = 65126-2) Abnormal [facility] Xoeeovvz5829-56-75 19:28:38* Test Item Value Reference Range Interpretation Comme nts PH (test code = 2) 7.42 7.35-7.45 PCO2 (test code = 2388927608) 32 35-45 L PO2 (test code = 9738555572) 320 80-100 H BE (test code = 7386535943) -4.0 -3.0-3.0 L HCO3 (test code = 1524652905) 20 22-26 L %O2HB (test code = 5210070297) 100.0 % 95.0-98.0 H NA (test code = 9756950822) 139 mmol/L 135-145 K+ (test code = 9531726147) 3.7 mmol/L 3.5-5.0 AC CA IONZ (test code = 6975175114) 4.90 mg/dL 4.50-5.30 GLUCOSE (test code = 4258644667) 115 mg/dL 70-110 H AC Hematocrit (test code = 5880273780) 27 40-54 L THB (test code = 3951199494) 9.2 g/dL 12.0-16.0 L AC TC02 (test code = 6859934880) 21 mmol/L See_Comment L [Automated messa ge] The system which generated this result transmitted reference range: 23-27 mmol/L. The reference range was not used to interpret this result as normal/abnormal. Lab Interpretation (test code = 94706-4) Abnormal [facility] Iowslyyb1994-78-01 17:50:49* Test Item Value Reference Range Interpretation Comme nts PH (test code = 2) 7.40 7.35-7.45 PCO2 (test code = 5681475672) 33 35-45 L PO2 (test code = 6313740760) 340 80-100 H BE (test code = 4045701283) -4.0 -3.0-3.0 L HCO3 (test code = 9121366335) 21 22-26 L %O2HB (test code = 3421956220) 100.0 % 95.0-98.0 H NA (test code = 4405683680) 139 mmol/L 135-145 K+ (test code = 6903422544) 3.8 mmol/L 3.5-5.0 AC CA IONZ (test code = 9872610837) 5.00 mg/dL 4.50-5.30 GLUCOSE (test code = 5420900532) 117 mg/dL 70-110 H AC Hematocrit (test code = 7308398377) 30 40-54 L THB (test code = 2819947762) 10.2 g/dL 12.0-16.0 L AC TC02 (test code = 2731874463) 22 mmol/L See_Comment L [Automated messa ge] The system which generated this result transmitted reference range: 23-27 mmol/L. The reference range was not used to interpret this result as normal/abnormal. Lab Interpretation (test code = 48205-1) Abnormal [facility] Eexekdhr7872-65-49 17:50:49* Test Item Value Reference Range Interpretation Comme nts PH (test code = 2) 7.40 7.35-7.45 PCO2 (test code = 1948551054) 33 35-45 L PO2 (test code = 7171363340) 340 80-100 H BE (test code = 5115641148) -4.0 -3.0-3.0 L HCO3 (test code = 3741945741) 21 22-26 L %O2HB (test code = 8206699756) 100.0 % 95.0-98.0 H NA (test code = 4035323003) 139 mmol/L 135-145 K+ (test code = 0829271868) 3.8 mmol/L 3.5-5.0 AC CA IONZ (test code = 2970899691) 5.00 mg/dL 4.50-5.30 GLUCOSE (test code = 8192388671) 117 mg/dL 70-110 H AC Hematocrit (test code = 6918362411) 30 40-54 L THB (test code = 5729310580) 10.2 g/dL 12.0-16.0 L AC TC02 (test code = 0629922915) 22 mmol/L See_Comment L [Automated messa ge] The system which generated this result transmitted reference range: 23-27 mmol/L. The reference range was not used to interpret this result as normal/abnormal. Lab Interpretation (test code = 10788-1) Abnormal [facility] Atnghwgq1062-48-47 17:50:49* Test Item Value Reference Range Interpretation Comme nts PH (test code = 2) 7.40 7.35-7.45 PCO2 (test code = 7965717135) 33 35-45 L PO2 (test code = 3091106890) 340 80-100 H BE (test code = 6904268237) -4.0 -3.0-3.0 L HCO3 (test code = 2910586749) 21 22-26 L %O2HB (test code = 6405329218) 100.0 % 95.0-98.0 H NA (test code = 6190748560) 139 mmol/L 135-145 K+ (test code = 9528115017) 3.8 mmol/L 3.5-5.0 AC CA IONZ (test code = 0170461729) 5.00 mg/dL 4.50-5.30 GLUCOSE (test code = 9463951154) 117 mg/dL 70-110 H AC Hematocrit (test code = 5006827843) 30 40-54 L THB (test code = 9195524929) 10.2 g/dL 12.0-16.0 L AC TC02 (test code = 8563440041) 22 mmol/L See_Comment L [Automated messa ge] The system which generated this result transmitted reference range: 23-27 mmol/L. The reference range was not used to interpret this result as normal/abnormal. Lab Interpretation (test code = 37418-2) Abnormal [facility] Wlhpfrpz8740-04-09 15:07:26* Test Item Value Reference Range Interpretation Comme nts PH (test code = 2) 7.46 7.35-7.45 H PCO2 (test code = 8127336789) 31 35-45 L PO2 (test code = 1285872578) 448 80-100 H BE (test code = 6770914851) -2.0 -3.0-3.0 HCO3 (test code = 5870690160) 22 22-26 %O2HB (test code = 1688556308) 100.0 % 95.0-98.0 H NA (test code = 2940991013) 141 mmol/L 135-145 K+ (test code = 3941078768) 3.5 mmol/L 3.5-5.0 AC CA IONZ (test code = 9787866396) 4.90 mg/dL 4.50-5.30 GLUCOSE (test code = 0695032894) 104 mg/dL 70-110 AC Hematocrit (test code = 1018453609) 31 40-54 L THB (test code = 2426623907) 10.5 g/dL 12.0-16.0 L AC TC02 (test code = 4559539716) 23 mmol/L See_Comment [Automated messa ge] The system which generated this result transmitted reference range: 23-27 mmol/L. The reference range was not used to interpret this result as normal/abnormal. Lab Interpretation (test code = 23658-2) Abnormal [facility] Jzdeqjvq0876-29-09 15:07:26* Test Item Value Reference Range Interpretation Comme nts PH (test code = 2) 7.46 7.35-7.45 H PCO2 (test code = 5639224654) 31 35-45 L PO2 (test code = 6686363581) 448 80-100 H BE (test code = 0723314491) -2.0 -3.0-3.0 HCO3 (test code = 1846544560) 22 22-26 %O2HB (test code = 7650757237) 100.0 % 95.0-98.0 H NA (test code = 5088705163) 141 mmol/L 135-145 K+ (test code = 5142393693) 3.5 mmol/L 3.5-5.0 AC CA IONZ (test code = 0324394929) 4.90 mg/dL 4.50-5.30 GLUCOSE (test code = 0414623458) 104 mg/dL 70-110 AC Hematocrit (test code = 0578057214) 31 40-54 L THB (test code = 0249492978) 10.5 g/dL 12.0-16.0 L AC TC02 (test code = 1464468571) 23 mmol/L See_Comment [Automated messa ge] The system which generated this result transmitted reference range: 23-27 mmol/L. The reference range was not used to interpret this result as normal/abnormal. Lab Interpretation (test code = 77487-6) Abnormal [facility] Gcacrrpr5067-70-54 15:07:26* Test Item Value Reference Range Interpretation Comme nts PH (test code = 2) 7.46 7.35-7.45 H PCO2 (test code = 2828495079) 31 35-45 L PO2 (test code = 7767710960) 448 80-100 H BE (test code = 5411917975) -2.0 -3.0-3.0 HCO3 (test code = 1118551211) 22 22-26 %O2HB (test code = 7014976017) 100.0 % 95.0-98.0 H NA (test code = 9278955460) 141 mmol/L 135-145 K+ (test code = 5097323023) 3.5 mmol/L 3.5-5.0 AC CA IONZ (test code = 4679861957) 4.90 mg/dL 4.50-5.30 GLUCOSE (test code = 6015271458) 104 mg/dL 70-110 AC Hematocrit (test code = 1014616972) 31 40-54 L THB (test code = 3507319436) 10.5 g/dL 12.0-16.0 L AC TC02 (test code = 0223176122) 23 mmol/L See_Comment [Automated messa ge] The system which generated this result transmitted reference range: 23-27 mmol/L. The reference range was not used to interpret this result as normal/abnormal. Lab Interpretation (test code = 67596-7) [facility] [id number] 14:00:00Mani Reynolds DO ? ? 07/07/2023 ?9:01 AM Arterial Line Date/Time: 07/07/2023 9:00 AM Performed by: Mani Reynolds DOArterial Line Placement: ?Ultrasound-Guided: ultrasound guided ? ?Patient Location: ?OR ?Indication: continuous blood pressure monitoring and blood sampling needed ?Staff: ?Supervising Anesthesiologist: ?Mario Busch DO ?Resident: ?Mani Reynolds DOProcedkimberly Detail: ?Catheter Size: ?20gauge ?Catheter Length: ?1 and 3/4 inch ?Catheter Type: ?Arrow ?Seldinger Technique?: Yes ? ?Laterality: ?Right ?Site: ?Radial artery ?Line Secured: ?Tape, Tegaderm and biopatch ?Preparation: ?Chloroprep, sterile gloves, guidewire removed intact, biopatch applied and drapeEvents: ?Events: ?Patient tolerated procedure well with no complications and all wires accounted forComments: ? (+) Local infiltration with Lidocaine, STF, smooth and atraumatic. [facility] Axew7615-27-96 14:00:00Mani Reynolds DO ? ? 07/07/2023 ?9:01 AM Arterial Line Date/Time: 07/07/2023 9:00 AM Performed by: Mani Reynolds DOArterial Line Placement: ?Ultrasound-Guided: ultrasound guided ? ?Patient Location: ?OR ?Indication: continuous blood pressure monitoring and blood sampling needed ?Staff: ?Supervising Anesthesiologist: ?Mario Busch DO ?Resident: ?Mani Reynolds DOProcedure Detail: ?Catheter Size: ?20gauge ?Catheter Length: ?1 and 3/4 inch ?Catheter Type: ?Arrow ?Seldinger Technique?: Yes ? ?Laterality: ?Right ?Site: ?Radial artery ?Line Secured: ?Tape, Tegaderm and biopatch ?Preparation: ?Chloroprep, sterile gloves, guidewire removed intact, biopatch applied and drapeEvents: ?Events: ?Patient tolerated procedure well with no complications and all wires accounted forComments: ? (+) Local infiltration with Lidocaine, STF, smooth and atraumatic. [facility] Qvcg6781-75-59 14:00:00Mani Reynolds DO ? ? 07/07/2023 ?9:01 AM Arterial Line Date/Time: 07/07/2023 9:00 AM Performed by: Mani Reynolds DOArtermarly Line Placement: ?Ultrasound-Guided: ultrasound guided ? ?Patient Location: ?OR ?Indication: continuous blood pressure monitoring and blood sampling needed ?Staff: ?Supervising Anesthesiologist: ?Mario Busch DO ?Resident: ?Mani Reynolds DOProcedure Detail: ?Catheter Size: ?20gauge ?Catheter Length: ?1 and 3/4 inch ?Catheter Type: ?Arrow ?Seldinger Technique?: Yes ? ?Laterality: ?Right ?Site: ?Radial artery ?Line Secured: ?Tape, Tegaderm and biopatch ?Preparation: ?Chloroprep, sterile gloves, guidewire removed intact, biopatch applied and drapeEvents: ?Events: ?Patient tolerated procedure well with no complications and all wires accounted forComments: ? (+) Local infiltration with Lidocaine, STF, smooth and atraumatic. [facility] EquywjEjukfbalrk7053-22-18 12:50:00Mani Reynolds DO ? ? 07/07/2023 ?9:03 AMIntubationDate/Time: 07/07/2023 7:50 AMUrgency: elective Airway not difficult General Information and Staff Patient location during procedure: ORPerformed: resident/PERCUSSION INSTRUMENT TUNER Performed by: Mani Reynolds DOAuthorized by: Mario Busch DO ? Indications and Patient ConditionIndications for airway management: anesthesiaSpontaneous ventilation: presentSedation level: mihai pPreoxygenated: yesPatient position: sniffingMILS maintained throughoutMask difficulty assessment: 0 - not attempted Final Airway DetailsFinal airway type: endotracheal airway Successful airway: ETT and reinforced tubeCuffed: yes Successful intubation technique: video laryngoscopyFacilitating devices/methods: intubating styletEndotracheal tube insertion site: oralBlade: MacintoshBlade size: #3ETTsize (mm): 7.0Cormack-Lehane Classification: grade I - full view of glottisPlacement verified by: chest auscultation and capnometry Measured from: lipsETT to lips (cm): 21Number of attempts at approach: 1Ventilation between attempts: noneNumber of other approaches attempted: 0 Additional CommentsGlottic opening visualized atraumatically. Lips, teeth, tongue, and gums remain in same condition as prior to intubation. Smooth, atraumatic, dentition and lips unchanged from [facility]op.[facility] 12[facility]50:00Mani Reynolds DO ? ? 07/07/2023 ?9:03 AMIntubationDate/Time: 07/07/2023 7:50 AMUrgency: elective Airway not difficult General Information and Staff Patient location during procedure: ORPerformed: resident/PERCUSSION INSTRUMENT TUNER Performed by: Mani Reynolds DOAuthorized by: Mario Busch DO ? Indications and Patient Condi tionIndications for airway management: anesthesiaSpontaneous ventilation: presentSedation level: deepPreoxygenated: yesPatient position: sniffingMILS maintained throughoutMask difficulty assessment: 0 - not attempted Final Airway DetailsFinal airway type: endotracheal airway Successful airway: ETT and reinforced tubeCuffed: yes Successful intubation technique: video laryngoscopyFacilitating devices/methods: intubating styletEndotracheal tube insertion site: oralBlade: MacintoshBlade size: #3ETTsize (mm): 7.0Cormack- Lehane Classification: grade I - full view of glottisPlacement verified by: ch est auscultation and capnometry Measured from: lipsETT to lips (cm): 21Number of attempts at approach: 1Ventilation between attempts: noneNumber of other approaches attempted: 0 Additional CommentsGlottic opening visualized atraumatically. Lips, teeth, tongue, and gums remain in same condition as prior to intubation. Smooth, atraumatic, dentition and lips unchanged from pre-op. [facility] 12:50:00Mani Reynolds, ? ? 07/07/2023 ?9:03 AMIntubationDate/Time: 07/07/2023 7:50 AMUrgency: elective Airway not difficult General Information and Staff Patient location during procedure: ORPerformed: resident/PERCUSSION INSTRUMENT TUNER Performed by: Mani Reynolds, Authorized by: Mario Busch DO ? Indications and Patient ConditionIndications for airway management: anesthesiaSpontaneous ventilation: presentSedation level: mihai pPreoxygenated: yesPatient position: sniffingMILS maintained throughoutMask difficulty assessment: 0 - not attempted Final Airway DetailsFinal airway type: endotracheal airway Successful airway: ETT and reinforced tubeCuffed: yes Successful intubation technique: video laryngoscopyFacilitating devices/methods: intubating styletEndotracheal tube insertion site: oralBlade: MacintoshBlade size: #3ETTsize (mm): 7.0Cormack-Lehane Classification: grade I - full view of glottisPlacement verified by: chest auscultation and capnometry Measured from: lipsETT to lips (cm): 21Number of attempts at approach: 1Ventilation between attempts: noneNumber of other approaches attempted: 0 Additional CommentsGlottic opening visualized atraumatically. Lips, teeth, tongue, and gums remain in same condition as prior to intubation. Smooth, atraumatic, dentition and lips unchanged from pre-op.[facility] TEST 2023-07-07 11:03:00* Test Item Value Reference Range Interpretation Comme nts POCT PREG (test code = 1605) Negative On board controls acceptable with C Line (test code = 3574) Yes POCT PREG LOT # (test code = 3575) POCT PREG TEST DATE ( test code = 3576) Lab Interpretation (test cod e = 28478-2) Normal [facility] [id number] 11:03:00* Test Item Value Reference Range Interpretation Comme nts POCT PREG (test code = 1605) Negative On board controls acceptable with C Line (test code = 3574) Yes POCT PREG LOT # (test code = 3575) POCT PREG TEST DATE ( test code = 3576) Lab Interpretation (test cod e = 95969-1) [id number]:03:[facility]* Test Item Value Reference Range Interpretation Comme nts POCT PREG (test code = 1605) Negative On board controls acceptable with C Line (test code = 3574) Yes POCT PREG LOT # (test code = 3575) POCT PREG TEST DATE ( test code = 3576) Lab Interpretation (test cod e = 45351-0) [facility] [id number] 17:10:17MR BRAIN W WO CONTRAST PROVIDED 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 ADDITIONAL HISTORY OBTAINED FROM ELECTRONIC MEDICAL RECORD: Patient withright CP mass. Follow-up exam. COMPARISON: MRI dated 03/20/2023 TECHNIQUE: Multiplanar mu ltiweighted MR of the brain was performed beforeand after the administration of gadolinium based intravenous contrast. 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 CPcomponent measuring 2.7 x 1.5 x1.9 cm (AP by TV by CC) and Meckel's cavecomponent measuring 1.8 x 0.8 x 1.5 cm (AP by TV by CC), grossly unchangedin size. There is mass effect on the right cerebral peduncle and right ponswithout underlying edema. The mass demonstrate restricted diffusion. Thereis unchanged foci of susceptibilitysignal loss within the massposteriorly, likely representing residual blood products from prior known hemorrhage. Abutment of right superior cerebellar artery. The basilarartery and [employer] are in very close proximity to the mass. The ventricles and sulci are unchanged in caliber and configuration. Thebasal cisterns are unremarkable. No mass effect, midline shift or pathological extra-axial fluid collectionis present. ? No restricted diffusion to suggest acute/subacute ischemia. No abnormal T2 signalin the paranasal sinuses or mastoid air cells. The T2 flow voids for the major intracranial vesselsare unremarkable.[facility] HospitalMR ABDOMEN W WO [id number] 22:53:09MR ABDOMEN W WO CONTRAST COMPARISON: CT abdomen pelvis dated back to 08/31/2020, most recent on07/07/2021, MRI abdomen 10/16/2020 ultrasound 08/03/2020 INDICATION: Liver lesion, > 1cm ? TECHNIQUE: Multiplanar, multisequence MR imaging of the abdomen wasacquired prior to and following the administration of 12 mL of Eovist asintravenous contrast. FINDINGS: Lower chest: ?Lung bases are clear. Hepatobil iary: Normal contour and size. Stable 2.6 cm ?VII and a 1.6 cmsegment IV masses (14:12) which retain the hepatobiliary contrast on 20minute delayed phase consistent with known focal nodular hyperplasia. Post cholecystectomy changes. No acute hepatic or extrahepatic ductaldilatation. Spleen: Normal size. No focal lesion. Pancreas: Normal in appearance. Pancreatic duct is normal in diameter. Adrenal glands: Unremarkable Kidneys: No hydronephrosis, or solid ?lesion. Gastrointestinal tract: Visualized portions of the GI tract appear normalin caliber. Lymphatics: No lymphadenopathy. Vasculature: Unremarkable Peritoneum: No ascites. Bone: No aggressive osseous abnormality.[facility] HospitalCb with [id number] 22:50:20* Test Item Value Reference Range Interpretation Comme nts WBC (test code = 6690-2) 3.39 4.30-11.10 L RBC (test code = 789-8) 4.51 3.93-5.25 HGB (test code = 718-7) 13.8 g/dL 11.6-15.0 HCT (test code = 4544-3) 40.1 % 35.7-45.2 MCV (test code = 787-2) 88.9 fL 80.6-95.5 MCH (test code = 785-6) 30.6 pg 25.9-32.8 MCHC (test code = 786-4) 34.4 g/dL 31.6-35.1 RDW-SD (test code = 28075-3) 43.0 fL 39.0-49.9 RDW-CV (test code = 788-0) 13.2 % 12.0-15.5 PLT (test code = 777-3) 258 166-358 MPV (test code = 47061-0) 9.1 fL 9.5-12.9 L NRBC/100 WBC (test code = 2340021160) 0.0 0.0-10.0 NRBC x10^3 (test code = 9248919092) See_Comment [Automated messa ge] The system which generated this result transmitted reference range: 10*3/?L. The reference range was not used to interpret this result as normal/abnormal. GRAN MAT (NEUT) % (test code = 770-8) 49.6 % IMM GRAN % (test code = 8320941530) 0.00 % LYMPH % (test code = 736-9) 34.2 % MONO % (test code = 5905-5) 15.0 % EOS % (test code = 713-8) 0.9 % BASO % (test code = 706-2) 0.3 % GRAN MAT x10^3(ANC) (test code = 4426043781) 1.68 10*3/uL 1.88-7.09 L IMM GRAN x10^3 (test code = 1494951413) 0.00-0.06 LYMPH x10^3 (test code = 731-0) 1.16 10*3/uL 1.32-3.29 L MONO x10^3 (test code = 742-7) 0.51 10*3/uL 0.33-0.92 EOS x10^3 (test code = 711-2) 0.03 10*3/uL 0.03-0.39 BASO x10^3 (test code = 704-7) 0.01-0.07 Lab Interpretation (test code = 31901-2) Abnormal [facility] HospitalThyroid Stimulating [id number] 22:38:29 * Test Item Value Reference Range Interpretation Comme nts TSH (test code = 8825835870) 1.67 0.45-4.70 Lab Interpretation (test cod e = 71928-8) Normal [facility] [id number] 22:24:47* Test Item Value Reference Range Interpretation Comme nts FREE T4 (test code = 4958555233) 0.99 0.78-2.20 Lab Interpretation (test cod e = 60445-1) Normal [facility] [id number] 22:24:26* Test Item Value Reference Range Interpretation Comme nts FREE T3 (test code = 4385679051) 3.51 pg/mL 2.77-5.27 Lab Interpretation (test cod e = 79264-1) Normal [facility]. Metabolic Panel (95321)2023-05-19 22:12:45* Test Item Value Reference Range Interpretation Comme nts NA (test code = 4736695882) 139 mmol/L 135-145 K (test code = 4504742365) 3.6 mmol/L 3.5-5.0 CL (test code = 3844420082) 107 mmol/L 98-108 CO2 TOTAL (test code = 0045615506) 25 mmol/L 23-31 AGAP (test code = 5702470776) 7 2-16 BUN (test code = 7216671897) 13 mg/dL 7-23 GLUCOSE (test code = 3574827431) 87 mg/dL 70-110 CREATININE (test code = 3954620708) 0.62 mg/dL 0.50-1.04 TOTAL BILI (test code = 0873897795) 0.5 mg/dL 0.1-1.1 CALCIUM (test code = 3715120792) 9.0 mg/dL 8.6-10.6 T PROTEIN (test code = 0428492116) 7.0 g/dL 6.3-8.2 ALBUMIN (test code = 4244110054) 4.1 g/dL 3.5-5.0 ALK PHOS (test code = 2438873022) 89 U/L 34-122 ALTv (test code = 1742-6) 26 U/L 5-35 AST(SGOT) (test code = 9760161347) 26 U/L 13-40 eGFR (test code = 32007-8) 126.9 mL/min/1.73m2 CKD-EPI eGFR (20 21). Assuming creatinine has been stable day-to-day for at least three months, the eGFR indicates Category G1 (>= 90 mL/min/1.73 m2) [facility]. Metabolic Panel (72387)2023-05-19 22:12:45* Test Item Value Reference Range Interpretation Comme nts NA (test code = 4534671564) 139 mmol/L 135-145 K (test code = 9557532306) 3.6 mmol/L 3.5-5.0 CL (test code = 5194889684) 107 mmol/L 98-108 CO2 TOTAL (test code = 2837669365) 25 mmol/L 23-31 AGAP (test code = 2767980244) 7 2-16 BUN (test code = 7464245452) 13 mg/dL 7-23 GLUCOSE (test code = 7332258427) 87 mg/dL 70-110 CREATININE (test code = 7149414441) 0.62 mg/dL 0.50-1.04 TOTAL BILI (test code = 3595920289) 0.5 mg/dL 0.1-1.1 CALCIUM (test code = 8769537969) 9.0 mg/dL 8.6-10.6 T PROTEIN (test code = 7771726270) 7.0 g/dL 6.3-8.2 ALBUMIN (test code = 6143283036) 4.1 g/dL 3.5-5.0 ALK PHOS (test code = 4195317644) 89 U/L 34-122 ALTv (test code = 1742-6) 26 U/L 5-35 AST(SGOT) (test code = 4794047786) 26 U/L 13-40 eGFR (test code = 49095-6) 126.9 mL/min/1.73m2 CKD-EPI eGFR (20 21). Assuming creatinine has been stable day-to-day for at least three months, the eGFR indicates Category G1 (>= 90 mL/min/1.73 m2) [facility] Unconjugated/Bili [id number] 22:12:05* Test Item Value Reference Range Interpretation Comme nts BILI CONJ (test code = 4207734129) 0.0 mg/dL 0.0-0.3 BILI UNCON (test code = 5323090461) 0.3 mg/dL 0.1-1.1 Lab Interpretation (test cod e = 92111-8) Normal [facility]. METABOLIC PANEL (29600)2023-05-17 18:05:15* Test Item Value Reference Range Interpretation Comme nts NA (test code = 4805357409) 141 mmol/L 135-145 K (test code = 0143183179) 3.6 mmol/L 3.5-5.0 CL (test code = 4368882456) 107 mmol/L 98-108 CO2 TOTAL (test code = 0980413364) 24 mmol/L 23-31 AGAP (test code = 5876793785) 10 2-16 BUN (test code = 2742079781) 12 mg/dL 7-23 GLUCOSE (test code = 9176065994) 83 mg/dL 70-110 CREATININE (test code = 9865303876) 0.62 mg/dL 0.50-1.04 TOTAL BILI (test code = 6695358959) 0.8 mg/dL 0.1-1.1 CALCIUM (test code = 3171260504) 9.6 mg/dL 8.6-10.6 T PROTEIN (test code = 4017749234) 8.7 g/dL 6.3-8.2 H ALBUMIN (test code = 8888079922) 5.0 g/dL 3.5-5.0 ALK PHOS (test code = 9326930491) 114 U/L 34-122 ALTv (test code = 1742-6) 35 U/L 5-35 AST(SGOT) (test code = 0821956579) 39 U/L 13-40 eGFR (test code = 67127-6) 126.9 mL/min/1.73m2 CKD-EPI eGFR (2020). Assuming creatinine has been stable day-to-day for at least three months, the eGFR indicates Category G1 (>= 90 mL/min/1.73 m2) Lab Interpretation (test code = 04018-3) Abnormal [facility] HospitalLIPASE2024-02-10 18:04:54* Test Item Value Reference Range Interpretation Comme nts LIPASE (test code = 3972207400) 34 U/L 0-220 Lab Interpretation (test cod e = 78350-5) Normal [facility] HospitalCB WITH [id number] 17:48:54* Test Item Value Reference Range Interpretation Comme nts WBC (test code = 6690-2) 8.02 4.30-11.10 RBC (test code = 789-8) 5.22 3.93-5.25 HGB (test code = 718-7) 16.0 g/dL 11.6-15.0 H HCT (test code = 4544-3) 46.3 % 35.7-45.2 H MCV (test code = 787-2) 88.7 fL 80.6-95.5 MCH (test code = 785-6) 30.7 pg 25.9-32.8 MCHC (test code = 786-4) 34.6 g/dL 31.6-35.1 RDW-SD (test code = 12668-5) 42.4 fL 39.0-49.9 RDW-CV (test code = 788-0) 13.2 % 12.0-15.5 PLT (test code = 777-3) 306 166-358 MPV (test code = 60984-4) 8.8 fL 9.5-12.9 L NRBC/100 WBC (test code = 1876176660) 0.0 0.0-10.0 NRBC x10^3 (test code = 2597644155) See_Comment [Automated messa ge] The system which generated this result transmitted reference range: 10*3/?L. The reference range was not used to interpret this result as normal/abnormal. GRAN MAT (NEUT) % (test code = 770-8) 91.6 % IMM GRAN % (test code = 1684451212) 0.20 % LYMPH % (test code = 736-9) 4.2 % MONO % (test code = 5905-5) 3.9 % EOS % (test code = 713-8) 0.0 % BASO % (test code = 706-2) 0.1 % GRAN MAT x10^3(ANC) (test code = 5392204977) 7.34 10*3/uL 1.88-7.09 H IMM GRAN x10^3 (test code = 9440102196) 0.00-0.06 LYMPH x10^3 (test code = 731-0) 0.34 10*3/uL 1.32-3.29 L MONO x10^3 (test code = 742-7) 0.31 10*3/uL 0.33-0.92 L EOS x10^3 (test code = 711-2) 0.03-0.39 L BASO x10^3 (test code = 704-7) 0.01-0.07 Lab Interpretation (test code = 13563-1) Abnormal [facility] HospitalPOCT [id number] 17:03:00* Test Item Value Reference Range Interpretation Comme nts POCT PREG (test code = 1605) Negative On board controls acceptable with C Line (test code = 3574) Yes Lab Interpretation (test cod e = 25346-1) Normal [facility] HospitalTransthoracic echo (TTE)2023-04-23 18:13:27* Test Item Value Reference Range Interpretation Comme nts Height (test code = 2963298800) 64 in Weight (test code = 9065880184) 144 lbs Systolic BP (test code = 6627672713) 109 mmHg Diastolic BP (test code = 8706140643) 70 mmHg Heart Rate (test code = 9995637782) 78 bpm BSA (test code = 9319677790) 1.70 m2 LVIDD (test code = 9001240146) 4.50 cm Left Ventricular End Diastolic Volume by Teichholz Method (test code = 9541980) 92.6 mL IVS (test code = 6830235256) 0.94 cm Interventricular Septum Diastolic Thickness by 2D (test code = 9048522) 0.94 cm LVPWD (test code = 9404265274) 1.01 cm PW (test code = 4369504274) 1.01 cm 0.6-1.1 EF(Teich) (test code = 7564428886) 56.40 % LVIDS (test code = 5428062934) 3.20 cm Left Ventricular End Systolic Volume by Teichholz Method (test code = 2463541) 40.4 mL FS (test code = 4138750624) 29 % EF - 2D (test code = 41482802) 56.40 % LVOT diameter (test code = 4011303688) 1.84 cm LVOT area (test code = 9486172607) 2.70 cm2 TR Peak Raya (test code = 5519602812) 203.7 cm/s Triscuspid Valve Regurgitation Peak Gradient (test code = 3249803745) 16.6 mmHg ACS (test code = 2563600778) 1.93 cm Ao root diam (test code = 9604927320) 2.70 cm Aortic root (test code = 9125489699) 2.7 cm Ao root annulus (test code = 0177073381) 2.7 cm LA size (test code = 2314451548) 3.1 cm E wave decelartion time (test code = 1681525315) 0.22 s MV Peak E Raya (test code = 7969145238) 66.0 cm/s MV Peak A Raya (test code = 9155928749) 46.1 cm/s E/A ratio (test code = 8155635615) 1.43 ratio MV Prop V (test code = 8536366169) 45.50 cm/s Tapse (test code = 3074137343) 2.17 cm LVOT stroke volume (test code = 4101423331) 68.60 cm3 LVOT peak raya (test code = 8722097187) 119.0 cm/s LVOT mn grad (test code = 0656131025) 2.5 mmHg AV LVOT peak gradient (test code = 2877885956) 5.7 mmHg LVOT peak VTI (test code = 1580079941) 25.8 cm LV V1 mean (test code = 7812140856) 72.50 cm/s Aortic valve mean velocity (test code = 0438424484) 85.7 cm/s Ao peak raya (test code = 2909559901) 150.1 cm/s Ao VTI (test code = 5294120141) 31.1 cm AV area by cont VTI (test code = 8549802088) 2.2 cm2 AV area peak raya (test code = 3641510511) 2.1 cm2 Ao max PG (test code = 3696990646) 9.00 mm[Hg] AV peak gradient (test code = 8084603270) 9.0 mmHg AV valve area (test code = 8142161862) 2.21 cm2 AV mean gradient (test code = 2271058766) 3.6 mmHg Radiology Study observation (narrative) (test code = 80220-9) TAMANNA (test code = TAMANNA) ?Left?Ventricle: Left ventricle size is normal. Normal wall thickness. Normal wall motion. Normal systolic function with a visually estimated EF of 50 - 55%. Normal diastolic function. ?Right?Ventricle: Right ventricle size is normal. Normal systolic function. ?Left?Atrium: Left atrium size is normal. Atrial septal aneurysm present. ?Tricuspid?Valve: Insufficient tricuspid regurgitation jet to estimate RVSP, but probably normal. ?RA pressure is 0-5 mmHg. Left VentricleLeft ventricle size is normal. Normal wall thickness. Normal wall motion. Normal systolic function with a visually estimated EF of 50 - 55%. Normal diastolic function.Right VentricleRight ventricle size is normal. Normal systolic function.Left AtriumLeft atrium size is normal. Atrial septal aneurysm present.Right AtriumRight atrium size is normal.IVC/SVCIVC diameter is less than or equal to 21 mm and decreases greater than 50% during inspiration; therefore the estimated right atrial pressure is normal (~0-5 mmHg).Mitral ValveMitral valve structure is normal. Trace transvalvular regurgitation.Tricusp id ValveTricuspid valve structure is normal. Trace transvalvular regurgitation. Insufficient tricuspid regurgitation jet to estimate RVSP, but probably normal. RA pressure is 0-5 mmHg.Aortic ValveTricuspid.Pulmon ic ValveValve structure is normal. Trace transvalvular regurgitation.Ascendi ng AortaNormal sized aorta.PericardiumThe pericardium is normal. No pericardial effusion.Study DetailsStudy quality was adequate. A complete echocardiogram was performed using 2D, color flow Doppler and spectral Doppler. The apical, parasternal and subcostal views were obtained. [facility] HospitalRHO (D) IMMUNE [id number] 16:39:14* Test Item Value Reference Range Interpretation Comme nts RHIG CANDIDATE? (test code = 5188) No- see comment Patient is not a candidate for RhIg- Patient is Rh Positive.Performed at [facility] Laboratory Services - [facility] Blood [address] [address]Fl[address] Free: [phone] No. [id number] [facility] HospitalGALV ONLY - SYPHILIS [id number] 16:20:18* Test Item Value Reference Range Interpretation Comme [facility] Syphilis IgG/IgM (test code = 83948-4) Non-reactive Non-reactive TAMANNA (test code = TAMANNA) Non-reactive - No serologic evidence of T. pallidum infection. Cannot exclude incubating or early syphilis. Submit a second specimen in 2-4 weeks if syphilis is clinically suspected. Equivocal - Further testing to follow. Reactive - Further testing to follow. Lab Interpretation (test code = 79929-1) Normal [facility] HospitalArterial Cord [id number] 12:56:45* Test Item Value Reference Range Interpretation Comme nts BASE EXCESS, CORD (test code = 6750392917) -5.0 mEq/L AC PH, CORD (BEAKER) (test code = 5779276164) 7.32 7.18-7.38 PC02, CORD (test code = 6541617579) 41 See_Comment [Automated messa ge] The system which generated this result transmitted reference range: 32 - 66 mmHg. The reference range was not used to interpret this result as normal/abnormal. PO2, CORD (test code = 5179362141) 24 See_Comment [Automated messa ge] The system which generated this result transmitted reference range: 10 - 30 mmHg. The reference range was not used to interpret this result as normal/abnormal. BICARBONATE, CORD (test code = 1536302308) 21 See_Comment [Automated messa ge] The system which generated this result transmitted reference range: 17 - 27 mEq/L. The reference range was not used to interpret this result as normal/abnormal. [facility] HospitalVenous Cord [id number] 12:56:15* Test Item Value Reference Range Interpretation Comme nts VENOUS BASE EXCESS, CORD (test code = 8925684099) -0.6 mEq/L VENOUS PH, CORD (test code = 8236531313) 7.37 7.25-7.45 VENOUS PC02, CORD (test code = 2041318427) 44 See_Comment [Automated messa ge] The system which generated this result transmitted reference range: 27 - 49 mmHg. The reference range was not used to interpret this result as normal/abnormal. VENOUS PO2, CORD (test code = 0588970740) 30 See_Comment [Automated me ssage] The system which generated this result transmitted reference range: 17 - 41 mmHg. The reference range was not used to interpret this result as normal/abnormal. VENOUS BICARBONATE, CORD (test code = 3232244655) 25 See_Comment QUES [Automated message] The system which generated this result transmitted reference range: 12 - 29 mEq/L. The reference range was not used to interpret this result as normal/abnormal. [facility] HospitalHIV 1/2 AG-AB WITH [id number] 04:49:06* Test Item Value Reference Range Interpretation Comme nts HIV Semi-quantitative (test code = 13886-5) 0.12 Negative TAMANNA (test code = TAMANNA) Non-reactive for HIV-1 antigen and HIV-1/HIV-2 antibodies. ?No laboratory evidence of HIV infection. ?Repeat in 2-4 weeks if acute HIV infection is suspected. [facility] HospitalHepatitis B Surface [id number] 02:59:58 * Test Item Value Reference Range Interpretation Comme nts HBsAg Semi-Quantitative (puma t code = 5195-3) 0.10 Negative [facility] HospitalCBC with Wjtuubnmwuhr2477-67-13 01:12:02* Test Item Value Reference Range Interpretation Comme nts WBC (test code = 6690-2) 13.85 See_Comment H [Automated message] The system which generated this result transmitted reference range: 4.30 - 11.10 10*3/?L. The reference range was not used to interpret this result as normal/abnormal. RBC (test code = 789-8) 3.98 See_Comment [Automated message] The system which generated this result transmitted reference range: 3.93 - 5.25 10*6/?L. The reference range was not used to interpret this result as normal/abnormal. HGB (test code = 718-7) 9.7 g/dL 11.6-15.0 L HCT (test code = 4544-3) 31.3 % 35.7-45.2 L MCV (test code = 787-2) 78.6 fL 80.6-95.5 L MCH (test code = 785-6) 24.4 pg 25.9-32.8 L MCHC (test code = 786-4) 31.0 g/dL 31.6-35.1 L RDW-SD (test code = 46945-6) 45.7 fL 39.0-49.9 RDW-CV (test code = 788-0) 16.0 % 12.0-15.5 H PLT (test code = 777-3) 264 See_Comment [Automated message] The system which generated this result transmitted reference range: 166 - 358 10*3/?L. The reference range was not used to interpret this result as normal/abnormal. MPV (test code = 55269-3) 10.3 fL 9.5-12.9 NRBC/100 WBC (test code = 1600351523) 0.0 See_Comment [Automated message] The system which generated this result transmitted reference range: 0.0 - 10.0 /100 WBCs. The reference range was not used to interpret this result as normal/abnormal. NRBC x10^3 (test code = 5762432599) See_Comment [Automated message] The system which generated this result transmitted reference range: 10*3/?L. The reference range was not used to interpret this result as normal/abnormal. GRAN MAT (NEUT) % (test code = 770-8) 88.0 % IMM GRAN % (test code = 9087856158) 0.60 % LYMPH % (test code = 736-9) 6.4 % MONO % (test code = 5905-5) 4.6 % EOS % (test code = 713-8) 0.2 % BASO % (test code = 706-2) 0.2 % GRAN MAT x10^3(ANC) (test code = 3965997731) 12.17 10*3/uL 1.88-7.09 H IMM GRAN x10^3 (test code = 7900615319) 0.09 10*3/uL 0.00-0.06 H LYMPH x10^3 (test code = 731-0) 0.89 10*3/uL 1.32-3.29 L MONO x10^3 (test code = 742-7) 0.64 10*3/uL 0.33-0.92 EOS x10^3 (test code = 711-2) 0.03 10*3/uL 0.03-0.39 BASO x10^3 (test code = 704-7) 0.03 10*3/uL 0.01-0.07 Lab Interpretation (test code = 79932-5) Abnormal [facility] HospitalType and Screen - ONCE [id number] 01:02:00 * Test Item Value Reference Range Interpretation Comme nts ABO & RH (test code = 20) A POSITIVE IAT (test code = 1185) Negative [facility] HospitalPOCT URINALYSIS W/O SPECIFIC [id number] 15:44:00* Test Item Value Reference Range Interpretation Comme nts POCT PH U (test code = 3254) 8 mg/dl 5-8 POCT U LEUK EST (test code = 3263) negative Negative - Negative POCT U NIT (test code = 3262) negative Negative - Negati ve POCT U PROT (test code = 3259) trace Negative - Negat lori POCT U GLU (test code = 3256) negative Negative - Negati ve POCT U KETONE (test code = 3258) negative Negative - Neg ative POCT U BLD (test code = 3257) negative Negative - Negati ve Lab Interpretation (test cod e = 22923-6) Normal [facility] URINALYSIS W/O SPECIFIC [id number] 19:00:00* Test Item Value Reference Range Interpretation Comme nts POCT PH U (test code = 3254) 6 mg/dl 5-8 POCT U LEUK EST (test code = 3263) neg Negative - Negative POCT U NIT (test code = 3262) neg Negative - Negati ve POCT U PROT (test code = 3259) neg Negative - Negat lori POCT U GLU (test code = 3256) neg Negative - Negati ve POCT U KETONE (test code = 3258) neg Negative - Neg ative POCT U BLD (test code = 3257) neg Negative - Negati ve [facility] URINALYSIS W/O SPECIFIC [id number] 13:58:00* Test Item Value Reference Range Interpretation Comme nts POCT PH U (test code = 3254) 7 mg/dl 5-8 POCT U LEUK EST (test code = 3263) Negative Negative - Negative POCT U NIT (test code = 3262) Negative Negative - Negati ve POCT U PROT (test code = 3259) Negative Negative - Negat lori POCT U GLU (test code = 3256) Negative Negative - Negati ve POCT U KETONE (test code = 3258) Negative Negative - Neg ative POCT U BLD (test code = 3257) Negative Negative - Negati ve [facility] URINALYSIS W/O SPECIFIC [id number] 13:58:00* Test Item Value Reference Range Interpretation Comme nts POCT PH U (test code = 3254) 7 mg/dl 5-8 POCT U LEUK EST (test code = 3263) Negative Negative - Negative POCT U NIT (test code = 3262) Negative Negative - Negati ve POCT U PROT (test code = 3259) Negative Negative - Negat lori POCT U GLU (test code = 3256) Negative Negative - Negati ve POCT U KETONE (test code = 3258) Negative Negative - Neg ative POCT U BLD (test code = 3257) Negative Negative - Negati ve [facility] URINALYSIS W/O SPECIFIC [id number] 13:58:00* Test Item Value Reference Range Interpretation Comme nts POCT PH U (test code = 3254) 7 mg/dl 5-8 POCT U LEUK EST (test code = 3263) Negative Negative - Negative POCT U NIT (test code = 3262) Negative Negative - Negati ve POCT U PROT (test code = 3259) Negative Negative - Negat lori POCT U GLU (test code = 3256) Negative Negative - Negati ve POCT U KETONE (test code = 3258) Negative Negative - Neg ative POCT U BLD (test code = 3257) Negative Negative - Negati ve [facility] URINALYSIS W/O SPECIFIC [id number] 13:36:00* Test Item Value Reference Range Interpretation Comme nts POCT PH U (test code = 3254) 8 mg/dl 5-8 POCT U LEUK EST (test code = 3263) Negative Negative - Negative POCT U NIT (test code = 3262) Negative Negative - Negati ve POCT U PROT (test code = 3259) Negative Negative - Negat lori POCT U GLU (test code = 3256) Negative Negative - Negati ve POCT U KETONE (test code = 3258) Negative Negative - Neg ative POCT U BLD (test code = 3257) Negative Negative - Negati ve Lab Interpretation (test cod e = 51583-1) Abnormal [facility] URINALYSIS W SPECIFIC [id number] 20:57:00* Test Item Value Reference Range Interpretation Comme nts POCT U SP GRAV (test code = 3255) . 1.005-1.025 POCT PH U (test code = 3254) 6 mg/dl 5-8 POCT U LEUK EST (test code = 3263) Trace Negative - Negative POCT U NIT (test code = 3262) Neg Negative - Negati ve POCT U PROT (test code = 3259) Trace Negative - Negat lori POCT U GLU (test code = 3256) Neg Negative - Negati ve POCT U KETONE (test code = 3258) None Negative - Neg ative POCT U UROBILI (test code = 3260) . 0.2-1 POCT U BILI (test code = 3261) . Negative - Negat lori POCT U BLD (test code = 3257) Trace Negative - Negati ve POCT U COLOR (test code = 3266) . POCT U APPEAR (test code = 3267) [facility] URINALYSIS W/O SPECIFIC [id number] 14:33:00* Test Item Value Reference Range Interpretation Comme nts POCT PH U (test code = 3254) 7 mg/dl 5-8 POCT U LEUK EST (test code = 3263) neg Negative - Negative POCT U NIT (test code = 3262) neg Negative - Negati ve POCT U PROT (test code = 3259) trace Negative - Negat lori POCT U GLU (test code = 3256) neg Negative - Negati ve POCT U KETONE (test code = 3258) neg Negative - Neg ative POCT U BLD (test code = 3257) neg Negative - Negati ve [facility] URINALYSIS W/O SPECIFIC [id number] 14:33:00* Test Item Value Reference Range Interpretation Comme nts POCT PH U (test code = 3254) 7 mg/dl 5-8 POCT U LEUK EST (test code = 3263) neg Negative - Negative POCT U NIT (test code = 3262) neg Negative - Negati ve POCT U PROT (test code = 3259) trace Negative - Negat lori POCT U GLU (test code = 3256) neg Negative - Negati ve POCT U KETONE (test code = 3258) neg Negative - Neg ative POCT U BLD (test code = 3257) neg Negative - Negati ve [facility] URINALYSIS W/O SPECIFIC [id number] 14:53:00* Test Item Value Reference Range Interpretation Comme nts POCT PH U (test code = 3254) 8 mg/dl 5-8 POCT U LEUK EST (test code = 3263) - Negative - Negative POCT U NIT (test code = 3262) - Negative - Negati ve POCT U PROT (test code = 3259) trace Negative - Negat lori POCT U GLU (test code = 3256) - Negative - Negati ve POCT U KETONE (test code = 3258) - Negative - Neg ative POCT U BLD (test code = 3257) - Negative - Negati ve Lab Interpretation (test cod e = 07408-8) Abnormal [facility] URINALYSIS W/O SPECIFIC [id number] 15:31:00* Test Item Value Reference Range Interpretation Comme nts POCT PH U (test code = 3254) 6 mg/dl 5-8 POCT U LEUK EST (test code = 3263) neg Negative - Negative POCT U NIT (test code = 3262) neg Negative - Negati ve POCT U PROT (test code = 3259) neg Negative - Negat lori POCT U GLU (test code = 3256) neg Negative - Negati ve POCT U KETONE (test code = 3258) neg Negative - Neg ative POCT U BLD (test code = 3257) neg Negative - Negati ve Lab Interpretation (test cod e = 02938-2) Normal [facility] URINALYSIS W/O SPECIFIC [id number] 14:22:00* Test Item Value Reference Range Interpretation Comme nts POCT PH U (test code = 3254) 8 mg/dl 5-8 POCT U LEUK EST (test code = 3263) Negative Negative - Negative POCT U NIT (test code = 3262) Negative Negative - Negati ve POCT U PROT (test code = 3259) Negative Negative - Negat lori POCT U GLU (test code = 3256) Negative Negative - Negati ve POCT U KETONE (test code = 3258) Negative Negative - Neg ative POCT U BLD (test code = 3257) Negative Negative - Negati ve Lab Interpretation (test cod e = 01555-2) Normal [facility] URINALYSIS W/O SPECIFIC [id number] 14:56:00* Test Item Value Reference Range Interpretation Comme nts POCT PH U (test code = 3254) 8 mg/dl 5-8 POCT U LEUK EST (test code = 3263) 1+ Negative - Negative POCT U NIT (test code = 3262) neg Negative - Negati ve POCT U PROT (test code = 3259) trace Negative - Negat lori POCT U GLU (test code = 3256) neg Negative - Negati ve POCT U KETONE (test code = 3258) neg Negative - Neg ative POCT U BLD (test code = 3257) neg Negative - Negati ve Lab Interpretation (test cod e = 77569-8) Abnormal [facility] [id number] 14:55:00* Test Item Value Reference Range Interpretation Comme nts POCT PREG (test code = 1605) Positive On board controls acceptable with C Line (test code = 3574) Yes POCT PREG LOT # (test code = 3575) POCT PREG TEST DATE ( test code = 3576) [facility] 20:44:10 * Test Item Value Reference Range Interpretation Comme nts IGG SUBCLASS4 (test code = 2469-5) 77 mg/dL 1-123 REFERENCE INTERV AL: Immunoglobulin G Subclass 4 Access complete set of age- and/or gender-specific reference intervals for this test in the [facility] Test Directory (ticketscript).Performed By: [facility] [id number] [place] [id number] Director: Momo Islas MD, PhD [facility] 20:44:10 * Test Item Value Reference Range Interpretation Comme nts IGG SUBCLASS4 (test code = 2469-5) 77 mg/dL 1-123 REFERENCE INTERV AL: Immunoglobulin G Subclass 4 Access complete set of age- and/or gender-specific reference intervals for this test in the [facility] Test Directory (ticketscript).Performed By: [address] [id number] Director: Momo Islas MD, PhD [facility] URINALYSIS W/O SPECIFIC [id number] 14:29:00* Test Item Value Reference Range Interpretation Comme nts POCT PH U (test code = 3254) n/a 5-8 POCT U LEUK EST (test code = 3263) n/a Negative - Negative POCT U NIT (test code = 3262) n/a Negative - Negati ve POCT U PROT (test code = 3259) negative Negative - Negat lori POCT U GLU (test code = 3256) negative Negative - Negati ve POCT U KETONE (test code = 3258) n/a Negative - Neg ative POCT U BLD (test code = 3257) n/a Negative - Negati ve [facility] [id number] 21:08:00* Test Item Value Reference Range Interpretation Comme nts POCT PREG (test code = 1605) Positive On board controls acceptable with C Line (test code = 3574) Yes POCT PREG LOT # (test code = 3575) POCT PREG TEST DATE ( test code = 3576) [facility] [id number] 21:08:00* Test Item Value Reference Range Interpretation Comme nts POCT PREG (test code = 1605) Positive On board controls acceptable with C Line (test code = 3574) Yes POCT PREG LOT # (test code = 3575) POCT PREG TEST DATE ( test code = 3576) [facility] [id number] 13:25:00 * Test Item Value Reference Range Interpretation Comme nts COVID 19 Asymptomatic IH AG (test code = COVNONPUIAG) NEGATIVE Negative Per metal loader , negative results should be treated aspresumptive and, if inconsistent with clinical signs andsymptoms or necessary for patient management, should betested with an alternative molecular assay. Negative resultsdo not preclude SARS-CoV-2 infection and should not be usedas the sole basis for patient management decisions. Negative results should be considered in the context of apatient's recent exposures, history, presence of clinicalsigns and symptoms consistent with COVID-19. BASIC METABOLIC [id number] 10:10:00* Test Item Value Reference Range Interpretation Comme nts SODIUM (test code = NA) 139 mmol/L 134-147 N POTASSIUM (test code = K) 3.4 mmol/L 3.4-5.0 N CHLORIDE (test code = CL) 110 mmol/L 100-108 H CARBON DIOXIDE (test code = CO2) 24 mmol/L 21-32 N ANION GAP (test code = GAP) 5.0 GAP calc 4.0-15.0 N GLUCOSE (test code = GLU) 124 MG/DL 70-110 H BLOOD UREA NITROGEN (test code = BUN) 11 MG/DL 7-18 N GLOMERULAR FILTRATION RATE (test code = GFR) >=60 max estimate estGFR >60 CREATININE (test code = CREAT) 0.7 MG/DL 0.6-1.0 N CALCIUM (test code = CA) 8.7 MG/DL 8.5-10.1 N HCG [id number] 10:10:00* Test Item Value Reference Range Interpretation Comme nts HCG SERUM (test code = HCG) < 1 mi-IU/ML 0-6 N 0 - 6 NOT PREGNA NT > 6 SUGGESTIVE OF EARLY RISES TWO FOLD EVERY 2 DAYS; SUGGEST RECONFIRMING AFTER 2 DAYS. 150,000-200,[address] TRIMESTER 10,000 - 50,000 2ND & 3RD TRIMESTER - CT HEAD/BRAIN W/O [id number] 10:06:00 [facility] 2000 Sex: F Name: DANY JAMES [facility] : 2000 Age/S: 21 / F [address] [address] [place] Unit #: [id number] Loc: [place] [address] Phys: Iesha Cast DO Acct: [id number] Dis Date: Status: REG ER PHONE #: [phone] Exam Date: 08/13/2021 1000 FAX #: Reason: headache EXAMS: CPT: [id number] CT HEAD/BRAIN W/O CONT 42641 EXAM: - CT HEAD/BRAIN W/O CONT LOCATION: C3 HISTORY: 21 years-year old Female with headache TECHNIQUE: Computerized tomography images from the skull base to the vertex were obtained. Coronal and sagittal reformatted images are provided. This exam was performed according to our departmental dose- optimization program, which includes automated exposure control, adjustment of the mA and/or kV according to patient size and/or use of iterative [...] M.D. PAGE 1 Signed Report (CONTINUED) Name: DANY JAMES : 2000 Age/S: 21 / F [address] [facility] [place] Unit #: [id number] Loc: [place] [address] Phys: Iesha Cast DO Acct: [id number] Dis Date: Status: REG ER PHONE #: [phone] Exam Date: 08/13/2021 1000 FAX #: Reason: headache EXAMS: CPT: [id number] CT HEAD/BRAIN W/O CONT 64517 (Continued) CC: Iesha Cast DO Technologist:RT Natan(R) CTDI: DLP: Trnscb Date/Time: 08/13/2021 (1006) KeyHV2 Orig Print D/T: S: 08/13/2021 (1009) PAGE 2 Signed ReportARH [facility] W/AUTO [id number] 09:49:00* Test Item Value Reference Range Interpretation Comme nts WHITE BLOOD CELL (test code = WBC) 7.5 K/mm3 3.5-11.0 N RED BLOOD CELL (test code = RBC) 4.01 M/mm3 4.70-6.10 L HEMOGLOBIN (test code = HGB) 11.9 G/DL 10.4-14.9 N HEMATOCRIT (test code = HCT) 35.3 % 31.5-44.1 N MEAN CELL VOLUME (test code = MCV) 88.0 Fl 84.5-98.6 N MEAN CELL HGB (test code = MCH) 29.7 pg 27.0-34.2 N MEAN CELL HGB CONCETRATION (test code = MCHC) 33.7 G/DL 31.5-34.0 N RED CELL DISTRIBUTION WIDTH (test code = RDW) 12.8 SD 11.5-14.5 N PLATELET COUNT (test code = PLT) 273 K/mm3 150-450 N MEAN PLATELET VOLUME (test c ode = MPV) 9.10 fL 7.0-10.5 N NEUTROPHIL % (test code = NT%) 72.5 % 40-76 N IMMATURE GRANULOCYTE % (test code = IG%) 0.3 % 0.0-5.0 N LYMPHOCYTE % (test code = LY%) 19.6 % 20.5-51.1 L MONOCYTE % (test code = MO%) 6.8 % 1.7-9.3 N EOSINOPHIL % (test code = EO%) 0.7 % 0.0-6.0 N BASOPHIL % (test code = BA%) 0.1 % 0.0-2.0 N NUCLEATED RBC % (test code = NRBC%) 0.0 /100WBC% 0.0-1.0 N NEUTROPHIL # (test code = NT#) 5.4 K/mm3 1.8-7.6 N IMMATURE GRANULOCYTE # (test code = IG#) 0.02 x10 3/uL 0.00-0.03 N LYMPHOCYTE # (test code = LY#) 1.5 K/mm3 0.6-3.2 N MONOCYTE # (test code = MO#) 0.5 K/mm3 0.3-1.1 N EOSINOPHIL # (test code = EO#) 0.1 K/mm3 0.0-0.4 N BASOPHIL # (test code = BA#) 0.0 K/mm3 0.0-0.1 N NUCLEATED RBC # (test code = NRBC#) 0.0 K/mm3 0.0-0.1 N MANUAL DIFF REQUIRED (test c ode = MDIFF) NO DIFF/SCN CRITERIA Consult Notes Date/Time Note Provider Source 2023-07-11 15:12:54 [facility] Consultation DATE: 07/11/2023 SERVICE: Internal Medicine CHIEF COMPLAINT: s/p Surgery Right meningioma status postcraniotomy HISTORY OF PRESENT ILLNESS Dany James is a 23 year old female who presents to [facility] with 3 year old female with past medical history significant for depression/anxiety, panic attacks and 3 cm right petroclival meningioma with symptoms of positional diplopia and facial numbness as well as fatigue/forgetfulness who presents to the ICU after undergoing right retrosigmoid craniotomy for resection of meningioma. ICU for postoperative care after right retrosigmoid craniotomy for right petroclival meningioma resection. MRI brain done showing a small amount of residual tumor along the dural margin abutting the basilar artery, extending over to the posterior lip of the sella turcica and feeling the right Meckel's cave. Postsurgical edema in the right cerebellar hemisphere and along the lateral aspect of the right brachium pontis and the right anterolateral ebony. Patient has no specific complaints and stable for Transferred to floor ALLERGIES Dany has No Known Allergies. MEDICATIONS Current Facility-Administered Medications: dexAMETHasone (DECADRON) tablet 2 mg, 2 mg, Oral, Q12H, Alvarado Delgado MD, 2 mg at 07/11/23 0855 gabapentin (NEURONTIN) capsule 300 mg, 300 mg, Oral, TID, Zirpoli, Jessica, AGACNP NaCl 0.9% (NS) IV infusion 1,000 mL, 1,000 mL, IV Infusion, CONTINUOUS, Ninfa Lawton, CORINP oxyCODONE immediate release tablet 10 mg, 10 mg, Oral, Q4HPRN, Zirpoli, Jessica, AGACNP sennosides-docusate sodium (SENOKOT-S) 8.6-50 mg per tablet 1 tablet, 1 tablet, Oral, BID, Perry Gale MD [START ON 07/12/2023] tamsulosin (FLOMAX) capsule 0.4 mg, 0.4 mg, Oral, DAILY, Sheri Tejeda MD acetaminophen (TYLENOL) tablet 1,000 mg, 1,000 mg, Oral, Q8HPRN, Joshua, Silvana, ACNP niiugeedel-niyofxmzkpqtr-mpcs (ESGIC) 50-325-40 mg tablet 1 tablet, 1 tablet, Oral, Q6H, Jeffry Butt, COLD FOOD PACKER, 1 tablet at 07/11/23 1200 FENTanyl PF (SUBLIMAZE (PF)) injection 50 mcg, 50 mcg, Slow IV Push, Q3HPRN, Jeffry Butt, COLD FOOD PACKER, 50 mcg at 07/11/23 0844 heparin (porcine) injection 5,000 Units, 5,000 Units, Subcutaneous, Q8H, Jessica Henning AGACNP, 5,000 Units at 07/11/23 0512 methocarbamoL (ROBAXIN) tablet 750 mg, 750 mg, Oral, Q6H, Jakob Del Toro MD, 750 mg at 07/11/23 1200 celecoxib (CELEBREX) capsule 100 mg, 100 mg, Oral, BID MEALS, Caroline Valladares MD, 100 mg at 07/11/23 0855 ipratropium (ATROVENT) 0.02 % nebulizer solution 0.5 mg, 0.5 mg, Inhalation, Q6HPRN, Jakob Del Toro MD pantoprazole (PROTONIX) EC tablet 40 mg, 40 mg, Oral, DAILY, Jakob Del Toro MD, 40 mg at 07/11/23 0855 polyethylene glycol 3350 powder 17 g, 17 g, Oral, DAILY, Caroline Valladares MD, 17 g at 07/11/23 0856 hydralAZINE (APRESOLINE) injection 10 mg, 10 mg, Slow IV Push, Q2HPRN, Lopez Ballesteros MD, 10 mg at 07/08/23 1352 labetaloL (NORMODYNE) injection 20 mg, 20 mg, Slow IV Push, Q2HPRN, Lesli, Lopez, MD lidocaine-epinephrine (XYLOCAINE WITH EPINEPHRINE) 0.5 %-1:200,000 injection, , , PRN, Roque Watts MD, 10 mL at 07/07/23 0914 ondansetron (ZOFRAN (PF)) injection 4 mg, 4 mg, Slow IV Push, Q6HPRN, Sheri Tejeda MD, 4 mg at 07/11/23 0844 proMETHazine (PHENERGAN) 12.5 mg in NS 50 mL IV piggyback (CNR), 12.5 mg, IV Piggyback, Q4HPRN, Lopez Ballesteros MD, Stopped at 07/11/23 1223 thrombin topical solution, , , PRN, Roque Watts MD, 5,000 Units at 07/07/23 1010 Current Discharge Medication List STOP taking these medications Ibuprofen 200 mg capsule Comments: Reason for Stopping: proMETHazine 12.5 mg tablet Comments: Reason for Stopping: doswtrocro-uoikmdqlojikm-pjku 50-325-40 mg tablet Comments: Reason for Stopping: methylPREDNISolone 4 mg tablets Comments: Reason for Stopping: ondansetron 4 mg disintegrating tablet Comments: Reason for Stopping: ferrous sulfate 325 mg (65 mg iron) tablet Comments: Reason for Stopping: vitamin w/FA tablet Comments: Reason for Stopping: 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 Panic attacks Right upper quadrant abdominal pain 07/19/2020 Status post laparoscopic cholecystectomy 07/27/2020 STD (sexually transmitted disease) trich x 2 2019 PAST SURGICAL HISTORY Past Surgical History: Procedure Laterality Date CHOLECYSTECTOMY 07/2020 CRANIOTOMY RESECTION TUMOR WITH NAVIGATION (SHX) Right 07/07/2023 Surgeon: Roque Watts MD; Location: [facility] OR LOCATION INITIATE POST OP CHOLECYSTECTOMY CRITICAL PATHWAY IF NOT ALREADY DONE SO PAST SOCIAL HISTORY Social History Socioeconomic History Marital status: Single Tobacco Use Smoking status: Never Passive exposure: Never Smokeless tobacco: Never Vaping Use Vaping Use: Never used Substance and Sexual Activity Alcohol use: Not Currently Drug use: Never Sexual activity: Not Currently Partners: Male Social History Narrative Denies domestic violence or abuse Zoroastrian preference: None No exposure to cats Pt denies current or past physical, sexual, or emotional abuse, human trafficking. Michelet Wisdom RN 01/01/2023 7:13 AM Social Determinants of Health Financial Resource Strain: Low Risk (07/08/2023) Overall Financial Resource Strain (CARDIA) Difficulty of Paying Living Expenses: Not very hard Food Insecurity: No Food Insecurity (07/08/2023) Hunger Vital Sign Worried About Running Out of Food in the Last Year: Never true Ran Out of Food in the Last Year: Never true Transportation Needs: No Transportation Needs (07/08/2023) PRAPARE - Transportation Lack of Transportation (Medical): No Lack of Transportation (Non-Medical): No Physical Activity: Inactive (07/08/2023) Exercise Vital Sign Days of Exercise per Week: 0 days Minutes of Exercise per Session: 0 min Stress: No Stress Concern Present (03/19/2023) [place] [employer] - Occupational Stress Questionnaire Feeling of Stress : Not at all Social Connections: Moderately Isolated (07/08/2023) Social Connection and Isolation Panel [NHANES] Frequency of Communication with Friends and Family: More than three times a week Frequency of Social Gatherings with Friends and Family: More than three times a week Attends Zoroastrian Services: 1 to 4 times per year Active Member of Clubs or Organizations: No Attends Club or Organization Meetings: Never Marital Status: Never Intimate Partner Violence: Not At Risk (03/19/2023) Humiliation, Afraid, Rape, and Kick questionnaire Fear of Current or Ex-Partner: No Emotionally Abused: No Physically Abused: No Sexually Abused: No Housing Stability: Low Risk (07/08/2023) Housing Stability Vital Sign Unable to Pay for Housing in the Last Year: No Number of Places Lived in the Last Year: 1 Unstable Housing in the Last Year: No PAST FAMILY HISTORY Family History Problem Relation Age of Onset Arthritis Mother No Significant Medical Problems Father Cancer Sister Thyroid Diabetes Maternal Aunt Heart Paternal Uncle Cancer Paternal Grandmother Asthma NoFHx defects NoFHx Genetic NoFHx Breast Cancer NoFHx Colon Cancer NoFHx Ovarian Cancer NoFHx Uterine Cancer NoFHx Depression NoFHx Psychiatry NoFHx Hypertension NoFHx High cholesterol NoFHx Mental retardation NoFHx Neurological NoFHx Osteoporosis NoFHx REVIEW OF SYSTEMS PHYSICAL EXAMINATION Vitals: 07/11/23 1200 07/11/23 1215 07/11/23 1230 07/11/23 1245 BP: 109/58 Pulse: 66 63 67 70 Resp: 8 15 (!) 7 Temp: 36.5 ?C (97.7 ?F) TempSrc: Axillary SpO2: 97% 98% 98% 98% Weight: Height: LABS AND IMAGING Recent Results (from the past 24 hour(s)) Cbc without Diff Collection Time: 07/11/23 3:25 AM Result Value Ref Range WBC 8.65 4.30 - 11.10 10*3/?L RBC 3.14 (L) 3.93 - 5.25 10*6/?L HGB 9.6 (L) 11.6 - 15.0 g/dL HCT 28.6 (L) 35.7 - 45.2 % MCH 30.6 25.9 - 32.8 pg MCV 91.1 80.6 - 95.5 fL MCHC 33.6 31.6 - 35.1 g/dL PLT 314 166 - 358 10*3/?L MPV 8.6 (L) 9.5 - 12.9 fL RDW-CV 13.3 12.0 - 15.5 % RDW-SD 43.6 39.0 - 49.9 fL NRBC x10 3 <0.01 10*3/?L NRBC/100 WBC 0.0 0.0 - 10.0 /100 WBCs IPF % Basic Metabolic Panel (NA, K, CL, CO2, GLUCOSE, BUN, CREATININE, CA) Collection Time: 07/11/23 3:25 AM Result Value Ref Range NA 137 135 - 145 mmol/L K 3.7 3.5 - 5.0 mmol/L CL 108 98 - 108 mmol/L CO2 TOTAL 25 23 - 31 mmol/L AGAP 4 2 - 16 BUN 14 7 - 23 mg/dL GLUCOSE 103 70 - 110 mg/dL CREATININE 0.45 (L) 0.50 - 1.04 mg/dL CALCIUM 8.7 8.6 - 10.6 mg/dL eGFR 137.1 mL/min/1.73m2 Phosphorus Collection Time: 07/11/23 3:25 AM Result Value Ref Range PHOSPHORUS 3.3 2.5 - 5.0 mg/dL Magnesium Collection Time: 07/11/23 3:25 AM Result Value Ref Range MAGNESIUM 1.8 1.7 - 2.4 mg/dL Radiology No final results containing an impression from the past 48 hours were found. 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 Okay for regular diet. - MRI brain done on 07/08/2023-reviewed. -Decadron 2 mg every 12 hours per neurosurgery-tapering down -Eye patch on one eye due to double vision. -Pain control by pain team. On multi modal pain management. -Continue to monitor respiratory status -Continue to monitor cardiac status with continuous tele monitoring. -Maintain systolic blood pressure less than 140. -Keep Mag->2.0, K+->4.0 -Diet:Regular diet -Bowel regimen PRN -Monitor I/Os, creatinine, and decreases in UOP -Avoid Nephrotoxins -Monitor urine output closely. -Monitor signs for infection/leukocytosis/fevers/ chills. -Monitor for hypo/hyperglycemia events & follow protocol -PT/OT DVT prophylaxis: SCDs. Hold off on anticoagulation per neurology PPI prophylaxis: Protonix twice daily 07/11/2023 Is ICU downgrade Monitor clinical PT OT Follow-up neurosurgery closely Continue with dexamethasone Neurochecks. 07/07/23 for R craniotomy tumor resection. Nicole Hernandez MD 07/11/2023 3:16 PM T [facility] Tellyo 2023-07-10 14:07:12 [facility] Consult Report Requesting Physician: EL Rodriguez DATE OF SERVICE: 07/10/2023 NAME: Dany James #: [id number] Chief Complaint: We were asked to help manage pain Dany James, 23 year old, female who presents with postoperative head pain. HPI Patient is a 23 year old /White female who presented for a right retrosigmoid craniotomy for resection of meningioma. She is experiencing postoperative pain. She is in the ICU. She states pain is 9/10. The pain is sharp and feels like it is inside the head. The current regimen is ineffective. Pain management has been asked to assist with pain control. ALLERGY: Patient has no known allergies. SOCIAL HISTORY: Social History Tobacco Use Smoking Status Never Passive exposure: Never Smokeless Tobacco Never Social History Substance and Sexual Activity Alcohol Use Not Currently Social History Substance and Sexual Activity Drug Use Never FAMILY HISTORY: Family History Problem Relation Age of Onset Arthritis Mother No Significant Medical Problems Father Cancer Sister Thyroid Diabetes Maternal Aunt Heart Paternal Uncle Cancer Paternal Grandmother Asthma NoFHx defects NoFHx Genetic NoFHx Breast Cancer NoFHx Colon Cancer NoFHx Ovarian Cancer NoFHx Uterine Cancer NoFHx Depression NoFHx Psychiatry NoFHx Hypertension NoFHx High cholesterol NoFHx Mental retardation NoFHx Neurological NoFHx Osteoporosis NoFHx MEDICATIONS: Current Facility-Administered Medications Medication Dose Route Frequency Last Rate Last Admin dexAMETHasone (DECADRON) tablet 4 mg 4 mg Oral Q12H heparin (porcine) injection 5,000 Units 5,000 Units Subcutaneous Q8H methocarbamoL (ROBAXIN) tablet 750 mg 750 mg Oral Q6H 750 mg at 07/10/23 1221 oxyCODONE immediate release tablet 5 mg 5 mg Oral Q4HPRN 5 mg at 07/10/23 1221 acetaminophen (TYLENOL) tablet 1,000 mg 1,000 mg Oral Q8H 1,000 mg at 07/10/23 0542 celecoxib (CELEBREX) capsule 100 mg 100 mg Oral BID MEALS 100 mg at 07/10/23 0808 ipratropium (ATROVENT) 0.02 % nebulizer solution 0.5 mg 0.5 mg Inhalation Q6HPRN morpHINE (2 mg/mL) injection 2 mg 2 mg Slow IV Push Q2HPRN 2 mg at 07/09/232002 pantoprazole (PROTONIX) EC tablet 40 mg 40 mg Oral DAILY 40 mg at 07/10/23 08 polyethylene glycol 3350 powder 17 g 17 g Oral DAILY 17 g at 07/10/23 0808 sennosides (SENOKOT) tablet 8.6 mg 8.6 mg Oral BID 8.6 mg at 07/10/23 0807 docusate (COLACE) capsule 100 mg 100 mg Oral DAILY 100 mg at 07/10/23 0808 hydralAZINE (APRESOLINE) injection 10 mg 10 mg Slow IV Push Q2HPRN 10 mg at 07/08/23 1352 labetaloL (NORMODYNE) injection 20 mg 20 mg Slow IV Push Q2HPRN lidocaine-epinephrine (XYLOCAINE WITH EPINEPHRINE) 0.5 %-1:200,000 injection PRN 10 mL at 07/07/23 0914 NaCl 0.9% (NS) IV infusion 1,000 mL 1,000 mL IV Infusion CONTINUOUS 100 mL/hr at 07/10/23 1301 1,000 mL at 07/10/23 1301 niCARdipine (CARDENE I.V.) 40 mg in NaCL 200 mL (RTU) infusion 2.5-15 mg/hr IV Infusion TITRATE Stopped at 07/09/23 1133 ondansetron (ZOFRAN (PF)) injection 4 mg 4 mg Slow IV Push Q6HPRN 4 mg at 07/09/23 1619 proMETHazine (PHENERGAN) 12.5 mg in NS 50 mL IV piggyback (CNR) 12.5 mg IV Piggyback Q4HPRN Stopped at 07/08/23 0020 thrombin topical solution PRN 5,000 Units at 07/07/23 1010 PAST MEDICAL HISTORY: Past Medical History: Diagnosis Date Anemia of mother in , antepartum 09/05/2022 Anxiety Anxiety and depression 10/20/2018 Atypical chest pain 11/18/2019 Brain tumor Constipation due to slow transit 07/27/2020 Depression 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 Panic attacks Right upper quadrant abdominal pain 07/19/2020 Status post laparoscopic cholecystectomy 07/27/2020 STD (sexually transmitted disease) trich x 2019 SURGICAL HISTORY: Past Surgical History: Procedure Laterality Date CHOLECYSTECTOMY 07/2020 CRANIOTOMY RESECTION TUMOR WITH NAVIGATION (SHX) Right 07/07/2023 Surgeon: Roque Watts MD; Location: [facility] OR LOCATION INITIATE POST OP CHOLECYSTECTOMY CRITICAL PATHWAY IF NOT ALREADY DONE SO REVIEW OF SYSTEMS 14 Point ROS undertaken and negative except as noted: General: (-) fever, (-) chills, (-) weight loss Endo: (-) heat intolerance, (-) diabetes, (-) cold intolerance HEENT: (-) headache, (+) change in vision, (-) sore throat Neck: (-) pain, (-) difficulty swallowing, (-) mass Resp: (-) cough, (-) shortness of breath, (-) wheezing Cardio: (-) chest pain, (-) palpitations, (-) syncope GI: (-) abdominal pain, (-) vomiting, (-) diarrhea : (-) dysuria, (-) hematuria, (-) increased frequency Skin: (-) rash, (-) lesion Vasc: (-) claudication Neuro: (+) numbness, (-) weakness, (-) change in speech ANTONELLA: (-) muscle pain, (-) joint pain Psych: (-) anxiety, (-) depression, (-) psychiatric disorder PHYSICAL EXAMINATION Vitals: 07/10/23 0900 07/10/23 1000 07/10/23 1100 07/10/23 1200 BP: 116/75 Pulse: 63 67 Resp: 17 Temp: 36.5 ?C (97.7 ?F) TempSrc: Axillary SpO2: 97% 100% Weight: Height: Pain Scale: General: awake, alert, and oriented; no apparent distress HEENT: normocephalic, PERRLA with EOMI, wearing eye patch on the right side Neck: supple, no lymphadenopathy, no bruits, no JVD Cardio: regular rate and rhythm, no murmurs, rubs, or gallops Lungs: clear to auscultation bilaterally, no rhonchi, no crackles, no wheezes Abdomen: soft; non-tender; non-distended; normoactive bowel sounds Genital/rectal: deferred Extremities: no clubbing, cyanosis, or edema. Distal pulses palpable Skin: cranial incision c/d/i Muscle: normal RUE, LUE, RLE, LLE, normal ROM Neuro: decreased sensation right V1 and V2 distribution Lymphatics: no lymphadenopathy Psychology: normal mood and affect Review of Data: LABS - reviewed pertinent labs as below: CBC WBC (10*3/?L) Date Value 07/10/2023 11.32 (H) RBC (10*6/?L) Date Value 07/10/2023 2.99 (L) PLT (10*3/?L) Date Value 07/10/2023 295 HGB (g/dL) Date Value 07/10/2023 9.3 (L) HCT (%) Date Value 07/10/2023 27.6 (L) CMP NA (mmol/L) Date Value 07/10/2023 137 K (mmol/L) Date Value 07/10/2023 4.1 CALCIUM (mg/dL) Date Value 07/10/2023 8.8 CL (mmol/L) Date Value 07/10/2023 108 BUN (mg/dL) Date Value 07/10/2023 16 CREATININE (mg/dL) Date Value 07/10/2023 0.43 (L) GLUCOSE (mg/dL) Date Value 07/10/2023 114 (H) CO2 TOTAL (mmol/L) Date Value 07/10/2023 24 ALBUMIN (g/dL) Date Value 05/19/2023 4.1 T PROTEIN (g/dL) Date Value 05/19/2023 7.0 TOTAL BILI (mg/dL) Date Value 05/19/2023 0.5 BILI UNCON (mg/dL) Date Value 05/19/2023 0.3 BILI CONJ (mg/dL) Date Value 05/19/2023 0.0 ALT(SGPT) (U/L) Date Value 10/20/2018 25 ALTv (U/L) Date Value 05/19/2023 26 AST(SGOT) (U/L) Date Value 05/19/2023 26 ALK PHOS (U/L) Date Value 05/19/2023 89 IMAGING - reviewed, pertinent results as below: MR BRAIN W WO CONTRAST Result Date: 07/08/2023 Postsurgical changes of right retrosigmoid craniectomy and right cerebellopontine angle mass the bulking. The majority of the mass is been resected with a small amount of residual tumor along the dural margin abutting the basilar artery, extending over the posterior lip of the sella turcica and filling the right Meckel's cave. Postsurgical edema in the right cerebellar hemisphere and along the lateral aspect of the right brachium pontis and the right anterolateral ebony ASSESSMENT/PLAN: Loran Zohreh James is a 23 year old female presents with the following: Right petroclival meningioma, acute postoperative pain -s/p right retrosigmoid craniotomy for resection of meningioma -DC Morphine 2 mg IV q2h PRN pain scale 7-10 (dc 07/09) -Tylenol 1000 mg PO q8h -Celebrex 100 mg PO BID -Gabapentin 100 mg PO TID (07/09) -Oxycodone IR 5 mg PO q4h PRN pain scale 4-6 -Fentanyl 50 mcg IV q3h PRN pain scale 7-10 (07/09) Muscle spasms -Robaxin 750 mg PO q6h Headache -Fioricet PO q6h (07/09) Constipation -Adequate fluid intake encouraged -Monitor closely with opioid narcotic use -Colace 100 mg PO daily -Miralax 17 g PO daily -Senna 8.6 mg PO BID Disposition: Rx: Pharmacy: [facility] ([id number]) [id number] [place] [id number] Past medical history: depression/anxiety, panic attacks, brain tumor, 3 cm right petroclival meningioma Past surgical history: cholecystectomy, right retrosigmoid craniotomy for resection of meningioma Family history: noncontributory Social history: Denies alcohol, tobacco, and illicit drugs Allergies: No known allergies Goals: To provide safe and effective pain relief with PT/OT, wound care, during sleep, and to improve QOL Patient will require monitoring while using narcotic medications. Risks vs benefits of opioid medications were reviewed, including, but not limited to respiratory depression, accidental opioid overdose, dependency, altered mental status, drowsiness/sedation. All questions were answered. All diagnostics over last 24 hrs reviewed Plan of care discussed with patient and nurse Thank you EL Rodriguez for this kind consult and for allowing us to participate in the care of your patient. Case discussed with Dr. Kumar whom agrees with assessment and plan. Please don't hesitate to call for any question. Jeffry Butt, COLD FOOD PACKER, AGACNP, [place] [phone] [place] [employer] report reviewed: Dany James 2000 [address] [place] [id number] Summary Total Prescriptions 4 Total Private Pay 0 Total Prescribers 2 Total Pharmacies 1 Narcotics (excluding Buprenorphine) Current MME/day 0.00 30 Day Avg MME/day 0.00 Current Qty 0 02/22/2022 12/11/2021 1 PRRVAFTSIZ-[id number] CP 28.00 [address] [id number] [facility] ([id number]) 2 2.00 LME Comm Ins [place] 02/07/2022 12/11/2021 1 [id number]-[id number] CP 28.[address] [id number] [facility] ([id number]) 1 2.00 LME Comm Ins [place] 12/17/2021 12/11/2021 1 [id number] CP 28.[address] [place] [id number] [facility] ([id number]) 0 2.00 LME Comm Ins [place] 08/18/2021 08/18/2021 1 HYDROCODONE-ACETAMIN 5-325 MG 28.00 7 Un [place] [id number] [facility] (7271) 0 20.00 MME Comm Ins [place] [facility] ([id number]) [address] [place] [address] Associated attestation - Rg Kumar Jr., MD - 07/10/2023 10:45 PM CDT I have reviewed the chart and agree with the plan. Rg Kumar MD [facility] 2023-07-10 11:32:27 Associated Order(s): CONSULT OPHTHALMOLOGY Department of Ophthalmology and Visual Services Consult 07/10/2023 11:32 - Dany James - [id number] Date of Service: 07/10/2023 11:32 Digester Capper: Marian Avelar OD Reason for Consult: Diplopia s/p retrosigmoid craniotomy and meningioma resection CC / HPI 23 year old female with PMH of depression/anxiety, panic attacks and 3 cm right petroclival meningioma presenting with diplopia s/p craniotomy and meningioma resection day 3.Pt c/o blurry vision and diplopia, worse when eyes turn to right side. Pt denies pain with eye movements, denies any floaters or flash of lights. 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 Panic attacks Right upper quadrant abdominal pain 07/19/2020 Status post laparoscopic cholecystectomy 07/27/2020 STD (sexually transmitted disease) trich x 2 2019 Ocular History See HPI Ocular Family History See HPI Ocular Medications See HPI Medications Current Facility-Administered Medications: dexAMETHasone (DECADRON) tablet 4 mg, 4 mg, Oral, Q12H, Jakob Del Toro MD heparin (porcine) injection 5,000 Units, 5,000 Units, Subcutaneous, Q8H, Jessica Henning AGACNP methocarbamoL (ROBAXIN) tablet 750 mg, 750 mg, Oral, Q6H, Jakob Del Toro MD oxyCODONE immediate release tablet 5 mg, 5 mg, Oral, Q4HPRN, Jakob Del Toro MD acetaminophen (TYLENOL) tablet 1,000 mg, 1,000 mg, Oral, Q8H, Caroline Valladares MD, 1,000 mg at 07/10/23 0542 celecoxib (CELEBREX) capsule 100 mg, 100 mg, Oral, BID MEALS, Caroline Valladares MD, 100 mg at 07/10/23 0808 ipratropium (ATROVENT) 0.02 % nebulizer solution 0.5 mg, 0.5 mg, Inhalation, Q6HPRN, Jakob Del Toro MD morpHINE (2 mg/mL) injection 2 mg, 2 mg, Slow IV Push, Q2HPRN, Jakob Del Toro MD, 2 mg at 07/09/232002 pantoprazole (PROTONIX) EC tablet 40 mg, 40 mg, Oral, DAILY, Jakob Del Toro MD, 40 mg at 07/10/23 08 polyethylene glycol 3350 powder 17 g, 17 g, Oral, DAILY, Caroline Valladares MD, 17 g at 07/10/23 0808 sennosides (SENOKOT) tablet 8.6 mg, 8.6 mg, Oral, BID, Caroline Valladares MD, 8.6 mg at 07/10/23 0807 docusate (COLACE) capsule 100 mg, 100 mg, Oral, DAILY, Lopez Ballesteros MD, 100 mg at 07/10/23 0808 hydralAZINE (APRESOLINE) injection 10 mg, 10 mg, Slow IV Push, Q2HPRN, Lopez Ballesteros MD, 10 mg at 07/08/23 1352 labetaloL (NORMODYNE) injection 20 mg, 20 mg, Slow IV Push, Q2HPRN, Lopez Ballesteros MD lidocaine-epinephrine (XYLOCAINE WITH EPINEPHRINE) 0.5 %-1:200,000 injection, , , PRN, Roque Watts MD, 10 mL at 07/07/23 0914 NaCl 0.9% (NS) IV infusion 1,000 mL, 1,000 mL, IV Infusion, CONTINUOUS, Lopez Ballesteros MD, Last Rate: 100 mL/hr at 07/10/23 0141, 1,000 mL at 07/10/23 0141 niCARdipine (CARDENE I.V.) 40 mg in NaCL 200 mL (RTU) infusion, 2.5-15 mg/hr, IV Infusion, TITRATE, Lopez Ballesteros MD, Stopped at 07/09/23 1133 ondansetron (ZOFRAN (PF)) injection 4 mg, 4 mg, Slow IV Push, Q6HPRN, Sheri Tejeda MD, 4 mg at 07/09/23 1619 proMETHazine (PHENERGAN) 12.5 mg in NS 50 mL IV piggyback (CNR), 12.5 mg, IV Piggyback, Q4HPRN, Lopez Ballesteros MD, Stopped at 07/08/23 0020 thrombin topical solution, , , PRN, Roque Watts MD, 5,000 Units at 07/07/23 1010 Allergies No Known Allergies Physical Exam BP 116/75 | Pulse 67 | Temp 36.5 ?C (97.7 ?F) (Axillary) | Resp 13 | Ht 1.626 m (5' 4.02") | Wt 61.3 kg (135 lb 2.3 oz) | SpO2 100% | BMI 23.19 kg/m? Mental Status Oriented to Time, Place & Person: Yes Mood, Affect: Normal Visual Acuity: OD: 20/60 PH to with correction/glasses, near card OS: 20/20 PH to with correction/glasses, near card Intraocular Pressure: Patient administered 1 drop of proparacaine into each eye. OD: 26 OS: 23 Squinting OU, not corporate well. Pupils: OD: dark: 4 mm light: 3 mm rAPD: no OS: dark: 4 mm light: 3 mm rAPD: no Color Plates: normal OU Motility: Left eye, full Restricted, right eye(s) abduct Visual Field: OD: full to confrontational VF OS: full to confrontational VF OPH Exam: Penlight Exam OD: External: wnl, no edema, erythema, tenderness Lids and Lashes: no ptosis, wnl Conjunctiva/Sclera: white, not injected Cornea: clear Anterior Chamber: deep and quiet Iris: no lesions Lens: Clear OS: External: wnl, no edema, erythema, tenderness Lids and Lashes: no ptosis, wnl Conjunctiva/Sclera: white, not injected Cornea: clear Anterior Chamber: deep and quiet Iris: no lesions Lens: Clear Dilated Fundus Exam: Patient dilated with 1 drop of 2.5% phenylephrine and 1% tropicamide into each eye at 11:32 AM. OD: Optic Nerve: pink C/D 0.4 Macula: attached Vessels: normal caliber Periphery: no lesions, attached Vitreous:clear OS: Optic Nerve: pink C/D 0.4 Macula: attached Vessels: normal caliber Periphery: no lesions, attached Vitreous:clear Labs reviewed: Radiology: Hospital Encounter on 07/07/23 MR BRAIN W WO CONTRAST Narrative MR BRAIN W WO CONTRAST HISTORY: Female 23 years post op right petroclival lesion resection COMPARISON: Multiple prior studies, most recently MRI brain 06/02/2023 TECHNIQUE: Multiplanar multi weighted imaging of the brain was obtained before and following the administration of 12 mL IV ProHance FINDINGS: Postsurgical changes of right retrosigmoid craniectomy and metallic mesh cranioplasty for resection of right cerebellopontine angle mass resection are noted. The bulk of the previously noted mass in the cerebellopontine angle has been resected. There is residual enhancing tumor along the anterior dural margin extending over the right posterior margin of the sella turcica and filling the right Meckel's cave. There is also a small residual amount of tumor along the anterior dural margin more inferiorly abutting the proximal basilar artery just distal to the vertebrobasilar junction. A small postoperative fluid collection is noted in the right suboccipital soft tissues. The ventricles and cerebral sulci are normal in caliber and configuration. No hydrocephalus, midline shift or pathological extra-axial fluid collection is present. The basal cisterns are otherwise unremarkable. No restricted diffusion is present to suggest acute-subacute ischemia. Hyperintense T2/FLAIR signal is seen within the inferolateral aspect of the right cerebellar hemisphere and within the lateral aspect of the right brachium pontis and ebony. No additional focus of abnormal parenchymal signal intensity is present. No focus of abnormal parenchymal enhancement is present. No focus of abnormal parenchymal susceptibility signal loss is present. Extra-axial gradient blooming is noted in the right cerebellopontine angle along the surgical approach in keeping with postoperative blood products. A small right mastoid effusion is present. No abnormal fluid signal is present in the left mastoid air cells within the paranasal air sinuses. Impression Postsurgical changes of right retrosigmoid craniectomy and right cerebellopontine angle mass the bulking. The majority of the mass is been resected with a small amount of residual tumor along the dural margin abutting the basilar artery, extending over the posterior lip of the sella turcica and filling the right Meckel's cave. Postsurgical edema in the right cerebellar hemisphere and along the lateral aspect of the right brachium pontis and the right anterolateral ebony XR KUB Narrative EXAM: KUB HISTORY: Nausea and vomiting TECHNIQUE:KUB radiograph is obtained. FINDINGS:Bowel gas pattern is nonobstructive. Fecal material is seen throughout the colon. No radiopaque calculi are seen. Gallbladder is removed. Impression Moderate stool burden in the colon. FL MODIFIED BARIUM SWALLOW Narrative MODIFIED BARIUM SWALLOW HISTORY: Dysphagia, oral phase TECHNIQUE and FINDINGS: Barium of varying consistencies of from solid through thin liquid were administered to the patient during fluoroscopy. The study was performed with the speech pathologist. No structural abnormality is identified. No laryngeal penetration or aspirations were noted. Please refer to the speech pathologist's note for a full report. CT HEAD WO CONTRAST Narrative Ordering Physician: SHERI TEJEDA HISTORY: s/p craniestomy. COMPARISON: 05/17/2023 TECHNIQUE: CT of the brain without IV contrast. This study was performed according to ALARA principle for radiation dose reduction. FINDINGS: Postsurgical changes of right posterior craniectomy are seen. Pneumocephalus is seen in the surgical bed, basal cisterns, as well as along the anterior falx. Small amount of hemorrhage is seen along the left tentorium. No evidence of large hematoma, midline shift, or hydrocephalus is seen. There is partial opacification of the right mastoid air cells. Impression Postsurgical changes of posterior right craniectomy. Pneumocephalus as well as a small amount of hemorrhage layering along the right tentorium are presumed to be related to the recent postsurgical state. No midline shift or hydrocephalus are seen. Continued follow-up is recommended if clinically indicated. Please note that MRI is more sensitive in the setting of hyperacute ischemia. RL: [address] [facility]: [id number] CHEST 1 VW Narrative ORDERING PHYSICIAN: SHERI TEJEDA HISTORY: aspiration COMPARISON: none FINDINGS: Single frontal view of the chest. Heart is normal in size. There is no pulmonary edema. There are no focal areas of consolidation. There is no pneumothorax. There are no pleural effusions. Osseous structures are unremarkable. Please note that chest radiography is not a sensitive modality for the detection of masses. Impression No radiographic evidence of acute cardiopulmonary process. RL: [address] [facility]: [id number] Assessment/Plan: 23 year old female seen by ophthalmology for diplopia s/p craniotomy and meningioma resection Abducens Nerve Palsy, right - post craniotomy and tumor resection - VA 20/60 OU, IOP 26, no RAPD - OD unable to abduct, adduction normal, CT: 30PD ET. OS motility normal - Anterior exam: WNL - DFE: nerve normal - Brain MRI optic nerve WNL - Continue eye patching. -Ophthalmology will continue to follow in 3-5 days to recheck IOP. Right Esotropia See above. The management plan was discussed with the patient. Marian Avelar OD,PhD, [facility] Department of Ophthalmology and Visual Sciences OPT-MIXING MACHINE ATTENDANT STAFF [facility] 2023-07-09 12:52:01 Associated Order(s): CONSULT SPEECH Speech-Language Pathology 07/09/2023 12:52 PM Repeat consult received. Patient already on [employer] caseload with plan to complete MBS today when radiology's schedule permits. Jess Ulloa M.S., [facility] Speech-Language Pathologist Pager: [phone] Office: [phone] [facility] 2023-07-08 16:57:26 Associated Order(s): CONSULT ADULT OCCUPATIONAL THERAPY OT GENERAL EVALUATION Consult received via [employer], EMR reviewed and evaluation completed 07/08/23. Patient referred to occupational therapy for evaluation and treatment secondary to Meningioma s/p R crani for petroclival lesion resection. Patient agreeable to participate in occupational therapy. Discharge Recommendations: Therapy Needs and Potential:- Patient would benefit from continued skilled occupational therapy services to address: Decline in basic activities of daily living, Decline in instrumental activities of daily living, Decline in cognition, Decreased strength, and Decreased endurance - Patient demonstrates good potential to improve and meet therapy goals with further skilled occupational therapy services. - Patient appears motivated to improve their B/IADLs and return to their previous level of function. - Patient demonstrates ability to tolerate at least 30-60 minutes of active participation in occupational therapy. Challenges to Home Transition:- Requires physical assistance for BADLS - Requires physical assistance for IADLS - Decreased safety awareness/judgement - Increased risk of falls Equipment Recommendations:Bedside commode, Tub transfer bench, Hand held shower, and I certify that Dany James is under my care and that I had a [id number] encounter with this patient on: 07/08/23 . The primary reason for the durable medical equipment: limited functional mobility, fall risk. I am recomending that, based on my findings, the following is medically necessary durable medical equipment: 3 in 1 bedside commode. Height: Ht Readings from Last 1 Encounters: 07/07/23 5' 4" (1.626 m) Weight: Wt Readings from Last 1 Encounters: 07/07/23 135 lb 2.3 oz (61.3 kg) Duration of need: 99 months. Patient does not have access to regular toilet facilities because he/she is confined to: A single room. PLAN OF CARE: At least 2x/week Precautions: Weight bearing status: NA General: PPE Utilized: Gloves and Surgical mask, Fall, SBP <130, and ICU lines/monitoring Bracing: N/A Current Occupational Performance and/or Treatment: AM-PAC 6 Clicks (Raw Score 0=Dependent, 24=Independent; Low function Raw Score 0= Dependent, 32=Independent): Raw Score - Daily Activity: 11 T-Scale Score - Daily Activity: 29.04 Feeding: Supervision to drink from cup with encouragement for active participation and to promote [employer] stitcher onto cup Grooming: NT, pt declines need to complete at this time LB Dressing: Total Assistance to don socks Toilet Transfer: Minimal Assistance using RW for simulated BSC transfer with cues for technique and safety Toileting Hygiene: Total Assistance, hernandes catheter Functional Mobility: Upon arrival, pt sliding down in chair, requesting to return to bed to rest. Sit <> stand min assist using RW. Cues for hand/foot placement, safety, and technique. Pt performs lateral steps towards EOB using RW with cues for safety and technique. Sit > supine min assist. Cues for hand placement and technique. Patient/caregiver educated on:Adaptive equipment , ADL training, AROM, Compensatory techniques/adaptive strategies, Fall prevention, General strengthening, Role of OT, and Safety awareness Patient left semireclining in bed with call hunt in reach. Visitor present, Nursing present, and Vital signs stable . Please, see full evaluation below for more detail. 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 Panic attacks Right upper quadrant abdominal pain 07/19/2020 Status post laparoscopic cholecystectomy 07/27/2020 STD (sexually transmitted disease) trich x 2 2019 PSH: Past Surgical History: Procedure Laterality Date CHOLECYSTECTOMY 07/2020 CRANIOTOMY RESECTION TUMOR WITH NAVIGATION (SHX) Right 07/07/2023 Surgeon: Roque Watts MD; Location: [facility] OR LOCATION INITIATE POST OP CHOLECYSTECTOMY CRITICAL PATHWAY IF NOT ALREADY DONE SO PAIN: Pain Location: head Pain rating before treatment: 10, After treatment: 10 Pain Management: Nursing Notified and Repositioning Provided OCCUPATIONAL ROLES/HOME ENVIRONMENT: Home environment: Lives with boyfriend and Upstairs apartment . 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 Function prior to admission: Household ambulation, Community ambulation, Independent with BADLs, and Independent with IADLs Suspected ischemic or hemorraghic stroke patient: No Equipment prior to admission: None PERFORMANCE SKILLS/FACTORS: UE Muscle Tone: bilateral WNL UE ROM: bilateral AROM WFL UE Strength: LUKE UE WFL Hand dominance: right Dexterity/Coordination: bilateral Intact Endurance - Sitting: Fair - Standing: Poor Sitting Balance - Static: Fair Dynamic: Fair - Standing: Balance - Static Fair - Dynamic: Fair - Dizziness: No Skin Integrity: defer full skin assessment to nursing and surgical incision Sensation: bilateral Intact to light touch Oral Motor: Defer to [employer] consult, appears to tolerate drinking water without observable difficulty Communication: Able to verbalize needs Yes Other: N/A Vision: WFL Yes Other: glasses or contacts, pt with eyes closed throughout most of session Hearing: good; no issues reported COGNITION: Orientation: person, place, and situation - correct year, however reports date at May Follows Commands: 1-step Yes Multi-step Yes Inconsistencies No Safety Awareness/Judgment: Requires frequent cueing PROBLEM LIST: Decreased independence with ADL, Decreased strength/endurance for functional activity, Impaired safety awareness, and Impaired Cognition REHAB POTENTIAL/PROGNOSIS: good PATIENT/FAMILY GOALS: to get better TREATMENT/INTERVENTION PLAN: Functional motor treatment, Patient/Caregiver Education, Equipment recommendations, Daily living activities, Therapeutic exercises, Neuromuscular Re-Education, and Cognitive retraining GOAL(S): By discharge, patient will increase independence in daily living skills as follows: 1 Patient will perform toilet transfer with independence. 2 Patient will perform UB dressing with independence. 3 Patient will perform LB dressing with independence. 4 Patient will complete grooming tasks with independence while standing at the sink. 5 Patient will complete toileting hygiene, including clothing management, with independence. 6 Patient will increase endurance for functional activity as evidenced by ability to sustain 30 minutes of active participation. 7 Patient/caregiver will verbalize/demonstrate understanding/proficiency in the following home programs: Adaptive equipment , Compensatory techniques/adaptive strategies, Fall prevention, and General strengthening PATIENT-FAMILY TEACHING Patient provided with preferred teaching of verbal information on Adaptive equipment , ADL training, AROM, Compensatory techniques/adaptive strategies, Fall prevention, General strengthening, Role of OT, and Safety awareness. Shows readiness to learn. Verbal instruction teaching provided. Individual needs reinforcement of teaching. Kate Bills OTR/L, PHOTOGRAPHIC PLATE MAKER Total Timed Treatment Codes: 18 Min Total Treatment Time: 27 Min Patient Complexity Level High - An occupational therapy evaluation of high complexity was completed using the above tests and measures. The following information was obtained: An occupational profile and medical and therapy history, including review of medical and/or therapy records and extensive additional review of physical, cognitive, or psychosocial history related to current functional performance, Various standardized and non-standardized assessments were used to identify at least 5 or more performance deficits related to physical, cognitive, or psychosocial skills that result in activity limitations and/or participation restrictions, and Clinical decision-making is of high analytic complexity, which includes an analysis of the patient profile, analysis of data from comprehensive assessment(s), and consideration of multiple treatment options. Patient present with comorbidities that affect occupational performance. Significant modification of tasks or assistance (e.g., physical or verbal) with assessment(s) is necessary to enable patient to complete evaluation component. Dat Bills OT [facility] 2023-07-08 16:02:33 Associated Order(s): CONSULT SPEECH; CONSULT SPEECH (DYSPHAGIA) Speech-Language Pathology Clinical Swallow Evaluation 07/08/2023 Dany James : 2000 Age/Sex: 23 year old female Time IN/OUT: 15:30-15:54 Referring Physician: Jakob Del Toro MD Date of Referral: 07/08/2023 Reason for Referral: dysphagia Date of Admission/Onset: 07/07/23 SUBJECTIVE: Patient complained of right facial numbness and difficulty sucking from a straw earlier today. RN stated he gave her a cracker and she seemed to have difficulty with chewing because she couldn't feel the cracker. Patient was fatigued and complained of headache. RN stated patient had vomiting during change room attendant, but not during day shift. OBJECTIVE: is being seen for a clinical swallow evaluation. Dany James is a 23 year old female admitted post right retrosigmoid craniotomy for resection of right petroclival meningioma with PMH significant for depression/anxiety, panic attacks and 3 cm right petroclival meningioma with symptoms of positional diplopia and facial numbness, right hearing loss, fatigue and forgetfulness. Pertinent Imaging: CT HEAD WO CONTRAST Result Date: 07/08/2023 Postsurgical changes of posterior right craniectomy. Pneumocephalus as well as a small amount of hemorrhage layering along the right tentorium are presumed to be related to the recent postsurgical state. No midline shift or hydrocephalus are seen. Continued follow-up is recommended if clinically indicated. Please note that MRI is more sensitive in the setting of hyperacute ischemia. RL: [address] [facility]: [id number] CHEST 1 VW Result Date: 07/08/2023 No radiographic evidence of acute cardiopulmonary process. 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 Panic attacks Right upper quadrant abdominal pain 07/19/2020 Status post laparoscopic cholecystectomy 07/27/2020 STD (sexually transmitted disease) trich x 2019 Past Surgical History: Procedure Laterality Date CHOLECYSTECTOMY 07/2020 CRANIOTOMY RESECTION TUMOR WITH NAVIGATION (SHX) Right 07/07/2023 Surgeon: Roque Watts MD; Location: [facility] OR LOCATION INITIATE POST OP CHOLECYSTECTOMY CRITICAL PATHWAY IF NOT ALREADY DONE SO General Behavior: Cooperative and Fatigued; slightly anxious Hearing: Documented hearing impairment Respiratory Status: room air Orientation/Cognition: - Patient oriented to: person, place, time, and situation - Response type: verbal - Follows 1-step commands: Yes Current Diet Texture/Means of Nutrition: NPO Oral Motor Exam Dentition and Oral Cavity: dentate, moist oral mucosa, and clean oral cavity Face impaired function, characterized by slight right facial droop Jaw impaired function, characterized by subjective trismus Lips impaired function, characterized by decreased movement on the right and asymmetric labial spread and pucker Tongue midline on protrusion and impaired function, characterized by subjectively decreased lingual strength bilaterally Palate unable to assess/did not assess Vocal Quality clear Speech clear/intelligible CLINICAL SWALLOW EVALUATION Swallows on command: Yes Handles Secretions: Yes Volitional Cough: strong Spontaneous Cough: No PO trials were administered by patient and STEEL FIXER. Patient was provided with multiple bites/sips of ice chips, thin liquid (0), and puree (4) consistencies with the following observations: Oral Stage Anterior leakage of bolus observed (right) with puree (4) Pocketing of bolus not observed Subjectively prolonged oral phase not observed Oral residue not observed Mastication did not test Pharyngeal Stage Subjectively reduced laryngeal elevation not observed Coughing or throat clearing not observed Change in voice quality not observed Multiple swallows subjectively not observed Respiratory sufficiency and coordination WFL - no increased work of breathing and/or oxygen sats and respiratory rate remained stable Report of globus sensation Yes after purees 3 oz water challenge Did not administer Patient/Family/Staff education: Provided verbally. Discussed findings of evaluation, recommendations and STEEL FIXER plan of care. Discussed recommendation/option for instrumental swallow assessment. Patient/family verbalized understanding and is in agreement with plan of care. RN and referring provider notified of findings and recommendations. Patient/Family goal: to eat and drink ASSESSMENT/IMPRESSIONS: Dany James presents with oral dysphagia secondary to mild right facial droop and numbness due to right petroclival meningioma s/p craniotomy for resection. No signs of pharyngeal dysphagia were seen, but patient is at risk for pharyngeal dysphagia and aspiration due to location of tumor/surgery. She was assessed with ice chips, thin liquids and purees and did not exhibit any overt s/s aspiration. Note: aspiration cannot be ruled out nor confirmed without instrumental assessment/imaging. She had right sided anterior spillage of purees, but adequate oral containment of liquids. Laryngeal elevation was subjectively adequate upon palpation. Oral clearance was adequate from what could be seen, but view was limited by pt's reduced jaw opening. She endorsed some globus sensation in the throat after purees, but did not appear to produce multiple swallows or have any onset of wet voice quality. She appears grossly safe to initiate a full liquid diet at this time. Recommend objective swallow study to rule out aspiration and pharyngeal dysphagia due to increased risk for silent aspiration. Chewable solids were deferred for the objective swallow study. Prognosis is fair for safe po intake and meeting nutrition/hydration needs by mouth with time due to above findings, patient age, and previous level of functioning. RECOMMENDATIONS/GOALS: 1. Recommend patient initiate a full liquid-textured diet and swallow precautions: sit fully upright/in chair and crush meds and mix in puree if OK with MD 2. Recommend medical team place order for Modified Barium Swallow Study (AMALIA) to rule out aspiration, further assess swallowing physiology, determine safety for PO intake, and determine need for further dysphagia interventions. 3. Recommend STEEL FIXER therapy 2-5x/wk for 15-45 min/session while in-house to address the following goals: Swallowing: - Patient will tolerate the safest, least restricted po diet texture without overt s/sx of aspiration or other negative effects on medical condition Jess Ulloa M.S., [facility]-STEEL FIXER Speech-Language Pathologist Pager: [phone] Office: [phone] [facility] 2023-07-08 09:27:00 Associated Order(s): CONSULT ADULT PHYSICAL THERAPY Patient agreeable to working with physical therapy. Patient met semi reclined in bed. Recommend nursing staff utilize minimal assist to safely assist patient with mobility out of the bed or chair. PHYSICAL THERAPY EVALUATION Consult received, chart reviewed and evaluation complete this date. Patient is referred to PT for evaluation and treatment. Patient is a 23 year old female who presents to hospital for Meningioma [D32.9] s/p right retrosigmoid craniotomy for stage 2 resection of petroclival meningioma Discharge Recommendations: Therapy Needs and Potential: Patient would benefit from continued physical therapy services to address: decline in bed mobility decline in transfers decline in gait and/or balance decline in stair/step negotiation decreased strength decreased endurance Patient demonstrates good potential to improve and meet therapy goals with further physical therapy services. Patient appears motivated to improve their functional mobility and return to their previous level of function. Patient demonstrates ability to tolerate atleast 30-60 minutes of physical therapy with active participation. Challenges to Home Transition: increased risk of falls decreased caregiver availability environmental barriers Equipment recommendations: TBD with further assessment. Based on today, might benefit from a wheelchair, however will likely improve by time of discharge. Current Functional Status and/or Treatment: Pt's art line reading ~ 140-145 systolic upon arrival, but cuff pressure in the 120s. Nurse cleared to participate with patient and he provided hydralazine at start of session to manage blood pressure. AM-PAC 6 Clicks (Raw Score 0=Dependent, 24=Independent; Low function Raw Score 0= Dependent, 32=Independent): Raw Score - Basic Mobility : 15 T-Scale Score - Basic Mobility : 36.97 Bed Mobility: Supine to sit: Supervision for safety, extra time for task due to headache. Sitting balance: Good Dizziness No, but increased headache. Made an eye patch for left eye due to diplopia. Encouraged pt to switch eyes every couple hours. Blood pressure: Supine: 120/75 mm Hg (cuff pressure), systolic in 140-145 (art line) Transfers: sit-stand: Minimal Assistance Stand pivot transfer: Moderate Assistance due to pt crouching when performing and at risk of missing the chair. Static/dynamic standing balance: Pt never fully stood upright, demonstrated more crouched position with quick transition to the chair Dizziness No Blood pressure: In the chair: 116/66 mm Hg (cuff pressure), 146/65 mm Hg (art line) Ambulation: not appropriate due to elevated blood pressure Therapeutic exercise: Educated on importance of OOB, blood pressure parameters Discussed switching eye patch between eyes every 2 hours. After session, patient up in chair. Call button provided. Nurse notified on pt's performance. PLAN OF CARE: While in the hospital, PT will follow patient at least 3 times per week,once or twice a day, per patient's tolerance and needs. See below for complete details. 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 No elevator access DME: No device Prior level of Mobility: community ambulation, house hold ambulation Suspected ischemic or hemorraghic stroke:No Subjective: Pt is fully independent at baseline. 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 She reports a crushed injury to her right leg a couple weeks ago but states she didn't fracture anything and has been mobilizing fine since. Her boyfriend will be home a few days but then will return to work. Patient/Family Goals: improve pain Patient/Family verbalizes understanding of condition: Yes PAIN: -Pain Description: not stated -Pain Location: head, left leg -Pain rating before treatment: 9, After treatment: 9 -Pain Management: Nursing Notified COMMUNICATION Primary Language: Egyptian Able to Verbalize needs: Yes Vision:glasses, diplopia, improved with patch to left eye. Blurry vision right eye but able to read name badge Hearing:decreased to right side. ORIENTATION/COGNITION: Oriented to: person, place, date/time, and situation Awake: Yes Alert: Yes Dizzy: No Follows Commands: Yes 1-Step Yes Multi-Step Yes Inconsistent: No NEUROLOGICAL Light Touch: within functional limits bilateral LE Heel to das: WNL BLE Tone: WNL BLE BALANCE: Sitting: Static: Good Dynamic: Good Standing: Static: NT Dynamic: NT RANGE OF MOTION: within functional limits bilateral LE STRENGTH: 4+/5 (Good), bilateral LE ENDURANCE: Fair, Room air SKIN INTEGRITY: intact, bruising to right leg from prior injury PROBLEM LIST: Decline in bed mobility, Decline in gait, Decline in transfers, Difficulty with stairs, Decreased strength, Decreased endurance, and Decreased balance ASSESSMENT: Patient is a 23 year old female seen secondary to the above listed diagnosis. Patient would benefit from continued PT to address the above listed deficits to maximize independence and safety with functional mobility. Rehabilitation Potential: good Goals: The following goals are to maximize independence and safety with functional mobility to eventually return to prior living situation and prior functional status. Upon discharge, patient and/or family will demonstrate the followin. Supine-sit: Independent 1. sit-stand: Independent Stand pivot transfer: Independent 3. Independent with ambulation, Feet: 300 using least assistive device. 4. Independent up/down 14 stairs using bilateral hand rails. Treatment Plan: Gait training, Gait training on stairs, Therapeutic exercise, Transfer training, Balance training, Bed mobility training, Equipment needs assessment, Safety education, patient/caregiver education, Wheelchair mobility training, Neuromuscular Re-Education, and Functional Motor Training PATIENT EDUCATION: Patient provided with preferred teaching of verbal information on role of PT, plan of care, importance of OOB with assist, blood pressure parameters. Shows readiness to learn. Verbal instruction teaching provided. Individual is able to read and needs reinforcement of teaching. Total Time Tx Codes in Minutes: 15 min Total Treatment Time in Minutes: 24 min Lexis Chappell PT, DPT Lexis Chappell PT [facility] - Health History and Physical Notes Date/Time Note Provider Source 2024-08-24 07:34:10 I have seen and examined patient. Denies interval changes. Accompanied by her friend, John Patient Vitals for the past 24 hrs: BP Temp Temp src Pulse Resp SpO2 Height Weight 08/24/24 0653 103/67 36.6 ?C (97.9 ?F) TEMPORAL ART 74 16 99 % 1.626 m (5' 4") 73.5 kg (162 lb) NAD RRR Breathing unlabored Soft, NTTP, no rash No edema A/P: will proceed with laparoscopic bilateral salpingectomy as planned. All questions answered. Hawa Leos MD 08/24/2024 7:35 AM Source Note - Hawa Leos MD - 08/18/2024 2:30 PM CDT Chief Complaint Patient presents with Pre-surgical Visit HPI: Dany James is a 24 year old female here for pre-op BTL. Desires bilateral salpingectomy. 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 Panic attacks Right upper quadrant abdominal pain 07/19/2020 Status post laparoscopic cholecystectomy 07/27/2020 STD (sexually transmitted disease) trich x 2 2019 Past Surgical History: Procedure Laterality Date CHOLECYSTECTOMY 07/2020 CRANIOTOMY RESECTION TUMOR WITH NAVIGATION (SHX) Right 07/07/2023 Surgeon: Roque Watts MD; Location: [facility] OR LOCATION INITIATE POST OP CHOLECYSTECTOMY CRITICAL PATHWAY IF NOT ALREADY DONE SO OB History Para Term AB Living 4 4 3 1 0 4 SAB IAB Ectopic Multiple Live Births 0 0 0 0 4 # Outcome Date GA Lbr Cade/2nd Weight Sex Type Anes PTL Lv 4 Term 07/12/24 37w0d 7 lb 11.1 oz (3.49 kg) F NORMAL SPONT EPI KATHLEEN 3 Term 11/09/22 38w0d 7 lb 4.1 oz (3.29 kg) M NORMAL SPONT EPI KATHLEEN 2 06/23/19 36w2d 7 lb 4.4 oz (3.3 kg) M NORMAL SPONT EPI N KATHLEEN 1 Term 06/09/18 38w0d 7 lb 4 oz (3.29 kg) M NORMAL SPONT KATHLEEN No Known Allergies Patient's Medications START taking these medications No medications on file CONTINUE taking these medications which have NOT CHANGED FERROUS SULFATE 325 MG (65 MG IRON) TABLET Take 1 tablet by mouth in the morning. [id number] FUM-FOLIC 27 MG IRON- 1 MG FOLIC TABLET Take 1 tablet by mouth in the morning. START taking Modified Medications as Prescribed No medications on file STOP taking these medications No medications on file Family History Problem Relation Age of Onset Arthritis Mother No Significant Medical Problems Father Cancer Sister Thyroid Diabetes Maternal Aunt Heart Paternal Uncle Cancer Paternal Grandmother Asthma NoFHx defects NoFHx Genetic NoFHx Breast Cancer NoFHx Colon Cancer NoFHx Ovarian Cancer NoFHx Uterine Cancer NoFHx Depression NoFHx Psychiatry NoFHx Hypertension NoFHx High cholesterol NoFHx Mental retardation NoFHx Neurological NoFHx Osteoporosis NoFHx Social History Socioeconomic History Marital status: Single Tobacco Use Smoking status: Never Passive exposure: Never Smokeless tobacco: Never Vaping Use Vaping status: Never Used Substance and Sexual Activity Alcohol use: Not Currently Drug use: Never Sexual activity: Yes Partners: Male Social History Narrative Denies domestic violence or abuse Zoroastrian preference: None No exposure to cats Pt denies current or past physical, sexual, or emotional abuse, human trafficking. Michelet Wisdom RN 01/01/2023 7:13 AM Social Drivers of Health Financial Resource Strain: Low Risk (07/08/2023) Overall Financial Resource Strain (CARDIA) Difficulty of Paying Living Expenses: Not very hard Food Insecurity: No Food Insecurity (07/08/2023) Hunger Vital Sign Worried About Running Out of Food in the Last Year: Never true Ran Out of Food in the Last Year: Never true Transportation Needs: No Transportation Needs (07/08/2023) PRAPARE - Transportation Lack of Transportation (Medical): No Lack of Transportation (Non-Medical): No Physical Activity: Inactive (07/08/2023) Exercise Vital Sign Days of Exercise per Week: 0 days Minutes of Exercise per Session: 0 min Stress: No Stress Concern Present (03/19/2023) [place] [employer] - Occupational Stress Questionnaire Feeling of Stress : Not at all Social Connections: Unknown (07/08/2023) Social Connection and Isolation Panel [NHANES] Frequency of Communication with Friends and Family: More than three times a week Recent Concern: Social Connections - Moderately Isolated (07/08/2023) Social Connection and Isolation Panel [NHANES] Frequency of Communication with Friends and Family: More than three times a week Frequency of Social Gatherings with Friends and Family: More than three times a week Attends Zoroastrian Services: 1 to 4 times per year Active Member of Clubs or Organizations: No Attends Club or Organization Meetings: Never Marital Status: Never Housing Stability: Low Risk (07/08/2023) Housing Stability Vital Sign Unable to Pay for Housing in the Last Year: No Number of Places Lived in the Last Year: 1 Unstable Housing in the Last Year: No Review of Systems Constitutional: Negative for chills, fatigue and fever. HENT: Negative for congestion, rhinorrhea, sneezing and sore throat. Respiratory: Negative for cough, chest tightness, shortness of breath and wheezing. Cardiovascular: Negative for chest pain and palpitations. Gastrointestinal: Negative for abdominal distention, abdominal pain, anal bleeding, blood in stool, constipation, diarrhea, nausea and vomiting. Genitourinary: Negative for dysuria, urgency, frequency, vaginal bleeding and vaginal discharge. Musculoskeletal: Negative for gait problem. Skin: Negative for rash. Neurological: Negative for syncope, light-headedness and headaches. Psychiatric/Behavioral: Negative for dysphoric mood, self-injury and suicidal ideas. Hematological: Does not bruise/bleed easily. BP: (112)/(70) Temp: [36.2 ?C (97.2 ?F)] Temp source: Temporal Artery (08/18 1442) Pulse: [84] Resp: -- SpO2: -- Height: [5' 4" (162.6 cm)] Weight: [160 lb (72.6 kg)] BMI (calculated): [27.46] Physical Exam Vitals reviewed. Constitutional: She is oriented to person, place, and time. Her body habitus is normal Cardiovascular: Regular rate and rhythm. Pulmonary/Chest: Breath sounds clear to auscultation. Normal inspiratory effort. Abdominal: Abdomen is soft. No tenderness present. No hernia palpated or inspected. Neuro/Psychiatric: She has a normal mood and affect. She is oriented to person, place, and time. A/P: Pre-operative evaluation for tubal ligation (primary encounter diagnosis) Comment: BTL consent signed on 07/08/2024. "I counseled the patient regarding risks, benefits and alternatives of laparoscopic Bilateral Tubal Ligation including: risk of infection, bleeding, need for transfusion of blood/blood products, injury to ureter, bladder, bowel with possible further surgery, stint, catheterization or colostomy to repair, conversion to open. The permanence of this procedure and risk of regret in 1 in 3 women were discussed. tubal ligation failure rate is 0.75% and higher in women younger than 30 years old. There is an increased risk for ectopic and the need to seek medical attention should failure of tubal ligation occur. Alternatives discussed include: Oral Contraceptive Agents, Intrauterine Device, Nexplanon, Depo Provera, Ring, Patch, Condoms/foam, vasectomy of partner, or bilateral salpingectomy. Salpingectomy has been shown to decrease risk of ovarian cancer, similar to tubal ligation; however, no tubal reversal will be able to be done in the future and might be able to achieve with in vitro fertilization only. All questions answered, and patient expressed her desire to proceed with bilateral salpingectomy." - Tentatively plan for laparoscopic bilateral salpingectomy on 08/24/2024 -Discussed patient with anesthesia on 08/16/24. No concerns as long as no concerns from neurosurgery. Communicated with Dr. Watts on 08/16/24 from neurosurgery, who also has no concerns. - RTC in 2 wks for post-op visit Hawa Leos MD T [facility] 2024-07-12 09:51:48 TRIAGE/L&D HISTORY & PHYSICAL IDENTIFYING DATA Dany James is 24 year old, /White, 37w0d, female with CARLEE 08/02/2024, by Last Menstrual Period. : 2000 Primary Care Physician: Brandon Espinoza CHIEF COMPLAINT IOL HISTORY OF PRESENT ILLNESS Dany James is a 24 year old at 37w0d who presents for IOL. Patient denies vaginal bleeding, denies leakage of fluid, admits contractions. Patient denies headache, denies nausea/vomiting, denies RUQ pain, denies visual abnormalities. Endorses normal movement. PAST OBSTETRIC HISTORY OB History Para Term AB Living 4 3 2 1 0 3 SAB IAB Ectopic Multiple Live Births 0 0 0 0 3 # Outcome Date GA Lbr Cade/2nd Weight Sex Type Anes PTL Lv 4 Current 3 Term 11/09/22 38w0d 3290 g M NORMAL SPONT EPI KATHLEEN 2 06/23/19 36w2d 3300 g M NORMAL SPONT EPI N KATHLEEN 1 Term 06/09/18 38w0d 3289 g M NORMAL SPONT KATHLEEN PAST MEDICAL HISTORY Problem list: Patient Active Problem List Diagnosis Date Noted Encounter for induction of labor 07/12/2024 High-risk in third trimester 06/10/2024 Pelvic pain affecting in third trimester, antepartum 05/06/2024 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) antibody 05/06/2024 Ataxia 09/09/2023 Recurrent falls while walking 09/09/2023 Double vision 09/09/2023 Anemia due to other cause, not classified 09/09/2023 Acute postoperative respiratory insufficiency 07/07/2023 Bilious vomiting with nausea 07/07/2023 Aspiration pneumonitis 07/07/2023 Nausea 05/21/2023 Family history of gastric cancer 05/21/2023 Meningioma 05/20/2023 Left lower quadrant abdominal pain 03/19/2023 Panic attack 03/19/2023 History of depression 06/25/2022 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 09/13/2021 Migraine variant with headache 09/13/2021 Brain tumor 08/14/2021 Liver mass, right lobe 08/23/2020 Mild major depression 08/23/2020 Constipation, unspecified constipation type 07/27/2020 Pain of upper abdomen 07/19/2020 Atypical chest pain 11/18/2019 Sinus arrhythmia seen on electrocardiogram 11/18/2019 History of delivery, currently in second trimester 05/07/2019 Chronic migraine without aura without status migrainosus, not intractable 03/03/2019 Hx of suicide attempt 02/03/2019 Anxiety and depression 10/20/2018 Cholestasis of in third trimester 06/08/2018 Operations: Past Surgical History: Procedure Laterality Date CHOLECYSTECTOMY 07/2020 CRANIOTOMY RESECTION TUMOR WITH NAVIGATION (SHX) Right 07/07/2023 Surgeon: Roque Watts MD; Location: [facility] OR LOCATION INITIATE POST OP CHOLECYSTECTOMY CRITICAL PATHWAY IF NOT ALREADY DONE SO 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 Panic attacks Right upper quadrant abdominal pain 07/19/2020 Status post laparoscopic cholecystectomy 07/27/2020 STD (sexually transmitted disease) trich x 2 2019 CURRENT HEALTH STATUS Medications: Current Facility-Administered Medications Medication Dose Route Frequency Last Rate Last Admin D5W-LR IV infusion 1,000 mL 1,000 mL IV Infusion TITRATE 75 mL/hr at 07/12/24 1134 1,000 mL at 07/12/24 1134 lactated ringers IV infusion 250 mL 250 mL IV Infusion PRN - SEE INSTRUCTIONS lidocaine 1% (PF) (XYLOCAINE) injection 0.3 mL 0.3 mL Infiltration PRN - SEE INSTRUCTIONS lidocaine 1% (XYLOCAINE) 10 mg/mL (1 %) injection 50 mL 50 mL Infiltration PRN - SEE INSTRUCTIONS Oxytocin in Normal Saline 30 unit/500 mL IV infusion Soln 0-42 jill-units/min IV Infusion CONTINUOUS sodium citrate-citric acid (BICITRA) 500-334 mg/5 mL solution 30 mL 30 mL Oral PRE-PROCEDURE ONCE Allergies and drug reactions: Patient has no known allergies. HOME MEDICATIONS Medications Prior to Admission Medication Sig Dispense Refill Last Dose ferrous sulfate (IRON, FERROUS SULFATE,) 325 mg (65 mg iron) tablet Take 1 tablet by mouth in the morning and 1 tablet in the evening. 60 tablet 0 valACYclovir (VALTREX) 500 mg tablet Take 1 tablet by mouth in the morning for 7 days. 7 tablet 0 hydrOXYzine 25 mg tablet Take 1 tablet by mouth every 6 (six) hours as needed for Itching. 30 tablet 0 Taking ursodioL 500 mg tablet Take 1 tablet by mouth in the morning and 1 tablet in the evening. Do all this for 46 days. 92 tablet 0 Taking ondansetron 4 mg disintegrating tablet Take 1 tablet by mouth every 8 (eight) hours as needed for Nausea and Vomiting (N/V). 14 tablet 0 Not Taking ferrous sulfate (IRON, FERROUS SULFATE,) 325 mg (65 mg iron) tablet Take 1 tablet by mouth in the morning and 1 tablet in the evening. 60 tablet 3 Taking PNV no.95/ferrous fum/folic ac ( ORAL) Take by mouth. Taking ascorbic acid, vitamin C, (VITAMIN C) 500 mg tablet Take 1 tablet by mouth in the morning. 30 tablet 2 Not Taking SOCIAL HISTORY Tobacco History: Social History Tobacco Use Smoking Status Never Passive exposure: Never Smokeless Tobacco Never Drug History: Social History Substance and Sexual Activity Drug Use Never Alcohol History: Social History Substance and Sexual Activity Alcohol Use Not Currently FAMILY HISTORY Family History Problem Relation Age of Onset Arthritis Mother No Significant Medical Problems Father Cancer Sister Thyroid Diabetes Maternal Aunt Heart Paternal Uncle Cancer Paternal Grandmother Asthma NoFHx defects NoFHx Genetic NoFHx Breast Cancer NoFHx Colon Cancer NoFHx Ovarian Cancer NoFHx Uterine Cancer NoFHx Depression NoFHx Psychiatry NoFHx Hypertension NoFHx High cholesterol NoFHx Mental retardation NoFHx Neurological NoFHx Osteoporosis NoFHx REVIEW OF SYSTEMS General: negative Skin: negative HEENT: negative Neck: negative HEME: negative Resp: negative Cardio: negative GI: negative : negative Endo: negative Neuro: negative Back: negative ANTONELLA: negative Psych: negative VITAL SIGNS BP: (93-129)/(60-75) Temp: [36.7 ?C (98 ?F)] Temp source: Oral (07/12 946) Pulse: [72-98] Resp: [15-16] SpO2: [98 %-100 %] Height: [162.6 cm (5' 4")] Weight: [83.5 kg (184 lb)] BMI (calculated): [31.58] PHYSICAL EXAMINATIONS General: patient alert and in no acute distress HEENT: symmetric, negative for masses Lungs: unlabored breathing Breast: deferred Cardiology: peripheral pulses intact and regular Abdomen: soft, non-tender, non-distended, no liver, spleen or abnormal masses palpated and Gravid Extremities: no clubbing, cyanosis, or edema Neuro: patient moving all extremities, no facial droop : SVE 2/25/Ballotable. REVIEW OF LABORATORY, PATHOLOGY, AND RADIOLOGY DATA Lab results: Type & Screen Lab Results Component Value Date/Time IABORH A POSITIVE 07/12/2024 10:06 AM IAT Negative 07/12/2024 10:06 AM Serologies Lab Results Component Value Date/Time VZVIGG Positive 01/05/2024 04:02 PM RUBG Positive 01/05/2024 04:02 PM SYPIGG Reactive (A) 01/01/2023 07:56 AM HBSAG Negative 07/12/2024 10:06 AM HBSAG 0.07 07/12/2024 10:06 AM Chlamydia Lab Results Component Value Date/Time VCAA Negative 07/05/2024 03:29 PM Group B Strep Lab Results Component Value Date/Time CGB Negative 07/05/2024 03:29 PM GTT Lab Results Component Value Date/Time HRPK1YB 109 (L) 06/04/2024 10:08 AM CBC Lab Results Component Value Date/Time HGB 10.3 (L) 07/05/2024 04:01 PM HCT 32.2 (L) 07/05/2024 04:01 PM PLT 267 07/05/2024 04:01 PM Active Hospital Problems Diagnosis Date Noted Encounter for induction of labor 07/12/2024 Brain tumor 08/14/2021 Anxiety and depression 10/20/2018 Cholestasis of in third trimester 06/08/2018 Resolved Hospital Problems No resolved problems to display. Present on Admission: Encounter for induction of labor Brain tumor Anxiety and depression Cholestasis of in third trimester Placenta Accreta Screening Prior ? : No Prior Uterine Surgery?: No Placenta low lying/previa in current ? : No Screening outcome: A positive screening outcome indicates a history of prior delivery or prior uterine surgery, AND the presence of either a placenta low lying/previa or ultrasound suspicion of PASD in the current . Not performed. ASSESSMENT AND PLAN Dany James is a 24 year old at 37w0d by LMP who presents for IOL. IOL - Reports Ctx, good mvt. - Denies LOF and VB. - SVE: 06/01/Ballotable. Plan: IOL with FB and Pitocin. ICP - Dx in 05/2024 based on sx and BA 14 - Hx of ICP in prior . - On Ursodiol 500 mg BID and Atarax 25 mg PRN. - Denies any current sx. Hx of HSV - Speculum not performed since patient denied any hx of genital flares. 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 MPDPS - Consents signed on 07/08, not mature. - Abdominal surgeries: Lap cholecystectomy (2020) - Will follow up in clinic for interval salpingectomy. Hx of meningioma - S/p brain tumor resection in July 2023 - Last seen by NS on 01/08/24 with plan for follow-up - s/p ophthalmology visit on 03/15/24 with recommendation to follow-up prn - s/p MFM visit on 01/23/24 - Reports on and off mild headache and pain around R eye since surgery. - During last in 2022 when brain lesion was present, sx were stable and she subsequently had a vaginal delivery without complications. Plan: MRI brain w/wo Gadolinium to be done PP. Hx of Anxiety and Depression - stable mood. - Per chart review, father of the baby is in [place] [facility] and she feels safer and less anxious Antepartum course reviewed - 1 h 109, sero negative, Rimmune, VZVimmune, A positive/IAT negative, GBS negative, Pap NILM 09/2023 - H/H, plt: 10.3 / 32.2, 267 on 07/05/2024 - PP control plan: Bilateral salpingectomy. - pvt Dr. Leos. Fetus - Presentation on admission: cephalic - anterior placenta - EFW: 3356 g, 43%tile - FHT reactive and reassuring - Normal anatomy scan Maribel Fierro MD Associated attestation - Alisha Monge MD - 07/12/2024 12:28 PM CDT I personally examined the patient on 07/12/[address] Fierro's resident note as written. I actively participated in the decision-making process. Please see the resident's note for additional details. [facility] 2023-07-07 21:24:04 Images from the original note were not included. Pulmonary Critical Care Admission H&P Note - [facility] Yellow Team Date of Service: 07/07/2023 21:24 LOS: 0 Code Status: Full CHIEF COMPLAINT: Right meningioma status postcraniotomy SUBJECTIVE: HPI: Dany James is a 23 year old female with past medical history significant for depression/anxiety, panic attacks and 3 cm right petroclival meningioma with symptoms of positional diplopia and facial numbness as well as fatigue/forgetfulness who presents to the ICU after undergoing right retrosigmoid craniotomy for resection of meningioma. Patient is still lethargic postop and had multiple episodes of vomiting. No desaturation noted as patient was aggressively suctioned and administered DuoNeb therapy immediately. Unclear if she was having seizure-like activity thus she was loaded with Keppra. Currently hemodynamically stable and intermittently following simple commands. No reports of any fevers, chills, hypotension or complications during the procedure. She did receive 6 L of crystalloid and 1 L of albumin with concomitant 5 L urine output during the procedure after receiving mannitol 1.5 g/kg.. Hospital Course: 07/06-admitted to the ICU for postoperative care after right retrosigmoid craniotomy for right petroclival meningioma resection. Postoperative course complicated by vomiting. 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 Panic attacks Right upper quadrant abdominal pain 07/19/2020 Status post laparoscopic cholecystectomy 07/27/2020 STD (sexually transmitted disease) trich x 2 2019 PAST SURGICAL HISTORY Past Surgical History: Procedure Laterality Date CHOLECYSTECTOMY 07/2020 INITIATE POST OP CHOLECYSTECTOMY CRITICAL PATHWAY IF NOT ALREADY DONE SO FAMILY HISTORY Family History Problem Relation Age of Onset Arthritis Mother No Significant Medical Problems Father Cancer Sister Thyroid Diabetes Maternal Aunt Heart Paternal Uncle Cancer Paternal Grandmother Asthma NoFHx defects NoFHx Genetic NoFHx Breast Cancer NoFHx Colon Cancer NoFHx Ovarian Cancer NoFHx Uterine Cancer NoFHx Depression NoFHx Psychiatry NoFHx Hypertension NoFHx High cholesterol NoFHx Mental retardation NoFHx Neurological NoFHx Osteoporosis NoFHx SOCIAL HISTORY Social History Socioeconomic History Marital status: Single Tobacco Use Smoking status: Never Passive exposure: Never Smokeless tobacco: Never Vaping Use Vaping Use: Never used Substance and Sexual Activity Alcohol use: Not Currently Drug use: Never Sexual activity: Not Currently Partners: Male Social History Narrative Denies domestic violence or abuse Zoroastrian preference: None No exposure to cats Pt denies current or past physical, sexual, or emotional abuse, human trafficking. Michelet Wisdom RN 01/01/2023 7:13 AM Social Determinants of Health Financial Resource Strain: Low Risk (03/19/2023) Overall Financial Resource Strain (CARDIA) Difficulty of Paying Living Expenses: Not hard at all Food Insecurity: No Food Insecurity (03/19/2023) Hunger Vital Sign Worried About Running Out of Food in the Last Year: Never true Ran Out of Food in the Last Year: Never true Transportation Needs: No Transportation Needs (03/19/2023) PRAPARE - Transportation Lack of Transportation (Medical): No Lack of Transportation (Non-Medical): No Physical Activity: Sufficiently Active (03/19/2023) Exercise Vital Sign Days of Exercise per Week: 6 days Minutes of Exercise per Session: 150+ min Stress: No Stress Concern Present (03/19/2023) [place] [employer] - Occupational Stress Questionnaire Feeling of Stress : Not at all Social Connections: Moderately Isolated (03/19/2023) Social Connection and Isolation Panel [NHANES] Frequency of Communication with Friends and Family: More than three times a week Frequency of Social Gatherings with Friends and Family: More than three times a week Attends Zoroastrian Services: 1 to 4 times per year Active Member of Clubs or Organizations: No Attends Club or Organization Meetings: Never Marital Status: Never Intimate Partner Violence: Not At Risk (03/19/2023) Humiliation, Afraid, Rape, and Kick questionnaire Fear of Current or Ex-Partner: No Emotionally Abused: No Physically Abused: No Sexually Abused: No Housing Stability: Low Risk (03/19/2023) Housing Stability Vital Sign Unable to Pay for Housing in the Last Year: No Number of Places Lived in the Last Year: 1 Unstable Housing in the Last Year: No ALLERGIES No Known Allergies REVIEW OF SYSTEMS Unable to obtain due to patient's neurologic status postoperatively OBJECTIVE: PHYSICAL EXAMINATION Vitals: 07/03/23 0934 07/07/23 0635 BP: 127/77 Pulse: 74 Resp: 18 Temp: 36.3 ?C (97.4 ?F) TempSrc: Temporal Artery SpO2: 100% Weight: 132 lb (59.9 kg) 135 lb 2.3 oz (61.3 kg) Height: 5' 4" (1.626 m) 5' 4" (1.626 m) Temp: [36.3 ?C (97.4 ?F)] Pulse: [74] Resp: [18] BP: (127)/(77) Arterial Line BP: (-9-274)/(-11-274) General: Patient lethargic but arousable HEENT: Normocephalic atraumatic, extraocular muscles appear intact, mucosa moist, neck supple Heart: Tachycardia, no murmurs, rubs Lungs: Diminished breath sounds with intermittent rhonchi GI: Soft, nontender, nondistended, positive bowel sounds ? quadrants Extremities: No clubbing, cyanosis or edema noted Neurologic: No new focal neurologic changes. Patient is not yet following commands postanesthesia Intake/Output: Intake/Output Summary (Last 24 hours) at 07/07/20232123 Last data filed at 07/07/20232122 Gross per 24 hour Intake 8000 ml Output 5800 ml Net 2200 ml Lines/catheters: PIV x 2 Hernandes catheter MEDICATIONS All inpatient medications reviewed Current Facility-Administered Medications Medication Dose Route Frequency Last Rate Last Admin acetaminophen (OFIRMEV) IV piggyback 1,000 mg 1,000 mg IV Piggyback ONCE 400 mL/hr at 07/07/232122 1,000 mg at 07/07/232122 [START ON 07/08/2023] acetaminophen (TYLENOL) tablet 650 mg 650 mg Oral Q4HPRN ampicillin-sulbactam (UNASYN) 3 g in NaCl 0.9% (NS) 100 mL MINI-BAG 3 g IV Piggyback Q6H ABX [START ON 07/08/2023] ceFAZolin (ANCEF) 2,000 mg in NaCl 0.9% (NS) 100 mL MINI-BAG 2,000 mg IV Piggyback Q8H ABX [START ON 07/08/2023] dexamethasone (DECADRON PHOSPHATE) injection 8 mg 8 mg Slow IV Push Q12H [START ON 07/08/2023] docusate (COLACE) capsule 100 mg 100 mg Oral DAILY hydralAZINE (APRESOLINE) injection 10 mg 10 mg Slow IV Push Q2HPRN [START ON 07/08/2023] ipratropium-albuteroL (DUONEB) 0.5 mg-3 mg(2.5 mg base)/3 mL nebulizer solution 3 mL 3 mL Inhalation Q6H labetaloL (NORMODYNE) injection 20 mg 20 mg Slow IV Push Q2HPRN lidocaine-epinephrine (XYLOCAINE WITH EPINEPHRINE) 0.5 %-1:200,000 injection PRN 10 mL at 07/07/23 0914 morpHINE (2 mg/mL) injection 4 mg 4 mg Slow IV Push Q2HPRN NaCl 0.9% (NS) IV infusion 1,000 mL 1,000 mL IV Infusion CONTINUOUS niCARdipine (CARDENE I.V.) 40 mg in NaCL 200 mL (RTU) infusion 2.5-15 mg/hr IV Infusion TITRATE 12.5 mL/hr at 07/07/23 2103 2.5 mg/hr at 07/07/23 2103 ondansetron (ZOFRAN (PF)) injection 4 mg 4 mg Slow IV Push Q6HPRN oxyCODONE immediate release tablet 5 mg 5 mg Oral Q4HPRN [START ON 07/08/2023] pantoprazole (PROTONIX) injection 40 mg 40 mg Slow IV Push Q12H thrombin topical solution PRN 5,000 Units at 07/07/23 1010 vancomycin (VANCOCIN) 1 g in sodium chloride 0.9 % irrigation PRN 1 g at 07/07/23 1934 Facility-Administered Medications Ordered in Other Encounters Medication Dose Route Frequency Last Rate Last Admin albumin (ALBUTEIN 5 %) 5 % injection IV Infusion CONTINUOUS PRN Stopped at 07/07/232005 ceFAZolin (ANCEF) injection Intravenous ONCE INTRA PROCEDURE 2 g at 07/07/23 1931 dexamethasone (DECADRON PHOSPHATE) injection IV Push ONCE INTRA PROCEDURE 8 mg at 07/07/23 0806 esmoloL (BREVIBLOC) injection Slow IV Push ONCE INTRA PROCEDURE 20 mg at 07/07/23 1255 FENTanyl PF (SUBLIMAZE (PF)) injection Slow IV Push ONCE INTRA PROCEDURE 100 mcg at 07/07/23 0746 HYDROmorphOne (DILAUDID) injection Slow IV Push ONCE INTRA PROCEDURE 0.2 mg at 07/07/23 1851 lactated ringers IV infusion IV Infusion CONTINUOUS PRN New Bag at 07/07/23 1604 lactated ringers IV infusion IV Infusion CONTINUOUS PRN 50 mL/hr at 07/07/23 0800 New Bag at 07/07/23 0800 lidocaine 1% (XYLOCAINE) 100 mg/10 mL (1 %) injection Slow IV Push ONCE INTRA PROCEDURE 2 mL at 07/07/23 0747 mannitol (OSMITROL 20%/H2O) 20 % infusion IV Infusion ONCE INTRA PROCEDURE 30.6 g at 07/07/23 1825 midazolam (VERSED) injection IV Push ONCE INTRA PROCEDURE 2 mg at 07/07/23 0727 NaCl 0.9% (NS) IV infusion IV Infusion CONTINUOUS PRN New Bag at 07/07/23 0854 ondansetron (ZOFRAN (PF)) injection Slow IV Push ONCE INTRA PROCEDURE 4 mg at 07/07/23 1928 PHENYLephrine 1000 mcg/10 mL in 0.9% NaCl syringe Slow IV Push CONTINUOUS PRN 0 mL/hr at 07/07/23 1550 100 mcg at 07/07/23 1959 propofoL IV infusion Slow IV Push ONCE INTRA PROCEDURE 50 mg at 07/07/23 1837 propofoL IV infusion IV Infusion CONTINUOUS PRN Stopped at 07/07/23 1946 remifentaniL (ULTIVA) injection Slow IV Push CONTINUOUS PRN Stopped at 07/07/232007 rocuronium (ZEMURON) injection IV Push ONCE INTRA PROCEDURE 30 mg at 07/07/23 1956 succinylcholine (QUELICIN) injection IV Push ONCE INTRA PROCEDURE 100 mg at 07/07/23 0748 sugammadex (BRIDION) injection IV Push ONCE INTRA PROCEDURE 200 mg at 07/07/23 2030 REVIEW OF DATA LABS - reviewed pertinent labs as below: Recent Results (from the past 24 hour(s)) POCT TEST Collection Time: 07/07/23 6:00 AM Result Value Ref Range POCT PREG Negative On board controls acceptable with C Line Yes POCT PREG LOT # POCT PREG TEST DATE Activated Partial Thrmplas Mariangel Collection Time: 07/07/23 6:23 AM Result Value Ref Range APTT Patient 28 26 - 36 Seconds Basic Metabolic Panel (NA, K, CL, CO2, GLUCOSE, BUN, CREATININE, CA) Collection Time: 07/07/23 6:23 AM Result Value Ref Range NA 138 135 - 145 mmol/L K 3.7 3.5 - 5.0 mmol/L CL 108 98 - 108 mmol/L CO2 TOTAL 27 23 - 31 mmol/L AGAP 3 2 - 16 BUN 12 7 - 23 mg/dL GLUCOSE 101 70 - 110 mg/dL CREATININE 0.48 (L) 0.50 - 1.04 mg/dL CALCIUM 9.1 8.6 - 10.6 mg/dL eGFR 135.0 mL/min/1.73m2 Cbc with Diff Collection Time: 07/07/23 6:23 AM Result Value Ref Range WBC 7.64 4.30 - 11.10 10*3/?L RBC 4.02 3.93 - 5.25 10*6/?L HGB 12.1 11.6 - 15.0 g/dL HCT 35.7 35.7 - 45.2 % MCV 88.8 80.6 - 95.5 fL MCH 30.1 25.9 - 32.8 pg MCHC 33.9 31.6 - 35.1 g/dL RDW-SD 44.4 39.0 - 49.9 fL RDW-CV 13.6 12.0 - 15.5 % PLT 364 (H) 166 - 358 10*3/?L MPV 8.7 (L) 9.5 - 12.9 fL NRBC/100 WBC 0.0 0.0 - 10.0 /100 WBCs NRBC x10 3 <0.01 10*3/?L GRAN MAT (NEUT) % 73.5 % IMM GRAN % 0.40 % LYMPH % 19.4 % MONO % 5.4 % EOS % 0.9 % BASO % 0.4 % GRAN MAT x10 3 (ANC) 5.62 1.88 - 7.09 10*3/uL IMM GRAN x10 3 0.03 0.00 - 0.06 10*3/uL LYMPH x10 3 1.48 1.32 - 3.29 10*3/uL MONO x10 3 0.41 0.33 - 0.92 10*3/uL EOS x10 3 0.07 0.03 - 0.39 10*3/uL BASO x10 3 0.03 0.01 - 0.07 10*3/uL Prothrombin Time / INR Collection Time: 07/07/23 6:23 AM Result Value Ref Range PROTIME PATIENT 11.2 10.1 - 12.6 Seconds INR 1.0 Type and Screen - ONCE Routine Collection Time: 07/07/23 6:23 AM Result Value Ref Range ABO & RH A Positive IAT Negative Prepare Packed RBC (in units), 1 Units Collection Time: 07/07/23 8:11 AM Result Value Ref Range Cross Match Result Compatible ISBT Blood Type Code 6200 Unit Blood Type A Pos Unit Number [id number] Blood Expiration Date & Time [id number] Status Information Ready Product Identification Red Blood Cells Product Code [id number] Istat Acute Care Arterial Collection Time: 07/07/23 9:22 AM Result Value Ref Range PH 7.46 (H) 7.35 - 7.45 PCO2 31 (L) 35 - 45 mmHg PO2 448 (H) 80 - 100 mmHg BE -2.0 -3.0 - 3.0 mEq/L HCO3 22 22 - 26 mEq/L %O2HB 100.0 (H) 95.0 - 98.0 % NA 141 135 - 145 mmol/L K+ 3.5 3.5 - 5.0 mmol/L AC CA IONZ 4.90 4.50 - 5.30 mg/dL GLUCOSE 104 70 - 110 mg/dL AC Hematocrit 31 (L) 40 - 54 VOL % THB 10.5 (L) 12.0 - 16.0 g/dL AC TC02 23 23-27 mmol/L mmol/L Surgical Pathology Exam Collection Time: 07/07/23 12:18 PM Result Value Ref Range Case Report Surgical Pathology Case: [id number] Authorizing Provider: Roque Watts MD Collected: 07/07/2023 1218 Ordering Location: [facility] Surgical Received: 07/07/2023 [facility] Pathologist: Cindy Melgar MD Intraop: Cindy Melgar MD Specimen: BRAIN, RIGHT BRAIN TUMOR Intraoperative Consultation SPECIMEN A A. BRAIN, RIGHT CEREBELLOPONTINE ANGLE TUMOR, BIOPSY: - SPINDLE CELL NEOPLASM, FAVOR MENINGIOMA (INTRAOPERATIVE SMEARS). Results communicated to Dr. Watts on 07/07/2023 at 12:40 PM. Patient identification confirmed. Cindy Melgar MD [facility]07[facility] Arterial Collection Time: 07/07/23 12:38 PM Result Value Ref Range PH 7.40 7.35 - 7.45 PCO2 33 (L) 35 - 45 mmHg PO2 340 (H) 80 - 100 mmHg BE -4.0 (L) -3.0 - 3.0 mEq/L HCO3 21 (L) 22 - 26 mEq/L %O2HB 100.0 (H) 95.0 - 98.0 % NA 139 135 - 145 mmol/L K+ 3.8 3.5 - 5.0 mmol/L AC CA IONZ 5.00 4.50 - 5.30 mg/dL GLUCOSE 117 (H) 70 - 110 mg/dL AC Hematocrit 30 (L) 40 - 54 VOL % THB 10.2 (L) 12.0 - 16.0 g/dL AC TC02 22 (L) 23-27 mmol/L mmol/L Ist Acute Care Arterial Collection Time: 07/07/23 2:15 PM Result Value Ref Range PH 7.42 7.35 - 7.45 PCO2 32 (L) 35 - 45 mmHg PO2 320 (H) 80 - 100 mmHg BE -4.0 (L) -3.0 - 3.0 mEq/L HCO3 20 (L) 22 - 26 mEq/L %O2HB 100.0 (H) 95.0 - 98.0 % NA 139 135 - 145 mmol/L K+ 3.7 3.5 - 5.0 mmol/L AC CA IONZ 4.90 4.50 - 5.30 mg/dL GLUCOSE 115 (H) 70 - 110 mg/dL AC Hematocrit 27 (L) 40 - 54 VOL % THB 9.2 (L) 12.0 - 16.0 g/dL AC TC02 21 (L) 23-27 mmol/L mmol/L Cbc with Diff Collection Time: 07/07/23 9:02 PM Result Value Ref Range WBC 17.16 (H) 4.30 - 11.10 10*3/?L RBC 3.23 (L) 3.93 - 5.25 10*6/?L HGB 10.0 (L) 11.6 - 15.0 g/dL HCT 28.8 (L) 35.7 - 45.2 % MCV 89.2 80.6 - 95.5 fL MCH 31.0 25.9 - 32.8 pg MCHC 34.7 31.6 - 35.1 g/dL RDW-SD 44.6 39.0 - 49.9 fL RDW-CV 13.5 12.0 - 15.5 % PLT 402 (H) 166 - 358 10*3/?L MPV 8.7 (L) 9.5 - 12.9 fL NRBC/100 WBC 0.0 0.0 - 10.0 /100 WBCs NRBC x10 3 <0.01 10*3/?L GRAN MAT (NEUT) % 77.0 % IMM GRAN % 0.50 % LYMPH % 16.8 % MONO % 5.4 % EOS % 0.1 % BASO % 0.2 % GRAN MAT x10 3 (ANC) 13.23 (H) 1.88 - 7.09 10*3/uL IMM GRAN x10 3 0.08 (H) 0.00 - 0.06 10*3/uL LYMPH x10 3 2.88 1.32 - 3.29 10*3/uL MONO x10 3 0.93 (H) 0.33 - 0.92 10*3/uL EOS x10 3 <0.03 (L) 0.03 - 0.39 10*3/uL BASO x10 3 0.03 0.01 - 0.07 10*3/uL AC Panel 20 + Lactic Acid Collection Time: 07/07/23 9:04 PM Result Value Ref Range PH 7.31 (L) 7.35 - 7.45 PCO2 34 (L) 35 - 45 mmHg PO2 124 (H) 80 - 100 mmHg HCO3 17 (L) 22 - 26 mEq/L BE -8.5 (L) -3.0 - 3.0 mEq/L THB 10.8 (L) 12.0 - 16.0 g/dL %O2HB 97.7 94.0 - 99.0 % %COHB ART 0.2 0.0 - 1.5 % %METHB ART 0.4 0.4 - 1.5 % VOL%O2 ART 15.1 15.0 - 23.0 % NA 139 135 - 145 mmol/L K+ 3.6 3.5 - 5.0 mmol/L AC CA IONZ 4.50 4.50 - 5.30 mg/dL GLUCOSE 143 (H) 70 - 110 mg/dL LACTIC ACID 4.40 (H) 0.50 - 2.20 mmol/L IMAGING - reviewed, pertinent results as below: RADIOLOGY No final results containing an impression from the past 30 days were found. 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 IV Tylenol for pain control Keppra loaded. Will consider AED medications if there is concern for seizure-like activity Aspiration precautions Plan for MRI brain with and without contrast tonight Decadron 8 mg every 12 hours per neurosurgery Hemodynamically stable at this time. Continue cardiac monitoring. Maintain systolic blood pressure less than 140. Use Cardene drip as needed Patient noted to have significant vomiting postoperatively DuoNebs every 6 hours. Aggressive pulmonary hygiene. Patient is already receiving steroids and antibiotics. Monitor renal function, urine output and electrolytes LR x 1 L overnight to maintain volume status Perioperative antibiotics with cefazolin. If needed, we can escalate to Unasyn N.p.o. overnight. Will plan for speech evaluation in the a.m. Maintain euglycemia Plan for PT/OT in the morning DVT prophylaxis: SCDs. Hold off on anticoagulation per neurology PPI prophylaxis: Protonix twice daily Family Updated: No family available at bedside. Dispo: ICU Prognosis: Guarded Due to a high probability of clinically significant, life threatening deterioration, the patient required my highest level of preparedness to intervene emergently and I personally spent 55 minutes of critical care time directly and personally managing the patient. This critical care time included obtaining a history; examining the patient; pulse oximetry; ordering and review of studies; arranging urgent treatment with development of a management plan; evaluation of patient's response to treatment; frequent reassessment; and, discussions with other providers.This critical care time was performed to assess and manage the high probability of imminent, life-threatening deterioration that could result in multi-organ failure. It was exclusive of separately billable procedures and treating other patients and teaching time. Roxy Tejeda MD PhD Pulmonary & Critical Care Medicine [facility] 2023-07-07 06:31:18 NEUROSURGERY HISTORY AND PHYSICAL Attending Neurosurgeon: Stefanie CC: R petroclival lesion HPI: Dany James is a 23 year old female who is followed for 3cm R petroclival lesion w/ sx of positional diplopia and facial numbness as well as fatigue/forgetfulness. No blood thinners/anticoags. No gross changes to endorsed sx; progressive worsening of vision sx, facial numbness R side, and R hearing. No recent lice issues; did treatment prophylactically. Work-related injury to R leg, no fractures, just bruising. ROS (BOLDED IF POSITIVE - otherwise negative) Constitutional: Nausea, Vomiting, Fevers, Chills Eyes: Negative Ears, nose, mouth, and throat: Negative Endocrine: Negative Hematologic: Negative Card: Chest pain, Palpitations Pulm: Cough, Shortness of breath GI: Diarrhea, Constipation, : Negative Integ: Masses, Rashes, Lesions Msk: Weakness, Pain Neuro: Headache, Vision changes, Dizziness, Weakness Medications (Current) No current facility-administered medications on file prior to encounter. Current Outpatient Medications on File Prior to Encounter Medication Sig Dispense Refill Ibuprofen 200 mg capsule Take by mouth. proMETHazine 12.5 mg tablet Take 1 tablet by mouth every 4 (four) hours as needed for Nausea and Vomiting (N/V) or N/V unresponsive to Ondansetron. 15 tablet 0 kbpqtgsdul-ebwkooncjcniv-vfzh 50-325-40 mg tablet Take 1 tablet by mouth every 4 (four) hours as needed for Pain (scale 4-6) or Pain (scale 7-10). 20 tablet 0 methylPREDNISolone 4 mg tablets Take by mouth SEE-INSTRUCTIONS. follow package directions 21 Each 0 ondansetron 4 mg disintegrating tablet Take 1 tablet by mouth every 8 (eight) hours as needed for Nausea and Vomiting (N/V). 12 tablet 0 ferrous sulfate 325 mg (65 mg iron) tablet Take 1 tablet by mouth in the morning and 1 tablet in the evening. 60 tablet 2 vitamin w/FA tablet Take 1 tablet by mouth in the morning. 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 Panic attacks Right upper quadrant abdominal pain 07/19/2020 Status post laparoscopic cholecystectomy 07/27/2020 STD (sexually transmitted disease) trich x 2 2019 Past Surgical History: Past Surgical History: Procedure Laterality Date CHOLECYSTECTOMY 07/2020 INITIATE POST OP CHOLECYSTECTOMY CRITICAL PATHWAY IF NOT ALREADY DONE SO Social History: Social History Tobacco Use Smoking status: Never Passive exposure: Never Smokeless tobacco: Never Vaping Use Vaping Use: Never used Substance Use Topics Alcohol use: Not Currently Drug use: Never PE Vitals: Vitals: 07/03/23 0934 Weight: 59.9 kg (132 lb) Height: 1.626 m (5' 4") Exam: Awake, alert, oriented x 3 PERRL bilaterally at 3mm EOMI bilaterally Face symmetric; no gross motor deficits to confrontation testing Tongue midline Endorsed decreased sensation R V1 and V2 distribution; no motor deficits CN V Endorsed decreased hearing R side Uvula midline CN XI intact b/l 5/5 BUE/BLE No drift Assessment: Dany James is a 23 year old female who is followed for 3cm R petroclival lesion w/ sx of positional diplopia, facial numbness, and hearing loss R side as well as fatigue/forgetfulness. Plan: R craniotomy tumor resection; possible right/left EVD; possible lumbar drain; possible abdominal fat graft Lopez Ballesteros MD Neurosurgery For inquiries please page [phone] Associated attestation - Roque Watts MD - 07/07/2023 7:28 AM CDT Neurosurgery Faculty Addendum: I personally evaluated and examined the patient and agree with the note by Lopez Ballesteros with no changes. Roque Watts MD [facility] Neurosurgery [facility] - [facility] 2022-11-08 19:09:22 Formatting of this n ote is different from the original. TRIAGE/L&D HISTORY & PHYSICAL IDENTIFYING DATA Dany James is 22 year old, /White, 37w6d, female with CARLEE 11/23/2022, by Ultrasound. : 2000 Primary Care Physician: Arturo Bowen CHIEF COMPLAINT IOL HISTORY OF PRESENT ILLNESS Dany James is a 22 year old at 37w6d who presents for induction of labor. Patient developed itchiness of both hands three days ago on 11/05. Bile acids were 36 and patient was scheduled for induction of labor due to intrahepatic cholestasis of . Patient reports contractions started this AM (11/08), however they are irregular. Patient denies vaginal bleeding, denies leakage of fluid. Patient endorses headache, denies nausea/vomiting, denies RUQ pain, denies visual abnormalities. Endorses normal movement. PAST OBSTETRIC HISTORY OB History Para Term AB Living 3 2 1 1 0 2 SAB IAB Ectopic Multiple Live Births 0 0 0 0 2 # Outcome Date GA Lbr Cade/2nd Weight Sex Delivery Anes PTL Lv 3 Current 2 06/23/19 36w2d 3300 g M NORMAL SPONT EPI N KATHLEEN 1 Term 06/09/18 38w0d 3289 g M NORMAL SPONT KATHLEEN PAST MEDICAL HISTORY Problem list: Patient Active Problem List Diagnosis Date [...] STD (sexually transmitted disease) trich x 2 2020 CURRENT HEALTH STATUS Medications: Current Facility-Administered Medications Medication Dose Route Frequency [...] and drug reactions: Patient has no known allergies. HOME MEDICATIONS Medications Prior to Admission Medication Sig Dispense Refill [...] VITAMIN ORAL) Take by mouth. Taking SOCIAL HISTORY Tobacco History: Social History Tobacco Use Smoking Status Never Passive exposure: Never Smokeless Tobacco Never Drug History: Social History Substance and Sexual Activity Drug Use Never Alcohol History: Social History Substance and Sexual Activity Alcohol Use Not Currently FAMILY HISTORY Family History Problem Relation Age of Onset Arthritis Mother No Significant Medical Problems Father Cancer Sister Thyroid Diabetes Maternal Aunt Heart Paternal Uncle Cancer Paternal Grandmother Asthma NoFHx defects NoFHx Genetic NoFHx Breast Cancer NoFHx Colon Cancer NoFHx Ovarian Cancer NoFHx Uterine Cancer NoFHx Depression NoFHx Psychiatry NoFHx Hypertension NoFHx High cholesterol NoFHx Mental retardation NoFHx Neurological NoFHx Osteoporosis NoFHx REVIEW OF SYSTEMS General: negative Skin: (+) itchiness on hands HEENT: + headache Neck: negative HEME: negative Resp: negative Cardio: negative GI: (+) abdominal pain : negative Endo: negative Neuro: negative Back: negative ANTONELLA: negative Psych: negative VITAL SIGNS BP: (107-117)/(58-75) Temp: [36.9 ?C (98.5 ?F)-37.1 ?C (98.7 ?F)] Temp source: Oral (11/08 2100) Pulse: [87-114] Resp: [16-20] SpO2: [90 %-100 %] Height: [162.6 cm (5' 4")] Weight: [83 kg (183 lb)] BMI (calculated): [31.41] PHYSICAL EXAMINATIONS General: patient alert and in no acute distress HEENT: symmetric, negative for masses Lungs: unlabored breathing Cardiology: peripheral pulses intact and regular Abdomen: soft, non-tender, non-distended, no liver, spleen or abnormal masses palpated and Gravid Extremities: no clubbing, cyanosis, or edema Neuro: patient moving all extremities, no facial droop : SVE REVIEW OF LABORATORY, PATHOLOGY, AND RADIOLOGY DATA Lab results: Type & Screen Lab Results Component Value Date/Time IABORH A POSITIVE 11/08/2022 07:56 PM IAT Negative 11/08/2022 07:56 PM Serologies Lab Results Component Value Date/Time VZVIGG Positive 04/11/2022 09:05 AM RUBG Positive 04/11/2022 09:05 AM SYPIGG Non-reactive 09/24/2022 09:43 AM HBSAG Negative 11/08/2022 07:56 PM HBSAG 0.10 11/08/2022 07:56 PM Chlamydia Lab Results Component Value Date/Time VCAA Negative 10/11/2022 04:03 PM Group B Strep Lab Results Component Value Date/Time CGB Positive (A) 10/22/2022 10:44 AM GTT Lab Results Component Value Date/Time [id number] 77 (L) 08/28/2022 09:14 AM CBC Lab Results Component Value Date/Time HGB 9.7 (L) [...] lobe Brain tumor 37 weeks gestation of Placenta Accreta Screening Prior ? : No Prior Uterine Surgery?: No Placenta low lying/previa in current ? : No Ultrasound suspicion of PASD in current ?: No Screening outcome: A positive screening outcome indicates a history of prior delivery or prior uterine surgery, AND the presence of either a placenta low lying/previa or ultrasound suspicion of PASD in the current . Negative screening. ASSESSMENT AND PLAN Dany James is a 22 year old at 37w6d by u(8) who presents for induction of labor. 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 after episode of severe headache, R unilateral ear and eye pain - Was scheduled for craniotomy resection in August 2021 but aborted due to head lice - Followed by Neuro, Rheumatology and MFM - As of 2021, mass effect and hematoma have decreased with progression of "plaque-like enhancement" suggestive of sarcoidosis or other inflammatory disorder - Pt endorses headache on admission, unchanged from baseline, does not desire medication - Plan: Continue to f/u with neurosurgery after delivery, per note, planning to repeat MRI in 2-3 months Anxiety/Depression - Pt reports h/o anxiety and depression > 2 yrs ago - Denies recent symptoms - Reports stable mood, denies SI/HI on admission - Reassess Antepartum course reviewed - 1 h 113, sero negative, Rimmune, VZVimmune, HPV immune, A positive/IAT negative, GBS positive, Pap NILM 01/2020 - H/H, plt: 9.2 / 30.3, 271 on 10/22/2022 - PP control plan: undecided - [facility] Fetus - Presentation on admission: cephalic - Anterior placenta - EFW: 3190 g, 48%tile - FHT reactive and reassuring - Normal anatomy scan D/w Dr. Hoda Hewitt MD Associated attestation - Jcarlos Birch MD - 11/09/2022 3:46 AM CDT Attending Attestation: I was faculty at the time of service provided. Agree with documentation of assessment and plan as noted above. Jcarlos Birch MD Maternal- Medicine/OBGYN PGY-6 11/09/22 3:[address] [facility] - [facility] Procedure Notes Date/Time Note Provider Source 2024-08-24 08:32:06 Procedure(s): LAPAROSCOPIC SALPINGECTOMY Pre-Procedure Diagnose(s): Admission for tubal ligation Post-Procedure Diagnose(s): Admission for tubal ligation; Status post bilateral salpingectomy LAPAROSCOPIC SALPINGECTOMY Date of Service: 08/24/2024 Faculty Surgeon: Hawa Leos Anesthesia Type: General IV Fluids: 500 cc Lactated Ringers Colloid Fluids: None Specimens Sent to Pathology: bilateral fallopian tubes Urine Output: 200 cc of clear urine Complications: none Estimated Blood Loss: < 10 mL Patient Status: Patient in stable condition and taken to recovery room Narrative: Dany James is a 24 year old female desires permanent sterilization with laparoscopic bilateral salpingectomy. Description of Findings: Normal liver edge, normal uterus, fallopian tubes and ovaries. The trocar sites were inspected and no injury or bleeding identified. Summary of Procedure: After informed written consent was given by patient to proceed with above procedure for above indications, the patient was taken to the operating room and general endotracheal anesthesia induced. Patient was placed in dorsal lithotomy position, and prepped and draped. Hernandes catheter placed. Sponge stick placed in the vagina. A half inch incision was made in the umbilicus. The 5 mm laparoscopic trocar and laparoscopic camera were then introduced under direct visualization confirming placement in the peritoneal cavity and CO2 was then allowed to insufflate the peritoneal cavity with attention to adequate pressures. Under direct laparoscopic guidance, 2 skin incisions were made in the left quadrant and 8 mm and 5 mm laparoscopic trocars introduced. The inspection of the pelvis then ensued with findings as above. Each fallopian tube was grasped and removed with ligasure. Hemostasis noted. CO2 was allowed to egress through the trocars until abdominal pressure at 5 mmHg and hemostasis noted. 30 cc of 0.25% Marcaine placed intraperitoneally. Trocars were then removed under laparoscopic guidance. The skin incision sites were closed with 4-0 monycryl suture and dermabond and covered with dressing. All instruments removed. Patient's sponge and needle counts were correct times 2. Patient tolerated the procedure well and was awakened and taken to the PAC-U in stable condition. Hawa Leos MD 08/24/2024 8:32 AM [facility] 2024-07-12 20:43:45 Associated Order(s): Central Neuraxial Block Central Neuraxial Block Date/Time: 07/12/2024 8:43 PM Performed by: Yumiko Vazquez MD Authorized by: Tawanda Hartmann MD Patient Location: OB Reason for Block: Labor analgesia, OB request, Patient request, Surgical anesthesia and Post-op pain management Staff: Anesthesiologist: Tawanda Hartmann MD Resident/PERCUSSION INSTRUMENT TUNER: Yumiko Vazquez MD Performed by: resident/PERCUSSION INSTRUMENT TUNER Preanesthetic Checklist: patient identified, IV checked, risks and benefits explained, monitors and equipment checked, timeout performed, pre-op evaluation, surgical consent, site marked, ob/surgical consent approval, ob/surgical consent verified and anesthesia consent Procedure: Type of Neuraxial: Epidural Epidural Description: 1st attempt Sterility Prep cap, drape, gloves, hand hygiene and mask Sedation Level no sedation Patient Position: sitting Prep: Betadine Monitoring: director cardiac / EKG, heart rate / toco, heart rate, NIBP and continuous pulse ox Location: lumbar (1-5) Lumbar: L3-L4 Approach: midline Technique: single shot Guidance with: landmark technique} Epidural/Spinal Luke and/or Catheter: Epidural/Spinal Kit: Matt Needle Type: Tuohy Needle Gauge: 17 G Needle Length: 3.5 in (8.89 cm) Needle Insertion Depth: 4 Catheter Type: multiport Catheter Size: 19 G Catheter at Skin Depth: 9 Number of Attempts: 1 Test Dose: lidocaine 1.5% with epinephrine 1-to-200,000 and negative Dose: 3 cc Catheter Securement Method: clear occlusive dressing, surgical tape and liquid medical adhesive Assessment: Block Outcome: a full evaluation is pending, no apparent complications and patient tolerated procedure well Procedure Assessment: patient tolerated procedure well with no complications Notes: Attempt by resident x 1. Patient identified. Time out done. Prep x3 and drape in sterile fashion. Infiltrated skin with 1% lidocaine. Needle insertion depth at 4 cm, catheter depth at skin 9 cm. Catheter aspiration negative x3, test dose negative, sterile dressing applied. No apparent complications. Patient instructed on fall precautions. Pump Settings: 12 mL/hr Bolus: 4 mL Lockout: 15 min Yumiko Vazquez MD, PGY-4 Dept. Anesthesiology 07/12/2024 8:[address] [facility] 2024-07-12 11:31:00 Dany James is a 24 year old female 37w0d Hernandes insertion: Insertion date and time: 07/12/24 @1130 Hernandes catheter inserted through cervix in sterile fashion inflated with 60 cc sterile saline. Hernandes bulb firmly in place inside internal os. Catheter taped to patient leg under traction. Patient tolerated procedure well. Please use the table below for: SVE 06/01/Ballotable. CERVIX: Consistency : soft; Position: posterior, Station: Ballotable. Score 0 1 2 3 Dilation (cm) 0 cm 1-2 cm 3-4 cm >5 cm Effacement 0 - 30 % 40 - 50 % 60 - 70 % > 80 % Consistency of the cervix Stiff Moderately soft Very soft Position of the cervix Posterior Median Anterior Station -3 -2 -1 to 0 +1, +2 Maribel Murillo MD 11:32 AM [facility] 2023-07-07 09:03:40 Associated Order(s): Intubation Intubation Date/Time: 07/07/2023 7:50 AM Urgency: elective Airway not difficult General Information and Staff Patient location during procedure: OR Performed: resident/PERCUSSION INSTRUMENT TUNER Performed by: Mani Reynolds DO Authorized by: Mario Busch DO Indications and Patient Condition Indications for airway management: anesthesia Spontaneous ventilation: present Sedation level: deep Preoxygenated: yes Patient position: sniffing MILS maintained throughout Mask difficulty assessment: 0 - not attempted Final Airway Details Final airway type: endotracheal airway Successful airway: ETT and reinforced tube Cuffed: yes Successful intubation technique: video laryngoscopy Facilitating devices/methods: intubating stylet Endotracheal tube insertion site: oral Blade: Jere Blade size: #3 ETT size (mm): 7.0 Cormack-Lehane Classification: grade I - full view of glottis Placement verified by: chest auscultation and capnometry Measured from: lips ETT to lips (cm): 21 Number of attempts at approach: 1 Ventilation between attempts: none Number of other approaches attempted: 0 Additional Comments Glottic opening visualized atraumatically. Lips, teeth, tongue, and gums remain in same condition as prior to intubation. Smooth, atraumatic, dentition and lips unchanged from pre-op. AN-ANESTHESIOLOGY [facility] 2023-07-07 09:00:33 Associated Order(s): Arterial Line Arterial Line Date/Time: 07/07/2023 9:00 AM Performed by: Mani Reynolds DO Arterial Line Placement: Ultrasound-Guided: ultrasound guided Patient Location: OR Indication: continuous blood pressure monitoring and blood sampling needed Staff: Supervising Anesthesiologist: Mario Busch DO Resident: Mani Reynolds DO Procedure Detail: Catheter Size: 20 gauge Catheter Length: 1 and 3/4 inch Catheter Type: Arrow Seldinger Technique?: Yes Laterality: Right Site: Radial artery Line Secured: Tape, Tegaderm and biopatch Preparation: Chloroprep, sterile gloves, guidewire removed intact, biopatch applied and drape Events: Events: Patient tolerated procedure well with no complications and all wires accounted for Comments: (+) Local infiltration with Lidocaine, STF, smooth and atraumatic. [facility] 2022-11-09 01:51:01 Associated Order(s): Central Neuraxial Block Central Neuraxial Block Date/Time: 11/09/2022 1:25 AM Performed by: James Veloz MD Authorized by: Jcarlos Birch MD Patient Location: OB Reason for Block: Labor analgesia Staff: Anesthesiologist: Mayra Mayes MD Resident/PERCUSSION INSTRUMENT TUNER: James Veloz MD Performed by: resident/PERCUSSION INSTRUMENT TUNER Preanesthetic Checklist: anesthesia consent, monitors and equipment checked, ob/surgical consent approval, ob/surgical consent verified, patient identified, pre-op evaluation and timeout performed Procedure: Type of Neuraxial: Epidural Epidural Description: 1st attempt Sterility Prep cap, drape, gloves, hand hygiene and mask Sedation Level no sedation Patient Position: sitting Prep: Betadine and patient draped Monitoring: director cardiac / EKG, heart rate / toco, heart rate and NIBP Location: lumbar (1-5) Lumbar: L4-L5 and L3-L4 Approach: midline Technique: CAROL ANN saline Guidance with: landmark technique} Epidural/Spinal Luke and/or Catheter: Epidural/Spinal Kit: BBraun Needle Type: Tuohy Needle Gauge: 17 G Needle Length: 3.5 in (8.89 cm) Needle Insertion Depth: 6 Catheter Type: side hole Catheter Size: 19 G Catheter at Skin Depth: 12 Number of Attempts: 1 Test Dose: lidocaine 1.5% with epinephrine 1-to-200,000 Dose: 5 cc Catheter Securement Method: surgical tape, Tegaderm and clear occlusive dressing Assessment: Sensory Level: above T10 Thoracic: T8 Block Outcome: no apparent complications, positive pain relief, patient tolerated procedure well, patient satisfied, pain improved and a full evaluation is pending Procedure Assessment: patient tolerated procedure well with no complications AN-ANESTHESIOLOGY [facility] 2022-11-08 22:57:37 Procedure(s): HERNANDES BULB PLACEMENT. OBTAIN SUPPLIES AND NOTIFY SOAP DRIER TENDER WHEN READY Dany James is a 22 year old female 37w6d Hernandes insertion: Insertion date and time: 11/08/2022 at 2015 Hernandes catheter inserted through cervix in a sterile fashion and inflated with 60 cc sterile saline. Hernandes bulb firmly in place inside internal os. Catheter taped to patient leg under traction. Patient tolerated procedure well. Please use the table below for: SVE 05/01/ CERVIX: Consistency: moderately soft; Position: median, Station: -2 Score 0 1 2 3 Dilation (cm) 0 cm 1-2 cm 3-4 cm >5 cm Effacement 0 - 30 % 40 - 50 % 60 - 70 % > 80 % Consistency of the cervix Stiff Moderately soft Very soft Position of the cervix Posterior Median Anterior Station -3 -2 -1 to 0 +1, +2 Edilia Hewitt MD Associated attestation - Jcarlos Birch MD - 11/09/2022 3:43 AM CDT Attestation: Agree with documentation of hernandes bulb placement as above. Jcarlos Birch MD Maternal- Medicine/OBGYN PGY-6 11/09/22 3:[address] [facility] - Health Notes Date/Time Note Provider Source 2024-10-06 15:02:49 Images from the original note were not included. Routed to provider for review. Unable to refill per ambulatory refill guidelines. Notes: Requested Renewals Name from pharmacy: ALBUTEROL HFA INH (200 PUFFS) 8.5GM Will file in chart as: albuterol sulfate HFA 90 mcg/actuation aerosol inhaler Sig: INHALE 2 PUFFS BY MOUTH EVERY 6 HOURS NEEDED FOR WHEEZING OR SHORTNESS OF BREATH Disp: 8.5 g Refills: 0 (Pharmacy requested: Not specified) Start: 10/06/2024 Class: eRX For: Mild intermittent reactive airway disease Last ordered: 3 weeks ago (09/09/2024) by Brandon Espinoza MD Last refill: 09/09/2024 Rx #: [id number] Pulmonology & Allergy: Beta Agonists and Anti-muscarinics Suetto1710/06/2024 03:51 AM Protocol Details Manual Review: If patient not on inhaled steroid and using bronchodilator more than twice weekly for more than 4 weeks or is having a night cough patient should be seen immediately. Manual Review: Staff refilling for allergy - 1 month supply only unless insurance requires a 3 month supply, then 3 month supply approved. Valid encounter within last 12 months To be filled at: [id number] - [place], [place] - [address] AT [facility] Last Refilled: 09/09/2024 Recent Visits Date Type Provider Dept 09/09/24 Office Visit Brandon Espinoza MD [facility] 09/09/23 Office Visit Brandon Espinoza MD [facility] 05/19/23 Office Visit Dulce Maria Maddox FNP [facility] Showing recent visits within past 540 days with a meds authorizing provider and meeting all other requirements Future Appointments Date Type Provider Dept 12/22/24 Appointment Brandon Espinoza MD [facility] Showing future appointments within next 150 days with a meds authorizing provider and meeting all other requirements Rae Malone RN [facility] 2024-10-04 08:50:26 Called and reviewed MRI Brain results with patient. All questions and concerns were addressed. Patient will follow up with Dr. Watts tomorrow. Iesha Santoyo, SCOTTY, PROJECT CREW WORKER, COLD FOOD PACKER-C, AOCNP, TTS Advanced Practice Provider Radiation Oncology [facility] ANTI AIR WARFARE OPERATIONS OFFICER-NURSE PRACTITIONER MIDLEVEL PROVIDER [facility] 2024-09-09 13:58:14 Email has been sent to the scheduling team. Sherie Batista RN [facility] 2024-09-09 09:45:00 KUB reviewed and noted Gaseous distention of multiple bowel loops in nonobstructive pattern. Mild stool burden throughout the colon. Rectal gas is present. Multiple phleboliths are noted in the pelvis. Maintain good hydration, 64 ounces daily. Continue lifestyle and diet modification: lean meat, low fat, vegetables, nuts, low carb, increased fruits and fiber in diet. Exercise as tolerated. Avoid processed meals. [facility] 2024-09-06 10:03:55 Please advise and close encounter Kasia Suarez [facility] 2024-09-01 09:34:59 Dany James is a 24 year old female Patient is calling to reschedule her appt Please advise [phone] (home) [phone] (work) [id number] [address] [facility] [address] [facility] 2024-08-23 15:15:00 Images from the original note were not included. Venipuncture collection performed by clean technique on the left anticubitus. Total of 2 attempts were made. Slight pressure and a bandage/dressing were applied to the site(s). The patient experienced no complications. The following specimens were processed according to instructions and sent to [facility] laboratories per lab order on 08/23/2024 : LT BLUE SST 1 RED LAV 3 PPT DK GREEN (LiHep) DK GREEN (SodH) MARTIN DK BLUE (K2) DK BLUE (S) ACD Blood Culture NIPT/NTD [facility] 2024-08-16 15:18:15 Images from the original note were not included. Your procedure is at [facility] on 08/24/24. The address is [address] [place] [address], [id number]. [facility] nursing staff will call you the workday prior to surgery/procedure between 12-3 pm with your arrival time. When you arrive, please come inside and sign in at the desk. Please note: You may not travel home alone and that includes in a taxi or by bus. We must speak to your Responsible Adult (who will be picking you up) the morning of your procedure, before the start of your procedure. This person must be an adult over the age of 18 years of age. Do not eat any solid food after midnight the night before surgery. May have 8-16 oz of water/clear liquids each hour after midnight, as desired, until two hours prior to arrival to promote hydration. You may take your medications with a sip of water as directed by physician. No eye makeup or false eyelashes. No lotions or perfumes. No antiperspirant/deodorant for breast or shoulder surgeries. Anticoagulants will be per physician guidance. Other medication Note(s)/Instructions:Will not take any medications morning of surgery. Pending screening, we may test for COVID. If a patient tests positive, their cases are cancelled and/or rescheduled. COVID SCREENING NOTE: Denies COVID symptoms, no testing required. Additional requests, questions, concerns:Will discuss with Dr. Leos at appointment on 08/18 when to come in for pre-op labs. CB number and availability provided. Patient verbalized understanding of pre-op instructions and voiced no further questions at this time. Maya Mckeon RN 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 2024-08-11 20:20:42 Email sent to the scheduling team. Sherie Batista RN [facility] 2024-08-06 14:39:07 Dany James is a 24 year old female Pt is calling back into the clinic to schedule an appointment with Radiation Oncology. Please call the pt back with scheduling options Torie Smyth [facility] 2024-08-04 12:27:39 Dany James is a 24 year old female Pt calling needing to schedule an appt with radiation oncology from a referral. Please advise [phone] [facility] 2024-07-14 10:12:58 Problem: Falls, Risk of Goal: Absence of falls Outcome: Progressing as expected Problem: Discharge Planning - Goal: Adequate for discharge Outcome: Progressing as expected Goal: Mood stable Outcome: Progressing as expected Problem: Pain Goal: Control of pain at or below patient's documented comfort goal Outcome: Progressing as expected Goal: Reduction in pain sensation Outcome: Progressing as expected [facility] 2024-07-13 20:53:19 This note was copied from a baby's chart. Assessment (most recent) Assessment - 07/13/242044 General Information Visit Initial Percent of weight loss- Infant 0 Number of voids last 24 hours- Infant 5 Number of stools last 24 hours- 2 Mom's age (years) 26 years Poultry Boner Used N/A Gestational age 37 weeks 4 Parity 4 Living Children 4 Feeding plan Breast Attended class No Breastfeed previously Yes Duration 2 months Age at that time 22 years Used pump previously No plans As long as possible Financial Class Medicaid Delivery method Breast changes during None Risk factors None Drug History No Mental health history Depression;Anxiety Breast Surgery/ History None Infant Oral Assessment Oral assessment Deferred Date of 07/12/24 Time of 2322 location Mother Baby Unit Is this a multiple ? No Breast Assessment Breast Assessment Initial Symmetry Symmetrical Size L (D-DD) Shape Rounded Other Soft Scars on breast: No Nipple & Areola Assessment Left Areola Pliable Right Areola Pliable Left Nipple Colostrum visible;Intact;Everted Literature Resources Resources guide;[place] channel Education 6 months exclusive , up to and beyond 1 year with complimentary foods;Infant hunger cues;On-demand feeds at least 8 or more over 24 hours;Diaper counts/color;Benefits of breastmilk;Hand expression;Delay of pacifier/artificial nipples up to 4 weeks;Risk of formula supplementation;Benefits of skin to skin contact;Encouraged rooming-in;Waking techniques;Signs of an effective latch;Infant stomach size;Calming techniques;2nd day/growth spurt cluster feeds;Position changes;Breaking seal;Lactogenesis;Benefits of breast massage and hand expression;Engorgement signs and treatment;Risks of mastitis and signs, seek medical attention immediately Handouts given Egyptian Wireless Sales Manager Observation Pumping No Observed;Mom states latches well with no pain;Reported Position right side Cradle; latched effectively;Suckled in coordinated bursts Interventions Taught hand expression Mother demonstrated teach back of Breast massage and hand expression;Positioning and latching at breast Follow up Mom will call staff;[facility] warmline Recommended Feeding Plan Recommended feeding plan On-demand , 8-12 times in 24 hours not to exceed 6 hours between feeds;Frequent mbaw-[id number]-[id number] time with parents OTHER $ SERVICES Initial Baby is well upon entering room. Mom will call for help needed Lilia Treviño RN,BSN,IBCLC Pager - [phone] [facility] 2024-07-13 10:05:32 Problem: Falls, Risk of Goal: Absence of falls Outcome: Progressing as expected Problem: Discharge Planning - Goal: Adequate for discharge Outcome: Progressing as expected Goal: Mood stable Outcome: Progressing as expected Problem: Pain Goal: Control of pain at or below patient's documented comfort goal Outcome: Progressing as expected Goal: Reduction in pain sensation Outcome: Progressing as expected [facility] 2024-07-13 06:51:49 Patient: Dany James Procedure Summary Date: 07/12/24 Room / Location: Anesthesia Start: 2006 Anesthesia Stop: 07/13/24 0000 Procedure: CENTRAL NEURAXIAL BLOCK Diagnosis: Scheduled Providers: Responsible Provider: Tawanda Hartmann MD Anesthesia Type: Epidural ASA Status: 2 Anesthesia Type: Epidural Last vitals BP Temp Pulse Resp SpO2 There were no known notable events for this encounter. Anesthesia Post Evaluation Patient location during evaluation: bedside Patient participation: complete - patient participated Level of consciousness: awake Pain management: adequate Airway patency: patent Cardiovascular status: acceptable Respiratory status: acceptable Hydration status: acceptable AN-ANESTHESIOLOGY ANESTHESIOLOGIST [facility] 2024-07-13 00:59:42 Problem: Intrapartum process (including labor pain) Goal: Absence of or reduction of complications of labor Outcome: Resolved Goal: Able to cope with pain Outcome: Resolved Goal: Adequate to move to next level of care Outcome: Resolved Goal: Reduction in pain sensation Outcome: Resolved Problem: Falls, Risk of Goal: Absence of falls Outcome: Progressing as expected Stefanie Lyles RN [facility] 2024-07-12 23:47:47 VAGINAL DELIVERY NOTE Delivery Date: 07/12/2024 Delivery Time: 11:22 PM Delivery Summary Pre-delivery diagnosis: The patient was admitted to the Labor & Delivery unit for IOL at 37w0d weeks due to ICP. Post-delivery diagnosis: s/p Nabor- Weight: 3490 g 1 Minute 5 Minute 10 Minute Totals: 8 9 Cord gases obtained: Primary delivering resident: Denice Reaves MD Teaching Resident: Jayy Haq MD OB Faculty: BRYAN HALLMAN Intrapartum Anesthesia/Analgesia: Epidural Labor Complications:NoneNone Additional Complications: None EBL: 300 mL Uterotonics: No TXA given: No Delivery of calderon fetus with cephalic presentation Shoulder Dystocia: No Operative Delivery: No Fetus Vaginal delivery of head with cephalic position, occipital anterior. As the head crowned and distended the perineum, no episiotomy was performed. A blue towel was used to protect the perineum as the head crowned and delivered. The other hand was used to exert pressure on the occiput to control the delivery of the head. The perineum was pushed with a towel-draped hand as the head and mouth was delivered over the perineum. The head was allowed to rotate externally to achieve natural body posture. Examination of neck revealed no umbilical cord. The shoulder was delivered by gentle downward traction applied to head and downward traction for the delivery of anterior shoulder. This was followed by upward traction with delivery of posterior shoulder and body. After the delivery of , bulb suction was performed from oropharynx and nostril with removal of clear amniotic fluid. A normal, female was delivered. Delayed cord clamping done Yes. The umbilical cord was double clamped, cut and the infant was handed off the field to the circulating nurse Placenta Placenta was delivered spontaneously while the abdominal hand lifted the uterus cephalad and other hand keeping the umbilical cord slightly taut. Placenta delivered intact: yes Fourth Stage Fourth stage of labor was managed by uterine massage with abdominal hand and infusion 30 units of pitocin at 600 cc/hr mixed with intravenous fluid. Laceration: Episiotomy: None Indications: Other indications: Perineal Lacerations: 1st Repaired: Yes Other Lacerations: Laceration Repair: Minor 1st degree - perineal laceration repaired with continuous 2-0 chromic sutures. Vaginal Counts: Initial count personnel: DENICE REAVES MD Initial count verified by: NIC Mcdonald Initial Count 0 5 Added Counts 1 0 Final Count 1 5 Final count personnel: DENICE REAVES MD Final count verified by: NIC SCOTT Accurate final count? Yes Physician notified of discrepancy? Radiology study completed? Radiology study positive? Denice Reaves MD OBGYN PGY-1 Associated attestation - Bryan Hallman MD - 07/13/2024 5:37 AM CDT I was supervising [facility] faculty present for this procedure. I was present for all davis portions of the procedure. I have attached an additional note if there were special circumstances during this procedure. [facility] 2024-07-12 20:17:54 Name/ MRN / Age / Gender: Dany James, [id number] 24 year old female BMI: Estimated body mass index is 31.58 kg/m? as calculated from the following: Height as of this encounter: 1.626 m (5' 4"). Weight as of this encounter: 83.5 kg (184 lb). Allergies: Patient has no known allergies. Last Vitals: BP Readings from Last 1 Encounters: 07/12/24 109/86 Pulse Readings from Last 1 Encounters: 07/12/24 90 SpO2 Readings from Last 1 Encounters: 07/12/24 100% Date of Surgery: 07/12/2024 Surgeon: * No surgeons listed * Procedure: CENTRAL NEURAXIAL BLOCK OR Location: [place] ANESTH[facility]IA OUT OF OR - OR LOCATION Anesthesia Preop Eval (physical exam) Anesthesia Preop: Chart Review and [id number] [facility] Communication: Dany James is a 24 year old female with a history as below Past Medical History: 09/05/2022: Anemia of mother in , antepartum No date: Anxiety 10/20/2018: Anxiety and depression 11/18/2019: Atypical chest pain No date: Brain tumor 06/09/2024: Cholestasis during 07/27/2020: Constipation due to slow transit No date: Depression 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 No date: Panic attacks 07/19/2020: Right upper quadrant abdominal pain 07/27/2020: Status post laparoscopic cholecystectomy No date: STD (sexually transmitted disease) Comment: trich x 2 2019 NPO Status Verified Anesthesia History Anesthesia History Negative Previous Anesthetics/Airways Cardiovascular Negative Cardiac ROS Comments: BP Readings from Last 4 Encounters: 07/12/24 : 109/86 07/08/24 : 115/80 07/05/24 : 103/70 06/30/24 : 120/80 Pulmonary Negative Pulmonary ROS Comments: Tobacco Use: Low Risk (07/12/2024) Patient History Smoking Tobacco Use: Never Smokeless Tobacco Use: Never Passive Exposure: Never Neuro/Musculoskeletal Comments: Hx of meningioma s/p resection July 2023 -reports right sided facial numbness and right blurry vision that has been present since after surgery and unchanged during -continues to have occasional mild headaches GI/Hepatic Negative GI/Hepatic ROS Hematology Negative Hematology ROS Comments: HGB (g/dL) Date Value 07/05/2024 10.3 (L) 07/05/24 1601 PLT 267 Renal Negative Renal ROS Comments: CREATININE (mg/dL) Date Value 07/05/2024 0.47 (L) K (mmol/L) Date Value 07/05/2024 4.1 Skin (+) Current IV access and 18g Endo/Other Negative Endo/Other ROS Comments: No results found for: "[id number]" Other MUSIC MINISTRIES DIRECTOR Comments: Dany James is a 24 year old at 37w0d by LMP who presents for IOL. IOL - Reports Ctx, good mvt. - Denies LOF and VB. - SVE: 06/01/Ballotable. Plan: IOL with FB and Pitocin. ICP - Dx in 05/2024 based on sx and BA 14 - Hx of ICP in prior . - On Ursodiol 500 mg BID and Atarax 25 mg PRN. - Denies any current sx. Hx of HSV - Speculum not performed since patient denied any hx of genital flares. 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 MPDPS - Consents signed on 07/08, not mature. - Abdominal surgeries: Lap cholecystectomy (2020) - Will follow up in clinic for interval salpingectomy. Hx of meningioma - S/p brain tumor resection in July 2023 - Last seen by NS on 01/08/24 with plan for follow-up - s/p ophthalmology visit on 03/15/24 with recommendation to follow-up prn - s/p MFM visit on 01/23/24 - Reports on and off mild headache and pain around R eye since surgery. - During last in 2022 when brain lesion was present, sx were stable and she subsequently had a vaginal delivery without complications. Plan: MRI brain w/wo Gadolinium to be done PP. Hx of Anxiety and Depression - stable mood. - Per chart review, father of the baby is in [place] [facility] and she feels safer and less anxious Antepartum course reviewed - 1 h 109, sero negative, Rimmune, VZVimmune, A positive/IAT negative, GBS negative, Pap NILM 09/2023 - H/H, plt: 10.3 / 32.2, 267 on 07/05/2024 - PP control plan: Bilateral salpingectomy. - pvt Dr. Leos. Fetus - Presentation on admission: cephalic - anterior placenta - EFW: 3356 g, 43%tile - FHT reactive and reassuring - Normal anatomy scan Pediatric Preoperative Medication Instructions Continue taking all prescribed medications except: RODO inhibitors, ARBs, diuretics, all oral diabetes medications Anticoagulant Therapy: Defer to surgeons Insulin: Take 1/2 dose the night prior to surgery. Hold on DOS. Phentermine: Alert [facility] anesthesiologist SGLT2 Inhibitors: "gliflozins" to be held for 3 days prior to elective surgeries GLP1 Agonosit: stop 7 days prior to surgery MAC Cases: Continue taking RODO inhibitors and ARBs ASA Classification ASA: 2 Labs: Chemistry 07/05/2024 CBC 07/05/2024 133 (L) 106 10 79 7.64 10.3 (L) 267 4.1 22 (L) 0.47 (L) 32.2 (L) eGFR: 134.8 Date: 07/05/2024 ANC: 5.84 Date: 07/05/2024 LFTs 07/05/2024 Coags AST: 24 AP: 221 (H) Prot: 6.2 (L) Ca: 9.5 PT: - Date: - ALT: 24 T Luke: 0.8 Alb: 3.3 (L) PTT: - Date: - PO4: - Date: - INR: - Date: - Cardiac Endocrine & other pBNP: - Date: - A1C: 4.4 Date: 03/02/2024 Trop I: - Date: - POCT A1C: - Date: - CK: - Date: - TSH: 1.54 Date: 01/23/2024 CKMB: - Date: - FT4: - Date: - LDL: - Date: - Lact: - Date: - Procal: - Date: - Respiratory -|-|-|-|- D-dimer: - ABG Date: - Date: - Miscellaneous Type and Screen: A POSITIVE Antibody: Negative Date: 07/12/2024 POCT : Positive Date: 01/05/2024 Current Medications: No outpatient medications have been marked as taking for the 07/12/24 encounter (Hospital Encounter). Previous Surgeries: Past Surgical History: Procedure Laterality Date CHOLECYSTECTOMY 07/2020 CRANIOTOMY RESECTION TUMOR WITH NAVIGATION (SHX) Right 07/07/2023 Surgeon: Roque Watts MD; Location: [facility] OR LOCATION INITIATE POST OP CHOLECYSTECTOMY CRITICAL PATHWAY IF NOT ALREADY DONE SO Anesthesia Physical Exam General alert and oriented x 3 Neuro/Psych Dental no notable dental hx Abdominal (+) gravid Airway Mallampati score:II TM distance:> 5 cm Neck ROM: full Mouth opening:normal Extremity Pulmonary pulmonary exam normal Other Cardiovascular cardiovascular exam normal Anesthesia Plan ASA Status: 2 Plan discussed during pre-op evaluation: General, Epidural, Spinal and CSE Anesthetic plan on DOS: Epidural Anesthesia plan discussed with: patient or sales representative door to door Post-Operative Analgesia: routine analgesia & antiemetics Recovery Plan: LDR Additional comments: [facility] 2024-07-12 18:25:54 Intrapartum Progress Note 07/12/2024 6:25 PM Subjective: Patient has no complaints Objective: Vitals last 24 hours: Temp: [36.6 ?C (97.9 ?F)-36.8 ?C (98.3 ?F)] 36.8 ?C (98.3 ?F) Pulse: [72-98] 85 Resp: [15-18] 16 BP: (92-129)/(52-79) 124/74 Intake/Output : I/O this shift: In: 483.5 [I.V.:75] Out: - No intake/output data recorded. Assessment Active movement: Yes Mode: EFM Uterine Activity: Mode: [place] Contractions (number / 10 minute): 2 Contraction duration (seconds): 80-90 Contraction quality: Moderate, Palpation Resting tone: Soft, Palpation Membrane Status Membrane status: Intact Cervical Exam 5 / 50 % / -3 Assessment/Plan: Dany James is a 24 year old at 37w0d OB Assessment: IOL, ICP OB Plan: FB@1130, Pit@1145 Additional Comments/Detail: FB removed. Pt desires epidural prior to AROM. Ripening Agent: Oxytocin Rosalinda Lou MD OBSTETRICS & GYNECOLOGY [facility] 2024-07-08 15:00:00 Age: [age] year old GA: 36w3d Here for NST only Cholestasis of -NST reactive and reassuring -Daily kick counts and labor precautions reviewed -Follow-up on Friday for induction as scheduled in [facility] PS -BTL consent signed today Follow-up in 4 to [address] [facility] 2024-07-05 16:00:00 Images from the original note were not included. Venipuncture collection performed by clean technique on the right anticubitus. Total of 1 attempts were made. Slight pressure and a bandage/dressing were applied to the site(s). The patient experienced no complications. The following specimens were processed according to instructions and sent to [facility] laboratories per lab order on 07/05/2024: LT BLUE SST 1 RED LAV 1 PPT DK GREEN (LiHep) DK GREEN (SodH) MARTIN DK BLUE (K2) DK BLUE (S) ACD Blood Culture NIPT/NTD Leos orders [facility] 2024-07-05 15:00:00 Age: [age] year old GA: 36w0d Doing well Cholestasis of -On ursodiol 500 mg twice daily and Atarax 25 mg as needed -Reports intermittent itching -Repeat bile acid on 06/30/2024 slightly elevated, 17, from 14 on 05/27/2024 -ALT/AST within normal limits on 07/05/2024 -NST reactive and reassuring -Follow-up on for NST with plan for delivery at 37 weeks on 07/12/2024 unless clinically indicated otherwise Anxiety/depression - has never been on medication -EPDS 0. Denies SI/HI - HILLARY-7 score 0 History of meningioma -Status post brain tumor resection ~July 2023 - saw neurosurgery on 01/08/24 with plan for follow-up or if clinically indicated sooner. Recommend MRI brain w/o contrast after patient delivers unless clinically indicated otherwise - saw ophthalmology on 03/15/24 with recommendation to follow-up prn - saw MFM on 01/23/24. -Will continue care with me with plan for delivery in [place] unless clinically indicated otherwise History of delivery x 1 -In 2019 due to cholestasis of MPDPS - patient expressed her desire to proceed with bilateral salpingectomy. Anemia - on iron HSV I and II IgG positive - suppression at 36 wks unless clinically indicated otherwise This reviews what Dr. Leos talked about at your 36 week talk: 1. Go to Labor and Delivery when your contractions are 5-7 minutes apart and you have been able to time them for an hour. If you live more than 30 minutes from the hospital, then go when they are 10 minutes apart and you have been able to time them for an hour. 2. BUT, there are 4 reasons to go to Labor and Delivery REGARDLESS of what else is happening, whether you are deyanira or not: 1. If your water breaks - - - it may be a gush or a constant trickle. If you are not sure, always come in to be checked. 2. Bleeding like your period. 3. If your baby's movements are less than 10 in an hour. If you are concerned this might be the case, drink a tall glass of cold fluids, lay down on your side on the couch or your bed and see how long it takes to note 10 movements - if less than 10, this needs to be evaluated immediately. 4. Contractions or Pain that is continuous. Normal labor contractions last only 45 seconds - 1 minute. Cephalic presentation GC/CT and GBS obtained, CBC ordered Zika precautions reviewed Contraception PP: Desires bilateral salpingectomy Follow-up on for NST [facility] 2024-06-30 16:45:00 Images from the original note were not included. Venipuncture collection performed by clean technique on the left anticubitus. Total of 1 attempts were made. Slight pressure and a bandage/dressing were applied to the site(s). The patient experienced no complications. The following specimens were processed according to instructions and sent to [facility] laboratories per lab order on 06/30/2024: LT BLUE SST 2 RED LAV PPT DK GREEN (LiHep) DK GREEN (SodH) MARTIN DK BLUE (K2) DK BLUE (S) ACD Blood Culture NIPT/NTD T [facility] 2024-06-30 15:00:00 Age: [age] year old GA: 35w2d Here for NST only Cholestasis of -States that her palms are itching more. Has been using lotion for her palms. Is taking ursodiol as prescribed. -Repeat CMP and bile acids ordered -NST reactive and reassuring -Daily kick counts -Follow-up on Friday for NST/PN T [facility] 2024-06-30 08:47:54 Patient states her hands and bottom of feet are itchy, it started this morning. No other symptoms. Mary Beth Goodwin [facility] 2024-06-28 15:00:00 Age: [age] year old GA: 35w0d Here for NST only Cholestasis of -NST reactive and reassuring -Daily kick counts -Follow-up on for NST/PN [facility] 2024-06-10 15:00:00 Age: [age] year old GA: 32w3d Here for NST only Cholestasis of -Ursodiol 500 mg twice daily prescribed -NST reactive and reassuring -Daily kick counts -Follow-up on Friday and Friday for NST with [employer] OPERATIONS OFFICER and then Friday for NST/ with Leos [facility] 2024-06-04 09:00:00 Images from the original note were not included. Venipuncture collection performed by clean technique on the left anticubitus. Total of 1 attempts were made. Slight pressure and a bandage/dressing were applied to the site(s). The patient experienced no complications. The following specimens were processed according to instructions and sent to [facility] laboratories per lab order on 06/04/2024 : LT BLUE SST 3 RED 1 LAV 2 PPT DK GREEN (LiHep) DK GREEN (SodH) MARTIN DK BLUE (K2) DK BLUE (S) ACD Blood Culture NIPT/NTD Patient has been identified by and name and was provided with cup, antiseptic towelette, and clean catch instructions. 1 urine specimen(s) sent. Unpreserved Urine Culture 1 Aptima tube Other urine [facility] 2024-06-02 15:15:00 Age: [age] year old GA: 31w2d Have not been seen since 18 weeks gestation due to insurance. Pelvic pain -States that it has been ongoing since March, especially with standing - Advise maternity belt, rest prn, tylenol prn -Offered physical therapy referral. Patient declined at this time. -Patient requested a note for her workplace to be able to park in the front so she does not have to walk as far. Letter given. Itching -On her hands and feet, not on the palms or the soles -Discussed lotion and strategies to prevent skin dryness -CMP and bile acids ordered -Daily kick counts Anxiety/depression - has never been on medication -EPDS 0. Denies SI/HI - HILLARY-7 score 0 - will monitor closely Excessive weight gain -Will discuss at next visit History of meningioma -Status post brain tumor resection ~July 2023 - saw neurosurgery on 01/08/24 with plan for follow-up or if clinically indicated sooner. Recommend MRI brain w/o contrast after patient delivers unless clinically indicated otherwise - saw ophthalmology on 03/15/24 with recommendation to follow-up prn - saw MFM on 01/23/24. -Will continue care with me with plan for delivery in [place] unless clinically indicated otherwise History of delivery x 1 -In 2019 due to cholestasis of MPDPS -Will sign BTL consent at next visit - "I counseled the patient regarding risks, benefits and alternatives of laparoscopic Bilateral Tubal Ligation. Explained that it is a surgical procedure that is done by ligating/cutting/occluding a segment of the tubes;hence, it is a permanent form of control that requires a surgical procedure for reversal (if she changes her mind afterwards), which might not be successful and increases the risk of ectopic if does eventually occur. Risks include but not limited to: infection, bleeding, need for transfusion of blood/blood products, injury to ureter, bladder, bowel with possible further surgery, stint, catheterization or colostomy to repair, conversion to open. The permanence of this procedure and risk of regret in 1 in 3 women were discussed. tubal ligation failure rate is 0.75% and higher in women younger than 30 years old. There is an increased risk for ectopic and the need to seek medical attention should failure of tubal ligation occur. Alternatives discussed include: Oral Contraceptive Agents, Intrauterine Device, Nexplanon, Depo Provera, Ring, Patch, Condoms/foam, vasectomy of partner, or bilateral salpingectomy. Salpingectomy has been shown to decrease risk of ovarian cancer, similar to tubal ligation; however, no tubal reversal will be able to be done in the future and might be able to achieve with in vitro fertilization only. All questions answered, and patient expressed her desire to proceed with bilateral salpingectomy." Anemia - on iron HSV I and II IgG positive - suppression at 36 wks unless clinically indicated otherwise MsAFP neg Anatomy scan not completed due to no insurance. Anatomy ultrasound reordered. 28-week labs and serologies ordered Received Tdap vaccine 3rd trimester teaching done- reviewed S/S of PTL (contractions, leakage of fluid and Vaginal bleeding) and also Kick Counts. Also dicussed Terry-Shaffer, pelvic and lower back pains- expectations and differenced with S/S of PTL She plans to breast fed BC options reviewed- opted for bilateral salpingectomy Systems Testing Laboratory Technician: Dr. Dickinson Follow-up in 2 weeks for visit D OPERATIONS FARM MANAGER [facility] 2024-05-05 16:08:13 Dany James is a 24 year old female states 27.5 wk c/o bilat groin pain worse on the left has been constant since this morning, states no vaginal bleeding see Dr. Leos Report to Trent SCOTT, pt up to L&D via wheelchair D OPERATIONS FARM MANAGER Cookie Woodard RN [facility] 2024-03-22 13:44:18 Summary: Discharge Pt given printed and verbal discharge instructions regarding vomiting and pregancy, encouraged hydration, Prescriptions provided Zofran Discussed ibuprofen and to take with food to avoid GI distress. Pt verbalized understanding of instructions, pt awake alert oriented, resp reg unlabored, skin w/d, color appropriate for race, moves all ext well,pt encouraged to follow up with pcp Advised to seek medical attention for new/prolonged/worsening of symptoms, Symptoms No adverse reaction to meds given in ER noted upon discharge Awake, alert oriented, resp reg unlabored, skin w/d, pt leaving amb with steady gait, in no apparent distress, IA Bagley RN [facility] 2024-03-22 12:12:58 Patient here for vomiting and diarrhea that started yesterday. Patient is 21 weeks . IA Joseph RN [facility] 2024-03-22 12:05:[address] [facility] Emergency Department Note Patient Name: Dany James Date of : 2000 24 year old female Treatment [facility]: [facility] Primary Care Physician: Brandon Espinoza Patient Escorted by: Self [9] Mode of Arrival: Personal means [1] EMS Treatment Prior to ED Arrival: Travel and Exposure Screening: Symptoms Does patient have any of these symptoms?: (not recorded) Exposure Screening Has patient had contact with someone with a communicable disease in the last month?: (not recorded) Diseases exposed to:: (not recorded) Is Patient ?: (not recorded) Exposure Date: (not recorded) Chief Complaint: Chief Complaint Patient presents with Vomiting History of Present Illness: The patient presents from home for evaluation for vomiting and diarrhea that started yesterday. No sick contacts. No bad food exposure. No recent trips or travel or antibiotics. She is also currently and approximately 21 weeks gestation. She does follow with MUSIC MINISTRIES DIRECTOR here at [facility]. No abdominal pain or cramping. No vaginal bleeding or discharge. No dysuria or hematuria. Here for evaluation. 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 Passive Exposure: Never Vaping Use Never used Alcohol Use Not Currently. Drug Use Never. Sexual Activity Sexually active; Partners: Male. Past Surgical History: Past Surgical History: Procedure Laterality Date CHOLECYSTECTOMY 07/2020 CRANIOTOMY RESECTION TUMOR WITH NAVIGATION (SHX) Right 07/07/2023 Surgeon: Roque Watts MD; Location: [facility] OR LOCATION INITIATE POST OP CHOLECYSTECTOMY CRITICAL PATHWAY IF NOT ALREADY DONE SO Review of Systems: Review of Systems Constitutional: Negative for chills and fever. Respiratory: Negative for cough and shortness of breath. Cardiovascular: Negative for chest pain. Gastrointestinal: Positive for diarrhea, nausea and vomiting. Negative for abdominal pain. Genitourinary: Negative for dysuria. Musculoskeletal: Negative for arthralgias, neck pain and neck stiffness. Skin: Negative for wound. Neurological: Negative for dizziness. Psychiatric/Behavioral: Negative for agitation. Endocrine: Negative for goiter. Physical Exam: ED Triage Vitals [03/22/24 1213] Weight 74.4 kg (164 lb) Actual or estimated Height 1.626 m (5' 4") BP 114/84 Pulse 113 Resp 16 Temp 37.3 ?C (99.1 ?F) Temp src SpO2 98 % Measured on Physical Exam Vitals and nursing note reviewed. Constitutional: Appearance: Normal appearance. HENT: Head: Normocephalic and atraumatic. Cardiovascular: Rate and Rhythm: Normal rate and regular rhythm. Pulses: Normal pulses. Pulmonary: Effort: Pulmonary effort is normal. Abdominal: General: There is no distension. Palpations: Abdomen is soft. There is no mass. Tenderness: There is no abdominal tenderness. There is no guarding. Hernia: No hernia is present. Comments: Gravid uterus above the umbilicus Musculoskeletal: General: Normal range of motion. Cervical back: Normal range of motion and neck supple. Skin: General: Skin is warm and dry. Neurological: General: No focal deficit present. Mental Status: She is alert and oriented to person, place, and time. Radiology: No orders to display Lab Results: Lab Results - No data to display EKG: If EKG completed, see Procedure Note. Orders and Treatments: No orders of the defined types were placed in this encounter. Orders Placed This Encounter Medications ondansetron (ZOFRAN-ODT) disintegrating tablet 4 mg ondansetron 4 mg disintegrating tablet First Provider Eval: ED Events Date/Time Event User Comments 03/22/24 1209 Medical Screening Begins KIA NARANJO DO -- 03/22/24 1209 First Provider Evaluation KIA NARANJO DO -- ED COURSE Diagnosis/Impression as of 03/22/24 1330 Nausea and vomiting, unspecified vomiting type Procedures: Procedures MDM: Medical Decision Making The patient presents from home for evaluation for vomiting and diarrhea that started yesterday. No sick contacts. No bad food exposure. No recent trips or travel or antibiotics. She is also currently and approximately 21 weeks gestation. She does follow with MUSIC MINISTRIES DIRECTOR here at [facility]. No abdominal pain or cramping. No vaginal bleeding or discharge. No dysuria or hematuria. Vital signs are stable in the ER. Her abdomen is soft and nontender but does have a gravid uterus above the umbilicus. Offered the patient Zofran ODT versus IV antiemetics. She does prefer to try the Zofran ODT. Will give a p.o. challenge approximately 15 minutes later. Anticipate discharge home later. 1330 - the patient is doing well here in the ER. Her nausea and vomiting has resolved with the administration of antiemetics here in the ER. She was given a p.o. challenge and able to tolerate by mouth without difficulty. She remained stable here in the ER and is okay for discharge home with PCP follow-up. Problems Addressed: Nausea and vomiting, unspecified vomiting type: acute illness or injury Risk OTC drugs. Prescription drug management. Flowsheet Documentation: Scoring Tools: No data recorded Disposition/Condition: ED Disposition ED Disposition Discharge Condition Stable Comment -- Discharge Medications: Patient's Medications START taking these medications ONDANSETRON 4 MG DISINTEGRATING TABLET Take 1 tablet by mouth every 8 (eight) hours as needed for Nausea and Vomiting (N/V). CONTINUE taking these medications which have NOT CHANGED ASCORBIC ACID, VITAMIN C, (VITAMIN C) 500 MG TABLET Take 1 tablet by mouth in the morning. FERROUS SULFATE (IRON, FERROUS SULFATE,) 325 MG (65 MG IRON) TABLET Take 1 tablet by mouth in the morning and 1 tablet in the evening. PNV NO.95/FERROUS FUM/FOLIC AC ( ORAL) Take by mouth. START taking Modified Medications as Prescribed No medications on file STOP taking these medications ONDANSETRON 4 MG DISINTEGRATING TABLET Take 1 tablet by mouth every 8 (eight) hours as needed for Nausea and Vomiting (N/V). PROMETHAZINE 12.5 MG TABLET Take 1 tablet by mouth every 4 (four) hours as needed for Nausea and Vomiting (N/V) or N/V unresponsive to Ondansetron. Follow-up: Electronically signed by: Kia Naranjo DO 03/22/24 1330 [facility] 2024-03-22 11:40:45 Name and . V/D started yesterday. Worse last night. Not able to hold any fluids. Urine dark yellow. Back and abd pain. Instructed pt to go to ER. Pt stated that she doesn't have insurance. Explained to her that they will not send her away. However, she may try Vit B6 and Unisom for vomiting and Imodium for diarrhea. Stay away from greasy, spicy foods. Educated pt on the importance of staying hydrated during . Pt verbalized understanding. D OPERATIONS FARM MANAGER Michelet Carter RN [facility] 2024-03-22 08:02:06 Dany James is a 24 year old female Pt states she has been vomiting and having diarreah since midnight. Not able to hold food down. Pt would like to speak to a nurse. IA Montero [facility] 2024-03-02 08:30:00 Images from the original note were not included. Venipuncture collection performed by clean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 2023-07-09 02:32:28 Problem: Discharge Planning Goal: Adequate for discharge Outcome: Progressing as expected Goal: Effective communication Outcome: Progressing as expected Problem: Falls, Risk of Goal: Absence of falls Outcome: Progressing as expected Problem: Infection, Risk of or Actual Goal: Absence of infection Outcome: Progressing as expected Problem: Pain Goal: Control of pain at or below patient's documented comfort goal Outcome: Progressing as expected Goal: Reduction in pain sensation Outcome: Progressing as expected Problem: Tissue Perfusion - Altered, Risk of Goal: Hemodynamically stable Outcome: Progressing as expected [facility] 2023-07-08 20:13:12 Problem: Discharge Planning Goal: Adequate for discharge Outcome: Progressing as expected Goal: Effective communication Outcome: Progressing as expected Problem: Falls, Risk of Goal: Absence of falls Outcome: Progressing as expected Problem: Infection, Risk of or Actual Goal: Absence of infection Outcome: Progressing as expected Problem: Pain Goal: Control of pain at or below patient's documented comfort goal Outcome: Progressing as expected Goal: Reduction in pain sensation Outcome: Progressing as expected Problem: Tissue Perfusion - Altered, Risk of Goal: Hemodynamically stable Outcome: Progressing as expected [facility] Sarthak Torres RN [facility] 2023-07-08 13:07:40 Addendum created 07/08/23 1307 by Diego Fontanez MD Intraprocedure Meds edited [facility] 2023-07-08 08:31:00 Problem: Restraint Use Goal: Absence of restraint indications Outcome: Resolved Goal: Absence of restraint-related injury Outcome: Resolved [facility] 2023-07-08 06:34:29 Problem: Discharge Planning Goal: Adequate for discharge Outcome: Progressing as expected Goal: Effective communication Outcome: Progressing as expected Problem: Falls, Risk of Goal: Absence of falls Outcome: Progressing as expected Problem: Infection, Risk of or Actual Goal: Absence of infection Outcome: Progressing as expected Problem: Pain Goal: Control of pain at or below patient's documented comfort goal Outcome: Progressing as expected Goal: Reduction in pain sensation Outcome: Progressing as expected Problem: Restraint Use Goal: Absence of restraint indications Outcome: Progressing as expected Goal: Absence of restraint-related injury Outcome: Progressing as expected Problem: Tissue Perfusion - Altered, Risk of Goal: Hemodynamically stable Outcome: Progressing as expected [facility] 2023-07-08 05:27:51 Problem: Discharge Planning Goal: Adequate for discharge Outcome: Progressing as expected Goal: Effective communication Outcome: Progressing as expected Problem: Falls, Risk of Goal: Absence of falls Outcome: Progressing as expected Problem: Infection, Risk of or Actual Goal: Absence of infection Outcome: Progressing as expected Problem: Pain Goal: Control of pain at or below patient's documented comfort goal Outcome: Progressing as expected Goal: Reduction in pain sensation Outcome: Progressing as expected Problem: Restraint Use Goal: Absence of restraint indications Outcome: Progressing as expected Goal: Absence of restraint-related injury Outcome: Progressing as expected Problem: Tissue Perfusion - Altered, Risk of Goal: Hemodynamically stable Outcome: Progressing as expected [facility] Verónica Barker RN [facility] 2023-07-07 21:44:58 Patient: Dany James Procedure Summary Date: 07/07/23 Room / Location: [address] OR LOCATION Anesthesia Start: 733 Anesthesia Stop: 2049 Procedure: CRANIOTOMY RESECTION TUMOR WITH NAVIGATION (Right: Head) Diagnosis: Meningioma (Meningioma [D32.9]) Surgeons: Roque Watts MD Responsible Provider: Diego Fontanez MD Anesthesia Type: General ASA Status: 3 Anesthesia Type: General Last vitals BP Temp Pulse Resp SpO2 There were no known notable events for this encounter. Anesthesia Post Evaluation Patient location during evaluation: ICU Patient participation: complete - patient participated Level of consciousness: awake Pain management: adequate Airway patency: patent Cardiovascular status: acceptable Respiratory status: acceptable Hydration status: acceptable Comments: VSS. See flowsheets for vitals. Patient following some commands. After handoff to ICU physician given, patient vomited brown / black liquid (there was not any at time of extubation or transport, etc). Possible seizure-like activity but not definitive. ICU physician has ordered nebulizer treatment and antibiotics for possible aspiration. Patient was suctioned out immediately and placed on supplemental O2 and SpO2>90% with this. AN-ANESTHESIOLOGY ANESTHESIOLOGIST [facility] 2023-07-07 16:34:54 Update given to friend Jess @ 1633.- HP Mara Handy RN [facility] 2023-07-07 14:20:07 Attempted to call Dad he did not answer,updated the friend Jess at 1015H,1230H,1420H. Mary Keys RN [facility] 2023-07-07 09:27:00 Neurosurgery Service Operative Report Date: 07/07/2023 Pre-op Diagnosis: right petroclival meningioma Post-op Diagnosis: right petroclival meningioma Procedure: 1) right retrosigmoid craniotomy for stage 2 resection of petroclival meningioma 13707 2) use of intraoperative microscope +[id number] 3) frameless stereotactic neuronavigation +[id number] 4) neuromonitoring with MEP/SSEP, BAERs and cranial nerve monitoring Wound Class: clean Attending Surgeon: Roque Watts MD Chief Resident Surgeon: Caroline Valladares MD PhD Hand Stonecutter Surgeon(s): Lopez Ballesteros MD Findings: Right petroclival tumor removed Anesthesia: General endotracheal anesthesia Anesthesia Staff: Nikhil Leonard MD Fluids: per anesthesia Urine Output: per anesthesia Estimated Blood Loss: 250cc Drains: none Specimens: right petroclival tumor for frozen and permanent pathology Blood Products: none Implants: [place] cranial plating system Complications: none apparent Condition: The patient did tolerate the procedure well. Patient was extubated and was transferred to the ICU in stable condition. Indication for Surgery: Dany James is a 23 year old woman followed for 3cm R petroclival lesion w/ sx of positional diplopia and facial numbness as well as fatigue/forgetfulness. No blood thinners/anticoags. No gross changes to endorsed sx; progressive worsening of vision sx, facial numbness R side, and R hearing. Work-related injury to R leg, no fractures, just bruising. Serial MRI scans have shown progressive growth of the mass during the time of symptom progression. Surgery did have to be delayed due to ongoing , but now patient wishes to proceed with surgery. 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 The patient agreed to proceed with surgery. She was accompanied to the operating room by a neurosurgeon. Timeout was performed verifying the correct patient, correct surgical site, and correct procedure. The patient was intubated and IV's were placed by anesthesia. Neuromonitoring electrodes for facial and lower cranial nerves and SSEP were placed by a medical technician assistant. The patient was positioned in lateral park-bench position with right side up on a beanbag in the operating room table. Her head was pinned with a Menon and the frameless stereotactic navigation system was registered using facial registration. The hair behind her right ear was shaved. A linear incision was marked 2 fingerbreadths behind the right ear. Alcohol and chlorhexedine was used to clean the skin, and lidocaine was injected. The area was prepped and draped in the usual sterile fashion. A 10-blade was used to make incision down to fascia and bovie electrocautery was used to cut through muscle to bone. The transverse sigmoid junction and mastoid groove were exposed. A retrosigmoid craniotomy was then drilled with cutting tali and craniotome. Self-retaining retractors were placed. The mastoid was drilled and air cells were waxed. The dura was opened sharply. The operating room microscope was brought into the field. The arachnoid over the cisterna magna was opened and a large amount of CSF was drained, allowing the cerebellum to relax. BAERs were intact at the beginning of surgery, but were dampened after irrigation entered the mastoid aircells during drilling, prior to opening the dura. We followed the petrous dura to the suprameatal tubercle. CN VII/VIII were visualized and the arachnoid over them was cut sharply releasing additional CSF. CN V was visible superiorly and was stretched posteriorly by tumor. We turned our attention to the superior part of the tumor. We first made our way along the tentorium at the junction between the tent and petrous dura. Tumor was coagulated and cut from along the tentorium. Frozen section was suggestive of meningioma. After defining planes along the outside of the tumor between the cerebellum/brainstem and the tumor medially, we aggressively debulked the tumor with ultrasonic aspirator. By sequentially debulking, dissecting the capsule, and collapsing the tumor inwards, we were able to remove the superior portion of the tumor. CN IV, the CLAY PLANT TREATER and basilar apex were visualized. We continued dissecting inferiorly and debulking the tumor, then carefully dissecting the tumor away from the brainstem. Basilar perforators were untangled from the capsule of the tumor as it was removed. We continued this process in a superior to inferior direction until the level of CN V. At the level of CN V, the tumor became more adherent to the brainstem. This was resected until approximately group home between CN V and CN VII. CN was visualized ventral to the tumor. It was adherent to the capsule of the tumor and was sharply dissected away from the tumor. CN was visualized and dissected from its origin at the pontomedullary sulcus to dorellos canal and remained intact. Just superior to CN the tumor as not safely removable from the surface of the brainstem, as perforators were entrapped in the capsule. A thin layer of tumor was left in this region. At the conclusion of resection, CN VII stimulated at the brainstem at 0.07mA. The remainder of the tumor along the petrous and clival dura was resected. Tumor within Meckel's cave was not removed. After the intended extent of resection was achieved, we obtained meticulous hemostasis. The resection cavity was irrigated. The dura was closed in water-tight fashion with a dural patch. The bone was plated and secured in place. The wound was washed with antibiotic irrigation. The muscle was closed with 2-0 vicryl sutures, and the fascia was closed in a separate layer. The deep dermis skin was closed with vicryl sutures, and the epidermis was closed in separate layer. An occlusive dressing was then placed. At the completion of the case all counts were correct. There were no complications. SSEP and MEP remained stable throughout surgery. The patient was awoken from anesthesia and extubated in the operating room. She was accompanied to the ICU in stable condition. Roque Watts MD Media Theorist And Author Of [facility] Department of Neurosurgery 07/07/2023 [facility] 2023-07-07 09:27:00 BRIEF NEUROSURGERY OPERATIVE NOTE Date of Surgery: 07/07/2023 Faculty: Roque Watts MD Resident(s): Lopez Ballesteros MD, Caroline Valladares MD, PhD Anesthesia Type: General Pre-operative diagnosis: Right petroclival meningioma Post-operative diagnosis: same Procedures: right retrosigmoid craniotomy for tumor resection Findings: see op note Complications: none Estimated blood loss: 250cc Specimens: ID Type Source Tests Collected by Time Destination 1 : RIGHT BRAIN TUMOR Tissue BRAIN SURGICAL PATHOLOGY EXAM Roque Watts MD 07/07/2023 1218 2 : RIGHT PETROCLIVAL MASS Tissue BRAIN SURGICAL PATHOLOGY EXAM Roque Watts MD 07/07/2023 1855 Implants: Implant Name Type Inv. Item Serial No. [employer] Lot No. LRB No. Used Action SUBSTITUTE DURA 3X3IN LYOPLANT BOVI PERICRD ONLAY ABS #[id number] - SN/A Tissue, Biological SUBSTITUTE DURA 3X3IN LYOPLANT BOVI PERICRD ONLAY ABS #[id number] N/A AESCULAP [id number] Right 1 Implanted SCREW 4MM 1.5MM CRANL SLF DRILL AX STAB NS BONE UNVR ALIREZA 3 #[id number] - SN/A SCREW 4MM 1.5MM CRANL SLF DRILL AX STAB NS BONE UNVR ALIREZA 3 #[id number] N/A FLORINA N/A Right 7 Implanted PLATE FLORINA 1.7MM DYNAMIC MESH 90X90X.6MM #[id number] - SN/A MESH PLATE FLORINA 1.7MM DYNAMIC MESH 90X90X.6MM #[id number] N/A FLORINA N/A Right 1 Implanted Drains: none Patient was extubated and transferred to the ICU without complication in stable condition. Plan: ICU; q1 neuro checks Keep NPO SBP < 130 Dex 8mg q12; ppi Pt/ot MRI brain w/wo Hold antiplatelets/anticoagulati on SCDs Pain control Lopez Ballesteros Neuorsurgery Resident [facility] 2023-07-04 15:45:00 Images from the original note were not included. Venipuncture collection performed by clean technique on the left anticubitus. Total of 1 attempts were made. Slight pressure and a bandage/dressing were applied to the site(s). The patient experienced no complications. The following specimens were processed according to instructions and sent to [facility] laboratories per lab order on 07/04/2023 : LT BLUE SST RED LAV 1 PPT DK GREEN (LiHep) DK GREEN (SodH) MARTIN DK BLUE (K2) DK BLUE (S) ACD Blood Culture NIPT/NTD BB: GZ [address] [facility] 2023-07-04 15:34:07 Dany James is a 23 year old female. Spoke with patient. Please disregard. Per Shantal patient is good to go for surgery on 07/06. Patient verbalized understanding. Lynette Decker [facility] 2023-07-04 15:23:00 Dany James is a 23 year old female Patient has seen the message from this morning about not being able to move forward with her procedure, but received a call from the surgery team letting her know what time to be there. So patient is confused if she is having the surgery done or not. Please advise and contact the patient at [phone] (home) Ngozi Carlos [facility] 2023-07-04 13:19:49 Surgery date: 07/07/2023 Location: [facility]. Address: [address] [place] [address]. You will check in on the 3rd floor. Arrival time: 5:15 AM No solid food, no milk/dairy products, no candy or gum after 10 PM prior to your surgery. You may have clear liquids until: 3:15 AM Examples of clear liquids include water, apple juice, Gatorade, sprite or Jello (without fruit)- No red, blue, or purple colors with any of these liquids. Please bring your picture ID and insurance card to check in. Leave all jewelry and valuables at home. You are allowed to have up to two adult visitors (age 1818 years old and up) in the preop and recovery areas. If you must bring anyone under the age of 1818 years old, an additional adult must be present to wait with them in the lobby. If you wear contact lenses, please wear glasses on your day of surgery. For pediatric patients: a legal guardian must be present with patient as consents will need to be signed prior to surgery. If you have any questions, please call Day Surgery [facility] at [phone] from 5 am to 5 pm. Sindi Acosta RN [facility] 2023-07-03 09:29:35 Name/ MRN / Age / Gender: Dany James, [id number] 23 year old female BMI: Estimated body mass index is 22.66 kg/m? as calculated from the following: Height as of 06/23/23: 1.626 m (5' 4"). Weight as of 06/23/23: 59.9 kg (132 lb). Allergies: Patient has no known allergies. Last Vitals: BP Readings from Last 1 Encounters: 06/23/23 103/71 Pulse Readings from Last 1 Encounters: 06/23/23 84 SpO2 Readings from Last 1 Encounters: 06/23/23 99% Date of Surgery: 07/07/2023 Surgeon: Roque Watts MD Procedure: CRANIOTOMY RESECTION TUMOR WITH NAVIGATION (Right: Head) OR Location: [facility] OR LOCATION Anesthesia Preop Screen (no physical exam) Copied forward and updated from: 11/09/2022 Anesthesia Preop: Chart Review, Phone Preop and [id number] [facility] questionnaire answers not incorporated [facility] Communication: NPO Status Verified Clear Liquids: > 2 Hours Solid Food/Non-Clear Liquids: > 8 Hours PONV Risk Factors: female, non-smoker and post-op opiate use anticipated Anesthesia History Anesthesia History Negative (-) Hx of anesthetic complications (-) Hx of PONV (-) Fam hx of anesthetic complications (-) Hx of awareness during surgery (-) Hx of malignant hyperthermia (-) Hx of difficult airway (-) Pt reports no hx of difficult airway (-) Hx of difficult IV access Previous Anesthetics/Airways Additional Comments: 08/23/2021: ETT 7.0 mm, cuffed, DL, intubating stylet, oral, Maddox #2, grade I, FVOG, attempts 1. Cardiovascular Comments: 06/23/2023 Seen by Cardiology for SOB Assessment and Plan: SOB. Chest pain. She was seen in clinic with complaints of shortness of breath at rest. She is still has off-and-on mild shortness of breath which lasts less than a minute. She reports symptoms as a child, used to use inhalers. 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 She was at work last week and had an episode of chest tenderness which resolved in few minutes. Echo and EKG reviewed with the patient today Continue to monitor and call clinic if symptoms worse Follow up in clinic in 12 months 06/23/2023 EKG Normal sinus rhythm with sinus arrhythmia Normal ECG When compared with ECG of 24-MAR-2023 08:20, Nonspecific T wave abnormality, worse in Anterior leads 04/23/2023 TTE Interpretation Summary Left Ventricle: Left ventricle size is normal. Normal wall thickness. Normal wall motion. Normal systolic function with a visually estimated EF of 50 - 55%. Normal diastolic function. Right Ventricle: Right ventricle size is normal. Normal systolic function. Left Atrium: Left atrium size is normal. Atrial septal aneurysm present. Tricuspid Valve: Insufficient tricuspid regurgitation jet to estimate RVSP, but probably normal. RA pressure is 0-5 mmHg. 03/09/2021 ECG Sinus tachycardia Otherwise normal ECG When compared with ECG of 18-NOV-2019 09:46, No significant change has occurred 03/09/2021 ED Visit (X1 hour) DX: Chest pain, unspecified type. Anxiety ER Note: Pt c/o CP. Incident happened at work that scared her. She had intermittent pain since. When her pain comes on it is a throbbing chest pain similar to her previous anxiety type pains. Her pain was completely resolved with Toradol in the ER. CBC chemistry and D-dimer are all normal. EKG and telemetry are sinus rhythm. 12/08/2019 TTE Interpretation Summary EF 55-60% There is no comparison study available. The study was diagnostic quality. Left ventricular systolic function is normal. Diastolic function is normal. The right ventricle is normal in size and function. Right ventricular systolic pressure is 20-25 mmHg. 12/06/2019 Seen by Cardiology for CP. Suspected musculoskeletal. 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 Does all ADLs independently. Denies any SOB or CP since the beginning of June and has since been evaluated by Cardiology. (-) Chest pain with 1-2 flights of stairs (-) Hypertension (-) Hx of cardiac stress test (-) Hx of cardiac cath (-) Angina/Chest Pain Within Last Year (-) Patient does not report prior NE (-) CAD (-) Valvular problems/murmurs (-) Dysrhythmias (-) Pt reports prior cardiac surgery (-) No cardiovascular devices present (-) CHF Pulmonary Negative Pulmonary ROS (-) Patient does not report snoring or stopping breathing during sleep (-) Home O2 (-) COPD (-) Asthma (-) Shortness of breath (-) Tobacco use (-) COVID-19 within the past 6 weeks (-) Influenza within the past 6 weeks (-) Pneumonia within the last 6 weeks (-) Recent bronchitis or URI Neuro/Musculoskeletal Comments: 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 She continues to have daily bifrontal headaches, feels that these have progressed since last seen. She also continues to have occasional shooting pains to her right eye. Also reports blurred vision to both eyes. Additionally, she has noticed excessive fatigue and forgetfulness. 06/02/2023 MR Brain IMPRESSION Grossly unchanged right cerebellar pontine angle cistern mass extending along right prepontine cistern and Meckel's cave. Unchanged mass effect on the right cerebral peduncle and ebony without underlying edema. Abutment of right superior cerebellar artery. The basilar artery and CLAY PLANT TREATER are in very close proximity to the mass. MRI Brain 03/20/2023: Continued enlargement of the right cerebellopontine angle cistern mass with extension into the right Meckel's cave as described above, the largest component of the mass (CP angle) measures approximately 2 x 3 x 3 cm and is exerting moderate mass effect on the underlying ebony/midbrain Cerebellopontine angle tumor Neurosarcoidosis - Dx 08/2021 after episode of severe headache, R unilateral ear and eye pain - Was scheduled for craniotomy resection in August 2021 but aborted due to head lice - Followed by Neuro, Rheumatology and MFM - As of 2021, mass effect and hematoma have decreased with progression of "plaque-like enhancement" suggestive of sarcoidosis or other inflammatory disorder - Pt endorses headache on admission, unchanged from baseline, does not desire medication - Plan: Continue to f/u with neurosurgery after delivery, per note, planning to repeat MRI in 2-3 months 08/17/2021 CT Head IMPRESSION The hyperdense lesion in the right cerebellopontine angle [...] resolution is recommended to exclude an underlying mass. Of note, no mass was present on the MRI brain dated 03/24/2019. 08/16/2021 Normal cerebral angiogram no evidence of aneurysms or fistula. 08/14/2021 ED to Hosp Admission (X4 days) Admission Diagnosis: right cerebellopontine angle lesion Discharge Diagnosis: same 08/14/2021 ED Visit (X3 hours) Other headache syndrome (Primary) Cerebellopontine angle tumor Migraine without status migrainosus, not intractable, unspecified migraine type H/o: Acute midline low back pain without sciatica. Acute bilateral thoracic back pain. (-) TIA (-) CVA(+) Headaches, migraines (-) Seizures (-) Syncope (+) Psychiatric history (Panic attacks, adjustment insomnia, depression ) and other and depression (+) Anxiety (-) Neuromuscular Disease (-) Scoliosis (-) Spinal Cord injury GI/Hepatic Comments: 05/29/2023 MR Abdomen IMPRESSION - Since 10/16/2020, no change in two right hepatic lobe focal nodular hyperplasia. 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 Promethazine. 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 08/31/2020 CT Abdomen Pelvis 1. There are 2 masses located in the liver, the larger one measures 2.7 x 2.6 cm and the smaller measures 1.3 x 1.4 cm. The enhancement characteristics are suggestive of hepatic adenomas. Further evaluation can be obtained with MRI of the liver using Eovist as intravenous contrast and delayed imaging up to 20 minutes (-) GERD (-) Liver disease Hematology Negative Hematology ROS Comments: 11/08/22 19:56 IAT: Negative (-) PE/DVT (-) Not on anti-coagulant therapy Prior Blood Transfusion: No (-) No previous positive antibody screen (-) No historical type and screen Type and Screen Ordered: Yes Patient Accepts Blood Transfusion: Yes Renal Negative Renal ROS (-) Renal disease (-) Dialysis Skin Negative Skin ROS (+) Current IV access Endo/Other Negative Endo/Other ROS (-) Diabetes Mellitus Other (-) Tobacco use 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 Hold on DOS. Phentermine: Alert [facility] anesthesiologist SGLT2 Inhibitors: "gliflozins" to be held for 3 days prior to elective surgeries GLP1 Agonosit: stop 7 days prior to surgery MAC Cases: Continue taking RODO inhibitors and ARBs ASA Classification ASA: 3 Labs: Chemistry 05/19/2023 CBC 05/19/2023 139 107 13 87 3.39 (L) 13.8 258 3.6 25 0.62 40.1 eGFR: 126.9 Date: 05/19/2023 ANC: 1.68 (L) Date: 05/19/2023 LFTs 05/19/2023 Coags AST: 26 AP: 89 Prot: 7.0 Ca: 9.0 PT: 11.3 Date: 05/20/2023 ALT: 26 T Luke: 0.5 Alb: 4.1 PTT: 30 Date: 05/20/2023 PO4: - Date: - INR: 1.0 Date: 05/20/2023 Cardiac Endocrine & other pBNP: - Date: - A1C: 5.1 Date: 01/01/2023 Trop I: - Date: - TSH: 1.67 Date: 05/19/2023 CK: - Date: - FT4: 0.99 Date: 05/19/2023 CKMB: - Date: - Lact: - Date: - Procal: - Date: - Respiratory -|-|-|-|- D-dimer: - ABG Date: - Date: - Current Medications: No outpatient medications have been marked as taking for the 07/07/23 encounter (Hospital Encounter). Previous Surgeries: Past Surgical History: Procedure Laterality Date CHOLECYSTECTOMY 07/2020 INITIATE POST OP CHOLECYSTECTOMY CRITICAL PATHWAY IF NOT ALREADY DONE SO Anesthesia Physical Exam General no apparent distress and alert and oriented x 3 Neuro/Psych neurological Dental no notable dental hx Abdominal GI exam normal Airway Mallampati score:II TM distance:> 5 cm Neck ROM: full Mouth opening:normal Extremity Normal extremity Pulmonary pulmonary exam normal Other Cardiovascular cardiovascular exam normal Anesthesia Plan ASA Status: 3 Plan discussed during pre-op evaluation: General and TIVA Anesthetic plan on DOS: General and TIVA Plan to include: IV induction, ETT and arterial line Anesthesia plan discussed with: patient or sales representative door to door Post-Operative Analgesia: routine analgesia & antiemetics Recovery Plan: ICU Additional comments: AN-ANESTHESIOLOGY ANESTHESIOLOGIST [facility] 2023-06-20 09:03:49 I spoke with patient who states there was a misunderstanding with insurance and it is currently still active, is requesting first available surgery date if possible, Dr. Watts notified and will contact patient back once reviewed. Ayde Lynn RN [facility] 2023-06-19 16:34:38 Dany Zohreh Moran is a 23 year old female Pt is calling requesting if is possible to have surgery with Dr. Watts in a sooner date. Please review and advise thank you Ratna Porras V [facility] 2023-06-12 15:04:48 I called and left message advising that surgery has been rescheduled for 07/15. D OPERATIONS FARM MANAGER Ayde Lynn RN [facility] 2023-06-11 13:01:56 I spoke with patient who is requesting first available surgery date after July 06 due to insurance change, Dr. Watts notified and will contact once reviewed. D OPERATIONS FARM MANAGER Ayde Lynn RN [facility] 2023-06-11 11:08:20 Dany James is a 23 year old female Pt is calling needing to reschedule her surgery day due to insurance. She has changed insurance to [facility] and will not be in until July 06. Pt would also want to inform Dr. Watts that although symptoms are worsening she is managing. Please advise thank you D OPERATIONS FARM MANAGER Ratna Porras V [facility] 2023-05-27 12:47:54 Work letter has been created and is available on [employer] D OPERATIONS FARM MANAGER Ayde Lynn RN [facility] 2023-05-27 11:37:22 Dany James is a 23 year old female Patient is calling and states she would be needing a letter for her job in regards to how much time she will need off due to upcoming surgery and recovery. Please advise [phone] (home) D OPERATIONS FARM MANAGER Vibha Abraham [facility] 2023-05-25 17:33:02 Acknowledged. Please schedule patient for follow-up appointment. Thank you. [facility] 2023-05-23 10:55:40 Noted, Routing to provider. D OPERATIONS FARM MANAGER Viridiana Hilliard MA [facility] 2023-05-23 10:44:32 Pt is calling to Notify Dr. Espinoza she is having Brain Surgery on 06/[address] [facility] Please advise. IA Goodwin [facility] 2023-05-20 11:15:00 Images from the original note were not included. Venipuncture collection performed by clean technique on the right forearm(s). Total of 1 attempts were made. Slight pressure and a bandage/dressing were applied to the site(s). The patient experienced no complications. The following specimens were processed according to instructions and sent to [facility] laboratories per lab order on 05/20/2023: LT BLUE 1 SST RED LAV PPT DK GREEN (LiHep) DK GREEN (SodH) MARTIN DK BLUE (K2) DK BLUE (S) ACD Blood Culture NIPT/NTD [facility] 2023-05-20 09:00:00 Patient presented with specimen for drop-off and was identified by and name. Collection information/ total volume were documented accordingly. The following specimens were sent to [facility] laboratories per lab order on 05/20/2023 : 24 hour urine Random urine Stool 1 Swab Other [facility] 2023-05-19 13:30:00 Images from the original note were not included. Venipuncture collection performed by clean technique on the right anticubitus. Total of 1 attempts were made. Slight pressure and a bandage/dressing were applied to the site(s). The patient experienced no complications. The following specimens were processed according to instructions and sent to [facility] laboratories per lab order on 05/19/2023 : LT BLUE SST 1 RED LAV 1 PPT DK GREEN (LiHep) DK GREEN (SodH) MARTIN DK BLUE (K2) DK BLUE (S) ACD Blood Culture NIPT/NTD [facility] 2023-05-19 09:44:21 Patient scheduled for 05/27 - patient aware [facility] Ayde Lynn RN [facility] 2023-05-19 08:17:48 Dany James is a 23 year old female Pt calling stating that she left emergency room last Friday and is having a lot of symptoms due to her tumor, pt was rescheduled for sooner available appt with Dr. Watts and she would like to discuss surgery. Pt is requesting if sooner appointment is possible due to strong symptoms Please advise Thank you D OPERATIONS FARM MANAGER Ratna Porras V [facility] 2023-05-17 14:57:01 Pt discharged with diagnosis of vomiting, UTI without hematuria, intractable episodic paroxysmal hemicrania, and cerebellopontine angle tumor. Printed and verbal instructions reviewed with and given to pt. Prescriptions given x 4. Pt verbalized understanding of teaching, medications, and recommended follow-up. Denies questions or concerns at this time. Pt ambulatory at discharge. Appears in no apparent distress. No ataxia noted. Awaiting transportation in [facility] [place]. IA Murphy RN [facility] 2023-05-17 10:05:00 Patient states: "I have a brain tumor and I'm suppose to see my surgeon Dr. Dupree ([facility]) on the 16 of June to schedule surgery. I'm having a headache and abdominal pain. Today I started having abdominal pain/ vomiting/ diarrhea. When I vomit the whole right side of my head hurts" IA Davis RN [facility] 2023-04-24 16:11:07 Images from the original note were not included. Per Mavis Navarro message sent to pt. IA Khalil RN [facility] 2023-03-21 16:39:27 Called patient, and updated her brain MRI result that was done yesterday -- enlarging previous right CPA mass lesion. She will see Dr. Watts on 04/03/2023. Depending on whether they will do mass biopsy, will hold for spinal tap for now. Thank you! Raz Gomez MD, PhD. D OPERATIONS FARM MANAGER PN-NEUROLOGY STAFF [facility] 2023-03-21 09:08:53 Dany James is a 23 year old female Patient is calling requests that new orders are placed as these will tomorrow: IR SPINAL LUMBAR PUNCTURE DIAGNOSTIC [[id number]] (Order [id number]) IA Fontanez [facility] 2022-11-10 12:21:48 Formatting of this n ote might be different from the original. Problem: Falls, Risk of Goal: Absence of falls Outcome: Adequate for discharge Problem: Discharge Planning - Goal: Adequate for discharge Outcome: Adequate for discharge Goal: Mood stable Outcome: Adequate for discharge Problem: Breast-feeding - Ineffective Goal: Effective breast-feeding Outcome: Adequate for discharge Dayanna Nayak RN [facility] 2022-11-10 03:03:35 Formatting of this n ote might be different from the original. Problem: Intrapartum process (including labor pain) Goal: Absence of or reduction of complications of labor Outcome: Resolved Goal: Able to cope with pain Outcome: Resolved Goal: Adequate to move to next level of care Outcome: Resolved Goal: Reduction in pain sensation Outcome: Resolved Problem: Falls, Risk of Goal: Absence of falls Outcome: Progressing as expected Problem: Discharge Planning - Goal: Adequate for discharge Outcome: Progressing as expected Goal: Mood stable Outcome: Progressing as expected Problem: Breast-feeding - Ineffective Goal: Effective breast-feeding Outcome: Progressing as expected Awa Marquez RN [facility] 2022-11-09 10:19:53 Formatting of this n ote is different from the original. Patient: Dany James Procedure Summary Date: 11/09/22 Room / Location: Anesthesia Start: 0122 Anesthesia Stop: 1004 Procedure: CENTRAL NEURAXIAL BLOCK Diagnosis: Scheduled Providers: Responsible Provider: Juaquin Daniel MD Anesthesia Type: General, Epidural ASA Status: 3 Anesthesia Type: No value filed. Last vitals BP 106/67 (11/09/2230) Temp Pulse 84 (11/09/22929) Resp SpO2 99 % (11/09/22929) There were no known notable events for this encounter. Anesthesia Post Evaluation Patient location during evaluation: floor Patient participation: complete - patient participated Level of consciousness: awake and alert Pain management: satisfactory to patient Airway patency: patent Cardiovascular status: acceptable and blood pressure returned to baseline Respiratory status: acceptable Hydration status: acceptable AN-ANESTHESIOLOGY ANESTHESIOLOGIST [facility] 2022-11-09 05:11:24 Formatting of this n ote might be different from the original. Intrapartum Progress Note 11/09/2022 5:11 AM Subjective: Patient has no complaints Objective: Vitals last 24 hours: Temp: [36.9 ?C (98.4 ?F)-37.1 ?C (98.7 ?F)] 36.9 ?C (98.4 ?F) Pulse: [73-114] 82 Resp: [16-20] 18 BP: (90-120)/(50-75) 114/65 Intake/Output : I/O this shift: In: 1048.2 Out: - No intake/output data recorded. Assessment Active movement: Yes Mode: EFM Uterine Activity: Mode: [place] Contractions (number / 10 minute): 4 Contraction duration (seconds): 50-90 Contraction quality: Mild Resting tone: Soft Membrane Status Membrane status: Artificial Rupture date: 11/09/22 Rupture time: 0408 Amniotic fluid color: Clear;[place] Cervical Exam 6 / 90 % / -2 Assessment/Plan: Dany James is a 22 year old at 38w0d OB Assessment: IOL (ICP), GBS OB Plan: s/p FB, Pit@2015, PCN Additional Comments/Detail: Pt was having variables, repositioned, now having earlies Ripening Agent: Oxytocin Talita Bolton MD OG-OBSTETRICS & GYNECOLOGY [facility] 2022-11-09 00:54:21 Formatting of this n ote is different from the original. Name/ MRN / Age / Gender: Dany James, [id number] 21 year old female BMI: Estimated body mass index is 31.41 kg/m? as calculated from the following: Height as of 11/08/22: 1.626 m (5' 4"). Weight as of 11/08/22: 83 kg (183 lb). Allergies: Patient has no known allergies. Last Vitals: BP Readings from Last 1 Encounters: 11/09/22 107/63 Pulse Readings from Last 1 Encounters: 11/09/22 95 SpO2 Readings from Last 1 Encounters: 11/09/22 99% Date of Surgery: 08/23/2021 Surgeon: Roque Watts MD Procedure: CENTRAL NEURAXIAL BLOCK OR Location: [facility] OR LOCATION Anesthesia Preop Eval (physical exam) Copied forward and updated from: 08/23/21 Anesthesia Preop: Chart Review and [id number] [facility] Communication: PONV Risk Factors: female and non-smoker Anesthesia History Anesthesia History Negative (-) Hx of anesthetic complications (-) Hx of PONV (-) Fam hx of anesthetic complications (-) Hx of awareness during surgery (-) Hx of malignant hyperthermia (-) Hx of difficult airway (-) Pt reports no hx of difficult airway (-) Hx of difficult IV access Previous Anesthetics/Airways Cardiovascular Negative Cardiac ROS Comments: 03/09/2021 ECG Sinus tachycardia Otherwise normal ECG When compared with ECG of 18-NOV-2019 09:46, No significant change has occurred 03/09/2021 ED Visit (X1 hour) DX: Chest pain, unspecified type. Anxiety ER Note: Pt c/o CP. Incident happened at work that scared her. She had intermittent pain since. When her pain comes on it is a throbbing chest pain similar to her previous anxiety type pains. Her pain was completely resolved with Toradol in the ER. CBC chemistry and D-dimer are all normal. EKG and telemetry are sinus rhythm. 12/08/2019 TTE Interpretation Summary EF 55-60% There is no comparison study available. The study was diagnostic quality. Left ventricular systolic function is normal. Diastolic function is normal. The right ventricle is normal in size and function. Right ventricular systolic pressure is 20-25 mmHg. 12/06/2019 Seen by Cardiology for CP. Suspected musculoskeletal. Pulmonary Negative Pulmonary ROS (-) Asthma (-) Shortness of breath Neuro/Musculoskeletal Comments: Cerebellopontine angle tumor Neurosarcoidosis - Dx 08/2021 after episode of severe headache, R unilateral ear and eye pain - Was scheduled for craniotomy resection in August 2021 but aborted due to head lice - Followed by Neuro, Rheumatology and MFM - As of 2021, mass effect and hematoma have decreased with progression of "plaque-like enhancement" suggestive of sarcoidosis or other inflammatory disorder - Pt endorses headache on admission, unchanged from baseline, does not desire medication - Plan:?Continue to f/u with neurosurgery after delivery, per note, planning to repeat MRI in 2-3 months 08/17/2021 CT Head IMPRESSION The hyperdense lesion in the right cerebellopontine angle [...] resolution is recommended to exclude an underlying mass. Of note, no mass was present on the MRI brain dated 03/24/2019. 08/16/2021 Normal cerebral angiogram no evidence of aneurysms or fistula. 08/15/2021 MR Brain IMPRESSION Acute right cerebellopontine angle hemorrhage with mass effect on the right ventral ebony. Serpiginous enhancement is seen superiorly. Recommend conventional cerebral angiogram to exclude underlying vascular malformation. 08/14/2021 ED to Hosp Admission (X4 days) Admission Diagnosis: right cerebellopontine angle lesion Discharge Diagnosis: same 08/14/2021 ED Visit (X3 hours) Other headache syndrome (Primary) Cerebellopontine angle tumor Migraine without status migrainosus, not intractable, unspecified migraine type H/o: Acute midline low back pain without sciatica. Acute bilateral thoracic back pain. ? (-) TIA (-) CVA (+) Headaches, migraines (-) Seizures (-) Syncope (+) Psychiatric history (Panic attacks, adjustment insomnia, depression ) and other and depression (+) Anxiety (-) Scoliosis (-) Spinal Cord injury (+) Obesity GI/Hepatic Comments: Ongoing nausea, no vomiting for one week (08/15/2021) 10/16/2020 CT Abdomen IMPRESSION Redemonstrated enhancing focal lesions within the liver measuring 2.4 and 1.6 cm with persistent contrast uptake on the 20 minute delayed phase similar to the surrounding liver parenchyma, consistent with focal nodular hyperplasia. (+) GERD (+) Liver disease Hematology Comments: 08/16/2021 WBC 12.08?High? 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 ? IOL - Pt reports irregular contractions, denies vaginal bleeding, leakage of fluid and decreased movement - SVE: 05/01/3 - Contractions (number / 10 minute): q2-3min - Plan: induction of labor with hernandes balloon and pitocin titration due to ICP ? ICP - Dx based on symptoms and bile acids: 36 - Pt reports bilateral hand itchiness starting 11/05/2022 - H/o ICP in previous - Not on medication ? 09/24/22 09:43 11/05/22 11:31 Bile Acids 8 36 (H) ALTv 24 24 AST(SGOT) 28 27 ? GBS (+) - PCN intrapartum ? Cerebellopontine angle tumor Neurosarcoidosis - Dx 08/2021 after episode of severe headache, R unilateral ear and eye pain - Was scheduled for craniotomy resection in August 2021 but aborted due to head lice - Followed by Neuro, Rheumatology and MFM - As of 2021, mass effect and hematoma have decreased with progression of "plaque-like enhancement" suggestive of sarcoidosis or other inflammatory disorder - Pt endorses headache on admission, unchanged from baseline, does not desire medication - Plan:?Continue to f/u with neurosurgery after delivery, per note, planning to repeat MRI in 2-3 months ? Anxiety/Depression - Pt reports h/o anxiety and depression > 2 yrs ago - Denies recent symptoms - Reports stable mood, denies SI/HI on admission - Reassess ? Antepartum course reviewed - 1 h 113, sero negative, Rimmune, VZVimmune, HPV immune, A positive/IAT negative, GBS positive, Pap NILM 01/2020 - H/H, plt: 9.2 / 30.3, 271 on 10/22/2022 - PP control plan: undecided - [facility] ? Fetus - Presentation on admission: cephalic - Anterior placenta - EFW: 3190 g, 48%tile - FHT reactive and reassuring - Normal anatomy scan Pediatric Pediatric N/A N/A Preoperative Medication Instructions Continue taking all prescribed medications except: RODO inhibitors, ARBs, diuretics, all oral diabetes medications Anticoagulant Therapy: Defer to surgeons Insulin: Take 1/2 dose the night prior to surgery. Hold on DOS. Phentermine: Alert [facility] anesthesiologist SGLT2 Inhibitors: "gliflozins" to be held for 3 days prior to elective surgeries MAC Cases: Continue taking RODO inhibitors and ARBs ASA Classification ASA: 3 Current Medications: No current facility-administered medications for this visit. No [...] mL IV Infusion TITRATE 119 mL/hr at 11/08/22 2241 Rate Change at 11/08/22 2241 lactated ringers IV infusion 500 mL 500 mL IV Infusion PRN - SEE INSTRUCTIONS lidocaine 1% (PF) (XYLOCAINE) injection 0.3 mL 0.3 mL Infiltration PRN - SEE INSTRUCTIONS lidocaine 1% (XYLOCAINE) 10 mg/mL (1 %) injection 50 mL 50 mL Infiltration PRN - SEE INSTRUCTIONS oxytocin (PITOCIN) 30 units in NS 500 mL IV infusion 2-40 jill-units/min IV Infusion TITRATE 8 mL/hr at 11/08/223 8 jill-units/min at 11/08/222242 penicillin GK 3 [...] IF NOT ALREADY DONE SO Anesthesia Physical Exam General no apparent distress and alert and oriented x 3 Neuro/Psych neurological Nonfocal Dental no notable dental hx Abdominal GI exam normal (+) abdomen soft and benign Airway Mallampati score:III TM distance:> 5 cm Neck ROM: full Mouth opening:normal (+) Normal facies Tenderness to posterior neck on extension, no radicular symptoms. Extremity Normal extremity Pulmonary pulmonary exam normal and bilateral clear to auscultation Other Cardiovascular cardiovascular exam normalRhythm:Regular Rate: Normal (-) no murmur and peripheral edema Anesthesia Plan ASA Status: 3 Plan discussed during pre-op evaluation: General, Epidural, Spinal and CSE Anesthetic plan on DOS: General and Epidural Anesthesia plan discussed with: patient or sales representative door to door Post-Operative Analgesia: routine analgesia & antiemetics Recovery Plan: LDR Additional comments: AN-ANESTHESIOLOGY ANESTHESIOLOGIST [facility] 2022-11-09 00:12:34 Formatting of this n ote might be different from the original. Intrapartum Progress Note 11/09/2022 12:12 AM Subjective: Patient complains of pain with contractions Objective: Vitals last 24 hours: Temp: [36.9 ?C (98.4 ?F)-37.1 ?C (98.7 ?F)] 36.9 ?C (98.4 ?F) Pulse: [82-114] 82 Resp: [16-20] 20 BP: (102-117)/(58-75) 107/63 Intake/Output : No intake/output data recorded. No intake/output data recorded. Assessment Active movement: Yes Mode: EFM Uterine Activity: Mode: [place] Contractions (number / 10 minute): 4 Contraction duration (seconds): 40-60 Contraction quality: Mild Resting tone: Soft Membrane Status Membrane status: Intact Cervical Exam 4 / 50 % / -3 Assessment/Plan: Dany James is a 22 year old at 38w0d OB Assessment: IOL (ICP), GBS OB Plan: FB/Pit@2015, PCN Additional Comments/Detail: FB out. Pt desires epidural. Talita Bolton MD [facility] 2022-11-08 20:03:26 Formatting of this n ote might be different from the original. Problem: Intrapartum process (including labor pain) Goal: Absence of or reduction of complications of labor Outcome: Progressing as expected Goal: Able to cope with pain Outcome: Progressing as expected Goal: Adequate to move to next level of care Outcome: Progressing as expected Goal: Reduction in pain sensation Outcome: Progressing as expected [facility] 2022-11-08 13:22:41 Formatting of this n ote might be different from the original. 1224: Explained to patient, per Arturo Bowen NP, patient to go to [facility] for induction of labor. Patient without complaints, reports +FM. Patient verbalizes that she can leave work early. She will go home to get her bag and bring her children to her parents house and than go to the hospital. Josie Felder RN 11/08/2022 1:[address] RN [facility] 2022-11-08 12:01:17 Formatting of this n ote might be different from the original. Pt returning missed call from nurse. Please call back Manju Wiley [facility] 2022-11-08 11:21:20 Formatting of this n ote might be different from the original. Dany James is a 22 year old female is returning missed call from the nurse. Please callback. Thank you. Jennifer James [facility] 2022-11-08 08:52:10 Formatting of this n ote might be different from the original. Dany James is a 22 year old female Pt states the itching is getting worst at night, asking if her results can be looked at. Please call [phone] (home) lFor Pitt [facility] 2022-11-04 14:46:09 Formatting of this n ote might be different from the original. Spoke to patient regarding symptoms. Itching worse at night. Reports itching started Friday11/01/22 Advised with provider Renetta LOPEZ-C advised to have patient keep pn appt as schedule for tomorrow morning with high risk. Advised patient to inform high risk provider about itching symptoms for further testing. Patient verbalizes understanding. Patient reports +fm ER warnings/labor warnings reviewed with patient. Questions/concerns answered. Michelet Wisdom RN [facility] 2022-11-04 08:07:05 Formatting of this n ote might be different from the original. Dany James is a 22 year old female 37 wks 2 days Pt states her hands, feet and body started itching on Friday and gets worse at night. Hands and feet itch worse. Pt states last she had cholestasis and had to deliver early and that was a symptom. Please call pt at [phone] (home) Sondra Tate [facility] 2021-08-13 14:20:00 [facility] ([facility]) EMERGENCY PROVIDER REPORT REPORT#:[id number] REPORT STATUS: Signed DATE:08/13/21 TIME: 1420 PATIENT: DANY JAMES UNIT #: [id number] ROOM/BED: AGE: 21 SEX: F PCP PHYS: Columba Huber MD SERVICE AUTHOR: Ivan Valdovinos MD LOCATION: [facility] * ALL edits or amendments must be made on the electronic/computer document * HPI-Headache General Confirmed Patient Yes Patient Type New patient Initial Greet Date/Time 08/13/21 1404 Presentation Chief Complaint Headache Hx Obtained From Patient, Prior medical records Sudden in Onset? No Onset Occurred Chronic Symptom Duration Since onset Severity: Onset Moderate Free Text HPI Notes Free Text HPI Notes 21-year-old female presents for evaluation as a transfer from [facility] ED for headache. Patient reports symptoms began months ago, describes a sharp, right- sided parietal headache radiating to her eye and ear. Symptoms were worse today than usual so she presented to the outside ER. 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 Review of Systems ROS Statements All systems rev neg except as marked. Focused Review of Systems Constitutional Denies: Chills, Fever. Neurologic Reports: Headache. Denies: Focal weakness, Lightheaded, Numbness. Past Medical History - Adult Stated Complaint BEATTY WITH BRAIN MASS Allergies Coded Allergies: No Known Allergies (08/13/21) Review of Nursing Notes Rev avail, and agree Smoking status: Smoking status for patients 13 years old or older: Unknown,if ever smoked Physical Exam Vital Signs Vital Signs First Documented: Result Date Time Pulse Ox 99 08/13 1403 B/P 98/55 08/13 1403 B/P Mean 69 08/13 1403 O2 Delivery Room air 08/13 1403 Temp 37.1 08/13 1403 Pulse 84 08/13 1403 Resp 18 08/13 1403 Last Documented: Result Date Time Pulse Ox 99 08/13 1626 B/P 102/56 08/13 1626 B/P Mean 71 08/13 1626 O2 Delivery Room air 08/13 1626 Temp 37.2 08/13 162 Pulse 81 08/13 1626 Resp 18 08/13 1626 Review of Vital Signs Reviewed Focused PE General/Const General/Const Awake, Alert, No acute distress MS Head Head Atraumatic, Normocephalic Eyes Eyes Atraumatic, EOMI Ears/Nose/Throat Ears/Nose/Throat Atraumatic, Airway patent MS Neck Neck Supple, Full range of motion Resp/Chest Respiratory/Chest Breath sounds = bilat, No respiratory distress, No rales, No rhonchi, No wheezing, No stridor Cardiovascular Cardiovascular Heart rate NL, Regular rhythm, Heart sounds NL Abdomen/GI Abdomen/GI Soft, Non-tender, No distention Skin Skin Warm, Dry, Intact Neurologic Neurologic Speech NL, No motor deficits, CN II - XII intact Interpretation Diagnostics Lab Results Interpretation Considerations Reviewed prior records Lab Imaging Statement Outside laboratory radiographic studies reviewed and considered in the medical decision-making. Re-Evaluation MDM Free Text MDM Notes Free Text MDM Notes 21-year-old female presents for evaluation of headache with [...] discharge and follow-up. All questions answered. ED Course Medication(s) Ordered Medication(s) Ordered: Antihistamine Drugs Sig/Keena Start time Last Medication Dose Route Stop Time Status Admin Diphenhydramine HCl 25 MG X1ED STA 08/13 1430 DC 08/13 IV 08/13 1431 1443 Central Nervous System Agents Sig/Keena Start time Last Medication Dose Route Stop Time Status Admin Acetaminophen 1,000 MG X1ED STA 08/13 1428 DC 08/13 PO 08/13 1429 1442 Ketorolac 30 MG [...] 10 MG X1ED STA 08/13 1427 DC 08/13 IV 08/13 1428 1443 Ondansetron HCl 4 MG X1ED STA 08/13 1425 DC 08/13 IV 08/13 1426 1443 Consultation Consultation Referral/Consult Name Kaushik Sutherland MD Digester Capper Called Neurosurgery Requested Call Time 1431 Requested Call Date 08/13/21 Call Returned Call returned Call Returned Time 1436 Call Returned Date 08/13/21 Digester Capper Will see in office Free Text Consult Notes Outside imaging reviewed, CT finding is unlikely to be related to patient's headache and she can undergo MRI with and without contrast as an outpatient Patient Discharge Departure Vital Signs/Condition Vital Signs First Documented: Result Date Time Pulse Ox 99 08/13 1403 B/P 98/55 08/13 1403 B/P Mean 69 08/13 1403 O2 Delivery Room air 08/13 1403 Temp 37.1 08/13 1403 Pulse 84 08/13 1403 Resp 18 08/13 1403 Last Documented: Result Date Time Pulse Ox 99 08/13 1626 B/P 102/56 / 1626 B/P Mean 71 08/13 1626 O2 Delivery Room air 08/13 1626 Temp 37.2 08/13 1626 Pulse 81 08/13 1626 Resp 18 08/13 1626 All vital signs available at the time of this entry have been reviewed. Condition Stable Clinical Impression Clinical Impression Primary Impression: Headache Secondary Impressions: Brain mass Disposition Decision Discharge )( Discharged to Home Yes )( Time 1600 )( Date 08/13/21 Discharge/Care Plan Patient Instructions ED Brain Tumor, ED Headache Unspecified Additional Instructions Please follow-up with your PCP as soon as possible to schedule your MRI. 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 Recommend MRI of the brain with and without contrast for further evaluation. Referrals Provider Referral: Kaushik Sutherland MD Follow-Up: Call for appointment Address: [address] [place] [address] [address] [place] [address] Provider Group: PRIMARY CARE Follow-Up: 2-3 Days at 2023 RPT #:[id number] END OF REPORT [facility] 2021-08-13 12:07:00 [id number] [facility] [id number] [place] [id number] PATIENT NAME: DANY JAMES ADMIT DATE: 08/13/21 ACCOUNT NO: [id number] ROOM NO: AGE: 21 REPORT TYPE: eELECTROCARDIOGRAM SEX: F ADMITTING PHYSICIAN: ATTENDING PHYSICIAN: Order: [id number] Test Reason : (Not Selected) Test Date/Time Stamp: FriAug 13 2021 12:07:39 Blood Pressure : 114/072 mmHG Vent. Rate : 086 BPM Atrial Rate : 086 BPM P-R Int : 132 ms QRS Dur : 086 ms QT Int : 372 ms P-R-T Axes : 035 073 052 degrees QTc Int : 445 ms Normal sinus rhythm Normal ECG No previous ECGs available Confirmed by GUZMAN ROA MD ([id number]) on 08/20/2021 11:50:18 AM Referred By: Iesha Cast Confirmed by:GUZMAN ROA MD at 1150 PATIENT NAME: DANY JAMES [facility] 2021-08-13 12:02:00 [facility] ([facility]) EMERGENCY PROVIDER REPORT REPORT#:[id number] REPORT STATUS: Signed DATE:08/13/21 TIME:1202 PATIENT: DANY JAMES UNIT #: [id number] ROOM/BED: : 98 AGE: 21 SEX: F PCP PHYS: Dank Kwok MD SERVICE AUTHOR: Iesha Cast DO * ALL edits or amendments must be made on the electronic/computer document * HPI-Headache General Initial Greet Date/Time 08/13/21 0916 Presentation Chief Complaint Headache Sudden in Onset? No Severity: Onset Mild Free Text HPI Notes Free Text HPI Notes The patient is a 21-year-old female with no severe past medical history who is presenting with a headache. Of note, the patient has experienced a daily headache for several months. She denies experiencing alleviating or aggravating factors. This began while she was sitting at work today. She denies experiencing visual changes. It was associated with nausea and 1 episode of nonbilious, nonbloody emesis. No recent head trauma. Risk-Headache Risk Stratification Stroke Risk factors reviewed )( Subarachnoid Hemorrhage Risk factors reviewed )( IC Mass Lesion Risk factors reviewed Review of Systems ROS Statements All systems rev neg except as marked. Past Medical History - Adult Stated Complaint HEADACHE Allergies Coded Allergies: No Known Allergies (08/13/21) Physical Exam Vital Signs Vital Signs First Documented: Result Date Time Pulse Ox 100 08/13 914 B/P 118/74 08/13 914 B/P Mean 88 08/13 914 Temp 36.9 08/13 914 Pulse 77 08/13 914 Resp 18 08/13 914 O2 Delivery Room air 08/13 1118 Last Documented: Result Date Time Pulse Ox 100 08/13 1119 B/P 106/77 08/13 111 B/P Mean 86 08/13 1118 O2 Delivery Room air 08/13 1118 Pulse 80 08/13 1118 Resp 16 08/13 1118 Temp 36.9 08/13 914 Review of Vital Signs Reviewed Focused PE General/Const General/Const Awake, Alert, No acute distress, Well appearing MS Head Head Atraumatic, Normocephalic Eyes Eyes Atraumatic, PERRL, EOMI, No nystagmus Ears/Nose/Throat Ears/Nose/Throat Atraumatic, Airway patent, Mucous membranes moist, Pharynx NL MS Neck Neck Atraumatic, Supple, No meningismus Resp/Chest Respiratory/Chest Atraumatic, Breath sounds NL, Breath sounds = bilat, No respiratory distress Cardiovascular Cardiovascular Heart rate NL, Regular rhythm, Heart sounds NL, No gallop Abdomen/GI Abdomen/GI Atraumatic, Soft, Non-tender, McBurney's non-tender Skin Skin Atraumatic, Color NL, No rash, Warm Neurologic Neurologic Oriented X3, Speech NL, No motor deficits, No sensory deficits Interpretation Diagnostics Lab Results Interpretation Results Laboratory Tests 08/13/21931: [Embedded Image Not Available] Laboratory Tests: 08/14 931 Chemistry Sodium (134 - [...] (Auto) (20.5 - 51.1 %) 19.6 L Josephine % (Auto) (1.7 - 9.3 %) 6.8 Eos % (Auto) (0.0 - 6.0 %) 0.7 Baso % (Auto) (0.0 - 2.0 %) 0.1 Neut # (Auto) (1.8 - 7.6 K/mm3) 5.4 Lymph # (Auto) (0.6 - 3.2 K/mm3) 1.5 Josephine # (Auto) (0.3 - 1.1 K/mm3) 0.5 [...] (0 - 6 mi-IU/ML) < 1 Recent Impressions: CAT SCAN - CT HEAD/BRAIN W/O CONT 08/13 949 Report Impression - Status: SIGNED Entered: 08/13/2021 1009 IMPRESSION: 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 Recommend MRI of the brain with and without contrast for further evaluation. Impression By: Kaushik - SALUD FREEMAN M.D. ECG #1 Interpretation ECG Documented in MUSE Yes Date 08/13/21 Time 1207 Interpreted by ED physician PRIETO ECG Interpretation Normal rate, Normal sinus rhythm, No acute ischemic changes, No STEMI, Normal QRS Rate 86 Re-Evaluation MDM )( Re-Evaluation/Progress #1 Text/Dict Note The patient's imaging results were discussed with the patient. She will be transferred to another facility for higher level of care since we do not have neurosurgery on staff. Patient stable for transfer. Time of Re-Eval 1215 )( Re-Eval Status Improved ED Course Medication(s) Ordered Medication(s) Ordered: Central Nervous System Agents Sig/Keena Start time Last Medication Dose Route Stop Time Status Admin Morphine Sulfate 4 MG ONCE ONE 08/13 1145 DC / IV 08/13 1146 1138 Electrolytic, Caloric, And Yuliya Sig/Keena Start time Last Medication Dose Route Stop Time Status Admin Sodium Chloride 1,000 ML X1ED STA 08/13 0917 DC / IV 08/13 1017 0931 Gastrointestinal Drugs Sig/Keena Start time Last Medication Dose Route Stop Time Status Admin Metoclopramide HCl 10 MG ONCE ONE 08/13 0930 DC 08/13 IV 08/13 0931 0932 Patient Discharge Departure Vital Signs/Condition Vital Signs First Documented: Result Date Time Pulse Ox 100 08/13 0915 B/P 118/74 08/13 0915 B/P Mean 88 08/13 0915 Temp 36.9 08/13 0915 Pulse 77 08/13 0915 Resp 18 / 0915 O2 Delivery Room air 08/13 1119 Last Documented: Result Date Time Pulse Ox 100 08/13 1119 B/P 106/77 / 1119 B/P Mean 86 / 1119 O2 Delivery Room air 08/13 1119 Pulse 80 08/13 1119 Resp 16 08/13 1119 Temp 36.9 / 0915 All vital signs available at the time of this entry have been reviewed. Clinical Impression Clinical Impression Primary Impression: Headache Secondary Impressions: PERIPONTINE MASS Disposition Decision Transfer )( Request Time 1202 )( Request Date 08/13/21 Call Returned Time 1221 Spoke with: Attending physician Receiving [facility] Transfer Accepted Yes Accepted by: Dr. Sutherland at 1253 RPT #: [id number] END OF REPORT [facility]
--- NOTE | 2025-01-15 06:19 | ER ---
Nurse's Notes [facility] Name: Dany James Age: 24 yrs Sex: Female : 2000 Arrival Date: 01/15/2025 Time: 03:09 Bed 4 Private MD: Diagnosis: Nontraumatic intracranial hemorrhage, unspecified;Headache;Nausea with vomiting, unspecified Presentation: 01/15 03:15 Chief complaint: Patient states: PT STATES SUDDEN ONSET OF HEADACHE AND br2 NAUSEA/VOMITING. PT CURRENTLY HAS A "BRAIN TUMOR". Coronavirus screen: Client denies travel out of the [place] in the last 14 days. Ebola Screen: Patient denies exposure to infectious person. Initial Sepsis Screen: Does the patient meet any 2 criteria? No. Patient's initial sepsis screen is negative. Does the patient have a suspected source of infection? No. Patient's initial sepsis screen is negative. Risk Assessment: Do you want to hurt yourself or someone else? Patient reports no desire to harm self or others. Onset of symptoms was January 15, 2025 at 01:00. 03:15 Method Of Arrival: EMS: [facility] br2 03:15 Acuity: SRIDEVI 3 br2 07:24 Acuity: SRIDEVI 2 iw Triage Assessment: 03:17 General: Appears uncomfortable, Behavior is calm, cooperative. Pain: Complains of pain br2 in face Pain currently is 9 out of 10 on a pain scale. GI: Reports nausea, vomiting. Historical: - Allergies: 03:17 No Known Allergies; br2 - PMHx: 03:17 Benign Tumor; br2 - PSHx: 03:17 Cholecystectomy; br2 - Immunization history:: Adult Immunizations up to date. - Infectious Disease History:: Denies. - Social history:: Smoking status: Patient denies any tobacco usage or history of. Patient/guardian denies using alcohol, street drugs. Screenin:19 [facility] ED Fall Risk Assessment (Adult) History of falling in the last 3 months, mf3 including since admission No falls in past 3 months (0 pts) Confusion or Disorientation No (0 pts) Intoxicated or Sedated No (0 pts) Impaired Gait No (0 pts) Mobility Assist Device Used No (0 pt) Altered Elimination No (0 pt) Score/Fall Risk Level 0 - 2 = Low Risk. Abuse screen: Denies threats or abuse. Denies injuries from another. Nutritional screening: No deficits noted. Tuberculosis screening: No symptoms or risk factors identified. Never had TB. Assessment: 03:19 General: Appears in no apparent distress. comfortable, Behavior is calm, cooperative, mf3 appropriate for age. Pain: Complains of pain in face Pain currently is 8 out of 10 on a pain scale. Neuro: Level of Consciousness is awake, alert, obeys commands, Oriented to person, place, time, situation. Cardiovascular: Capillary refill < 3 seconds. Respiratory: Airway is patent Trachea midline Respiratory effort is even, unlabored. GI: Abdomen is flat. : No signs and/or symptoms were reported regarding the genitourinary system. Derm: Skin is intact, is healthy with good turgor, Skin is pink, warm \\T\\ dry. normal. 04:21 Reassessment: Patient appears in no apparent distress at this time. Patient and/or cc6 family updated on plan of care and expected duration. Pain level reassessed. Patient is alert, oriented x 3, equal unlabored respirations, skin warm/dry/pink. Patient states symptoms have improved. 06:16 Reassessment: Patient and/or family updated on plan of care and expected duration. Pain cc6 level reassessed. Patient is alert, oriented x 3, equal unlabored respirations, skin warm/dry/pink. PT EDUCATED ON PLAN TO TRANSFER. 07:24 General: Appears in no apparent distress. Behavior is calm, cooperative. Pain: iw Complains of pain in top of head, forehead and right samaritan Pain currently is 8 out of 10 on a pain scale. Neuro: Level of Consciousness is awake, alert, obeys commands, Oriented to person, place, time, situation, Moves all extremities. Full function Reports headache in right parietal area, occipital area, numbness in right eye and right cheek. Neuro: Denies weakness in right arm and right leg. Cardiovascular: Patient's skin is warm and dry. Respiratory: Airway is patent Trachea midline Respiratory effort is even, unlabored, Respiratory pattern is regular, symmetrical. GI: Abdomen is non-distended, Reports vomiting. Derm: Skin is intact, is healthy with good turgor, Skin is pink, warm \\T\\ dry. normal. 08:03 Reassessment: Attempted to call report, no answer. ph 08:15 Reassessment: Patient appears in no apparent distress at this time. Patient and/or ph family updated on plan of care and expected duration. Pain level reassessed. Patient is alert, oriented x 3, equal unlabored respirations, skin warm/dry/pink. Report called to SONIA Farfan at [facility], awaiting EMS for transport. 09:15 Reassessment: Patient appears in no apparent distress at this time. Patient and/or iw family updated on plan of care and expected duration. Pain level reassessed. Patient is alert, oriented x 3, equal unlabored respirations, skin warm/dry/pink. Vital Signs: 03:15 BP 119 / 76; Pulse 84; Resp 18 S; Temp 98.3(O); Pulse Ox 98% on R/A; Weight 65.77 kg; br2 Height 5 ft. 4 in. ; Pain 9/10; 04:20 BP 100 / 66; Pulse 90; Resp 17; Temp 98.3; Pulse Ox 99% ; cc6 05:00 BP 104 / 57; Pulse 89; Resp 17; Pulse Ox 95% ; cc6 05:30 BP 109 / 73; Pulse 92; Resp 17; Pulse Ox 98% on R/A; cc6 06:00 BP 109 / 68; Pulse 92; Resp 18; Pulse Ox 99% on R/A; cc6 07:30 BP 128 / 73; Pulse 103; Resp 16; Pulse Ox 100% on R/A; iw 08:00 BP 115 / 68; Pulse 104; Resp 16; Pulse Ox 98% on R/A; Pain 6/10; iw 08:57 BP 100 / 65; Pulse 104; Resp 18; Pulse Ox 99% on R/A; af3 09:02 BP 100 / 63; Pulse 97; Resp 16; Temp 100.7; Pulse Ox 100% on R/A; iw 03:15 Body Mass Index 24.89 (65.77 kg, 162.56 cm) br2 03:15 Pain Scale: Adult br2 08:00 Pain Scale: Adult iw Rhame Coma Score: 03:19 Eye Response: spontaneous(4). Motor Response: obeys commands(6). Verbal Response: mf3 oriented(5). Total: 15. 04:20 Eye Response: spontaneous(4). Motor Response: obeys commands(6). Verbal Response: cc6 oriented(5). Total: 15. 08:06 Eye Response: spontaneous(4). Motor Response: obeys commands(6). Verbal Response: ph oriented(5). Total: 15. NIH Stroke Scale Scores: 07:30 NIHSS Score: 1 iw 08:30 NIHSS Score: 1 iw ED Course: 03:13 Patient arrived in ED. ms3 03:13 David Garcia DO is Attending Physician. ms3 03:17 Triage completed. br2 03:19 Renata Briggs, RN is Primary Nurse. mf3 03:19 Patient has correct armband on for positive identification. Bed in low position. Call mf3 light in reach. Side rails up X2. Provided Education on: pt educated on poc. 03:19 No provider procedures requiring assistance completed. Inserted saline lock: 20 gauge mf3 in left antecubital area, using aseptic technique. Blood collected. Flushed with 10 mL NS. 03:43 CT Head Brain wo Cont In Process Unspecified. EDMS 06:18 Initiated transfer with [place] at [facility]. rv1 07:[address] Jakob Del Toro accepted pt to [facility] [place] 0734 admin approval Angie Pool to sp [facility] 7th floor bed [phone]. [phone] called [facility] For transfer talked to Vania. 07:29 Arm band placed on. iw 07:52 Primary Nurse role handed off by Renata Briggs, RN iw 07:52 Manju Ricketts, SONIA is Primary Nurse. iw 08:06 Patient transferred, IV remains in place. ph Administered Medications: 03:36 Drug: metoCLOPramide IVP 10 mg IVP once; over 1 to 2 minutes Route: IVP; Site: left mf3 antecubital; 04:22 Follow up: Response: No adverse reaction cc6 03:36 Drug: Decadron - Dexamethasone IVP 10 mg IVP once Route: IVP; Site: left antecubital; 3 04:21 Follow up: Response: No adverse reaction cc6 03:36 Drug: Ketorolac IVP 10 mg 10 mg IVP once Route: IVP; Site: left antecubital; 3 04:21 Follow up: Response: No adverse reaction cc6 09:02 Drug: Acetaminophen PO 650 mg PO once Route: PO; iw 09:15 Follow up: Response: No adverse reaction iw Medication: 03:19 VIS not applicable for this client. mf3 Outcome: 06:19 ER care complete, transfer ordered by . ms3 09:19 Transferred by [facility] to [facility], Transfer iw form completed. X-rays sent w/ patient. Note: Butts 09:19 Condition: stable 09:19 Discharge instructions given to patient, family, Instructed on the need for transfer, Demonstrated understanding of instructions, 09:20 Patient left the ED. NIH Stroke Scale - NIH Stroke Score Date: 01/15/2025 Time: 07:30 Total Score = 1 10. Dysarthria (speech clarity - read or repeat words) - 0(Normal) 11. Extinction and Inattention (visual/tactile/auditory/spatial/personal) - 0(No abnormality) 1a. Level of Consciousness (LOC) - 0(Alert) 1b. Level of Consciousness (LOC) (Month \\T\\ Age) - 0(Both) 1c. LOC Commands (Open \\T\\ Closes Eyes/Ferris Wheel Attendant) - 0(Both) 2. Best Gaze (Lateral Gaze Paresis) - 0(Normal) 3. Visual Field Loss - 0(No visual loss) 4. Facial Palsy - 0(Normal) 5a. Left Arm: Motor (10-second hold) - 0(No drift) 5b. Right Arm: Motor (10-second hold) - 0(No drift) 6a. Left Leg: Motor (5-second hold - always test supine) - 0(No drift) 6b. Right Leg: Motor (5-second hold - always test supine) - 0(No drift) 7. Limb Ataxia (finger/nose \\T\\ heel/das - test with eyes open) - 0(Absent) 8. Sensory Loss (pinprick arms/legs/face) - 1(Mild to moderate loss) 9. Best Language: Aphasia (description/naming/reading) - 0(No aphasia) Initials: NIH Stroke Scale - NIH Stroke Score Date: 01/15/2025 Time: 08:30 Total Score = 1 10. Dysarthria (speech clarity - read or repeat words) - 0(Normal) 11. Extinction and Inattention (visual/tactile/auditory/spatial/personal) - 0(No abnormality) 1a. Level of Consciousness (LOC) - 0(Alert) 1b. Level of Consciousness (LOC) (Month \\T\\ Age) - 0(Both) 1c. LOC Commands (Open \\T\\ Closes Eyes/Ferris Wheel Attendant) - 0(Both) 2. Best Gaze (Lateral Gaze Paresis) - 0(Normal) 3. Visual Field Loss - 0(No visual loss) 4. Facial Palsy - 0(Normal) 5a. Left Arm: Motor (10-second hold) - 0(No drift) 5b. Right Arm: Motor (10-second hold) - 0(No drift) 6a. Left Leg: Motor (5-second hold - always test supine) - 0(No drift) 6b. Right Leg: Motor (5-second hold - always test supine) - 0(No drift) 7. Limb Ataxia (finger/nose \\T\\ heel/das - test with eyes open) - 0(Absent) 8. Sensory Loss (pinprick arms/legs/face) - 1(Mild to moderate loss) 9. Best Language: Aphasia (description/naming/reading) - 0(No aphasia) Initials: iw Signatures: Dispatcher [employer] EDMS Crystal Barragan Irene, RN RN iw Moni Hawkins RN RN ph David Garcia, DO DO ms3 Alexandre, Tricia rv1 Amaya Lee RN RN br2 Deborah Lara RN RN af3 Irene Bills, RN RN cc6 Renata Briggs RN RN mf3 Corrections: (The following items were deleted from the chart) 06:20 06:16 Reassessment: Patient and/or family updated on plan of care and expected cc6 duration. Pain level reassessed. Patient is alert, oriented x 3, equal unlabored respirations, skin warm/dry/pink. cc6
--- NOTE | 2025-01-15 06:42 | RAD REPORT ---
ADDENDUM #1 Addendum: Given history of recent reported meningioma resection and sudden headache, acute extra-axia l hemorrhage is favored. Dr. Westbrook discussed these critical findings with Dr. David Garcia via telephone at approximately 07:11 hours EST on 01/15/2025. Electronically signed by: Arcenio Westbrook MD 01/15/2025 06:25 AM CDT RP End of Addendum PROCEDURE: CT Head Without Intravenous Contrast CLINICAL INDICATION: The patient is 24 years old and is Female; Meningioma, headache. TECHNIQUE: Axial computed tomography images of the head/brain without intravenous contrast. Sagittal and coron al reformatted images were created and reviewed. This CT exam was performed using one or more of the following dose reduction techniques: automated exposure control, adjustment of the mA and/or kV according to patient size, and/or use of iterative reconstruction technique. COMPARISON: None. FINDINGS: BRAIN: Hyperdense, lentiform, extra-axial mass/collection demonstrated in the right cerebellopontin e angle, measuring approximately 2.8 x 1 x 1.6 cm, contacting the right anterior lateral margin of the ebony. No associated hyperostosis of the underlying bone. No asymmetric widening of the right acou stic meatus. No abnormal mass effect. No appreciable cerebral edema. No transtentorial herniation. No focal butts-white matter differentiation abnormality. MIDLINE SHIFT: No midline shift. VENTRICLES: Unremarkable No ventriculomegaly. BONES/JOINTS: Remote right cerebellar craniectomy changes with mesh overlying the craniectomy site. No fracture of the calvarium or visualized facial bones. SOFT TISSUES: Unremarkable SINUSES: No masses, bony erosion or evidence of acute sinusitis. MASTOID AIR CELLS: Unremarkable as visualized. No mastoid effusion. AUDITORY SYSTEM: Partial opacification of the bilateral internal auditory canals. IMPRESSION: 1. Hyperdense, lentiform, extra-axial mass/collection demonstrated in the right cerebellopontine an gle, measuring approximately 2.8 x 1 x 1.6 cm, contacting the right anterior lateral margin of the ebony. No associated hyperostosis of the underlying bone. No asymmetric widening of the right acoustic meatus. Possible extra-axial hemorrhage, versus partially calcified meningioma or other hyperdense extra-axial neoplasm. Comparison with prior exams would be beneficial. Recommend further characteriza tion by MRI brain with and without contrast. 2. Remote right cerebellar craniectomy changes with mesh overlying the craniectomy site. Surgical h istory correlation recommended. Electronically signed by: Arcenio Westbrook MD 01/15/2025 05:56 AM CDT RP Due to temporary technical issues with the PACS/[employer] reporting system, reports are being darvin d by the in-house radiologist without review as a courtesy to ensure prompt reporting the interpreting radiologist is fully responsible for the content of the report. Transcribed Date/Time: 01/15/2025 6:42 AM
[2025-01-15 07:11] LABS: Absolute Lymphocytes (CBC) 0.2 K/uL (0.7-4.9); Hematocrit 38.9 % (36.0-45.0); Hemoglobin 13.4 g/dL (12.0-15.0); MCH 29.6 pg (27.0-35.0); MCHC 34.3 g/dL (32.0-36.0); MCV 86.3 fL (80-100); MPV 7.4 fL (7.6-11.3); Nucleated RBC Absolute Count 0.0 (0-0); Nucleated Red Blood Cells % 0.0 % (0-0); RBC Red Blood Cell Count 4.51 M/uL (3.86-4.86); White Blood Count 12.90 thou/uL (4.3-10.9)
[2025-01-15 07:57] LABS: PT Prothrombin Time 13.2 SECONDS (10-13.0); Protime INR 1.17
[2025-01-15 08:08] LABS: ALT/SGPT 34.0 U/L (13-56); AST/SGOT 21.0 U/L (15-37); Albumin 3.9 g/dL (3.4-5.0); Albumin/Globulin Ratio 1.2 (1.1-1.8); Alkaline Phosphatase 102.0 U/L (45-117); Anion Gap 7.6 mEq/L (5.0-15.0); BUN Blood Urea Nitrogen 14.0 mg/dL (7-18); Globulin 3.2 g/dL (2.3-3.5); Glucose Level 113.0 mg/dL (74-106); Potassium 3.6 mEq/L (3.5-5.1)
[2025-01-15] MEDS ORDERED: ACETAMINOPHEN 325 MG TABLET ONE (08:49)
--- NOTE | 2025-01-15 09:21 | EDPHYS ---
Physician Documentation [facility] Name: Dany James Age: 24 yrs Sex: Female : 2000 Arrival Date: 01/15/2025 Time: 03:09 Bed 4 Private MD: ED Physician David Garcia HPI: 01/15 06:20 This 24 yrs old Female presents to ER via EMS with complaints of Headache. ms3 06:20 24-year-old female with past medical history of meningioma presents to the emergency ms3 department via [facility] for headache began at 1 AM. Patient endorses nausea and vomiting. Patient states her headache is a 9.5/10. Patient states the headache is worse with light and noise. EMS notes they gave patient 4 mg Zofran secondary to vomiting.. Historical: - Allergies: 03:17 No Known Allergies; br2 - PMHx: 03:17 Benign Tumor; br2 - PSHx: 03:17 Cholecystectomy; br2 - Immunization history:: Adult Immunizations up to date. - Infectious Disease History:: Denies. - Social history:: Smoking status: Patient denies any tobacco usage or history of. Patient/guardian denies using alcohol, street drugs. ROS: 06:20 Constitutional: Negative for fever, and chills. Cardiovascular: Negative for chest ms3 pain, and palpitations. Respiratory: Negative for shortness of breath, cough, wheezing, and pleuritic chest pain, 06:20 Abdomen/GI: Positive for nausea and vomiting, 06:20 Neuro: Positive for headache, Exam: 06:20 Constitutional: This is a well developed, well nourished patient who is awake, alert, ms3 and in no acute distress. Cardiovascular: Regular rate and rhythm with a normal S1 and S2. No gallops, murmurs, or rubs. Normal PMI, no JVD. No pulse deficits. Respiratory: Lungs have equal breath sounds bilaterally, clear to auscultation and percussion. No rales, rhonchi or wheezes noted. No increased work of breathing, no retractions or nasal flaring. Abdomen/GI: Soft, non-tender, with normal bowel sounds. No distension or tympany. No guarding or rebound. No evidence of tenderness throughout. Skin: Warm, dry with normal turgor. Normal color with no rashes, no lesions, and no evidence of cellulitis. Neuro: Awake and alert, GCS 15, oriented to person, place, time, and situation. Cranial nerves II-XII grossly intact. Motor strength 5/5 in all extremities. Sensory grossly intact. Cerebellar exam normal. Normal gait. Vital Signs: 03:15 BP 119 / 76; Pulse 84; Resp 18 S; Temp 98.3(O); Pulse Ox 98% on R/A; Weight 65.77 kg; br2 Height 5 ft. 4 in. ; Pain 9/10; 04:20 BP 100 / 66; Pulse 90; Resp 17; Temp 98.3; Pulse Ox 99% ; cc6 05:00 BP 104 / 57; Pulse 89; Resp 17; Pulse Ox 95% ; cc6 05:30 BP 109 / 73; Pulse 92; Resp 17; Pulse Ox 98% on R/A; cc6 06:00 BP 109 / 68; Pulse 92; Resp 18; Pulse Ox 99% on R/A; cc6 07:30 BP 128 / 73; Pulse 103; Resp 16; Pulse Ox 100% on R/A; iw 08:00 BP 115 / 68; Pulse 104; Resp 16; Pulse Ox 98% on R/A; Pain 6/10; iw 08:57 BP 100 / 65; Pulse 104; Resp 18; Pulse Ox 99% on R/A; af3 09:02 BP 100 / 63; Pulse 97; Resp 16; Temp 100.7; Pulse Ox 100% on R/A; iw 03:15 Body Mass Index 24.89 (65.77 kg, 162.56 cm) br2 03:15 Pain Scale: Adult br2 08:00 Pain Scale: Adult iw NIH Stroke Scale Scores: 07:30 NIHSS Score: 1 iw 08:30 NIHSS Score: 1 iw [place] Coma Score: 03:19 Eye Response: spontaneous(4). Motor Response: obeys commands(6). Verbal Response: mf3 oriented(5). Total: 15. 04:20 Eye Response: spontaneous(4). Motor Response: obeys commands(6). Verbal Response: cc6 oriented(5). Total: 15. 08:06 Eye Response: spontaneous(4). Motor Response: obeys commands(6). Verbal Response: ph oriented(5). Total: 15. MDM: 03:13 Medical Screening Exam initiated ms3 06:19 Differential diagnosis: intracerebral hemorrhage, migraine, neoplasm, subarachnoid ms3 bleed, tension headache, vasomotor headache. 06:20 Data reviewed: vital signs, nurses notes, radiologic studies, CT scan, and as a result, ms3 I will transfer patient. Consideration of Admission/Observation Will transfer patient. I considered the following discharge prescriptions or medication management in the emergency department Medications were administered in the Emergency Department. See MAR. Counseling: I had a detailed discussion with the patient and/or guardian regarding the historical points, exam findings, and any diagnostic results supporting the discharge/admit diagnosis, radiology results, the need to transfer to another facility, for higher level of care, [facility] does not immediately have the required specialist. Response to treatment: There is no appreciated change of the patient's symptoms at this time. ED course: Discussed radiology findings with patient. Patient wishes to go to [facility] where she has previously had brain surgery. [facility] transfer center contacted. 07:12 ED course: Discussed case with [facility] NSGY and he will consult on patient. Currently ms3 awaiting call back for splitter operator.. 07:34 ED course: Transfer delay- Awaiting [facility] transfer center. ms3 07:37 ED course: [facility] accepts patient without speaking to Dr Del Toro.. ms3 07:37 ED course: Patient to be transferred to [facility] for continuity of care. ms3 01/15 06:19 Order name: CBC with Diff ms3 01/15 06:19 Order name: CMP ms3 01/15 06:19 Order name: PT-INR ms3 01/15 07:21 Order name: CBC Smear Scan EDMS 01/15 03:14 Order name: CT Head Brain wo Cont; Complete Time: 07:08 ms3 01/15 07:18 Order name: Misc. Order: recollect blue \T\ green; Complete Time: 07:39 sp Administered Medications: 03:36 Drug: metoCLOPramide IVP 10 mg IVP once; over 1 to 2 minutes Route: IVP; Site: left mf3 antecubital; 04:22 Follow up: Response: No adverse reaction cc6 03:36 Drug: Decadron - Dexamethasone IVP 10 mg IVP once Route: IVP; Site: left antecubital; mf3 04:21 Follow up: Response: No adverse reaction cc6 03:36 Drug: Ketorolac IVP 10 mg 10 mg IVP once Route: IVP; Site: left antecubital; 3 04:21 Follow up: Response: No adverse reaction cc6 09:02 Drug: Acetaminophen PO 650 mg PO once Route: PO; iw 09:15 Follow up: Response: No adverse reaction iw Disposition Summary: 01/15/25 06:19 Transfer Ordered Notes: Transfer Location: [facility]-System ms3 Reason: Higher level of care ms3 Condition: Fair ms3 Problem: new ms3 Symptoms: are unchanged ms3 Accepting Physician: Dr Del Toro(01/15/25 09:20) iw Diagnosis - Nontraumatic intracranial hemorrhage, unspecified ms3 - Headache ms3 - Nausea with vomiting, unspecified ms3 Forms: - Medication Reconciliation Form ms3 - SBAR form ms3 NIH Stroke Scale - NIH Stroke Score Date: 01/15/2025 Time: 07:30 Total Score = 1 10. Dysarthria (speech clarity - read or repeat words) - 0(Normal) 11. Extinction and Inattention (visual/tactile/auditory/spatial/personal) - 0(No abnormality) 1a. Level of Consciousness (LOC) - 0(Alert) 1b. Level of Consciousness (LOC) (Month \T\ Age) - 0(Both) 1c. LOC Commands (Open \T\ Closes Eyes/Diesel Fleet Mechanic) - 0(Both) 2. Best Gaze (Lateral Gaze Paresis) - 0(Normal) 3. Visual Field Loss - 0(No visual loss) 4. Facial Palsy - 0(Normal) 5a. Left Arm: Motor (10-second hold) - 0(No drift) 5b. Right Arm: Motor (10-second hold) - 0(No drift) 6a. Left Leg: Motor (5-second hold - always test supine) - 0(No drift) 6b. Right Leg: Motor (5-second hold - always test supine) - 0(No drift) 7. Limb Ataxia (finger/nose \T\ heel/das - test with eyes open) - 0(Absent) 8. Sensory Loss (pinprick arms/legs/face) - 1(Mild to moderate loss) 9. Best Language: Aphasia (description/naming/reading) - 0(No aphasia) Initials: NIH Stroke Scale - NIH Stroke Score Date: 01/15/2025 Time: 08:30 Total Score = 1 10. Dysarthria (speech clarity - read or repeat words) - 0(Normal) 11. Extinction and Inattention (visual/tactile/auditory/spatial/personal) - 0(No abnormality) 1a. Level of Consciousness (LOC) - 0(Alert) 1b. Level of Consciousness (LOC) (Month \T\ Age) - 0(Both) 1c. LOC Commands (Open \T\ Closes Eyes/Diesel Fleet Mechanic) - 0(Both) 2. Best Gaze (Lateral Gaze Paresis) - 0(Normal) 3. Visual Field Loss - 0(No visual loss) 4. Facial Palsy - 0(Normal) 5a. Left Arm: Motor (10-second hold) - 0(No drift) 5b. Right Arm: Motor (10-second hold) - 0(No drift) 6a. Left Leg: Motor (5-second hold - always test supine) - 0(No drift) 6b. Right Leg: Motor (5-second hold - always test supine) - 0(No drift) 7. Limb Ataxia (finger/nose \T\ heel/das - test with eyes open) - 0(Absent) 8. Sensory Loss (pinprick arms/legs/face) - 1(Mild to moderate loss) 9. Best Language: Aphasia (description/naming/reading) - 0(No aphasia) Initials: Signatures: Dispatcher [employer] EDCrystal Adames Irene, RN RN iw David Garcia DO DO ms3 Amaya Lee RN RN br2 Renata Briggs RN RN mf3 Irene Bills RN cc6 Corrections: (The following items were deleted from the chart) 03:15 03:15 Head Brain Wo [id number] ordered. EDMS EDMS 07:37 06:19 Dr jack3 ms3 09:20 07:37 Dr Del Toro ms3 iw
[2025-01-15 09:25] VITALS: TEMP 98.3
[2025-01-15 09:36] LABS: Anisocytosis 1+; Blood Morphology Comment NOTED (NOT SEEN); Poikilocytosis 1+; Teardrop Cell 1+; White Blood Cell Scan OK (OK)
[2025-01-15 09:44] VITALS: BP 100/65; O2SAT 99
== END 2025-01-15 09:20 | disposition short-term general hospital (02) ==
LOC: ER 03:09
DX: I62.9 Nontraumatic intracranial hemorrhage, unspecified (principal); R11.2 Nausea with vomiting, unspecified; R29.701 NIHSS score 1; Z86.011 Personal history of benign neoplasm of the brain
CPT/HCPCS: 85025; 36415; 85610; 80053; 70450; 96375; 96374; 99285; J1885; J2765; J1100